=== PATIENT | male | born 1945 | race Caucasian/White ===

== ENCOUNTER → 2017-03-13 | Outpatient (CLI) | payer OTHER ==
[~2017-03-13] MED LIST: ASPCH81 PO; ATEN-173 PO; ATEN50TA8 PO; ATOR-26 PO; AUG0.05O4 TOP; BENZ100C84 PO; CHLO0.12 MT; CLOP1TAB15 PO; EZET10TA63 PO; GEMF600T3 PO; GLCSR500 PO; ISOS60TA25 PO; LANS30CA12 PO; NIAC1TAB59 PO; NTRGSL/4 UT
[2017-03-13 10:10] LABS: CHOLESTEROL/HDL RATIO 2.8
== END | disposition home or self-care (01) ==
LOC: C.LAB1850 08:20
PROVIDERS: ATTEND Internal Medicine Cardiovascular Disease
DX: E78.00 Pure hypercholesterolemia, unspecified (principal)

== ENCOUNTER 2024-02-07 18:43 | Inpatient (IN) ==
[2024-02-07 19:22] LABS: Hematocrit (blood only) 28.8 % (42.0-52.0); Hemoglobin 9.5 g/dl (14.0-18.0); Mean Corpuscular Hemoglobin 27.9 pg (25.0-34.0); Mean Corpuscular Volume 84.5 fL (80.0-100.0); Platelet Count 242 K/uL (130-400); Red Blood Count 3.41 M/uL (4.70-6.10); White Blood Count 9.85 K/ul (4.8-10.8)
[2024-02-07 19:41] LABS: Albumin Globulin Ratio 1.1 (0.9-2); Albumin Level 3.3 gm/dl (3.4-5.0); BUN Creatinine Ratio 28.2 (10-20); Bilirubin,Total 1.2 mg/dl (0.2-1.0); Creatinine Clr Calc Pharmacy 52.5 ml/min; Globulin 3.1 gm/dl (2.5-4.0); Magnesium 1.6 mg/dl (1.7-2.4); Potassium 4.8 mmol/L (3.5-5.1); Total Protein 6.4 gm/dl (6.0-8.3)
[2024-02-07 19:48] LABS: INR 1.3 (0.9-1.1); Partial Thromboplastin Ratio 1.2; Partial Thromboplastin Time 31 Seconds (21-31)
[2024-02-07 19:55] LABS: Basophils # (auto) 0.01 K/uL (0.00-0.20); Basophils % (auto) 0.1 %; Eosinophils # (auto) 0.08 K/uL (0.00-0.50); Eosinophils % (auto) 0.8 %; Immature Granulocytes # (auto) 0.05 K/uL (0.01-0.20); Immature Granulocytes % (auto) 0.5 %; Lymphocytes # (auto) 0.41 K/uL (1.20-3.40); Lymphocytes % (auto) 4.2 %; Monocytes # (auto) 0.19 K/uL (0.11-0.59); Monocytes % (auto) 1.9 %; Neutrophils # (auto) 9.11 K/uL (1.40-6.50); Neutrophils % (auto) 92.5 %
[2024-02-07 19:57] LABS: Appearance Urine Clear (Clear); Bacteria Urine Automated None Seen (None Seen); Bilirubin Urine 1+ (Negative); Blood Urine Negative (Negative); Cast Urine Automated 0-2 /lpf (0-2); Color Urine Dark Yellow; Epithelial Cell Urine Auto 0-2 /hpf (0-2); Glucose Urine UA Negative (Negative); Ketones Urine Trace (Negative); Leukocyte Esterase Urine 1+ (Negative); Nitrite Urine Negative (Negative); Protein Urine 1+ (Negative); Specific Gravity Urine 1.023 (1.000-1.030); Urobilinogen Urine Negative (Negative); WBC Urine Automated 0-5 /hpf (0-5); pH Urine 5.5 (4.5-7.5)
[2024-02-07 20:03] LABS: Troponin I High Sensitivity 771.2 pg/ml (0-20)
[2024-02-07] MEDS: SODIUM CHLORIDE 0.9% 1,000 ML IV ONE ×2 (20:22→22:08)
[2024-02-07] MEDS: methylPREDNISolone 125 MG/2 ML VIAL IV ONE (20:22)
[2024-02-07] MEDS: diphenhydrAMINE 50 MG/ML VIAL IV ONE (20:22)
[2024-02-07 20:26] LABS: Adenovirus PCR Not Detected (NotDetected); Bordetella parapertussis PCR Not Detected (NotDetected); Bordetella pertussis PCR Not Detected (NotDetected); Chlamydia pneumoniae PCR Not Detected (NotDetected); Coronavirus 229E PCR Not Detected (NotDetected); Coronavirus CoV-2 (COVID19)PCR Not Detected (NotDetected); Coronavirus HKU1 PCR Not Detected (NotDetected); Coronavirus NL63 PCR Not Detected (NotDetected); Coronavirus OC43PCR Not Detected (NotDetected); Human Metapneumovirus PCR Not Detected (NotDetected); Influenza A PCR Not Detected (NotDetected); Influenza B PCR Not Detected (NotDetected); Mycoplasma pneumoniae PCR Not Detected (NotDetected); Parainfluenza Virus 1 PCR Not Detected (NotDetected); Parainfluenza Virus 2 PCR Not Detected (NotDetected); Parainfluenza Virus 3 PCR Not Detected (NotDetected); Parainfluenza Virus 4 PCR Not Detected (NotDetected); Respiratory Syncytial VirusPCR Not Detected (NotDetected); Rhinovirus/Enterovirus PCR Not Detected (NotDetected)
[2024-02-07] MEDS: ONDANSETRON INJ 2 MG/ML 2 ML VIAL IV STA (20:36)
[2024-02-07] MEDS: ACETAMINOPHEN 1,000 MG/100 ML VIAL IV STA (20:38)
[2024-02-07] MEDS: OPTIRAY 320 100ml IV ONE (20:54)
[2024-02-07] MEDS: PIPERACILLIN/TAZOBACTAM 4.5 GM/100 ML BAG IV ONE (21:02)
--- NOTE | 2024-02-07 22:40 | CT Scan Report ---
Exam(s): CT ABDOMEN + PELVIS With Contrast IV Amt: optiray 320 94ml EXAM: CT Abdomen and Pelvis With Intravenous Contrast CLINICAL HISTORY: Reason for exam: septic, biliary stent, pancreatic CA. TECHNIQUE: Axial computed tomography images of the abdomen and pelvis with intravenous contrast. CTDI is 19 mGy and DLP is 931 mGy-cm. Automated exposure control was utilized for the study. A dose lowering technique was utilized adhering to the principles of ALARA. CONTRAST: Patient received optiray 320 94ml of IV contrast COMPARISON: CT abdomen pelvis 12/16/07. FINDINGS: Lung bases: Clear. No gross mass or pleural effusion. Liver: Innumerable hepatic hypodensities, largest 4.5 cm in the right lobe, nonspecific, probable metastatic disease. Pneumobilia, not unusual given that there is a biliary stent. No intrahepatic ductal dilatation. Gallbladder and bile ducts: Severe distended gallbladder, given biliary stent, cystic duct obstruction, acute cholecystitis or obstructed stent are not excluded. No ductal dilation. Pancreas: 3.2 cm mass of the pancreatic head, in keeping with history of pancreatic cancer. No ductal dilation, or acute pancreatitis. Spleen: Unremarkable. Adrenals: Unremarkable. Kidneys and ureters: No hydronephrosis. Stomach and bowel: Moderate, 6 cm focal wall thickening, cannot rule out obstructing mass at the hepatic flexure, axial series 3/139. Moderate fecal loaded right colon, could also be physiologic. There is also wall thickening in the distal colon, intermittent colitis is also in the differential considerations. No small bowel obstruction. Diverticulosis without diverticulitis. Appendix: Intraperitoneal space: No free air or fluid. Bones/joints: No acute fracture. Soft tissues: Fat-containing left inguinal hernia. Vasculature: No aortic aneurysm. Lymph nodes: Mildly prominent lymph nodes in the heber hepatis. Bladder: Mildly distended, wall thickening is nonspecific, may be artifact, cystitis not excluded. Reproductive: Moderate, nonspecific prostatomegaly. IMPRESSION: 1. Severe distended gallbladder, given biliary stent, cystic duct obstruction, acute cholecystitis or obstructed stent must be excluded. 2. Colonic obstruction at the hepatic flexure, concerning for an underlying mass. Cannot entirely rule out an intermittent colitis, as there is wall thickening in the distal colon. 3. Mass of the pancreatic head, hepatic metastasis, biliary stent, no CBD dilatation. Electronically signed by: Suyapa Jacobs M.D. 02/07/24 22:39 PM
--- NOTE | 2024-02-07 22:43 | XRay Report ---
Exam(s): XR CXR 1 VIEW EXAM: XR Chest, 1 View CLINICAL HISTORY: Reason for exam: Sepsis. TECHNIQUE: Frontal view of the chest. COMPARISON: Chest x-ray 02/03/24. FINDINGS: Lungs: Clear. No consolidation. Pleural space: No pneumothorax. Heart: No cardiomegaly. Mediastinum: Stable postsurgical change and atherosclerosis aortic arch. Bones/Soft Tissues: No acute abnormality. Tubes/Lines: Stable implanted catheter via the right chest, tip SVC. IMPRESSION: 1. No acute process, and no change. Electronically signed by: Suyapa Jacobs M.D. 02/07/24 22:42 PM
--- NOTE | 2024-02-08 00:24 | History & Physical Report ---
Date of Service February 08, 2024 Assessment & Plan (1) Severe sepsis: Plan: SIRS plus lactic acidosis Immunocompromised patient, history metastatic pancreatic cancer ongoing chemotherapy Possible sources: Biliary pathology, possible cholecystitis/cholangitis Aport Transient chest pain at the ER Possible ST elevation LA inferior leads on EKG ED provider in touch with securities attorney (Dr. Phillips). Presentation not true ACS as per discussion, recommend medical management for now. Feeder Operator recommends IV heparin if with further troponin elevation. hx CAD status post CABG moderate pulmonary hypertension hypertension, BP on the lower side hyperlipidemia, on statin Rx DM2 on oral medications, reasonable control as of recent hemoglobin A1c of 7.25 October 2023 Acute on chronic anemia, hemoglobin drop from baseline, no overt source of blee d, FOBT negative hx BPH past tobacco abuse PCU given borderline BP and abnormal EKG CS, Daptomycin, Zosyn Follow lactic acid response to careful IV hydration given history of valvular heart disease MRCP Re: Abnormal LFTs rule out choledocholithiasis GI consult re: abdominal pain, abnormal CT abdomen pelvis (ED provider already in touch with Dr. Montes who initially recommended transfer to tertiary center. [facility] GI specialist (Dr. Rivera) does not feel urgent transfer needed for ERCP as per communication with ED provider.) Follow troponin, TTE Anemia workup, transfuse PRBC if hemoglobin less than 8 and or for symptomatic anemia Basal bolus insulin adjusted for n.p.o. status, ISS BG goal 1 10-1 40 DVT prophylaxis. Lovenox subcu Full code Patient daughter requesting updates providers. Ms. Ebony Downing, contact #[phone]. Text document was generated using [employer] voice recognition software. It may contain grammatical or spelling errors. Kindly contact undersigned for clarification of any documentation item in question. History of Present Illness Chief Complaint: Fever, chills Primary Care Provider: Pedro Luis Bowens DO History obtained from patient, family, and records. Medical history significant for CAD status post CABG, moderate , pulmonary hypertension, hypertension, hyperlipidemia, DM2 on oral medications, chronic anemia (baseline hemoglobin 10-11), BPH, urolithiasis, past tobacco abuse. Patient has had epigastric discomfort somewhat worse with eating after outpatient EGD/EUS for pancreatic mass 3 weeks ago. 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 First dose of chemotherapy few days ago. This afternoon, patient had fever chills. Usual epigastric pain sometimes going to the chest. No cough or SOB. Denies black or bloody stools. Bilious emesis. No issues with Aport. Zosyn administered at the ER. Transient chest pain at the ER. 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 Allergies Allergy/AdvReac Type Severity Reaction Status Date / Time Iodinated Contrast Media Allergy Intermediate Rash Verified 02/03/24 12:55 levofloxacin Allergy Intermediate RASH Verified 02/03/24 12:55 lisinopril AdvReac Mild Cough Verified 02/03/24 12:56 Home Medications Medication Instructions Recorded Confirmed Type multivitamin (Multiple Vitamins 1 tab PO QPM 12/02/18 02/07/24 History tablet) atorvastatin 80 mg tablet 80 mg PO QPM 01/06/19 02/07/24 History cholecalciferol (vitamin D3) 50 2,000 units PO QAM 01/06/19 02/07/24 History mcg (2,000 unit) tablet clopidogrel 75 mg tablet 75 mg PO QAM 01/06/19 02/07/24 History ezetimibe 10 mg tablet 10 mg PO HS 01/06/19 02/07/24 History metformin 500 mg tablet 500 mg PO .COMPLEX 01/06/19 02/07/24 History nitroglycerin 0.4 mg sublingual 0.4 mg sublingual Q5M PRN Chest 01/06/19 02/07/24 History tablet Pain #1 tab ranolazine 1,000 mg 1,000 mg PO Q12H #180 tabs 01/06/19 02/07/24 History tablet,extended release,12 hr triamcinolone acetonide 0.1 % 1 appln topical BID PRN Rash 01/06/19 02/07/24 History topical cream tamsulosin 0.4 mg capsule 0.4 mg PO BID #180 caps 12/03/19 02/07/24 Rx fluticasone propionate 50 1 spray intranasal DAILY 03/16/20 02/07/24 History mcg/actuation nasal spray,suspension albuterol sulfate 90 mcg/actuation 2 inh inhalation Q6H PRN SOB 09/17/22 02/07/24 History breath activated powder inhaler atenolol 50 mg tablet 50 mg PO QAM 03/14/23 02/07/24 History pantoprazole 20 mg tablet,delayed 20 mg PO QAM 01/30/24 02/07/24 History release oxycodone-acetaminophen 5 mg-325 1 tab PO Q6H PRN pain #14 tabs 02/03/24 02/07/24 Rx mg tablet (Percocet) L.acidoph-L.rhamn-B.bifidum-B.long 1 tab PO DAILYBB 02/07/24 02/07/24 History 12.9 mg (2 billion cell) tablet, aspirin 81 mg tablet,delayed 81 mg PO QPM 02/07/24 02/07/24 History release cyanocobalamin (vitamin B-12) 1,000 mcg IM .EVERY 30 DAYS 02/07/24 02/07/24 History 1,000 mcg/mL injection solution docusate sodium 100 mg capsule 100 mg PO BID 02/07/24 02/07/24 History iron,carbonyl 65 mg-vitamin C 125 1 tab PO Q OTHER DAY 02/07/24 02/07/24 History mg tablet,delayed release (Vitron-C) isosorbide mononitrate 60 mg 120 mg PO QAM 02/07/24 02/07/24 History tablet,extended release 24 hr lidocaine-prilocaine 2.5 %-2.5 % 1 applic topical UD 02/07/24 02/07/24 History topical cream ondansetron HCl 8 mg tablet 8 mg PO Q8 PRN Nausea 02/07/24 02/07/24 History polyethylene glycol 3350 17 17 g PO DAILY 02/07/24 02/07/24 History gram/dose oral powder (Miralax) prochlorperazine maleate 10 mg 10 mg PO Q6 PRN Nausea 02/07/24 02/07/24 History tablet semaglutide 0.25 mg or 0.5 mg (2 0.5 mg subcut WK 02/07/24 02/07/24 History mg/3 mL) subcutaneous pen injector (Ozempic) Past Med/Surg History Problem List (Updated 02/08/24 @ 10:00 by Aries Montes Jr, MD) Abnormal LFTs Severe sepsis Encounter for pre-operative examination Hx of CABG 2000 > 4 vessels > [facility] > follows with Dr. Lunsford Angina pectoris chronic stable class I per cardio Aortic stenosis (Acute) CAD (coronary artery disease) (Acute) Dry skin (Acute) Enlarged prostate with lower urinary tract symptoms (LUTS) (Acute) Former smoker (Acute) GERD (gastroesophageal reflux disease) (Acute) Hypercholesterolemia (Acute) Hypertension (Acute) Nephrolithiasis (Acute) Non Q wave myocardial infarction (Acute) 2002 Shortness of breath (Acute) per pt, uses inhaler in AM and resolved Type 2 diabetes mellitus (Acute) Medical History Pancreatic cancer stage 4; now with mets Hx of renal calculi Dyspnea reason for inhaler, uses every morning Angina pectoris chronic stable class I per cardio; follows closely with [facility] Cardio Non Q wave myocardial infarction 2002; 'questionable per pt' CAD (coronary artery disease) CABG August 1999, LM and LAD stents August 2009, RCA and LAD stents September 2009 Aortic stenosis follows with Dr. Lunsford; mild-mod per 08/27/23 ECHO BPH (benign prostatic hyperplasia) GERD (gastroesophageal reflux disease) Hyperlipidemia Hypertension Type 2 diabetes mellitus Surgical History Hx of CABG 1999 > 4 vessels > [facility] > follows with Dr. Lunsford History of insertion of pancreatic stent (01/16/24) [facility] Hx of biopsy (12/2023) pancreas and liver History of left cataract surgery History of esophagogastroduodenoscopy (EGD) History of colonoscopy History of tooth extraction History of tonsillectomy H/O lithotripsy Hx of cardiac cath 2009 > 5 stents - [facility] (LM and LAD stents August 2009, RCA and LAD stents September 2009) Family History Father Myocardial infarction Other Diabetes Heart disease Social History Smoking Status: Former smoker Tobacco Type: Cigarettes Second Hand Exposure: No; Do You Dip or Chew Tobacco: No; Hx Alcohol Use: Yes Hx Substance Use: No Preferred Language: Albanian Communication Ability: Effective Sales Order Coordinator Required: No Beliefs That Will Affect Care: None marital status: Current Living Situation: Significant Other Feels Safe at Home: Yes Safety Concerns: Feels Safe At This Time Assistive Devices: Hearing Aid - Bilateral Review of Systems Review of Systems: As per HPI, all other systems reviewed and negative Physical Exam Physical Exam: GENERAL: Comfortable, pleasant, no respiratory distress SKIN: Pallor,, warm HEENT: Alopecia, pale palpebral conjunctivae, no ptosis, dry buccal mucosa NECK : Supple, no tenderness CHEST : Decreased breath sounds, no tenderness HEART : RRR, systolic murmur ABDOMEN: Some distention, epigastric tenderness RECTAL : Intact sphincter, payne stool (FOBT negative) EXTREMITIES : No LE swelling/tenderness, no other conspicuous deformities noted NEUROLOGIC : Coherent, no facial asymmetry, no other gross focality Results & Data Results & Data Vital Signs (Past 12 Hours) Vital Signs Temp Pulse Pulse Resp BP BP Pulse Ox 02/07/24 23:53 88 20 109/66 97 02/07/24 23:19 91 H 02/07/24 22:30 96 H 20 122/65 95 02/07/24 21:30 37.1 C 103 H 20 99/58 L 96 02/07/24 20:30 38.8 C H 105 H 20 108/82 98 02/07/24 19:26 02/07/24 19:26 02/07/24 19:26 106 H 22 139/70 97 02/07/24 19:25 106 H 02/07/24 18:53 37.9 C H 108 H 18 133/67 93 O2 Del Method 02/07/24 23:53 Room Air 02/07/24 23:19 02/07/24 22:30 Room Air 02/07/24 21:30 Room Air 02/07/24 20:30 Room Air 02/07/24 19:26 Room Air 02/07/24 19:26 Room Air 02/07/24 19:26 Room Air 02/07/24 19:25 02/07/24 18:53 Room Air Laboratory Results Laboratory Results WBC 9.85 K/ul (4.8-10.8) 02/07/24 19:06 RBC 3.41 M/uL (4.70-6.10) L 02/07/24 19:06 Hgb 9.5 g/dl (14.0-18.0) L 02/07/24 19:06 Hct 28.8 % (42.0-52.0) L 02/07/24 19:06 MCV 84.5 fL (80.0-100.0) 02/07/24 19: MCH 27.9 pg (25.0-34.0) 02/07/24 19:06 MCHC 33.0 g/dL (32.0-36.0) 02/07/24 19: RDW Std Deviation 43.0 fL (36.4-46.3) 02/07/24 19: RDW Coeff of Loli 14.0 % (11.5-14.5) 02/07/24 19: Plt Count 242 K/uL (130-400) 02/07/24 19:06 MPV 9.0 fL (9.4-12.4) L 02/07/24 19:06 Immature Gran % (Auto) 0.5 % 02/07/24 19:06 Neut % (Auto) 92.5 % 02/07/24 19: Lymph % (Auto) 4.2 % 02/07/24 19:06 [place] % (Auto) 1.9 % 02/07/24 19:06 Eos % (Auto) 0.8 % 02/07/24 19:06 Baso % (Auto) 0.1 % 02/07/24 19:06 Neut # (Auto) 9.11 K/uL (1.40-6.50) H 02/07/24 19:06 Lymph # (Auto) 0.41 K/uL (1.20-3.40) L 02/07/24 19:06 [place] # (Auto) 0.19 K/uL (0.11-0.59) 02/07/24 19:06 Eos # (Auto) 0.08 K/uL (0.00-0.50) 02/07/24 19:06 Baso # (Auto) 0.01 K/uL (0.00-0.20) 02/07/24 19:06 Immature Gran # (Auto) 0.05 K/uL (0.01-0.20) 02/07/24 19:06 PT 14.0 Seconds (9.0-12.0) H 02/07/24 19:06 INR 1.3 (0.9-1.1) H 02/07/24 19:06 APTT 31 Seconds (21-31) 02/07/24 19:06 PTT Ratio 1.2 02/07/24 19:06 Sodium 135 mmol/L (136-145) L 02/07/24 19:06 Potassium 4.8 mmol/L (3.5-5.1) 02/07/24 19:06 Chloride 99 mmol/L (98-107) 02/07/24 19:06 Carbon Dioxide 26 mmol/L (21-32) 02/07/24 19:06 Anion Gap 10 (3-11) 02/07/24 19:06 BUN 29 mg/dl (6-23) H 02/07/24 19:06 Creatinine 1.03 mg/dl (0.6-1.4) 02/07/24 19:06 Est Cr Clr Drug Dosing 52.5 ml/min 02/07/24 19:06 eGFR 73.89 02/07/24 19:06 BUN/Creatinine Ratio 28.2 (10-20) H 02/07/24 19:06 Glucose 155 mg/dl (70-99(Fasting)) H 02/07/24 19:06 Lactate 2.6 mmol/L (0.4-2.0) H* 02/07/24 21:35 Calcium 10.0 mg/dl (8.6-10.3) 02/07/24 19:06 Magnesium 1.6 mg/dl (1.7-2.4) L 02/07/24 19:06 Total Bilirubin 1.2 mg/dl (0.2-1.0) H 02/07/24 19:06 AST 65 U/L (13-39) H 02/07/24 19:06 ALT 43 U/L (7-52) 02/07/24 19:06 Alkaline Phosphatase 448 U/L (34-104) H 02/07/24 19:06 Troponin I High Sens 566.1 pg/ml (0-20) H* D 02/07/24 21:35 Total Protein 6.4 gm/dl (6.0-8.3) 02/07/24 19:06 Albumin 3.3 gm/dl (3.4-5.0) L 02/07/24 19:06 Globulin 3.1 gm/dl (2.5-4.0) 02/07/24 19:06 Albumin/Globulin Ratio 1.1 (0.9-2) 02/07/24 19:06 Procalcitonin 0.40 ng/ml (0-0.5) 02/07/24 19:06 Urine Color Dark Yellow 02/07/24 19:45 Urine Appearance Clear (Clear) 02/07/24 19:45 Urine pH 5.5 (4.5-7.5) 02/07/24 19:45 Ur Specific [place] 1.023 (1.000-1.030) 02/07/24 19:45 Urine Protein 1+ (Negative) H 02/07/24 19:45 Urine Glucose (UA) Negative (Negative) 02/07/24 19:45 Urine Ketones Trace (Negative) H 02/07/24 19:45 Urine Blood Negative (Negative) 02/07/24 19:45 Urine Nitrite Negative (Negative) 02/07/24 19:45 Urine Bilirubin 1+ (Negative) H 02/07/24 19:45 Urine Urobilinogen Negative (Negative) 02/07/24 19:45 Ur Leukocyte Esterase 1+ (Negative) H 02/07/24 19:45 Urine WBC (Auto) 0-5 /hpf (0-5) 02/07/24 19:45 Urine RBC (Auto) 3-5 /hpf (0-2) H 02/07/24 19:45 U Hyaline Cast (Auto) 0-2 /lpf (0-2) 02/07/24 19:45 U Epithel Cells (Auto) 0-2 /hpf (0-2) 02/07/24 19:45 Urine Bacteria (Auto) None Seen (None Seen) 02/07/24 19:45 Adenovirus (PCR) Not Detected (NotDetected) 02/07/24 19:00 B. pertussis DNA (PCR) Not Detected (NotDetected) 02/07/24 19:00 B.parapertussis DNA PCR Not Detected (NotDetected) 02/07/24 19:00 C. pneumoniae DNA (PCR) Not Detected (NotDetected) 02/07/24 19:00 Coronavirus OC43 (PCR) Not Detected (NotDetected) 02/07/24 19:00 Coronavirus HKU1 (PCR) Not Detected (NotDetected) 02/07/24 19:00 Coronavirus 229E (PCR) Not Detected (NotDetected) 02/07/24 19:00 SARS-CoV-2 (PCR) Not Detected (NotDetected) 02/07/24 19:00 Coronavirus NL63 (PCR) Not Detected (NotDetected) 02/07/24 19:00 Human Metapneumovir PCR Not Detected (NotDetected) 02/07/24 19:00 Influenza Type A (PCR) Not Detected (NotDetected) 02/07/24 19:00 Influenza Type B (PCR) Not Detected (NotDetected) 02/07/24 19:00 M. pneumoniae (PCR) Not Detected (NotDetected) 02/07/24 19:00 Parainfluenza 1 (PCR) Not Detected (NotDetected) 02/07/24 19:00 Parainfluenza 2 (PCR) Not Detected (NotDetected) 02/07/24 19:00 Parainfluenza 3 (PCR) Not Detected (NotDetected) 02/07/24 19:00 Parainfluenza 4 (PCR) Not Detected (NotDetected) 02/07/24 19:00 RSV (PCR) Not Detected (NotDetected) 02/07/24 19:00 Entero/Rhino (PCR) Not Detected (NotDetected) 02/07/24 19:00 Impressions Chest X-Ray 02/07/24 18:57 Exam(s): XR CXR 1 VIEW EXAM: XR Chest, 1 View CLINICAL HISTORY: Reason for exam: Sepsis. TECHNIQUE: Frontal view of the chest. COMPARISON: Chest x-ray 02/03/24. FINDINGS: Lungs: Clear. No consolidation. Pleural space: No pneumothorax. Heart: No cardiomegaly. Mediastinum: Stable postsurgical change and atherosclerosis aortic arch. Bones/Soft Tissues: No acute abnormality. Tubes/Lines: Stable implanted catheter via the right chest, tip SVC. IMPRESSION: 1. No acute process, and no change. Electronically signed by: Suyapa Jacobs M.D. 02/07/24 22:42 PM Abdomen/Pelvis CT 02/07/24 20:10 Exam(s): CT ABDOMEN + PELVIS With Contrast IV Amt: optiray 320 94ml EXAM: CT Abdomen and Pelvis With Intravenous Contrast CLINICAL HISTORY: Reason for exam: septic, biliary stent, pancreatic CA. TECHNIQUE: Axial computed tomography images of the abdomen and pelvis with intravenous contrast. CTDI is 19 mGy and DLP is 931 mGy-cm. Automated exposure control was utilized for the study. A dose lowering technique was utilized adhering to the principles of ALARA. CONTRAST: Patient received optiray 320 94ml of IV contrast COMPARISON: CT abdomen pelvis 12/16/07. FINDINGS: Lung bases: Clear. No gross mass or pleural effusion. Liver: Innumerable hepatic hypodensities, largest 4.5 cm in the right lobe, nonspecific, probable metastatic disease. Pneumobilia, not unusual given that there is a biliary stent. No intrahepatic ductal dilatation. Gallbladder and bile ducts: Severe distended gallbladder, given biliary stent, cystic duct obstruction, acute cholecystitis or obstructed stent are not excluded. No ductal dilation. Pancreas: 3.2 cm mass of the pancreatic head, in keeping with history of pancreatic cancer. No ductal dilation, or acute pancreatitis. Spleen: Unremarkable. Adrenals: Unremarkable. Kidneys and ureters: No hydronephrosis. Stomach and bowel: Moderate, 6 cm focal wall thickening, cannot rule out obstructing mass at the hepatic flexure, axial series 3/139. Moderate fecal loaded right colon, could also be physiologic. There is also wall thickening in the distal colon, intermittent colitis is also in the differential considerations. No small bowel obstruction. Diverticulosis without diverticulitis. Appendix: Intraperitoneal space: No free air or fluid. Bones/joints: No acute fracture. Soft tissues: Fat-containing left inguinal hernia. Vasculature: No aortic aneurysm. Lymph nodes: Mildly prominent lymph nodes in the heber hepatis. Bladder: Mildly distended, wall thickening is nonspecific, may be artifact, cystitis not excluded. Reproductive: Moderate, nonspecific prostatomegaly. IMPRESSION: 1. Severe distended gallbladder, given biliary stent, cystic duct obstruction, acute cholecystitis or obstructed stent must be excluded. 2. Colonic obstruction at the hepatic flexure, concerning for an underlying mass. Cannot entirely rule out an intermittent colitis, as there is wall thickening in the distal colon. 3. Mass of the pancreatic head, hepatic metastasis, biliary stent, no CBD dilatation. Electronically signed by: Suyapa Jacobs M.D. 02/07/24 22:39 PM Diagnostic Findings EKG as per my interpretation : Rate 110, sinus tachycardia, normal axis, incomplete RBBB, nonspecific T wave abnormalities
[2024-02-08] MEDS: DAPTOmycin 375 MG in SYRINGE 0 ML IV STA (00:39)
[2024-02-08] MEDS: LACTATED RINGER'S 500 ML IV STA (00:50)
[2024-02-08] MEDS: MAGNESIUM SULFATE / D5W 1 GM/100 ML BAG IV STA (00:53)
[2024-02-08] MEDS ORDERED: MoRPHine SULFATE 2 MG/ML CARP IV PRN (01:09)
[2024-02-08] MEDS ORDERED: PROMETHAZINE 6.25 MG/50.25 ML BAG IV PRN (01:09)
[2024-02-08] MEDS ORDERED: LORazepam 0.5 MG TAB PO PRN (01:09)
[2024-02-08] MEDS ORDERED: NON-FORMULARY MEDICATION (Iron,Carbonyl-Vitamin C [Vitron-C] 65 mg iron- 125 mg Tablet,Del PO SCH (01:15)
[2024-02-08] MEDS ORDERED: NITROGLYCERIN SL 0.4 MG/TAB TAB SL PRN (01:34)
[2024-02-08] MEDS ORDERED: CARBOHYDRATES FOR HYPOGLYCEMIA PO PRN (01:54)
[2024-02-08] MEDS ORDERED: GLUCOSE 10 TAB/TUBE PO PRN (01:54)
[2024-02-08] MEDS ORDERED: DEXTROSE 50% 50 ML SYRINGE IV PRN (01:54)
[2024-02-08] MEDS ORDERED: GLUCAGON FOR INJ 1 MG VIAL SQ PRN (01:54)
[2024-02-08] MEDS ORDERED: GLUCOSE 40% GEL 15 GM TUBE PO PRN (01:54)
[2024-02-08] MEDS ORDERED: Nursing to Pharmacy Communication SCH ×2 (02:00→20:00)
[2024-02-08] MEDS: INSULIN ASPART PER UNIT CHARGE SC SCH ×2 (02:07→20:25)
[2024-02-08] MEDS: PIPERACILLIN/TAZOBACTAM 4.5 GM/100 ML BAG IV SCH (02:19)
--- NOTE | 2024-02-08 02:53 | Emergency Department Note ---
Impression & Plan Acute non-ST elevation myocardial infarction (NSTEMI), Pancreatic cancer metastasized to liver, Fever ED Provider Note CHIEF COMPLAINT: Fever HISTORY OF PRESENT ILLNESS: This 78-year-old male patient past medical history of aortic stenosis, CAD status post CABG, coronary stents, hypertension, type 2 diabetes, recent diagnosis of metastatic pancreatic cancer status post biliary stent and 1 round of chemotherapy yesterday presents to the emergency department with complaints of a fever to 101.5 degrees. Patient complains of some epigastric abdominal pain, but he feels this is stable over the last several weeks. Patient denies any chest pain, coughing, sore throat or nasal congestion. He has not had any vomiting or diarrhea. His family states he has not been eating or drinking much recently. His procedure was performed at [facility] REVIEW OF SYSTEMS: A review of systems was performed with positives and pertinent negatives listed in the history of present illness. 10 systems were reviewed and are otherwise negative. ALLERGIES: see below MEDICATIONS: see below PMH: see below SOCIAL HISTORY: see below DDx: Obstructing biliary stent, cholangitis, pancreatitis, acute cholecystitis, bowel obstruction, peptic ulcer disease, among others. PHYSICAL EXAM: Vital signs reviewed. General: Chronically ill-appearing 78-year-old male, in no significant distress. HEENT: No scleral icterus, PERRLA, neck supple. moist mucous membranes Cardiovascular: Regular rate and rhythm, no extra sounds. systolic ejection murmur Pulmonary: Clear to auscultation bilaterally, normal work of breathing. Abdomen: Soft, tender to palpation in the epigastric region,nondistended, positive bowel sounds. Musculoskeletal: Atraumatic, minimal peripheral edema. Neurologic: Patient awake alert and oriented x 3, speech is clear Skin: Warm, dry, no rash EMERGENCY DEPARTMENT COURSE/MDM: this patient was evaluated and appeared to be in no significant distress. IV access was obtained and laboratory work was drawn. The patient was placed on the hall monitor noted to be in a sinus tachycardia. Patient's laboratory work reveals a normal WBC, elevated lactate and elevated high-sensitivity troponin at 770. Procalcitonin is normal. LFTs are fairly normal. EKG reveals some inferior ST changes. patient was hydrated with 1 L of normal saline solution, given IV Zosyn after blood cultures were obtained. Urinalysis is clear. I did speak with Dr. Phillips of cardiology as the patient had an episode of chest pain in the emergency department. His symptoms resolved fairly quickly without intervention. EKG does reveal some inferior ST changes. Dr. Phillips felt that in the setting of sepsis, the patient should be medically managed. CT imaging of the abdomen pelvis was performed and reveals a distended gallbladder, stating that it is impossible to exclude biliary obstruction. I did speak with [facility] gastroenterology Dr. Rivera who felt the patient did not require urgent ERCP. Case was discussed with Dr. Varela of the hospitalist service who requested consultation with Dr. Montes of our gastroenterology service. He is aware of the patient being admitted to the hospital. Patient was informed of the findings and plan and agreed. MONITORING: An order for cardiac monitoring was placed and the patient is noted to be in a sinus tachycardia at 104 beats per minute. RADIOLOGY: chest x-ray to my interpretation reveals no evidence of focal lung consolidation or failure, otherwise defer to radiology's over read. CT imaging of the abdomen and pelvis: IMPRESSION: 1. Severe distended gallbladder, given biliary stent, cystic duct obstruction, acute cholecystitis or obstructed stent must be excluded. 2. Colonic obstruction at the hepatic flexure, concerning for an underlying mass. Cannot entirely rule out an intermittent colitis, as there is wall thickening in the distal colon. 3. Mass of the pancreatic head, hepatic metastasis, biliary stent, no CBD dilatation. EKG: to my interpretation reveals a sinus tachycardia at 110 bpm, incomplete right bundle branch block, previous inferior infarct, QTc of 430. DISPOSITION:Admission Past Med/Surg History Problem List (Updated 02/09/24 @ 00:59 by Brittany Hamilton MD) Fever (Acute) Pancreatic cancer metastasized to liver (Acute) Acute non-ST elevation myocardial infarction (NSTEMI) (Acute) Abnormal LFTs Severe sepsis Encounter for pre-operative examination Hx of CABG 1999 > 4 vessels > [facility] > follows with Dr. Lunsford Angina pectoris chronic stable class I per cardio Aortic stenosis (Acute) CAD (coronary artery disease) (Acute) Dry skin (Acute) Enlarged prostate with lower urinary tract symptoms (LUTS) (Acute) Former smoker (Acute) GERD (gastroesophageal reflux disease) (Acute) Hypercholesterolemia (Acute) Hypertension (Acute) Nephrolithiasis (Acute) Non Q wave myocardial infarction (Acute) 2002 Shortness of breath (Acute) per pt, uses inhaler in AM and resolved Type 2 diabetes mellitus (Acute) Medical History Pancreatic cancer stage 4; now with mets Hx of renal calculi Dyspnea reason for inhaler, uses every morning Angina pectoris chronic stable class I per cardio; follows closely with [facility] Cardio Non Q wave myocardial infarction 2002; 'questionable per pt' CAD (coronary artery disease) CABG August 1999, LM and LAD stents August 2009, RCA and LAD stents September 2009 Aortic stenosis follows with Dr. Lunsford; mild-mod per 08/27/23 ECHO BPH (benign prostatic hyperplasia) GERD (gastroesophageal reflux disease) Hyperlipidemia Hypertension Type 2 diabetes mellitus Surgical History Hx of CABG 1999 > 4 vessels > [facility] > follows with Dr. Lunsford History of insertion of pancreatic stent (01/16/24) [facility] Hx of biopsy (12/2023) pancreas and liver History of left cataract surgery History of esophagogastroduodenoscopy (EGD) History of colonoscopy History of tooth extraction History of tonsillectomy H/O lithotripsy Hx of cardiac cath 2009 > 5 stents - [facility] (LM and LAD stents August 2009, RCA and LAD stents September 2009) Family History Father Myocardial infarction Other Diabetes Heart disease Social History Smoking Status: Former smoker Tobacco Type: Cigarettes Second Hand Exposure: No; Do You Dip or Chew Tobacco: No; Hx Alcohol Use: Yes Hx Substance Use: No Preferred Language: Yemeni Communication Ability: Effective Vice President Financial Required: No Beliefs That Will Affect Care: None marital status: Current Living Situation: Significant Other Feels Safe at Home: Yes Safety Concerns: Feels Safe At This Time Assistive Devices: Hearing Aid - Bilateral Allergies Allergies Allergy/AdvReac Type Severity Reaction Status Date / Time Iodinated Contrast Media Allergy Intermediate Rash Verified 02/03/24 12:55 levofloxacin Allergy Intermediate RASH Verified 02/03/24 12:55 lisinopril AdvReac Mild Cough Verified 02/03/24 12:56 Home Meds Home Medications Medication Instructions Recorded Confirmed multivitamin (Multiple Vitamins 1 tab PO QPM 12/02/18 02/07/24 tablet) atorvastatin 80 mg tablet 80 mg PO QPM 01/06/19 02/07/24 cholecalciferol (vitamin D3) 50 2,000 units PO QAM 01/06/19 02/07/24 mcg (2,000 unit) tablet clopidogrel 75 mg tablet 75 mg PO QAM 01/06/19 02/07/24 ezetimibe 10 mg tablet 10 mg PO HS 01/06/19 02/07/24 metformin 500 mg tablet 500 mg PO .COMPLEX 01/06/19 02/07/24 nitroglycerin 0.4 mg sublingual 0.4 mg sublingual Q5M PRN Chest 01/06/19 02/07/24 tablet Pain #1 tab ranolazine 1,000 mg 1,000 mg PO Q12H #180 tabs 01/06/19 02/07/24 tablet,extended release,12 hr triamcinolone acetonide 0.1 % 1 appln topical BID PRN Rash 01/06/19 02/07/24 topical cream fluticasone propionate 50 1 spray intranasal DAILY 03/16/20 02/07/24 mcg/actuation nasal spray,suspension albuterol sulfate 90 mcg/actuation 2 inh inhalation Q6H PRN SOB 09/17/22 02/07/24 breath activated powder inhaler atenolol 50 mg tablet 50 mg PO QAM 03/14/23 02/07/24 pantoprazole 20 mg tablet,delayed 20 mg PO QAM 01/30/24 02/07/24 release L.acidoph-L.rhamn-B.bifidum-B.long 1 tab PO DAILYBB 02/07/24 02/07/24 12.9 mg (2 billion cell) tabletDR aspirin 81 mg tablet,delayed 81 mg PO QPM 02/07/24 02/07/24 release cyanocobalamin (vitamin B-12) 1,000 mcg IM .EVERY 30 DAYS 02/07/24 02/07/24 1,000 mcg/mL injection solution docusate sodium 100 mg capsule 100 mg PO BID 02/07/24 02/07/24 iron,carbonyl 65 mg-vitamin C 125 1 tab PO Q OTHER DAY 02/07/24 02/07/24 mg tablet,delayed release (Vitron-C) isosorbide mononitrate 60 mg 120 mg PO QAM 02/07/24 02/07/24 tablet,extended release 24 hr lidocaine-prilocaine 2.5 %-2.5 % 1 applic topical UD 02/07/24 02/07/24 topical cream ondansetron HCl 8 mg tablet 8 mg PO Q8 PRN Nausea 02/07/24 02/07/24 polyethylene glycol 3350 17 17 g PO DAILY 02/07/24 02/07/24 gram/dose oral powder (Miralax) prochlorperazine maleate 10 mg 10 mg PO Q6 PRN Nausea 02/07/24 02/07/24 tablet semaglutide 0.25 mg or 0.5 mg (2 0.5 mg subcut WK 02/07/24 02/07/24 mg/3 mL) subcutaneous pen injector (Ozempic) Previous Rx's Medication Instructions Recorded tamsulosin 0.4 mg capsule 0.4 mg PO BID #180 caps 12/03/19 oxycodone-acetaminophen 5 mg-325 1 tab PO Q6H PRN pain #14 tabs 02/03/24 mg tablet (Percocet) Results & Data (ED) Vital Signs Vital Signs - 24 hr 02/07/24 18:53 02/07/24 19:25 02/07/24 19:26 Temperature 37.9 C H Temperature Source Oral Pulse Rate 108 H 106 H Pulse Rate [Apical] 106 H Pulse Rhythm [Apical] Regular Pulse Strength [Apical] Normal Respiratory Rate 18 22 Respiratory Effort / Characteristics Non-Labored Spontaneous Non-Labored Respiratory Depth Normal Normal Respiratory Pattern Regular Regular Blood Pressure 133/67 Blood Pressure [Left Arm] 139/70 Blood Pressure Mean 89 Blood Pressure Mean [Left Arm] 93 Blood Pressure Position [Left Arm] Pulse Oximetry 93 97 Oxygen Delivery Method Room Air Room Air Sepsis Recent Fever Within 48 Hours Yes Sepsis New/Unexplained Change in Mental Status No Sepsis Action Taken by Nursing No Action Required 02/07/24 19:26 02/07/24 19:26 02/07/24 20:30 Temperature 38.8 C H Temperature Source Oral Pulse Rate Pulse Rate [Apical] 105 H Pulse Rhythm [Apical] Regular Pulse Strength [Apical] Normal Respiratory Rate 20 Respiratory Effort / Characteristics Non-Labored Respiratory Depth Normal Respiratory Pattern Blood Pressure Blood Pressure [Left Arm] 108/82 Blood Pressure Mean Blood Pressure Mean [Left Arm] 90 Blood Pressure Position [Left Arm] Pulse Oximetry 98 Oxygen Delivery Method Room Air Room Air Room Air Sepsis Recent Fever Within 48 Hours Sepsis New/Unexplained Change in Mental Status Sepsis Action Taken by Nursing 02/07/24 21:30 02/07/24 22:30 02/07/24 23:19 Temperature 37.1 C Temperature Source Oral Pulse Rate 91 H Pulse Rate [Apical] 103 H 96 H Pulse Rhythm [Apical] Regular Regular Pulse Strength [Apical] Normal Respiratory Rate 20 20 Respiratory Effort / Characteristics Non-Labored Non-Labored Respiratory Depth Normal Normal Respiratory Pattern Regular Blood Pressure Blood Pressure [Left Arm] 99/58 L 122/65 Blood Pressure Mean Blood Pressure Mean [Left Arm] 71 84 Blood Pressure Position [Left Arm] Pulse Oximetry 96 95 Oxygen Delivery Method Room Air Room Air Sepsis Recent Fever Within 48 Hours Sepsis New/Unexplained Change in Mental Status Sepsis Action Taken by Nursing 02/07/24 23:53 Temperature Temperature Source Pulse Rate Pulse Rate [Apical] 88 Pulse Rhythm [Apical] Regular Pulse Strength [Apical] Normal Respiratory Rate 20 Respiratory Effort / Characteristics Non-Labored Spontaneous Respiratory Depth Normal Respiratory Pattern Regular Blood Pressure Blood Pressure [Left Arm] 109/66 Blood Pressure Mean Blood Pressure Mean [Left Arm] 80 Blood Pressure Position [Left Arm] Lying Pulse Oximetry 97 Oxygen Delivery Method Room Air Sepsis Recent Fever Within 48 Hours Sepsis New/Unexplained Change in Mental Status Sepsis Action Taken by Long Term Medications Current Medication List: was personally reviewed by me Laboratory Data Attestation: I reviewed the patient's lab results. 02/08/24 10:48 02/08/24 03:18 Lab Results 02/07/24 02/07/24 02/07/24 Range/Units 19:00 19:06 19:45 WBC 9.85 (4.8-10.8) K/ul RBC 3.41 L (4.70-6.10) M/uL Hgb 9.5 L (14.0-18.0) g/dl Hct 28.8 L (42.0-52.0) % MCV 84.5 (80.0-100.0) fL MCH 27.9 (25.0-34.0) pg MCHC 33.0 (32.0-36.0) g/dL RDW Std Deviation 43.0 (36.4-46.3) fL RDW Coeff of Loli 14.0 (11.5-14.5) % Plt Count 242 (130-400) K/uL MPV 9.0 L (9.4-12.4) fL Immature Gran % (Auto) 0.5 % Neut % (Auto) 92.5 % Lymph % (Auto) 4.2 % Liberty % (Auto) 1.9 % Eos % (Auto) 0.8 % Baso % (Auto) 0.1 % Neut # (Auto) 9.11 H (1.40-6.50) K/uL Lymph # (Auto) 0.41 L (1.20-3.40) K/uL Liberty # (Auto) 0.19 (0.11-0.59) K/uL Eos # (Auto) 0.08 (0.00-0.50) K/uL Baso # (Auto) 0.01 (0.00-0.20) K/uL Immature Gran # (Auto) 0.05 (0.01-0.20) K/uL Hyposegmented Neuts 2+ PT 14.0 H (9.0-12.0) Seconds INR 1.3 H (0.9-1.1) APTT 31 (21-31) Seconds PTT Ratio 1.2 Sodium 135 L (136-145) mmol/L Potassium 4.8 (3.5-5.1) mmol/L Chloride 99 (98-107) mmol/L Carbon Dioxide 26 (21-32) mmol/L Anion Gap 10 (3-11) BUN 29 H (6-23) mg/dl Creatinine 1.03 (0.6-1.4) mg/dl Est Cr Clr Drug Dosing 52.5 ml/min eGFR 73.89 BUN/Creatinine Ratio 28.2 H (10-20) Glucose 155 H (70-99(Fasting)) mg/dl Lactate 2.7 H* (0.4-2.0) mmol/L Calcium 10.0 (8.6-10.3) mg/dl Magnesium 1.6 L (1.7-2.4) mg/dl Total Bilirubin 1.2 H (0.2-1.0) mg/dl AST 65 H (13-39) U/L ALT 43 (7-52) U/L Alkaline Phosphatase 448 H (34-104) U/L Troponin I High Sens 771.2 H* (0-20) pg/ml Total Protein 6.4 (6.0-8.3) gm/dl Albumin 3.3 L (3.4-5.0) gm/dl Globulin 3.1 (2.5-4.0) gm/dl Albumin/Globulin Ratio 1.1 (0.9-2) Procalcitonin 0.40 (0-0.5) ng/ml Urine Color Dark Yellow Urine Appearance Clear (Clear) Urine pH 5.5 (4.5-7.5) Ur Specific [place] 1.023 (1.000-1.030) Urine Protein 1+ H (Negative) Urine Glucose (UA) Negative (Negative) Urine Ketones Trace H (Negative) Urine Blood Negative (Negative) Urine Nitrite Negative (Negative) Urine Bilirubin 1+ H (Negative) Urine Urobilinogen Negative (Negative) Ur Leukocyte Esterase 1+ H (Negative) Urine WBC (Auto) 0-5 (0-5) /hpf Urine RBC (Auto) 3-5 H (0-2) /hpf U Hyaline Cast (Auto) 0-2 (0-2) /lpf U Epithel Cells (Auto) 0-2 (0-2) /hpf Urine Bacteria (Auto) None Seen (None Seen) Adenovirus (PCR) Not Detected (NotDetected) B. pertussis DNA (PCR) Not Detected (NotDetected) B.parapertussis DNA PCR Not Detected (NotDetected) C. pneumoniae DNA (PCR) Not Detected (NotDetected) Coronavirus OC43 (PCR) Not Detected (NotDetected) Coronavirus HKU1 (PCR) Not Detected (NotDetected) Coronavirus 229E (PCR) Not Detected (NotDetected) SARS-CoV-2 (PCR) Not Detected (NotDetected) Coronavirus NL63 (PCR) Not Detected (NotDetected) Human Metapneumovir PCR Not Detected (NotDetected) Influenza Type A (PCR) Not Detected (NotDetected) Influenza Type B (PCR) Not Detected (NotDetected) M. pneumoniae (PCR) Not Detected (NotDetected) Parainfluenza 1 (PCR) Not Detected (NotDetected) Parainfluenza 2 (PCR) Not Detected (NotDetected) Parainfluenza 3 (PCR) Not Detected (NotDetected) Parainfluenza 4 (PCR) Not Detected (NotDetected) RSV (PCR) Not Detected (NotDetected) Entero/Rhino (PCR) Not Detected (NotDetected) 02/07/24 Range/Units 21:35 WBC (4.8-10.8) K/ul RBC (4.70-6.10) M/uL Hgb (14.0-18.0) g/dl Hct (42.0-52.0) % MCV (80.0-100.0) fL MCH (25.0-34.0) pg MCHC (32.0-36.0) g/dL RDW Std Deviation (36.4-46.3) fL RDW Coeff of Loli (11.5-14.5) % Plt Count (130-400) K/uL MPV (9.4-12.4) fL Immature Gran % (Auto) % Neut % (Auto) % Lymph % (Auto) % Liberty % (Auto) % Eos % (Auto) % Baso % (Auto) % Neut # (Auto) (1.40-6.50) K/uL Lymph # (Auto) (1.20-3.40) K/uL Liberty # (Auto) (0.11-0.59) K/uL Eos # (Auto) (0.00-0.50) K/uL Baso # (Auto) (0.00-0.20) K/uL Immature Gran # (Auto) (0.01-0.20) K/uL Hyposegmented Neuts PT (9.0-12.0) Seconds INR (0.9-1.1) APTT (21-31) Seconds PTT Ratio Sodium (136-145) mmol/L Potassium (3.5-5.1) mmol/L Chloride (98-107) mmol/L Carbon Dioxide (21-32) mmol/L Anion Gap (3-11) BUN (6-23) mg/dl Creatinine (0.6-1.4) mg/dl Est Cr Clr Drug Dosing ml/min eGFR BUN/Creatinine Ratio (10-20) Glucose (70-99(Fasting)) mg/dl Lactate 2.6 H* (0.4-2.0) mmol/L Calcium (8.6-10.3) mg/dl Magnesium (1.7-2.4) mg/dl Total Bilirubin (0.2-1.0) mg/dl AST (13-39) U/L ALT (7-52) U/L Alkaline Phosphatase (34-104) U/L Troponin I High Sens 566.1 H* D (0-20) pg/ml Total Protein (6.0-8.3) gm/dl Albumin (3.4-5.0) gm/dl Globulin (2.5-4.0) gm/dl Albumin/Globulin Ratio (0.9-2) Procalcitonin (0-0.5) ng/ml Urine Color Urine Appearance (Clear) Urine pH (4.5-7.5) Ur Specific [place] (1.000-1.030) Urine Protein (Negative) Urine Glucose (UA) (Negative) Urine Ketones (Negative) Urine Blood (Negative) Urine Nitrite (Negative) Urine Bilirubin (Negative) Urine Urobilinogen (Negative) Ur Leukocyte Esterase (Negative) Urine WBC (Auto) (0-5) /hpf Urine RBC (Auto) (0-2) /hpf U Hyaline Cast (Auto) (0-2) /lpf U Epithel Cells (Auto) (0-2) /hpf Urine Bacteria (Auto) (None Seen) Adenovirus (PCR) (NotDetected) B. pertussis DNA (PCR) (NotDetected) B.parapertussis DNA PCR (NotDetected) C. pneumoniae DNA (PCR) (NotDetected) Coronavirus OC43 (PCR) (NotDetected) Coronavirus HKU1 (PCR) (NotDetected) Coronavirus 229E (PCR) (NotDetected) SARS-CoV-2 (PCR) (NotDetected) Coronavirus NL63 (PCR) (NotDetected) Human Metapneumovir PCR (NotDetected) Influenza Type A (PCR) (NotDetected) Influenza Type B (PCR) (NotDetected) M. pneumoniae (PCR) (NotDetected) Parainfluenza 1 (PCR) (NotDetected) Parainfluenza 2 (PCR) (NotDetected) Parainfluenza 3 (PCR) (NotDetected) Parainfluenza 4 (PCR) (NotDetected) RSV (PCR) (NotDetected) Entero/Rhino (PCR) (NotDetected) Administered Medications Aspirin (Aspirin 81 Mg Ectab) 81 mg PO QPM ALESSANDRO Stop: 03/09/24 20:59 Last Admin: 02/08/24 20:23 Dose: 81 mg Documented By: YOLANDA Atenolol (Atenolol 25 Mg Tablet) 25 mg PO QAM ALESSANDRO Stop: 03/09/24 08:59 Last Admin: 02/08/24 09:29 Dose: 25 mg Documented By: JOE Benzocaine (Benzocaine 20% (Orajel) 11.9 Gm Tube) 1 appln MT QID PRN PRN Reason: oral cavity pain Stop: 03/09/24 02:42 Last Admin: 02/08/24 05:49 Dose: 1 appln Documented By: YOLANDA Docusate Sodium (Docusate Sodium 100 Mg Cap) 100 mg PO BID ALESSANDRO Stop: 03/09/24 08:59 Last Admin: 02/08/24 20:25 Dose: Not Given [place]ed By: [facility] [place]: 02/08/24 09:29 Dose: 100 mg Documented By: JOE Ezetimibe (Ezetimibe 10 Mg Tab) 10 mg PO HS [facility] Stop: 03/09/24 20:59 Last Admin: 02/08/24 20:23 Dose: 10 mg Documented By: YOLANDA Enoxaparin Sodium (Enoxaparin Inj 40 Mg/0.4 Ml Syr) 40 mg SQ QAM ALESSANDRO Stop: 03/09/24 08:59 Last Admin: 02/08/24 09:30 Dose: 40 mg Documented By: JOE Fluticasone Propionate (Fluticasone Propionate Na Spr 16 Gm Btl) 1 sprays NA DAILY ALESSANDRO Stop: 03/09/24 08:59 Last Admin: 02/08/24 09:31 Dose: 1 sprays Documented By: JOE Daptomycin 375 mg/ Syringe 7.5 mls @ 3.75 mls/min IV Q24H [facility]; Protocol Stop: 02/11/24 00:00 Last Admin: 02/08/24 23:43 Dose: 3.75 mls/min Documented By: YOLANDA Piperacillin Sod/Tazobactam Sod (Zosyn) 4.5 gm in 100 mls @ 25 mls/hr IV Q8H ALESSANDRO; Protocol Stop: 02/18/24 01:59 Last Infusion: 02/08/24 22:15 Dose: Infused Documented By: Admin: 02/08/24 18:09 Dose: 25 mls/hr Documented By: Infusion: 02/08/24 15:43 Dose: Infused Documented By: Admin: 02/08/24 10:17 Dose: 25 mls/hr Documented By: Infusion: 02/08/24 05:43 Dose: Infused Documented By: Admin: 02/08/24 02:19 Dose: 25 mls/hr Documented By: YOLANDA Insulin Aspart (Insulin Aspart Per Unit Charge) 0 units SC ACHS ALESSANDRO Stop: 03/09/24 20:59 Last Admin: 02/08/24 20:25 Dose: 6 units Documented By: YOLANDA Co-signed By: SG Insulin Glargine (Lantus Per Unit Charge) 5 units SQ DAILY ALESSANDRO Stop: 03/09/24 04:14 Last Admin: 02/08/24 04:32 Dose: 5 units Documented By: [facility] Co-signed By: ABEL Isosorbide Mononitrate (Isosorbide [place] Extended Rel 60 Mg Tabcr) 120 mg PO QAM ALESSANDRO Stop: 03/09/24 08:59 Last Admin: 02/08/24 09:29 Dose: 120 mg Documented By: JOE Multivitamins (Multivitamin Tab) 1 tab PO QPM ALESSANDRO Stop: 03/09/24 20:59 Last Admin: 02/08/24 20:23 Dose: 1 tab Documented By: YOLANDA Pantoprazole Sodium (Pantoprazole 40 Mg Tab) 40 mg PO QAM ALESSANDRO Stop: 03/09/24 08:59 Last Admin: 02/08/24 09:29 Dose: 40 mg Documented By: JOE Polyethylene Glycol (Polyethylene (Miralax) 17 Gm Pack) 17 gm PO DAILY ALESSANDRO Stop: 03/09/24 08:59 Last Admin: 02/08/24 09:29 Dose: Not Given Documented By: JOE Tamsulosin HCl (Tamsulosin Hcl 0.4 Mg Cap) 0.4 mg PO BID ALESSANDRO Stop: 03/09/24 08:59 Last Admin: 02/08/24 20:23 Dose: 0.4 mg Documented By: Admin: 02/08/24 09:29 Dose: 0.4 mg Documented By: MTN Discontinued Medications Diphenhydramine HCl (Diphenhydramine 50 Mg/Ml Vial) 50 mg IV ONE ONE Stop: 02/07/24 20:11 Last Admin: 02/07/24 20:22 Dose: 50 mg Documented By: HB Piperacillin Sod/Tazobactam Sod (Zosyn) 4.5 gm in 100 mls @ 200 mls/hr IV NOW ONE; Protocol Stop: 02/07/24 20:38 Last Infusion: 02/07/24 21:35 Dose: Infused Documented By: Admin: 02/07/24 21:02 Dose: 200 mls/hr Documented By: HB Sodium Chloride (Nss) 1,000 mls @ 999 mls/hr IV .Q1H1M ONE Stop: 02/07/24 21:10 Last Infusion: 02/07/24 21:35 Dose: Infused Documented By: Admin: 02/07/24 20:22 Dose: 999 mls/hr Documented By: HB Acetaminophen (Ofirmev) 1,000 mg in 100 mls @ 400 mls/hr IV NOW STA Stop: 02/07/24 20:47 Last Infusion: 02/07/24 20:55 Dose: Infused Documented By: Admin: 02/07/24 20:38 Dose: 400 mls/hr Documented By: HB Sodium Chloride (Nss) 1,000 mls @ 999 mls/hr IV .Q1H1M ONE Stop: 02/07/24 23:05 Last Infusion: 02/08/24 00:57 Dose: Infused Documented By: Admin: 02/07/24 22:08 Dose: 999 mls/hr Documented By: HB Lactated Ringer's (Lr) 500 mls @ 200 mls/hr IV .Q2H30M STA Stop: 02/08/24 02:49 Last Infusion: 02/08/24 03:06 Dose: Infused Documented By: [facility] Admin: 02/08/24 00:50 Dose: 200 mls/hr Documented By: NATE Magnesium Sulfate/Dextrose (Magnesium Sulfate / D5w) 1 gm in 100 mls @ 50 mls/hr IV ONE STA Stop: 02/08/24 02:19 Last Infusion: 02/08/24 03:06 Dose: Infused Documented By: [facility] Admin: 02/08/24 00:53 Dose: 50 mls/hr Documented By: NATE Daptomycin 375 mg/ Syringe 7.5 mls @ 3.75 mls/min IV ONE STA; Protocol Stop: 02/08/24 00:21 Last Admin: 02/08/24 00:39 Dose: 3.75 mls/min Documented By: NATE Lactated Ringer's (Lr) 1,000 mls @ 100 mls/hr IV .Q10H ONE Stop: 02/08/24 15:59 Last Infusion: 02/08/24 16:16 Dose: Infused Documented By: Admin: 02/08/24 06:08 Dose: 100 mls/hr Documented By: YOLANDA Insulin Aspart (Insulin Aspart Per Unit Charge) 0 units SC Q6 ALESSANDRO Stop: 03/09/24 01:53 Last Admin: 02/08/24 18:32 Dose: 6 units Documented By: JOE Co-signed By: NATHANAEL Admin: 02/08/24 14:20 Dose: Not Given Documented By: Admin: 02/08/24 06:05 Dose: 2 units Documented By: YOLANDA Co-signed By: PAH Admin: 02/08/24 02:07 Dose: 3 units Documented By: YOLANDA Co-signed By: SAÚL Ioversol (Optiray 320 100ml) 94 ml IV ONCE ONE Stop: 02/07/24 20:54 Last Admin: 02/07/24 20:54 Dose: 94 ml Documented By: NASRIN Ketorolac Tromethamine (Ketorolac Tromethamine 15 Mg/Ml Vial) 15 mg IV NOW ONE Stop: 02/08/24 02:46 Last Admin: 02/08/24 03:01 Dose: 15 mg Documented By: YOLANDA Methylprednisolone (Methylprednisolone 125 Mg/2 Ml Vial) 40 mg IV NOW ONE Stop: 02/07/24 20:11 Last Admin: 02/07/24 20:22 Dose: 40 mg Documented By: SEBASTIAN Ondansetron HCl (Ondansetron Inj 2 Mg/Ml 2 Ml Vial) 4 mg IV NOW STA Stop: 02/07/24 20:34 Last Admin: 02/07/24 20:36 Dose: 4 mg Documented By: SEBASTIAN Imaging Data Radiologist's Impression: Chest X-Ray 02/07/24 18:57 Exam(s): XR CXR 1 VIEW EXAM: XR Chest, 1 View CLINICAL HISTORY: Reason for exam: Sepsis. TECHNIQUE: Frontal view of the chest. COMPARISON: Chest x-ray 02/03/24. FINDINGS: Lungs: Clear. No consolidation. Pleural space: No pneumothorax. Heart: No cardiomegaly. Mediastinum: Stable postsurgical change and atherosclerosis aortic arch. Bones/Soft Tissues: No acute abnormality. Tubes/Lines: Stable implanted catheter via the right chest, tip SVC. IMPRESSION: 1. No acute process, and no change. Electronically signed by: Suyapa Jacobs M.D. 02/07/24 22:42 PM Abdomen/Pelvis CT 02/07/24 20:10 Exam(s): CT ABDOMEN + PELVIS With Contrast IV Amt: optiray 320 94ml EXAM: CT Abdomen and Pelvis With Intravenous Contrast CLINICAL HISTORY: Reason for exam: septic, biliary stent, pancreatic CA. TECHNIQUE: Axial computed tomography images of the abdomen and pelvis with intravenous contrast. CTDI is 19 mGy and DLP is 931 mGy-cm. Automated exposure control was utilized for the study. A dose lowering technique was utilized adhering to the principles of ALARA. CONTRAST: Patient received optiray 320 94ml of IV contrast COMPARISON: CT abdomen pelvis 12/16/07. FINDINGS: Lung bases: Clear. No gross mass or pleural effusion. Liver: Innumerable hepatic hypodensities, largest 4.5 cm in the right lobe, nonspecific, probable metastatic disease. Pneumobilia, not unusual given that there is a biliary stent. No intrahepatic ductal dilatation. Gallbladder and bile ducts: Severe distended gallbladder, given biliary stent, cystic duct obstruction, acute cholecystitis or obstructed stent are not excluded. No ductal dilation. Pancreas: 3.2 cm mass of the pancreatic head, in keeping with history of pancreatic cancer. No ductal dilation, or acute pancreatitis. Spleen: Unremarkable. Adrenals: Unremarkable. Kidneys and ureters: No hydronephrosis. Stomach and bowel: Moderate, 6 cm focal wall thickening, cannot rule out obstructing mass at the hepatic flexure, axial series 3/139. Moderate fecal loaded right colon, could also be physiologic. There is also wall thickening in the distal colon, intermittent colitis is also in the differential considerations. No small bowel obstruction. Diverticulosis without diverticulitis. Appendix: Intraperitoneal space: No free air or fluid. Bones/joints: No acute fracture. Soft tissues: Fat-containing left inguinal hernia. Vasculature: No aortic aneurysm. Lymph nodes: Mildly prominent lymph nodes in the heber hepatis. Bladder: Mildly distended, wall thickening is nonspecific, may be artifact, cystitis not excluded. Reproductive: Moderate, nonspecific prostatomegaly. IMPRESSION: 1. Severe distended gallbladder, given biliary stent, cystic duct obstruction, acute cholecystitis or obstructed stent must be excluded. 2. Colonic obstruction at the hepatic flexure, concerning for an underlying mass. Cannot entirely rule out an intermittent colitis, as there is wall thickening in the distal colon. 3. Mass of the pancreatic head, hepatic metastasis, biliary stent, no CBD dilatation. Electronically signed by: Suyapa Jacobs M.D. 02/07/24 22:39 PM Discharge Plan Visit Data Chief Complaint: Fever Stated Complaint: chills, fever, fatigued ED Provider: Brittany Hamilton Discharge Problem: Acute non-ST elevation myocardial infarction (NSTEMI), Pancreatic cancer metastasized to liver, Fever Patient Disposition: Admitted As Inpatient Discharge Instructions Interventions: ED Discharge Assessment Last Done: 02/08/24 01:21 Discharge Problem: Fever Qualifiers: Fever type: unspecified Qualified Code(s): R50.9 - Fever, unspecified
[2024-02-08] MEDS: KETOROLAC TROMETHAMINE 15 MG/ML VIAL IV ONE (03:01)
[2024-02-08 03:43] LABS: Hemoglobin 7.6 g/dl (14.0-18.0); Mean Corpuscular Hemoglobin 28.3 pg (25.0-34.0); Mean Corpuscular Volume 85.5 fL (80.0-100.0); Mean Platelet Volume 9.3 fL (9.4-12.4); Platelet Count 186 K/uL (130-400); RDW Coefficient of Variation 13.9 % (11.5-14.5); RDW Standard Deviation 43.4 fL (36.4-46.3); Red Blood Count 2.69 M/uL (4.70-6.10); Reticulocyte % 0.73 % (0.50-2.00); White Blood Count 7.41 K/ul (4.8-10.8)
[2024-02-08] MEDS ORDERED: SODIUM CHLORIDE 0.9% 100 ML IV PRN (03:43)
[2024-02-08] MEDS ORDERED: SODIUM CHLORIDE 0.9% 50 ML IV PRN (03:43)
[2024-02-08 03:58] LABS: Albumin Globulin Ratio 1.1 (0.9-2); Albumin Level 2.7 gm/dl (3.4-5.0); BUN Creatinine Ratio 28.6 (10-20); Bilirubin,Total 0.9 mg/dl (0.2-1.0); Calcium 8.7 mg/dl (8.6-10.3); Creatinine Clr Calc Pharmacy 55.2 ml/min; Globulin 2.4 gm/dl (2.5-4.0); Magnesium 1.9 mg/dl (1.7-2.4); Potassium 4.7 mmol/L (3.5-5.1); Total Protein 5.1 gm/dl (6.0-8.3)
[2024-02-08 04:24] LABS: Ferritin 1124.3 ng/ml (8-388)
[2024-02-08 04:31] LABS: Acanthocytes 2+; Immature Granulocytes # (auto) 0.07 K/uL (0.01-0.20); Immature Granulocytes % (auto) 0.9 %; Lymphocytes # (auto) 0.25 K/uL (1.20-3.40); Lymphocytes % (auto) 3.4 %; Monocytes # (auto) 0.04 K/uL (0.11-0.59); Monocytes % (auto) 0.5 %; Neutrophils # (auto) 7.05 K/uL (1.40-6.50); Neutrophils % (auto) 95.2 %; Ovalocytes 1+
[2024-02-08] MEDS: LANTUS PER UNIT CHARGE SQ SCH (04:32)
[2024-02-08 04:43] LABS: Folate (Folic Acid),Ser orPlas 15.75 ng/ml (>5.38)
[2024-02-08] MEDS: BENZOCAINE 20% (ORAJEL) 11.9 GM TUBE MT PRN (05:49)
[2024-02-08] MEDS: LACTATED RINGER'S 1,000 ML IV ONE (06:08)
[2024-02-08] MEDS: TAMSULOSIN HCL 0.4 MG CAP PO SCH (09:29)
[2024-02-08] MEDS: DOCUSATE SODIUM 100 MG CAP PO SCH (09:29)
[2024-02-08] MEDS: ISOSORBIDE MONO EXTENDED REL 60 MG TABCR PO SCH (09:29)
[2024-02-08] MEDS: PANTOprazole 40 MG TAB PO SCH (09:29)
[2024-02-08] MEDS: POLYETHYLENE (MIRALAX) 17 GM PACK PO SCH (09:29)
[2024-02-08] MEDS: ATENOLOL 25 MG TABLET PO SCH (09:29)
[2024-02-08] MEDS: ENOXAPARIN INJ 40 MG/0.4 ML SYR SQ SCH (09:30)
[2024-02-08] MEDS: FLUTICASONE PROPIONATE NA SPR 16 GM BTL SCH (09:31)
--- NOTE | 2024-02-08 10:00 | Gastrointestinal Consultation ---
Date of Consultation February 08, 2024 Assessment & Plan (1) Abnormal LFTs: He has abdominal pain that is likely due to his malignant process as it is similar to the pain that started all of this. His LFT's should be abnormal with metastatic burden in the liver. I don't think he has cholangitis as he has pneumobilia which suggests open stent and his LFT's do not support that. He does have evidence of cystic duct obstruction so I guess that could be causing his pain and possibly his fever. CT suggests hepatic flexure obstruction. He says his last colonoscopy was here and four years ago but I cannot find records of it. It would be unfortunate to give him two GI primaries at once so I would cover him for colitis for his fever as well. History of Present Illness Reason for Consultation: abdominal pain, elevated LFT's Attending Physician: Anca Ly MD History of Present Illness 78 year old man who was recently diagnosed with metastatic pancreatic cancer. This was found in evaluation of what he thought was a kidney stone as he was having right upper abdominal pain. CT at that time revealed his cancer. On 01/15 he underwent EUS with biopsy and then stent placement with ERCP. Since then he has had pain in his mid abdomen that "goes everywhere". It is very similar to the pain that was present when all of his troubles started. He spoke to the doctor who put the stent in who told him the pain was likely due to the biopsies. Yesterday he had a temp to 101.5 and he presented to ED. Guillermo was called with concernes that he had stent occlusion and resultant cholangitis but LFT's do not support that and CT shows pneumobilia which supports an open stent. Allergies Allergy/AdvReac Type Severity Reaction Status Date / Time Iodinated Contrast Media Allergy Intermediate Rash Verified 02/03/24 12:55 levofloxacin Allergy Intermediate RASH Verified 02/03/24 12:55 lisinopril AdvReac Mild Cough Verified 02/03/24 12:56 Home Medications Medication Instructions Recorded Confirmed Type multivitamin (Multiple Vitamins 1 tab PO QPM 12/02/18 02/07/24 History tablet) atorvastatin 80 mg tablet 80 mg PO QPM 01/06/19 02/07/24 History cholecalciferol (vitamin D3) 50 2,000 units PO QAM 01/06/19 02/07/24 History mcg (2,000 unit) tablet clopidogrel 75 mg tablet 75 mg PO QAM 01/06/19 02/07/24 History ezetimibe 10 mg tablet 10 mg PO HS 01/06/19 02/07/24 History metformin 500 mg tablet 500 mg PO .COMPLEX 01/06/19 02/07/24 History nitroglycerin 0.4 mg sublingual 0.4 mg sublingual Q5M PRN Chest 01/06/19 02/07/24 History tablet Pain #1 tab ranolazine 1,000 mg 1,000 mg PO Q12H #180 tabs 01/06/19 02/07/24 History tablet,extended release,12 hr triamcinolone acetonide 0.1 % 1 appln topical BID PRN Rash 01/06/19 02/07/24 History topical cream tamsulosin 0.4 mg capsule 0.4 mg PO BID #180 caps 12/03/19 02/07/24 Rx fluticasone propionate 50 1 spray intranasal DAILY 03/16/20 02/07/24 History mcg/actuation nasal spray,suspension albuterol sulfate 90 mcg/actuation 2 inh inhalation Q6H PRN SOB 09/17/22 02/07/24 History breath activated powder inhaler atenolol 50 mg tablet 50 mg PO QAM 03/14/23 02/07/24 History pantoprazole 20 mg tablet,delayed 20 mg PO QAM 01/30/24 02/07/24 History release oxycodone-acetaminophen 5 mg-325 1 tab PO Q6H PRN pain #14 tabs 02/03/24 02/07/24 Rx mg tablet (Percocet) L.acidoph-L.rhamn-B.bifidum-B.long 1 tab PO DAILYBB 02/07/24 02/07/24 History 12.9 mg (2 billion cell) tablet DR aspirin 81 mg tablet,delayed 81 mg PO QPM 02/07/24 02/07/24 History release cyanocobalamin (vitamin B-12) 1,000 mcg IM .EVERY 30 DAYS 02/07/24 02/07/24 History 1,000 mcg/mL injection solution docusate sodium 100 mg capsule 100 mg PO BID 02/07/24 02/07/24 History iron,carbonyl 65 mg-vitamin C 125 1 tab PO Q OTHER DAY 02/07/24 02/07/24 History mg tablet,delayed release (Vitron-C) isosorbide mononitrate 60 mg 120 mg PO QAM 02/07/24 02/07/24 History tablet,extended release 24 hr lidocaine-prilocaine 2.5 %-2.5 % 1 applic topical UD 02/07/24 02/07/24 History topical cream ondansetron HCl 8 mg tablet 8 mg PO Q8 PRN Nausea 02/07/24 02/07/24 History polyethylene glycol 3350 17 17 g PO DAILY 02/07/24 02/07/24 History gram/dose oral powder (Miralax) prochlorperazine maleate 10 mg 10 mg PO Q6 PRN Nausea 02/07/24 02/07/24 History tablet semaglutide 0.25 mg or 0.5 mg (2 0.5 mg subcut WK 02/07/24 02/07/24 History mg/3 mL) subcutaneous pen injector (Ozempic) Patient History Medical History Pancreatic cancer stage 4; now with mets Hx of renal calculi Dyspnea reason for inhaler, uses every morning Angina pectoris chronic stable class I per cardio; follows closely with [facility] Cardio Non Q wave myocardial infarction 2002; 'questionable per pt' CAD (coronary artery disease) CABG August 1999, LM and LAD stents August 2009, RCA and LAD stents September 2009 Aortic stenosis follows with Dr. Lunsford; mild-mod per 08/27/23 ECHO BPH (benign prostatic hyperplasia) GERD (gastroesophageal reflux disease) Hyperlipidemia Hypertension Type 2 diabetes mellitus Surgical History Hx of CABG 1999 > 4 vessels > [facility] > follows with Dr. Lunsford History of insertion of pancreatic stent (01/16/24) [facility] Hx of biopsy (12/2023) pancreas and liver History of left cataract surgery History of esophagogastroduodenoscopy (EGD) History of colonoscopy History of tooth extraction History of tonsillectomy H/O lithotripsy Hx of cardiac cath 2009 > 5 stents - [facility] (LM and LAD stents August 2009, RCA and LAD stents September 2009) Family History Father Myocardial infarction Other Diabetes Heart disease Social History Smoking Status: Former smoker Tobacco Type: Cigarettes Second Hand Exposure: No; Do You Dip or Chew Tobacco: No; Hx Alcohol Use: Yes Hx Substance Use: No Preferred Language: [place] Communication Ability: Effective Fleet Manager/Dispatch Required: No Beliefs That Will Affect Care: None marital status: Current Living Situation: Significant Other Feels Safe at Home: Yes Safety Concerns: Feels Safe At This Time Assistive Devices: Hearing Aid - Bilateral Review of Systems Review of Systems: All systems reviewed & are unremarkable except as noted in HPI & below Physical Exam Constitutional: + ill appearing and + thin Neck: trachea midline, no thyromegaly Respiratory: normal respiratory effort, lungs clear to auscultation Cardiovascular: RRR, no murmur, no edema Gastrointestinal (Abdomen): Inspection/Auscultation: abdomen normal to inspection Percussion/Palpation: + abdomen tender; no hepatosplenomegaly Results & Data Vital Signs (Past 12 Hours) Vital Signs Temp Pulse Pulse Resp BP BP Pulse Ox 02/08/24 08:57 36.4 C L 73 18 148/72 H 98 02/08/24 07:57 36.4 C L 70 18 120/69 97 02/08/24 07:27 36.4 C L 68 16 117/63 96 02/08/24 07:12 36.4 C L 71 18 110/58 L 98 02/08/24 06:55 36.3 C L 70 16 131/62 98 02/08/24 05:30 36.4 C L 02/08/24 04:36 36.4 C L 72 16 107/59 L 02/08/24 02:26 36.6 C 89 16 123/65 96 02/08/24 02:00 02/08/24 01:55 81 02/08/24 01:12 83 16 110/56 L 96 02/08/24 00:30 85 21 116/62 97 02/07/24 23:53 88 20 109/66 97 02/07/24 23:19 91 H 02/07/24 22:30 96 H 20 122/65 95 O2 Del Method 02/08/24 08:57 02/08/24 07:57 02/08/24 07:27 02/08/24 07:12 02/08/24 06:55 02/08/24 05:30 02/08/24 04:36 02/08/24 02:26 Room Air 02/08/24 02:00 Room Air 02/08/24 01:55 02/08/24 01:12 02/08/24 00:30 02/07/24 23:53 Room Air 02/07/24 23:19 02/07/24 22:30 Room Air Laboratory Results 02/08/24 02/08/24 02/08/24 Range/Units 06:02 05:58 03:18 WBC 7.41 (4.8-10.8) K/ul RBC 2.69 L (4.70-6.10) M/uL Hgb 7.6 L (14.0-18.0) g/dl Hct 23.0 L (42.0-52.0) % MCV 85.5 (80.0-100.0) fL MCH 28.3 (25.0-34.0) pg MCHC 33.0 (32.0-36.0) g/dL RDW Std Deviation 43.4 (36.4-46.3) fL RDW Coeff of Loli 13.9 (11.5-14.5) % Plt Count 186 (130-400) K/uL MPV 9.3 L (9.4-12.4) fL Immature Gran % (Auto) 0.9 % Neut % (Auto) 95.2 % Lymph % (Auto) 3.4 % Garfield % (Auto) 0.5 % Eos % (Auto) 0.0 % Baso % (Auto) 0.0 % Reticulocyte % (Auto) 0.73 (0.50-2.00) % Neut # (Auto) 7.05 H (1.40-6.50) K/uL Lymph # (Auto) 0.25 L (1.20-3.40) K/uL Garfield # (Auto) 0.04 L (0.11-0.59) K/uL Eos # (Auto) 0.00 (0.00-0.50) K/uL Baso # (Auto) 0.00 (0.00-0.20) K/uL Reticulocyte # 0.020 (0.020-0.100) 10^6/uL Immature Gran # (Auto) 0.07 (0.01-0.20) K/uL Hyposegmented Neuts 2+ Ovalocytes 1+ Acanthocytes (Spur) 2+ PT (9.0-12.0) Seconds INR (0.9-1.1) APTT (21-31) Seconds PTT Ratio Sodium 134 L (136-145) mmol/L Potassium 4.7 (3.5-5.1) mmol/L Chloride 103 (98-107) mmol/L Carbon Dioxide 23 (21-32) mmol/L Anion Gap 8 (3-11) BUN 28 H (6-23) mg/dl Creatinine 0.98 (0.6-1.4) mg/dl Est Cr Clr Drug Dosing 55.2 ml/min eGFR 78.44 BUN/Creatinine Ratio 28.6 H (10-20) Glucose 205 H (70-99(Fasting)) mg/dl POC Glucose 190 H (70-99) mg/dl Lactate 2.5 H* (0.4-2.0) mmol/L Calcium 8.7 (8.6-10.3) mg/dl Magnesium 1.9 (1.7-2.4) mg/dl Iron 58 (35-175) mcg/dl Transferrin 122 L (200-360) mg/dl Ferritin 1124.3 H (8-388) ng/ml Total Bilirubin 0.9 (0.2-1.0) mg/dl AST 58 H (13-39) U/L ALT 37 (7-52) U/L Alkaline Phosphatase 351 H (34-104) U/L Troponin I High Sens 675.0 H* (0-20) pg/ml Total Protein 5.1 L D (6.0-8.3) gm/dl Albumin 2.7 L (3.4-5.0) gm/dl Globulin 2.4 L (2.5-4.0) gm/dl Albumin/Globulin Ratio 1.1 (0.9-2) Lipase 54 (11-82) U/L Vitamin B12 1029 H (180-914) pg/ml Folate 15.75 (>5.38) ng/ml Procalcitonin (0-0.5) ng/ml Urine Color Urine Appearance (Clear) Urine pH (4.5-7.5) Ur Specific [place] (1.000-1.030) Urine Protein (Negative) Urine Glucose (UA) (Negative) Urine Ketones (Negative) Urine Blood (Negative) Urine Nitrite (Negative) Urine Bilirubin (Negative) Urine Urobilinogen (Negative) Ur Leukocyte Esterase (Negative) Urine WBC (Auto) (0-5) /hpf Urine RBC (Auto) (0-2) /hpf U Hyaline Cast (Auto) (0-2) /lpf U Epithel Cells (Auto) (0-2) /hpf Urine Bacteria (Auto) (None Seen) Adenovirus (PCR) (NotDetected) B. pertussis DNA (PCR) (NotDetected) B.parapertussis DNA PCR (NotDetected) C. pneumoniae DNA (PCR) (NotDetected) Coronavirus OC43 (PCR) (NotDetected) Coronavirus HKU1 (PCR) (NotDetected) Coronavirus 229E (PCR) (NotDetected) SARS-CoV-2 (PCR) (NotDetected) Coronavirus NL63 (PCR) (NotDetected) Hepatitis C Ab Screen Negative (Negative) Human Metapneumovir PCR (NotDetected) Influenza Type A (PCR) (NotDetected) Influenza Type B (PCR) (NotDetected) M. pneumoniae (PCR) (NotDetected) Parainfluenza 1 (PCR) (NotDetected) Parainfluenza 2 (PCR) (NotDetected) Parainfluenza 3 (PCR) (NotDetected) Parainfluenza 4 (PCR) (NotDetected) RSV (PCR) (NotDetected) Entero/Rhino (PCR) (NotDetected) Blood Type A Positive Blood Type Recheck A Positive Antibody Screen NEGATIVE Crossmatch See Detail 02/08/24 02/07/24 02/07/24 Range/Units 02:01 21:35 19:45 WBC (4.8-10.8) K/ul RBC (4.70-6.10) M/uL Hgb (14.0-18.0) g/dl Hct (42.0-52.0) % MCV (80.0-100.0) fL MCH (25.0-34.0) pg MCHC (32.0-36.0) g/dL RDW Std Deviation (36.4-46.3) fL RDW Coeff of Loli (11.5-14.5) % Plt Count (130-400) K/uL MPV (9.4-12.4) fL Immature Gran % (Auto) % Neut % (Auto) % Lymph % (Auto) % Garfield % (Auto) % Eos % (Auto) % Baso % (Auto) % Reticulocyte % (Auto) (0.50-2.00) % Neut # (Auto) (1.40-6.50) K/uL Lymph # (Auto) (1.20-3.40) K/uL Garfield # (Auto) (0.11-0.59) K/uL Eos # (Auto) (0.00-0.50) K/uL Baso # (Auto) (0.00-0.20) K/uL Reticulocyte # (0.020-0.100) 10^6/uL Immature Gran # (Auto) (0.01-0.20) K/uL Hyposegmented Neuts Ovalocytes Acanthocytes (Spur) PT (9.0-12.0) Seconds INR (0.9-1.1) APTT (21-31) Seconds PTT Ratio Sodium (136-145) mmol/L Potassium (3.5-5.1) mmol/L Chloride (98-107) mmol/L Carbon Dioxide (21-32) mmol/L Anion Gap (3-11) BUN (6-23) mg/dl Creatinine (0.6-1.4) mg/dl Est Cr Clr Drug Dosing ml/min eGFR BUN/Creatinine Ratio (10-20) Glucose (70-99(Fasting)) mg/dl POC Glucose 212 H (70-99) mg/dl Lactate 2.6 H* (0.4-2.0) mmol/L Calcium (8.6-10.3) mg/dl Magnesium (1.7-2.4) mg/dl Iron (35-175) mcg/dl Transferrin (200-360) mg/dl Ferritin (8-388) ng/ml Total Bilirubin (0.2-1.0) mg/dl AST (13-39) U/L ALT (7-52) U/L Alkaline Phosphatase (34-104) U/L Troponin I High Sens 566.1 H* D (0-20) pg/ml Total Protein (6.0-8.3) gm/dl Albumin (3.4-5.0) gm/dl Globulin (2.5-4.0) gm/dl Albumin/Globulin Ratio (0.9-2) Lipase (11-82) U/L Vitamin B12 (180-914) pg/ml Folate (>5.38) ng/ml Procalcitonin (0-0.5) ng/ml Urine Color Dark Yellow Urine Appearance Clear (Clear) Urine pH 5.5 (4.5-7.5) Ur Specific [place] 1.023 (1.000-1.030) Urine Protein 1+ H (Negative) Urine Glucose (UA) Negative (Negative) Urine Ketones Trace H (Negative) Urine Blood Negative (Negative) Urine Nitrite Negative (Negative) Urine Bilirubin 1+ H (Negative) Urine Urobilinogen Negative (Negative) Ur Leukocyte Esterase 1+ H (Negative) Urine WBC (Auto) 0-5 (0-5) /hpf Urine RBC (Auto) 3-5 H (0-2) /hpf U Hyaline Cast (Auto) 0-2 (0-2) /lpf U Epithel Cells (Auto) 0-2 (0-2) /hpf Urine Bacteria (Auto) None Seen (None Seen) Adenovirus (PCR) (NotDetected) B. pertussis DNA (PCR) (NotDetected) B.parapertussis DNA PCR (NotDetected) C. pneumoniae DNA (PCR) (NotDetected) Coronavirus OC43 (PCR) (NotDetected) Coronavirus HKU1 (PCR) (NotDetected) Coronavirus 229E (PCR) (NotDetected) SARS-CoV-2 (PCR) (NotDetected) Coronavirus NL63 (PCR) (NotDetected) Hepatitis C Ab Screen (Negative) Human Metapneumovir PCR (NotDetected) Influenza Type A (PCR) (NotDetected) Influenza Type B (PCR) (NotDetected) M. pneumoniae (PCR) (NotDetected) Parainfluenza 1 (PCR) (NotDetected) Parainfluenza 2 (PCR) (NotDetected) Parainfluenza 3 (PCR) (NotDetected) Parainfluenza 4 (PCR) (NotDetected) RSV (PCR) (NotDetected) Entero/Rhino (PCR) (NotDetected) Blood Type Blood Type Recheck Antibody Screen Crossmatch 02/07/24 02/07/24 Range/Units 19:06 19:00 WBC 9.85 (4.8-10.8) K/ul RBC 3.41 L (4.70-6.10) M/uL Hgb 9.5 L (14.0-18.0) g/dl Hct 28.8 L (42.0-52.0) % MCV 84.5 (80.0-100.0) fL MCH 27.9 (25.0-34.0) pg MCHC 33.0 (32.0-36.0) g/dL RDW Std Deviation 43.0 (36.4-46.3) fL RDW Coeff of Loli 14.0 (11.5-14.5) % Plt Count 242 (130-400) K/uL MPV 9.0 L (9.4-12.4) fL Immature Gran % (Auto) 0.5 % Neut % (Auto) 92.5 % Lymph % (Auto) 4.2 % Garfield % (Auto) 1.9 % Eos % (Auto) 0.8 % Baso % (Auto) 0.1 % Reticulocyte % (Auto) (0.50-2.00) % Neut # (Auto) 9.11 H (1.40-6.50) K/uL Lymph # (Auto) 0.41 L (1.20-3.40) K/uL Garfield # (Auto) 0.19 (0.11-0.59) K/uL Eos # (Auto) 0.08 (0.00-0.50) K/uL Baso # (Auto) 0.01 (0.00-0.20) K/uL Reticulocyte # (0.020-0.100) 10^6/uL Immature Gran # (Auto) 0.05 (0.01-0.20) K/uL Hyposegmented Neuts 2+ Ovalocytes Acanthocytes (Spur) PT 14.0 H (9.0-12.0) Seconds INR 1.3 H (0.9-1.1) APTT 31 (21-31) Seconds PTT Ratio 1.2 Sodium 135 L (136-145) mmol/L Potassium 4.8 (3.5-5.1) mmol/L Chloride 99 (98-107) mmol/L Carbon Dioxide 26 (21-32) mmol/L Anion Gap 10 (3-11) BUN 29 H (6-23) mg/dl Creatinine 1.03 (0.6-1.4) mg/dl Est Cr Clr Drug Dosing 52.5 ml/min eGFR 73.89 BUN/Creatinine Ratio 28.2 H (10-20) Glucose 155 H (70-99(Fasting)) mg/dl POC Glucose (70-99) mg/dl Lactate 2.7 H* (0.4-2.0) mmol/L Calcium 10.0 (8.6-10.3) mg/dl Magnesium 1.6 L (1.7-2.4) mg/dl Iron (35-175) mcg/dl Transferrin (200-360) mg/dl Ferritin (8-388) ng/ml Total Bilirubin 1.2 H (0.2-1.0) mg/dl AST 65 H (13-39) U/L ALT 43 (7-52) U/L Alkaline Phosphatase 448 H (34-104) U/L Troponin I High Sens 771.2 H* (0-20) pg/ml Total Protein 6.4 (6.0-8.3) gm/dl Albumin 3.3 L (3.4-5.0) gm/dl Globulin 3.1 (2.5-4.0) gm/dl Albumin/Globulin Ratio 1.1 (0.9-2) Lipase (11-82) U/L Vitamin B12 (180-914) pg/ml Folate (>5.38) ng/ml Procalcitonin 0.40 (0-0.5) ng/ml Urine Color Urine Appearance (Clear) Urine pH (4.5-7.5) Ur Specific [place] (1.000-1.030) Urine Protein (Negative) Urine Glucose (UA) (Negative) Urine Ketones (Negative) Urine Blood (Negative) Urine Nitrite (Negative) Urine Bilirubin (Negative) Urine Urobilinogen (Negative) Ur Leukocyte Esterase (Negative) Urine WBC (Auto) (0-5) /hpf Urine RBC (Auto) (0-2) /hpf U Hyaline Cast (Auto) (0-2) /lpf U Epithel Cells (Auto) (0-2) /hpf Urine Bacteria (Auto) (None Seen) Adenovirus (PCR) Not Detected (NotDetected) B. pertussis DNA (PCR) Not Detected (NotDetected) B.parapertussis DNA PCR Not Detected (NotDetected) C. pneumoniae DNA (PCR) Not Detected (NotDetected) Coronavirus OC43 (PCR) Not Detected (NotDetected) Coronavirus HKU1 (PCR) Not Detected (NotDetected) Coronavirus 229E (PCR) Not Detected (NotDetected) SARS-CoV-2 (PCR) Not Detected (NotDetected) Coronavirus NL63 (PCR) Not Detected (NotDetected) Hepatitis C Ab Screen (Negative) Human Metapneumovir PCR Not Detected (NotDetected) Influenza Type A (PCR) Not Detected (NotDetected) Influenza Type B (PCR) Not Detected (NotDetected) M. pneumoniae (PCR) Not Detected (NotDetected) Parainfluenza 1 (PCR) Not Detected (NotDetected) Parainfluenza 2 (PCR) Not Detected (NotDetected) Parainfluenza 3 (PCR) Not Detected (NotDetected) Parainfluenza 4 (PCR) Not Detected (NotDetected) RSV (PCR) Not Detected (NotDetected) Entero/Rhino (PCR) Not Detected (NotDetected) Blood Type Blood Type Recheck Antibody Screen Crossmatch Diagnostic Findings Chest X-Ray 02/07/24 18:57 Exam(s): XR CXR 1 VIEW EXAM: XR Chest, 1 View CLINICAL HISTORY: Reason for exam: Sepsis. TECHNIQUE: Frontal view of the chest. COMPARISON: Chest x-ray 02/03/24. FINDINGS: Lungs: Clear. No consolidation. Pleural space: No pneumothorax. Heart: No cardiomegaly. Mediastinum: Stable postsurgical change and atherosclerosis aortic arch. Bones/Soft Tissues: No acute abnormality. Tubes/Lines: Stable implanted catheter via the right chest, tip SVC. IMPRESSION: 1. No acute process, and no change. Electronically signed by: Suyapa Jacobs M.D. 02/07/24 22:42 PM Abdomen/Pelvis CT 02/07/24 20:10 Exam(s): CT ABDOMEN + PELVIS With Contrast IV Amt: optiray 320 94ml EXAM: CT Abdomen and Pelvis With Intravenous Contrast CLINICAL HISTORY: Reason for exam: septic, biliary stent, pancreatic CA. TECHNIQUE: Axial computed tomography images of the abdomen and pelvis with intravenous contrast. CTDI is 19 mGy and DLP is 931 mGy-cm. Automated exposure control was utilized for the study. A dose lowering technique was utilized adhering to the principles of ALARA. CONTRAST: Patient received optiray 320 94ml of IV contrast COMPARISON: CT abdomen pelvis 12/16/07. FINDINGS: Lung bases: Clear. No gross mass or pleural effusion. Liver: Innumerable hepatic hypodensities, largest 4.5 cm in the right lobe, nonspecific, probable metastatic disease. Pneumobilia, not unusual given that there is a biliary stent. No intrahepatic ductal dilatation. Gallbladder and bile ducts: Severe distended gallbladder, given biliary stent, cystic duct obstruction, acute cholecystitis or obstructed stent are not excluded. No ductal dilation. Pancreas: 3.2 cm mass of the pancreatic head, in keeping with history of pancreatic cancer. No ductal dilation, or acute pancreatitis. Spleen: Unremarkable. Adrenals: Unremarkable. Kidneys and ureters: No hydronephrosis. Stomach and bowel: Moderate, 6 cm focal wall thickening, cannot rule out obstructing mass at the hepatic flexure, axial series 3/139. Moderate fecal loaded right colon, could also be physiologic. There is also wall thickening in the distal colon, intermittent colitis is also in the differential considerations. No small bowel obstruction. Diverticulosis without diverticulitis. Appendix: Intraperitoneal space: No free air or fluid. Bones/joints: No acute fracture. Soft tissues: Fat-containing left inguinal hernia. Vasculature: No aortic aneurysm. Lymph nodes: Mildly prominent lymph nodes in the heber hepatis. Bladder: Mildly distended, wall thickening is nonspecific, may be artifact, cystitis not excluded. Reproductive: Moderate, nonspecific prostatomegaly. IMPRESSION: 1. Severe distended gallbladder, given biliary stent, cystic duct obstruction, acute cholecystitis or obstructed stent must be excluded. 2. Colonic obstruction at the hepatic flexure, concerning for an underlying mass. Cannot entirely rule out an intermittent colitis, as there is wall thickening in the distal colon. 3. Mass of the pancreatic head, hepatic metastasis, biliary stent, no CBD dilatation. Electronically signed by: Suyapa Jacobs M.D. 02/07/24 22:39 PM
--- OUTSIDE RECORDS SUMMARY | 2024-02-08 10:05 | External Medical Summary | Summary of Care ---
Author Name Unknown Organization [facility] Address [address] [place] [address] Phone [phone] Care Team Providers Care Math Tutor Name Role Phone Pedro Luis Bowens DO Primary Care Provider [phone] Reason for Visit * Reason Onset Date Comments Precert Future 02/06/2024 S/P C1,D1 Abraxa ne/Gemzar Encounter Details Date Type Department Care Team (Late st Contact Info) Description 02/06/2024 Telephone Hematology/Oncology [facility] Marycarmen [place] [address] [place] [address] Marimar Del Castillo MD [address] [place] [address] Precert Future (S/P C1,D1 Abraxane/Gemzar) Allergies Active Allergy Reactions Criticality Noted Date Comments Iodinated Contrast Media Rash 08/29/2009 Pt got a rash after his cath on 08/23/09 Levofloxacin 11/03/2009 Nausea jittery Lisinopril 10/01/2013 Cough Rash documented as of this encounter (statuses as of 02/06/2024) Medications ASPIRIN 81 MG PO CHEW Take 1 Tablet by mouth at bedtime. 100 Tab 3 08/25/19 10 Active triamcinolone acetonide (ARISTOCORT) 0.1 % creamIndication s:Benign skin lesion Apply topically to area two times a day. 60 g 5 06/23/19 20 Active Iron-Vitamin C 65-125 MG Tablet Take 1 Tablet by mouth every other day. Active Multiple Vitamin (MULTI-DAY) Tablet Take 1 Tablet by mouth every evening. Active Probiotic Product (PROBIOTIC ACIDOPHILUS BIOBEADS) Capsule Take 1 Cap by mouth daily before breakfast. 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 DX: E11.9 1 Kit 12/29/19 21 Active Vitamin D3 25 MCG (1000 UT) Oral Capsule Take 1 Capsule by mouth every evening. Active Atenolol 50 MG Oral Tablet (Tenormin)Indic ations:Old myocardial infarction Take 1 Tablet by mouth in the morning. 100 Tablet 3 4 1:57 PM EDT 11/30/19 23 Active Ezetimibe 10 MG Oral Tablet (Zetia)Indicati ons:Dyslipidemi a, goal LDL below 70 TAKE ONE TABLET BY MOUTH EVERY DAY 100 Tablet 3 4 7:50 AM EDT 01/15/20 23 Active Additional Information Patient taking differently: HS, Reported on 01/08/2024 Ranolazine ER 1000 MG Oral Tablet Extended Release 12 HourIndications :Coronary artery disease of [place] artery of [place] heart with stable angina pectoris (HCC) TAKE ONE TABLET BY MOUTH TWICE A DAY 200 Tablet 3 4 9:01 AM EDT 05/02/19 24 025 Active Ozempic (0.25 or 0.5 MG/DOSE) 2 MG/1.5ML Solution Pen-injector (Semaglutide(0. 25 or 0.5MG/DOS))Emily cations:Type 2 diabetes mellitus with hemoglobin A1c goal of less than 7.0% ([facility]) Inject 0.5 mg under the skin once a week. 4.5 mL 1 05/30/19 24 Active Additional Information Patient taking differently:0.5 mg Subcutaneous QWEEK,Weekly injection on Saturdays, Reported on 09/10/2023 Isosorbide Mononitrate ER 60 MG Oral Tablet Extended Release 24 Hour (Imdur)Indicati ons:Old myocardial infarction TAKE ONE TABLET BY MOUTH TWICE A DAY 200 Tablet 2 4 12:56 PM EDT 08/07/19 24 025 Active Additional Information Patient taking differently: Taking 2 tablets in the morning, Reported on 09/10/2023 Tamsulosin HCl 0.4 MG Oral Capsule (Flomax) TAKE ONE CAPSULE BY MOUTH TWICE A DAY 200 Capsule 2 4 12:56 PM EDT 08/07/19 24 025 Active metFORMIN HCl 500 MG Oral Tablet (Glucophage)Ind ications: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),Type 2 diabetes mellitus with hemoglobin A1c goal of less than 7.0% (HCC) TAKE ONE TABLET BY MOUTH EVERY DAY WITH BREAKFAST AND TAKE ONE TABLET BY MOUTH EVERY DAY WITH LUNCH AND TAKE TWO TABLETS BY MOUTH EVERY DAY WITH SUPPER 400 Tablet 3 4 12:29 PM EDT 08/26/19 24 025 Active Atorvastatin Calcium 80 MG Oral Tablet (Lipitor)Indica tions:Dyslipide hiram, goal LDL below 70 TAKE ONE TABLET BY MOUTH EVERY DAY 100 Tablet 1 4 9:56 AM EDT 09/20/19 24 025 Active Additional Information Patient taking differently: HS, Reported on 01/08/2024 Albuterol Sulfate HFA 108 (90 Base) MCG/ACT Inhalation Aerosol Solution Inhale 2 Puffs by mouth every 6 hours as needed for Shortness of Breath. 54 g 3 4 10:08 AM EDT 10/28/19 24 Active Pantoprazole Sodium 20 MG Oral Tablet Delayed Release (Protonix)Indic ations:Gastroes ophageal reflux disease without esophagitis Take 1 Tablet by mouth in the morning. 100 Tablet 3 4 3:58 PM EDT 11/08/19 24 Active Clopidogrel Bisulfate 75 MG Oral Tablet (pLAVix)Indicat ions:Old myocardial infarction TAKE ONE TABLET BY MOUTH EVERY DAY 100 Tablet 3 4 12:56 PM EDT 11/12/19 24 025 Active Cyanocobalamin 1000 MCG/ML Injection Solution (Cyanocobalamin )Indications:Vi tamin B12 deficiency INJECT 1ML INTRAMUSCULARLY EVERY 30 DAYS 3 mL 1 11/29/19 24 Active Additional Information Patient taking differently: INJECT 1ML INTRAMUSCULARLY EVERY other 30 DAYS, Reported on 01/01/2024 oxyCODONE-Aceta minophen 5-325 MG Oral Tablet (Percocet)Indic ations:Kidney stone on right side Take 1 Tablet by mouth every 8 hours as needed for Pain, Severe. 60 Tablet 01/03/20 24 Active Polyethylene Glycol 3350 17 GM/SCOOP Oral Powder (MiraLax) Take 17 g by mouth in the morning. Dissolve one heaping tablespoon in 8 ounces of water or juice.. 01/03/20 24 Active Docusate Sodium 100 MG Oral Capsule (Colace) Take by mouth 2 times a day. 01/03/20 24 Active Fluticasone Propionate 50 MCG/ACT Nasal Suspension (Flonase)Indica tions:Chronic maxillary sinusitis ADMINISTER ONE SPRAY INTO EACH NOSTRIL DAILY 48 g 3 4 2:12 PM EDT 01/20/20 24 Active Nitroglycerin 0.4 MG Sublingual Tablet Sublingual (Nitrostat) One tablet under tongue if needed for chest pain. May repeat 3 times. If chest pain continues, call 911 25 Tablet 3 01/27/20 24 Active Ondansetron HCl 8 MG Oral Tablet (Zofran)Indicat ions: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) Take 1 Tablet by mouth every 8 hours as needed for Nausea. 30 Tablet 3 02/04/20 24 Active Prochlorperazin e Maleate 10 MG Oral Tablet (Compazine)Emily cations:Metasta sis from pancreatic cancer (HCC) Take 1 Tablet by mouth every 6 hours as needed for Nausea. 30 Tablet 3 02/04/20 24 Active Lidocaine-Prilo chester 2.5-2.5 % External Cream (Emla)Indicatio ns: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) APPLY TO SKIN OVER MEDIPORT & COVER 1HR PRIOR TO ACCESSING. 30 g 1 02/04/20 24 Active documented as of this encounter (statuses as of 02/06/2024) Active Problems Problem Noted Date Diagnosed Date Metastasis from pancreatic cancer 01/28/2024 Encounter for antineoplastic chemotherapy 2023 Atherosclerosis of [place] ar teries of extremities with rest pain, bilateral legs 11/08/2023 Pulmonary hypertension, unspecified 07/17/2022 B12 deficiency 03/22/2022 Moderate aortic stenosis 11/28/2021 Occupational exposure to noise 09/27/2020 Coronary artery disease of [place] artery of [place] heart with stable angina pectoris 09/17/2019 Gastroesophageal reflux disease without esophagi tis 09/17/2019 HTN, goal below 140/90 05/30/2015 Overview: Per HTN Protocol #27. S/P primary angioplasty with coronary stent 04/2009 Type 2 diabetes mellitus wit h hemoglobin A1c goal of less than 7.0% 08/30/2009 Overview (07/19/2015): ICD-10 update of inactive term S/P angioplasty with stent 08/29/2009 Aortocoronary bypass status 08/23/2009 Overview (08/23/2009): CABG X 4-1999 DM type 2 causing vascular disease 08/23/2009 Old myocardial infarction 08/23/2009 Pure hypercholesterolemia Overview (07/25/2015): ICD-10 update of inactive term BPH (benign prostatic hyperplasia) documented as of this encounter (statuses as of 02/06/2024) Resolved Problems Problem Noted Date Diagnosed Date Resolved Date Current mild episode of sania r depressive disorder without prior episode 03/22/2022 2 Current mild episode of sania r depressive disorder without prior episode 09/27/2020 2 Dependent relative needing care at home 09/27/2020 11/28/2021 Diabetes mellitus due to und erlying condition with retinopathy and macular edema 09/17/201907/11 Inflamed seborrheic keratosis 07/28/2013 09/19/2018 HTN, GOAL BELOW 140/80 11/12/201106/29 Overview: Per HTN Protocol #27. [employer] Other*[id number] 09/23/2009 05/01/2016 Overview (09/23/2009): Study Titile: Genomic Markers for Patients with Cardiovascular Disease Project #[id number] PI: Estela Sandoval MD Please call [phone] with study related questions Dyslipidemia, goal LDL below 70 08/30/2009 02/26/2013 HTN, goal below 130/80 08/30/200911/14 Overview: Per HTN Protocol #27. History of drug allergy 08/29/200906/23 Dyslipidemia, goal LDL below 70 08/23/2009 02/26/2013 ACEI/ARB contraindicated 09/2013 documented as of this encounter (statuses as of 02/06/2024) Immunizations Name Administration Dates Next Due COVID-19 mRNA, LNP-s, No Pre serve, 2-Dose Series (Moderna) 05/27/2020,04/29/2020 COVID-19 mRNA, LNP-s, No Pre serve, 2-Dose Series (Pfizer) 07/17/2021,01/26/2021 Covid-19, Mrna, Lnp-s, Pf, B ivalent, 50 Mcg, IM, 12 yrs and above (Moderna) 03/01/2022 H1N1 2009 Influenza, IM 02/16/2009 Pneumococcal Conjugate Vacc, 13 Valent (Prevnar) 09/02/2015 Pneumococcal Polysaccharide PPV23 (Pneumovax) 09/16/2009 Seasonal Influenza Vac., MDV , IM, 0.5 mL (Fluzone) 11/25/2014,12/10/2013,12/18/2012,11/24,12/01/2010,12/28/2009 12/10/2014 Seasonal Influenza, High Dos e, Trivalent, PF, IM (Fluzone HD) 01/07/2019 Seasonal Influenza, PF, 6 M & above, IM , (FluLaval or Fluzone) 12/12/2017,11/27/2016 Seasonal Influenza, Quadriva lent Hd (Fluzone Hd) 11/29/2022,11/28/2021,12/07/2020 Seasonal Influenza, Quadriva lent Hd, 65+ Yrs 12/21/2019 Seasonal Influenza, Quadriva lent, No Preserve, IM 12/15/2015 TD - Tetanus/Diptheria (ADULT) 09/17/2008 TDAP (age 10 and older)(Boostrix) 10/01/2013 TDAP, Age 7 and older, IM (Adacel) 11/08/2023 Varicella Zoster Vaccine (Adult) 12/20/2011 Zoster Vaccine Recombinant (Shingrix) 09/17/2019 ,03/19/2019 documented as of this encounter Social History Tobacco Use Types Packs/Day Years Used Date Smoking Tobacco: Former Cigarettes 1 25 1 961 - 1985 Passive Smoke Exposure: Past Smokeless Tobacco: Former Comments:quit in 1984. Alcohol Use Standard Drinks/Week Comments Yes 0 (1 standard drink = 0.6 oz pur e alcohol) occasionally AUDIT-C Answer Date Recorded Q1: How often do you have a drink containing alc ohol? Monthly or less 12/15/2020 Q2: How many drinks containi ng alcohol do you have on a typical day when you are drinking? 1 or 2 12/15/2020 Q3: How often do you have si x or more drinks on one occasion? Not asked 12/15/2020 PHQ-2 Answer Date Recorded PHQ Adult Total Score 0 03/21/2023 Hunger Vital Sign Answer Date Recorded Within the past 12 months, y ou worried that your food would run out before you got the money to buy more. Never true 03/21/20 23 Within the past 12 months, t he food you bought just didn't last and you didn't have money to get more. Never true 03/21/2023 Childcare Answer Date Recorded Do you feel overwhelmed with taking care of a child, family member or friend? No 03/21/2023 Does your family need help f inding childcare? (Household - for ages 0-17 years) Not on file 03/21/2023 Clothing Answer Date Recorded Have you been unable to get clothing when it was really needed? No 03/21/2023 Is your family able to get c lothes or diapers when needed? (Household - for ages 0-17 years) Not on file 03/21/2023 Personal Safety Answer Date Recorded Do you feel unsafe or have concerns for your saf ety? No 03/21/2023 Do you have concerns for you r family's safety? (Household - for ages 0-17 years) Not on file 03/21/2023 Utilities Answer Date Recorded Do you have trouble paying y our heating, water, or electric bill? No 03/21/2023 Is your family able to pay t he heat, water, or electric bill? (Household - for ages 0-17 years) Not on file 03/21/2023 Does your family have access to good internet? (Household - for ages 0-17 years) Not on file 03/21/2023 Employment Status Answer Date Recorded Are you unemployed or without regular income? No 03/21/2023 Does the household have a re gular source of income? (Household - for ages 0-17 years) Not on file 03/21/2023 Social Connections Answer Date Recorded How often do you feel lonely or isolated from th ose around you? Never 03/21/2023 Financial Resource Strain Answer Date R ecorded Do you have any trouble payi ng for your medications, or do you think you might in the future? No 03/21/2023 Does your family have troubl e paying for medicine? (Household - for ages 0-17 years) Not on file 03/21/2023 Transportation Needs Answer Date Record ed READ ONLY Do you have troubl e getting a ride to medical visits or work? Never True 03/21/2023 Does your family have a hard time getting a ride to doctors visits? (Household - for ages 0-17 years) Not on file 03/21/2023 Has lack of transportation k ept you from medical appointments, meetings, work, or from getting things needed for daily living? Check all that apply. (Adult - for ages 18 years and over) Not on file 03/21/2023 Do you (or your family) have trouble finding or paying for a ride (transportation)? (Household - for ages 0-17 years) Not on file 03/21/2023 Housing Stability Answer Date Recorded Do you currently live in a s helter or have no steady place to sleep at night? No 03/21/2023 READ ONLY Do you think you a re at risk of becoming homeless? No 03/21/2023 Does your family worry about paying for your home or becoming homeless? (Household - for ages 0-17 years) Not on file 1 05/22/2022 Are you homeless or worried that you might be in the future? (Adult - for ages 18 years and over) Not on file 3 Are you (or your family) jazmine eless or worried that you might be in the future? (Household - for ages 0-17 years) Not on file Food Insecurity Answer Date Recorded Do you need food for this week? No 03/21/2023 Are you able to get enough f ood for your family? (Household - for ages 0-17 years) Not on file 03/21/2023 Does your family need food t his week? (Household - for ages 0-17 years) Not on file 03/21/2023 Do you always have enough fo od for your family? (Household - for ages 0-17 years) Not on file 03/21/2023 Sex and Gender Information Value Date Recorded Sex Assigned at Male 03/12/2019 9:54 AM EST Legal Sex Male 5:54 AM EST Gender Identity Male 03/12/2019 9:54 AM EST Sexual Orientation Straight 03/12/2019 9: 54 AM EST documented as of this encounter Miscellaneous Notes * Telephone Encounter - Marco Farrell RN - 02/06/2024 4:16 PM EST HEMATOLOGY/ONCOLOGY INITIAL CHEMO FOLLOW-UP Post chemo side effects: Mouth sore Understands post treatment medications: Yes Understands to call office prior to ER visit/or with issues: Yes Aware of next appointment: Yes Additional information: Pt states he has a mouth sore but other than that he is feeling well. I reviewed steps with him for making a baking soda/salt water mouth rinse that he can do 6-8x/day. Pt verbalized understanding and has our number he can call if these get worse or he has further issues. documented in this encounter Plan of Treatment Upcoming Encounters Date Type Department Care Team (Latest Contact Info) Description 02/11/2024 10:00 AM EST Laboratory Laboratory [place] [facility] Marti [address] [place] [phone] Manuela Massey [place] Marti [address] [place] [address] 02/12/2024 1:30 PM EST Hem/Onc Treatment Hematology/Oncol ogy Treatment, [place] [address] [facility] [place] [phone] Marycarmen, Chair 4 Hem Onc [address]en[address] [place], [place] [address] 02/19/2024 1:30 PM EST Office Visit Hematology/Oncol ogy [place] [address] [place] [phone] Gilda Banda, [facility] [address] [facility] [address] 02/19/2024 2:00 PM EST Hem/Onc Treatment Hematology/Oncol ogy Treatment, [place] [address] [facility], [place] [phone] Marycarmen, Chair 3 Hem Onc [address] [place] [address] 03/23/2024 8:40 AM EST Office Visit Family Practice [address] [place] [address] [address] [place] [address] Pedro Luis Bowens DO [address] [place] [address] 04/21/2024 8:00 AM EST Hospital Encounter ENDO OSSC, Endoscopy Room [facility] [address] [place] [phone] Jose E Bai MD [address] [place] [address] 04/21/2024 8:00 AM EST - 04/21/2024 8:45 AM EST Surgery ENDO OSSC, Endoscopy Room [facility] [address] [place] [phone] Jose E Bai MD [address] [place] [address] ENDOSCOPIC RETROGRADE CHOLANGIOPANCREATOGRAPHY (ERCP) DIAGNOSTIC Scheduled Procedures Name Priority Associated Diagnoses Date/Ti me ENDOSCOPIC RETROGRADE CHOLANGIOPANCREATOGRAPHY (ERCP) DIAGNOSTIC Pancreatic mass Liver mass 04/21/2024 8:00 AM EST ENDOSCOPIC RETROGRADE CHOLANGIOPANCREATOGRAPHY (ERCP) W/STENT REMOVAL AND EXCHANGE; INC DILATION, GUIDE WIRE AND SPHINCTEROTOMY Pancreatic mass Liver mass 04/21/2024 8:00 AM EST Health Maintenance Due Date Last Done Comments Adult Wellness Visit 12/15/2021 12/15/2020 Influenza Vaccine (FLU shot) (#1) 2023 11/29/2022, 11/28/2021, 12/07/2020, Additional history exists Depression Screening 03/21/2024 03/21/2023 HbA1c 05/10/2024 11/08/2023, 06/23, 03/21/2023, Additional history exists Albumin/Creatinine Ratio 07/11/2024 024, 07/17/2022, 07/05/2021, Additional history exists Diabetic Foot Exam 07/11/2024 07/12/2023, 0 07/17/2022, 07/11/2021, Additional history exists Diabetic Eye Exam 07/21/2024 07/22/2023, , 07/12/2022, Additional history exists GFR 02/03/2025 02/04/2024, 10/0 10/2023, 11/08/2023, Additional history exists DTap/Tdap Vaccines (3 - Td or Tdap) 11/07/2033 11/08/2023, 10/01/2013, 09/17/2008 Pneumococcal Vaccine: 65+ Years Completed 09/02/2015, 09/16/2009 Zoster Vaccines Completed 09/17/2019, 02/23, 12/20/2011 COVID-19 Vaccine Discontinued 03/01/2022, , 01/26/2021, Additional history exists HPV (Gardasil) Vaccine Aged Out No lo nger eligible based on patient's age to complete this topic Hepatitis B Vaccine Aged Out No longe r eligible based on patient's age to complete this topic MENINGOCOCCAL (MENACTRA/MENVEO) Aged Out No longer eligible based on patient's age to complete this topic documented as of this encounter Medical Devices Implanted Type Area Admission Liaison Device Identifier Shelf Expiration Date Model / Serial / Lot Stent Bili Duodenal [id number] - [id number] Implanted:Qty: 1 on 01/16/2024 by Jose E Bai MD at ENDOSCOPY [facility] N/A: Stomach [employer] 12/02/2025 [id number] / / [id number] documented as of this encounter Advance Directives * Full Code (Latest Code Status on File) Date Activated Date Inactivated Comments 09/23/2009 4:06 PM 09/24/2009 6:06 PM This order ref lects the patients wishes and were consensually agreed upon. Question Answer Comments Discussion of Advance Directives occurred with: Not Discussed Does the patient have a Living Will? No Does the patient have Health Care Power of Attor ila? No * Full Code Date Activated Date Inactivated Comments 08/29/2009 2:25 PM 08/30/2009 1:34 PM This order ref lects the patients wishes and were consensually agreed upon. Question Answer Comments Discussion of Advance Directives occurred with: Not Discussed Does the patient have a Living Will? No Does the patient have Health Care Power of Attor ila? No Care Teams Math Tutor Relationship Specialty Start Date End Date Pedro Luis Bowens DO [address] [place] [address] PCP - General Internal Medicine 09/09/23 documented as of this encounter
--- OUTSIDE RECORDS SUMMARY | 2024-02-08 10:06 | External Medical Summary ---
Author Name Unknown Address Unknown Organization [id number]:LABORATORY [facility] - [address] [place] [address] Laboratory Report Ordering Provider Test Date Status ROSARIO STRAUSS 02/04/2024 11:09:32 Final Observation Date Value Abnormality Reference (Units ) Status Hep B surface Ag 02/04/2024 11:09:32 Negative Neg ative Final Performing Location LABORATORY [facility] - [address] [place] [address]
--- OUTSIDE RECORDS SUMMARY | 2024-02-08 10:06 | External Medical Summary ---
Author Name Unknown Address Unknown Organization [id number]:LABORATORY [facility] - [facility] [place] [facility] [address] Laboratory Report Ordering Provider Test Date Status STRAUSS,ROSARIO 02/04/2024 11:09:32 Final Observation Date Value Abnormality Reference (Units ) Status Hepatitis B virus core Ab [Presence] in Serum 02/04/2024 11:09:32 Negative Negative Final Performing Location LABORATORY [facility] - [address] [place] [address]
--- OUTSIDE RECORDS SUMMARY | 2024-02-08 10:06 | External Medical Summary | Summary of Care ---
Author Name Unknown Organization [facility] Address [address] [place] [address] Phone [phone] Care Team Providers Care College Professor Name Role Phone Pedro Luis Bowens DO Primary Care Provider [phone] Encounter Details Date Type Department Care Team (Late st Contact Info) Description 01/30/2024 Population Health External Data Unspecified Department Allergies Active Allergy Reactions Criticality Noted Date [...] Cap by mouth daily before breakfast. 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 25 or 0.5MG/DOS))Emily cations:Type 2 diabetes mellitus with hemoglobin A1c goal of less than 7.0% ([facility]) Inject 0.5 mg under the skin once [...] 8 ounces of water or juice.. 01/03/20 Active Docusate Sodium 100 MG Oral Capsule (Colace) Take by mouth 2 times a day. 01/03/20 Active Fluticasone Propionate 50 MCG/ACT Nasal Suspension (Flonase)Indica tions:Chronic maxillary sinusitis ADMINISTER ONE SPRAY INTO EACH NOSTRIL DAILY 48 g 3 4 2:12 PM EDT 01/20/20 Active Nitroglycerin 0.4 MG Sublingual Tablet Sublingual (Nitrostat) One tablet under tongue if needed for chest pain. May repeat 3 times. If chest pain continues, call 911 25 Tablet 3 01/27/20 Active documented as of this encounter (statuses as of 02/06/2024) Active Problems Problem Noted Date Diagnosed Date Metastasis from pancreatic cancer 01/28/2024 Encounter for antineoplastic chemotherapy 2023 Atherosclerosis of [place] ar teries of extremities with rest pain, bilateral legs 11/08/2023 Pulmonary hypertension, unspecified 07/17/2022 B12 deficiency 03/22/2022 Moderate aortic stenosis 11/28/2021 Occupational exposure to noise 09/27/2020 Coronary artery disease of n ative artery of [place] heart with stable angina pectoris 09/17/2019 Gastroesophageal [...] Per HTN Protocol #27. [employer] Other*[id number] 09/23/2009 05/01/2016 Overview (09/23/2009): Study Titile: Genomic Markers for Patients with Cardiovascular Disease Project #[id number] PI: Estela Sandoval MD Please call [phone] with study related questions Dyslipidemia, goal LDL [...] Former Cigarettes 1 25 1 961 - 1986 Passive Smoke Exposure: Past Smokeless Tobacco: Former [...] 18 years and over) Not on file Are you (or your family) jazmine eless [...] AM EST documented as of this encounter Plan of Treatment Upcoming Encounters Date Type Department Care Team (Latest Contact Info) Description 02/11/2024 10:00 AM EST Laboratory Laboratory [address] [place] [address] [place] [address] 02/12/2024 1:30 PM EST Hem/Onc Treatment Hematology/Oncol ogy Treatment, [place] 200 [place] [phone] Marycarmen, Chair 4 Hem Onc Scenery [address] [place], [place] [address] 02/19/2024 1:30 PM EST Office Visit Hematology/Oncol ogy Scenery [facility] [address] [facility] [place], [place] [phone] Gilda Banda CRNP [address] [place], [place] [address] [address] 02/19/2024 2:00 PM EST Hem/Onc Treatment Hematology/Oncol ogy Treatment, [place] 200 [facility], [place] [phone] Marycarmen, Chair 3 Hem Onc Scenery 200 [facility] [place], [place] [address] 03/23/2024 8:40 AM EST Office Visit Family Practice [address] [place] [address] 293 [place] [address] Pedro Luis Bowens, 293 [facility] [place] [address] 04/21/2024 8:00 AM EST Hospital Encounter [facility]O [facility], Endoscopy Room [facility] [address] [facility] [place] [address] Jose E Bai MD [address] [place] [address] 04/21/2024 8:00 AM EST - 04/21/2024 8:45 AM EST Surgery ENDO [facility], Endoscopy Room [facility] [address] [place] [phone] Jose E Bai MD [address] [place] [address] ENDOSCOPIC RETROGRADE CHOLANGIOPANCREATOGRAPHY (ERCP) DIAGNOSTIC Scheduled Procedures [...] Completed 09/02/2015, 09/16/2009 Zoster Vaccines Completed 09/17/2019, /08/2018, 12/20/2011 COVID-19 Vaccine Discontinued 03/01/2022, , 01/26/2021, [...] this encounter Medical Devices Implanted Type Area Lead Technical Architect Device Identifier Shelf Expiration Date Model / Serial / Lot Stent Bili Duodenal [id number] - [id number] Implanted:Qty: 1 on 01/16/2024 by Jose E Bai MD at ENDOSCOPY [facility] N/A: [employer] 12/02/2025 PBD-1031-1 [id number] / / [id number] documented as of this encounter Advance Directives [...] Power of Attor ila? No Care Teams College Professor Relationship Specialty Start Date End Date Pedro Luis Bowens DO [address] [place] [address] PCP - General Internal Medicine 09/09/23 documented as of this encounter
--- OUTSIDE RECORDS SUMMARY | 2024-02-08 10:06 | External Medical Summary | Summary of Care ---
Author Name Unknown Organization [facility] Address [address] [place] [address] Phone [phone] Care Team Providers Care Bisque Tile Burner Name Role Phone Pedro Luis Bowens DO Primary Care Provider [phone] Reason for Visit * Reason Onset Date Comments Medication Refill 02/04/2024 Encounter Details Date Type Department Care Team (Late st Contact Info) Description 02/04/2024 Refill Hematology/Oncology Treatment, [place] [address] [facility] [place] [phone] Marimar Del Castillo MD [address] [place] [address] 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)* Allergies Active Allergy Reactions Criticality Noted Date Comments Iodinated Contrast Media Rash 08/29/2009 Pt got a rash after his cath on 08/23/09 Levofloxacin 11/03/2009 Nausea jittery Lisinopril 10/01/2013 Cough Rash documented as of this encounter (statuses as of 02/04/2024) Medications ASPIRIN 81 MG PO CHEW Take [...] hemoglobin A1c goal of less than 7.0% ([facility]),DM type 2 causing vascular disease ([facility]),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 25 or 0.5MG/DOS))Emily cations:Type 2 diabetes mellitus with hemoglobin A1c goal of less than 7.0% ([facility]) Inject 0.5 mg under the skin [...] needed for Pain, Severe. 60 Tablet 01/03/20 Active Polyethylene Glycol 3350 17 GM/SCOOP Oral [...] as of this encounter (statuses as of 02/04/2024) Active Problems Problem Noted Date Diagnosed Date Metastasis from pancreatic cancer 01/28/2024 Encounter for antineoplastic chemotherapy 2023 Atherosclerosis of [place] ar teries of extremities with rest pain, bilateral legs 11/08/2023 Pulmonary hypertension, unspecified 07/17/2022 B12 deficiency 03/22/2022 Moderate aortic stenosis 11/28/2021 Occupational exposure to noise 09/27/2020 Coronary artery disease of n ative artery of [place] heart with stable angina pectoris 09/17/2019 Gastroesophageal [...] bypass status 08/23/2009 Overview (08/23/2009): CABG X -1999 DM type 2 causing vascular disease 08/23/2009 Old myocardial infarction 08/23/2009 Pure hypercholesterolemia Overview (07/25/2015): ICD-10 update of inactive term BPH (benign prostatic hyperplasia) documented as of this encounter (statuses as of 02/04/2024) Resolved Problems Problem Noted Date Diagnosed Date [...] Per HTN Protocol #27. [employer] Other*[id number] 09/23/2009 05/01/2016 Overview (09/23/2009): Study Titile: Genomic Markers for Patients with Cardiovascular Disease Project #[id number] PI: Estela Sandoval MD Please call [phone] with study related questions Dyslipidemia, goal LDL below 70 08/30/2009 02/26/2013 HTN, goal below 130/80 08/30/200911/14 Overview: Per HTN Protocol #27. History of drug allergy 08/29/200906/23 Dyslipidemia, goal LDL below 70 08/23/2009 02/26/2013 ACEI/ARB contraindicated 09/2013 documented as of this encounter (statuses as of 02/04/2024) Immunizations Name Administration Dates Next Due COVID-19 [...] encounter Miscellaneous Notes * Telephone Encounter - Carrie Duran RN - 02/04/2024 10:18 AM EST Pended gavin, compazine, EMLA documented in this encounter Plan of Treatment Upcoming Encounters Date Type Department Care Team (Latest Contact Info) Description 02/05/2024 2:00 PM EST Hem/Onc Treatment Hematology/Oncol ogy Treatment, [place] [address] [place] [phone] Marcyarmen, Chair 11 Hem Onc Scenery [address] [place] [address] 03/23/2024 8:40 AM EST Office Visit Family Practice [address], [place] [address] [place] [address] Pedro Luis Bowens, [address] [facility] [address] 04/21/2024 8:00 AM EST Hospital Encounter ENDO [facility], Endoscopy Room [facility] [address] [place] [phone] Jose E Bai MD [address] [place] [address] 04/21/2024 8:00 AM EST - 04/21/2024 8:45 AM EST Surgery ENDO [facility], Endoscopy Room [facility] [address] [place] [phone] Jose E Bai MD [address] [place] [address] ENDOSCOPIC RETROGRADE CHOLANGIOPANCREATOGRAPHY (ERCP) DIAGNOSTIC Scheduled Procedures Name Priority Associated Diagnoses Date/Ti in ENDOSCOPIC RETROGRADE CHOLANGIOPANCREATOGRAPHY (ERCP) DIAGNOSTIC Pancreatic mass [...] 06/23, 03/21/2023, Additional history exists Albumin/Creatinine Ratio 07/11/202407/11/ 024, 07/17/2022, 07/05/2021, Additional history exists Diabetic Foot Exam 07/11/2024 07/12/2023, 0 07/17/2022, 07/11/2021, Additional history exists Diabetic Eye Exam 07/21/2024 07/22/2023, , 07/12/2022, Additional history exists GFR 12/30/2024 12/31/2023, 10/23, 11/29/2022, Additional history exists DTap/Tdap Vaccines (3 - [...] this encounter Medical Devices Implanted Type Area Stores Assistant Device Identifier Shelf Expiration Date Model / Serial / Lot Stent Bili Duodenal [id number] - [id number] Implanted:Qty: 1 on 01/16/2024 by Jose E Bai MD at ENDOSCOPY [facility] N/A: Stomach [employer] 12/02/2025 D-1031-1 [id number] / / [id number] documented as of this encounter Visit Diagnoses Diagnosis 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)- Primary Pancreatic mass Unspecified disease of pancreas Liver mass Unspecified disorder of liver documented in this encounter Advance Directives * Full Code [...] Power of Attor ila? No Care Teams Bisque Tile Burner Relationship Specialty Start Date End Date Pedro Luis Bowens DO [address] [place] [address] PCP - General Internal Medicine 09/09/23 documented as of this encounter
--- OUTSIDE RECORDS SUMMARY | 2024-02-08 10:06 | External Medical Summary | Summary of Care ---
Author Name Unknown Organization [facility] Address [address] [place] [address] Phone [phone] Care Team Providers Care Casting Wheel Operator Name Role Phone Pedro Luis Bowens DO Primary Care Provider [phone] Reason for Visit * Reason Comments Outpatient Testing Encounter Details Date Type Department Care Team (Late st Contact Info) Description 02/04/2024 11:30 AM EST Laboratory Laboratory Scenery [place] [address] [place] [phone] [place], Lab Scenery [address] [place] [address] 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) Allergies Active Allergy Reactions Criticality Noted Date [...] hemoglobin A1c goal of less than 7.0% ([facility]),DM type 2 causing vascular disease ([facility]),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 25 or 0.5MG/DOS))Emily cations:Type 2 diabetes mellitus with hemoglobin A1c goal of less than 7.0% ([facility]) Inject 0.5 mg under the skin once [...] Encounter for antineoplastic chemotherapy 2023 Atherosclerosis of [place] ar teries of extremities with rest pain, bilateral legs 11/08/2023 Pulmonary hypertension, unspecified 07/17/2022 B12 deficiency 03/22/2022 Moderate aortic stenosis 11/28/2021 Occupational exposure to noise 09/27/2020 Coronary artery disease of n ative artery of [place] heart with stable angina pectoris 09/17/2019 Gastroesophageal [...] Per HTN Protocol #27. [employer] Other*[id number] 09/23/2009 05/01/2016 Overview (09/23/2009): Study Titile: Genomic Markers for Patients with Cardiovascular Disease Project #[id number] PI: Estela Sandoval MD Please call [phone] with study related questions Dyslipidemia, goal LDL [...] mRNA, LNP-s, No Pre serve, 2-Dose Series (Exerscrip) 07/17/2021,01/26/2021 Covid-19, Mrna, Lnp-s, Pf, B ivalent, [...] PM EST Hem/Onc Treatment Hematology/Oncol ogy Treatment, [place] [address] [place] [address] Marycarmen, Chair 11 Hem Onc Scenery [address] [place] [address] 03/23/2024 8:40 AM EST Office Visit Family Practice [address], [place] [address] [place] [address] Pedro Luis Bowens, 293 [place] [address] 04/21/2024 8:00 AM EST Hospital Encounter ENDO [facility]SS, Endoscopy Room [facility] [address] [place] [phone] Jose E Bai MD [address] [facility] [place] [address] 04/21/2024 8:00 AM EST - 04/21/2024 8:45 AM EST Surgery ENDO [facility], Endoscopy Room [facility] [address] [place] [phone] Jose E Bai MD [address] [facility] [place] [address] ENDOSCOPIC RETROGRADE CHOLANGIOPANCREATOGRAPHY (ERCP) DIAGNOSTIC Pending Results Name Type Priority Associated Diagnoses Date /Time COMPREHENSIVE METABOLIC PANEL Lab STAT 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) 02/04/2024 11:09 AM EST HEPATITIS B SURFACE ANTIBODY Lab STAT 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) 02/04/2024 11:09 AM EST HEPATITIS B SURFACE ANTIGEN Lab STAT 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) 02/04/2024 11:09 AM EST HEPATITIS B CORE ANTIBODIES IGG AND IGM Lab STAT 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) 02/04/2024 11:09 AM EST CA 19-9 Lab STAT 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) 02/04/2024 11:09 AM EST Scheduled Procedures Name Priority Associated Diagnoses Date/Ti [...] this encounter Medical Devices Implanted Type Area Manager Meeting Device Identifier Shelf Expiration Date Model / Serial / Lot Stent Bili Duodenal [id number] - [id number] Implanted:Qty: 1 on 01/16/2024 by Jose E Bai MD at ENDOSCOPY [facility] N/A: [employer] 12/02/2025 PBD-1031-1 007 / / [id number] documented as of this encounter Procedures Procedure Name Priority Date/Time Associated Diagnosis Comments DIFFERENTIAL, AUTOMATED STAT 02/04/2024 11:09 AM EST 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) CBC STAT 02/04/2024 11:09 AM EST 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) CBC STAT 02/04/2024 11:09 AM EST 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) documented in this encounter Results * (ABNORMAL) DIFFERENTIAL, AUTOMATED (02/04/2024 11:09 AM EST) WBC 9.01 4.00 - 10.80 K/uL 02/04/2024 11:19 AM EST [facility] 56-02 Neutrophils % 79.3(H) 40.0 - 75.0 % 02/04/2024 11:19 AM EST [facility] 56-02 Lymphocytes % 9.3(L) 18.0 - 42.0 % 02/04/2024 11:19 AM EST [facility] 56-02 Monocytes % 9.3 1.0 - 11.0 % 02/04/2024 11:19 AM EST [facility] 56-02 Eosinophils % 1.9 0.0 - 6.0 % 02/04/2024 11:19 AM EST [facility] 56-02 Basophils % 0.2 0.0 - 2.0 % 02/04/2024 11:19 AM EST [facility] 56-02 Absolute Neutrophils 7.14 1.80 - 7.70 K/uL 02/04/2024 11:19 AM EST [facility] 56-02 Absolute Lymphocytes 0.84(L) 1.00 - 4.80 K/ul 02/04/2024 11:19 AM EST [facility] 56- Absolute Monocytes 0.84 0.00 - 1.10 K/uL 02/04/2024 11:19 AM [facility] 56- Absolute Eosinophils 0.17 0.00 - 0.70 K/uL 02/04/2024 11:19 AM [facility] 56- Absolute Basophils 0.02 0.00 - 0.20 K/uL 02/04/2024 11:19 AM [facility] 56- Blood Venous blood specimen / Unknown Venipuncture / Unknown 02/04/2024 11:09 AM EST 02/04/2024 11:09 AM EST Marimar Del Castillo MD LAB BLOOD ORDERABLES Fin al Result [facility] 56- [address] [place] [address] * (ABNORMAL) CBC (02/04/2024 11:09 AM EST) WBC 9.01 4.00 - 10.80 K/uL 02/04/2024 11:19 AM [facility] 56 RBC 3.53 4.50 - 5.25 M/uL 02/04/2024 11:19 AM [facility] 56- HGB 10.1(L) 14.0 - 16.8 g/dL 02/04/2024 11:19 AM [facility] 56 HCT 31.6(L) 40.0 - 48.4 % 02/04/2024 11:19 AM [facility] 56- MCV 89.5 82.0 - 99.5 fL 02/04/2024 11:19 AM [facility] 56- MCH 28.6 27.0 - 34.0 pg 02/04/2024 11:19 AM [facility] 56- MCHC 32.0 32.0 - 36.0 g/dL 02/04/2024 11:19 AM [facility] 56- RDW 14.1 11.5 - 15.5 % 02/04/2024 11:19 AM [facility] 56- PLT 313 140 - 400 K/uL 02/04/2024 11:19 AM EST [facility] 56-02 MPV 8.3 6.6 - 11.1 fL 02/04/2024 11:19 AM EST [facility] 56-02 Blood Venous blood specimen / Unknown Venipuncture / Unknown 02/04/2024 11:09 AM EST 02/04/2024 11:09 AM EST Marimar Del Castillo MD LAB BLOOD ORDERABLES Fin al Result [facility] 56- [address] [place] [address] documented in this encounter Visit Diagnoses Diagnosis 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) Pancreatic mass Unspecified disease of pancreas Liver [...] Power of Attor ila? No Care Teams Casting Wheel Operator Relationship Specialty Start Date End Date Pedro Luis Bowens DO [address] [place] [address] PCP - General Internal Medicine 09/09/23 documented as of this encounter
--- OUTSIDE RECORDS SUMMARY | 2024-02-08 10:06 | External Medical Summary ---
Author Name Unknown Address Unknown Organization K09:[facility] [address] [place] [address] Laboratory Report Ordering Provider Test Date Status ROSARIO STRAUSS 02/04/2024 11:09:32 Final Observation Date Value Abnormality Reference (Units ) Status SYNC LEUKOCYTES IN BLOOD BY AUTOMATED COUNT 02/04/2024 11:09:32 9.01 4.00-10.80 (K/uL) Final Segs 02/04/2024 11:09:32 79.3 Above high normal 40.0-75.0 (%) Final Lymphs % 02/04/2024 11:09:32 9.3 Below low normal 18.0-42.0 (%) Final Monos 02/04/2024 11:09:32 9.3 1.0-11.0 (%) Final Eosinophils 02/04/2024 11:09:32 1.9 0.0-6.0 (%) Final Basos 02/04/2024 11:09:32 0.2 0.0-2.0 (%) Final Absolute Segs 02/04/2024 11:09:32 7.14 1.80-7.70 (K/uL) Final Lymphs, absolute 02/04/2024 11:09:32 0.84 Below low normal 1.00-4.80 (K/ul) Final Monos, Abs 02/04/2024 11:09:32 0.84 0.00-1.10 (K/uL) Final Eos, Abs 02/04/2024 11:09:32 0.17 0.00-0.70 (K/uL) Final Basos, Abs 02/04/2024 11:09:32 0.02 0.00-0.20 (K/uL) Final Performing Location [facility]- 02 - [address] [place] [address]
--- OUTSIDE RECORDS SUMMARY | 2024-02-08 10:06 | External Medical Summary | Summary of Care ---
Author Name Unknown Organization [facility] Address [address] [place] [address] Phone [phone] Care Team Providers Care Orchestra Musician Name Role Phone Pedro Luis Bowens DO Primary Care Provider Reason for Visit * Reason Comments Chemotherapy Day 1, cycle 1 gemza r, abraxane * Episode Based Medications (Routine) - Authorized Specialty Diagnoses / Procedures Referred By Heather sood Referred To Contact Diagnoses 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) Encounter for antineoplastic chemotherapy Procedures DC IN GEMCITABINE HCL NOS 200MG DC PACLITAXEL PROTEIN BOUND Marimar Del Castillo MD [address] [place] [address] Phone: tel: fax: Hematology/Oncology Treatment, [address] [address] Phone: tel: fax: Referral ID Status Reason Start Date Expiration Date V isits Requested Visits Authorized [id number] Authorized 01/29/2024 07/28/[phone] Encounter Details Date Type Department Care Team (Latest Contact Info) Description 02/05/2024 2:00 PM EST Hem/Onc Treatment Hematology/Oncolog y Treatment, [address] [address] Marycarmen, Chair 11 Hem On[address] [place] [address] 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)*; Encounter for antineoplastic chemotherapy Allergies Active Allergy Reactions Criticality Noted Date Comments Iodinated Contrast Media Rash 08/29/2009 Pt got a rash after his cath on 08/23/09 Levofloxacin 11/03/2009 Nausea jittery Lisinopril 10/01/2013 Cough Rash documented as of this encounter (statuses as of 02/05/2024) Medications ASPIRIN 81 MG PO CHEW Take [...] Cap by mouth daily before breakfast. 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 09/17/2019 Gastroesophageal [...] as of this encounter (statuses as of 02/05/2024) Resolved Problems Problem Noted Date Diagnosed Date Resolved Date Current mild episode of sania 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 [employer] Other*[id number] 09/23/2009 05/01/2016 Overview (09/23/2009): Study Titile: Genomic Markers for Patients with Cardiovascular Disease Project #[id number] PI: Estela Sandvoal MD Please call [phone] with study related questions Dyslipidemia, goal LDL below 70 08/30/2009 02/26/2013 HTN, goal below 130/80 08/30/200911/14 Overview: Per HTN Protocol #27. History of drug allergy 08/29/200906/23 Dyslipidemia, goal LDL below 70 08/23/2009 02/26/2013 ACEI/ARB contraindicated 09/2013 documented as of this encounter (statuses as of 02/05/2024) Immunizations Name Administration Dates Next Due COVID-19 [...] 03/21/2023 Does the household have a re lar source of income? (Household - for ages [...] AM EST documented as of this encounter Last Filed Vital Signs Vital Sign Reading Time Taken Comments Blood Pressure 137/69 02/05/2024 2:09 PM EST Pulse 87 02/05/2024 2:09 PM EST Temperature 36.8 C (98.2 F) 02/05/2024 2:09 PM ES T Respiratory Rate 18 02/05/2024 2:09 PM EST Oxygen Saturation 97% 02/05/2024 2:09 PM EST Inhaled Oxygen Concentration - - Weight 68.7 kg (151 lb 6.4 oz) 02/05/2024 2:09 P M EST Height - - Body Mass Index 24.44 01/28/2024 9:55 AM EST documented in this encounter Nursing Notes * Alma Stark RN - 02/05/2024 4:12 PM EST Infusion complete. Patient tolerated well. No s/s reaction noted. VAD with + blood return, flushed with 10 ml NSS and Heparin 5 ml (100 units/ml). Celis needle removed intact. Dry dressing applied. Goals: Patient will remain free from injury. Possible barriers to meeting goals: ambulating with IV pole Stability of the patient: Moderately stable - low risk of patient condition declining or worsening Summary regarding today's goals: Met: Patient remained free from harm/injury during treatment. Patient left facility in stable condition. * Alma Stark RN - 02/05/2024 2:26 PM EST Chair 9, patient here for treatment. Oriented patient and to room and procedures. Patient had a port placed on 02/03/24. Site WNL. VAD accessed without difficulty, + blood return noted. flushed with 10 ml NSS and dressing applied. Chemotherapy/Immunotherapy agents: abraxane and GEMZAR Consent for chemotherapy drug treatment complete, dated, and signed? yes, date - 01/28/24 Treatment lab parameters met? Yes reviewed labs with Dr. Del Castillo, MOHIT phos 516 ok to treat Has treatment weight changed > than 10%? No Treatment preauthorized? Yes VITALS Filed Vitals: 02/05/24 1409 BP: 137/69 Pulse: 87 Resp: 18 Temp: 36.8 C (98.2 F) TempSrc: Tympanic SpO2: 97% Weight: 68.7 kg (151 lb 6.4 oz) Urine protein: N/A Patient education completed for treatment? Yes Blood transfusion consent signed and complete? NA Return appointment scheduled? Yes Patient had provider visit today? No - If no provider visit must complete Pretreatment Assessment Functional Status: Functional status at today's visit: Fully active, able to carry on all pre-disease performance without restriction The drug name, dose, infusion volume, rate and route of administration, expiration date and time, appearance and physical integrity of the drug and rate set on the pump and sequencing of drug administration (as applicable) were verified by me and second sign-in RN. Patient was assessed for symptoms or adverse side effects during treatment. Patient Education: Patient instructed on use of heat and massage functions where applicable. Patient shown how to operate the heat function of the chair and to alert nursing staff if the chair feels too warm. Patient instructed on the risk of potential carias while using the heat function. PRE-TREATMENT ASSESSMENT: NEURO: denies symptoms CV/RESP: denies symptoms GI/: denies symptoms OTHER: denies any additional symptoms PAIN: 0 Safety and Risk for Injury Patient will remain free from injury. Ensure appropriate safety devices are available. Provide and maintain safe environment. documented in this encounter Plan of Treatment Upcoming Encounters Date Type Department Care Team (Latest Contact Info) Description 02/11/2024 10:00 AM EST [facility] [address] [facility] [place] [phone] [facility] [address] [facility] [place] [address] 02/12/2024 1:30 PM EST Hem/Onc Treatment [facility]ematology[address] [address] Marycarmen, Chair [address] Hem On[address] [place] [address] 02/19/2024 1:30 PM EST Office Visit Hematology/Oncol [place]gy [address] [place] [address] Gilda Banda CRNP [address] [place] [address] [place] [id number] 02/19/2024 2:00 PM EST Hem/Onc Treatment Hematology/Oncol [address]gy [address] [address] Marycarmen, Chair 3 Hem Onc [address] [place] [address] 03/23/2024 8:40 AM EST Office Visit Family Practice [address], [place] [address] [facility] [place] [address] Pedro Luis Bowens, 293 [place] [address] 04/21/2024 8:00 AM EST Hospital Encounter ENDO [facility], Endoscopy Room [facility] [address] [facility] [place] [phone] Jose E Bai MD 132 [facility] [place] [address] 04/21/2024 8:00 AM EST - 04/21/2024 8:45 AM EST Surgery ENDO [facility], Endoscopy Room [facility] 132 [facility] [place] [phone] Jose E Bai MD 132 [facility] [place] [address] ENDOSCOPIC RETROGRADE CHOLANGIOPANCREATOGRAPHY (ERCP) DIAGNOSTIC Scheduled Procedures Name Priority Associated Diagnoses Date/Ti nh ENDOSCOPIC RETROGRADE CHOLANGIOPANCREATOGRAPHY (ERCP) DIAGNOSTIC Pancreatic mass [...] Depression Screening 03/21/2024 03/21/2023 HbA1c 05/10/2024 11/08/2023, 04/11/2023, 03/21/2023, Additional history exists Albumin/Creatinine Ratio 07/11/2024 024, 07/17/2022, 07/05/2021, Additional history exists Diabetic Foot Exam 07/11/2024 07/12/2023, 0 07/17/2022, 07/11/2021, Additional history exists Diabetic Eye Exam 07/21/2024 07/22/2023, , 07/12/2022, Additional history exists GFR 02/03/2025 02/04/2024, 10/2023, 11/08/2023, Additional history exists DTap/Tdap Vaccines [...] this encounter Medical Devices Implanted Type Area Medical Delivery Driver Device Identifier Shelf Expiration Date Model / Serial / Lot Stent Bili Duodenal [id number] - [id number] Implanted:Qty: 1 on 01/16/2024 by Jose E Bai MD at ENDOSCOPY [facility] N/A: Stomach [employer] 12/02/2025 [id number] / / [id number] documented as of this encounter Visit Diagnoses Diagnosis 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)- Primary Encounter for antineoplastic chemotherapy Pancreatic mass Unspecified disease of pancreas Liver mass Unspecified disorder of liver documented in this encounter Administered Medications Active Administered Medications - up to 3 most recent administrations Medication Order MAR Action Action Date Dose Rate Site diphenhydrAMINE (Benadryl) inj 50 mg 50 mg, IV Push, ONCE PRN Other, Hypersensitivity Reaction, Starting on Sat02/05/24 at 1408, Until Sat02/06/24 at 1407, For 24 hoursIndications: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),Encounter for antineoplastic chemotherapy EPINEPHrine 1 MG/ML inj 0.3 mg 0.3 mg, Intramuscular, ONCE PRN Other, Hypersensitivity Reaction or Anaphylaxis, Starting on Sat02/05/24 at 1408, Until Sat02/06/24 at 1407, For 24 hoursIndications: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),Encounter for antineoplastic chemotherapy hEParin 100 UNIT/ML Lock Flush inj 500 Units 500 Units (5 mL), IV Lock, PRN Other, IV Flush, Starting on Sat02/05/24 at 1408, Until Silvia 02/06/24 at 1407, For 24 hours, Do not flush if lock, PICC, or central line not in place; IV infusing or unable to flush.Indications: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),Encounter for antineoplastic chemotherapy Given 02/05/2024 3:58 PM EST 500 Units Hydrocortisone Sod Suc (PF) (Solu-Cortef) inj 100 mg 100 mg, IV Push, ONCE PRN Other, Hypersensitivity Reaction, Starting on Sat02/05/24 at 1408, Until Sat02/06/24 at 1407, For 24 hoursIndications: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),Encounter for antineoplastic chemotherapy LORAzepam (Ativan) tab 0.5 mg 0.5 mg, Oral, ONCE PRN Anxiety, Nausea, Starting on Sat02/05/24 at 1515, Until DiscontinuedIndications:Odanah stasis from pancreatic cancer (HCC),Encounter for antineoplastic chemotherapy NSS infusion Intravenous, at 50 mL/hr, PRN, Starting on Sat02/05/24 at 1515, Until Discontinued, Maintenance lineIndications: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),Encounter for antineoplastic chemotherapy Start Infusion 02/05/2024 2:22 PM EST 50 mL/hr oxygen GAS Inhalation, OXYGEN, First dose on Sat02/05/24 at 1600, Until Discontinued, Device/Managed by: Low Flow Device, Goal SPO2 (%): 91-95, Starting Device: Nasal Cannula, Initial Flow Rate (LPM): 2, Lowest Support: Nasal Cannula: Flow 0-6 LPM. Titrate up/down by 1 LPM., Higher Support: Non-Rebreather (NRB) Mask: Minimum of 10 LPM. Titrate to maintain bag inflation., Titration Interval: Q2 minutes and as needed., Notify Provider: For sudden DECREASE in resting SPO2 to less than 85% and when escalating delivery device., Wean patient off Oxygen when the oxygen saturation is greater than or equal to 93%Indications: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),Encounter for antineoplastic chemotherapy sodium chloride 0.9 % flush central line 10 mL 10 mL, IV Push, PRN Other, IV Flush, Starting on Sat02/05/24 at 1408, Until Silvia 02/06/24 at 1407, For 24 hours, Do not flush if lock, PICC, or central line not in place; IV infusing or unable to flush.Indications: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),Encounter for antineoplastic chemotherapy Given 02/05/2024 3:57 PM EST 10 mL Inactive Administered Medications - up to 3 most recent administrations Medication Order MAR Action Action Date Dose Rate Site gemcitabine (Gemzar) 1,600 mg in NSS 250 mL infusion 1,600 mg (rounded from 1,620 mg = 900 mg/m2 1.8 m2 Treatment Plan BSA from Recorded weight), IV Piggyback, ONCE, 1 dose, On Sat02/05/24 at 1615, Administer over 30 MinutesIndications:Metastas is from pancreatic cancer (HCC),Encounter for antineoplastic chemotherapy Start Infusion 02/05/2024 3:24 PM EST 1,600 mg 510 mL/hr ondansetron (Zofran) tab 8 mg 8 mg, Oral, ONCE, On Sat02/05/24 at 1430, For 1 dose, Give 30 minutes prior to chemotherapy.Indications:Me tastasis from pancreatic cancer (HCC),Encounter for antineoplastic chemotherapy Given 02/05/2024 2:19 PM EST 8 mg PACLitaxel protein-bound (Abraxane) inj 200 mg 200 mg (rounded from 202.5 mg = 112.5 mg/m2 1.8 m2 Treatment Plan BSA from Recorded weight), IV Piggyback, ONCE, 1 dose, On Sat02/05/24 at 1545, Administer over 30 Minutes, PROTECT FROM LIGHT Use Dedicated line Without FilterIndications:Metastasi s from pancreatic cancer (HCC),Encounter for antineoplastic chemotherapy Start Infusion 02/05/2024 2:39 PM EST 200 mg 80 mL/hr documented in this encounter Advance Directives * [...] patient have Health Care Power of Attor lia? No Care Teams Orchestra Musician Relationship Specialty Start Date End Date Pedro Luis Bowens DO [address] [place] [address] PCP - General Internal Medicine 09/09/23 documented as of this encounter
--- OUTSIDE RECORDS SUMMARY | 2024-02-08 10:06 | External Medical Summary ---
Author Name Unknown Address Unknown Organization [id number]:[facility] [place] [address] Laboratory Report Ordering Provider Test Date Status ROSARIO STRAUSS 02/04/2024 11:09:32 Final Observation Date Value Abnormality Reference (Units ) Status WBC, Total 02/04/2024 11:09:32 9.01 4.00-10.8 0 (K/uL) Final RBC 02/04/2024 11:09:32 3.53 4.50-5.25 (M/uL) Final Hemoglobin 02/04/2024 11:09:32 10.1 Below low normal 14 .0-16.8 (g/dL) Final HCT 02/04/2024 11:09:32 31.6 Below low normal 40. 0-48.4 (%) Final MCV 02/04/2024 11:09:32 89.5 82.0-99.5 (fL) Final MCH 02/04/2024 11:09:32 28.6 27.0-34.0 (pg) Final MCHC 02/04/2024 11:09:32 32.0 32.0-36.0 (g/dL) Final RDW 02/04/2024 11:09:32 14.1 11.5-15.5 (%) Final Platelets 02/04/2024 11:09:32 313 140-400 (K /uL) Final MPV 02/04/2024 11:09:32 8.3 6.6-11.1 ( fL) Final Performing Location [facility] [place] [address]
--- OUTSIDE RECORDS SUMMARY | 2024-02-08 10:06 | External Medical Summary ---
Author Name Unknown Address Unknown Organization K09:[facility] [address] [place] [address] Laboratory Report Ordering Provider Test Date Status ROSARIO STRAUSS 02/04/2024 11:09:32 Final Observation Date Value Abnormality Reference (Units ) Status BUN 02/04/2024 11:09:32 20 6-20 (mg/dL) Final Creatinine 02/04/2024 11:09:32 0.9 0.6-1.2 (mg/dL) Final Glomerular filtration rate/1.73 sq M.predicted [Volume Rate/Area] in Serum, Plasma or Blood by Creatinine-based formula (CKD-EPI) 02/04/2024 11:09:32 88 >=60 (mL/min) Final eGFR is calculated based on the CKD-EPI 2020 equation. Sodium 02/04/2024 11:09:32 134 Below low normal 135 -146 (mmol/L) Final Potassium 02/04/2024 11:09:32 4.8 3.5-5.1 (m mol/L) Final Cl 02/04/2024 11:09:32 98 98-107 (mm ol/L) Final CO2 02/04/2024 11:09:32 25 22-32 (mmo l/L) Final Anion gap 02/04/2024 11:09:32 11 7-15 (mmol /L) Final Glucose 02/04/2024 11:09:32 201 Above high normal 70 -120 (mg/dL) Final Albumin 02/04/2024 11:09:32 3.4 Below low normal 3.8 -5.0 (g/dL) Final AST (Aspartate aminotransferase) 02/04/2024 11:09:32 42 10-50 (U/L) Fin al Alk Phos 02/04/2024 11:09:32 516 Above high normal 35 -130 (U/L) Final Bilirubin, Total 02/04/2024 11:09:32 0.7 <=1 .2 (mg/dL) Final Calcium 02/04/2024 11:09:32 10.0 8.4-10.2 ( mg/dL) Final Protein 02/04/2024 11:09:32 6.4 6.0-8.3 (g /dL) Final ALT (Alanine aminotransferase) 02/04/2024 11:09:32 25 10-50 (U/L) Alexys amador Performing Location [facility] [address] [place] [address]
--- OUTSIDE RECORDS SUMMARY | 2024-02-08 10:06 | External Medical Summary | Summary of Care ---
Author Name Unknown Organization [facility] Address [address] [place] [address] Phone [phone] Care Team Providers Care Plate Washer Name Role Phone Pedro Luis Bowens DO Primary Care Provider [phone] Reason for Visit * Reason Comments Education Encounter Details Date Type Department Care Team (Late st Contact Info) Description 02/04/2024 10:30 AM EST Pt Ed by Nurse Hematology/Oncology [facility] [place] [address] [place] [phone] Marycarmen Nurse Hem Onc [facility] [address] [place] [address] Allergies Active Allergy Reactions Criticality Noted Date [...] goal of less than 7.0% ([facility]),DM type 2 causing vascular disease ([facility]),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 [employer] Other*[id number] 09/23/2009 05/01/2016 Overview (09/23/2009): Study Titile: Genomic Markers for Patients with Cardiovascular Disease Project #[id number] PI: Estela Sandoval MD Please call [phone] with study related questions Dyslipidemia, goal LDL [...] mRNA, LNP-s, No Pre serve, 2-Dose Series (FormaFina) 07/17/2021,01/26/2021 Covid-19, Mrna, Lnp-s, Pf, B ivalent, [...] PM EST Hem/Onc Treatment Hematology/Oncol ogy Treatment, [place] [address] [place] [address] Marycarmen, Chair 11 Hem Onc [address] [place] [address] 03/23/2024 8:40 AM EST Office Visit Family Practice [address], [place] [address] [place] [address] Pedro Luis Bowens, [address] [place] [address] 04/21/2024 8:00 AM EST Hospital Encounter ENDO OSS, Endoscopy Room OSS [address] [place] [address] Jose E Bai MD 132 [facility] [place] [address] 04/21/2024 8:00 AM EST - 04/21/2024 8:45 AM EST Surgery ENDO [facility], Endoscopy Room [facility] [address] [place] [phone] Jose E Bai MD 132 [facility] [place] [address] ENDOSCOPIC RETROGRADE CHOLANGIOPANCREATOGRAPHY (ERCP) DIAGNOSTIC Scheduled Procedures [...] this encounter Medical Devices Implanted Type Area Conference And Event Organiser Device Identifier Shelf Expiration Date Model / Serial / Lot Stent Bili Duodenal [id number] - [id number] Implanted:Qty: 1 on 01/16/2024 by Jose E Bai MD at ENDOSCOPY [facility] N/A: Stomach [employer] 12/02/2025 [id number] / / [id number] documented as of this encounter Advance Directives [...] Power of Attor ila? No Care Teams Plate Washer Relationship Specialty Start Date End Date Pedro Luis Bowens DO [address] [place] [address] PCP - General Internal Medicine 09/09/23 documented as of this encounter
--- OUTSIDE RECORDS SUMMARY | 2024-02-08 10:06 | External Medical Summary ---
Author Name Unknown Address Unknown Organization K01:[facility] - [address] [facility] [address] [place] [address] Laboratory Report Ordering Provider Test Date Status ROSARIO STRAUSS 02/04/2024 11:09:32 Final Observation Date Value Abnormality Reference (Units ) Status Cancer Ag 19-9 02/04/2024 11:09:32 >[id number] Above high normal <35.0 (U/mL) Final Performing Location [facility] - [address] [place] [address]
--- OUTSIDE RECORDS SUMMARY | 2024-02-08 10:06 | External Medical Summary ---
Author Name Unknown Address Unknown Organization K01:[facility] [place] [address] [facility] [address] [place] [address] Laboratory Report Ordering Provider Test Date Status DECLAN STRAUSSON 02/04/2024 11:09:32 Final Observation Date Value Abnormality Reference (Units) Status Hepatitis B virus surface Ab [Units/volume] in Serum or Plasma by Immunoassay 02/04/2024 11:09:32 <3.5 (mIU/mL) Final Hepatitis B virus surface Ab [Presence] in Serum by Immunoassay 02/04/2024 11:09:32 Negative Final HEPATITIS B SURFACE ANTIBODY, INTERPRETATION 02/04/2024 11:09:32 NOT immune to Hepatitis B Virus Final POSITIVE: >=11.5 mIU/mL
INDETERMINATE: 8.5-<11.5 mIU/mL
NEGATIVE: <8.5 mIU/mL Performing Location [facility] [place] - [facility] [place] [address]
--- NOTE | 2024-02-08 10:35 | XCELERA ---
[id number] \\[email or web address]\[id number]
--- NOTE | 2024-02-08 10:55 | Hospitalist Progress Note ---
Date of Service February 08, 2024 Assessment & Plan (1) Severe sepsis: Plan Pt is a 78yoM with PMhx significant for metastatic pancreatic cancer currently under going chemotherapy, CAD status post CABG, moderate , pulmonary hypertension, hypertension, hyperlipidemia, DM2 on oral medications, chronic anemia (baseline hemoglobin 10-11), BPH, urolithiasis, past tobacco abuse who presented with fevers and chills. Sepsis Acute Cholangitis Colitis Elevated liver Enzymes Metastatic Pancreatic cancer patient presenting with fevers and chills noted to be febrile History of metastatic pancreatic cancer currently undergoing chemotherapy with recent port placement with recent chemo, no leukocytosis noted Lactate elevated at 2.7 before downtrending to normal value Chest x-ray unremarkable BioFire negative UA unremarkable CT abdomen pelvis noting possible acute cholecystitis and obstructed stent, possible colitis, pancreatic head mass, hepatic metastasis MRCP noting pancreatic head mass with narrow common bile duct, stent in place, distended gallbladder, multifocal hepatic metastasis Possible sources of infection: Biliary pathology, possible cholecystitis/cholangitis, colitis blood cultures x 2 sets currently pending Continue with IV Zosyn and daptomycin patient also currently on LR GI consulted, appreciate recs. Per admitting provider: (ED provider already in touch with Dr. Montes who initially recommended transfer to tertiary center. [facility] [place] GI specialist (Dr. Rivera) does not feel urgent transfer needed for ERCP as per communication with ED provider.) General Surgery consulted appreciate recs -recommending HIDA scan, ordered Continue to monitor Chest Pain Elevated Trop Hx CAD status post CABG Transient chest pain at the ER Trops elevated at 77.2 to 566.1 to 675 to 1107.8, repeat pending Possible ST elevation OR inferior leads on initial EKG Echo from 02/08/24 noting EF of 55 to 60%, severe hypokinesis to akinesis of the basal, inferolateral and basal inferior wall segments, mild concentric left ventricular hypertrophy, mild left atrial dilation, mild to moderate aortic stenosis, mild mitral regurgitation, normal right ventricular systolic pressure. Noted that wall motion abnormalities are stable from previous comparison. ED provider reportedly was in touch with mash processing operator (Dr. Phillips). -reportedly advised that presentation not true ACS as per discussion, recommend medical management for now. -Corporate Planning Manager recommends IV heparin if with further troponin elevation. Patient follows with [facility] cardiology, cardiology consult placed for further evaluation. Appreciate recs Acute on Chronic Anemia patient with noted hemoglobin of 9.5 which down trended to 7.6 Iron panel noting iron within normal limits, B12 and folate appear supplemented or normal No overt source of bleed, FOBT negative Patient was transfused on admission for hemoglobin less than 8 Received 1 unit of packed RBCs on 02/08/2024 hemoglobin on repeat greater than 9 Continue to monitor and transfuse as needed Hypertension BP on the lower side on admission Improved with IV fluids, continue with home atenolol and Imdur at this time Continue to monitor Hyperlipidemia on statin Rx, continue DMII on oral medications reasonable control as of recent hemoglobin A1c of 7.25 October 2023, repeat pending basal bolus insulin per protocol hx BPH Continue home flomax Diet: clears DVT prophylaxis: Lovenox subcu Dispo: PT/OT ordered for further recs CODE STATUS: full code Admission and Anticipated Discharge Date Admission Date: February 08, 2024 Subjective patient was seen multiple times during the day Initially in the a.m. laying in bed Was receiving a blood transfusion in the morning Later called to bedside by nursing as patient's family including , 3 daughters, granddaughter who works in radiology here as well as son-in-law who are all present at bedside. discussion with family about results of MRCP. Also discussed recommendations from gastroenterology, general surgery and the need for cardiology to evaluate as well. Review of Systems Review of Systems: All systems reviewed & are unremarkable except as noted in Subjective Physical Exam Physical Exam: General: Alert, oriented. No acute distress Psych: Appropriate mood and affect Neuro: No gross deficits while sitting in bed HEENT: NC/AT CV: RRR Resp: Breath sounds clear bilaterally, no increased effort of breathing Abdomen:Soft, tender Results & Data Results & Data Vital Signs (Past 12 Hours) Vital Signs Temp Pulse Pulse Resp BP BP Pulse Ox 02/08/24 09:57 36.4 C L 71 18 142/78 H 97 02/08/24 08:57 36.4 C L 73 18 148/72 H 98 02/08/24 07:57 36.4 C L 70 18 120/69 97 02/08/24 07:27 36.4 C L 68 16 117/63 96 02/08/24 07:12 36.4 C L 71 18 110/58 L 98 02/08/24 06:55 36.3 C L 70 16 131/62 98 02/08/24 05:30 36.4 C L 02/08/24 04:36 36.4 C L 72 16 107/59 L 02/08/24 02:26 36.6 C 89 16 123/65 96 02/08/24 02:00 02/08/24 01:55 81 02/08/24 01:12 83 16 110/56 L 96 02/08/24 00:30 85 21 116/62 97 02/07/24 23:53 88 20 109/66 97 02/07/24 23:19 91 H O2 Del Method 02/08/24 09:57 02/08/24 08:57 02/08/24 07:57 02/08/24 07:27 02/08/24 07:12 02/08/24 06:55 02/08/24 05:30 02/08/24 04:36 02/08/24 02:26 Room Air 02/08/24 02:00 Room Air 02/08/24 01:55 02/08/24 01:12 02/08/24 00:30 02/07/24 23:53 Room Air 02/07/24 23:19 Diagnostic Findings Chest X-Ray 02/07/24 18:57 Exam(s): XR CXR 1 VIEW EXAM: XR Chest, 1 View CLINICAL HISTORY: Reason for exam: Sepsis. TECHNIQUE: Frontal view of the chest. COMPARISON: Chest x-ray 02/03/24. FINDINGS: Lungs: Clear. No consolidation. Pleural space: No pneumothorax. Heart: No cardiomegaly. Mediastinum: Stable postsurgical change and atherosclerosis aortic arch. Bones/Soft Tissues: No acute abnormality. Tubes/Lines: Stable implanted catheter via the right chest, tip SVC. IMPRESSION: 1. No acute process, and no change. Electronically signed by: Suyapa Jacobs M.D. 02/07/24 22:42 PM Abdomen/Pelvis CT 02/07/24 20:10 Exam(s): CT ABDOMEN + PELVIS With Contrast IV Amt: optiray 320 94ml EXAM: CT Abdomen and Pelvis With Intravenous Contrast CLINICAL HISTORY: Reason for exam: septic, biliary stent, pancreatic CA. TECHNIQUE: Axial computed tomography images of the abdomen and pelvis with intravenous contrast. CTDI is 19 mGy and DLP is 931 mGy-cm. Automated exposure control was utilized for the study. A dose lowering technique was utilized adhering to the principles of ALARA. CONTRAST: Patient received optiray 320 94ml of IV contrast COMPARISON: CT abdomen pelvis 12/16/07. FINDINGS: Lung bases: Clear. No gross mass or pleural effusion. Liver: Innumerable hepatic hypodensities, largest 4.5 cm in the right lobe, nonspecific, probable metastatic disease. Pneumobilia, not unusual given that there is a biliary stent. No intrahepatic ductal dilatation. Gallbladder and bile ducts: Severe distended gallbladder, given biliary stent, cystic duct obstruction, acute cholecystitis or obstructed stent are not excluded. No ductal dilation. Pancreas: 3.2 cm mass of the pancreatic head, in keeping with history of pancreatic cancer. No ductal dilation, or acute pancreatitis. Spleen: Unremarkable. Adrenals: Unremarkable. Kidneys and ureters: No hydronephrosis. Stomach and bowel: Moderate, 6 cm focal wall thickening, cannot rule out obstructing mass at the hepatic flexure, axial series 3/139. Moderate fecal loaded right colon, could also be physiologic. There is also wall thickening in the distal colon, intermittent colitis is also in the differential considerations. No small bowel obstruction. Diverticulosis without diverticulitis. Appendix: Intraperitoneal space: No free air or fluid. Bones/joints: No acute fracture. Soft tissues: Fat-containing left inguinal hernia. Vasculature: No aortic aneurysm. Lymph nodes: Mildly prominent lymph nodes in the heber hepatis. Bladder: Mildly distended, wall thickening is nonspecific, may be artifact, cystitis not excluded. Reproductive: Moderate, nonspecific prostatomegaly. IMPRESSION: 1. Severe distended gallbladder, given biliary stent, cystic duct obstruction, acute cholecystitis or obstructed stent must be excluded. 2. Colonic obstruction at the hepatic flexure, concerning for an underlying mass. Cannot entirely rule out an intermittent colitis, as there is wall thickening in the distal colon. 3. Mass of the pancreatic head, hepatic metastasis, biliary stent, no CBD dilatation. Electronically signed by: Suyapa Jacobs M.D. 02/07/24 22:39 PM Cholangiopancreatography MRI 02/08/24 01:04 MR MRCP HISTORY: 78 years-old Male abd pain acute generalized abdominal pain in a patient with history of metastatic pancreatic carcinoma. COMPARISON: CT 02/07/2024 TECHNIQUE: MRCP was obtained without IV contrast utilizing institutional protocol. FINDINGS: Motion degraded exam. Mild right hemidiaphragmatic elevation. Cardiomegaly. No acute process identified within the imaged lower chest. Median sternotomy. Numerous hepatic metastatic lesions are redemonstrated measuring up to approximately 4.3 cm. Trace perihepatic ascites. Pneumobilia with intrahepatic biliary ductal dilation redemonstrated. The degree of motion degradation and biliary stent however limits the study. Common bile duct measures up to 12 mm transversely. There is abrupt narrowing at the level of the mid common bile duct at the level of the pancreatic head mass on image 21 series 4. The gallbladder is distended with mild wall thickening and layering fluid fluid level suggestive of sludge versus vicarious excretion of iodinated contrast. Pneumobilia. Filling defects/stent within the common bile duct. No definitive choledocholithiasis identified considering the limitations as above. Borderline enlarged periportal lymph nodes redemonstrated. There is no hydronephrosis. Bilateral perinephric stranding. No bowel obstruction or bowel wall thickening. No acute fracture identified. IMPRESSION: 1. Limited exam as above, notably with respiratory motion artifact. 2. Pancreatic head mass is redemonstrated with resultant narrowing of the common bile duct. 3. Common bile duct stent in place with common bile duct dilation upstream to the pancreatic head mass. 4. Distended gallbladder with wall thickening redemonstrated. Correlate clinically to exclude acute cholecystitis. No definite cholelithiasis identified. 5. Multifocal hepatic metastasis with likely metastatic periportal lymph nodes. ACT 112: Negative or not required by law. The above report was generated using voice recognition software. It may contain grammatical, syntax or spelling errors. Electronically signed by: Manuel Calderon M.D. 02/08/2024 12:26 PM
[2024-02-08 11:01] LABS: Hemoglobin 9.3 g/dl (14.0-18.0)
--- NOTE | 2024-02-08 12:28 | Magnetic Resonance Report ---
MR MRCP HISTORY: 78 years-old Male abd pain acute generalized abdominal pain in a patient with history of me tastatic pancreatic carcinoma. COMPARISON: CT 02/07/2024 TECHNIQUE: MRCP was obtained without IV contrast utilizing institutional protocol. FINDINGS: Motion degraded exam. Mild right hemidiaphragmatic elevation. Cardiomegaly. No acute process identifi ed within the imaged lower chest. Median sternotomy. Numerous hepatic metastatic lesions are redemonstrated measuring up to approximately 4.3 cm. Trace pe rihepatic ascites. Pneumobilia with intrahepatic biliary ductal dilation redemonstrated. The degree o f motion degradation and biliary stent however limits the study. Common bile duct measures up to 12 m m transversely. There is abrupt narrowing at the level of the mid common bile duct at the level of th e pancreatic head mass on image 21 series 4. The gallbladder is distended with mild wall thickening a nd layering fluid fluid level suggestive of sludge versus vicarious excretion of iodinated contrast. Pneumobilia. Filling defects/stent within the common bile duct. No definitive choledocholithiasis elissa ntified considering the limitations as above. Borderline enlarged periportal lymph nodes redemonstrat ed. There is no hydronephrosis. Bilateral perinephric stranding. No bowel obstruction or bowel wall thick ening. No acute fracture identified. IMPRESSION: 1. Limited exam as above, notably with respiratory motion artifact. 2. Pancreatic head mass is redemonstrated with resultant narrowing of the common bile duct. 3. Common bile duct stent in place with common bile duct dilation upstream to the pancreatic head mas s. 4. Distended gallbladder with wall thickening redemonstrated. Correlate clinically to exclude acute c holecystitis. No definite cholelithiasis identified. 5. Multifocal hepatic metastasis with likely metastatic periportal lymph nodes. ACT 112: Negative or not required by law. The above report was generated using voice recognition software. It may contain grammatical, syntax o r spelling errors. Electronically signed by: Manuel Calderon M.D. 02/08/2024 12:26 PM
--- NOTE | 2024-02-08 20:03 | Surgery Consultation ---
Date of Consultation February 08, 2024 Assessment & Plan (1) Abnormal LFTs: Patient is a 78-year-old male who was recently diagnosed with metastatic pancreatic cancer within the last month and has had a stent placed within his CBD by [employer]. The day after his first chemotherapy treatment this week he developed a fever and chills and presented to the emergency department. Patient was also complaining of some epigastric pain but also intermittent abdominal pain that has been present for a few weeks now. Upon workup his lab work showed an elevated T. bili of 1.2 along with an elevated troponin level. CT imaging with results of severe distended gallbladder along with colonic obstruction of the hepatic flexure concerning for underlying mass and also cannot rule out intermittent colitis due to some wall thickening of the distal colon. MRCP performed today demonstrated again a distended gallbladder with wall thickening along with pancreatic head mass narrowing the common bile duct - common bile duct stent is in place. Surgery team was consulted for possible acute cholecystitis along with findings of colitis on imaging. Patient was seen and evaluated at bedside this evening, he is resting comfortably and stable vitals. Patient with no acute abdominal complaints at this time. Overall he does have intermittent abdominal pain but states it is diffusely throughout both his upper and lower abdomen. He has no clinical signs of acute cholecystitis. He has been able to eat, although recently his appetite has been poor. When he does eat he is able to tolerate food without any worsening pain, nausea or emesis. I discussed with the patient his imaging findings and that due to his metastatic cancer he is not a surgical candidate. I also discussed with the patient that if he would start with symptoms consistent with cholecystitis there is also a potential option for perc khai tube placement. However, patient states that he is not having any symptoms and would like to not have any procedures/surgeries if it is not absolutely necessary at this time. Supervising Physician Co-Signing Physician Notes I have seen the patient this am and after further discussion, his primary concern is not delaying his CTX as he would like to extend his life expectancy as long as he can. He states that after discussion with his medical oncologist, he is expecting 2-3 months. He is amenable then to have a HIDA scan to definitively determine whether or not there is obstruction of the GB susceptible to causing significant infection and if so, he is amenable to an IR inserted percutaneous cholecystostomy tube. Of note, the patient states his symptoms are resolved. He is able to elicit very minimal residual TTP at the RUQ and tolerates a diet. I have discussed my conversation with the patient with the medical doctor, Dr. Ly and she agrees with our overall plan. She will be discussing the case further with his medical oncologist, Dr. Del Castillo. History of Present Illness Reason for Consultation: r/o acute cholecystitis History of Present Illness Patient is a 78-year-old male with a past medical history significant for CAD status post CABG, AAS, pulmonary hypertension, HTN, HLD, DM2, BPH, and recent diagnosis of metastatic pancreatic cancer. Patient states that he was recently diagnosed within the last month and had a stent placed within his CBD by [employer]. Patient also had a port placed and had just started chemotherapy this week. Patient states that the day after chemotherapy he was eating dinner and felt feverish, when he checked it was found to be 101.5 , he had called the on- call provider who prompted him to come to the ED for further evaluation. Patient also had complaints of some mild epigastric discomfort at the time of his arrival to emergency department. Patient states that over the last few weeks he has had generalized abdominal pain in both upper and lower regions and he has also had decreased appetite. However he tells me when he does eat he has no issues of worsening abdominal pain, nausea or emesis. He states he simply just doesn't feel hungry. Upon workup lab work showed elevated troponin and Tbili of 1.2, his CT demonstrated a severely dilated gallbladder along with a colonic obstruction at the hepatic flexure concerning for underlying mass. He also underwent MRCP again demonstrating distended gallbladder with wall thickening which could not exclude acute cholecystitis along with pancreatic head mass narrowing the common bile duct. Patient was seen and evaluated this evening at bedside. He is resting comfortably in bed, stable vitals, and has no complaints at this time. Patient states he has had intermittent abdominal pain over the last few weeks however is not specific in nature. States at times the pain is in his upper abdominal/epigastric region but others it is in his lower abdomen. He denies any nausea or vomiting and is able to tolerate PO intake when he feels hungry. On exam is abdomen is soft and mildly distended and does have some discomfort in his lower mid-abdomen region with palpation. Allergies Allergy/AdvReac Type Severity Reaction Status Date / Time Iodinated Contrast Media Allergy Intermediate Rash Verified 02/03/24 12:55 levofloxacin Allergy Intermediate RASH Verified 02/03/24 12:55 lisinopril AdvReac Mild Cough Verified 02/03/24 12:56 Home Medications Medication Instructions Recorded Confirmed Type multivitamin (Multiple Vitamins 1 tab PO QPM 12/02/18 02/07/24 History tablet) atorvastatin 80 mg tablet 80 mg PO QPM 01/06/19 02/07/24 History cholecalciferol (vitamin D3) 50 2,000 units PO QAM 01/06/19 02/07/24 History mcg (2,000 unit) tablet clopidogrel 75 mg tablet 75 mg PO QAM 01/06/19 02/07/24 History ezetimibe 10 mg tablet 10 mg PO HS 01/06/19 02/07/24 History metformin 500 mg tablet 500 mg PO .COMPLEX 01/06/19 02/07/24 History nitroglycerin 0.4 mg sublingual 0.4 mg sublingual Q5M PRN Chest 01/06/19 02/07/24 History tablet Pain #1 tab ranolazine 1,000 mg 1,000 mg PO Q12H #180 tabs 01/06/19 02/07/24 History tablet,extended release,12 hr triamcinolone acetonide 0.1 % 1 appln topical BID PRN Rash 01/06/19 02/07/24 Hi story topical cream tamsulosin 0.4 mg capsule 0.4 mg PO BID #180 caps 12/03/19 02/07/24 Rx fluticasone propionate 50 1 spray intranasal DAILY 03/16/20 02/07/24 History mcg/actuation nasal spray,suspension albuterol sulfate 90 mcg/actuation 2 inh inhalation Q6H PRN SOB 09/17/22 02/07/24 History breath activated powder inhaler atenolol 50 mg tablet 50 mg PO QAM 03/14/23 02/07/24 History pantoprazole 20 mg tablet,delayed 20 mg PO QAM 01/30/24 02/07/24 History release oxycodone-acetaminophen 5 mg-325 1 tab PO Q6H PRN pain #14 tabs 02/03/24 02/07/24 Rx mg tablet (Percocet) L.acidoph-L.rhamn-B.bifidum-B.long 1 tab PO DAILYBB 02/07/24 02/07/24 History 12.9 mg (2 billion cell) tablet, DR aspirin 81 mg tablet,delayed 81 mg PO QPM 02/07/24 02/07/24 History release cyanocobalamin (vitamin B-12) 1,000 mcg IM .EVERY 30 DAYS 02/07/24 02/07/24 History 1,000 mcg/mL injection solution docusate sodium 100 mg capsule 100 mg PO BID 02/07/24 02/07/24 History iron,carbonyl 65 mg-vitamin C 125 1 tab PO Q OTHER DAY 02/07/24 02/07/24 History mg tablet,delayed release (Vitron-C) isosorbide mononitrate 60 mg 120 mg PO QAM 02/07/24 02/07/24 History tablet,extended release 24 hr lidocaine-prilocaine 2.5 %-2.5 % 1 applic topical UD 02/07/24 02/07/24 History topical cream ondansetron HCl 8 mg tablet 8 mg PO Q8 PRN Nausea 02/07/24 02/07/24 History polyethylene glycol 3350 17 17 g PO DAILY 02/07/24 02/07/24 History gram/dose oral powder (Miralax) prochlorperazine maleate 10 mg 10 mg PO Q6 PRN Nausea 02/07/24 02/07/24 History tablet semaglutide 0.25 mg or 0.5 mg (2 0.5 mg subcut WK 02/07/24 02/07/24 History mg/3 mL) subcutaneous pen injector (Ozempic) Patient History Medical History Pancreatic cancer stage 4; now with mets Hx of renal calculi Dyspnea reason for inhaler, uses every morning Angina pectoris chronic stable class I per cardio; follows closely with [facility] Cardio Non Q wave myocardial infarction 2002; 'questionable per pt' CAD (coronary artery disease) CABG August 1999, LM and LAD stents August 2009, RCA and LAD stents September 2009 Aortic stenosis follows with Dr. Lunsford; mild-mod per 08/27/23 ECHO BPH (benign prostatic hyperplasia) GERD (gastroesophageal reflux disease) Hyperlipidemia Hypertension Type 2 diabetes mellitus Surgical History Hx of CABG 1999 > 4 vessels > [facility] > follows with Dr. Lunsford History of insertion of pancreatic stent (01/16/24) [facility] Hx of biopsy (12/2023) pancreas and liver History of left cataract surgery History of esophagogastroduodenoscopy (EGD) History of colonoscopy History of tooth extraction History of tonsillectomy H/O lithotripsy Hx of cardiac cath 2009 > 5 stents - [facility] (LM and LAD stents August 2009, RCA and LAD stents September 2009) Family History Father Myocardial infarction Other Diabetes Heart disease Social History Smoking Status: Former smoker Tobacco Type: Cigarettes Second Hand Exposure: No; Do You Dip or Chew Tobacco: No; Hx Alcohol Use: Yes Hx Substance Use: No Preferred Language: Ukrainian Communication Ability: Effective Document Management Analyst Required: No Beliefs That Will Affect Care: None marital status: Current Living Situation: Significant Other Feels Safe at Home: Yes Safety Concerns: Feels Safe At This Time Assistive Devices: Hearing Aid - Bilateral Review of Systems Review of Systems: All systems reviewed & are unremarkable except as noted in HPI & below Physical Exam Constitutional: WD/WN, vitals as above Respiratory: normal respiratory effort, lungs clear to auscultation Cardiovascular: Rate/Rhythm: regular rate and regular rhythm Heart Sounds: + murmur Gastrointestinal (Abdomen): Abdomen is soft with some mild distention. +Minimally tender to palpation over the mid/lower region without rebound or guarding. Nontender in the RUQ and negative Rosado's sign. Skin: no rashes, warm and dry Results & Data Vital Signs (Past 12 Hours) Vital Signs Temp Pulse Pulse Resp BP BP Pulse Ox 02/08/24 19:06 36.5 C 80 18 137/69 99 02/08/24 16:07 36.3 C L 77 18 131/64 97 02/08/24 15:46 79 02/08/24 12:23 36.2 C L 73 18 129/65 98 02/08/24 09:57 36.4 C L 71 18 142/78 H 97 02/08/24 08:57 36.4 C L 73 18 148/72 H 98 O2 Del Method 02/08/24 19:06 Room Air 02/08/24 16:07 Room Air 02/08/24 15:46 02/08/24 12:23 Room Air 02/08/24 09:57 02/08/24 08:57 Diagnostic Findings EXAM: CT Abdomen and Pelvis With Intravenous Contrast CLINICAL HISTORY: Reason for exam: septic, biliary stent, pancreatic CA. TECHNIQUE: Axial computed tomography images of the abdomen and pelvis with intravenous contrast. CTDI is 19 mGy and DLP is 931 mGy-cm. Automated exposure control was utilized for the study. A dose lowering technique was utilized adhering to the principles of ALARA. CONTRAST: Patient received optiray 320 94ml of IV contrast COMPARISON: CT abdomen pelvis 12/16/07. FINDINGS: Lung bases: Clear. No gross mass or pleural effusion. Liver: Innumerable hepatic hypodensities, largest 4.5 cm in the right lobe, nonspecific, probable metastatic disease. Pneumobilia, not unusual given that there is a biliary stent. No intrahepatic ductal dilatation. Gallbladder and bile ducts: Severe distended gallbladder, given biliary stent, cystic duct obstruction, acute cholecystitis or obstructed stent are not excluded. No ductal dilation. Pancreas: 3.2 cm mass of the pancreatic head, in keeping with history of pancreatic cancer. No ductal dilation, or acute pancreatitis. Spleen: Unremarkable. Adrenals: Unremarkable. Kidneys and ureters: No hydronephrosis. Stomach and bowel: Moderate, 6 cm focal wall thickening, cannot rule out obstructing mass at the hepatic flexure, axial series 3/139. Moderate fecal loaded right colon, could also be physiologic. There is also wall thickening in the distal colon, intermittent colitis is also in the differential considerations. No small bowel obstruction. Diverticulosis without diverticulitis. Appendix: Intraperitoneal space: No free air or fluid. Bones/joints: No acute fracture. Soft tissues: Fat-containing left inguinal hernia. Vasculature: No aortic aneurysm. Lymph nodes: Mildly prominent lymph nodes in the heber hepatis. Bladder: Mildly distended, wall thickening is nonspecific, may be artifact, cystitis not excluded. Reproductive: Moderate, nonspecific prostatomegaly. IMPRESSION: 1. Severe distended gallbladder, given biliary stent, cystic duct obstruction, acute cholecystitis or obstructed stent must be excluded. 2. Colonic obstruction at the hepatic flexure, concerning for an underlying mass. Cannot entirely rule out an intermittent colitis, as there is wall thickening in the distal colon. 3. Mass of the pancreatic head, hepatic metastasis, biliary stent, no CBD dilatation. MR MRCP HISTORY: 78 years-old Male abd pain acute generalized abdominal pain in a patient with history of metastatic pancreatic carcinoma. COMPARISON: CT 02/07/2024 TECHNIQUE: MRCP was obtained without IV contrast utilizing institutional protocol. FINDINGS: Motion degraded exam. Mild right hemidiaphragmatic elevation. Cardiomegaly. No acute process identified within the imaged lower chest. Median sternotomy. Numerous hepatic metastatic lesions are redemonstrated measuring up to approximately 4.3 cm. Trace perihepatic ascites. Pneumobilia with intrahepatic biliary ductal dilation redemonstrated. The degree of motion degradation and biliary stent however limits the study. Common bile duct measures up to 12 mm transversely. There is abrupt narrowing at the level of the mid common bile duct at the level of the pancreatic head mass on image 21 series 4. The gallbladder is distended with mild wall thickening and layering fluid fluid level suggestive of sludge versus vicarious excretion of iodinated contrast. Pneumobilia. Filling defects/stent within the common bile duct. No definitive choledocholithiasis identified considering the limitations as above. Borderline enlarged periportal lymph nodes redemonstrated. There is no hydronephrosis. Bilateral perinephric stranding. No bowel obstruction or bowel wall thickening. No acute fracture identified. IMPRESSION: 1. Limited exam as above, notably with respiratory motion artifact. 2. Pancreatic head mass is redemonstrated with resultant narrowing of the common bile duct. 3. Common bile duct stent in place with common bile duct dilation upstream to the pancreatic head mass. 4. Distended gallbladder with wall thickening redemonstrated. Correlate clinically to exclude acute cholecystitis. No definite cholelithiasis identified. 5. Multifocal hepatic metastasis with likely metastatic periportal lymph nodes. PG Care Time/CCT Total # of Minutes Spent Total Time Spent with Patient: Total time spent is greater than 50% in coordination of care (as documented) at patient's floor/unit and/or counseling patient: Coding Level of Care Code 36176 INT INP/OBS CARE 1/40MIN Medical Decision Making Moderate Complexity Diagnoses Abnormal LFTs R79.89
[2024-02-08] MEDS: MULTIVITAMIN TAB PO SCH (20:23)
[2024-02-08] MEDS: EZETIMIBE 10 MG TAB PO SCH (20:23)
[2024-02-08] MEDS: ASPIRIN 81 MG ECTAB PO SCH (20:23)
[2024-02-08] MEDS: DAPTOmycin 375 MG in SYRINGE 0 ML IV SCH (23:43)
--- NOTE | 2024-02-09 00:47 | Communication Note ---
Date of Service: February 09, 2024 Patient requested to talk to croze machine operator to review options presented by Surgery service for possible cholecystitis in relation to cancer prognosis of at least 3 months as per outpatient discussion with his [facility] oncologist (Dr. Del Castillo). I told patient that he would be better off addressing question to Dr. Del Castillo. Will request a.m. provider to contact Dr. Del Castillo in AM to facilitate phone/video communication if possible.
[2024-02-09] MEDS: ACETAMINOPHEN 500 MG TAB PO PRN (02:48)
[2024-02-09 05:52] LABS: Eosinophils # (auto) 0.03 K/uL (0.00-0.50); Eosinophils % (auto) 0.6 %; Hematocrit (blood only) 27.2 % (42.0-52.0); Hemoglobin 9.1 g/dl (14.0-18.0); Immature Granulocytes # (auto) 0.05 K/uL (0.01-0.20); Lymphocytes # (auto) 0.42 K/uL (1.20-3.40); Lymphocytes % (auto) 8.1 %; Mean Corpuscular Hemoglobin 28.1 pg (25.0-34.0); Mean Corpuscular Hgb Conc 33.5 g/dL (32.0-36.0); Mean Platelet Volume 9.3 fL (9.4-12.4); Monocytes # (auto) 0.08 K/uL (0.11-0.59); Monocytes % (auto) 1.6 %; Neutrophils # (auto) 4.58 K/uL (1.40-6.50); Neutrophils % (auto) 88.7 %; Platelet Count 197 K/uL (130-400); RDW Coefficient of Variation 13.7 % (11.5-14.5); RDW Standard Deviation 42.4 fL (36.4-46.3); Red Blood Count 3.24 M/uL (4.70-6.10); White Blood Count 5.16 K/ul (4.8-10.8)
[2024-02-09 06:07] LABS: Albumin Level 2.6 gm/dl (3.4-5.0); BUN Creatinine Ratio 32.6 (10-20); Bilirubin,Total 1.1 mg/dl (0.2-1.0); Calcium 8.9 mg/dl (8.6-10.3); Creatinine Clr Calc Pharmacy 60.7 ml/min; Globulin 2.5 gm/dl (2.5-4.0); Magnesium 1.8 mg/dl (1.7-2.4); Phosphorus 2.8 mg/dl (2.5-4.9); Potassium 4.2 mmol/L (3.5-5.1); Total Protein 5.1 gm/dl (6.0-8.3)
[2024-02-09 07:19] LABS: Estimated Average Glucose 154 mg/dl
--- NOTE | 2024-02-09 09:08 | Gastroenterology Progress Note ---
Date of Service February 09, 2024 Assessment & Plan (1) Abnormal LFTs: Plan: Agree with surgical evaluation and HIDA scan. At some point we may either need to consider repeat CT to look at hepatic flexure or repeat colonoscopy. His next chemo round is scheduled for saturday and he would like to ge able to get that. Admission and Anticipated Discharge Date Admission Date: February 08, 2024 Subjective Feels better. Says fever is gone. Surgery is addressing his distended gallbladder. Physical Exam Physical Exam: He looks well Constitutional: WD/WN, vitals as above Results & Data Vital Signs (Past 12 Hours) Vital Signs Temp Pulse Pulse Resp BP BP Pulse Ox 02/09/24 08:41 78 02/09/24 07:36 36.4 C L 82 18 147/84 H 98 02/09/24 02:44 36.8 C 86 18 144/81 H 97 02/08/24 22:48 36.6 C 77 18 138/73 95 02/08/24 22:39 81 O2 Del Method 02/09/24 08:41 02/09/24 07:36 Room Air 02/09/24 02:44 Room Air 02/08/24 22:48 Room Air 02/08/24 22:39
--- NOTE | 2024-02-09 09:46 | Surgery Progress Note ---
Date of Service February 09, 2024 Assessment & Plan (1) Fever: (2) Abdominal pain: Plan: MRI evidence for GB wall thickening Recommend obtain HIDA IR consultation for percutaneous GB drainage if HIDA (+) Continue IV abx for now Admission and Anticipated Discharge Date Admission Date: February 08, 2024 Supervising Physician Co-Signing Physician Notes I have seen the patient this am and after further discussion, his primary concern is not delaying his CTX as he would like to extend his life expectancy as long as he can. He states that after discussion with his medical oncologist, he is expecting 2-3 months. He is amenable then to have a HIDA scan to definitively determine whether or not there is obstruction of the GB susceptible to causing significant infection and if so, he is amenable to an IR inserted percutaneous cholecystostomy tube. Of note, the patient states his symptoms are resolved. He is able to elicit very minimal residual TTP at the RUQ and tolerates a diet. I have discussed my conversation with the patient with the medical doctor, Dr. Ly and she agrees with our overall plan. She will be discussing the case further with his medical oncologist, Dr. Del Castillo. Physical Exam Constitutional: + thin; not in distress and not diaphore tic Gastrointestinal (Abdomen): minimal to no TTP RUQ Results & Data Vital Signs (Past 12 Hours) Vital Signs Temp Pulse Pulse Resp BP BP Pulse Ox 02/09/24 08:41 78 02/09/24 07:36 36.4 C L 82 18 147/84 H 98 02/09/24 02:44 36.8 C 86 18 144/81 H 97 02/08/24 22:48 36.6 C 77 18 138/73 95 02/08/24 22:39 81 O2 Del Method 02/09/24 08:41 02/09/24 07:36 Room Air 02/09/24 02:44 Room Air 02/08/24 22:48 Room Air 02/08/24 22:39 PG Care Time/CCT Total # of Minutes Spent Total Time Spent with Patient: Total time spent is greater than 50% in coordination of care (as documented) at patient's floor/unit and/or counseling patient: Coding Level of Care Code 27969 SUB INP/OBS CARE 1/25MIN Diagnoses Fever R50.9 Fever type: unspecified Abdominal pain R10.9 (1) Fever Fever type: unspecified Qualified Code(s): R50.9 - Fever, unspecified
--- NOTE | 2024-02-09 11:37 | Hospitalist Progress Note ---
Date of Service February 09, 2024 Assessment & Plan (1) Severe sepsis: Plan Pt is a 78yoM with PMhx significant for metastatic pancreatic cancer currently under going chemotherapy, CAD status post CABG, moderate , pulmonary hypertension, hypertension, hyperlipidemia, DM2 on oral medications, chronic anemia (baseline hemoglobin 10-11), BPH, urolithiasis, past tobacco abuse who presented with fevers and chills. Sepsis Acute Cholangitis Colitis Elevated liver Enzymes Metastatic Pancreatic cancer patient presenting with fevers and chills noted to be febrile History of metastatic pancreatic cancer currently undergoing chemotherapy with recent port placement with recent chemo, no leukocytosis noted Lactate elevated at 2.7 before downtrending to normal value Chest x-ray unremarkable BioFire negative UA unremarkable CT abdomen pelvis noting possible acute cholecystitis and obstructed stent, possible colitis, pancreatic head mass, hepatic metastasis MRCP noting pancreatic head mass with narrow common bile duct, stent in place, distended gallbladder, multifocal hepatic metastasis Possible sources of infection: Biliary pathology, possible cholecystitis/cholangitis, colitis blood cultures x 2 sets NGTD Continue with IV Zosyn and daptomycin patient also currently on LR GI consulted, appreciate recs. Per admitting provider: (ED provider already in touch with Dr. oMntes who initially recommended transfer to tertiary center. [facility] GI specialist (Dr. Rivera) does not feel urgent transfer needed for ERCP as per communication with ED provider.) General Surgery consulted, appreciate recs -recommending HIDA scan, ordered Heme/Onc (pt's oncologist Dr Del Castillo) also contacted on 02/09/24 per pt request- patient concerned about missing his next chemotherapy session. Dr. Del Castillo did speak with the patient on 02/09/2024 and recommended no chemotherapy until follow-up with him. Continue to monitor Chest Pain Elevated Trop Hx CAD status post CABG Transient chest pain at the ER Trops elevated at 77.2 to 566.1 to 675 to 1107.8, repeat pending Possible ST elevation IA inferior leads on initial EKG Echo from 02/08/24 noting EF of 55 to 60%, severe hypokinesis to akinesis of the basal, inferolateral and basal inferior wall segments, mild concentric left ventricular hypertrophy, mild left atrial dilation, mild to moderate aortic stenosis, mild mitral regurgitation, normal right ventricular systolic pressure. Noted that wall motion abnormalities are stable from previous comparison. ED provider reportedly was in touch with first front ventilator (Dr. Phillips). -reportedly advised that presentation not true ACS as per discussion, recommend medical management for now. Patient follows with [facility] cardiology, cardiology consult placed for further evaluation. Recommended/stated the following: - continue aspirin -Resume Plavix if no contraindication after procedures -Heparin not needed -No angina -Chest pain likely related to cancer/gallbladder -Follow-up with patient's primary vallez filter operator Dr. Lunsford on discharge Continue to monitor on telemetry Acute on Chronic Anemia patient with noted hemoglobin of 9.5 which down trended to 7.6 Iron panel noting iron within normal limits, B12 and folate appear supplemented or normal No overt source of bleed, FOBT negative Patient was transfused on admission for hemoglobin less than 8 Received 1 unit of packed RBCs on 02/08/2024 hemoglobin on repeat greater than 9 Continue to monitor and transfuse as needed Stable Hypertension BP on the lower side on admission Improved with IV fluids, continue with home atenolol and Imdur at this time Continue to monitor Hyperlipidemia on statin Rx, continue DMII on oral medications reasonable control as of recent hemoglobin A1c of 7.25 October 2023, repeat pending basal bolus insulin per protocol hx BPH Continue home flomax Diet: full liquids, advance as tolerated DVT prophylaxis: Lovenox subcu Dispo: PT/OT ordered for further recs CODE STATUS: full code Admission and Anticipated Discharge Date Admission Date: February 08, 2024 Subjective patient was seen in the a.m. sitting up in bed That he tolerated the clears, agreeable to advancing to full liquid diet today Reportedly overnight patient with questions about a possible surgery for possible acute cholecystitis versus having his chemo continued. Advised by no cturnist that patient would like his oncologist Dr. Del Castillo notified. Dr. Del Castillo was contacted and did speak with the patient. Currently advising no further chemo until follow-up with him Review of Systems Review of Systems: All systems reviewed & are unremarkable except as noted in Subjective Physical Exam Physical Exam: General: Alert, oriented. No acute distress Psych: Appropriate mood and affect Neuro: No gross deficits while sitting in bed HEENT: NC/AT CV: RRR Resp: Breath sounds clear bilaterally, no increased effort of breathing Abdomen:Soft, tender Results & Data Results & Data Vital Signs (Past 12 Hours) Vital Signs Temp Pulse Pulse Resp BP BP Pulse Ox 02/09/24 11:00 36.6 C 78 18 144/78 H 99 02/09/24 08:41 78 02/09/24 07:36 36.4 C L 82 18 147/84 H 98 02/09/24 02:44 36.8 C 86 18 144/81 H 97 O2 Del Method 02/09/24 11:00 Room Air 02/09/24 08:41 02/09/24 07:36 Room Air 02/09/24 02:44 Room Air Diagnostic Findings Chest X-Ray 02/07/24 18:57 Exam(s): XR CXR 1 VIEW EXAM: XR Chest, 1 View CLINICAL HISTORY: Reason for exam: Sepsis. TECHNIQUE: Frontal view of the chest. COMPARISON: Chest x-ray 02/03/24. FINDINGS: Lungs: Clear. No consolidation. Pleural space: No pneumothorax. Heart: No cardiomegaly. Mediastinum: Stable postsurgical change and atherosclerosis aortic arch. Bones/Soft Tissues: No acute abnormality. Tubes/Lines: Stable implanted catheter via the right chest, tip SVC. IMPRESSION: 1. No acute process, and no change. Electronically signed by: Suyapa Jacobs M.D. 02/07/24 22:42 PM Abdomen/Pelvis CT 02/07/24 20:10 Exam(s): CT ABDOMEN + PELVIS With Contrast IV Amt: optiray 320 94ml EXAM: CT Abdomen and Pelvis With Intravenous Contrast CLINICAL HISTORY: Reason for exam: septic, biliary stent, pancreatic CA. TECHNIQUE: Axial computed tomography images of the abdomen and pelvis with intravenous contrast. CTDI is 19 mGy and DLP is 931 mGy-cm. Automated exposure control was utilized for the study. A dose lowering technique was utilized adhering to the principles of ALARA. CONTRAST: Patient received optiray 320 94ml of IV contrast COMPARISON: CT abdomen pelvis 12/16/07. FINDINGS: Lung bases: Clear. No gross mass or pleural effusion. Liver: Innumerable hepatic hypodensities, largest 4.5 cm in the right lobe, nonspecific, probable metastatic disease. Pneumobilia, not unusual given that there is a biliary stent. No intrahepatic ductal dilatation. Gallbladder and bile ducts: Severe distended gallbladder, given biliary stent, cystic duct obstruction, acute cholecystitis or obstructed stent are not excluded. No ductal dilation. Pancreas: 3.2 cm mass of the pancreatic head, in keeping with history of pancreatic cancer. No ductal dilation, or acute pancreatitis. Spleen: Unremarkable. Adrenals: Unremarkable. Kidneys and ureters: No hydronephrosis. Stomach and bowel: Moderate, 6 cm focal wall thickening, cannot rule out obstructing mass at the hepatic flexure, axial series 3/139. Moderate fecal loaded right colon, could also be physiologic. There is also wall thickening in the distal colon, intermittent colitis is also in the differential considerations. No small bowel obstruction. Diverticulosis without diverticulitis. Appendix: Intraperitoneal space: No free air or fluid. Bones/joints: No acute fracture. Soft tissues: Fat-containing left inguinal hernia. Vasculature: No aortic aneurysm. Lymph nodes: Mildly prominent lymph nodes in the heber hepatis. Bladder: Mildly distended, wall thickening is nonspecific, may be artifact, cystitis not excluded. Reproductive: Moderate, nonspecific prostatomegaly. IMPRESSION: 1. Severe distended gallbladder, given biliary stent, cystic duct obstruction, acute cholecystitis or obstructed stent must be excluded. 2. Colonic obstruction at the hepatic flexure, concerning for an underlying mass. Cannot entirely rule out an intermittent colitis, as there is wall thickening in the distal colon. 3. Mass of the pancreatic head, hepatic metastasis, biliary stent, no CBD dilatation. Electronically signed by: Suyapa Jacobs M.D. 02/07/24 22:39 PM Cholangiopancreatography MRI 02/08/24 01:04 MR MRCP HISTORY: 78 years-old Male abd pain acute generalized abdominal pain in a patient with history of metastatic pancreatic carcinoma. COMPARISON: CT 02/07/2024 TECHNIQUE: MRCP was obtained without IV contrast utilizing institutional prot ocol. FINDINGS: Motion degraded exam. Mild right hemidiaphragmatic elevation. Cardiomegaly. No acute process identified within the imaged lower chest. Median sternotomy. Numerous hepatic metastatic lesions are redemonstrated measuring up to approximately 4.3 cm. Trace perihepatic ascites. Pneumobilia with intrahepatic biliary ductal dilation redemonstrated. The degree of motion degradation and biliary stent however limits the study. Common bile duct measures up to 12 mm transversely. There is abrupt narrowing at the level of the mid common bile duct at the level of the pancreatic head mass on image 21 series 4. The gallbladder is distended with mild wall thickening and layering fluid fluid level suggestive of sludge versus vicarious excretion of iodinated contrast. Pneumobilia. Filling defects/stent within the common bile duct. No definitive choledocholithiasis identified considering the limitations as above. Borderline enlarged periportal lymph nodes redemonstrated. There is no hydronephrosis. Bilateral perinephric stranding. No bowel obstruction or bowel wall thickening. No acute fracture identified. IMPRESSION: 1. Limited exam as above, notably with respiratory motion artifact. 2. Pancreatic head mass is redemonstrated with resultant narrowing of the common bile duct. 3. Common bile duct stent in place with common bile duct dilation upstream to the pancreatic head mass. 4. Distended gallbladder with wall thickening redemonstrated. Correlate clinically to exclude acute cholecystitis. No definite cholelithiasis identified. 5. Multifocal hepatic metastasis with likely metastatic periportal lymph nodes. ACT 112: Negative or not required by law. The above report was generated using voice recognition software. It may contain grammatical, syntax or spelling errors. Electronically signed by: Manuel Calderon M.D. 02/08/2024 12:26 PM
--- NOTE | 2024-02-09 14:08 | Cardiology Consultation ---
Date of Consultation February 09, 2024 Assessment & Plan (1) Non-ST elevation (NSTEMI) myocardial infarction: (2) CAD (coronary artery disease): (3) Aortic stenosis: (4) Hypertension: (5) Hx of CABG: (6) S/P coronary artery stent placement: Plan ASSESSMENT/PLAN: 1. NSTEMI: He did not present with acute coronary syndrome. Elevated troponin likely due to demand ischemia in the setting of multivessel CAD, metastatic pancreatic cancer and presenting with febrile process with possible cholecystitis. Heparin is not necessary from a cardiac perspective. Continue antiplatelet therapy. No angina. 2. Chest pain: His chest pain is completely different than prior angina. Chest discomfort is likely related to his other noncardiac processes as noted. 3. CAD s/p CABG x 4 and PCI x 5 (LM, LAD, RCA): No angina. Chronically on dual antiplatelet therapy. Continue antiplatelet therapy. If Plavix is being held for potential procedures, continue aspirin 81 mg daily. Continue beta-aleida. Continue nitrate therapy. If no contraindication, can continue Ranexa on d ischarge to improve quality of life with ambulation. Ranexa not necessary while hospitalized. Resume high intensity statin therapy when able. 4. Aortic stenosis: Nonsevere. Continue to monitor in the outpatient setting with his primary spray crew. 5. Hypertension: Blood pressure has been normotensive to mildly hypertensive. Continue home beta-aleida. If blood pressure becomes more elevated consistently, further adjustments can be made to his antihypertensive regimen as per primary hospitalist service. 6. Anemia: As per primary hospitalist service. 7. Disposition: Patient care communicated with primary hospitalist, Dr. Ly. Please call with any further questions or concerns. Cardiology will sign off at this time. Follow-up with his primary spray crew, Dr. Lunsford, upon discharge. Thank you for allowing me to participate in the care of your patient. Please call for any other questions or concerns. Sincerely, Km Bender M.D. History of Present Illness Reason for Consultation: elevated troponin Requesting Physician: Anca Ly MD Attending Physician: Anca Ly MD History of Present Illness Mr. Gutierrez is a very pleasant 78-year-old gentleman with a history significant for CAD s/p CABG x 4 ([facility] 1999), PCI x 5 (left main, LAD, RCA), myocardial infarction, aortic stenosis, hypertension, dyslipidemia type 2 diabetes, and metastatic pancreatic cancer. His primary spray crew is Dr. Lunsford. He describes chronic and stable dyspnea on exertion for which she sometimes takes nitroglycerin. He has been on antianginal therapy in the form of beta- aleida, nitrate therapy, and Ranexa. He has not had angina which he recalls as chest discomfort in the past, prompting revascularization. He has been on dual antiplatelet therapy chronically. He was hospitalized on 02/08/2024 after presenting with fever and shaking chills at home. He was recently diagnosed with metastatic pancreatic cancer and started chemotherapy on 02/05/2024. He continues to have dyspnea on exertion which is chronic and stable. He has been experiencing upper abdominal, epigastric, and lower chest pain across his chest. He describes the sensation as an indigestion. He takes Tums with some benefit. He states that this symptom is different than prior angina. He describes the sensation as a twinge that typically resolves less than 5 minutes. It has occurred while hospitalized, most recently overnight. It is not triggered by exertion. He denies melena, hematochezia, hematuria, or other bleeding. He has chronic left lower extremity swelling and has undergone SVG harvest of his left leg. He denies orthopnea, syncope, near syncope, palpitations. He vomited after presentation to the hospital and receiving Benadryl in the ER. Review of systems: As above. Family history: Noncontributory. Social history: He quit smoking at the age of 40. Occasional alcohol. No drugs. Lives at home with his . Has 2 daughters. Several members of his family were present at the bedside, including his , daughter, grandchildren. Allergies Allergy/AdvReac Type Severity Reaction Status Date / Time Iodinated Contrast Media Allergy Intermediate Rash Verified 02/03/24 12:55 levofloxacin Allergy Intermediate RASH Verified 02/03/24 12:55 lisinopril AdvReac Mild Cough Verified 02/03/24 12:56 Home Medications Medication Instructions Recorded Confirmed Type multivitamin (Multiple Vitamins 1 tab PO QPM 12/02/18 02/07/24 History tablet) atorvastatin 80 mg tablet 80 mg PO QPM 01/06/19 02/07/24 History cholecalciferol (vitamin D3) 50 2,000 units PO QAM 01/06/19 02/07/24 History mcg (2,000 unit) tablet clopidogrel 75 mg tablet 75 mg PO QAM 01/06/19 02/07/24 History ezetimibe 10 mg tablet 10 mg PO HS 01/06/19 02/07/24 History metformin 500 mg tablet 500 mg PO .COMPLEX 01/06/19 02/07/24 History nitroglycerin 0.4 mg sublingual 0.4 mg sublingual Q5M PRN Chest 01/06/19 02/07/24 History tablet Pain #1 tab ranolazine 1,000 mg 1,000 mg PO Q12H #180 tabs 01/06/19 02/07/24 History tablet,extended release,12 hr triamcinolone acetonide 0.1 % 1 appln topical BID PRN Rash 01/06/19 02/07/24 History topical cream tamsulosin 0.4 mg capsule 0.4 mg PO BID #180 caps 12/03/19 02/07/24 Rx fluticasone propionate 50 1 spray intranasal DAILY 03/16/20 02/07/24 History mcg/actuation nasal spray,suspension albuterol sulfate 90 mcg/actuation 2 inh inhalation Q6H PRN SOB 09/17/22 02/07/24 History breath activated powder inhaler atenolol 50 mg tablet 50 mg PO QAM 03/14/23 02/07/24 History pantoprazole 20 mg tablet,delayed 20 mg PO QAM 01/30/24 02/07/24 History release oxycodone-acetaminophen 5 mg-325 1 tab PO Q6H PRN pain #14 tabs 02/03/24 02/07/24 Rx mg tablet (Percocet) L.acidoph-L.rhamn-B.bifidum-B.long 1 tab PO DAILYBB 02/07/24 02/07/24 History 12.9 mg (2 billion cell) tabletDR aspirin 81 mg tablet,delayed 81 mg PO QPM 02/07/24 02/07/24 History release cyanocobalamin (vitamin B-12) 1,000 mcg IM .EVERY 30 DAYS 02/07/24 02/07/24 History 1,000 mcg/mL injection solution docusate sodium 100 mg capsule 100 mg PO BID 02/07/24 02/07/24 History iron,carbonyl 65 mg-vitamin C 125 1 tab PO Q OTHER DAY 02/07/24 02/07/24 History mg tablet,delayed release (Vitron-C) isosorbide mononitrate 60 mg 120 mg PO QAM 02/07/24 02/07/24 History tablet,extended release 24 hr lidocaine-prilocaine 2.5 %-2.5 % 1 applic topical UD 02/07/24 02/07/24 History topical cream ondansetron HCl 8 mg tablet 8 mg PO Q8 PRN Nausea 02/07/24 02/07/24 History polyethylene glycol 3350 17 17 g PO DAILY 02/07/24 02/07/24 History gram/dose oral powder (Miralax) prochlorperazine maleate 10 mg 10 mg PO Q6 PRN Nausea 02/07/24 02/07/24 History tablet semaglutide 0.25 mg or 0.5 mg (2 0.5 mg subcut WK 02/07/24 02/07/24 History mg/3 mL) subcutaneous pen injector (Ozempic) Problem List (Updated 02/09/24 @ 14:02 by Leonard Bender MD) S/P coronary artery stent placement Non-ST elevation (NSTEMI) myocardial infarction Abdominal pain Fever (Acute) Pancreatic cancer metastasized to liver (Acute) Acute non-ST elevation myocardial infarction (NSTEMI) (Acute) Abnormal LFTs Severe sepsis Encounter for pre-operative examination Hx of CABG 1999 > 4 vessels > [facility] > follows with Dr. Lunsford Angina pectoris chronic stable class I per cardio Aortic stenosis (Acute) CAD (coronary artery disease) (Acute) Dry skin (Acute) Enlarged prostate with lower urinary tract symptoms (LUTS) (Acute) Former smoker (Acute) GERD (gastroesophageal reflux disease) (Acute) Hypercholesterolemia (Acute) Hypertension (Acute) Nephrolithiasis (Acute) Non Q wave myocardial infarction (Acute) 2002 Shortness of breath (Acute) per pt, uses inhaler in AM and resolved Type 2 diabetes mellitus (Acute) Patient History Medical History Pancreatic cancer stage 4; now with mets Hx of renal calculi Dyspnea reason for inhaler, uses every morning Angina pectoris chronic stable class I per cardio; [place] [facility] [place] [facility] Non Q wave myocardial infarction 2002; 'questionable per pt' CAD (coronary artery disease) CABG August 1999, LM and LAD stents August 2009, RCA and LAD stents September 2009 Aortic stenosis follows with Dr. Lunsford; mild-mod per 08/27/23 ECHO BPH (benign prostatic hyperplasia) GERD (gastroesophageal reflux disease) Hyperlipidemia Hypertension Type 2 diabetes mellitus Surgical History Hx of CABG 1999 > 4 vessels > [facility] > follows with Dr. Lunsford History of insertion of pancreatic stent (01/16/24) [facility] Hx of biopsy (12/2023) pancreas and liver History of left cataract surgery History of esophagogastroduodenoscopy (EGD) History of colonoscopy History of tooth extraction History of tonsillectomy H/O lithotripsy Hx of cardiac cath 2009 > 5 stents - [facility] (LM and LAD stents August 2009, RCA and LAD stents September 2009) Family History Father Myocardial infarction Other Diabetes Heart disease Social History Smoking Status: Former smoker Tobacco Type: Cigarettes Second Hand Exposure: No; Do You Dip or Chew Tobacco: No; Hx Alcohol Use: Yes Hx Substance Use: No Preferred Language: Libyan Communication Ability: Effective 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 Alert and oriented. HEENT: Anicteric sclera. Neck: No JVD. No bruits. Normal carotid upstrokes bilaterally. Cardiac: Regular. Normal S1-S2. 2/6 early peaking systolic ejection murmur best heard at the right upper sternal border. Pulmonary: Clear to auscultation bilaterally without wheezes, rales, or rhonchi. Abdomen: Soft, nondistended, with normoactive bowel sounds. No bruits noted. Mild tenderness central abdomen, without rebound tenderness. Extremities: 2+ right radial pulse. s/p left radial artery harvest. 2+ posterior tibialis pulses bilaterally. Trace left lower extremity edema. No cyanosis. Psychiatric: Affect appears appropriate. Results & Data Vital Signs (Past 12 Hours) Vital Signs Temp Pulse Pulse Resp BP BP Pulse Ox 02/09/24 11:00 36.6 C 78 18 144/78 H 99 02/09/24 08:41 78 02/09/24 07:36 36.4 C L 82 18 147/84 H 98 02/09/24 02:44 36.8 C 86 18 144/81 H 97 O2 Del Method 02/09/24 11:00 Room Air 02/09/24 08:41 02/09/24 07:36 Room Air 02/09/24 02:44 Room Air Laboratory Results Laboratory Results - last 24 hr 02/08/24 02/08/24 02/08/24 15:39 18:24 19:45 WBC RBC Hgb Hct MCV MCH MCHC RDW Std Deviation RDW Coeff of Loli Plt Count MPV Immature Gran % (Auto) Neut % (Auto) Lymph % (Auto) [place] % (Auto) Eos % (Auto) Baso % (Auto) Neut # (Auto) Lymph # (Auto) [place] # (Auto) Eos # (Auto) Baso # (Auto) Immature Gran # (Auto) Sodium Potassium Chloride Carbon Dioxide Anion Gap BUN Creatinine Est Cr Clr Drug Dosing eGFR BUN/Creatinine Ratio Glucose POC Glucose 226 H 271 H Estimat Average Glucose Hemoglobin A1c Calcium Phosphorus Magnesium Total Bilirubin AST ALT Alkaline Phosphatase Troponin I High Sens 1050.7 H* Total Protein Albumin Globulin Albumin/Globulin Ratio 02/09/24 02/09/24 02/09/24 05:25 07:27 11:01 WBC 5.16 RBC 3.24 L Hgb 9.1 L Hct 27.2 L MCV 84.0 MCH 28.1 MCHC 33.5 RDW Std Deviation 42.4 RDW Coeff of Loli 13.7 Plt Count 197 MPV 9.3 L Immature Gran % (Auto) 1.0 Neut % (Auto) 88.7 Lymph % (Auto) 8.1 [place] % (Auto) 1.6 Eos % (Auto) 0.6 Baso % (Auto) 0.0 Neut # (Auto) 4.58 Lymph # (Auto) 0.42 L [place] # (Auto) 0.08 L Eos # (Auto) 0.03 Baso # (Auto) 0.00 Immature Gran # (Auto) 0.05 Sodium 134 L Potassium 4.2 Chloride 103 Carbon Dioxide 24 Anion Gap 7 BUN 29 H Creatinine 0.89 Est Cr Clr Drug Dosing 60.7 eGFR 87.17 BUN/Creatinine Ratio 32.6 H Glucose 114 H POC Glucose 108 H 164 H Estimat Average Glucose 154 Hemoglobin A1c 7.0 H Calcium 8.9 Phosphorus 2.8 Magnesium 1.8 Total Bilirubin 1.1 H AST 115 H ALT 69 H Alkaline Phosphatase 297 H Troponin I High Sens Total Protein 5.1 L Albumin 2.6 L Globulin 2.5 Albumin/Globulin Ratio 1.0 Diagnostic Findings Telemetry personally reviewed: Sinus rhythm. No arrhythmia. Chart reviewed. ECG personally reviewed: ECG 02/07/2024 1902: Sinus tachycardia 110 bpm. Incomplete RBBB. Possible inferior infarct. ECG 02/08/2024 to 5:16 AM: Sinus rhythm [address]/T wave abnormality. ECG 02/08/2024 at 1658: Sinus rhythm 85 bpm. Incomplete RBBB. Nonspecific ST/T wave abnormality. Echo 02/08/2024: Normal LV size. EF 55-60%. Severe hypokinesis to akinesis of the basal inferolateral and basal inferior segments. Mild LVH. Mild left atrial dilation. Mild to moderate . Mild MR. Normal RVSP. LV systolic function and wall motion stable compared to 08/27/2023 study. Labs reviewed and notable for anemia, stable renal function, elevated transaminase levels (trending upward), elevated high-sensitivity troponin (peak 1107), hypoalbuminemia. Chest x-ray 02/07/2024: No acute process per radiology. CT abdomen/pelvis 02/07/2024: Severe gallbladder distention. Colonic obstruction at the hepatic flexure concerning for underlying mass per radiology. Mass of the pancreatic head, hepatic metastases, biliary stent. Medications Administered Current Inpatient Medications Acetaminophen (Acetaminophen 500 Mg Tab) 500 mg PO Q6H PRN PRN Reason: fever/pain Stop: 03/09/24 01:08 Last Admin: 02/09/24 02:48 Dose: 500 mg Aspirin (Aspirin 81 Mg Ectab) 81 mg PO QPM [facility] Stop: 03/09/24 20:59 Last Admin: 02/08/24 20:23 Dose: 81 mg Atenolol (Atenolol 25 Mg Tablet) 25 mg PO QAM [facility] Stop: 03/09/24 08:59 Last Admin: 02/09/24 09:06 Dose: 25 mg Benzocaine (Benzocaine 20% (Orajel) 11.9 Gm Tube) 1 appln MT QID PRN PRN Reason: oral cavity pain Stop: 03/09/24 02:42 Last Admin: 02/08/24 05:49 Dose: 1 appln Dextrose (Dextrose 50% 50 Ml Syringe) 25 - 50 ml IV UD PRN; Protocol PRN Reason: Hypoglycemia Protocol Stop: 03/09/24 01:53 Docusate Sodium (Docusate Sodium 100 Mg Cap) 100 mg PO BID ALESSANDRO Stop: 03/09/24 08:59 Last Admin: 02/09/24 09:06 Dose: 100 mg Ezetimibe (Ezetimibe 10 Mg Tab) 10 mg PO HS ALESSANDRO Stop: 03/09/24 20:59 Last Admin: 02/08/24 20:23 Dose: 10 mg Enoxaparin Sodium (Enoxaparin Inj 40 Mg/0.4 Ml Syr) 40 mg SQ QAM ALESSANDRO Stop: 03/09/24 08:59 Last Admin: 02/09/24 09:06 Dose: 40 mg Fluticasone Propionate (Fluticasone Propionate Na Spr 16 Gm Btl) 1 sprays NA DAILY ALESSANDRO Stop: 03/09/24 08:59 Last Admin: 02/09/24 09:07 Dose: 1 sprays Glucagon (Glucagon For Inj 1 Mg Vial) 1 mg SQ UD PRN; Protocol PRN Reason: Hypoglycemia Protocol Stop: 03/09/24 01:53 Glucose (Glucose 40% Gel 15 Gm Tube) 15 - 30 gm PO UD PRN; Protocol PRN Reason: Hypoglycemia Protocol Stop: 03/09/24 01:53 Glucose (Glucose 10 Tab/Tube) 4 - 8 tab PO UD PRN; Protocol PRN Reason: Hypoglycemia Protocol Stop: 03/09/24 01:53 Daptomycin 375 mg/ Syringe 7.5 mls @ 3.75 mls/min IV Q24H ALESSANDRO; Protocol Stop: 02/11/24 00:00 Last Admin: 02/08/24 23:43 Dose: 3.75 mls/min Promethazine HCl (Phenergan) 6.25 mg in 50.25 mls @ 201 mls/hr IV Q6H PRN PRN Reason: Nausea And Vomiting Stop: 03/09/24 01:08 Piperacillin Sod/Tazobactam Sod (Zosyn) 4.5 gm in 100 mls @ 25 mls/hr IV Q8H [facility]; Protocol Stop: 02/18/24 01:59 Last Admin: 02/09/24 10:53 Dose: 25 mls/hr Insulin Aspart (Insulin Aspart Per Unit Charge) 0 units SC ACHS ALESSANDRO Stop: 03/09/24 20:59 Last Admin: 02/09/24 12:28 Dose: 5 units Insulin Glargine (Lantus Per Unit Charge) 5 units SQ DAILY ALESSANDRO Stop: 03/09/24 04:14 Last Admin: 02/09/24 09:07 Dose: 5 units Isosorbide Mononitrate (Isosorbide [place] Extended Rel 60 Mg Tabcr) 120 mg PO QAM [facility] Stop: 03/09/24 08:59 Last Admin: 02/09/24 09:07 Dose: 120 mg Lorazepam (Lorazepam 0.5 Mg Tab) 0.25 mg PO TID PRN PRN Reason: Anxiety Stop: 03/09/24 01:08 Miscellaneous (Carbohydrates For Hypoglycemia ) 15 - 30 gm PO UD PRN PRN Reason: Hypoglycemia Protocol Stop: 03/09/24 01:53 Morphine Sulfate (Morphine Sulfate 2 Mg/Ml Carp) 2 mg IV Q3H PRN PRN Reason: Pain Stop: 02/22/24 01:08 Multivitamins (Multivitamin Tab) 1 tab PO QPM [facility] Stop: 03/09/24 20:59 Last Admin: 02/08/24 20:23 Dose: 1 tab Nitroglycerin (Nitroglycerin Sl 0.4 Mg/Tab Tab) 0.4 mg SL Q5M PRN PRN Reason: Chest Pain Stop: 03/09/24 01:33 Oxycodone HCl (Oxycodone Hcl Ir 5 Mg Tab (Immediate Release)) 5 mg PO Q4H PRN PRN Reason: Pain Stop: 02/22/24 01:08 Pantoprazole Sodium (Pantoprazole 40 Mg Tab) 40 mg PO QAM [facility] Stop: 03/09/24 08:59 Last Admin: 02/09/24 09:07 Dose: 40 mg Polyethylene Glycol (Polyethylene (Miralax) 17 Gm Pack) 17 gm PO DAILY [facility] Stop: 03/09/24 08:59 Last Admin: 02/09/24 09:08 Dose: 17 gm Tamsulosin HCl (Tamsulosin Hcl 0.4 Mg Cap) 0.4 mg PO BID ALESSANDRO Stop: 03/09/24 08:59 Last Admin: 02/09/24 09:08 Dose: 0.4 mg PG Care Time/CCT Total # of Minutes Spent Total Time Spent with Patient: Total time spent is greater than 50% in coordination of care (as documented) at patient's floor/unit and/or counseling patient: Coding Level of Care Code 84390 INT INP/OBS CARE 3/75MIN Diagnoses Non-ST elevation (NSTEMI) myocardial infarction I21.4 CAD (coronary artery disease) I25.10 Aortic stenosis I35.0 Hypertension I10 Hx of CABG Z95.1 S/P coronary artery stent placement Z95.5
[2024-02-10] MEDS ORDERED: HEPARIN 100 UNIT/ML 5ML FLUSH FLUSH PRN (03:38)
[2024-02-10] MEDS ORDERED: Nursing to Pharmacy Communication SCH ×2 (06:30→16:00)
[2024-02-10] MEDS: INSULIN ASPART PER UNIT CHARGE SC SCH ×2 (06:35→17:13)
[2024-02-10 08:30] LABS: Albumin Globulin Ratio 0.9 (0.9-2); Albumin Level 2.6 gm/dl (3.4-5.0); BUN Creatinine Ratio 23.7 (10-20); Bilirubin,Total 1.2 mg/dl (0.2-1.0); Calcium 8.8 mg/dl (8.6-10.3); Creatinine Clr Calc Pharmacy 71.1 ml/min; Globulin 2.9 gm/dl (2.5-4.0); Magnesium 1.6 mg/dl (1.7-2.4); Phosphorus 2.4 mg/dl (2.5-4.9); Potassium 4.2 mmol/L (3.5-5.1); Total Protein 5.5 gm/dl (6.0-8.3)
[2024-02-10 08:42] LABS: Hematocrit (blood only) 29.2 % (42.0-52.0); Hemoglobin 9.7 g/dl (14.0-18.0); Mean Corpuscular Hemoglobin 28.2 pg (25.0-34.0); Mean Corpuscular Hgb Conc 33.2 g/dL (32.0-36.0); Mean Corpuscular Volume 84.9 fL (80.0-100.0); Mean Platelet Volume 9.1 fL (9.4-12.4); Platelet Count 154 K/uL (130-400); RDW Coefficient of Variation 13.8 % (11.5-14.5); RDW Standard Deviation 42.7 fL (36.4-46.3); Red Blood Count 3.44 M/uL (4.70-6.10)
[2024-02-10 08:43] LABS: Acanthocytes 1+; Basophils # (auto) 0.01 K/uL (0.00-0.20); Basophils % (auto) 0.3 %; Echinocytes 1+; Eosinophils # (auto) 0.12 K/uL (0.00-0.50); Eosinophils % (auto) 3.9 %; Immature Granulocytes # (auto) 0.01 K/uL (0.01-0.20); Immature Granulocytes % (auto) 0.3 %; Lymphocytes # (auto) 0.42 K/uL (1.20-3.40); Lymphocytes % (auto) 13.5 %; Monocytes # (auto) 0.06 K/uL (0.11-0.59); Monocytes % (auto) 1.9 %; Neutrophils # (auto) 2.48 K/uL (1.40-6.50); Neutrophils % (auto) 80.1 %
[2024-02-10] MEDS: POT PHOSPHATE MONOBASIC W/ SOD TAB PO SCH (09:42)
[2024-02-10] MEDS: MAGNESIUM OXIDE 400 MG TAB PO SCH (09:42)
--- NOTE | 2024-02-10 12:54 | Communication Note ---
<Statement entered by [place]es Land DO - 02/11/24 12:47> I agree with this plan. HIDA was (-), general surgery will sign off at this time. Date of Service: February 10, 2024 Pt here with metastatic pancreatic ca and abdominal pain. Imaging shows a distended gallbladder and cannot rule out acute cholecystitis. HIDA scan ordered for today to rule out acute cholecystitis as cause of patient's symptoms given his complicated picture of metastatic pancreatic ca with common bile duct stent in place. If HIDA + would recommend a perc khai tube with IR, if negative then we have no plans for surgical intervention. Please call with any questions/concerns.
--- NOTE | 2024-02-10 14:38 | Nuclear Medicine Report ---
NUCLEAR MEDICINE HEPATOBILIARY SCAN CLINICAL HISTORY: Evaluate for cholecystitis. COMPARISON: CT of the abdomen and pelvis February 07, 2024. MRCP February 08, 2024. TECHNIQUE: 5.1 mCi of technetium 99m Choletec IV was injected at 1:08 PM on February 10, 2024. Imme diately following injection, imaging of the abdomen was carried out for 60 minutes in the anterior pr ojection. FINDINGS: Multiple hepatic photopenic defects correspond to the liver lesions on CT of February 07, 2024. Uptake within the common bile duct and small bowel is noted at 25 minutes. There is suspected f aint gallbladder activity at 30 minutes. Radiotracer within the gallbladder was noted on the right la teral 60 minute image. IMPRESSION: 1. Probable visualization of radiotracer within the gallbladder. Therefore, no scintigraphic evidence for acute cholecystitis. 2. Photopenic hepatic defects which correspond to the liver metastases on CT. ACT 112: Negative or not required by law. Electronically signed by: Owen Valle M.D. 02/10/2024 2:37 PM
--- NOTE | 2024-02-10 16:26 | Hospitalist Progress Note ---
Date of Service February 10, 2024 Assessment & Plan (1) Severe sepsis: Plan Pt is a 78yoM with PMhx significant for metastatic pancreatic cancer currently under going chemotherapy, CAD status post CABG, moderate , pulmonary hypertension, hypertension, hyperlipidemia, DM2 on oral medications, chronic anemia (baseline hemoglobin 10-11), BPH, urolithiasis, past tobacco abuse who presented with fevers and chills. Sepsis Acute Cholangitis Colitis Elevated liver Enzymes Metastatic Pancreatic cancer patient presenting with fevers and chills noted to be febrile History of metastatic pancreatic cancer currently undergoing chemotherapy with recent port placement with recent chemo, no leukocytosis noted Lactate elevated at 2.7 before downtrending to normal value Chest x-ray unremarkable BioFire negative UA unremarkable CT abdomen pelvis noting possible acute cholecystitis and obstructed stent, possible colitis, pancreatic head mass, hepatic metastasis MRCP noting pancreatic head mass with narrow common bile duct, stent in place, distended gallbladder, multifocal hepatic metastasis Possible sources of infection: Biliary pathology, possible cholecystitis/cholangitis, colitis blood cultures x 2 sets NGTD Continue with IV Zosyn and daptomycin patient also currently on LR GI consulted, appreciate recs. Per admitting provider: (ED provider already in touch with Dr. Montes who initially recommended transfer to tertiary center. [facility] [place]. [place]) does not feel urgent transfer needed for ERCP as per communication with ED provider.) General Surgery consulted, appreciate recs -recommending HIDA scan, negative -no plans for surgical intervention Heme/Onc (pt's oncologist Dr Del Castillo) also contacted on 02/09/24 per pt request- patient concerned about missing his next chemotherapy session. Dr. Del Castillo did speak with the patient on 02/09/2024 and recommended no chemotherapy until follow-up with him. Infectious Disease consulted on 02/09 for duration of rx, given presentation and now negative HIDA, appreciate recs Continue to monitor Chest Pain Elevated Trop Hx CAD status post CABG Transient chest pain at the ER Trops elevated at 77.2 to 566.1 to 675 to 1107.8, repeat pending Possible ST elevation DC inferior leads on initial EKG Echo from 02/08/24 noting EF of 55 to 60%, severe hypokinesis to akinesis of the basal, inferolateral and basal inferior wall segments, mild concentric left ventricular hypertrophy, mild left atrial dilation, mild to moderate aortic stenosis, mild mitral regurgitation, normal right ventricular systolic pressure. Noted that wall motion abnormalities are stable from previous comparison. ED provider reportedly was in touch with electrical controls designer (Dr. Phillips). -reportedly advised that presentation not true ACS as per discussion, recommend medical management for now. Patient follows with [facility] cardiology, cardiology consult placed for further evaluation. Recommended/stated the following: - continue aspirin -Resume Plavix if no contraindication after procedures -Heparin not needed -No angina -Chest pain likely related to cancer/gallbladder -Follow-up with patient's primary assistant passenger locomotive engineer Dr. Lunsford on discharge Continue to monitor on telemetry Acute on Chronic Anemia patient with noted hemoglobin of 9.5 which down trended to 7.6 Iron panel noting iron within normal limits, B12 and folate appear supplemented or normal No overt source of bleed, FOBT negative Patient was transfused on admission for hemoglobin less than 8 Received 1 unit of packed RBCs on 02/08/2024 hemoglobin on repeat greater than 9 Continue to monitor and transfuse as needed Stable Hypertension BP on the lower side on admission Improved with IV fluids, continue with home atenolol and Imdur at this time Continue to monitor Hyperlipidemia on statin Rx, continue DMII on oral medications reasonable control as of recent hemoglobin A1c of 7.25 October 2023, repeat pending basal bolus insulin per protocol hx BPH Continue home flomax Diet: full liquids, advance as tolerated DVT prophylaxis: Lovenox subcu Dispo: PT/OT ordered for further recs CODE STATUS: full code Admission and Anticipated Discharge Date Admission Date: February 08, 2024 Subjective patient was seen in the a.m. before his HIDA scan Was n.p.o. Denied acute concerns at that time No further fevers Review of Systems Review of Systems: All systems reviewed & are unremarkable except as noted in Subjective Physical Exam Physical Exam: General: Alert, oriented. No acute distress Psych: Appropriate mood and affect Neuro: No gross deficits while sitting in bed HEENT: NC/AT CV: RRR Resp: Breath sounds clear bilaterally, no increased effort of breathing Abdomen:Soft, tender Results & Data Results & Data Vital Signs (Past 12 Hours) Vital Signs Temp Pulse Resp BP Pulse Ox O2 Del Method 02/10/24 15:24 36.4 C L 70 15 126/73 96 Room Air 02/10/24 11:06 36.7 C 80 17 118/71 98 Room Air 02/10/24 08:15 36.9 C 82 15 153/80 H 96 Room Air
--- NOTE | 2024-02-10 18:49 | Electrocardiogram Report ---
Test Reason : Blood Pressure : */* mmHG Vent. Rate : 110 BPM Atrial Rate : 110 BPM P-R Int : 154 ms QRS Dur : 96 ms QT Int : 318 ms P-R-T Axes : 43 24 68 degrees QTcB Int : 430 ms Sinus tachycardia Incomplete right bundle branch block Possible Inferior infarct , age undetermined Abnormal ECG When compared with ECG of 28-Oct-2009 14:54, T wave inversion no longer evident in Anterior leads Confirmed by Leonard Bender ([id number]) on 02/10/2024 6:48:50 PM Referred By: Confirmed By: Leonard Bender
--- NOTE | 2024-02-10 18:54 | Electrocardiogram Report ---
Test Reason : Blood Pressure : */* mmHG Vent. Rate : 75 BPM Atrial Rate : 75 BPM P-R Int : 190 ms QRS Dur : 108 ms QT Int : 430 ms P-R-T Axes : 59 29 78 degrees QTcB Int : 480 ms Sinus rhythm with Premature atrial complexes Nonspecific ST and T wave abnormality Possible Inferior infarct Prolonged QT Abnormal ECG When compared with ECG of 07-Feb-2024 21:43, Premature atrial complexes are now Present Incomplete right bundle branch block is no longer Present T wave inversion no longer evident in Anterior leads Confirmed by Leoanrd Bender ([id number]) on 02/10/2024 6:54:15 PM Referred By: REFERRED SELF Confirmed By: Leonard Bender
--- NOTE | 2024-02-10 18:54 | Electrocardiogram Report ---
Test Reason : Blood Pressure : */* mmHG Vent. Rate : 103 BPM Atrial Rate : 103 BPM P-R Int : 166 ms QRS Dur : 98 ms QT Int : 352 ms P-R-T Axes : 39 35 119 degrees QTcB Int : 461 ms Sinus tachycardia Incomplete right bundle branch block Possible Inferior infarct Abnormal ECG When compared with ECG of 07-Feb-2024 19:02, ST now depressed in Anterior leads T wave inversion now evident in Anterior leads Confirmed by Leonard Bender ([id number]) on 02/10/2024 6:53:36 PM Referred By: REFERRED SELF Confirmed By: Leonard Bender
--- NOTE | 2024-02-10 18:55 | Electrocardiogram Report ---
Test Reason : Blood Pressure : */* mmHG Vent. Rate : 85 BPM Atrial Rate : 85 BPM P-R Int : 168 ms QRS Dur : 100 ms QT Int : 384 ms P-R-T Axes : 40 -15 74 degrees QTcB Int : 457 ms Normal sinus rhythm Incomplete right bundle branch block Cannot rule out Anterior infarct , age undetermined Nonspecific ST and T wave abnormality Possible Inferior infarct Abnormal ECG When compared with ECG of 08-Feb-2024 05:16, Premature atrial complexes are no longer Present Incomplete right bundle branch block is now Present Minimal criteria for Anterior infarct are now Present Confirmed by Leonard Bender ([id number]) on 02/10/2024 6:55:32 PM Referred By: REFERRED SELF Confirmed By: Leonard Bender
[2024-02-10] MEDS: oxyCODONE HCL IR 5 MG TAB (IMMEDIATE RELEASE) PO PRN (23:16)
[2024-02-11 07:37] LABS: Basophils # (auto) 0.01 K/uL (0.00-0.20); Basophils % (auto) 0.3 %; Eosinophils # (auto) 0.15 K/uL (0.00-0.50); Eosinophils % (auto) 4.5 %; Hematocrit (blood only) 28.2 % (42.0-52.0); Hemoglobin 9.4 g/dl (14.0-18.0); Immature Granulocytes # (auto) 0.04 K/uL (0.01-0.20); Immature Granulocytes % (auto) 1.2 %; Lymphocytes # (auto) 0.57 K/uL (1.20-3.40); Mean Corpuscular Hemoglobin 28.6 pg (25.0-34.0); Mean Corpuscular Hgb Conc 33.3 g/dL (32.0-36.0); Mean Corpuscular Volume 85.7 fL (80.0-100.0); Mean Platelet Volume 9.3 fL (9.4-12.4); Monocytes # (auto) 0.07 K/uL (0.11-0.59); Monocytes % (auto) 2.1 %; Neutrophils # (auto) 2.51 K/uL (1.40-6.50); Neutrophils % (auto) 74.9 %; Platelet Count 127 K/uL (130-400); Red Blood Count 3.29 M/uL (4.70-6.10); White Blood Count 3.35 K/ul (4.8-10.8)
[2024-02-11 07:56] LABS: Albumin Globulin Ratio 0.9 (0.9-2); Albumin Level 2.6 gm/dl (3.4-5.0); BUN Creatinine Ratio 22.4 (10-20); Bilirubin,Total 1.1 mg/dl (0.2-1.0); Calcium 8.7 mg/dl (8.6-10.3); Creatinine Clr Calc Pharmacy 80.7 ml/min; Magnesium 1.5 mg/dl (1.7-2.4); Phosphorus 2.6 mg/dl (2.5-4.9); Potassium 3.9 mmol/L (3.5-5.1); Total Protein 5.6 gm/dl (6.0-8.3)
--- NOTE | 2024-02-11 10:49 | Infectious Disease Consult ---
Date of Service February 11, 2024 Telehealth Information I performed this visit using a real-time telehealth connection between my location and the patients location ([facility]). After connecting through interactive tele-video, patient was identified by name and date of and/or wristband check.Patient (or authorized healthcare sales training representative) was informed that this was a telemedicine visit and it was being conducted confidentially over secure lines. My office door was closed and no one else was present in the room with me.Patient (or authorized healthcare sales training representative) provided consent to proceed with the visit, expressed an understanding of privacy and security of the telemedicine visit, and gave permission to have a hospital sales training representative in the room in order to assist with the visit and to conduct portions of the visit, as needed. I informed the patient (or authorized healthcare sales training representative) that I reviewed their record and presented the opportunity for them to ask any questions regarding the visit today. The patient agreed to participate. Assessment & Plan (1) Pancreatic cancer metastasized to liver: Plan: Follow up with Oncology (2) Abnormal LFTs: Plan: Follow up with GI Plan Patient with metastatic pancreatic cancer who presented with abdominal pain and elevated LFTs .His HIDA scan is negative for cholecystitis and he is no longer on antibiotics .Recommend continuing to monitor off antibiotics. Thank you for allowing us to participate in the care of this patient ID will sign off History of Present Illness History of Present Illness 78 y/o M PMHx metastatic pancreatic cancer on chemotherapy,CAD s/p CABG, moderate , pulmonary hypertension, hypertension, hyperlipidemia, DM2 on oral medications, chronic anemia (baseline hemoglobin 10-11), BPH, urolithiasis, past tobacco abuse presented with abdominal pain and was found to have elevated liver enzymes raising concern for cholecystitis .MRI was also concerning for cholecytistis but this was ruled out by HIDA scan and patient is currently off antibiotics Allergies Allergy/AdvReac Type Severity Reaction Status Date / Time Iodinated Contrast Media Allergy Intermediate Rash Verified 02/03/24 12:55 levofloxacin Allergy Intermediate RASH Verified 02/03/24 12:55 lisinopril AdvReac Mild Cough Verified 02/03/24 12:56 Home Medications Medication Instructions Recorded Confirmed Type multivitamin (Multiple Vitamins 1 tab PO QPM 12/02/18 02/07/24 History tablet) atorvastatin 80 mg tablet 80 mg PO QPM 01/06/19 02/07/24 History cholecalciferol (vitamin D3) 50 2,000 units PO QAM 01/06/19 02/07/24 History mcg (2,000 unit) tablet clopidogrel 75 mg tablet 75 mg PO QAM 01/06/19 02/07/24 History ezetimibe 10 mg tablet 10 mg PO HS 01/06/19 02/07/24 History metformin 500 mg tablet 500 mg PO .COMPLEX 01/06/19 02/07/24 History nitroglycerin 0.4 mg sublingual 0.4 mg sublingual Q5M PRN Chest 01/06/19 02/07/24 History tablet Pain #1 tab ranolazine 1,000 mg 1,000 mg PO Q12H #180 tabs 01/06/19 02/07/24 History tablet,extended release,12 hr triamcinolone acetonide 0.1 % 1 appln topical BID PRN Rash 01/06/19 02/07/24 History topical cream tamsulosin 0.4 mg capsule 0.4 mg PO BID #180 caps 12/03/19 02/07/24 Rx fluticasone propionate 50 1 spray intranasal DAILY 03/16/20 02/07/24 History mcg/actuation nasal spray,suspension albuterol sulfate 90 mcg/actuation 2 inh inhalation Q6H PRN SOB 09/17/22 02/07/24 History breath activated powder inhaler atenolol 50 mg tablet 50 mg PO QAM 03/14/23 02/07/24 History pantoprazole 20 mg tablet,delayed 20 mg PO QAM 01/30/24 02/07/24 History release oxycodone-acetaminophen 5 mg-325 1 tab PO Q6H PRN pain #14 tabs 02/03/24 02/07/24 Rx mg tablet (Percocet) L.acidoph-L.rhamn-B.bifidum-B.long 1 tab PO DAILYBB 02/07/24 02/07/24 History 12.9 mg (2 billion cell) tablet DR aspirin 81 mg tablet,delayed 81 mg PO QPM 02/07/24 02/07/24 History release cyanocobalamin (vitamin B-12) 1,000 mcg IM .EVERY 30 DAYS 02/07/24 02/07/24 History 1,000 mcg/mL injection solution docusate sodium 100 mg capsule 100 mg PO BID 02/07/24 02/07/24 History iron,carbonyl 65 mg-vitamin C 125 1 tab PO Q OTHER DAY 02/07/24 02/07/24 History mg tablet,delayed release (Vitron-C) isosorbide mononitrate 60 mg 120 mg PO QAM 02/07/24 02/07/24 History tablet,extended release 24 hr lidocaine-prilocaine 2.5 %-2.5 % 1 applic topical UD 02/07/24 02/07/24 History topical cream ondansetron HCl 8 mg tablet 8 mg PO Q8 PRN Nausea 02/07/24 02/07/24 History polyethylene glycol 3350 17 17 g PO DAILY 02/07/24 02/07/24 History gram/dose oral powder (Miralax) prochlorperazine maleate 10 mg 10 mg PO Q6 PRN Nausea 02/07/24 02/07/24 History tablet semaglutide 0.25 mg or 0.5 mg (2 0.5 mg subcut WK 02/07/24 02/07/24 History mg/3 mL) subcutaneous pen injector (Ozempic) Patient History Medical History Pancreatic cancer stage 4; now with mets Hx of renal calculi Dyspnea reason for inhaler, uses every morning Angina pectoris chronic stable class I per cardio; follows closely with [facility] Cardio Non Q wave myocardial infarction 2002; 'questionable per pt' CAD (coronary artery disease) CABG August 1999, LM and LAD stents August 2009, RCA and LAD stents September 2009 Aortic stenosis follows with Dr. Lunsford; mild-mod per 08/27/23 ECHO BPH (benign prostatic hyperplasia) GERD (gastroesophageal reflux disease) Hyperlipidemia Hypertension Type 2 diabetes mellitus Surgical History Hx of CABG 1999 > 4 vessels > [facility] > follows with Dr. Lunsford History of insertion of pancreatic stent (01/16/24) [facility] Hx of biopsy (12/2023) pancreas and liver History of left cataract surgery History of esophagogastroduodenoscopy (EGD) History of colonoscopy History of tooth extraction History of tonsillectomy H/O lithotripsy Hx of cardiac cath 2009 > 5 stents - [facility] (LM and LAD stents August 2009, RCA and LAD stents September 2009) Family History Father Myocardial infarction Other Diabetes Heart disease Social History Smoking Status: Former smoker Tobacco Type: Cigarettes Second Hand Exposure: No; Do You Dip or Chew Tobacco: No; Hx Alcohol Use: Yes Hx Substance Use: No Preferred Language: Bots[place]an Communication Ability: Effective Outside Installer Apprentice Required: No Beliefs That Will Affect Care: None marital status: Current Living Situation: Significant Other Feels Safe at Home: Yes Safety Concerns: Feels Safe At This Time Assistive Devices: None Review of Systems no respiratory distress Physical Exam Patient awake alert oriented Results & Data Vital Signs (Past 12 Hours) Vital Signs Temp Pulse Pulse Resp BP BP Pulse Ox 02/11/24 10:35 36.8 C 80 17 119/62 97 02/11/24 07:11 36.9 C 82 16 154/75 H 97 02/11/24 02:23 36.9 C 88 18 126/70 95 02/10/24 23:00 85 O2 Del Method 02/11/24 10:35 Room Air 02/11/24 07:11 Room Air 02/11/24 02:23 Room Air 02/10/24 23:00 Laboratory Results Leukopenia 3350 Diagnostic Findings IMPRESSION: 1. Severe distended gallbladder, given biliary stent, cystic duct obstruction, acute cholecystitis or obstructed stent must be excluded. 2. Colonic obstruction at the hepatic flexure, concerning for an underlying mass. Cannot entirely rule out an intermittent colitis, as there is wall thickening in the distal colon. 3. Mass of the pancreatic head, hepatic metastasis, biliary stent, no CBD dilatation. IMPRESSION: 1. Limited exam as above, notably with respiratory motion artifact. 2. Pancreatic head mass is redemonstrated with resultant narrowing of the common bile duct. 3. Common bile duct stent in place with common bile duct dilation upstream to the pancreatic head mass. 4. Distended gallbladder with wall thickening redemonstrated. Correlate clinically to exclude acute cholecystitis. No definite cholelithiasis identified. 5. Multifocal hepatic metastasis with likely metastatic periportal lymph nodes. FINDINGS: Multiple hepatic photopenic defects correspond to the liver lesions on CT of February 07, 2024. Uptake within the common bile duct and small bowel is noted at 25 minutes. There is suspected faint gallbladder activity at 30 minutes. Radiotracer within the gallbladder was noted on the right lateral 60 minute image. IMPRESSION: 1. Probable visualization of radiotracer within the gallbladder. Therefore, no scintigraphic evidence for acute cholecystitis. 2. Photopenic hepatic defects which correspond to the liver metastases on CT.
[2024-02-11] MEDS: MAGNESIUM SULFATE / D5W 1 GM/100 ML BAG IV SCH (10:53)
--- NOTE | 2024-02-11 12:26 | Hospitalist Progress Note ---
Date of Service February 11, 2024 Assessment & Plan (1) Severe sepsis: Plan Pt is a 78yoM with PMhx significant for metastatic pancreatic cancer currently under going chemotherapy, CAD status post CABG, moderate , pulmonary hypertension, hypertension, hyperlipidemia, DM2 on oral medications, chronic anemia (baseline hemoglobin 10-11), BPH, urolithiasis, past tobacco abuse who presented with fevers and chills. Sepsis Acute Cholangitis Colitis Elevated liver Enzymes Metastatic Pancreatic cancer patient presenting with fevers and chills noted to be febrile History of metastatic pancreatic cancer currently undergoing chemotherapy with recent port placement with recent chemo, no leukocytosis noted Lactate elevated at 2.7 before downtrending to normal value Chest x-ray unremarkable BioFire negative UA unremarkable CT abdomen pelvis noting possible acute cholecystitis and obstructed stent, possible colitis, pancreatic head mass, hepatic metastasis MRCP noting pancreatic head mass with narrow common bile duct, stent in place, distended gallbladder, multifocal hepatic metastasis Possible sources of infection: Biliary pathology, possible cholecystitis/cholangitis, colitis blood cultures x 2 sets NGTD Continue with IV Zosyn and daptomycin patient also currently on LR GI consulted, appreciate recs. Per admitting provider: (ED provider already in touch with Dr. Montes who initially recommended transfer to tertiary center. [facility] GI specialist (Dr. Rivera) does not feel urgent transfer needed for ERCP as per communication with ED provider.) General Surgery consulted, appreciate recs -recommending HIDA scan, negative -no plans for surgical intervention Heme/Onc (pt's oncologist Dr Del Castillo) also contacted on 02/09/24 per pt request- patient concerned about missing his next chemotherapy session. Dr. Del Castillo did speak with the patient on 02/09/2024 and recommended no chemotherapy until follow-up with him. Infectious Disease consulted on 02/09 for duration of rx, given presentation and now negative HIDA, appreciate recs -seen on 02/10, recommending to discontinue abx and monitor off of abx for recurrence of fever Continue to monitor Chest Pain Elevated Trop Hx CAD status post CABG Transient chest pain at the ER Trops elevated at 77.2 to 566.1 to 675 to 1107.8, repeat pending Possible ST elevation IN inferior leads on initial EKG Echo from 02/08/24 noting EF of 55 to 60%, severe hypokinesis to akinesis of the basal, inferolateral and basal inferior wall segments, mild concentric left ventricular hypertrophy, mild left atrial dilation, mild to moderate aortic stenosis, mild mitral regurgitation, normal right ventricular systolic pressure. Noted that wall motion abnormalities are stable from previous comparison. ED provider reportedly was in touch with epic ambulatory analyst (Dr. Phillips). -reportedly advised that presentation not true ACS as per discussion, recommend medical management for now. Patient follows with [facility] cardiology, cardiology consult placed for further evaluation. Recommended/stated the following: - continue aspirin -Resume Plavix if no contraindication after procedures -Heparin not needed -No angina -Chest pain likely related to cancer/gallbladder -Follow-up with patient's primary funeral assistant Dr. Lunsford on discharge Continue to monitor on telemetry Acute on Chronic Anemia patient with noted hemoglobin of 9.5 which down trended to 7.6 Iron panel noting iron within normal limits, B12 and folate appear supplemented or normal No overt source of bleed, FOBT negative Patient was transfused on admission for hemoglobin less than 8 Received 1 unit of packed RBCs on 02/08/2024 hemoglobin on repeat greater than 9 Continue to monitor and transfuse as needed Stable Hypertension BP on the lower side on admission Improved with IV fluids, continue with home atenolol and Imdur at this time Continue to monitor Hyperlipidemia on statin Rx, continue DMII on oral medications reasonable control as of recent hemoglobin A1c of 7.25 October 2023, repeat pending basal bolus insulin per protocol hx BPH Continue home flomax Diet: full liquids, advance as tolerated DVT prophylaxis: Lovenox subcu Dispo: PT/OT ordered for further recs CODE STATUS: full code Admission and Anticipated Discharge Date Admission Date: February 08, 2024 Subjective patient was seen multiple times during the day Initially in the a.m. was seen sitting in chair at bedside more alert and oriented Asking about next steps Discussion of ID consult which was pending at the time Later family called and updated Seen at bedside as well Discussion of ID recs to discontinue antibiotics at this time and monitor for 48 hours off of antibiotics which was explained to patient Review of Systems Review of Systems: All systems reviewed & are unremarkable except as noted in Subjective Physical Exam Physical Exam: General: Alert, oriented. No acute distress Psych: Appropriate mood and affect Neuro: No gross deficits while sitting in bed HEENT: NC/AT CV: RRR Resp: Breath sounds clear bilaterally, no increased effort of breathing Abdomen:Soft, tender Results & Data Results & Data Vital Signs (Past 12 Hours) Vital Signs Temp Pulse Resp BP BP Pulse Ox O2 Del Method 02/11/24 10:35 36.8 C 80 17 119/62 97 Room Air 02/11/24 07:11 36.9 C 82 16 154/75 H 97 Room Air 02/11/24 02:23 36.9 C 88 18 126/70 95 Room Air
--- NOTE | 2024-02-11 18:13 | Electrocardiogram Report ---
Test Reason : Blood Pressure : */* mmHG Vent. Rate : 80 BPM Atrial Rate : 80 BPM P-R Int : 162 ms QRS Dur : 94 ms QT Int : 372 ms P-R-T Axes : 35 3 -6 degrees QTcB Int : 429 ms Normal sinus rhythm Inferior infarct , age undetermined Nonspecific T wave abnormality Incomplete right bundle branch block Abnormal ECG When compared with ECG of 08-Feb-2024 16:58, T wave inversion no longer evident in Anterior leads Confirmed by Leonard Bender ([id number]) on 02/11/2024 6:12:38 PM Referred By: REFERRED SELF Confirmed By: Leonard Bender
--- NOTE | 2024-02-11 19:42 | Communication Note ---
Date of Service: February 11, 2024 Patient complaining of oral sore not responsive to topical benzocaine and Magic mouthwash. Topical steroid trial
[2024-02-11] MEDS: FIRST - Mouthwash BLM 119 ML PO PRN (19:43)
[2024-02-11] MEDS: CLOBETASOL PROPIONATE 0.05% OINT 15 GM TUBE EXT SCH (20:58)
[2024-02-11] MEDS ORDERED: LOPERAMIDE HCL 2 MG CAP PO PRN (22:53)
[2024-02-11] MEDS: RANOLAZINE 500 MG ER TAB PO SCH (23:26)
[2024-02-11] MEDS: ATENOLOL 25 MG TABLET PO STA (23:27)
[2024-02-12] MEDS: ADVANCED PROBIOTIC 625 MG CAPSULE PO SCH (05:48)
[2024-02-12 07:56] LABS: Albumin Globulin Ratio 0.9 (0.9-2); Albumin Level 2.5 gm/dl (3.4-5.0); BUN Creatinine Ratio 19.7 (10-20); Calcium 8.3 mg/dl (8.6-10.3); Creatinine Clr Calc Pharmacy 81.9 ml/min; Globulin 2.8 gm/dl (2.5-4.0); Magnesium 1.6 mg/dl (1.7-2.4); Phosphorus 2.4 mg/dl (2.5-4.9); Potassium 4.1 mmol/L (3.5-5.1); Total Protein 5.3 gm/dl (6.0-8.3)
[2024-02-12 08:11] LABS: Basophils # (auto) 0.01 K/uL (0.00-0.20); Basophils % (auto) 0.3 %; Eosinophils # (auto) 0.13 K/uL (0.00-0.50); Eosinophils % (auto) 3.5 %; Hematocrit (blood only) 27.7 % (42.0-52.0); Immature Granulocytes # (auto) 0.04 K/uL (0.01-0.20); Immature Granulocytes % (auto) 1.1 %; Lymphocytes # (auto) 0.53 K/uL (1.20-3.40); Lymphocytes % (auto) 14.4 %; Mean Corpuscular Hemoglobin 27.9 pg (25.0-34.0); Mean Corpuscular Hgb Conc 32.5 g/dL (32.0-36.0); Mean Corpuscular Volume 85.8 fL (80.0-100.0); Mean Platelet Volume 9.6 fL (9.4-12.4); Monocytes # (auto) 0.23 K/uL (0.11-0.59); Monocytes % (auto) 6.3 %; Neutrophils # (auto) 2.73 K/uL (1.40-6.50); Neutrophils % (auto) 74.4 %; Platelet Count 95 K/uL (130-400); Platelet Estimate Decreased (Normal); RDW Coefficient of Variation 14.2 % (11.5-14.5); RDW Standard Deviation 44.7 fL (36.4-46.3); Red Blood Count 3.23 M/uL (4.70-6.10); White Blood Count 3.67 K/ul (4.8-10.8)
[2024-02-12] MEDS: ATENOLOL 50 MG TABLET PO SCH (08:25)
--- NOTE | 2024-02-13 04:37 | Hospitalist Progress Note ---
Date of Service February 12, 2024 Assessment & Plan (1) Severe sepsis: Plan Per previous hospitalist w/ addendum Pt is a 78yoM with PMhx significant for metastatic pancreatic cancer currently under going chemotherapy, CAD status post CABG, moderate , pulmonary h ypertension, hypertension, hyperlipidemia, DM2 on oral medications, chronic anemia (baseline hemoglobin 10-11), BPH, urolithiasis, past tobacco abuse who presented with fevers and chills. Sepsis Acute Cholangitis Colitis Elevated liver Enzymes Metastatic Pancreatic cancer patient presenting with fevers and chills noted to be febrile History of metastatic pancreatic cancer currently undergoing chemotherapy with recent port placement with recent chemo, no leukocytosis noted Lactate elevated at 2.7 before downtrending to normal value Chest x-ray unremarkable BioFire negative UA unremarkable CT abdomen pelvis noting possible acute cholecystitis and obstructed stent, possible colitis, pancreatic head mass, hepatic metastasis MRCP noting pancreatic head mass with narrow common bile duct, stent in place, distended gallbladder, multifocal hepatic metastasis Possible sources of infection: Biliary pathology, possible cholecystitis/cholangitis, colitis Blood cultures x 2 sets - Negative Continued with IV Zosyn and daptomycin patient also on LR GI consulted, appreciate recs. Per admitting provider: (ED provider already in touch with Dr. Montes who initially recommended transfer to tertiary center. [facility] specialist (Dr. Rivera) does not feel urgent transfer needed for ERCP as per communication with ED provider.) General Surgery consulted, appreciate recs -recommending HIDA scan, negative -no plans for surgical intervention Heme/Onc (pt's oncologist Dr Del Castillo) also contacted on 02/09/24 per pt request- patient concerned about missing his next chemotherapy session. Dr. Del Castillo did speak with the patient on 02/09/2024 and recommended no chemotherapy until follow-up with him. Infectious Disease consulted on 02/09 for duration of rx, given presentation and now negative HIDA, appreciate recs -seen on 02/10, recommending to discontinue abx and monitor off of abx for recurrence of fever Continue to monitor Chest Pain Elevated Trop Hx CAD status post CABG Transient chest pain at the ER Trops elevated at 77.2 to 566.1 to [address] elevation PA inferior leads on initial EKG Echo from 02/08/24 noting EF of 55 to 60%, severe hypokinesis to akinesis of the basal, inferolateral and basal inferior wall segments, mild concentric left ventricular hypertrophy, mild left atrial dilation, mild to moderate aortic stenosis, mild mitral regurgitation, normal right ventricular systolic pressure. Noted that wall motion abnormalities are stable from previous comparison. ED provider reportedly was in touch with drawer in stitch bonding machine (Dr. Phillips). -reportedly advised that presentation not true ACS as per discussion, recommend medical management for now. Patient follows with [facility] [place] cardiology, cardiology consult placed for further evaluation. Recommended/stated the following: - continue aspirin -Resume Plavix if no contraindication after procedures -Heparin not needed -No angina -Chest pain likely related to cancer/gallbladder -Follow-up with patient's primary bulb sorter Dr. Lunsford on discharge Continue to monitor on telemetry Acute on Chronic Anemia patient with noted hemoglobin of 9.5 which down trended to 7.6 Iron panel noting iron within normal limits, B12 and folate appear supplemented or normal No overt source of bleed, FOBT negative Patient was transfused on admission for hemoglobin less than 8 Received 1 unit of packed RBCs on 02/08/2024 hemoglobin on repeat greater than 9 Continue to monitor and transfuse as needed Stable Hypertension BP on the lower side on admission Improved with IV fluids, continue with home atenolol and Imdur at this time Continue to monitor Hyperlipidemia on statin Rx, continue DMII on oral medications reasonable control as of recent hemoglobin A1c of 7.25 October 2023, current 7.0% basal bolus insulin per protocol hx BPH Continue home flomax DVT prophylaxis: Lovenox subcu CODE STATUS: full code Admission and Anticipated Discharge Date Admission Date: February 08, 2024 Subjective Patient seen in follow up - he is sitting up in bed in NAD Patient's present at the bedside He reports feeling well, denies any abd. pain Also, no fever no chest pain, shortness of breath Discussed ID recs to monitor off abx Review of Systems Review of Systems: All systems reviewed & are unremarkable except as noted in Subjective Physical Exam Physical Exam: General: Alert, oriented. No acute distress Psych: Appropriate mood and affect Neuro: No gross deficits while sitting in bed HEENT: NC/AT CV: RRR Resp: Breath sounds clear bilaterally, no increased effort of breathing Abdomen:Soft, nontender to palp Results & Data Results & Data Vital Signs (Past 12 Hours) Vital Signs Temp Pulse Pulse Resp BP Pulse Ox O2 Del Method 02/12/24 22:47 78 02/12/24 22:37 Room Air 02/12/24 22:32 37.0 C 76 18 163/77 H 97 Room Air 02/12/24 19:26 36.5 C 72 18 149/60 H 97 Room Air Laboratory Results 02/12/24 02/12/24 02/12/24 Range/Units 20:13 17:01 11:30 WBC (4.8-10.8) K/ul RBC (4.70-6.10) M/uL Hgb (14.0-18.0) g/dl Hct (42.0-52.0) % MCV (80.0-100.0) fL MCH (25.0-34.0) pg MCHC (32.0-36.0) g/dL RDW Std Deviation (36.4-46.3) fL RDW Coeff of Loli (11.5-14.5) % Plt Count (130-400) K/uL MPV (9.4-12.4) fL Immature Gran % (Auto) % Neut % (Auto) % Lymph % (Auto) % [place] % (Auto) % Eos % (Auto) % Baso % (Auto) % Neut # (Auto) (1.40-6.50) K/uL Lymph # (Auto) (1.20-3.40) K/uL [place] # (Auto) (0.11-0.59) K/uL Eos # (Auto) (0.00-0.50) K/uL Baso # (Auto) (0.00-0.20) K/uL Immature Gran # (Auto) (0.01-0.20) K/uL Platelet Estimate (Normal) Sodium (136-145) mmol/L Potassium (3.5-5.1) mmol/L Chloride (98-107) mmol/L Carbon Dioxide (21-32) mmol/L Anion Gap (3-11) BUN (6-23) mg/dl Creatinine (0.6-1.4) mg/dl Est Cr Clr Drug Dosing ml/min eGFR BUN/Creatinine Ratio (10-20) Glucose (70-99(Fasting)) mg/dl POC Glucose 160 H 184 H 202 H (70-99) mg/dl Calcium (8.6-10.3) mg/dl Phosphorus (2.5-4.9) mg/dl Magnesium (1.7-2.4) mg/dl Total Bilirubin (0.2-1.0) mg/dl AST (13-39) U/L ALT (7-52) U/L Alkaline Phosphatase (34-104) U/L Total Protein (6.0-8.3) gm/dl Albumin (3.4-5.0) gm/dl Globulin (2.5-4.0) gm/dl Albumin/Globulin Ratio (0.9-2) 02/12/24 Range/Units 07:26 WBC 3.67 L (4.8-10.8) K/ul RBC 3.23 L (4.70-6.10) M/uL Hgb 9.0 L (14.0-18.0) g/dl Hct 27.7 L (42.0-52.0) % MCV 85.8 (80.0-100.0) fL MCH 27.9 (25.0-34.0) pg MCHC 32.5 (32.0-36.0) g/dL RDW Std Deviation 44.7 (36.4-46.3) fL RDW Coeff of Loli 14.2 (11.5-14.5) % Plt Count 95 L (130-400) K/uL MPV 9.6 (9.4-12.4) fL Immature Gran % (Auto) 1.1 % Neut % (Auto) 74.4 % Lymph % (Auto) 14.4 % [place] % (Auto) 6.3 % Eos % (Auto) 3.5 % Baso % (Auto) 0.3 % Neut # (Auto) 2.73 (1.40-6.50) K/uL Lymph # (Auto) 0.53 L (1.20-3.40) K/uL [place] # (Auto) 0.23 (0.11-0.59) K/uL Eos # (Auto) 0.13 (0.00-0.50) K/uL Baso # (Auto) 0.01 (0.00-0.20) K/uL Immature Gran # (Auto) 0.04 (0.01-0.20) K/uL Platelet Estimate Decreased L (Normal) Sodium 137 (136-145) mmol/L Potassium 4.1 (3.5-5.1) mmol/L Chloride 103 (98-107) mmol/L Carbon Dioxide 30 (21-32) mmol/L Anion Gap 4 (3-11) BUN 13 (6-23) mg/dl Creatinine 0.66 (0.6-1.4) mg/dl Est Cr Clr Drug Dosing 81.9 ml/min eGFR 95.41 BUN/Creatinine Ratio 19.7 (10-20) Glucose 152 H (70-99(Fasting)) mg/dl POC Glucose 159 H (70-99) mg/dl Calcium 8.3 L (8.6-10.3) mg/dl Phosphorus 2.4 L (2.5-4.9) mg/dl Magnesium 1.6 L (1.7-2.4) mg/dl Total Bilirubin 1.0 (0.2-1.0) mg/dl AST 52 H (13-39) U/L ALT 62 H (7-52) U/L Alkaline Phosphatase 401 H (34-104) U/L Total Protein 5.3 L (6.0-8.3) gm/dl Albumin 2.5 L (3.4-5.0) gm/dl Globulin 2.8 (2.5-4.0) gm/dl Albumin/Globulin Ratio 0.9 (0.9-2) Medications Administered Current Inpatient Medications Acetaminophen (Acetaminophen 500 Mg Tab) 500 mg PO Q6H PRN PRN Reason: fever/pain Stop: 03/09/24 01:08 Last Admin: 02/10/24 12:16 Dose: 500 mg Aspirin (Aspirin 81 Mg Ectab) 81 mg PO QPM ALESSANDRO Stop: 03/09/24 20:59 Last Admin: 02/12/24 20:21 Dose: 81 mg Atenolol (Atenolol 50 Mg Tablet) 50 mg PO QAM ALESSANDRO Stop: 03/13/24 08:59 Last Admin: 02/12/24 08:25 Dose: 50 mg Benzocaine (Benzocaine 20% (Orajel) 11.9 Gm Tube) 1 appln MT QID PRN PRN Reason: oral cavity pain Stop: 03/09/24 02:42 Last Admin: 02/11/24 16:07 Dose: 1 appln Clobetasol Propionate (Clobetasol Propionate 0.05% Oint 15 Gm Tube) 1 appln EXT TID ALESSANDRO Stop: 03/12/24 19:44 Last Admin: 02/12/24 20:22 Dose: 1 appln Dextrose (Dextrose 50% 50 Ml Syringe) 25 - 50 ml IV UD PRN; Protocol PRN Reason: Hypoglycemia Protocol Stop: 03/09/24 01:53 Docusate Sodium (Docusate Sodium 100 Mg Cap) 100 mg PO BID [facility] Stop: 03/09/24 08:59 Last Admin: 02/12/24 20:23 Dose: 100 mg Ezetimibe (Ezetimibe 10 Mg Tab) 10 mg PO HS ALESSANDRO Stop: 03/09/24 20:59 Last Admin: 02/12/24 20:22 Dose: 10 mg Enoxaparin Sodium (Enoxaparin Inj 40 Mg/0.4 Ml Syr) 40 mg SQ QAM ALESSANDRO Stop: 03/09/24 08:59 Last Admin: 02/12/24 08:26 Dose: 40 mg Fluticasone Propionate (Fluticasone Propionate Na Spr 16 Gm Btl) 1 sprays NA DAILY [facility] Stop: 03/09/24 08:59 Last Admin: 02/12/24 08:27 Dose: 1 sprays Glucagon (Glucagon For Inj 1 Mg Vial) 1 mg SQ UD PRN; Protocol PRN Reason: Hypoglycemia Protocol Stop: 03/09/24 01:53 Glucose (Glucose 40% Gel 15 Gm Tube) 15 - 30 gm PO UD PRN; Protocol PRN Reason: Hypoglycemia Protocol Stop: 03/09/24 01:53 Glucose (Glucose 10 Tab/Tube) 4 - 8 tab PO UD PRN; Protocol PRN Reason: Hypoglycemia Protocol Stop: 03/09/24 01:53 Heparin Sodium (Porcine) (Heparin 100 Unit/Ml 5ml Flush) 5 ml FLUSH PRN PRN PRN Reason: Flush Stop: 03/11/24 03:37 Promethazine HCl (Phenergan) 6.25 mg in 50.25 mls @ 201 mls/hr IV Q6H PRN PRN Reason: Nausea And Vomiting Stop: 03/09/24 01:08 Insulin Aspart (Insulin Aspart Per Unit Charge) 0 units SC ACHS ALESSANDRO Stop: 03/11/24 06:29 Last Admin: 02/12/24 21:55 Dose: 2 units Insulin Glargine (Lantus Per Unit Charge) 5 units SQ DAILY ALESSANDRO Stop: 03/09/24 04:14 Last Admin: 02/12/24 08:28 Dose: 5 units Isosorbide Mononitrate (Isosorbide [place] Extended Rel 60 Mg Tabcr) 120 mg PO QAM ALESSANDRO Stop: 03/09/24 08:59 Last Admin: 02/12/24 08:30 Dose: 120 mg Lactobacillus Acidophilus (Advanced Probiotic 625 Mg Capsule) 1,250 mg PO DAILYBB ALESSANDRO Stop: 03/13/24 06:29 Last Admin: 02/12/24 05:48 Dose: 1,250 mg Loperamide HCl (Loperamide Hcl 2 Mg Cap) 2 mg PO UD PRN PRN Reason: Diarrhea Stop: 03/12/24 22:52 Lorazepam (Lorazepam 0.5 Mg Tab) 0.25 mg PO TID PRN PRN Reason: Anxiety Stop: 03/09/24 01:08 Magnesium Oxide (Magnesium Oxide 400 Mg Tab) 400 mg PO BID ALESSANDRO Stop: 03/11/24 08:59 Last Admin: 02/12/24 20:23 Dose: 400 mg Miscellaneous (Carbohydrates For Hypoglycemia ) 15 - 30 gm PO UD PRN PRN Reason: Hypoglycemia Protocol Stop: 03/09/24 01:53 Morphine Sulfate (Morphine Sulfate 2 Mg/Ml Carp) 2 mg IV Q3H PRN PRN Reason: Pain Stop: 02/22/24 01:08 Multi-Ingredient Mouthwash/Gargle (First - Mouthwash Blm 119 Ml) 5 ml PO TID PRN PRN Reason: mouth pain Stop: 03/12/24 20:59 Last Admin: 02/12/24 13:45 Dose: 5 ml Multivitamins (Multivitamin Tab) 1 tab PO QPM ALESSANDRO Stop: 03/09/24 20:59 Last Admin: 02/12/24 20:26 Dose: 1 tab Nitroglycerin (Nitroglycerin Sl 0.4 Mg/Tab Tab) 0.4 mg SL Q5M PRN PRN Reason: Chest Pain Stop: 03/09/24 01:33 Oxycodone HCl (Oxycodone Hcl Ir 5 Mg Tab (Immediate Release)) 5 mg PO Q4H PRN PRN Reason: Pain Stop: 02/22/24 01:08 Last Admin: 02/13/24 03:16 Dose: 5 mg Pantoprazole Sodium (Pantoprazole 40 Mg Tab) 40 mg PO QAM ALESSANDRO Stop: 03/09/24 08:59 Last Admin: 02/12/24 08:31 Dose: 40 mg Polyethylene Glycol (Polyethylene (Miralax) 17 Gm Pack) 17 gm PO DAILY ALESSANDRO Stop: 03/09/24 08:59 Last Admin: 02/12/24 08:43 Dose: Not Given Potassium Phosphate (Pot Phosphate Monobasic W/ Sod Tab) 2 tab PO QID ALESSANDRO Stop: 03/11/24 08:59 Last Admin: 02/12/24 20:23 Dose: 2 tab Ranolazine (Ranolazine 500 Mg Er Tab) 1,000 mg PO Q12H ALESSANDRO Stop: 03/12/24 22:59 Last Admin: 02/12/24 20:24 Dose: 1,000 mg Tamsulosin HCl (Tamsulosin Hcl 0.4 Mg Cap) 0.4 mg PO BID ALESSANDRO Stop: 03/09/24 08:59 Last Admin: 02/12/24 20:23 Dose: 0.4 mg
[2024-02-13 07:39] VITALS: RESP 20
[2024-02-13 11:40] VITALS: PULSE 74; TEMP 97.5; O2SAT 97
--- NOTE | 2024-02-13 12:54 | Discharge Summary ---
Date of Service February 13, 2024 Admission HPI Per Admitting Provider History obtained from patient, family, and records. Medical history significant for CAD status post CABG, moderate , pulmonary hypertension, hypertension, hyperlipidemia, DM2 on oral medications, chronic anemia (baseline hemoglobin 10-11), BPH, urolithiasis, past tobacco abuse. Patient has had epigastric discomfort somewhat worse with eating after outpatient EGD/EUS for pancreatic mass 3 weeks ago. 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 First dose of chemotherapy few days ago. This afternoon, patient had fever chills. Usual epigastric pain sometimes going to the chest. No cough or SOB. Denies black or bloody stools. Bilious emesis. No issues with Aport. Zosyn administered at the ER. Transient chest pain at the ER. 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 Admission Exam Per Admitting Provider GENERAL: Comfortable, pleasant, no respiratory distress SKIN: Pallor,, warm HEENT: Alopecia, pale palpebral conjunctivae, no ptosis, dry buccal mucosa NECK : Supple, no tenderness CHEST : Decreased breath sounds, no tenderness HEART : RRR, systolic murmur ABDOMEN: Some distention, epigastric tenderness RECTAL : Intact sphincter, payne stool (FOBT negative) EXTREMITIES : No LE swelling/tenderness, no other conspicuous deformities noted NEUROLOGIC : Coherent, no facial asymmetry, no other gross focality Principal Diagnosis Pancreatic cancer metastasized to liver Abnormal LFTs Fever Concern for possible sepsis Discharge Exam General: Alert, oriented. No acute distress Psych: Appropriate mood and affect Neuro: No gross deficits while sitting in bed HEENT: NC/AT CV: RRR Resp: Breath sounds clear bilaterally, no increased effort of breathing Abdomen:Soft, nontender to palp Discharge Data Allergies Allergy/AdvReac Type Severity Reaction Status Date / Time Iodinated Contrast Media Allergy Intermediate Rash Verified 02/03/24 12:55 levofloxacin Allergy Intermediate RASH Verified 02/03/24 12:55 lisinopril AdvReac Mild Cough Verified 02/03/24 12:56 Consultations 02/08/24 01:31 Consult Gastroenterology Routine 02/08/24 15:22 Consult General Surgery Routine 02/08/24 15:52 Consult Cardiology Routine 02/10/24 19:04 Consult Infectious Diseases Routine Ordered Studies 02/07/24 20:10 CT Abd and Pelvis [CT abd pelvis IV con only] Stat FINDINGS: Lung bases: Clear. No gross mass or pleural effusion. Liver: Innumerable hepatic hypodensities, largest 4.5 cm in the right lobe, nonspecific, probable metastatic disease. Pneumobilia, not unusual given that there is a biliary stent. No intrahepatic ductal dilatation. Gallbladder and bile ducts: Severe distended gallbladder, given biliary stent, cystic duct obstruction, acute cholecystitis or obstructed stent are not excluded. No ductal dilation. Pancreas: 3.2 cm mass of the pancreatic head, in keeping with history of pancreatic cancer. No ductal dilation, or acute pancreatitis. Spleen: Unremarkable. Adrenals: Unremarkable. Kidneys and ureters: No hydronephrosis. Stomach and bowel: Moderate, 6 cm focal wall thickening, cannot rule out obstructing mass at the hepatic flexure, axial series 3/139. Moderate fecal loaded right colon, could also be physiologic. There is also wall thickening in the distal colon, intermittent colitis is also in the differential considerations. No small bowel obstruction. Diverticulosis without diverticulitis. Appendix: Intraperitoneal space: No free air or fluid. Bones/joints: No acute fracture. Soft tissues: Fat-containing left inguinal hernia. Vasculature: No aortic aneurysm. Lymph nodes: Mildly prominent lymph nodes in the heber hepatis. Bladder: Mildly distended, wall thickening is nonspecific, may be artifact, cystitis not excluded. Reproductive: Moderate, nonspecific prostatomegaly. IMPRESSION: 1. Severe distended gallbladder, given biliary stent, cystic duct obstruction, acute cholecystitis or obstructed stent must be excluded. 2. Colonic obstruction at the hepatic flexure, concerning for an underlying mass. Cannot entirely rule out an intermittent colitis, as there is wall thickening in the distal colon. 3. Mass of the pancreatic head, hepatic metastasis, biliary stent, no CBD dilatation. 02/08/24 01:04 MR MRCP Routine IMPRESSION: 1. Limited exam as above, notably with respiratory motion artifact. 2. Pancreatic head mass is redemonstrated with resultant narrowing of the common bile duct. 3. Common bile duct stent in place with common bile duct dilation upstream to the pancreatic head mass. 4. Distended gallbladder with wall thickening redemonstrated. Correlate clinically to exclude acute cholecystitis. No definite cholelithiasis identified. 5. Multifocal hepatic metastasis with likely metastatic periportal lymph nodes. HIDA scan IMPRESSION: 1. Probable visualization of radiotracer within the gallbladder. Therefore, no scintigraphic evidence for acute cholecystitis. 2. Photopenic hepatic defects which correspond to the liver metastases on CT. Hospital Course (1) Severe sepsis: Plan Pt is a 78yoM with PMhx significant for metastatic pancreatic cancer currently under going chemotherapy, CAD status post CABG, moderate , pulmonary hypertension, hypertension, hyperlipidemia, DM2 on oral medications, chronic anemia (baseline hemoglobin 10-11), BPH, urolithiasis, past tobacco abuse who presented with fevers and chills. Sepsis Acute Cholangitis Colitis Elevated liver Enzymes Metastatic Pancreatic cancer patient presenting with fevers and chills noted to be febrile History of metastatic pancreatic cancer currently undergoing chemotherapy with r ecent port placement with recent chemo, no leukocytosis noted Lactate elevated at 2.7 before downtrending to normal value Chest x-ray unremarkable BioFire negative UA unremarkable CT abdomen pelvis noting possible acute cholecystitis and obstructed stent, possible colitis, pancreatic head mass, hepatic metastasis MRCP noting pancreatic head mass with narrow common bile duct, stent in place, distended gallbladder, multifocal hepatic metastasis Possible sources of infection: Biliary pathology, possible cholecystitis/cholangitis, colitis Blood cultures x 2 sets - Negative Continued with IV Zosyn and daptomycin patient also on LR GI consulted, appreciate recs. Per admitting provider: (ED provider already in touch with Dr. Montes who initially recommended transfer to tertiary center. [facility] [place] specialist (Dr. Rivera) does not feel urgent transfer needed for ERCP as per communication with ED provider.) General Surgery consulted, appreciate recs -recommending HIDA scan, negative -no plans for surgical intervention Heme/Onc (pt's oncologist Dr Del Castillo) also contacted on 02/09/24 per pt request- patient concerned about missing his next chemotherapy session. Dr. Del Castillo did speak with the patient on 02/09/2024 and recommended no chemotherapy until follow-up with him. Infectious Disease consulted on 02/09 for duration of rx, given presentation and now negative HIDA, appreciate recs -seen on 02/10, recommending to discontinue abx and monitor off of abx for recurrence of fever Continue to monitor Chest Pain Elevated Trop Hx CAD status post CABG Transient chest pain at the ER Trops elevated at 77.2 to 566.1 to [address] elevation ME inferior leads on initial EKG Echo from 02/08/24 noting EF of 55 to 60%, severe hypokinesis to akinesis of the basal, inferolateral and basal inferior wall segments, mild concentric left ventricular hypertrophy, mild left atrial dilation, mild to moderate aortic stenosis, mild mitral regurgitation, normal right ventricular systolic pressure. Noted that wall motion abnormalities are stable from previous comparison. ED provider reportedly was in touch with lieutenant shift supervisor (Dr. Phillips). -reportedly advised that presentation not true ACS as per discussion, recommend medical management for now. Patient follows with [facility] cardiology, cardiology consult placed for further evaluation. Recommended/stated the following: - continue aspirin -Resume Plavix if no contraindication after procedures -Heparin not needed -No angina -Chest pain likely related to cancer/gallbladder -Follow-up with patient's primary hospice chaplain Dr. Lunsford on discharge Continue to monitor on telemetry Acute on Chronic Anemia patient with noted hemoglobin of 9.5 which down trended to 7.6 Iron panel noting iron within normal limits, B12 and folate appear supplemented or normal No overt source of bleed, FOBT negative Patient was transfused on admission for hemoglobin less than 8 Received 1 unit of packed RBCs on 02/08/2024 hemoglobin on repeat greater than 9 Continue to monitor and transfuse as needed Stable Hypertension BP on the lower side on admission Improved with IV fluids, continue with home atenolol and Imdur at this time Continue to monitor current BP 131/67 Hyperlipidemia on statin Rx, continue DMII on oral medications reasonable control as of recent hemoglobin A1c of 7.25 October 2023, current 7.0% basal bolus insulin per protocol hx BPH Continue home flomax Total Time Total Time Spent Total Time Spent (In Minutes): 40 Discharge Plan Discharge Items Patient Disposition: Home - Self-Care Reason For Visit: HYPOTENSION, SEPSIS Discharge Diagnosis: Pancreatic cancer metastasized to liver Abnormal LFTs Fever Concern for possible sepsis Activity: Per Instructions section Non-emergency contact: Primary Care Provider and Oncologist Call non-emergency contact if: you have any medication questions and your symptoms worsen Follow-up/Referrals: Pedro Luis Bowens DO [Primary Care Provider] - (Date & Time 02/17/2024 9:20 AM Provider [place], Pharmacist [facility] ) Diet: Carb Consistent or DM2 Addtl Attending Provider Instructions: Follow up closely with your primary care doctor and oncologist. You should be seen by your primary care doctor within 1 week. Discuss with your health care providers if you should continue using ozempic - a t this point I would recommend not to. Continue oral topical steroid for oral pain. Pending Studies at Discharge: No Stand-Alone Forms: My [facility], Smoking Cessation Medications and DC Order Prescriptions: New magnesium oxide 400 mg (241.3 mg magnesium) Tablet 400 mg PO BID Qty: 30 0RF Continued tamsulosin 0.4 mg capsule 0.4 mg PO BID Qty: 180 3RF fluticasone propionate 50 mcg/actuation spray,suspension 1 spray intranasal DAILY Rx Instructions: administer into each nostril albuterol sulfate 90 mcg/actuation aerosol powdr breath activated 2 inh inhalation Q6H PRN (Reason: SOB) multivitamin [Multiple Vitamins] tablet 1 tab PO QPM atorvastatin 80 mg tablet 80 mg PO QPM cholecalciferol (vitamin D3) 2,000 unit tablet 2,000 units PO QAM clopidogrel 75 mg tablet 75 mg PO QAM ezetimibe 10 mg tablet 10 mg PO HS metformin 500 mg tablet 500 mg PO .COMPLEX Patient Comments: 500 mg PO 1 tablet in the am, 1 tablet at lunch, and 2 tablets at dinner Rx Instructions: 500 mg PO 1 tablet in the am, 1 tablet at lunch, and 2 tablets at dinner nitroglycerin 0.4 mg tablet, sublingual 0.4 mg SL Q5M PRN (Reason: Chest Pain) Qty: 1 ranolazine 1,000 mg tablet extended release 12 hr 1,000 mg PO Q12H Qty: 180 triamcinolone acetonide 0.1 % cream 1 appln topical BID PRN (Reason: Rash) atenolol 50 mg tablet 50 mg PO QAM pantoprazole 20 mg Tablet,Delayed Release (Dr/Ec) 20 mg PO QAM oxycodone-acetaminophen [Percocet] 5-325 mg tablet 1 tab PO Q6H PRN (Reason: pain) Qty: 14 0RF ondansetron HCl 8 mg tablet 8 mg PO Q8 PRN (Reason: Nausea) aspirin [Aspirin Low-Strength] 81 mg Tablet,Delayed Release (Dr/Ec) 81 mg PO QPM prochlorperazine maleate 10 mg tablet 10 mg PO Q6 PRN (Reason: Nausea) lidocaine-prilocaine 2.5-2.5 % cream 1 applic topical UD Rx Instructions: APPLY TOPICALLY TO MEDIPORT AND COVER 1 HOUR PRIOR TO ACCESSING isosorbide mononitrate 60 mg tablet extended release 24 hr 120 mg PO QAM docusate sodium 100 mg Capsule 100 mg PO BID cyanocobalamin (vitamin B-12) [Cyanacobalamin] 1,000 mcg/mL Solution 1,000 mcg IM .EVERY 30 DAYS polyethylene glycol 3350 [Miralax] 17 gram/dose Powder 17 g PO DAILY Probiotic Acidophilus Biobeads 12.9 mg (2 billion cell) Tablet,Delayed Release (Dr/Ec) 1 tab PO DAILYBB Vitron-C 65 mg iron- 125 mg Tablet,Delayed Release (Dr/Ec) 1 tab PO Q OTHER DAY Discontinued Ozempic 0.25 mg or 0.5 mg (2 mg/3 mL) pen injector 0.5 mg SUBCUT WK Rx Instructions: SATURDAYS Discharge Orders: Discharge Order (Routine); Ordered 02/13/24 Ordered By: Johnny Park Admission Data Admit Date/Time: 02/08/24 00:26 Attending Provider: Johnny Park Admit Provider: Mohan Khan Primary Care Provider: Pedro Luis Bowens Other Providers: Aries Montes Jr; Cortes Land; Leonard Bender; Severiano Fraser; Erik Madrid; Gabe Noriega I.; Socrates Hughes II; Dilma Painter; Bob Chowdhury; Scott Street; Juan Shafer
[2024-02-13 13:29] VITALS: BP 101/60
[2024-02-13 13:39] LABS: Acanthocytes 2+
== END 2024-02-13 14:21 | disposition home health service (06) | DRG 872 ==
LOC: ED 18:43 → 2S 02-08 00:26 → SUATTDRO 02-08 00:26 → 2S 02-08 01:21

== ENCOUNTER 2024-02-25 13:27 | Inpatient (IN) ==
--- NOTE | 2024-02-25 15:00 | XRay Report ---
XR chest 1V portable HISTORY: 78 years-old Male weakness COMPARISON: 02/07/2024 TECHNIQUE: AP view of the chest FINDINGS: Cardiac silhouette is enlarged. Median sternotomy with mediastinal surgical clips. Right IJ Infuse-a- Port catheter redemonstrated. No pneumothorax or large pleural effusion. Chronic interstitial coarsen ing. Partially imaged right upper quadrant biliary stent. Degenerative changes of the shoulders and s pine. IMPRESSION: 1. Cardiomegaly without overt pulmonary edema. 2. Chronic interstitial coarsening. ACT 112: Negative or not required by law. The above report was generated using voice recognition software. It may contain grammatical, syntax o r spelling errors. Electronically signed by: Manuel Calderon M.D. 02/25/2024 2:59 PM
[2024-02-25] MEDS: SODIUM CHLORIDE 0.9% 500 ML IV ONE (15:13)
[2024-02-25 15:20] LABS: Albumin Globulin Ratio 0.9 (0.9-2); Albumin Level 2.4 gm/dl (3.4-5.0); BUN Creatinine Ratio 23.7 (10-20); Bilirubin,Total 1.2 mg/dl (0.2-1.0); Creatinine Clr Calc Pharmacy 55.7 ml/min; Globulin 2.7 gm/dl (2.5-4.0); Potassium 3.8 mmol/L (3.5-5.1); Total Protein 5.1 gm/dl (6.0-8.3)
--- NOTE | 2024-02-25 15:33 | Emergency Department Note ---
Impression & Plan Weakness, Non-ST elevation PA (NSTEMI), Anemia, Pancreatic cancer, Acute hyponatremia, Neutropenia, COVID-19 ED Provider Note Provider: Smith Lind MD CHIEF COMPLAINT: Weakness, fall HISTORY OF PRESENT ILLNESS: Patient is a 78-year-old gentleman past medical history significant for pancreatic cancer metastatic to the liver, CAD with stents, GERD, hypertension, diabetes, and history of recent admission for sepsis on chemotherapy brought from home due to weakness and a fall. Patient last several days been feeling more weak. Did get nystatin mouthwash several days ago for thrush and states that starting to help his mouth feel better. Not eating or drinking much. Had some nausea earlier and the last several days. Some temperatures around 99 Fahrenheit but no true fevers reported. Patient was going to get out of declined to get a Zofran tablet this morning when as the recliner was helping him stand up he lost his balance fell forward struck his head on the ground. Did not lose consciousness. Family helped him up and then he did have an episode of vomiting. Patient denies any pain at this time in particular head pain, chest pain, or abdominal pain. Has had some loose stools. Not urinating so much. Denies significant injury to the extremities. Denies dizziness just feels generally weak. No recent sick contacts reported. Has been receiving fluid infusion yesterday and scheduled for blood transfusion tomorrow by his report. Denies any bleeding issues. PAST MEDICAL HISTORY: As noted above MEDICATIONS: Reviewed home medication includes aspirin and Plavix by report SOCIAL HISTORY: Resides at home, former smoker PHYSICAL EXAM: GENERAL: alert and oriented in no acute distress on stretcher Head: normocephalic and atraumatic EYES: No injection, discharge or icterus. PERRL, EOMI. NECK: Trachea midline. Supple. ENT: Mucous membranes pink and moist with few small white plaques on the posterior bilateral pharynx. Tongue sparing. No bleeding noted. No uvular deviation. LUNGS: Airway patent. No retractions. Breath sounds slight expiratory wheeze HEART: Regular rate and rhythm. No chest wall tenderness ABDOMEN: Soft and non-tender, without guarding or rebound. SKIN: Acyanotic, warm, dry, without rashes EXTREMITIES: Without swelling, tenderness or deformity NEUROLOGICAL: No focal deficits. No aphasia. No facial droop or slurred speech. EK beats per minute. Normal sinus rhythm. No PVC or PAC. No acute ST segment elevation with anterior and inferior T wave inversions and slight ST depression. CONTINUOUS CARDIAC MONITORING: was ordered and showed a heart rate of 90s bpm in normal sinus rhythm GCS 15. Patient's laboratory studies and imaging reviewed. Differential includes Infection, dehydration, metabolic abnormality, hypo/hyperglycemia, electrolyte disturbance, anemia, hypoxia, cardiac sources, intracerebral event, toxicologic, neurologic, as well as other pathologies. IMPRESSION/MEDICAL DECISION MAKING: Patient pancreatic cancer history on chemotherapy with increasing weakness and suffered a fall. CT head be obtained but no evidence of other significant trauma the patient's person. Neurologically intact at this time just generalized weakness. EKG with some anterior and lateral T wave inversions slight ST depression. Troponin elevated almost to thousand today. Patient without active chest pain. History of anemia from blood work yesterday accessed in the [employer] system shows a hemoglobin yesterday of 7.1. Neutropenic at 0.84 yesterday. Chest x-ray here without significant abnormality or signs of significant fluid overload. Does not appear fluid overloaded on exam. Does have some very mild hyponatremia of 129 this does appear similar to yesterday but worse from just a week ago.. Normal renal function today. LFTs just slightly abnormal but similar to previous. Procalcitonin ordered. Will send a lactate and blood cultures given his immunocompromise status. Consented for blood and will order transfusion given his EKG changes, weakness, and significant anemia. Do question if Troponin elevation and heart issue is demand related to his anemia. Not having other symptoms of active bleeding. CT of the head reassuring without signs of bleeding per radiology. Blood counts here to confirm neutropenia as well as a hemoglobin 7.3. Again given the elevated troponin will transfuse. Procalcitonin elevated and again culture and lactates are being sent. Given 500 cc of IV fluid bolus. Will cover empirically with a dose of Zosyn. Blood pressure has been somewhat borderline. Discussed with [facility] oncology and 2 units of leukoreduced packed red blood cells ordered given the elevated troponin. Respiratory viral panel completed. Returns positive for COVID-19 likely contributing. Has had a slight cough and given a DuoNeb here. Will give a dose of steroids for anti-inflammatory effect although not requiring oxygen at this point. Family and patient updated. Does later have low-grade temperature 37.7C given some Tylenol. Do not believe this is transfusion reaction believe it is related to his underlying illness/COVID. DIAGNOSIS: Weakness, pancreatic cancer, NSTEMI, anemia, hyponatremia DISPOSITION: Hospitalist will evaluate Patient was agreeable with this plan. Critical Care I have personally spent 46 minutes of critical care time in the direct management of this patient. This includes bedside care, interpretation of diagnostic studies, and testing, discussion with consultants, patient, and family members, and other required patient management activities. These 46 minutes is in excess of all separately billable procedures. Past Med/Surg History Problem List (Updated 02/25/24 @ 17:45 by Kyle Rodriguez MD) Pancytopenia COVID-19 (Acute) Neutropenia (Acute) Acute hyponatremia (Acute) Pancreatic cancer (Acute) Anemia (Acute) Non-ST elevation PA (NSTEMI) (Acute) Weakness (Acute) Thrush (Acute) S/P coronary artery stent placement Non-ST elevation (NSTEMI) myocardial infarction Abdominal pain Fever (Acute) Pancreatic cancer metastasized to liver (Acute) Acute non-ST elevation myocardial infarction (NSTEMI) (Acute) Abnormal LFTs Severe sepsis Encounter for pre-operative examination Hx of CABG 1999 > 4 vessels > [facility] > follows with Dr. Lunsford Angina pectoris chronic stable class I per cardio Aortic stenosis (Acute) CAD (coronary artery disease) (Acute) Dry skin (Acute) Enlarged prostate with lower urinary tract symptoms (LUTS) (Acute) Former smoker (Acute) GERD (gastroesophageal reflux disease) (Acute) Hypercholesterolemia (Acute) Hypertension (Acute) Nephrolithiasis (Acute) Non Q wave myocardial infarction (Acute) 2002 Shortness of breath (Acute) per pt, uses inhaler in AM and resolved Type 2 diabetes mellitus (Acute) Medical History Pancreatic cancer stage 4; now with mets Hx of renal calculi Dyspnea reason for inhaler, uses every morning Angina pectoris chronic stable class I per cardio; follows closely with [facility] Cardio Non Q wave myocardial infarction 2002; 'questionable per pt' CAD (coronary artery disease) CABG August 1999, LM and LAD stents August 2009, RCA and LAD stents September 2009 Aortic stenosis follows with Dr. Lunsford; mild-mod per 08/27/23 ECHO BPH (benign prostatic hyperplasia) GERD (gastroesophageal reflux disease) Hyperlipidemia Hypertension Type 2 diabetes mellitus Surgical History Hx of CABG 1999 > 4 vessels > [facility] > follows with Dr. Lunsford History of insertion of pancreatic stent (01/16/24) [facility] Hx of biopsy (12/2023) pancreas and liver History of left cataract surgery History of esophagogastroduodenoscopy (EGD) History of colonoscopy History of tooth extraction History of tonsillectomy H/O lithotripsy Hx of cardiac cath 2009 > 5 stents - [facility] (LM and LAD stents August 2009, RCA and LAD stents September 2009) Family History Father Myocardial infarction Other Diabetes Heart disease Social History Smoking Status: Unknown if ever smoked Tobacco Type: Cigarettes Second Hand Exposure: No; Do You Dip or Chew Tobacco: No; Hx Alcohol Use: No Hx Substance Use: No Preferred Language: Pashto Communication Ability: Effective Optimization Specialist Required: No Beliefs That Will Affect Care: None marital status: Current Living Situation: Significant Other Feels Safe at Home: Yes Safety Concerns: Feels Safe At This Time Assistive Devices: Walker Allergies Allergies Allergy/AdvReac Type Severity Reaction Status Date / Time Iodinated Contrast Media Allergy Intermediate Rash Verified 02/03/24 12:55 levofloxacin Allergy Intermediate RASH Verified 02/03/24 12:55 lisinopril AdvReac Mild Cough Verified 02/03/24 12:56 Home Meds Home Medications Medication Instructions Recorded Confirmed multivitamin (Multiple Vitamins 1 tab PO QPM 12/02/18 02/25/24 tablet) atorvastatin 80 mg tablet 80 mg PO QPM 01/06/19 02/25/24 cholecalciferol (vitamin D3) 50 2,000 units PO QAM 01/06/19 02/25/24 mcg (2,000 unit) tablet clopidogrel 75 mg tablet 75 mg PO QAM 01/06/19 02/25/24 ezetimibe 10 mg tablet 10 mg PO HS 01/06/19 02/25/24 metformin 500 mg tablet 500 mg PO .COMPLEX 01/06/19 02/25/24 nitroglycerin 0.4 mg sublingual 0.4 mg sublingual Q5M PRN Chest 01/06/19 02/25/24 tablet Pain #1 tab ranolazine 1,000 mg 1,000 mg PO Q12H #180 tabs 01/06/19 02/25/24 tablet,extended release,12 hr triamcinolone acetonide 0.1 % 1 appln topical BID PRN Rash 01/06/19 02/25/24 topical cream fluticasone propionate 50 1 spray intranasal DAILY 03/16/20 02/25/24 mcg/actuation nasal spray,suspension albuterol sulfate 90 mcg/actuation 2 inh inhalation Q6H PRN SOB 09/17/22 02/25/24 breath activated powder inhaler atenolol 50 mg tablet 50 mg PO QAM 03/14/23 02/25/24 pantoprazole 20 mg tablet,delayed 20 mg PO QAM 01/30/24 02/25/24 release L.acidoph-L.rhamn-B.bifidum-B.long 1 tab PO DAILYBB 02/07/24 02/07/24 12.9 mg (2 billion cell) tablet, DR aspirin 81 mg tablet,delayed 81 mg PO QPM 02/07/24 02/25/24 release cyanocobalamin (vitamin B-12) 1,000 mcg IM .EVERY 30 DAYS 02/07/24 02/25/24 1,000 mcg/mL injection solution docusate sodium 100 mg capsule 100 mg PO BID 02/07/24 02/07/24 iron,carbonyl 65 mg-vitamin C 125 1 tab PO Q OTHER DAY 02/07/24 02/25/24 mg tablet,delayed release (Vitron-C) isosorbide mononitrate 60 mg 120 mg PO QAM 02/07/24 02/25/24 tablet,extended release 24 hr lidocaine-prilocaine 2.5 %-2.5 % 1 applic topical UD 02/07/24 02/25/24 topical cream ondansetron HCl 8 mg tablet 8 mg PO Q8 PRN Nausea 02/07/24 02/25/24 polyethylene glycol 3350 17 17 g PO DAILY 02/07/24 02/07/24 gram/dose oral powder (Miralax) prochlorperazine maleate 10 mg 10 mg PO Q6 PRN Nausea 02/07/24 02/25/24 tablet Previous Rx's Medication Instructions Recorded tamsulosin 0.4 mg capsule 0.4 mg PO BID #180 caps 12/03/19 oxycodone-acetaminophen 5 mg-325 1 tab PO Q6H PRN pain #14 tabs 02/03/24 mg tablet (Percocet) magnesium oxide 400 mg (241.3 mg 400 mg PO BID #30 tabs 02/13/24 magnesium) tablet nystatin 100,000 unit/mL oral 5 ml PO QID #473 mL 02/22/24 suspension nystatin 100,000 unit/mL oral 5 ml buccal QID #473 mL 02/22/24 suspension Results & Data (ED) Vital Signs Vital Signs - 24 hr 02/25/24 13:52 02/25/24 13:52 02/25/24 13:52 Temperature 36.9 C Temperature Source Oral Pulse Rate 91 H Pulse Rate [Apical] Pulse Rhythm Pulse Rhythm [Apical] Pulse Strength Pulse Strength [Apical] Respiratory Rate 22 Respiratory Effort / Characteristics Non-Labored Respiratory Depth Normal Normal Respiratory Pattern Blood Pressure 93/57 L Blood Pressure [Left Arm] Blood Pressure Mean 69 Blood Pressure Mean [Left Arm] Blood Pressure Position Lying Pulse Oximetry 96 Oxygen Delivery Method Room Air Room Air Sepsis Recent Fever Within 48 Hours No Sepsis New/Unexplained Change in Mental Status No Sepsis Action Taken by Nursing No Action Required 02/25/24 14:10 02/25/24 14:38 02/25/24 15:58 Temperature 37.1 C Temperature Source Oral Pulse Rate 87 Pulse Rate [Apical] 96 H Pulse Rhythm Pulse Rhythm [Apical] Pulse Strength Pulse Strength [Apical] Normal Respiratory Rate 18 Respiratory Effort / Characteristics Non-Labored Spontaneous Respiratory Depth Normal Respiratory Pattern Regular Blood Pressure Blood Pressure [Left Arm] 92/52 L Blood Pressure Mean Blood Pressure Mean [Left Arm] 65 Blood Pressure Position Pulse Oximetry 97 97 Oxygen Delivery Method Room Air Room Air Sepsis Recent Fever Within 48 Hours Sepsis New/Unexplained Change in Mental Status Sepsis Action Taken by Nursing 02/25/24 17:02 02/25/24 17:09 02/25/24 17:18 Temperature 37.1 C 37.2 C Temperature Source Oral Oral Pulse Rate 96 H 93 H Pulse Rate [Apical] 96 H Pulse Rhythm Regular Regular Pulse Rhythm [Apical] Regular Pulse Strength Normal Normal Pulse Strength [Apical] Normal Respiratory Rate 25 H 19 19 Respiratory Effort / Characteristics Non-Labored Spontaneous Respiratory Depth Normal Respiratory Pattern Regular Blood Pressure 91/69 L 100/51 L Blood Pressure [Left Arm] 99/53 L Blood Pressure Mean 76 67 Blood Pressure Mean [Left Arm] 68 Blood Pressure Position Lying Pulse Oximetry 98 98 100 Oxygen Delivery Method Room Air Sepsis Recent Fever Within 48 Hours Sepsis New/Unexplained Change in Mental Status Sepsis Action Taken by Nursing 02/25/24 17:30 Temperature 37.7 C H Temperature Source Oral Pulse Rate 92 H Pulse Rate [Apical] Pulse Rhythm Regular Pulse Rhythm [Apical] Pulse Strength Normal Pulse Strength [Apical] Respiratory Rate 17 Respiratory Effort / Characteristics Respiratory Depth Respiratory Pattern Blood Pressure 95/50 L Blood Pressure [Left Arm] Blood Pressure Mean 65 Blood Pressure Mean [Left Arm] Blood Pressure Position Pulse Oximetry Oxygen Delivery Method Sepsis Recent Fever Within 48 Hours Sepsis New/Unexplained Change in Mental Status Sepsis Action Taken by Nursing Laboratory Data 02/25/24 13:43 02/25/24 13:43 Lab Results 02/25/24 02/25/24 02/25/24 Range/Units 13:43 15:10 15:12 WBC 1.17 L (4.8-10.8) K/ul RBC 2.67 L (4.70-6.10) M/uL Hgb 7.3 L (14.0-18.0) g/dl Hct 22.1 L (42.0-52.0) % MCV 82.8 (80.0-100.0) fL MCH 27.3 (25.0-34.0) pg MCHC 33.0 (32.0-36.0) g/dL RDW Std Deviation 45.8 (36.4-46.3) fL RDW Coeff of Loli 15.2 H (11.5-14.5) % Plt Count 170 (130-400) K/uL MPV 10.1 (9.4-12.4) fL Absolute Nucleated RBC 0.04 (0.00-0.12) K/uL Nucleated RBC % (auto) 3.4 % Neutrophils % (Manual) 19 % Lymphocytes % (Manual) 16 % Monocytes % (Manual) 60 % Metamyelocytes % (Man) 4 % Blast Cells % (Manual) 1 % Neutrophils # (Manual) 0.22 L (1.40-6.50) K/uL Total Absolute Neuts 0.22 L* (1.4-6.5) K/uL Lymphocytes # (Manual) 0.19 L (1.2-3.4) K/uL Total Abs Lymphocytes 0.19 L (1.2-3.4) K/uL Monocytes # (Manual) 0.70 H (0.11-0.59) K/uL Metamyelocytes # (Man) 0.05 H (0-0) K/uL Blast Cells # (Man) 0.01 H (0-0) K/uL Schistocytes Occasional PT 14.7 H (9.0-12.0) Seconds INR 1.4 H (0.9-1.1) APTT 36 H (21-31) Seconds PTT Ratio 1.3 Sodium 129 L (136-145) mmol/L Potassium 3.8 (3.5-5.1) mmol/L Chloride 98 (98-107) mmol/L Carbon Dioxide 23 (21-32) mmol/L Anion Gap 8 (3-11) BUN 23 (6-23) mg/dl Creatinine 0.97 (0.6-1.4) mg/dl Est Cr Clr Drug Dosing 55.7 ml/min eGFR 79.41 BUN/Creatinine Ratio 23.7 H (10-20) Glucose 115 H (70-99(Fasting)) mg/dl Lactate (0.4-2.0) mmol/L Calcium 8.0 L (8.6-10.3) mg/dl Magnesium 1.7 (1.7-2.4) mg/dl Total Bilirubin 1.2 H (0.2-1.0) mg/dl AST 67 H (13-39) U/L ALT 95 H (7-52) U/L Alkaline Phosphatase 304 H (34-104) U/L Troponin I High Sens 998.0 H* (0-20) pg/ml Total Protein 5.1 L (6.0-8.3) gm/dl Albumin 2.4 L (3.4-5.0) gm/dl Globulin 2.7 (2.5-4.0) gm/dl Albumin/Globulin Ratio 0.9 (0.9-2) Lipase 3 L (11-82) U/L Procalcitonin 1.50 H (0-0.5) ng/ml Adenovirus (PCR) Not Detected (NotDetected) B. pertussis DNA (PCR) Not Detected (NotDetected) B.parapertussis DNA PCR Not Detected (NotDetected) C. pneumoniae DNA (PCR) Not Detected (NotDetected) Coronavirus OC43 (PCR) Not Detected (NotDetected) Coronavirus HKU1 (PCR) Not Detected (NotDetected) Coronavirus 229E (PCR) Not Detected (NotDetected) SARS-CoV-2 (PCR) DETECTED A (NotDetected) Coronavirus NL63 (PCR) Not Detected (NotDetected) Human Metapneumovir PCR Not Detected (NotDetected) Influenza Type A (PCR) Not Detected (NotDetected) Influenza Type B (PCR) Not Detected (NotDetected) M. pneumoniae (PCR) Not Detected (NotDetected) Parainfluenza 1 (PCR) Not Detected (NotDetected) Parainfluenza 2 (PCR) Not Detected (NotDetected) Parainfluenza 3 (PCR) Not Detected (NotDetected) Parainfluenza 4 (PCR) Not Detected (NotDetected) RSV (PCR) Not Detected (NotDetected) Entero/Rhino (PCR) Not Detected (NotDetected) Blood Type Cancelled Antibody Screen Cancelled Crossmatch 02/25/24 02/25/24 Range/Units 15:13 16:34 WBC (4.8-10.8) K/ul RBC (4.70-6.10) M/uL Hgb (14.0-18.0) g/dl Hct (42.0-52.0) % MCV (80.0-100.0) fL MCH (25.0-34.0) pg MCHC (32.0-36.0) g/dL RDW Std Deviation (36.4-46.3) fL RDW Coeff of Loli (11.5-14.5) % Plt Count (130-400) K/uL MPV (9.4-12.4) fL Absolute Nucleated RBC (0.00-0.12) K/uL Nucleated RBC % (auto) % Neutrophils % (Manual) % Lymphocytes % (Manual) % Monocytes % (Manual) % Metamyelocytes % (Man) % Blast Cells % (Manual) % Neutrophils # (Manual) (1.40-6.50) K/uL Total Absolute Neuts (1.4-6.5) K/uL Lymphocytes # (Manual) (1.2-3.4) K/uL Total Abs Lymphocytes (1.2-3.4) K/uL Monocytes # (Manual) (0.11-0.59) K/uL Metamyelocytes # (Man) (0-0) K/uL Blast Cells # (Man) (0-0) K/uL Schistocytes PT (9.0-12.0) Seconds INR (0.9-1.1) APTT (21-31) Seconds PTT Ratio Sodium (136-145) mmol/L Potassium (3.5-5.1) mmol/L Chloride (98-107) mmol/L Carbon Dioxide (21-32) mmol/L Anion Gap (3-11) BUN (6-23) mg/dl Creatinine (0.6-1.4) mg/dl Est Cr Clr Drug Dosing ml/min eGFR BUN/Creatinine Ratio (10-20) Glucose (70-99(Fasting)) mg/dl Lactate 2.2 H* (0.4-2.0) mmol/L Calcium (8.6-10.3) mg/dl Magnesium (1.7-2.4) mg/dl Total Bilirubin (0.2-1.0) mg/dl AST (13-39) U/L ALT (7-52) U/L Alkaline Phosphatase (34-104) U/L Troponin I High Sens (0-20) pg/ml Total Protein (6.0-8.3) gm/dl Albumin (3.4-5.0) gm/dl Globulin (2.5-4.0) gm/dl Albumin/Globulin Ratio (0.9-2) Lipase (11-82) U/L Procalcitonin (0-0.5) ng/ml Adenovirus (PCR) (NotDetected) B. pertussis DNA (PCR) (NotDetected) B.parapertussis DNA PCR (NotDetected) C. pneumoniae DNA (PCR) (NotDetected) Coronavirus OC43 (PCR) (NotDetected) Coronavirus HKU1 (PCR) (NotDetected) Coronavirus 229E (PCR) (NotDetected) SARS-CoV-2 (PCR) (NotDetected) Coronavirus NL63 (PCR) (NotDetected) Human Metapneumovir PCR (NotDetected) Influenza Type A (PCR) (NotDetected) Influenza Type B (PCR) (NotDetected) M. pneumoniae (PCR) (NotDetected) Parainfluenza 1 (PCR) (NotDetected) Parainfluenza 2 (PCR) (NotDetected) Parainfluenza 3 (PCR) (NotDetected) Parainfluenza 4 (PCR) (NotDetected) RSV (PCR) (NotDetected) Entero/Rhino (PCR) (NotDetected) Blood Type A Positive Antibody Screen NEGATIVE Crossmatch See Detail Administered Medications Enoxaparin Sodium (Enoxaparin Inj 40 Mg/0.4 Ml Syr) 40 mg SQ Q24H ALESSANDRO Stop: 03/26/24 19:29 Last Admin: 02/25/24 21:20 Dose: 40 mg Documented By: JACOBY Lactated Ringer's (Lr) 1,000 mls @ 125 mls/hr IV .Q8H ALESSANDRO Stop: 02/26/24 17:59 Last Admin: 02/25/24 20:04 Dose: 125 mls/hr Documented By: JACOBY Cefepime HCl (Maxipime 2000mg) 2,000 mg in 20 mls @ 5 mls/min IV Q12H ALESSANDRO; Protocol Stop: 02/27/24 19:59 Last Admin: 02/25/24 20:04 Dose: 5 mls/min Documented By: JACOBY Ondansetron HCl (Ondansetron Inj 2 Mg/Ml 2 Ml Vial) 4 mg IV Q6H PRN PRN Reason: Nausea Stop: 03/26/24 19:11 Last Admin: 02/25/24 20:04 Dose: 4 mg Documented By: JACOBY Discontinued Medications Albuterol (Albut/Ipratrop 3mg/0.5mg Neb 3 Ml Vial) 3 ml NEB NOW STA; Protocol Stop: 02/25/24 16:37 Last Admin: 02/25/24 16:57 Dose: 3 ml Documented By: [facility] Dexamethasone Sodium Phosphate (DexamethasonePf 10 Mg/Ml Vial) 6 mg IV NOW ONE Stop: 02/25/24 16:32 Last Admin: 02/25/24 16:57 Dose: 6 mg Documented By: [facility] Filgrastim (Filgrastim 480 Mcg/1.6 Ml Vial) 480 mcg SC ONE ONE Stop: 02/25/24 17:51 Last Admin: 02/25/24 18:36 Dose: 480 mcg Documented By: PERLITA Sodium Chloride (Nss) 500 mls @ 999 mls/hr IV .Q31M ONE Stop: 02/25/24 15:35 Last Infusion: 02/25/24 15:53 Dose: Infused Documented By: Admin: 02/25/24 15:13 Dose: 999 mls/hr Documented By: Piperacillin Sod/Tazobactam Sod (Zosyn) 4.5 gm in 100 mls @ 200 mls/hr IV NOW ONE; Protocol Stop: 02/25/24 16:16 Last Infusion: 02/25/24 18:33 Dose: Infused Documented By: Admin: 02/25/24 17:20 Dose: 200 mls/hr Documented By: PERLITA Remdesivir 200 mg/ Sodium (Chloride) 250 mls @ 125 mls/hr IV NOW STA; Protocol Stop: 02/25/24 19:49 Last Infusion: 02/25/24 22:35 Dose: Infused Documented By: [facility] Admin: 02/25/24 18:39 Dose: 125 mls/hr Documented By: PERLITA Acetaminophen (Ofirmev) 1,000 mg in 100 mls @ 400 mls/hr IV NOW STA Stop: 02/25/24 17:56 Last Infusion: 02/25/24 18:18 Dose: Infused Documented By: Admin: 02/25/24 17:51 Dose: 400 mls/hr Documented By: PERLITA Imaging Data Radiologist's Impression: Chest X-Ray 02/25/24 14:38 XR chest 1V portable HISTORY: 78 years-old Male weakness COMPARISON: 02/07/2024 TECHNIQUE: AP view of the chest FINDINGS: Cardiac silhouette is enlarged. Median sternotomy with mediastinal surgical clips. Right IJ [id number] catheter redemonstrated. No pneumothorax or large pleural effusion. Chronic interstitial coarsening. Partially imaged right upper quadrant biliary stent. Degenerative changes of the shoulders and spine. IMPRESSION: 1. Cardiomegaly without overt pulmonary edema. 2. Chronic interstitial coarsening. ACT 112: Negative or not required by law. The above report was generated using voice recognition software. It may contain grammatical, syntax or spelling errors. Electronically signed by: Manuel Calderon M.D. 02/25/2024 2:[address] 02/25/24 15:05 EXAMINATION: Head CT without CLINICAL HISTORY: Fall, hit head, on Plavix PRIORS: None TECHNIQUE: Contiguous axial images were obtained through the head without the use of intravenous contrast. Sagittal and coronal reformations are supplied. FINDINGS: Age appropriate parenchymal volume is noted. Scattered periventricular lucencies present in the deep white matter representing small vessel occlusive disease. Pretty-white differentiation is preserved. No edema or midline shift. No intra-axial or extra-axial hemorrhage. Ventricles are normal in size and configuration. Brainstem and cerebellum have a normal appearance. Calvarium unremarkable. Paranasal sinuses and mastoid air cells are well-pneumatized. Globes are intact. No retrobulbar abnormality. IMPRESSION: No CT evidence of an acute intracranial abnormality. Electronically signed by Yanci Hernández 02-25-2024 4:27 PM Discharge Plan Visit Data Chief Complaint: Weakness ED Provider: Smith Lind Discharge Problem: Weakness, Non-ST elevation PA (NSTEMI), Anemia, Pancreatic cancer, Acute hyponatremia, Neutropenia, COVID-19 Patient Disposition: Being Evaluated by Hospitalist Discharge Instructions Interventions: ED Discharge Assessment Last Done: 02/25/24 19:13
[2024-02-25 15:37] LABS: Magnesium 1.7 mg/dl (1.7-2.4)
[2024-02-25 15:42] LABS: Hematocrit (blood only) 22.1 % (42.0-52.0); Hemoglobin 7.3 g/dl (14.0-18.0); Mean Corpuscular Hemoglobin 27.3 pg (25.0-34.0); Mean Corpuscular Volume 82.8 fL (80.0-100.0); Mean Platelet Volume 10.1 fL (9.4-12.4); Nucleated RBC # (auto) 0.04 K/uL (0.00-0.12); Nucleated RBC % (auto) 3.4 %; Platelet Count 170 K/uL (130-400); RDW Coefficient of Variation 15.2 % (11.5-14.5); RDW Standard Deviation 45.8 fL (36.4-46.3); Red Blood Count 2.67 M/uL (4.70-6.10); White Blood Count 1.17 K/ul (4.8-10.8)
[2024-02-25 15:43] LABS: INR 1.4 (0.9-1.1); Partial Thromboplastin Ratio 1.3; Partial Thromboplastin Time 36 Seconds (21-31); Prothrombin Time 14.7 Seconds (9.0-12.0)
[2024-02-25] MEDS ORDERED: SODIUM CHLORIDE 0.9% 100 ML IV PRN (15:57)
[2024-02-25] MEDS ORDERED: SODIUM CHLORIDE 0.9% 50 ML IV PRN (15:57)
[2024-02-25 16:18] LABS: Adenovirus PCR Not Detected (NotDetected); Bordetella parapertussis PCR Not Detected (NotDetected); Bordetella pertussis PCR Not Detected (NotDetected); Chlamydia pneumoniae PCR Not Detected (NotDetected); Coronavirus 229E PCR Not Detected (NotDetected); Coronavirus CoV-2 (COVID19)PCR DETECTED (NotDetected); Coronavirus HKU1 PCR Not Detected (NotDetected); Coronavirus NL63 PCR Not Detected (NotDetected); Coronavirus OC43PCR Not Detected (NotDetected); Human Metapneumovirus PCR Not Detected (NotDetected); Influenza A PCR Not Detected (NotDetected); Influenza B PCR Not Detected (NotDetected); Mycoplasma pneumoniae PCR Not Detected (NotDetected); Parainfluenza Virus 1 PCR Not Detected (NotDetected); Parainfluenza Virus 2 PCR Not Detected (NotDetected); Parainfluenza Virus 3 PCR Not Detected (NotDetected); Parainfluenza Virus 4 PCR Not Detected (NotDetected); Respiratory Syncytial VirusPCR Not Detected (NotDetected); Rhinovirus/Enterovirus PCR Not Detected (NotDetected)
--- NOTE | 2024-02-25 16:28 | CT Scan Report ---
EXAMINATION: Head CT without CLINICAL HISTORY: Fall, hit head, on Plavix PRIORS: None TECHNIQUE: Contiguous axial images were obtained through the head without the use of intravenous contrast. Sagittal and coronal reformations are supplied. FINDINGS: Age appropriate parenchymal volume is noted. Scattered periventricular lucencies present in the deep white matter representing small vessel occlusive disease. Pretty-white differentiation is preserved. No edema or midline shift. No intra-axial or extra-axial hemorrhage. Ventricles are normal in size and configuration. Brainstem and cerebellum have a normal appearance. Calvarium unremarkable. Paranasal sinuses and mastoid air cells are well-pneumatized. Globes are intact. No retrobulbar abnormality. IMPRESSION: No CT evidence of an acute intracranial abnormality. Electronically signed by Yanci Hernández 02-25-2024 4:27 PM
[2024-02-25] MEDS: ALBUT/IPRATROP 3MG/0.5MG NEB 3 ML VIAL NEB STA (16:57)
[2024-02-25] MEDS: dexAMETHasone**PF** 10 MG/ML VIAL IV ONE (16:57)
[2024-02-25] MEDS: PIPERACILLIN/TAZOBACTAM 4.5 GM/100 ML BAG IV ONE (17:20)
[2024-02-25 17:38] LABS: ALC (manual) 0.19 K/uL (1.2-3.4); ANC (manual) 0.22 K/uL (1.4-6.5); Blast # (manual) 0.01 K/uL (0-0); Blast Cells % (manual) 1 %; Lymphocytes # (manual) 0.19 K/uL (1.2-3.4); Lymphocytes % (manual) 16 %; Metamyelocytes # (manual) 0.05 K/uL (0-0); Metamyelocytes % (manual) 4 %; Monocytes % (manual) 60 %; Neutrophils # (manual) 0.22 K/uL (1.40-6.50); Neutrophils % (manual) 19 %; Schistocytes Occasional
--- NOTE | 2024-02-25 17:50 | History & Physical Report ---
Date of Service February 25, 2024 Assessment & Plan (1) COVID-19: Plan: Patient does not have any finding on his chest x-ray, he does not have any hypoxemia however because of his immunodeficiency and being high risk, will consider treating with a course of remdesivir however does not require any steroid. Will monitor respiratory status closely, monitor vital signs and CBC indicis. (2) Pancytopenia: Plan: Patient is already getting 1 unit of PRBC, may consider giving a dose of G-CSF. Oncology was consulted however this appears to be chemotherapy induced. Monitor CBC daily. (3) Acute hyponatremia: Plan: At this point I think this is related to hypovolemia, however SIADH is also among differentials, will provide with IV fluid, monitor serum sodium, run workup for hyponatremia including serum sodium, urine sodium, serum and urine osmolality as well. (4) Pancreatic cancer: Plan: This appears end-stage, get oncology on board to clarify plan of care as patient does not seem to be getting quality life. CODE STATUS was discussed with family and patient will be DNR. (5) Non-ST elevation [place] (NSTEMI): Plan: Troponin will be followed up, EKG will be monitored, will transfuse and monitor troponin level, this appears to be secondary to demand ischemia, cardiology will be consulted and a will monitor clinical progress. Plan Patient will be admitted, will be transfused, monitor CBC and response to treatment, empirically treat with remdesivir, I am aware of his elevated procalcitonin however I think this is multifactorial secondary to underlying malignancy as well as COVID-19 disease. Await the result of urinalysis and cultures , may consider empirical antibiotic. History of Present Illness Chief Complaint: Generalized weakness/fall from chair Primary Care Provider: Pedro Luis Bowens DO Patient is a 78-year-old gentleman with history of metastatic pancreatic cancer with chronic pancytopenia, history of coronary artery disease status post CABG currently under chemotherapy for which he has not been able to complete because of recurrent illnesses. Family stated that patient developed generalized weakness since this morning and they decided to bring the patient to the hospital. Patient is obtunded but arousable, denies having any new symptom besides weakness. Workup revealed numerous abnormalities including him being positive for COVID 19 although chest x-ray was negative for any infiltrate and patient did not have any hypoxemic respiratory failure, hemoglobin was found to be 7.3, patient did have elevated troponin of up to 1000 with some new anterolateral T inversions of changes which is new. His procalcitonin was found to be 1.5 and his sodium was found to be found to be 129. I had a long conversation with multiple family members in the room, at this point were going to admit him for patient to be transfused, will monitor troponin levels, get cardiology, infectious disease and oncology consultation as per our discussion considering his CODE STATUS which was set as DNR, it is felt that patient does not get a quality life and we would like oncology to provide more information and assessment on further chemotherapy. Allergies Allergy/AdvReac Type Severity Reaction Status Date / Time Iodinated Contrast Media Allergy Intermediate Rash Verified 02/03/24 12:55 levofloxacin Allergy Intermediate RASH Verified 02/03/24 12:55 lisinopril AdvReac Mild Cough Verified 02/03/24 12:56 Home Medications Medication Instructions Recorded Confirmed Type multivitamin (Multiple Vitamins 1 tab PO QPM 12/02/18 02/07/24 History tablet) atorvastatin 80 mg tablet 80 mg PO QPM 01/06/19 02/07/24 History cholecalciferol (vitamin D3) 50 2,000 units PO QAM 01/06/19 02/07/24 History mcg (2,000 unit) tablet clopidogrel 75 mg tablet 75 mg PO QAM 01/06/19 02/07/24 History ezetimibe 10 mg tablet 10 mg PO HS 01/06/19 02/07/24 History metformin 500 mg tablet 500 mg PO .COMPLEX 01/06/19 02/07/24 History nitroglycerin 0.4 mg sublingual 0.4 mg sublingual Q5M PRN Chest 01/06/19 02/07/24 History tablet Pain #1 tab ranolazine 1,000 mg 1,000 mg PO Q12H #180 tabs 01/06/19 02/07/24 History tablet,extended release,12 hr triamcinolone acetonide 0.1 % 1 appln topical BID PRN Rash 01/06/19 02/07/24 History topical cream tamsulosin 0.4 mg capsule 0.4 mg PO BID #180 caps 12/03/19 02/07/24 Rx fluticasone propionate 50 1 spray intranasal DAILY 03/16/20 02/07/24 History mcg/actuation nasal spray,suspension albuterol sulfate 90 mcg/actuation 2 inh inhalation Q6H PRN SOB 09/17/22 02/07/24 History breath activated powder inhaler atenolol 50 mg tablet 50 mg PO QAM 03/14/23 02/07/24 History pantoprazole 20 mg tablet,delayed 20 mg PO QAM 01/30/24 02/07/24 History release oxycodone-acetaminophen 5 mg-325 1 tab PO Q6H PRN pain #14 tabs 02/03/2402/06 Rx mg tablet (Percocet) L.acidoph-L.rhamn-B.bifidum-B.long 1 tab PO DAILYBB 02/07/24 02/07/24 History 12.9 mg (2 billion cell) tablet, DR aspirin 81 mg tablet,delayed 81 mg PO QPM 02/07/24 02/07/24 History release cyanocobalamin (vitamin B-12) 1,000 mcg IM .EVERY 30 DAYS 02/07/24 02/07/24 History 1,000 mcg/mL injection solution docusate sodium 100 mg capsule 100 mg PO BID 02/07/24 02/07/24 History iron,carbonyl 65 mg-vitamin C 125 1 tab PO Q OTHER DAY 02/07/24 02/07/24 History mg tablet,delayed release (Vitron-C) isosorbide mononitrate 60 mg 120 mg PO QAM 02/07/24 02/07/24 History tablet,extended release 24 hr lidocaine-prilocaine 2.5 %-2.5 % 1 applic topical UD 02/07/24 02/07/24 History topical cream ondansetron HCl 8 mg tablet 8 mg PO Q8 PRN Nausea 02/07/24 02/07/24 History polyethylene glycol 3350 17 17 g PO DAILY 02/07/24 02/07/24 History gram/dose oral powder (Miralax) prochlorperazine maleate 10 mg 10 mg PO Q6 PRN Nausea 02/07/24 02/07/24 History tablet magnesium oxide 400 mg (241.3 mg 400 mg PO BID #30 tabs 02/13/24 Rx magnesium) tablet nystatin 100,000 unit/mL oral 5 ml PO QID #473 mL 02/22/24 Rx suspension nystatin 100,000 unit/mL oral 5 ml buccal QID #473 mL 02/22/24 Rx suspension Past Med/Surg History Problem List (Updated 02/25/24 @ 17:45 by Kyle Rodriguez MD) Pancytopenia COVID-19 (Acute) Neutropenia (Acute) Acute hyponatremia (Acute) Pancreatic cancer (Acute) Anemia (Acute) Non-ST elevation NJ (NSTEMI) (Acute) Weakness (Acute) Thrush (Acute) S/P coronary artery stent placement Non-ST elevation (NSTEMI) myocardial infarction Abdominal pain Fever (Acute) Pancreatic cancer metastasized to liver (Acute) Acute non-ST elevation myocardial infarction (NSTEMI) (Acute) Abnormal LFTs Severe sepsis Encounter for pre-operative examination Hx of CABG 1999 > 4 vessels > [facility] > follows with Dr. Lunsford Angina pectoris chronic stable class I per cardio Aortic stenosis (Acute) CAD (coronary artery disease) (Acute) Dry skin (Acute) Enlarged prostate with lower urinary tract symptoms (LUTS) (Acute) Former smoker (Acute) GERD (gastroesophageal reflux disease) (Acute) Hypercholesterolemia (Acute) Hypertension (Acute) Nephrolithiasis (Acute) Non Q wave myocardial infarction (Acute) 2002 Shortness of breath (Acute) per pt, uses inhaler in AM and resolved Type 2 diabetes mellitus (Acute) Medical History Pancreatic cancer stage 4; now with mets Hx of renal calculi Dyspnea reason for inhaler, uses every morning Angina pectoris chronic stable class I per cardio; follows closely with [facility] Cardio Non Q wave myocardial infarction 2002; 'questionable per pt' CAD (coronary artery disease) CABG August 1999, LM and LAD stents August 2009, RCA and LAD stents September 2009 Aortic stenosis follows with Dr. Lunsford; mild-mod per 08/27/23 ECHO BPH (benign prostatic hyperplasia) GERD (gastroesophageal reflux disease) Hyperlipidemia Hypertension Type 2 diabetes mellitus Surgical History Hx of CABG 1999 > 4 vessels > [facility] > follows with Dr. Lunsford History of insertion of pancreatic stent (01/16/24) [facility] Hx of biopsy (12/2023) pancreas and liver History of left cataract surgery History of esophagogastroduodenoscopy (EGD) History of colonoscopy History of tooth extraction History of tonsillectomy H/O lithotripsy Hx of cardiac cath 2010 > 5 stents - [facility] (LM and LAD stents August 2009, RCA and LAD stents September 2009) Family History Father Myocardial infarction Other Diabetes Heart disease Social History Smoking Status: Former smoker Tobacco Type: Cigarettes Second Hand Exposure: No; Do You Dip or Chew Tobacco: No; Hx Alcohol Use: Yes Hx Substance Use: No Preferred Language: Luxembourgish Communication Ability: Effective Vegetable Buncher Required: No Beliefs That Will Affect Care: None marital status: Current Living Situation: Significant Other Feels Safe at Home: Yes Assistive Devices: None Review of Systems Review of Systems: Constitutional: Reported fever yesterday, no chills, generalized weakness ENT/Mouth: No Hearing Changes, No Ear Pain, No Nasal Congestion, No Sinus Pain, No Hoarseness, No sore throat, No Rhinorrhea, No Swallowing Difficulty Eyes: No Cardiovascular: No Chest Pain, No SOB, No PND, No Dyspnea on Exertion, No Orthopnea, No Claudication, No Edema, No Palpitations Respiratory: No Cough, No Sputum, No Wheezing, No Smoke Exposure, No Dyspnea Gastrointestinal: No Nausea, No Vomiting, No Diarrhea, No Constipation, No Pain, No Heartburn, No Anorexia, No Dysphagia, No Hematochezia, No Melena, No Flatulence, No Jaundice Genitourinary: No Dysmenorrhea, No DUB, No Dyspareunia, No Dysuria, No Urinary Frequency, No Hematuria, No Urinary Incontinence, No Urgency, No Flank Pain, No Urinary Flow Changes, No Hesitancy Physical Exam Physical Exam: VITALS: Reviewed. WEIGHT/BMI reviewed, patient is underweight/mild malnutrition GEN: Healthy appearing, well-developed, NAD. PSYCH: Unable to evaluate HEENT -Head: NC/AT; appears slightly jaundiced -Eyes: PERRL, EOMI. No discharge or redn ess; -Ears: External ears are normal. Normal TMs. -Nose: Normal nares. -Mouth and throat: MMM. Normal gums, muc branden, palate,. Good dentition. NECK: Supple, with no masses. CV: RRR, patient has a aortic systolic murmur LUNGS: CTAB, no w/r/c. ABD: Soft, NT/ND, NBS, no masses or organomegaly. : N/A SKIN: Warm, well perfused. No skin rashes or abnormal lesions. MSK: No deformities, Normal gait. EXT: No clubbing, cyanosis, or edema. NEURO: Ambulating with no limitations. Normal muscle strength and tone. No focal deficits. Results & Data Results & Data Vital Signs (Past 12 Hours) Vital Signs Temp Pulse Pulse Resp BP BP Pulse Ox 02/25/24 17:18 37.2 C 93 H 19 100/51 L 100 02/25/24 17:09 96 H 19 99/53 L 98 02/25/24 17:02 37.1 C 96 H 25 H 91/69 L 98 02/25/24 15:58 37.1 C 96 H 18 92/52 L 97 02/25/24 14:38 97 02/25/24 14:10 87 02/25/24 13:52 02/25/24 13:52 36.9 C 91 H 22 93/57 L 96 O2 Del Method 02/25/24 17:18 02/25/24 17:09 Room Air 02/25/24 17:02 02/25/24 15:58 Room Air 02/25/24 14:38 Room Air 02/25/24 14:10 02/25/24 13:52 Room Air 02/25/24 13:52 Room Air Laboratory Results Laboratory Results - last 24 hr 02/25/24 02/25/24 02/25/24 13:43 15:10 15:12 WBC 1.17 L RBC 2.67 L Hgb 7.3 L Hct 22.1 L MCV 82.8 MCH 27.3 MCHC 33.0 RDW Std Deviation 45.8 RDW Coeff of Loli 15.2 H Plt Count 170 MPV 10.1 Absolute Nucleated RBC 0.04 Nucleated RBC % (auto) 3.4 Neutrophils % (Manual) 19 Lymphocytes % (Manual) 16 Monocytes % (Manual) 60 Metamyelocytes % (Man) 4 Blast Cells % (Manual) 1 Neutrophils # (Manual) 0.22 L Total Absolute Neuts 0.22 L* Lymphocytes # (Manual) 0.19 L Total Abs Lymphocytes 0.19 L Monocytes # (Manual) 0.70 H Metamyelocytes # (Man) 0.05 H Blast Cells # (Man) 0.01 H Blood Smear Review Pending Schistocytes Occasional PT 14.7 H INR 1.4 H APTT 36 H PTT Ratio 1.3 Sodium 129 L Potassium 3.8 Chloride 98 Carbon Dioxide 23 Anion Gap 8 BUN 23 Creatinine 0.97 Est Cr Clr Drug Dosing 55.7 eGFR 79.41 BUN/Creatinine Ratio 23.7 H Glucose 115 H Lactate Calcium 8.0 L Magnesium 1.7 Total Bilirubin 1.2 H AST 67 H ALT 95 H Alkaline Phosphatase 304 H Troponin I High Sens 998.0 H* Total Protein 5.1 L Albumin 2.4 L Globulin 2.7 Albumin/Globulin Ratio 0.9 Lipase 3 L Procalcitonin 1.50 H Adenovirus (PCR) Not Detected B. pertussis DNA (PCR) Not Detected B.parapertussis DNA PCR Not Detected C. pneumoniae DNA (PCR) Not Detected Coronavirus OC43 (PCR) Not Detected Coronavirus HKU1 (PCR) Not Detected Coronavirus 229E (PCR) Not Detected SARS-CoV-2 (PCR) DETECTED A Coronavirus NL63 (PCR) Not Detected Human Metapneumovir PCR Not Detected Influenza Type A (PCR) Not Detected Influenza Type B (PCR) Not Detected M. pneumoniae (PCR) Not Detected Parainfluenza 1 (PCR) Not Detected Parainfluenza 2 (PCR) Not Detected Parainfluenza 3 (PCR) Not Detected Parainfluenza 4 (PCR) Not Detected RSV (PCR) Not Detected Entero/Rhino (PCR) Not Detected Blood Type Cancelled Antibody Screen Cancelled Crossmatch 02/25/24 02/25/24 15:13 16:34 WBC RBC Hgb Hct MCV MCH MCHC RDW Std Deviation RDW Coeff of Loli Plt Count MPV Absolute Nucleated RBC Nucleated RBC % (auto) Neutrophils % (Manual) Lymphocytes % (Manual) Monocytes % (Manual) Metamyelocytes % (Man) Blast Cells % (Manual) Neutrophils # (Manual) Total Absolute Neuts Lymphocytes # (Manual) Total Abs Lymphocytes Monocytes # (Manual) Metamyelocytes # (Man) Blast Cells # (Man) Blood Smear Review Schistocytes PT INR APTT PTT Ratio Sodium Potassium Chloride Carbon Dioxide Anion Gap BUN Creatinine Est Cr Clr Drug Dosing eGFR BUN/Creatinine Ratio Glucose Lactate 2.2 H* Calcium Magnesium Total Bilirubin AST ALT Alkaline Phosphatase Troponin I High Sens Total Protein Albumin Globulin Albumin/Globulin Ratio Lipase Procalcitonin Adenovirus (PCR) B. pertussis DNA (PCR) B.parapertussis DNA PCR C. pneumoniae DNA (PCR) Coronavirus OC43 (PCR) Coronavirus HKU1 (PCR) Coronavirus 229E (PCR) SARS-CoV-2 (PCR) Coronavirus NL63 (PCR) Human Metapneumovir PCR Influenza Type A (PCR) Influenza Type B (PCR) M. pneumoniae (PCR) Parainfluenza 1 (PCR) Parainfluenza 2 (PCR) Parainfluenza 3 (PCR) Parainfluenza 4 (PCR) RSV (PCR) Entero/Rhino (PCR) Blood Type A Positive Antibody Screen NEGATIVE Crossmatch See Detail Diagnostic Findings Chest X-Ray 02/25/24 14:38 XR chest 1V portable HISTORY: 78 years-old Male weakness COMPARISON: 02/07/2024 TECHNIQUE: AP view of the chest FINDINGS: Cardiac silhouette is enlarged. Median sternotomy with mediastinal surgical clips. Right IJ [id number] catheter redemonstrated. No pneumothorax or large pleural effusion. Chronic interstitial coarsening. Partially imaged right upper quadrant biliary stent. Degenerative changes of the shoulders and spine. IMPRESSION: 1. Cardiomegaly without overt pulmonary edema. 2. Chronic interstitial coarsening. ACT 112: Negative or not required by law. The above report was generated using voice recognition software. It may contain grammatical, syntax or spelling errors. Electronically signed by: Manuel Calderon M.D. 02/25/2024 2:[address] 02/25/24 15:05 EXAMINATION: Head CT without CLINICAL HISTORY: Fall, hit head, on Plavix PRIORS: None TECHNIQUE: Contiguous axial images were obtained through the head without the use of intravenous contrast. Sagittal and coronal reformations are supplied. FINDINGS: Age appropriate parenchymal volume is noted. Scattered periventricular lucencies present in the deep white matter representing small vessel occlusive disease. Pretty-white differentiation is preserved. No edema or midline shift. No intra-axial or extra-axial hemorrhage. Ventricles are normal in size and configuration. Brainstem and cerebellum have a normal appearance. Calvarium unremarkable. Paranasal sinuses and mastoid air cells are well-pneumatized. Globes are intact. No retrobulbar abnormality. IMPRESSION: No CT evidence of an acute intracranial abnormality. Electronically signed by Yanci Hernández 02-25-2024 4:27 PM Code Status & VTE Plan Code Status DNR/DNI VTE Prophylaxis Plan VTE Prophylaxis will be ordered: Yes
[2024-02-25] MEDS: ACETAMINOPHEN 1,000 MG/100 ML VIAL IV STA (17:51)
[2024-02-25] MEDS: FILGRASTIM 480 MCG/1.6 ML VIAL SC ONE (18:36)
[2024-02-25] MEDS: REMDESIVIR 200 MG in SODIUM CHLORIDE 0.9% 210 ML IV STA (18:39)
[2024-02-25] MEDS ORDERED: ACETAMINOPHEN 325 MG TAB PO PRN (19:12)
[2024-02-25] MEDS: CEFEPIME 2000MG 2,000 MG/20 ML SYR IV SCH (20:04)
[2024-02-25] MEDS: LACTATED RINGER'S 1,000 ML IV SCH (20:04)
[2024-02-25] MEDS: ONDANSETRON INJ 2 MG/ML 2 ML VIAL IV PRN (20:04)
[2024-02-25] MEDS: ENOXAPARIN INJ 40 MG/0.4 ML SYR SQ SCH (21:20)
[2024-02-25 21:51] LABS: Appearance Urine Clear (Clear); Bacteria Urine Automated None Seen (None Seen); Bilirubin Urine 1+ (Negative); Blood Urine Negative (Negative); Color Urine Dark Yellow; Epithelial Cell Urine Auto 0-2 /hpf (0-2); Glucose Urine UA Negative (Negative); Ketones Urine Trace (Negative); Leukocyte Esterase Urine 1+ (Negative); Nitrite Urine Positive (Negative); Protein Urine 1+ (Negative); Urobilinogen Urine Negative (Negative); WBC Urine Automated 0-5 /hpf (0-5)
[2024-02-25 22:20] LABS: Sperm Urine Present (None Prsent)
[2024-02-25 22:21] LABS: RBC Urine Automated 0-2 /hpf (0-2)
[2024-02-26 00:50] LABS: Hemoglobin 9.3 g/dl (14.0-18.0)
[2024-02-26 06:18] LABS: Hematocrit (blood only) 27.5 % (42.0-52.0); Hemoglobin 9.4 g/dl (14.0-18.0); Mean Corpuscular Hemoglobin 28.2 pg (25.0-34.0); Mean Corpuscular Hgb Conc 34.2 g/dL (32.0-36.0); Mean Corpuscular Volume 82.6 fL (80.0-100.0); Mean Platelet Volume 9.6 fL (9.4-12.4); Nucleated RBC # (auto) 0.22 K/uL (0.00-0.12); Nucleated RBC % (auto) 6.5 %; Platelet Count 172 K/uL (130-400); RDW Coefficient of Variation 14.8 % (11.5-14.5); RDW Standard Deviation 44.3 fL (36.4-46.3); Red Blood Count 3.33 M/uL (4.70-6.10); White Blood Count 3.41 K/ul (4.8-10.8)
[2024-02-26 06:36] LABS: Albumin Globulin Ratio 0.9 (0.9-2); Albumin Level 2.3 gm/dl (3.4-5.0); BUN Creatinine Ratio 26.2 (10-20); Bilirubin,Total 1.5 mg/dl (0.2-1.0); Creatinine Clr Calc Pharmacy 50.5 ml/min; Globulin 2.6 gm/dl (2.5-4.0); Potassium 3.7 mmol/L (3.5-5.1); Total Protein 4.9 gm/dl (6.0-8.3)
--- NOTE | 2024-02-26 09:30 | Electrocardiogram Report ---
Test Reason : Blood Pressure : */* mmHG Vent. Rate : 91 BPM Atrial Rate : 91 BPM P-R Int : 164 ms QRS Dur : 96 ms QT Int : 384 ms P-R-T Axes : 58 22 25 degrees QTcB Int : 472 ms Normal sinus rhythm Possible Inferior infarct (cited on or before 10-Feb-2024) Abnormal ECG When compared with ECG of 10-Feb-2024 08:33, No significant change was found Confirmed by Matt Lunsford ([id number]) on 02/26/2024 9:29:43 AM Referred By: REFERRED SELF Confirmed By: Matt Lunsford
--- NOTE | 2024-02-26 11:45 | Hospitalist Progress Note ---
Date of Service February 26, 2024 Assessment & Plan (1) COVID-19: Plan: Patient overall seems to be stable, again checks x-ray was negative but patient met criteria because of his immunodeficiency and high risk of deterioration, will commit to a 5-day course of remdesivir. No need for steroid at this point. His oxygen requirement is 0 with no respiratory compromise. (2) Pancytopenia: Plan: Status post transfusion and dose of G-CSF, WBC count improved to 3.4, hemoglobin improved to 9.4 and otherwise patient is doing better, will reevaluate tomorrow and may consider giving another dose of G-CSF if needed. (3) Acute hyponatremia: Plan: At this point I think this is related to hypovolemia, with serum sodium of 130, urine sodium of less than 10, urine osmolality of 550 and serum osmolality of 274. SIADH is not likely. Continue with IV fluid, I feel that patient might benefit from albumin considering that he has some extremity puffiness with serum albumin of 2.3. This may help stabilizing his intravascular volume even better. (4) Pancreatic cancer: Plan: This appears end-stage, difficult to get his oncologist who practices at [facility] onboard here to clarify plan of care as patient does not seem to be getting quality life. CODE STATUS was discussed with family and patient will be DNR. (5) Non-ST elevation RI (NSTEMI): Plan: Troponin started trending down, this is most likely due to demand ischemia, cardiology consult was ordered but yet to be completed. Plan Continue with permitting 5 days of treatment with remdesivir for the COVID. Continue with empirical cefepime, awaiting nasal swab to come back to see if patient requires any additional MRSA coverage. Monitor CBC daily and determine if patient needs additional G-CSF. Provide IV albumin and monitor intravascular volume. Patient would need another 2 to 3 days of hospitalization at least Admission and Anticipated Discharge Date Admission Date: February 25, 2024 Subjective Patient was seen and examined and case was discussed with care provider at bedside, patient does look much better today than yesterday, he is more awake, he is more plethoric and less icteric appearing. He is more conversant as well. His blood work was reviewed which showed improvement in WBC count after transfusion and G-CSF. Physical Exam Physical Exam: VITALS: Reviewed. WEIGHT/BMI reviewed, patient is underweight/mild malnutrition GEN: Healthy appearing, well-developed, NAD. PSYCH: Unable to evaluate NECK: Supple, with no masses. CV: RRR, patient has a aortic systolic murmur LUNGS: CTAB, no w/r/c. ABD: Soft, NT/ND, NBS, no masses or organomegaly. : N/A SKIN: Warm, well perfused. No skin rashes or abnormal lesions. MSK: No deformities, Normal gait. EXT: No clubbing, cyanosis, or edema. NEURO: Ambulating with no limitations. Normal muscle strength and tone. No focal deficits. Results & Data Results & Data Vital Signs (Past 12 Hours) Vital Signs Temp Pulse Pulse Resp BP Pulse Ox O2 Del Method 02/26/24 10:38 94 H 19 117/68 97 Room Air 02/26/24 07:10 101 H 02/26/24 06:44 104 H 14 100/61 95 Room Air 02/26/24 02:46 110 H 16 116/62 94 Room Air 02/26/24 01:30 36.8 C Laboratory Results Laboratory Results - last 24 hr 02/25/24 02/25/24 02/25/24 13:43 15:10 15:12 WBC 1.17 L RBC 2.67 L Hgb 7.3 L Hct 22.1 L MCV 82.8 MCH 27.3 MCHC 33.0 RDW Std Deviation 45.8 RDW Coeff of Loli 15.2 H Plt Count 170 MPV 10.1 Absolute Nucleated RBC 0.04 Nucleated RBC % (auto) 3.4 Neutrophils % (Manual) 19 Lymphocytes % (Manual) 16 Monocytes % (Manual) 60 Metamyelocytes % (Man) 4 Blast Cells % (Manual) 1 Neutrophils # (Manual) 0.22 L Total Absolute Neuts 0.22 L* Lymphocytes # (Manual) 0.19 L Total Abs Lymphocytes 0.19 L Monocytes # (Manual) 0.70 H Metamyelocytes # (Man) 0.05 H Blast Cells # (Man) 0.01 H Blood Smear Review Pending Schistocytes Occasional PT 14.7 H INR 1.4 H APTT 36 H PTT Ratio 1.3 Sodium 129 L Potassium 3.8 Chloride 98 Carbon Dioxide 23 Anion Gap 8 BUN 23 Creatinine 0.97 Est Cr Clr Drug Dosing 55.7 eGFR 79.41 BUN/Creatinine Ratio 23.7 H Glucose 115 H Osmolality Lactate Calcium 8.0 L Magnesium 1.7 Total Bilirubin 1.2 H AST 67 H ALT 95 H Alkaline Phosphatase 304 H Troponin I High Sens 998.0 H* Total Protein 5.1 L Albumin 2.4 L Globulin 2.7 Albumin/Globulin Ratio 0.9 Lipase 3 L Procalcitonin 1.50 H Urine Color Urine Appearance Urine pH Ur Specific [place] Urine Protein Urine Glucose (UA) Urine Ketones Urine Blood Urine Nitrite Urine Bilirubin Urine Urobilinogen Ur Leukocyte Esterase Urine WBC (Auto) Urine RBC (Auto) U Hyaline Cast (Auto) U Epithel Cells (Auto) Urine Bacteria (Auto) Urine Sperm Urine Osmolality Ur Random Sodium Nasal Screen MRSA (PCR) Adenovirus (PCR) Not Detected B. pertussis DNA (PCR) Not Detected B.parapertussis DNA PCR Not Detected C. pneumoniae DNA (PCR) Not Detected Coronavirus OC43 (PCR) Not Detected Coronavirus HKU1 (PCR) Not Detected Coronavirus 229E (PCR) Not Detected SARS-CoV-2 (PCR) DETECTED A Coronavirus NL63 (PCR) Not Detected Human Metapneumovir PCR Not Detected Influenza Type A (PCR) Not Detected Influenza Type B (PCR) Not Detected M. pneumoniae (PCR) Not Detected Parainfluenza 1 (PCR) Not Detected Parainfluenza 2 (PCR) Not Detected Parainfluenza 3 (PCR) Not Detected Parainfluenza 4 (PCR) Not Detected RSV (PCR) Not Detected Entero/Rhino (PCR) Not Detected Blood Type Cancelled Antibody Screen Cancelled Crossmatch 02/25/24 02/25/24 02/25/24 15:13 16:34 19:02 WBC RBC Hgb Hct MCV MCH MCHC RDW Std Deviation RDW Coeff of Loli Plt Count MPV Absolute Nucleated RBC Nucleated RBC % (auto) Neutrophils % (Manual) Lymphocytes % (Manual) Monocytes % (Manual) Metamyelocytes % (Man) Blast Cells % (Manual) Neutrophils # (Manual) Total Absolute Neuts Lymphocytes # (Manual) Total Abs Lymphocytes Monocytes # (Manual) Metamyelocytes # (Man) Blast Cells # (Man) Blood Smear Review Schistocytes PT INR APTT PTT Ratio Sodium Potassium Chloride Carbon Dioxide Anion Gap BUN Creatinine Est Cr Clr Drug Dosing eGFR BUN/Creatinine Ratio Glucose Osmolality 274 L Lactate 2.2 H* 1.4 Calcium Magnesium Total Bilirubin AST ALT Alkaline Phosphatase Troponin I High Sens Total Protein Albumin Globulin Albumin/Globulin Ratio Lipase Procalcitonin Urine Color Urine Appearance Urine pH Ur Specific [place] Urine Protein Urine Glucose (UA) Urine Ketones Urine Blood Urine Nitrite Urine Bilirubin Urine Urobilinogen Ur Leukocyte Esterase Urine WBC (Auto) Urine RBC (Auto) U Hyaline Cast (Auto) U Epithel Cells (Auto) Urine Bacteria (Auto) Urine Sperm Urine Osmolality Ur Random Sodium Nasal Screen MRSA (PCR) Adenovirus (PCR) B. pertussis DNA (PCR) B.parapertussis DNA PCR C. pneumoniae DNA (PCR) Coronavirus OC43 (PCR) Coronavirus HKU1 (PCR) Coronavirus 229E (PCR) SARS-CoV-2 (PCR) Coronavirus NL63 (PCR) Human Metapneumovir PCR Influenza Type A (PCR) Influenza Type B (PCR) M. pneumoniae (PCR) Parainfluenza 1 (PCR) Parainfluenza 2 (PCR) Parainfluenza 3 (PCR) Parainfluenza 4 (PCR) RSV (PCR) Entero/Rhino (PCR) Blood Type A Positive Antibody Screen NEGATIVE Crossmatch See Detail 02/25/24 02/26/24 02/26/24 21:21 00:24 00:43 WBC RBC Hgb 9.3 L Hct 28.0 L MCV MCH MCHC RDW Std Deviation RDW Coeff of Loli Plt Count MPV Absolute Nucleated RBC Nucleated RBC % (auto) Neutrophils % (Manual) Lymphocytes % (Manual) Monocytes % (Manual) Metamyelocytes % (Man) Blast Cells % (Manual) Neutrophils # (Manual) Total Absolute Neuts Lymphocytes # (Manual) Total Abs Lymphocytes Monocytes # (Manual) Metamyelocytes # (Man) Blast Cells # (Man) Blood Smear Review Schistocytes PT INR APTT PTT Ratio Sodium Potassium Chloride Carbon Dioxide Anion Gap BUN Creatinine Est Cr Clr Drug Dosing eGFR BUN/Creatinine Ratio Glucose Osmolality Lactate Calcium Magnesium Total Bilirubin AST ALT Alkaline Phosphatase Troponin I High Sens Total Protein Albumin Globulin Albumin/Globulin Ratio Lipase Procalcitonin Urine Color Dark Yellow Urine Appearance Clear Urine pH 5.0 Ur Specific [place] 1.030 Urine Protein 1+ H Urine Glucose (UA) Negative Urine Ketones Trace H Urine Blood Negative Urine Nitrite Positive A Urine Bilirubin 1+ H Urine Urobilinogen Negative Ur Leukocyte Esterase 1+ H Urine WBC (Auto) 0-5 Urine RBC (Auto) 0-2 U Hyaline Cast (Auto) 6-10 H U Epithel Cells (Auto) 0-2 Urine Bacteria (Auto) None Seen Urine Sperm Present A Urine Osmolality Ur Random Sodium < 10 Nasal Screen MRSA (PCR) Negative Adenovirus (PCR) B. pertussis DNA (PCR) B.parapertussis DNA PCR C. pneumoniae DNA (PCR) Coronavirus OC43 (PCR) Coronavirus HKU1 (PCR) Coronavirus 229E (PCR) SARS-CoV-2 (PCR) Coronavirus NL63 (PCR) Human Metapneumovir PCR Influenza Type A (PCR) Influenza Type B (PCR) M. pneumoniae (PCR) Parainfluenza 1 (PCR) Parainfluenza 2 (PCR) Parainfluenza 3 (PCR) Parainfluenza 4 (PCR) RSV (PCR) Entero/Rhino (PCR) Blood Type Antibody Screen Crossmatch 02/26/24 02/26/24 02/26/24 05:35 08:32 Unknown WBC 3.41 L RBC 3.33 L Hgb 9.4 L Hct 27.5 L MCV 82.6 MCH 28.2 MCHC 34.2 RDW Std Deviation 44.3 RDW Coeff of Loli 14.8 H Plt Count 172 MPV 9.6 Absolute Nucleated RBC 0.22 H Nucleated RBC % (auto) 6.5 Neutrophils % (Manual) Lymphocytes % (Manual) Monocytes % (Manual) Metamyelocytes % (Man) Blast Cells % (Manual) Neutrophils # (Manual) Total Absolute Neuts Lymphocytes # (Manual) Total Abs Lymphocytes Monocytes # (Manual) Metamyelocytes # (Man) Blast Cells # (Man) Blood Smear Review Schistocytes PT INR APTT PTT Ratio Sodium 130 L Potassium 3.7 Chloride 100 Carbon Dioxide 21 Anion Gap 9 BUN 28 H Creatinine 1.07 Est Cr Clr Drug Dosing 50.5 eGFR 70.59 BUN/Creatinine Ratio 26.2 H Glucose 119 H Osmolality Lactate Calcium 8.0 L Magnesium Total Bilirubin 1.5 H AST 50 H ALT 75 H Alkaline Phosphatase 274 H Troponin I High Sens 714.2 H* D Total Protein 4.9 L Albumin 2.3 L Globulin 2.6 Albumin/Globulin Ratio 0.9 Lipase Procalcitonin Urine Color Urine Appearance Urine pH Ur Specific [place] Urine Protein Urine Glucose (UA) Urine Ketones Urine Blood Urine Nitrite Urine Bilirubin Urine Urobilinogen Ur Leukocyte Esterase Urine WBC (Auto) Urine RBC (Auto) U Hyaline Cast (Auto) U Epithel Cells (Auto) Urine Bacteria (Auto) Urine Sperm Urine Osmolality 550 Ur Random Sodium Nasal Screen MRSA (PCR) Adenovirus (PCR) B. pertussis DNA (PCR) B.parapertussis DNA PCR C. pneumoniae DNA (PCR) Coronavirus OC43 (PCR) Coronavirus HKU1 (PCR) Coronavirus 229E (PCR) SARS-CoV-2 (PCR) Coronavirus NL63 (PCR) Human Metapneumovir PCR Influenza Type A (PCR) Influenza Type B (PCR) M. pneumoniae (PCR) Parainfluenza 1 (PCR) Parainfluenza 2 (PCR) Parainfluenza 3 (PCR) Parainfluenza 4 (PCR) RSV (PCR) Entero/Rhino (PCR) Blood Type Antibody Screen Crossmatch Diagnostic Findings Chest X-Ray 02/25/24 14:38 XR chest 1V portable HISTORY: 78 years-old Male weakness COMPARISON: 02/07/2024 TECHNIQUE: AP view of the chest FINDINGS: Cardiac silhouette is enlarged. Median sternotomy with mediastinal surgical clips. Right IJ [id number] catheter redemonstrated. No pneumothorax or large pleural effusion. Chronic interstitial coarsening. Partially imaged right upper quadrant biliary stent. Degenerative changes of the shoulders and spine. IMPRESSION: 1. Cardiomegaly without overt pulmonary edema. 2. Chronic interstitial coarsening. ACT 112: Negative or not required by law. The above report was generated using voice recognition software. It may contain grammatical, syntax or spelling errors. Electronically signed by: Manuel Calderon M.D. 02/25/2024 2:[address] 02/25/24 15:05 EXAMINATION: Head CT without CLINICAL HISTORY: Fall, hit head, on Plavix PRIORS: None TECHNIQUE: Contiguous axial images were obtained through the head without the use of intravenous contrast. Sagittal and coronal reformations are supplied. FINDINGS: Age appropriate parenchymal volume is noted. Scattered periventricular lucencies present in the deep white matter representing small vessel occlusive disease. Pretty-white differentiation is preserved. No edema or midline shift. No intra-axial or extra-axial hemorrhage. Ventricles are normal in size and configuration. Brainstem and cerebellum have a normal appearance. Calvarium unremarkable. Paranasal sinuses and mastoid air cells are well-pneumatized. Globes are intact. No retrobulbar abnormality. IMPRESSION: No CT evidence of an acute intracranial abnormality. Electronically signed by Yanci Hernández 02-25-2024 4:27 PM
--- NOTE | 2024-02-26 13:09 | Cardiology Consultation ---
Date of Consultation February 26, 2024 Assessment & Plan (1) Elevated troponin: -No cardiac symptoms by history. -No acute EKG changes. -Suspect this is secondary to his COVID infection. (2) CAD (coronary artery disease): -s/p CABG x 4, August 1999. -s/p LM, LAD, and RCA stents, August and September 2009. -Has been quiescent on medical management. -Resume usual outpatient medications when able. (3) Aortic stenosis: -Mild to moderate in degree on echocardiogram last month. -Continue yearly surveillance echocardiograms. (4) Pancreatic cancer metastasized to liver: -Management per oncology and hospitalist team. History of Present Illness Attending Physician: Kyle Rodriguez MD History of Present Illness Mr. Gutierrez is a 78-year-old male admitted yesterday with numerous somatic complaints, a hemoglobin of 7.3, and an active COVID infection. This consultation was ordered to assist in his cardiac management as the high- sensitivity troponin was elevated. Of note, the patient is well-known to me from the outpatient setting. The patient was in his usual state of health until the morning of presentation. The patient was complaining of profound weakness and fell out of his chair. He has had poor oral intake of fleets. On presentation to the emergency room, the patient's was nearly obtunded and found to have a hemoglobin of 7.3. He was also COVID-positive. Hospitalization was recommended. The patient does carry history of coronary artery disease. He underwent a four- vessel bypass in August 1999. He also had stents placed in the left main and LAD in August 2009. A staged procedure resulted stents within the RCA and LAD the following month. The patient does have chronic stable angina pectoris. However, since starting ranolazine, the patient does not experience exertional chest discomfort nor limiting dyspnea. He was diagnosed with metastatic pancreatic carcinoma and is currently undergoing chemotherapy. He also carries a history of mild to moderate aortic stenosis and has been following yearly surveillance echocardiograms. Most recent study was performed last month which noted mild to moderate aortic stenosis. This was unchanged from study performed in August 2023. Currently, patient is resting comfortably in bed without complaints. Past medical and surgical history 1. Coronary artery disease 2. CABG x 4Jun1999 3. Left main DESJun2009 4. LAD ARCADIO x and September 2009 5. RCA DESJuly 2009 6. Chronic stable angina pectoralis 7. Mild to moderate aortic stenosis 8. Hypertension 9. Mild LVH 10. Hypercholesterolemia 11. Diabetes mellitus 12. GERD 13. Nephrolithiasis 14. BPH 15. Metastatic pancreatic carcinomaNov2023 16. Left intraocular lens implant 17. Tonsillectomy Social history , lives with his significant other Quit tobacco use at the age of 40 Occasional alcohol Family history Noncontributory Review of systems A 10 point review of system was undertaken and negative except for that described above. Allergies Allergy/AdvReac Type Severity Reaction Status Date / Time Iodinated Contrast Media Allergy Intermediate Rash Verified 02/03/24 12:55 levofloxacin Allergy Intermediate RASH Verified 02/03/24 12:55 lisinopril AdvReac Mild Cough Verified 02/03/24 12:56 Home Medications Medication Instructions Recorded Confirmed Type multivitamin (Multiple Vitamins 1 tab PO QPM 12/02/18 02/25/24 History tablet) atorvastatin 80 mg tablet 80 mg PO QPM 01/06/19 02/25/24 History cholecalciferol (vitamin D3) 50 2,000 units PO QAM 01/06/19 02/25/24 History mcg (2,000 unit) tablet clopidogrel 75 mg tablet 75 mg PO QAM 01/06/19 02/25/24 History ezetimibe 10 mg tablet 10 mg PO HS 01/06/19 02/25/24 History metformin 500 mg tablet 500 mg PO .COMPLEX 01/06/19 02/25/24 History nitroglycerin 0.4 mg sublingual 0.4 mg sublingual Q5M PRN Chest 01/06/19 02/25/24 History tablet Pain #1 tab ranolazine 1,000 mg 1,000 mg PO Q12H #180 tabs 01/06/19 02/25/24 History tablet,extended release,12 hr triamcinolone acetonide 0.1 % 1 appln topical BID PRN Rash 01/06/19 02/25/24 History topical cream tamsulosin 0.4 mg capsule 0.4 mg PO BID #180 caps 12/03/19 02/25/24 Rx fluticasone propionate 50 1 spray intranasal DAILY 03/16/20 02/25/24 History mcg/actuation nasal spray,suspension albuterol sulfate 90 mcg/actuation 2 inh inhalation Q6H PRN SOB 09/17/22 02/25/24 History breath activated powder inhaler atenolol 50 mg tablet 50 mg PO QAM 03/14/23 02/25/24 History pantoprazole 20 mg tablet,delayed 20 mg PO QAM 01/30/24 02/25/24 History release oxycodone-acetaminophen 5 mg-325 1 tab PO Q6H PRN pain #14 tabs 02/03/24 02/25/24 Rx mg tablet (Percocet) L.acidoph-L.rhamn-B.bifidum-B.long 1 tab PO DAILYBB 02/07/24 02/26/24 History 12.9 mg (2 billion cell) tablet, DR aspirin 81 mg tablet,delayed 81 mg PO QPM 02/07/24 02/25/24 History release cyanocobalamin (vitamin B-12) 1,000 mcg IM .EVERY 30 DAYS 02/07/24 02/25/24 History 1,000 mcg/mL injection solution docusate sodium 100 mg capsule 100 mg PO BID 02/07/24 02/26/24 History iron,carbonyl 65 mg-vitamin C 125 1 tab PO Q OTHER DAY 02/07/24 02/25/24 History mg tablet,delayed release (Vitron-C) isosorbide mononitrate 60 mg 120 mg PO QAM 02/07/24 02/25/24 History tablet,extended release 24 hr lidocaine-prilocaine 2.5 %-2.5 % 1 applic topical UD 02/07/24 02/25/24 History topical cream ondansetron HCl 8 mg tablet 8 mg PO Q8 PRN Nausea 02/07/24 02/25/24 History polyethylene glycol 3350 17 17 g PO DAILY 02/07/24 02/26/24 History gram/dose oral powder (Miralax) prochlorperazine maleate 10 mg 10 mg PO Q6 PRN Nausea 02/07/24 02/25/24 History tablet magnesium oxide 400 mg (241.3 mg 400 mg PO BID #30 tabs 02/13/24 02/25/24 Rx magnesium) tablet nystatin 100,000 unit/mL oral 5 ml PO QID #473 mL 02/22/24 02/25/24 Rx suspension nystatin 100,000 unit/mL oral 5 ml buccal QID #473 mL 02/22/24 02/25/24 Rx suspension Patient History Medical History Pancreatic cancer stage 4; now with mets Hx of renal calculi Dyspnea reason for inhaler, uses every morning Angina pectoris chronic stable class I per cardio; follows closely with [facility] Cardio Non Q wave myocardial infarction 2002; 'questionable per pt' CAD (coronary artery disease) CABG August 1999, LM and LAD stents August 2009, RCA and LAD stents September 2009 Aortic stenosis follows with Dr. Lunsford; mild-mod per 08/27/23 ECHO BPH (benign prostatic hyperplasia) GERD (gastroesophageal reflux disease) Hyperlipidemia Hypertension Type 2 diabetes mellitus Surgical History Hx of CABG 1999 > 4 vessels > [facility] > follows with Dr. Lunsford History of insertion of pancreatic stent (01/16/24) [facility] Hx of biopsy (12/2023) pancreas and liver History of left cataract surgery History of esophagogastroduodenoscopy (EGD) History of colonoscopy History of tooth extraction History of tonsillectomy H/O lithotripsy Hx of cardiac cath 2009 > 5 stents - [facility] (LM and LAD stents August 2009, RCA and LAD stents September 2009) Family History Father Myocardial infarction Other Diabetes Heart disease Social History Smoking Status: Unknown if ever smoked Tobacco Type: Cigarettes Second Hand Exposure: No; Do You Dip or Chew Tobacco: No; Hx Alcohol Use: No Hx Substance Use: No Preferred Language: Kyrgyz Communication Ability: Effective Directory Carrier Required: No Beliefs That Will Affect Care: None marital status: Current Living Situation: Significant Other Feels Safe at Home: Yes Safety Concerns: Feels Safe At This Time Assistive Devices: Walker Physical Exam Physical Exam: In general this is a well-developed well-nourished white male in no acute distress. HEENT exam is negative. Neck reveals mildly delayed carotid upstrokes with a transmitted murmur bilaterally. No JVD. There is no thyromegaly. Cardiovascular exam reveals a regular rhythm with a normal S1. A 2/6 crescendo decrescendo systolic murmur is heard loudest at the base. S2 is audible at the apex. Lungs are clear without rales, rhonchi, or wheezes. Abdomen is soft without bruits. Extremities reveal intact posterior tibial and right radial artery pulses. There is no peripheral edema. Results & Data Vital Signs (Past 12 Hours) Vital Signs Temp Pulse Pulse Resp BP Pulse Ox O2 Del Method 02/26/24 10:38 94 H 19 117/68 97 Room Air 02/26/24 07:10 101 H 02/26/24 06:44 104 H 14 100/61 95 Room Air 02/26/24 02:46 110 H 16 116/62 94 Room Air 02/26/24 01:30 36.8 C Laboratory Results CBC notes hemoglobin of 9.4, hematocrit 27.5, white count 3.4, and a platelet count of 1 72,000. Electrolytes noted sodium of 130, potassium 3.7, chloride 100, bicarb 21, BUN 20, creatinine 1.07, and a glucose of 119. High-sensitivity troponin initially 998, follow-up value was 714. Diagnostic Findings EKG notes sinus rhythm with an old inferior RI and a lateral ST and T wave abnormality. PG Care Time/CCT Total # of Minutes Spent Total Time Spent with Patient: Total time spent is greater than 50% in coordination of care (as documented) at patient's floor/unit and/or counseling patient: Coding Level of Care Code 53001 INT INP/OBS CARE 3/75MIN Diagnoses Elevated troponin R79.89 CAD (coronary artery disease) I25.10 Aortic stenosis I35.0 Pancreatic cancer metastasized to liver C25.9; C78.7
--- NOTE | 2024-02-26 13:22 | Infectious Disease Consult ---
Date of Service February 26, 2024 Telehealth Information I performed this visit using a real-time telehealth connection between my location and the patients location ([facility] [address]). After connecting through interactive tele-video, patient was identified by name and date of and/or wristband check.Patient (or authorized healthcare order entry representative) was informed that this was a telemedicine visit and it was being conducted confidentially over secure lines. My office door was closed and no one else was present in the room with me.Patient (or authorized healthcare order entry representative) provided consent to proceed with the visit, expressed an understanding of privacy and security of the telemedicine visit, and gave permission to have a hospital order entry representative in the room in order to assist with the visit and to conduct portions of the visit, as needed. I informed the patient (or authorized healthcare order entry representative) that I reviewed their record and presented the opportunity for them to ask any questions regarding the visit today. The patient agreed to participate. Assessment & Plan (1) Rapidly progressive weakness: (2) COVID-19 virus infection: (3) Oropharyngeal candidiasis: (4) Elevated troponin: (5) Pancreatic cancer metastasized to liver: Plan - Since the patient is not hypoxic, please continue Remdesivir for one more day and stop (total of 3 days). Can continue Dexamethasone for 10 days total. - Continue Cefepime for now. We wouldnt recommend treatment for more than 5 days as there is no evidence of bacterial pneumonia clinically or on CXR. On discharge, can step down to Augmentin 875/125 BID to complete the course of treatment. - Please start oral fluconazole 200 mg once daily for a total of 14 days to treat oropharyngeal candidiasis. - Please discuss the goals of care with the family as the quality of life is very poor despite aggressive measures. History of Present Illness History of Present Illness Mr. Gutierrez is a 78-year-old man with medical history of pancreatic cancer metastatic to the liver (and currently on chemo) who was admitted to [facility] on 02/24 because of progressive generalized weakness. He just got discharged from the hospital on 02/12 after 1 week hospital stay for elevated LFTs and abdominal pain, with one episode of fever in the hospital. He was treated briefly with antibiotics then while in the hospital and then stopped as per our recs as there was no infectious source identified. Now, he is brought to the hospital because of progressive weakness with vitals showing borderline low BP and tachycardia. Initial workup showed leukopenia/neutropenia and anemia, elevated lactic acid, elevated LFTs with cholestatic pattern and significantly elevated troponin. His RVP was pos for COVID. CXR was not impressive. ID team was consulted for further recommendations and to help guide management. Allergies Allergy/AdvReac Type Severity Reaction Status Date / Time Iodinated Contrast Media Allergy Intermediate Rash Verified 02/03/24 12:55 levofloxacin Allergy Intermediate RASH Verified 02/03/24 12:55 lisinopril AdvReac Mild Cough Verified 02/03/24 12:56 Home Medications Medication Instructions Recorded Confirmed Type multivitamin (Multiple Vitamins 1 tab PO QPM 12/02/18 02/25/24 History tablet) atorvastatin 80 mg tablet 80 mg PO QPM 01/06/19 02/25/24 History cholecalciferol (vitamin D3) 50 2,000 units PO QAM 01/06/19 02/25/24 History mcg (2,000 unit) tablet clopidogrel 75 mg tablet 75 mg PO QAM 01/06/19 02/25/24 History ezetimibe 10 mg tablet 10 mg PO HS 01/06/19 02/25/24 History metformin 500 mg tablet 500 mg PO .COMPLEX 01/06/19 02/25/24 History nitroglycerin 0.4 mg sublingual 0.4 mg sublingual Q5M PRN Chest 01/06/19 02/25/24 History tablet Pain #1 tab ranolazine 1,000 mg 1,000 mg PO Q12H #180 tabs 01/06/19 02/25/24 History tablet,extended release,12 hr triamcinolone acetonide 0.1 % 1 appln topical BID PRN Rash 01/06/19 02/25/24 History topical cream tamsulosin 0.4 mg capsule 0.4 mg PO BID #180 caps 12/03/19 02/25/24 Rx fluticasone propionate 50 1 spray intranasal DAILY 03/16/20 02/25/24 History mcg/actuation nasal spray,suspension albuterol sulfate 90 mcg/actuation 2 inh inhalation Q6H PRN SOB 09/17/22 02/25/24 History breath activated powder inhaler atenolol 50 mg tablet 50 mg PO QAM 03/14/23 02/25/24 History pantoprazole 20 mg tablet,delayed 20 mg PO QAM 01/30/24 02/25/24 History release oxycodone-acetaminophen 5 mg-325 1 tab PO Q6H PRN pain #14 tabs 02/03/24 02/25/24 Rx mg tablet (Percocet) L.acidoph-L.rhamn-B.bifidum-B.long 1 tab PO DAILYBB 02/07/24 02/26/24 History 12.9 mg (2 billion cell) tablet, DR aspirin 81 mg tablet,delayed 81 mg PO QPM 02/07/24 02/25/24 History release cyanocobalamin (vitamin B-12) 1,000 mcg IM .EVERY 30 DAYS 02/07/24 02/25/24 History 1,000 mcg/mL injection solution docusate sodium 100 mg capsule 100 mg PO BID 02/07/24 02/26/24 History iron,carbonyl 65 mg-vitamin C 125 1 tab PO Q OTHER DAY 02/07/24 02/25/24 History mg tablet,delayed release (Vitron-C) isosorbide mononitrate 60 mg 120 mg PO QAM 02/07/24 02/25/24 History tablet,extended release 24 hr lidocaine-prilocaine 2.5 %-2.5 % 1 applic topical UD 02/07/24 02/25/24 History topical cream ondansetron HCl 8 mg tablet 8 mg PO Q8 PRN Nausea 02/07/24 02/25/24 History polyethylene glycol 3350 17 17 g PO DAILY 02/07/24 02/26/24 History gram/dose oral powder (Miralax) prochlorperazine maleate 10 mg 10 mg PO Q6 PRN Nausea 02/07/24 02/25/24 History tablet magnesium oxide 400 mg (241.3 mg 400 mg PO BID #30 tabs 02/13/24 02/25/24 Rx magnesium) tablet nystatin 100,000 unit/mL oral 5 ml PO QID #473 mL 02/22/24 02/25/24 Rx suspension nystatin 100,000 unit/mL oral 5 ml buccal QID #473 mL 02/22/24 02/25/24 Rx suspension Patient History Medical History Pancreatic cancer stage 4; now with mets Hx of renal calculi Dyspnea reason for inhaler, uses every morning Angina pectoris chronic stable class I per cardio; follows closely with [facility] Cardio Non Q wave myocardial infarction 2002; 'questionable per pt' CAD (coronary artery disease) CABG August 1999, LM and LAD stents August 2009, RCA and LAD stents September 2009 Aortic stenosis follows with Dr. Lunsford; mild-mod per 08/27/23 ECHO BPH (benign prostatic hyperplasia) GERD (gastroesophageal reflux disease) Hyperlipidemia Hypertension Type 2 diabetes mellitus Surgical History Hx of CABG 1999 > 4 vessels > [facility] > follows with Dr. Lunsford History of insertion of pancreatic stent (01/16/24) [facility] Hx of biopsy (12/2023) pancreas and liver History of left cataract surgery History of esophagogastroduodenoscopy (EGD) History of colonoscopy History of tooth extraction History of tonsillectomy H/O lithotripsy Hx of cardiac cath 2009 > 5 stents - [facility] (LM and LAD stents August 2009, RCA and LAD stents September 2009) Family History Father Myocardial infarction Other Diabetes Heart disease Social History Smoking Status: Unknown if ever smoked Tobacco Type: Cigarettes Second Hand Exposure: No; Do You Dip or Chew Tobacco: No; Hx Alcohol Use: No Hx Substance Use: No Preferred Language: Wallisian Communication Ability: Effective Seismic Observer Required: No Beliefs That Will Affect Care: None marital status: Current Living Situation: Significant Other Feels Safe at Home: Yes Safety Concerns: Feels Safe At This Time Assistive Devices: Walker Review of Systems Neg except for what was mentioned in H&P. Physical Exam Couldnt be performed as the visit was conducted via telemed. Results & Data Vital Signs (Past 12 Hours) Vital Signs Temp Pulse Pulse Resp BP Pulse Ox O2 Del Method 02/26/24 10:38 94 H 19 117/68 97 Room Air 02/26/24 07:10 101 H 02/26/24 06:44 104 H 14 100/61 95 Room Air 02/26/24 02:46 110 H 16 116/62 94 Room Air 02/26/24 01:30 36.8 C Laboratory Results Microbiology: 02/24: 2 sets of blood Cx NTD Diagnostic Findings CXR on 02/24: 1. Cardiomegaly without overt pulmonary edema. 2. Chronic interstitial coarsening.
[2024-02-26] MEDS: NYSTATIN SUSP 500,000 U/5 ML UDC PO SCH (13:27)
[2024-02-26] MEDS: ALBUMIN 25% 25 GM/100 ML VIAL IV SCH ×2 (13:31→21:36)
[2024-02-26] MEDS: REMDESIVIR 100 MG in SODIUM CHLORIDE 0.9% 230 ML IV SCH (20:34)
[2024-02-27 08:39] LABS: Albumin Globulin Ratio 1.3 (0.9-2); Albumin Level 2.9 gm/dl (3.4-5.0); BUN Creatinine Ratio 31.7 (10-20); Bilirubin,Total 1.3 mg/dl (0.2-1.0); Calcium 8.1 mg/dl (8.6-10.3); Creatinine Clr Calc Pharmacy 65.9 ml/min; Globulin 2.3 gm/dl (2.5-4.0); Potassium 3.6 mmol/L (3.5-5.1); Total Protein 5.2 gm/dl (6.0-8.3)
[2024-02-27] MEDS: FLUCONAZOLE SUSP 200 MG/5 ML UDP PO SCH (08:51)
[2024-02-27 08:53] LABS: Hematocrit (blood only) 30.2 % (42.0-52.0); Hemoglobin 10.1 g/dl (14.0-18.0); Mean Corpuscular Hemoglobin 27.7 pg (25.0-34.0); Mean Corpuscular Hgb Conc 33.4 g/dL (32.0-36.0); Mean Corpuscular Volume 82.7 fL (80.0-100.0); Mean Platelet Volume 9.6 fL (9.4-12.4); Nucleated RBC # (auto) 0.13 K/uL (0.00-0.12); Nucleated RBC % (auto) 0.9 %; Platelet Count 222 K/uL (130-400); RDW Coefficient of Variation 14.9 % (11.5-14.5); RDW Standard Deviation 45.3 fL (36.4-46.3); Red Blood Count 3.65 M/uL (4.70-6.10); White Blood Count 15.28 K/ul (4.8-10.8)
[2024-02-27 08:56] LABS: Basophils # (auto) 0.12 K/uL (0.00-0.20); Basophils % (auto) 0.8 %; Echinocytes 3+; Eosinophils # (auto) 0.01 K/uL (0.00-0.50); Eosinophils % (auto) 0.1 %; Immature Granulocytes # (auto) 1.16 K/uL (0.01-0.20); Immature Granulocytes % (auto) 7.6 %; Lymphocytes # (auto) 0.75 K/uL (1.20-3.40); Lymphocytes % (auto) 4.9 %; Neutrophils # (auto) 10.64 K/uL (1.40-6.50); Neutrophils % (auto) 69.6 %; Polychromasia 1+; Toxic Granulation 1+
--- OUTSIDE RECORDS SUMMARY | 2024-02-27 09:28 | External Medical Summary | Summary of Care ---
Author Name Unknown Organization [facility] Address [address] [place] [address] Phone [phone] Care Team Providers Care Director Of Public Relations Name Role Phone Pedro Luis Bowens DO Primary Care Provider [phone] Reason for Visit * Reason Onset Date Comments Advice 02/25/2024 Follow up 2023 Encounter Details Date Type Department Care Team (Late st Contact Info) Description 02/25/2024 Telephone Hematology/Oncology [facility] [address] [place] [address] Marimar Del Castillo MD [address] [place] [address] Advice (Follow up 02/24/2024) Allergies Active Allergy Reactions Criticality Noted Date Comments Iodinated Contrast Media Rash 08/29/2009 Pt got a rash after his cath on 08/23/09 Levofloxacin 11/03/2009 Nausea jittery Lisinopril 10/01/2013 Cough Rash documented as of this encounter (statuses as of 02/25/2024) Medications ASPIRIN 81 MG PO CHEW Take 1 Tablet by mouth at bedtime. 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, without long-term current use of insulin, unspecified laterality, unspecified retinopathy severity ([facility]) Use to test blood glucose 4 [...] Information Patient taking differently: HS, Reported on 02/17/2024 Ranolazine ER 1000 MG Oral Tablet Extended Release 12 HourIndications :Coronary artery disease of port lions artery of port lions heart with stable angina pectoris (HCC) TAKE ONE TABLET BY MOUTH TWICE A DAY 200 Tablet 3 4 4:58 PM EST 05/02/19 24 025 Active Isosorbide Mononitrate ER 60 MG Oral Tablet Extended Release 24 Hour (Imdur)Indicati ons:Old myocardial infarction TAKE ONE TABLET BY MOUTH TWICE A DAY 200 Tablet 2 4 7:22 AM EST 08/07/19 24 025 Active Additional Information Patient taking differently: Taking 2 tablets in the morning, Reported on 02/17/2024 Tamsulosin HCl 0.4 MG Oral Capsule (Flomax) TAKE ONE CAPSULE BY MOUTH TWICE A DAY 200 Capsule 2 4 7:22 AM EST 08/07/19 24 025 Active metFORMIN HCl 500 [...] 9:56 AM EDT 09/20/19 24 025 Active Pantoprazole Sodium 20 MG Oral Tablet Delayed Release (Protonix)Indic ations:Gastroes ophageal reflux disease without esophagitis Take 1 Tablet by mouth in the morning. 100 Tablet 3 4 10:27 AM EST 11/08/19 24 Active Clopidogrel Bisulfate 75 MG Oral Tablet (pLAVix)Indicat ions:Old myocardial infarction TAKE ONE TABLET BY MOUTH EVERY DAY 100 Tablet 3 4 7:22 AM EST 11/12/19 24 025 Active Cyanocobalamin 1000 MCG/ML Injection Solution (Cyanocobalamin )Indications:Vi tamin B12 deficiency INJECT 1ML INTRAMUSCULARLY EVERY 30 DAYS 3 mL 1 11/29/19 24 Active Additional Information Patient taking differently: INJECT 1ML INTRAMUSCULARLY EVERY other 30 DAYS, Reported on 02/17/2024 oxyCODONE-Aceta minophen 5-325 MG Oral Tablet (Percocet)Indic ations:Kidney stone on right side Take 1 Tablet by mouth every 8 hours as needed for Pain, Severe. 60 Tablet 01/03/20 24 Active Fluticasone Propionate 50 MCG/ACT [...] ACCESSING. 30 g 1 02/04/20 24 Active OneTouch Ultra Test In Vitro Strip (Glucose Blood)Indicatio ns:Type 2 diabetes mellitus with hemoglobin A1c goal of less than 7.0% (HCC),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),Metastasi s from pancreatic cancer (HCC) Tests four times daily 400 Strip 3 02/07/20 24 Active Acetaminophen 500 MG Oral Tablet (Tylenol) Take 2 Tablets by mouth every 6 hours as needed for Pain, Breakthrough (up to 3000 mg daily (6 tablets)). Active Magnesium Oxide 400 MG Oral Tablet Take 1 Tablet by mouth in the morning and 1 Tablet before bedtime. 02/13/20 24 Active Albuterol Sulfate HFA 108 (90 Base) MCG/ACT Inhalation Aerosol Solution Inhale 2 puffs by mouth every 6 hours as needed for shortness of breath. 20.1 g 2 4 10:57 AM EST 10/28/19 24 Active Magic Swizzle (Lidocaine-Kimberlee dryl-Maalox) oral solutionIndicat ions:Oral pain Swish and spit 15 mL in the morning and 15 mL at noon and 15 mL before bedtime. 300 mL 02/18/20 24 Active glipiZIDE ER 2.5 MG Oral Tablet Extended Release 24 Hour (glipiZIDE XL)Indications: Type 2 diabetes mellitus with hemoglobin A1c goal of less than 7.0% ([facility]) Take 1 Tablet by mouth in the morning. Before breakfast. 90 Tablet 2 02/18/20 24 Active Lidocaine Viscous HCl 2 % Mouth/Throat Solution Swish and spit 15 mL as needed for Pain, Mild (mouth discomfort). 200 mL 3 02/19/20 24 Active documented as of this encounter (statuses as of 02/25/2024) Active Problems Problem Noted Date Diagnosed Date Dehydration 02/24/2024 Secondary malignant neoplasm of liver and intrahepatic bile duct 02/17/2024 Malignant neoplasm of head of pancreas Metastasis from pancreatic cancer 01/28/2024 Encounter for antineoplastic chemotherapy 2023 Atherosclerosis of port lions ar teries of extremities with rest pain, bilateral legs 11/08/2023 Pulmonary hypertension, unspecified 07/17/2022 B12 deficiency 03/22/2022 Moderate aortic stenosis 11/28/2021 Occupational exposure to noise 09/27/2020 Coronary artery disease of n ative artery of port lions heart with stable angina pectoris 09/17/2019 Gastroesophageal [...] as of this encounter (statuses as of 02/25/2024) Resolved Problems Problem Noted Date Diagnosed Date [...] Per HTN Protocol #27. [employer] Other*[id number] 09/23/2009 05/01/2016 Overview (09/23/2009): Study Titile: Genomic Markers for Patients with Cardiovascular Disease Project #[id number] PI: Estela Sandoval MD Please call [phone] with study related questions Dyslipidemia, goal LDL below 70 08/30/2009 02/26/2013 HTN, goal below 130/80 08/30/200911/14 Overview: Per HTN Protocol #27. History of drug allergy 08/29/200906/23 Dyslipidemia, goal LDL below 70 08/23/2009 02/26/2013 ACEI/ARB contraindicated 09/2013 documented as of this encounter (statuses as of 02/25/2024) Immunizations Name Administration Dates Next Due COVID-19 mRNA, LNP-s, No Pre serve, 2-Dose Series (Moderna) 05/27/2020,04/29/2020 COVID-19 mRNA, LNP-s, No Pre serve, 2-Dose Series (Pfizer) 07/17/2021,01/26/2021 COVID-19, MRNA-LNP, PF, 30 M CG/0.3 mL, 12 YRS AND ABOVE, IM (PFIZER-Comirnaty) 12/26/2023 COVID-19, MRNA-LNP, PF, 50 M CG/0.5 mL, 12 YRS AND ABOVE, IM (MODERNA-Spikevax) 01/23/2023 Covid-19, Mrna, Lnp-s, Pf, B ivalent, 50 Mcg, IM, 12 yrs and above (Moderna) 03/01/2022 H1N1 2009 Influenza, IM 02/16/2009 Pneumococcal Conjugate Vacc, 13 Valent (Prevnar) 09/02/2015 Pneumococcal Polysaccharide PPV23 (Pneumovax) 09/16/2009 RSV Vac., Recomb, Adjuvant, PF,0.5 Ml (Arexvy) 12/26/2023 Seasonal Influenza Vac., MDV , IM, 0.5 mL (Fluzone) 11/25/2014,12/10/2013,12/18/2012,11/24,12/01/2010,12/28/2009 12/10/2014 Seasonal Influenza, High Dos e, Trivalent, PF, IM (Fluzone HD) 12/26/2023,01/07/2019 Seasonal Influenza, PF, 6 M & above, [...] encounter Miscellaneous Notes * Telephone Encounter - Ora Greenwood LPN - 02/25/2024 8:43 AM EST Patient returned phone call, patient states he is "feeling a little better" this morning but still "shaky". He states he continues to have a "fluctuating temperatures", between 98.6 deg F to 99.6 degF. He states he still feeling tired and is agreeable to having the blood transfusion at [facility] tomorrow at 9:30 am. He states he ate dinner last night, [id number] and had a jello and a pudding cup later in the evening. He also reports he has increased his water intake. He states he is "still" experiencing diarrhea, but states he is "only using one imodium" with the first movement. Advised patient he can take another dose as directed. Patient verbalized understanding. Patient reports one loose stool "earlier this morning". Advised patient to contact our office with any worsening symptoms or if his temperature reaches 100.5 deg F or higher. Patient verbalized understanding. Provided patient with directions to the [facility] at [facility], he repeated directions back and verbalized understanding. Patient reports he will have his type and cross done this afternoon when he goes out duglas appointment. Patient verbalized understanding of appt time. Faxed order to [facility]/ blood bank/ and Central Scheduling. * Telephone Encounter - Ora Greenwood LPN - 02/25/2024 8:09 AM EST Attempted to contact patient's daughter, Ebony, no answer, unable to leave a voicemail due to "mail box full". My G sent * Telephone Encounter - Ora Greenwood LPN - 02/25/2024 7:58 AM EST Patient to receive 1 unit prbc. Called [facility] blood bank. Spoke with Jonathan. Spoke with Sabina in [facility]. Called [facility] central scheduling. Patient scheduled for 02/26/2024 at 09:30 am. Left message for patient. * Telephone Encounter - Ora Greenwood LPN - 02/25/2024 7:55 AM EST Left message for patient to return call; return phone number provided. documented in this encounter Plan of Treatment Upcoming Encounters Date Type Department Care Team (Latest Contact Info) Description 4 1:30 PM EST Telemedicine Family Practice 65 [facility] [address] [place] [phone] College, Pharmacist [address] [place] [address] Arrived 4 4:20 PM EST Office Visit Family Practice [address] [place] [phone] Pedro Luis Bowens DO [address] [place] [address] 4 11:00 AM EST Scheduled Telephone Family Practice [address] [place] [phone] Consuelo Howard RN [address] [place] [phone] 4 12:30 PM EST Laboratory Laboratory [facility] [address] [place] [phone] [place], [address] [facility] [place], [place] [address] 4 1:00 PM EST Office Visit Hematology/Onco logy [facility] [place] [address] [place] [phone] Marimar Del Csatillo MD [address] [place] [address] 4 1:30 PM EST Hem/Onc Treatment Hematology/Onco logy [facility] [address] [place], [place] [phone] Marycarmen, Chair 10 Hem Onc Scenery [address] [place] [address] 4 9:20 AM EST Office Visit Family Practice 65 [facility] [address] [place] [address] Pedro Luis Bowens, DO [address] [place] [address] 4 8:40 AM EST Office Visit Family Practice 65 [facility] [address] [place] [address] Pedro Luis Bowens, DO [address] [place] [address] 5 8:00 AM EST Hospital Encounter ENDO [facility], Endoscopy Room [facility] [address] [place] [address] Jose E Bai MD [address] [place] [address] 5 8:00 AM EST - 5 8:45 AM EST Surgery ENDO [facility], Endoscopy Room [facility] [address] [place] [address] Jose E Bai MD [address] [place] [address] ENDOSCOPIC RETROGRADE CHOLANGIOPANCREATOGRAPHY (ERCP) DIAGNOSTIC Scheduled Orders Name Type Priority Associated Diagnoses Orde r Schedule TYPE AND SCREEN Lab Routine Anemia Expected: 02/25/2024 (Approximate), Expires: 03/26/2025 Scheduled Procedures Name Priority Associated Diagnoses Date/Ti me ENDOSCOPIC RETROGRADE CHOLANGIOPANCREATOGRAPHY (ERCP) DIAGNOSTIC Pancreatic mass Liver mass 04/21/2024 8:00 AM EST ENDOSCOPIC RETROGRADE CHOLANGIOPANCREATOGRAPHY (ERCP) W/STENT REMOVAL AND EXCHANGE; INC DILATION, GUIDE WIRE AND SPHINCTEROTOMY Pancreatic mass Liver mass 04/21/2024 8:00 AM EST Health Maintenance Due Date Last Done Comments Adult Wellness Visit 12/15/2021 12/15/2020 Depression Screening 03/21/2024 03/21/2023 HbA1c 05/10/2024 11/08/2023, 06/23, 03/21/2023, Additional history exists Albumin/Creatinine Ratio 07/11/2024 024, 07/17/2022, 07/05/2021, Additional history exists Diabetic Foot Exam 07/11/2024 07/12/2023, 0 07/17/2022, 07/11/2021, Additional history exists Diabetic Eye Exam 07/21/2024 07/22/2023, , 07/12/2022, Additional history exists GFR 02/23/2025 02/24/2024, 01/24, 02/04/2024, Additional history exists DTap/Tdap Vaccines (3 - Td or Tdap) 11/07/2033 11/08/2023, 10/01/2013, 09/17/2008 Pneumococcal Vaccine: 65+ Years Completed 09/02/2015, 09/16/2009 Zoster Vaccines Completed 09/17/2019, 02/23, 12/20/2011 COVID-19 Vaccine Discontinued 12/26/2023, 03/2022, 03/01/2022, Additional history exists Influenza Vaccine (FLU shot) Completed 12/26/2023, 11/29/2022, 11/28/2021, Additional history exists HPV (Gardasil) Vaccine Aged Out No lo nger eligible based on patient's age to complete this topic Hepatitis B Vaccine Aged Out No longe r eligible based on patient's age to complete this topic MENINGOCOCCAL (MENACTRA/MENVEO) Aged Out No longer eligible based on patient's age to complete this topic documented as of this encounter Medical Devices Implanted Type Area Cloth Shrinking Tester Device Identifier Shelf Expiration Date Model / Serial / Lot Stent Bili Duodenal [id number] - [id number] Implanted:Qty: 1 on 01/16/2024 by Jos eE Bai MD at ENDOSCOPY [facility] N/A: [employer] 12/02/2025 [id number] / / [id number] documented as of this encounter Visit Diagnoses Diagnosis Anemia- Primary Anemia, unspecified 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) Malignant neoplasm of head of pancreas Pancreatic mass Unspecified disease of pancreas Liver [...] Power of Attor ila? No Care Teams Director Of Public Relations Relationship Specialty Start Date End Date Pedro Luis Bowens DO [address] [place] [address] PCP - General Internal Medicine 09/09/23 documented as of this encounter
--- OUTSIDE RECORDS SUMMARY | 2024-02-27 09:28 | External Medical Summary | Summary of Care ---
Author Name Unknown Organization [facility] Address [address] [place] [address] Phone [phone] Care Team Providers Care Food Service Clerk Name Role Phone Pedro Luis Bowens DO Primary Care Provider [phone] Reason for Visit * Reason Onset Date Comments Appointment 02/25/2024 Transfusion Encounter Details Date Type Department Care Team (Late st Contact Info) Description 02/25/2024 Telephone Hematology/Oncology [facility] 200 [facility] [place] [address] Marimar Del Castillo MD [address] [place] [address] Appointment (Transfusion) Allergies Active Allergy Reactions Criticality Noted Date [...] of insulin, unspecified laterality, unspecified retinopathy severity (HCC) Use to test blood glucose 4 times [...] Release 12 HourIndications :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) TAKE [...] A1c goal of less than 7.0% (HCC) Take 1 Tablet by mouth in the [...] 02/17/2024 Malignant neoplasm of head of pancreas 4 Metastasis from pancreatic cancer 01/28/2024 Encounter for antineoplastic chemotherapy 2023 Atherosclerosis of redding ar teries of extremities with rest pain, bilateral legs 11/08/2023 Pulmonary hypertension, unspecified 07/17/2022 B12 deficiency 03/22/2022 Moderate aortic stenosis 11/28/2021 Occupational exposure to noise 09/27/2020 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 [employer] Other*[id number] 09/23/2009 05/01/2016 Overview (09/23/2009): Study Titile: Genomic Markers for Patients with Cardiovascular Disease Project #[id number] PI: Estela Sandoval MD Please call [phone] with study related questions Dyslipidemia, goal LDL [...] Used Date Smoking Tobacco: Former Cigarettes 1 18 04 96 - 1985 Passive Smoke Exposure: Past Smokeless [...] No 03/21/2023 Does the household have a [facility] source of income? (Household - for ages [...] Telephone Encounter - Marco Farrell RN - 02/25/2024 8:00 AM EST Late Entry: Reviewed CBCD with Dr. Del Castillo. Pt Hgb 7.1, recently received chemotherapy and hasn't been feeling well with little energy, poor nutritional intake, and diarrhea x 2 days and low grade fever of 100. Pt aware that LFT's are now elevated and he should avoid Tylenol. Plt count is low so we should avoid NSAIDS as much as possible. Pt made aware that if his status declined over night and or he ran a fever of 100.4 or greater he was to be seen in the ER. Pt agreeable to blood transfusion. Consent signed with patient and provider and given to David Greenwood LPN. Orders placed for the transfusion. Reviewed symptoms again with patient and his significant other, both verbalized understanding of needing to go to ER if his symptoms get worse over night. Message sent to scheduling yesterday to schedule patient for follow up with Dr. Del Castillo on 03/02 @ 1PM. documented in this encounter Plan of Treatment Upcoming Encounters Date Type Department Care Team (Latest Contact Info) Description 4 1:30 PM EST Telemedicine Family Practice [address] [place] [phone] College, Pharmacist [address] [place] [address], [place] [address] Arrived 4 4:20 PM EST Office Visit Family Practice [address] [place] [address], [place] [address] Pedro Luis Bowens DO 293 [place] [address] 4 11:00 AM EST Scheduled Telephone Family Practice [address] [place] [address] 293 [place] [address] Consuelo Howard RN 293 [place] [address] 4 12:30 PM EST Laboratory Laboratory [facility] [place] [address] [place] [phone] [facility] [address] [facility] [place] [address] 4 1:00 PM EST Office Visit Hematology/Onco logy [facility] [place] [address] [place] [address] Marimar Del Castillo MD [address] [place] [address] 4 1:30 PM EST Hem/Onc Treatment Hematology/Onco logy Treatment, [place] [address] [place] [phone] Park, Chair 10 Hem Onc Scenery [address] [place] [address] 4 9:20 AM EST Office Visit Family Practice [address] [place] [address] 293 [place] [address] Pedro Luis Bowens, DO 293 [place] [address] 4 8:40 AM EST Office Visit Family Practice 65 [facility] 293 [place] [address] Pedro Luis Bowens, DO 293 [place] [address] 5 8:00 AM EST Hospital Encounter ENDO OSS, Endoscopy Room [facility] [address] [place] [phone] Jose E Bai MD [address] [place] [address] 5 8:00 AM EST - 5 8:45 AM EST Surgery ENDO OSS, Endoscopy Room [facility] [address] [place] [phone] Jose E Bai MD [address] [place] [address] ENDOSCOPIC RETROGRADE CHOLANGIOPANCREATOGRAPHY (ERCP) DIAGNOSTIC Scheduled Procedures Name Priority Associated Diagnoses Date/Ti de ENDOSCOPIC RETROGRADE CHOLANGIOPANCREATOGRAPHY (ERCP) DIAGNOSTIC Pancreatic mass [...] this encounter Medical Devices Implanted Type Area Machine Sprayer Device Identifier Shelf Expiration Date Model / Serial / Lot Stent Bili Duodenal [id number] - [id number] Implanted:Qty: 1 on 01/16/2024 by Jose E Bai MD at ENDOSCOPY [facility] N/A: Stomach [employer] 12/02/2025 D-1031-1 007 / / [id number] documented as of this encounter Advance Directives [...] Power of Attor ila? No Care Teams Food Service Clerk Relationship Specialty Start Date End Date Pedro Luis Bowens DO 293 [place] [address] PCP - General Internal Medicine 09/09/23 documented as of this encounter
--- OUTSIDE RECORDS SUMMARY | 2024-02-27 09:28 | External Medical Summary | Summary of Care ---
Author Name Unknown Organization [facility] Address [address] [place] [address] Phone [phone] Care Team Providers Care Cloth Cutter Name Role Phone Pedro Luis Bowens DO Primary Care Provider [phone] Reason for Visit * Reason Onset Date Comments Advice 02/25/2024 Follow up 2023 Encounter Details Date Type Department Care Team (Late st Contact Info) Description 02/25/2024 Telephone Hematology/Oncology [facility] [address] [place] [address] Marimar Del Castillo MD [address] [place] [address] Advice (Follow up 02/24/2024) Allergies Active Allergy [...] of insulin, unspecified laterality, unspecified retinopathy severity ([facility]) Use to test blood glucose 4 [...] Release 12 HourIndications :Coronary artery disease of [place] artery of [place] heart with stable angina pectoris (HCC) TAKE [...] hemoglobin A1c goal of less than 7.0% ([facility]) Take 1 Tablet by mouth in [...] Encounter for antineoplastic chemotherapy 2023 Atherosclerosis of [place] ar teries of extremities with rest pain, bilateral legs 11/08/2023 Pulmonary hypertension, unspecified 07/17/2022 B12 deficiency 03/22/2022 Moderate aortic stenosis 11/28/2021 Occupational exposure to noise 09/27/2020 Coronary artery disease of n ative artery of [place] heart with stable angina pectoris 09/17/2019 Gastroesophageal [...] Per HTN Protocol #27. [employer] Other*[id number] 09/23/2009 05/01/2016 Overview (09/23/2009): Study Titile: Genomic Markers for Patients with Cardiovascular Disease Project #[id number] PI: Estela Sandoval MD Please call [phone] with study related questions Dyslipidemia, goal LDL [...] Patient to receive 1 unit prbc. Called [facility] blood bank. Spoke with Jonathan. Spoke with Sabina in [place]. Called [facility] central scheduling. Patient scheduled for 02/26/2024 at 09:30 am. Left message for patient. * Telephone Encounter - Ora Greenwood LPN - 02/25/2024 7:55 AM EST Left message for patient to return call; return phone number provided. documented in this encounter Plan of Treatment Upcoming Encounters Date Type Department Care Team (Latest Contact Info) Description 4 1:30 PM EST Telemedicine Family Practice [address] [place] [address] College, Pharmacist [address] [place] [address] Arrived 4 4:20 PM EST Office Visit Family Practice [address] [place] [address] Pedro Luis Bowens DO 293 [place] [address] 4 11:00 AM EST Scheduled Telephone Family Practice [address] [place] [address] Consuelo Howard RN [address] [place] [address], [place] [address] 4 12:30 PM EST Laboratory Laboratory [facility] [place] [address] [place] [address] [facility] [address] [place] [address] 4 1:00 PM EST Office Visit Hematology/Onco logy [facility] [place] [address] [place] [address] Marimar Del Castillo MD [address] [place] [address] 4 1:30 PM EST [facility] [address] [place], [place] [phone] Marycarmen, Chair 10 Hem Onc [facility] 200 [facility] [place] [address] 4 9:20 AM EST Office Visit Family Practice [address] [place] [address] 293 [facility] [place] [address] Pedro Luis Bowens, DO 293 [place] [address] 4 8:40 AM EST Office Visit Family Practice [address] [place] [address] 293 [facility] [place] [phone] Pedro Luis Bowens, DO 293 [place] [address] 5 8:00 AM EST Hospital Encounter ENDO OSSC, Endoscopy Room [facility] [address] [place] [phone] Jose E Bai MD [address] [place] [address] 5 8:00 AM EST - 5 8:45 AM EST Surgery ENDO OSSC, Endoscopy Room [facility] [address] [place] [phone] Jose E Bai MD [address] [place] [address] ENDOSCOPIC RETROGRADE CHOLANGIOPANCREATOGRAPHY (ERCP) DIAGNOSTIC Scheduled Orders [...] this encounter Medical Devices Implanted Type Area Patch Press Operator Device Identifier Shelf Expiration Date Model / Serial / Lot Stent Bili Duodenal [id number] - [id number] Implanted:Qty: 1 on 01/16/2024 by Jose E Bai MD at ENDOSCOPY [facility] N/A: Stomach [employer] 12/02/2025 [id number]-1031-1 [id number] / / [id number] documented as of this encounter Visit Diagnoses [...] Power of Attor ila? No Care Teams Cloth Cutter Relationship Specialty Start Date End Date Pedro Luis Bowens DO 293 [place] [address] PCP - General Internal Medicine 09/09/23 documented as of this encounter
--- OUTSIDE RECORDS SUMMARY | 2024-02-27 09:29 | External Medical Summary | Summary of Care ---
Author Name Unknown Organization [facility] Address [address] [place] [address] Phone [phone] Care Team Providers Care Marketing [employer] Name Role Phone Pedro Luis Bowens DO Primary Care Provider [phone] Reason for Visit * Reason Onset Date Comments Emergency Department Follow-Up 02/24/2024 1 04/26 Encounter Details Date Type Department Care Team (Late st Contact Info) Description 02/24/2024 Telephone Family Practice 65 [facility] 293 [place] [address] Pedro Luis Bowens DO 293 [place], [place] [phone] Emergency Department Follow-Up (02/23) Allergies Active Allergy Reactions Criticality Noted Date Comments Iodinated Contrast Media Rash 08/29/2009 Pt got a rash after his cath on 08/23/09 Levofloxacin 11/03/2009 Nausea jittery Lisinopril 10/01/2013 Cough Rash documented as of this encounter (statuses as of 02/24/2024) Medications ASPIRIN 81 MG PO CHEW Take 1 Tablet by mouth at bedtime. 100 Tab 3 08/25/19 10 Active Iron-Vitamin C 65-125 MG Tablet Take 1 Tablet by mouth every other day. Active Multiple Vitamin (MULTI-DAY) Tablet Take 1 Tablet by mouth every evening. Active Probiotic Product (PROBIOTIC ACIDOPHILUS BIOBEADS) Capsule Take 1 Cap by mouth daily before breakfast. Active Amiatouch Ultra 2 w/Device KitIndications: Type 2 diabetes [...] Release 12 HourIndications :Coronary artery disease of [place] artery of [place] heart with stable angina pectoris (HCC) TAKE ONE TABLET BY MOUTH TWICE A DAY 200 Tablet 3 4 9:01 AM EDT 05/02/19 24 025 Active Isosorbide Mononitrate ER [...] than 7.0% ([facility]) Take 1 Tablet by mouth in the morning. Before breakfast. 90 Tablet 2 02/18/20 24 Active Lidocaine Viscous HCl 2 % Mouth/Throat Solution Swish and spit 15 mL as needed for Pain, Mild (mouth discomfort). 200 mL 3 02/19/20 24 Active documented as of this encounter (statuses as of 02/24/2024) Active Problems Problem Noted Date Diagnosed Date Secondary malignant neoplasm of liver and intrahepatic bile duct 02/17/2024 Malignant neoplasm of head of pancreas 4 Metastasis from pancreatic cancer 01/28/2024 Encounter for antineoplastic chemotherapy 2023 Atherosclerosis of [place] ar teries of extremities with rest pain, bilateral legs 11/08/2023 Pulmonary hypertension, unspecified 07/17/2022 B12 deficiency 03/22/2022 Moderate aortic stenosis 11/28/2021 Occupational exposure to noise 09/27/2020 Coronary artery disease of n ative artery of [place] heart with stable angina pectoris 09/17/2019 Gastroesophageal [...] as of this encounter (statuses as of 02/24/2024) Resolved Problems Problem Noted Date Diagnosed Date [...] Per HTN Protocol #27. [employer] Other*[id number] 09/23/2009 05/01/2016 Overview (09/23/2009): Study Titile: Genomic Markers for Patients with Cardiovascular Disease Project #[id number] PI: Estela Sandoval MD Please call [phone] with study related questions Dyslipidemia, goal LDL below 70 08/30/2009 02/26/2013 HTN, goal below 130/80 08/30/200911/14 Overview: Per HTN Protocol #27. History of drug allergy 08/29/200906/23 Dyslipidemia, goal LDL below 70 08/23/2009 02/26/2013 ACEI/ARB contraindicated 09/2013 documented as of this encounter (statuses as of 02/24/2024) Immunizations Name Administration Dates Next Due COVID-19 [...] Date Smoking Tobacco: Former Cigarettes 1 25 96 - 1985 Passive Smoke Exposure: Past [...] No 03/21/2023 Does the household have a [employer] source of income? (Household - for ages [...] encounter Miscellaneous Notes * Telephone Encounter - Leigh Ann Alejandra OSA - 02/24/2024 11:57 AM EST Appt added tomorrow per message. * Telephone Encounter - Linda Burkett LPN - 02/24/2024 11:32 AM EST The patient was contacted in regards to their recent: Emergency Department visit Did patient call the office before going to ER: No When was patient seen: 02/22/2024 Which ED: [facility] What were they seen for: Sore throat, mouth, and jaw What did ED think was wrong (dx): Thrush What testing did they have done: none Any new medications prescribed: Nystatin suspension When did the ED recommend they follow up: 1-7 days Is Ed record available: Yes How is patient feeling today: Reports throat, mouth feel a little better today. He is using Nystatin Suspension. Patient concerns today: Pt reports he "feels lousy". Has been having diarrhea for a couple of days;feels fatigued. Reports low grade fever of 99-100. Taking Tylenol 1000 mg. Cancelled his Hem/Onc appt today and states he is waiting for a call back from that office. He is concerned about low grade temp. Agreeable for ED f/u visit tomorrow, 02/24 at 4:20 in the afternoon. Please advise with any additional recommendations. desk monitor - please place on Dr. Bowens schedule tomorrow, 02/24 at 4:20. Thank you. documented in this encounter Plan of Treatment Upcoming Encounters Date Type Department Care Team (Latest Contact Info) Description 4 1:30 PM EST Telemedicine Family Practice [address] [place] [phone] College, Pharmacist [address] [place] [address] 4 4:20 PM EST Office Visit Family Practice [address] [place] [address] Pedro Luis Bowens, [address] [place] [address], [place] [address] 4 9:20 AM EST Office Visit Family Practice [address] [place] [address], [place] [address] Pedro Luis Bowens, [address] [place], [place] [address] [address] 4 8:40 AM EST Office Visit Family Practice 65 [facility], [place] 293 [place] [phone] Pedro Luis Bowens DO 293 [place] [address] 5 8:00 AM EST Hospital Encounter ENDO OSS[facility] [place] [address] Jose E Bai MD 132 [facility] [place] [address] 5 8:00 AM EST - 5 8:45 AM EST Surgery ENDO OSS, Endoscopy Room [facility] 132 [facility] [place] [phone] Jose E Bai MD 132 [facility] [place] [address] ENDOSCOPIC RETROGRADE CHOLANGIOPANCREATOGRAPHY (ERCP) DIAGNOSTIC Scheduled Procedures Name Priority Associated Diagnoses Date/Ti la ENDOSCOPIC RETROGRADE CHOLANGIOPANCREATOGRAPHY (ERCP) DIAGNOSTIC Pancreatic mass Liver mass 04/21/2024 8:00 AM EST ENDOSCOPIC RETROGRADE CHOLANGIOPANCREATOGRAPHY (ERCP) W/STENT REMOVAL AND EXCHANGE; INC DILATION, GUIDE WIRE AND SPHINCTEROTOMY Pancreatic mass Liver mass 04/21/2024 8:00 AM EST Health Maintenance Due Date Last Done Comments Adult Wellness Visit 12/15/2021 12/15/2020 Depression Screening 03/21/2024 03/21/2023 HbA1c 05/10/2024 11/08/2023, 06/23, 03/21/2023, Additional history exists Albumin/Creatinine Ratio 07/11/20242 024, 07/17/2022, 07/05/2021, Additional history exists Diabetic Foot Exam 07/11/2024 07/12/2023, 0 07/17/2022, 07/11/2021, Additional history exists Diabetic Eye Exam 07/21/2024 07/22/2023, , 07/12/2022, Additional history exists GFR 02/16/2025 02/17/2024, 01/23, 12/31/2023, Additional history exists DTap/Tdap Vaccines (3 - [...] this encounter Medical Devices Implanted Type Area Gridcap Machine Operator Device Identifier Shelf Expiration Date Model / Serial / Lot Stent Bili Duodenal [id number] - [id number] Implanted:Qty: 1 on 01/16/2024 by Jose E Bai MD at ENDOSCOPY [facility] N/A: Stomach [email or web address] 12/02/2025 D-1031-1 007 / / [id number] documented as of this encounter Advance Directives [...] Power of Attor ila? No Care Teams Marketing [employer] Relationship Specialty Start Date End Date Pedro Luis Bowens DO [address] [facility] [place] [address] PCP - General Internal Medicine 09/09/23 documented as of this encounter
--- OUTSIDE RECORDS SUMMARY | 2024-02-27 09:29 | External Medical Summary ---
Author Name Unknown Address Unknown Organization K09:[facility] [address] [place] [address] Laboratory Report Ordering Provider Test Date Status STRAUSS,ROSARIO 02/24/2024 14:33:23 Final Observation Date Value Abnormality Reference (Units ) Status SYNC LEUKOCYTES IN BLOOD BY AUTOMATED COUNT 02/24/2024 14:33:23 0.84 Below lower panic limits 4.00-10.80 (K/uL) Final Neutrophils/100 leukocytes in Blood by Manual count 02/24/2024 14:33:23 46.0 40.0-75.0 (%) Final Lymphocytes/100 leukocytes in Blood by Manual count 02/24/2024 14:33:23 30.0 18.0-42.0 (%) Final Monocytes/100 leukocytes in Blood by Manual count 02/24/2024 14:33:23 22.0 Above high normal 1.0-11.0 (%) Final Eosinophils/100 leukocytes in Blood by Manual count 02/24/2024 14:33:23 1.0 0.0-6.0 (%) Final Basophils/100 leukocytes in Blood by Manual count 02/24/2024 14:33:23 1.0 0.0-2.0 (%) Final Neutrophils [#/volume] in Blood by Manual count 02/24/2024 14:33:23 0.39 Below low normal 1.80-7.70 (K/uL) Final Lymphocytes [#/volume] in Blood by Manual count 02/24/2024 14:33:23 0.25 Below low normal 1.00-4.80 (K/uL) Final Monocytes [#/volume] in Blood by Manual count 02/24/2024 14:33:23 0.18 0.00-1.10 (K/uL) Final Eosinophils [#/volume] in Blood by Manual count 02/24/2024 14:33:23 0.01 0.00-0.70 (K/uL) Final Basophils [#/volume] in Blood by Manual count 02/24/2024 14:33:23 0.01 0.00-0.20 (K/uL) Final Nucleated erythrocytes/100 leukocytes [Ratio] in Blood by Automated count 02/24/2024 14:33:23 Final Performing Location [facility] [address] [place] [address]
--- OUTSIDE RECORDS SUMMARY | 2024-02-27 09:29 | External Medical Summary | Summary of Care ---
Author Name Unknown Organization [facility] Address [address] [place] [address] Phone [phone] Care Team Providers Care Mortgage Specialist Name Role Phone Pedro Luis Bowens DO Primary Care Provider [phone] Reason for Visit * Reason Onset Date Comments Appointment 02/24/2024 Dr. Del Castillo Encounter Details Date Type Department Care Team (Late st Contact Info) Description 02/24/2024 Telephone Hematology/Oncology [facility] 200 [facility] [place] [phone] Waqar Mckinley MD 200 [facility] [place] [address] Appointment (Dr. Del Castillo) Allergies Active Allergy Reactions Criticality Noted Date [...] Release 12 HourIndications :Coronary artery disease of [place] artery of [place] heart with stable angina pectoris (HCC) TAKE [...] hemoglobin A1c goal of less than 7.0% ([facility]) Take 1 Tablet by mouth in the [...] Encounter for antineoplastic chemotherapy 2023 Atherosclerosis of [place] ar teries of extremities with rest pain, bilateral legs 11/08/2023 Pulmonary hypertension, unspecified 07/17/2022 B12 deficiency 03/22/2022 Moderate aortic stenosis 11/28/2021 Occupational exposure to noise 09/27/2020 Coronary artery disease of n ative artery of [place] heart with stable angina pectoris 09/17/2019 Gastroesophageal [...] Per HTN Protocol #27. [employer] Other*[id number] 09/23/2009 05/01/2016 Overview (09/23/2009): Study Titile: Genomic Markers for Patients with Cardiovascular Disease Project #[id number] PI: Estela Sandoval MD Please call [phone] with study related questions Dyslipidemia, goal LDL [...] No 03/21/2023 Does the household have a [facility] source of income? (Household - for ages [...] Telephone Encounter - Marco Farrell RN - 02/24/2024 12:47 PM EST Called patient, states he just had a low grade temp this morning of 99.8. Took two 500mg Tylenol. He took his temp again just now and is 99.8. He has been having diarrhea, is trying to hydrate the best he can but hasn't been successful with this as he has lightheadedness/dizziness. Pt is agreeable to come today for labs and hydration. Dr. Del Castillo- please place order for "1L NSS over 2 hours today" Scheduling- Please do the following: - 2 hour treatment today "Hydration/Labs from port" - 03/02 lab apt at [facility] 1 hour prior to treatment "CBCD,CMP" - 03/02 2 hour treatment "Abraxane/Gemzar C1,D15" (Magdalene) * Telephone Encounter - Tamika Tamayo OSA - 02/24/2024 11:38 AM EST Pt cancelling his lab and treatment appt because he is feeling sick, including low grade fever of 99. Requesting callback to reschedule. Phone number is [phone]. documented in this encounter Plan of Treatment Upcoming Encounters Date Type Department Care Team (Latest Contact Info) Description 4 2:15 PM EST Hem/Onc Treatment Hematology/Onco logy Treatment, [place] [address] [place] [address] Park, Chair 8 Hem Onc Scenery 200 [facility] [place] [address] 4 1:30 PM EST Telemedicine Family Practice [address] [place] [address] [place] [phone] College, Pharmacist [address] [address] 4 4:20 PM EST Office Visit Family Practice [address] [place] [address] [place] [phone] Pedro Luis Bowens DO [address] [place] [address] 4 11:00 AM EST Scheduled Telephone Family Practice [address] [place] [address], [place] [phone] Consuelo Howard RN 293 [facility] [place] [phone] 4 12:00 PM EST Laboratory Laboratory Scenery [facility] [address] [place], [place] [address] Park, Lab Scenery [address] [place] [address] 4 1:00 PM EST Hem/On[facility] [address] [place] [address] aMrycarmen, Chair 10 Hem Onc Scenery [address] [place], [place] [address] 4 9:20 AM EST Office Visit Family Practice [address] [place] [address] [place] [address] Pedro Luis Bowens, DO 293 [facility] [place] [address] 4 8:40 AM EST Office Visit Family Practice [address] [place] [address], [place] [address] Pedro Luis Bowens, DO 293 [facility] [place] [address] 5 8:00 AM EST Hospital Encounter ENDO OSSC, Endoscopy Room [facility] [address] [place] [phone] Jose E Bai MD [address] [place] [address] 5 8:00 AM EST - 5 8:45 AM EST Surgery ENDO OSS[facility], Endoscopy Room [facility] [address] [place] [phone] Jose E Bai MD [address] [place] [address] ENDOSCOPIC RETROGRADE CHOLANGIOPANCREATOGRAPHY (ERCP) DIAGNOSTIC Scheduled Procedures [...] this encounter Medical Devices Implanted Type Area Shield Operator Device Identifier Shelf Expiration Date Model / Serial / Lot Stent Bili Duodenal [id number] - [id number] Implanted:Qty: 1 on 01/16/2024 by Jose E Bai MD at ENDOSCOPY [facility] N/A: Stomach [employer] 12/02/2025 D-1031-1 007 / / [id number] documented as of this encounter Visit Diagnoses [...] Power of Attor ila? No Care Teams Mortgage Specialist Relationship Specialty Start Date End Date Pedro Luis Bowens DO [address] [place] [address] PCP - General Internal Medicine 09/09/23 documented as of this encounter
--- OUTSIDE RECORDS SUMMARY | 2024-02-27 09:29 | External Medical Summary | Summary of Care ---
Author Name Unknown Organization [facility] Address [address] [place] [address] Phone [phone] Care Team Providers Care Steward/Stewardess Night Name Role Phone Pedro Luis Bowens DO Primary Care Provider [phone] Encounter Details Date Type Department Care Team (Late st Contact Info) Description 02/24/2024 Orders Only Hematology/Oncology [facility] [place] [address] [place] [phone] Marimar Del Castillo MD [address] [place] [address] Allergies Active Allergy Reactions Criticality Noted Date [...] Release 12 HourIndications :Coronary artery disease of [place] artery of [place] heart with stable angina pectoris (HCC) TAKE [...] PRIOR TO ACCESSING. 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 Active Magnesium Oxide 400 MG Oral Tablet Take 1 Tablet by mouth in the morning and 1 Tablet before bedtime. 02/13/20 Active Albuterol Sulfate HFA 108 (90 Base) [...] 15 mL before bedtime. 300 mL 02/18/20 Active glipiZIDE ER 2.5 MG Oral Tablet [...] Mild (mouth discomfort). 200 mL 3 02/19/20 Active documented as of this encounter (statuses as of 02/24/2024) Active Problems Problem Noted Date Diagnosed Date Dehydration 02/24/2024 Secondary malignant neoplasm of liver and intrahepatic bile duct 02/17/2024 Malignant neoplasm of head of pancreas 4 Metastasis from pancreatic cancer 01/28/2024 Encounter for antineoplastic chemotherapy 2023 Atherosclerosis of [place] ar teries of extremities with rest pain, bilateral legs 11/08/2023 Pulmonary hypertension, unspecified 07/17/2022 B12 deficiency 03/22/2022 Moderate aortic stenosis 11/28/2021 Occupational exposure to noise 09/27/2020 Coronary artery disease of n ative artery of [place] heart with stable angina pectoris 09/17/2019 Gastroesophageal [...] Per HTN Protocol #27. [employer] Other*[id number] 09/23/2009 05/01/2016 Overview (09/23/2009): Study Titile: Genomic Markers for Patients with Cardiovascular Disease Project #[id number] PI: Estela Sandoval MD Please call [phone] with study related questions Dyslipidemia, goal LDL [...] Years Used Date Smoking Tobacco: Former Cigarettes 96 - 1985 Passive Smoke Exposure: Past [...] No 03/21/2023 Does the household have a [facility] source of income? (Household - for [...] PM EST Hem/Onc Treatment Hematology/Onco logy Treatment, [place] [address] [place] [address] [place], Chair 8 Hem Onc Scenery [address] [place] [address] Arrived 4 1:30 PM EST Telemedicine Family Practice [address], [place] [address] [place] [address] College, Pharmacist 65 [address] [address] 4 4:20 PM EST Office Visit Family Practice 65 [facility] 293 [place] [phone] Pedro Luis Bowens, DO 293 [facility], [place] [address] 4 11:00 AM EST Scheduled Telephone Family Practice 65 [facility] 293 [facility], [place] [phone] Consuelo Howard RN 293 [place] [address] 4 12:00 PM EST Laboratory Laboratory [facility] 200 [facility] [place], [place] [phone] [place], Lab [facility] 200 [facility] [place], [place] [address] 4 1:00 PM EST Hem/Onc Treatment Hematology/Onco logy [facility] [address] [place], [place] [phone] Mary[place], Chair 10 Hem Onc [facility] 200 [facility] [place], [place] [address] 4 9:20 AM EST Office Visit Family Practice 65 [facility] 293 [facility], [place] [phone] Pedro Luis Bowens, DO [address] [place] [address], [place] [address] 4 8:40 AM EST Office Visit Family Practice [address], [place] [phone] Pedro Luis Bowens, [address] [place] [address], [place] [address] 5 8:00 AM EST Hospital Encounter ENDO OSSC, Endoscopy Room [facility] [address] [place] [address] Jose E Bai MD [address] [place] [address] 5 8:00 AM EST - 5 8:45 AM EST Surgery ENDO OSSC, Endoscopy Room [facility] [address] [place] [address] Jose E Bai MD [address] [place] [address] ENDOSCOPIC RETROGRADE CHOLANGIOPANCREATOGRAPHY (ERCP) DIAGNOSTIC Scheduled Procedures Name Priority Associated Diagnoses Date/Ti az ENDOSCOPIC RETROGRADE CHOLANGIOPANCREATOGRAPHY (ERCP) DIAGNOSTIC Pancreatic mass [...] this encounter Medical Devices Implanted Type Area Quality Systems Technician Device Identifier Shelf Expiration Date Model / Serial / Lot Stent Bili Duodenal [id number] - [id number] Implanted:Qty: 1 on 01/16/2024 by Jose E Bai MD at ENDOSCOPY [facility] N/A: Stomach [employer] 12/02/2025 PBD-1031-1 007 / / [id number] documented as of this encounter Advance Directives [...] Power of Attor ila? No Care Teams Steward/Stewardess Night Relationship Specialty Start Date End Date Pedro Luis Bowens DO [address] [place] [address] PCP - General Internal Medicine 09/09/23 documented as of this encounter
--- OUTSIDE RECORDS SUMMARY | 2024-02-27 09:29 | External Medical Summary | Summary of Care ---
Author Name Unknown Organization [facility] Address [address] [place] [address] Phone [phone] Care Team Providers Care Public Health Clinical Nurse Specialist Name Role Phone Pedro Luis Bowens DO Primary Care Provider [phone] Encounter Details Date Type Department Care Team (Late st Contact Info) Description 02/24/2024 Orders Only Hematology/Oncology [facility] [place] [address] [place] [address] Marimar Del Castillo MD [address] [place] [address] Allergies Active Allergy Reactions Criticality Noted Date [...] Release 12 HourIndications :Coronary artery disease of [place] artery of [place] heart with stable angina pectoris (HCC) TAKE [...] Encounter for antineoplastic chemotherapy 2023 Atherosclerosis of [place] ar teries of extremities with rest pain, bilateral legs 11/08/2023 Pulmonary hypertension, unspecified 07/17/2022 B12 deficiency 03/22/2022 Moderate aortic stenosis 11/28/2021 Occupational exposure to noise 09/27/2020 Coronary artery disease of n ative artery of [place] heart with stable angina pectoris 09/17/2019 Gastroesophageal [...] Per HTN Protocol #27. [employer] Other*[id number] 09/23/2009 05/01/2016 Overview (09/23/2009): Study Titile: Genomic Markers for Patients with Cardiovascular Disease Project #[id number] PI: Estela Sandoval MD Please call [phone] with study related questions Dyslipidemia, goal LDL [...] No 03/21/2023 Does the household have a [facility] source of income? (Household - for ages [...] PM EST Hem/Onc Treatment Hematology/Onco logy Treatment, [place] [address] [place] [address] Mary[place], Chair 8 Hem Onc Scenery [address] [place] [address] 4 1:30 PM EST Telemedicine Family Practice 65 [facility] 293 Luci [address] [place] [address] College, Pharmacist 65 [address] [address] 4 4:20 PM EST Office Visit Family Practice 65 [facility] [address] [place] [address] Pedro Luis Bowens, DO 293 [facility], [place] [address] 4 11:00 AM EST Scheduled Telephone Family Practice 65 [facility] [address] [place] [address] Consuelo Howard RN 293 [place] [address] 4 12:00 PM EST Laboratory Laboratory [facility] 200 [facility] [place], [place] [phone] Maryc[place], Lab [facility] 200 [facility] [place], [place] [address] 4 1:00 PM EST Hem/Onc Treatment Hematology/Onco logy [facility] [address] [facility] [address] [place], [place] [phone] Marycarmen, Chair 10 Hem Onc [facility] 200 [facility], [place] [address] 4 9:20 AM EST Office Visit Family Practice [address] [place] [address] Pedro Luis Bowens, DO [address] [place] [address], [place] [address] 4 8:40 AM EST Office Visit Family Practice [address] [place] [phone] Pedro Luis Bowens, [address] [place] [address], [place] [address] 5 8:00 AM EST Hospital Encounter ENDO OSSC, Endoscopy Room [facility] [address] [place], [place] [address] Jose E Bai MD [address] [place] [address] 5 8:00 AM EST - 5 8:45 AM EST Surgery ENDO OSSC, Endoscopy Room [facility] [address] [place] [address] Jose E Bai MD [address] [place] [address] ENDOSCOPIC RETROGRADE CHOLANGIOPANCREATOGRAPHY (ERCP) DIAGNOSTIC Scheduled Procedures Name Priority Associated Diagnoses Date/Ti ny ENDOSCOPIC RETROGRADE CHOLANGIOPANCREATOGRAPHY (ERCP) DIAGNOSTIC Pancreatic mass [...] this encounter Medical Devices Implanted Type Area Principal Mechanical Engineer Device Identifier Shelf Expiration Date Model / Serial / Lot Stent Bili Duodenal [id number] - [id number] Implanted:Qty: 1 on 01/16/2024 by Jose E Bai MD at ENDOSCOPY [facility] N/A: Stomach [employer] 12/02/2025 PBD-1031-1 007 / / [id number] documented as of this encounter Advance Directives [...] Power of Attor ila? No Care Teams Public Health Clinical Nurse Specialist Relationship Specialty Start Date End Date Pedro Luis Bowens DO [address] [place] [address] PCP - General Internal Medicine 09/09/23 documented as of this encounter
--- OUTSIDE RECORDS SUMMARY | 2024-02-27 09:29 | External Medical Summary ---
Author Name Unknown Address Unknown Organization K09:[facility] [place] [address] Laboratory Report Ordering Provider Test Date Status ROSARIO STRAUSS 02/24/2024 14:33:23 Final Observation Date Value Abnormality Reference (Units ) Status WBC, Total 02/24/2024 14:33:23 0.84 Below lower panic limits 4.00-10.80 (K/uL) Final RBC 02/24/2024 14:33:23 2.55 4.50-5.25 (M/uL) Final Hemoglobin 02/24/2024 14:33:23 7.1 Below low normal 14.0-16.8 (g/dL) Final HCT 02/24/2024 14:33:23 22.3 Below low normal 40.0-48.4 (%) Final MCV 02/24/2024 14:33:23 87.5 82.0-99.5 (fL) Final MCH 02/24/2024 14:33:23 27.8 27.0-34.0 (pg) Final MCHC 02/24/2024 14:33:23 31.8 32.0-36.0 (g/dL) Final RDW 02/24/2024 14:33:23 15.0 11.5-15.5 (%) Final Platelets 02/24/2024 14:33:23 182 140-400 (K/uL) Final MPV 02/24/2024 14:33:23 8.5 6.6-11.1 (fL) Final Performing Location [facility] [place] [address]
--- OUTSIDE RECORDS SUMMARY | 2024-02-27 09:29 | External Medical Summary | Summary of Care ---
Author Name Unknown Organization [facility] Address [address] [place] [address] Phone [phone] Care Team Providers Care Tsa Screener Name Role Phone Pedro Luis Bowens DO Primary Care Provider [phone] Reason for Visit * Reason Comments IV Therapy hydration Chemotherapy Hold chemo Encounter Details Date Type Department Care Team (Latest Contact Info) Description 02/24/2024 2:15 PM EST Hem/Onc Treatment Hematology/Oncology Treatment, [place] [address] [facility] [place] [phone] Marycarmen, Chair 8 Hem Onc [facility] [address] [place] [address] Dehydration*; 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); 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); 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) Allergies Active Allergy Reactions Criticality Noted [...] hemoglobin A1c goal of less than 7.0% ([facility]),DM type 2 causing vascular disease ([facility]),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, without long-term current use of insulin, unspecified laterality, unspecified retinopathy severity ([facility]) Use to test blood glucose [...] Release 12 HourIndications :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 [employer] Other*[id number] 09/23/2009 05/01/2016 Overview (09/23/2009): Study Titile: Genomic Markers for Patients with Cardiovascular Disease Project #[id number] PI: Estela Sandoval MD Please call [phone] with study related questions Dyslipidemia, goal LDL [...] money to buy more. Never true 03/21/20 Within the past 12 months, t he [...] Sign Reading Time Taken Comments Blood Pressure 104/49 02/24/2024 4:39 PM EST Pulse 78 02/24/2024 4:39 PM EST Temperature 36.7 C (98.1 F) 02/24/2024 2:19 PM ES T Respiratory Rate 16 02/24/2024 4:39 PM EST Oxygen Saturation 98% 02/24/2024 4:39 PM EST Inhaled Oxygen Concentration - - Weight 71.5 kg (157 lb 9.6 oz) 02/24/2024 2:19 P M EST Height - - Body Mass Index 25.44 02/17/2024 9:47 AM EST documented in this encounter Nursing Notes * Ann Mckeon RN - 02/24/2024 5:31 PM EST Goals: Patient will remain free from injury. Possible barriers to meeting goals: ambulating with IV pole, dizziness, age, low BP, fatigue Stability of the patient: Moderately stable - low risk of patient condition declining or worsening Summary regarding today's goals: Met: pt remained free of harm today Patient tolerated treatment well without any acute issues or problems. Patient left facility in stable condition and denied any further needs. Patient tolerated treatment well without any acute issues or problems. Port needle removed and CDI/WNL. Patient left facility in stable condition and denied any further needs. * Ann Mckeon RN - 02/24/2024 4:55 PM EST LAB RESULTS: Electrolytes: (no replacement needed) -Potassium 4.3 -Magnesium 1.7 -Calcium 8.6 -Sodium decreased and low at 129. Kidney function is overall WNL: Cr 0.9 BUN 23, slightly elevated. Patient is receiving 1L NSS. LFTs are elevated from last results: 02/16 AST: 34 ALT: 44 Alk Phos: 587 Today: AST: 129 ALT: 137 Alk Phos: 426 Patient was also educated to avoid using Tylenol at this time d/t increased LFTs. Pt and communicated understanding and educated WBCs are low, ANC is 0.39, and to have patient go to ER if temp increases to 100.4F or higher. communicated understanding. Patient was also educated on the use of taking Imodium since pt reports having about 10 episodes ofdiarrhea the past day or 2. Pt communicated understanding. He states he was constipated at first and then started taking stool softeners which have now caused diarrhea in combination with his chemotherapy. Patient's hgb is also decreased, no reports of bleeding per pt. Hgb is 7.1 today. Patient is slightly pale and c/o fatigue but denies any SOB. Hemoglobin Results: Lab Results Component Value Date/Time HGB 7.1 (L) 02/24/2024 02:33 PM HGB 9.5 (L) 02/17/2024 12:14 PM HGB 10.1 (L) 02/04/2024 11:09 AM HGB 12.5 (L) 03/11/2020 08:10 AM HGB 12.5 (L) 08/28/2019 07:52 AM HGB 11.1 (L) 2016 01:37 PM Nurse specialist will get patient scheduled for 1 unit RBCs tomorrow or following day depending on [facility] availability to get patient in for transfusion. Patient signed blood consent form today in tx room. Patient encouraged to go to ER if he feels it is needed, aside from the fever, if he develops any worsening dizziness, very SOB, bleeding, lethargy, etc. Patient also encouraged to call us tomorrow if anything changes overnight or if he or was unsure what to do or if they need any help/have any questions. Both communicated understanding. * Ann Mckeon RN - 02/24/2024 4:51 PM EST Chair 10. Port accessed without difficulty, labs drawn via port as well per Dr. Del Castillo. Patient cancelled chemo tx today d/t not feeling well. See TE in chart from Marco Fair RN regarding having patient come infor labs and hydration. Patient is dizzy and lightheaded. BP upon assessment is 88/48. Patient does take atenolol daily 50 mg in the morning,. He reports he took it this morning but he never checks his BP at home. He does have a BP machine to check BP at home. RN encouraged patient to check BP at home before taking the atenolol and to hold BP medicine if SBP is <100. Patient communicated understanding. Patient is ambulating well overall but does need some support with ambulating. Patient is accompanied by , who drove patient here today. Patient has not been eating and drinking well and also recently got out of the hospital this past weekend again. He went to ER because of his low grade fever again and sore throat. He was given Nystatin. Oral mucosa observed by RN. Overall pink and WNL - patient has some difficulty swallowing and feels throat is extremely dry. RN reviews trying to keep hydrated, trying a humidifier at home, keeping lips moisturized, and trying biotene is his mouth continues to be persistently dry. Patient communicated understanding. Labs drawn from port and taken to the lab, awaiting results. Patient instructed on use of heat and massage functions where applicable. Patient shown how to operate the heat function of the chair and to alert nursing staff if the chair feels too warm. Patient instructed on the risk of potential carias while using the heat function. Safety and Risk for Injury Patient will remain free from injury. Ensure appropriate safety devices are available. Provide and maintain safe environment. documented in this encounter Plan of Treatment Upcoming Encounters Date Type Department Care Team (Latest Contact Info) Description 4 1:30 PM EST Telemedicine Family Practice [address] [place] [address], [place] [phone] College, Pharmacist [address] [place] [address] 4 4:20 PM EST Office Visit Family Practice [address] [place] [address], [place] [phone] Pedro Luis Bowens DO [address] [facility] [place] [place] [address] 4 11:00 AM EST Scheduled Telephone Family Practice [address] [place] [address], [place] [phone] Consuelo Howard RN [address] [place] [address], [place] [address] 4 12:30 PM EST Laboratory Laboratory [facility] [place] [address] [place], [place] [phone] Marycarmen, Lab [address] [place] [address] 4 1:00 PM EST Office Visit Hematology/Onco logy [facility] [place] [address] [place] [phone] Marimar Del Castillo MD [address] [place] [address] 4 1:30 PM EST Hem/Onc Treatment Hematology/Onco logy [facility] [address] [place], [place] [phone] Marycarmen, Chair 10 Hem Onc [address] [place], [place] [address] 4 9:20 AM EST Office Visit Family Practice [address] [facility] 293 [place] [address] Pedro Luis Bowens, [address] [facility] [place] [place] [address] 4 8:40 AM EST Office Visit Family Practice [facility] 293 [place] [address] Pedro Luis Bowens, DO [address] [facility] [place] [place] [address] 5 8:00 AM EST Hospital Encounter ENDO [facility], Endoscopy Room [facility] [address] [place] [phone] Jose E Bai MD [address] [place] [address] 5 8:00 AM EST - 8:45 AM EST Surgery ENDO [facility], Endoscopy Room [facility] [address] [place] [address] Jose E Bai MD [address] [place] [address] ENDOSCOPIC RETROGRADE CHOLANGIOPANCREATOGRAPHY (ERCP) DIAGNOSTIC Scheduled Procedures [...] this encounter Medical Devices Implanted Type Area Battery Charger Conveyor Line Device Identifier Shelf Expiration Date Model / Serial / Lot Stent Bili Duodenal [id number] - [id number] Implanted:Qty: 1 on 01/16/2024 by Jose E Bai MD at ENDOSCOPY [facility] N/A: Stomach [email or web address] 12/02/2025 [id number] / / [id number] documented as of this encounter Procedures Procedure Name Priority Date/Time Associated Diagnosis Comments DIFFERENTIAL, AUTOMATED STAT 02/24/2024 2:33 PM EST 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) COMPREHENSIVE METABOLIC PANEL STAT 02/24/2024 2:33 PM EST 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) CBC STAT 02/24/2024 2:33 PM EST 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) CBC STAT 02/24/2024 2:33 PM EST 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) DIFFERENTIAL, TECHNOLOGIST REVIEW Routine 02/24/2024 2:33 PM EST 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) MAGNESIUM STAT 02/24/2024 2:33 PM EST Dehydration documented in this encounter Results * (ABNORMAL) DIFFERENTIAL, TECHNOLOGIST REVIEW (02/24/2024 2:33 PM EST) WBC 0.84(LL) 4.00 - 10.80 K/uL 02/24/2024 2:50 PM EST [facility] 56-02 Neutrophils % 46.0 40.0 - 75.0 % 02/24/2024 2:50 PM EST [facility] 56-02 Lymphocytes % 30.0 18.0 - 42.0 % 02/24/2024 2:50 PM EST [facility] 56-02 Monocytes % 22.0(H) 1.0 - 11.0 % 02/24/2024 2:50 PM [facility] 56-02 Eosinophils % 1.0 0.0 - 6.0 % 02/24/2024 2:50 PM EST [facility] 56-02 Basophils % 1.0 0.0 - 2.0 % 02/24/2024 2:50 PM EST [facility] 56-02 Absolute Neutrophils 0.39(L) 1.80 - 7.70 K/uL 02/24/2024 2:50 PM [facility] 56-02 Absolute Lymphocytes 0.25(L) 1.00 - 4.80 K/uL 02/24/2024 2:50 PM [facility] 56-02 Absolute Monocytes 0.18 0.00 - 1.10 K/uL 02/24/2024 2:50 PM [facility] 56-02 Absolute Eosinophils 0.01 0.00 - 0.70 K/uL 02/24/2024 2:50 PM [facility] 56-02 Absolute Basophils 0.01 0.00 - 0.20 K/uL 02/24/2024 2:50 PM [facility] 56-02 nRBCs 02/24/2024 2:50 PM [facility] 56-02 Blood Venous blood specimen / Unknown Central Line / Unknown 02/24/2024 2:33 PM EST 02/24/2024 2:36 PM EST Marimar Del Castillo MD LAB BLOOD ORDERABLES Fin al Result [facility] 56-02 [address] [place] [address] * DIFFERENTIAL, AUTOMATED (02/24/2024 2:33 PM EST) Blood Venous blood specimen / Unknown Central Line / Unknown 02/24/2024 2:33 PM EST 02/24/2024 2:36 PM EST Marimar Del Castillo MD LAB BLOOD ORDERABLES Fin al Result [facility] 56 [address] [place] [address] * (ABNORMAL) CBC (02/24/2024 2:33 PM EST) WBC 0.84(LL) 4.00 - 10.80 K/uL 02/24/2024 2:50 PM EST [facility] 56 RBC 2.55 4.50 - 5.25 M/uL 02/24/2024 2:50 PM EST [facility] 56 HGB 7.1(L) 14.0 - 16.8 g/dL 02/24/2024 2:50 PM EST [facility] 56 HCT 22.3(L) 40.0 - 48.4 % 02/24/2024 2:50 PM EST [facility] 56 MCV 87.5 82.0 - 99.5 fL 02/24/2024 2:50 PM EST [facility] 56 MCH 27.8 27.0 - 34.0 pg 02/24/2024 2:50 PM EST [facility] 56 MCHC 31.8 32.0 - 36.0 g/dL 02/24/2024 2:50 PM EST [facility] 56- RDW 15.0 11.5 - 15.5 % 02/24/2024 2:50 PM EST [facility] 56 PLT 182 140 - 400 K/uL 02/24/2024 2:50 PM EST [facility] 56 MPV 8.5 6.6 - 11.1 fL 02/24/2024 2:50 PM EST [facility] 56 Blood Venous blood specimen / Unknown Central Line / Unknown 02/24/2024 2:33 PM EST 02/24/2024 2:36 PM EST Marimar Del Castillo MD LAB BLOOD ORDERABLES Fin al Result [facility] [address] [place] [address] * (ABNORMAL) COMPREHENSIVE METABOLIC PANEL (02/24/2024 2:33 PM EST) Pathologist [facility] BUN 23(H) 6 - 20 mg/dL 02/24/2024 3:39 PM [facility] 56 CREATININE 0.9 0.6 - 1.2 mg/dL 02/24/2024 3:39 PM [facility] 56 EGFR 87 >=60 mL/min 02/24/2024 3:39 PM [facility] 56 Comment:eGFR is calculated b ased on the CKD-EPI 2020 equation. SODIUM 129(L) 135 - 146 mmol/L 02/24/2024 3:39 PM [facility] 56 POTASSIUM 4.3 3.5 - 5.1 mmol/L 02/24/2024 3:39 PM [facility] 56 CHLORIDE 95(L) 98 - 107 mmol/L 02/24/2024 3:39 PM [facility] 56 CO2 22 22 - 32 mmol/L 02/24/2024 3:39 PM [facility] 56 ANION GAP 12 7 - 15 mmol/L 02/24/2024 3:[address] GLUCOSE 133(H) 70 - 120 mg/dL 02/24/2024 3:39 PM [facility] 56 Albumin 2.5(L) 3.8 - 5.0 g/dL 02/24/2024 3:39 PM [facility] 56 AST 129(H) 10 - 50 U/L 02/24/2024 3:39 PM [facility] 56 Alkaline Phosphatase 426(H) 35 - 130 U/L 02/24/2024 3:39 PM [facility] 56 Bilirubin, Total 1.0 <=1.2 mg/dL 02/24/2024 3:39 PM [facility] 56 CALCIUM 8.6 8.4 - 10.2 mg/dL 02/24/2024 3:39 PM [facility] 56 Protein 5.3(L) 6.0 - 8.3 g/dL 02/24/2024 3:39 PM [facility] 56 ALT 137(H) 10 - 50 U/L 02/24/2024 3:39 PM [facility] 56 Blood Venous blood specimen / Unknown Central Line / Unknown 02/24/2024 2:33 PM EST 02/24/2024 2:36 PM EST Marimar Del Castillo MD LAB BLOOD ORDERABLES Fin al Result Performing Organization Address City/[facility]/ZIP Co de Phone Number [facility] [address] [place] [address] * MAGNESIUM (02/24/2024 2:33 PM EST) Magnesium 1.7 1.5 - 2.6 mg/dL 02/24/2024 3:39 PM EST [facility] 56- Blood Venous blood specimen / Unknown Central Line / Unknown 02/24/2024 2:33 PM EST 02/24/2024 2:36 PM EST Marimar Del Castillo MD LAB BLOOD ORDERABLES Fin al Result Performing Organization Address [facility] de Phone Number [facility] [address] [place] [address] documented in this encounter Visit Diagnoses Diagnosis Dehydration- Primary 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) Malignant neoplasm of 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) Pancreatic mass Unspecified disease of pancreas Liver mass Unspecified disorder of liver documented in this encounter Administered Medications Active Administered Medications - up to 3 most recent administrations Medication Order MAR Action Action Date Dose Rate Site hEParin 100 UNIT/ML Lock Flush inj 500 Units 500 Units (5 mL), IV Lock, PRN Other, IV Flush, Starting on 02/24/24 at 1432, Until Sat02/25/24 at 1431, For 24 hours, Do not flush if lock, PICC, or central line not in place; IV infusing or unable to flush.Indications:Dehydration,M alignant neoplasm of head of pancreas (HCC),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),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) Given 02/24/2024 4:44 PM EST 500 Units sodium chloride 0.9 % flush central line 10 mL 10 mL, IV Push, PRN Other, IV Flush, Starting on Sat02/24/24 at 1432, Until Tu02/25/24 at 1431, For 24 hours, Do not flush if lock, PICC, or central line not in place; IV infusing or unable to flush.Indications:Dehydration,M alignant neoplasm of head of pancreas (HCC),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),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 No Care Teams Tsa Screener Relationship Specialty Start Date End Date Pedro Luis Bowens DO [address] [facility] [place] [address] PCP - General Internal Medicine 09/09/23 documented as of this encounter
--- OUTSIDE RECORDS SUMMARY | 2024-02-27 09:29 | External Medical Summary | Summary of Care ---
Author Name Unknown Organization [facility] Address [address] [place] [address] Phone [phone] Care Team Providers Care Spar Machine Operator Name Role Phone Pedro Luis Bowens DO Primary Care Provider [phone] Reason for Visit * Reason Onset Date Comments Emergency Department Follow-Up 02/24/2024 1 04/26 Encounter Details Date Type Department Care Team (Late st Contact Info) Description 02/24/2024 Telephone Family Practice [facility] [address] [place] [address] Pedro Luis Bowens DO [address] [place], [place] [phone] Emergency Department Follow-Up (02/23) Allergies Active Allergy [...] Cap by mouth daily before breakfast. Active [employer] Labsuch Ultra 2 w/Device KitIndications: Type 2 diabetes [...] Release 12 HourIndications :Coronary artery disease of havasupai artery of havasupai heart with stable angina pectoris (HCC) TAKE [...] goal of less than 7.0% ([facility]) Take 1 Tablet by mouth [...] Encounter for antineoplastic chemotherapy 2023 Atherosclerosis of havasupai ar teries of extremities with rest pain, bilateral legs 11/08/2023 Pulmonary hypertension, unspecified 07/17/2022 B12 deficiency 03/22/2022 Moderate aortic stenosis 11/28/2021 Occupational exposure to noise 09/27/2020 Coronary artery disease of n ative artery of havasupai heart with stable angina pectoris 09/17/2019 Gastroesophageal [...] Per HTN Protocol #27. [employer] Other*[id number] 09/23/2009 05/01/2016 Overview (09/23/2009): Study Titile: Genomic Markers for Patients with Cardiovascular Disease Project #[id number] PI: Estela Sandoval MD Please call [phone] with study related questions Dyslipidemia, goal LDL [...] No 03/21/2023 Does the household have a caro centerr source of income? (Household - for [...] encounter Miscellaneous Notes * Telephone Encounter - Pedro Luis Bowens DO - 02/24/2024 12:18 PM EST Agree with office visit. * Telephone Encounter - Leigh Ann Alejandra OSA - 02/24/2024 11:57 AM EST Appt added tomorrow per message. * Telephone Encounter - Linda Burkett LPN - 02/24/2024 11:32 AM EST The patient was contacted in regards to their recent: Emergency Department visit Did patient call the office before going to ER: No When was patient seen: 02/22/2024 Which ED: [facility] What were they seen for: Sore [...] afternoon. Please advise with any additional recommendations. manager desktop - please place on Dr. Bowens schedule tomorrow, 02/24 at 4:20. Thank you. documented in this encounter Plan of Treatment Upcoming Encounters Date Type Department Care Team (Latest Contact Info) Description 4 1:30 PM EST Telemedicine Family Practice [facility] 293 [facility], [place] [phone] College, Pharmacist [address], [place] [address] 4 4:20 PM EST Office Visit Family Practice [facility] [phone] Pedro Luis Bowens, 293 [facility], [place] [address] 4 9:20 AM EST Office Visit Family [facility] [address] [facility] [place] [address] Pedro Luis Bowens, DO [address] [place] [address] 4 8:40 AM EST Office Visit Family Practice [facility] [address] [facility] [place] [address] Pedro Luis Bowens, DO [address] [place] [address] 5 8:00 AM EST Hospital Encounter ENDO [facility], Endoscopy Room [facility] [address] [place] [address] Jose E Bai MD [address] [facility] [place] [address] 5 8:00 AM EST - 5 8:45 AM EST Surgery ENDO [facility], Endoscopy Room [facility] [address] [place] [phone] Jose E Bai MD [address] [facility] [place] [address] ENDOSCOPIC RETROGRADE CHOLANGIOPANCREATOGRAPHY (ERCP) DIAGNOSTIC Scheduled Procedures Name Priority Associated Diagnoses Date/Ti oh ENDOSCOPIC RETROGRADE CHOLANGIOPANCREATOGRAPHY (ERCP) DIAGNOSTIC Pancreatic mass Liver mass 04/21/2024 8:00 AM EST ENDOSCOPIC RETROGRADE CHOLANGIOPANCREATOGRAPHY (ERCP) W/STENT REMOVAL AND EXCHANGE; INC DILATION, GUIDE WIRE AND SPHINCTEROTOMY Pancreatic mass Liver mass 04/21/2024 8:00 AM EST Health Maintenance Due Date Last Done Comments Adult Wellness Visit 12/15/2021 12/15/2020 Depression Screening 03/21/2024 03/21/2023 HbA1c 05/10/2024 11/08/2023, 0411/2023, 03/21/2023, Additional history exists Albumin/Creatinine Ratio 07/11/2024 [...] this encounter Medical Devices Implanted Type Area Solid Waste Collection Worker Device Identifier Shelf Expiration Date Model / Serial / Lot Stent Bili Duodenal [id number] - [id number] Implanted:Qty: 1 on 01/16/2024 by Jose E Bai MD at ENDOSCOPY [facility] N/A: Stomach [employer] 12/02/2025 [id number] / / [id number] documented as of this encounter Advance Directives [...] Power of Attor ila? No Care Teams Spar Machine Operator Relationship Specialty Start Date End Date Pedro Luis Bowens DO [address] [place] [address] PCP - General Internal Medicine 09/09/23 documented as of this encounter
--- OUTSIDE RECORDS SUMMARY | 2024-02-27 09:29 | External Medical Summary ---
Author Name Unknown Address Unknown Organization K09:[facility] [address] Laboratory Report Ordering Provider Test Date Status ROSARIO STRAUSS 02/24/2024 14:33:23 Final Observation Date Value Abnormality Reference (Units ) Status Magnesium 02/24/2024 14:33:23 1.7 1.5-2.6 (m g/dL) Final Performing Location [facility] [place] [address]
--- OUTSIDE RECORDS SUMMARY | 2024-02-27 09:30 | External Medical Summary ---
Author Name Unknown Address Unknown Organization K09:[facility] [address] [place] [address] Laboratory Report Ordering Provider Test Date Status ROSARIO STRAUSS 02/24/2024 14:33:23 Final Observation Date Value Abnormality Reference (Units ) Status BUN 02/24/2024 14:33:23 23 Above high normal 6-20 (mg/dL) Final Creatinine 02/24/2024 14:33:23 0.9 0.6-1.2 (mg/dL) Final Glomerular filtration rate/1.73 sq M.predicted [Volume Rate/Area] in Serum, Plasma or Blood by Creatinine-based formula (CKD-EPI) 02/24/2024 14:33:23 87 >=60 (mL/min) Final eGFR is calculated based on the CKD-EPI 2020 equation. Sodium 02/24/2024 14:33:23 129 Below low normal 135 -146 (mmol/L) Final Potassium 02/24/2024 14:33:23 4.3 3.5-5.1 (m mol/L) Final Cl 02/24/2024 14:33:23 95 Below low normal 98- 107 (mmol/L) Final CO2 02/24/2024 14:33:23 22 22-32 (mmo l/L) Final Anion gap 02/24/2024 14:33:23 12 7-15 (mmol /L) Final Glucose 02/24/2024 14:33:23 133 Above high normal 70 -120 (mg/dL) Final Albumin 02/24/2024 14:33:23 2.5 Below low normal 3.8 -5.0 (g/dL) Final AST (Aspartate aminotransferase) 02/24/2024 14:33:23 129 Above high normal 10-50 (U/L) Final Alk Phos 02/24/2024 14:33:23 426 Above high normal 35 -130 (U/L) Final Bilirubin, Total 02/24/2024 14:33:23 1.0 <=1 .2 (mg/dL) Final Calcium 02/24/2024 14:33:23 8.6 8.4-10.2 ( mg/dL) Final Protein 02/24/2024 14:33:23 5.3 Below low normal 6.0 -8.3 (g/dL) Final ALT (Alanine aminotransferase) 02/24/2024 14:33:23 137 Above high normal 10-50 (U/L) Final Performing Location [facility] [address]
--- NOTE | 2024-02-27 10:38 | Hospitalist Progress Note ---
Date of Service February 27, 2024 Assessment & Plan (1) COVID-19: Plan: Patient is clinically stable, has no respiratory issues, per recommendation by infectious disease, will complete the treatment with remdesivir after 3 days, today will be the third day and so we will from now on will only complete 10 more days of Decadron. (2) Pancytopenia: Plan: After transfusion and a dose of G-CSF , he has pancytopenia has improved, WBC count is 15.2 today, hemoglobin 10.1 with platelet count of 222. (3) Acute hyponatremia: Plan: At this point I think this is related to hypovolemia, this was considered to be secondary to hypovolemia, patient was managed with IV fluid and IV albumin, serum sodium is 132 today. Hemodynamically patient looks much better. Albumin level jesús to 2.9 from 2.3 yesterday. I would be in favor of continuing albumin for another day. (4) Pancreatic cancer: Plan: This appears end-stage, difficult to get his oncologist who practices at [facility] onboard here to clarify plan of care as patient does not seem to be getting quality life. CODE STATUS was discussed with family and patient will be DNR. (5) Non-ST elevation [place] (NSTEMI): Plan: Troponin started trending down, this is most likely due to demand ischemia, cardiology consult was reviewed. Plan Complete dose of remdesivir today Decadron will be continued for total of 10 days Infectious disease recommended Diflucan to be started for total of 2 weeks which was done and hence nystatin was discontinued. Will transition to Augmentin for total of 5 more days. Plan is for DC home tomorrow. Admission and Anticipated Discharge Date Admission Date: February 25, 2024 Subjective Patient was seen and examined, he looks much better today, more conversant, seems that having better appetite. He is fully awake and more energetic looking. Physical Exam Physical Exam: VITALS: Reviewed. WEIGHT/BMI reviewed, patient is underweight/mild malnutrition GEN: Healthy appearing, well-developed, NAD. PSYCH: Unable to evaluate NECK: Supple, with no masses. CV: RRR, patient has a aortic systolic murmur LUNGS: CTAB, no w/r/c. ABD: Soft, NT/ND, NBS, no masses or organomegaly. : N/A SKIN: Warm, well perfused. No skin rashes or abnormal lesions. Results & Data Results & Data Vital Signs (Past 12 Hours) Vital Signs Temp Pulse Resp BP Pulse Ox O2 Del Method 02/27/24 08:43 36.3 C L 82 17 145/69 H 97 Room Air Laboratory Results Laboratory Results WBC 15.28 K/ul (4.8-10.8) H 02/27/24 08:05 RBC 3.65 M/uL (4.70-6.10) L 02/27/24 08:05 Hgb 10.1 g/dl (14.0-18.0) L 02/27/24 08:05 Hct 30.2 % (42.0-52.0) L 02/27/24 08:05 MCV 82.7 fL (80.0-100.0) 02/27/24 08:05 MCH 27.7 pg (25.0-34.0) 02/27/24 08:05 MCHC 33.4 g/dL (32.0-36.0) 02/27/24 08:05 RDW Std Deviation 45.3 fL (36.4-46.3) 02/27/24 08:05 RDW Coeff of Loli 14.9 % (11.5-14.5) H 02/27/24 08:05 Plt Count 222 K/uL (130-400) 02/27/24 08:05 MPV 9.6 fL (9.4-12.4) 02/27/24 08:05 Immature Gran % (Auto) 7.6 % 02/27/24 08:05 Neut % (Auto) 69.6 % 02/27/24 08:05 Lymph % (Auto) 4.9 % 02/27/24 08:05 [place] % (Auto) 17.0 % 02/27/24 08:05 Eos % (Auto) 0.1 % 02/27/24 08:05 Baso % (Auto) 0.8 % 02/27/24 08:05 Neut # (Auto) 10.64 K/uL (1.40-6.50) H 02/27/24 08:05 Lymph # (Auto) 0.75 K/uL (1.20-3.40) L 02/27/24 08:05 [place] # (Auto) 2.60 K/uL (0.11-0.59) H 02/27/24 08:05 Eos # (Auto) 0.01 K/uL (0.00-0.50) 02/27/24 08:05 Baso # (Auto) 0.12 K/uL (0.00-0.20) 02/27/24 08:05 Immature Gran # (Auto) 1.16 K/uL (0.01-0.20) H 02/27/24 08:05 Absolute Nucleated RBC 0.13 K/uL (0.00-0.12) H 02/27/24 08:05 Nucleated RBC % (auto) 0.9 % 02/27/24 08:05 Neutrophils % (Manual) 19 % 02/25/24 13:43 Lymphocytes % (Manual) 16 % 02/25/24 13:43 Monocytes % (Manual) 60 % 02/25/24 13:43 Metamyelocytes % (Man) 4 % 02/25/24 13:43 Blast Cells % (Manual) 1 % 02/25/24 13:43 Neutrophils # (Manual) 0.22 K/uL (1.40-6.50) L 02/25/24 13:43 Total Absolute Neuts 0.22 K/uL (1.4-6.5) L* 02/25/24 13:43 Lymphocytes # (Manual) 0.19 K/uL (1.2-3.4) L 02/25/24 13:43 Total Abs Lymphocytes 0.19 K/uL (1.2-3.4) L 02/25/24 13:43 Monocytes # (Manual) 0.70 K/uL (0.11-0.59) H 02/25/24 13:43 Metamyelocytes # (Man) 0.05 K/uL (0-0) H 02/25/24 13:43 Blast Cells # (Man) 0.01 K/uL (0-0) H 02/25/24 13:43 Blood Smear Review 02/25/24 13:43 Toxic Granulation 1+ 02/27/24 08:05 Polychromasia 1+ 02/27/24 08:05 Echinocytes 3+ 02/27/24 08:05 Schistocytes Occasional 02/25/24 13:43 PT 14.7 Seconds (9.0-12.0) H 02/25/24 13:43 INR 1.4 (0.9-1.1) H 02/25/24 13:43 APTT 36 Seconds (21-31) H 02/25/24 13:43 PTT Ratio 1.3 02/25/24 13:43 Sodium 132 mmol/L (136-145) L 02/27/24 08:05 Potassium 3.6 mmol/L (3.5-5.1) 02/27/24 08:05 Chloride 103 mmol/L (98-107) 02/27/24 08:05 Carbon Dioxide 21 mmol/L (21-32) 02/27/24 08:05 Anion Gap 8 (3-11) 02/27/24 08:05 BUN 26 mg/dl (6-23) H 02/27/24 08:05 Creatinine 0.82 mg/dl (0.6-1.4) 02/27/24 08:05 Est Cr Clr Drug Dosing 65.9 ml/min 02/27/24 08:05 eGFR 89.36 02/27/24 08:05 BUN/Creatinine Ratio 31.7 (10-20) H 02/27/24 08:05 Glucose 157 mg/dl (70-99(Fasting)) H 02/27/24 08:05 Osmolality 274 mOsm/kg (280-300) L 02/25/24 19:02 Lactate 1.4 mmol/L (0.4-2.0) 02/25/24 19:02 Calcium 8.1 mg/dl (8.6-10.3) L 02/27/24 08:05 Magnesium 1.7 mg/dl (1.7-2.4) 02/25/24 13:43 Total Bilirubin 1.3 mg/dl (0.2-1.0) H 02/27/24 08:05 AST 36 U/L (13-39) 02/27/24 08:05 ALT 48 U/L (7-52) 02/27/24 08:05 Alkaline Phosphatase 240 U/L (34-104) H 02/27/24 08:05 Troponin I High Sens 714.2 pg/ml (0-20) H* D 02/26/24 08:32 Total Protein 5.2 gm/dl (6.0-8.3) L 02/27/24 08:05 Albumin 2.9 gm/dl (3.4-5.0) L 02/27/24 08:05 Globulin 2.3 gm/dl (2.5-4.0) L 02/27/24 08:05 Albumin/Globulin Ratio 1.3 (0.9-2) 02/27/24 08:05 Lipase 3 U/L (11-82) L 02/25/24 13:43 Procalcitonin 1.50 ng/ml (0-0.5) H 02/25/24 13:43 Urine Color Dark Yellow 02/25/24 21: Urine Appearance Clear (Clear) 02/25/24 21: Urine pH 5.0 (4.5-7.5) 02/25/24 21: Ur Specific [place] 1.030 (1.000-1.030) 02/25/24 21: Urine Protein 1+ (Negative) H 02/25/24 21: Urine Glucose (UA) Negative (Negative) 02/25/24 21: Urine Ketones Trace (Negative) H 02/25/24 21: Urine Blood Negative (Negative) 02/25/24 21: Urine Nitrite Positive (Negative) A 02/25/24 21: Urine Bilirubin 1+ (Negative) H 02/25/24 21: Urine Urobilinogen Negative (Negative) 02/25/24 21: Ur Leukocyte Esterase 1+ (Negative) H 02/25/24 21:21 Urine WBC (Auto) 0-5 /hpf (0-5) 02/25/24 21: Urine RBC (Auto) 0-2 /hpf (0-2) 02/25/24 21: U Hyaline Cast (Auto) 6-10 /lpf (0-2) H 02/25/24 21:21 U Epithel Cells (Auto) 0-2 /hpf (0-2) 02/25/24 21: Urine Bacteria (Auto) None Seen (None Seen) 02/25/24 21: Urine Sperm Present (None Prsent) A 02/25/24 21: Urine Osmolality 550 mOsm/kg (500-800) 02/26/24 Unknown Ur Random Sodium < 10 mmol/L 02/26/24 00:43 Nasal Screen MRSA (PCR) Negative (Negative) 02/25/24 21: Adenovirus (PCR) Not Detected (NotDetected) 02/25/24 15:12 B. pertussis DNA (PCR) Not Detected (NotDetected) 02/25/24 15:12 B.parapertussis DNA PCR Not Detected (NotDetected) 02/25/24 15:12 C. pneumoniae DNA (PCR) Not Detected (NotDetected) 02/25/24 15:12 Coronavirus OC43 (PCR) Not Detected (NotDetected) 02/25/24 15:12 Coronavirus HKU1 (PCR) Not Detected (NotDetected) 02/25/24 15:12 Coronavirus 229E (PCR) Not Detected (NotDetected) 02/25/24 15:12 SARS-CoV-2 (PCR) DETECTED (NotDetected) A 02/25/24 15:12 Coronavirus NL63 (PCR) Not Detected (NotDetected) 02/25/24 15:12 Human Metapneumovir PCR Not Detected (NotDetected) 02/25/24 15:12 Influenza Type A (PCR) Not Detected (NotDetected) 02/25/24 15:12 Influenza Type B (PCR) Not Detected (NotDetected) 02/25/24 15:12 M. pneumoniae (PCR) Not Detected (NotDetected) 02/25/24 15:12 Parainfluenza 1 (PCR) Not Detected (NotDetected) 02/25/24 15:12 Parainfluenza 2 (PCR) Not Detected (NotDetected) 02/25/24 15:12 Parainfluenza 3 (PCR) Not Detected (NotDetected) 02/25/24 15:12 Parainfluenza 4 (PCR) Not Detected (NotDetected) 02/25/24 15:12 RSV (PCR) Not Detected (NotDetected) 02/25/24 15:12 Entero/Rhino (PCR) Not Detected (NotDetected) 02/25/24 15:12 Blood Type A Positive 02/25/24 15:13 Antibody Screen NEGATIVE 02/25/24 15:13 Crossmatch See Detail 02/25/24 15:13 Impressions Chest X-Ray 02/25/24 14:38 XR chest 1V portable HISTORY: 78 years-old Male weakness COMPARISON: 02/07/2024 TECHNIQUE: AP view of the chest FINDINGS: Cardiac silhouette is enlarged. Median sternotomy with mediastinal surgical clips. Right IJ Meqmhx-x-Vvlt catheter redemonstrated. No pneumothorax or large pleural effusion. Chronic interstitial coarsening. Partially imaged right upper quadrant biliary stent. Degenerative changes of the shoulders and spine. IMPRESSION: 1. Cardiomegaly without overt pulmonary edema. 2. Chronic interstitial coarsening. ACT 112: Negative or not required by law. The above report was generated using voice recognition software. It may contain grammatical, syntax or spelling errors. Electronically signed by: Manuel Calderon M.D. 02/25/2024 2:[address] 02/25/24 15:05 EXAMINATION: Head CT without CLINICAL HISTORY: Fall, hit head, on Plavix PRIORS: None TECHNIQUE: Contiguous axial images were obtained through the head without the use of intravenous contrast. Sagittal and coronal reformations are supplied. FINDINGS: Age appropriate parenchymal volume is noted. Scattered periventricular lucencies present in the deep white matter representing small vessel occlusive disease. Pretty-white differentiation is preserved. No edema or midline shift. No intra-axial or extra-axial hemorrhage. Ventricles are normal in size and configuration. Brainstem and cerebellum have a normal appearance. Calvarium unremarkable. Paranasal sinuses and mastoid air cells are well-pneumatized. Globes are intact. No retrobulbar abnormality. IMPRESSION: No CT evidence of an acute intracranial abnormality. Electronically signed by Yanci Hernández 02-25-2024 4:27 PM Medications Administered Current Inpatient Medications Acetaminophen (Acetaminophen 325 Mg Tab) 650 mg PO Q4H PRN PRN Reason: pain/fever Stop: 03/26/24 19:11 Enoxaparin Sodium (Enoxaparin Inj 40 Mg/0.4 Ml Syr) 40 mg SQ Q24H ALESSANDRO Stop: 03/26/24 19:29 Last Admin: 02/26/24 20:40 Dose: 40 mg Fluconazole (Fluconazole Susp 200 Mg/5 Ml Udp) 200 mg PO QAM ALESSANDRO Stop: 03/08/24 08:59 Last Admin: 02/27/24 08:51 Dose: 200 mg Remdesivir 100 mg/ Sodium (Chloride) 250 mls @ 250 mls/hr IV Q24H ALESSANDRO Stop: 02/29/24 20:59 Last Infusion: 02/26/24 21:59 Dose: Infused Cefepime HCl (Maxipime 2000mg) 2,000 mg in 20 mls @ 5 mls/min IV Q12H ALESSANDRO; Protocol Stop: 02/27/24 19:59 Last Admin: 02/27/24 08:37 Dose: 5 mls/min Albumin Human (Albumin 25%) 25 gm in 100 mls @ 50 mls/hr IV Q8H ALESSANDRO Stop: 02/29/24 11:59 Last Infusion: 02/27/24 10:04 Dose: Infused Ondansetron HCl (Ondansetron Inj 2 Mg/Ml 2 Ml Vial) 4 mg IV Q6H PRN PRN Reason: Nausea Stop: 03/26/24 19:11 Last Admin: 02/26/24 13:28 Dose: 4 mg (4) Pancreatic cancer Pancreatic malignancy location: other parts of pancreas Qualified Code(s): C25.7 - Malignant neoplasm of other parts of pancreas
[2024-02-27] MEDS: dexAMETHasone 1 MG TAB PO SCH (11:40)
[2024-02-27] MEDS ORDERED: BENZOCAINE 20% SPRY 85 APPLN/85 GM CAN EXT PRN (17:23)
[2024-02-27] MEDS: AMOXICILLIN/CLAVULANATE 875 MG TAB PO SCH (18:32)
[2024-02-27] MEDS: BENZOCAINE 20% (ORAJEL) 11.9 GM TUBE MT PRN (19:44)
[2024-02-27 19:49] VITALS: RESP 18; O2SAT 98
[2024-02-28] MEDS: guaiFENesin/CODEINE 100MG/10MG 5ML UDC PO PRN (00:34)
--- OUTSIDE RECORDS SUMMARY | 2024-02-28 05:59 | External Medical Summary | Summary of Care ---
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 Name Role Phone Pedro Luis Bowens DO Primary Care Provider [phone] Reason for Visit * Reason Onset Date Comments Advice 02/25/2024 Encounter Details Date Type Department Care Team (Late st Contact Info) Description 02/25/2024 Telephone Family Practice [address] [facility] [address] [place] [phone] Pedro Luis Bowens, [address] [place] [address] Advice Allergies Active Allergy Reactions Criticality Noted Date [...] Release 12 HourIndications :Coronary artery disease of [place] artery of [place] heart with stable angina pectoris (HCC) TAKE [...] Encounter for antineoplastic chemotherapy 2023 Atherosclerosis of [place] ar teries of extremities with rest pain, bilateral legs 11/08/2023 Pulmonary hypertension, unspecified 07/17/2022 B12 deficiency 03/22/2022 Moderate aortic stenosis 11/28/2021 Occupational exposure to noise 09/27/2020 Coronary artery disease of [place] artery of [place] heart with stable angina pectoris 09/17/2019 Gastroesophageal [...] Per HTN Protocol #27. [employer] Other*[id number] 09/23/2009 05/01/2016 Overview (09/23/2009): Study Titile: Genomic Markers for Patients with Cardiovascular Disease Project #[id number] PI: Estela Sandoval MD Please call [phone] with study related questions Dyslipidemia, goal LDL [...] No 03/21/2023 Does the household have a [facility] source [facility] income? (Household - for [...] encounter Miscellaneous Notes * Telephone Encounter - Consuelo Howard RN - 02/25/2024 12:24 PM EST Pt calling in-states his BP was 88/39-he feels very weak and dizzy. Fell this AM-went to get up outof his recliner and fell forward-hitting his head on floor- no LOC. Had to call family to help him get up. He vomited x 1 today after drinking a Boost. He has had diarrhea on and off-using imodium. Was at oncology yesterday-unable to get his treatment-BP was 90/something-they gave him some saline fluids. Pt did not take his atenolol this AM. He was seen in ER 1130 for thrush. Pt states he is too weak to come to office Spoke with Dr Bowens-pt needs to go to the ER. Pt notified and agreeable. Denies need to call for ambulance-his family will. documented in this encounter Plan of Treatment Upcoming Encounters Date Type Department Care Team (Latest Contact Info) Description 4 1:30 PM EST Telemedicine Family Practice [address] [place] [address], [place] [phone] College, Pharmacist [address] [place] [address], [place] [address] Arrived 4 4:20 PM EST Office Visit Family Practice [address] [place] [address], [place] [phone] Pedro Luis Bowens, [address] [facility] [place] [address] 4 11:00 AM EST Scheduled Telephone Family Practice [address] [place] [address], [place] [phone] Consuelo Howard, SHILPA [address] [place] [address], [place] [address] 4 12:30 PM EST Laboratory Laboratory [facility] [address] [facility] [place] [phone] [facility] Lab [facility] [address] [facility] [place] [address] 4 1:00 PM EST Office Visit Hematology/Onco logy [facility] [place] [address] [place] [phone] Marimar Del Castillo MD [address] [facility] [place] [address] 4 1:30 PM EST Hem/Onc Treatment Hematology/Onco logy Treatment, [place] [address] [place] [phone] Marycarmen, Chair [address] [place] [address] 4 9:20 AM EST Office Visit [address] [place] [address] Pedro Luis Bowens, DO [address] [facility] [place] [address] 4 8:40 AM EST Office Visit [address] [place] [address] Pedro Luis Bowens, DO [address] [facility] [place] [address] 5 8:00 AM EST Hospital Encounter ENDO OSS, Endoscopy Room [facility] [address] [place] [phone] Jose E Bai MD [address] [place] [address] 5 8:00 AM EST - 5 8:45 AM EST Surgery ENDO OSS, Endoscopy Room [facility] [address] [place] [phone] Jose E Bai MD [address] [place] [address] ENDOSCOPIC RETROGRADE CHOLANGIOPANCREATOGRAPHY (ERCP) DIAGNOSTIC Scheduled Procedures Name Priority Associated Diagnoses Date/Ti ca ENDOSCOPIC RETROGRADE CHOLANGIOPANCREATOGRAPHY (ERCP) DIAGNOSTIC Pancreatic mass [...] this encounter Medical Devices Implanted Type Area Slitter And Rewinder Device Identifier Shelf Expiration Date Model / Serial / Lot Stent Bili Duodenal [id number] - [id number] Implanted:Qty: 1 on 01/16/2024 by Jose E Bai MD at ENDOSCOPY [facility] N/A: Stomach [employer] 12/02/2025 [id number] / / [id number] documented as of this encounter Advance Directives [...] Power of Attor ila? 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
[2024-02-28 08:12] VITALS: BP 147/69; TEMP 97.3
--- NOTE | 2024-02-28 09:14 | Discharge Summary ---
Discharge Summary Date of Service February 28, 2024 Principal Dx & Hospital Course #1 = Principal Diagnosis (1) COVID-19: (2) Pancytopenia: (3) Acute hyponatremia: (4) Pancreatic cancer: (5) Non-ST elevation [place] (NSTEMI): Notes For Next Care Provider Medication Changes From Visit Augmentin 1 g twice daily for 5 days Diflucan 200 mg daily for 14 days Decadron 6 mg daily for 6 days Admission HPI Per Admitting Provider Patient is a 78-year-old gentleman with history of metastatic pancreatic cancer with chronic pancytopenia, history of coronary artery disease status post CABG currently under chemotherapy for which he has not been able to complete because of recurrent illnesses. Family stated that patient developed generalized weakness since this morning and they decided to bring the patient to the hospital. Patient is obtunded but arousable, denies having any new symptom besides weakness.Workup revealed numerous abnormalities including him being positive for COVID 19 although chest x-ray was negative for any infiltrate and patient did not have any hypoxemic respiratory failure, hemoglobin was found to be 7.3, patient did have elevated troponin of up to 1000 with some new anterolateral T inversions of changes which is new. His procalcitonin was found to be 1.5 and his sodium was found to be found to be 129. Patient was transfused and received 1 dose of G-CSF with improvement in his WBC count and all other hematological indicis, patient was treated initially with cefepime transitioned to Augmentin later after 3 days, also placed on fluconazole 200 mg daily per infectious disease consult recommendation. Patient completed 3 days of remdesivir per ID consult recommendations well. Patient was seen and examined today, he continued to do well, he was actually thinking about going home yesterday however we decided to keep him another day just to watch him for 1 more day, he was seen and examined today, he is doing much better, he is ready to be discharged and he is in agreement with the plan. He will have 2 more weeks of fluconazole 200 mg daily, 5 more days of Augmentin 1 g twice daily and 6 days of Decadron 6 mg daily. All questions answered. Discharge Exam VITALS: Reviewed. WEIGHT/BMI reviewed, patient is underweight/mild malnutrition GEN: Healthy appearing, well-developed, NAD. CV: RRR, patient has a aortic systolic murmur LUNGS: CTAB, no w/r/c. ABD: Soft, NT/ND, NBS, no masses or organomegaly. : N/A SKIN: Warm, well perfused. No skin rashes or abnormal lesions. Updated Medication List Medication Instructions Recorded Confirmed Type multivitamin (Multiple Vitamins 1 tab PO QPM 12/02/18 02/25/24 History tablet) atorvastatin 80 mg tablet 80 mg PO QPM 01/06/19 02/25/24 History cholecalciferol (vitamin D3) 50 2,000 units PO QAM 01/06/19 02/25/24 History mcg (2,000 unit) tablet clopidogrel 75 mg tablet 75 mg PO QAM 01/06/19 02/25/24 History ezetimibe 10 mg tablet 10 mg PO HS 01/06/19 02/25/24 History metformin 500 mg tablet 500 mg PO .COMPLEX 01/06/19 02/25/24 History nitroglycerin 0.4 mg sublingual 0.4 mg sublingual Q5M PRN Chest 01/06/19 02/25/24 History tablet Pain #1 tab ranolazine 1,000 mg 1,000 mg PO Q12H #180 tabs 01/06/19 02/25/24 History tablet,extended release,12 hr triamcinolone acetonide 0.1 % 1 appln topical BID PRN Rash 01/06/19 02/25/24 History topical cream tamsulosin 0.4 mg capsule 0.4 mg PO BID #180 caps 12/03/19 02/25/24 Rx fluticasone propionate 50 1 spray intranasal DAILY 03/16/20 02/25/24 History mcg/actuation nasal spray,suspension albuterol sulfate 90 mcg/actuation 2 inh inhalation Q6H PRN SOB 09/17/22 02/25/24 History breath activated powder inhaler atenolol 50 mg tablet 50 mg PO QAM 03/14/23 02/25/24 History pantoprazole 20 mg tablet,delayed 20 mg PO QAM 01/30/24 02/25/24 History release oxycodone-acetaminophen 5 mg-325 1 tab PO Q6H PRN pain #14 tabs 02/03/24 02/25/24 Rx mg tablet (Percocet) L.acidoph-L.rhamn-B.bifidum-B.long 1 tab PO DAILYBB 02/07/24 02/26/24 History 12.9 mg (2 billion cell) tablet aspirin 81 mg tablet,delayed 81 mg PO QPM 02/07/24 02/25/24 History release cyanocobalamin (vitamin B-12) 1,000 mcg IM .EVERY 30 DAYS 02/07/24 02/25/24 History 1,000 mcg/mL injection solution docusate sodium 100 mg capsule 100 mg PO BID 02/07/24 02/26/24 History iron,carbonyl 65 mg-vitamin C 125 1 tab PO Q OTHER DAY 02/07/24 02/25/24 History mg tablet,delayed release (Vitron-C) isosorbide mononitrate 60 mg 120 mg PO QAM 02/07/24 02/25/24 History tablet,extended release 24 hr lidocaine-prilocaine 2.5 %-2.5 % 1 applic topical UD 02/07/24 02/25/24 History topical cream ondansetron HCl 8 mg tablet 8 mg PO Q8 PRN Nausea 02/07/24 02/25/24 History polyethylene glycol 3350 17 17 g PO DAILY 02/07/24 02/26/24 History gram/dose oral powder (Miralax) prochlorperazine maleate 10 mg 10 mg PO Q6 PRN Nausea 02/07/24 02/25/24 History tablet magnesium oxide 400 mg (241.3 mg 400 mg PO BID #30 tabs 02/13/24 02/25/24 Rx magnesium) tablet nystatin 100,000 unit/mL oral 5 ml PO QID #473 mL 02/22/24 02/25/24 Rx suspension nystatin 100,000 unit/mL oral 5 ml buccal QID #473 mL 02/22/24 02/25/24 Rx suspension amoxicillin 875 mg-potassium 1 tab PO BIDM #10 tabs 02/28/24 Rx clavulanate 125 mg tablet dexamethasone 1 mg tablet 6 mg (6 x 1 mg) PO DAILY 6 days 02/28/24 Rx #36 tabs fluconazole 40 mg/mL oral 200 mg (5 mL) PO QAM 14 days #70 mL 02/28/24 Rx suspension Hospital Stay Data Consultations 02/25/24 16:46 ED Decision to Admit Stat 02/25/24 17:56 Consult Infectious Diseases Stat 02/25/24 19:12 Consult Cardiology Routine Consult Hematology Routine Diagnostic Imagining Performed 02/25/24 15:05 CT head/brain wo con Stat Pending Results Patient Have Any Pending Studies at Discharge: No Discharge Instructions Given to Patient (Per Discharging Provider) Patient to resume activities prior to current admission Total Time Total Time Spent Total Time Spent (In Minutes): 45 minutes
[2024-02-28 10:52] VITALS: PULSE 91
== END 2024-02-28 13:13 | disposition home health service (06) | DRG 177 ==
LOC: ED 13:27 → EDINP 17:35 → 3W 02-26 19:11

== ENCOUNTER 2024-04-01 11:29 | Inpatient (IN) ==
--- NOTE | 2024-04-01 12:09 | Emergency Department Note ---
Impression & Plan Pneumonia, Anemia, Elevated troponin I level, Acute hyponatremia ED Provider Note NAME: MITCHEL HARMON AGE: 78 SEX: M : 1945 ARRIVES VIA: Walk-In INFORMANT: Patient, ED PROVIDER(S): Matt Lim DO CHIEF COMPLAINT: Weakness HPI: The patient is a 78-year-old male who has a history of pancreatic cancer who presented to the emergency department for an evaluation of generalized weakness. The patient has not been feeling well. He was recently admitted to our facility for an infection. He had COVID-19. The patient was at his family doctor's office today. He explained that he was having trouble breathing and weakness. He had a chest x-ray that did reveal signs of possible pneumonia. He was sent to the emergency department for further evaluation. ROS: See above HPI for pertinent positives & negatives. A total of 10 systems reviewed and were otherwise negative. PAST MEDICAL HISTORY: See Below PAST SURGICAL HISTORY: See Below FAMILY HISTORY: See Below SOCIAL HISTORY: See Below HOME MEDICATIONS: See Below ALLERGIES: See Below VITALS: See Below PHYSICAL EXAMINATION: GENERAL: The patient is awake and alert. The patient is somewhat frail appearing. EYES: The conjunctivae are clear. The pupils are round and reactive. EARS, NOSE, MOUTH AND THROAT: The nose is without any evidence of any deformity. NECK: The neck is nontender and supple. RESPIRATORY: Diminished breath sounds are noted in the left lung field. There is no tachypnea or conversational dyspnea. CARDIOVASCULAR: Regular rate and rhythm noted there no murmurs rubs or gallops normal S1 normal S2. GASTROINTESTINAL: The abdomen is distended. There is no specific guarding or rigidity noted. Rectal exam was light brown and heme-negative. MUSCULOSKELETAL/EXTREMITIES: There is no evidence of gross deformity full range of motion is noted in the hips and shoulders. SKIN: Pedal edema was noted bilaterally. NEUROLOGIC: Patient is awake alert and oriented x3 MEDICAL DECISION MAKING: The patient is a 78-year-old male who presented to the emergency department for an evaluation of difficulty breathing. The patient's been experiencing weakness difficulty breathing. He saw his family doctor and was felt to have a pneumonia. The patient initially was hypotensive. He was treated with IV fluids in the emergency department. He was also treated with IV antibiotics. He does have recent admission history. He has a history of cancer. I discussed the patient's laboratory and radiographic studies with him. I discussed his condition with the on-call [facility] hospitalist. They have agreed to evaluate the patient in the emergency department. The patient's blood pressure did improve after IV fluids. Triage Nursing notes reviewed. Prior medical records reviewed Vital Signs: reviewed and remarkable for no significant abnormalities Differential diagnosis: Reactive airway disease, pneumonia, pneumothorax, COPD, CHF, infections, cardiac ischemia, pulmonary embolism, musculoskeletal, gastrointestinal, as well as other pathologies. ER treatment provided: See below Diagnostics interpreted by me: ECG: EKG was obtained in the emergency department. My interpretation is normal sinus rhythm at [address] segment depressions were noted. There were no PVCs noted. This was compared to a tracing from February 25, 2024. No changes were noted. Cardiac Monitoring: An order was placed for continuous cardiac monitoring. The monitor shows a rate of 77 bpm with sinus rhythm. Laboratory studies: As stated above and show below. Imaging studies: See below. Radiographic imaging was reviewed by myself Consultation(s): I discussed this case with Dr. Whittington [facility] Past Med/Surg History Problem List (Updated 04/01/24 @ 14:08 by Matt Lim DO) Acute hyponatremia (Acute) Elevated troponin I level (Acute) Anemia (Acute) Pneumonia (Acute) Oropharyngeal candidiasis COVID-19 virus infection Rapidly progressive weakness Elevated troponin Pancytopenia COVID-19 (Acute) Neutropenia (Acute) Acute hyponatremia (Acute) Pancreatic cancer (Acute) Anemia (Acute) Non-ST elevation [place] (NSTEMI) (Acute) Weakness (Acute) S/P coronary artery stent placement Non-ST elevation (NSTEMI) myocardial infarction Abdominal pain Fever (Acute) Pancreatic cancer metastasized to liver (Acute) Acute non-ST elevation myocardial infarction (NSTEMI) (Acute) Abnormal LFTs Severe sepsis Encounter for pre-operative examination Hx of CABG 1999 > 4 vessels > [facility] > follows with Dr. Lunsford Angina pectoris chronic stable class I per cardio Aortic stenosis (Acute) CAD (coronary artery disease) (Acute) Dry skin (Acute) Enlarged prostate with lower urinary tract symptoms (LUTS) (Acute) Former smoker (Acute) GERD (gastroesophageal reflux disease) (Acute) Hypercholesterolemia (Acute) Hypertension (Acute) Nephrolithiasis (Acute) Non Q wave myocardial infarction (Acute) 2002 Shortness of breath (Acute) per pt, uses inhaler in AM and resolved Type 2 diabetes mellitus (Acute) Medical History Pancreatic cancer stage 4; now with mets Hx of renal calculi Dyspnea reason for inhaler, uses every morning Angina pectoris chronic stable class I per cardio; follows closely with [facility] Cardio Non Q wave myocardial infarction 2002; 'questionable per pt' CAD (coronary artery disease) CABG August 1999, LM and LAD stents August 2009, RCA and LAD stents September 2009 Aortic stenosis follows with Dr. Lunsford; mild-mod per 08/27/23 ECHO BPH (benign prostatic hyperplasia) GERD (gastroesophageal reflux disease) Hyperlipidemia Hypertension Type 2 diabetes mellitus Surgical History Hx of CABG 1999 > 4 vessels > [facility] > follows with Dr. Lunsford History of insertion of pancreatic stent (01/16/24) [facility] Hx of biopsy (12/2023) pancreas and liver History of left cataract surgery History of esophagogastroduodenoscopy (EGD) History of colonoscopy History of tooth extraction History of tonsillectomy H/O lithotripsy Hx of cardiac cath 2009 > 5 stents - [facility] (LM and LAD stents August 2009, RCA and LAD stents September 2009) Family History Father Myocardial infarction Other Diabetes Heart disease Social History Smoking Status: Never smoker Tobacco Type: Cigarettes Second Hand Exposure: No; Do You Dip or Chew Tobacco: No; Hx Alcohol Use: No Hx Substance Use: No Preferred Language: Bengali Communication Ability: Effective Shot Blaster Required: No Beliefs That Will Affect Care: None marital status: Current Living Situation: Significant Other Feels Safe at Home: Yes Assistive Devices: None Allergies Allergies Allergy/AdvReac Type Severity Reaction Status Date / Time Iodinated Contrast Media Allergy Intermediate Rash Verified 03/20/24 13:05 levofloxacin Allergy Intermediate RASH Verified 03/20/24 13:05 lisinopril AdvReac Mild Cough Verified 03/20/24 13:05 Home Meds Home Medications Medication Instructions Recorded Confirmed multivitamin (Multiple Vitamins 1 tab PO QPM 12/02/18 03/20/24 tablet) cholecalciferol (vitamin D3) 50 2,000 units PO QAM 01/06/19 03/20/24 mcg (2,000 unit) tablet clopidogrel 75 mg tablet 75 mg PO QAM 01/06/19 03/20/24 nitroglycerin 0.4 mg sublingual 0.4 mg sublingual Q5M PRN Chest 01/06/19 03/20/24 tablet Pain #1 tab ranolazine 1,000 mg 1,000 mg PO Q12H #180 tabs 01/06/19 03/20/24 tablet,extended release,12 hr triamcinolone acetonide 0.1 % 1 appln topical BID PRN Rash 01/06/19 03/20/24 topical cream fluticasone propionate 50 1 spray intranasal DAILY 03/16/20 03/20/24 mcg/actuation nasal spray,suspension albuterol sulfate 90 mcg/actuation 2 inh inhalation Q6H PRN SOB 09/17/22 03/20/24 breath activated powder inhaler atenolol 50 mg tablet 50 mg PO QAM 03/14/23 03/20/24 pantoprazole 20 mg tablet,delayed 20 mg PO QAM 01/30/24 03/20/24 release L.acidoph-L.rhamn-B.bifidum-B.long 1 tab PO DAILYBB 02/07/24 03/20/24 12.9 mg (2 billion cell) tablet, DR aspirin 81 mg tablet,delayed 81 mg PO QPM 02/07/24 03/20/24 release cyanocobalamin (vitamin B-12) 1,000 mcg IM .EVERY 30 DAYS 02/07/24 03/20/24 1,000 mcg/mL injection solution iron,carbonyl 65 mg-vitamin C 125 1 tab PO Q OTHER DAY 02/07/24 03/20/24 mg tablet,delayed release (Vitron-C) isosorbide mononitrate 60 mg 120 mg PO QAM 02/07/24 03/20/24 tablet,extended release 24 hr lidocaine-prilocaine 2.5 %-2.5 % 1 applic topical UD 02/07/24 03/20/24 topical cream ondansetron HCl 8 mg tablet 8 mg PO Q8 PRN Nausea 02/07/24 03/20/24 polyethylene glycol 3350 17 17 g PO DAILY 02/07/24 03/20/24 gram/dose oral powder (Miralax) prochlorperazine maleate 10 mg 10 mg PO Q6 PRN Nausea 02/07/24 03/20/24 tablet furosemide 20 mg tablet (Lasix) 20 mg PO DAILY 03/20/24 03/20/24 metformin 500 mg tablet,extended 1,000 mg PO BID 03/20/24 03/20/24 release 24 hr potassium chloride 50 meq PO DAILY 03/20/24 03/20/24 Previous Rx's Medication Instructions Recorded tamsulosin 0.4 mg capsule 0.4 mg PO BID #180 caps 12/03/19 oxycodone-acetaminophen 5 mg-325 1 tab PO Q6H PRN pain #14 tabs 02/03/24 mg tablet (Percocet) magnesium oxide 400 mg (241.3 mg 400 mg PO BID #30 tabs 02/13/24 magnesium) tablet Results & Data (ED) Vital Signs Vital Signs - 24 hr 04/01/24 11:31 04/01/24 11:57 04/01/24 11:58 Temperature 36.5 C Temperature Source Temporal Artery Scan Pulse Rate 76 Pulse Rate [Apical] Pulse Rate from SpO2 Sensor Respiratory Rate 20 Respiratory Effort / Characteristics Spontaneous Short of Breath Respiratory Depth Normal Blood Pressure 89/47 L 109/76 Blood Pressure [Right Arm] Blood Pressure Mean 61 86 Blood Pressure Mean [Right Arm] Pulse Oximetry 97 Oxygen Delivery Method Room Air Room Air Sepsis Recent Fever Within 48 Hours No Sepsis New/Unexplained Change in Mental Status N/A Sepsis Action Taken by Nursing No Action Required 04/01/24 12:07 04/01/24 12:09 04/01/24 12:09 Temperature Temperature Source Pulse Rate 78 Pulse Rate [Apical] 78 Pulse Rate from SpO2 Sensor Respiratory Rate 14 Respiratory Effort / Characteristics Respiratory Depth Blood Pressure Blood Pressure [Right Arm] 124/68 Blood Pressure Mean Blood Pressure Mean [Right Arm] 86 Pulse Oximetry 100 Oxygen Delivery Method Room Air Room Air Sepsis Recent Fever Within 48 Hours Sepsis New/Unexplained Change in Mental Status Sepsis Action Taken by Nursing 04/01/24 12:15 04/01/24 12:27 04/01/24 12:30 Temperature Temperature Source Pulse Rate 76 Pulse Rate [Apical] Pulse Rate from SpO2 Sensor 74 76 Respiratory Rate 14 Respiratory Effort / Characteristics Respiratory Depth Blood Pressure 124/66 Blood Pressure [Right Arm] Blood Pressure Mean 77 Blood Pressure Mean [Right Arm] Pulse Oximetry 100 99 Oxygen Delivery Method Sepsis Recent Fever Within 48 Hours Sepsis New/Unexplained Change in Mental Status Sepsis Action Taken by Nursing 04/01/24 12:42 04/01/24 12:51 04/01/24 13:00 Temperature Temperature Source Pulse Rate 75 75 77 Pulse Rate [Apical] Pulse Rate from SpO2 Sensor 77 Respiratory Rate 21 24 13 Respiratory Effort / Characteristics Respiratory Depth Blood Pressure Blood Pressure [Right Arm] Blood Pressure Mean Blood Pressure Mean [Right Arm] Pulse Oximetry 100 Oxygen Delivery Method Sepsis Recent Fever Within 48 Hours Sepsis New/Unexplained Change in Mental Status Sepsis Action Taken by Nursing 04/01/24 13:18 04/01/24 13:36 Temperature Temperature Source Pulse Rate Pulse Rate [Apical] Pulse Rate from SpO2 Sensor 74 74 Respiratory Rate Respiratory Effort / Characteristics Respiratory Depth Blood Pressure 134/70 Blood Pressure [Right Arm] Blood Pressure Mean 91 Blood Pressure Mean [Right Arm] Pulse Oximetry 98 99 Oxygen Delivery Method Sepsis Recent Fever Within 48 Hours Sepsis New/Unexplained Change in Mental Status Sepsis Action Taken by Group Home Medications Current Medication List: was personally reviewed by me Laboratory Data Attestation: I reviewed the patient's lab results. 04/01/24 12:22 04/01/24 12:22 Lab Results 04/01/24 04/01/24 04/01/24 Range/Units 12:22 12:25 12:40 WBC 14.18 H (4.8-10.8) K/ul RBC 2.74 L (4.70-6.10) M/uL Hgb 7.7 L (14.0-18.0) g/dl Hct 23.2 L (42.0-52.0) % MCV 84.7 (80.0-100.0) fL MCH 28.1 (25.0-34.0) pg MCHC 33.2 (32.0-36.0) g/dL RDW Std Deviation 54.0 H (36.4-46.3) fL RDW Coeff of Loli 17.5 H (11.5-14.5) % Plt Count 312 (130-400) K/uL MPV 8.6 L (9.4-12.4) fL Immature Gran % (Auto) 0.6 % Neut % (Auto) 84.5 % Lymph % (Auto) 7.1 % [place] % (Auto) 7.6 % Eos % (Auto) 0.1 % Baso % (Auto) 0.1 % Neut # (Auto) 11.96 H (1.40-6.50) K/uL Lymph # (Auto) 1.01 L (1.20-3.40) K/uL [place] # (Auto) 1.08 H (0.11-0.59) K/uL Eos # (Auto) 0.02 (0.00-0.50) K/uL Baso # (Auto) 0.02 (0.00-0.20) K/uL Immature Gran # (Auto) 0.09 (0.01-0.20) K/uL Polychromasia 1+ Poikilocytosis Present PT 12.7 H (9.0-12.0) Seconds INR 1.2 H (0.9-1.1) APTT 27 (21-31) Seconds PTT Ratio 1.0 VBG pH 7.41 (7.36-7.41) VBG pCO2 37 L (38-50) mmHg VBG pO2 36 mmHg VBG HCO3 24 mmol/L VBG O2 Saturation 61.5 % VBG Base Excess -0.8 mEq/L Sodium 127 L (136-145) mmol/L Potassium 4.1 (3.5-5.1) mmol/L Chloride 96 L (98-107) mmol/L Carbon Dioxide 24 (21-32) mmol/L Anion Gap 7 (3-11) BUN 17 (6-23) mg/dl Creatinine 0.74 (0.6-1.4) mg/dl Est Cr Clr Drug Dosing 73.0 ml/min eGFR 92.17 BUN/Creatinine Ratio 23.0 H (10-20) Glucose 97 (70-99(Fasting)) mg/dl Lactate 1.8 (0.4-2.0) mmol/L Calcium 8.6 (8.6-10.3) mg/dl Magnesium 2.0 (1.7-2.4) mg/dl Total Bilirubin 2.0 H (0.2-1.0) mg/dl Direct Bilirubin 1.3 H (0-0.2) mg/dl AST 47 H (13-39) U/L ALT 36 (7-52) U/L Alkaline Phosphatase 784 H (34-104) U/L Troponin I High Sens 53.0 H* (0-20) pg/ml Total Protein 5.8 L (6.0-8.3) gm/dl Albumin 2.4 L (3.4-5.0) gm/dl Urine Color Urine Appearance (Clear) Urine pH (4.5-7.5) Ur Specific [place] (1.000-1.030) Urine Protein (Negative) Urine Glucose (UA) (Negative) Urine Ketones (Negative) Urine Blood (Negative) Urine Nitrite (Negative) Urine Bilirubin (Negative) Urine Urobilinogen (Negative) Ur Leukocyte Esterase (Negative) Urine WBC (Auto) (0-5) /hpf Urine RBC (Auto) (0-2) /hpf U Hyaline Cast (Auto) (0-2) /lpf U Epithel Cells (Auto) (0-2) /hpf Urine Bacteria (Auto) (None Seen) Calcium Oxalate Crystal (None Prsent) Urine Mucus (None Prsent) SARS-CoV-2 (PCR) NEGATIVE (Negative) Influenza Type A (PCR) Negative (Neg) Influenza Type B (PCR) Negative (Neg) RSV (RT-PCR) Negative (Neg) Blood Type A Positive Antibody Screen NEGATIVE 04/01/24 Range/Units 12:55 WBC (4.8-10.8) K/ul RBC (4.70-6.10) M/uL Hgb (14.0-18.0) g/dl Hct (42.0-52.0) % MCV (80.0-100.0) fL MCH (25.0-34.0) pg MCHC (32.0-36.0) g/dL RDW Std Deviation (36.4-46.3) fL RDW Coeff of Loli (11.5-14.5) % Plt Count (130-400) K/uL MPV (9.4-12.4) fL Immature Gran % (Auto) % Neut % (Auto) % Lymph % (Auto) % [place] % (Auto) % Eos % (Auto) % Baso % (Auto) % Neut # (Auto) (1.40-6.50) K/uL Lymph # (Auto) (1.20-3.40) K/uL [place] # (Auto) (0.11-0.59) K/uL Eos # (Auto) (0.00-0.50) K/uL Baso # (Auto) (0.00-0.20) K/uL Immature Gran # (Auto) (0.01-0.20) K/uL Polychromasia Poikilocytosis PT (9.0-12.0) Seconds INR (0.9-1.1) APTT (21-31) Seconds PTT Ratio VBG pH (7.36-7.41) VBG pCO2 (38-50) mmHg VBG pO2 mmHg VBG HCO3 mmol/L VBG O2 Saturation % VBG Base Excess mEq/L Sodium (136-145) mmol/L Potassium (3.5-5.1) mmol/L Chloride (98-107) mmol/L Carbon Dioxide (21-32) mmol/L Anion Gap (3-11) BUN (6-23) mg/dl Creatinine (0.6-1.4) mg/dl Est Cr Clr Drug Dosing ml/min eGFR BUN/Creatinine Ratio (10-20) Glucose (70-99(Fasting)) mg/dl Lactate (0.4-2.0) mmol/L Calcium (8.6-10.3) mg/dl Magnesium (1.7-2.4) mg/dl Total Bilirubin (0.2-1.0) mg/dl Direct Bilirubin (0-0.2) mg/dl AST (13-39) U/L ALT (7-52) U/L Alkaline Phosphatase (34-104) U/L Troponin I High Sens (0-20) pg/ml Total Protein (6.0-8.3) gm/dl Albumin (3.4-5.0) gm/dl Urine Color Dark Yellow Urine Appearance Clear (Clear) Urine pH 7.0 (4.5-7.5) Ur Specific [place] 1.018 (1.000-1.030) Urine Protein 1+ H (Negative) Urine Glucose (UA) Negative (Negative) Urine Ketones Negative (Negative) Urine Blood Negative (Negative) Urine Nitrite Positive A (Negative) Urine Bilirubin 2+ H (Negative) Urine Urobilinogen Positive H (Negative) Ur Leukocyte Esterase 1+ H (Negative) Urine WBC (Auto) 0-5 (0-5) /hpf Urine RBC (Auto) >20 H (0-2) /hpf U Hyaline Cast (Auto) 3-5 H (0-2) /lpf U Epithel Cells (Auto) 0-2 (0-2) /hpf Urine Bacteria (Auto) None Seen (None Seen) Calcium Oxalate Crystal Present A (None Prsent) Urine Mucus Present A (None Prsent) SARS-CoV-2 (PCR) (Negative) Influenza Type A (PCR) (Neg) Influenza Type B (PCR) (Neg) RSV (RT-PCR) (Neg) Blood Type Antibody Screen Administered Medications Discontinued Medications Sodium Chloride (Nss) 500 mls @ 999 mls/hr IV .Q31M ONE Stop: 04/01/24 12:13 Last Infusion: 04/01/24 13:26 Dose: Infused Documented By: Admin: 04/01/24 12:55 Dose: 999 mls/hr Documented By: QGV Cefepime HCl (Maxipime 2000mg) 2,000 mg in 20 mls @ 5 mls/min IV NOW STA; Protocol Stop: 04/01/24 12:59 Last Admin: 04/01/24 13:37 Dose: 5 mls/min Documented By: LISS Sodium Chloride (Nss) 500 mls @ 999 mls/hr IV .Q31M ONE Stop: 04/01/24 13:26 Last Admin: 04/01/24 13:44 Dose: 999 mls/hr Documented By: LISS Imaging Data Attestation: I personally reviewed and interpreted this imaging study as follows: My Impression: 1 view chest x-ray was obtained in the emergency department. My interpretation is right upper lobe infiltrate, final report below. Radiologist's Impression: Chest X-Ray 04/01/24 11:43 XR chest 1V portable CLINICAL HISTORY: Sepsis COMPARISON STUDY: 02/25/2024 FINDINGS: Stable right chest port. Stable CABG. Stable mild cardiomegaly without pulmonary vascular congestion. There is increased patchy opacity at the right upper lung laterally. No pleural effusion or pneumothorax. IMPRESSION: Increased pneumonia on the right. ACT 112: Negative or not required by law. Electronically signed by: Elgin Adair M.D. 04/01/2024 12:16 PM Discharge Plan Visit Data Chief Complaint: Shortness of Breath/Dyspnea Stated Complaint: SOB, PNEUMNONIA ED Provider: Matt Lim Discharge Problem: Pneumonia, Anemia, Elevated troponin I level, Acute hyponatremia Patient Disposition: Being Evaluated by Hospitalist Forms Stand Alone Forms: My [facility] Prescriptions Prescriptions: No Action tamsulosin 0.4 mg capsule 0.4 mg PO BID Qty: 180 3RF fluticasone propionate 50 mcg/actuation spray,suspension 1 spray intranasal DAILY Rx Instructions: administer into each nostril albuterol sulfate 90 mcg/actuation aerosol powdr breath activated 2 inh inhalation Q6H PRN (Reason: SOB) multivitamin [Multiple Vitamins] tablet 1 tab PO QPM cholecalciferol (vitamin D3) 2,000 unit tablet 2,000 units PO QAM clopidogrel 75 mg tablet 75 mg PO QAM nitroglycerin 0.4 mg tablet, sublingual 0.4 mg SL Q5M PRN (Reason: Chest Pain) Qty: 1 ranolazine 1,000 mg tablet extended release 12 hr 1,000 mg PO Q12H Qty: 180 triamcinolone acetonide 0.1 % cream 1 appln topical BID PRN (Reason: Rash) atenolol 50 mg tablet 50 mg PO QAM metformin 500 mg tablet extended release 24 hr 1,000 mg PO BID furosemide [Lasix] 20 mg tablet 20 mg PO DAILY potassium chloride 50 meq PO DAILY pantoprazole 20 mg Tablet,Delayed Release (Dr/Ec) 20 mg PO QAM oxycodone-acetaminophen [Percocet] 5-325 mg tablet 1 tab PO Q6H PRN (Reason: pain) Qty: 14 0RF ondansetron HCl 8 mg tablet 8 mg PO Q8 PRN (Reason: Nausea) aspirin 81 mg Tablet,Delayed Release (Dr/Ec) 81 mg PO QPM prochlorperazine maleate 10 mg tablet 10 mg PO Q6 PRN (Reason: Nausea) lidocaine-prilocaine 2.5-2.5 % cream 1 applic topical UD Rx Instructions: APPLY TOPICALLY TO MEDIPORT AND COVER 1 HOUR PRIOR TO ACCESSING isosorbide mononitrate 60 mg tablet extended release 24 hr 120 mg PO QAM cyanocobalamin (vitamin B-12) 1,000 mcg/mL Solution 1,000 mcg IM .EVERY 30 DAYS polyethylene glycol 3350 [Miralax] 17 gram/dose Powder 17 g PO DAILY Rx Instructions: OTC L.acidoph-L.rhamn-B.bif-B.long 12.9 mg (2 billion cell) Tablet,Delayed Release (Dr/Ec) 1 tab PO DAILYBB Rx Instructions: OTC Vitron-C 65 mg iron- 125 mg Tablet,Delayed Release (Dr/Ec) 1 tab PO Q OTHER DAY magnesium oxide 400 mg (241.3 mg magnesium) Tablet 400 mg PO BID Qty: 30 0RF Referrals Referrals: Pedro Luis Bowens DO [Primary Care Provider] - Discharge Problem: Pneumonia Qualifiers: Pneumonia type: due to unspecified organism Laterality: right Lung location: u pper lobe of lung Qualified Code(s): J18.9 - Pneumonia, unspecified organism Anemia Qualifiers: Anemia type: unspecified type Qualified Code(s): D64.9 - Anemia, unspecified
--- NOTE | 2024-04-01 12:17 | XRay Report ---
XR chest 1V portable CLINICAL HISTORY: Sepsis COMPARISON STUDY: 02/25/2024 FINDINGS: Stable right chest port. Stable CABG. Stable mild cardiomegaly without pulmonary vascular c ongestion. There is increased patchy opacity at the right upper lung laterally. No pleural effusion o r pneumothorax. IMPRESSION: Increased pneumonia on the right. ACT 112: Negative or not required by law. Electronically signed by: Elgin Adair M.D. 04/01/2024 12:16 PM
[2024-04-01 12:38] LABS: Base Excess VBG -0.8 mEq/L; HCO3 VBG 24 mmol/L; Oxygen Saturation VBG 61.5 %; PCO2 VBG 37 mmHg (38-50); PO2 VBG 36 mmHg; pH VBG 7.41 (7.36-7.41)
[2024-04-01 12:50] LABS: Basophils # (auto) 0.02 K/uL (0.00-0.20); Basophils % (auto) 0.1 %; Eosinophils # (auto) 0.02 K/uL (0.00-0.50); Eosinophils % (auto) 0.1 %; Hematocrit (blood only) 23.2 % (42.0-52.0); Hemoglobin 7.7 g/dl (14.0-18.0); Immature Granulocytes # (auto) 0.09 K/uL (0.01-0.20); Immature Granulocytes % (auto) 0.6 %; Lymphocytes # (auto) 1.01 K/uL (1.20-3.40); Lymphocytes % (auto) 7.1 %; Mean Corpuscular Hemoglobin 28.1 pg (25.0-34.0); Mean Corpuscular Hgb Conc 33.2 g/dL (32.0-36.0); Mean Corpuscular Volume 84.7 fL (80.0-100.0); Mean Platelet Volume 8.6 fL (9.4-12.4); Monocytes # (auto) 1.08 K/uL (0.11-0.59); Monocytes % (auto) 7.6 %; Neutrophils # (auto) 11.96 K/uL (1.40-6.50); Neutrophils % (auto) 84.5 %; Platelet Count 312 K/uL (130-400); RDW Coefficient of Variation 17.5 % (11.5-14.5); Red Blood Count 2.74 M/uL (4.70-6.10); White Blood Count 14.18 K/ul (4.8-10.8)
[2024-04-01] MEDS: SODIUM CHLORIDE 0.9% 500 ML IV ONE ×2 (12:55→13:44)
[2024-04-01 13:01] LABS: Albumin Level 2.4 gm/dl (3.4-5.0); Bilirubin Direct 1.3 mg/dl (0-0.2); Calcium 8.6 mg/dl (8.6-10.3); Potassium 4.1 mmol/L (3.5-5.1); Total Protein 5.8 gm/dl (6.0-8.3)
[2024-04-01 13:07] LABS: Poikilocytosis Present; Polychromasia 1+
[2024-04-01 13:11] LABS: INR 1.2 (0.9-1.1); Partial Thromboplastin Time 27 Seconds (21-31); Prothrombin Time 12.7 Seconds (9.0-12.0)
[2024-04-01 13:22] LABS: Appearance Urine Clear (Clear); Bacteria Urine Automated None Seen (None Seen); Bilirubin Urine 2+ (Negative); Blood Urine Negative (Negative); Calcium Oxalate Crystals Urine Present (None Prsent); Color Urine Dark Yellow; Epithelial Cell Urine Auto 0-2 /hpf (0-2); Glucose Urine UA Negative (Negative); Ketones Urine Negative (Negative); Leukocyte Esterase Urine 1+ (Negative); Mucus Urine Present (None Prsent); Nitrite Urine Positive (Negative); Protein Urine 1+ (Negative); RBC Urine Automated >20 /hpf (0-2); Specific Gravity Urine 1.018 (1.000-1.030); Urobilinogen Urine Positive (Negative); WBC Urine Automated 0-5 /hpf (0-5)
[2024-04-01] MEDS: CEFEPIME 2000MG 2,000 MG/20 ML SYR IV STA (13:37)
[2024-04-01 13:42] LABS: Influenza A virus by PCR Negative (Neg); Influenza B virus by PCR Negative (Neg); RSV by PCR Negative (Neg); SARS CoV2 RNA(COVID-19) Ceph NEGATIVE (Negative)
[2024-04-01] MEDS: SODIUM CHLORIDE 0.9% 1,000 ML IV ONE (14:16)
--- NOTE | 2024-04-01 14:38 | Hospitalist Progress Note ---
Date of Service April 01, 2024 Assessment & Plan (1) Weakness: (2) Anemia: (3) Pneumonia: (4) Acute hyponatremia: (5) Pancreatic cancer: Plan: 78 year old male with history of Metastatic pancreatic cancer, CAD status post CABG, other problems below presenting with weakness x 3 days. Generalized weakness, likely multifactorial secondary to: Anemia, acute on chronic Melena, possible GI bleed History of GERD -- Hemoglobin 7.7, last hemoglobin 10.1, February 2024 -- Also received blood transfusions during last month admission -- 1 unit packed RBCs ordered to maintain hemoglobin more than 8 given CAD --Repeat H&H this evening --Protonix drip, n.p.o., GI consult Right upper lobe pneumonia Recent COVID-19 pneumonia, February 2020 -- Differential count pending to rule out neutropenia given history of pancytopenia --BioFire, sputum culture, MRSA swab, blood cultures pending --Start with cefepime 2 g IV every 8 hours, azithromycin p.o. --ID consulted Acute hyponatremia Likely secondary to hypovolemia, dehydration --Sodium 127 --Given IV NSS boluses at the ER, repeat sodium at 5 PM pending Hypotension --Likely secondary to above --Improving with IV fluids, hold BP meds Leg edema --Hold Lasix for now in light of hypotension --Has history of mild to moderate aortic stenosis per echo in January 2024 EF 55-60% Mild elevation of LFTs --CT abdomen pelvis ordered to rule out progression of mets, possible ascites Mild troponin elevation History of CAD, CABG --Troponin 53, during last admission 714 --Denies cardiac symptoms, EKG without signs of acute ischemia or infarct --Repeat troponin pending Pancreatic cancer with metastasis --Last chemo was in January 2024 Currently on hold due to recent illnesses Diabetes type 2 --Insulin sliding scale CODE STATUS DNR as per patient DVT prophylaxis Anticoagulation contraindicated in light of anemia, possible GI bleed SCDs contraindicated in light of bilateral lower leg edema Disposition Lives at home with Subjective 78 year old male with history of Metastatic pancreatic cancer, CAD status post CABG, other problems below presenting with weakness x 3 days. Patient was recently discharged from [facility] last February 28, 2024 after being treated with COVID pneumonia. He was treated with remdesivir, Decadron, cefepime, Augmentin and fluconazole. As per patient, since that time, he was started with Lasix 20 mg p.o. daily for leg edema which was recently increased to 40 mg daily. Last Saturday, patient started to have chills, dizziness, weakness. He also noticed having soft, black stools, with some generalized abdominal discomfort. Today, patient saw his PCP, chest x-ray was obtained showing pneumonia, hence he was directed to go to the ER. At the ER, patient's blood pressure was initially 89/47, which improved to 124/60 after a liter of normal saline. Chest x-ray showed right upper lobe pneumonia, cefepime was started. Hemoglobin 7.7. On exam, patient seen resting in bed, feels tired, weak, but no active shortness of breath, chest pain, nausea vomiting. No other new symptoms Review of Systems Review of Systems: all noted and negative except for above Physical Exam Physical Exam: General- oriented x 3, not in distress, speaks in sentences with no effort or accessory muscle use Head- atraumatic Eyes- PERRL, EOMI, anicteric ENT- oropharynx clear Neck- supple, no JVD, no adenopathy, no thyromegaly; carotids +2/2, no bruits appreciated Lungs- clear to auscultation bilaterally, no rales/wheezes Heart- normal rate, regular rhythm; (+) grade 2 holosytolic murmur, no gallop, n o rub appreciated Abdomen- normal bowel sounds,(+) mild distention, soft, (+) mild tenderness on all quadrants, no masses or hepatosplenomegaly Extremities- (+) grade 1 lower leg edema, no calf tenderness; peripheral pulses intact Neuro- alert, oriented x 3; CN 2-12 grossly intact; motor 5/5 bilaterally;sensation 100% on all extremities; no other gross focal neurologic deficits Skin- warm & dry Results & Data Results & Data Vital Signs (Past 12 Hours) Vital Signs Temp Pulse Pulse Resp BP BP Pulse Ox 04/01/24 14:21 36.5 C 04/01/24 14:00 96/73 L 04/01/24 14:00 83 23 98 04/01/24 13:36 134/70 99 04/01/24 13:18 98 04/01/24 13:00 77 13 04/01/24 12:51 75 24 100 04/01/24 12:42 75 21 04/01/24 12:30 124/66 04/01/24 12:27 76 14 99 04/01/24 12:15 100 04/01/24 12:09 78 14 124/68 100 04/01/24 12:09 04/01/24 12:07 78 04/01/24 11:58 04/01/24 11:57 109/76 04/01/24 11:31 36.5 C 76 20 89/47 L 97 O2 Del Method 04/01/24 14:21 04/01/24 14:00 04/01/24 14:00 04/01/24 13:36 04/01/24 13:18 04/01/24 13:00 04/01/24 12:51 04/01/24 12:42 04/01/24 12:30 04/01/24 12:27 04/01/24 12:15 04/01/24 12:09 Room Air 04/01/24 12:09 Room Air 04/01/24 12:07 04/01/24 11:58 Room Air 04/01/24 11:57 04/01/24 11:31 Room Air all noted and reviewed including below (3) Pneumonia Laterality: right Lung location: upper lobe of lung Pneumonia type: due to unspecified organism Qualified Code(s): J18.9 - Pneumonia, unspecified organism (5) Pancreatic cancer Pancreatic malignancy location: other parts of pancreas Qualified Code(s): C25.7 - Malignant neoplasm of other parts of pancreas
[2024-04-01] MEDS ORDERED: GLUCAGON FOR INJ 1 MG VIAL SQ PRN (14:41)
[2024-04-01] MEDS ORDERED: CARBOHYDRATES FOR HYPOGLYCEMIA PO PRN (14:41)
[2024-04-01] MEDS ORDERED: SODIUM CHLORIDE 0.9% 50 ML IV PRN (14:41)
[2024-04-01] MEDS ORDERED: GLUCOSE 10 TAB/TUBE PO PRN (14:41)
[2024-04-01] MEDS ORDERED: SODIUM CHLORIDE 0.9% 100 ML IV PRN (14:41)
[2024-04-01] MEDS ORDERED: GLUCOSE 40% GEL 15 GM TUBE PO PRN (14:41)
[2024-04-01] MEDS: PANTOPRAZOLE BOLUS/DRIP IV STA (14:49)
--- NOTE | 2024-04-01 15:17 | CT Scan Report ---
CT chest diagnostic wo con CT DOSE: 1422.63 mGy.cm CLINICAL HISTORY: 78 years-old Male with pneumonia, r/o effusion, abscess. Acute shortness of breath TECHNIQUE: Multiaxial CT images of the chest were performed without contrast. A dose lowering techni que was utilized adhering to the principles of ALARA. COMPARISON: CT abdomen and pelvis of same day and also 02/07/2024, chest radiograph 02/25/2024 FINDINGS: Unremarkable thyroid. Subcarinal lymph nodes measure up to 11 mm. No pathologically enlarge d hilar lymph nodes. Mild cardiomegaly. Median sternotomy and CABG. Extensive [place] coronary artery calcifications with coronary arterial stenting. Atherosclerosis of the aorta are without aneurysm. Ri ght IJ [id number] catheter distal tip terminates in the inferior SVC. Trace pleural effusions. Moderate pulmonary emphysema. Patchy bilateral groundglass opacities are mos t pronounced in the right upper lobe with air is also mild patchy consolidation. Numerous scattered b ilateral solid pulmonary nodules measure up to approximately 6 mm. Upper abdominal ascites with multifocal hepatic metastasis. CT abdomen and pelvis dictated separately . Partially imaged distended gallbladder with biliary ductal dilation and biliary stent in place. Unr emarkable soft tissues. No acute fracture. IMPRESSION: 1. Pulmonary emphysema with patchy bilateral groundglass opacities, most pronounced within the right upper lobe which are likely infectious or inflammatory. 2. Subcarinal lymphadenopathy. 3. Scattered subcentimeter solid pulmonary nodules measure up to 6 mm. Follow-up recommended. 4. Please refer to the same day CT abdomen and pelvis study for discussion of the abdominal findings. ACT 112: Negative or not required by law. Electronically signed by: Manuel Calderon M.D. 04/01/2024 3:15 PM
[2024-04-01] MEDS ORDERED: IPRATROPIUM BROMIDE NEB SOLN 0.02% 0.5MG/2.5ML VIAL NEB PRN (15:18)
[2024-04-01] MEDS ORDERED: LEVALBUTEROL 1.25 MG/3 ML NEB NEB PRN (15:18)
--- NOTE | 2024-04-01 15:19 | Gastrointestinal Consultation ---
Date of Consultation April 01, 2024 Assessment & Plan (1) Anemia: Hemoglobin 7.7 was 10.1 on discharge in February however initially presented with a hemoglobin of 7.3 back then and received blood transfusions. Suspect etiology of anemia is multifactorial related to his underlying metastatic pancreatic cancer, nutritional deficiencies due to lack of eating possibly bone marrow suppression due to recent chemotherapy. I bleeding is a consideration however stool is heme-negative at the present time. Will continue to monitor his hemoglobin and hematocrit transfuse as needed to maintain hemoglobin over 7. (2) Melena: Patient describes possible melena however and on admission has heme-negative stool. Await further evaluation of his other medical conditions prior to considering endoscopy. Continue to monitor stool output can start empiric PPI. Monitor hemoglobin and hematocrit. (3) Primary pancreatic cancer with metastasis to other site: Advanced pancreatic cancer is not a candidate for surgery and has received some chemotherapy. Of concern is his elevated alkaline phosphatase over the last month possibly suggestive of increased stool burden and progression of disease. Await further imaging. (4) Dyspnea: Major clinical concern is his shortness of breath associated with leukocytosis need to rule out fluid overload, pneumonia as well as pulmonary embolus in light of his underlying malignancy which increases his risk for thrombosis. Await further studies and management by primary team. History of Present Illness Reason for Consultation: Possible GI bleed possible melena Attending Physician: Jamey Whittington MD History of Present Illness Patient presents with progressive weakness shortness of breath has noted dark bowel movements over the last few days. He describes them as black and loose. He denies any abdominal pain nausea vomiting. No prior history of peptic ulcer disease or GI bleeding. He was diagnosed with metastatic pancreatic cancer in December received a few courses of chemotherapy which has been stopped due to pancytopenia. In February he was admitted with COVID treated with remdesivir. He has a past history of coronary artery disease status post bypass surgery type 2 diabetes. Rectal exam in the emergency room revealed heme-negative brown stool Allergies Allergy/AdvReac Type Severity Reaction Status Date / Time Iodinated Contrast Media Allergy Intermediate Rash Verified 03/20/24 13:05 levofloxacin Allergy Intermediate RASH Verified 03/20/24 13:05 lisinopril AdvReac Mild Cough Verified 03/20/24 13:05 Home Medications Medication Instructions Recorded Confirmed Type multivitamin (Multiple Vitamins 1 tab PO QPM 12/02/18 03/20/24 History tablet) cholecalciferol (vitamin D3) 50 2,000 units PO QAM 01/06/19 03/20/24 History mcg (2,000 unit) tablet clopidogrel 75 mg tablet 75 mg PO QAM 01/06/19 03/20/24 History nitroglycerin 0.4 mg sublingual 0.4 mg sublingual Q5M PRN Chest 01/06/19 03/20/24 History tablet Pain #1 tab ranolazine 1,000 mg 1,000 mg PO Q12H #180 tabs 01/06/19 03/20/24 History tablet,extended release,12 hr triamcinolone acetonide 0.1 % 1 appln topical BID PRN Rash 01/06/19 03/20/24 History topical cream tamsulosin 0.4 mg capsule 0.4 mg PO BID #180 caps 12/03/19 03/20/24 Rx fluticasone propionate 50 1 spray intranasal DAILY 03/16/20 03/20/24 History mcg/actuation nasal spray,suspension albuterol sulfate 90 mcg/actuation 2 inh inhalation Q6H PRN SOB 09/17/22 03/20/24 History breath activated powder inhaler atenolol 50 mg tablet 50 mg PO QAM 03/14/23 03/20/24 History pantoprazole 20 mg tablet,delayed 20 mg PO QAM 01/30/24 03/20/24 History release oxycodone-acetaminophen 5 mg-325 1 tab PO Q6H PRN pain #14 tabs 02/03/24 03/20/24 Rx mg tablet (Percocet) L.acidoph-L.rhamn-B.bifidum-B.long 1 tab PO DAILYBB 02/07/24 03/20/24 History 12.9 mg (2 billion cell) tablet, DR aspirin 81 mg tablet,delayed 81 mg PO QPM 02/07/24 03/20/24 History release cyanocobalamin (vitamin B-12) 1,000 mcg IM .EVERY 30 DAYS 02/07/24 03/20/24 History 1,000 mcg/mL injection solution iron,carbonyl 65 mg-vitamin C 125 1 tab PO Q OTHER DAY 02/07/24 03/20/24 History mg tablet,delayed release (Vitron-C) isosorbide mononitrate 60 mg 120 mg PO QAM 02/07/24 03/20/24 History tablet,extended release 24 hr lidocaine-prilocaine 2.5 %-2.5 % 1 applic topical UD 02/07/24 03/20/24 History topical cream ondansetron HCl 8 mg tablet 8 mg PO Q8 PRN Nausea 02/07/24 03/20/24 History polyethylene glycol 3350 17 17 g PO DAILY 02/07/24 03/20/24 History gram/dose oral powder (Miralax) prochlorperazine maleate 10 mg 10 mg PO Q6 PRN Nausea 02/07/24 03/20/24 History tablet magnesium oxide 400 mg (241.3 mg 400 mg PO BID #30 tabs 02/13/24 03/20/24 Rx magnesium) tablet furosemide 20 mg tablet (Lasix) 20 mg PO DAILY 03/20/24 03/20/24 History metformin 500 mg tablet,extended 1,000 mg PO BID 03/20/24 03/20/24 History release 24 hr potassium chloride 50 meq PO DAILY 03/20/24 03/20/24 History Patient History Medical History Pancreatic cancer stage 4; now with mets Hx of renal calculi Dyspnea reason for inhaler, uses every morning Angina pectoris chronic stable class I per cardio; follows closely with [facility] [place] Cardio Non Q wave myocardial infarction 2002; 'questionable per pt' CAD (coronary artery disease) CABG August 1999, LM and LAD stents August 2009, RCA and LAD stents September 2009 Aortic stenosis follows with Dr. Lunsford; mild-mod per 08/27/23 ECHO BPH (benign prostatic hyperplasia) GERD (gastroesophageal reflux disease) Hyperlipidemia Hypertension Type 2 diabetes mellitus Surgical History Hx of CABG 1999 > 4 vessels > [facility] > follows with Dr. Lunsford History of insertion of pancreatic stent (01/16/24) [facility] Hx of biopsy (12/2023) pancreas and liver History of left cataract surgery History of esophagogastroduodenoscopy (EGD) History of colonoscopy History of tooth extraction History of tonsillectomy H/O lithotripsy Hx of cardiac cath 2009 > 5 stents - [facility] (LM and LAD stents August 2009, RCA and LAD stents September 2009) Family History Father Myocardial infarction Other Diabetes Heart disease Social History Smoking Status: Never smoker Tobacco Type: Cigarettes Second Hand Exposure: No; Do You Dip or Chew Tobacco: No; Hx Alcohol Use: No Hx Substance Use: No Preferred Language: Swedish Communication Ability: Effective Sharepoint Developer Required: No Beliefs That Will Affect Care: None marital status: Current Living Situation: Significant Other Feels Safe at Home: Yes Assistive Devices: None Review of Systems Constitutional: + weakness and + anorexia Respiratory: + dyspnea Cardiovascular: Additional Comments: No chest pain Gastrointestinal: + melena Physical Exam Physical Exam: Eyes; anicteric HENT No masses Chest clear to A Cor S1, S2 physiologic Abd: softer nontender no masses Ext + edema Results & Data Vital Signs (Past 12 Hours) Vital Signs Temp Pulse Pulse Resp BP BP Pulse Ox 04/01/24 14:21 36.5 C 04/01/24 14:00 96/73 L 04/01/24 14:00 83 23 98 04/01/24 13:36 134/70 99 04/01/24 13:18 98 04/01/24 13:00 77 13 04/01/24 12:51 75 24 100 04/01/24 12:42 75 21 04/01/24 12:30 124/66 04/01/24 12:27 76 14 99 04/01/24 12:15 100 04/01/24 12:09 78 14 124/68 100 04/01/24 12:09 04/01/24 12:07 78 04/01/24 11:58 04/01/24 11:57 109/76 04/01/24 11:31 36.5 C 76 20 89/47 L 97 O2 Del Method 04/01/24 14:21 04/01/24 14:00 04/01/24 14:00 04/01/24 13:36 04/01/24 13:18 04/01/24 13:00 04/01/24 12:51 04/01/24 12:42 04/01/24 12:30 04/01/24 12:27 04/01/24 12:15 04/01/24 12:09 Room Air 04/01/24 12:09 Room Air 04/01/24 12:07 04/01/24 11:58 Room Air 04/01/24 11:57 04/01/24 11:31 Room Air Laboratory Results Lab Results 04/01/24 04/01/24 04/01/24 Range/Units 12:22 12:25 12:40 WBC 14.18 H (4.8-10.8) K/ul RBC 2.74 L (4.70-6.10) M/uL Hgb 7.7 L (14.0-18.0) g/dl Hct 23.2 L (42.0-52.0) % MCV 84.7 (80.0-100.0) fL MCH 28.1 (25.0-34.0) pg MCHC 33.2 (32.0-36.0) g/dL RDW Std Deviation 54.0 H (36.4-46.3) fL RDW Coeff of Loli 17.5 H (11.5-14.5) % Plt Count 312 (130-400) K/uL MPV 8.6 L (9.4-12.4) fL Immature Gran % (Auto) 0.6 % Neut % (Auto) 84.5 % Lymph % (Auto) 7.1 % Chambers % (Auto) 7.6 % Eos % (Auto) 0.1 % Baso % (Auto) 0.1 % Neut # (Auto) 11.96 H (1.40-6.50) K/uL Lymph # (Auto) 1.01 L (1.20-3.40) K/uL Chambers # (Auto) 1.08 H (0.11-0.59) K/uL Eos # (Auto) 0.02 (0.00-0.50) K/uL Baso # (Auto) 0.02 (0.00-0.20) K/uL Immature Gran # (Auto) 0.09 (0.01-0.20) K/uL Polychromasia 1+ Poikilocytosis Present PT 12.7 H (9.0-12.0) Seconds INR 1.2 H (0.9-1.1) APTT 27 (21-31) Seconds PTT Ratio 1.0 VBG pH 7.41 (7.36-7.41) VBG pCO2 37 L (38-50) mmHg VBG pO2 36 mmHg VBG HCO3 24 mmol/L VBG O2 Saturation 61.5 % VBG Base Excess -0.8 mEq/L Sodium 127 L (136-145) mmol/L Potassium 4.1 (3.5-5.1) mmol/L Chloride 96 L (98-107) mmol/L Carbon Dioxide 24 (21-32) mmol/L Anion Gap 7 (3-11) BUN 17 (6-23) mg/dl Creatinine 0.74 (0.6-1.4) mg/dl Est Cr Clr Drug Dosing 73.0 ml/min eGFR 92.17 BUN/Creatinine Ratio 23.0 H (10-20) Glucose 97 (70-99(Fasting)) mg/dl Lactate 1.8 (0.4-2.0) mmol/L Calcium 8.6 (8.6-10.3) mg/dl Magnesium 2.0 (1.7-2.4) mg/dl Transferrin 110 L (200-360) mg/dl Total Bilirubin 2.0 H (0.2-1.0) mg/dl Direct Bilirubin 1.3 H (0-0.2) mg/dl AST 47 H (13-39) U/L ALT 36 (7-52) U/L Alkaline Phosphatase 784 H (34-104) U/L Troponin I High Sens 53.0 H* (0-20) pg/ml Total Protein 5.8 L (6.0-8.3) gm/dl Albumin 2.4 L (3.4-5.0) gm/dl Procalcitonin 1.13 H (0-0.5) ng/ml Urine Color Urine Appearance (Clear) Urine pH (4.5-7.5) Ur Specific [place] (1.000-1.030) Urine Protein (Negative) Urine Glucose (UA) (Negative) Urine Ketones (Negative) Urine Blood (Negative) Urine Nitrite (Negative) Urine Bilirubin (Negative) Urine Urobilinogen (Negative) Ur Leukocyte Esterase (Negative) Urine WBC (Auto) (0-5) /hpf Urine RBC (Auto) (0-2) /hpf U Hyaline Cast (Auto) (0-2) /lpf U Epithel Cells (Auto) (0-2) /hpf Urine Bacteria (Auto) (None Seen) Calcium Oxalate Crystal (None Prsent) Urine Mucus (None Prsent) SARS-CoV-2 (PCR) NEGATIVE (Negative) Influenza Type A (PCR) Negative (Neg) Influenza Type B (PCR) Negative (Neg) RSV (RT-PCR) Negative (Neg) Blood Type A Positive Antibody Screen NEGATIVE Crossmatch See Detail 04/01/24 04/01/24 Range/Units 12:55 14:18 WBC (4.8-10.8) K/ul RBC (4.70-6.10) M/uL Hgb (14.0-18.0) g/dl Hct (42.0-52.0) % MCV (80.0-100.0) fL MCH (25.0-34.0) pg MCHC (32.0-36.0) g/dL RDW Std Deviation (36.4-46.3) fL RDW Coeff of Loli (11.5-14.5) % Plt Count (130-400) K/uL MPV (9.4-12.4) fL Immature Gran % (Auto) % Neut % (Auto) % Lymph % (Auto) % Chambers % (Auto) % Eos % (Auto) % Baso % (Auto) % Neut # (Auto) (1.40-6.50) K/uL Lymph # (Auto) (1.20-3.40) K/uL Chambers # (Auto) (0.11-0.59) K/uL Eos # (Auto) (0.00-0.50) K/uL Baso # (Auto) (0.00-0.20) K/uL Immature Gran # (Auto) (0.01-0.20) K/uL Polychromasia Poikilocytosis PT (9.0-12.0) Seconds INR (0.9-1.1) APTT (21-31) Seconds PTT Ratio VBG pH (7.36-7.41) VBG pCO2 (38-50) mmHg VBG pO2 mmHg VBG HCO3 mmol/L VBG O2 Saturation % VBG Base Excess mEq/L Sodium (136-145) mmol/L Potassium (3.5-5.1) mmol/L Chloride (98-107) mmol/L Carbon Dioxide (21-32) mmol/L Anion Gap (3-11) BUN (6-23) mg/dl Creatinine (0.6-1.4) mg/dl Est Cr Clr Drug Dosing ml/min eGFR BUN/Creatinine Ratio (10-20) Glucose (70-99(Fasting)) mg/dl Lactate (0.4-2.0) mmol/L Calcium (8.6-10.3) mg/dl Magnesium (1.7-2.4) mg/dl Transferrin (200-360) mg/dl Total Bilirubin (0.2-1.0) mg/dl Direct Bilirubin (0-0.2) mg/dl AST (13-39) U/L ALT (7-52) U/L Alkaline Phosphatase (34-104) U/L Troponin I High Sens 16.6 D (0-20) pg/ml Total Protein (6.0-8.3) gm/dl Albumin (3.4-5.0) gm/dl Procalcitonin (0-0.5) ng/ml Urine Color Dark Yellow Urine Appearance Clear (Clear) Urine pH 7.0 (4.5-7.5) Ur Specific [place] 1.018 (1.000-1.030) Urine Protein 1+ H (Negative) Urine Glucose (UA) Negative (Negative) Urine Ketones Negative (Negative) Urine Blood Negative (Negative) Urine Nitrite Positive A (Negative) Urine Bilirubin 2+ H (Negative) Urine Urobilinogen Positive H (Negative) Ur Leukocyte Esterase 1+ H (Negative) Urine WBC (Auto) 0-5 (0-5) /hpf Urine RBC (Auto) >20 H (0-2) /hpf U Hyaline Cast (Auto) 3-5 H (0-2) /lpf U Epithel Cells (Auto) 0-2 (0-2) /hpf Urine Bacteria (Auto) None Seen (None Seen) Calcium Oxalate Crystal Present A (None Prsent) Urine Mucus Present A (None Prsent) SARS-CoV-2 (PCR) (Negative) Influenza Type A (PCR) (Neg) Influenza Type B (PCR) (Neg) RSV (RT-PCR) (Neg) Blood Type Antibody Screen Crossmatch PG Care Time/CCT Total # of Minutes Spent Total Time Spent with Patient: Total time spent is greater than 50% in coordination of care (as documented) at patient's floor/unit and/or counseling patient: Coding Level of Care Code 43974 INT INP/OBS CARE MIN Diagnoses Anemia D64.9 Anemia type: unspecified type Melena K92.1 Primary pancreatic cancer with metastasis to other site C25.9 Dyspnea R06.00 (1) Anemia Anemia type: unspecified type Qualified Code(s): D64.9 - Anemia, unspecified
[2024-04-01] MEDS: FUROSEMIDE 40 MG/4 ML VIAL IV ONE (15:23)
--- NOTE | 2024-04-01 15:23 | History & Physical Report ---
Date of Service April 01, 2024 Assessment & Plan (1) Weakness: (2) Anemia: (3) Pneumonia: (4) Acute hyponatremia: (5) Pancreatic cancer: Plan: 78 year old male with history of Metastatic pancreatic cancer, CAD status post CABG, other problems below presenting with weakness x 3 days. Generalized weakness, likely multifactorial secondary to: Anemia, acute on chronic Melena, possible GI bleed History of GERD -- Hemoglobin 7.7, last hemoglobin 10.1, February 2024 -- Also received blood transfusions during last month admission -- 1 unit packed RBCs ordered to maintain hemoglobin more than 8 given CAD --Repeat H&H this evening --Protonix drip (changed to IV BID due to volume overload), n.p.o., GI consult -- Hold aspirin, Plavix Right upper lobe pneumonia Recent COVID-19 pneumonia, February 2020 -- Differential count pending to rule out neutropenia given history of pancytopenia --BioFire, sputum culture, MRSA swab, blood cultures pending --Start with Zosyn 2 g IV every 8 hours, azithromycin p.o. --ID consulted Acute hyponatremia Likely secondary to hypovolemia, dehydration --Sodium 127 --Given IV NSS boluses at the ER, repeat sodium at 5 PM pending Unfortunately, patient developed acute pulmonary edema after receiving 2 L of IV fluid bolus at the ER, IV fluids discontinued He required 4 L of O2 via nasal cannula Lasix 40 mg IV, nebs given, patient improved, and was weaned off to 2 L of O2 Hypotension --Likely secondary to above --Improving with IV fluids, hold BP meds --Hold atenolol, Imdur Leg edema --Hold Usual p.o. Lasix for now in light of hypotension_>Resume once blood pressure is improved --Has history of mild to moderate aortic stenosis per echo in January 2024 EF 55-60% Mild elevation of LFTs --CT abdomen pelvis ordered to rule out progression of mets, possible ascites Mild troponin elevation History of CAD, CABG --Troponin 53, during last admission 714 --Denies cardiac symptoms, EKG without signs of acute ischemia or infarct --Repeat troponin pending Pancreatic cancer with metastasis --Last chemo was in January 2024 Currently on hold due to recent illnesses Diabetes type 2 --Insulin sliding scale CODE STATUS DNR as per patient DVT prophylaxis Anticoagulation contraindicated in light of anemia, possible GI bleed SCDs contraindicated in light of bilateral lower leg edema Disposition Lives at home with Admission and Anticipated Discharge Date Admission Date: April 01, 2024 History of Present Illness Chief Complaint: 78 year old male with history of Metastatic pancreatic cancer, CAD status post CABG, other problems below presenting with weakness x 3 days. Primary Care Provider: Pedro Luis Bowens DO 78 year old male with history of Metastatic pancreatic cancer, CAD status post CABG, other problems below presenting with weakness x 3 days. Patient was recently discharged from [facility] last February 28, 2024 after being treated with COVID pneumonia. He was treated with remdesivir, Decadron, cefepime, Augmentin and fluconazole. As per patient, since that time, he was started with Lasix 20 mg p.o. daily for leg edema which was recently increased to 40 mg daily. Last Saturday, patient started to have chills, dizziness, weakness. He also noticed having soft, black stools, with some generalized abdominal discomfort. Today, patient saw his PCP, chest x-ray was obtained showing pneumonia, hence he was directed to go to the ER. At the ER, patient's blood pressure was initially 89/47, which improved to 124/60 after a liter of normal saline. Chest x-ray showed right upper lobe pneumonia, cefepime was started. Hemoglobin 7.7. On exam, patient seen resting in bed, feels tired, weak, but no active shortness of breath, chest pain, nausea vomiting. No other new symptoms Allergies Allergy/AdvReac Type Severity Reaction Status Date / Time Iodinated Contrast Media Allergy Intermediate Rash Verified 03/20/24 13:05 levofloxacin Allergy Intermediate RASH Verified 03/20/24 13:05 lisinopril AdvReac Mild Cough Verified 03/20/24 13:05 Home Medications Medication Instructions Recorded Confirmed Type multivitamin (Multiple Vitamins 1 tab PO QPM 12/02/18 04/01/24 History tablet) cholecalciferol (vitamin D3) 50 2,000 units PO QAM 01/06/19 04/01/24 History mcg (2,000 unit) tablet clopidogrel 75 mg tablet 75 mg PO QAM 01/06/19 04/01/24 History nitroglycerin 0.4 mg sublingual 0.4 mg sublingual Q5M PRN Chest 01/06/19 04/01/24 History tablet Pain #1 tab triamcinolone acetonide 0.1 % 1 appln topical BID PRN Rash 01/06/19 04/01/24 History topical cream tamsulosin 0.4 mg capsule 0.4 mg PO BID #180 caps 12/03/19 04/01/24 Rx fluticasone propionate 50 1 spray intranasal DAILY 03/16/20 04/01/24 History mcg/actuation nasal spray,suspension albuterol sulfate 90 mcg/actuation 2 inh inhalation Q6H PRN SOB 09/17/22 04/01/24 History breath activated powder inhaler atenolol 50 mg tablet 50 mg PO QAM 03/14/23 04/01/24 History pantoprazole 20 mg tablet,delayed 20 mg PO QAM 01/30/24 04/01/24 History release oxycodone-acetaminophen 5 mg-325 1 tab PO Q6H PRN pain #14 tabs 02/03/24 04/01/24 Rx mg tablet (Percocet) aspirin 81 mg tablet,delayed 81 mg PO QPM 02/07/24 04/01/24 History release cyanocobalamin (vitamin B-12) 1,000 mcg IM .EVERY 30 DAYS 02/07/24 04/01/24 History 1,000 mcg/mL injection solution iron,carbonyl 65 mg-vitamin C 125 1 tab PO Q OTHER DAY 02/07/24 04/01/24 History mg tablet,delayed release (Vitron-C) isosorbide mononitrate 60 mg 120 mg PO QAM 02/07/24 04/01/24 History tablet,extended release 24 hr lidocaine-prilocaine 2.5 %-2.5 % 1 applic topical UD 02/07/24 04/01/24 History topical cream ondansetron HCl 8 mg tablet 8 mg PO Q8 PRN Nausea 02/07/24 04/01/24 History polyethylene glycol 3350 17 17 g PO DAILY 02/07/24 04/01/24 History gram/dose oral powder (Miralax) prochlorperazine maleate 10 mg 10 mg PO Q6 PRN Nausea 02/07/24 04/01/24 History tablet magnesium oxide 400 mg (241.3 mg 400 mg PO BID #30 tabs 02/13/24 04/01/24 Rx magnesium) tablet furosemide 20 mg tablet (Lasix) 20 mg PO DAILY 03/20/24 04/01/24 History metformin 500 mg tablet,extended 1,000 mg PO BID 03/20/24 04/01/24 History release 24 hr L.acidophilus-L.plantarum-B.animalis-B.longum 1 cap PO DAILYBB 04/01/24 04/01/24 History 2 billion cell capsule (Probiotic Acidophilus Beads) potassium chloride 10 mEq 10 meq PO QAM 04/01/24 04/01/24 History capsule,extended release ranolazine 500 mg tablet,extended 500 mg PO [facility] 04/01/24 04/01/24 History release,12 hr Past Med/Surg History Problem List (Updated 04/01/24 @ 15:30 by Francisco Morgan MD) Dyspnea Primary pancreatic cancer with metastasis to other site Melena Acute hyponatremia (Acute) Elevated troponin I level (Acute) Anemia (Acute) Pneumonia (Acute) Oropharyngeal candidiasis COVID-19 virus infection Rapidly progressive weakness Elevated troponin Pancytopenia COVID-19 (Acute) Neutropenia (Acute) Acute hyponatremia (Acute) Pancreatic cancer (Acute) Anemia (Acute) Non-ST elevation NE (NSTEMI) (Acute) Weakness (Acute) S/P coronary artery stent placement Non-ST elevation (NSTEMI) myocardial infarction Abdominal pain Fever (Acute) Pancreatic cancer metastasized to liver (Acute) Acute non-ST elevation myocardial infarction (NSTEMI) (Acute) Abnormal LFTs Severe sepsis Encounter for pre-operative examination Hx of CABG 1999 > 4 vessels > [facility] > follows with Dr. Lunsford Angina pectoris chronic stable class I per cardio Aortic stenosis (Acute) CAD (coronary artery disease) (Acute) Dry skin (Acute) Enlarged prostate with lower urinary tract symptoms (LUTS) (Acute) Former smoker (Acute) GERD (gastroesophageal reflux disease) (Acute) Hypercholesterolemia (Acute) Hypertension (Acute) Nephrolithiasis (Acute) Non Q wave myocardial infarction (Acute) 2002 Shortness of breath (Acute) per pt, uses inhaler in AM and resolved Type 2 diabetes mellitus (Acute) Medical History Pancreatic cancer stage 4; now with mets Hx of renal calculi Dyspnea reason for inhaler, uses every morning Angina pectoris chronic stable class I per cardio; follows closely with [facility] Non Q wave myocardial infarction 2002; 'questionable per pt' CAD (coronary artery disease) CABG August 1999, LM and LAD stents August 2009, RCA and LAD stents September 2009 Aortic stenosis follows with Dr. Lunsford; mild-mod per 08/27/23 ECHO BPH (benign prostatic hyperplasia) GERD (gastroesophageal reflux disease) Hyperlipidemia Hypertension Type 2 diabetes mellitus Surgical History Hx of CABG 1999 > 4 vessels > [facility] > follows with Dr. Lunsford History of insertion of pancreatic stent (01/16/24) [facility] Hx of biopsy (12/2023) pancreas and liver History of left cataract surgery History of esophagogastroduodenoscopy (EGD) History of colonoscopy History of tooth extraction History of tonsillectomy H/O lithotripsy Hx of cardiac cath 2009 > 5 stents - [facility] (LM and LAD stents August 2009, RCA and LAD stents September 2009) Family History Father Myocardial infarction Other Diabetes Heart disease Social History Smoking Status: Former smoker Tobacco Type: Cigarettes Second Hand Exposure: No; Do You Dip or Chew Tobacco: No; Hx Alcohol Use: Yes Alcohol type: hard liquor Hx Substance Use: No Preferred Language: Citizen Of [place] Communication Ability: Effective Binder Operator Required: No Beliefs That Will Affect Care: None marital status: Current Living Situation: Significant Other Current Living Situation Comment: house- no stairs Feels Safe at Home: Yes Assistive Devices: Glasses, Hearing Aid - Bilateral and Walker Review of Systems Review of Systems: all noted and negative except for above Physical Exam Physical Exam: General- oriented x 3, not in distress, speaks in sentences with no effort or accessory muscle use Head- atraumatic Eyes- PERRL, EOMI, anicteric ENT- oropharynx clear Neck- supple, no JVD, no adenopathy, no thyromegaly; carotids +2/2, no bruits appreciated Lungs- clear to auscultation bilaterally, no rales/wheezes Heart- normal rate, regular rhythm; (+) grade 2 holosytolic murmur, no gallop, no rub appreciated Abdomen- normal bowel sounds,(+) mild distention, soft, (+) mild tenderness on all quadrants, no masses or hepatosplenomegaly Extremities- (+) grade 1 lower leg edema, no calf tenderness; peripheral pulses intact Neuro- alert, oriented x 3; CN 2-12 grossly intact; motor 5/5 bilaterally;sensation 100% on all extremities; no other gross focal neurologic deficits Skin- warm & dry Results & Data Results & Data Vital Signs (Past 12 Hours) Vital Signs Temp Pulse Pulse Resp BP BP Pulse Ox 04/01/24 14:21 36.5 C 04/01/24 14:00 96/73 L 04/01/24 14:00 83 23 98 04/01/24 13:36 134/70 99 04/01/24 13:18 98 04/01/24 13:00 77 13 04/01/24 12:51 75 24 100 04/01/24 12:42 75 21 04/01/24 12:30 124/66 04/01/24 12:27 76 14 99 04/01/24 12:15 100 04/01/24 12:09 78 14 124/68 100 04/01/24 12:09 04/01/24 12:07 78 04/01/24 11:58 04/01/24 11:57 109/76 04/01/24 11:31 36.5 C 76 20 89/47 L 97 O2 Del Method 04/01/24 14:21 04/01/24 14:00 04/01/24 14:00 04/01/24 13:36 04/01/24 13:18 04/01/24 13:00 04/01/24 12:51 04/01/24 12:42 04/01/24 12:30 04/01/24 12:27 04/01/24 12:15 04/01/24 12:09 Room Air 04/01/24 12:09 Room Air 04/01/24 12:07 04/01/24 11:58 Room Air 04/01/24 11:57 04/01/24 11:31 Room Air Code Status & VTE Plan VTE Prophylaxis Plan VTE Prophylaxis will be ordered: Yes (3) Pneumonia Laterality: right Lung location: upper lobe of lung Pneumonia type: due to unspecified organism Qualified Code(s): J18.9 - Pneumonia, unspecified organism (5) Pancreatic cancer Pancreatic malignancy location: other parts of pancreas Qualified Code(s): C25.7 - Malignant neoplasm of other parts of pancreas
[2024-04-01] MEDS: IPRATROPIUM BROMIDE NEB SOLN 0.02% 0.5MG/2.5ML VIAL NEB STA (15:31)
[2024-04-01] MEDS: LEVALBUTEROL 1.25 MG/3 ML NEB NEB STA (15:31)
--- NOTE | 2024-04-01 15:50 | CT Scan Report ---
CT OF THE ABDOMEN AND PELVIS WITHOUT CONTRAST CLINICAL HISTORY: Abdominal distention, r/o ascites, liver mets. Pancreatic cancer. COMPARISON STUDY: CT of the abdomen and pelvis February 07, 2024. MRCP February 08, 2024. TECHNIQUE: Axial images of the abdomen and pelvis were obtained without IV contrast. Images were revi ewed in the axial, sagittal, and coronal planes. Automated exposure control was utilized for the betito dy. A dose lowering technique was utilized adhering to the principles of ALARA. FINDINGS: Numerous small subpleural pulmonary nodules are noted. Please note that the chest CT will b e reported separately. There is a small amount of abdominal and pelvic ascites. No pneumatosis, free air or portal venous gas is present. A biliary stent remains in place. Moderate biliary ductal dilata tion is similar to CT of February 07, 2024. Numerous hepatic lesions are similar to prior CT. Index s egment 7 lesion on image 52 of 373 measures 3.8 cm. These are suboptimally assessed on unenhanced exa m. Gallbladder distention has increased. Note is also made of gallbladder wall thickening with perich olecystic fluid. Pancreatic head lesion is not well-visualized on this unenhanced exam. No pancreatic ductal dilatation. There is no hydronephrosis. There is no evidence for a bowel obstruction. A moder ate amount of stool within the colon and rectum is present. There is ascites within bilateral inguina l hernias. No suspicious lesions within the visualized skeletal structures are identified. There is c olonic diverticulosis without evidence for acute diverticulitis. IMPRESSION: 1. Increase in gallbladder distention with gallbladder wall thickening and pericholecystic fluid. Slu dge versus stones within the gallbladder. The findings are suspicious for acute cholecystitis. 2. Biliary stent in place. No change in moderate biliary ductal dilatation. 3. No significant change hepatic metastases. Primary pancreatic lesion not well-visualized on unenhan codi CT. 4. Small amount of abdominal and pelvic ascites. 5. No evidence for a bowel obstruction. Moderate amount of stool within the colon and rectum. ACT 112: Negative or not required by law. Electronically signed by: Owen Valle M.D. 04/01/2024 3:48 PM
--- NOTE | 2024-04-01 16:12 | XRay Report ---
EXAM: Chest x-ray 2 view CLINICAL HISTORY: Wheezing history of cancer PRIORS: 02/25/2024 TECHNIQUE: AP portable upright FINDINGS: The chest is well-expanded. A right sided Mediport catheter is present with distal tip at the atriocaval junction. Streaky opacity is present in the right upper lobe, appearing in the interval. Median sternotomy wires and postsurgical change of the mediastinum noted. Moderate to advanced atherosclerotic disease of the aortic knob noted. Heart size is normal. No pneumothorax. Trachea is patent. IMPRESSION: Streaky opacity in the right upper lobe, appearing in the interval, which may suggest pneumonia given the stated clinical history. Electronically signed by Yanci Hernández 04-01-2024 4:11 PM
[2024-04-01] MEDS: DEXTROSE 50% 50 ML SYRINGE IV PRN (17:09)
[2024-04-01 17:15] LABS: Adenovirus PCR Not Detected (NotDetected); Bordetella parapertussis PCR Not Detected (NotDetected); Bordetella pertussis PCR Not Detected (NotDetected); Chlamydia pneumoniae PCR Not Detected (NotDetected); Coronavirus 229E PCR Not Detected (NotDetected); Coronavirus CoV-2 (COVID19)PCR Not Detected (NotDetected); Coronavirus HKU1 PCR Not Detected (NotDetected); Coronavirus NL63 PCR Not Detected (NotDetected); Coronavirus OC43PCR Not Detected (NotDetected); Human Metapneumovirus PCR Not Detected (NotDetected); Influenza A PCR Not Detected (NotDetected); Influenza B PCR Not Detected (NotDetected); Mycoplasma pneumoniae PCR Not Detected (NotDetected); Parainfluenza Virus 1 PCR Not Detected (NotDetected); Parainfluenza Virus 2 PCR Not Detected (NotDetected); Parainfluenza Virus 3 PCR Not Detected (NotDetected); Parainfluenza Virus 4 PCR Not Detected (NotDetected); Respiratory Syncytial VirusPCR Not Detected (NotDetected); Rhinovirus/Enterovirus PCR Not Detected (NotDetected)
[2024-04-01] MEDS: ACETAMINOPHEN 325 MG TAB PO PRN (17:25)
[2024-04-01] MEDS: INSULIN ASPART PER UNIT CHARGE SC SCH (17:59)
[2024-04-01] MEDS: 4.5GM X1 IV ONE (18:12)
[2024-04-01] MEDS: SODIUM CHLORIDE 0.9% 1,000 ML IV SCH (18:13)
[2024-04-01 18:17] LABS: Hematocrit (blood only) 23.5 % (42.0-52.0); Hemoglobin 7.7 g/dl (14.0-18.0)
[2024-04-01 18:30] LABS: BUN Creatinine Ratio 23.3 (10-20); Calcium 7.8 mg/dl (8.6-10.3); Creatinine Clr Calc Pharmacy 62.9 ml/min; Potassium 4.2 mmol/L (3.5-5.1)
--- OUTSIDE RECORDS SUMMARY | 2024-04-01 18:53 | External Medical Summary | Summary of Care ---
Author Name Unknown Organization [facility] Address [address] [place] [address] Phone [phone] Care Team Providers Care Molecular Genetic Pathologist Name Role Phone Pedro Luis Bowens DO Primary Care Provider [phone] Reason for Visit * Reason Onset Date Comments [facility]: Screening 03/31/2024 Encounter Details Date Type Department Care Team (Late st Contact Info) Description 03/31/2024 Telephone [facility], [facility] [address] [place] [address] Shari Bravo, RUTH [address] [place] [address] [facility]: Screening Allergies Active Allergy Reactions Criticality Noted Date Comments Iodinated Contrast Media Rash 08/29/2009 Pt got a rash after his cath on 08/23/09 Levofloxacin 11/03/2009 Nausea jittery Lisinopril 10/01/2013 Cough Rash documented as of this encounter (statuses as of 03/31/2024) Medications ASPIRIN 81 MG PO CHEW Take [...] before breakfast. 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 DX: E11.9 1 Kit 12/29/19 21 Active Vitamin D3 25 MCG (1000 UT) Oral Capsule Take 1 Capsule by mouth every evening. 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 ([facility]) TAKE ONE TABLET BY MOUTH TWICE A DAY 200 Tablet 3 4 4:58 PM EST 05/02/19 24 025 Active Isosorbide Mononitrate ER 60 MG Oral Tablet Extended Release 24 Hour (Imdur)Indication s:Old myocardial infarction TAKE ONE TABLET BY MOUTH TWICE A DAY 200 Tablet 2 4 7:22 AM EST 08/07/19 24 025 Active Additional Information Patient taking differently: Taking 2 tablets in the morning, Reported on 03/23/2024 Tamsulosin HCl 0.4 MG Oral Capsule (Flomax) TAKE ONE CAPSULE BY MOUTH TWICE A DAY 200 Capsule 2 4 7:22 AM EST 08/07/19 24 025 Active Pantoprazole Sodium 20 MG Oral Tablet Delayed Release (Protonix)Indicat ions:Gastroesopha geal reflux disease without esophagitis Take 1 Tablet by mouth in the morning. 100 Tablet 3 4 10:27 AM EST 11/08/19 24 Active Clopidogrel Bisulfate 75 MG Oral Tablet (pLAVix)Indicatio ns:Old myocardial infarction TAKE ONE TABLET BY MOUTH EVERY DAY 100 Tablet 3 4 7:22 AM EST 11/12/19 24 025 Active Cyanocobalamin 1000 MCG/ML Injection Solution (Cyanocobalamin)I ndications:Vitami n B12 deficiency INJECT 1ML INTRAMUSCULARLY EVERY 30 DAYS 3 mL 1 11/29/19 24 Active Additional Information Patient taking differently: INJECT 1ML INTRAMUSCULARLY EVERY other 30 DAYS, Reported on 03/05/2024 Fluticasone Propionate 50 MCG/ACT Nasal Suspension (Flonase)Indicati ons:Chronic maxillary sinusitis ADMINISTER ONE SPRAY INTO EACH NOSTRIL DAILY 48 g 3 4 2:12 PM EDT 01/20/20 24 Active Nitroglycerin 0.4 MG Sublingual Tablet Sublingual (Nitrostat) One tablet under tongue if needed for chest pain. May repeat 3 times. If chest pain continues, call [phone] 25 Tablet 3 01/27/20 24 Active Ondansetron HCl 8 MG Oral Tablet (Zofran)Indicatio ns: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) Take 1 Tablet by mouth every 8 hours as needed for Nausea. 30 Tablet 3 02/04/20 24 Active Prochlorperazine Maleate 10 MG Oral Tablet (Compazine)Indica tions: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) Take 1 Tablet by mouth every 6 hours as needed for Nausea. 30 Tablet 3 02/04/20 24 Active Lidocaine-Priloca ine 2.5-2.5 % External Cream (Emla)Indications :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) APPLY TO SKIN OVER MEDIPORT & COVER 1HR PRIOR TO ACCESSING. 30 g 1 02/04/20 24 Active Acetaminophen 500 MG Oral Tablet (Tylenol) Take 2 Tablets by mouth every 6 hours as needed for Pain, Breakthrough (up to 3000 mg daily (6 tablets)). Active Magnesium Oxide 400 MG Oral Tablet Take 1 Tablet by mouth in the morning and 1 Tablet before bedtime. 02/13/20 24 Active Magic Swizzle (Lidocaine-Benadr yl-Maalox) oral solutionIndicatio ns:Oral pain Swish and spit 15 mL in the morning and 15 mL at noon and 15 mL before bedtime. 300 mL 02/18/20 24 Active glipiZIDE ER 2.5 MG Oral Tablet Extended Release 24 Hour (glipiZIDE XL)Indications:Ty pe 2 diabetes mellitus with hemoglobin A1c goal of less than 7.0% ([facility]) Take 1 Tablet by mouth in the morning. Before breakfast. 90 Tablet 2 02/18/20 24 Active Lidocaine Viscous HCl 2 % Mouth/Throat Solution Swish and spit 15 mL as needed for Pain, Mild (mouth discomfort). 200 mL 3 02/19/20 24 Active Additional Information Patient not taking.Reported on 03/23/2024 Atenolol 50 MG Oral Tablet (Tenormin)Indicat ions:Old myocardial infarction Take 1 Tablet by mouth in the morning. 100 Tablet 3 4 5:18 PM EST 02/28/20 24 Active Loperamide HCl 2 MG Oral Tablet (Imodium A-D) Take 1 Tablet by mouth 3 times a day as needed for Diarrhea. Then one tablet after each loose BM, no more than 3 tablets per day 03/06/20 24 Active metFORMIN HCl ER 500 MG Oral Tablet Extended Release 24 Hour (Glucophage XR) Take 2 Tablets by mouth 2 times a day with morning and evening meals. 360 Tablet 3 03/06/20 24 Active Ranolazine ER 500 MG Oral Tablet Extended Release 12 Hour Take 1 Tablet by mouth in the morning and 1 Tablet before bedtime. 14 Tablet 03/06/20 24 Active Fluconazole 40 MG/ML Oral Suspension Reconstituted (Diflucan) Take 5 mL by mouth in the morning. 02/28/20 24 Active predniSONE 50 MG Oral Tablet (Deltasone)Indica tions: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),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) Take 1 tablet 13 hours, 7 hours, and [address] appt 3 Tablet 03/10/20 24 Active diphenhydrAMINE HCl 50 MG Oral Capsule (Benadryl)Indicat ions: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),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) Take 1 capsule [address] appt 1 Capsule 03/10/20 24 Active Furosemide 40 MG Oral Tablet (Lasix)Indication s:Anasarca,Bilate ral leg edema One tablet daily 30 Tablet 6 03/11/20 24 Active Potassium Chloride ER 10 MEQ Oral Capsule Extended ReleaseIndication s:Bilateral leg edema Take 1 Capsule by mouth in the morning. 30 Capsule 5 03/11/20 24 Active Hospital, Clinic, or Other Facility Administered Medication Ordered Dose Route Frequency Start Date End Date Status Vitamin B-12 (Cyanocobalamin) inj 1,000 mcgIndications:Vitamin B 12 deficiency 1000 mcg IM [id number] 03/23/2024 12/26/2026 Active documented as of this encounter (statuses as of 03/31/2024) Active Problems Problem Noted Date Diagnosed Date Secondary malignant neoplasm of liver and intrahepatic bile duct 02/17/2024 Malignant neoplasm of head of pancreas 4 Metastasis from pancreatic cancer 01/28/2024 Encounter for antineoplastic chemotherapy 2023 Atherosclerosis of red devil ar teries of extremities with rest pain, bilateral legs 11/08/2023 Pulmonary hypertension, unspecified 07/17/2022 B12 deficiency 03/22/2022 Moderate aortic stenosis 11/28/2021 Occupational exposure to noise 09/27/2020 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 S/P primary angioplasty with coronary stent 04/2009 Type 2 diabetes mellitus wit h hemoglobin A1c goal of less than 8.0% 08/30/2009 Overview (07/19/2015): ICD-10 update of inactive term S/P angioplasty with stent 08/29/2009 Aortocoronary bypass status 08/23/2009 Overview (08/23/2009): CABG X 4-1999 DM type 2 causing vascular disease 08/23/2009 Old myocardial infarction 08/23/2009 Pure hypercholesterolemia Overview (07/25/2015): ICD-10 update of inactive term BPH (benign prostatic hyperplasia) documented as of this encounter (statuses as of 03/31/2024) Resolved Problems Problem Noted Date Diagnosed Date Resolved Date Dehydration 02/24/2024 03/23/2024 Current mild episode of sania r depressive [...] Per HTN Protocol #27. [employer] Other*[id number] 09/23/2009 05/01/2016 Overview (09/23/2009): Study Titile: Genomic Markers for Patients with Cardiovascular Disease Project #[id number] PI: Estela Sandoval MD Please call [phone] with study related questions Dyslipidemia, goal LDL below 70 08/30/2009 02/26/2013 HTN, goal below 130/80 08/30/200911/14 Overview: Per HTN Protocol #27. History of drug allergy 08/29/200906/23 Dyslipidemia, goal LDL below 70 08/23/2009 02/26/2013 ACEI/ARB contraindicated 09/2013 documented as of this encounter (statuses as of 03/31/2024) Immunizations Name Administration Dates Next Due COVID-19 [...] Date Recorded PHQ Adult Total Score 0 03/02/2024 Hunger Vital Sign Answer Date Recorded Within the past 12 months, y ou worried that your food would run out before you got the money to buy more. Never true 03/02/20 24 Within the past 12 months, t he food you bought just didn't last and you didn't have money to get more. Never true 03/02/2024 Childcare Answer Date Recorded Do you feel overwhelmed with taking care of a child, family member or friend? No 03/02/2024 Does your family need help f inding childcare? (Household - for ages 0-17 years) Not on file 03/02/2024 Clothing Answer Date Recorded Have you been unable to get clothing when it was really needed? No 03/02/2024 Is your family able to get c lothes or diapers when needed? (Household - for ages 0-17 years) Not on file 03/02/2024 Personal Safety Answer Date Recorded Do you feel unsafe or have concerns for your saf ety? No 03/02/2024 Do you have concerns for you r family's safety? (Household - for ages 0-17 years) Not on file 03/02/2024 Utilities Answer Date Recorded Do you have trouble paying y our heating, water, or electric bill? No 03/02/2024 Is your family able to pay t he heat, water, or electric bill? (Household - for ages 0-17 years) Not on file 03/02/2024 Does your family have access to good internet? (Household - for ages 0-17 years) Not on file 03/02/2024 Employment Status Answer Date Recorded Are you unemployed or without regular income? No 03/02/2024 Does the household have a re lar source of income? (Household - for ages 0-17 years) Not on file 03/02/2024 Social Connections Answer Date Recorded How often do you feel lonely or isolated from th ose around you? Never 03/02/2024 Financial Resource Strain Answer Date R ecorded Do you have any trouble payi ng for your medications, or do you think you might in the future? No 03/02/2024 Does your family have troubl e paying for medicine? (Household - for ages 0-17 years) Not on file 03/02/2024 Transportation Needs Answer Date Record ed Do you have trouble getting a ride to medical visits or work? (Adult - for ages 18 years and over) Not on file 03/02/2024 Does your family have a hard time getting a ride to doctors visits? (Household - for ages 0-17 years) Not on file 03/02/2024 Has lack of transportation k ept you from medical appointments, meetings, work, or from getting things needed for daily living? Check all that apply. No 03/02/2024 Do you (or your family) have trouble finding or paying for a ride (transportation)? (Household - for ages 0-17 years) Not on file 03/02/2024 Housing Stability Answer Date Recorded Do you currently live in a s helter or have no steady place to sleep at night? No 03/02/2024 Do you think you are at risk of becoming homeless? (Adult - for ages 18 years and over) Not on file 03/02/2024 Does your family worry about paying for your home or becoming homeless? (Household - for ages 0-17 years) Not on file 1 05/03/2023 Are you homeless or worried that you might be in the future? No 03/02/2024 Are you (or your family) jazmine eless or worried that you might be in the future? (Household - for ages 0-17 years) Not on file Food Insecurity Answer Date Recorded Do you need food for this week? No 03/02/2024 Are you able to get enough f ood for your family? (Household - for ages 0-17 years) Not on file 03/02/2024 Does your family need food t his week? (Household - for ages 0-17 years) Not on file 03/02/2024 Do you always have enough fo od for your family? (Household - for ages 0-17 years) Not on file 03/02/2024 Sex and Gender Information Value Date Recorded Sex Assigned at Male 03/12/2019 9:54 AM EST Legal Sex Male 5:54 AM EST Gender Identity Male 03/12/2019 9:54 AM EST Sexual Orientation Straight 03/12/2019 9: 54 AM EST documented as of this encounter Miscellaneous Notes * Telephone Encounter - Shari Bravo LPN - 03/31/2024 3:53 PM EST Michael Gutierrez was referred as a potential candidate for enrollment for [facility]. A review of this chart was completed and: Michael does not meet criteria for enrollment into [facility]. Referral Source: [facility] Criteria for Ineligibility: Not Located in Service Area Referring care team was notified via : Epic communication documented in this encounter Plan of Treatment Upcoming Encounters Date Type Department Care Team (Latest Contact Info) Description 04/06/2024 9:20 AM EST Office Visit Family Practice [address], [place] [address] [place] [address] Pedro Luis Bowens, [address] [place] [address] 04/17/2024 9:30 AM EST Laboratory Laboratory, [facility] [address] [facility] [place] [address] [facility] [address] [facility] [place] [address] 04/17/2024 10:00 AM EST Imaging Radiology [address] [facility] [place] [address] 04/21/2024 8:00 AM EST Hospital Encounter ENDO OSSC, Endoscopy Room [facility] [address] [facility] [place] [address] Jose E Bai MD [address] [place] [address] 04/21/2024 8:00 AM EST - 04/21/2024 8:45 AM EST Surgery ENDO O[facility]C, Endoscopy Room [facility] [address] [facility] [place] [address] Jose E Bai MD [address] [place] [address] ENDOSCOPIC RETROGRADE CHOLANGIOPANCREATOGRAPHY (ERCP) DIAGNOSTIC 04/28/2024 9:30 AM EST Office Visit Hematology/Oncol roman [place] [address] [place] [address] Marimar Del Castillo MD [address] [place] [address] Scheduled Procedures Name Priority Associated Diagnoses Date/Ti me ENDOSCOPIC RETROGRADE CHOLANGIOPANCREATOGRAPHY (ERCP) DIAGNOSTIC Pancreatic mass Liver mass 04/21/2024 8:00 AM EST ENDOSCOPIC RETROGRADE CHOLANGIOPANCREATOGRAPHY (ERCP) W/STENT REMOVAL AND EXCHANGE; INC DILATION, GUIDE WIRE AND SPHINCTEROTOMY Pancreatic mass Liver mass 04/21/2024 8:00 AM EST Health Maintenance Due Date Last Done Comments Adult Wellness Visit 12/15/2021 12/15/2020 Albumin/Creatinine Ratio 07/11/2024 024, 07/17/2022, 07/05/2021, Additional history exists Diabetic Foot Exam 07/11/2024 07/12/2023, 0 07/17/2022, 07/11/2021, Additional history exists Diabetic Eye Exam 07/21/2024 07/22/2023, , 07/12/2022, Additional history exists HbA1c 09/02/2024 03/04/2024, 10/23, 07/12/2023, Additional history exists Depression Screening 03/02/2025 03/02/2024 GFR 03/20/2025 03/20/2024, 02/22, 03/04/2024, Additional history exists DTap/Tdap Vaccines (3 - Td or Tdap) 11/07/2033 11/08/2023, 10/01/2013, 09/17/2008 Pneumococcal Vaccine: 50+ Years Completed 09/02/2015, 09/16/2009 Zoster Vaccines Completed [...] this encounter Medical Devices Implanted Type Area Linux Devops Engineer Device Identifier Shelf Expiration Date Model / Serial / Lot Stent Bili Duodenal [id number] - [id number] Implanted:Qty: 1 on 01/16/2024 by Jose E Bai MD at ENDOSCOPY [facility] N/A: [employer] 12/02/2025 [id number] / / [id number] documented as of this encounter Advance Directives [...] Power of Attor ila? No Care Teams Molecular Genetic Pathologist Relationship Specialty Start Date End Date Pedro Luis Bowens DO [address] [place] [address] PCP - General Internal Medicine 09/09/23 documented as of this encounter
--- OUTSIDE RECORDS SUMMARY | 2024-04-01 18:53 | External Medical Summary | Summary of Care ---
Author Name Unknown Organization [facility] Address [address] [place] [address] Phone [phone] Care Team Providers Care Rn Staff Name Role Phone Pedro Luis Bowens DO Primary Care Provider Reason for Visit * Reason Onset Date Comments Order Request 03/26/2024 Encounter Details Date Type Department Care Team (Late st Contact Info) Description 03/26/2024 Telephone Gastroenterology, [facility] [address] [place] [address] Jose E Bai MD [address] [place] [address] Order Request Allergies Active Allergy Reactions Criticality Noted Date Comments Iodinated Contrast Media Rash 08/29/2009 Pt got a rash after his cath on 08/23/09 Levofloxacin 11/03/2009 Nausea jittery Lisinopril 10/01/2013 Cough Rash documented as of this encounter (statuses as of 03/26/2024) Medications ASPIRIN 81 MG PO CHEW Take 1 Tablet by mouth at bedtime. 100 Tab 3 08/25/19 10 Active Iron-Vitamin C 65-125 MG Tablet Take 1 Tablet by mouth every other day. Active Multiple Vitamin (MULTI-DAY) Tablet Take 1 Tablet by mouth every evening. Active Probiotic Product (PROBIOTIC ACIDOPHILUS BIOBEADS) Capsule Take 1 Cap by mouth daily before breakfast. 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 DX: E11.9 1 Kit 12/29/19 21 Active Vitamin D3 25 MCG (1000 UT) Oral Capsule Take 1 Capsule by mouth every evening. Active Ranolazine ER 1000 MG Oral Tablet Extended Release 12 HourIndications:C oronary artery disease of wainwright artery of wainwright heart with stable angina pectoris ([facility]) TAKE ONE TABLET BY MOUTH TWICE A [...] hemoglobin A1c goal of less than 7.0% ([facility]) Take 1 Tablet by mouth in the [...] mcgIndications:Vitamin B 12 deficiency 1000 mcg IM [id number] 03/23/2024 12/26/2026 Active documented as of this encounter (statuses as of 03/26/2024) Active Problems Problem Noted Date Diagnosed Date Secondary malignant neoplasm of liver and intrahepatic bile duct 02/17/2024 Malignant neoplasm of head of pancreas 11/25/202 4 Metastasis from pancreatic cancer 01/28/2024 Encounter for antineoplastic chemotherapy 2023 Atherosclerosis of wainwright ar teries of extremities with rest pain, bilateral legs 11/08/2023 Pulmonary hypertension, unspecified 07/17/2022 B12 deficiency 03/22/2022 Moderate aortic stenosis 11/28/2021 Occupational exposure to noise 09/27/2020 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 [employer] Other*[id number] 09/23/2009 05/01/2016 Overview (09/23/2009): Study Titile: Genomic Markers for Patients with Cardiovascular Disease Project #[id number] PI: Estela Sandoval MD Please call [phone] with study related questions Dyslipidemia, goal LDL below 70 08/30/2009 02/26/2013 HTN, goal below 130/80 08/30/200911/14 Overview: Per HTN Protocol #27. History of drug allergy 08/29/200906/23 Dyslipidemia, goal LDL below 70 08/23/2009 02/26/2013 ACEI/ARB contraindicated 09/2013 documented as of this encounter (statuses as of 03/26/2024) Immunizations Name Administration Dates Next Due COVID-19 [...] encounter Miscellaneous Notes * Telephone Encounter - Maroin Pena OSA - 03/26/2024 3:13 PM EST Pt is scheduled for repeat EUS on 04/21/[address] orders for Pancreatic mass [K86.89] Liver mass [R16.0] Thank you DARIA Simms 03/26/2024 3:14 PM documented in this encounter Plan of Treatment Upcoming Encounters Date Type Department Care Team (Latest Contact Info) Description 04/06/2024 9:20 AM EST Office Visit Family Practice [address], [place] [address] [place] [address] Pedro Luis Bowens DO [address] [place] [address] 04/17/2024 9:30 AM EST Laboratory Laboratory, [facility] [address] [facility] [place] [address] [facility] [address] [facility] [place] [address] 04/17/2024 10:00 AM EST Imaging Radiology [address] [facility] [place] [address] 04/21/2024 8:00 AM EST Hospital Encounter ENDO OSSC, Endoscopy Room [facility] [address] [facility] [place] [address] Jose E Bai MD [address] [facility] [place] [address] 04/21/2024 8:00 AM EST - 04/21/2024 8:45 AM EST Surgery ENDO OSSC, Endoscopy Room [facility] [address] [facility] [place] [address] Jose E Bai MD [address] [facility] [place] [address] ENDOSCOPIC RETROGRADE CHOLANGIOPANCREATOGRAPHY (ERCP) DIAGNOSTIC 04/28/2024 9:30 AM EST Office Visit Hematology/Oncol roman [place] [address] [place] [phone] Marimar Del Castillo MD [address] [place] [address] Scheduled Procedures Name Priority Associated Diagnoses Date/Ti [...] this encounter Medical Devices Implanted Type Area Breakfast Server Device Identifier Shelf Expiration Date Model / Serial / Lot Stent Bili Duodenal [id number] - [id number] Implanted:Qty: 1 on 01/16/2024 by Jose E Bai MD at ENDOSCOPY [facility] N/A: [employer] 12/02/2025 [id number] / / [id number] documented as of this encounter Advance Directives [...] Power of Attor ila? No Care Teams Rn Staff Relationship Specialty Start Date End Date Pedro Luis Bowens DO [address] [place] [address] PCP - General Internal Medicine 09/09/23 documented as of this encounter
--- OUTSIDE RECORDS SUMMARY | 2024-04-01 18:53 | External Medical Summary | Summary of Care ---
Author Name Unknown Organization [facility] Address [address] [place] [address] Phone [phone] Care Team Providers Care Appeals Assistant Name Role Phone Pedro Luis Bowens DO Primary Care Provider [phone] Reason for Visit * Reason Onset Date Comments Information 03/31/2024 Encounter Details Date Type Department Care Team (Late st Contact Info) Description 03/31/2024 Telephone [facility] [place] [address] [place] [address] Angel Jeffries, DARIA [address], [place] [id number] Information (//) Allergies Active Allergy Reactions Criticality Noted Date [...] hemoglobin A1c goal of less than 7.0% ([facility]),DM type 2 causing vascular disease ([facility]),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 DX: E11.9 1 Kit 12/29/19 21 Active Vitamin D3 25 MCG (1000 UT) Oral Capsule Take 1 Capsule by mouth every evening. Active Ranolazine ER 1000 MG Oral Tablet Extended Release 12 HourIndications:C oronary artery disease of [place] artery of [place] heart with stable angina pectoris ([facility]) TAKE ONE TABLET BY MOUTH TWICE [...] hemoglobin A1c goal of less than 7.0% ([facility]) Take 1 Tablet by mouth in [...] mcgIndications:Vitamin B 12 deficiency 1000 mcg IM [id number] 03/23/2024 12/26/2026 Active documented as of this encounter (statuses as of 03/31/2024) Active Problems Problem Noted Date Diagnosed Date Secondary malignant neoplasm of liver and intrahepatic bile duct 02/17/2024 Malignant neoplasm of head of pancreas 11/25/202 4 Metastasis from pancreatic cancer 01/28/2024 Encounter for antineoplastic chemotherapy 2023 Atherosclerosis of [place] ar teries of extremities with rest pain, bilateral legs 11/08/2023 Pulmonary hypertension, unspecified 07/17/2022 B12 deficiency 03/22/2022 Moderate aortic stenosis 11/28/2021 Occupational exposure to noise 09/27/2020 Coronary artery disease of n ative artery of [place] heart with stable angina pectoris 09/17/2019 Gastroesophageal [...] Per HTN Protocol #27. [employer] Other*[id number] 09/23/2009 05/01/2016 Overview (09/23/2009): Study Titile: Genomic Markers for Patients with Cardiovascular Disease Project #[id number] PI: Estela Sandoval MD Please call [phone] with study related questions Dyslipidemia, goal LDL [...] No 03/02/2024 Does the household have a [facility]? (Household - for ages [...] encounter Miscellaneous Notes * Telephone Encounter - Angel Jeffries OSA - 03/31/2024 3:58 PM EST Not in service area documented in this encounter Plan of Treatment Upcoming Encounters Date Type Department Care Team (Latest Contact Info) Description 04/06/2024 9:20 AM EST Office Visit Family Practice [address], [place] [address] [place] [address] Pedro Lius Bowens, DO [address] [facility] [place] [address] 04/17/2024 9:30 AM EST Laboratory Laboratory, [facility] [address] [facility] [place] [address] [facility] [address] [place] [address] 04/17/2024 10:00 AM EST Imaging Radiology [address] [place] [address] 04/21/2024 8:00 AM EST Hospital Encounter ENDO OSSC, Endoscopy Room [facility] [address], [place] [address] Jose E Bai MD [address] [facility] [address] [place], [place] [address] 04/21/2024 8:00 AM EST - 04/21/2024 8:45 AM EST Surgery ENDO OSSC, Endoscopy Room [facility] [address] [facility] [place], [place] [phone] Jose E Bai MD 132 [facility] [place], [place] [address] ENDOSCOPIC RETROGRADE CHOLANGIOPANCREATOGRAPHY (ERCP) DIAGNOSTIC 04/28/2024 9:30 AM EST Office Visit Hematology/Oncol ogalexia Conroy [place] [address] [place], [place] [phone] Marimar Del Castillo MD [address] [place] [address] Scheduled Procedures Name Priority Associated Diagnoses Date/Ti de ENDOSCOPIC RETROGRADE CHOLANGIOPANCREATOGRAPHY (ERCP) DIAGNOSTIC Pancreatic mass Liver mass 04/21/2024 8:00 AM EST ENDOSCOPIC RETROGRADE CHOLANGIOPANCREATOGRAPHY (ERCP) W/STENT REMOVAL AND EXCHANGE; INC DILATION, GUIDE WIRE AND SPHINCTEROTOMY Pancreatic mass Liver mass 04/21/2024 8:00 AM EST Health Maintenance Due Date Last Done Comments Adult Wellness Visit 12/15/2021 12/15/2020 Albumin/Creatinine Ratio 07/11/20242 024, 07/17/2022, 07/05/2021, Additional [...] this encounter Medical Devices Implanted Type Area Fleet Driver Device Identifier Shelf Expiration Date Model / Serial / Lot Stent Bili Duodenal [id number] - [id number] Implanted:Qty: 1 on 01/16/2024 by Jose E Bai MD at ENDOSCOPY [facility] N/A: Stomach [employer] 12/02/2025 PBD-1031-1 007 / / [id number] documented as of this encounter Advance Directives [...] Power of Attor ila? No Care Teams Appeals Assistant Relationship Specialty Start Date End Date Pedro Luis Bowens DO [address] [place] [address] PCP - General Internal Medicine 09/09/23 documented as of this encounter
--- OUTSIDE RECORDS SUMMARY | 2024-04-01 18:53 | External Medical Summary | Summary of Care ---
Author Name Unknown Organization [facility] Address [address] [place] [address] Phone [phone] Care Team Providers Care Claims Adjuster Supervisor Name Role Phone Pedro Luis Bowens DO Primary Care Provider [phone] Reason for Visit * Reason Onset Date Comments Order Request 03/26/2024 Encounter Details Date Type Department Care Team (Late st Contact Info) Description 03/26/2024 Telephone Gastroenterology, [facility] [address] [place] [address] Jose E Bai MD [address] [place] [address] Order Request Allergies Active Allergy Reactions Criticality [...] Cap by mouth daily before breakfast. 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 DX: E11.9 1 Kit 12/29/19 21 Active Vitamin D3 25 MCG (1000 UT) Oral Capsule Take 1 Capsule by mouth every evening. 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 ([facility]) TAKE ONE TABLET BY MOUTH [...] hemoglobin A1c goal of less than 7.0% ([facility]) Take 1 Tablet by mouth [...] mcgIndications:Vitamin B 12 deficiency 1000 mcg IM [id number] 03/23/2024 12/26/2026 Active documented as of this encounter (statuses as of 03/26/2024) Active Problems Problem Noted Date Diagnosed Date Secondary malignant neoplasm of liver and intrahepatic bile duct 02/17/2024 Malignant neoplasm of head of pancreas 11/25/202 4 Metastasis from pancreatic cancer 01/28/2024 Encounter for antineoplastic chemotherapy 2023 Atherosclerosis of [place] ar teries of extremities with rest pain, bilateral legs 11/08/2023 Pulmonary hypertension, unspecified 07/17/2022 B12 deficiency 03/22/2022 Moderate aortic stenosis 11/28/2021 Occupational exposure to noise 09/27/2020 Coronary artery disease of n ative artery of [place] heart with stable angina pectoris 09/17/2019 Gastroesophageal [...] Per HTN Protocol #27. [employer] Other*[id number] 09/23/2009 05/01/2016 Overview (09/23/2009): Study Titile: Genomic Markers for Patients with Cardiovascular Disease Project #[id number] PI: Estela Sandoval MD Please call [phone] with study related questions Dyslipidemia, goal LDL [...] encounter Miscellaneous Notes * Telephone Encounter - Marion Pena OSA - 03/26/2024 3:13 PM EST Pt is scheduled for repeat EUS on 04/21/[address] orders for Pancreatic mass [K86.89] Liver mass [R16.0] Thank you DARIA Simms 03/26/2024 3:14 PM documented in this encounter Plan of Treatment Upcoming Encounters Date Type Department Care Team (Latest Contact Info) Description 04/06/2024 9:20 AM EST Office Visit Family Practice [address], [place] [address] [place] [address] Pedro Luis Bowens DO 293 [place] [address] 04/17/2024 9:30 AM EST Laboratory Laboratory, [facility] [address] [facility] [place] [address] [facility] [address] [facility] [place] [address] 04/17/2024 10:00 AM EST Imaging Radiology [address] [facility] [place] [address] 04/21/2024 8:00 AM EST Hospital Encounter ENDO OSSC, Endoscopy Room [facility] 132 [facility] [place] [address] Jose E Bai MD 132 [facility] [place] [address] 04/21/2024 8:00 AM EST - 04/21/2024 8:45 AM EST Surgery ENDO OSSC, Endoscopy Room [facility] [address] [facility] [place] [address] Jose E Bai MD 132 [facility] [place] [address] ENDOSCOPIC RETROGRADE CHOLANGIOPANCREATOGRAPHY (ERCP) DIAGNOSTIC 04/28/2024 9:30 AM EST Office Visit Hematology/Oncol roman [place] [address] [place] [phone] Marimar Del Castillo MD [address] [place] [address] Scheduled Procedures Name Priority Associated Diagnoses Date/Ti [...] this encounter Medical Devices Implanted Type Area State Attorney Device Identifier Shelf Expiration Date Model / Serial / Lot Stent Bili Duodenal [id number] - [id number] Implanted:Qty: 1 on 01/16/2024 by Jose E Bai MD at ENDOSCOPY [facility] N/A: Stomach [facility] [employer] 12/02/2025 D-1031-1 007 / / [id number] documented as of this encounter Advance Directives [...] Power of Attor ila? No Care Teams Claims Adjuster Supervisor Relationship Specialty Start Date End Date Pedro Luis Bowens DO [address] [place] [address] PCP - General Internal Medicine 09/09/23 documented as of this encounter
--- OUTSIDE RECORDS SUMMARY | 2024-04-01 18:54 | External Medical Summary | Summary of Care ---
Author Name Unknown Organization [facility] Address [address] [place] [address] Phone [phone] Care Team Providers Care Victim Advocate Name Role Phone Pedro Luis Bowens DO Primary Care Provider [phone] Encounter Details Date Type Department Care Team (Late st Contact Info) Description 03/23/2024 12:00 PM EST Scheduled Telephone Care Coordination and Integration [address] [place] [address] Malgorzata Kohli, Community Health Morale Officer [address] [place] [address] Allergies Active Allergy Reactions Criticality Noted Date Comments Iodinated Contrast Media Rash 08/29/2009 Pt got a rash after his cath on 08/23/09 Levofloxacin 11/03/2009 Nausea jittery Lisinopril 10/01/2013 Cough Rash documented as of this encounter (statuses as of 03/23/2024) Medications ASPIRIN 81 MG PO CHEW Take [...] goal of less than 7.0% ([facility]),DM type 2 causing vascular disease ([facility]),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 DX: E11.9 1 Kit 12/29/19 21 Active Vitamin D3 25 MCG (1000 UT) Oral Capsule Take 1 Capsule by mouth every evening. 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 ([facility]) TAKE ONE TABLET BY MOUTH TWICE [...] goal of less than 7.0% ([facility]) Take 1 Tablet by mouth in [...] mcgIndications:Vitamin B 12 deficiency 1000 mcg IM [id number] 03/23/2024 12/26/2026 Active documented as of this encounter (statuses as of 03/23/2024) Active Problems Problem Noted Date Diagnosed Date Secondary malignant neoplasm of liver and intrahepatic bile duct 02/17/2024 Malignant neoplasm of head of pancreas 4 Metastasis from pancreatic cancer 01/28/2024 Encounter for antineoplastic chemotherapy 2023 Atherosclerosis of [place] ar teries of extremities with rest pain, bilateral legs 11/08/2023 Pulmonary hypertension, unspecified 07/17/2022 B12 deficiency 03/22/2022 Moderate aortic stenosis 11/28/2021 Occupational exposure to noise 09/27/2020 Coronary artery disease of n ative artery of [place] heart with stable angina pectoris 09/17/2019 Gastroesophageal [...] as of this encounter (statuses as of 03/23/2024) Resolved Problems Problem Noted Date Diagnosed Date [...] Per HTN Protocol #27. [employer] Other*[id number] 09/23/2009 05/01/2016 Overview (09/23/2009): Study Titile: Genomic Markers for Patients with Cardiovascular Disease Project #[id number] PI: Estela Sandoval MD Please call [phone] with study related questions Dyslipidemia, goal LDL below 70 08/30/2009 02/26/2013 HTN, goal below 130/80 08/30/200911/14 Overview: Per HTN Protocol #27. History of drug allergy 08/29/200906/23 Dyslipidemia, goal LDL below 70 08/23/2009 02/26/2013 ACEI/ARB contraindicated 09/2013 documented as of this encounter (statuses as of 03/23/2024) Immunizations Name Administration Dates Next Due COVID-19 [...] No 03/02/2024 Does the household have a [facility] source of income? (Household - for ages [...] AM EST documented as of this encounter Progress Notes * Malgorzata Kohli, Community Health Morale Officer - 03/23/2024 1:44 PM EST Telemedicine visit: No Community Health Morale Officer (MIRZA) documentation: This CHW placed 3rd and final f/u PC to patient per CM's request Patient reported is getting a little better every day. He is still dealing with BLE swelling and isworking on getting this better. Its mainly his feet. No fever and no SOB and no falls. Patient did not have any concerns or questions at this time. This CHW encouraged patient to reach out to CM withany questions or concerns and confirmed CM's contact info. Malgorzata Kohli- Community Health Worker 1 Support Services/[facility] [email or web address] documented in this encounter Plan of Treatment Upcoming Encounters Date Type Department Care Team (Latest Contact Info) Description 04/06/2024 9:20 AM EST Office Visit Family Practice [address], [place] 293 [facility], [place] [address] Pedro Luis Bowens, 293 [place] [address] 04/17/2024 9:30 AM EST Laboratory Laboratory, [facility] [address] [facility] [place] [address] [facility] 132 [facility] [place] [address] 04/17/2024 10:00 AM EST Imaging Radiology [address] [place] [address] 04/21/2024 8:00 AM EST Hospital Encounter ENDO OSSC, Endoscopy Room [facility] [address] [place] [address] Jose E Bai MD [address] [place] [address] 04/21/2024 8:00 AM EST - 04/21/2024 8:45 AM EST Surgery ENDO OSSC, Endoscopy Room [facility] [address] [place] [address] Jose E Bai MD [address] [place] [address] ENDOSCOPIC RETROGRADE CHOLANGIOPANCREATOGRAPHY (ERCP) DIAGNOSTIC 04/28/2024 9:30 AM EST Office Visit Hematology/Oncol roman Conroy [place] [address] [place] [address] Marimar Del Castillo MD 200 [facility] [place] [address] Scheduled Procedures Name Priority Associated Diagnoses Date/Ti [...] this encounter Medical Devices Implanted Type Area Produce Department Manager Device Identifier Shelf Expiration Date Model / Serial / Lot Stent Bili Duodenal [id number] - [id number] Implanted:Qty: 1 on 01/16/2024 by Jose E Bai MD at ENDOSCOPY [facility] N/A: Stomach [employer] 12/02/2025 PBD-1031-1 007 / / [id number] documented as of this encounter Advance Directives [...] Power of Attor ila? No Care Teams Victim Advocate Relationship Specialty Start Date End Date Pedro Luis Bowens DO [address] [place] [address] PCP - General Internal Medicine 09/09/23 documented as of this encounter
--- OUTSIDE RECORDS SUMMARY | 2024-04-01 18:54 | External Medical Summary | Summary of Care ---
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); Pure hypercholesterolemia; Aortocoronary bypass status; Benign prostatic hyperplasia without lower urinary tract symptoms; HTN, goal below 140/90; Gastroesophageal reflux disease without esophagitis; Moderate aortic stenosis; Pulmonary hypertension, unspecified (HCC); Vitamin B 12 deficiency Allergies Active Allergy Reactions Criticality Noted Date Comments Iodinated Contrast Media Rash 08/29/2009 Pt got a rash after his cath on 08/23/09 Levofloxacin 11/03/2009 Nausea jittery Lisinopril 10/01/2013 Cough Rash documented as of this encounter (statuses as of 03/24/2024) Medications ASPIRIN 81 MG PO CHEW Take 1 Tablet by mouth at bedtime. 100 Tab 3 08/25/19 10 Active Iron-Vitamin C 65-125 MG Tablet Take 1 Tablet by mouth every other day. Active Multiple Vitamin (MULTI-DAY) Tablet Take 1 Tablet by mouth every evening. Active Probiotic Product (PROBIOTIC ACIDOPHILUS BIOBEADS) Capsule Take 1 Cap by mouth daily before breakfast. 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 DX: E11.9 1 Kit 12/29/19 21 Active Vitamin D3 25 MCG (1000 UT) Oral Capsule Take 1 Capsule by mouth every evening. 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 100 Tablet 3 4 10:27 AM EST 11/08/19 24 Active Clopidogrel Bisulfate 75 MG Oral Tablet (pLAVix)Indicati ons:Old myocardial infarction TAKE ONE TABLET BY MOUTH EVERY DAY 100 Tablet 3 4 7:22 AM EST 11/12/19 24 025 Active Cyanocobalamin 1000 MCG/ML Injection Solution (Cyanocobalamin) Indications:Buffy min B12 deficiency INJECT 1ML INTRAMUSCULARLY EVERY 30 DAYS 3 mL 1 11/29/19 24 Active Additional Information Patient taking differently: INJECT 1ML INTRAMUSCULARLY EVERY other 30 DAYS, Reported on 03/05/2024 Fluticasone Propionate 50 MCG/ACT Nasal Suspension (Flonase)Indicat ions:Chronic maxillary sinusitis ADMINISTER ONE SPRAY INTO EACH NOSTRIL DAILY 48 g 3 4 2:12 PM EDT 01/20/20 24 Active Nitroglycerin 0.4 MG Sublingual Tablet Sublingual (Nitrostat) One tablet under tongue if needed for chest pain. May repeat 3 times. If chest pain continues, call [phone] 25 Tablet 3 01/27/20 24 Active Ondansetron HCl 8 MG Oral Tablet (Zofran)Indicati ons: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) Take 1 Tablet by mouth every 8 hours as needed for Nausea. 30 Tablet 3 02/04/20 24 Active Prochlorperazine Maleate 10 MG Oral Tablet (Compazine)Indic ations:Metastasi s from pancreatic cancer (HCC) Take 1 Tablet by mouth every 6 hours as needed for Nausea. 30 Tablet 3 02/04/20 24 Active Lidocaine-Priloc fartun 2.5-2.5 % External Cream (Emla)Indication s: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) APPLY TO SKIN [...] before bedtime. 02/13/20 24 Active Magic Swizzle (Lidocaine-Benad ryl-Maalox) oral solutionIndicati ons:Oral pain Swish and spit 15 mL in the morning and 15 mL at noon and 15 mL before bedtime. 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 30 Capsule 5 03/11/20 24 Active OneTouch Ultra Test In Vitro Strip (Glucose Blood)Indication s:Type 2 diabetes mellitus with hemoglobin A1c goal of less than 7.0% (HCC),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),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) Tests four times daily 400 Strip 3 02/07/20 24 024 Disconti nued(Pat ient preferen ce/disco ntinuati on) Albuterol Sulfate HFA 108 (90 Base) MCG/ACT Inhalation Aerosol Solution Inhale 2 puffs by mouth every 6 hours as needed for shortness of breath. 20.1 g 2 4 10:57 AM EST 10/28/19 24 024 Disconti nued(Pat ient preferen ce/disco ntinuati on) Hospital, Clinic, or Other Facility Administered Medication Ordered Dose Route Frequency Start Date End Date Status Vitamin B-12 (Cyanocobalamin) inj 1,000 mcgIndications:Vitamin B 12 deficiency 1000 mcg IM [id number] 03/23/2024 12/26/2026 Active documented as of this encounter (statuses as of 03/24/2024) Active Problems Problem Noted Date Diagnosed Date Secondary malignant neoplasm of liver and intrahepatic bile duct 02/17/2024 Malignant neoplasm of head of pancreas Metastasis from pancreatic cancer 01/28/2024 Encounter for antineoplastic chemotherapy 2023 Atherosclerosis of lone pine ar teries of extremities with rest pain, bilateral legs 11/08/2023 Pulmonary hypertension, unspecified 07/17/2022 B12 deficiency 03/22/2022 Moderate aortic stenosis 11/28/2021 Occupational exposure to noise 09/27/2020 Coronary artery disease of n ative artery of lone pine heart with stable angina pectoris 09/17/2019 Gastroesophageal [...] as of this encounter (statuses as of 03/24/2024) Resolved Problems Problem Noted Date Diagnosed Date [...] Per HTN Protocol #27. [employer] Other*[id number] 09/23/2009 05/01/2016 Overview (09/23/2009): Study Titile: [employer] Mark[employer] for Patients with Cardiovascular Disease Project #[id number] PI: Yovani Marie MD Please call [phone] with study related questions Dyslipidemia, goal LDL below 70 08/30/2009 02/26/2013 HTN, goal below 130/80 08/30/200911/14 Overview: Per HTN Protocol #27. History of drug allergy 08/29/200906/23 Dyslipidemia, goal LDL below 70 08/23/2009 02/26/2013 ACEI/ARB contraindicated 09/2013 documented as of this encounter (statuses as of 03/24/2024) Immunizations Name Administration Dates Next Due COVID-19 [...] Passive Smoke Exposure: Past Smokeless Tobacco: Former Tobacco Cessation:Counseling Given: Yes Comments:quit in 1984. Alcohol Use Standard Drinks/Week [...] 03/02/2024 Does the household have a re gular [...] Sign Reading Time Taken Comments Blood Pressure 90/48 03/23/2024 8:43 AM EST Pulse 73 03/23/2024 8:43 AM EST Temperature 37 C (98.6 F) 03/23/2024 8:43 AM EST Respiratory Rate 12 03/23/2024 8:43 AM EST Oxygen Saturation 98% 03/23/2024 8:43 AM EST Inhaled Oxygen Concentration - - Weight 67.1 kg (148 lb) 03/23/2024 8:43 AM EST Height 167.6 cm (5' 6") 03/23/2024 8:43 AM EST Body Mass Index 23.89 03/23/2024 8:43 AM EST documented in this encounter Progress Notes * Saroj Bowens, - 03/23/2024 9:25 AM EST SUBJECTIVE: Michael Gutierrez is a 78 year old male. Chief Complaint Patient presents with Follow Up Pt here for 4 month check - Would like to discuss wearing compression socks, needs B12 shot today, would like both ears checked for wax today. HPI: Patient is a 78 year old of male with a history of Pancreatic Cancer, Liver Metastasis, CAD, CABG, multiple coronary artery stents, DM type II, HTN, BPH, Hyperlipidemia, B-12 Deficiency, and GERD that is seen for follow up. Leg swelling improved. Furosemide was increased at last visit. Appetite hasimproved. Weight is down. No chest pain or shortness of breath are present. Fatigue is still present. Chemotherapy is on hold for [address] chest / abdomen / pelvis is scheduled on 04/17/2024 to assess Pancreatic Cancer. Biliary duct stent change scheduled 04/21/2024. 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 100 Tab 3 Iron-Vitamin C 65-125 MG Tablet Take 1 Tablet by mouth every other day. Multiple Vitamin (MULTI-DAY) Tablet Take 1 Tablet by mouth every evening. Probiotic Product (PROBIOTIC ACIDOPHILUS BIOBEADS) Capsule Take 1 Cap by mouth daily before breakfast. [employer] Ultra 2 w/Device Kit Use to test blood glucose 4 times daily. DX: E11.9 1 Kit 0 Vitamin D3 25 MCG (1000 UT) Oral Capsule Take 1 Capsule by mouth every evening. Ranolazine ER 1000 MG Oral Tablet Extended Release 12 Hour TAKE ONE TABLET BY MOUTH TWICE A DAY 200Tablet 3 Isosorbide Mononitrate ER 60 MG Oral Tablet Extended Release 24 Hour (Imdur) TAKE ONE TABLET BY MOUTH TWICE A DAY (Patient taking differently: Taking 2 tablets in the morning) 200 Tablet 2 Tamsulosin HCl 0.4 MG Oral Capsule (Flomax) TAKE ONE CAPSULE BY MOUTH TWICE A DAY 200 Capsule 2 Pantoprazole Sodium 20 MG Oral Tablet Delayed Release (Protonix) Take 1 Tablet by mouth in the morning. 100 Tablet 3 Clopidogrel Bisulfate 75 MG Oral Tablet (pLAVix) TAKE ONE TABLET BY MOUTH EVERY DAY 100 Tablet 3 Fluticasone Propionate 50 MCG/ACT Nasal Suspension (Flonase) ADMINISTER ONE SPRAY INTO EACH NOSTRILDAILY 48 g 3 Nitroglycerin 0.4 MG Sublingual Tablet Sublingual (Nitrostat) One tablet under tongue if needed forchest pain. May repeat 3 times. If chest pain continues, call 911 25 Tablet 3 Ondansetron HCl 8 MG Oral Tablet (Zofran) Take 1 Tablet by mouth every 8 hours as needed for Nausea. 30 Tablet 3 Prochlorperazine Maleate 10 MG Oral Tablet (Compazine) Take 1 Tablet by mouth every 6 hours as needed for Nausea. 30 Tablet 3 Lidocaine-Prilocaine 2.5-2.5 % External Cream (Emla) APPLY TO SKIN OVER MEDIPORT & COVER 1HR PRIOR TO ACCESSING. 30 g 1 [employer] Ultra Test In Vitro Strip (Glucose Blood) Tests four times daily 400 Strip 3 Acetaminophen 500 MG Oral Tablet (Tylenol) Take 2 Tablets by mouth every 6 hours as needed for Pain, Breakthrough (up to 3000 mg daily (6 tablets)). Magnesium Oxide 400 MG Oral Tablet Take 1 Tablet by mouth in the morning and 1 Tablet before bedtime. Albuterol Sulfate HFA 108 (90 Base) MCG/ACT Inhalation Aerosol Solution Inhale 2 puffs by mouth every 6 hours as needed for shortness of breath. 20.1 g 2 Magic Swizzle (Xfoayibul-Oynjvpsv-Enootv) oral solution Swish and spit 15 mL in the morning and 15 mL at noon and 15 mL before bedtime. 300 mL 0 glipiZIDE ER 2.5 MG Oral Tablet Extended Release 24 Hour (glipiZIDE XL) Take 1 Tablet by mouth in the morning. Before breakfast. 90 Tablet 2 Atenolol 50 MG Oral Tablet (Tenormin) Take 1 Tablet by mouth in the morning. 100 Tablet 3 Loperamide HCl 2 MG Oral Tablet (Imodium A-D) Take 1 Tablet by mouth 3 times a day as needed for Diarrhea. Then one tablet after each loose BM, no more than 3 tablets per day metFORMIN HCl ER 500 MG Oral Tablet Extended Release 24 Hour (Glucophage XR) Take 2 Tablets by mouth 2 times a day with morning and evening meals. 360 Tablet 3 Ranolazine ER 500 MG Oral Tablet Extended Release 12 Hour Take 1 Tablet by mouth in the morning and1 Tablet before bedtime. 14 Tablet 0 Fluconazole 40 MG/ML Oral Suspension Reconstituted (Diflucan) Take 5 mL by mouth in the morning. predniSONE 50 MG Oral Tablet (Deltasone) Take 1 tablet 13 hours, 7 hours, and [address] appt 3 Tablet 0 diphenhydrAMINE HCl 50 MG Oral Capsule (Benadryl) Take 1 capsule [address] appt 1 Capsule 0 Furosemide 40 MG Oral Tablet (Lasix) One tablet daily 30 Tablet 6 Potassium Chloride ER 10 MEQ Oral Capsule Extended Release Take 1 Capsule by mouth in the morning. 30 Capsule 5 Cyanocobalamin 1000 MCG/ML Injection Solution (Cyanocobalamin) INJECT 1ML INTRAMUSCULARLY EVERY 30 DAYS (Patient taking differently: INJECT 1ML INTRAMUSCULARLY EVERY other 30 DAYS) 3 mL 1 Lidocaine Viscous HCl 2 % Mouth/Throat Solution Swish and spit 15 mL as needed for Pain, Mild (mouth discomfort). (Patient not taking: Reported on 03/23/2024) 200 mL 3 No current facility-administered medications for this visit. The patient's medication list was reviewed and updated as needed. 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) 02/17/2024 Moderate aortic stenosis 11/28/2021 Stable angina (HCC) 08/24/2009 Past Surgical History: Procedure Laterality Date CABG, ARTERIAL, TWO 03/25/1999 CATHETERIZE LEFT HEART THRU SKIN 09/23/2009 LEFT HEART CATH, PERCUTANEOUS performed by YOVANI MARIE at [facility] [place]OS[place], DIAGNOSTIC (RECTUM) 10/12/2019 normal / COLONOSCOPY FLEXIBLE PROXIMAL DIAGNOSTIC performed by Michael Armenta MD at [facility]COPY [facility] CORONARY ARTERY DILATION, BALLOON 08/29/2009 PTCA, SINGLE VESSEL performed by YOVANI MARIE at [facility] [place]GD, FLEXIBLE, DIAGNOSTIC 10/12/2019 normal / ESOPHAGOGASTRODUODENOSCOPY (EGD), FLEXIBLE, TRANSORAL, DIAGNOSTIC performed by Michael Armenta MD at [facility]COPY [facility] EGD, W/ENDOSCOPIC US N/A 01/16/2024 ESOPHAGOGASTRODUODENOSCOPY (EGD), FLEXIBLE, TRANSORAL, ENDOSCOPIC ULTRASOUND performed by Jose E Bai MD at ENDOSCOPY [facility] ERCP, DIAGNOSTIC, SPECIMEN COLLECTION N/A 01/16/2024 ENDOSCOPIC RETROGRADE CHOLANGIOPANCREATOGRAPHY (ERCP) DIAGNOSTIC performed by Jose E Bai MD at [facility]OSCOPY [facility] REMOVE CATARACT, INSERT LENS PROSTH Bilateral Review of patient's allergies indicates: Allergen Reactions Iodinated Contrast Media Rash Pt got a rash after his cath on 08/23/09 Levofloxacin Nausea jittery Lisinopril Cough Rash Review of Systems Constitutional: Positive for fatigue and unexpected weight change. Negative for appetite change. HENT: Negative for congestion, sore throat and trouble swallowing. Respiratory: Negative for cough, shortness of breath and wheezing. Cardiovascular: Positive for leg swelling. Negative for chest pain and palpitations. Gastrointestinal: Negative for abdominal pain, blood in stool, constipation, diarrhea, nausea and vomiting. Genitourinary: Negative for dysuria, frequency and hematuria. Musculoskeletal: Positive for gait problem (ambulates with a walker). Negative for back pain. Neurological: Positive for weakness. Negative for dizziness, syncope and headaches. Psychiatric/Behavioral: Negative for confusion, decreased concentration and sleep disturbance. OBJECTIVE: BP 90/48 (BP Site: Left Arm, BP Position: Sitting, BP Cuff Size: Regular) | Pulse 73 | Temp 98.6 F (37 C) | Resp 12 | Ht 5' 6" (1.676 m) | Wt 148 lb (67.1 kg) | SpO2 98% | BMI 23.89 kg/m | BSA 1.77 m Physical Exam Vitals and nursing note reviewed. Constitutional: Appearance: Normal appearance. HENT: Head: Normocephalic and atraumatic. Cardiovascular: Rate and Rhythm: Normal rate and regular rhythm. Heart sounds: Murmur heard. Systolic murmur is present with a grade of 3/6. No gallop. Pulmonary: Effort: Pulmonary effort is normal. Breath sounds: Normal breath sounds. No wheezing, rhonchi or rales. Abdominal: General: Bowel sounds are normal. There is no distension. Palpations: Abdomen is soft. Tenderness: There is no abdominal tenderness. Musculoskeletal: Right lower leg: Edema present. Left lower leg: Edema present. Neurological: Mental Status: He is alert and oriented to person, place, and time. Mental status is at baseline. Gait: Gait abnormal. Psychiatric: Mood and Affect: Mood normal. Behavior: Behavior normal. Thought Content: Thought content normal. Results for orders placed or performed in visit on 03/20/24 COMPREHENSIVE METABOLIC PANEL Result Value Ref Range BUN 13 6 - 20 mg/dL CREATININE 0.6 0.6 - 1.2 mg/dL EGFR >90 >=60 mL/min SODIUM 134 (L) 135 - 146 mmol/L POTASSIUM 4.4 3.5 - 5.1 mmol/L CHLORIDE 99 98 - 107 mmol/L CO2 25 22 - 32 mmol/L ANION GAP 10 7 - 15 mmol/L GLUCOSE 114 70 - 120 mg/dL Albumin 2.7 (L) 3.8 - 5.0 g/dL AST 108 (H) 10 - 50 U/L Alkaline Phosphatase 747 (H) 35 - 130 U/L Bilirubin, Total 0.9 <=1.2 mg/dL CALCIUM 8.4 8.4 - 10.2 mg/dL Protein 5.2 (L) 6.0 - 8.3 g/dL ALT 73 (H) 10 - 50 U/L CBC Result Value Ref Range WBC 3.74 (L) 4.00 - 10.80 K/uL RBC 3.11 4.50 - 5.25 M/uL HGB 8.8 (L) 14.0 - 16.8 g/dL HCT 27.3 (L) 40.0 - 48.4 % MCV 87.8 82.0 - 99.5 fL MCH 28.3 27.0 - 34.0 pg MCHC 32.2 32.0 - 36.0 g/dL RDW 17.9 11.5 - 15.5 % PLT 289 140 - 400 K/uL MPV 9.0 6.6 - 11.1 fL DIFFERENTIAL, AUTOMATED Result Value Ref Range WBC 3.74 (L) 4.00 - 10.80 K/uL Neutrophils % 42.6 40.0 - 75.0 % Lymphocytes % 25.1 18.0 - 42.0 % Monocytes % 18.7 (H) 1.0 - 11.0 % Eosinophils % 13.1 (H) 0.0 - 6.0 % Basophils % 0.5 0.0 - 2.0 % Absolute Neutrophils 1.59 (L) 1.80 - 7.70 K/uL Absolute Lymphocytes 0.94 (L) 1.00 - 4.80 K/ul Absolute Monocytes 0.70 0.00 - 1.10 K/uL Absolute Eosinophils 0.49 0.00 - 0.70 K/uL Absolute Basophils 0.02 0.00 - 0.20 K/uL *Note: Due to a large number of results and/or encounters for the requested time period, some results have not been displayed. A complete set of results can be found in Results Review. 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 Del Castillo Weight continues to decrease Weakness is unchanged. 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 Follow for symptoms Gastroesophageal reflux disease without esophagitis Continue Pantoprazole Moderate aortic stenosis Pulmonary hypertension, unspecified (HCC) Vitamin B 12 deficiency - Vitamin B-12 (Cyanocobalamin) inj 1,000 mcg Follow Up: Return in about 2 weeks (around 04/06/2024), or if symptoms worsen or fail to improve. Saroj Bowens DO 9:25 AM 03/23/2024 documented in this encounter Nursing Notes * Ora Adams CCMA - 03/23/2024 8:43 AM EST Chief Complaint Patient presents with Follow Up Pt here for 4 month check - Would like to discuss wearing compression socks, needs B12 shot today, would like both ears checked for wax today. documented in this encounter Miscellaneous Notes * Addendum Note - Saroj Bowens DO - 03/24/2024 10:36 AM ESTAddended by: SAROJ BOWENS on: 03/24/2024 10:36 AM Modules accepted: Orders * Addendum Note - Consuelo Ornelas LPN - 03/24/2024 10:34 AM ESTAddended by: CONSUELO ORNELAS on: 03/24/2024 10:34 AM Modules accepted: Orders documented in this encounter Plan of Treatment Upcoming Encounters Date Type Department Care Team (Latest Contact Info) Description 04/06/2024 9:20 AM EST Office Visit Family Practice [address] [place] [address] [place] [address] Saroj Bowens DO [address] [place] [address] 04/17/2024 9:30 AM EST Laboratory Laboratory, [facility] [address] [facility] [place] [id number] [facility] [address] [facility] [place] [address] 04/17/2024 10:00 AM EST Imaging Radiology [facility] [address] [facility] [address] [facility] [place] [address] 04/21/2024 8:00 AM EST Hospital Encounter END[facility], Endoscopy Room [facility] [address] [id number] Jose E Bai MD [address] [place] [address] 04/21/2024 8:00 AM EST - 04/21/2024 8:45 AM EST Surgery ENDO [facility], Endoscopy Room [facility] [address] [place] [phone] Jose E Bai MD [address] [place] [address] ENDOSCOPIC RETROGRADE CHOLANGIOPANCREATOGRAPHY (ERCP) DIAGNOSTIC 04/28/2024 9:30 AM EST Office Visit Hematology/Oncol [facility] [employer] [address] [place] [address] Marimar Del Castillo MD [address] [place] [address] Scheduled Procedures Name Priority Associated Diagnoses Date/Ti mi ENDOSCOPIC RETROGRADE CHOLANGIOPANCREATOGRAPHY (ERCP) DIAGNOSTIC Pancreatic mass [...] this encounter Medical Devices Implanted Type Area Diamond Driller Device Identifier Shelf Expiration Date Model / Serial / Lot Stent Bili Duodenal [id number] - [id number] Implanted:Qty: 1 on 01/16/2024 by Jose E Bai MD at ENDOSCOPY [facility] N/A: [employer] 12/02/2025 [id number] / [id number] documented as of this encounter Visit Diagnoses Diagnosis 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)- Primary Malignant neoplasm of head 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) Bilateral leg edema Edema Loss of weight Malaise and fatigue Other malaise and fatigue Type 2 diabetes mellitus with hemoglobin A1c goal of less than 8.0% (HCC) 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 No Care Teams New Car Salesperson Relationship Specialty Start Date End Date Saroj Bowens DO [address] [place] [address] PCP - General Internal Medicine 09/09/23 documented as of this encounter
--- OUTSIDE RECORDS SUMMARY | 2024-04-01 18:54 | External Medical Summary | Summary of Care ---
Author Name Unknown Organization [facility] Address [address] [place] [address] Phone [phone] Care Team Providers Care Finishing Machine Operator Name Role Phone Pedro Luis Bowens DO Primary Care Provider [phone] Reason for Visit * Reason Comments Follow Up Pt here for 4 month check - Would like to discuss wearing compression socks, needs B12 shot today, would like both ears checked for wax today. 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 DX: E11.9 1 Kit 12/29/19 21 Active Vitamin D3 25 MCG (1000 UT) Oral Capsule Take 1 Capsule by mouth every evening. Active Ranolazine ER 1000 MG Oral Tablet Extended Release 12 HourIndications: Coronary artery disease of orutsararmiut artery of orutsararmiut heart with stable angina pectoris ([facility]) TAKE ONE TABLET BY MOUTH TWICE [...] mcgIndications:Vitamin B 12 deficiency 1000 mcg IM [id number] 03/23/2024 12/26/2026 Active documented as of this encounter (statuses as of 03/24/2024) Active Problems Problem Noted Date Diagnosed Date Secondary malignant neoplasm of liver and intrahepatic bile duct 02/17/2024 Malignant neoplasm of head of pancreas Metastasis from pancreatic cancer 01/28/2024 Encounter for antineoplastic chemotherapy 2023 Atherosclerosis of orutsararmiut ar teries of extremities with rest pain, bilateral legs 11/08/2023 Pulmonary hypertension, unspecified 07/17/2022 B12 deficiency 03/22/2022 Moderate aortic stenosis 11/28/2021 Occupational exposure to noise 09/27/2020 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 Wable Systems Ultra 2 w/Device Kit Use to test [...] 1HR PRIOR TO ACCESSING. 30 g 1 XinrongToGraphene Frontiers Ultra Test In Vitro Strip (Glucose Blood) [...] of breath. 20.1 g 2 Magic Swizzle (Rcjrdthwa-Ugvqdvnv-Yhgmsq) oral solution Swish and spit 15 mL [...] performed by YOVANI MARIE at [facility] [place] COLONOSCOPY, DIAGNOSTIC (RECTUM) 10/12/2019 normal / COLONOSCOPY FLEXIBLE PROXIMAL DIAGNOSTIC performed by Michael Armenta MD at ENDOSCOPY [facility] CORONARY ARTERY DILATION, BALLOON 08/29/2009 PTCA, SINGLE VESSEL performed by YOVANI MARIE at [facility] [place] EGD, FLEXIBLE, DIAGNOSTIC 10/12/2019 normal / ESOPHAGOGASTRODUODENOSCOPY (EGD), FLEXIBLE, TRANSORAL, DIAGNOSTIC performed by Michael Armenta MD at ENDOSCOPY [facility] EGD, W/ENDOSCOPIC US N/A 01/16/2024 ESOPHAGOGASTRODUODENOSCOPY (EGD), FLEXIBLE, TRANSORAL, ENDOSCOPIC ULTRASOUND performed by Jose E Bai MD at ENDOSCOPY [facility] ERCP, DIAGNOSTIC, SPECIMEN COLLECTION N/A 01/16/2024 ENDOSCOPIC RETROGRADE CHOLANGIOPANCREATOGRAPHY (ERCP) DIAGNOSTIC performed by Jose E Bai MD at ENDOSCOPY [facility] REMOVE CATARACT, INSERT LENS PROSTH Bilateral Review [...] Metformin and Glipizide 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 Pedro Luis Bowens DO 9:25 AM 03/23/2024 documented in this encounter Nursing Notes * Ora Adams CCMA - 03/23/2024 8:43 AM EST Chief Complaint Patient presents with Follow Up Pt here for 4 month check - Would like to discuss wearing compression socks, needs B12 shot today, would like both ears checked for wax today. documented in this encounter Miscellaneous Notes * Addendum Note - Consuelo Ornelas LPN - 03/24/2024 10:34 AM ESTAddended by: CONSUELO ORNELAS on: 03/24/2024 10:34 AM Modules accepted: Orders documented in this encounter Plan of Treatment Upcoming Encounters Date Type Department Care Team (Latest Contact Info) Description 04/06/2024 9:20 AM EST Office Visit Family Practice [address], [place] [address] [place] [address] Pedro Luis Bowens, 293 [place] [address] 04/17/2024 9:30 AM EST Laboratory Laboratory, [facility] 132 [facility] [place] [phone] [facility] 132 [facility] [place] [address] 04/17/2024 10:00 AM EST Imaging Radiology [address] [place] [address] 04/21/2024 8:00 AM EST Hospital Encounter ENDO [facility], Endoscopy Room [facility] [address] [place] [address] Jose E Bai MD [address] [place] [address] 04/21/2024 8:00 AM EST - 04/21/2024 8:45 AM EST Surgery ENDO [facility], Endoscopy Room [facility] [address] [place] [address] Jose E Bai MD [address] [place] [address] ENDOSCOPIC RETROGRADE CHOLANGIOPANCREATOGRAPHY (ERCP) DIAGNOSTIC 04/28/2024 9:30 AM EST Office [facility] [employer] [facility] [address] [place] [address] Marimar Del Castillo MD 200 [facility] [place] [address] Scheduled Procedures Name Priority Associated Diagnoses Date/Ti [...] this encounter Medical Devices Implanted Type Area Pocket Operator Device Identifier Shelf Expiration Date Model / Serial / Lot Stent Bili Duodenal [id number] - [id number] Implanted:Qty: 1 on 01/16/2024 by Jose E Bai MD at ENDOSCOPY [facility] N/A: Stomach [employer] 12/02/2025 [id number]-[id number] [id number] / / [id number] documented as of this encounter Visit Diagnoses Diagnosis 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)- Primary Malignant neoplasm of head 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 No Care Teams Finishing Machine Operator Relationship Specialty Start Date End Date Pedro Luis Bowens DO [address] [place] [address] PCP - General Internal Medicine 09/09/23 documented as of this encounter
--- OUTSIDE RECORDS SUMMARY | 2024-04-01 18:54 | External Medical Summary | Summary of Care ---
Author Name Unknown Organization [facility] Address [address] [place] [address] Phone [phone] Care Team Providers Care Wireless Cellular Technician Name Role Phone Saroj Bowens DO Primary Care Provider [phone] Reason for Visit * Reason Comments Follow Up Pt here for 4 month check - Would like to discuss wearing compression socks, needs B12 shot today, would like both ears checked for wax today. 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 DX: E11.9 1 Kit 12/29/19 21 Active Vitamin D3 25 MCG (1000 UT) Oral Capsule Take 1 Capsule by mouth every evening. 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 ([facility]) TAKE ONE TABLET BY MOUTH [...] mcgIndications:Vitamin B 12 deficiency 1000 mcg IM [id number] 03/23/2024 12/26/2026 Active documented as of this encounter (statuses as of 03/24/2024) Active Problems Problem Noted Date Diagnosed Date Secondary malignant neoplasm of liver and intrahepatic bile duct 02/17/2024 Malignant neoplasm of head of pancreas Metastasis from pancreatic cancer 01/28/2024 Encounter for antineoplastic chemotherapy 2023 Atherosclerosis of huslia ar teries of extremities with rest pain, bilateral legs 11/08/2023 Pulmonary hypertension, unspecified 07/17/2022 B12 deficiency 03/22/2022 Moderate aortic stenosis 11/28/2021 Occupational exposure to noise 09/27/2020 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 SnoopWall Ultra 2 w/Device Kit Use to test [...] 1HR PRIOR TO ACCESSING. 30 g 1 Prolifiq SoftwareToOLSET Ultra Test In Vitro Strip (Glucose Blood) [...] of breath. 20.1 g 2 Magic Swizzle (Fmhlyejni-Twuaxjqh-Heafwf) oral solution Swish and spit 15 mL [...] performed by YOVANI MARIE [place] [facility] [place], DIAGNOSTIC (RECTUM) 10/12/2019 normal / COLONOSCOPY FLEXIBLE PROXIMAL DIAGNOSTIC performed by Michael Armenta MD at ENDOSCOPY [facility] CORONARY ARTERY DILATION, BALLOON 08/29/2009 PTCA, SINGLE VESSEL performed by YOVANI MARIE [place] [facility] [place]GD, FLEXIBLE, DIAGNOSTIC 10/12/2019 normal / ESOPHAGOGASTRODUODENOSCOPY (EGD), FLEXIBLE, TRANSORAL, DIAGNOSTIC performed by Michael Armenta MD at ENDOSCOPY [facility] EGD, W/ENDOSCOPIC US N/A 01/16/2024 ESOPHAGOGASTRODUODENOSCOPY (EGD), FLEXIBLE, TRANSORAL, ENDOSCOPIC ULTRASOUND performed by Jose E Bai MD at ENDOSCOPY [facility] ERCP, DIAGNOSTIC, SPECIMEN COLLECTION N/A 01/16/2024 ENDOSCOPIC RETROGRADE CHOLANGIOPANCREATOGRAPHY (ERCP) DIAGNOSTIC performed by Jose E Bai MD at ENDOSCOPY [facility] REMOVE CATARACT, INSERT LENS PROSTH Bilateral [...] Metformin and Glipizide 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 [place] [phone] [facility] 132 [facility] [place] [address] 04/17/2024 10:00 AM EST Imaging Radiology [facility]st [facility] 132 [facility] [place] [address] 04/21/2024 8:00 AM EST Hospital Encounter ENDO [facility], Endoscopy Room [facility] [address] [phone] Jose E Bai MD [address] [place] [address] 04/21/2024 8:00 AM EST - 04/21/2024 8:45 AM EST Surgery ENDO [facility], Endoscopy Room [facility] [address] [place] [address] Jose E Bai MD [address] [place] [address] ENDOSCOPIC RETROGRADE CHOLANGIOPANCREATOGRAPHY (ERCP) DIAGNOSTIC 04/28/2024 9:30 AM EST Office Visit Hematology/Oncol ogy [employer] [address] [place] [address] Marimar Del Castillo MD [address] [place] [address] Scheduled Procedures Name Priority Associated Diagnoses Date/Ti ar ENDOSCOPIC RETROGRADE CHOLANGIOPANCREATOGRAPHY (ERCP) DIAGNOSTIC Pancreatic mass [...] this encounter Medical Devices Implanted Type Area Oem Sales Manager Device Identifier Shelf Expiration Date Model / Serial / Lot Stent Bili Duodenal [id number] - [id number] Implanted:Qty: 1 on 01/16/2024 by Jose E Bai MD at ENDOSCOPY [facility] N/A: St[employer]ach [employer] 12/02/2025 D-1031-1 007 / / [id number] documented as of this encounter Visit Diagnoses Diagnosis 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)- Primary Malignant neoplasm of head 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 No Care Teams Wireless Cellular Technician Relationship Specialty Start Date End Date Saroj Bowens DO [address] [place] [address] PCP - General Internal Medicine 09/09/23 documented as of this encounter
--- OUTSIDE RECORDS SUMMARY | 2024-04-01 18:54 | External Medical Summary | Summary of Care ---
Author Name Unknown Organization [facility] Address [address] [place] [address] Phone [phone] Care Team Providers Care Poacher Wringer Operator Name Role Phone Saroj Bowens DO Primary Care Provider Reason for Visit * Reason Comments Follow Up Pt here for 4 month check - Would like to discuss wearing compression socks, needs B12 shot today, would like both ears checked for wax today. Encounter Details Date Type Department Care Team (Late st Contact Info) Description 03/23/2024 8:40 AM EST Office Visit Family Practice 65 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 DX: E11.9 1 Kit 12/29/19 21 Active Vitamin D3 25 MCG (1000 UT) Oral Capsule Take 1 Capsule by mouth every evening. Active Ranolazine ER 1000 MG Oral Tablet Extended Release 12 HourIndications: Coronary artery disease of mechoopda artery of mechoopda heart with stable angina pectoris ([facility]) TAKE ONE TABLET BY MOUTH [...] mcgIndications:Vitamin B 12 deficiency 1000 mcg IM [id number] 03/23/2024 12/26/2026 Active documented as of this encounter (statuses as of 03/24/2024) Active Problems Problem Noted Date Diagnosed Date Secondary malignant neoplasm of liver and intrahepatic bile duct 02/17/2024 Malignant neoplasm of head of pancreas Metastasis from pancreatic cancer 01/28/2024 Encounter for antineoplastic chemotherapy 2023 Atherosclerosis of mecho[place] ar teries of extremities with rest pain, bilateral legs 11/08/2023 Pulmonary hypertension, unspecified 07/17/2022 B12 deficiency 03/22/2022 Moderate aortic stenosis 11/28/2021 Occupational exposure to noise 09/27/2020 Coronary artery disease of n ative artery of mechoopda heart with stable angina pectoris 09/17/2019 Gastroesophageal [...] Per HTN Protocol #27. [employer] Card[employer] Other*[id number] 09/23/2009 05/01/2016 Overview (09/23/2009): Study Titile: Genomic Markers for Patients with Cardiovascular Disease Project #[id number] PI: Yovani Marie MD Please call [phone] with study related questions Dyslipidemia, goal LDL [...] goal below 140/90 Coronary artery disease of mechoopda artery of mechoopda heart with stable angina pectoris (HCC) Gastroesophageal reflux disease without esophagitis Occupational exposure to noise Moderate aortic stenosis B12 deficiency Pulmonary hypertension, unspecified (HCC) Atherosclerosis of mechoopda arteries of extremities with rest pain, bilateral [...] 1 Cap by mouth daily before breakfast. [employer] Ultra 2 w/Device Kit Use to test [...] 1HR PRIOR TO ACCESSING. 30 g 1 YesPlz!ToGrain Management Ultra Test In Vitro Strip (Glucose Blood) [...] of breath. 20.1 g 2 Magic Swizzle (Kebrzexbb-Tvpyybnu-Ixihjj) oral solution Swish and spit 15 mL [...] performed by YOVANI MARIE [place] [facility] [place]NOST[place] (RECTUM) 10/12/2019 normal / COLONOSCOPY FLEXIBLE PROXIMAL DIAGNOSTIC performed by Michael Armenta MD at ENDOSCOPY [facility] CORONARY ARTERY DILATION, BALLOON 08/29/2009 PTCA, SINGLE VESSEL performed by YOVANI MARIE [place] [facility], FLEXIBLE, DIAGNOSTIC 10/12/2019 normal / ESOPHAGOGASTRODUODENOSCOPY (EGD), FLEXIBLE, TRANSORAL, DIAGNOSTIC performed by Michael Armenta MD at ENDOSCOPY [facility] EGD, W/ENDOSCOPIC US N/A 01/16/2024 ESOPHAGOGASTRODUODENOSCOPY (EGD), FLEXIBLE, TRANSORAL, ENDOSCOPIC ULTRASOUND performed by Jose E Bai MD at ENDOSCOPY [facility] ERCP, DIAGNOSTIC, SPECIMEN COLLECTION N/A 01/16/2024 ENDOSCOPIC RETROGRADE CHOLANGIOPANCREATOGRAPHY (ERCP) DIAGNOSTIC performed by Jose E Bai MD at ENDOSCOPY [facility] REMOVE CATARACT, INSERT LENS PROSTH Bilateral Review [...] Metformin and Glipizide Coronary artery disease of mechoopda artery of mechoopda heart with stable angina pectoris (HCC) Continue [...] EST Office Visit Family Practice 65 [facility] 293 [place] [address] Saroj Bowens DO 293 [place] [address] 04/17/2024 9:30 AM EST Laboratory Laboratory, [facility] [address] [place] [address] [facility] 132 [facility] [place] [address] 04/17/2024 10:00 AM EST Imaging Radiology [facility]st [facility] [address] [place] [address] 04/21/2024 8:00 AM EST Hospital Encounter ENDO [facility], Endoscopy Room [facility] [address] [place] [address] Jose E Bai MD [address] [place] [address] 04/21/2024 8:00 AM EST - 04/21/2024 8:45 AM EST Surgery ENDO [facility], Endoscopy Room [facility] [address] [place] [address] Jose E Bai MD [address] [place] [address] ENDOSCOPIC RETROGRADE CHOLANGIOPANCREATOGRAPHY (ERCP) DIAGNOSTIC 04/28/2024 9:30 AM EST Office Visit [facility] [address] [place] [phone] Marimar Del Castillo MD [address] [place] [address] Scheduled Procedures Name Priority Associated Diagnoses Date/Ti [...] this encounter Medical Devices Implanted Type Area Sales Development Consultant Device Identifier Shelf Expiration Date Model / Serial / Lot Stent Bili Duodenal [id number] - [id number] Implanted:Qty: 1 on 01/16/2024 by Jose E Bai MD at ENDOSCOPY [facility] N/A: Stomach [employer] 12/02/2025 [id number]-1031-1 007 / / [id number] documented as of this encounter Visit Diagnoses Diagnosis 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)- Primary Malignant neoplasm of head 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 No Care Teams Poacher Wringer Operator Relationship Specialty Start Date End Date Saroj Bowens DO [address] [place] [address] PCP - General Internal Medicine 09/09/23 documented as of this encounter
--- OUTSIDE RECORDS SUMMARY | 2024-04-01 18:54 | External Medical Summary | Summary of Care ---
Author Name Unknown Organization [facility] Address [address] [place] [address] Phone [phone] Care Team Providers Care Concrete Batch Plant Operator Name Role Phone Saroj Bowens DO Primary Care Provider [phone] Reason for Visit * Reason Comments Follow Up Pt here for 4 month check - Would like to discuss wearing compression socks, needs B12 shot today, would like both ears checked for wax today. 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 DX: E11.9 1 Kit 12/29/19 21 Active Vitamin D3 25 MCG (1000 UT) Oral Capsule Take 1 Capsule by mouth every evening. 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 ([facility]) TAKE ONE TABLET BY MOUTH [...] mcgIndications:Vitamin B 12 deficiency 1000 mcg IM [id number] 03/23/2024 12/26/2026 Active documented as of this encounter (statuses as of 03/24/2024) Active Problems Problem Noted Date Diagnosed Date Secondary malignant neoplasm of liver and intrahepatic bile duct 02/17/2024 Malignant neoplasm of head of pancreas Metastasis from pancreatic cancer 01/28/2024 Encounter for antineoplastic chemotherapy 2023 Atherosclerosis of kiowa tribe ar teries of extremities with rest pain, bilateral legs 11/08/2023 Pulmonary hypertension, unspecified 07/17/2022 B12 deficiency 03/22/2022 Moderate aortic stenosis 11/28/2021 Occupational exposure to noise 09/27/2020 Coronary artery disease of n ative artery of kiowa tribe heart with stable angina pectoris 09/17/2019 Gastroesophageal [...] Per HTN Protocol #27. [employer] Other*[id number] 09/23/2009 05/01/2016 Overview (09/23/2009): Study Titile: Genomic Markers for Patients with Cardiovascular Disease Project #[id number] PI: Yovani Marie MD Please call [phone] with study related questions Dyslipidemia, goal LDL [...] documented in this encounter Progress Notes * Consuelo Ornelas LPN - 03/24/2024 1:36 PM EST DME ordered thru [facility]. 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 Vision Critical Ultra 2 w/Device Kit Use to test [...] 1HR PRIOR TO ACCESSING. 30 g 1 Vision Critical Ultra Test In Vitro Strip (Glucose Blood) [...] of breath. 20.1 g 2 Magic Swizzle (Zkaictmlf-Orjiwwnp-Xsyxbm) oral solution Swish and spit 15 mL [...] performed by YOVANI MARIE at [facility] COLONOSCOPY, DIAGNOSTIC (RECTUM) 10/12/2019 normal / COLONOSCOPY FLEXIBLE PROXIMAL DIAGNOSTIC performed by Michael Armenta MD at ENDOSCOPY [facility] CORONARY ARTERY DILATION, BALLOON 08/29/2009 PTCA, SINGLE VESSEL performed by YOVANI MARIE at [facility] EGD, FLEXIBLE, DIAGNOSTIC 10/12/2019 normal / ESOPHAGOGASTRODUODENOSCOPY (EGD), FLEXIBLE, TRANSORAL, DIAGNOSTIC performed by Michael Armenta MD at ENDOSCOPY [facility] EGD, W/ENDOSCOPIC US N/A 01/16/2024 ESOPHAGOGASTRODUODENOSCOPY (EGD), FLEXIBLE, TRANSORAL, ENDOSCOPIC ULTRASOUND performed by Jose E Bai MD at ENDOSCOPY [facility] ERCP, DIAGNOSTIC, SPECIMEN COLLECTION N/A 01/16/2024 ENDOSCOPIC RETROGRADE CHOLANGIOPANCREATOGRAPHY (ERCP) DIAGNOSTIC performed by Jose E Bai MD at ENDOSCOPY [facility] REMOVE CATARACT, INSERT LENS PROSTH Bilateral [...] Metformin and Glipizide 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) Continue [...] EST Office Visit Family Practice [address], [place] 293 [place] [address] Saroj Bowens DO 293 [place] [address] 04/17/2024 9:30 AM EST [facility] [phone] [facility] 132 [facility] [place] [address] 04/17/2024 10:00 AM EST Imaging Radiology [facility] 1st [facility] 132 [facility] [place] [address] 04/21/2024 8:00 AM EST Hospital Encounter ENDO [facility], Endoscopy Room [facility] [address] [place] [address] Jose E Bai MD [address] [place] [address] 04/21/2024 8:00 AM EST - 04/21/2024 8:45 AM EST Surgery ENDO [facility], Endoscopy Room [facility] [address] [place] [phone] Jose E Bai MD [address] [place] [address] ENDOSCOPIC RETROGRADE CHOLANGIOPANCREATOGRAPHY (ERCP) DIAGNOSTIC 04/28/2024 9:30 AM EST Office Visit Hematology/Oncol roman [place] [address] [place] [address] Marimar Del Castillo MD [address] [place] [address] Scheduled Procedures Name Priority Associated Diagnoses Date/Ti nd ENDOSCOPIC RETROGRADE CHOLANGIOPANCREATOGRAPHY (ERCP) DIAGNOSTIC Pancreatic mass Liver mass 04/21/2024 8:00 AM EST ENDOSCOPIC RETROGRADE CHOLANGIOPANCREATOGRAPHY (ERCP) W/STENT REMOVAL AND EXCHANGE; INC DILATION, GUIDE WIRE AND SPHINCTEROTOMY Pancreatic mass Liver mass 04/21/2024 8:00 AM EST Health Maintenance Due Date Last Done Comments Adult Wellness Visit 12/15/2021 12/15/2020 Albumin/Creatinine Ratio 07/11/202407/11/2 024, 07/17/2022, 07/05/2021, Additional history exists Diabetic [...] this encounter Medical Devices Implanted Type Area Shirt Ironer Device Identifier Shelf Expiration Date Model / Serial / Lot Stent Bili Duodenal [id number] - [id number] Implanted:Qty: 1 on 01/16/2024 by Jose E Bai MD at ENDOSCOPY [facility] N/A: Stomach [employer] 12/02/2025 D-1031-1 007 / / [id number] documented as of this encounter Visit Diagnoses Diagnosis 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)- Primary Malignant neoplasm of head 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) Bilateral leg edema Edema Loss of weight Malaise and fatigue Other malaise and fatigue Type 2 diabetes mellitus with hemoglobin A1c goal of less than 8.0% (HCC) 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 No Care Teams Concrete Batch Plant Operator Relationship Specialty Start Date End Date Saroj Bowens DO [address] [place] [address] PCP - General Internal Medicine 09/09/23 documented as of this encounter
--- OUTSIDE RECORDS SUMMARY | 2024-04-01 18:54 | External Medical Summary | Summary of Care ---
Author Name Unknown Organization [facility] Address [address] [place] [address] Phone [phone] Care Team Providers Care General Machine Operator Name Role Phone Saroj Bowens DO Primary Care Provider [phone] Reason for Visit * Reason Comments Follow Up Pt here for 4 month check - Would like to discuss wearing compression socks, needs B12 shot today, would like both ears checked for wax today. 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 DX: E11.9 1 Kit 12/29/19 21 Active Vitamin D3 25 MCG (1000 UT) Oral Capsule Take 1 Capsule by mouth every evening. Active Ranolazine ER 1000 MG Oral Tablet Extended Release 12 HourIndications: Coronary artery disease of absentee-shawnee artery of absentee-shawnee heart with stable angina pectoris ([facility]) TAKE ONE TABLET BY [...] mcgIndications:Vitamin B 12 deficiency 1000 mcg IM [id number] 03/23/2024 12/26/2026 Active documented as of this encounter (statuses as of 03/24/2024) Active Problems Problem Noted Date Diagnosed Date Secondary malignant neoplasm of liver and intrahepatic bile duct 02/17/2024 Malignant neoplasm of head of pancreas Metastasis from pancreatic cancer 01/28/2024 Encounter for antineoplastic chemotherapy 2023 Atherosclerosis of absentee-shawnee ar teries of extremities with rest pain, bilateral legs 11/08/2023 Pulmonary hypertension, unspecified 07/17/2022 B12 deficiency 03/22/2022 Moderate aortic stenosis 11/28/2021 Occupational exposure to noise 09/27/2020 Coronary artery disease of n ative artery of absentee-shawnee heart with stable angina pectoris 09/17/2019 Gastroesophageal [...] Per HTN Protocol #27. [employer] Other*[id number] 09/23/2009 05/01/2016 Overview (09/23/2009): Study Titile: Genomic Markers for Patients with Cardiovascular Disease Project #[id number] PI: Yovani Marie MD Please call [phone] with study related questions Dyslipidemia, goal LDL [...] goal below 140/90 Coronary artery disease of absentee-shawnee artery of absentee-shawnee heart with stable angina pectoris (HCC) Gastroesophageal reflux disease without esophagitis Occupational exposure to noise Moderate aortic stenosis B12 deficiency Pulmonary hypertension, unspecified (HCC) Atherosclerosis of absentee-shawnee arteries of extremities with rest pain, bilateral [...] 1 Cap by mouth daily before breakfast. Encore Alert Ultra 2 w/Device Kit Use to test [...] 1HR PRIOR TO ACCESSING. 30 g 1 U[employer] Oy Ultra Test In Vitro Strip (Glucose Blood) [...] of breath. 20.1 g 2 Magic Swizzle (Nvzwiaitn-Wcvdozqo-Uibgez) oral solution Swish and spit 15 mL [...] performed by YOVANI MARIE at [facility] COLONOSCOPY, DIAGNOSTIC (RECTUM) 10/12/2019 normal / COLONOSCOPY FLEXIBLE PROXIMAL DIAGNOSTIC performed by Michael Armenta MD at [facility] CORONARY ARTERY DILATION, BALLOON 08/29/2009 PTCA, SINGLE VESSEL performed by YOVANI MARIE at [facility] EGD, FLEXIBLE, DIAGNOSTIC 10/12/2019 normal / ESOPHAGOGASTRODUODENOSCOPY (EGD), FLEXIBLE, TRANSORAL, DIAGNOSTIC performed by Michael Armenta MD at [facility]OSCOPY [facility] EGD, W/ENDOSCOPIC US N/A 01/16/2024 ESOPHAGOGASTRODUODENOSCOPY (EGD), FLEXIBLE, TRANSORAL, ENDOSCOPIC ULTRASOUND performed by Jose E Bai MD at ENDOSCOPY [facility] ERCP, DIAGNOSTIC, SPECIMEN COLLECTION N/A 01/16/2024 ENDOSCOPIC RETROGRADE CHOLANGIOPANCREATOGRAPHY (ERCP) DIAGNOSTIC performed by Jose E Bai MD at ENDOSCOPY [facility] REMOVE CATARACT, INSERT LENS PROSTH Bilateral Review [...] Metformin and Glipizide Coronary artery disease of absentee-shawnee artery of absentee-shawnee heart with stable angina pectoris (HCC) Continue [...] EST Office Visit Family Practice [address], [place] 293 [place] [address] Saroj Bowens DO 293 [place] [address] 04/17/2024 9:30 AM EST Laboratory Laboratory, [facility] 132 [facility] [place] [phone] [facility] 132 [facility] [place] [address] 04/17/2024 10:00 AM EST Imaging Radiology [facility] 1st [facility] 132 [facility] [place] [address] 04/21/2024 8:00 AM EST Hospital Encounter ENDO [facility], Endoscopy Room [facility] [address] [phone] Jose E Bai MD [address] [place] [address] 04/21/2024 8:00 AM EST - 04/21/2024 8:45 AM EST Surgery ENDO [facility], Endoscopy Room [facility] [address] [place] [address] Jose E Bai MD [address] [place] [address] ENDOSCOPIC RETROGRADE CHOLANGIOPANCREATOGRAPHY (ERCP) DIAGNOSTIC 04/28/2024 9:30 AM EST Office Visit Hematology/Oncol ogy [employer] [address] [place] [address] Marimar Del Castillo MD [address] [place] [address] Scheduled Procedures Name Priority Associated Diagnoses Date/Ti ia ENDOSCOPIC RETROGRADE CHOLANGIOPANCREATOGRAPHY (ERCP) DIAGNOSTIC Pancreatic mass [...] this encounter Medical Devices Implanted Type Area Veterinary Milk Specialist Device Identifier Shelf Expiration Date Model / Serial / Lot Stent Bili Duodenal [id number] - [id number] Implanted:Qty: 1 on 01/16/2024 by Jose E Bai MD at [facility]OSCOPY [facility] N/A: Stomach [employer] 12/02/2025 D-1031-1 007 / / [id number] documented as of this encounter Visit Diagnoses Diagnosis 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)- Primary Malignant neoplasm 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 No Care Teams General Machine Operator Relationship Specialty Start Date End Date Saroj Bowens DO [address] [place] [address] PCP - General Internal Medicine 09/09/23 documented as of this encounter
--- OUTSIDE RECORDS SUMMARY | 2024-04-01 18:55 | External Medical Summary | Summary of Care ---
Author Name Unknown Organization [facility] Address [address] [place] [address] Phone [phone] Care Team Providers Care Size Changer Name Role Phone Pedro Luis Bowens DO Primary Care Provider [phone] Reason for Visit * Reason Comments Follow Up Pt here for 4 month check - Would like to discuss wearing compression socks, needs B12 shot today, would like both ears checked for wax today. 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 Active Deltasight Ultra 2 w/Device KitIndications:Ty pe 2 diabetes [...] Release 12 HourIndications:C oronary artery disease of inaja artery of inaja heart with stable angina pectoris ([facility] [...] OneTouch Ultra Test In Vitro Strip (Glucose Blood)Indications :Type 2 diabetes mellitus with hemoglobin A1c goal [...] AM EST 10/28/19 24 Active Magic Swizzle (Lidocaine-Benadr yl-Maalox) oral [...] mcgIndications:Vitamin B 12 deficiency 1000 mcg IM [id number] 03/23/2024 12/26/2026 Active documented as of this encounter (statuses as of 03/23/2024) Active Problems Problem Noted Date Diagnosed Date Secondary malignant neoplasm of liver and intrahepatic bile duct 02/17/2024 Malignant neoplasm of head of pancreas Metastasis from pancreatic cancer 01/28/2024 Encounter for antineoplastic chemotherapy 2023 Atherosclerosis of inaja ar teries of extremities with rest pain, bilateral legs 11/08/2023 Pulmonary hypertension, unspecified 07/17/2022 B12 deficiency 03/22/2022 Moderate aortic stenosis 11/28/2021 Occupational exposure to noise 09/27/2020 Coronary artery disease of n ative artery of inaja heart with stable angina pectoris 09/17/2019 Gastroesophageal [...] Per HTN Protocol #27. [employer] Other*[id number] 09/23/2009 05/01/2016 Overview (09/23/2009): Study Titile: Genomic Markers for Patients with Cardiovascular Disease Project #[id number] PI: Yovani Marie MD Please call [phone] with study related questions Dyslipidemia, goal LDL [...] encounter Progress Notes * Pedro Luis Bowens, DO - 03/23/2024 9:25 AM EST SUBJECTIVE: [...] goal below 140/90 Coronary artery disease of inaja artery of inaja heart with stable angina pectoris (HCC) Gastroesophageal reflux disease without esophagitis Occupational exposure to noise Moderate aortic stenosis B12 deficiency Pulmonary hypertension, unspecified (HCC) Atherosclerosis of inaja arteries of extremities with rest pain, bilateral [...] 1 Cap by mouth daily before breakfast. ENDOGENX 2 w/Device Kit Use to test blood [...] 1HR PRIOR TO ACCESSING. 30 g 1 Deltasight Ultra Test In Vitro Strip (Glucose Blood) [...] of breath. 20.1 g 2 Magic Swizzle (Dspjwqpqq-Wmpipuci-Fdsgto) oral solution Swish and spit 15 mL [...] performed by YOVANI MARIE at [facility] COLONOSCOPY, DIAGNOSTIC (RECTUM) 10/12/2019 normal / COLONOSCOPY FLEXIBLE PROXIMAL DIAGNOSTIC performed by Michael Armenta MD at ENDOSCOPY [facility] CORONARY ARTERY DILATION, BALLOON 08/29/2009 PTCA, SINGLE VESSEL performed by YOVANI MARIE at [facility] EGD, FLEXIBLE, DIAGNOSTIC 10/12/2019 normal / ESOPHAGOGASTRODUODENOSCOPY (EGD), FLEXIBLE, TRANSORAL, DIAGNOSTIC performed by Michael Armenta MD at ENDOSCOPY [facility] EGD, W/ENDOSCOPIC US N/A 01/16/2024 ESOPHAGOGASTRODUODENOSCOPY (EGD), FLEXIBLE, TRANSORAL, ENDOSCOPIC ULTRASOUND performed by Jose E Bai MD at ENDOSCOPY [facility] ERCP, DIAGNOSTIC, SPECIMEN COLLECTION N/A 01/16/2024 ENDOSCOPIC RETROGRADE CHOLANGIOPANCREATOGRAPHY (ERCP) DIAGNOSTIC performed by Jose E Bai MD at ENDOSCOPY [facility] REMOVE CATARACT, INSERT LENS PROSTH Bilateral Review [...] Metformin and Glipizide Coronary artery disease of inaja artery of inaja heart with stable angina pectoris (HCC) Continue [...] for wax today. documented in this encounter Plan of Treatment Upcoming Encounters Date Type Department Care Team (Latest Contact Info) Description 04/06/2024 9:20 AM EST Office Visit [facility] [address], [address] [place] [address] Pedro Luis Bowens DO [address] [place] [address] 04/17/2024 9:30 AM EST Laboratory Laboratory, [facility] [address] [place] [address] [facility] [address] [place] [address] 04/17/2024 10:00 AM EST Imaging Radiology [facility] 1st [facility] [address] [place] [address] 04/21/2024 8:00 AM EST Hospital Encounter ENDO [facility], Endoscopy Room [facility] [address] [place] [address] Jose E Bai MD [address] [place] [address] 04/21/2024 8:00 AM EST - 04/21/2024 8:45 AM EST Surgery ENDO [facility], Endoscopy Room [facility] [place] [place] [address] Jose E Bai MD [address] [place] [address] ENDOSCOPIC RETROGRADE CHOLANGIOPANCREATOGRAPHY (ERCP) DIAGNOSTIC 04/28/2024 9:30 AM EST [facility] [address] [place] [address] Marimar Del Castillo MD [address] [place] [address] Scheduled Procedures Name Priority Associated Diagnoses Date/Ti [...] this encounter Medical Devices Implanted Type Area Ultrasound Technologist Device Identifier Shelf Expiration Date Model / Serial / Lot Stent Bili Duodenal [id number] - [id number] Implanted:Qty: 1 on 01/16/2024 by Jose E Bai MD at ENDOSCOPY [facility] N/A: Stomach [employer] 12/02/2025 [id number]-1031-1 007 / / [id number] documented as of this encounter Visit Diagnoses Diagnosis 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)- Primary Malignant 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 No Care Teams Size Changer Relationship Specialty Start Date End Date Pedro Luis Bowens DO [address] [place] [address] PCP - General Internal Medicine 09/09/23 documented as of this encounter
--- OUTSIDE RECORDS SUMMARY | 2024-04-01 18:55 | External Medical Summary | Summary of Care ---
Author Name Unknown Organization [facility] Address [address] [place] [address] Phone [phone] Care Team Providers Care Check Writing Machine Operator Name Role Phone Pedro Luis Bowens DO Primary Care Provider [phone] Reason for Visit * Reason Onset Date Comments Encounter Created in Error 03/23/2024 Error . Encounter Details Date Type Department Care Team (Late st Contact Info) Description 03/23/2024 Telephone Hematology/Oncology Treatment, [place] [address] [place] [address] Marimar Del Castillo MD [address] [place] [address] Encounter Created in Error (Error. 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 DX: E11.9 1 Kit 12/29/19 21 Active Vitamin D3 25 MCG (1000 UT) Oral Capsule Take 1 Capsule by mouth every evening. Active Ranolazine ER 1000 MG Oral Tablet Extended Release 12 HourIndications:C oronary artery disease of [place] artery of [place] heart with stable angina pectoris ([facility]) TAKE ONE TABLET BY MOUTH TWICE A [...] mcgIndications:Vitamin B 12 deficiency 1000 mcg IM [id number] 03/23/2024 12/26/2026 Active documented as of this encounter (statuses as of 03/23/2024) Active Problems Problem Noted Date Diagnosed Date Secondary malignant neoplasm of liver and intrahepatic bile duct 02/17/2024 Malignant neoplasm of head of pancreas Metastasis from pancreatic cancer 01/28/2024 Encounter for antineoplastic chemotherapy 2023 Atherosclerosis of [place] ar teries of extremities with rest pain, bilateral legs 11/08/2023 Pulmonary hypertension, unspecified 07/17/2022 B12 deficiency 03/22/2022 Moderate aortic stenosis 11/28/2021 Occupational exposure to noise 09/27/2020 Coronary artery disease of n ative artery of [place] heart with stable angina pectoris 09/17/2019 Gastroesophageal [...] r depressive disorder without prior episode 03/22/2022 12/29/202 2 Current mild episode of sania r depressive disorder without prior episode 09/27/2020 2 Dependent relative needing care at home 09/27/2020 11/28/2021 Diabetes mellitus due to und erlying condition with retinopathy and macular edema 09/17/201907/11 Inflamed seborrheic keratosis 07/28/2013 09/19/2018 HTN, GOAL BELOW 140/80 11/12/201106/29 Overview: Per HTN Protocol #27. [employer] Other*[id number] 09/23/2009 05/01/2016 Overview (09/23/2009): Study Titile: Genomic Markers for Patients with Cardiovascular Disease Project #[id number] PI: Estela Sandoval MD Please call [phone] with study related questions Dyslipidemia, goal LDL [...] EST Office Visit Family Practice [address], [place] [address] [facility] [place] [address] Pedro Luis Bowens, [address] [facility] [place] [address] 04/17/2024 9:30 AM EST Laboratory Laboratory, [facility] [address] [facility] [place] [phone] [facility] [address] [facility] [place] [address] 04/17/2024 10:00 AM EST Imaging Radiology [address] [facility] [place] [address] 04/21/2024 8:00 AM EST Hospital Encounter ENDO OSSC, Endoscopy Room [facility] [address] [facility] [place] [address] Jose E Bai MD [address] [facility] [place] [address] 04/21/2024 8:00 AM EST - 04/21/2024 8:45 AM EST Surgery ENDO OSSC, Endoscopy Room [facility] [address] [facility] [place] [id number] Jose E Bai MD [address] [facility] [place] [address] ENDOSCOPIC RETROGRADE CHOLANGIOPANCREATOGRAPHY (ERCP) DIAGNOSTIC 04/28/2024 9:30 AM EST Office Visit Hematology/Oncol [place] [place] [address] [place] [phone] Marimar Del Castillo MD [address] [place] [address] Scheduled Procedures Name Priority Associated Diagnoses Date/Ti [...] this encounter Medical Devices Implanted Type Area Health Promotion Manager Device Identifier Shelf Expiration Date Model / Serial / Lot Stent Bili Duodenal [id number] - [id number] Implanted:Qty: 1 on 01/16/2024 by Jose E Bai MD at ENDOSCOPY [facility] N/A: [employer] 12/02/2025 [id number] / / [id number] documented as of this encounter Advance Directives [...] Power of Attor ila? No Care Teams Check Writing Machine Operator Relationship Specialty Start Date End Date Pedro Luis Bowens DO [address] [facility] [place] [address] PCP - General Internal Medicine 09/09/23 documented as of this encounter
[2024-04-01] MEDS ORDERED: oxyCODONE/ACETAMINOPHEN 5mg/325mg TAB PO PRN (19:46)
[2024-04-01] MEDS: ACETAMINOPHEN 325 MG TAB PO ONE (20:06)
[2024-04-01] MEDS: AZITHROMYCIN 250 MG TAB PO ONE (20:06)
[2024-04-01] MEDS: diphenhydrAMINE Capsule 25 MG CAP PO ONE (20:06)
[2024-04-01] MEDS: PANTOprazole 80 MG in DEXTROSE 5% 100 ML IV ONE (20:06)
[2024-04-01] MEDS: FUROSEMIDE INJ 20 MG/2 ML VIAL IV ONE ×2 (20:08→23:16)
[2024-04-01] MEDS: PANTOprazole 40 MG in DEXTROSE 5% MINI-B 100 ML IV SCH (20:08)
[2024-04-01] MEDS: PANTOprazole 40 MG/10 ML SYR IV SCH (20:42)
[2024-04-01] MEDS: RANOLAZINE 500 MG ER TAB PO SCH (20:43)
[2024-04-01] MEDS: MULTIVITAMIN TAB PO SCH (20:43)
[2024-04-01] MEDS: TAMSULOSIN HCL 0.4 MG CAP PO SCH (20:43)
[2024-04-01] MEDS: MAGNESIUM OXIDE 400 MG TAB PO SCH (20:43)
[2024-04-01] MEDS ORDERED: CEFEPIME 2000MG 2,000 MG/20 ML SYR IV SCH (21:00)
[2024-04-01] MEDS ORDERED: STAT IV Infusion **Titration per Protocol STA (21:43)
[2024-04-01] MEDS: NOREPINEPHRINE/D5W 4 MG/250 ML PLCT IV SCH (22:15)
--- NOTE | 2024-04-01 22:17 | Critical Care Consultation ---
Date of Consultation April 01, 2024 Assessment & Plan (1) Primary pancreatic cancer with metastasis to other site: (2) Acute cholecystitis: (3) History of biliary stent insertion: (4) Anemia: Plan Encephalopathy- Likely metabolic in setting of shock - improved following increasing MAPS- patient is now awake and conversant Shock- likely septic secondary to acute cholecystitis in setting of pancreatic cancer and with biliary stent in place - He is with elevated temperature at 38.1, leukocytosis, and elevated NLR, as well as elevated PCT - He was diuresed earlier for concerns of acute volume overload after receiving 2L of crystalloid - He has blood infusing currently and we will increase the rate on that for volume - Continue Zosyn - Lactate favorable at 2.2 - Levophed to maintain MAPS >65, will add on vasopressin if needed prior to transport - IF time permits consideration of arterial line placement but currently getting adequate NIBP measurements and without frequent titration - HGB level is stable following PRBC with no acute drop or evidence of acute hemorrhage - Place Hale for tracking of urine output - COAGS pending as well as fibrinogen in setting of anemia and liver metastasis - Random Cortisol 56.5- adequate in setting of septic shock Hyponatremia- improved and stable would not acutely treat Anemia- stable - received 1 unit PRBC - will provide 2GM calcium gluconate as well following blood in setting of hypocalcemia on BMP Daugther and son-in-law updated real time in regards to patient being accepted to [place] as well as transport time and route. Patient will be transferred to MICU room 538 [place], [facility] - secondary to air assets not being available. Expect within the hour. I have personally spent 40 minutes of critical care time in the direct management of this patient. This is a life/limb threatening event. This includes time spent evaluating patient, direct bedside care, chart review, placing orders, interpretation of diagnostic studies, discussion with consultants, patient, and family members, as well as other required patient management activities. This time is exclusive of all separately billable procedures, and teaching time and separate from and in addition to any other critical care service time. Thank you for allowing us to participate in the care of this patient. Please refer to my attending physician's documentation for any further recommendations. History of Present Illness Reason for Consultation: shock requiring vasopressors Requesting Physician: Jamey Whittington MD Attending Physician: Jamey Whittington MD History of Present Illness 78 YOM admitted today with concerns of weakness, possible pneumonia, and melena. He was initially admitted to the medical telemetry unit and I was notified by Dr. Whittington of hypotension, fever, and concern for septic shock secondary to possibly acute cholecystitis, noted on CT scan. Discussion was had with our surgeon reclamation furnace operator by Dr. Whittington and recommended transfer for possible IR draina ge vs. other. We did call and discuss these findings with the patien'ts daughter and her Johann who are listed as POAs. They would want continued support to include vasoactive medications as well as surgical evaluation and treatment if applicable. We did discuss that likelihood of developing multiorgan dysfunction is high as well as he remains with metastatic pancreatic cancer. Patient does have a biliary stent in place that was placed in January, and there may have been some concern as well that this may becoming obstructed. Patient has been accepted to [place] [id number]. We are awaiting transport modality and time. Patient was initiated on vasopressors prior to transfer to the ICU with some favorable response to his blood pressure. He remains lethargic and attempts to talk with us, however he is very weak. Patient may need arterial line if he continues to need escalating doses of vasopressors. I did discuss this with the daughter and son-in-law, with risks and benefits and verbal consent over the phone was given. He is DNR/DNI in event of cardiac and/or respiratory arrest. Allergies Allergy/AdvReac Type Severity Reaction Status Date / Time Iodinated Contrast Media Allergy Intermediate Rash Verified 03/20/24 13:05 levofloxacin Allergy Intermediate RASH Verified 03/20/24 13:05 lisinopril AdvReac Mild Cough Verified 03/20/24 13:05 Home Medications Medication Instructions Recorded Confirmed Type multivitamin (Multiple Vitamins 1 tab PO QPM 12/02/18 04/01/24 History tablet) cholecalciferol (vitamin D3) 50 2,000 units PO QAM 01/06/19 04/01/24 History mcg (2,000 unit) tablet clopidogrel 75 mg tablet 75 mg PO QAM 01/06/19 04/01/24 History nitroglycerin 0.4 mg sublingual 0.4 mg sublingual Q5M PRN Chest 01/06/19 04/01/24 History tablet Pain #1 tab triamcinolone acetonide 0.1 % 1 appln topical BID PRN Rash 01/06/19 04/01/24 History topical cream tamsulosin 0.4 mg capsule 0.4 mg PO BID #180 caps 12/03/19 04/01/24 Rx fluticasone propionate 50 1 spray intranasal DAILY 03/16/20 04/01/24 History mcg/actuation nasal spray,suspension albuterol sulfate 90 mcg/actuation 2 inh inhalation Q6H PRN SOB 09/17/22 04/01/24 History breath activated powder inhaler atenolol 50 mg tablet 50 mg PO QAM 03/14/23 04/01/24 History pantoprazole 20 mg tablet,delayed 20 mg PO QAM 01/30/24 04/01/24 History release oxycodone-acetaminophen 5 mg-325 1 tab PO Q6H PRN pain #14 tabs 02/03/24 04/01/24 Rx mg tablet (Percocet) aspirin 81 mg tablet,delayed 81 mg PO QPM 02/07/24 04/01/24 History release cyanocobalamin (vitamin B-12) 1,000 mcg IM .EVERY 30 DAYS 02/07/24 04/01/24 History 1,000 mcg/mL injection solution iron,carbonyl 65 mg-vitamin C 125 1 tab PO Q OTHER DAY 02/07/24 04/01/24 History mg tablet,delayed release (Vitron-C) isosorbide mononitrate 60 mg 120 mg PO QAM 02/07/24 04/01/24 History tablet,extended release 24 hr lidocaine-prilocaine 2.5 %-2.5 % 1 applic topical UD 02/07/24 04/01/24 History topical cream ondansetron HCl 8 mg tablet 8 mg PO Q8 PRN Nausea 02/07/24 04/01/24 History polyethylene glycol 3350 17 17 g PO DAILY 02/07/24 04/01/24 History gram/dose oral powder (Miralax) prochlorperazine maleate 10 mg 10 mg PO Q6 PRN Nausea 02/07/24 04/01/24 History tablet magnesium oxide 400 mg (241.3 mg 400 mg PO BID #30 tabs 02/13/24 04/01/24 Rx magnesium) tablet furosemide 20 mg tablet (Lasix) 20 mg PO DAILY 12/27/24 01/08/25 History metformin 500 mg tablet,extended 1,000 mg PO BID 03/20/24 04/01/24 History release 24 hr L.acidophilus-L.plantarum-B.animalis-B.longum 1 cap PO DAILYBB 04/01/24 04/01/24 History 2 billion cell capsule (Probiotic Acidophilus Beads) potassium chloride 10 mEq 10 meq PO QAM 04/01/24 04/01/24 History capsule,extended release ranolazine 500 mg tablet,extended 500 mg PO AMHS 04/01/24 04/01/24 History release,12 hr Patient History Medical History Pancreatic cancer stage 4; now with mets Hx of renal calculi Dyspnea reason for inhaler, uses every morning Angina pectoris chronic stable class I per cardio; follows closely with [facility] Cardio Non Q wave myocardial infarction 2002; 'questionable per pt' CAD (coronary artery disease) CABG August 1999, LM and LAD stents August 2009, RCA and LAD stents September 2009 Aortic stenosis follows with Dr. Lunsford; mild-mod per 08/27/23 ECHO BPH (benign prostatic hyperplasia) GERD (gastroesophageal reflux disease) Hyperlipidemia Hypertension Type 2 diabetes mellitus Surgical History Hx of CABG 1999 > 4 vessels > [facility] > follows with Dr. Lunsford History of insertion of pancreatic stent (01/16/24) [facility] Hx of biopsy (12/2023) pancreas and liver History of left cataract surgery History of esophagogastroduodenoscopy (EGD) History of colonoscopy History of tooth extraction History of tonsillectomy H/O lithotripsy Hx of cardiac cath 2009 > 5 stents - [facility] (LM and LAD stents August 2009, RCA and LAD stents September 2009) Family History Father Myocardial infarction Other Diabetes Heart disease Social History Smoking Status: Former smoker Tobacco Type: Cigarettes Second Hand Exposure: No; Do You Dip or Chew Tobacco: No; Hx Alcohol Use: Yes Alcohol type: hard liquor Hx Substance Use: No Preferred Language: Kinyarwanda Communication Ability: Effective Rail Engineer Required: No Beliefs That Will Affect Care: None marital status: Current Living Situation: Significant Other Current Living Situation Comment: house- no stairs Feels Safe at Home: Yes Assistive Devices: Glasses, Hearing Aid - Bilateral and Walker Review of Systems Review of Systems: unable to obtain secondary to lethargy Physical Exam Physical Exam: PHYSICAL EXAM: General: lethargic, ill appearing Head: Normocephalic, atraumatic Neuro: AAO x 2, speech weak, does follow simple commands and moves extremities weakly Chest: equal rise and fall of the chest, no accessory muscle use, decreased in the bases bilaterally, Cardiac: Regular rate and rhythm, telemetry reviewed- sinus tachycardia, skin warm dry, cap refill <3 seconds, peripheral pulses +2 no JVD, no murmur, GI: NABS x 4 quadrants, soft,tender to palpation, no rebound, guarding : Hale placed to gravity Psych: Normal mood and affect Skin: jaundiced appearing, Results & Data Results & Data Vital Signs (Past 12 Hours) Vital Signs Temp Pulse Pulse Pulse Pulse Resp BP 04/01/24 21:45 04/01/24 21:33 36.6 C 97 H 20 79/41 L 04/01/24 21:19 36.6 C 96 H 20 04/01/24 21:03 36.6 C 94 H 22 84/46 L 04/01/24 20:48 36.7 C 99 H 18 72/49 L 04/01/24 20:31 36.8 C 99 H 16 72/46 L 04/01/24 20:00 37.2 C 101 H 20 04/01/24 18:07 38.2 C H 109 H 24 04/01/24 16:56 39.5 C H 126 H 32 H 04/01/24 16:35 04/01/24 16:35 39.5 C H 126 H 30 H 04/01/24 16:24 17 L 04/01/24 15:32 36.6 C 109 H 33 H 04/01/24 14:21 36.5 C 04/01/24 14:00 96/73 L 04/01/24 14:00 83 23 04/01/24 13:36 134/70 04/01/24 13:18 04/01/24 13:00 77 13 04/01/24 12:51 75 24 04/01/24 12:42 75 21 04/01/24 12:30 124/66 04/01/24 12:27 76 14 04/01/24 12:15 04/01/24 12:09 78 14 04/01/24 12:09 04/01/24 12:07 78 04/01/24 11:58 04/01/24 11:57 109/76 04/01/24 11:31 36.5 C 76 20 89/47 L BP BP Pulse Ox O2 Del Method O2 Flow Rate 04/01/24 21:45 Nasal Cannula 2 04/01/24 21:33 98 2 04/01/24 21:19 95/55 L 98 Nasal Cannula 2 04/01/24 21:03 98 2 04/01/24 20:48 99 2 04/01/24 20:31 98 2 04/01/24 20:00 79/43 L 98 Nasal Cannula 2 04/01/24 18:07 96/57 L 100 Nasal Cannula 2 04/01/24 16:56 125/42 L 99 Nasal Cannula 3 04/01/24 16:35 Nasal Cannula 3 04/01/24 16:35 125/42 L 99 Nasal Cannula 3 04/01/24 16:24 04/01/24 15:32 108/64 100 Nasal Cannula 3 04/01/24 14:21 04/01/24 14:00 04/01/24 14:00 98 04/01/24 13:36 99 04/01/24 13:18 98 04/01/24 13:00 04/01/24 12:51 100 04/01/24 12:42 04/01/24 12:30 04/01/24 12:27 99 04/01/24 12:15 100 04/01/24 12:09 124/68 100 Room Air 04/01/24 12:09 Room Air 04/01/24 12:07 04/01/24 11:58 Room Air 04/01/24 11:57 04/01/24 11:31 97 Room Air Laboratory Results Abnormal lab results 04/01/24 04/01/24 04/01/24 Range/Units 12:22 12:40 12:55 WBC 14.18 H (4.8-10.8) K/ul RBC 2.74 L (4.70-6.10) M/uL Hgb 7.7 L (14.0-18.0) g/dl Hct 23.2 L (42.0-52.0) % RDW Std Deviation 54.0 H (36.4-46.3) fL RDW Coeff of Loli 17.5 H (11.5-14.5) % MPV 8.6 L (9.4-12.4) fL Neut # (Auto) 11.96 H (1.40-6.50) K/uL Lymph # (Auto) 1.01 L (1.20-3.40) K/uL Wharton # (Auto) 1.08 H (0.11-0.59) K/uL PT 12.7 H (9.0-12.0) Seconds INR 1.2 H (0.9-1.1) VBG pCO2 37 L (38-50) mmHg Sodium 127 L (136-145) mmol/L Chloride 96 L (98-107) mmol/L Carbon Dioxide (21-32) mmol/L BUN/Creatinine Ratio 23.0 H (10-20) POC Glucose (70-99) mg/dl Lactate (0.4-2.0) mmol/L Calcium (8.6-10.3) mg/dl Transferrin 110 L (200-360) mg/dl Total Bilirubin 2.0 H (0.2-1.0) mg/dl Direct Bilirubin 1.3 H (0-0.2) mg/dl AST 47 H (13-39) U/L Alkaline Phosphatase 784 H (34-104) U/L Troponin I High Sens 53.0 H* (0-20) pg/ml B-Natriuretic Peptide 672 H (0-100) pg/ml Total Protein 5.8 L (6.0-8.3) gm/dl Albumin 2.4 L (3.4-5.0) gm/dl Procalcitonin 1.13 H (0-0.5) ng/ml Urine Protein 1+ H (Negative) Urine Nitrite Positive A (Negative) Urine Bilirubin 2+ H (Negative) Urine Urobilinogen Positive H (Negative) Ur Leukocyte Esterase 1+ H (Negative) Urine RBC (Auto) >20 H (0-2) /hpf U Hyaline Cast (Auto) 3-5 H (0-2) /lpf Calcium Oxalate Crystal Present A (None Prsent) Urine Mucus Present A (None Prsent) Crossmatch See Detail 04/01/24 04/01/24 04/01/24 Range/Units 17:05 17:06 17:38 WBC (4.8-10.8) K/ul RBC (4.70-6.10) M/uL Hgb 7.7 L (14.0-18.0) g/dl Hct 23.5 L (42.0-52.0) % RDW Std Deviation (36.4-46.3) fL RDW Coeff of Loli (11.5-14.5) % MPV (9.4-12.4) fL Neut # (Auto) (1.40-6.50) K/uL Lymph # (Auto) (1.20-3.40) K/uL Wharton # (Auto) (0.11-0.59) K/uL PT (9.0-12.0) Seconds INR (0.9-1.1) VBG pCO2 (38-50) mmHg Sodium 129 L (136-145) mmol/L Chloride (98-107) mmol/L Carbon Dioxide 20 L (21-32) mmol/L BUN/Creatinine Ratio 23.3 H (10-20) POC Glucose 56 L* 54 L* (70-99) mg/dl Lactate (0.4-2.0) mmol/L Calcium 7.8 L (8.6-10.3) mg/dl Transferrin (200-360) mg/dl Total Bilirubin (0.2-1.0) mg/dl Direct Bilirubin (0-0.2) mg/dl AST (13-39) U/L Alkaline Phosphatase (34-104) U/L Troponin I High Sens (0-20) pg/ml B-Natriuretic Peptide (0-100) pg/ml Total Protein (6.0-8.3) gm/dl Albumin (3.4-5.0) gm/dl Procalcitonin (0-0.5) ng/ml Urine Protein (Negative) Urine Nitrite (Negative) Urine Bilirubin (Negative) Urine Urobilinogen (Negative) Ur Leukocyte Esterase (Negative) Urine RBC (Auto) (0-2) /hpf U Hyaline Cast (Auto) (0-2) /lpf Calcium Oxalate Crystal (None Prsent) Urine Mucus (None Prsent) Crossmatch 04/01/24 Range/Units 22:31 WBC (4.8-10.8) K/ul RBC (4.70-6.10) M/uL Hgb (14.0-18.0) g/dl Hct (42.0-52.0) % RDW Std Deviation (36.4-46.3) fL RDW Coeff of Loli (11.5-14.5) % MPV (9.4-12.4) fL Neut # (Auto) (1.40-6.50) K/uL Lymph # (Auto) (1.20-3.40) K/uL Wharton # (Auto) (0.11-0.59) K/uL PT (9.0-12.0) Seconds INR (0.9-1.1) VBG pCO2 (38-50) mmHg Sodium (136-145) mmol/L Chloride (98-107) mmol/L Carbon Dioxide (21-32) mmol/L BUN/Creatinine Ratio (10-20) POC Glucose (70-99) mg/dl Lactate 2.2 H* (0.4-2.0) mmol/L Calcium (8.6-10.3) mg/dl Transferrin (200-360) mg/dl Total Bilirubin (0.2-1.0) mg/dl Direct Bilirubin (0-0.2) mg/dl AST (13-39) U/L Alkaline Phosphatase (34-104) U/L Troponin I High Sens (0-20) pg/ml B-Natriuretic Peptide (0-100) pg/ml Total Protein (6.0-8.3) gm/dl Albumin (3.4-5.0) gm/dl Procalcitonin (0-0.5) ng/ml Urine Protein (Negative) Urine Nitrite (Negative) Urine Bilirubin (Negative) Urine Urobilinogen (Negative) Ur Leukocyte Esterase (Negative) Urine RBC (Auto) (0-2) /hpf U Hyaline Cast (Auto) (0-2) /lpf Calcium Oxalate Crystal (None Prsent) Urine Mucus (None Prsent) Crossmatch Diagnostic Findings Chest X-Ray 04/01/24 11:43 XR chest 1V portable CLINICAL HISTORY: Sepsis COMPARISON STUDY: 02/25/2024 FINDINGS: Stable right chest port. Stable CABG. Stable mild cardiomegaly without pulmonary vascular congestion. There is increased patchy opacity at the right upper lung laterally. No pleural effusion or pneumothorax. IMPRESSION: Increased pneumonia on the right. ACT 112: Negative or not required by law. Electronically signed by: Elgin Adair M.D. 04/01/2024 12:[address] 04/01/24 13:39 CT chest diagnostic wo con CT DOSE: 1422.63 mGy.cm CLINICAL HISTORY: 78 years-old Male with pneumonia, r/o effusion, abscess. Acute shortness of breath TECHNIQUE: Multiaxial CT images of the chest were performed without contrast. A dose lowering technique was utilized adhering to the principles of ALARA. COMPARISON: CT abdomen and pelvis of same day and also 02/07/2024, chest radiograph 02/25/2024 FINDINGS: Unremarkable thyroid. Subcarinal lymph nodes measure up to 11 mm. No pathologically enlarged hilar lymph nodes. Mild cardiomegaly. Median sternotomy and CABG. Extensive ak chin coronary artery calcifications with coronary arterial stenting. Atherosclerosis of the aorta are without aneurysm. Right IJ Vjamgm-m-Itdu catheter distal tip terminates in the inferior SVC. Trace pleural effusions. Moderate pulmonary emphysema. Patchy bilateral grou ndglass opacities are most pronounced in the right upper lobe with air is also mild patchy consolidation. Numerous scattered bilateral solid pulmonary nodules measure up to approximately 6 mm. Upper abdominal ascites with multifocal hepatic metastasis. CT abdomen and pelvis dictated separately. Partially imaged distended gallbladder with biliary ductal dilation and biliary stent in place. Unremarkable soft tissues. No acute fracture. IMPRESSION: 1. Pulmonary emphysema with patchy bilateral groundglass opacities, most pronounced within the right upper lobe which are likely infectious or inflammatory. 2. Subcarinal lymphadenopathy. 3. Scattered subcentimeter solid pulmonary nodules measure up to 6 mm. Follow-up recommended. 4. Please refer to the same day CT abdomen and pelvis study for discussion of the abdominal findings. ACT 112: Negative or not required by law. Electronically signed by: Manuel Calderon M.D. 04/01/2024 3:15 PM Abdomen/Pelvis CT 04/01/24 14:28 CT OF THE ABDOMEN AND PELVIS WITHOUT CONTRAST CLINICAL HISTORY: Abdominal distention, r/o ascites, liver mets. Pancreatic cancer. COMPARISON STUDY: CT of the abdomen and pelvis February 07, 2024. MRCP February 08, 2024. TECHNIQUE: Axial images of the abdomen and pelvis were obtained without IV contrast. Images were reviewed in the axial, sagittal, and coronal planes. Automated exposure control was utilized for the study. A dose lowering technique was utilized adhering to the principles of ALARA. FINDINGS: Numerous small subpleural pulmonary nodules are noted. Please note that the chest CT will be reported separately. There is a small amount of abdominal and pelvic ascites. No pneumatosis, free air or portal venous gas is present. A biliary stent remains in place. Moderate biliary ductal dilatation is similar to CT of February 07, 2024. Numerous hepatic lesions are similar to prior CT. Index segment 7 lesion on image 52 of 373 measures 3.8 cm. These are suboptimally assessed on unenhanced exam. Gallbladder distention has increased. Note is also made of gallbladder wall thickening with pericholecystic fluid. Pancreatic head lesion is not well-visualized on this unenhanced exam. No pancreatic ductal dilatation. There is no hydronephrosis. There is no evidence for a bowel obstruction. A moderate amount of stool within the colon and rectum is present. There is ascites within bilateral inguinal hernias. No suspicious lesions within the visualized skeletal structures are identified. There is colonic diverticulosis without evidence for acute diverticulitis. IMPRESSION: 1. Increase in gallbladder distention with gallbladder wall thickening and pericholecystic fluid. Sludge versus stones within the gallbladder. The findings are suspicious for acute cholecystitis. 2. Biliary stent in place. No change in moderate biliary ductal dilatation. 3. No significant change hepatic metastases. Primary pancreatic lesion not well-visualized on unenhanced CT. 4. Small amount of abdominal and pelvic ascites. 5. No evidence for a bowel obstruction. Moderate amount of stool within the colon and rectum. ACT 112: Negative or not required by law. Electronically signed by: Owen Valle M.D. 04/01/2024 3:48 PM Chest X-Ray 04/01/24 15:14 EXAM: Chest x-ray 2 view CLINICAL HISTORY: Wheezing history of cancer PRIORS: 02/25/2024 TECHNIQUE: AP portable upright FINDINGS: The chest is well-expanded. A right sided Mediport catheter is present with distal tip at the atriocaval junction. Streaky opacity is present in the right upper lobe, appearing in the interval. Median sternotomy wires and postsurgical change of the mediastinum noted. Moderate to advanced atherosclerotic disease of the aortic knob noted. Heart size is normal. No pneumothorax. Trachea is patent. IMPRESSION: Streaky opacity in the right upper lobe, appearing in the interval, which may suggest pneumonia given the stated clinical history. Electronically signed by Yanci Hernández 04-01-2024 4:11 PM Medications Administered Acetaminophen (Acetaminophen 325 Mg Tab) 650 mg PO Q4H PRN PRN Reason: Pain or Fever Stop: 05/01/24 14:40 Last Admin: 04/01/24 17:25 Dose: 650 mg Documented By: RRR Dextrose (Dextrose 50% 50 Ml Syringe) 25 - 50 ml IV UD PRN; Protocol PRN Reason: Hypoglycemia Protocol Stop: 05/01/24 14:40 Last Admin: 04/01/24 17:09 Dose: 25 ml Documented By: RRR Pantoprazole Sodium (Protonix) 40 mg in 10 mls @ 5 mls/min IV BID [facility] Stop: 05/01/24 19:29 Last Admin: 04/01/24 20:42 Dose: 5 mls/min Documented By: JUANCARLOS Norepinephrine Bitartrate (Levophed/D5w) 4 mg in 250 mls @ 18.218 mls/hr IV .[id number] ALESSANDRO; Protocol Stop: 05/01/24 21:44 Last Titration: 04/01/24 22:38 Dose: 0.07 mcg/kg/min, 18.2 mls/hr Documented By: TLBerna Co-signed By: NEYDA Admin: 04/01/24 22:15 Dose: 0.05 mcg/kg/min, 13 mls/hr Documented By: TLM Co-signed By: MNBerna Insulin Aspart (Insulin Aspart Per Unit Charge) 0 units SC ACHS ALESSANDRO Stop: 05/01/24 16:29 Last Admin: 04/01/24 21:41 Dose: Not Given Documented By: Admin: 04/01/24 17:59 Dose: Not Given Documented By: RRR Magnesium Oxide (Magnesium Oxide 400 Mg Tab) 400 mg PO BID [facility] Stop: 05/01/24 20:59 Last Admin: 04/01/24 20:43 Dose: 400 mg Documented By: TRM Multivitamins (Multivitamin Tab) 1 tab PO QPM [facility] Stop: 05/01/24 20:59 Last Admin: 04/01/24 20:43 Dose: 1 tab Documented By: JUANCARLOS Ranolazine (Ranolazine 500 Mg Er Tab) 500 mg PO AMHS ALESSANDRO Stop: 05/01/24 20:59 Last Admin: 04/01/24 20:43 Dose: 500 mg Documented By: TRM Tamsulosin HCl (Tamsulosin Hcl 0.4 Mg Cap) 0.4 mg PO BID ALESSANDRO Stop: 05/01/24 20:59 Last Admin: 04/01/24 20:43 Dose: 0.4 mg Documented By: TRM Discontinued Medications Acetaminophen (Acetaminophen 325 Mg Tab) 650 mg PO PRE-TREAT ONE Stop: 04/01/24 14:42 Last Admin: 04/01/24 20:06 Dose: Not Given Documented By: JUANCARLOS Azithromycin (Azithromycin 250 Mg Tab) 500 mg PO NOW ONE Stop: 04/01/24 14:42 Last Admin: 04/01/24 20:06 Dose: Not Given Documented By: JUANCARLOS Diphenhydramine HCl (Diphenhydramine Capsule 25 Mg Cap) 25 mg PO PRE-TREAT ONE Stop: 04/01/24 14:42 Last Admin: 04/01/24 20:06 Dose: Not Given Documented By: JUANCARLOS Furosemide (Furosemide Inj 20 Mg/2 Ml Vial) 20 mg IV ONE ONE Stop: 04/01/24 15:11 Last Admin: 04/01/24 20:08 Dose: Not Given Documented By: JUANCARLOS Furosemide (Furosemide 40 Mg/4 Ml Vial) 40 mg IV ONE ONE Stop: 04/01/24 15:17 Last Admin: 04/01/24 15:23 Dose: 40 mg Documented By: ISIDRO Sodium Chloride (Nss) 500 mls @ 999 mls/hr IV .Q31M ONE Stop: 04/01/24 12:13 Last Infusion: 04/01/24 13:26 Dose: Infused Documented By: Admin: 04/01/24 12:55 Dose: 999 mls/hr Documented By: QGV Cefepime HCl (Maxipime 2000mg) 2,000 mg in 20 mls @ 5 mls/min IV NOW STA; Protocol Stop: 04/01/24 12:59 Last Admin: 04/01/24 13:37 Dose: 5 mls/min Documented By: LISS Sodium Chloride (Nss) 1,000 mls @ 999 mls/hr IV .Q1H1M ONE Stop: 04/01/24 13:56 Last Infusion: 04/01/24 15:17 Dose: Infused Documented By: Admin: 04/01/24 14:16 Dose: 999 mls/hr Documented By: LISS Sodium Chloride (Nss) 500 mls @ 999 mls/hr IV .Q31M ONE Stop: 04/01/24 13:26 Last Infusion: 04/01/24 14:15 Dose: Infused Documented By: Admin: 04/01/24 13:44 Dose: 999 mls/hr Documented By: LISS Sodium Chloride (Nss) 1,000 mls @ 80 mls/hr IV .[id number] [facility] Stop: 04/02/24 14:40 Last Admin: 04/01/24 18:13 Dose: Not Given Documented By: LUCIO Pantoprazole Sodium 40 mg/ (Dextrose) 100 mls @ 20 mls/hr IV Q5H [facility] Stop: 05/01/24 14:59 Last Admin: 04/01/24 20:08 Dose: Not Given Documented By: JUANCARLOS Pantoprazole Sodium 80 mg/ (Dextrose) 120 mls @ 480 mls/hr IV NOW ONE Stop: 04/01/24 14:59 Last Admin: 04/01/24 20:06 Dose: Not Given Documented By: JUANCARLOS Piperacillin Sod/Tazobactam Sod (Zosyn) 4.5 gm in 100 mls @ 200 mls/hr IV 1900 ONE; Protocol Stop: 04/01/24 19:29 Last Infusion: 04/01/24 18:42 Dose: Infused Documented By: [facility] Admin: 04/01/24 18:12 Dose: 200 mls/hr Documented By: LUCIO Ipratropium [place] (Ipratropium [place] Neb Soln 0.02% 0.5mg/2.5ml Vial) 0.5 mg NEB NOW STA Stop: 04/01/24 15:11 Last Admin: 04/01/24 15:31 Dose: 0.5 mg Documented By: ISIDRO Levalbuterol HCl (Levalbuterol 1.25 Mg/3 Ml Neb) 1.25 mg NEB NOW STA Stop: 04/01/24 15:11 Last Admin: 04/01/24 15:31 Dose: 1.25 mg Documented By: ISIDRO Norepinephrine Bitartrate (Norepinephrine/D5w 4 Mg/250 Ml) Confirm Administered Dose 4 mg IV .STK-MED ONE Stop: 04/01/24 21:49 Last Admin: 04/01/24 22:37 Dose: Not Given Documented By: TLM Pantoprazole Sodium (Pantoprazole Bolus/Drip) 1 each IV NOW STA Stop: 04/01/24 14:42 Last Admin: 04/01/24 14:49 Dose: Not Given Documented By: LISS Coding Level of Care Code 11784 CRITICAL CARE 1ST 30-74M Diagnoses Primary pancreatic cancer with metastasis to other site C25.9 Acute cholecystitis K81.0 History of biliary stent insertion Z98.890 Anemia D64.9 Anemia type: unspecified type (4) Anemia Anemia type: unspecified type Qualified Code(s): D64.9 - Anemia, unspecified
[2024-04-01] MEDS: NOREPINEPHRINE/D5W 4 MG/250 ML IV ONE (22:37)
[2024-04-01] MEDS: ACETAMINOPHEN 1,000 MG/100 ML VIAL IV PRN (23:19)
[2024-04-01] MEDS: CALCIUM GLUCONATE 1,000 MG/60 ML BAG IV SCH (23:23)
[2024-04-01 23:46] LABS: Fibrinogen 341 mg/dl (184-400); INR 1.2 (0.9-1.1); Prothrombin Time 13.2 Seconds (9.0-12.0)
[2024-04-02 00:02] VITALS: BP 92/57; PULSE 97; RESP 24; TEMP 99.7; O2SAT 100
[2024-04-02] MEDS ORDERED: PIPERACILLIN/TAZOBACTAM 4.5 GM/100 ML BAG IV SCH (02:00)
[2024-04-02] MEDS ORDERED: ADVANCED PROBIOTIC 625 MG CAPSULE PO SCH (06:30)
--- NOTE | 2024-04-02 07:33 | Electrocardiogram Report ---
Test Reason : Blood Pressure : */* mmHG Vent. 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
[2024-04-02] MEDS ORDERED: ASCORBIC ACID 500 MG TAB PO SCH (09:00)
[2024-04-02] MEDS ORDERED: AZITHROMYCIN 250 MG TAB PO SCH (09:00)
[2024-04-02] MEDS ORDERED: FERROUS SULFATE 325 MG TAB PO SCH (09:00)
[2024-04-02] MEDS ORDERED: CHOLECALCIFEROL 25 MCG (1000 UNITS) TAB PO SCH (09:00)
--- NOTE | 2024-04-02 09:13 | Electrocardiogram Report ---
Test Reason : Blood Pressure : */* mmHG Vent. 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 rate has increased by [address] elevation in Inferior leads now present ST now depressed in Anterolateral leads Confirmed by Corwin Jasso ([id number]) on 04/02/2024 9:12:50 AM Referred By: Pedro Luis Bowens Confirmed By: Corwin Jasso
[2024-04-02 12:17] LABS: A calco-baum cmplx NotReported Not Detected (NotDetected); Bact fragilis Not Reported Not Detected (NotDetected); Blood Culture Id Panel See PCR Comment (NotDetected); C auris Not Reported Not Detected (NotDetected); Calbicans Not Reported Not Detected (NotDetected); Candida glabrata Not Reported Not Detected (NotDetected); Candida krusei Not Reported Not Detected (NotDetected); Cneoformans/gatti Not Reported Not Detected (NotDetected); Cparapsilosis Not Reported Not Detected (NotDetected); E cloacae compx Not Reported Not Detected (NotDetected); Efaecalis Not Reported Not Detected (NotDetected); Efaecium Not Reported Not Detected (NotDetected); Enterobacterales Not Reported Not Detected (NotDetected); Escherichia coli Not Reported Not Detected (NotDetected); H influenzae Not Reported Not Detected (NotDetected); K aerogenes Not Reported Not Detected (NotDetected); Koxytoca Not Reported Not Detected (NotDetected); Kpneumoniae grp Not Reported Not Detected (NotDetected); Lmonocyt Not Reported Not Detected (NotDetected); N meningitidis Not Reported Not Detected (NotDetected); P aeruginosa Not Reported Not Detected (NotDetected); Proteus spp Not Reported Not Detected (NotDetected); Salmonella spp Not Reported Not Detected (NotDetected); Staph lugdunensis Not Reported Not Detected (NotDetected); Staph spp. Not Reported Not Detected (NotDetected); Staphaureus Not Reported Not Detected (NotDetected); Staphepi Not Reported Not Detected (NotDetected); Stenmaltophilia Not Reported Not Detected (NotDetected); Strep agal(GrpB) Not Reported Not Detected (NotDetected); Strep pneum Not Reported Not Detected (NotDetected); Strep pyog (GrpA) Not Reported Not Detected (NotDetected); Strep spp Not Reported DETECTED (NotDetected)
[2024-04-02 13:11] LABS: Streptococcus spp DETECTED (NotDetected)
[2024-04-03 05:42] LABS: A calco-baum cmplx NotReported Not Detected (NotDetected); Bact fragilis Not Reported Not Detected (NotDetected); Blood Culture Id Panel PCR Panel Negative (NotDetected); C auris Not Reported Not Detected (NotDetected); Calbicans Not Reported Not Detected (NotDetected); Candida glabrata Not Reported Not Detected (NotDetected); Candida krusei Not Reported Not Detected (NotDetected); Cneoformans/gatti Not Reported Not Detected (NotDetected); Cparapsilosis Not Reported Not Detected (NotDetected); E cloacae compx Not Reported Not Detected (NotDetected); Efaecalis Not Reported Not Detected (NotDetected); Efaecium Not Reported Not Detected (NotDetected); Enterobacterales Not Reported Not Detected (NotDetected); Escherichia coli Not Reported Not Detected (NotDetected); H influenzae Not Reported Not Detected (NotDetected); K aerogenes Not Reported Not Detected (NotDetected); Koxytoca Not Reported Not Detected (NotDetected); Kpneumoniae grp Not Reported Not Detected (NotDetected); Lmonocyt Not Reported Not Detected (NotDetected); N meningitidis Not Reported Not Detected (NotDetected); P aeruginosa Not Reported Not Detected (NotDetected); Proteus spp Not Reported Not Detected (NotDetected); Salmonella spp Not Reported Not Detected (NotDetected); Staph lugdunensis Not Reported Not Detected (NotDetected); Staph spp. Not Reported Not Detected (NotDetected); Staphaureus Not Reported Not Detected (NotDetected); Staphepi Not Reported Not Detected (NotDetected); Stenmaltophilia Not Reported Not Detected (NotDetected); Strep agal(GrpB) Not Reported Not Detected (NotDetected); Strep pneum Not Reported Not Detected (NotDetected); Strep pyog (GrpA) Not Reported Not Detected (NotDetected); Strep spp Not Reported Not Detected (NotDetected)
--- NOTE | 2024-04-03 07:51 | Communication Note ---
Date of Service: April 03, 2024 Called and notified Guillermo doctor vocational rehabilitation administrator positive blood culture results, one bottle growing gm positive cocci in chains and other bottle growing gm negative bacilli, on Apr 03 2024.
== END 2024-04-02 00:16 | disposition short-term general hospital (02) | DRG 871 ==
LOC: ED 11:29 → EDINP 13:39 → 2N 14:42 → 1E 22:13

== ENCOUNTER 2024-04-25 17:42 | Inpatient (IN) ==
--- NOTE | 2024-04-25 17:50 | Emergency Department Note ---
Impression & Plan Hypoxia Admission ED Provider Note HPI: History obtained from patient. The patient is a 78-year-old gentleman with history of metastatic pancreatic cancer, he states he is no longer on any chemo or radiation therapy, presents the emergency department after an episode of syncope at home today. Patient arrives via ambulance, he states that he was feeling very nauseous today and he went to have a bowel movement, he states he got up off the toilet and started walking through his house and then "passed out". Per EMS the patient was hypoxic in the field in the 80s, he was placed on a nonrebreather mask with improvement in his saturations into the 90s. Patient was also noted to be hypotensive in the 90s prior to arrival. On arrival here to the ED the patient is mildly tachycardic in the 120s, blood pressures in the 80s systolic, patient is alert with notable increased work of breathing on arrival. ROS: - Per HPI Differential Diagnosis: Aspiration pneumonia, pulmonary embolism, small bowel obstruction secondary to metastatic disease, acute cholecystitis, ascending cholangitis, ACS, pulmonary edema, sepsis, amongst other potential pathologies. *Outpatient medications and allergy history reviewed. PE: General: Alert, frail-appearing HEENT: Normocephalic, trachea midline Eyes: Extraocular eye movement is intact, no scleral erythema Pulmonary: Diminished bilateral breath sounds with tachypnea noted Cardio: Tachycardic rate with regular rhythm GI: There is moderate abdominal distention, nontender to palpation : No suprapubic tenderness MSK: No evidence of trauma or malformation of the extremities, no edema Skin: No evidence of rash Neuro: Alert, no focal deficits Psychiatric: Cooperative INDEPENDENT INTERPRETATIONS: awake overnight monitor: (As interpreted by myself): - An order was placed for continuous cardiac monitoring - Patient was noted to be in atrial fibrillation with a rate of 121 EKG: (As interpreted by myself): Rate: 118 Rhythm: Atrial fibrillation with RVR Intervals: Within normal limits ST changes: No ST elevation Time: 1748 Chest x-ray: (As interpreted by myself): Left basilar opacity Interventions provided in ED: -IV fluid bolus, IV Unasyn Medical Decision Making: IV was established and lab work obtained, patient was placed on air sampling and monitoring. Lab work shows a leukopenia at 1.83, hemoglobin is 8.9 which appears to be the patient's baseline, platelet count is normal, CMP does not show any evidence of any critical findings, lactic acid was elevated at 4.3, patient was given greater than 30 cc/kg of IV fluid given presenting hypotension. Did have improvement in his blood pressure over time to 105/63. Patient remained stable on oxime mask, he was briefly trialed on BiPAP but became nauseous and had an episode of vomiting therefore continued with oxy mask. CT imaging of the head does not show any evidence of acute intracranial process, CT imaging of the abdomen pelvis does not show any evidence of bowel obstruction, otherwise no evidence of any acute surgical process is noted. Biliary stent appears in place. Overall the patient is very frail and cachectic appearing, I suspect that his respiratory status and hypoxia are secondary to aspiration pneumonia at this point. Unclear source for his vomiting. His viral panel testing is negative. Following discussion with the patient and his family, he would like to continue with DNR/DNI CODE STATUS. At this time he would like to continue medical therapy to that point. I discussed the patient's presentation with the on-call hospitalist, Dr. Mosley, and the patient was placed for admission in fair but guarded condition. Consultants/Discussions held with other healthcare providers: -Hospitalist, Dr. Mosley Disposition discussion held by myself with: -Patient and patient's brother at the bedside as well as multiple other family members * CRITICAL CARE TIME: ( 55 ) minutes -Hypoxia documented as low as 60% on room air requiring supplemental oxygen with oxy mask for correction, time spent at the bedside, interpretation of diagnostic studies, discussion with patient and family at bedside in regards to CODE STATUS and critical condition, discussion with other physicians and arrangement of admission. Diagnosis: 1. Hypoxia, acute 2. Aspiration pneumonia, acute 3. Metastatic pancreatic cancer 4. Lactic acidosis, acute 5. Elevated procalcitonin, acute Disposition: Admission Bob Green DO Emergency Medicine Past Med/Surg History Problem List (Updated 04/25/24 @ 22:19 by Bob Green DO) Hypoxia (Acute) History of biliary stent insertion Acute cholecystitis Dyspnea Primary pancreatic cancer with metastasis to other site Melena Acute hyponatremia (Acute) Elevated troponin I level (Acute) Anemia (Acute) Pneumonia (Acute) Oropharyngeal candidiasis COVID-19 virus infection Rapidly progressive weakness Elevated troponin Pancytopenia COVID-19 (Acute) Neutropenia (Acute) Acute hyponatremia (Acute) Pancreatic cancer (Acute) Anemia (Acute) Non-ST elevation [place] (NSTEMI) (Acute) Weakness (Acute) S/P coronary artery stent placement Non-ST elevation (NSTEMI) myocardial infarction Abdominal pain Fever (Acute) Pancreatic cancer metastasized to liver (Acute) Acute non-ST elevation myocardial infarction (NSTEMI) (Acute) Abnormal LFTs Severe sepsis Encounter for pre-operative examination Hx of CABG 1999 > 4 vessels > [facility] > follows with Dr. Lunsford Angina pectoris chronic stable class I per cardio Aortic stenosis (Acute) CAD (coronary artery disease) (Acute) Dry skin (Acute) Enlarged prostate with lower urinary tract symptoms (LUTS) (Acute) Former smoker (Acute) GERD (gastroesophageal reflux disease) (Acute) Hypercholesterolemia (Acute) Hypertension (Acute) Nephrolithiasis (Acute) Non Q wave myocardial infarction (Acute) 2002 Shortness of breath (Acute) per pt, uses inhaler in AM and resolved Type 2 diabetes mellitus (Acute) Medical History Pancreatic cancer stage 4; now with mets Hx of renal calculi Dyspnea reason for inhaler, uses every morning Angina pectoris chronic stable class I per cardio; follows closely with [facility] [place] Cardio Non Q wave myocardial infarction 2002; 'questionable per pt' CAD (coronary artery disease) CABG August 1999, LM and LAD stents August 2009, RCA and LAD stents September 2009 Aortic stenosis follows with Dr. Lunsford; mild-mod per 08/27/23 ECHO BPH (benign prostatic hyperplasia) GERD (gastroesophageal reflux disease) Hyperlipidemia Hypertension Type 2 diabetes mellitus Surgical History Hx of CABG 1999 > 4 vessels > [facility] > follows with Dr. Lunsford History of insertion of pancreatic stent (01/16/24) [facility] Hx of biopsy (12/2023) pancreas and liver History of left cataract surgery History of esophagogastroduodenoscopy (EGD) History of colonoscopy History of tooth extraction History of tonsillectomy H/O lithotripsy Hx of cardiac cath 2009 > 5 stents - [facility] (LM and LAD stents August 2009, RCA and LAD stents September 2009) Family History Father Myocardial infarction Other Diabetes Heart disease Social History Smoking Status: Unknown if ever smoked Tobacco Type: Cigarettes Second Hand Exposure: No; Do You Dip or Chew Tobacco: No; Hx Alcohol Use: Yes Alcohol type: hard liquor Hx Substance Use: No Preferred Language: Arabic Communication Ability: Effective Trading Assistant Required: No Beliefs That Will Affect Care: None marital status: Current Living Situation: Significant Other Current Living Situation Comment: house- no stairs Feels Safe at Home: Yes Assistive Devices: Glasses, Hearing Aid - Bilateral and Walker Allergies Allergies Allergy/AdvReac Type Severity Reaction Status Date / Time Iodinated Contrast Media Allergy Intermediate Rash Verified 03/20/24 13:05 levofloxacin Allergy Intermediate RASH Verified 03/20/24 13:05 lisinopril AdvReac Mild Cough Verified 03/20/24 13:05 Home Meds Home Medications Medication Instructions Recorded Confirmed multivitamin (Multiple Vitamins 1 tab PO QPM 12/02/18 04/25/24 tablet) nitroglycerin 0.4 mg sublingual 0.4 mg sublingual Q5M PRN Chest 01/06/19 04/25/24 tablet Pain #1 tab fluticasone propionate 50 1 spray intranasal QAM 03/16/20 04/25/24 mcg/actuation nasal spray,suspension pantoprazole 20 mg tablet,delayed 20 mg PO QAM 01/30/24 04/25/24 release iron,carbonyl 65 mg-vitamin C 125 1 tab PO Q OTHER DAY 02/07/24 04/25/24 mg tablet,delayed release (Vitron-C) isosorbide mononitrate 60 mg 120 mg PO QAM 02/07/24 04/25/24 tablet,extended release 24 hr lidocaine-prilocaine 2.5 %-2.5 % 1 applic topical UD 02/07/24 04/25/24 topical cream ondansetron HCl 8 mg tablet 8 mg PO Q8 PRN Nausea 02/07/24 04/25/24 prochlorperazine maleate 10 mg 10 mg PO Q6 PRN Nausea 02/07/24 04/25/24 tablet metformin 500 mg tablet,extended 1,000 mg PO AMPM 03/20/24 04/25/24 release 24 hr L.acidophilus-L.plantarum-B.animalis-B.longum 1 cap PO DAILYBB 04/01/24 04/25/24 2 billion cell capsule (Probiotic Acidophilus Beads) potassium chloride 10 mEq 10 meq PO QAM 04/01/24 04/25/24 capsule,extended release ranolazine 500 mg tablet,extended 500 mg PO AMHS 04/01/24 04/25/24 release,12 hr acetaminophen 500 mg tablet 1,000 mg PO Q6H PRN Pain 04/25/24 04/25/24 apixaban 5 mg tablet 5 mg PO AMHS 04/25/24 04/25/24 aspirin 81 mg chewable tablet 81 mg PO HS 04/25/24 04/25/24 (Children's Aspirin) bumetanide 0.5 mg tablet 0.5 mg PO QAM 04/25/24 04/25/24 cholecalciferol (vitamin D3) 25 25 mcg PO QPM 04/25/24 04/25/24 mcg (1,000 unit) capsule (Vitamin D3) diphenhydramine HCl 50 mg capsule 50 mg PO UD 04/25/24 04/25/24 (Banophen) magnesium oxide 400 mg (241.3 mg 400 mg PO AMHS 04/25/24 04/25/24 magnesium) tablet metoprolol tartrate 25 mg tablet 12.5 mg PO AMHS 04/25/24 04/25/24 nystatin 100,000 unit/gram topical 1 applic topical BID PRN FUNGAL 04/25/24 04/25/24 powder (Nystop) RASH prednisone 50 mg tablet 50 mg PO UD 04/25/24 04/25/24 tamsulosin 0.4 mg capsule 0.4 mg PO AMHS 04/25/24 04/25/24 Results & Data (ED) Vital Signs Vital Signs - 24 hr 04/25/24 18:00 04/25/24 18:13 04/25/24 18:28 Temperature 36.0 C L Temperature Source Oral Pulse Rate 117 H 114 H Pulse Rate [Left Forehead] Pulse Rate from SpO2 Sensor Pulse Rhythm Regular Pulse Strength Normal Respiratory Rate 28 H Respiratory Effort / Characteristics Labored Respiratory Depth Blood Pressure 92/56 L Blood Pressure [Right Arm] Blood Pressure Mean 68 Blood Pressure Mean [Right Arm] Blood Pressure Position Sitting Blood Pressure Position [Right Arm] Pulse Oximetry 60 L 85 L Oxygen Delivery Method Room Air Non-rebreather Oxygen Flow Rate 15 Sepsis Recent Fever Within 48 Hours No Sepsis New/Unexplained Change in Mental Status No Sepsis Action Taken by Nursing No Action Required 04/25/24 18:30 04/25/24 19:00 04/25/24 19:39 Temperature Temperature Source Pulse Rate 119 H 127 H Pulse Rate [Left Forehead] 118 H Pulse Rate from SpO2 Sensor 121 H Pulse Rhythm Pulse Strength Respiratory Rate 34 H 35 H 35 H Respiratory Effort / Characteristics Respiratory Depth Blood Pressure 90/61 L 91/60 L Blood Pressure [Right Arm] 87/54 L Blood Pressure Mean 70 70 Blood Pressure Mean [Right Arm] 65 Blood Pressure Position Blood Pressure Position [Right Arm] Sitting Pulse Oximetry 96 100 100 Oxygen Delivery Method BiPAP Oxymask Oxymask Oxygen Flow Rate 10 Sepsis Recent Fever Within 48 Hours Sepsis New/Unexplained Change in Mental Status Sepsis Action Taken by Nursing 04/25/24 19:53 04/25/24 19:54 04/25/24 20:30 Temperature Temperature Source Pulse Rate 123 H 125 H 125 H Pulse Rate [Left Forehead] Pulse Rate from SpO2 Sensor 124 H 129 H Pulse Rhythm Pulse Strength Respiratory Rate 35 H 31 H Respiratory Effort / Characteristics Respiratory Depth Blood Pressure 89/54 L 92/62 L Blood Pressure [Right Arm] Blood Pressure Mean 65 72 Blood Pressure Mean [Right Arm] Blood Pressure Position Blood Pressure Position [Right Arm] Pulse Oximetry 100 100 100 Oxygen Delivery Method Oxymask Oxymask Oxymask Oxygen Flow Rate 5 5 3 Sepsis Recent Fever Within 48 Hours Sepsis New/Unexplained Change in Mental Status Sepsis Action Taken by Nursing 04/25/24 20:51 04/25/24 21:00 04/25/24 21:25 Temperature Temperature Source Pulse Rate 124 H 124 H Pulse Rate [Left Forehead] Pulse Rate from SpO2 Sensor 125 H Pulse Rhythm Pulse Strength Respiratory Rate 33 H Respiratory Effort / Characteristics Respiratory Depth Normal Blood Pressure 84/66 L 107/70 Blood Pressure [Right Arm] Blood Pressure Mean 72 83 Blood Pressure Mean [Right Arm] Blood Pressure Position Blood Pressure Position [Right Arm] Pulse Oximetry 100 100 Oxygen Delivery Method Oxymask Oxymask Oxymask Oxygen Flow Rate 3 3 Sepsis Recent Fever Within 48 Hours Sepsis New/Unexplained Change in Mental Status Sepsis Action Taken by Nursing 04/25/24 21:30 04/25/24 21:45 Temperature Temperature Source Pulse Rate 126 H Pulse Rate [Left Forehead] 124 H Pulse Rate from SpO2 Sensor Pulse Rhythm Pulse Strength Respiratory Rate 39 H 32 H Respiratory Effort / Characteristics Respiratory Depth Blood Pressure 105/63 Blood Pressure [Right Arm] 86/69 L Blood Pressure Mean 69 Blood Pressure Mean [Right Arm] 74 Blood Pressure Position Blood Pressure Position [Right Arm] Pulse Oximetry 100 100 Oxygen Delivery Method Oxymask Oxymask Oxygen Flow Rate 3 3 Sepsis Recent Fever Within 48 Hours Sepsis New/Unexplained Change in Mental Status Sepsis Action Taken by Nursing Laboratory Data 04/25/24 18:06 04/25/24 18:06 Lab Results 04/25/24 04/25/24 04/25/24 Range/Units 18:06 18:09 18:11 WBC 1.83 L (4.8-10.8) K/ul RBC 3.03 L (4.70-6.10) M/uL Hgb 8.9 L (14.0-18.0) g/dl POC Hgb 9.2 L (14.0-18.0) g/dl Hct 27.1 L (42.0-52.0) % POC Hct 27 L (42-52) % MCV 89.4 (80.0-100.0) fL MCH 29.4 (25.0-34.0) pg MCHC 32.8 (32.0-36.0) g/dL RDW Std Deviation 57.6 H (36.4-46.3) fL RDW Coeff of Loli 17.6 H (11.5-14.5) % Plt Count 256 (130-400) K/uL MPV 9.5 (9.4-12.4) fL Immature Gran % (Auto) 0.0 % Neut % (Auto) 61.7 % Lymph % (Auto) 30.1 % Salem % (Auto) 4.4 % Eos % (Auto) 3.3 % Baso % (Auto) 0.5 % Neut # (Auto) 1.13 L (1.40-6.50) K/uL Lymph # (Auto) 0.55 L (1.20-3.40) K/uL [place] # (Auto) 0.08 L (0.11-0.59) K/uL Eos # (Auto) 0.06 (0.00-0.50) K/uL Baso # (Auto) 0.01 (0.00-0.20) K/uL Immature Gran # (Auto) 0.00 L (0.01-0.20) K/uL Toxic Vacuolation 2+ PT (9.0-12.0) Seconds INR (0.9-1.1) VBG pH 7.37 (7.36-7.41) VBG pCO2 38 (38-50) mmHg VBG pO2 36 mmHg VBG HCO3 22 mmol/L VBG O2 Saturation < 60.0 % VBG Base Excess -2.9 mEq/L POC Sodium 131 L (135-144) mmol/L Sodium 130 L (136-145) mmol/L POC Potassium 4.3 (3.3-5.0) mmol/L Potassium 4.3 (3.5-5.1) mmol/L POC Chloride 101 (101-112) mmol/L Chloride 100 (98-107) mmol/L Carbon Dioxide 21 (21-32) mmol/L POC Total CO2 19 L (24-31) mmol/L Anion Gap 9 (3-11) POC Anion Gap 16.0 (16-25) mmol/L POC BUN 21 H (7-18) mg/dl BUN 23 (6-23) mg/dl Creatinine 0.91 (0.6-1.4) mg/dl POC Creatinine 0.9 (0.6-1.3) mg/dl Est Cr Clr Drug Dosing 62.1 ml/min eGFR 85.73 BUN/Creatinine Ratio 25.3 H (10-20) Glucose 118 H (70-99(Fasting)) mg/dl POC Glucose (other) 117 H (70-99) mg/dl Lactate 4.3 H* (0.4-2.0) mmol/L Calcium 8.3 L (8.6-10.3) mg/dl POC Ioniz Calcium Christie 1.19 (1.12-1.32) mmol/l Magnesium 1.6 L (1.7-2.4) mg/dl Total Bilirubin 1.4 H (0.2-1.0) mg/dl Direct Bilirubin 0.6 H (0-0.2) mg/dl AST 48 H (13-39) U/L ALT 36 (7-52) U/L Alkaline Phosphatase 345 H (34-104) U/L Troponin I High Sens 20.7 H (0-20) pg/ml Total Protein 5.7 L (6.0-8.3) gm/dl Albumin 2.3 L (3.4-5.0) gm/dl Procalcitonin 0.66 H (0-0.5) ng/ml Adenovirus (PCR) Not Detected (NotDetected) B. pertussis DNA (PCR) Not Detected (NotDetected) B.parapertussis DNA PCR Not Detected (NotDetected) C. pneumoniae DNA (PCR) Not Detected (NotDetected) Coronavirus OC43 (PCR) Not Detected (NotDetected) Coronavirus HKU1 (PCR) Not Detected (NotDetected) Coronavirus 229E (PCR) Not Detected (NotDetected) SARS-CoV-2 (PCR) Not Detected (NotDetected) Coronavirus NL63 (PCR) Not Detected (NotDetected) Human Metapneumovir PCR Not Detected (NotDetected) Influenza Type A (PCR) Not Detected (NotDetected) Influenza Type B (PCR) Not Detected (NotDetected) M. pneumoniae (PCR) Not Detected (NotDetected) Parainfluenza 1 (PCR) Not Detected (NotDetected) Parainfluenza 2 (PCR) Not Detected (NotDetected) Parainfluenza 3 (PCR) Not Detected (NotDetected) Parainfluenza 4 (PCR) Not Detected (NotDetected) RSV (PCR) Not Detected (NotDetected) Entero/Rhino (PCR) Not Detected (NotDetected) 04/25/24 04/25/24 Range/Units 18:16 20:38 WBC (4.8-10.8) K/ul RBC (4.70-6.10) M/uL Hgb (14.0-18.0) g/dl POC Hgb (14.0-18.0) g/dl Hct (42.0-52.0) % POC Hct (42-52) % MCV (80.0-100.0) fL MCH (25.0-34.0) pg MCHC (32.0-36.0) g/dL RDW Std Deviation (36.4-46.3) fL RDW Coeff of Loli (11.5-14.5) % Plt Count (130-400) K/uL MPV (9.4-12.4) fL Immature Gran % (Auto) % Neut % (Auto) % Lymph % (Auto) % Salem % (Auto) % Eos % (Auto) % Baso % (Auto) % Neut # (Auto) (1.40-6.50) K/uL Lymph # (Auto) (1.20-3.40) K/uL Salem # (Auto) (0.11-0.59) K/uL Eos # (Auto) (0.00-0.50) K/uL Baso # (Auto) (0.00-0.20) K/uL Immature Gran # (Auto) (0.01-0.20) K/uL Toxic Vacuolation PT 16.6 H (9.0-12.0) Seconds INR 1.6 H (0.9-1.1) VBG pH (7.36-7.41) VBG pCO2 (38-50) mmHg VBG pO2 mmHg VBG HCO3 mmol/L VBG O2 Saturation % VBG Base Excess mEq/L POC Sodium (135-144) mmol/L Sodium (136-145) mmol/L POC Potassium (3.3-5.0) mmol/L Potassium (3.5-5.1) mmol/L POC Chloride (101-112) mmol/L Chloride (98-107) mmol/L Carbon Dioxide (21-32) mmol/L POC Total CO2 (24-31) mmol/L Anion Gap (3-11) POC Anion Gap (16-25) mmol/L POC BUN (7-18) mg/dl BUN (6-23) mg/dl Creatinine (0.6-1.4) mg/dl POC Creatinine (0.6-1.3) mg/dl Est Cr Clr Drug Dosing ml/min eGFR BUN/Creatinine Ratio (10-20) Glucose (70-99(Fasting)) mg/dl POC Glucose (other) (70-99) mg/dl Lactate 2.9 H* (0.4-2.0) mmol/L Calcium (8.6-10.3) mg/dl POC Ioniz Calcium Christie (1.12-1.32) mmol/l Magnesium (1.7-2.4) mg/dl Total Bilirubin (0.2-1.0) mg/dl Direct Bilirubin (0-0.2) mg/dl AST (13-39) U/L ALT (7-52) U/L Alkaline Phosphatase (34-104) U/L Troponin I High Sens 20.0 (0-20) pg/ml Total Protein (6.0-8.3) gm/dl Albumin (3.4-5.0) gm/dl Procalcitonin (0-0.5) ng/ml Adenovirus (PCR) (NotDetected) B. pertussis DNA (PCR) (NotDetected) B.parapertussis DNA PCR (NotDetected) C. pneumoniae DNA (PCR) (NotDetected) Coronavirus OC43 (PCR) (NotDetected) Coronavirus HKU1 (PCR) (NotDetected) Coronavirus 229E (PCR) (NotDetected) SARS-CoV-2 (PCR) (NotDetected) Coronavirus NL63 (PCR) (NotDetected) Human Metapneumovir PCR (NotDetected) Influenza Type A (PCR) (NotDetected) Influenza Type B (PCR) (NotDetected) M. pneumoniae (PCR) (NotDetected) Parainfluenza 1 (PCR) (NotDetected) Parainfluenza 2 (PCR) (NotDetected) Parainfluenza 3 (PCR) (NotDetected) Parainfluenza 4 (PCR) (NotDetected) RSV (PCR) (NotDetected) Entero/Rhino (PCR) (NotDetected) Administered Medications Discontinued Medications Diphenhydramine HCl (Diphenhydramine 50 Mg/Ml Vial) 25 mg IV NOW STA Stop: 04/25/24 19:01 Last Admin: 04/25/24 19:04 Dose: 25 mg Documented By: NIRAJ Sodium Chloride (Nss) 1,000 mls @ 999 mls/hr IV .Q1H1M ALESSANDRO Stop: 04/25/24 20:00 Last Infusion: 04/25/24 20:43 Dose: Infused Documented By: Admin: 04/25/24 18:33 Dose: 999 mls/hr Documented By: Infusion: 04/25/24 18:33 Dose: Infused Documented By: Admin: 04/25/24 18:10 Dose: 999 mls/hr Documented By: ETHEL Ampicillin Sodium/Sulbactam Sodium (Unasyn) 3,000 mg in 100 mls @ 200 mls/hr IV NOW STA Stop: 04/25/24 21:19 Last Infusion: 04/25/24 21:57 Dose: Infused Documented By: Admin: 04/25/24 21:28 Dose: 200 mls/hr Documented By: NIRAJ Sodium Chloride (Nss) 1,000 mls @ 999 mls/hr IV .Q1H1M ONE Stop: 04/25/24 22:03 Last Admin: 04/25/24 21:15 Dose: 999 mls/hr Documented By: NIRAJ Ioversol (Optiray 320 100ml) 90 ml IV ONCE ONE Stop: 04/25/24 19:34 Last Admin: 04/25/24 19:33 Dose: 90 ml Documented By: NASRIN Methylprednisolone (Methylprednisolone 125 Mg/2 Ml Vial) 80 mg IV NOW STA Stop: 04/25/24 19:02 Last Admin: 04/25/24 19:06 Dose: 80 mg Documented By: NIRAJ Metoclopramide HCl (Metoclopramide Hcl Inj 5 Mg/Ml 2 Ml Vial) Confirm Administered Dose 10 mg .ROUTE .STK-MED ONE Stop: 04/25/24 21:19 Last Admin: 04/25/24 21:23 Dose: Not Given Documented By: NIRAJ Metoclopramide HCl (Metoclopramide Hcl Inj 5 Mg/Ml 2 Ml Vial) 10 mg IV NOW STA Stop: 04/25/24 21:20 Last Admin: 04/25/24 21:23 Dose: 10 mg Documented By: NIRAJ Ondansetron HCl (Ondansetron Inj 2 Mg/Ml 2 Ml Vial) 4 mg IV NOW STA Stop: 04/25/24 17:57 Last Admin: 04/25/24 18:10 Dose: 4 mg Documented By: ETHEL Imaging Data Radiologist's Impression: Chest X-Ray 04/25/24 17:48 EXAM: Portable AP chest radiograph TECHNIQUE: AP portable radiograph of the chest was obtained. INDICATION: Shortness of breath. Sepsis Comparison: Chest radiograph April 01, 2024. FINDINGS: LINES and TUBES: Right-sided Port-A-Cath with tip again projecting over the superior cavoatrial junction. CARDIOVASCULAR: Cardiac silhouette is stably enlarged in size. Mediastinal clips. LUNGS/PLEURA: Partial interval improvement of the streaky right upper lobe airspace densities. Slight interval increase in the left greater than right bibasilar densities. No significant pleural fluid. No discernible pneumothorax. OSSEOUS/OTHER: No displaced acute osseous process identified. Median sternotomy wires, several which are fractured. IMPRESSION: Compared to previous radiograph from April 01, 2024, there has been a mild interval improvement in the right upper lobe streaky opacities. Residual airspace disease suggested in this area. Slight interval increase in the left greater than right bibasilar densities could represent atelectasis or mild airspace disease. Electronically signed by Art Daniels 04-25-2024 7:[address] 04/25/24 17:50 Exam(s): CT HEAD Without Contrast EXAM: CT Head Without Intravenous Contrast CLINICAL HISTORY: Reason for exam: fall. TECHNIQUE: Axial computed tomography images of the head/brain without intravenous contrast. CTDI is 37.69 mGy and DLP is 624.41 mGy-cm. Automated exposure control was utilized for the study. A dose lowering technique was utilized adhering to the principles of ALARA. COMPARISON: 02/25/24 FINDINGS: Brain: Age-related parenchymal volume loss. Mild chronic small vessel ischemic change. Pretty-white matter differentiation maintained. No hemorrhage, mass effect, parenchymal edema, or midline shift. Ventricles: Unremarkable. No hydrocephalus. Bones/joints: Unremarkable. No acute fracture. Soft tissues: Unremarkable. Vasculature: Intracranial atherosclerosis. Sinuses: Unremarkable as visualized. Mastoid air cells: Unremarkable as visualized. No mastoid effusion. Orbits: Lens replacement. IMPRESSION: No acute intracranial process. Electronically signed by: Mk Phillip M.D. 04/25/24 20:42 PM Abdomen/Pelvis CT 04/25/24 19:00 Exam(s): CT ABDOMEN + PELVIS With Contrast IV Amt: 90ml optiray 320 EXAM: CT Abdomen and Pelvis With Intravenous Contrast CLINICAL HISTORY: Reason for exam: N/V. TECHNIQUE: Axial computed tomography images of the abdomen and pelvis with intravenous contrast. CTDI is 23.96 mGy and DLP is 1324.7 mGy-cm. Automated exposure control was utilized for the study. A dose lowering technique was utilized adhering to the principles of ALARA. CONTRAST: Patient received 90ml optiray 320 of IV contrast COMPARISON: 04/01/24 FINDINGS: Lung bases: Numerous subpleural pulmonary micronodules at the lung bases. Some increased airspace opacity at the right lung base. Pleural space: Trace bilateral pleural effusions. Heart: Previous sternotomy and likely CABG. Coronary artery atherosclerosis. No cardiomegaly. Partially imaged central venous catheter extending to the cavoatrial junction. Mediastinum: Fluid-filled distal esophagus, new from prior. ABDOMEN: Liver: Extensive hepatic metastatic disease, similar to prior. Gallbladder and bile ducts: Metallic common bile duct stent in place. Associated pneumobilia. Similar gallbladder distention with layering sludge. No calcified stones. Pancreas: Suggestion of ill-defined pancreatic head mass measuring 2.7 cm. No ductal dilation. Spleen: Unremarkable. No splenomegaly. Adrenals: Unremarkable. No mass. Kidneys and ureters: Unremarkable. No solid mass. No hydronephrosis. Stomach and bowel: No mechanical bowel obstruction. Diverticulosis without diverticulitis. Wall thickening involving the duodenum and multiple segments of small bowel appears increased from prior. PELVIS: Appendix: Normal appendix. Bladder: Unremarkable. No mass. Reproductive: Unremarkable as visualized. ABDOMEN and PELVIS: Intraperitoneal space: Mild-moderate ascites, increased from prior. No free air. Bones/joints: Mild spinal megaly. No acute fracture or dislocation. Soft tissues: Bilateral inguinal hernias containing fat and ascites, similar to prior. Mesenteric edema. Vasculature: Atherosclerosis. 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 Lymph nodes: Unremarkable. No enlarged lymph nodes. IMPRESSION: 1. Fluid-filled esophagus related to vomiting. Some increased airspace opacity at the right lung base. A small amount of aspiration is not excluded. 2. Wall thickening involving the duodenum and multiple segments of small bowel appears increased from prior. Correlate for enteritis. 3. Extensive hepatic metastatic disease, similar to prior. Suggestion of ill-defined pancreatic head mass measuring 2.7 cm. 4. Mild-moderate ascites, increased from prior. 5. 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 Electronically signed by: Mk Phillip M.D. 04/25/24 20:48 PM Discharge Plan Visit Data Chief Complaint: Fall Stated Complaint: SYNCOPE, TACHYCARDIA, HYPOTENSION ED Provider: Bob Green Discharge Problem: Hypoxia Forms Stand Alone Forms: My [facility] Prescriptions Prescriptions: No Action fluticasone propionate 50 mcg/actuation spray,suspension 1 spray intranasal QAM multivitamin [Multiple Vitamins] tablet 1 tab PO QPM nitroglycerin 0.4 mg tablet, sublingual 0.4 mg SL Q5M PRN (Reason: Chest Pain) Qty: 1 Rx Instructions: 1 TABLET UNDER TONGUE IF NEEDED FOR CHEST PAIN. MAY REPEAT 3 TIMES. IF CHEST PAIN CONTINUES CALL 911 metformin 500 mg tablet extended release 24 hr 1,000 mg PO AMPM Rx Instructions: TAKE WITH MEALS aspirin [Children's Aspirin] 81 mg Tablet,Chewable 81 mg PO HS acetaminophen 500 mg Tablet 1,000 mg PO Q6H MDD 3G PRN (Reason: Pain) bumetanide 0.5 mg tablet 0.5 mg PO QAM apixaban 5 mg Tablet 5 mg PO AMHS magnesium oxide 400 mg (241.3 mg magnesium) tablet 400 mg PO AMHS tamsulosin 0.4 mg capsule 0.4 mg PO AMHS cholecalciferol (vitamin D3) [Vitamin D3] 25 mcg (1,000 unit) Capsule 25 mcg PO QPM metoprolol tartrate 25 mg tablet 12.5 mg PO AMHS diphenhydramine HCl [Banophen] 50 mg capsule 50 mg PO UD Rx Instructions: TAKE 1 [address]SULE [address] APPOINTMENT prednisone 50 mg tablet 50 mg PO UD Rx Instructions: TAKE 1 TABLET 13 HOURS,7 HOURS,AND [address] APPOINTMENT nystatin [Nystop] 100,000 unit/gram powder 1 applic TOPICAL BID PRN (Reason: FUNGAL RASH) pantoprazole 20 mg Tablet,Delayed Release (Dr/Ec) 20 mg PO QAM ondansetron HCl 8 mg tablet 8 mg PO Q8 PRN (Reason: Nausea) prochlorperazine maleate 10 mg tablet 10 mg PO Q6 PRN (Reason: Nausea) lidocaine-prilocaine 2.5-2.5 % cream 1 applic topical UD Rx Instructions: APPLY TOPICALLY TO MEDIPORT AND COVER 1 HOUR PRIOR TO ACCESSING isosorbide mononitrate 60 mg tablet extended release 24 hr 120 mg PO QAM Vitron-C 65 mg iron- 125 mg Tablet,Delayed Release (Dr/Ec) 1 tab PO Q OTHER DAY potassium chloride 10 mEq capsule, extended release 10 meq PO QAM ranolazine 500 mg tablet extended release 12 hr 500 mg PO AMHS Probiotic Acidophilus Beads 2 billion cell Capsule 1 cap PO DAILYBB Referrals Referrals: Pedro Luis Bowens, [Primary Care Provider] -
--- OUTSIDE RECORDS SUMMARY | 2024-04-25 17:54 | External Medical Summary ---
Author Name Unknown Address Unknown Organization K01:LABORATORY [facility] – [place] - [address] [place] [address] [place] [address] Laboratory Report Ordering Provider Test Date Status JUJU KYLE 04/21/2024 11:56:12 Final Observation Date Value Abnormality Reference (Units ) Status WBC, Total 04/21/2024 11:56:12 6.95 4.00-10.80 (K/uL) Final RBC 04/21/2024 11:56:12 2.96 4.50-5.25 (M/uL) Final Hemoglobin 04/21/2024 11:56:12 9.0 Below low normal 14.0-16.8 (g/dL) Final HCT 04/21/2024 11:56:12 28.1 Below low normal 40.0-48.4 (%) Final MCV 04/21/2024 11:56:12 94.9 82.0-99.5 (fL) Final MCH 04/21/2024 11:56:12 30.4 27.0-34.0 (pg) Final MCHC 04/21/2024 11:56:12 32.0 32.0-36.0 (g/dL) Final RDW 04/21/2024 11:56:12 19.5 11.5-15.5 (%) Final Platelets 04/21/2024 11:56:12 252 140-400 (K/uL) Final MPV 04/21/2024 11:56:12 10.7 6.6-11.1 (fL) Final Nucleated erythrocytes/100 leukocytes [Ratio] in Blood by Automated count 04/21/2024 11:56:12 0 <=0 (/100 WBCs) Final Performing Location LAB[facility]ORY [facility] – [place], [place] - [address] [place] [address]
--- OUTSIDE RECORDS SUMMARY | 2024-04-25 17:54 | External Medical Summary | Summary of Care ---
Author Name Unknown Organization [facility] Address [address] [place] [address] Phone [phone] Care Team Providers Care Poultry Scalder Name Role Phone Pedro Luis Bowens DO Primary Care Provider [phone] Encounter Details Date Type Department Care Team (Late st Contact Info) Description 04/20/2024 Population Health External Data Unspecified Department Allergies Active Allergy Reactions Criticality Noted Date Comments Iodinated Contrast Media Rash 08/29/2009 Pt got a rash after his cath on 08/23/09 Levofloxacin 11/03/2009 Nausea jittery Lisinopril 10/01/2013 Cough Rash documented as of this encounter (statuses as of 04/20/2024) Medications oxygen IN GASIndications: SOB (shortness of breath) Administer 2 L/min(Oxygen) into nostril at bedtime. And with naps or if needed for shortness of breath 1 Each 5 Active Acetaminophen 500 MG Oral Tablet (Tylenol) Take 2 Tablets by mouth every 6 hours as needed for breakthrough pain (up to 3000 mg daily (6 tablets)). 30 Tablet 04/17/2024 12:21 PM EST 5 Active Aspirin 81 MG Oral Tablet Chewable Chew & swallow 1 tablet by mouth every night at bedtime. 100 Tablet 3 04/17/2024 12:21 PM EST 5 Active Magnesium Oxide 400 MG Oral Tablet Take 1 Tablet by mouth two times per day (morning & before bedtime). 30 Tablet 04/17/2024 12:21 PM EST 5 Active Isosorbide Mononitrate ER 60 MG Oral Tablet Extended Release 24 Hour (Imdur)Indicati ons:Old myocardial infarction Taking 2 tablets by mouth every morning 60 Tablet 04/17/2024 12:21 PM EST 5 Active Nitroglycerin 0.4 MG Sublingual Tablet Sublingual (Nitrostat) Place 1 tablet under tongue as needed for chest pain. May repeat for 3 total tablets within 15 minutes. 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 200 Tablet 3 04/17/2024 12:21 PM EST 5 Active Apixaban 5 MG Oral Tablet (Eliquis) Take 1 Tablet by mouth in the morning and 1 Tablet before bedtime. 60 Tablet 04/17/2024 12:21 PM EST 5 Active metFORMIN HCl ER 500 MG Oral Tablet Extended Release 24 Hour (Glucophage XR) Take 2 Tablets by mouth 2 times a day (with morning and evening meals). 360 Tablet 3 04/17/2024 12:21 PM EST 5 Active Bacid Oral Capsule Take 1 Capsule by mouth daily before breakfast. 30 Capsule 04/17/2024 12:21 PM EST 5 Active Ondansetron HCl 8 MG Oral Tablet (Zofran)Indicat ions: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) Take 1 Tablet by mouth every 8 hours as needed for Nausea. 30 Tablet 3 04/17/2024 12:21 PM EST 5 Active diphenhydrAMINE HCl 25 MG Oral Capsule (Benadryl)Indic ations:Metastas is from pancreatic cancer (HCC),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) Take 2 capsules by mouth [address] appt 2 Capsule 04/17/2024 12:21 PM EST 5 Active Prochlorperazin e Maleate 10 MG Oral Tablet (Compazine)Emily cations:Metasta sis from pancreatic cancer (HCC) Take 1 Tablet by mouth every 6 hours as needed for Nausea. 30 Tablet 3 04/17/2024 12:21 PM EST 5 Active Metoprolol Tartrate 25 MG Oral Tablet (Lopressor) Take one-half tablet by mouth two times per day (morning & before bedtime). 30 Tablet 04/17/2024 12:21 PM EST 5 Active predniSONE 50 MG Oral Tablet (Deltasone)Emily cations:Metasta sis from pancreatic cancer (HCC),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) Take 1 tablet by mouth at 13 hours, 7 hours, and [address] appt 3 Tablet 04/17/2024 12:21 PM EST 5 Active Lidocaine-Prilo chester 2.5-2.5 % External Cream (Emla)Indicatio ns: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) APPLY TO SKIN OVER MEDIPORT & COVER 1HR PRIOR TO ACCESSING. 30 g 1 04/17/2024 12:21 PM EST 5 Active Nystatin 120151 UNIT/GM External Powder (Nystop) Apply topically to affected area 2 times a day as needed (fungal rash). Apply to groin area 15 g 04/17/2024 12:21 PM EST 5 Active Bumetanide 0.5 MG Oral Tablet (Bumex) Take 1 Tablet by mouth every morning. 30 Tablet 04/17/2024 12:21 PM EST 5 Active Magic Swizzle (Lidocaine-Kimberlee dryl-Maalox) oral solutionIndicat ions:Oral pain Swish and spit 15 mL by mouth three times per day (morning, noon, & before bedtime). 300 mL 04/17/2024 12:21 PM EST 5 Active Tamsulosin HCl 0.4 MG Oral Capsule (Flomax) Take 1 Capsule by mouth two times per day (morning & before bedtime). 200 Capsule 2 04/17/2024 12:21 PM EST 5 Active Iron-Vitamin C 65-125 MG Oral Tablet (Vitron C) Take 1 Tablet by mouth every other day. 15 Tablet 04/17/2024 12:21 PM EST Active OneTouch Ultra 2 w/Device KitIndications: Type [...] 4 times daily. DX: E11.9 1 Kit 04/17/2024 12:21 PM EST Active Potassium Chloride ER 10 MEQ Oral Tablet Extended ReleaseIndicati ons:Bilateral leg edema Take 1 Tablet by mouth every morning. 30 Tablet 5 04/17/2024 12:21 PM EST Active Tab-A-Lilo Oral Tablet Take 1 Tablet by mouth every evening. 30 Tablet 04/17/2024 12:21 PM EST Active Fluticasone Propionate 50 MCG/ACT Nasal Suspension (Flonase)Indica tions:Chronic maxillary sinusitis Administer 1 [employer] into nostril in the morning. 48 g 3 04/17/2024 12:21 PM EST Active Pantoprazole Sodium 20 MG Oral Tablet Delayed Release (Protonix)Indic ations:Gastroes ophageal reflux disease without esophagitis Take 1 Tablet by mouth every morning. 100 Tablet 3 04/17/2024 12:21 PM EST Active Vitamin D3 25 MCG (1000 UT) Oral Tablet (Vitamin D3) Take 1 tablet by mouth every evening. 30 Tablet 04/17/2024 12:21 PM EST Active Hospital, Clinic, or Other Facility Administered Medication Ordered Dose Route Frequency Start Date End Date Status Vitamin B-12 (Cyanocobalamin) inj 1,000 mcgIndications:Vitamin B 12 deficiency 1000 mcg IM [id number] 06/15/2024 12/26/2026 Active documented as of this encounter (statuses as of 04/20/2024) Active Problems Problem Noted Date Diagnosed Date Hyponatremia 04/04/2024 Goals of care, counseling/discussion 04/02/2024 Palliative care encounter 04/02/2024 Pancytopenia 04/01/2024 Secondary malignant neoplasm of liver and intrahepatic bile duct 02/17/2024 Malignant neoplasm of head of pancreas Metastasis from pancreatic cancer 01/28/2024 Encounter for antineoplastic chemotherapy 2023 Atherosclerosis of craig ar teries of extremities with rest pain, bilateral legs 11/08/2023 Pulmonary hypertension, unspecified 07/17/2022 B12 deficiency 03/22/2022 Moderate aortic stenosis 11/28/2021 Occupational exposure to noise 09/27/2020 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 [employer] Other*[id number] 09/23/2009 05/01/2016 Overview (09/23/2009): Study Titile: Gen[employer] Markers for Patients with Cardiovascular Disease Project #[id number] PI: Estela Sandoval MD Please call [phone] with study related questions Dyslipidemia, goal LDL below 70 08/30/2009 02/26/2013 HTN, goal below 130/80 08/30/200911/14 Overview: Per HTN Protocol #27. History of drug allergy 08/29/200906/23 Dyslipidemia, goal LDL below 70 08/23/2009 02/26/2013 ACEI/ARB contraindicated 09/2013 documented as of this encounter (statuses as of 04/20/2024) Immunizations Name Administration Dates Next Due COVID-19 [...] in 1984. Alcohol Use Standard Drinks/Week Comments Not Currently 0 (1 standard drink = 0.6 oz [...] have concerns for your saf ety? No 04/02/2024 Do you have concerns for you r family's safety? (Household - for ages 0-17 years) Not on file 04/02/2024 Utilities Answer Date Recorded Do you have trouble paying y our heating, water, or electric bill? No 04/02/2024 Is your family able to pay t he heat, water, or electric bill? (Household - for ages 0-17 years) Not on file 04/02/2024 Does your family have access to good internet? (Household - for ages 0-17 years) Not on file 04/02/2024 Employment Status Answer Date Recorded Are you [...] 18 years and over) Not on file 04/02/2024 Does your family have a hard time getting a ride to doctors visits? (Household - for ages 0-17 years) Not on file 04/02/2024 Has lack of transportation k ept you from medical appointments, meetings, work, or from getting things needed for daily living? Check all that apply. No 04/02/2024 Do you (or your family) have trouble finding or paying for a ride (transportation)? (Household - for ages 0-17 years) Not on file 04/02/2024 Housing Stability Answer Date Recorded Do you currently live in a s helter or have no steady place to sleep at night? No 04/02/2024 Do you think you are at risk of becoming homeless? (Adult - for ages 18 years and over) Not on file 04/02/2024 Does your family worry about paying for your home or becoming homeless? (Household - for ages 0-17 years) Not on file 0 04/02/2024 Are you homeless or worried that you might be in the future? No 04/02/2024 Are you (or your family) jazmine eless or worried that you might be in the future? (Household - for ages 0-17 years) Not on file Food Insecurity Answer Date Recorded Do you need food for this week? No 04/02/2024 Are you able to get enough f ood for your family? (Household - for ages 0-17 years) Not on file 04/02/2024 Does your family need food t his week? (Household - for ages 0-17 years) Not on file 04/02/2024 Do you always have enough fo od for your family? (Household - for ages 0-17 years) Not on file 04/02/2024 Sex and Gender Information Value Date Recorded Sex Assigned at Male 03/12/2019 9:54 AM EST Legal Sex Male 5:54 AM EST Gender Identity Male 03/12/2019 9:54 AM EST Sexual Orientation Straight 03/12/2019 9: 54 AM EST documented as of this encounter Functional Status * Are you deaf or do you have serious difficulty hearing? Answer Date of Assessment Author Yes 04/02/2024 1:30 AM Zuri Walters RN * Are you blind or do you have serious difficulty seeing, even when wearing glasses? Answer Date of Assessment Author No 04/02/2024 1:30 AM Zuri Walters RN * Do you have serious difficulty walking or climbing stairs? (5 years old or older) Answer Date of Assessment Author No 04/02/2024 1:30 AM Zuri Walters RN * Do you have difficulty dressing or bathing? (5 years old or older) Answer Date of Assessment Author No 04/02/2024 1:30 AM Zuri Walters RN * Because of a physical, mental, or emotional condition, do you have difficulty doing errands alone such as visiting a doctors office or shopping? (15 years old or older) Answer Date of Assessment Author No 04/02/2024 1:30 AM Zuri Walters RN documented as of this encounter Mental Status * Because of a physical, mental, or emotional condition, do you have serious difficulty concentrating, remembering, or making decisions? (5 years old or older) Answer Entry Date Author No 04/02/2024 1:30 AM Zuri Walters RN documented in this encounter Plan of Treatment Upcoming Encounters Date Type Department Care Team (Late st Contact Info) Description 04/21/2024 10:40 AM EST Office Visit Family Practice [address] [place] [phone] Pedro Luis Bowens, [address] [facility] [place] [address] 04/28/2024 9:30 AM EST Office Visit Hematology/Oncology [facility] [address] [place] [phone] Marimar Del Castillo MD [address] [place] [address] 07/08/2024 2:00 PM EDT Office Visit Infectious Disease [facility] [address] [place] [address] DO [address], [place] [id number] Scheduled Procedures Name Priority Associated Diagnoses Date/Ti me ENDOSCOPIC RETROGRADE CHOLANGIOPANCREATOGRAPHY (ERCP) DIAGNOSTIC Recall Cholangitis Health Maintenance Due Date Last Done Comments Adult Wellness Visit 12/15/2021 12/15/2020 Depression Screening 03/02/2025 03/02/2024 Zoster Vaccines Completed 09/17/2019, 03/19/2019, 0 12/20/2011 Albumin/Creatinine Ratio Discontinued 024, 07/17/2022, 07/05/2021, Additional history exists Diabetic Foot Exam Discontinued 07/12/2023, 0 07/17/2022, 07/11/2021, Additional history exists Diabetic Eye Exam Discontinued 07/22/2023, , 07/12/2022, Additional history exists COVID-19 Vaccine Discontinued 12/26/2023, 03/2022, 03/01/2022, Additional history exists Influenza Vaccine (FLU shot) Completed 05/2023, 11/29/2022, 11/28/2021, Additional history exists documented as of this encounter Medical Devices Implanted Type Area Line Service Person Device Identifier Shelf Expiration Date Model / Serial / Lot Stent Bili Duodenal [id number] - [id number] Implanted:Qty : 1 on 01/16/2024 by Jose E Bai MD at ENDOSCOPY [facility] N/A: Stomach [employer] 12/02/2025 [id number] / / [id number] Stent Viabil Biliary [id number] - [id number] Implanted:Qty : 1 on 04/02/2024 by Mars Anna DO [place] [facility] [place] [id number] 01/15/2027 [id number] / [id number] / [id number] documented as of this encounter Advance Directives * No Code (Latest Code Status on File) Date Activated Date Inactivated Comments 04/02/2024 1:48 AM 04/17/2024 4:48 PM This order re flects the patients wishes and were consensually agreed upon. Question Answer Comments Discussion of Advance Directives occurred with: Patient * Full Code Date Activated Date Inactivated Comments 04/02/2024 1:29 AM 04/02/2024 1:48 AM This order ref lects the patients wishes and were consensually agreed upon. Question Answer Comments Discussion of Advance Direct mia occurred with: Not Discussed due to patient's condition * Full Code Date Activated Date Inactivated Comments 09/23/2009 4:06 [...] Power of Attor ila? No Care Teams Poultry Scalder Relationship Specialty Start Date End Date Pedro Luis Bowens DO [address] [place] [address] PCP - General Internal Medicine 09/09/23 documented as of this encounter
--- OUTSIDE RECORDS SUMMARY | 2024-04-25 17:54 | External Medical Summary ---
Author Name Unknown Address Unknown Organization K01:[facility] – [place] [address] [facility] [address] Laboratory Report Ordering Provider Test Date Status JUJU KYLE 04/21/2024 11:56:12 Final Observation Date Value Abnormality Reference (Units ) Status SYNC LEUKOCYTES IN BLOOD BY AUTOMATED COUNT 04/21/2024 11:56:12 6.95 4.00-10.80 (K/uL) Final Segs 04/21/2024 11:56:12 72.8 40.0-75.0 (%) Final Lymphs % 04/21/2024 11:56:12 15.0 Below low normal 18.0-42.0 (%) Final Monos 04/21/2024 11:56:12 9.6 1.0-11.0 (%) Final Eosinophils 04/21/2024 11:56:12 1.7 0.0-6.0 (%) Final Basos 04/21/2024 11:56:12 0.6 0.0-2.0 (%) Final Immature Granulocyte, Percent 04/21/2024 11:56:12 0.3 0.0-2.0 (%) Final Absolute Segs 04/21/2024 11:56:12 5.06 1.80-7.70 (K/uL) Final Lymphs, absolute 04/21/2024 11:56:12 1.04 1.00-4.80 (K/ul) Final Monos, Abs 04/21/2024 11:56:12 0.67 0.00-1.10 (K/uL) Final Eos, Abs 04/21/2024 11:56:12 0.12 0.00-0.70 (K/uL) Final Basos, Abs 04/21/2024 11:56:12 0.04 0.00-0.20 (K/uL) Final Immature Granulocytes, Number 04/21/2024 11:56:12 0.02 0.00-0.20 (K/uL) Final Performing Location [facility]ORY [facility] – [place] - [address] [facility] [address]
--- OUTSIDE RECORDS SUMMARY | 2024-04-25 17:54 | External Medical Summary | Summary of Care ---
Author Name Unknown Organization [facility] Address [address] [place] [address] Phone [phone] Care Team Providers Care Correspondence Coordinator Name Role Phone Pedro Luis Bowens DO Primary Care Provider [phone] Reason for Visit * Reason Comments Dosage Adjustment In Person (Anticoag Cl inic) Follow Up Encounter Details Date Type Department Care Team (Late st Contact Info) Description 04/21/2024 11:[address] [facility] Pharmacy Family Practice [address] [facility] [address] [place] [phone] College, Pharmacist [address] [address] Medication management* Allergies Active Allergy Reactions Criticality Noted Date Comments Iodinated Contrast Media Rash 08/29/2009 Pt got a rash after his cath on 08/23/09 Levofloxacin 11/03/2009 Nausea jittery Lisinopril 10/01/2013 Cough Rash documented as of this encounter (statuses as of 04/24/2024) Medications oxygen IN GASIndications: SOB (shortness of breath) Administer 2 L/min(Oxygen) into nostril at bedtime. And with naps or if needed for shortness of breath 1 Each 04/14/19 25 Active Acetaminophen 500 MG Oral Tablet (Tylenol) Take 2 Tablets by mouth every 6 hours as needed for breakthrough pain (up to 3000 mg daily (6 tablets)). 30 Tablet 04/17/2024 12:21 PM EST 04/17/19 25 Active Additional Information Patient not taking.Reported on 04/21/2024 Aspirin 81 MG Oral Tablet Chewable Chew & swallow 1 tablet by mouth every night at bedtime. 100 Tablet 3 04/17/2024 12:21 PM EST 04/17/19 25 Active Magnesium Oxide 400 MG Oral Tablet Take 1 Tablet by mouth two times per day (morning & before bedtime). 30 Tablet 04/17/2024 12:21 PM EST 04/17/19 25 Active Isosorbide Mononitrate ER 60 MG Oral Tablet Extended Release 24 Hour (Imdur)Indicati ons:Old myocardial infarction Taking 2 tablets by mouth every morning 60 Tablet 04/17/2024 12:21 PM EST 04/17/19 25 Active Nitroglycerin 0.4 MG Sublingual Tablet Sublingual (Nitrostat) Place 1 tablet under tongue as needed for chest pain. May repeat for 3 total tablets within 15 minutes. If chest pain continues, call 911 25 Tablet 3 04/17/2024 12:21 PM EST 04/17/19 25 Active Ranolazine ER 1000 MG Oral Tablet Extended Release 12 HourIndications :Coronary artery disease of [place] artery of [place] heart with stable angina pectoris (HCC) Take 1 Tablet by mouth two times per day (morning & before bedtime). 200 Tablet 3 04/17/2024 12:21 PM EST 04/17/19 25 Active Apixaban 5 MG Oral Tablet (Eliquis) Take 1 Tablet by mouth in the morning and 1 Tablet before bedtime. 60 Tablet 04/17/2024 12:21 PM EST 04/17/19 25 Active metFORMIN HCl ER 500 MG Oral Tablet Extended Release 24 Hour (Glucophage XR) Take 2 Tablets by mouth 2 times a day (with morning and evening meals). 360 Tablet 3 04/17/2024 12:21 PM EST 04/17/19 25 Active Ondansetron HCl 8 MG Oral Tablet (Zofran)Indicat ions: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) Take 1 Tablet by mouth every 8 hours as needed for Nausea. 30 Tablet 3 04/17/2024 12:21 PM EST 04/17/19 25 Active Prochlorperazin e Maleate 10 MG Oral Tablet (Compazine)Emily cations:Metasta sis from pancreatic cancer (HCC) Take 1 Tablet by mouth every 6 hours as needed for Nausea. 30 Tablet 3 04/17/2024 12:21 PM EST 04/17/19 25 Active Metoprolol Tartrate 25 MG Oral Tablet (Lopressor) Take one-half tablet by mouth two times per day (morning & before bedtime). 30 Tablet 04/17/2024 12:21 PM EST 04/17/19 25 Active Lidocaine-Prilo chester 2.5-2.5 % External Cream (Emla)Indicatio ns: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) APPLY TO SKIN OVER MEDIPORT & COVER 1HR PRIOR TO ACCESSING. 30 g 1 04/17/2024 12:21 PM EST 04/17/19 25 Active Nystatin 713070 UNIT/GM External Powder (Nystop) Apply topically to affected area 2 times a day as needed (fungal rash). Apply to groin area 15 g 04/17/2024 12:21 PM EST 04/17/19 25 Active Bumetanide 0.5 MG Oral Tablet (Bumex) Take 1 Tablet by mouth every morning. 30 Tablet 04/17/2024 12:21 PM EST 04/18/19 25 Active Tamsulosin HCl 0.4 MG Oral Capsule (Flomax) Take 1 Capsule by mouth two times per day (morning & before bedtime). 200 Capsule 2 04/17/2024 12:21 PM EST 04/17/19 25 Active Iron-Vitamin C 65-125 MG Oral Tablet (Vitron C) Take 1 Tablet by mouth every other day. 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 DX: E11.9 1 Kit 04/17/2024 12:21 PM EST 04/17/19 25 Active Potassium Chloride ER 10 MEQ Oral Tablet Extended ReleaseIndicati ons:Bilateral leg edema Take 1 Tablet by mouth every morning. 30 Tablet 5 04/17/2024 12:21 PM EST 04/17/19 25 Active Fluticasone Propionate 50 MCG/ACT Nasal Suspension (Flonase)Indica tions:Chronic maxillary sinusitis Administer 1 [place] into nostril in the morning. 48 g 3 04/17/2024 12:21 PM EST 04/17/19 25 Active Pantoprazole Sodium 20 MG Oral Tablet Delayed Release (Protonix)Indic ations:Gastroes ophageal reflux disease without esophagitis Take 1 Tablet by mouth every morning. 100 Tablet 3 04/17/2024 12:21 PM EST 04/17/19 25 Active Vitamin D3 25 MCG (1000 UT) Oral Tablet (Vitamin D3) Take 1 tablet by mouth every evening. 30 Tablet 04/17/2024 12:21 PM EST 04/17/19 25 Active Probiotic Blend Oral Capsule Take 1 Capsule by mouth in the morning. 04/01/19 25 Active Multivitamin Men Oral Tablet Take 1 Tablet by mouth daily with dinner. Active Bacid Oral Capsule Take 1 Capsule by mouth daily before breakfast. 30 Capsule 04/17/2024 12:21 PM EST 04/17/19 25 025 Discontin ued(Medic ation List Clean Up) diphenhydrAMINE HCl 25 MG Oral Capsule (Benadryl)Indic ations:Metastas is from pancreatic cancer (HCC),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) Take 2 capsules by mouth [address] appt 2 Capsule 04/17/2024 12:21 PM EST 04/17/19 25 025 Discontin ued(Medic ation List Clean Up) predniSONE 50 MG Oral Tablet (Deltasone)Emily cations:Metasta sis from pancreatic cancer (HCC),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) Take 1 tablet by mouth at 13 hours, 7 hours, and [address] appt 3 Tablet 04/17/2024 12:21 PM EST 04/17/19 25 025 Discontin ued(Medic ation List Clean Up) Magic Swizzle (Lidocaine-Kimberlee dryl-Maalox) oral solutionIndicat ions:Oral pain Swish and spit 15 mL by mouth three times per day (morning, noon, & before bedtime). 300 mL 04/17/2024 12:21 PM EST 04/17/19 25 025 Discontin ued(Medic ation List Clean Up) Tab-A-Lilo Oral Tablet Take 1 Tablet by mouth every evening. 30 Tablet 04/17/2024 12:21 PM EST 04/17/19 025 Discontin ued(Medic ation List Clean Up) Hospital, Clinic, or Other Facility Administered Medication Ordered Dose Route Frequency Start Date End Date Status Vitamin B-12 (Cyanocobalamin) inj 1,000 mcgIndications:Vitamin B 12 deficiency 1000 mcg IM [id number] 06/15/2024 12/26/2026 Active documented as of this encounter (statuses as of 04/24/2024) Active Problems Problem Noted Date Diagnosed Date Physician orders for life-cruz staining treatment (POLST) form indicates patient wish for ih-fwe-oylmbpyveyh status 04/21/2024 Hyponatremia 04/04/2024 Goals of care, counseling/discussion 04/02/2024 Palliative care encounter 04/02/2024 Secondary malignant neoplasm of liver and intrahepatic bile duct 02/17/2024 Malignant neoplasm of head of pancreas Metastasis from pancreatic cancer 01/28/2024 Encounter for antineoplastic chemotherapy 2023 Atherosclerosis of [place] ar teries of extremities with rest pain, bilateral legs 11/08/2023 Pulmonary hypertension, unspecified 07/17/2022 B12 deficiency 03/22/2022 Moderate aortic stenosis 11/28/2021 Coronary artery disease of n ative artery of [place] heart with stable angina pectoris 09/17/2019 Gastroesophageal [...] as of this encounter (statuses as of 04/24/2024) Resolved Problems Problem Noted Date Diagnosed Date Resolved Date Sepsis due to Streptococcus species without acute organ dysfunction 04/15/2024 04/17/2024 Acute hypoxic respiratory failure 04/07/2024 04/15/2024 Pneumonia of right upper lob e due to infectious organism 04/04/2024 04/15/2024 Acute cholecystitis 04/02/2024 04/15/19 Sepsis without acute organ dysfunction 04/02/2024 04/15/2024 Pancytopenia 04/01/2024 04/21/2024 Dehydration 02/24/2024 03/23/2024 Current mild episode of sania r depressive disorder without prior episode 03/22/2022 2 Current 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 [employer] Other*[id number] 09/23/2009 05/01/2016 Overview (09/23/2009): Study Titile: Genomic Markers for Patients with Cardiovascular Disease Project #[id number] PI: Estela Sandoval MD Please call [phone] with study related questions Dyslipidemia, goal LDL below 70 08/30/2009 02/26/2013 HTN, goal below 130/80 08/30/200911/14 Overview: Per HTN Protocol #27. History of drug allergy 08/29/200906/23 Dyslipidemia, goal LDL below 70 08/23/2009 02/26/2013 ACEI/ARB contraindicated 09/2013 documented as of this encounter (statuses as of 04/24/2024) Immunizations Name Administration Dates Next Due COVID-19 [...] Answer Date Recorded PHQ Adult Total Score 7 04/20/2024 Hunger Vital Sign Answer Date Recorded Within the past 12 months, y ou worried that your food would run out before you got the money to buy more. Never true 04/20/19 25 Within the past 12 months, t he food you bought just didn't last and you didn't have money to get more. Never true 04/20/2024 Childcare Answer Date Recorded Do you feel overwhelmed with taking care of a child, family member or friend? No 04/20/2024 Does your family need help f inding childcare? (Household - for ages 0-17 years) Not on file 04/20/2024 Clothing Answer Date Recorded Have you been unable to get clothing when it was really needed? No 04/20/2024 Is your family able to get c lothes or diapers when needed? (Household - for ages 0-17 years) Not on file 04/20/2024 Personal Safety Answer Date Recorded Do you feel unsafe or have concerns for your saf ety? No 04/20/2024 Do you have concerns for you r family's safety? (Household - for ages 0-17 years) Not on file 04/20/2024 Utilities Answer Date Recorded Do you have trouble paying y our heating, water, or electric bill? No 04/20/2024 Is your family able to pay t he heat, water, or electric bill? (Household - for ages 0-17 years) Not on file 04/20/2024 Does your family have access to good internet? (Household - for ages 0-17 years) Not on file 04/20/2024 Employment Status Answer Date Recorded Are you unemployed or without regular income? No 04/20/2024 Does the household have a re gular source of income? (Household - for ages 0-17 years) Not on file 04/20/2024 Social Connections Answer Date Recorded How often do you feel lonely or isolated from th ose around you? Rarely 04/20/2024 Financial Resource Strain Answer Date R ecorded Do you have any trouble payi ng for your medications, or do you think you might in the future? No 04/20/2024 Does your family have troubl e paying for medicine? (Household - for ages 0-17 years) Not on file 04/20/2024 Transportation Needs Answer Date Record ed Do you have trouble getting a ride to medical visits or work? (Adult - for ages 18 years and over) Not on file 04/20/2024 Does your family have a hard time getting a ride to doctors visits? (Household - for ages 0-17 years) Not on file 04/20/2024 Has lack of transportation k ept you from medical appointments, meetings, work, or from getting things needed for daily living? Check all that apply. No 04/20/2024 Do you (or your family) have trouble finding or paying for a ride (transportation)? (Household - for ages 0-17 years) Not on file 04/20/2024 Housing Stability Answer Date Recorded Do you currently live in a s helter or have no steady place to sleep at night? No 04/20/2024 Do you think you are at risk of becoming homeless? (Adult - for ages 18 years and over) Not on file 04/20/2024 Does your family worry about paying for your home or becoming homeless? (Household - for ages 0-17 years) Not on file 0 04/20/2024 Are you homeless or worried that you might be in the future? No 04/20/2024 Are you (or your family) jazmine eless or worried that you might be in the future? (Household - for ages 0-17 years) Not on file Food Insecurity Answer Date Recorded Do you need food for this week? No 04/20/2024 Are you able to get enough f ood for your family? (Household - for ages 0-17 years) Not on file 04/20/2024 Does your family need food t his week? (Household - for ages 0-17 years) Not on file 04/20/2024 Do you always have enough fo od for your family? (Household - for ages 0-17 years) Not on file 04/20/2024 Sex and Gender Information Value Date Recorded [...] Zuri Walters RN documented in this encounter Progress Notes * Yaquelin Turner, Fabby Pena, [facility] - 04/21/2024 10:49 AM EST Medication Therapy Disease Management Clinic - Medication Reconciliation Encounter Type: discussed with patient Med Bottles Available for Review: yes Med Rec Reason: Transition of Care Date of Admission: 04/02/24 to [facility] Date of Discharge: 04/17/24 Reason for Admission: VIN/possible bleed - received 1u PRBC Medication changes during admission/on discharge: Added: bumetanide 0.5 mg daily, eliquis 5mg BID, metoprolol 12.5mg daily Modified: none Discontinued: glipizide, furosemide, atenolol, clopidogrel Does the patient currently have all of their medications in their home? Yes [x] Preferred pharmacy reviewed/updated [x] Problem list reviewed [x] Allergies reviewed and updated if needed [x] Drug interaction check completed [x] HEDIS list addressed Immunizations indicated: Pneumococcal Labs/Vitals/Risk Scores: The ASCVD Risk score (Christian DK, et al., 2019) failed to calculate for the following reasons: Risk score cannot be calculated because patient has a medical history suggesting prior/existing ASCVD BP Readings from Last 3 Encounters: 04/21/24 110/64 04/17/24 148/75 04/01/24 107/64 Recent Labs Units 03/04/24 1111 11/08/23 1005 07/12/23 1004 HEMOGLOBIN A1C - [facility] % 6.5* 6.6* 6.2* Recent Labs Units 04/17/24 0830 04/16/24 0655 04/14/24 0550 ESTIMATED GLOMERULAR FILTRATION RATE - [facility] mL/min >90 >90 >90 Serum creatinine: 0.7 mg/dL 04/17/24 0830 Estimated creatinine clearance: 67.6 mL/min Assessment: Medication discrepancies identified: all meds had been updated by home health nurse and patients daughter per discharge Dose/frequency of medications appropriate for current renal function? yes Other medication problems identified: patient concerned about sugars going high in evening without glipizide. Plan: Immunizations facilitated: None Patient education provided: regarding indications for medications as well as our priority that he does not have hypoglycemia. Advised patient to only check sugars in the evening > 2 hours after he's eaten a meal/snack. Patient to call if sugars exceed 300 or if consistently > 200. Referral pended for follow up management of: N/A Medication recommendations: maintain current regimen - do not take glipizide. I spent a total of 10-19 minutes (exact time 18 mins) on the date of service in preparation, delivery, and documentation of the care provided to Michael Gutierrez excluding any time spent in the performance of separately billed services or time spent by another provider/QHP. Fabby Serna [facility] Clinical Pharmacist - Assessment Clinician Medication Therapy Management Clinic 04/21/2024, 3:24 PM documented in this encounter Plan of Treatment Upcoming Encounters Date Type Department Care Team (Late st Contact Info) Description 04/28/2024 9:30 AM EST Office Visit Hematology/Oncology [address] [place] [phone] Marimar Del Castillo MD [address] [place] [address] 05/06/2024 2:20 PM EST Office Visit Family Practice [address] [place] [address] [address] [place] [address] Pedro Luis Bowens DO [address] [place] [address] 05/13/2024 2:30 PM EST Office Visit Palliative Medicine [facility] [address] [place] [phone] Merari Martinez MD [address] [place] [address] [place] [address] 07/08/2024 2:00 PM EDT Office Visit Infectious Disease [facility] Marycarmen Maxwell [address] [place] [address] DO [address] [facility] [address] Scheduled Procedures Name Priority Associated Diagnoses Date/Ti me ENDOSCOPIC RETROGRADE CHOLANGIOPANCREATOGRAPHY (ERCP) DIAGNOSTIC Recall Cholangitis Health Maintenance Due Date Last Done Comments Adult Wellness Visit 12/15/2021 12/15/2020 Depression Screening 04/20/2025 04/20/2024 Zoster Vaccines Completed 09/17/2019, 03/19/2019, 0 12/20/2011 [...] this encounter Medical Devices Implanted Type Area Packing Room Supervisor Device Identifier Shelf Expiration Date Model / Serial / Lot Stent Bili Duodenal [id number] - [id number] Implanted:Qty : 1 on 01/16/2024 by Jose E Bai MD at [facility] N/A: Stomach [employer] 12/02/2025 [id number] / / [id number] Stent Viabil Biliary [id number] - [id number] Implanted:Qty : 1 on 04/02/2024 by Mars Anna DO at ENDOSCOPY [facility] [employer] [id number] 01/15/2027 [id number] / [id number] / [id number] documented as of this encounter Visit Diagnoses Diagnosis Medication management- Primary Encounter for long-term (current) use of other medications documented in this encounter Advance Directives Documents on File Type Date Recorded Patient Knuckle Bender Expl anation POLST 04/22/2024 signed on 04/21 - POLST - DNR / Limited Interventions * No Code (Latest Code Status on [...] Power of Attor ila? No Care Teams Correspondence Coordinator Relationship Specialty Start Date End Date Pedro Luis Bowens DO [address] [place] [address] PCP - General Internal Medicine 09/09/23 documented as of this encounter
--- OUTSIDE RECORDS SUMMARY | 2024-04-25 17:56 | External Medical Summary | Summary of Care ---
Author Name Unknown Organization [facility] Address [address] [place] [address] Phone [phone] Care Team Providers Care Associate Professor Of Communication Name Role Phone Pedro Luis Bowens DO Primary Care Provider Reason for Visit * Reason Onset Date Comments Appointment 04/17/2024 Encounter Details Date Type Department Care Team (Late st Contact Info) Description 04/17/2024 Telephone [facility] [place] [address] Angel Jeffries, DARIA [address] [place], [place] [id number] Appointment Allergies Active Allergy Reactions Criticality Noted Date Comments Iodinated Contrast Media Rash 08/29/2009 Pt got a rash after his cath on 08/23/09 Levofloxacin 11/03/2009 Nausea jittery Lisinopril 10/01/2013 Cough Rash documented as of this encounter (statuses as of 04/17/2024) Medications oxygen IN GASIndications: SOB (shortness of [...] Release 12 HourIndications :Coronary artery disease of [place] artery of [place] heart with stable angina pectoris (HCC) Take [...] 04/17/2024 12:21 PM EST 5 Active Nystatin 352713 UNIT/GM External Powder (Nystop) Apply topically to affected area 2 times a day as needed (fungal rash). Apply to groin area 15 g 04/17/2024 12:21 PM EST 5 Active Bumetanide 0.5 MG Oral Tablet (Bumex) Take 1 Tablet by mouth every morning. 30 Tablet 04/17/2024 12:21 PM EST 5 Active Magic Swizzle (Lidocaine-[place] dryl-Maalox) oral solutionIndicat ions:Oral pain Swish and spit 15 mL by mouth three times per day (morning, noon, & before bedtime). 300 mL 04/17/2024 12:21 PM EST Active Tamsulosin HCl 0.4 MG Oral Capsule (Flomax) Take 1 Capsule by mouth two times per day (morning & before bedtime). 200 Capsule 2 04/17/2024 12:21 PM EST Active Iron-Vitamin C 65-125 MG Oral Tablet (Vitron C) Take 1 Tablet by mouth every other day. 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 48 g 3 04/17/2024 12:21 PM EST 5 Active Pantoprazole Sodium 20 MG Oral Tablet [...] mcgIndications:Vitamin B 12 deficiency 1000 mcg IM [id number] 06/15/2024 12/26/2026 Active documented as of this encounter (statuses as of 04/17/2024) Active Problems Problem Noted Date Diagnosed Date Hyponatremia 04/04/2024 Goals of care, counseling/discussion 04/02/2024 Palliative care encounter 04/02/2024 Pancytopenia 04/01/2024 Secondary malignant neoplasm of liver and intrahepatic bile duct 02/17/2024 Malignant neoplasm of head of pancreas Metastasis from pancreatic cancer 01/28/2024 Encounter for antineoplastic chemotherapy [address] 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 [employer] Other*[id number] 09/23/2009 05/01/2016 Overview (09/23/2009): Study Titile: Genomic Markers for Patients with Cardiovascular Disease Project #[id number] PI: Estela Sandoval MD Please call [phone] with study related questions Dyslipidemia, goal LDL below 70 08/30/2009 02/26/2013 HTN, goal below 130/80 08/30/200911/14 Overview: Per HTN Protocol #27. History of drug allergy 08/29/200906/23 Dyslipidemia, goal LDL below 70 08/23/2009 02/26/2013 ACEI/ARB contraindicated 09/2013 documented as of this encounter (statuses as of 04/17/2024) Immunizations Name Administration Dates Next Due COVID-19 [...] Zuri Walters RN documented in this encounter Miscellaneous Notes * Telephone Encounter - Angel Jeffries OSA - 04/17/2024 2:21 PM EST Pt stated he currently lives in [place], out of [facility] service area, episode closed documented in this encounter Plan of Treatment Upcoming Encounters Date Type Department Care Team (Late st Contact Info) Description 04/21/2024 10:40 AM EST Office Visit Family Practice [address] [facility] [place] [address] [place] [address] Pedro Luis Bowens, [address] [place] [address] 04/28/2024 9:30 AM EST Office Visit Hematology/Oncology [facility] [address] [place] [address] Marimar Del Castillo MD [address] [place] [address] 07/08/2024 2:00 PM EDT Office Visit Infectious Disease [facility] [address] [place] [address], DO [address] [place] [address] Scheduled Procedures Name Priority Associated Diagnoses Date/Ti [...] this encounter Medical Devices Implanted Type Area Pickling Operator Device Identifier Shelf Expiration Date Model / Serial / Lot Stent Bili Duodenal [id number] - [id number] Implanted:Qty : 1 on 01/16/2024 by Jose E Bai MD at [facility]COPY [facility] N/A: Stomach [employer] 12/02/2025 PBD-1031- 1007 / / [id number] Stent Viabil Biliary [id number] - [id number] Implanted:Qty : 1 on 04/02/2024 by Mars Anna DO at [facility] [employer] [id number] 01/15/2027 [id number] / [id number] / [id number] documented as of this encounter Advance Directives * No Code (Latest Code Status on File) Date Activated Date Inactivated Comments 04/02/2024 1:48 AM This order refl ects the patients wishes and were consensually agreed [...] Health Care Power of Attor ila? No Healthcare Agents on File Name Relationship Healthcare Agent Relationship Communication Johann (ABHINAV) Beiswenger Other - (no specific identity) First Alternate Health Care Agent (per Health Care Power of Rental Manager document) Care Teams Associate Professor Of Communication Relationship Specialty Start Date End Date Pedro Luis Bowens DO [address] [place] [address] PCP - General Internal Medicine 09/09/23 documented as of this encounter
--- OUTSIDE RECORDS SUMMARY | 2024-04-25 17:56 | External Medical Summary | Summary of Care ---
Author Name Unknown Organization [facility] Address [address] [place] [address] Phone [phone] Care Team Providers Care Automatic Beading Lathe Operator Name Role Phone Pedro Luis Bowens DO Primary Care Provider Reason for Visit * Reason Onset Date Comments Cementer Machine Documentation 04/17/2024 My CareChoices/Advance Care Planning Encounter Details Date Type Department Care Team (Late st Contact Info) Description 04/17/2024 Telephone Care Coordination [address] [place] [address] Anca Milligan, POLYMERIZATION SUPERVISOR Cementer Machine Documentation ([employer]... Allergies Active Allergy Reactions Criticality Noted Date [...] Release 12 HourIndications :Coronary artery disease of [place] artery of [place] heart with stable angina pectoris (HCC) Take [...] 04/17/2024 12:21 PM EST 5 Active Nystatin 016311 UNIT/GM External Powder (Nystop) Apply topically to affected area 2 times a day as needed (fungal rash). Apply to groin area 15 g 04/17/2024 12:21 PM EST 5 Active Bumetanide 0.5 MG Oral Tablet (Bumex) Take 1 Tablet by mouth every morning. 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 DX: E11.9 1 Kit 04/17/2024 12:21 PM EST Active Potassium Chloride ER 10 MEQ Oral Tablet Extended ReleaseIndicati ons:Bilateral leg edema Take 1 Tablet by mouth every morning. 30 Tablet 5 04/17/2024 12:21 PM EST 5 Active Tab-A-Lilo Oral Tablet Take 1 Tablet by mouth every evening. 30 Tablet 04/17/2024 12:21 PM EST Active Fluticasone Propionate 50 MCG/ACT Nasal Suspension (Flonase)Indica tions:Chronic maxillary sinusitis Administer 1 [place] into nostril in the morning. 48 g [...] mcgIndications:Vitamin B 12 deficiency 1000 mcg IM [id number] 06/15/2024 12/26/2026 Active documented as of this encounter (statuses as of 04/17/2024) Active Problems Problem Noted Date Diagnosed Date Hyponatremia 04/04/2024 Goals of care, counseling/discussion 04/02/2024 Palliative care encounter 04/02/2024 Pancytopenia 04/01/2024 Secondary malignant neoplasm of liver and intrahepatic bile duct 02/17/2024 Malignant neoplasm of head of pancreas Metastasis from pancreatic cancer 01/28/2024 Encounter for antineoplastic chemotherapy 2023 Atherosclerosis of [place] ar teries of extremities with rest pain, bilateral legs 11/08/2023 Pulmonary hypertension, unspecified 07/17/2022 B12 deficiency 03/22/2022 Moderate aortic stenosis 11/28/2021 Occupational exposure to noise 09/27/2020 Coronary artery disease of n ative artery of [place] heart with stable angina pectoris 09/17/2019 Gastroesophageal [...] Per HTN Protocol #27. [employer] Other*[id number] 09/23/2009 05/01/2016 Overview (09/23/2009): Study Titile: Genomic Markers for Patients with Cardiovascular Disease Project #[id number] PI: Estela Sandoval MD Please call [phone] with study related questions Dyslipidemia, goal LDL [...] CG/0.3 mL, 12 YRS AND ABOVE, IM (PFIZER-Comirnat) 12/26/2023 COVID-19, MRNA-LNP, PF, 49 M CG/0.5 [...] encounter Miscellaneous Notes * Telephone Encounter - Anca Milligan LCSW - 04/17/2024 4:13 PM EST Reminder: A serious illness conversation alert will fire at the upcoming provider scheduled visit on 04/21/24. Conversation metrics needed in ACP note: Understanding of Illness Understanding of Prognosis Hopes Fears Surrogate Decision Maker POLST Reminder serious illness conversation needs to be entered in the new ACP activity flowsheet rows 04/07/2024. Thank you, [employer] [phone] documented in this encounter Plan of Treatment Upcoming Encounters Date Type Department Care Team (Late st Contact Info) Description 04/21/2024 10:40 AM EST Office Visit Family Practice [address] [place] [address] [facility] [address] Pedro Luis Bowens, [address] [place] [address] 04/28/2024 9:30 AM EST Office Visit Hematology/Oncology [facility] [address] [place] [address] Marimar Del Castillo MD [address] [place] [address] 07/08/2024 2:00 PM EDT Office Visit Infectious Disease [facility] [address] [place] [address], DO [address] [place] [address] Scheduled Procedures Name Priority Associated Diagnoses Date/Ti [...] this encounter Medical Devices Implanted Type Area Slubber Runner Device Identifier Shelf Expiration Date Model / Serial / Lot Stent Bili Duodenal [id number] - [id number] Implanted:Qty : 1 on 01/16/2024 by Jose E Bai MD at ENDOSCOPY [facility] N/A: Stomach [employer] 12/02/2025 PBD-1031- 1007 / / [id number] Stent Viabil Biliary [id number] - [id number] Implanted:Qty : 1 on 04/02/2024 by Mars Anna DO [place] [facility] [employer] [id number] 01/15/2027 [id number] / [id number] / [id number] documented as of this encounter Advance Directives [...] Power of Attor ila? No Care Teams Automatic Beading Lathe Operator Relationship Specialty Start Date End Date Pedro Luis Bowens DO [address] [place] [address] PCP - General Internal Medicine 09/09/23 documented as of this encounter
--- OUTSIDE RECORDS SUMMARY | 2024-04-25 17:56 | External Medical Summary | Summary of Care ---
Author Name Unknown Organization [facility] Address [address] [place] [address] Phone [phone] Care Team Providers Care Mortgage Loan Reviewer Name Role Phone Pedro Luis Matute DO Primary Care Provider Reason for Referral * Evaluate & Treat - Unlimited Visits (Within 10 days (routine)) - Authorized Specialty Diagnoses / Procedures Referred By Heather t Referred To Contact Cardiovascular Medicine / Cardiology Diagnoses Edema, unspecified Acute on chronic congestive heart failure, unspecified heart failure type (HCC) John Villarreal MD [address] [facility] [place] [address] Phone: tel: fax: Referral ID Status Reason Start Date Expiration Date Visits Requested Visits Authorized [id number] Authorized Specialty Services Required 04/14/2024 [id number] Question Answer Referral Priority Within 10 days (routine) Where should this appointment be scheduled? [facility] To which of the following clinics are you referring your patient? Heart Failure Clinic Comments Discharge Order Reason for Visit * Auth/Cert Specialty Diagnoses / Procedures Referred By Contjunior t Referred To Contact Diagnoses Acute Cholecystitis Valdez Starr DO [address] [place] [address] Phone: tel: fax: Admissions, [facility] [address] [place] [address] Referral ID Status Reason Start Date Expiration Date Visits Re quested Visits Authorized [id number] Encounter Details Date Type Department Care Team (Latest Contact Info) Description 04/02/2024 1:26 AM EST - 04/17/2024 12:43 PM EST Hospital [id number] [address] [place], [place] [id number] Valdez Starr, [facility] [place] [address] Uriel Mosqueda, [address] [address] Mansi Chadwick MD [address] [place] [phone] Jesse Stinson MD [facility] [place] [phone] John Villarreal MD [facility] [place] [phone] Ritu Gongora, [address] [phone] Various: EKG,ERCP,CDIQDC,NOX IMG Discharge Disposition: Home with Services Allergies Active Allergy Reactions Criticality Noted Date Comments Iodinated Contrast Media Rash 08/29/2009 Pt got a rash after his cath on 08/23/09 Levofloxacin 11/03/2009 Nausea jittery Lisinopril 10/01/2013 Cough Rash documented as of this encounter (statuses as of 04/18/2024) Medications oxygen IN GASIndications: SOB (shortness of breath) Administer 2 L/min(Oxygen) into nostril at bedtime. And with naps or if needed for shortness of breath 1 Each Active Acetaminophen 500 MG Oral Tablet (Tylenol) Take 2 Tablets by mouth every 6 hours as needed for breakthrough pain (up to 3000 mg daily (6 tablets)). 30 Tablet 04/17/19 12:21 PM EST 025 Active Aspirin 81 MG Oral Tablet Chewable Chew & swallow 1 tablet by mouth every night at bedtime. 100 Tablet 3 04/17/19 12:21 PM EST 025 Active Magnesium Oxide 400 MG Oral Tablet Take 1 Tablet by mouth two times per day (morning & before bedtime). 30 Tablet 04/17/19 12:21 PM EST 025 Active Isosorbide Mononitrate ER 60 MG Oral Tablet Extended Release 24 Hour (Imdur)Indicati ons:Old myocardial infarction Taking 2 tablets by mouth every morning 60 Tablet 04/17/19 12:21 PM EST 025 Active Nitroglycerin 0.4 MG Sublingual Tablet Sublingual (Nitrostat) Place 1 tablet under tongue as needed for chest pain. May repeat for 3 total tablets within 15 minutes. If chest pain continues, call 911 25 Tablet 3 04/17/19 12:21 PM EST 025 Active Ranolazine ER 1000 MG Oral Tablet Extended Release 12 HourIndications :Coronary artery disease of [place] artery of [place] heart with stable angina pectoris (HCC) Take 1 Tablet by mouth two times per day (morning & before bedtime). 200 Tablet 3 04/17/19 12:21 PM EST 025 Active Apixaban 5 MG Oral Tablet (Eliquis) Take 1 Tablet by mouth in the morning and 1 Tablet before bedtime. 60 Tablet 04/17/19 12:21 PM EST 025 Active metFORMIN HCl ER 500 MG Oral Tablet Extended Release 24 Hour (Glucophage XR) Take 2 Tablets by mouth 2 times a day (with morning and evening meals). 360 Tablet 3 04/17/19 12:21 PM EST 025 Active Bacid Oral Capsule Take 1 Capsule by mouth daily before breakfast. 30 Capsule 04/17/19 25 12:21 PM EST 025 Active Ondansetron HCl 8 MG Oral Tablet (Zofran)Indicat ions: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) Take 1 Tablet by mouth every 8 hours as needed for Nausea. 30 Tablet 3 04/17/19 25 12:21 PM EST 025 Active diphenhydrAMINE HCl 25 MG Oral Capsule (Benadryl)Indic ations:Metastas is from pancreatic cancer (HCC),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) Take 2 capsules by mouth [address] appt 2 Capsule 04/17/19 25 12:21 PM EST 025 Active Prochlorperazin e Maleate 10 MG Oral Tablet (Compazine)Emily cations:Metasta sis from pancreatic cancer (HCC) Take 1 Tablet by mouth every 6 hours as needed for Nausea. 30 Tablet 3 04/17/19 25 12:21 PM EST 025 Active Metoprolol Tartrate 25 MG Oral Tablet (Lopressor) Take one-half tablet by mouth two times per day (morning & before bedtime). 30 Tablet 04/17/19 12:21 PM EST 025 Active predniSONE 50 MG Oral Tablet (Deltasone)Emily cations:Metasta sis from pancreatic cancer (HCC),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) Take 1 tablet by mouth at 13 hours, 7 hours, and [address] appt 3 Tablet 04/17/19 25 12:21 PM EST 025 Active Lidocaine-Prilo chester 2.5-2.5 % External Cream (Emla)Indicatio ns: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) APPLY TO SKIN OVER MEDIPORT & COVER 1HR PRIOR TO ACCESSING. 30 g 1 04/17/19 25 12:21 PM EST 025 Active Nystatin 097443 UNIT/GM External Powder (Nystop) Apply topically to affected area 2 times a day as needed (fungal rash). Apply to groin area 15 g 04/17/19 25 12:21 PM EST 025 Active Bumetanide 0.5 MG Oral Tablet (Bumex) Take 1 Tablet by mouth every morning. 30 Tablet 04/17/19 25 12:21 PM EST Active Magic Swizzle (Lidocaine-Kimberlee dryl-Maalox) oral solutionIndicat ions:Oral pain Swish and spit 15 mL by mouth three times per day (morning, noon, & before bedtime). 300 mL 04/17/19 12:21 PM EST Active Tamsulosin HCl 0.4 MG Oral Capsule (Flomax) Take 1 Capsule by mouth two times per day (morning & before bedtime). 200 Capsule 2 04/17/19 12:21 PM EST Active Iron-Vitamin C 65-125 MG Oral Tablet (Vitron C) Take 1 Tablet by mouth every other day. 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 DX: E11.9 1 Kit 04/17/19 12:21 PM EST Active Potassium Chloride ER 10 MEQ Oral Tablet Extended ReleaseIndicati ons:Bilateral leg edema Take 1 Tablet by mouth every morning. 30 Tablet 5 04/17/19 12:21 PM EST 025 Active Tab-A-Lilo Oral Tablet Take 1 Tablet by mouth every evening. 30 Tablet 04/17/19 12:21 PM EST 025 Active Fluticasone Propionate 50 MCG/ACT Nasal Suspension (Flonase)Indica tions:Chronic maxillary sinusitis Administer 1 [place] into nostril in the morning. 48 g 3 04/17/19 12:21 PM EST 025 Active Pantoprazole Sodium 20 MG Oral Tablet Delayed Release (Protonix)Indic ations:Gastroes ophageal reflux disease without esophagitis Take 1 Tablet by mouth every morning. 100 Tablet 3 04/17/19 12:21 PM EST Active Vitamin D3 25 MCG (1000 UT) Oral Tablet (Vitamin D3) Take 1 tablet by mouth every evening. 30 Tablet 04/17/19 25 12:21 PM EST 025 Active ASPIRIN 81 MG PO CHEW Take 1 Tablet by mouth at bedtime. 100 Tab 3 010 2024 Discontinued Iron-Vitamin C 65-125 MG Tablet Take 1 Tablet by mouth every other day. 2024 Discontinued Multiple Vitamin (MULTI-DAY) Tablet Take 1 Tablet by mouth every evening. 2024 Discontinued Probiotic Product (PROBIOTIC ACIDOPHILUS BIOBEADS) Capsule Take 1 Cap by mouth daily before breakfast. 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 DX: E11.9 1 Kit 021 2024 Discontinued Vitamin D3 25 MCG (1000 UT) Oral Capsule Take 1 Capsule by mouth every evening. 2024 Discontinued Ranolazine ER 1000 MG Oral Tablet Extended Release 12 HourIndications :Coronary artery disease of [place] artery of [place] heart with stable angina pectoris (HCC) TAKE ONE TABLET BY MOUTH TWICE A DAY 200 Tablet 3 02/24/20 24 4:58 PM EST 024 2024 Discontinued Isosorbide Mononitrate ER 60 MG Oral Tablet Extended Release 24 Hour (Imdur)Indicati ons:Old myocardial infarction TAKE ONE TABLET BY MOUTH TWICE A DAY 200 Tablet 2 02/21/20 24 7:22 AM EST 024 2024 Discontinued Tamsulosin HCl 0.4 MG Oral Capsule (Flomax) TAKE ONE CAPSULE BY MOUTH TWICE A DAY 200 Capsule 2 02/21/20 24 7:22 AM EST 024 2024 Discontinued Pantoprazole Sodium 20 MG Oral Tablet Delayed Release (Protonix)Indic ations:Gastroes ophageal reflux disease without esophagitis Take 1 Tablet by mouth in the morning. 100 Tablet 3 02/10/20 24 10:27 AM EST 024 2024 Discontinued Clopidogrel Bisulfate 75 MG Oral Tablet (pLAVix)Indicat ions:Old myocardial infarction TAKE ONE TABLET BY MOUTH EVERY DAY 100 Tablet 3 02/21/20 7:22 AM EST 2024 Discontinued Cyanocobalamin 1000 MCG/ML Injection Solution (Cyanocobalamin )Indications:Vi tamin B12 deficiency INJECT 1ML INTRAMUSCULARLY EVERY 30 DAYS 3 mL 1 024 2024 Discontinued Fluticasone Propionate 50 MCG/ACT Nasal Suspension (Flonase)Indica tions:Chronic maxillary sinusitis ADMINISTER ONE SPRAY INTO EACH NOSTRIL DAILY 48 g 3 01/21/20 24 2:12 PM EDT 024 2024 Discontinued Nitroglycerin 0.4 MG Sublingual Tablet Sublingual (Nitrostat) One tablet under tongue if needed for chest pain. May repeat 3 times. If chest pain continues, call 911 25 Tablet 3 024 2024 Discontinued Ondansetron HCl 8 MG Oral Tablet (Zofran)Indicat ions: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) Take 1 Tablet by mouth every 8 hours as needed for Nausea. 30 Tablet 3 024 2024 Discontinued Prochlorperazin e Maleate 10 MG Oral Tablet (Compazine)Emily cations:Metasta sis from pancreatic cancer (HCC) Take 1 Tablet by mouth every 6 hours as needed for Nausea. 30 Tablet 3 024 2024 Discontinued Lidocaine-Prilo chester 2.5-2.5 % External Cream (Emla)Indicatio ns: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) APPLY TO SKIN OVER MEDIPORT & COVER 1HR PRIOR TO ACCESSING. 30 g 1 024 2024 Discontinued Acetaminophen 500 MG Oral Tablet (Tylenol) Take 2 Tablets by mouth every 6 hours as needed for Pain, Breakthrough (up to 3000 mg daily (6 tablets)). 2024 Discontinued Magnesium Oxide 400 MG Oral Tablet Take 1 Tablet by mouth in the morning and 1 Tablet before bedtime. 024 2024 Discontinued Magic Swizzle (Lidocaine-Kimberlee dryl-Maalox) oral solutionIndicat ions:Oral pain Swish and spit 15 mL in the morning and 15 mL at noon and 15 mL before bedtime. 300 mL 2024 Discontinued glipiZIDE ER 2.5 MG Oral Tablet Extended Release 24 Hour (glipiZIDE XL)Indications: Type 2 diabetes mellitus with hemoglobin A1c goal of less than 7.0% ([facility]) Take 1 Tablet by mouth in the morning. Before breakfast. 90 Tablet 2 2024 Discontinued Lidocaine Viscous HCl 2 % Mouth/Throat Solution Swish and spit 15 mL as needed for Pain, Mild (mouth discomfort). 200 mL 3 2024 Discontinued(M edication List Clean Up) Atenolol 50 MG Oral Tablet (Tenormin)Indic ations:Old myocardial infarction Take 1 Tablet by mouth in the morning. 100 Tablet 3 03/02/20 24 5:18 PM EST 2024 Discontinued Loperamide HCl 2 MG Oral Tablet (Imodium A-D) Take 1 Tablet by mouth 3 times a day as needed for Diarrhea. Then one tablet after each loose BM, no more than 3 tablets per day 2024 Discontinued metFORMIN HCl ER 500 MG Oral Tablet Extended Release 24 Hour (Glucophage XR) Take 2 Tablets by mouth 2 times a day with morning and evening meals. 360 Tablet 3 2024 Discontinued Ranolazine ER 500 MG Oral Tablet Extended Release 12 Hour Take 1 Tablet by mouth in the morning and 1 Tablet before bedtime. 14 Tablet 2024 Discontinued Fluconazole 40 MG/ML Oral Suspension Reconstituted (Diflucan) Take 5 mL by mouth in the morning. 2024 Discontinued predniSONE 50 MG Oral Tablet (Deltasone)Emily cations:Metasta sis from pancreatic cancer (HCC),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) Take 1 tablet 13 hours, 7 hours, and [address] appt 3 Tablet 2024 Discontinued diphenhydrAMINE HCl 50 MG Oral Capsule (Benadryl)Indic ations:Metastas is from pancreatic cancer (HCC),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) Take 1 capsule [address] appt 1 Capsule /24/ 2025 Discontinued Furosemide 40 MG Oral Tablet (Lasix)Indicati ons:Anasarca,Bi lateral leg edema One tablet daily 30 Tablet 6 024 2024 Discontinued Potassium Chloride ER 10 MEQ Oral Capsule Extended ReleaseIndicati ons:Bilateral leg edema Take 1 Capsule by mouth in the morning. 30 Capsule 5 024 2024 Discontinued oxygen IN GASIndications: SOB (shortness of breath) Administer 2 L/min(Oxygen) into nostril continuous. 1 Each 025 2024 Discontinued Apixaban Starter Pack 5 MG Oral Tablet Therapy Pack (Eliquis DVT/PE Starter Pack) Start taking 2tablets(total 10mg) twice a day for 7 days followed by 1 tablet (total 5mg) twice a day indefinitely 74 Tablet 2 025 2024 Discontinued Isosorbide Mononitrate ER 60 MG Oral Tablet Extended Release 24 Hour (Imdur)Indicati ons:Old myocardial infarction Taking 2 tablets in the morning 025 2024 Discontinued Metoprolol Tartrate 25 MG Oral Tablet (Lopressor) Take 0.5 Tablets by mouth in the morning and 0.5 Tablets before bedtime. 30 Tablet 025 2024 Discontinued Bumetanide 1 MG Oral Tablet (Bumex) Take 1 Tablet by mouth in the morning. 30 Tablet 025 2024 Discontinued ampicillin-sulb actam IV IJ (AMBULATORY) Administer 3 g intravenously every 6 hours for 2 days. 24 g 025 2024 Nystatin 381982 UNIT/GM External Powder (Nystop) Apply topically to affected area 2 times a day as needed for Other (fungal rash) for up to 7 days. Apply to groin area 15 g 025 2024 Discontinued Apixaban 5 MG Oral Tablet (Eliquis) Take 1 Tablet by mouth in the morning and 1 Tablet before bedtime. 60 Tablet 025 2024 Discontinued documented as of this encounter (statuses as of 04/18/2024) Active Problems Problem Noted Date Diagnosed Date Hyponatremia 04/04/2024 Goals of care, counseling/discussion 04/02/2024 Palliative care encounter 04/02/2024 Pancytopenia 04/01/2024 Secondary malignant neoplasm of liver and intrahepatic bile duct 02/17/2024 Malignant neoplasm of head of pancreas Metastasis from pancreatic cancer 01/28/2024 Encounter for antineoplastic chemotherapy 2023 Atherosclerosis of [place] ar teries of extremities with rest pain, bilateral legs 11/08/2023 Pulmonary hypertension, unspecified 07/17/2022 B12 deficiency 03/22/2022 Moderate aortic stenosis 11/28/2021 Occupational exposure to noise 09/27/2020 Coronary artery disease of [place] artery of [place] heart with stable angina pectoris 09/17/2019 Gastroesophageal [...] as of this encounter (statuses as of 04/18/2024) Resolved Problems Problem Noted Date Diagnosed Date [...] Per HTN Protocol #27. [employer] Other*[id number] 09/23/2009 05/01/2016 Overview (09/23/2009): Study Titile: [employer] for Patients with Cardiovascular Disease Project #[id number] PI: Estela Sandoval MD Please call [phone] with study related questions Dyslipidemia, goal LDL below 70 08/30/2009 02/26/2013 HTN, goal below 130/80 08/30/200911/14 Overview: Per HTN Protocol #27. History of drug allergy 08/29/200906/23 Dyslipidemia, goal LDL below 70 08/23/2009 02/26/2013 ACEI/ARB contraindicated 09/2013 documented as of this encounter (statuses as of 04/18/2024) Immunizations Name Administration Dates Next Due COVID-19 [...] Sign Reading Time Taken Comments Blood Pressure 148/75 04/17/2024 6:15 AM EST Pulse 81 04/17/2024 6:15 AM EST Temperature 36.6 C (97.9 F) 04/17/2024 6:15 AM ES T Respiratory Rate 20 04/17/2024 6:15 AM EST Oxygen Saturation 99% 04/17/2024 6:15 AM EST Inhaled Oxygen Concentration - - Weight 75.1 kg (165 lb 8 oz) 04/17/2024 2:36 AM EST Height 167.6 cm (5' 5.98") 04/02/2024 1:30 AM ES T Body Mass Index 26.73 04/02/2024 1:30 AM EST documented in this encounter Functional Status * Are you [...] Zuri Walters RN documented in this encounter Discharge Summaries * Ritu Gongora DO - 04/17/2024 9:08 AM EST [facility] [phone] Admission Date: 04/02/2024 Discharge Date: 04/17/2024 RECOMMENDED TO DO FOR NEXT PROVIDER(S): Follow up Mag RANDY in 3 days Follow up with cardiology, Oncology, Palliative medicine and Infectious disease REASON(S) FOR MEDICATION CHANGE(S): - 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 Patient had hypoglycemia with insulin. Stopping insulin on discharge. Consider sliding scale 2:50>150 if needed. Monitor blood glucose closely and adjust diabetes regimen as needed. Stop glipizide to prevent hypoglycemia - Monitor volume status and adjust diuretics PRN - Start Bumex 0.5mg daily, stop furosemide - Start Lopressor 12.5mg BID, stop Atenolol (titrate BB PRN, cautious with orthostatic hypotension) - Start eliquis 5 mg BID indefinitely for pulmonary embolism - Continue aspirin - Stop plavix per cardiology Respiratory Support at Discharge: None DISPOSITION ON DISCHARGE: Home with Home health Active Hospital Problems Diagnosis Acute hypoxic respiratory failure (HCC) Pneumonia of right upper lobe due to infectious organism Hyponatremia Acute cholecystitis Sepsis without acute organ dysfunction (HCC) Goals of care, counseling/discussion Palliative care encounter 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) Coronary artery disease of [place] artery of [place] heart with stable angina pectoris (HCC) Gastroesophageal reflux disease without esophagitis HTN, goal below 140/90 BPH (benign prostatic hyperplasia) 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 ADMISSION HISTORY & PHYSICAL EXAM (focused): Date of admission: (Not on file) PRESENTING PROBLEM/CHIEF COMPLAINT: Weakness HISTORY OF PRESENT ILLNESS: Patient is a 78 year old male with a medical history of metastatic pancreatic cancer to the liver diagnosed in December s/p EGD & ERCP on 01/16/2024 with stent placement. Other medical history includes CAD s/p multiple stents (2009) and CABG (1999), noninsulin dependent T2DM, HTN and HLD. Initially he presented to his outpatient PCP early in day on 04/01 for progressive weakness and fatigue. His PCP said he had pneumonia and recommended he go to the ER. We was admitted to [facility] and wasgiven 1.5L fluids before starting levophed and cefepime. CT scan chest, abdomen, pelvis without contrast notable for increase in gallbladder wall thickening with distension and pericholecystic fluid.Biliary stent was in place with no change in biliary duct dilation. There was concern his septic cristi ck was attributable to cholecystitis and may need IR for intervention. Of note, patient did receive 1U PRBC's at outside hospital for hgb 7.7 which then responded appropriately to 8.7. There was concern for possible GI bleed but patient denied any blood in the stool or dark/tarry stool and patient did have bowel movement here that was described as brown in color. Aside from low blood pressure, his hemodynamics have remained appropriate. Per chart review, patient wasto undergo CT C/A/P scheduled for 04/17 to assess for further mets. His chemo is on hold for 6 weeks, he only received 2 rounds of chemo and is due for biliary duct stent exchange scheduled for 04/21/2024. Vital Signs (Most Recent): Pulse: 90 (04/02/24199) BP: 114/70 (04/02/24199) Resp: 23 (04/02/24199) Temp: 36.6 C (97.9 F) (04/02/24129) SpO2: 99 % (04/02/24199) Vital Signs (Last 24 Hours): Pulse Av Min: 90 Max: 92 Most Recent Systolic BP Av.7 mmHg Min: 93 mmHg Max: 114 mmHg Resp Av.7 Min: 20 Max: 25 Most Recent Temperature Av.61 C Min: 36.61 C Max: 36.61 C SpO2 Av.7 % Min: 97 % Max: 100 % Ventilatory Support: O2 flow rate: 2 L/MIN (04/02/24199) IPAP: CPAP/EPAP: Intake & Output Summary (Last 24 hours): No intake or output data in the 24 hours ending 04/01/242222 Net IO: No IO data has been entered for this period [04/01/242222] Height & Weight: Weight: 70.3 kg (154 lb 15.7 oz) (04/02/24129) Wt Readings from Last 3 Encounters: 04/02/24 70.3 kg (154 lb 15.7 oz) 04/01/24 67.4 kg (148 lb 8 oz) 03/23/24 67.1 kg (148 lb) Weight change: Body mass index is 25.01 kg/m. Physical Examination: Physical Exam Constitutional: General: He is awake. He is not in acute distress. Appearance: He is underweight. He is ill-appearing. He is not toxic-appearing. HENT: Head: Normocephalic and atraumatic. Eyes: Extraocular Movements: Extraocular movements intact. Conjunctiva/sclera: Conjunctivae normal. Pupils: Pupils are equal, round, and reactive to light. Cardiovascular: Rate and Rhythm: Normal rate and regular rhythm. No extrasystoles are present. Pulses: Normal pulses and intact distal pulses. Femoral pulses are 2+ on the right side and 2+ on the left side. Dorsalis pedis pulses are 2+ on the right side and 2+ on the left side. Heart sounds: S1 normal and S2 normal. Murmur heard. Harsh midsystolic murmur is present at the upper right sternal border radiating to the neck. Pulmonary: Effort: No tachypnea. Breath sounds: Examination of the left-lower field reveals rhonchi. Rhonchi present. No wheezing orrales. Abdominal: General: Abdomen is protuberant. Bowel sounds are normal. Palpations: Abdomen is soft. Tenderness: There is abdominal tenderness in the right lower quadrant. Negative signs include Rosado's sign. Hernia: No hernia is present. Musculoskeletal: Comments: +2 bilateral lower extremity pitting edema Skin: General: Skin is warm and dry. Capillary Refill: Capillary refill takes 2 to 3 seconds. Coloration: Skin is jaundiced. Neurological: Mental Status: He is alert and oriented to person, place, and time. Mental status is at baseline. GCS: GCS eye subscore is 4. GCS verbal subscore is 5. GCS motor subscore is 6. Sensory: Sensation is intact. Psychiatric: Behavior: Behavior is cooperative. HOSPITAL COURSE (focused): Patient with Hx of metastatic pancreatic CA s/p ERCP with stent placement 12/2023 admitted with septic shock due to Ascending cholangitis in the setting of plastic stent occlusion. [facility] and downgraded on same day. GI was consulted and he underwent ERCP with metal stent placement on 04/02/24. LFTs started improving and had remained stable. Plan to repeat ERCP for stent exchange in approx 6 months by GI. Blood cultures drawn at [facility] grew Streptococcus constellatus and Gram-negative bacilli. Blood cultures drawn at [facility] is negative. ID consulted and recommendations appreciated. Patient completed IV unasyn with end date 04/16/24. PICC line placed on 04/07/24 and removed prior to discharge. Palliative medicine was consulted. GOC discussion held patient wants to continue all medical intervention necessary for recovery. Oncology consulted for metastatic pancreatic cancer, recommended that they will not be offering him chemotherapy while in hospital due to current infection as well as poor performance status, to follow up as outpatient for treatment discussion. GI and General Surgery consulted for imaging findingwith cholecystitis, no active intervention, poor surgical candidate. CT PE obtained on 04/05/2024 inview of increased work of breathing, sinus tachycardia and patient hypercoagulability status- revealed acute pulmonary emboli involving the left posterior segmental and right posterior subsegmental pulmonary arteries, no evidence of right heart strain. Was started on lovenox and transitioned to eliquis. Will need lifelong AC given cancer. Venous Doppler of bilateral lower extremity neg for DVT. Ho spital course complicated with acute hypoxic respiratory failure and respiratory distress requiringHFNC. Likely in setting of PE, CHF exacerbation and deconditioning. Discussed with thoracic medicine who agreed with ongoing management and recommended diuresis. Echo: EF 40%, grade 1 diastolic dysfunction reduced than before. Discussed with cardiology who do not recommend any ischemic evaluation inpatient, recommended aggressive diuresis and followup outpatient in 1 month. Troponin elevation likely type II NSTEMI with infection. No chest pain. After aggressive diuresis able to wean to RA during day and did not qualify for oxygen at nighttime on nocturnal oximetry completed on 04/16-04/17/2024.Diuretic holiday was given due to orthostatic hypotension. Started PO bumex at day of discharge. Patient was hypoglycemic lantus and carbohydrate coverage was discontinued. Glucose improved. Not symptomatic. Patient is to discharge to home with home health on 04/17/2024 in stable condition with Cardiology, Oncology, Palliative medicine, and Infectious disease follow-up as above. Operations & Procedures: s/p ERCP with metal stent placement 04/02/24 Complications: none applicable Significant Lab and Imaging Results: As mentioned above Results Pending at Discharge: Lab Results Pending at Discharge: CULTURE, RESPIRATORY, LOWER, AEROBIC Routine CULTURE, RESPIRATORY, LOWER, AEROBIC Routine DISCHARGE PHYSICAL EXAM: BP 148/75 | Pulse 81 | Temp 36.6 C (97.9 F) (Tympanic) | Resp 20 | Ht 1.676 m (5' 5.98") | Wt 75.1 kg (165 lb 8 oz) | SpO2 99% | BMI 26.73 kg/m | BSA 1.87 m Constitutional: Patient resting comfortably, chronically ill looking, cachectic, in no acute distress HEENT: NC/AT CV: RRR, no murmurs appreciated Chest: diminished bibasilar breath sounds Abdomen: soft, non tender, mild distention Extremities: 1+ pitting edema in B/L LE; stable from prior Skin: warm, dry, intact Neuro: alert, answering questions Psych: normal mood and affect MEDICATION UPDATES AT DISCHARGE START taking these medications INSTRUCTIONS ampicillin-sulbactam IV (AMBULATORY) Commonly known as: Unasyn Administer 3 g intravenously every 6 hours for 2 days. Apixaban 5 MG Tablet Commonly known as: Eliquis Take 1 Tablet by mouth in the morning and 1 Tablet before bedtime. Bumetanide 1 MG Tablet Commonly known as: Bumex Start taking on: April 15, 2024 Take 1 Tablet by mouth in the morning. Metoprolol Tartrate 25 MG Tablet Commonly known as: Lopressor Take 0.5 Tablets by mouth in the morning and 0.5 Tablets before bedtime. Nystatin [id number] UNIT/GM powder Commonly known as: Nystop Apply topically to affected area 2 times a day as needed for Other (fungal rash) for up to 7 days. Apply to groin area CHANGE how you take these medications INSTRUCTIONS oxygen Gas What changed: when to take this additional instructions Administer 2 L/min(Oxygen) into nostril at bedtime. And with naps or if needed for shortness of breath Ranolazine ER 1000 MG Tb12 What changed: Another medication with the same name was removed. Continue taking this medication, and follow the directions you see here. TAKE ONE TABLET BY MOUTH TWICE A DAY CONTINUE taking these medications INSTRUCTIONS Acetaminophen 500 MG Tablet Commonly known as: Tylenol Take 2 Tablets by mouth every 6 hours as needed for Pain, Breakthrough (up to 3000 mg daily (6 tablets)). aspirin 81 MG chewable tablet Take 1 Tablet by mouth at bedtime. diphenhydrAMINE 50 MG Caps Commonly known as: Benadryl Take 1 capsule [address] appt fluticasone 50 MCG/ACT nasal spray Commonly known as: Flonase ADMINISTER ONE SPRAY INTO EACH NOSTRIL DAILY Iron-Vitamin C 65-125 mg per tab 65-125 MG Tablet Commonly known as: Vitron C Take 1 Tablet by mouth every other day. isosorbide mononitrate SA 60 MG Tb24 Commonly known as: Imdur Taking 2 tablets in the morning Lidocaine-Prilocaine 2.5-2.5 % cream Commonly known as: Emla APPLY TO SKIN OVER MEDIPORT & COVER 1HR PRIOR TO ACCESSING. Magic Swizzle (Icvtxyrtd-Ajnhsynd-Qfthsb) oral solution Swish and spit 15 mL in the morning and 15 mL at noon and 15 mL before bedtime. Magnesium Oxide 400 MG Tablet Take 1 Tablet by mouth in the morning and 1 Tablet before bedtime. metFORMIN ER 500 MG Tb24 Commonly known as: Glucophage XR Take 2 Tablets by mouth 2 times a day with morning and evening meals. Multi-Day Tablet Take 1 Tablet by mouth every evening. Nitroglycerin 0.4 MG Subl Commonly known as: Nitrostat One tablet under tongue if needed for chest pain. May repeat 3 times. If chest pain continues, [id number] ondansetron 8 MG Tablet Commonly known as: Zofran Take 1 Tablet by mouth every 8 hours as needed for Nausea. Kanshu Ultra 2 w/Device Kit Use to test blood glucose 4 times daily. DX: E11.9 pantoprazole 20 MG Tbec Commonly known as: Protonix Take 1 Tablet by mouth in the morning. Potassium Chloride ER 10 MEQ Cpcr Take 1 Capsule by mouth in the morning. predniSONE 50 MG Tabs Tablet Commonly known as: Deltasone Take 1 tablet 13 hours, 7 hours, and [address] appt Probiotic Acidophilus BioBeads Capsule Take 1 Cap by mouth daily before breakfast. prochlorperazine 10 MG Tablet Commonly known as: Compazine Take 1 Tablet by mouth every 6 hours as needed for Nausea. tamsulosin 0.4 MG Capsule Commonly known as: Flomax TAKE ONE CAPSULE BY MOUTH TWICE A DAY Vitamin D3 25 MCG (1000 UT) Caps Take 1 Capsule by mouth every evening. STOP taking these medications Atenolol 50 MG Tablet Commonly known as: Tenormin clopidogrel 75 MG Tablet Commonly known as: pLAVix Fluconazole 40 MG/ML suspension Commonly known as: Diflucan Furosemide 40 MG Tablet Commonly known as: Lasix glipiZIDE XL 2.5 MG Tb24 Commonly known as: glipiZIDE XL Imodium A-D 2 MG Tablet Generic drug: Loperamide Vitamin B-12 1000 MCG/ML injection Commonly known as: Cyanocobalamin SCHEDULED FOLLOW-UP: Future Appointments Appt Date/Time Provider Department 04/28/2024 9:30 AM Marimar Del Castillo MD Hematology/Oncology [facility] Outpatient Follow Up CARDIOLOGY REFERRAL OP Other Information Indwelling Devices: LINES ALL Duration Implanted IV Device Right Chest 70 days Power PICC Single Lumen Left;Upper Arm 7 days Vital Signs (last recorded): Most Recent Systolic BP: 123 mmHg (04/14/24 1447) Most Recent Diastolic BP: 62 mmHg (04/14/24 1447) Pulse: 80 (04/14/24 1447) Resp: 17 (04/14/24 1447) Most Recent Temperature: 36.11 C (04/14/24 1447) Weight: 74.3 kg (163 lb 11.2 oz) (04/14/24 0600) SpO2: 100 % (04/14/24 1447) O2 flow rate: 1 L/MIN (04/11/24 2315) Allergies: Iodinated contrast media, Levofloxacin, and Lisinopril Activity: as tolerated Diet: cardiac diet, 1.8L fluid restriction Code Status: No Code Condition on Discharge: stable Isolation status: None Cognition: normal HOSPITAL CONSULTS ORDERED: ADULT PHYSICAL THERAPY CONSULT IP ADULT OCCUPATIONAL THERAPY CONSULT IP CARE MANAGEMENT CONSULT IP GASTROENTEROLOGY CONSULT IP GENERAL SURGERY CONSULT IP PALLIATIVE MEDICINE CONSULT IP INFECTIOUS DISEASE CONSULT IP ONCOLOGY CONSULT IP WOUND/OSTOMY CONSULT IP IV THERAPY CONSULT IP REFERRING PHYSICIAN: REF: SELF [address] ADDRESS AVAILABLE PRIMARY CARE PROVIDER: PCP: DO Dereck Moncada [facility] / [place] [address] (office) [phone] (fax) Note: To contact a physician responsible for this patients hospital care, please call [facility] [phone]. I certify this patient is confined to the home and needs intermittent retirement care, physical therapy and/or speech therapy, or continues to need occupational therapy. The patient is under my care and I have authorized services on this plan of care. The clinical findings of decrease in functional mobility secondary to decreased strength, decreased balance, and decreased endurance due to recent hospitalization and overall medical condition support the need for home health, and the patientdemonstrates a considerable and taxing effort when attempting to leave the home. The patient had a [id number] encounter with an allowed provider type on 04/17/2024 and the encounter was related to the primary reason for home health care. Under situations in which I am an acute/post acute facility physician who will not be following the patient's plan of care, I authorized services on this plan of care and I transfer the patient for plan of care certification to the primary care physician diane who will follow the patient and update the plan of care. Primary care physician Pedro Luis Matute DO I spent a total of 55 minutes coordinating, documenting, and providing care for this patient excluding time spent in the performance of separately billed services. documented in this encounter Discharge Instructions * Discharge Instr - AVS* Ritu Gongora DO - 04/14/2024 10:08 AM EST Discharge Date: 04/17/2024 The information below provides you with the instructions and the list of medications you need to betaking following discharge from the hospital. If you have any questions, please ask before leaving. If you have questions after leaving, you can reach us at the numbers below. YOUR HOSPITAL PROVIDERS: Discharging Provider: Ritu Gongora DO Provider Department: Hospital Medicine To reach this Provider Saturday through Saturday (8:00 AM to 4:30 PM) for any questions or test results: Call [phone] For after-hours concerns: Call [phone] and have your provider paged, or the provider finance consultant for the Department of Hospital Medicine paged. Please note, the discharging provider will not be able to provide you with any medications refills.Please discuss these with your primary care provider. Worsening Symptoms: If you have new symptoms, or your symptoms get worse, please contact your Discharge Provider or Primary Care Provider (PCP). If these providers are not available, you can go to your local [facility] or [facility]gent Care Clinic during their business hours. In an EMERGENCY situation: Call 911 or go to the nearest emergency room. A BRIEF SUMMARY OF YOUR HOSPITAL STAY: You came to the hospital with: septic shock due to ascending cholangitis with plastic stent occlusion. You underwent ERCP and had a stent placed. You were also found to have bacteria in your blood. You completed IV antibiotics with improvement in symptoms. You were also found to have pulmonary emboli for which you should continue systemic anticoagulation indefinitely. Your hospital course was complicated by respiratory failure for which you transiently required oxygen supplementation. Your water pill dose was adjusted with improvement in your symptoms. This can continue to be titrated [facility] as your blood pressure can tolerate. You are to discharge to home with Home health on 04/17/2024. Your main diagnosis at discharge was: septic shock, ascending cholangitis, bacteremia, respiratory failure, heart failure exacerbation Operations & Procedures performed: ERCP with metal stent placement (04/02/2024) Complications: none significant Inpatient test results that are pending at discharge: none Advance Directive Documented: Advance Directive Does the Patient have an Advance Directive? Yes YOUR FOLLOW UP APPOINTMENTS: Primary Care Provider Information: PCP: Pedro Luis Matute DO [id number] [facility] [address] (office) [phone] (fax) An appointment was requested with your PCP (Pedro Luis Matute DO) within 3 days. (Please take this form to this visit with your primary care physician.) Follow up appointment requested with Oncology in 2 weeks Follow up appointment requested with Palliative medicine in 1 week Follow up appointment requested with Infectious disease in 1 month Referral provided for follow up with Cardiology in 1 month You should be contacted to schedule these appointments. You need the following studies in the future: BMP, Mag within 3 days of discharge, prior to PCP appointment INSTRUCTIONS: Diet: Heart healthy diet, 1.8L fluid restriction per day Activity: As tolerated Additional Instructions: - Call your primary care physician or seek medical attention if you develop shortness of breath, chest pain, worsening swelling in your legs, fevers or chills, or any other concerning symptoms. Please START taking the following medications -Eliquis: this is a blood thinner Take 5 mg (1 tablet) twice daily (in the morning and before bedtime). -Bumex: this is a water pill Take 0.5 mg (one tablet) once daily in the morning. This dose can be up-titrated by your Primary care doctor as your blood pressure can tolerate. -Lopressor: this is a heart medication Take 12.5 mg (1/2 tablet) twice daily (in the morning and before bedtime). -Nystatin: this is an antifungal powder Apply topically to affected area twice daily as needed for rash. Please STOP taking the following medications -Atenolol: stopped as Metoprolol was started in its place -Plavix: stopped per Cardiology recommendations -Lasix: stopped as Bumex was started in its place -Glipizide: stopped due to low blood sugars while inpatient Please continue taking all other medications as previously prescribed. documented in this encounter Progress Notes * Ritu Gongora DO - 04/16/2024 7:31 AM EST Images from the original note were not included. [facility] B843/A INTERVAL HISTORY: OVERNIGHT: No acute events overnight. SUBJECTIVE: Patient seen and examined at bedside this morning. Denies any complaints at this time and states that he is feeling well. He denies any chest pain, shortness of breath, palpitations, fevers or chills, or any other concerns. Last day of IV antibiotics today; plan for discharge likely tomorrow to home. Objective Physical Exam Most Recent Vital Signs: BP: 125 mmHg/63 mmHg (04/16/24615) Pulse: 81 (04/16/24615) Resp: 18 (04/16/24615) Temp: 36 C (04/16/24615) Temp Summary: Temp Min: 36 C (96.8 F) Max: 36.8 C (98.3 F) SpO2: 98 % (04/16/24615) O2 flow rate: 1 L/MIN (04/11/24 2315) Supplemental O2 Delivery: Room Air, None (04/16/24615) BP 125/63 | Pulse 81 | Temp 36 C (96.8 F) (Tympanic) | Resp 18 | Ht 1.676 m (5' 5.98") | Wt 73.3 kg (161 lb 8 oz) | SpO2 98% | BMI 26.08 kg/m | BSA 1.85 m Constitutional: Chronically ill-appearing male, resting comfortably in bed, cachectic, in no acute distress HEENT: NC/AT CV: RRR, no murmurs appreciated Chest: diminished bibasilar breath sounds Abdomen: soft, non tender, non distended, +BS Extremities: 1+ pitting edema in B/L LE; trace upper extremity B/L Skin: warm, dry, intact Neuro: alert, answering questions Psych: normal mood and affect Implanted IV Device Right Chest (Active) Number of days: 73 Power PICC Single Lumen Left;Upper Arm (Active) Number of days: 9 STUDIES: Encounter Orders Labs and other studies reviewed with pertinent findings noted below: Lab results within last 7 days (see chart for full results) Units 04/16/24 0655 04/14/24 0550 04/13/24 0345 SODIUM mmol/L 130* 133* 135 POTASSIUM mmol/L 4.3 4.0 4.0 CHLORIDE mmol/L 99 99 101 CO2 mmol/L 25 BUN mg/dL 15 15 16 CREATININE mg/dL 0.7 0.6 0.7 Lab results within last 7 days (see chart for full results) Units 04/16/24 0655 04/13/24 0345 04/12/24 0524 HGB g/dL 9.3* 8.0* 8.2* HCT % 28.8* 25.0* 26.1* WBC K/uL 8.66 8.36 8.93 PLT K/uL 197 168 151 Assessment and Plan IMPRESSION : Active Problems: 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) BPH (benign prostatic hyperplasia) HTN, goal below 140/90 Coronary artery disease of [place] artery of [place] heart with stable angina pectoris (HCC) Gastroesophageal reflux disease without esophagitis 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) Goals of care, counseling/discussion Palliative care encounter Hyponatremia Sepsis due to Streptococcus species without acute organ dysfunction (HCC) Resolved Problems: Acute cholecystitis Sepsis without acute organ dysfunction (HCC) Pneumonia of right upper lobe due to infectious organism Acute hypoxic respiratory failure (HCC) DIFFERENTIAL AND PLAN: Septic shock, shock resolved Ascending cholangitis 2/2 plastic stent occlusion Deranged LFTs Hx met pancreatic CA s/p ERCP with stent placement 12/2023 Acute hypoxic Respiratory Failure likely in setting of PNA, CHF exacerbation, PE RUL PNA (on CXR), deconditioning Acute pulmonary embolism Fever resolved - transfer from [facility] on 04/02/24 - to ICU and downgraded on same day - GI consulted s/p ERCP with metal stent placement 04/02/24 - LFTs improving stable - plan to repeat ERCP for stent exchange in approx 6 months by GI - blood cultures drawn at [facility] grew Streptococcus constellatus and Gram-negative bacilli. Blood cultures drawn at [facility] is negative so far -ID consulted and recommendations appreciated - continue iv unasyn with end date 04/16/24. PICC line placed on 04/07/24 - palliative following -GOC discussion-patient wants to continue all medical intervention necessary for recovery -Oncology consulted for metastatic pancreatic cancer,recommended that they will not be offering himchemotherapy while in hospital due to current infection as well as poor performance status, to follow up as outpatient for treatment discussion. - GI and General Surgery consulted for imaging binding with cholecystitis, no active intervention, poor surgical candidate - CTPE obtained on 04/05/2024 in view of increased work of breathing, sinus tachycardia and patienthypercoagulability status- revealed acute pulmonary emboli involving the left posterior segmental and right posterior subsegmental pulmonary arteries, no evidence of right heart strain. Was started on lovenox and transitioned to eliquis. Had discussion about choice of PO AC patient prefers eliquis over coumadin(eliquis cost 144$ per month but he is willing to pay). Will need lifelong AC given cancer (pharmacy recommend eliquis 5mg BID only not loading dose of eliquis as he has completed therapeutic dose with lovenox) - Venous Doppler of bilateral lower extremity neg for DVT - Discussed with thoracic medicine who agree with ongoing management and recommended diuresis. Discussed with cardiology who do not recommend any ischemic evaluation inpatient, recommended aggressivediuresis and followup outpatient in 1 month -Improved orthostatic hypotension -start PO bumex t1mg daily, titrate based on volume status, cautious with risk of orthostatic hypotension - PT/OT - respiratory patient driven protocol, IS and flutter -leukocytosis resolved Elevated Troponin, likely demand ischemia Combined systolic and diastolic CHF Troponin 580>>533 EKG showing no new ischemic changes Echo: EF 40%, grade 1 diastolic dysfunction Primary team previously Discussed with Cardiology team via TT, suggested no further trending of troponin needed and no active intervention at this point Patient on DAPT previously, he was told by primary oil gas and pipe tester potenitally plavix can be stopped and aspirin should be continued, discussed with inpatient cardiology who recommended same, last cardiac stent 2009 NURSING PROGRAM MANAGER imdur held today due to orthostatic hypotension, resume tomorrow as able NURSING PROGRAM MANAGER ranolazine Patient at increased risk of myopathy with lipitor, lipitor was discontinued outpatient Noc ox positive need nocturnal 2L oxygen --> will repeat tonight prior to probable discharge tomorrow 04/17 Hyponatremia Likely multifactorial, hypervolemic /siadh with malignancy, poor solute intake Hypokalemia-resolved Sodium stable Urine sodium <20 Monitor BMP Hypoglycemia T2DM Hypoglycemia precautions Stop lanus and CHO Continue [employer] NURSING PROGRAM MANAGER metformin and glipizide Chronic medical conditions BPH - continue flomax CAD - continue asa GERD - continue protonix Remains medically ready for discharge -- plan to stay inpatient pending completion of IV antibiotics with subsequent PICC removal. Probable discharge to home tomorrow 04/17/2024. Patient is home boundand would benefit from Home health services. PHARMACOLOGIC VTE PROPHYLAXIS: eliquis CODE STATUS: No Code EXPECTED DISCHARGE DATE: 04/17/2024 I spent a total of 40 minutes coordinating, documenting, and providing care for this patient excluding time spent in the performance of separately billed services or time spent by another provider/QHP. * Ritu Gongora DO - 04/15/2024 4:39 PM EST Images from the original note were not included. [facility] B843/A INTERVAL HISTORY: OVERNIGHT: No acute events overnight. SUBJECTIVE: Patient seen and examined at bedside this morning. Denies any complaints at this time and states that he is feeling well. He denies any chest pain, shortness of breath, palpitations, fevers or chills, or any other concerns. Is accompanied by his son who was updated on plan of care. Objective Physical Exam Most Recent Vital Signs: BP: 119 mmHg/86 mmHg (04/15/24 1535) Pulse: 72 (04/15/24 1535) Resp: 20 (04/15/24 153) Temp: 36.83 C (04/15/241534) Temp Summary: Temp Min: 36 C (96.8 F) Max: 36.8 C (98.3 F) SpO2: 100 % (04/15/24 153) O2 flow rate: 1 L/MIN (04/11/24 2315) Supplemental O2 Delivery: Room Air, None (04/15/24 1535) BP 119/86 | Pulse 72 | Temp 36.8 C (98.3 F) (Tympanic) | Resp 20 | Ht 1.676 m (5' 5.98") | Wt 76 kg (167 lb 8.8 oz) | SpO2 100% | BMI 27.06 kg/m | BSA 1.88 m Constitutional: Patient resting comfortably, chronically ill looking, cachectic, in no acute distress HEENT: NC/AT CV: RRR, no murmurs appreciated Chest: diminished bibasilar breath sounds Abdomen: soft, non tender, non distended, +BS Extremities: 1+ pitting edema in B/L LE; trace upper extremity B/L Skin: warm, dry, intact Neuro: alert, answering questions Psych: normal mood and affect Implanted IV Device Right Chest (Active) Number of days: 72 Power PICC Single Lumen Left;Upper Arm (Active) Number of days: 8 STUDIES: Encounter Orders Labs and other studies reviewed with pertinent findings noted below: Lab results within last 7 days (see chart for full results) Units 04/14/24 0550 04/13/24 0345 04/12/24 1943 SODIUM mmol/L 133* 135 135 POTASSIUM mmol/L 4.0 4.0 4.8 CHLORIDE mmol/L 99 101 100 CO2 mmol/L 23 25 25 BUN mg/dL 15 16 16 CREATININE mg/dL 0.6 0.7 0.7 Lab results within last 7 days (see chart for full results) Units 04/13/24 0345 04/12/24 0524 04/11/24 0335 HGB g/dL 8.0* 8.2* 8.7* HCT % 25.0* 26.1* 27.6* WBC K/uL 8.36 8.93 12.83* PLT K/uL 168 151 151 Assessment and Plan IMPRESSION : Active Problems: 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) BPH (benign prostatic hyperplasia) HTN, goal below 140/90 Coronary artery disease of [place] artery of [place] heart with stable angina pectoris (HCC) Gastroesophageal reflux disease without esophagitis 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) Goals of care, counseling/discussion Palliative care encounter Hyponatremia Resolved Problems: Acute cholecystitis Sepsis without acute organ dysfunction (HCC) Pneumonia of right upper lobe due to infectious organism Acute hypoxic respiratory failure (HCC) DIFFERENTIAL AND PLAN: Septic shock, shock resolved Ascending cholangitis 2/2 plastic stent occlusion Deranged LFTs Hx met pancreatic CA s/p ERCP with stent placement 12/2023 Acute hypoxic Respiratory Failure likely in setting of PNA, CHF exacerbation, PE RUL PNA (on CXR), deconditioning Acute pulmonary embolism Fever resolved - transfer from [facility] on 04/02/24 - to ICU and downgraded on same day - GI consulted s/p ERCP with metal stent placement 04/02/24 - LFTs improving stable - plan to repeat ERCP for stent exchange in approx 6 months by GI - blood cultures drawn at [facility] grew Streptococcus constellatus and Gram-negative bacilli. Blood cultures drawn at [facility] is negative so far -ID consulted and recommendations appreciated - continue iv unasyn with end date 04/16/24. PICC line placed on 04/07/24 - palliative following -GOC discussion-patient wants to continue all medical intervention necessary for recovery -Oncology consulted for metastatic pancreatic cancer,recommended that they will not be offering himchemotherapy while in hospital due to current infection as well as poor performance status, to follow up as outpatient for treatment discussion. - GI and General Surgery consulted for imaging binding with cholecystitis, no active intervention, poor surgical candidate - CTPE obtained on 04/05/2024 in view of increased work of breathing, sinus tachycardia and patienthypercoagulability status- revealed acute pulmonary emboli involving the left posterior segmental and right posterior subsegmental pulmonary arteries, no evidence of right heart strain. Was started on lovenox and transitioned to eliquis. Had discussion about choice of PO AC patient prefers eliquis over coumadin(eliquis cost 144$ per month but he is willing to pay). Will need lifelong AC given cancer (pharmacy recommend eliquis 5mg BID only not loading dose of eliquis as he has completed therapeutic dose with lovenox) - Venous Doppler of bilateral lower extremity neg for DVT - Discussed with thoracic medicine who agree with ongoing management and recommended diuresis. Discussed with cardiology who do not recommend any ischemic evaluation inpatient, recommended aggressivediuresis and followup outpatient in 1 month -Improved orthostatic hypotension -start PO bumex t1mg daily, titrate based on volume status, cautious with risk of orthostatic hypotension - PT/OT - respiratory patient driven protocol, IS and flutter -leukocytosis resolved Elevated Troponin, likely demand ischemia Combined systolic and diastolic CHF Troponin 580>>533 EKG showing no new ischemic changes Echo: EF 40%, grade 1 diastolic dysfunction Primary team previously Discussed with Cardiology team via TT, suggested no further trending of troponin needed and no active intervention at this point Patient on DAPT previously, he was told by primary oil gas and pipe tester potenitally plavix can be stopped and aspirin should be continued, discussed with inpatient cardiology who recommended same, last cardiac stent 2009 NURSING PROGRAM MANAGER imdur held today due to orthostatic hypotension, resume tomorrow as able NURSING PROGRAM MANAGER ranolazine Patient at increased risk of myopathy with lipitor, lipitor was discontinued outpatient Noc ox positive need nocturnal 2L oxygen Hyponatremia Likely multifactorial, hypervolemic /siadh with malignancy, poor solute intake Hypokalemia-resolved Sodium stable Urine sodium <20 Monitor BMP Hypoglycemia T2DM Hypoglycemia precautions Stop lanus and CHO Continue [employer] NURSING PROGRAM MANAGER metformin and glipizide Chronic medical conditions BPH - continue flomax CAD - continue asa GERD - continue protonix Remains medically ready for discharge -- likely to stay inpatient pending completion of IV antibiotics due to authorization timeline for SNF/rehab stay. PHARMACOLOGIC VTE PROPHYLAXIS: eliquis CODE STATUS: No Code EXPECTED DISCHARGE DATE: 04/17/2024 I spent a total of 45 minutes coordinating, documenting, and providing care for this patient excluding time spent in the performance of separately billed services or time spent by another provider/QHP. * John Villarreal MD - 04/14/2024 4:24 PM EST Images from the original note were not included. [facility] B843/A INTERVAL HISTORY: OVERNIGHT: No acute events overnight SUBJECTIVE: Patient seen and examined at bedside Asymptomatic hypoglycemia this am likely related to insulin use. Stopped lantus and carbohydrate coverage Glucose improved to 134 No complains On RA No new symptoms SNF only able to take him tomorrow so discharge postponed for tomorrow Objective Physical Exam Most Recent Vital Signs: BP: 123 mmHg/62 mmHg (04/14/24 1447) Pulse: 80 (04/14/24 1447) Resp: 17 (04/14/24 1447) Temp: 36.11 C (04/14/24 1447) Temp Summary: Temp Min: 36.1 C (97 F) Max: 36.8 C (98.3 F) SpO2: 100 % (04/14/24 1447) O2 flow rate: 1 L/MIN (04/11/24 2075) Supplemental O2 Delivery: Room Air, None (04/14/24 144) BP 123/62 | Pulse 80 | Temp 36.1 C (97 F) (Tympanic) | Resp 17 | Ht 1.676 m (5' 5.98") | Wt 74.3 kg (163 lb 11.2 oz) | SpO2 100% | BMI 26.43 kg/m | BSA 1.86 m Constitutional: Patient sitting in bed , chronically ill looking, cachectic HEENT: atraumatic, moist mucous membrane, mediport site clean CV: normal heart sounds, normal rate and rhythm, no murmurs Chest: minimal crackles at left lung bases Abdomen: soft, non tender, non distended, +BS Extremities: pitting edema trace upper extremity b/l and 1+ in LE b/l, no cyanosis, picc site, clean, no erythema or discharge Skin: warm, dry, intact Neuro: alert, answering questions Psych: normal mood and affect Implanted IV Device Right Chest (Active) Number of days: 71 Power PICC Single Lumen Left;Upper Arm (Active) Number of days: 7 STUDIES: Encounter Orders Labs and other studies reviewed with pertinent findings noted below: Latest Reference Range & Units 04/14/24 05:50 04/14/24 07:32 04/14/24 08:39 04/14/24 11:37 SODIUM 135 - 146 mmol/L 133 (L) POTASSIUM 3.5 - 5.1 mmol/L 4.0 CHLORIDE 98 - 107 mmol/L 99 CO2 22 - 32 mmol/L 23 BUN 6 - 20 mg/dL 15 CREATININE 0.6 - 1.2 mg/dL 0.6 EGFR >=60 mL/min >90 ANION GAP 7 - 15 mmol/L 11 GLUCOSE 70 - 120 mg/dL 61 (L) CALCIUM 8.4 - 10.2 mg/dL 8.7 GLUCOSE - POCT 70 - 120 mg/dL 58 (L) 107 134 (H) (L): Data is abnormally low (H): Data is abnormally high Assessment and Plan IMPRESSION : Active Problems: 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 * DIFFERENTIAL AND PLAN: Septic shock, shock resolved Ascending cholangitis 2/2 plastic stent occlusion Deranged LFTs Hx met pancreatic CA s/p ERCP with stent placement 12/2023 Acute hypoxic Respiratory Failure likely in setting of PNA, CHF exacerbation, PE RUL PNA (on CXR), deconditioning Acute pulmonary embolism Fever resolved - transfer from [facility] on 04/02/24 - to ICU and downgraded on same day - GI consulted s/p ERCP with metal stent placement 04/02/24 - LFTs improving stable - plan to repeat ERCP for stent exchange in approx 6 months by GI - blood cultures drawn at [facility] grew Streptococcus constellatus and Gram-negative bacilli. Blood cultures drawn at [facility] is negative so far -ID consulted and recommendations appreciated - continue iv unasyn with end date 04/16/24. PICC line placed on 04/07/24 - palliative following -GOC discussion-patient wants to continue all medical intervention necessary for recovery -Oncology consulted for metastatic pancreatic cancer,recommended that they will not be offering himchemotherapy while in hospital due to current infection as well as poor performance status, to follow up as outpatient for treatment discussion. - GI and General Surgery consulted for imaging binding with cholecystitis, no active intervention, poor surgical candidate - CTPE obtained on 04/05/2024 in view of increased work of breathing, sinus tachycardia and patienthypercoagulability status- revealed acute pulmonary emboli involving the left posterior segmental and right posterior subsegmental pulmonary arteries, no evidence of right heart strain. Was started on lovenox and transitioned to eliquis. Had discussion about choice of PO AC patient prefers eliquis over coumadin(eliquis cost 144$ per month but he is willing to pay). Will need lifelong AC given cancer (pharmacy recommend eliquis 5mg BID only not loading dose of eliquis as he has completed therapeutic dose with lovenox) - Venous Doppler of bilateral lower extremity neg for DVT - Discussed with thoracic medicine who agree with ongoing management and recommended diuresis. Discussed with cardiology who do not recommend any ischemic evaluation inpatient, recommended aggressivediuresis and followup outpatient in 1 month -Improved orthostatic hypotension -start PO bumex t1mg daily, titrate based on volume status, cautious with risk of orthostatic hypotension - PT/OT - respiratory patient driven protocol, IS and flutter -leukocytosis resolved Elevated Troponin, likely demand ischemia Combined systolic and diastolic CHF Troponin 580>>533 EKG showing no new ischemic changes Echo: EF 40%, grade 1 diastolic dysfunction Primary team previously Discussed with Cardiology team via TT, suggested no further trending of troponin needed and no active intervention at this point Patient on DAPT previously, he was told by primary oil gas and pipe tester potenitally plavix can be stopped and aspirin should be continued, discussed with inpatient cardiology who recommended same, last cardiac stent 2009 NURSING PROGRAM MANAGER imdur held today due to orthostatic hypotension, resume tomorrow as able NURSING PROGRAM MANAGER ranolazine Patient at increased risk of myopathy with lipitor, lipitor was discontinued outpatient Noc ox positive need nocturnal 2L oxygen Hyponatremia Likely multifactorial, hypervolemic /siadh with malignancy, poor solute intake Hypokalemia-resolved Sodium stable Urine sodium <20 Monitor BMP Hypoglycemia T2DM Hypoglycemia precautions Stop lanus and CHO Continue [employer] NURSING PROGRAM MANAGER metformin and glipizide Chronic medical conditions BPH - continue flomax CAD - continue asa GERD - continue protonix Medically ready for discharge PHARMACOLOGIC VTE PROPHYLAXIS: eliquis CODE STATUS: No Code EXPECTED DISCHARGE DATE: 04/15/2024 I spent a total of 45 minutes coordinating, documenting, and providing care for this patient excluding time spent in the performance of separately billed services or time spent by another provider/QHP. * John Villarreal MD - 04/13/2024 2:22 PM EST Images from the original note were not included. [facility] B843/A INTERVAL HISTORY: OVERNIGHT: No acute events overnight SUBJECTIVE: Patient seen and examined at bedside Feeling well, eager to get discharged to SNF Orthostatic vitals still positive but improving Supine 149/72, Sitting 122/67 sitting and standing 91/51 Denies dyspnea, chest pain On RA No complains Objective Physical Exam Most Recent Vital Signs: BP: 91 mmHg/51 mmHg (04/13/24 1101) Pulse: 85 (04/13/24 1116) Resp: 18 (04/13/24 0601) Temp: 36.22 C (04/13/24 1116) Temp Summary: Temp Min: 36.2 C (97.2 F) Max: 36.7 C (98.1 F) SpO2: 99 % (04/13/24 1116) O2 flow rate: 1 L/MIN (04/11/24 2315) Supplemental O2 Delivery: Room Air, None (04/13/24 06) BP 91/51 | Pulse 85 | Temp 36.2 C (97.2 F) (Tympanic) | Resp 18 | Ht 1.676 m (5' 5.98") | Wt 73.2 kg (161 lb 6.4 oz) | SpO2 99% | BMI 26.06 kg/m | BSA 1.85 m Constitutional: Patient sitting in bed , chronically ill looking, cachectic HEENT: atraumatic, moist mucous membrane, mediport site clean CV: normal heart sounds, normal rate and rhythm, no murmurs Chest: minimal crackles at left lung bases Abdomen: soft, non tender, non distended, +BS Extremities: pitting edema trace upper extremity b/l and 1+ in LE b/l, no cyanosis, picc site, clean, no erythema or discharge Skin: warm, dry, intact Neuro: alert, answering questions Psych: normal mood and affect Implanted IV Device Right Chest (Active) Number of days: 70 Power PICC Single Lumen Left;Upper Arm (Active) Number of days: 6 STUDIES: Encounter Orders Labs and other studies reviewed with pertinent findings noted below: Latest Reference Range & Units 04/13/24 03:45 SODIUM 135 - 146 mmol/L 135 POTASSIUM 3.5 - 5.1 mmol/L 4.0 CHLORIDE 98 - 107 mmol/L 101 CO2 22 - 32 mmol/L 25 BUN 6 - 20 mg/dL 16 CREATININE 0.6 - 1.2 mg/dL 0.7 EGFR >=60 mL/min >90 ANION GAP 7 - 15 mmol/L 9 GLUCOSE 70 - 120 mg/dL 75 CALCIUM 8.4 - 10.2 mg/dL 8.3 (L) Magnesium 1.5 - 2.6 mg/dL 1.9 Protein 6.0 - 8.3 g/dL 5.5 (L) CBC Rpt ! 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 * DIFFERENTIAL AND PLAN: Septic shock, shock resolved Ascending cholangitis 2/2 plastic stent occlusion Deranged LFTs Hx met pancreatic CA s/p ERCP with stent placement 12/2023 Acute hypoxic Respiratory Failure likely in setting of PNA, CHF exacerbation, PE RUL PNA (on CXR), deconditioning Acute pulmonary embolism Fever resolved - transfer from [facility] on 04/02/24 - to ICU and downgraded on same day - GI consulted s/p ERCP with metal stent placement 04/02/24 - LFTs improving stable - plan to repeat ERCP for stent exchange in approx 6 months by GI - blood cultures drawn at [facility] grew Streptococcus constellatus and Gram-negative bacilli. Blood cultures drawn at [facility] is negative so far -ID consulted and recommendations appreciated - continue iv unasyn with end date 04/16/24. PICC line placed on 04/07/24 - palliative following -GOC discussion-patient wants to continue all medical intervention necessary for recovery -Oncology consulted for metastatic pancreatic cancer,recommended that they will not be offering himchemotherapy while in hospital due to current infection as well as poor performance status, to follow up as outpatient for treatment discussion. - GI and General Surgery consulted for imaging binding with cholecystitis, no active intervention, poor surgical candidate - CTPE obtained on 04/05/2024 in view of increased work of breathing, sinus tachycardia and patienthypercoagulability status- revealed acute pulmonary emboli involving the left posterior segmental and right posterior subsegmental pulmonary arteries, no evidence of right heart strain. Was started on lovenox and transitioned to eliquis. Had discussion about choice of PO AC patient prefers eliquis over coumadin(eliquis cost 144$ per month but he is willing to pay). Will need lifelong AC given cancer (pharmacy recommend eliquis 5mg BID only not loading dose of eliquis as he has completed therapeutic dose with lovenox) - Venous Doppler of bilateral lower extremity neg for DVT - Discussed with thoracic medicine who agree with ongoing management and recommended diuresis. Discussed with cardiology who do not recommend any ischemic evaluation inpatient, recommended aggressivediuresis and followup outpatient in 1 month -Diuretic holiday today given orthostatic hypotension -start PO bumex tomorrow as tolerated - PT/OT - respiratory patient driven protocol, IS and flutter -leukocytosis resolved Elevated Troponin, likely demand ischemia Combined systolic and diastolic CHF Troponin 580>>533 EKG showing no new ischemic changes Echo: EF 40%, grade 1 diastolic dysfunction Primary team previously Discussed with Cardiology team via TT, suggested no further trending of troponin needed and no active intervention at this point Patient on DAPT previously, he was told by primary oil gas and pipe tester potenitally plavix can be stopped and aspirin should be continued, discussed with inpatient cardiology who recommended same, last cardiac stent 2009 NURSING PROGRAM MANAGER imdur held today due to orthostatic hypotension, resume tomorrow as able NURSING PROGRAM MANAGER ranolazine Patient at increased risk of myopathy with lipitor, lipitor was discontinued outpatient Noc ox positive need nocturnal 2L oxygen Hyponatremia resolved Likely multifactorial, hypervolemic /siadh with malignancy, poor solute intake Hypokalemia-resolved Sodium stable Urine sodium <20 Monitor BMP Chronic medical conditions T2DM - hold NURSING PROGRAM MANAGER medications, MDSSI, Lantus 10 units hs and carb coverage 1:15 BPH - continue flomax CAD - continue asa GERD - continue protonix CM assisting with SNF/rehab placement, anticipate medically ready tomorrow for discharge PHARMACOLOGIC VTE PROPHYLAXIS: eliquis CODE STATUS: No Code EXPECTED DISCHARGE DATE: No information available I spent a total of 45 minutes coordinating, documenting, and providing care for this patient excluding time spent in the performance of separately billed services or time spent by another provider/QHP. * John Villarreal MD - 04/12/2024 10:36 AM EST Images from the original note were not included. [facility] B843/A INTERVAL HISTORY: OVERNIGHT: No acute events overnight SUBJECTIVE: Patient seen and examined at bedside No dyspnea, chest pain On RA saturating 100% Net neg 2L yesterday, good response with bumex No fever Objective Physical Exam Most Recent Vital Signs: BP: 121 mmHg/73 mmHg (04/12/24614) Pulse: 70 (04/12/24614) Resp: 18 (04/12/24614) Temp: 37 C (04/12/24614) Temp Summary: Temp Min: 36.4 C (97.6 F) Max: 37 C (98.6 F) SpO2: 100 % (04/12/24614) O2 flow rate: 1 L/MIN (04/11/24 4293) Supplemental O2 Delivery: Room Air, None (04/12/24 0826) BP 121/73 | Pulse 70 | Temp 37 C (98.6 F) (Tympanic) | Resp 18 | Ht 1.676 m (5' 5.98") | Wt 72.4 kg (159 lb 9.6 oz) | SpO2 100% | BMI 25.77 kg/m | BSA 1.84 m Constitutional: Patient sitting in chair , chronically ill looking, cachectic HEENT: atraumatic, moist mucous membrane, mediport site clean CV: normal heart sounds, normal rate and rhythm, no murmurs Chest: lung clear to ausculatation, no wheezes Abdomen: soft, non tender, non distended, +BS Extremities: pitting edema trace upper extremity b/l and 1+ in LE b/l, no cyanosis, picc site, clean, no erythema or discharge Skin: warm, dry, intact Neuro: alert, answering questions Psych: normal mood and affect Implanted IV Device Right Chest (Active) Number of days: 69 Power PICC Single Lumen Left;Upper Arm (Active) Number of days: 5 STUDIES: Encounter Orders Labs and other studies reviewed with pertinent findings noted below: Latest Reference Range & Units 04/12/24 05:24 SODIUM 135 - 146 mmol/L 136 POTASSIUM 3.5 - 5.1 mmol/L 3.8 CHLORIDE 98 - 107 mmol/L 101 CO2 22 - 32 mmol/L 26 BUN 6 - 20 mg/dL 16 CREATININE 0.6 - 1.2 mg/dL 0.7 EGFR >=60 mL/min >90 ANION GAP 7 - 15 mmol/L 9 GLUCOSE 70 - 120 mg/dL 124 (H) CALCIUM 8.4 - 10.2 mg/dL 8.1 (L) Magnesium 1.5 - 2.6 mg/dL 2.1 Protein 6.0 - 8.3 g/dL 5.3 (L) CBC Rpt ! WBC 4.00 - 10.80 K/uL 8.93 RBC 4.50 - 5.25 M/uL 2.92 HGB 14.0 - 16.8 g/dL 8.2 (L) HCT 40.0 - 48.4 % 26.1 (L) MCV 82.0 - 99.5 fL 89.4 MCH 27.0 - 34.0 pg 28.1 MCHC 32.0 - 36.0 g/dL 31.4 RDW 11.5 - 15.5 % 19.6 PLT 140 - 400 K/uL 151 MPV 6.6 - 11.1 fL 10.4 Albumin 3.8 - 5.0 g/dL 2.3 (L) AST 10 - 50 U/L 38 ALT 10 - 50 U/L 31 Alkaline Phosphatase 35 - 130 U/L 522 (H) Bilirubin, Total <=1.2 mg/dL 0.9 Bilirubin, Direct 0.0 - 0.3 mg/dL 0.6 (H) (H): Data is abnormally high (L): Data is abnormally low !: Data is abnormal Rpt: View report in Results Review for more information Assessment and Plan IMPRESSION : Active Problems: 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 * DIFFERENTIAL AND PLAN: Septic shock, shock resolved Ascending cholangitis 2/2 plastic stent occlusion Deranged LFTs Hx met pancreatic CA s/p ERCP with stent placement 12/2023 Acute hypoxic Respiratory Failure likely in setting of PNA, CHF exacerbation, PE RUL PNA (on CXR), deconditioning Acute pulmonary embolism Fever resolved - transfer from [facility] on 04/02/24 - to ICU and downgraded on same day - GI consulted s/p ERCP with metal stent placement 04/02/24 - LFTs improving stable - plan to repeat ERCP for stent exchange in approx 6 months by GI - blood cultures drawn at [facility] grew Streptococcus constellatus and Gram-negative bacilli. Blood cultures drawn at [facility] is negative so far -ID consulted and recommendations appreciated - continue iv unasyn with end date 04/16/24. PICC line placed on 04/07/24 - palliative following -GOC discussion-patient wants to continue all medical intervention necessary for recovery -Oncology consulted for metastatic pancreatic cancer,recommended that they will not be offering himchemotherapy while in hospital due to current infection as well as poor performance status, to follow up as outpatient for treatment discussion. - GI and General Surgery consulted for imaging binding with cholecystitis, no active intervention, poor surgical candidate - CTPE obtained on 04/05/2024 in view of increased work of breathing, sinus tachycardia and patienthypercoagulability status- revealed acute pulmonary emboli involving the left posterior segmental and right posterior subsegmental pulmonary arteries, no evidence of right heart strain. Continue therapeutic lovenox, transition to DOAC tomorrow if insurance covers. Had discussion about choice of PO AC patient prefers eliquis over coumadin. Will need lifelong AC given cancer - Venous Doppler of bilateral lower extremity neg for DVT - Discussed with thoracic medicine who agree with ongoing management and recommended diuresis. Discussed with cardiology who do not recommend any ischemic evaluation inpatient, recommended aggressivediuresis and followup outpatient in 1 month -continue bumex 2mg IV BID, goal net neg 2-3L/day, monitor urine output closely, transition to PO bumex tomorrow - PT/OT - respiratory patient driven protocol, IS and flutter -leukocytosis resolved Elevated Troponin, likely demand ischemia Combined systolic and diastolic CHF Troponin 580>>533 EKG showing no new ischemic changes Echo: EF 40%, grade 1 diastolic dysfunction Primary team previously Discussed with Cardiology team via TT, suggested no further trending of troponin needed and no active intervention at this point Patient on DAPT previously, he was told by primary oil gas and pipe tester potenitally plavix can be stopped and aspirin should be continued, discussed with inpatient cardiology who recommended same, last cardiac stent 2009 NURSING PROGRAM MANAGER imdur NURSING PROGRAM MANAGER ranolazine Patient at increased risk of myopathy with lipitor, lipitor was discontinued outpatient Hyponatremia resolved Likely multifactorial, hypervolemic /siadh with malignancy, poor solute intake Hypokalemia-resolved Sodium stable Urine sodium <20 Monitor BMP Chronic medical conditions T2DM - hold NURSING PROGRAM MANAGER medications, MDSSI, Lantus 10 units hs and carb coverage 1:15 BPH - continue flomax CAD - continue asa GERD - continue protonix CM assisting with SNF/rehab placement, anticipate medically ready tomorrow for discharge PHARMACOLOGIC VTE PROPHYLAXIS: lovenox CODE STATUS: No Code EXPECTED DISCHARGE DATE: No information available I spent a total of 45 minutes coordinating, documenting, and providing care for this patient excluding time spent in the performance of separately billed services or time spent by another provider/QHP. * John Villarreal MD - 04/11/2024 12:31 PM EST Images from the original note were not included. [facility] B843/A INTERVAL HISTORY: OVERNIGHT: No acute events overnight SUBJECTIVE: Patient seen and examined at bedside Symptoms have improved Denies dyspnea, chest pain today On 2L oxygen and saturating 100% Having good urine output with bumex 2.9L urine output yesterday and 1500ml since midnight He had one episode overnight one time where he had dyspnea but he says he stayed calm and that passed. He thinks it could be panic attack. Advised to tell nurse and take deep full breaths if that happens again Objective Physical Exam Most Recent Vital Signs: BP: 122 mmHg/59 mmHg (04/11/241127) Pulse: 61 (04/11/241127) Resp: 18 (04/11/241127) Temp: 36.5 C (04/11/241127) Temp Summary: Temp Min: 36.5 C (97.7 F) Max: 37.5 C (99.5 F) SpO2: 100 % (04/11/241127) O2 flow rate: 2 L/MIN (04/11/241127) Supplemental O2 Delivery: Nasal Cannula (04/11/241127) BP 122/59 | Pulse 61 | Temp 36.5 C (97.7 F) (Tympanic) | Resp 18 | Ht 1.676 m (5' 5.98") | Wt 73.9 kg (163 lb) | SpO2 100% | BMI 26.32 kg/m | BSA 1.85 m Constitutional: Patient sitting in chair , chronically ill looking, cachectic HEENT: atraumatic, moist mucous membrane, NC in place, mediport site clean, non tender CV: normal heart sounds, normal rate and rhythm, no murmurs Chest: lung clear to ausculatation, no wheezes Abdomen: soft, non tender, non distended, +BS Extremities: pitting edema 1+ in upper extremity b/l and 1+ in LE b/l, no cyanosis, picc site, clean, no erythema or discharge Skin: warm, dry, intact Neuro: alert, answering questions Psych: normal mood and affect Implanted IV Device Right Chest (Active) Number of days: 68 Power PICC Single Lumen Left;Upper Arm (Active) Number of days: 4 STUDIES: Encounter Orders Labs and other studies reviewed with pertinent findings noted below: Latest Reference Range & Units 04/11/24 03:35 SODIUM 135 - 146 mmol/L 133 (L) POTASSIUM 3.5 - 5.1 mmol/L 3.8 CHLORIDE 98 - 107 mmol/L 99 CO2 22 - 32 mmol/L 23 BUN 6 - 20 mg/dL 15 CREATININE 0.6 - 1.2 mg/dL 0.6 EGFR >=60 mL/min >90 ANION GAP 7 - 15 mmol/L 11 GLUCOSE 70 - 120 mg/dL 139 (H) CALCIUM 8.4 - 10.2 mg/dL 8.3 (L) Magnesium 1.5 - 2.6 mg/dL 2.0 Protein 6.0 - 8.3 g/dL 5.3 (L) CBC Rpt ! 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 * DIFFERENTIAL AND PLAN: Septic shock, shock resolved Ascending cholangitis 2/2 plastic stent occlusion Deranged LFTs Hx met pancreatic CA s/p ERCP with stent placement 12/2023 Acute hypoxic Respiratory Failure likely in setting of PNA, CHF exacerbation, PE RUL PNA (on CXR), deconditioning Acute pulmonary embolism Fever resolved - transfer from [facility] on 04/02/24 - to ICU and downgraded on same day - GI consulted s/p ERCP with metal stent placement 04/02/24 - LFTs improving - plan to repeat ERCP for stent exchange in approx 6 months by GI - blood cultures drawn at [facility] grew Streptococcus constellatus and Gram-negative bacilli. Blood cultures drawn at [facility] is negative so far -ID consulted and recommendations appreciated - continue iv unasyn with end date 04/16/24. PICC line placed on 04/07/24 - palliative following -GOC discussion-patient wants to continue all medical intervention necessary for recovery -Oncology consulted for metastatic pancreatic cancer,recommended that they will not be offering himchemotherapy while in hospital due to current infection as well as poor performance status, to follow up as outpatient for treatment discussion. - GI and General Surgery consulted for imaging binding with cholecystitis, no active intervention, poor surgical candidate - CTPE obtained on 04/05/2024 in view of increased work of breathing, sinus tachycardia and patienthypercoagulability status- revealed acute pulmonary emboli involving the left posterior segmental and right posterior subsegmental pulmonary arteries, no evidence of right heart strain. Continue therapeutic lovenox - Venous Doppler of bilateral lower extremity neg for DVT - Intermittently requiring HFNC for work of breathing possible multifactorial etiology, PE, CHF exacerbation, deconditioning. Less likely ACS, no chest pain. Discussed with thoracic medicine who agree with ongoing management and recommended diuresis. Discussed with cardiology who do not recommend any ischemic evaluation inpatient, recommended aggressive diuresis and followup outpatient in 1 month -continue bumex 2mg IV BID, goal net neg 2-3L/day, monitor urine output closely - PT/OT - respiratory patient driven protocol, IS and flutter -leukocytosis improving possible reactive vs in setting of cancer, PE, trend daily, if worsening consider infectious workup and consult ID again Elevated Troponin, likely demand ischemia Combined systolic and diastolic CHF Troponin [id number] EKG showing no new ischemic changes Echo: EF 40%, grade 1 diastolic dysfunction Primary team previously Discussed with Cardiology team via TT, suggested no further trending of troponin needed and no active intervention at this point Patient on DAPT previously, he was told by primary oil gas and pipe tester potenitally plavix can be stopped and aspirin should be continued, discussed with inpatient cardiology who recommended same, last cardiac stent 2009 NURSING PROGRAM MANAGER imdur NURSING PROGRAM MANAGER ranolazine Patient at increased risk of myopathy with lipitor, lipitor was discontinued outpatient Hyponatremia improving Likely multifactorial, hypervolemic /siadh with malignancy, poor solute intake Hypokalemia-resolved Sodium stable Urine sodium <20 Monitor BMP Chronic medical conditions T2DM - hold NURSING PROGRAM MANAGER medications, MDSSI, Lantus 10 units hs and carb coverage 1:15 BPH - continue flomax CAD - continue asa GERD - continue protonix PHARMACOLOGIC VTE PROPHYLAXIS: lovenox CODE STATUS: No Code EXPECTED DISCHARGE DATE: No information available I spent a total of 45 minutes coordinating, documenting, and providing care for this patient excluding time spent in the performance of separately billed services or time spent by another provider/QHP. * John Villarreal MD - 04/10/2024 6:18 PM EST Images from the original note were not included. [facility] B843/A INTERVAL HISTORY: OVERNIGHT: No acute events overnight SUBJECTIVE: Patient seen and examined at bedside Patient comfortable today Dyspnea improving, no cough or chest pain, abdominal pain Had multiple BM yesterday all mushy not foul smelling, RN not concerned for c.diff One BM today Updates given to daughter at bedside On 3L oxygen saturating 100% Objective Physical Exam Most Recent Vital Signs: BP: 122 mmHg/60 mmHg (04/10/241514) Pulse: 63 (04/10/241514) Resp: 20 (04/10/241514) Temp: 36.61 C (04/10/241514) Temp Summary: Temp Min: 36.1 C (96.9 F) Max: 37.1 C (98.7 F) SpO2: 100 % (04/10/241514) O2 flow rate: 2 L/MIN (04/10/241514) Supplemental O2 Delivery: Nasal Cannula (01/17/25 1515) BP 122/60 | Pulse 63 | Temp 36.6 C (97.9 F) (Tympanic) | Resp 20 | Ht 1.676 m (5' 5.98") | Wt 74.4 kg (164 lb) Comment: bed zeroed | SpO2 100% | BMI 26.48 kg/m | BSA 1.86 m Constitutional: Patient sitting in chair , chronically ill looking, cachectic HEENT: atraumatic, moist mucous membrane, NC in place, mediport site clean, non tender CV: normal heart sounds, normal rate and rhythm, no murmurs Chest: lung clear to ausculatation, no wheezes Abdomen: soft, non tender, non distended, +BS Extremities: pitting edema 1+ in upper extremity b/l and 1+ in LE b/l, no cyanosis, picc site, clean, no erythema or discharge Skin: warm, dry, intact Neuro: alert, answering questions Psych: normal mood and affect Implanted IV Device Right Chest (Active) Number of days: 67 Power PICC Single Lumen Left;Upper Arm (Active) Number of days: 3 STUDIES: Encounter Orders Labs and other studies reviewed with pertinent findings noted below: Latest Reference Range & Units 04/10/24 05:20 SODIUM 135 - 146 mmol/L 135 POTASSIUM 3.5 - 5.1 mmol/L 3.7 CHLORIDE 98 - 107 mmol/L 103 CO2 22 - 32 mmol/L 24 BUN 6 - 20 mg/dL 13 CREATININE 0.6 - 1.2 mg/dL 0.6 EGFR >=60 mL/min >90 ANION GAP 7 - 15 mmol/L 8 GLUCOSE 70 - 120 mg/dL 127 (H) CALCIUM 8.4 - 10.2 mg/dL 8.3 (L) Protein 6.0 - 8.3 g/dL 5.1 (L) CBC Rpt ! WBC 4.00 - 10.80 K/uL 15.83 (H) RBC 4.50 - 5.25 M/uL 3.04 HGB 14.0 - 16.8 g/dL 8.6 (L) HCT 40.0 - 48.4 % 27.2 (L) MCV 82.0 - 99.5 fL 89.5 MCH 27.0 - 34.0 pg 28.3 MCHC 32.0 - 36.0 g/dL 31.6 RDW 11.5 - 15.5 % 19.0 PLT 140 - 400 K/uL 124 (L) MPV 6.6 - 11.1 fL 10.3 (H): Data is abnormally high (L): Data is abnormally low !: Data is abnormal Rpt: View report in Results Review for more information Latest Reference Range & Units 04/10/24 05:20 Albumin 3.8 - 5.0 g/dL 2.3 (L) AST 10 - 50 U/L 43 ALT 10 - 50 U/L 36 Alkaline Phosphatase 35 - 130 U/L 483 (H) Bilirubin, Total <=1.2 mg/dL 1.1 Bilirubin, Direct 0.0 - 0.3 mg/dL 0.8 (H) (L): Data is abnormally low (H): Data is abnormally high CXR IMPRESSION IMPRESSION Similar lateral right upper lobe opacity, which may reflect pneumonia superimposed on emphysema. Nonew opacity. 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 * DIFFERENTIAL AND PLAN: Septic shock, shock resolved Ascending cholangitis 2/2 plastic stent occlusion Deranged LFTs Hx met pancreatic CA s/p ERCP with stent placement 12/2023 Acute hypoxic Respiratory Failure likely in setting of PNA, CHF exacerbation, PE RUL PNA (on CXR), deconditioning Acute pulmonary embolism Fever resolved - transfer from [facility] on 04/02/24 - to ICU and downgraded on same day - GI consulted s/p ERCP with metal stent placement 04/02/24 - LFTs improving - plan to repeat ERCP for stent exchange in approx 6 months by GI - blood cultures drawn at [facility] grew Streptococcus constellatus and Gram-negative bacilli. Blood cultures drawn at [facility] is negative so far -ID consulted and recommendations appreciated - continue iv unasyn with end date 04/16/24. PICC line placed on 04/07/24 - palliative following -GOC discussion-patient wants to continue all medical intervention necessary for recovery -Oncology consulted for metastatic pancreatic cancer,recommended that they will not be offering himchemotherapy while in hospital due to current infection as well as poor performance status, to follow up as outpatient for treatment discussion. - GI and General Surgery consulted for imaging binding with cholecystitis, no active intervention, poor surgical candidate - CTPE obtained on 04/05/2024 in view of increased work of breathing, sinus tachycardia and patienthypercoagulability status- revealed acute pulmonary emboli involving the left posterior segmental and right posterior subsegmental pulmonary arteries, no evidence of right heart strain. Continue therapeutic lovenox - Venous Doppler of bilateral lower extremity neg for DVT - Intermittently requiring HFNC for work of breathing possible multifactorial etiology, PE, CHF exacerbation, deconditioning. Less likely ACS, no chest pain. Discussed with thoracic medicine today who agree with ongoing management and recommended diuresis. Discussed with cardiology today who do notrecommend any ischemic evaluation inpatient, recommended aggressive diuresis and followup outpatient in 1 month -Transition to bumex 2mg IV BID, goal net neg 2-3L/day, monitor urine output closely - PT/OT - respiratory patient driven protocol, IS and flutter -leukocytosis possible reactive vs in setting of cancer, PE, trend daily, if worsening consider infectious workup and consult ID again Elevated Troponin, likely demand ischemia Combined systolic and diastolic CHF Troponin [id number] EKG showing no new ischemic changes Echo: EF 40%, grade 1 diastolic dysfunction Primary team previously Discussed with Cardiology team via TT, suggested no further trending of troponin needed and no active intervention at this point Patient on DAPT previously, he was told by primary oil gas and pipe tester potenitally plavix can be stopped and aspirin should be continued, discussed with inpatient cardiology who recommended same, last cardiac stent 2009 Hold NURSING PROGRAM MANAGER imdur with hypotension NURSING PROGRAM MANAGER ranolazine Hyponatremia improving Likely multifactorial, hypervolemic /siadh with malignancy, poor solute intake Hypokalemia-resolved Sodium stable Urine sodium <20 Monitor BMP Chronic medical conditions T2DM - hold NURSING PROGRAM MANAGER medications, MDSSI,started on Lantus 10 units hs and carb coverage 1:15 BPH - continue flomax CAD - continue asa GERD - continue protonix PHARMACOLOGIC VTE PROPHYLAXIS: lovenox CODE STATUS: No Code EXPECTED DISCHARGE DATE: No information available I spent a total of 55 minutes coordinating, documenting, and providing care for this patient excluding time spent in the performance of separately billed services or time spent by another provider/QHP. * John Villarreal MD - 04/09/2024 7:23 PM EST Images from the original note were not included. [facility] B843/A INTERVAL HISTORY: OVERNIGHT: No acute events overnight SUBJECTIVE: Patient seen and examined at bedside Patient with increased work of breathing later in afternoon. C/o dyspnea, no other new symptoms Denies chest pain. He had rigors, no fever, CXR no acute changes. EKG no acute ischemic changes. Placed on HFNC for work of breathing and he appears much comfortable. IV lasix 80mg given today, continue pulmonary hygiene, antibiotics, anticoagulation fo PE. Objective Physical Exam Most Recent Vital Signs: BP: 90 mmHg/48 mmHg (04/09/241833) Pulse: 80 (04/09/241833) Resp: 20 (04/09/241833) Temp: 37.06 C (04/09/241833) Temp Summary: Temp Min: 36.3 C (97.3 F) Max: 37.9 C (100.2 F) SpO2: 100 % (04/09/241833) O2 flow rate: 50 L/MIN (04/09/241833) Supplemental O2 Delivery: HFNC (04/09/241833) BP 90/48 Comment: manual | Pulse 80 | Temp 37.1 C (98.7 F) (Tympanic) | Resp 20 | Ht 1.676 m (5' 5.98") | Wt 73 kg (161 lb) Comment: nurse aware; bed needs to be zeroed | SpO2 100% | BMI 26.00 kg/m | BSA 1.84 m Constitutional: Patient sitting in bed , chronically ill looking, cachectic HEENT: atraumatic, moist mucous membrane, HFNC in place, mediport site clean, non tender CV: normal heart sounds, normal rate and rhythm, no murmurs Chest: crackles at lung bases, no wheezes Abdomen: soft, non tender, non distended, +BS Extremities: pitting edema 1+ in upper extremity b/l and 2+ in LE b/l, no cyanosis, picc site, clean, no erythema or discharge Skin: warm, dry, intact Neuro: alert, answering questions Psych: normal mood and affect Implanted IV Device Right Chest (Active) Number of days: 66 Power PICC Single Lumen Left;Upper Arm (Active) Number of days: 2 STUDIES: Encounter Orders Labs and other studies reviewed with pertinent findings noted below: Latest Reference Range & Units 04/09/24 04:29 04/09/24 06:41 04/09/24 10:56 04/09/24 12:55 Temperature C 37.0 pH, Venous 7.320 - 7.430 units 7.319 (L) pCO2, Venous 40.0 - 60.0 mmHg 47.5 pO2, Venous 25.0 - 50.0 mmHg 23.1 (L) O2 Content, Venous 7.0 - 18.0 %vol 4.2 (L) Oxyhemoglobin, Venous 40.0 - 85.0 % total Hgb 28.9 (L) Base Excess, Venous -2.0 - 2.0 mmol/L -1.9 Carboxyhemoglobin, Whole Blood <=1.5 % total Hgb 0.7 Methemoglobin, Whole Blood <=1.5 % total Hgb 0.9 Reduced Hemoglobin, Venous % total Hgb 69.5 SODIUM 135 - 146 mmol/L 133 (L) POTASSIUM 3.5 - 5.1 mmol/L 3.7 CHLORIDE 98 - 107 mmol/L 102 CO2 22 - 32 mmol/L 22 BUN 6 - 20 mg/dL 13 CREATININE 0.6 - 1.2 mg/dL 0.6 EGFR >=60 mL/min >90 ANION GAP 7 - 15 mmol/L 9 GLUCOSE 70 - 120 mg/dL 150 (H) CALCIUM 8.4 - 10.2 mg/dL 8.6 GLUCOSE - POCT 70 - 120 mg/dL 119 155 (H) Bicarbonate, Whole Blood 23.0 - 31.0 mmol/L 23.7 Protein 6.0 - 8.3 g/dL 4.9 (L) CBC Rpt ! WBC 4.00 - 10.80 K/uL 13.11 (H) RBC 4.50 - 5.25 M/uL 3.18 HGB 14.0 - 16.8 g/dL 8.9 (L) 10.2 (L) HCT 40.0 - 48.4 % 28.2 (L) MCV 82.0 - 99.5 fL 88.7 MCH 27.0 - 34.0 pg 28.0 MCHC 32.0 - 36.0 g/dL 31.6 RDW 11.5 - 15.5 % 18.8 PLT 140 - 400 K/uL 126 (L) MPV 6.6 - 11.1 fL 9.9 Albumin 3.8 - 5.0 g/dL 2.3 (L) AST 10 - 50 U/L 36 ALT 10 - 50 U/L 32 Alkaline Phosphatase 35 - 130 U/L 479 (H) Bilirubin, Total <=1.2 mg/dL 1.0 Bilirubin, Direct 0.0 - 0.3 mg/dL 0.7 (H) (L): Data is abnormally low (H): Data is abnormally high !: Data is abnormal Rpt: View report in Results Review for more information CXR IMPRESSION IMPRESSION Similar lateral right upper lobe opacity, which may reflect pneumonia superimposed on emphysema. Nonew opacity. 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 * DIFFERENTIAL AND PLAN: Septic shock, shock resolved Ascending cholangitis 2/2 plastic stent occlusion Deranged LFTs Hx met pancreatic CA s/p ERCP with stent placement 12/2023 Acute hypoxic Respiratory Failure likely in setting of PNA, CHF exacerbation, PE RUL PNA (on CXR), deconditioning Acute pulmonary embolism Fever resolved, had rigors once today - transfer from [facility] on 04/02/24 - to ICU and downgraded on same day - GI consulted s/p ERCP with metal stent placement 04/02/24 - LFTs improving - plan to repeat ERCP for stent exchange in approx 6 months by GI - blood cultures drawn at [facility] grew Streptococcus constellatus and Gram-negative bacilli. Blood cultures drawn at [facility] is negative so far -ID consulted and recommendations appreciated - continue iv unasyn with end date 04/16/24. PICC line placed on 04/07/24 - palliative following -GOC discussion-patient wants to continue all medical intervention necessary for recovery -Oncology consulted for metastatic pancreatic cancer,recommended that they will not be offering himchemotherapy while in hospital due to current infection as well as poor performance status, to follow up as outpatient for treatment discussion. - GI and General Surgery consulted for imaging binding with cholecystitis, no active intervention, poor surgical candidate - CTPE obtained on 04/05/2024 in view of increased work of breathing, sinus tachycardia and patienthypercoagulability status- revealed acute pulmonary emboli involving the left posterior segmental and right posterior subsegmental pulmonary arteries, no evidence of right heart strain. Continue therapeutic lovenox - Venous Doppler of bilateral lower extremity neg for DVT - IV lasix 80mg, today, IV albumin today, If hypotensive consider IV albumin infusion -Wean from HFNC as tolerated - continue PT/OT - respiratory patient driven protocol, IS and flutter -leukocytosis possible reactive trend daily improving Elevated Troponin, likely demand ischemia Combined systolic and diastolic CHF Troponin [id number] EKG showing no new ischemic changes Echo: EF 40%, grade 1 diastolic dysfunction Primary team previously Discussed with Cardiology team via TT, suggested no further trending of troponin needed and no active intervention at this point Patient on DAPT previously, he was told by primary oil gas and pipe tester potenitally plavix can be stopped and aspirin should be continued, discussed with inpatient cardiology who recommended same, last cardiac stent 2010 Hold NURSING PROGRAM MANAGER imdur with hypotension Hyponatremia improving Likely multifactorial, hypervolemic /siadh with malignancy, poor solute intake Hypokalemia-resolved Sodium stable Urine sodium <20 Monitor BMP Chronic medical conditions T2DM - hold NURSING PROGRAM MANAGER medications, MDSSI,started on Lantus 10 units hs and carb coverage 1:15 BPH - continue flomax CAD - continue asa GERD - continue protonix PHARMACOLOGIC VTE PROPHYLAXIS: lovenox CODE STATUS: No Code EXPECTED DISCHARGE DATE: No information available I spent a total of 55 minutes coordinating, documenting, and providing care for this patient excluding time spent in the performance of separately billed services or time spent by another provider/QHP. * Onofre Johnson MD - 04/09/2024 4:39 PM EST Images from the original note were not included. Progress Note - Palliative Medicine [address] [address] Name: Mitchel Harmon Location: [facility] [place] B843/A Date: 04/09/2024 Time: 4:39 PM Subjective: Patient seen and chart reviewed. Family present: yes The patient stated that he is doing well despite being on high-flow nasal cannula. He denied any pain. No acute events overnight. Denied any fever, nausea, vomiting, chest pain. OBJECTIVE: Most Recent Vital Signs: BP: 100 mmHg/56 mmHg (04/09/24 1523) Pulse: 60 (04/09/24 1523) Resp: 20 (04/09/24 1523) Temp: 37.89 C (04/09/24 1523) Temp Summary: Temp Min: 36.3 C (97.3 F) Max: 37.9 C (100.2 F) SpO2: 99 % (04/09/24 162) O2 flow rate: 50 L/MIN (04/09/241625) Supplemental O2 Delivery: HFNC (04/09/241625) Vital Signs Last 24 Hours: Systolic BP: Most Recent Systolic BP Av.7 mmHg Min: 100 mmHg Max: 148 mmHg Temperature: Most Recent Temperature Av.9 C Min: 36.28 C Max: 37.89 C Pulse: Pulse Av.9 Min: 60 Max: 108 Respirations: Resp Av.6 Min: 20 Max: 24 SpO2: SpO2 Av.5 % Min: 96 % Max: 100 % Physical Exam: General: Awake, alert, and oriented. No acute distress. Eyes: PERRLA, EOMI, normal conjunctivae, non-icteric sclera, normal eyelids. Ears, Nose, Mouth, and Throat: Atraumatic, normocephalic. Normal external ears, normal external nose. Respiratory: No signs of respiratory distress. No accessory muscles of respiration being used. On high-flow nasal cannula Neurological: Awake, alert, and oriented. Normal speech. Cranial nerves grossly intact. Psychiatric: Appropriate mood and affect. Good judgement and insight. No hallucinations. No suicidal and homicidal ideation. Current Facility-Administered Medications Medication Dose Route Frequency Provider Albuterol Sulfate (Proventil) (2.5 MG/3ML) 0.083% inhalation solution 2.5 mg 2.5 mg Nebulizer Q4H PRN John Villarreal MD Atenolol (Tenormin) tab 50 mg 50 mg Oral Daily(AM) John Villarreal MD isosorbide mononitrate SA (Imdur) tab 120 mg 120 mg Oral Daily(AM) John Villarreal MD sodium chloride 0.9 % flush central line 10 mL 10 mL IV Push Q8H Jesse Stinson MD ampicillin-sulbactam in NSS (Unasyn) ivpb 3 g 3 g IV Piggyback Q6H Jesse Stinson MD insulin aspart (NovoLOG) inj Subcutaneous With meals Jesse Stinson MD Insulin Glargine (Lantus) inj 10 Units 10 Units Subcutaneous HS insulin Jesse Stinson MD Enoxaparin (Lovenox) inj 70 mg 1 mg/kg Subcutaneous Q12H Jesse Stinson MD Ibuprofen (Motrin) tab 400 mg 400 mg Oral Q4H PRN Jesse Stinson MD polyvinyl alcohol-povidone PF (Refresh) ophthalmic solution 1 Drop 1 Drop Both eyes BID PRN Jesse Stinson MD aspirin chew tab 81 mg 81 mg Oral HS Ann Jay PA-C dextrose 50% inj 25 mL 25 mL IV Push PRN Ann Jay PA-C dextrose 50% inj 50 mL 50 mL IV Push PRN Ann Jay PA-C glucagon (Glucagen) inj 1 mg 1 mg Intramuscular PRN Ann Jay PA-C Glucose (Glutose 15) 40 % gel 15 g of glucose 15 g of glucose Oral PRN Ann Jay PA-C Glucose (Glutose 15) 40 % gel 30 g of glucose 30 g of glucose Oral PRN Ann Jay PA-C glucose chew tab 16 g 16 g Oral PRN Filozof, Ann, PA-C insulin aspart (NovoLOG) inj Subcutaneous With Meals and HS Ann Jay PA-C omeprazole (PriLOSEC) cap 20 mg 20 mg Oral Daily(AM) Ann Jay PA-C oxygen GAS Inhalation Oxygen Ann Jay PA-C sodium chloride 0.9 % flush peripheral radha 3 mL 3 mL IV Push Q8H Ann Jay PA-C tamsulosin (Flomax) cap 0.4 mg 0.4 mg Oral BID(AM/PM) Ann Jay PA-C LABS REVIEWED: yes, reviewed 04/09/24 1634 GLUCOSE METER, POINT OF CARE Collected: 04/09/24 1621 | Final result | Specimen: Blood from WHOLE BLOOD GLUCOSE - POCT 128 High mg/dL 04/09/24 1305 BLOOD GAS, VENOUS Collected: 04/09/24 1255 | Final result | Specimen: Blood, Venous Temperature 37.0 C Oxyhemoglobin, Venous 28.9 Low % total Hgb pH, Venous 7.319 Low units Carboxyhemoglobin, Whole Blood 0.7 % total Hgb pCO2, Venous 47.5 mmHg Methemoglobin, Whole Blood 0.9 % total Hgb pO2, Venous 23.1 Low mmHg Reduced Hemoglobin, Venous 69.5 % total Hgb Base Excess, Venous -1.9 mmol/L O2 Content, Venous 4.2 Low %vol HGB 10.2 Low g/dL Bicarbonate, Whole Blood 23.7 mmol/L 04/09/24 1138 GLUCOSE METER, POINT OF CARE Collected: 04/09/24 1056 | Final result | Specimen: Blood from WHOLE BLOOD GLUCOSE - POCT 155 High mg/dL 04/09/24 0649 GLUCOSE METER, POINT OF CARE Collected: 04/09/24 0641 | Final result | Specimen: Blood from WHOLE BLOOD GLUCOSE - POCT 119 mg/dL 04/09/24 0503 HEPATIC FUNCTION PANEL Collected: 04/09/24 0429 | Final result | Specimen: Blood, Venous Albumin 2.3 Low g/dL Bilirubin, Total 1.0 mg/dL AST 36 U/L Bilirubin, Direct 0.7 High mg/dL Alkaline Phosphatase 479 High U/L Protein 4.9 Low g/dL ALT 32 U/L 04/09/24 0503 BASIC METABOLIC PANEL Collected: 04/09/24 0429 | Final result | Specimen: Blood, Venous BUN 13 mg/dL CHLORIDE 102 mmol/L CREATININE 0.6 mg/dL CO2 22 mmol/L EGFR >90 mL/min ANION GAP 9 mmol/L SODIUM 133 Low mmol/L GLUCOSE 150 High mg/dL POTASSIUM 3.7 mmol/L CALCIUM 8.6 mg/dL 04/09/24 0445 CBC Collected: 04/09/24 042 | Final result | Specimen: Blood, Venous WBC 13.11 High K/uL MCHC 31.6 g/dL RBC 3.18 M/uL RDW 18.8 % HGB 8.9 Low g/dL PLT 126 Low K/uL HCT 28.2 Low % MPV 9.9 fL MCV 88.7 fL nRBCs 0 /100 WBCs MCH 28.0 pg IMAGING REVIEWED: yes, reviewed EXAM XR CHEST 1 VIEW-04/09/2024 1:57 pm HISTORY dyspnea COMPARISON XR CHEST 1 VIEW, ACC: [id number], dated 2024-04-08 13:53:43 TECHNIQUE Single portable frontal view of the chest. FINDINGS Lines/Tubes: Similar right port catheter. Lungs/Pleura: Similar lateral right upper lobe opacity. No new opacity. No sizable pleural effusionor pneumothorax. Heart/Mediastinum: Unchanged contours. CABG. Bones/Soft Tissues: Median sternotomy. Upper Abdomen: Visualized portions are unremarkable. IMPRESSION IMPRESSION Similar lateral right upper lobe opacity, which may reflect pneumonia superimposed on emphysema. Nonew opacity. 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 Mitchel, referred for consultation to Palliative Medicine with a primary diagnosis of: Metastatic pancreatic adenocarcinoma Acute hypoxic respiratory failure on high-flow nasal cannula Metastatic pancreatic adenocarcinoma Ascending cholangitis secondary to plastic stent occlusion Acute pulmonary embolism Combined systolic/diastolic heart failure Palliative Care Z51.5 Recommendations: Provided psychosocial support and empathetic listening The patient continues to want to pursue disease directed treatment. The patient is a no code. His daughter had questions about what services would be available outpatient. We discussed that he could follow up with Palliative Care outpatient in [place]. Per the patient he does not feel like his lady friend can take care of him at home by herself and they would need more resources. We discussed going home with home health versus being discharged to a retirement facility and family would like to discuss this with Care Management. SIGNOFF IMPRESSION AND RECOMMENDATIONS: Specialty Impression Acute hypoxic respiratory failure on high-flow nasal cannula Metastatic pancreatic adenocarcinoma Ascending cholangitis secondary to plastic stent occlusion Acute pulmonary embolism Combined systolic/diastolic heart failure Palliative Care Z51.5 Recommended medication(s) at discharge N/A Recommended discharge testing (lab, imaging, etc.) N/A Other recommended care at discharge N/A Follow-up in [facility] Follow up with Dr. Azalia Martinez, palliative care, in [place] one week after discharge We will sign off at this time. Please call with any questions or should the patient's clinical course change. The [employer] sales consultant has placed the following orders for their recommendations: Recommended Follow-up Thank you for allowing us to participate in the ongoing care of this patient. Please don't hesitate to call or page with any additional concerns. This chart was completed in part utilizing [employer] Speech Voice Recognition Software. Grammatical errors, random word insertions, pronoun errors, and incomplete sentences are an occasional consequence of this system due to software limitations, ambient noise, and hardware issues. Any formal questions or concerns about the content, text, or information contained within the body of this dictation should be directly addressed to the physician for clarification. * John Villarreal MD - 04/08/2024 7:40 PM EST Images from the original note were not included. [facility] B843/A INTERVAL HISTORY: OVERNIGHT: Patient had chills, PRACTICAL NURSING TEACHER was called for increased work of breathing, He was placed on HFNC SUBJECTIVE: Patient seen and examined at bedside Respiratory status much improved today. He seemed comfortable. Saturating 100% on 3L oxygen via NC He reports some dyspnea, later in the afternoon sitting comfortably in chair, speaking full sentences Not in distress No chest pain Having hematuria, hale's catheter to remove today could be traumatic with AC use Having cough Patient was febrile yesterday but no fevers today No other complains Updates given to daughter at bedside Objective Physical Exam Most Recent Vital Signs: BP: 122 mmHg/74 mmHg (04/08/241753) Pulse: 103 (04/08/241753) Resp: 20 (04/08/241753) Temp: 36.78 C (04/08/241753) Temp Summary: Temp Min: 36.3 C (97.3 F) Max: 38.3 C (101 F) SpO2: 100 % (04/08/241753) O2 flow rate: 3 L/MIN (04/08/241753) Supplemental O2 Delivery: Nasal Cannula (04/08/241753) BP 122/74 | Pulse 103 | Temp 36.8 C (98.2 F) (Tympanic) | Resp 20 | Ht 1.676 m (5' 5.98") | Wt 71 kg (156 lb 8 oz) | SpO2 100% | BMI 25.27 kg/m | BSA 1.82 m Constitutional: Patient sitting in bed comfortably, not in acute distress, chronically ill looking,cachectic HEENT: atraumatic, moist mucous membrane, NC in place, mediport site clean, non tender CV: normal heart sounds, normal rate and rhythm, no murmurs Chest: crackles b/l, no wheezes Abdomen: soft, non tender, non distended, +BS Extremities: pitting edema 1+ in upper extremity b/l and 2+ in LE b/l, no cyanosis, picc site, clean, no erythema or discharge Skin: warm, dry, intact Neuro: alert, answering questions Psych: normal mood and affect Implanted IV Device Right Chest (Active) Number of days: 65 Power PICC Single Lumen Left;Upper Arm (Active) Number of days: 1 STUDIES: Encounter Orders Labs and other studies reviewed with pertinent findings noted below: Latest Reference Range & Units 04/08/24 03:17 04/08/24 06:22 04/08/24 10:34 04/08/24 15:34 SODIUM 135 - 146 mmol/L 131 (L) POTASSIUM 3.5 - 5.1 mmol/L 3.6 CHLORIDE 98 - 107 mmol/L 100 CO2 22 - 32 mmol/L 23 BUN 6 - 20 mg/dL 15 CREATININE 0.6 - 1.2 mg/dL 0.7 EGFR >=60 mL/min >90 ANION GAP 7 - 15 mmol/L 8 GLUCOSE 70 - 120 mg/dL 131 (H) CALCIUM 8.4 - 10.2 mg/dL 8.9 GLUCOSE - POCT 70 - 120 mg/dL 125 (H) 156 (H) 187 (H) Protein 6.0 - 8.3 g/dL 5.0 (L) CBC Rpt ! 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 * DIFFERENTIAL AND PLAN: Septic shock, shock resolved Ascending cholangitis 2/2 plastic stent occlusion Deranged LFTs Hx met pancreatic CA s/p ERCP with stent placement 12/2023 Acute hypoxic Respiratory Failure likely in setting of PNA, CHF exacerbation, PE RUL PNA (on CXR) Acute pulmonary embolism Febrile until yesterday monitor fever curve closely, low threshold to broaden antibiotic and discuss with ID, check sputum cx, - transfer from [facility] on 04/02/24 - to ICU and downgraded on same day - GI following s/p ERCP with metal stent placement 04/02/24 - monitor LFTs - plan to repeat ERCP for stent exchange in approx 6 months by GI - IV lasix 40mg today, monitor urine output, PRN lasix as tolerated by BP - blood cultures drawn at [facility] grew Streptococcus constellatus and Gram-negative bacilli. Blood cultures drawn at [facility] is negative so far -ID consulted and recommendations appreciated - continue iv unasyn with end date 04/16/24. PICC line placed on 04/07/24 - palliative following -GOC discussion-patient wants to continue all medical intervention necessary for recovery -Oncology consulted for metastatic pancreatic cancer,recommended that they will not be offering himchemotherapy while in hospital due to current infection as well as poor performance status, to follow up as outpatient for treatment discussion. - GI and General Surgery consulted for imaging binding with cholecystitis, no active intervention, poor surgical candidate - CTPE obtained on 04/05/2024 in view of increased work of breathing, sinus tachycardia and patienthypercoagulability status- revealed acute pulmonary emboli involving the left posterior segmental and right posterior subsegmental pulmonary arteries, no evidence of right heart strain. - Venous Doppler of bilateral lower extremity neg for DVT - monitor daily CMP CBC - continue PT/OT - respiratory patient driven protocol, IS and flutter -leukocytosis possible reactive trend daily if not improving discuss with ID tomorrow Elevated Troponin, likely demand ischemia Combined systolic and diastolic CHF Troponin 580>>533 EKG showing VR 83 Qtc 493, NSR with no new changes Echo: EF 40%, grade 1 diastolic dysfunction Discussed with Cardiology team via TT, suggested no further trending of troponin needed and no active intervention at this point Patient on DAPT previously, he was told by primary oil gas and pipe tester potenitally plavix can be stopped and aspirin should be continued, discussed with inpatient cardiology who recommended same, last cardiac stent 2009 Resume NURSING PROGRAM MANAGER imdur as tolerated by BP tomorrow Hyponatremia Likely multifactorial, hypervolemic /siadh with malignancy, poor solute intake Hypokalemia-resolved Sodium stable Urine sodium <20 Monitor BMP Chronic medical conditions T2DM - hold NURSING PROGRAM MANAGER medications, MDSSI,started on Lantus 10 units hs and carb coverage 1:15 BPH - continue flomax CAD - continue asa GERD - continue protonix PHARMACOLOGIC VTE PROPHYLAXIS: lovenox CODE STATUS: No Code EXPECTED DISCHARGE DATE: No information available I spent a total of 45 minutes coordinating, documenting, and providing care for this patient excluding time spent in the performance of separately billed services or time spent by another provider/QHP. * Jesse Stinson MD - 04/07/2024 9:57 AM EST Images from the original note were not included. [facility] B843/A INTERVAL HISTORY: Overnight, PRACTICAL NURSING TEACHER was called for increased work of breathing, placed on HFNC. This morning, patient was seen and examined at bedside. Patient complained of fever and chills. Denied dizziness, nausea, vomiting, cough, chest pain, palpitations, abdominal pain, any urinary or bowel changes. He is on High-flow nasal cannula 30L/min. CTPE showing acute pulmonary emboli involving the left posterior segmental and right posterior subsegmental pulmonary arteries, no evidence of right heart strain. Patchy right upper lobe ground-glassopacities likely pneumonia, unchanged. Pancreatic head mass or numerous hepatic metastasis, unchanged. Reviewed demonstrated dilated gallbladder with pericholecystic fluid wall thickening. Patient isstarted on therapeutic Lovenox for PE. Blood cultures drawn it [facility], grew Streptococcus constellatus and Eikenella corrodens. Blood cultures drawn at [facility] is negative so far, to follow up final blood culture. ID consulted and recommendations appreciated. To continue IV Unasyn with end date: 04/16/24. PICC line placed on 04/07/24. GI on board. S/p ERCP with occluded previous stent on 04/02/2024. Patient is tolerating regular diet. GI recommended stent exchange in 6 months. Palliative team on board for goals of care discussion, patient would like to pursue disease directed therapy at this time. Oncology consulted for metastatic pancreatic cancer, recommended that they will not be offering himchemotherapy while in hospital due to current infection as well as poor performance status, to follow up as outpatient for treatment discussion. CT abdomen/pelvis showed: IMPRESSION 1. Findings concerning for cholecystitis. 2. 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 3. Right upper lobe airspace opacity favoring pneumonia. Multiple small pulmonary nodules in both lungs are nonspecific and may be related to infection/inflammation or metastatic disease. Attention on follow-up imaging. 4. Small bilateral pleural effusions with ascites and anasarca. 5. Chronic findings, as above. GI and General Surgery consulted for imaging finding with cholecystitis, no active intervention, poor surgical candidate. Objective Physical Exam Most Recent Vital Signs: BP: 130 mmHg/78 mmHg (04/07/24 0558) Pulse: 140 (04/07/24 0718) Resp: 32 (04/07/24 05) Temp: 38.89 C (04/07/24 0900) Temp Summary: Temp Min: 36.2 C (97.1 F) Max: 39.2 C (102.5 F) SpO2: 100 % (04/07/24913) O2 flow rate: 30 L/MIN (04/07/24913) Supplemental O2 Delivery: HFNC (04/07/24913) Constitutional: Elderly male, On HFNC HEENT: normal: normocephalic, atraumatic Eyes: sclera and conjunctiva normal Neck: supple, normal range of motion CV: normal rate and rhythm, no murmur, gallops or rub Chest: normal respiratory effort, lungs clear to auscultation Abdomen: soft, (+) distended, no tenderness to palpation Extremities: (+) BLE 3+ pitting edema Neuro: alert, oriented to person, place, and time Psych: normal mood and affect Urethral Catheter (Active) Number of days: 5 Implanted IV Device Right Chest (Active) Number of days: 64 STUDIES: Encounter Orders Labs and other studies reviewed with pertinent findings noted below: Labs: Recent Results (from the past 6 hours) CBC Collection Time: 04/07/24 5:10 AM Result Value Ref Range WBC 4.87 4.00 - 10.80 K/uL RBC 3.63 4.50 - 5.25 M/uL HGB 10.4 (L) 14.0 - 16.8 g/dL HCT 31.9 (L) 40.0 - 48.4 % MCV 87.9 82.0 - 99.5 fL MCH 28.7 27.0 - 34.0 pg MCHC 32.6 32.0 - 36.0 g/dL RDW 18.0 11.5 - 15.5 % PLT 148 140 - 400 K/uL MPV 9.9 6.6 - 11.1 fL nRBCs 0 <=0 /100 WBCs BASIC METABOLIC PANEL Collection Time: 04/07/24 5:10 AM Result Value Ref Range BUN 17 6 - 20 mg/dL CREATININE 0.7 0.6 - 1.2 mg/dL EGFR >90 >=60 mL/min SODIUM 134 (L) 135 - 146 mmol/L POTASSIUM 3.6 3.5 - 5.1 mmol/L CHLORIDE 103 98 - 107 mmol/L CO2 22 22 - 32 mmol/L ANION GAP 9 7 - 15 mmol/L GLUCOSE 150 (H) 70 - 120 mg/dL CALCIUM 9.1 8.4 - 10.2 mg/dL HEPATIC FUNCTION PANEL Collection Time: 04/07/24 5:10 AM Result Value Ref Range Albumin 2.4 (L) 3.8 - 5.0 g/dL AST 53 (H) 10 - 50 U/L Alkaline Phosphatase 555 (H) 35 - 130 U/L ALT 46 10 - 50 U/L Bilirubin, Total 1.0 <=1.2 mg/dL Bilirubin, Direct 0.8 (H) 0.0 - 0.3 mg/dL Protein 5.1 (L) 6.0 - 8.3 g/dL GLUCOSE METER, POINT OF CARE Collection Time: 04/07/24 6:01 AM Result Value Ref Range GLUCOSE - POCT 141 (H) 70 - 120 mg/dL GLUCOSE METER, POINT OF CARE Collection Time: 04/07/24 6:54 AM Result Value Ref Range GLUCOSE - POCT 163 (H) 70 - 120 mg/dL Imaging: VASC DUPLEX VENOUS LE BILAT Final Result VASCULAR LAB RESULTS DATE OF EXAM: 04/06/24 PRESENTING CONDITIONS: Edema, Unspecified Immediately before proceeding with the vascular lab procedure reported below, the identity of the patient, the correct exam and the correct procedural site were verified. PHYSICIAN REPORT: Lower Extremity Venous Duplex Examination Color flow Doppler, spectral analysis, and transducer compression techniques were applied during this ultrasound image examination. RIGHT LOWER EXTREMITY On duplex examination, the right common femoral vein, the sapheno-femoral junction, the femoral vein in the thigh and popliteal vein are all free of internal echoes and demonstrate normal transducer compressibility during payton scale imaging and normal respiratory and augmentation response during Doppler interrogation. The posterior tibial veins and peroneal veins demonstrate no evidence of thrombosis. LEFT LOWER EXTREMITY On duplex examination, the left common femoral vein, the sapheno-femoral junction, the femoral vein in the thigh, and popliteal vein are all free of internal echoes and demonstrate normal transducer compressibility during payton scale imaging and normal respiratory and augmentation response during Doppler interrogation. The posterior tibial veins and peroneal veins demonstrate no evidence of thrombosis. IMPRESSION: Right lower extremity with no evidence of acute deep venous thrombosis. Left lower extremity with no evidence of acute deep venous thrombosis. CT PULMONARY EMBOLUS W CONTRAST Final Result EXAM EXAM: CT PULMONARY EMBOLUS W CONTRAST DATE and TIME: 04/05/2024 8:23 am HISTORY CLINICAL INFORMATION: dyspnea, hypercoaguable, tachycardic TECHNIQUE Axial images of the chest were obtained per CT PE protocol. There is satisfactory opacification of pulmonary arteries. Sagittal and coronal multiplanar in addition to MIP reconstructions are provided. COMPARISON None FINDINGS Pulmonary arteries: Filling defects in the left posterior segmental (image 141 series 4) and right posterior subsegmental (image 148 series 4) pulmonary arteries. Lines and devices: Right chest wall left MediPort terminating at the cavoatrial junction. Lungs and pleura: Moderate emphysema. Patchy peripheral predominant ground-glass consolidations in the right upper lobe, unchanged compared prior exam 04/03/2024. Similar small bilateral pleural effusions. Numerous tiny pulmonary nodules. Trachea and bronchi: Thickening of the bronchi wall suggestive of chronic bronchitis. Distal small airway mucous plugging. Mediastinum, kul[place] and lymph nodes: No lymphadenopathy. Heart and pericardium: Normal in size. No pericardial effusion. No evidence of right heart strain. Vessels: Severe atherosclerosis status post CABG. Soft tissues: Unremarkable. Upper abdomen: Numerous hepatic metastases. Similar appearance of pancreatic head mass. Distended gallbladder with pericholecystic fluid and thickened wall. Biliary stent, stable in position. Pneumobilia, unchanged. Bones: Sternotomy wires. Degenerative changes. IMPRESSION IMPRESSION 1. Acute pulmonary emboli involving the left posterior segmental and right posterior subsegmental pulmonary arteries. No evidence of right heart strain. 2. Patchy right upper lobe ground glass opacities likely pneumonia, unchanged. 3. 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 4. Redemonstrated dilated gallbladder with pericholecystic fluid wall thickening which could be reactive, however cannot exclude acute cholecystitis. If there is clinical concern, consider a HIDA scan. #1 findings were communicated via secure HIPAA compliant text by Dr. Lonny Petty at 9:08 am on 04/05/2024 [address] DrJesse Wells , who expressed understanding. I have personally reviewed this examination and agree with the resident/fellow physician's interpretation. XR CHEST 1 VIEW Final Result EXAM XR CHEST 1 VIEW-04/05/2024 12:38 am HISTORY dyspnea COMPARISON CT CHEST_ABDOMEN_PELVIS WITH IV CONTRAST WITHOUT ORAL CONTRAST, ACC: [id number], dated 2024-04-03 17:16:05; XR CHEST 2 VIEWS, ACC: [id number], dated 2024-04-01 10:20:39; XR CHEST 2 VIEWS, ACC: [id number], dated 2019-03-03 11:15:04 TECHNIQUE Chest, AP view. 1 image(s). FINDINGS Support Devices: Right IJ infusion port catheter in stable position. Lungs/pleura: There is redemonstration of interstitial and possible nodular scarring in the right upper lobe with superimposed pneumonia difficult to entirely exclude. However, aeration in this region appears slightly improved compared to prior. Background COPD changes are present, better appreciated on the previous CT. No new confluent infiltrate/consolidation. No sizable pleural effusion or pneumothorax. Cardiomediastinal: Median sternotomy changes and post-surgical changes of/about the heart, suggesting previous CABG. Otherwise, stable cardiac and mediastinal contours. Bones/soft tissues: No acute abnormality. Other findings: None. IMPRESSION IMPRESSION Redemonstration of interstitial and possible nodular scarring in the right upper lobe with superimposed pneumonia difficult to entirely exclude. However, aeration in this region appears slightly improved compared to prior. CT CHEST/ABDOMEN/PELVIS WITH IV CONTRAST WITHOUT ORAL CONTRAST Final Result EXAM EXAM: CT CHEST/ABDOMEN/PELVIS WITH IV CONTRAST WITHOUT ORAL CONTRAST DATE and TIME: 04/03/2024 5:52 pm HISTORY CLINICAL INFORMATION: Pancreatic cancer, to evaluate for mets TECHNIQUE CT chest, abdomen and pelvis was obtained with intravenous and without oral contrast. COMPARISON CT ABD_PELVIS WO IV_ORAL CONTRAST, ACC: [id number], dated 2023-12-31 11:04:40; CT THORAX WITH CONTRAST, ACC: [id number], dated 2014-08-06 08:42:02; XR CHEST 2 VIEWS, ACC: [id number], dated 2024-04-01 10:20:39 FINDINGS LINES AND DEVICES: Right chest wall MediPort terminating near the cavoatrial junction. LUNGS: Centrilobular and paraseptal emphysema. There are mild bilateral atelectatic changes. Nonspecific ground-glass opacity in the right upper lobe. Numerous small sub 7 millimeter pulmonary nodules are noted in both lungs, some of which appear slightly subsolid. Several juxtapleural/juxta fissural subcentimeter lymph nodes are also seen. LARGE AIRWAYS: Unremarkable PLEURA: Small bilateral pleural effusions. VESSELS: Pulmonary trunk is dilated indicative of the sequela of pulmonary arterial hypertension. Prior CABG. Atherosclerotic changes in the aorta and coronary arteries. HEART: Left atrial enlargement. MEDIASTINUM AND KULWANT: No enlarged lymph node. CHEST WALL/SOFT TISSUES: Unremarkable ABDOMEN/PELVIS: LIVER: Numerous hypodense lesions are seen in the liver, grossly similar to the prior examination given absence of IV contrast. BILE DUCTS: Common bile duct stent in place with pneumobilia. GALLBLADDER: Markedly distended gallbladder with gallbladder wall thickening and pericholecystic fluid. PANCREAS: Grossly stable appearance of pancreatic head mass measuring approximally 2.6 x 2.2 cm. There is upstream pancreatic atrophy, similar to prior examination. SPLEEN: Unremarkable ADRENALS: Stable thickening of both adrenal glands. KIDNEYS/URETERS: Punctate nonobstructive left renal calculus. No ureteral calculi or hydronephrosis. BLADDER: Decompressed with Hale catheter in place. BOWEL: Colonic diverticulosis. The presence of ascites limits evaluation for subtle inflammatory changes of the bowel. No obstruction. LYMPH NODES: Small periportal lymph nodes appear unchanged. VESSELS: Prominent atherosclerosis. Patent portal venous system. REPRODUCTIVE ORGANS: Unremarkable PERITONEUM/RETROPERITONEUM: Mild ascites. ABDOMINAL WALL/SOFT TISSUES: Fat and ascites containing bilateral inguinal hernias. Anasarca. Presumed injection sites in the bilateral anterior abdominal wall. BONES: Degenerative changes of the spine and hips. Median sternotomy. No suspicious osseous lesion. IMPRESSION IMPRESSION 1. Findings concerning for cholecystitis. 2. 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 3. Right upper lobe airspace opacity favoring pneumonia. Multiple small pulmonary nodules in both lungs are nonspecific and may be related to infection/inflammation or metastatic disease. Attention on follow-up imaging. 4. Small bilateral pleural effusions with ascites and anasarca. 5. Chronic findings, as above. Added to [facility] result communication system on 04/04/2024 at 3:26 am. XR BILIARY DUCT CATH, ENDOSCOPIC Final Result This is an imaging study not interpreted or resulted by a [facility] or [facility] contracted radiologist. 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 * DIFFERENTIAL AND PLAN: Septic shock, shock resolved Ascending cholangitis 2/2 plastic stent occlusion Deranged LFTs Hx met pancreatic CA s/p ERCP with stent placement 12/2023 Acute hypoxic Respiratory Failure RUL PNA (on CXR) Acute pulmonary embolism - transfer from [facility] on 04/02/24 - to ICU and downgraded on same day - GI following - s/p ERCP with metal stent placement 04/02/24 -tolerating regular diet - monitor LFTs - plan to repeat ERCP for stent exchange in approx 6 months by GI - NURSING PROGRAM MANAGER Lasix held in view of low BP, will try to restart NURSING PROGRAM MANAGER lasix given BLE pitting edema if BP allows - blood cultures drawn at [facility] grew Streptococcus constellatus and Gram-negative bacilli. Blood cultures drawn at [facility] is negative so far -ID consulted and recommendations appreciated - continue iv unasyn with end date 04/16/24. PICC line placed on 04/07/24 - palliative following -GOC discussion-patient wants to continue all medical intervention necessary for recovery -CT abdomen/pelvis result as above -Oncology consulted for metastatic pancreatic cancer,recommended that they will not be offering himchemotherapy while in hospital due to current infection as well as poor performance status, to follow up as outpatient for treatment discussion. - GI and General Surgery consulted for imaging binding with cholecystitis, no active intervention, poor surgical candidate - CTPE obtained on 04/05/2024 in view of increased work of breathing, sinus tachycardia and patienthypercoagulability status- revealed acute pulmonary emboli involving the left posterior segmental and right posterior subsegmental pulmonary arteries, no evidence of right heart strain. - Venous Doppler of bilateral lower extremity to rule out DVT - monitor daily CMP CBC - continue PT/OT - respiratory patient driven protocol, IS and flutter Elevated Troponin, likely demand ischemia Combined systolic and diastolic CHF Troponin 580>>533 EKG showing VR 83 Qtc 493, NSR with no new changes Echo: EF 40%, grade 1 diastolic dysfunction Discussed with Cardiology team via TT, suggested no further trending of troponin needed and no active intervention at this point Hyponatremia Hypokalemia-resolved Na 130, K 3.5 Urine sodium <20 Monitor BMP Chronic medical conditions T2DM - hold NURSING PROGRAM MANAGER medications, MDSSI,started on Lantus 10 units hs and carb coverage 1:15 BPH - continue flomax CAD - continue asa and plavix GERD - continue protonix PHARMACOLOGIC VTE PROPHYLAXIS: Enoxaparin CODE STATUS: No Code EXPECTED DISCHARGE DATE: No information available I spent a total of 60 minutes coordinating, documenting, and providing care for this patient excluding time spent in the performance of separately billed services or time spent by another provider/QHP. * Batool Alejandra RN - 04/07/2024 7:35 AM EST Nursing Critical Care Response Note [facility] [address] Name: Mitchel Harmon Date: 04/07/2024 Time: 7:40 AM Event Location: [facility], Unit Area: BP8 In the role of the Critical Response Nurse I was involved in the care of this patient. Method of notification to the critical care response nurse: Rapid response team notification Reason for notification or follow up: Dysrhythmia Respiratory distress Observations/Interventions/Assessment: Lab work was done, patient experiencing "chills" with a temperature 97.2F, 100% on RA,BP 127/104, HR 150s with increasing work of breathing and resp 32, PA was paged and an EKG was performed. Then patient was put on nasal cannula 2L maintaining saturation of 100%, rapid response team was called at [phone] Outcome/Plan HFNC ordered * Ann Jay PA-C - 04/07/2024 6:29 AM EST Critical Response Note: Page by RN earlier in the evening that patient having "chills" at this time temp 97.2F, 100% on RA,BP 127/104 HR 135. EKG obtained showing sinus tach with premature beats. PRACTICAL NURSING TEACHER called at [phone] for increased work of breathing and rigors. AM labs collected with no acute findings. As this has happened on multiple occasions in the past decision was made to place patient on HFNC as this has helped him.Patient agreeable. Tachycardic and tachypneic on exam. Vital Signs: BP 130/78 | Pulse 152 | Temp 36.7 C (98.1 F) | Resp 32 | Ht 1.676 m (5' 5.98") | Wt 69.4 kg (153 lb) | SpO2 100% | BMI 24.71 kg/m | BSA 1.8 m Assessment and Plan: - am labs with no acute findings - HFNC ordered Ann Jay PA-C Department of Hospital Medicine [facility] * Naveed Pablo RN - 04/07/2024 6:05 AM EST Nursing Critical Care Response Note [address] [address] Name: Mitchel Harmon Date: 04/07/2024 Time: 6:22 AM Event Location: [facility], Unit Area: [facility] In the role of the Critical Response Nurse I was involved in the care of this patient. Method of notification to the critical care response nurse: Rapid response team notification Reason for notification or follow up: Dysrhythmia Respiratory distress Observations/Interventions/Assessment: PRACTICAL NURSING TEACHER called for tachycardia and resp distress. When arriving to room primary RN at bedside. Pt was in chair with a non rebreather on at 15L pt was slightly rigoring VS 99.2 HR 153 RR 34 BP 136/90 [id number] % on the non rebreather BG was 118. Service and resp therapy at bedisde. PT was known doing this a previous night no service ordered pt to be placed back on HFNC. Pt was returned to bed and resp therapy placed HFNC on pt 40%/40L. Will continue to monitor pt. Outcome/Plan CRN can be contacted via Boaz Text: [facility] Critical Response Nurse. * Alex Crooks DO - 04/06/2024 2:12 PM EST PROGRESS NOTE - Palliative Medicine [address] [address] Name: Mitchel Harmon Location: [facility] B843/A Date: 04/06/2024 Time: 2:12 PM SUBJECTIVE: Patient seen and chart reviewed. Pt seen at bedside with no acute overnight events.He reports no pain or other symptoms. Per chart review, patient diagnosed with PE and undergoing disease- directed therapy. Counseled on following-up with [facility] outpatient upon discharge. SIGNOFF IMPRESSION AND RECOMMENDATIONS: Specialty Impression Palliative Encounter for Goals of care in the setting of pancreatic adenocarcinoma Recommended medication(s) at discharge N/A Recommended discharge testing (lab, imaging, etc.) N/A Other recommended care at discharge N/A Follow-up in Specialty Clinic [facility] Palliative Medicine Hana with Dr. Infante We will sign off at this time. Please call with any questions or should the patient's clinical course change. The [employer]iss[employer] sales consultant has placed the following orders for their recommendations: Recommended Follow-up Cosigned by Onofre Johnson MD at 04/06/2024 9:00 PM EST * Esperanza Lim, Medical Student - 04/06/2024 1:18 PM EST Unless the attending has added an attestation supporting use of this note to document a billable service, the signature of the Licensed Professional on this note only acknowledges the presence of thestudent's note within the patient record and the Licensed Professional's note should be referred tofor clinical information and recommendations. DISCHARGE PROGRESS NOTE - Infectious Disease [address] [address] Name: Mitchel Harmon Location: [facility] B843/A Date: 04/06/2024 Time: 1:19 PM Patient Summary: Patient is a 78 year old male with PMHx of metastatic pancreatic cancer (to the liver), CAD s/p CABG and multiple stents, T2DM (non- insulin dependent), HTN, and HLD, who was admittedto the hospital on 04/02/2024 with septic shock, found to have cholangitis and polymicrobial bacteremia, and is now s/p biliary stent replacement via ERCP on 04/02/24. He is currently being treated for acute pulmonary embolism, acute hypoxic respiratory failure, and acute on chronic systolic CHF. SUBJECTIVE: Pt doing well. He states he is feeling about the same as yesterday. He denies fevers, chills, chest pain, SOB, abdominal pain, dysuria, hematuria, hematochezia, rashes, LE edema, or leg pain. OBJECTIVE: Most Recent Vital Signs: BP: 115 mmHg/68 mmHg (04/06/241009) Pulse: 82 (04/06/241009) Resp: 16 (04/06/241009) Temp: 36.22 C (04/06/241009) Temp Summary: Temp Min: 35.7 C (96.2 F) Max: 36.5 C (97.7 F) SpO2: 99 % (04/06/241009) O2 flow rate: 4 L/MIN (04/06/241009) Supplemental O2 Delivery: Nasal Cannula (04/06/241009) Vital Signs Last 24 Hours: Systolic BP: Most Recent Systolic BP Av.7 mmHg Min: 115 mmHg Max: 129 mmHg Temperature: Most Recent Temperature Av.2 C Min: 35.67 C Max: 36.5 C Pulse: Pulse Av.4 Min: 82 Max: 96 Respirations: Resp Av.7 Min: 16 Max: 18 SpO2: SpO2 Av.8 % Min: 95 % Max: 100 % Constitutional: (+) ill appearing, (+) cachectic, jaundice HEENT: normal: normocephalic, atraumatic; no masses, tenderness, or adenopathy Eyes: sclera and conjunctiva normal Neck: supple, normal range of motion CV: regular rate and rhythm. Systolic murmur heard at the upper right sternal border Chest: normal respiratory effort, lungs clear to auscultation and percussion Abdomen: soft, normal bowel sounds, non-tender to palpation Extremities: no clubbing, cyanosis, or edema, otherwise grossly normal, warm, and dry Skin: jaundiced, warm, dry, intact, age spots on upper and lower extremities : Neuro: alert, oriented to person, place, and time, normal mental status exam, sensory normal Psych: normal mood and affect FINAL IMPRESSION AND RECOMMENDATIONS: Syndrome Other: Polymicrobial Bacteremia ; Cholangitis s/p biliary stent Microbiology Streptococcus constellatus and Eikenella Corrodens Antibiotic Ampicillin-sulbactam 12g IV continuous daily (adjust for renal function) End Date 2 weeks from 04/02/2024 to 04/16/2024 Vascular access: Remove intravascular access after completion of antibiotics Recommended followup imaging studies: Not applicable LABORATORY MONITORING: Lab Test Frequency End Date CBC with diff CMP Q 2 weeks 04/16/2024 PROVIDERS: Following ID Physician ID clinic follow-up date [address] and Omar Huffman Martin, [place] 5-6 weeks Esperanza Lim Fourth-Year Medical Student [employer] [facility] Cosigned by Gabe Noriega MD at 04/06/2024 5:23 PM EST * Jesse Stinson MD - 04/06/2024 12:04 PM EST Images from the original note were not included. [facility] B843/A INTERVAL HISTORY: Overnight, no acute events. This morning, patient was seen and examined at bedside. No active medical complaints. Denied fever,dizziness, nausea, vomiting, cough, chest pain, palpitations, abdominal pain, any urinary or bowel changes. He is on 3L O2 through low-flow nasal cannula. CTPE showing acute pulmonary emboli involving the left posterior segmental and right posterior subsegmental pulmonary arteries, no evidence of right heart strain. Patchy right upper lobe ground-glassopacities likely pneumonia, unchanged. Pancreatic head mass or numerous hepatic metastasis, unchanged. Reviewed demonstrated dilated gallbladder with pericholecystic fluid wall thickening. Patient isstarted on therapeutic Lovenox for PE. Blood cultures drawn it [facility], grew Streptococcus constellatus and Eikenella corrodens. Blood cultures drawn at [facility] is negative so far, to follow up final blood culture. Patient on IV Zosyn. ID consulted and recommendations appreciated. GI on board for concern of acute cholangitis. S/p ERCP with occluded previous stent on 04/02/2024. Patient is tolerating regular diet. GI recommended stent exchange in 6 months. Palliative team on board for goals of care discussion, patient would like to pursue disease directed therapy at this time. Oncology consulted for metastatic pancreatic cancer, recommended that they will not be offering himchemotherapy while in hospital due to current infection as well as poor performance status, to follow up as outpatient for treatment discussion. CT abdomen/pelvis showed: IMPRESSION 1. Findings concerning for cholecystitis. 2. 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 3. Right upper lobe airspace opacity favoring pneumonia. Multiple small pulmonary nodules in both lungs are nonspecific and may be related to infection/inflammation or metastatic disease. Attention on follow-up imaging. 4. Small bilateral pleural effusions with ascites and anasarca. 5. Chronic findings, as above. GI and General Surgery consulted for imaging finding with cholecystitis, no active intervention, poor surgical candidate. PT/OT eval. Objective Physical Exam Most Recent Vital Signs: BP: 115 mmHg/68 mmHg (04/06/24 1010) Pulse: 82 (04/06/24 1010) Resp: 16 (04/06/24 1010) Temp: 36.22 C (04/06/24 101) Temp Summary: Temp Min: 35.7 C (96.2 F) Max: 36.5 C (97.7 F) SpO2: 99 % (04/06/24 1010) O2 flow rate: 4 L/MIN (04/06/24 1010) Supplemental O2 Delivery: Nasal Cannula (04/06/24 1010) Constitutional: no acute distress HEENT: normal: normocephalic, atraumatic Eyes: sclera and conjunctiva normal Neck: supple, normal range of motion CV: normal rate and rhythm, no murmur, gallops or rub Chest: normal respiratory effort, lungs clear to auscultation Abdomen: soft, (+) distended, no tenderness to palpation Extremities: (+) BLE 3+ pitting edema Neuro: alert, oriented to person, place, and time Psych: normal mood and affect Urethral Catheter (Active) Number of days: 4 Implanted IV Device Right Chest (Active) Number of days: 63 STUDIES: Encounter Orders Labs and other studies reviewed with pertinent findings noted below: Labs: Recent Results (from the past 6 hours) GLUCOSE METER, POINT OF CARE Collection Time: 04/06/24 6:55 AM Result Value Ref Range GLUCOSE - POCT 209 (H) 70 - 120 mg/dL CBC Collection Time: 04/06/24 7:00 AM Result Value Ref Range WBC 19.52 (H) 4.00 - 10.80 K/uL RBC 3.44 4.50 - 5.25 M/uL HGB 9.7 (L) 14.0 - 16.8 g/dL HCT 30.1 (L) 40.0 - 48.4 % MCV 87.5 82.0 - 99.5 fL MCH 28.2 27.0 - 34.0 pg MCHC 32.2 32.0 - 36.0 g/dL RDW 18.1 11.5 - 15.5 % PLT 184 140 - 400 K/uL MPV 10.1 6.6 - 11.1 fL nRBCs 0 <=0 /100 WBCs BASIC METABOLIC PANEL Collection Time: 04/06/24 7:00 AM Result Value Ref Range BUN 27 (H) 6 - 20 mg/dL CREATININE 1.0 0.6 - 1.2 mg/dL EGFR 76 >=60 mL/min SODIUM 130 (L) 135 - 146 mmol/L POTASSIUM 3.5 3.5 - 5.1 mmol/L CHLORIDE 99 98 - 107 mmol/L CO2 22 22 - 32 mmol/L ANION GAP 9 7 - 15 mmol/L GLUCOSE 247 (H) 70 - 120 mg/dL CALCIUM 9.0 8.4 - 10.2 mg/dL HEPATIC FUNCTION PANEL Collection Time: 04/06/24 7:00 AM Result Value Ref Range Albumin 2.4 (L) 3.8 - 5.0 g/dL AST 45 10 - 50 U/L Alkaline Phosphatase 499 (H) 35 - 130 U/L ALT 43 10 - 50 U/L Bilirubin, Total 0.9 <=1.2 mg/dL Bilirubin, Direct 0.7 (H) 0.0 - 0.3 mg/dL Protein 5.1 (L) 6.0 - 8.3 g/dL GLUCOSE METER, POINT OF CARE Collection Time: 04/06/24 10:56 AM Result Value Ref Range GLUCOSE - POCT 237 (H) 70 - 120 mg/dL Imaging: CT PULMONARY EMBOLUS W CONTRAST Final Result EXAM EXAM: CT PULMONARY EMBOLUS W CONTRAST DATE and TIME: 04/05/2024 8:23 am HISTORY CLINICAL INFORMATION: dyspnea, hypercoaguable, tachycardic TECHNIQUE Axial images of the chest were obtained per CT PE protocol. There is satisfactory opacification of pulmonary arteries. Sagittal and coronal multiplanar in addition to MIP reconstructions are provided. COMPARISON None FINDINGS Pulmonary arteries: Filling defects in the left posterior segmental (image 141 series 4) and right posterior subsegmental (image 148 series 4) pulmonary arteries. Lines and devices: Right chest wall left MediPort terminating at the cavoatrial junction. Lungs and pleura: Moderate emphysema. Patchy peripheral predominant ground-glass consolidations in the right upper lobe, unchanged compared prior exam 04/03/2024. Similar small bilateral pleural effusions. Numerous tiny pulmonary nodules. Trachea and bronchi: Thickening of the bronchi wall suggestive of chronic bronchitis. Distal small airway mucous plugging. Mediastinum, kul[place] and lymph nodes: No lymphadenopathy. Heart and pericardium: Normal in size. No pericardial effusion. No evidence of right heart strain. Vessels: Severe atherosclerosis status post CABG. Soft tissues: Unremarkable. Upper abdomen: Numerous hepatic metastases. Similar appearance of pancreatic head mass. Distended gallbladder with pericholecystic fluid and thickened wall. Biliary stent, stable in position. Pneumobilia, unchanged. Bones: Sternotomy wires. Degenerative changes. IMPRESSION IMPRESSION 1. Acute pulmonary emboli involving the left posterior segmental and right posterior subsegmental pulmonary arteries. No evidence of right heart strain. 2. Patchy right upper lobe ground glass opacities likely pneumonia, unchanged. 3. 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 4. Redemonstrated dilated gallbladder with pericholecystic fluid wall thickening which could be reactive, however cannot exclude acute cholecystitis. If there is clinical concern, consider a HIDA scan. #1 findings were communicated via secure HIPAA compliant text by Dr. Lonny Petty at 9:08 am on 04/05/2024 to Jesse Ballesteros , who expressed understanding. I have personally reviewed this examination and agree with the resident/fellow physician's interpretation. XR CHEST 1 VIEW Final Result EXAM XR CHEST 1 VIEW-04/05/2024 12:38 am HISTORY dyspnea COMPARISON CT CHEST_ABDOMEN_PELVIS WITH IV CONTRAST WITHOUT ORAL CONTRAST, ACC: [id number], dated 2024-04-03 17:16:05; XR CHEST 2 VIEWS, ACC: [id number], dated 2024-04-01 10:20:39; XR CHEST 2 VIEWS, ACC: [id number], dated 2019-03-03 11:15:04 TECHNIQUE Chest, AP view. 1 image(s). FINDINGS Support Devices: Right IJ infusion port catheter in stable position. Lungs/pleura: There is redemonstration of interstitial and possible nodular scarring in the right upper lobe with superimposed pneumonia difficult to entirely exclude. However, aeration in this region appears slightly improved compared to prior. Background COPD changes are present, better appreciated on the previous CT. No new confluent infiltrate/consolidation. No sizable pleural effusion or pneumothorax. Cardiomediastinal: Median sternotomy changes and post-surgical changes of/about the heart, suggesting previous CABG. Otherwise, stable cardiac and mediastinal contours. Bones/soft tissues: No acute abnormality. Other findings: None. IMPRESSION IMPRESSION Redemonstration of interstitial and possible nodular scarring in the right upper lobe with superimposed pneumonia difficult to entirely exclude. However, aeration in this region appears slightly improved compared to prior. CT CHEST/ABDOMEN/PELVIS WITH IV CONTRAST WITHOUT ORAL CONTRAST Final Result EXAM EXAM: CT CHEST/ABDOMEN/PELVIS WITH IV CONTRAST WITHOUT ORAL CONTRAST DATE and TIME: 04/03/2024 5:52 pm HISTORY CLINICAL INFORMATION: Pancreatic cancer, to evaluate for mets TECHNIQUE CT chest, abdomen and pelvis was obtained with intravenous and without oral contrast. COMPARISON CT ABD_PELVIS WO IV_ORAL CONTRAST, ACC: [id number], dated 2023-12-31 11:04:40; CT THORAX WITH CONTRAST, ACC: [id number], dated 2014-08-06 08:42:02; XR CHEST 2 VIEWS, ACC: [id number], dated 2024-04-01 10:20:39 FINDINGS LINES AND DEVICES: Right chest wall MediPort terminating near the cavoatrial junction. LUNGS: Centrilobular and paraseptal emphysema. There are mild bilateral atelectatic changes. Nonspecific ground-glass opacity in the right upper lobe. Numerous small sub 7 millimeter pulmonary nodules are noted in both lungs, some of which appear slightly subsolid. Several juxtapleural/juxta fissural subcentimeter lymph nodes are also seen. LARGE AIRWAYS: Unremarkable PLEURA: Small bilateral pleural effusions. VESSELS: Pulmonary trunk is dilated indicative of the sequela of pulmonary arterial hypertension. Prior CABG. Atherosclerotic changes in the aorta and coronary arteries. HEART: Left atrial enlargement. MEDIASTINUM AND KULWANT: No enlarged lymph node. CHEST WALL/SOFT TISSUES: Unremarkable ABDOMEN/PELVIS: LIVER: Numerous hypodense lesions are seen in the liver, grossly similar to the prior examination given absence of IV contrast. BILE DUCTS: Common bile duct stent in place with pneumobilia. GALLBLADDER: Markedly distended gallbladder with gallbladder wall thickening and pericholecystic fluid. PANCREAS: Grossly stable appearance of pancreatic head mass measuring approximally 2.6 x 2.2 cm. There is upstream pancreatic atrophy, similar to prior examination. SPLEEN: Unremarkable ADRENALS: Stable thickening of both adrenal glands. KIDNEYS/URETERS: Punctate nonobstructive left renal calculus. No ureteral calculi or hydronephrosis. BLADDER: Decompressed with Hale catheter in place. BOWEL: Colonic diverticulosis. The presence of ascites limits evaluation for subtle inflammatory changes of the bowel. No obstruction. LYMPH NODES: Small periportal lymph nodes appear unchanged. VESSELS: Prominent atherosclerosis. Patent portal venous system. REPRODUCTIVE ORGANS: Unremarkable PERITONEUM/RETROPERITONEUM: Mild ascites. ABDOMINAL WALL/SOFT TISSUES: Fat and ascites containing bilateral inguinal hernias. Anasarca. Presumed injection sites in the bilateral anterior abdominal wall. BONES: Degenerative changes of the spine and hips. Median sternotomy. No suspicious osseous lesion. IMPRESSION IMPRESSION 1. Findings concerning for cholecystitis. 2. 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 3. Right upper lobe airspace opacity favoring pneumonia. Multiple small pulmonary nodules in both lungs are nonspecific and may be related to infection/inflammation or metastatic disease. Attention on follow-up imaging. 4. Small bilateral pleural effusions with ascites and anasarca. 5. Chronic findings, as above. Added to [facility] result communication system on 04/04/2024 at 3:26 am. XR BILIARY DUCT CATH, ENDOSCOPIC Final Result This is an imaging study not interpreted or resulted by a [facility] or [facility] contracted radiologist. 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 * DIFFERENTIAL AND PLAN: Septic shock - resolved Ascending cholangitis 2/2 plastic stent occlusion Deranged LFTs Hx met pancreatic CA s/p ERCP with stent placement 12/2023 Acute hypoxic Respiratory Failure RUL PNA (on CXR) Acute pulmonary embolism - transfer from [facility] on 04/02/24 - to ICU and downgraded on same day - GI following - s/p ERCP with metal stent placement 04/02/24 -tolerating regular diet - monitor LFTs - plan to repeat ERCP for stent exchange in approx 6 months aspirin GI - continue to hold NURSING PROGRAM MANAGER antihypertensives: imdur, atenolol, ranolazine - NURSING PROGRAM MANAGER Lasix held in view of low BP, will try to restart NURSING PROGRAM MANAGER lasix given BLE pitting edema if BP allows - blood cultures drawn at [facility] grew Streptococcus constellatus and Gram-negative bacilli. Blood cultures drawn at [facility] is negative so far - to follow up final blood culture - continue iv zosyn -ID consulted and recommendations appreciated - palliative following -GOC discussion-patient wants to continue all medical intervention necessary for recovery -CT abdomen/pelvis result as above -Oncology consulted for metastatic pancreatic cancer,recommended that they will not be offering himchemotherapy while in hospital due to current infection as well as poor performance status, to follow up as outpatient for treatment discussion. - GI and General Surgery consulted for imaging binding with cholecystitis, no active intervention, poor surgical candidate - CTPE obtained on 04/05/2024 in view of increased work of breathing, sinus tachycardia and patienthypercoagulability status- revealed acute pulmonary emboli involving the left posterior segmental and right posterior subsegmental pulmonary arteries, no evidence of right heart strain. -Venous Doppler of bilateral lower extremity to rule out DVT - monitor daily CMP CBC - continue PT/OT - respiratory patient driven protocol, IS and flutter Elevated Troponin, likely demand ischemia Combined systolic and diastolic CHF Troponin 580>>533 EKG showing VR 83 Qtc 493, NSR with no new changes Echo: EF 40%, grade 1 diastolic dysfunction Discussed with Cardiology team via TT, suggested no further trending of troponin needed and no active intervention at this point Hyponatremia Hypokalemia-resolved Na 130, K 3.5 Urine sodium <20 KCL 40 meq once Monitor BMP Chronic medical conditions T2DM - hold NURSING PROGRAM MANAGER medications, MDSSI,started on Lantus 10 units hs and carb coverage 1:15 BPH - continue flomax CAD - continue asa and plavix GERD - continue protonix PHARMACOLOGIC VTE PROPHYLAXIS: Enoxaparin CODE STATUS: No Code EXPECTED DISCHARGE DATE: No information available I spent a total of 65 minutes coordinating, documenting, and providing care for this patient excluding time spent in the performance of separately billed services or time spent by another provider/QHP. * Jesse Stinson MD - 04/05/2024 9:14 AM EST Images from the original note were not included. [facility] B843/A INTERVAL HISTORY: Overnight, patient was having chills and shortness of breaths. Patient placed on high-flow nasal cannula in view of increased work of breathing. This morning, patient was seen and examined at bedside. Complained of chills. Denied fever, dizziness, nausea, vomiting, cough, chest pain, palpitations, abdominal pain, any urinary or bowel changes.He is on 4L O2 through low-flow nasal cannula. CTPE showing acute pulmonary emboli involving the left posterior segmental and right posterior subsegmental pulmonary arteries, no evidence of right heart strain. Patchy right upper lobe ground-glassopacities likely pneumonia, unchanged. Pancreatic head mass or numerous hepatic metastasis, unchanged. Reviewed demonstrated dilated gallbladder with pericholecystic fluid wall thickening. Patient isstarted on therapeutic Lovenox for PE. Blood cultures drawn it [facility], grew Streptococcus constellatus and Eikenella corrodens. Blood cultures drawn at [facility] is negative so far, to follow up final blood culture. Patient on IV Zosyn. ID consulted and recommendations appreciated. GI on board for concern of acute cholangitis. S/p ERCP with occluded previous stent on 04/02/2024. Patient is tolerating regular diet. GI recommended stent exchange in 6 months. Palliative team on board for goals of care discussion, patient would like to pursue disease directed therapy at this time. Oncology consulted for metastatic pancreatic cancer, recommended that they will not be offering himchemotherapy while in hospital due to current infection as well as poor performance status, to follow up as outpatient for treatment discussion. CT abdomen/pelvis showed: IMPRESSION 1. Findings concerning for cholecystitis. 2. 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 3. Right upper lobe airspace opacity favoring pneumonia. Multiple small pulmonary nodules in both lungs are nonspecific and may be related to infection/inflammation or metastatic disease. Attention on follow-up imaging. 4. Small bilateral pleural effusions with ascites and anasarca. 5. Chronic findings, as above. GI and General Surgery consulted for imaging finding with cholecystitis, no active intervention, poor surgical candidate. PT/OT eval. Objective Physical Exam Most Recent Vital Signs: BP: 111 mmHg/64 mmHg (04/05/24543) Pulse: 98 (04/05/24543) Resp: 18 (04/05/24543) Temp: 36.72 C (04/05/24543) Temp Summary: Temp Min: 35.8 C (96.4 F) Max: 37.3 C (99.1 F) SpO2: 100 % (04/05/24543) O2 flow rate: 40 L/MIN (04/05/24 0350) Supplemental O2 Delivery: HFNC (04/05/24543) Constitutional: no acute distress HEENT: normal: normocephalic, atraumatic Eyes: sclera and conjunctiva normal Neck: supple, normal range of motion CV: normal rate and rhythm, no murmur, gallops or rub Chest: normal respiratory effort, lungs clear to auscultation Abdomen: soft, (+) distended, no tenderness to palpatino Extremities: (+) BLE 3+ pitting edema Neuro: alert, oriented to person, place, and time Psych: normal mood and affect Urethral Catheter (Active) Number of days: 3 Implanted IV Device Right Chest (Active) Number of days: 62 STUDIES: Encounter Orders Labs and other studies reviewed with pertinent findings noted below: Labs: Recent Results (from the past 6 hours) GLUCOSE METER, POINT OF CARE Collection Time: 04/05/24 6:06 AM Result Value Ref Range GLUCOSE - POCT 147 (H) 70 - 120 mg/dL Imaging: CT PULMONARY EMBOLUS W CONTRAST Final Result EXAM EXAM: CT PULMONARY EMBOLUS W CONTRAST DATE and TIME: 04/05/2024 8:23 am HISTORY CLINICAL INFORMATION: dyspnea, hypercoaguable, tachycardic TECHNIQUE Axial images of the chest were obtained per CT PE protocol. There is satisfactory opacification of pulmonary arteries. Sagittal and coronal multiplanar in addition to MIP reconstructions are provided. COMPARISON None FINDINGS Pulmonary arteries: Filling defects in the left posterior segmental (image 141 series 4) and right posterior subsegmental (image 148 series 4) pulmonary arteries. Lines and devices: Right chest wall left MediPort terminating at the cavoatrial junction. Lungs and pleura: Moderate emphysema. Patchy peripheral predominant ground-glass consolidations in the right upper lobe, unchanged compared prior exam 04/03/2024. Similar small bilateral pleural effusions. Numerous tiny pulmonary nodules. Trachea and bronchi: Thickening of the bronchi wall suggestive of chronic bronchitis. Distal small airway mucous plugging. Mediastinum, kulwant and lymph nodes: No lymphadenopathy. Heart and pericardium: Normal in size. No pericardial effusion. No evidence of right heart strain. Vessels: Severe atherosclerosis status post CABG. Soft tissues: Unremarkable. Upper abdomen: Numerous hepatic metastases. Similar appearance of pancreatic head mass. Distended gallbladder with pericholecystic fluid and thickened wall. Biliary stent, stable in position. Pneumobilia, unchanged. Bones: Sternotomy wires. Degenerative changes. IMPRESSION IMPRESSION 1. Acute pulmonary emboli involving the left posterior segmental and right posterior subsegmental pulmonary arteries. No evidence of right heart strain. 2. Patchy right upper lobe ground glass opacities likely pneumonia, unchanged. 3. 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 4. Redemonstrated dilated gallbladder with pericholecystic fluid wall thickening which could be reactive, however cannot exclude acute cholecystitis. If there is clinical concern, consider a HIDA scan. #1 findings were communicated via secure HIPAA compliant text by Dr. Lonny Petty at 9:08 am on 04/05/2024 to Jesse Ballesteros , who expressed understanding. I have personally reviewed this examination and agree with the resident/fellow physician's interpretation. XR CHEST 1 VIEW Final Result EXAM XR CHEST 1 VIEW-04/05/2024 12:38 am HISTORY dyspnea COMPARISON CT CHEST_ABDOMEN_PELVIS WITH IV CONTRAST WITHOUT ORAL CONTRAST, ACC: [id number], dated 2024-04-03 17:16:05; XR CHEST 2 VIEWS, ACC: [id number], dated 2024-04-01 10:20:39; XR CHEST 2 VIEWS, ACC: [id number], dated 2019-03-03 11:15:04 TECHNIQUE Chest, AP view. 1 image(s). FINDINGS Support Devices: Right IJ infusion port catheter in stable position. Lungs/pleura: There is redemonstration of interstitial and possible nodular scarring in the right upper lobe with superimposed pneumonia difficult to entirely exclude. However, aeration in this region appears slightly improved compared to prior. Background COPD changes are present, better appreciated on the previous CT. No new confluent infiltrate/consolidation. No sizable pleural effusion or pneumothorax. Cardiomediastinal: Median sternotomy changes and post-surgical changes of/about the heart, suggesting previous CABG. Otherwise, stable cardiac and mediastinal contours. Bones/soft tissues: No acute abnormality. Other findings: None. IMPRESSION IMPRESSION Redemonstration of interstitial and possible nodular scarring in the right upper lobe with superimposed pneumonia difficult to entirely exclude. However, aeration in this region appears slightly improved compared to prior. CT CHEST/ABDOMEN/PELVIS WITH IV CONTRAST WITHOUT ORAL CONTRAST Final Result EXAM EXAM: CT CHEST/ABDOMEN/PELVIS WITH IV CONTRAST WITHOUT ORAL CONTRAST DATE and TIME: 04/03/2024 5:52 pm HISTORY CLINICAL INFORMATION: Pancreatic cancer, to evaluate for mets TECHNIQUE CT chest, abdomen and pelvis was obtained with intravenous and without oral contrast. COMPARISON CT ABD_PELVIS WO IV_ORAL CONTRAST, ACC: [id number], dated 2023-12-31 11:04:40; CT THORAX WITH CONTRAST, ACC: [id number], dated 2014-08-06 08:42:02; XR CHEST 2 VIEWS, ACC: [id number], dated 2024-04-01 10:20:39 FINDINGS LINES AND DEVICES: Right chest wall MediPort terminating near the cavoatrial junction. LUNGS: Centrilobular and paraseptal emphysema. There are mild bilateral atelectatic changes. Nonspecific ground-glass opacity in the right upper lobe. Numerous small sub 7 millimeter pulmonary nodules are noted in both lungs, some of which appear slightly subsolid. Several juxtapleural/juxta fissural subcentimeter lymph nodes are also seen. LARGE AIRWAYS: Unremarkable PLEURA: Small bilateral pleural effusions. VESSELS: Pulmonary trunk is dilated indicative of the sequela of pulmonary arterial hypertension. Prior CABG. Atherosclerotic changes in the aorta and coronary arteries. HEART: Left atrial enlargement. MEDIASTINUM AND KULWANT: No enlarged lymph node. CHEST WALL/SOFT TISSUES: Unremarkable ABDOMEN/PELVIS: LIVER: Numerous hypodense lesions are seen in the liver, grossly similar to the prior examination given absence of IV contrast. BILE DUCTS: Common bile duct stent in place with pneumobilia. GALLBLADDER: Markedly distended gallbladder with gallbladder wall thickening and pericholecystic fluid. PANCREAS: Grossly stable appearance of pancreatic head mass measuring approximally 2.6 x 2.2 cm. There is upstream pancreatic atrophy, similar to prior examination. SPLEEN: Unremarkable ADRENALS: Stable thickening of both adrenal glands. KIDNEYS/URETERS: Punctate nonobstructive left renal calculus. No ureteral calculi or hydronephrosis. BLADDER: Decompressed with Hale catheter in place. BOWEL: Colonic diverticulosis. The presence of ascites limits evaluation for subtle inflammatory changes of the bowel. No obstruction. LYMPH NODES: Small periportal lymph nodes appear unchanged. VESSELS: Prominent atherosclerosis. Patent portal venous system. REPRODUCTIVE ORGANS: Unremarkable PERITONEUM/RETROPERITONEUM: Mild ascites. ABDOMINAL WALL/SOFT TISSUES: Fat and ascites containing bilateral inguinal hernias. Anasarca. Presumed injection sites in the bilateral anterior abdominal wall. BONES: Degenerative changes of the spine and hips. Median sternotomy. No suspicious osseous lesion. IMPRESSION IMPRESSION 1. Findings concerning for cholecystitis. 2. 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 3. Right upper lobe airspace opacity favoring pneumonia. Multiple small pulmonary nodules in both lungs are nonspecific and may be related to infection/inflammation or metastatic disease. Attention on follow-up imaging. 4. Small bilateral pleural effusions with ascites and anasarca. 5. Chronic findings, as above. Added to [facility] result communication system on 04/04/2024 at 3:26 am. XR BILIARY DUCT CATH, ENDOSCOPIC Final Result This is an imaging study not interpreted or resulted by a [facility] or [facility] contracted radiologist. 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 * DIFFERENTIAL AND PLAN: Septic shock - resolved Ascending cholangitis 2/2 plastic stent occlusion Deranged LFTs Hx met pancreatic CA s/p ERCP with stent placement 12/2023 Acute hypoxic Respiratory Failure RUL PNA (on CXR) Acute pulmonary embolism - transfer from [facility] on 04/02/24 - to ICU and downgraded on same day - GI following - s/p ERCP with metal stent placement 04/02/24 -tolerating regular diet - monitor LFTs - plan to repeat ERCP for stent exchange in approx 6 months aspirin GI - continue to hold NURSING PROGRAM MANAGER antihypertensives: imdur, atenolol, ranolazine - NURSING PROGRAM MANAGER Lasix held in view of low BP, will try to restart NURSING PROGRAM MANAGER lasix given BLE pitting edema if BP allows - blood cultures drawn at [facility] grew Streptococcus constellatus and Gram-negative bacilli. Blood cultures drawn at [facility] is negative so far - to follow up final blood culture - continue iv zosyn -ID consulted and recommendations appreciated - palliative following -GOC discussion-patient wants to continue all medical intervention necessary for recovery -CT abdomen/pelvis result as above -Oncology consulted for metastatic pancreatic cancer,recommended that they will not be offering himchemotherapy while in hospital due to current infection as well as poor performance status, to follow up as outpatient for treatment discussion. - GI and General Surgery consulted for imaging binding with cholecystitis, no active intervention, poor surgical candidate - CTPE obtained on 04/05/2024 in view of increased work of breathing, sinus tachycardia and patienthypercoagulability status- revealed acute pulmonary emboli involving the left posterior segmental and right posterior subsegmental pulmonary arteries, no evidence of right heart strain. -Venous Doppler of bilateral lower extremity to rule out DVT - monitor daily CMP CBC - continue PT/OT - respiratory patient driven protocol, IS and flutter Elevated Troponin, likely demand ischemia Combined systolic and diastolic CHF Troponin 580>>533 EKG showing VR 83 Qtc 493, NSR with no new changes Echo: EF 40%, grade 1 diastolic dysfunction Discussed with Cardiology team via TT, suggested no further trending of troponin needed and no active intervention at this point Hyponatremia Hypokalemia Na 129, K 3.1 Urine sodium <20 KCL 40 meq once Monitor BMP Chronic medical conditions T2DM - hold NURSING PROGRAM MANAGER medications, MDSSI BPH - continue flomax CAD - continue asa and plavix GERD - continue protonix PHARMACOLOGIC VTE PROPHYLAXIS: Enoxaparin CODE STATUS: No Code EXPECTED DISCHARGE DATE: No information available I spent a total of 60 minutes coordinating, documenting, and providing care for this patient excluding time spent in the performance of separately billed services or time spent by another provider/QHP. * Naveed Peace MD - 04/04/2024 2:40 PM EST Oncology Progress Note PATIENT NAME: Mitchel Harmon DATE OF SERVICE: 04/04/2024 Room/Bed: [facility] B3/A Primary Care Physician: Pedro Luis Matute DO Interval History: Overall feels well with no complaints. Disappointed that he had gone back to needing a walker but glad to hear that his cancer is stable Visit Diagnoses: ICD-10-CM 1. Encounter for fitting and adjustment of other gastrointestinal appliance and device [Z46.59] Z46.59 2. Septic shock (HCC) A41.9 R65.21 3. Chest pain R07.9 4. SOB (shortness of breath) R06.02 5. Bacteremia R78.81 6. Other specified diseases of biliary tract [K83.8] K83.8 7. Other specified postprocedural states [Z98.890] Z98.890 8. Tachycardia R00.0 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) 02/17/2024 Moderate aortic stenosis 11/28/2021 Stable angina (HCC) 08/24/2009 Surgical History: Past Surgical History: Procedure Laterality Date CABG, ARTERIAL, TWO 03/25/1999 CATHETERIZE LEFT HEART THRU SKIN 09/23/2009 LEFT HEART CATH, PERCUTANEOUS performed by ESTELA SANDOVAL at [facility] COLONOSCOPY, DIAGNOSTIC (RECTUM) 10/12/2019 normal / COLONOSCOPY FLEXIBLE PROXIMAL DIAGNOSTIC performed by Mitchel Armenta MD at ENDOSCOPY [facility] CORONARY ARTERY DILATION, BALLOON 08/29/2009 PTCA, SINGLE VESSEL performed by ESTELA SANDOVAL at [facility] EGD, FLEXIBLE, DIAGNOSTIC 10/12/2019 normal / ESOPHAGOGASTRODUODENOSCOPY (EGD), FLEXIBLE, TRANSORAL, DIAGNOSTIC performed by Mitchel Armenta MD at ENDOSCOPY [facility] EGD, W/ENDOSCOPIC US N/A 01/16/2024 mass pancreatic head/multiple metastatic lesion liver/biopsies show adenocarcinoma pancreas mets marco/ESOPHAGOGASTRODUODENOSCOPY (EGD), FLEXIBLE, TRANSORAL, ENDOSCOPIC ULTRASOUND performed by Jose E Bai MD at ENDOSCOPY [facility] ERCP, DIAGNOSTIC, SPECIMEN COLLECTION N/A 01/16/2024 single severe malignant appearing biliary stricture/one plastic biliary stent placed CBD/repeat 3 months/ENDOSCOPIC RETROGRADE CHOLANGIOPANCREATOGRAPHY (ERCP) DIAGNOSTIC performed by Jose E Bai MD at ENDOSCOPY [facility] REMOVE CATARACT, INSERT LENS PROSTH Bilateral Medications: Ibuprofen (Motrin) tab 400 mg polyvinyl alcohol-povidone PF (Refresh) ophthalmic solution 1 Drop aspirin chew tab 81 mg dextrose 50% inj 25 mL dextrose 50% inj 50 mL glucagon (Glucagen) inj 1 mg Glucose (Glutose 15) 40 % gel 15 g of glucose Glucose (Glutose 15) 40 % gel 30 g of glucose glucose chew tab 16 g hEParin inj 5,000 Units insulin aspart (NovoLOG) inj omeprazole (PriLOSEC) cap 20 mg oxygen GAS Piperacillin-Tazobactam (Zosyn) 4.5 g in 100 mL NSS ivpb (FOUR hour infusion) sodium chloride 0.9 % flush peripheral radha 3 mL tamsulosin (Flomax) cap 0.4 mg Allergies: Iodinated contrast media, Levofloxacin, and Lisinopril Social History: Social History Socioeconomic History Marital status: Tobacco Use Smoking status: Former Current packs/day: 0.00 Average packs/day: 1 pack/day for 25.0 years (25.0 ttl pk-yrs) Types: Cigarettes Start date: 1960 Quit date: 1985 Years since quittin.0 Passive exposure: Past Smokeless tobacco: Former Tobacco comments: quit in 1984. Vaping Use Vaping status: Never Used Substance and Sexual Activity Alcohol use: Not Currently Comment: occasionally Drug use: No Social Needs Financial Resource Strain: Low Risk (03/02/2024) Financial Resource Strain Do you have any trouble paying for your medications, or do you think you might in the future? (Adult - for ages 18 years and over): No Food Insecurity: No Food Insecurity (04/02/2024) Food Insecurity Do you need food for this week? (Adult - for ages 18 years and over): No Transportation Needs: No Transportation Needs (04/02/2024) Transportation Needs Has lack of transportation kept you from medical appointments, meetings, work, or from getting things needed for daily living? Check all that apply. (Adult - for ages 18 years and over): No Social Connections: Socially Integrated (03/02/2024) Social Connections How often do you feel lonely or isolated from those around you? (Adult - for ages 18 years and over): Never Housing Stability: Low Risk (04/02/2024) Housing Stability Do you currently live in a intermediate or have no steady place to sleep at night? (Adult - for ages 18 years and over): No Are you homeless or worried that you might be in the future? (Adult - for ages 18 years and over): No Family History: family history includes Asthma in his daughter; Diabetes in his brother and daughter; Heart Disorder in his brother, father, and mother; Hyperlipidemia in his sister; Hypertension in his mother. PMH, PSH, Allergies, Social history, Family history reviewed. Review of Systems - Oncology As noted above Objective : Blood pressure 92/74, pulse 104, temperature 37.3 C (99.1 F), temperature source Tympanic, resp. rate 18, height 1.676 m (5' 5.98"), weight 69.5 kg (153 lb 4.8 oz), SpO2 100%. Intake/Output Summary (Last 24 hours) at 04/04/2024 1440 Last data filed at 04/04/2024 1228 Gross per 24 hour Intake 821.89 ml Output 1800 ml Net -978.11 ml Constitutional: NAD chronically ill, thinned, jaundice Head: NC/AT, no masses Ears/Nose/Eyes: No nasal drainage, EOMI, Pupils equal and round Mouth/Throat: No lip/oral lesions, dentition good, MMM Neck: supple, trachea midline, no lymphadenopathy CV: Regular rhythm and rate, no murmur appreciated, +2 radial and posterior tib pulses, no peripheral pitting edema Respiratory: Normal resp rate and effort on RA, no accessory muscle use, no crackles, wheezing, rhonchi heard Abdomen: Soft, nontender, nondistended, normoactive bowel sounds Musculoskeletal: Normal ROM in extremities, normal strength, No joint pain, no signs of trauma Skin: Dry, warm, intact, no rashes or masses noticed Neuro: AAOx3, no focal neurological deficits, follow commands Psych: Appropriate mood/affect, answers question appropriately Test Results: reviewed. Lab Results Component Value Date/Time WBC 16.84 (H) 04/04/2024 07:30 AM WBC 23.71 (H) 04/03/2024 07:34 AM WBC 6.13 03/11/2020 08:10 AM WBC 5.40 08/28/2019 07:52 AM WBC, URINE - [facility] 0-2 04/02/2024 02:51 AM Lab Results Component Value Date/Time HGB 10.4 (L) 04/04/2024 07:30 AM HGB 10.1 (L) 04/03/2024 07:34 AM HGB 12.5 (L) 03/11/2020 08:10 AM HGB 12.5 (L) 08/28/2019 07:52 AM Lab Results Component Value Date/Time PLT 289 04/04/2024 07:30 AM PLT 357 04/03/2024 07:34 AM PLT 248 03/11/2020 08:10 AM PLT 276 08/28/2019 07:52 AM No components found for: "ABS. NEUTS" Lab Results Component Value Date/Time CREATININE - [facility] 0.9 04/04/2024 07:30 AM CREATININE - [facility] 0.9 04/03/2024 07:34 AM CREATININE - [facility] 1.2 03/11/2020 08:10 AM CREATININE - [facility] 1.1 08/28/2019 07:52 AM CREATININE, RANDOM URINE - [facility] 71 07/12/2023 09:52 AM CREATININE, RANDOM URINE - [facility] 108 07/17/2022 12:35 PM CREATININE, RANDOM URINE - [facility] 89 03/12/2019 09:34 AM CREATININE, RANDOM URINE - [facility] 60 03/12/2018 07:40 AM RADIOLOGY: CT A/P w/o 12/30 IMPRESSION: 1. Multiple hypodense hepatic lesions, suspicious for metastatic disease. 2. Fullness of the pancreatic head, which given the hepatic findings described above is indeterminate for normal lobulated pancreatic parenchyma versus a pancreatic head mass. MRI abdomen with and without contrast is recommended for further evaluation. 3. A couple of nonobstructing left renal calculi measure up to 3 mm. No hydronephrosis. 4. A few small hyperdense foci within the urinary bladder may reflect urinary bladder calculi or wall calcifications. 5. A few sub 6 mm pulmonary nodules, new compared to chest CT dated 08/06/2014, indeterminate. PATHOLOGY: A. Pancreas, Head, EUS guided fine needle aspiration: Adequacy: Satisfactory for evaluation. Category: Malignant (WHO International System). Interpretation: Adenocarcinoma. Comment: The histological sections of the cellblock preparation show similar findings with desmoplastic stromal tissue fragments showing an infiltrate of highly atypical cells with hyperchromatic nuclei with irregular nuclear contours, nucleoli, and vacuolated cytoplasm. Immunohistochemical stains were performed with adequate controls on block A1 and show that the highly atypical epithelial cellsshow a partial loss of SMAD4. The morphologic and immunohistochemical assays are compatible with a [id number] differentiated adenocarcinoma, and compatible with a pancreatic origin Recommend clinical and endoscopic correlation. ASSESSMENT: Mr Harmon is a 78 yo male with: CAD s/p CABG DM Stage IV pancreatic cancer with liver mets Septic shock from cholangitis with obstructive plastic biliary stent, s/p covered metal stent 04/02 Bacteriemia He has tolerated C1 of chemotherapy ([place]/Abraxane) poorly with hospitalizations after D1 and D8 treatment. Chemotherapy has on hold due to performance status, last given 02/16 Reviewed scans with the patient and family. Overall stable disease. He would like to continue cancer directed therapy. We discussed that this would depend on his performance status when he is seen in the oncology clinic. Presently not a candidate for chemotherapy with active infection. Patient and family expressed understanding. Cosigned by Daya Morales DO at 04/04/2024 5:42 PM EST Associated attestation - Daya Morales DO - 04/04/2024 5:42 PM EST I saw and evaluated the patient today. I have reviewed the resident/fellow physician note and agree. I spent a total of 40 minutes coordinating, documenting, and providing care for this patient excluding time spent in the performance of separately billed services or time spent by another provider/QHP. - 78 y/o man with pancreatic cancer metastatic to liver, s/p 2 treatments of gemcitabine/nab-paclitaxel, last received 02/16. We saw him today as family wished to discuss CT scan results once available. He was worried about progression as he has remained off Tx due to recurrent illness requiring hospi talization. - Reviewed CT today - stable disease in pancreas and liver. - He is still interested in additional treatment but understands he may need alterations (e.g. dosereductions, gemcitabine monotherapy) - Extensive discussion with family and patient. All questions answered. - I messaged Dr. Del Castillo to keep him apprised * Jesse Stinson MD - 04/04/2024 8:44 AM EST Images from the original note were not included. [facility] B843/A INTERVAL HISTORY: Overnight, no acute events. This morning, patient was seen and examined at bedside. Complained of chills. Denied fever, dizziness, nausea, vomiting, cough, chest pain, palpitations, abdominal pain, any urinary or bowel changes.He is on 2 liters/minute oxygen through nasal cannula. Blood cultures drawn it [facility], grew Streptococcus constellatus and Gram-negative bacilli. Blood cultures drawn at [facility] is negative so far, to follow up final blood culture. Patient on IV Zosyn. ID consulted and recommendations appreciated. GI on board for concern of acute cholangitis. S/p ERCP with occluded previous stent on 04/02/2024. Patient is tolerating regular diet. GI recommended stent exchange in 6 months. Palliative team on board for goals of care discussion, patient would like to pursue disease directed therapy at this time. Oncology consulted for metastatic pancreatic cancer, recommended that they will not be offering himchemotherapy while in hospital due to current infection as well as poor performance status, to follow up as outpatient for treatment discussion. CT abdomen/pelvis showed: IMPRESSION 1. Findings concerning for cholecystitis. 2. 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 3. Right upper lobe airspace opacity favoring pneumonia. Multiple small pulmonary nodules in both lungs are nonspecific and may be related to infection/inflammation or metastatic disease. Attention on follow-up imaging. 4. Small bilateral pleural effusions with ascites and anasarca. 5. Chronic findings, as above. GI and General Surgery consulted for imaging finding with cholecystitis, no active intervention, poor surgical candidate. PT/OT eval. Objective Physical Exam Most Recent Vital Signs: BP: 94 mmHg/56 mmHg (04/04/24799) Pulse: 87 (04/04/24799) Resp: 18 (04/04/24799) Temp: 35.72 C (04/04/24799) Temp Summary: Temp Min: 35.3 C (95.6 F) Max: 38.2 C (100.7 F) SpO2: 100 % (04/04/24799) O2 flow rate: 2 L/MIN (04/03/24 1523) Supplemental O2 Delivery: Room Air, None (04/04/24799) Constitutional: no acute distress HEENT: normal: normocephalic, atraumatic Eyes: sclera and conjunctiva normal Neck: supple, normal range of motion CV: normal rate and rhythm, no murmur, gallops or rub Chest: normal respiratory effort, lungs clear to auscultation Abdomen: soft, (+) distended, no tenderness to palpatino Extremities: (+) BLE 3+ pitting edema Neuro: alert, oriented to person, place, and time Psych: normal mood and affect Urethral Catheter (Active) Number of days: 2 Implanted IV Device Right Chest (Active) Number of days: 61 STUDIES: Encounter Orders Labs and other studies reviewed with pertinent findings noted below: Labs: Recent Results (from the past 6 hours) GLUCOSE METER, POINT OF CARE Collection Time: 04/04/24 7:23 AM Result Value Ref Range GLUCOSE - POCT 228 (H) 70 - 120 mg/dL CBC Collection Time: 04/04/24 7:30 AM Result Value Ref Range WBC 16.84 (H) 4.00 - 10.80 K/uL RBC 3.64 4.50 - 5.25 M/uL HGB 10.4 (L) 14.0 - 16.8 g/dL HCT 31.9 (L) 40.0 - 48.4 % MCV 87.6 82.0 - 99.5 fL MCH 28.6 27.0 - 34.0 pg MCHC 32.6 32.0 - 36.0 g/dL RDW 17.8 11.5 - 15.5 % PLT 289 140 - 400 K/uL MPV 9.6 6.6 - 11.1 fL nRBCs 0 <=0 /100 WBCs BASIC METABOLIC PANEL Collection Time: 04/04/24 7:30 AM Result Value Ref Range BUN 25 (H) 6 - 20 mg/dL CREATININE 0.9 0.6 - 1.2 mg/dL EGFR 82 >=60 mL/min SODIUM 129 (L) 135 - 146 mmol/L POTASSIUM 3.8 3.5 - 5.1 mmol/L CHLORIDE 99 98 - 107 mmol/L CO2 22 22 - 32 mmol/L ANION GAP 8 7 - 15 mmol/L GLUCOSE 225 (H) 70 - 120 mg/dL CALCIUM 8.8 8.4 - 10.2 mg/dL HEPATIC FUNCTION PANEL Collection Time: 04/04/24 7:30 AM Result Value Ref Range Albumin 2.3 (L) 3.8 - 5.0 g/dL AST 60 (H) 10 - 50 U/L Alkaline Phosphatase 577 (H) 35 - 130 U/L ALT 53 (H) 10 - 50 U/L Bilirubin, Total 1.1 <=1.2 mg/dL Bilirubin, Direct 0.9 (H) 0.0 - 0.3 mg/dL Protein 5.3 (L) 6.0 - 8.3 g/dL Imaging: CT CHEST/ABDOMEN/PELVIS WITH IV CONTRAST WITHOUT ORAL CONTRAST Final Result EXAM EXAM: CT CHEST/ABDOMEN/PELVIS WITH IV CONTRAST WITHOUT ORAL CONTRAST DATE and TIME: 04/03/2024 5:52 pm HISTORY CLINICAL INFORMATION: Pancreatic cancer, to evaluate for mets TECHNIQUE CT chest, abdomen and pelvis was obtained with intravenous and without oral contrast. COMPARISON CT ABD_PELVIS WO IV_ORAL CONTRAST, ACC: [id number], dated 2023-12-31 11:04:40; CT THORAX WITH CONTRAST, ACC: [id number], dated 2014-08-06 08:42:02; XR CHEST 2 VIEWS, ACC: [id number], dated 2024-04-01 10:20:39 FINDINGS LINES AND DEVICES: Right chest wall MediPort terminating near the cavoatrial junction. LUNGS: Centrilobular and paraseptal emphysema. There are mild bilateral atelectatic changes. Nonspecific ground-glass opacity in the right upper lobe. Numerous small sub 7 millimeter pulmonary nodules are noted in both lungs, some of which appear slightly subsolid. Several juxtapleural/juxta fissural subcentimeter lymph nodes are also seen. LARGE AIRWAYS: Unremarkable PLEURA: Small bilateral pleural effusions. VESSELS: Pulmonary trunk is dilated indicative of the sequela of pulmonary arterial hypertension. Prior CABG. Atherosclerotic changes in the aorta and coronary arteries. HEART: Left atrial enlargement. MEDIASTINUM AND KULWANT: No enlarged lymph node. CHEST WALL/SOFT TISSUES: Unremarkable ABDOMEN/PELVIS: LIVER: Numerous hypodense lesions are seen in the liver, grossly similar to the prior examination given absence of IV contrast. BILE DUCTS: Common bile duct stent in place with pneumobilia. GALLBLADDER: Markedly distended gallbladder with gallbladder wall thickening and pericholecystic fluid. PANCREAS: Grossly stable appearance of pancreatic head mass measuring approximally 2.6 x 2.2 cm. There is upstream pancreatic atrophy, similar to prior examination. SPLEEN: Unremarkable ADRENALS: Stable thickening of both adrenal glands. KIDNEYS/URETERS: Punctate nonobstructive left renal calculus. No ureteral calculi or hydronephrosis. BLADDER: Decompressed with Hale catheter in place. BOWEL: Colonic diverticulosis. The presence of ascites limits evaluation for subtle inflammatory changes of the bowel. No obstruction. LYMPH NODES: Small periportal lymph nodes appear unchanged. VESSELS: Prominent atherosclerosis. Patent portal venous system. REPRODUCTIVE ORGANS: Unremarkable PERITONEUM/RETROPERITONEUM: Mild ascites. ABDOMINAL WALL/SOFT TISSUES: Fat and ascites containing bilateral inguinal hernias. Anasarca. Presumed injection sites in the bilateral anterior abdominal wall. BONES: Degenerative changes of the spine and hips. Median sternotomy. No suspicious osseous lesion. IMPRESSION IMPRESSION 1. Findings concerning for cholecystitis. 2. 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 3. Right upper lobe airspace opacity favoring pneumonia. Multiple small pulmonary nodules in both lungs are nonspecific and may be related to infection/inflammation or metastatic disease. Attention on follow-up imaging. 4. Small bilateral pleural effusions with ascites and anasarca. 5. Chronic findings, as above. Added to [facility] result communication system on 04/04/2024 at 3:26 am. XR BILIARY DUCT CATH, ENDOSCOPIC Final Result This is an imaging study not interpreted or resulted by a [facility] or [facility] contracted radiologist. 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 * DIFFERENTIAL AND PLAN: Septic shock - resolved Ascending cholangitis 2/2 plastic stent occlusion Deranged LFTs Hx met pancreatic CA s/p ERCP with stent placement 12/2023 Acute hypoxic Respiratory Failure RUL PNA (on CXR) - transfer from [facility] on 04/02/24 - to ICU and downgraded on same day - GI following - s/p ERCP with metal stent placement 04/02/24 -tolerating regular diet - monitor LFTs - plan to repeat ERCP for stent exchange in approx 6 months aspirin GI - continue to hold NURSING PROGRAM MANAGER antihypertensives: imdur, atenolol, ranolazine - NURSING PROGRAM MANAGER Lasix held in view of low BP, will try to restart NURSING PROGRAM MANAGER lasix given BLE pitting edema if BP allows - blood cultures drawn at [facility] grew Streptococcus constellatus and Gram-negative bacilli. Blood cultures drawn at [facility] is negative so far - to follow up final blood culture - continue iv zosyn -ID consulted and recommendations appreciated - monitor daily CMP CBC - lactate cleared - continue PT/OT - respiratory patient driven protocol, IS and flutter - currently 99% on RA - palliative following -GOC discussion-patient wants to continue all medical intervention necessary for recovery -CT abdomen/pelvis result as above -Oncology consulted for metastatic pancreatic cancer,recommended that they will not be offering himchemotherapy while in hospital due to current infection as well as poor performance status, to follow up as outpatient for treatment discussion. - GI and General Surgery consulted for imaging binding with cholecystitis, no active intervention, poor surgical candidate Elevated Troponin, likely demand ischemia Combined systolic and diastolic CHF Troponin 580>>533 EKG showing VR 83 Qtc 493, NSR with no new changes Echo: EF 40%, grade 1 diastolic dysfunction Discussed with Cardiology team via TT, suggested no further trending of troponin needed and no active intervention at this point Hyponatremia Na 129 Obtain urine electrolytes Monitor BMP Chronic medical conditions T2DM - hold NURSING PROGRAM MANAGER medications, MDSSI BPH - continue flomax CAD - continue asa and plavix GERD - continue protonix PHARMACOLOGIC VTE PROPHYLAXIS: hEParin CODE STATUS: No Code EXPECTED DISCHARGE DATE: No information available I spent a total of 60 minutes coordinating, documenting, and providing care for this patient excluding time spent in the performance of separately billed services or time spent by another provider/QHP. * Vijay Mckinley MD - 04/03/2024 9:20 AM EST PROGRESS NOTE - Gastroenterology Service [place] [address] Name: Mitchel Harmon Date: 04/03/2024 Time: 929 SUBJECTIVE: Patient seen and examined. Chart reviewed. Patient denies any new abdominal pain. Denies any nausea, vomiting overnight. Able to tolerate diet. Remains afebrile. Overall signs of sepsis or improving. ROS: Negative unless otherwise stated above. OBJECTIVE: Vital Signs Last 24 Hours: Systolic BP: Most Recent Systolic BP Av.4 mmHg Min: 92 mmHg Max: 117 mmHg Temperature: Most Recent Temperature Av.7 C Min: 35.78 C Max: 38.17 C Pulse: Pulse Av.2 Min: 70 Max: 110 Respirations: Resp Av.9 Min: 11 Max: 26 SpO2: SpO2 Av.1 % Min: 93 % Max: 100 % Constitutional: Elderly, chronically ill-appearing. No acute distress. CV: Radial pulse palpable, S1/S2. Chest: normal respiratory effort. No audible wheezing. GI: Soft, nontender, nondistended. BSx4. Extremities: No edema. Neurology: Alert and oriented to person, place and time. LABS: Reviewed in [facility]. IMAGING: Reviewed in [facility]. S/p ERCP: Prior biliary sphincterotomy appeared open. -One visible Jannie octreotide stent from biliary tree was seen in the major papilla. -a single localized biliary stricture was found in the lower 3rd of the main bile duct. -One stent was removed from the biliary tree. -the biliary tree was swept and pus and sludge were found. -One covered metal stent was placed into the common bile duct. ASSESSMENT: Mitchel Harmon is a 78 year old male with a PMH including of metastatic pancreatic cancer, s/p ERCP with biliary plastic stent on 01/16/2024, CAD status post multiple stents, CABG (1999), and IDDM, HTN, dyslipidemia presented to [facility] for generalized weakness and fatigue, chills, where he is found tohave hypotensive with concern of septic shock transferred to [facility] for further management treated with pressor support overnight and antibiotics now stable blood pressure, having abnormal LFTs with alkphos 821, bilirubin 2.3 with direct bilirubin 1.9, CT imaging concerning of gallbladder wall thickening, distended gallbladder with pericholecystic fluid, biliary stent in place and having concern ofcholangitis. S/p ERCP with occluded previous stent, biliary tree was swept noticed to have pus and sludge, s/p covered metal stent placement into CBD. Postprocedure patient is stable and able to tolerate diet. RECOMMENDATIONS: - Advance diet as tolerated. - Repeat ERCP for stent exchange Stent can remain for 6 months before exchanges needed. - monitor LFTs. - Antibiotics per primary for 5-7 days. Thank you for the consult. GI will remain available. Please call back with any questions. I have discussed the case with my attending, Dr. Parra. Vijay Mckinley MD, PGY-5 Gastroenterology and Hepatology Cosigned by Renetta Parra DO at 04/03/2024 1:30 PM EST Associated attestation - Renetta Parra DO - 04/03/2024 1:30 PM EST I saw and evaluated the patient today. I have reviewed the resident/fellow physician note and agree. * Alex Crooks DO - 04/03/2024 8:30 AM EST PROGRESS NOTE - Palliative Medicine [facility] [address] Name: Mitchel Harmon Location: [facility] B843/A Date: 04/03/2024 Time: 8:31 AM SUBJECTIVE: Patient seen and chart reviewed. Underwent EGD; however had a dizzy spell this morning when transferring from chair to bed. Met withseveral members with the family. He reports no symptoms at this time. Denies nausea, vomiting, pain, diarrhea or constipation. Patient and family are concerned about plan from Oncology regarding pursuing treatments. Per chart review pt underwent ERCP with removal of one stent. He requires repeat ERCP for stent exchange with follow-up every 6 months for exchange. At this time, patient will continue to follow through with disease directed therapy. OBJECTIVE: Most Recent Vital Signs: BP: 107 mmHg/63 mmHg (04/03/24633) Pulse: 84 (04/03/24633) Resp: 18 (04/03/24633) Temp: 36.94 C (04/03/24633) Temp Summary: Temp Min: 35.8 C (96.4 F) Max: 36.9 C (98.5 F) SpO2: 94 % (04/03/24633) O2 flow rate: 2 L/MIN (04/02/24 1620) Supplemental O2 Delivery: Room Air, None (04/03/24 0800) Vital Signs Last 24 Hours: Systolic BP: Most Recent Systolic BP Av.5 mmHg Min: 92 mmHg Max: 116 mmHg Temperature: Most Recent Temperature Av.1 C Min: 35.78 C Max: 36.94 C Pulse: Pulse Av.3 Min: 69 Max: 84 Respirations: Resp Av.5 Min: 11 Max: 26 SpO2: SpO2 Av.2 % Min: 93 % Max: 100 % Constitutional: no acute distress Chest: normal respiratory effort Extremities: no edema Skin: warm, dry, intact: Neuro: alert, oriented to person, place, and time LABS REVIEWED: yes, reviewed Latest Reference Range & Units 04/03/24 07:34 SODIUM 135 - 146 mmol/L 131 (L) POTASSIUM 3.5 - 5.1 mmol/L 3.6 CHLORIDE 98 - 107 mmol/L 98 CO2 22 - 32 mmol/L 21 (L) BUN 6 - 20 mg/dL 25 (H) CREATININE 0.6 - 1.2 mg/dL 0.9 EGFR >=60 mL/min 84 ANION GAP 7 - 15 mmol/L 12 GLUCOSE 70 - 120 mg/dL 157 (H) CALCIUM 8.4 - 10.2 mg/dL 8.6 Protein 6.0 - 8.3 g/dL 5.5 (L) CBC Rpt ! WBC 4.00 - 10.80 K/uL 23.71 (H) RBC 4.50 - 5.25 M/uL 3.53 HGB 14.0 - 16.8 g/dL 10.1 (L) HCT 40.0 - 48.4 % 31.5 (L) MCV 82.0 - 99.5 fL 89.2 MCH 27.0 - 34.0 pg 28.6 MCHC 32.0 - 36.0 g/dL 32.1 RDW 11.5 - 15.5 % 17.6 PLT 140 - 400 K/uL 357 MPV 6.6 - 11.1 fL 9.2 (L): Data is abnormally low (H): Data is abnormally high !: Data is abnormal Rpt: View report in Results Review for more information IMAGING REVIEWED: yes, reviewed ASSESSMENT/PLAN: Mitchel Harmon is a/an 78 year old male referred for consultation to Palliative Medicine with the primary diagnosis of: Cancer: Metastatic Pancreatic Adenocarcinoma Secondary Diagnoses are hypertension, heart disease, hyperlipidemia, diabetes GOC Discussion - re-engage goals of care conversation this morning with family members at bedside. We expressed our role as Palliative Care to continue to support patient and patient's preferences. At this time, patient would like to pursue disease directed therapy and awaiting a plan for Oncology. At this time, patient reporting any active symptoms. We discussed our involvement and will continue to support as needed. - Will continue to support pt and family with goals as clinical course evolve. - Can follow up with Palliative Care team at [place] upon discharge. Palliative Encounter Reviewed palliative care involvement for symptom assessment and management related to serious illness or related to disease-directed treatment. We discussed our involvement as support, coordination, advanced care planning discussion, and advance directives discussion. Thank you for allowing us to participate in the ongoing care of this patient. Please don't hesitate to call or page with any additional concerns. Cosigned by Sachi Carter MD at 04/03/2024 4:41 PM EST Associated attestation - Sachi Carter MD - 04/03/2024 4:41 PM EST I saw and evaluated the patient today. I have reviewed the resident/fellow physician note and agree. Met with patient's children at the bedside. Introduced Palliative Medicine. Awaiting for Oncology consult today. Patient prefers to see Palliative Medicine at [facility] after hospital discharge * Jesse Stinson MD - 04/03/2024 7:54 AM EST Images from the original note were not included. [facility] B843/A INTERVAL HISTORY: Overnight, no acute events. This morning, patient was seen and examined at bedside. I received a call from physician who took care of the patient at [facility], he inform the blood culture drawn there grew Gram-positive cocci in chains and Gram-negative bacilli. Blood cultures drawn at [facility] is negative so far, to follow up final blood culture. Patient on IV Zosyn. ID consulted and awaiting recommendations. GI on board for concern of acute cholangitis. S/p ERCP with occluded previous stent on 04/02/2024. Patient is on liquid diet and to advance diet as tolerated. GI recommended stent exchange in 6 months. Palliative team on board for goals of care discussion, patient would like to pursue disease directed therapy at this time. Oncology consulted for metastatic pancreatic cancer, awaiting recommendations. PT/OT eval. Objective Physical Exam Most Recent Vital Signs: BP: 107 mmHg/63 mmHg (04/03/24633) Pulse: 84 (04/03/24633) Resp: 18 (04/03/24633) Temp: 36.94 C (01/10/25 0634) Temp Summary: Temp Min: 35.8 C (96.4 F) Max: 36.9 C (98.5 F) SpO2: 94 % (04/03/24 0634) O2 flow rate: 2 L/MIN (04/02/24 1620) Supplemental O2 Delivery: Room Air, None (04/03/24 0800) Constitutional: no acute distress HEENT: normal: normocephalic, atraumatic Eyes: sclera and conjunctiva normal Neck: supple, normal range of motion CV: normal rate and rhythm, no murmur, gallops or rub Chest: normal respiratory effort, lungs clear to auscultation Abdomen: soft, (+) distended, no tenderness to palpatino Extremities: (+) BLE 3+ pitting edema Neuro: alert, oriented to person, place, and time Psych: normal mood and affect Urethral Catheter (Active) Number of days: 1 Peripheral Line Right Hand 20 Gauge (Active) Number of days: Implanted IV Device Right Chest (Active) Number of days: 60 STUDIES: Encounter Orders Labs and other studies reviewed with pertinent findings noted below: Labs: Recent Results (from the past 6 hours) GLUCOSE METER, POINT OF CARE Collection Time: 04/03/24 6:38 AM Result Value Ref Range GLUCOSE - POCT 164 (H) 70 - 120 mg/dL Imaging: XR BILIARY DUCT CATH, ENDOSCOPIC Final Result This is an imaging study not interpreted or resulted by a [facility] or [facility] contracted radiologist. 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 * DIFFERENTIAL AND PLAN: Septic shock - resolved Ascending cholangitis 2/2 plastic stent occlusion Hx met pancreatic CA s/p ERCP with stent placement 12/2023 RUL PNA (on CXR) - transfer from [facility] on 04/02/24 - to ICU and downgraded on same day - GI following - s/p ERCP with metal stent placement 04/02/24 - CLD, advance as tolerated - monitor LFTs - plan to repeat ERCP for stent exchange in approx 6 months - continue to hold NURSING PROGRAM MANAGER antihypertensives: imdur, atenolol, ranolazine - will try to restart NURSING PROGRAM MANAGER lasix tomorrow given BLE pitting edema if BP allows - I received a call from physician who took care of the patient at [facility], he inform the blood culture drawn there grew Gram-positive cocci in chains and Gram-negative bacilli. Blood cultures drawn at [facility] is negative so far - to follow up final blood culture - continue iv zosyn -ID consulted and awaiting recommendations - monitor daily CMP CBC - lactate cleared - continue PT/OT - hale catheter remains in place - respiratory patient driven protocol, IS and flutter - currently 99% on RA - palliative following -GOC discussion-patient wants to continue all medical intervention necessary for recovery -CT abdomen/pelvis with IV contrast ordered with allergy prep-pending -Oncology consulted for metastatic pancreatic cancer, awaiting recommendations Elevated Troponin, likely demand ischemia Troponin 580>>533 EKG showing VR 83 Qtc 493, NSR with no new changes Discussed with Cardiology team via TT, suggested no further trending of troponin needed and no active intervention at this point, to follow up echo Chronic medical conditions T2DM - hold NURSING PROGRAM MANAGER medications, MDSSI BPH - continue flomax CAD - continue asa and plavix GERD - continue protonix PHARMACOLOGIC VTE PROPHYLAXIS: hEParin CODE STATUS: No Code EXPECTED DISCHARGE DATE: No information available I spent a total of 60 minutes coordinating, documenting, and providing care for this patient excluding time spent in the performance of separately billed services or time spent by another provider/QHP. * Ann Jay PA-C - 04/02/2024 10:27 PM EST TRANSFER RECEIVING NOTE - IM [facility] [place] [id number] Name: Mitchel Harmon [facility] COMMUNICATION: Sending patient service: [facility] Accepting service: Hospital medicine Sending attending aware of patient and transfer: yes Receiving attending aware of patient and transfer: yes Name of receiving attending provider: Dr. Chadwick Patient care is being assumed by receiving service: 10:28 PM in current location Reason for transfer: continuation of care outside of ICU SUBJECTIVE: Per ICU transfer note, "Patient arrived to [facility] on 04/02 from [facility] for septic shock 2/2 to likely ascending cholangitis from stent occlusion. Patient has a history of metastatic pancreatic cancerto liver s/p EGD & ERCP in 12/2023 with stent placement. He underwent ERCP on 04/02 with metal stent replacement and was successfully weaned off levophed. At this time, patient is medically stable for the floors. " Patient resting comfortably during exam. States he is currently not in pain although only tried drinking water and hot tea and said that he did ok with tea but not great. Denies dyspnea and cough. Denies using oxygen at home and currently on RA. Hale catheter in place, will do voiding trial tomorrow. No further complaints at this time. Denies chest pain, n/v, headaches and lightheadedness CURRENT HOSPITAL MEDICATIONS: Note that completed medications (per the MAR) continue to display for 24 hours. Ordered medicationsto be given in the future also display. Current Facility-Administered Medications Medication Dose Route Frequency Provider chlorHEXIDINE (Periogard) 0.12 % oral rinse 15 mL 15 mL Oral mucosal membrane BID (799,1999) Marixa Clarke, DO dextrose 50% inj 25 mL 25 mL IV Push PRN Tricia, Marixa, DO dextrose 50% inj 50 mL 50 mL IV Push PRN Tricia, Marixa, DO glucagon (Glucagen) inj 1 mg 1 mg Intramuscular PRN Tricia, Marixa, DO Glucose (Glutose 15) 40 % gel 15 g of glucose 15 g of glucose Oral PRN Tricia, Marixa, DO Glucose (Glutose 15) 40 % gel 30 g of glucose 30 g of glucose Oral PRN Tricia, Marixa, DO glucose chew tab 16 g 16 g Oral PRN Tricia, Marixa, DO hEParin inj 5,000 Units 5,000 Units Subcutaneous Q8H Tricia, Marixa, DO insulin aspart (NovoLOG) inj Subcutaneous Q6H Tricia, Marixa, DO Oral Hygiene: Mouth Swab with dentifrice Oral Q4H Limited (00;04;12;16) Marixa Clarke, DO oxygen GAS Inhalation Mars Ricardo DO Piperacillin-Tazobactam (Zosyn) 4.5 g in 100 mL NSS ivpb (FOUR hour infusion) 4.5 g IV Piggyback Q8H Tricia, Marixa, DO sodium chloride 0.9 % flush peripheral radha 3 mL 3 mL IV Push Q8H Tricia, Marixa, DO TRANSFER MEDICATION RECONCILIATION COMPLETED? yes OBJECTIVE: Most Recent Vital Signs: BP: 92 mmHg/55 mmHg (04/02/242099) Pulse: 72 (04/02/242099) Resp: 11 (04/02/242099) Temp: 35.89 C (04/02/241999) Temp Summary: Temp Min: 35.8 C (96.4 F) Max: 36.6 C (97.9 F) SpO2: 99 % (04/02/242099) O2 flow rate: 2 L/MIN (04/02/241619) Supplemental O2 Delivery: Room Air, None (04/02/242099) Vital Signs Last 24 Hours: Systolic BP: Most Recent Systolic BP Av mmHg Min: 92 mmHg Max: 143 mmHg Temperature: Most Recent Temperature Av.1 C Min: 35.78 C Max: 36.61 C Pulse: Pulse Av.8 Min: 69 Max: 94 Respirations: Resp Av.2 Min: 10 Max: 26 SpO2: SpO2 Av.3 % Min: 95 % Max: 100 % Intake/Output Summary (Last 24 hours) at 04/02/20242226 Last data filed at 04/02/20241999 Gross per 24 hour Intake 1241.14 ml Output 1440 ml Net -198.86 ml Constitutional: no acute distress HEENT: normal: normocephalic, atraumatic Eyes: sclera and conjunctiva normal Neck: supple, normal range of motion CV: normal rate and rhythm, no murmur, gallops or rub Chest: normal respiratory effort, lungs clear to auscultation Abdomen: soft, (+) distended, no tenderness to palpatino Extremities: (+) BLE 3+ pitting edema Neuro: alert, oriented to person, place, and time Psych: normal mood and affect LABS: Labs reviewed as indicated below: Lab results within last 7 days (see chart for full results) Units 04/02/24 0458 04/02/24 0158 04/01/24 0950 HGB g/dL 7.8* 8.8* 8.7* HCT % 24.5* 27.5* 27.4* WBC K/uL 29.75* 38.04* 15.04* PLT K/uL 274 354 382 Lab results within last 7 days (see chart for full results) Units 04/02/24 0458 04/02/24 0158 04/01/24 0950 SODIUM mmol/L 131* 130* 127* POTASSIUM mmol/L 4.3 4.5 4.6 CHLORIDE mmol/L 99 98 94* CO2 mmol/L 20* 19* 22 BUN mg/dL 21* 20 16 CREATININE mg/dL 1.2 1.2 0.8 IMPRESSION and PLAN: Septic shock - resolved Ascending cholangitis 2/2 plastic stent occlusion Hx met pancreatic CA s/p ERCP with stent placement 12/2023 RUL PNA (on CXR) - transfer from [facility] on 04/02/24 - to ICU and downgraded on same day - GI following - s/p ERCP with metal stent placement 04/02/24 - CLD today, advance as tolerated - monitro LFTs - repeat ERCP for stent exchange in approx 6 months - continue to hold NURSING PROGRAM MANAGER antihypertensives: imdur, atenolol, ranolazine - will try to restart NURSING PROGRAM MANAGER lasix tomorrow given BLE pitting edema if BP allows - continue zosyn - monitor daily CMP CBC - lactate cleared - continue PT/OT - hale catheter remains in place, consider voiding trial tomorrow - respiratory patient driven protocol, IS and flutter - currently 99% on RA - palliative following Chronic medical conditions T2DM - hold NURSING PROGRAM MANAGER medications, MDSSI BPH - continue flomax CAD - continue asa and plavix GERD - continue protonix Cosigned by Mansi Chadwick MD at 04/03/2024 12:50 AM EST Associated attestation - Mansi Chadwick MD - 04/03/2024 12:50 AM EST I saw and evaluated the patient on 04/03/23. The patient is a 78 year old male with past medical history significant for metastatic pancreatic cancer to the liver diagnosed s/p EGD/ERCP on 01/16/24 with stent placement, CAD status post multiplestents, CABG, T2DM, hypertension dyslipidemia who was admitted to Critical Care Medicine as a transfer from [facility] for septic shock. The patient initially presented to outside hospital with complaints of generalized weakness, fatigue and chills. He was found to be hypotensive with concern of septic shock, abnormal liver function enzymes with elevated alk-phos and bilirubin as well as CT imaging concerning for gallbladder wall thickening, distended gallbladder with perichole cystic fluid and biliary stent in place with no change in biliary ductal dilation. He received 1 unit of packed red blood cells at outside hospital for hemoglobin of 7.7. The patient was transferred to [facility] for further management. Source of sepsis was suspected to be acute cholecystitis versus ascending cholangitis. Patient initially required vasopressor support, received additional fluids and was started on Zosyn. General Surgery was consulted who deemed no acute surgical intervention was warranted and recommended Gastroenterology consult for ERCP to evaluate biliary stent. Palliative Medicine consult was also recommended as patient was deemed not to be a good surgical candidate given disease progression. Gastroenterology was consulted the patient underwent ERCP to assess for suspected ascending cholangitis with plan for stent exchange. The patient underwent ERCP on04/02/23 , prior biliary sphincterotomy appeared to be open, 1 stent was removed from the biliary tree and 1 covered metal stent was placed in the common bile duct. Patient was suspected to have cholangitis with obstructive plastic biliary stent. Clear liquid diet was recommended with advancement tomorrow as tolerated. Patient will require repeat ERCP for stent exchange pending goals of care discussion with Palliative Medicine. * Marixa Clarke DO - 04/02/2024 8:52 PM EST BRIEF TRANSFER OUT OF INTENSIVE CARE NOTE - CRITICAL CARE MEDICINE [facility] [id number] Name: Mitchel Harmon Current Location: [address] Primary ICU Problem: Septic shock ICU Course/Complications: Patient arrived to [facility] on 04/02 from [facility] for septic shock 2/2 to likely ascending cholangitis from stent occlusion. Patient has a history of metastatic pancreatic cancer to liver s/p EGD & ERCP in 12/2023 with stent placement. He underwent ERCP on 04/02 with metal stent replacement and was successfully weaned off levophed. At this time, patient is medically stable for the floors. Delirium: No Mechanical Ventilation: Intubated: No Difficult airway: N/A Major Procedures: ERCP 04/02 with stent replacement Medications: Medication changes: None Antibiotics: No Pending ICU Issues: Active issues currently being followed or monitored at time of transfer out of ICU: Cholangitis Consults following or that need to be accomplished: GI & Palliative care medicine Central Lines/Chest Tubes/PICC/IUBC: Remaining in place: No (previous mediport) Family Meeting/Goals of Care: No Code Family meeting summary/decision makers: Brother, Jaden Follow Up: Outpatient follow up clinics/labs/studies: CTA chest, abdomen, pelvis to assess for mets ALLERGICTO CONTRAST DYE AND WILL NEED TO BE PREMEDICATED PRIOR IF DONE HERE Incidental findings that need to be addressed: N/A Marixa Clarke DO Critical Care Medicine Fellow Cosigned by Valdez Starr DO at 04/02/2024 9:00 PM EST * Uriel Mosqueda DO - 04/02/2024 8:40 AM EST CCM - PROGRESS NOTE [facility] [phone] Name: Mitchel Harmon Location: [facility] HFAM/Endo Date: 04/02/2024 Time: 1:41 PM Date of admission: 04/02/2024 Hospital length of stay: 0 days Subjective PATIENT DESCRIPTION: Patient is a 78 year old male with a medical history of metastatic pancreatic cancer to the liver diagnosed in December s/p EGD & ERCP on 01/16/2024 with stent placement. Other medical history includes CAD s/p multiple stents (2009) and CABG (1999), noninsulin dependent T2DM, HTN and HLD. Initially he presented to his outpatient PCP early in day on 04/01 for progressive weakness and fatigue. His PCP said he had pneumonia and recommended he go to the ER. We was admitted to [facility] and wasgiven 1.5L fluids before starting levophed and cefepime. CT scan chest, abdomen, pelvis without contrast notable for increase in gallbladder wall thickening with distension and pericholecystic fluid.Biliary stent was in place with no change in biliary duct dilation. There was concern his septic shock was attributable to cholecystitis and may need IR for intervention. EVENTS OF NOTE: 04/02: Transferred from [facility]. General surgery, GI, palliative care team were consulted. Weaned off vasopressors INTERIM HISTORY / SUBJECTIVE: Patient seen at the bedside and largely had a negative review of system. Denies any issues at this time Objective CONSTITUTIONAL DATA / OBJECTIVE: Vital Signs (Most Recent): Pulse: 69 (04/02/24 1300) BP: 112/56 (04/02/24 1300) Resp: 20 (04/02/24 1300) Temp: 36.5 C (97.7 F) (04/02/24 1200) SpO2: 100 % (04/02/24 1300) Vital Signs (Last 24 Hours): Pulse Av.4 Min: 69 Max: 94 No data recorded Most Recent Systolic BP Av.1 mmHg Min: 93 mmHg Max: 143 mmHg Most Recent Diastolic BP Av.4 mmHg Min: 43 mmHg Max: 81 mmHg Resp Av.3 Min: 10 Max: 26 Most Recent Temperature Av.3 C Min: 36 C Max: 36.61 C SpO2 Av % Min: 95 % Max: 100 % Ventilatory Support: HFNC: O2 flow rate: 1 L/MIN (04/02/24 0800) CPAP/EPAP: IPAP: Ventilator Settings: Intake & Output Summary (Last 24 hours): Intake/Output Summary (Last 24 hours) at 04/02/2024 1341 Last data filed at 04/02/2024 1100 Gross per 24 hour Intake 636.34 ml Output 1050 ml Net -413.66 ml Net IO Since Admission: 61.34 mL [04/02/24 0840] Height & Weight: Height: 167.6 cm (5' 5.98") (04/02/24 0130) Weight: 70.3 kg (154 lb 15.7 oz) (04/02/24 0600) Weight change: Body mass index is 25.03 kg/m. Physical Examination: General: NAD, pleasant, elderly, HEENT: NCAT, EOMI b/l Neck: soft, supple Chest: no deformities Heart: RRR, systolic murmurs Lungs: crackles b/l in the lower lobes, on 1L NC Abdomen: Soft, nontender, nondistended, no rosado's signs Extremities: no lower extremity edema Neuro: Alert, awake and following commands Laboratory Values: -- Brief labs below include the 7 most recent results over the past week. Blood Gas: No results in the last 7 days - inpatent use only Chemistry Panel: Lab results within last 7 days (see chart for full results) Units 04/02/24 0458 04/02/24 0158 04/01/24 0950 SODIUM mmol/L 131* 130* 127* POTASSIUM mmol/L 4.3 4.5 4.6 CHLORIDE mmol/L 99 98 94* CO2 mmol/L 20* 19* 22 EGFR mL/min 62 65 89 BUN mg/dL 21* 20 16 CREATININE mg/dL 1.2 1.2 0.8 GLUCOSE mg/dL 105 78 156* CALCIUM mg/dL 8.5 9.0 8.6 Magnesium mg/dL -- 1.9 -- Phosphorus mg/dL -- 3.6 -- ANION GAP mmol/L 12 13 11 Complete Blood Count: Lab results within last 7 days (see chart for full results) Units 04/02/24 0458 04/02/24 0158 04/01/24 0950 WBC K/uL 29.75* 38.04* 15.04* HGB g/dL 7.8* 8.8* 8.7* HCT % 24.5* 27.5* 27.4* PLT K/uL 274 354 382 MCV fL 89.7 88.7 91.0 Cardiac Studies: Lab results within last 7 days (see chart for full results) Units 04/02/24 0458 04/02/24 0158 Troponin T, High Sensitivity ng/L 533* 580* Coagulation Studies: Lab results within last 7 days (see chart for full results) Units 04/02/24 0158 Prothrombin Time seconds 16.8* INR 1.3* Liver Function Panel: Lab results within last 7 days (see chart for full results) Units 04/02/24 0458 04/02/24 0158 04/01/24 0950 Albumin g/dL 2.6* 2.4* 2.6* Protein g/dL 5.3* 5.5* 5.2* Bilirubin, Total mg/dL 2.0* 2.3* 1.9* Bilirubin, Direct mg/dL 1.6* 1.9* -- AST U/L 138* 142* 63* ALT U/L 50 60* 44 Alkaline Phosphatase U/L 685* 821* 969* Infectious Studies: Lab results within last 7 days (see chart for full results) Units 04/02/24 1115 04/02/24 0458 04/02/24 0158 Lactate mmol/L 1.8 2.1* 2.4* Radiographic Studies: XR CHEST 2 VIEWS Result Date: 04/01/2024 IMPRESSION Right upper lobe pneumonia. Cultures: Recent Cultures (2 Weeks) 04/02/2024 1:58 AM BLOOD CULTURE GROWTH No growth to date No growth to date Assessment & Plan Active Problems: 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) (POA: Yes) BPH (benign prostatic hyperplasia) (POA: Yes) HTN, goal below 140/90 (POA: Yes) Overview: Per HTN Protocol #27. Coronary artery disease of [place] artery of [place] heart with stable angina pectoris (HCC) (POA: Yes) Gastroesophageal reflux disease without esophagitis (POA: Yes) 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) (POA: Yes) Acute cholecystitis (POA: Unknown) Sepsis without acute organ dysfunction (HCC) (POA: Unknown) POA = Present On Admission NEUROLOGIC: No active issues RASS Assessment: 0 Alert and Calm (04/02/24 1200) Current Pain Score: 0 (no pain) (04/02/24 1200) Delirium/Confusion Assessment: CAM-ICU Positive?: No (04/02/24 0800) Palliative care consulted. Appreciate recs PULMONARY / RESPIRATORY: # Acute hypoxic respiratory failure # RUL Pneumonia # Emphysema Requiring 1L nasal cannula Maintain sats >92% Incentive spirometer and flutter valve Respiratory driven protocol Wean O2 as tolerated CARDIOVASCULAR: # Septic shock 2/2 PNA vs gallbladder etiology, improving # History of CAD s/p multiple stents and CABG # History of hypertension # Hyperlipidemia Bedside POCUS with collapsible IVC suggesting volume responsive state. Currently off vasopressors Monitor off vasopressors NORepinephrine Dose (mcg/min): 0 mcg/min (04/02/24 0520) Hold NURSING PROGRAM MANAGER antihypertensives of imdur, atenolol & furosemide MAP > 65 mmHg GASTROINTESTINAL / HEPATOBILIARY: # Metastatic pancreatic cancer to the liver s/p ERCP & stent placement 12/2023 # GERD GI consulted Plan for ERCP stent exchange today General surgery consult No acute interventions If no ERCP, can obtain a HIDA scan Bowel Regimen: not indicated Stress Ulcer Prophylaxis: not indicated at this time.. Diet / Nutrition: NPO Last Bowel Movement: 04/02/24 (04/02/24 0800) Stool Description: Large;Brown;Mushy (04/02/24 0800) RENAL / METABOLIC / FLUIDS: # Hyponatremia # Lactic acidosis # BPH Lactate elevated to 2.4, Hale catheter placed at [facility], exchanged on arrival. Trend q6 hours to resolution Holding NURSING PROGRAM MANAGER meds while NPO Monitor electrolytes Replete electrolytes as indicated Strict monitoring of fluid intake and output Renal dosing and medication considerations adjusted for glomerular filtration rate Daily weights INFECTIOUS DISEASES: # RUL PNA # Possible cholecystitis vs ascending cholangitis # Recent C.diff infection MRSA nares negative Antibiotic Regimen: Zosyn Obtain RVP and C.diff 04/02/24 Blood cultures Trend temp curve & WBC ENDOCRINE: # Type II diabetes mellitus Blood Glucose Monitoring (BGM) Goal: 140-180. MDSSI, Accuhecks q6 hours hypoglycemia protocol Holding NURSING PROGRAM MANAGER oral antihyperglycemic agents Most recent: Glucose (Bedside): 101 (04/02/24 1200) Last 24 hours: Glucose (Bedside) Av.7 Min: 82 Max: 113 Last 36 hours: Glucose (Bedside) Av.7 Min: 82 Max: 113 Last 48 hours: Glucose (Bedside) Av.7 Min: 82 Max: 113 HEMATOLOGIC: B12 deficiency VTE/DVT Prophylaxis: chemoprophylaxis with pneumatic compression devices MUSCULOSKELETAL / DERMATOLOGIC / P.T / O.T. / MOBILITY: Debilitation Physical Decondition PT/OT LINES / DRAINS / TUBES: LINES ALL Duration Peripheral Line Right Hand 20 Gauge -- days Peripheral Line Right Wrist 20 Gauge -- days Implanted IV Device Right Chest 59 days Urethral Catheter <1 day GLOBAL ISSUES: Code Status: No Code Analgesia: no pain Sedation: N/A Delirium/Confusion Assessment Method for ICU (CAM-ICU): CAM-ICU negative HOB Elevation: greater than 30 degrees Nutrition: NPO DVT Prophylaxis: chemoprophylaxis with pneumatic compression devices Stress Ulcer Prophylaxis: not indicated Glycemic Control: controlled - protocol Central Line Necessity Reviewed: N/A Hale: reviewed and needed Disposition: keep in ICU Patient's decisional capacity: has capacity to make decisions Communication with Patient/Family: updated family during rounds on 04/02/24 Goals of Care: stabilize hemodynamic status and decrease pain and discomfort Patient was seen and discussed on rounds with DO Corwin Henriquez DO Please contact via TigerText with any questions or concerns I saw and evaluated the patient today. I have reviewed the resident/fellow physician note and agree. Mr. Harmon is a 78-year-old male with metastatic pancreatic cancer admitted on 04/02/[address] [facility] with septic shock due to cholecystitis vs ascending cholangitis, secondary toconcern for biliary stent occlusion. Since admission, he has been afebrile and norepinephrine has been weaned off. Last documented bowelmovement 04/02/2024. Chest x-ray completed yesterday showed a right upper lobe infiltrate. Labs reviewed. GI evaluated him and will plan for ERCP today. Continue current antibiotic regimen. Obtain RVP, respiratory culture, C diff. He is agreeable to Palliative Care consultation. documented in this encounter H&P Notes * Magdiel Mendoza MD - 04/02/2024 3:13 PM EST Endoscopy Pre-Procedure Assessment Name: Mitchel Harmon Date: 04/02/2024 Time: 3:13 PM Procedure(s): ERCP; with Indication(s) of stent removal or exchange Endoscopy Pre-Procedure Assessment: Prior to the procedure, the patient is identified. The patient's history, medications and allergieshave been reviewed. The patient is competent. The risks and benefits of the proposed procedure and the planned sedation have been discussed with the patient. All questions have been answered and informed consent for the procedure has been obtained. Prior to Admission medications Medication Sig Last Dose Discont. oxygen IN GAS Administer 2 L/min(Oxygen) into nostril continuous. Furosemide 40 MG Oral Tablet (Lasix) One tablet daily Potassium Chloride ER 10 MEQ Oral Capsule Extended Release Take 1 Capsule by mouth in the morning. diphenhydrAMINE HCl 50 MG Oral Capsule (Benadryl) Take 1 capsule [address] appt predniSONE 50 MG Oral Tablet (Deltasone) Take 1 tablet 13 hours, 7 hours, and [address] appt Fluconazole 40 MG/ML Oral Suspension Reconstituted (Diflucan) Take 5 mL by mouth in the morning. Loperamide HCl 2 MG Oral Tablet (Imodium A-D) Take 1 Tablet by mouth 3 times a day as needed for Diarrhea. Then one tablet after each loose BM, no more than 3 tablets per day metFORMIN HCl ER 500 MG Oral Tablet Extended Release 24 Hour (Glucophage XR) Take 2 Tablets by mouth 2 times a day with morning and evening meals. Ranolazine ER 500 MG Oral Tablet Extended Release 12 Hour Take 1 Tablet by mouth in the morning and1 Tablet before bedtime. Atenolol 50 MG Oral Tablet (Tenormin) Take 1 Tablet by mouth in the morning. glipiZIDE ER 2.5 MG Oral Tablet Extended Release 24 Hour (glipiZIDE XL) Take 1 Tablet by mouth in the morning. Before breakfast. Magic Swizzle (Inwzwtxki-Qqjcsfzi-Qnacdh) oral solution Swish and spit 15 mL in the morning and 15 mL at noon and 15 mL before bedtime. Acetaminophen 500 MG Oral Tablet (Tylenol) Take 2 Tablets by mouth every 6 hours as needed for Pain, Breakthrough (up to 3000 mg daily (6 tablets)). Magnesium Oxide 400 MG Oral Tablet Take 1 Tablet by mouth in the morning and 1 Tablet before bedtime. Lidocaine-Prilocaine 2.5-2.5 % External Cream (Emla) APPLY TO SKIN OVER MEDIPORT & COVER 1HR PRIOR TO ACCESSING. Ondansetron HCl 8 MG Oral Tablet (Zofran) Take 1 Tablet by mouth every 8 hours as needed for Nausea. Prochlorperazine Maleate 10 MG Oral Tablet (Compazine) Take 1 Tablet by mouth every 6 hours as needed for Nausea. Nitroglycerin 0.4 MG Sublingual Tablet Sublingual (Nitrostat) One tablet under tongue if needed forchest pain. May repeat 3 times. If chest pain continues, call 911 Fluticasone Propionate 50 MCG/ACT Nasal Suspension (Flonase) ADMINISTER ONE SPRAY INTO EACH NOSTRILDAILY Cyanocobalamin 1000 MCG/ML Injection Solution (Cyanocobalamin) INJECT 1ML INTRAMUSCULARLY EVERY 30 DAYS Patient taking differently: INJECT 1ML INTRAMUSCULARLY EVERY other 30 DAYS Clopidogrel Bisulfate 75 MG Oral Tablet (pLAVix) TAKE ONE TABLET BY MOUTH EVERY DAY Pantoprazole Sodium 20 MG Oral Tablet Delayed Release (Protonix) Take 1 Tablet by mouth in the morning. Isosorbide Mononitrate ER 60 MG Oral Tablet Extended Release 24 Hour (Imdur) TAKE ONE TABLET BY MOUTH TWICE A DAY Patient taking differently: Taking 2 tablets in the morning Tamsulosin HCl 0.4 MG Oral Capsule (Flomax) TAKE ONE CAPSULE BY MOUTH TWICE A DAY Ranolazine ER 1000 MG Oral Tablet Extended Release 12 Hour TAKE ONE TABLET BY MOUTH TWICE A DAY Vitamin D3 25 MCG (1000 UT) Oral Capsule Take 1 Capsule by mouth every evening. Kanshu Ultra 2 w/Device Kit Use to test blood glucose 4 times daily. DX: E11.9 Probiotic Product (PROBIOTIC ACIDOPHILUS BIOBEADS) Capsule Take 1 Cap by mouth daily before breakfast. Iron-Vitamin C 65-125 MG Tablet Take 1 Tablet by mouth every other day. Multiple Vitamin (MULTI-DAY) Tablet Take 1 Tablet by mouth every evening. ASPIRIN 81 MG PO CHEW Take 1 Tablet by mouth at bedtime. Review of patient's allergies indicates: Allergen Reactions Iodinated Contrast Media Rash Pt got a rash after his cath on 08/23/09 Levofloxacin Nausea jittery Lisinopril Cough Rash BP 113/57 | Pulse 72 | Temp 35.8 C (96.4 F) (Tympanic) | Resp 20 | Ht 1.676 m (5' 5.98") | Wt 70.3 kg (154 lb 15.7 oz) | SpO2 100% | BMI 25.03 kg/m | BSA 1.81 m Physical Exam: Mental Status Examination: alert and oriented. Airway Examination: normal oropharyngeal airway and neck mobility. Respiratory Examination: clear to auscultation. CV Examination: normal. ASA Grade: III - A patient with severe systemic disease. Abdomen: negative This patient has undergone a preprocedural evaluation. A determination has been made to proceed with the planned procedure under [facility] procedural guidelines and the [facility] Non-Emergent, Elective Medical Services and Treatment Recommendations (published on 06-30-19). The community and hospital prevalence of COVID-19 has been discussed as well as this patient's specific risks associated with SARS-CoV-19 infection. Based upon the clinical acuity and patient-specific care considerations, this procedure is deemed a Tier II - Intermediate acuity treatment or service with either progression or the threat of progressive disease related to the delay in treatment. Not providing the service has the potential for increasing morbidity or mortality. After reviewing the risks and benefits, the patient is deemed in satisfactory condition to undergo the procedure. The anesthesia plan is to use general anesthesia. Magdiel Mendoza MD 04/02/2024 * Marixa Clarke DO - 04/02/2024 1:30 AM EST HISTORY & PHYSICAL EXAMINATION - Critical Care Medicine [address] [address] Name: Mitchel Harmon [place] [facility] [place] A538/A Date: 04/02/2024 Date of admission: (Not on file) PRESENTING PROBLEM/CHIEF COMPLAINT: Weakness HISTORY OF PRESENT ILLNESS: Patient is a 78 year old male with a medical history of metastatic pancreatic cancer to the liver diagnosed in December s/p EGD & ERCP on 01/16/2024 with stent placement. Other medical history includes CAD s/p multiple stents (2009) and CABG (1999), noninsulin dependent T2DM, HTN and HLD. Initially he presented to his outpatient PCP early in day on 04/01 for progressive weakness and fatigue. His PCP said he had pneumonia and recommended he go to the ER. We was admitted to [facility] and wasgiven 1.5L fluids before starting levophed and cefepime. CT scan chest, abdomen, pelvis without contrast notable for increase in gallbladder wall thickening with distension and pericholecystic fluid.Biliary stent was in place with no change in biliary duct dilation. There was concern his septic cristi ck was attributable to cholecystitis and may need IR for intervention. Of note, patient did receive 1U PRBC's at outside hospital for hgb 7.7 which then responded appropriately to 8.7. There was concern for possible GI bleed but patient denied any blood in the stool or dark/tarry stool and patient did have bowel movement here that was described as brown in color. Aside from low blood pressure, his hemodynamics have remained appropriate. Per chart review, patient wasto undergo CT C/A/P scheduled for 04/17 to assess for further mets. His chemo is on hold for 6 weeks, he only received 2 rounds of chemo and is due for biliary duct stent exchange scheduled for 04/21/2024. Subjective PAST MEDICAL HISTORY: 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) 02/17/2024 Moderate aortic stenosis 11/28/2021 Stable angina (HCC) 08/24/2009 PAST SURGICAL HISTORY: Past Surgical History: Procedure Laterality Date CABG, ARTERIAL, TWO 03/25/1999 CATHETERIZE LEFT HEART THRU SKIN 09/23/2009 LEFT HEART CATH, PERCUTANEOUS performed by ESTLEA SANDOVAL at [facility] [place] COLONOSCOPY, DIAGNOSTIC (RECTUM) 10/12/2019 normal / COLONOSCOPY FLEXIBLE PROXIMAL DIAGNOSTIC performed by Mitchel Armenta MD at ENDOSCOPY [facility] CORONARY ARTERY DILATION, BALLOON 08/29/2009 PTCA, SINGLE VESSEL performed by ESTELA SANDOVAL at [facility] [place] EGD, FLEXIBLE, DIAGNOSTIC 10/12/2019 normal / ESOPHAGOGASTRODUODENOSCOPY (EGD), FLEXIBLE, TRANSORAL, DIAGNOSTIC performed by Mitchel Armenta MD at ENDOSCOPY [facility] EGD, W/ENDOSCOPIC US N/A 01/16/2024 mass pancreatic head/multiple metastatic lesion liver/biopsies show adenocarcinoma pancreas mets marco/ESOPHAGOGASTRODUODENOSCOPY (EGD), FLEXIBLE, TRANSORAL, ENDOSCOPIC ULTRASOUND performed by Jose E Bai MD at ENDOSCOPY [facility] ERCP, DIAGNOSTIC, SPECIMEN COLLECTION N/A 01/16/2024 single severe malignant appearing biliary stricture/one plastic biliary stent placed CBD/repeat 3 months/ENDOSCOPIC RETROGRADE CHOLANGIOPANCREATOGRAPHY (ERCP) DIAGNOSTIC performed by Jose E Bai MD at ENDOSCOPY [facility] REMOVE CATARACT, INSERT LENS PROSTH Bilateral FAMILY HISTORY: Family History Problem Relation Name Age of Onset Heart Disorder Mother Francisco Harmon Hypertension Mother Francisco Harmon Heart Disorder Father Jaden Harmon Hyperlipidemia Sister Lilian Friend [place] Heart Disorder Brother Jaden Harmon Diabetes Brother Jaden Harmon Asthma Daughter Iker Yeager Diabetes Daughter Iker Yeager SOCIAL HISTORY: Social History Tobacco Use Smoking status: Former Current packs/day: 0.00 Average packs/day: 1 pack/day for 25.0 years (25.0 ttl pk-yrs) Types: Cigarettes Start date: 1960 Quit date: 1985 Years since quittin.0 Passive exposure: Past Smokeless tobacco: Former Tobacco comments: quit in 1984. Vaping Use Vaping status: Never Used Substance Use Topics Alcohol use: Yes Comment: occasionally Drug use: No PRIOR TO ADMISSION MEDS: Current Outpatient Medications Medication Instructions Acetaminophen (TYLENOL) 1,000 mg, Q6H PRN aspirin 81 mg, HS Atenolol (TENORMIN) 50 mg, Oral, Daily(AM) Clopidogrel Bisulfate 75 MG Oral Tablet (pLAVix) TAKE ONE TABLET BY MOUTH EVERY DAY Cyanocobalamin 1000 MCG/ML Injection Solution (Cyanocobalamin) INJECT 1ML INTRAMUSCULARLY EVERY 30 DAYS diphenhydrAMINE HCl 50 MG Oral Capsule (Benadryl) Take 1 capsule [address] appt Fluconazole (DIFLUCAN) 200 mg, Daily(AM) Fluticasone Propionate 50 MCG/ACT Nasal Suspension (Flonase) ADMINISTER ONE SPRAY INTO EACH NOSTRILDAILY Furosemide 40 MG Oral Tablet (Lasix) One tablet daily glipiZIDE XL (GLIPIZIDE XL) 2.5 mg, Oral, Daily(AM), Before breakfast Iron-Vitamin C 65-125 MG Tablet 1 Tablet, EVERY OTHER DAY Isosorbide Mononitrate ER 60 MG Oral Tablet Extended Release 24 Hour (Imdur) TAKE ONE TABLET BY MOUTH TWICE A DAY Lidocaine Viscous HCl 2 % Mouth/Throat Solution 15 mL, Swish & Spit, PRN Lidocaine-Prilocaine 2.5-2.5 % External Cream (Emla) APPLY TO SKIN OVER MEDIPORT & COVER 1HR PRIOR TO ACCESSING. Loperamide (IMODIUM A-D) 2 mg, TID PRN Magic Swizzle (Quehigwcf-Doieqqwd-Hzaksl) oral solution 15 mL, Swish & Spit, TID(AM/NOON/HS) Magnesium Oxide 400 mg, BID (.AM/PM) metFORMIN ER (GLUCOPHAGE XR) 1,000 mg, Oral, BID (AM/PM MEALS) Multiple Vitamin (MULTI-DAY) Tablet 1 Tablet, DAILY(1899) Nitroglycerin 0.4 MG Sublingual Tablet Sublingual (Nitrostat) One tablet under tongue if needed forchest pain. May repeat 3 times. If chest pain continues, call 911 ondansetron (ZOFRAN) 8 mg, Oral, Q8H PRN Kanshu Ultra 2 w/Device Kit Use to test blood glucose 4 times daily. DX: E11.9 oxygen IN GAS 2 L/min(Oxygen), Nasal, CONTINUOUS pantoprazole (PROTONIX) 20 mg, Oral, Daily(AM) Potassium Chloride ER 10 MEQ Oral Capsule Extended Release 10 mEq, Oral, Daily(AM) predniSONE 50 MG Oral Tablet (Deltasone) Take 1 tablet 13 hours, 7 hours, and [address] appt Probiotic Product (PROBIOTIC ACIDOPHILUS LUCERODS) Capsule 1 Capsule, BEFORE BREAKFAST prochlorperazine (COMPAZINE) 10 mg, Oral, Q6H PRN ranolazine ER (RANEXA) 500 mg, Oral, BID (.AM/PM) Ranolazine ER 1000 MG Oral Tablet Extended Release 12 Hour TAKE ONE TABLET BY MOUTH TWICE A DAY Tamsulosin HCl 0.4 MG Oral Capsule (Flomax) TAKE ONE CAPSULE BY MOUTH TWICE A DAY Vitamin D3 25 MCG (1000 UT) Oral Capsule 1 Capsule, DAILY(1899) ALLERGIES: Iodinated contrast media, Levofloxacin, and Lisinopril ROS: Review of Systems Constitutional: Positive for chills. Cardiovascular: Negative for chest pain and syncope. Respiratory: Positive for shortness of breath and wheezing. Negative for cough. Gastrointestinal: Negative for constipation, hematemesis, melena, nausea and vomiting. +abdominal discomfort and incontinence Neurological: Positive for loss of balance and weakness. Negative for dizziness and light-headedness. Objective CONSTITUTIONAL DATA / OBJECTIVE: Vital Signs (Most Recent): Pulse: 90 (04/02/24199) BP: 114/70 (04/02/24199) Resp: 23 (04/02/24199) Temp: 36.6 C (97.9 F) (04/02/24129) SpO2: 99 % (04/02/24199) Vital Signs (Last 24 Hours): Pulse Av Min: 90 Max: 92 Most Recent Systolic BP Av.7 mmHg Min: 93 mmHg Max: 114 mmHg Resp Av.7 Min: 20 Max: 25 Most Recent Temperature Av.61 C Min: 36.61 C Max: 36.61 C SpO2 Av.7 % Min: 97 % Max: 100 % Ventilatory Support: O2 flow rate: 2 L/MIN (04/02/24199) IPAP: CPAP/EPAP: Intake & Output Summary (Last 24 hours): No intake or output data in the 24 hours ending 04/01/242222 Net IO: No IO data has been entered for this period [04/01/242222] Height & Weight: Weight: 70.3 kg (154 lb 15.7 oz) (04/02/24129) Wt Readings from Last 3 Encounters: 04/02/24 70.3 kg (154 lb 15.7 oz) 04/01/24 67.4 kg (148 lb 8 oz) 03/23/24 67.1 kg (148 lb) Weight change: Body mass index is 25.01 kg/m. Physical Examination: Physical Exam Constitutional: General: He is awake. He is not in acute distress. Appearance: He is underweight. He is ill-appearing. He is not toxic-appearing. HENT: Head: Normocephalic and atraumatic. Eyes: Extraocular Movements: Extraocular movements intact. Conjunctiva/sclera: Conjunctivae normal. Pupils: Pupils are equal, round, and reactive to light. Cardiovascular: Rate and Rhythm: Normal rate and regular rhythm. No extrasystoles are present. Pulses: Normal pulses and intact distal pulses. Femoral pulses are 2+ on the right side and 2+ on the left side. Dorsalis pedis pulses are 2+ on the right side and 2+ on the left side. Heart sounds: S1 normal and S2 normal. Murmur heard. Harsh midsystolic murmur is present at the upper right sternal border radiating to the neck. Pulmonary: Effort: No tachypnea. Breath sounds: Examination of the left-lower field reveals rhonchi. Rhonchi present. No wheezing orrales. Abdominal: General: Abdomen is protuberant. Bowel sounds are normal. Palpations: Abdomen is soft. Tenderness: There is abdominal tenderness in the right lower quadrant. Negative signs include Rosado's sign. Hernia: No hernia is present. Musculoskeletal: Comments: +2 bilateral lower extremity pitting edema Skin: General: Skin is warm and dry. Capillary Refill: Capillary refill takes 2 to 3 seconds. Coloration: Skin is jaundiced. Neurological: Mental Status: He is alert and oriented to person, place, and time. Mental status is at baseline. GCS: GCS eye subscore is 4. GCS verbal subscore is 5. GCS motor subscore is 6. Sensory: Sensation is intact. Psychiatric: Behavior: Behavior is cooperative. Laboratory Values: reviewed. Cultures: reviewed. Radiographic Studies: reviewed. XR CHEST 2 VIEWS Result Date: 04/01/2024 IMPRESSION Right upper lobe pneumonia. Assessment & Plan CRITICAL CARE SYSTEM REVIEW & ASSESSMENT/PLAN: Active Problems: 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) (POA: Yes) BPH (benign prostatic hyperplasia) (POA: Yes) HTN, goal below 140/90 (POA: Yes) Overview: Per HTN Protocol #27. Coronary artery disease of [place] artery of [place] heart with stable angina pectoris (HCC) (POA: Yes) Gastroesophageal reflux disease without esophagitis (POA: Yes) 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) (POA: Yes) Acute cholecystitis (POA: Unknown) POA = Present On Admission NEUROLOGICAL: No active concerns PULMONARY / RESPIRATORY: Acute hypoxic respiratory failure Requiring 2L nasal cannula Maintain sats >92% Incentive spirometer and flutter valve Respiratory driven protocol CARDIOVASCULAR: Septic shock 2/2 acute cholecystitis vs ascending cholangitis and possible component of hypovolemiafrom recent increase in dosage of diuretic outpatient History of CAD s/p multiple stents and CABG History of hypertension Hyperlipidemia Bedside POCUS with collapsible IVC suggesting volume responsive state Will dose albumin PRN Hold NURSING PROGRAM MANAGER antihypertensives of imdur, atenolol & furosemide GASTROINTESTINAL / HEPATOBILIARY: Metastatic pancreatic cancer to the liver s/p ERCP & stent placement 12/2023 GERD GI & general surgery consult, ?patency of stent Bowel Regimen: Reassess in the next 24-48 hours Stress Ulcer Prophylaxis: not indicated at this time.. Diet / Nutrition: NPO RENAL / METABOLIC / FLUIDS: Hyponatremia Lactic acidosis BPH Lactate elevated to 2.4, trend q6 hours to resolution Hale catheter placed at [facility], exchanged on arrival Holding NURSING PROGRAM MANAGER meds while NPO INFECTIOUS DISEASES: Possible cholecystitis vs ascending cholangitis Antibiotic Regimen: Zosyn Follow up MRSA nares & blood cultures Trend temp curve & WBC ENDOCRINE: Type II diabetes mellitus Blood Glucose Monitoring (BGM) Goal: 140-180. MDSSI, accuhecks q6 hours and hypoglycemia protocol Holding NURSING PROGRAM MANAGER oral antihyperglycemic agents HEMATOLOGIC/ONCOLOGIC: B12 deficiency VTE/DVT Prophylaxis: chemoprophylaxis with pneumatic compression devices MUSCULOSKELETAL/ P.T / O.T. / MOBILITY: PT/OT LINES / DRAINS / TUBES: LINES ALL Duration Peripheral Line Right Hand 20 Gauge -- days Peripheral Line Right Wrist 20 Gauge -- days Implanted IV Device Right Chest 59 days List of services consulted/following: ADULT PHYSICAL THERAPY CONSULT IP ADULT OCCUPATIONAL THERAPY CONSULT IP CARE MANAGEMENT CONSULT IP GLOBAL ISSUES: Code Status: No Code Central Line Necessity Reviewed: Had right subclavian mediport Arterial Line Necessity Reviewed: N/A Hale: reviewed and needed Disposition: keep in ICU Patient's decisional capacity: has capacity to make decisions Communication with Patient/Family: To be discussed when they arrive at bedside. Patient confirmed DNR/DNI status. Stated he would like his brother Jaden to be POA and they are in the process of solidifying that. Patient was discussed with attending physician, DO Marixa Ferguson DO Critical Care Fellow Cosigned by Valdez Starr DO at 04/02/2024 3:17 AM EST Associated attestation - Valdez Starr DO - 04/02/2024 3:17 AM EST I saw and evaluated the patient today. I have reviewed the resident/fellow physician note and agree. I have provided critical care diagnostic services for circulatory failure, overwhelming infection and therapeutic services with volume resuscitation, frequent vasoactive agent adjustments for this patient on the date referenced above. Time devoted to patient care services described in this note equal: 36 minutes total critical care time exclusive of time spent performing procedures or time spent by another provider or resident. 78 yo M with metastatic pancreatic cancer now admitted with septic shock. Source of his sepsis is likely cholecystitis vs ascending cholangitis (bilary stent occlusion?). On exam his abdominal exam is benign, denies RUQ to palpation. He will receive additional resuscitation with albumin. Currently on low dose pressors and try to wean after additional fluids. Zosyn for abx. Consult general surgery, he is unlikely to be a surgical candidate but get their opinion if cholecystotomy drain is needed.GI consult due to concern for obstructed CBD stent and if he needs ERCP to place a new stent given increasing bilirubin. documented in this encounter Procedure Notes * Jose L Ortega MD - 04/12/2024 12:39 AM ESTAssociated Order(s): EKG REASON FOR STUDY: First degree atrioventricular block CONCLUSIONS: Normal sinus rhythm Nonspecific ST abnormality When compared with ECG of 12-Apr-2024 00:38, No significant change was found Ventricular Rate: 70 Atrial Rate: 70 IA Interval: 184 QRS Duration: 94 QT/QTc: 472/509 ms P-R-T [place]: 52 : 12 : 19 degrees * Rafael Leung MD - 04/09/2024 5:19 PM ESTAssociated Order(s): EKG REASON FOR STUDY: SOB CONCLUSIONS: Sinus rhythm with Premature atrial complexes Inferior infarct , age undetermined or old When compared with ECG of 07-Apr-2024 05:45, Vent. 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 Other: Abx Patient identity confirmed: Verbally with patient and arm band Verbal confirmation: MRN, name and date of Verbal consent obtained: Yes Written consent obtained: Yes Consent given by: Patient Understanding of procedure being performed: Yes Understanding of procedure matches verbalized consent: Yes Procedure consent matches procedure scheduled: Yes Allergies reviewed: Yes Site marked: yes Verify correct position: Yes Radiology Studies available/reviewed: yes Relevant Lab Results available/reviewed: yes Required items available: yes Other healthcare professional(s) verbalize(s) agreement with time out: Yes Name(s): Juliano Samano RN Time out: Immediately prior to the procedure a time out was completed Anticoagulation/Anti-platelet therapy: No Procedure Detail: Sterility Preparation: mask worn, sterile gloves worn, cap worn, sterile sheet used, sterile gown worn and full body drape Provider Hand Hygiene: alcohol-based hand rub Medical Reason for Not Performing Maximal Sterile Barrier Technique: No Placement conditions: Elective Patient Position: Supine Prep: Chlorhexidine Local Anesthetic Used: Yes Catheter Type: Power PICC PICC Laterality: Left and Upper PICC Site: Arm PICC Vessel: Basilic Catheter size: 3fr Catheter Total Length (cm): 48 Catheter Internal Length (cm): 48 Catheter External Length (cm): 0 Lot Number: [id number] Number of Lumens: Single lumen Oximetric Catheter?: No Number of Needle Passes: 1 Placement: target vein identified, needle advanced into vein and blood aspirated and guidewire advanced into vein Radiologic Support with Sterile Technique: ultrasound guidance used Sterile gel and probe cover used for ultrasound?: Yes Intravenous Verification: verified by ultrasound and venous blood return Outcomes/Complications: patient tolerated procedure well with no complications PA Catheter Placed?: No Post Insertion: Post Insertion Details: all ports aspirated, all ports flushed easily, guidewire was removed, examined and appears intact and dressing was applied Site cleansed: Chlorhexidine Line secured with: Adhesive Securement Device and Tissue Adhesive Dressing applied: Gel Chlorhexidine Gluconate and Occlusive Tip Confirmation: Tip Confirmation System Tip Location: SVC and Line Ok to use Attestation: Attestation: I personally performed the procedure myself Additional Comments: Prior to insertion both guide wire and PICC Line wire inspected and found to be intact. Upon completion of procedure again both wires inspected and found to be intact (Guide wiremeasuring 50.25cm in total and completely intact). All witnessed by myself and my PICC Assist. Spencer Stewart DO - 04/07/2024 5:45 AM ESTAssociated Order(s): EKG REASON FOR STUDY: CONCLUSIONS: Warning: interpretation of this ECG, although attempted, may be adversely affected by data quality Sinus tachycardia with Premature supraventricular complexes ST & T wave abnormality, consider anterolateral ischemia When compared with ECG of 05-Apr-2024 00:09, Premature supraventricular complexes are now Present T wave inversion less evident in Lateral leads Ventricular Rate: 146 Atrial Rate: 146 IA Interval: 144 QRS Duration: 86 QT/QTc: 362/564 ms P-R-T [place]: 90 : 61 : 17 degrees Juliano Remy MD - 04/05/2024 12:09 AM ESTAssociated Order(s): EKG REASON FOR STUDY: Tachycardia CONCLUSIONS: Sinus tachycardia Cannot rule out Inferior infarct (cited on or before 17-Jul-2022) Marked ST abnormality, possible anterolateral subendocardial injury Abnormal ECG When compared with ECG of 03-Apr-2024 11:08, Vent. rate has increased by 62 bpm Questionable change in The axis ST now depressed in Anterior-lateral leads Ventricular Rate: 151 Atrial Rate: 151 IA Interval: 146 QRS Duration: 88 QT/QTc: 336/532 ms P-R-T [place]: 58 : 67 : 76 degrees * Uriel Mosqueda DO - 04/02/2024 3:18 PM ESTAssociated Order(s): ERCP [facility] Patient Name: Mitchel Harmon Procedure Date: 04/02/2024 3:18 PM Date of : 1945 Admit Type: Inpatient Note Status: Finalized Date of : 1945 Admit Type: Inpatient Age: 78 Room: Endo - Room 8 Gender: Male Note Status: Finalized Procedure: ERCP Indications: Stent change Providers: Mars Anna DO (Doctor), Magdiel Mendoza MD (Fellow), Nella Zurita, Equine Manager Referring MD: Uriel Mosqueda MD, Renetta Oh DO Medicines: Monitored Anesthesia Care Complications: No immediate complications. Procedure: Pre-Anesthesia Assessment: - Prior to the procedure, a History and Physical was performed, and patient medications and allergies were reviewed. The patient's tolerance of previous anesthesia was also reviewed. The risks and benefits of the procedure and the sedation options and risks were discussed with the patient. All questions were answered, and informed consent was obtained. Prior Anticoagulants: The patient has taken no anticoagulant or antiplatelet agents. ASA Grade Assessment: III - A patient with severe systemic disease. After reviewing the risks and benefits, the patient was deemed in satisfactory condition to undergo the procedure. After obtaining informed consent, the scope was passed under direct vision. All instruments were visually inspected immediately before and after removal from the patient to ensure they are fully intact. Throughout the procedure, the patient's blood pressure, pulse, and oxygen saturations were monitored continuously. The [id number] Endoscope ([id number]) was introduced through the mouth, and advanced to the duodenum and used to inject contrast into the bile duct. Findings & Specimens: A biliary stent was visible on the milieu manager film. The esophagus was successfully intubated under direct vision. The scope was advanced from the mouth to the duodenum. The pharynx, larynx and associated structures, as well as the upper GI tract, were normal. A biliary sphincterotomy had been performed. The sphincterotomy appeared open. One plastic stent originating in the biliary tree was emerging from the major papilla. The stent was visibly occluded. One stent was removed from the biliary tree using a snare. A 0.025 inch x 270 cm angled Visiglide wire was passed into the biliary tree. The 12 mm balloon was passed over the guidewire and the bile duct was then deeply cannulated. Contrast was injected. I personally interpreted the bile duct images. There was brisk flow of contrast through the ducts. Image quality was excellent. Contrast extended to the entire biliary tree. Opacification of the entire biliary tree except for the gallbladder was successful. The lower third of the main bile duct contained a single localized stenosis 10 mm in length. The biliary tree was swept with a 9 mm balloon starting at the bifurcation. Pus was swept from the duct. Sludge was swept from the duct. One 10 mm by 6 cm covered metal stent with a single external flap and a single internal flap was placed 5 cm into the common bile duct. Bile and pus flowed through the stent. The stent was in good position. Impression: - Prior biliary sphincterotomy appeared open. - One visibly occluded stent from the biliary tree was seen in the major papilla. - A single localized biliary stricture was found in the lower third of the main bile duct. - One stent was removed from the biliary tree. - The biliary tree was swept and pus and sludge were found. - One covered metal stent was placed into the common bile duct. Recommendation: - Return patient to [facility] for ongoing care. - Repeat ERCP for stent exchange is based on goals of care discussion. The stent can remain for 6 months before exchange is needed - Rest of recommendations per inpatient consult team Mars Anna DO 04/02/2024 4:17:07 PM This report has been signed electronically. Magdiel Mendoza MD 04/02/2024 3:59:22 PM * Elgin Mcclain DO - 04/02/2024 4:41 AM ESTAssociated Order(s): EKG REASON FOR STUDY: Shortness of breath;Shortness of breath;SOB CONCLUSIONS: Normal sinus rhythm Possible Inferior infarct (cited on or before 17-Jul-2022) Nonspecific ST abnormality When compared with ECG of 30-Jan-2024 12:11, QT has lengthened Ventricular Rate: 82 Atrial Rate: 82 IA Interval: 190 QRS Duration: 102 QT/QTc: 422/493 ms P-R-T [place]: 66 : 45 : -20 degrees documented in this encounter Consult Notes * Kenia Fischer LSW - 04/06/2024 3:20 PM ESTAssociated Order(s): CARE MANAGEMENT CONSULT IP Please refer to ancillary tab per CM involvement. Thank you for the consult request. * Klever Schroeder RN - 04/06/2024 10:57 AM ESTAssociated Order(s): WOUND/OSTOMY CONSULT IP Wound ostomy consulted to assess suspected pressure injury to buttocks Seen on BP8 awake, alert, on [facility]adel low air loss bed. Rolls on side with minimal assistance. Skin across bilateral buttocks, pink, intact, blanchable, denies pain. Foam dressing reapplied. Complained of discomfort behind R ear related to O2 tubing. Skin intact w/o erythema Recommend Continue with allevyn foam dressing to buttocks change every 2-3 days and prn Turn and reposition Q2hrs Waffle cushion on chair when OOB Limit sitting to 2hrs at a time Keep heels elevated off the bed Pad O2 tubing with small allevyn foam dressings to protect ears * Naveed Peace MD - 04/03/2024 4:20 PM ESTAssociated Order(s): ONCOLOGY CONSULT IP CONSULT - Oncology [facility] [address] Name: Mitchel Harmon Location: [facility] B843/A Date: 04/03/2024 Time: 2:47 PM REQUESTING SERVICE: medicine REASON FOR CONSULT: met pancreatic cancer, pt on chemo REFERRING PHYSICIAN: Milad DIAGNOSIS: met pancreatic ca HISTORY OF PRESENT ILLNESS: Mr. Harmon is a 78 y/o w a pmhx CAD status post multiple stents, CABG, T2DM, hypertension dyslipidemia, and metastatic pancreatic cancer to the liver diagnosed s/p EGD/ERCP on 01/16/24 with stent placement followed by [facility]. He was placed on gem/abraxane and had D#1&8 was last dose on 02/16 with complications after each chemo treatment requiring hospitalization. Currently on chemotherapy break He initially presented to outside hospital with complaints of generalized weakness, fatigue and chills and found to have septic shock with concerns for cholangitis vs cholecystitis prompting [facility]erto [facility] for further management. GI was consulted and the patient underwent ERCPon 04/02/23, prior biliary sphincterotomy appeared to be open, 1 stent was removed from the biliary tree and 1 covered metal stent was placed in the common bile duct. Patient was suspected to have cholangitis with obstructive plastic biliary stent. We are consulted as the patient desires to discuss his cancer. He is seen w his family and asks about the status of his cancer. He reports that he feels much better and denies any nausea, vomiting or abdominal pain.He is eating well. No diarrhea. He reports thathe feels well and is hoping to go home soon although he knows he has to stay because of his fever. He denies any shortness of breath and is not on oxygen at home. He reports that he would like to continue with his cancer directed therapy. PAST MEDICAL HISTORY: 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) 02/17/2024 Moderate aortic stenosis 11/28/2021 Stable angina (HCC) 08/24/2009 PAST SURGICAL HISTORY: Past Surgical History: Procedure Laterality Date CABG, ARTERIAL, TWO 03/25/1999 CATHETERIZE LEFT HEART THRU SKIN 09/23/2009 LEFT HEART CATH, PERCUTANEOUS performed by ESTELA SANDOVAL at [facility] [place] COLONOSCOPY, DIAGNOSTIC (RECTUM) 10/12/2019 normal / COLONOSCOPY FLEXIBLE PROXIMAL DIAGNOSTIC performed by Mitchel Armenta MD at ENDOSCOPY [facility] CORONARY ARTERY DILATION, BALLOON 08/29/2009 PTCA, SINGLE VESSEL performed by ESTELA SANDOVAL at [facility] EGD, FLEXIBLE, DIAGNOSTIC 10/12/2019 normal / ESOPHAGOGASTRODUODENOSCOPY (EGD), FLEXIBLE, TRANSORAL, DIAGNOSTIC performed by Mitchel Armenta MD at ENDOSCOPY [facility] EGD, W/ENDOSCOPIC US N/A 01/16/2024 mass pancreatic head/multiple metastatic lesion liver/biopsies show adenocarcinoma pancreas mets marco/ESOPHAGOGASTRODUODENOSCOPY (EGD), FLEXIBLE, TRANSORAL, ENDOSCOPIC ULTRASOUND performed by Jose E Bai MD at ENDOSCOPY [facility] ERCP, DIAGNOSTIC, SPECIMEN COLLECTION N/A 01/16/2024 single severe malignant appearing biliary stricture/one plastic biliary stent placed CBD/repeat 3 months/ENDOSCOPIC RETROGRADE CHOLANGIOPANCREATOGRAPHY (ERCP) DIAGNOSTIC performed by Jose E Bai MD at ENDOSCOPY [facility] REMOVE CATARACT, INSERT LENS PROSTH Bilateral FAMILY HISTORY: Family History Problem Relation Name Age of Onset Heart Disorder Mother Francisco Coronel Peno Hypertension Mother Idedanicaa M Peno Heart Disorder Father Jaden E Peno Hyperlipidemia Sister Lilian Friend Anachino Heart Disorder Brother Jaden A Peno Diabetes Brother Jaden A Peno Asthma Daughter Raziamargo Shirin Yeager Diabetes Daughter Raziamargo Glenis Yeager SOCIAL HISTORY: Social History Tobacco Use Smoking status: Former Current packs/day: 0.00 Average packs/day: 1 pack/day for 25.0 years (25.0 ttl pk-yrs) Types: Cigarettes Start date: 1960 Quit date: 1985 Years since quittin.0 Passive exposure: Past Smokeless tobacco: Former Tobacco comments: quit in 1984. Vaping Use Vaping status: Never Used Substance Use Topics Alcohol use: Not Currently Comment: occasionally Drug use: No ALLERGIES: Iodinated contrast media, Levofloxacin, and Lisinopril ROS: see hpi. all others negative PHYSICAL EXAM: Most Recent Vital Signs: BP: 117 mmHg/70 mmHg (04/03/24954) Pulse: 110 (04/03/24954) Resp: 24 (04/03/24954) Temp: 37.72 C (04/03/24 1147) Temp Summary: Temp Min: 35.9 C (96.6 F) Max: 38.2 C (100.7 F) SpO2: 100 % (04/03/24954) O2 flow rate: 2 L/MIN (04/03/24954) Supplemental O2 Delivery: Nasal Cannula (04/03/24954) Constitutional: NAD chronically ill, thinned, jaundice Head: NC/AT, no masses Ears/Nose/Eyes: No nasal drainage, EOMI, Pupils equal and round Mouth/Throat: No lip/oral lesions, dentition good, MMM Neck: supple, trachea midline, no lymphadenopathy CV: Regular rhythm and rate, no murmur appreciated, +2 radial and posterior tib pulses, no peripheral pitting edema Respiratory: Normal resp rate and effort on RA, no accessory muscle use, no crackles, wheezing, rhonchi heard Abdomen: Soft, nontender, nondistended, normoactive bowel sounds Musculoskeletal: Normal ROM in extremities, normal strength, No joint pain, no signs of trauma Skin: Dry, warm, intact, no rashes or masses noticed Neuro: AAOx3, no focal neurological deficits, follow commands Psych: Appropriate mood/affect, answers question appropriately PE: ECOG PS 3 LABS: CHEMISTRY: BUN, Creatinine, GFR Estimated, Sodium, Potassium, Chloride, Carbon Dioxide, Glucose, Calcium (see below for most recent value): Lab Results Component Value Date/Time BUN 25 (H) 04/03/2024 07:34 AM BUN 27 (H) 03/11/2020 08:10 AM CREAT 0.9 04/03/2024 07:34 AM CREAT 1.2 03/11/2020 08:10 AM GFRESTIMATED >60.0 03/11/2020 08:10 AM NA 131 (L) 04/03/2024 07:34 AM NA 140 03/11/2020 08:10 AM POTASSIUM 3.6 04/03/2024 07:34 AM POTASSIUM 4.6 03/11/2020 08:10 AM CL 98 04/03/2024 07:34 AM CL 101 03/11/2020 08:10 AM CO2 21 (L) 04/03/2024 07:34 AM CO2 29 03/11/2020 08:10 AM CA 8.6 04/03/2024 07:34 AM CA 9.4 03/11/2020 08:10 AM BLOOD COUNT: WBC, Hgb, Platelets (see below for most recent value): Lab Results Component Value Date/Time WBC 23.71 (H) 04/03/2024 07:34 AM WBC 6.13 03/11/2020 08:10 AM HGB 10.1 (L) 04/03/2024 07:34 AM HGB 12.5 (L) 03/11/2020 08:10 AM PLT 357 04/03/2024 07:34 AM PLT 248 03/11/2020 08:10 AM RADIOLOGY: CT A/P w/o 12/30 IMPRESSION: 1. Multiple hypodense hepatic lesions, suspicious for metastatic disease. 2. Fullness of the pancreatic head, which given the hepatic findings described above is indeterminate for normal lobulated pancreatic parenchyma versus a pancreatic head mass. MRI abdomen with and without contrast is recommended for further evaluation. 3. A couple of nonobstructing left renal calculi measure up to 3 mm. No hydronephrosis. 4. A few small hyperdense foci within the urinary bladder may reflect urinary bladder calculi or wall calcifications. 5. A few sub 6 mm pulmonary nodules, new compared to chest CT dated 08/06/2014, indeterminate. PATHOLOGY: A. Pancreas, Head, EUS guided fine needle aspiration: Adequacy: Satisfactory for evaluation. Category: Malignant (WHO International System). Interpretation: Adenocarcinoma. Comment: The histological sections of the cellblock preparation show similar findings with desmoplastic stromal tissue fragments showing an infiltrate of highly atypical cells with hyperchromatic nuclei with irregular nuclear contours, nucleoli, and vacuolated cytoplasm. Immunohistochemical stains were performed with adequate controls on block A1 and show that the highly atypical epithelial cellsshow a partial loss of SMAD4. The morphologic and immunohistochemical assays are compatible with a [id number] differentiated adenocarcinoma, and compatible with a pancreatic origin Recommend clinical and endoscopic correlation. ASSESSMENT: Mr Harmon is a 78 yo male with: CAD s/p CABG DM Stage IV pancreatic cancer with liver mets Septic shock from cholangitis with obstructive plastic biliary stent, s/p covered metal stent 04/02 Bacteriemia He has tolerated C1 of chemotherapy ([place]/Abraxane) poorly with hospitalizations after D1 and D8 treatment. Chemotherapy has on hold due to performance status, last given 02/16 We shared our concerns that his cancer has likely progressed while off of chemotherapy. We also reviewed that we would not be offering him chemotherapy while in the hospital due to current infection as well as performance status. The risks of chemotherapy likely outweighs the benefit. Patient and family expressed understanding. Patient would like to review the results of restaging imaging but would likely want to continue cancer directed therapy if offered outpatient RECOMMENDATIONS: Follow up restaging CT CAP Infection management per ID, GI and Medicine teams Cosigned by Naveed Wright MD at 04/04/2024 8:33 AM EST Associated attestation - Naveed Wright MD - 04/04/2024 8:33 AM EST I saw and evaluated the patient 04/03/24. I have reviewed the resident/fellow physician note and agree. 78yM with metastatic pancreatic cancer on gem/abraxane, with multiple infectious complications after part of 1 cycle of therapy (last given 02/16). Last MRI abdomen personally reviewed. Oncology history and hospital course reviewed in detail with the family. He has had multiple complications to treatment - I share the patient's concerns that he may not continue to tolerate dual-agent chemotherapy, but this determination must be made on an outpatient basis after he has recovered from his infection and hospitalization. He has not yet had sufficient treatment to determine whether this last line of therapy was effective. No inpatient chemotherapy indicated at this time. Will follow-up with outpatient oncology to continue treatment discussions. Naveed Wright M.D. * Esperanza Lim, Medical Student - 04/03/2024 10:16 AM ESTAssociated Order(s): INFECTIOUS DISEASE CONSULT IP Unless the attending has added an attestation supporting use of this note to document a billable service, the signature of the Licensed Professional on this note only acknowledges the presence of thestudent's note within the patient record and the Licensed Professional's note should be referred tofor clinical information and recommendations. CONSULT - Infectious Disease [address] [address] Name: Mitchel Harmon Location: [facility] B843/A Date: 04/03/2024 Time: 10:17 AM REQUESTING SERVICE: Med Q REASON FOR CONSULT: For antibiotics for pt admitted with septic shock due to ascending Cholangitis.Blood cx in [facility] grew gram positive cocci in chains and gram negative bacilli, blood cx done here negative so far. HPI: Patient is a 78 year old male with PMHx of metastatic pancreatic cancer (to the liver), CAD s/p CABG and multiple stents, T2DM (non-insulin dependent), HTN, and HLD, who was admitted to the hospital on 04/02/2024 with septic shock. He was having sick symptoms (fevers, chills, weakness) for a fewdays, so he presented to [facility] ER after his PCP diagnosed him with pneumonia. At [facility], he was in shock and required 1.5L fluids and was started on Levophed and cefepime. Preliminary blood cultures there revealed gram positive cocci in chains and gram negative bacilli. CT chest/a/p at that time showed findings suspicious for cholecystitis vs. Cholangitis (increased gallbladder wall thickening with distension and pericholecystic fluid; biliary stent in place w/ no change in biliary duct dilation). He was transferred to [facility] due to requiring pressors and possible IR intervention and then was downgraded from ICU the same day. Levophed stopped 04/02/24 at 5AM. His chemo has been on hold for 6 weeks (last dose 02/17/24); he only received 2 rounds of chemo andwas planning for a biliary duct stent exchange (04/21/24). After GI evaluated him yesterday, they recommended ERCP, during which they replaced his stent. ERCP findings noted below. He is currently on IV Zosyn 4.5g Q8H. Today, he is febrile (100.8) but is feeling "about the same". The pt and his family would like a care team discussion to go over management, including regarding usp prophylactic antibiotics. Hedenies chills, CP, SOB, abdominal pain, dysuria, hematuria, hematochezia, rashes. ALLERGIES: Iodinated contrast media, Levofloxacin, and Lisinopril PAST MEDICAL HISTORY: 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) 02/17/2024 Moderate aortic stenosis 11/28/2021 Stable angina (HCC) 08/24/2009 PAST SURGICAL HISTORY: Past Surgical History: Procedure Laterality Date CABG, ARTERIAL, TWO 03/25/1999 CATHETERIZE LEFT HEART THRU SKIN 09/23/2009 LEFT HEART CATH, PERCUTANEOUS performed by ESTELA SANDOVAL at [facility] [place] COLONOSCOPY, DIAGNOSTIC (RECTUM) 10/12/2019 normal / COLONOSCOPY FLEXIBLE PROXIMAL DIAGNOSTIC performed by Mitchel Armenta MD at ENDOSCOPY [facility] CORONARY ARTERY DILATION, BALLOON 08/29/2009 PTCA, SINGLE VESSEL performed by ESTELA SANDOVAL at [facility] [place] EGD, FLEXIBLE, DIAGNOSTIC 10/12/2019 normal / ESOPHAGOGASTRODUODENOSCOPY (EGD), FLEXIBLE, TRANSORAL, DIAGNOSTIC performed by Mitchel Armenta MD at ENDOSCOPY [facility] EGD, W/ENDOSCOPIC US N/A 01/16/2024 mass pancreatic head/multiple metastatic lesion liver/biopsies show adenocarcinoma pancreas mets marco/ESOPHAGOGASTRODUODENOSCOPY (EGD), FLEXIBLE, TRANSORAL, ENDOSCOPIC ULTRASOUND performed by Jose E Bai MD at ENDOSCOPY [facility] ERCP, DIAGNOSTIC, SPECIMEN COLLECTION N/A 01/16/2024 single severe malignant appearing biliary stricture/one plastic biliary stent placed CBD/repeat 3 months/ENDOSCOPIC RETROGRADE CHOLANGIOPANCREATOGRAPHY (ERCP) DIAGNOSTIC performed by Jose E Bai MD at ENDOSCOPY [facility] REMOVE CATARACT, INSERT LENS PROSTH Bilateral SOCIAL HISTORY: Social History Tobacco Use Smoking status: Former Current packs/day: 0.00 Average packs/day: 1 pack/day for 25.0 years (25.0 ttl pk-yrs) Types: Cigarettes Start date: 1960 Quit date: 1985 Years since quittin.0 Passive exposure: Past Smokeless tobacco: Former Tobacco comments: quit in 1984. Vaping Use Vaping status: Never Used Substance Use Topics Alcohol use: Not Currently Comment: occasionally Drug use: No FAMILY HISTORY and FAMILY STATUS: Family History Problem Relation Name Age of Onset Heart Disorder Mother Francisco Harmon Hypertension Mother Francisco Harmon Heart Disorder Father Jaden Harmon Hyperlipidemia Sister Lilian Friend [place] Heart Disorder Brother Jaden Harmon Diabetes Brother Jaden Harmon Asthma Daughter Iker Yeager Diabetes Daughter Iker Yeager Family Status Relation Status Mo Fa Sis Alive Bro Alive Shara (Not Specified) Shara (Not Specified) ROS: as above PHYSICAL EXAMINATION: Most Recent Vital Signs: BP: 117 mmHg/70 mmHg (04/03/24954) Pulse: 110 (04/03/24954) Resp: 24 (04/03/24954) Temp: 38.17 C (04/03/24954) Temp Summary: Temp Min: 35.8 C (96.4 F) Max: 38.2 C (100.7 F) SpO2: 100 % (04/03/24954) O2 flow rate: 2 L/MIN (04/03/24954) Supplemental O2 Delivery: Nasal Cannula (04/03/24954) Vital Signs Last 24 Hours: Systolic BP: Most Recent Systolic BP Av mmHg Min: 92 mmHg Max: 117 mmHg Temperature: Most Recent Temperature Av.5 C Min: 35.78 C Max: 38.17 C Pulse: Pulse Av.7 Min: 69 Max: 110 Respirations: Resp Av.7 Min: 11 Max: 26 SpO2: SpO2 Av.1 % Min: 93 % Max: 100 % Constitutional: (+) ill appearing, (+) cachectic, jaundice HEENT: normal: normocephalic, atraumatic; no masses, tenderness, or adenopathy Eyes: sclera and conjunctiva normal Neck: supple, normal range of motion CV: regular rate and rhythm. Systolic murmur heard at the upper right sternal border Chest: normal respiratory effort, lungs clear to auscultation and percussion Abdomen: soft, normal bowel sounds, RLQ tenderness to palpation Extremities: no clubbing, cyanosis, or edema, otherwise grossly normal, warm, and dry Skin: jaundiced, warm, dry, intact, age spots on upper and lower extremities : Neuro: alert, oriented to person, place, and time, normal mental status exam, sensory normal Psych: normal mood and affect LABS: Laboratory Values: reviewed. -- Brief labs below include the 7 most recent results over the past week. Blood Gas: No results in the last 7 days - inpatent use only Chemistry Panel: Lab results within last 7 days (see chart for full results) Units 04/03/24 0734 04/02/248 04/02/2415704/01/24 0950 SODIUM mmol/L 131* 131* 130* 127* POTASSIUM mmol/L 3.6 4.3 4.5 4.6 CHLORIDE mmol/L 98 99 98 94* CO2 mmol/L 21* 20* 19* 22 EGFR mL/min 84 62 65 89 BUN mg/dL 25* 21* 20 16 CREATININE mg/dL 0.9 1.2 1.2 0.8 GLUCOSE mg/dL 157* 105 78 156* CALCIUM mg/dL 8.6 8.5 9.0 8.6 Magnesium mg/dL -- -- 1.9 -- Phosphorus mg/dL -- -- 3.6 -- ANION GAP mmol/L 12 12 13 11 Complete Blood Count: -Leukocytosis is now downtrending Lab results within last 7 days (see chart for full results) Units 04/03/24 0734 04/02/248 04/02/248 04/01/24 0950 WBC K/uL 23.71* 29.75* 38.04* 15.04* HGB g/dL 10.1* 7.8* 8.8* 8.7* HCT % 31.5* 24.5* 27.5* 27.4* PLT K/uL 357 274 354 382 MCV fL 89.2 89.7 88.7 91.0 Liver Function Panel: Lab results within last 7 days (see chart for full results) Units 04/03/24 0734 04/02/248 04/02/248 04/01/24 0950 Albumin g/dL 2.4* 2.6* 2.4* 2.6* Protein g/dL 5.5* 5.3* 5.5* 5.2* Bilirubin, Total mg/dL 1.3* 2.0* 2.3* 1.9* Bilirubin, Direct mg/dL 1.0* 1.6* 1.9* -- AST U/L 109* 138* 142* 63* ALT U/L 62* 50 60* 44 Alkaline Phosphatase U/L 641* 685* 821* 969* Infectious Studies: Lactate normalized Lab results within last 7 days (see chart for full results) Units 04/02/24 1824 04/02/24 1115 04/02/24 0458 04/02/24 0158 Lactate mmol/L 1.6 1.8 2.1* 2.4* Cultures: reviewed. Lab results within last 7 days (see chart for full results) Units 04/02/24 1059 Coronavirus SARS-CoV-2 by PCR Negative Recent Cultures (2 Weeks) 04/02/2024 1:58 AM BLOOD CULTURE GROWTH No growth to date No growth to date *[facility] blood cultures: GP cocci in chains (Streptococcus constellatus), GN bacilli (no speciation yet). *MRSA negative Radiographic Studies: reviewed. XR CHEST 2 VIEWS Result Date: 04/01/2024 IMPRESSION Right upper lobe pneumonia. IMAGING: CT chest/abdomen/pelvis without contrast 04/01/24 (done at [facility]-report in media): -1. increased gallbladder wall thickening with distension and pericholecystic fluid. Sludge versus stones within the gallbladder. Findings are suspicious for acute cholecystitis 2. biliary stent in place w/ no change in moderate biliary duct dilation 3. No significant change in hepatic mets. Primary pancreatic lesion not well- visualized on unenhanced CT 4. Small amount of abdominal and pelvic ascites 5. No evidence of bowel obstruction. Moderate amount of stool within the colon and rectum. ERCP 04/02/24: -One visible Jannie octreotide stent from biliary tree was seen in the major papilla. -a single localized biliary stricture was found in the lower 3rd of the main bile duct. -One stent was removed from the biliary tree. -the biliary tree was swept and pus and sludge were found. -One covered metal stent was placed into the common bile duct. IMPRESSION: Streptococcus Constellatus and Gram Negative (no speciation yet) Bacteremia- culture results from [facility] Cholangitis Septic Shock -resolved History of pancreatic cancer with metastasis to the liver (holding chemo, last dose 02/17/24) RECOMMENDATIONS: Continue Zosyn 4.5g Q8H, pending final culture results from [place] [facility] blood cultures. Bacteremia source was likely 2/2 cholangitis caused by the biliary stent stricture/biliary duct obstruction. The affected stent was replaced by GI on 04/02/24 Follow [place] [facility] blood cultures and blood cultures here. [facility] cultures are NGTD Rest of management per primary team Recommend continued GOC discussion Esperanza Lim Fourth-Year Medical Student [employer] Cosigned by Scott Street DO at 04/03/2024 7:26 PM EST Associated attestation - Scott Street DO - 04/03/2024 7:26 PM EST ATTESTATION: I attest that I have reviewed the student note and that the components of the history, the physicalexam, and the assessment and plan documented were performed in my presence with the student where Iverified the documentation and performed (or re-performed) the exam and medical decision making. Myadditional thoughts/findings or any changes to the plan are listed below. CLINICAL TEAM: Infectious Diseases Team 2 HISTORY OF PRESENT ILLNESS: The patient was admitted 04/01/2024 to [facility] for dyspnea (in the context of metastatic pancreatic CA).Workup revealed elevated LFTs. The patient was felt to have acute cholecystitis. His condition worsened and he was transferred to [facility]. The patient was seen by GI and underwent ERCP ("...occluded previous stent, biliary tree was swept noticed to have pus and sludge, s/p covered metal stent placementinto CBD..."). Blood cultures from [facility] are positive. CURRENT ABX DOSING INFO: Body mass index is 24.61 kg/m. Serum creatinine: 0.9 mg/dL 04/03/24 0734 Estimated creatinine clearance: 60.1 mL/min IMPRESSION: Cholangitis Polymicrobial bacteremia RECOMMENDATIONS: Continue IV Zosyn 4.5g Q8h (adjust for CrCl PRN) Follow up OSH cultures & adjust ABX PRN COMMENT(S): All orders per primary team unless specifically noted otherwise. I will be off service until 04/06. Contact the on-call ID provider(s) with any acute issues. REVENUE MANAGEMENT: I spent a total of 90 minutes coordinating, documenting, and providing care for this patient excluding time spent in the performance of separately billed services. This patient's service included complex antimicrobial therapy counseling and/or treatment. * Noemí Shah, PT - 04/02/2024 11:57 AM ESTAssociated Order(s): ADULT PHYSICAL THERAPY CONSULT IP GENERAL EVALUATION - Physical Therapy [facility]-[address] [address] Name: Mitchel Harmon Location: [facility] HFAM/Endo Date: 04/02/2024 Time: 3:20 PM Mitchel Harmon is a/an 78 year old male. Patient Status: Inpatient Insurance: Payor: [facility] [employer] Plan: [facility] [employer] PREFERRED ADVANTAGE RX DC-ID Product Type: *No Product type* Patient Seen: at bedside, nursing cleared patient for therapy Patient Identified By: Name, ID Band and Date Diagnosis: sepsis (04/02/241126) Status of treatment: Evaluation completed (04/02/241126) Orders: PT evaluation and treatment (04/02/241126) Weight Bearing Status: Weight bearing as tolerated (04/02/241126) Precautions: Alarms;Safety (04/02/241126) Total Treatment Time--free text: 20 (04/02/24 112) Past Medical History: 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) 02/17/2024 Moderate aortic stenosis 11/28/2021 Stable angina (HCC) 08/24/2009 Past Surgical History: Past Surgical History: Procedure Laterality Date CABG, ARTERIAL, TWO 03/25/1999 CATHETERIZE LEFT HEART THRU SKIN 09/23/2009 LEFT HEART CATH, PERCUTANEOUS performed by ESTELA SANDOVAL at [facility] COLONOSCOPY, DIAGNOSTIC (RECTUM) 10/12/2019 normal / COLONOSCOPY FLEXIBLE PROXIMAL DIAGNOSTIC performed by Mitchel Armenta MD at ENDOSCOPY [facility] CORONARY ARTERY DILATION, BALLOON 08/29/2009 PTCA, SINGLE VESSEL performed by ESTELA SANDOVAL at [facility] EGD, FLEXIBLE, DIAGNOSTIC 10/12/2019 normal / ESOPHAGOGASTRODUODENOSCOPY (EGD), FLEXIBLE, TRANSORAL, DIAGNOSTIC performed by Mitchel Armenta MD at ENDOSCOPY [facility] EGD, W/ENDOSCOPIC US N/A 01/16/2024 mass pancreatic head/multiple metastatic lesion liver/biopsies show adenocarcinoma pancreas mets marco/ESOPHAGOGASTRODUODENOSCOPY (EGD), FLEXIBLE, TRANSORAL, ENDOSCOPIC ULTRASOUND performed by Jose E Bai MD at ENDOSCOPY [facility] ERCP, DIAGNOSTIC, SPECIMEN COLLECTION N/A 01/16/2024 single severe malignant appearing biliary stricture/one plastic biliary stent placed CBD/repeat 3 months/ENDOSCOPIC RETROGRADE CHOLANGIOPANCREATOGRAPHY (ERCP) DIAGNOSTIC performed by Jose E Bai MD at ENDOSCOPY [facility] REMOVE CATARACT, INSERT LENS PROSTH Bilateral Subjective: Pt in bed and willing to get up to the chair. Social History/Disposition Lives with: (significant other) (04/02/241126) Assistance available: Yes (04/02/241126) Dwelling type: Single story home (04/02/241126) Entry steps: 1 (or 2) (04/02/241126) Inside steps: None (04/02/241126) Bedroom location: 1st floor (04/02/241126) Bath location: 1st floor full bath (04/02/241126) Prior Level of Function Reported by: Patient (04/02/241126) Ambulation: Ambulatory with device (04/02/241126) Ambulatory Device: Rolling walker (04/02/241126) Devices at home: Rolling walker (04/02/241126) Observations Consciousness: Alert (04/02/241126) Orientation: Oriented times 4 (04/02/241126) Psychosocial: Patient can communicate basic needs (04/02/241126) Pain: No complaints of pain Range of Motion Range of Motion: WFL (04/02/241126) Strength Assessment Strength Assessment: Deficits noted (04/02/241126) WNL, except: LLE;RLE (04/02/241126) LLE: 4/5 (04/02/241126) RLE: 4/5 (04/02/241126) P.T. Bed Mobility Supine-Sit: Contact Guard (04/02/241126) Transfers Sit-Stand: Supervision (04/02/241126) Stand-Sit: Supervision (04/02/241126) Ambulation: Distance ambulated (feet): 5 ft Assistive Device: Rolling walker Assist: Supervision Balance Sit (Static): Good (04/02/241126) Sit (Dynamic): Good (04/02/241126) Stand (Static): Fair (F+) (04/02/241126) Stand (Dynamic): Fair (F+) (04/02/241126) Patient and or Family Goal(s): to return home Patient Education Review of Precautions: Safety (04/02/241126) Safety Awareness: Patient verbalizes insight of current deficits (04/02/241126) Preferred learning method: Combination (04/02/241126) Barriers to learning: Medical Status (04/02/241126) Method of Education: Verbalized to patient (04/02/241126) Topic of Education: Safety with mobility, Goals/plan of care, and Use of assistive device Method of Education: Verbal discussion and explanation provided to patient: verbalized understanding and or agreement of this information Treatment Provided: Evaluation Moderate Complexity 20 minutes - 68219: Patient was cooperative and pleasant during treatment session. Moderate complexity evaluation performed and 1-2 personal factorsor comorbidities were identified that will impact plan of care, including cardiac history and pancreatic cancer. Patient presents with limitations in strength, bed mobility, transfers, gait, elevations, and balance, which will impact plan of care. These limitations will be addressed by the goals set for this patient. Alarm Status Patient positioned in: Chair (04/02/241126) With: Pressure pad alarm intact and functioning and call elise in reach (04/02/241126) Following session patient seated OOB in chair with chair alarm activated. Chair alarm (did not havecord to plug into call elise system and/or room did not have port to plug cord into call elise system). Patient's nurse Tricia was made aware. Treatment Status: Treatment at bedside (04/02/241126) Goals: Demonstrate Bed Mobility with: Supine to Sit: independent (pt does 100%) Sit to supine: independent (pt does 100%) Demonstrate Transfers with: Sit to stand: independent (pt does 100%) Stand to sit: independent (pt does 100%) Bed to chair: independent (pt does 100%) Demonstrate Ambulation: assistive device: rolling walker distance in feet: 250 ft level of assistance on level surface: modified independent (with device or slow) Demonstrate Stairclimbing: Number of steps: 1 and Level of Assistance: modified independent (with device or slow) Increase Strength of: BLE's to 5/5 Increase Balance: G dynamic standing Time Frame: 10 visits Assessment: Pt lives with his significant other in a 1 story home with 1 step to enter and was using a wheeled walker for all ambulation. He presented to the hospital on 04/02 with weakness and sepsis.Pt with know diagnosis of pancreatic cancer. Pt able to complete supine to sit with contact guard. He was then able to stand and ambulate with wheeled walker 5 ft bed to chair with supervision. Pt declined further distance. Feel pt would benefit from PT services in order to increase overall functional mobility as well as activity tolerance. Please consider home with post-acute care services whichmay include home health or outpatient therapy. The level of care will be determined in collaboration with the patient, family/caregiver and care team members. Deficits requiring P.T. treatment needs: Safety;Mobility;Balance;Weakness;Lower extremity strength (04/02/241126) Equipment Needs: Treatment Plan: Bed mobility training, Transfer training, Gait training, Elevation training, Strengthening exercises: BLE's, and Balance activities Anticipated Frequency (on eval): (1-5 times a week) (04/02/241126) AM PAC Score with Stairs: 19 A portion of this AM-PAC assessment not scored based on functional assessment due to no assessment of elevations; rather clinical decision making utilized based on current findings and/or prior levelof function. Please refer to future AM-PAC calculations of functional ability as they become available. * Suni Méndez OTR/Ronna - 04/02/2024 11:27 AM ESTAssociated Order(s): ADULT OCCUPATIONAL THERAPY CONSULT IP GENERAL EVALUATION - Occupational Therapy [address] [address] Name: Mitchel Harmon Location: ENDO [facility] HFAM/Endo Date: 04/02/2024 Time: 1126 Mitchel Harmon is a 78 year old male. Patient Status: Inpatient Insurance: Payor: [facility] [employer] Plan: [facility] [employer] PREFERRED ADVANTAGE RX DC-ID Product Type: *No Product type* Patient Seen: at bedside, nursing cleared patient for therapy Patient Identified By: Name, ID Band and Date Diagnosis: septic shock (04/02/241126) Status of treatment: Evaluation completed (04/02/241126) Orders: OT evaluation and treatment (04/02/241126) Weight Bearing Status: Weight bearing as tolerated (04/02/241126) Precautions: Alarms;Falls;Safety;Hale (04/02/241126) Total Treatment Time: 16 (04/02/241126) Past Medical History: 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) 02/17/2024 Moderate aortic stenosis 11/28/2021 Stable angina (HCC) 08/24/2009 Past Surgical History: Past Surgical History: Procedure Laterality Date CABG, ARTERIAL, TWO 03/25/1999 CATHETERIZE LEFT HEART THRU SKIN 09/23/2009 LEFT HEART CATH, PERCUTANEOUS performed by ESTELA SANDOVAL at [facility] COLONOSCOPY, DIAGNOSTIC (RECTUM) 10/12/2019 normal / COLONOSCOPY FLEXIBLE PROXIMAL DIAGNOSTIC performed by Mitchel Armenta MD at ENDOSCOPY [facility] CORONARY ARTERY DILATION, BALLOON 08/29/2009 PTCA, SINGLE VESSEL performed by ESTELA SANDOVAL at [facility] EGD, FLEXIBLE, DIAGNOSTIC 10/12/2019 normal / ESOPHAGOGASTRODUODENOSCOPY (EGD), FLEXIBLE, TRANSORAL, DIAGNOSTIC performed by Mitchel Armenta MD at ENDOSCOPY [facility] EGD, W/ENDOSCOPIC US N/A 01/16/2024 mass pancreatic head/multiple metastatic lesion liver/biopsies show adenocarcinoma pancreas mets marco/ESOPHAGOGASTRODUODENOSCOPY (EGD), FLEXIBLE, TRANSORAL, ENDOSCOPIC ULTRASOUND performed by Jose E Bai MD at ENDOSCOPY [facility] ERCP, DIAGNOSTIC, SPECIMEN COLLECTION N/A 01/16/2024 single severe malignant appearing biliary stricture/one plastic biliary stent placed CBD/repeat 3 months/ENDOSCOPIC RETROGRADE CHOLANGIOPANCREATOGRAPHY (ERCP) DIAGNOSTIC performed by Jose E Bai MD at ENDOSCOPY [facility] REMOVE CATARACT, INSERT LENS PROSTH Bilateral Social History/Disposition Lives with: (significant other) (04/02/241126) Assistance available: Yes (04/02/241126) Dwelling type: Single story home (04/02/241126) Entry steps: 1 (or 2) (04/02/241126) Inside steps: None (04/02/241126) Bedroom location: 1st floor (04/02/241126) Bath location: 1st floor full bath (04/02/241126) Prior Level of Function Reported by: Patient (04/02/241126) Ambulation: Ambulatory with device (04/02/241126) Ambulatory Device: Rolling walker (04/02/241126) Grooming: Independent (04/02/241126) Bathing: Independent (04/02/241126) Dressing: Assistance (04/02/241126) Feeding: Independent (04/02/241126) Toileting: Independent (04/02/241126) Meal Prep: Assistance (04/02/241126) Homemaking: Assistance (04/02/241126) Shopping: Assistance (04/02/241126) Medication Management: Independent (04/02/241126) Money Management: Independent (04/02/241126) Driving: Yes (04/02/241126) Durable Medical Equipment at home: Rolling walker (04/02/241126) Pain: No complaints of pain Observations Consciousness: Alert (04/02/241126) Orientation: Oriented times 4 (04/02/241126) Psychosocial: Patient can communicate basic needs;Patient can converse in a social setting (04/02/241126) Sitting posture: Rounded shoulders;Forward head (04/02/241126) Standing posture: Forward head;Rounded shoulders (04/02/241126) Safety awareness: The Patient verbalizes insight of current deficits.;The Patient demonstrates carryover of insight during functional tasks.;The Patient can communicate basic needs. (04/02/241126) Other Findings Endurance: Fair (04/02/241126) Light touch sensation: Intact (04/02/241126) Proprioception: Intact (04/02/241126) Coordination: Intact (04/02/241126) Tone: Normal tone (04/02/241126) Edema: No edema noted (04/02/241126) Current Functional Status: Bilateral Upper Extremity Range of Motion: WFL (04/02/241126) Strength Assessment: (4/5 throughout) (04/02/241126) Self Care Able to provide self care: No (04/02/241126) Feeding: Supervision (Please comment) (04/02/241126) Grooming: Supervision (Please comment) (04/02/241126) Dressing Upper Body: Supervision (Please comment) (simulated reaching for jacket) (04/02/241126) Lower Body: Dependent (socks) (04/02/241126) Functional Ambulation Assistive Device: Rolling walker (04/02/241126) Distance in feet:: 5 (04/02/241126) Level of Assistance: Supervision (Please Comment) (04/02/241126) Bed Mobility Supine-Sit: Contact Guard (04/02/241126) OT Transfers Sit-Stand: Supervision (Please comment) (04/02/241126) Stand-Sit: Supervision (Please comment) (04/02/241126) Bed-Chair: Supervision (Please comment) (04/02/241126) Balance Sit (Static): Fair (04/02/241126) Sit (Dynamic): Fair (04/02/241126) Stand (Static): Fair (04/02/241126) Stand (Dynamic): Fair (04/02/241126) Alarm Status Patient positioned in: Chair (04/02/241126) With: Pressure pad alarm intact and functioning and call elise in reach (04/02/241126) Following session patient seated OOB in chair with chair alarm activated. Chair alarm (did not havecord to plug into call elise system and/or room did not have port to plug cord into call elise system). Patient's nurse was made aware. Patient and Family Goals: to get well Patient Education Education Topic: Role of OT;Plan of care goals (04/02/241126) Review of Precautions: Fall;Safety (04/02/241126) Education Provided to: Patient (04/02/241126) Response to Education: Receptive and agreeable to education (04/02/241126) Barriers to learning: Medical status (04/02/241126) Preferred learning method: Combination (04/02/241126) Treatment Provided: Evaluation Moderate Complexity 16 minutes - 14582: Patient was cooperative, pleasant, and alert during treatment session. Moderate complexity evaluation performed and 3-5 activitylimitations were identified, including ADL deficit, functional mobility deficit, bed mobility deficit, decreased strength, decreased endurance, and impaired balance. Minimal or moderate modification of the functional task was necessary to complete the evaluation. Deficits Requiring O.T. Treatment: Deficits requiring O.T. treatment needs: ADL/self-care;Balance;Endurance;Functional mobility;Safety;Upper extremity strength (04/02/241126) Goals: Increase Strength of: increase 1/2 grade, Demonstrates sitting Balance at: modified independent, Demonstrates standing Balance at: modified independent, Demonstrates self care at: Grooming at Modified Independent , Bathing upper body at Modified Independent , Bathing lower body at Modified In dependent , Upper body dressing at Modified Independent , Lower body dressing at Modified Independent and Toileting at Modified Independent , Demonstrates Activity Tolerance at 40/45 minutes, Demonstrates Bed Mobility with: Supine to Sit: Modified Independent and Sit to Supine: Modified Independent, Demonstrates Transfers with: Sit to Stand: Modified Independent (100% with device/additional time) Stand to Sit: Modified Independent (100% with device/additional time) Bed to Chair/Wheelchair: Modified Independent (100% with device/additional time) Toilet: Modified Independent (100% with device/additional time) , Demonstrates Functional Ambulation: Assistive Device: least restrictive device and Level of Assistance: Modified Independent and Increase safety with transfers, ambulation and self care Goal Time Frame: 10 visits Assessment: patient is a 78 year old male admitted with septic shock and presents with minor deficits in all areas of care and mobility due to decreased strength, balance, activity tolerance, safety,and overall medical condition. Supervision to sit up at the edge of the bed and complete UE care. Required total assist for LE dressing task of donning socks due to limited functional reach, reachingto right above the ankles. Patient states his significant other helps him with all tasks below the knee at home. Stood with supervision and ambulated with use of rolling walker and no significant episodes of loss of balance. Declining further ambulation at this time. Would benefit from continued OTtreatment to maximize level of functional independence. Please consider home with post-acute care services which may include home health or outpatient therapy. The level of care will be determined incollaboration with the patient, family/caregiver and care team members. Treatment Plan: Energy Conservation, Safety, Bed mobility training, Functional Ambulation, Transfertraining, Upper extremity strengthening, Balance activities: , ADL training , and Endurance Anticipated Frequency (on eval): (1-5 x week) (04/02/241126) AM-PAC Help From Another Person Eating Meals: A little (04/02/241126) Help From Another Person Taking Care of Personal Grooming: A little (04/02/241126) Help From Another Person To Put On/Take Off Upper Body Clothing: A little (04/02/241126) Help From Another Person To Put On/Take Off Lower Body Clothing: Total (04/02/241126) Help From Another Person Toileting: A little (04/02/241126) Help From Another Person Bathing: A little (04/02/241126) OT AM-PAC Score: 16 (04/02/241126) OT AM-PAC t-Scale Score: 35.96 (04/02/241126) HLM (Highest Level of Mobility) Goal: Level 4 move to chair/commode (04/02/24 0800) A portion of this AM-PAC assessment not scored based on functional assessment ; rather clinical decision making utilized based on current findings and/or prior level of function. Please refer to future AM-PAC calculations of functional ability as they become available. Suni Méndez MS OTR/L Occupational Therapy [facility] 04/02/2024 2:23 PM * Alex Crooks DO - 04/02/2024 8:53 AM ESTAssociated Order(s): PALLIATIVE MEDICINE CONSULT IP CONSULT NOTE - Palliative Medicine [facility]-[address] [address] Name: Mitchel Harmon Location: [facility] A538/[id number] Date: 04/02/2024 Time: 8:53 AM REQUESTING SERVICE: Critical Care REASON FOR CONSULT: We have been asked to see this patient for family discussions. HPI: Patient is a 78 year old male with a medical history of metastatic pancreatic cancer to the liver diagnosed in December s/p EGD & ERCP on 01/16/2024 with stent placement. Other medical history includes CAD s/p multiple stents (2009) and CABG (1999), noninsulin dependent T2DM, HTN and HLD. Initially he presented to his outpatient PCP early in day on 04/01 for progressive weakness and fatigue. His PCP said he had pneumonia and recommended he go to the ER. He was admitted to [facility] and wasgiven 1.5L fluids before starting levophed and cefepime. CT scan chest, abdomen, pelvis without contrast notable for increase in gallbladder wall thickening with distension and pericholecystic fluid.Biliary stent was in place with no change in biliary duct dilation. There was concern his septic cristi ck was attributable to cholecystitis and may need IR for intervention. Of note, patient did receive 1U PRBC's at outside hospital for hgb 7.7 which then responded appropriately to 8.7. There was concern for possible GI bleed but patient denied any blood in the stool or dark/tarry stool and patient did have bowel movement here that was described as brown in color. Aside from low blood pressure, his hemodynamics have remained appropriate. Per chart review, patient wasto undergo CT C/A/P scheduled for 04/17 to assess for further mets. His chemo is on hold for 6 weeks, he only received 2 rounds of chemo and is due for biliary duct stent exchange scheduled for 04/21/2024. This note was copy/pasted from Tricia, dated on 04/02/24. Per chart review, pt transferred to [facility] for higher level of care for concern for obstructed biliarystent. At this time no acute surgical intervention, awaiting ERCP to evaluate biliary stent. Currently on Levophed to maintain MAP >65. At this time, patient's code status is DNR/DNI Brother Jaden : KIMBERLEY PALLIATIVE ENCOUNTER FROM TODAY'S VISIT: 04/02/2024 Patient seen at bedside and had a good conversation with Mitchel. He was resting in bed alert, oriented and stated he was aware of the seriousness of his disease. He is aware he has pancreatic cancer and shared he currently lives with a "lady friend" who also shares the same diagnosis. He states he has had experience with palliative medicine in the past when taking care of his at [facility] and shared his experience with hospice. 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 During this conversation he stated when the time comes he would prefer to at home but stated he was not sure what that would look like. At this time, he states he would like to continue disease-directed therapy and see how far things can get and whether things can get better. He shared he follows with oncology at [place] and that it would be better to get their input while he is here in the hospital. He has one daughter and son who live close to him.Prior to admission, pt has been fully independent with his ADLs with some assistance needed at times. REVIEW OF SYMPTOMS: [Severity scale of each symptom should be based on how the patient feels now.] 1. Pain Assessment: None Current Analgesic Regimen: None 2. Shortness of Breath Assessment: None Current Regimen: None 3. Nausea Assessment: None Current Regimen: None 4. Tiredness/Fatigue Assessment: None Current Regimen: None 5. Drowsiness Assessment: None 6. Depression Assessment: 1. During the past month, has patient been bothered by feeling down, depressed, or hopeless? No 2. During the past month, has patient been bothered by having little interest or pleasure in doing things? No Current Regimen: none 7. Anxiety Assessment: None Current Regimen: None 8. Anorexia/Lack of Appetite: None Current Regimen: None 9. Delirium/Agitation: No Current Regimen: none 10. Well-being Assessment: None 11. Constipation Assessment: None Current Regimen: None 12. Insomnia Assessment: None Current Regimen: None 13. Oropharyngeal Secretions or Cough: No Current Regimen: none 14. Constitutional: (-) fever chills sweats or weight loss Cardiovascular: (-) negative: no chest pain, dyspnea, syncope, or palpitations Pulmonary: (-) negative: no cough, wheezing, or shortness of breath Skin: (-) negative: no rash or new or changing moles Neurology: (-) negative: no focal neurologic defect Rest of the review of systems negative. FUNCTIONALITY: 90% - Ambulation: Full, Normal activity and work / Some evidence of disease. Self-care: Full. Intake: Normal. Conscious level: Full. 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) 02/17/2024 Moderate aortic stenosis 11/28/2021 Stable angina (HCC) 08/24/2009 PAST SURGICAL HISTORY: Past Surgical History: Procedure Laterality Date CABG, ARTERIAL, TWO 03/25/1999 CATHETERIZE LEFT HEART THRU SKIN 09/23/2009 LEFT HEART CATH, PERCUTANEOUS performed by ESTELA SANDOVAL at [facility] COLONOSCOPY, DIAGNOSTIC (RECTUM) 10/12/2019 normal / COLONOSCOPY FLEXIBLE PROXIMAL DIAGNOSTIC performed by Mitchel Armenta MD at ENDOSCOPY [facility] CORONARY ARTERY DILATION, BALLOON 08/29/2009 PTCA, SINGLE VESSEL performed by ESTELA SANDOVAL at [facility] EGD, FLEXIBLE, DIAGNOSTIC 10/12/2019 normal / ESOPHAGOGASTRODUODENOSCOPY (EGD), FLEXIBLE, TRANSORAL, DIAGNOSTIC performed by Mitchel Armenta MD at ENDOSCOPY [facility] EGD, W/ENDOSCOPIC US N/A 01/16/2024 mass pancreatic head/multiple metastatic lesion liver/biopsies show adenocarcinoma pancreas mets marco/ESOPHAGOGASTRODUODENOSCOPY (EGD), FLEXIBLE, TRANSORAL, ENDOSCOPIC ULTRASOUND performed by Jose E Bai MD at ENDOSCOPY [facility] ERCP, DIAGNOSTIC, SPECIMEN COLLECTION N/A 01/16/2024 single severe malignant appearing biliary stricture/one plastic biliary stent placed CBD/repeat 3 months/ENDOSCOPIC RETROGRADE CHOLANGIOPANCREATOGRAPHY (ERCP) DIAGNOSTIC performed by Jose E Bai MD at ENDOSCOPY [facility] REMOVE CATARACT, INSERT LENS PROSTH Bilateral FAMILY HISTORY: Family History Problem Relation Name Age of Onset Heart Disorder Mother Francisco Coronel Peno Hypertension Mother Francisco Coronel Peno Heart Disorder Father Jaden Torres Peno Hyperlipidemia Sister Lilian Friend Anachino Heart Disorder Brother Jaden Boucher Brenda Diabetes Brother Jaden Citlaly Peno Asthma Daughter Iker Yeager Diabetes Daughter Iker Yeager Family History: noncontributory SOCIAL HISTORY: Social History Tobacco Use Smoking status: Former Current packs/day: 0.00 Average packs/day: 1 pack/day for 25.0 years (25.0 ttl pk-yrs) Types: Cigarettes Start date: 1960 Quit date: 1985 Years since quittin.0 Passive exposure: Past Smokeless tobacco: Former Tobacco comments: quit in 1984. Vaping Use Vaping status: Never Used Substance Use Topics Alcohol use: Not Currently Comment: occasionally Drug use: No Family Support: Child: Primary PSYCHOSOCIAL ASSESSMENT: At times, I worry I will be a burden to my family: A little bit Pertinent Social Factors: living with friend ALLERGIES: Iodinated contrast media, Levofloxacin, and Lisinopril PHYSICAL EXAMINATION: Most Recent Vital Signs: BP: 103 mmHg/61 mmHg (04/02/24699) Pulse: 79 (04/02/24799) Resp: 19 (04/02/24799) Temp: 36.22 C (04/02/24799) Temp Summary: Temp Min: 36 C (96.8 F) Max: 36.6 C (97.9 F) SpO2: 100 % (04/02/24799) O2 flow rate: 1 L/MIN (04/02/24799) Supplemental O2 Delivery: Nasal Cannula (04/02/24799) Vital Signs Last 24 Hours: Systolic BP: Most Recent Systolic BP Av.1 mmHg Min: 93 mmHg Max: 143 mmHg Temperature: Most Recent Temperature Av.3 C Min: 36 C Max: 36.61 C Pulse: Pulse Av.5 Min: 77 Max: 94 Respirations: Resp Av.9 Min: 10 Max: 26 SpO2: SpO2 Av.8 % Min: 95 % Max: 100 % Constitutional: no acute distress CV: normal rate and rhythm, no murmur, gallops or rub Chest: normal respiratory effort Abdominal: soft Skin: warm, dry, intact: Neuro: alert LABS REVIEWED: yes, reviewed Latest Reference Range & Units 04/02/24 04:58 Troponin T, High Sensitivity <=22 ng/L 533 (HH) SODIUM 135 - 146 mmol/L 131 (L) POTASSIUM 3.5 - 5.1 mmol/L 4.3 CHLORIDE 98 - 107 mmol/L 99 CO2 22 - 32 mmol/L 20 (L) BUN 6 - 20 mg/dL 21 (H) CREATININE 0.6 - 1.2 mg/dL 1.2 EGFR >=60 mL/min 62 ANION GAP 7 - 15 mmol/L 12 GLUCOSE 70 - 120 mg/dL 105 CALCIUM 8.4 - 10.2 mg/dL 8.5 Lactate 0.4 - 2.0 mmol/L 2.1 (H) Protein 6.0 - 8.3 g/dL 5.3 (L) CBC Rpt ! WBC 4.00 - 10.80 K/uL 29.75 (H) RBC 4.50 - 5.25 M/uL 2.73 HGB 14.0 - 16.8 g/dL 7.8 (L) HCT 40.0 - 48.4 % 24.5 (L) MCV 82.0 - 99.5 fL 89.7 MCH 27.0 - 34.0 pg 28.6 MCHC 32.0 - 36.0 g/dL 31.8 RDW 11.5 - 15.5 % 17.2 PLT 140 - 400 K/uL 274 MPV 6.6 - 11.1 fL 8.8 (HH): Data is critically high (L): Data is abnormally low (H): Data is abnormally high !: Data is abnormal Rpt: View report in Results Review for more information IMAGING REVIEWED: no ASSESSMENT/PLAN: Mitchel Harmon is a/an 78 year old male referred for consultation to Palliative Medicine with the primary diagnosis of: Cancer: Metastatic Pancreatic Adenocarcinoma Secondary Diagnoses are hypertension, heart disease, hyperlipidemia, diabetes [facility] Discussion - At this time, patient was introduced to palliative medicine team - Pt's expectations were elicited in that he would like to continue medical intervention necessary for recovery - Will continue to support pt and family with goals as clinical course evolve. Palliative Encounter Introduced our Palliative Medicine team. Reviewed palliative care involvement for symptom assessment and management related to serious illness or related to disease-directed treatment. We discussed our involvement as support, coordination, advanced care planning discussion, and advance directives di scussion. We appreciate your consult request and the opportunity to assist in the care of your patient. Please do not hesitate to call or page with additional questions or concerns. We will always try to remain available. This patient was seen, examined, discussed, and reviewed with Dr. Carter at the time of consult. Cosigned by Sachi Carter MD at 04/02/2024 4:15 PM EST Associated attestation - Sachi Carter MD - 04/02/2024 4:15 PM EST I saw and evaluated the patient today. I have reviewed the resident/fellow physician note and agree. Introduced Palliative Medicine to the patient. Patient's current goal is to fix the reversible condition. He is scheduled for GI procedure today. He understands his diagnosis of metastatic pancreatic cancer. He is hoping to get Medical Oncology involved during this hospitalization mL unsure if he has remains candidate for disease directed therapy. He took care of his at home with hospice care. After his 's , he lives with a friend who is also seeking medical treatment and patient shares that he is not sure if he is able to returnhome. There was no family present during our visit. We will continue to follow along with primary team and patient's hospital course and remain available to participate our facility goals of care conversation as needed. * Vijay Mckinley MD - 04/02/2024 7:33 AM ESTAssociated Order(s): GASTROENTEROLOGY CONSULT IP Images from the original note were not included. CONSULT - Gastroenterology [facility]-[address] [address] Name: Mitchel Harmon Date: 04/02/2024 Time: 7:33 AM REQUESTING SERVICE: Critical Care Red REASON FOR CONSULT: 'Acute khai vs ascending cholangitis has biliary stent, ?stent occlusion ' HPI: Mitchel Harmon is a 78 year old male with a PMH including of metastatic pancreatic cancer, s/p ERCP with biliary plastic stent on 01/16/2024, CAD status post multiple stents, CABG (1999), and IDDM, HTN, dyslipidemia presented to [facility] for generalized weakness and fatigue, chills, where he is found to have hypotensive with concern of septic shock transferred to [facility] for further management treated with pressor support overnight and antibiotics now stable blood pressure, having abnormal LFTs with alk phos 821, bilirubin 2.3 with direct bilirubin 1.9, CT imaging concerning of gallbladder wall thickening, distended gallbladder with pericholecystic fluid, having biliary stent in place. GI is consulted for concern of ascending cholangitis and assess for consideration of ERCP. Patient was awaiting outpatient ERCP in 2 weeks for stent exchange which was scheduled on 04/21/2024. Patient reported minimal discomfort in right upper quadrant area. Denies any right upper quadrant abdominal pain at rest currently. Having little bit of discomfort. Denies any nausea, vomiting. Having decreased appetite. Last chemo was in January 2024. Had elevated troponin but denies any chest pain or shortness of breath at rest. Endoscopic history: EGD 01/16/2024: - Normal esophagus. - Normal stomach. - Normal duodenal bulb and second portion of the duodenum. EUS 01/16/2024: - A 3.5 cm mass was identified in the pancreatic head. This was staged T3 N0 M1 (based on metastasis to liver and pending cytologic confirmation) by endosonographic criteria. The staging applies if malignancy is confirmed. Fine needle biopsy performed. - Multiple metastatic lesions were found in the left lobe of the liver and in the right lobe of the liver. Fine needle biopsy performed. 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) 02/17/2024 Moderate aortic stenosis 11/28/2021 Stable angina (HCC) 08/24/2009 Past Surgical History: Past Surgical History: Procedure Laterality Date CABG, ARTERIAL, TWO 03/25/1999 CATHETERIZE LEFT HEART THRU SKIN 09/23/2009 LEFT HEART CATH, PERCUTANEOUS performed by ESTELA SANDOVAL at [facility] COLONOSCOPY, DIAGNOSTIC (RECTUM) 10/12/2019 normal / COLONOSCOPY FLEXIBLE PROXIMAL DIAGNOSTIC performed by Mitchel Armenta MD at ENDOSCOPY [facility] CORONARY ARTERY DILATION, BALLOON 08/29/2009 PTCA, SINGLE VESSEL performed by ESTELA SANDOVAL at [facility] EGD, FLEXIBLE, DIAGNOSTIC 10/12/2019 normal / ESOPHAGOGASTRODUODENOSCOPY (EGD), FLEXIBLE, TRANSORAL, DIAGNOSTIC performed by Mitchel Armenta MD at ENDOSCOPY [facility] EGD, W/ENDOSCOPIC US N/A 01/16/2024 mass pancreatic head/multiple metastatic lesion liver/biopsies show adenocarcinoma pancreas mets marco/ESOPHAGOGASTRODUODENOSCOPY (EGD), FLEXIBLE, TRANSORAL, ENDOSCOPIC ULTRASOUND performed by Jose E Bai MD at ENDOSCOPY [facility] ERCP, DIAGNOSTIC, SPECIMEN COLLECTION N/A 01/16/2024 single severe malignant appearing biliary stricture/one plastic biliary stent placed CBD/repeat 3 months/ENDOSCOPIC RETROGRADE CHOLANGIOPANCREATOGRAPHY (ERCP) DIAGNOSTIC performed by Jose E Bai MD at ENDOSCOPY [facility] REMOVE CATARACT, INSERT LENS PROSTH Bilateral Social History: Social History Tobacco Use Smoking status: Former Current packs/day: 0.00 Average packs/day: 1 pack/day for 25.0 years (25.0 ttl pk-yrs) Types: Cigarettes Start date: 1960 Quit date: 1985 Years since quittin.0 Passive exposure: Past Smokeless tobacco: Former Tobacco comments: quit in 1984. Vaping Use Vaping status: Never Used Substance Use Topics Alcohol use: Not Currently Comment: occasionally Drug use: No Family History: Family History Problem Relation Name Age of Onset Heart Disorder Mother Francisco Harmon Hypertension Mother Francisco Harmon Heart Disorder Father Jaden Harmon Hyperlipidemia Sister Lilian Guillory Heart Disorder Brother Jaden Harmon Diabetes Brother Jaden Harmon Asthma Daughter Iker Yeager Diabetes Daughter Iker Yeager Allergies: Iodinated contrast media, Levofloxacin, and Lisinopril ROS: As noted in HPI. Rest negative. PHYSICAL EXAMINATION: Most Recent Vital Signs: BP: 103 mmHg/61 mmHg (04/02/24699) Pulse: 77 (04/02/24699) Resp: 11 (04/02/24699) Temp: 36 C (04/02/24599) Temp Summary: Temp Min: 36 C (96.8 F) Max: 36.6 C (97.9 F) SpO2: 99 % (04/02/24699) O2 flow rate: 1 L/MIN (04/02/24699) Supplemental O2 Delivery: Nasal Cannula (04/02/24699) Vital Signs Last 24 Hours: Systolic BP: Most Recent Systolic BP Av.1 mmHg Min: 93 mmHg Max: 143 mmHg Temperature: Most Recent Temperature Av.3 C Min: 36 C Max: 36.61 C Pulse: Pulse Av.8 Min: 77 Max: 94 Respirations: Resp Av.8 Min: 10 Max: 26 SpO2: SpO2 Av.7 % Min: 95 % Max: 100 % Constitutional: Chronically ill-appearing, thin, NAD. A&Ox3. HEENT: NC/AT. No oral lesions. Eyes:Reactive pupil Neck: Supple, normal range of motion. CV: S1, S2 , radial pulse palpable. Chest: CTA bilat. No audible wheezing Abdomen: Soft, no RUQ tenderness, nondistended, BSx4. No appreciable ascites. Extremities: No edema. Skin: Warm and dry, no rashes. Neuro: Moves all extremities. LABS: Reviewed 04/02/24 04:58 SODIUM 131 (L) POTASSIUM 4.3 CHLORIDE 99 CO2 20 (L) BUN 21 (H) CREATININE 1.2 EGFR 62 ANION GAP 12 GLUCOSE 105 CALCIUM 8.5 Lactate 2.1 (H) Protein 5.3 (L) CBC Rpt ! WBC 29.75 (H) RBC 2.73 HGB 7.8 (L) HCT 24.5 (L) MCV 89.7 MCH 28.6 MCHC 31.8 RDW 17.2 PLT 274 MPV 8.8 04/02/24 01:58 04/02/24 04:58 Albumin 2.4 (L) 2.6 (L) AST 142 (H) 138 (H) ALT 60 (H) 50 Alkaline Phosphatase 821 (H) 685 (H) Bilirubin, Total 2.3 (H) 2.0 (H) Bilirubin, Direct 1.9 (H) 1.6 (H) Rpt: View report in Results Review for more information IMAGING: Reviewed ASSESSMENT: Mitchel Harmon is a 78 year old male with a PMH including of metastatic pancreatic cancer, s/p ERCP with biliary plastic stent on 01/16/2024, CAD status post multiple stents, CABG (1999), and IDDM, HTN, dyslipidemia presented to [facility] for generalized weakness and fatigue, chills, where he is found tohave hypotensive with concern of septic shock transferred to [facility] for further management treated with pressor support overnight and antibiotics now stable blood pressure, having abnormal LFTs with alkphos 821, bilirubin 2.3 with direct bilirubin 1.9, CT imaging concerning of gallbladder wall thickening, distended gallbladder with pericholecystic fluid, having biliary stent in place and having concern of cholangitis with signs of sepsis and signs of cholestasis. We will plan for ERCP to assess for suspected cholangitis and plan stent exchange. RECOMMENDATIONS: - Plan for ERCP today - keep pt NPO for procedure. - antibiotics per primary team. - discussed with surgical team for gallbladder distention, and GB wall thickening. - Please ensure Hgb > 7.0, INR<2, K>3.5, Platelets >50K, sodium is within 5 points of reference range prior to the procedure - continue to discuss goals of care in case of advanced metastatic pancreatic cancer and significant cardiac comorbidity. I have discussed the case with my attending, Dr. Parra. Vijay Mckinley MD Fellow, Gastroenterology and Hepatology Cosigned by Renetta Parra DO at 04/02/2024 12:16 PM EST Associated attestation - Renteta ParraDO jamie - 04/02/2024 12:16 PM EST I saw and evaluated the patient today. I have reviewed the resident/fellow physician note and agree. * Bryan Hampton MD - 04/02/2024 3:42 AM ESTAssociated Order(s): GENERAL SURGERY CONSULT IP CONSULT - Trauma/Emergency Surgery [facility]-[address] [id number] Name: Mitchel Harmon Location: [id number] Date: 04/02/2024 Time: 3:42 AM REQUESTING SERVICE: GREA Manzano REASON FOR CONSULT: Mitchel Harmon [facility] is seen at the request of GERA Manzano in consultation for "acute khai vs ascending cholangitis vs stent occlusion". HISTORY OF PRESENT ILLNESS: Mitchel Harmon is a 78M with metastatic pancreatic cancer s/p 2 rounds of chemo who presents with sxs of septic shock. He went to see his PCP for weakness and was diagnosed with PNA. He was referred to [facility] ED, where w/u was remarkable for GB wall thickening, distension, pericholecystic fluid.He had a biliary stent placed in Dec, which was seen in place on recent CT scan. Hb was noted to be7.7, and he received 1u pRBC and appropriately responded. He was hypotensive and started on levophed as well as cefepime and transferred to [facility] for higher level of care. On arrival he was requiring levo @ 4 and was aaox4. Labs remarkable for leukocytosis to 38, elevated LFTs, and elevated T and d bili. He endorses RUQ pain. He denies melena or hematochezia or coffee ground emesis. 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) (POA: Yes) BPH (benign prostatic hyperplasia) (POA: Yes) HTN, goal below 140/90 (POA: Yes) Coronary artery disease of [place] artery of [place] heart with stable angina pectoris (HCC) (POA: Yes) Gastroesophageal reflux disease without esophagitis (POA: Yes) 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) (POA: Yes) Acute cholecystitis (POA: Unknown) Sepsis without acute organ dysfunction (HCC) (POA: Unknown) POA = Present On Admission PAST MEDICAL HISTORY: 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) 02/17/2024 Moderate aortic stenosis 11/28/2021 Stable angina (HCC) 08/24/2009 PAST SURGICAL HISTORY: Past Surgical History: Procedure Laterality Date CABG, ARTERIAL, TWO 03/25/1999 CATHETERIZE LEFT HEART THRU SKIN 09/23/2009 LEFT HEART CATH, PERCUTANEOUS performed by ESTELA SANDOVAL at [facility] COLONOSCOPY, DIAGNOSTIC (RECTUM) 10/12/2019 normal / COLONOSCOPY FLEXIBLE PROXIMAL DIAGNOSTIC performed by Mitchel Armenta MD at ENDOSCOPY [facility] CORONARY ARTERY DILATION, BALLOON 08/29/2009 PTCA, SINGLE VESSEL performed by ESTELA SANDOVAL at [facility] EGD, FLEXIBLE, DIAGNOSTIC 10/12/2019 normal / ESOPHAGOGASTRODUODENOSCOPY (EGD), FLEXIBLE, TRANSORAL, DIAGNOSTIC performed by Mitchel Armenta MD at ENDOSCOPY [facility] EGD, W/ENDOSCOPIC US N/A 01/16/2024 mass pancreatic head/multiple metastatic lesion liver/biopsies show adenocarcinoma pancreas mets marco/ESOPHAGOGASTRODUODENOSCOPY (EGD), FLEXIBLE, TRANSORAL, ENDOSCOPIC ULTRASOUND performed by Jose E Bai MD at ENDOSCOPY [facility] ERCP, DIAGNOSTIC, SPECIMEN COLLECTION N/A 01/16/2024 single severe malignant appearing biliary stricture/one plastic biliary stent placed CBD/repeat 3 months/ENDOSCOPIC RETROGRADE CHOLANGIOPANCREATOGRAPHY (ERCP) DIAGNOSTIC performed by Jose E Bai MD at ENDOSCOPY [facility] REMOVE CATARACT, INSERT LENS PROSTH Bilateral FAMILY HISTORY: Family History Problem Relation Name Age of Onset Heart Disorder Mother Francisco Coronel Peno Hypertension Mother Francisco M Peno Heart Disorder Father Jaden E Peno Hyperlipidemia Sister Lilian Friend Anach[place] Heart Disorder Brother Jaden A Peno Diabetes Brother Jaden A Pendesiree Asthma Daughter Iker Yeager Diabetes Daughter Iker Yeager SOCIAL HISTORY: Social History Tobacco Use Smoking status: Former Current packs/day: 0.00 Average packs/day: 1 pack/day for 25.0 years (25.0 ttl pk-yrs) Types: Cigarettes Start date: 1960 Quit date: 1985 Years since quittin.0 Passive exposure: Past Smokeless tobacco: Former Tobacco comments: quit in 1984. Vaping Use Vaping status: Never Used Substance Use Topics Alcohol use: Not Currently Comment: occasionally Drug use: No ALLERGIES: Iodinated contrast media, Levofloxacin, and Lisinopril ROS: Otherwise negative PHYSICAL EXAMINATION: Most Recent Vital Signs: BP: 115 mmHg/72 mmHg (04/02/24299) Pulse: 88 (04/02/24299) Resp: 17 (04/02/24299) Temp: 36.61 C (04/02/24129) Temp Summary: Temp Min: 36.6 C (97.9 F) Max: 36.6 C (97.9 F) SpO2: 100 % (04/02/24299) O2 flow rate: 1 L/MIN (04/02/24299) Supplemental O2 Delivery: Nasal Cannula (04/02/24299) Vital Signs Over Last 24 Hours: Systolic BP: Most Recent Systolic BP Av.4 mmHg Min: 93 mmHg Max: 143 mmHg Temperature: Most Recent Temperature Av.61 C Min: 36.61 C Max: 36.61 C Pulse: Pulse Av.9 Min: 88 Max: 94 Respirations: Resp Av.4 Min: 17 Max: 26 SpO2: SpO2 Av % Min: 97 % Max: 100 % Constitutional: (+) ill appearing, (+) chronically ill HEENT: normal: normocephalic, atraumatic; no masses, tenderness, or adenopathy Chest: normal respiratory effort, lungs clear to auscultation and percussion Abdomen: soft, ND, mildly TTP in mid abdomen and RUQ Musculoskeletal: (-) negative Skin: warm, dry, intact, jaundiced : Neuro: alert, Glascow Coma Score 15 LABS: Labs reviewed as indicated below: CBC Lab Results Component Value Date/Time WBC 38.04 (H) 04/02/2024 01:58 AM WBC 6.13 03/11/2020 08:10 AM HGB 8.8 (L) 04/02/2024 01:58 AM HGB 12.5 (L) 03/11/2020 08:10 AM HCT 27.5 (L) 04/02/2024 01:58 AM HCT 38.3 (L) 03/11/2020 08:10 AM PLT 354 04/02/2024 01:58 AM PLT 248 03/11/2020 08:10 AM BMP Lab Results Component Value Date/Time NA 130 (L) 04/02/2024 01:58 AM NA 140 03/11/2020 08:10 AM POTASSIUM 4.5 04/02/2024 01:58 AM POTASSIUM 4.6 03/11/2020 08:10 AM CL 98 04/02/2024 01:58 AM CL 101 03/11/2020 08:10 AM CO2 19 (L) 04/02/2024 01:58 AM CO2 29 03/11/2020 08:10 AM BUN 20 04/02/2024 01:58 AM BUN 27 (H) 03/11/2020 08:10 AM CREAT 1.2 04/02/2024 01:58 AM CREAT 1.2 03/11/2020 08:10 AM Ca, Mg, Phos Lab Results Component Value Date/Time CA 9.0 04/02/2024 01:58 AM CA 9.4 03/11/2020 08:10 AM MG 1.9 04/02/2024 01:58 AM MG 1.9 03/11/2020 08:10 AM PHOSPHORUS 3.6 04/02/2024 01:58 AM PHOSPHORUS 3.4 08/29/2009 08:20 AM IMAGING: CT at OSH showing GB wall thickening, distension, pericholecystic fluid c/f possible cholecystitis versus ascending cholangitis IMPRESSION and PLAN: 78M with metastatic pancreatic cancer presents with sepsis and possible acute cholecystitis versus obstructed biliary stent. -No acute surgical intervention. -Recommend GI consult. Needs ERCP to evaluate biliary stent -Trend hepatic fx panel -Wean pressors as able, titrate for MAP >65 -Recommend palliative consult. Patient is not a good surgical candidate and with progression of disease, he should be evaluated by palliative medicine -If no ERCP, recommend HIDA to evaluate for cholecystitis -IV abx Seen, discussed with Dr. Memo Solis MD PGY-3, General Surgery Dante Watters MD, PGY-4 General Surgery [facility] I saw and evaluated the patient today. I have reviewed the resident/fellow physician note and agree. 78 year old male with PMHx of metastatic pancreatic cancer s/p stent and chemo transferred from [facility] with distended intra and extra hepatic ducts and gallbladder. Feeling better on arrival. Labs and imaging reviewed. Chronically ill, thin; Neuro: alert, oriented; Lungs: normal respiratory effort; CV: tachy; Abdomen: soft, upper abdominal tenderness. No acute surgical intervention NPO IVF Needs stent interrogation/ replacement with GI Recommend palliative consult documented in this encounter Nursing Notes * Ash Gomez RN - 04/17/2024 9:20 AM EST Order to remove PICC line verified in chart. 48cm PICC removed without complication. 2x2, antibiotic ointment and tegaderm placed over site. Instructed pt to allow dressing to remain intact for atleast 48 hours post removal. * Lupe Guadalupe RN - 04/13/2024 5:52 PM EST I have reviewed and agree with the charting done by Margaret Nieto RN. * Margaret Nieto RN - 04/13/2024 11:34 AM EST NURSING AMBULATION OXYGEN TEST [address] [address] Name: Mitchel Harmon Location: [facility] B843/A Date: 04/13/2024 Time: 11:34 AM Date of test: 04/13/2024 (needs to be completed within 48 hours of discharge) O2 saturation on room air at rest: 100 % O2 saturation at rest is less than or equal to 88 %: no O2 saturation on room air during ambulation: 100 % O2 saturation during ambulation is less than or equal to 88 %: no * Jacinta Greenberg RN - 04/12/2024 3:56 PM EST Patient wanted to ambulate before afternoon dose of Bumex. Stated he felt dizzy upon standing. BP check - sitting was 99/55 and standing was 55/36. Dr Villarreal made aware. * Jj Felix LPN - 04/07/2024 5:48 AM EST Ann andrade made aware via TT that EKG was completed. * Calderon Perez RN - 04/05/2024 4:45 AM EST 2345H- patient is having chills and complaining of SOB. VS taken HR is in 150's, Spo2 of 100 on 2LPM, increased in work of breathing, Manual BP 124/76 mmHg, Temp 97.2F. EKG was done, placed on telemetry. Requested Provider Ann Jay to come at bedside and evaluate patient. Lasix given as ordered, Xray, labs was done. RT was paged and placed patient to [facility]. 0055H-after lasix, BP went down to 82/56mmHg, provider notified. Albumin given as ordered. BP afterwas 95/55mmHg Provider ordered patient for CT-PE. Patient has an allergy to contrast, IV contrast prep was ordered. CT called and agreed to do it at 8AM, 1st dose of Solu-medrol given at 3am. * Maynor Bird RN - 04/02/2024 11:13 PM EST ..Dual Licensed Skin Assessment completed by Theodore. The patient is/has a N/A Skin Breakdown (includes non blanchable erythema): No * Betty Holder RN - 04/02/2024 4:54 PM EST Per verbal order, the physician has examined the patient, prescribed and verified the charted medication, and certified that he is recovered and may return to the nursing sauceda. DISCHARGE PROGRESS NOTE - ENDOSCOPY [facility] [address] Name: Mitchel Harmon Location: [facility] HFAM/Endo Date: 04/02/2024 Time: 4:54 PM Patient is discharged under the care of : PUNEET Clarke RN Report called to N/A bedside report given Means of transportation: bed Bronchoscopy: N/A Oxygen support: N/A * Phuong Sainz RN - 04/02/2024 3:20 PM EST Procedure being completed under general anesthesia. Please see anesthesia record for medications and vital signs. * Logan Mckinley RN - 04/02/2024 2:19 AM EST Dual Licensed Skin Assessment completed by Logan MASSEY and Ynes MASSEY . The patient is/has a N/A Skin Breakdown (includes non blanchable erythema): No documented in this encounter Miscellaneous Notes * Ancillary Progress Note - Carolina Barragan, DARIA - 04/17/2024 9:21 AM EST At request of CM, HEAVY EQUIPMENT FIELD MECHANIC made referral for patient to [facility] upon discharge ([phone]). * Ancillary Progress Note - Cem Lopes RN - 04/17/2024 9:20 AM EST CARE MANAGEMENT - ADULT TRANSITION NOTE [facility] [address] Name: Mitchel Harmon Location[facility] Date: 04/17/2024 Time: 9:21 AM Risk Stratification Risk Stratification Psycho Social / Medical Concerns Identified: None Identified (04/03/24 1143) Readmission Risk Score: 22.23 (04/17/24 0800) AM-PAC Score With Stairs : 19 (04/17/24 0806) Caregiver Information Emergency Contacts Name Relation Home Work Mobile PrincefortinothienJohann (ABHINAV) Other - (no specific identity) [phone] Ebony Downing Adult Child [phone] Iraida Myrick Significant Other [phone] Other Contacts Name Relation Home Work Mobile Iker Yeager Adult Child [phone] Transition of Care Checklist Narrative: CM made referral to [facility] and [facility] when pt is discharged. Anticipated Transportation at Discharge: son Patient/Family Expectations: Pt to be discharged when medically stable. Transition Planning Transition Planning Transition Plan/Considerations: Needs identified - Discharge planning services explained to patientfamily / caregiver - Choices offered (04/03/24 1144) Transition services explained and patient/family/caregiver agreeable: Home with Home Care () Additional Considerations: Care Management will continue to monitor and assist with discharge planning needs * Care Plan - Jacinta Greenberg RN - 04/17/2024 9:13 AM EST Clinical Goal(s): patient will discharge to home (04/17/24 0837) Possible barriers to meeting goal(s)/advancing plan of care: none Stability of the patient: Moderately stable - low risk of patient condition declining or worsening Summary regarding today's goal(s): Met: will discharge Recommendations: follow up as ordered * Care Plan - Maggie Frausto RN - 04/16/2024 7:57 PM EST Clinical Goal(s): Pt will be free from falls (04/16/24 0700) Possible barriers to meeting goal(s)/advancing plan of care: fall risk Stability of the patient: Moderately stable - low risk of patient condition declining or worsening Summary regarding today's goal(s): Met: Patient remained free from falls Recommendations: call elise within reach, hourly rounding * Communication - Ritu Gongora DO - 04/16/2024 3:55 PM EST Spoke to patient's son in law Johann regarding patient update. All questions were answered. * Ancillary Progress Note - Caroline Rosario Chaplain - 04/16/2024 3:51 PM EST PROGRESS NOTE - Spiritual Care Contact Information [facility] [address] Name: Mitchel Harmon Location: [facility] B843/A Date: 04/16/2024 Time: 3:52 PM Evangelical: Presbyterian [48] Orthodoxy Affiliations: REASON FOR VISIT: rounding REQUEST RECEIVED FROM: rounding VISIT LENGTH: 20 REQUEST FACTORS (Nature of Situation): concerns over discharge FOCUS OF CARE: Patient SPIRITUAL ASSESSMENT: Raquel or Belief System: Did not identify Most Important Need(s) / Concern(s): concerns over discharge Sense of Community and/or Orthodoxy Affiliation: Did not identify Addresses need(s)/concerns(s) and/or jomar through: Debriefing, Family SPIRITUAL CARE PROVIDED: Licensed Nuclear Operator addressed needs/concerns and/or coping through: Listening presence and Supportive dialogue REFERRAL TO: N/A OUTCOMES: Comfort/Healing Presence ANNOTATION: Patient told me that he is being discharged tomorrow. He said that he has concerns about this because his significant other is sick and will need treatment. He is afraid of not having thehelp he needs if he is alone and/or if both he and his s.o. are not doing well. He stated that he wanted to go into a rehab, but that the insurance company won't pay for it. He has family support, rosina discussed his organizing the family to get as much support as possible. He declined prayer. * Ancillary Progress Note - Carolina Barragan OSA - 04/16/2024 2:24 PM EST At request of CM, HEAVY EQUIPMENT FIELD MECHANIC contacted [facility] , spoke with Laurita and informed of discharge date/time of 04/17/2023 called at 2:25 PM. * Ancillary Progress Note - Alejandra Hernández RDN - 04/16/2024 9:40 AM EST CLINICAL NUTRITION ADULT RISK ASSESSMENT [address] [address] Name: Mitchel Harmon Location: [facility] B843/A Date: 04/16/2024 Time: 11:03 AM How patient was identified (select 2): date and Name Mitchel Harmon is a 78 year old male being assessed for clinical nutrition risk related to follow-up Primary diagnosis: 78 year old male, with metastatic pancreatic cancer, was admitted on 04/02/2024 and presents with weakness. Other pertinent information: The patient reports that his appetite has been good over the last seven days. He is consuming greater than 75% of his meals. He is also drinking the boost supplements TID. The patient denies having any issues related to nausea, vomiting, constipation, or diarrhea. The patient reported his food preferences to this machine sign writer, which will be sent to the food counter attendant team. Will continue to monitor the patient's weight status, laboratory values, and oral intakes. Anthropometrics Measurements Admission weight (for dietitians): 70 kg Height: 167.6 cm (5' 5.98") (04/02/24 0130) Weight: 73.3 kg (161 lb 8 oz) (04/16/24 0230) BMI: 25.03 (04/02/24 0130) Usual Body Weight or EDW for Dialysis Patients: 69-74 kg Diet: 4 Choices (60 gm) Consistent Carbohydrate Heart Healthy, 2 gm Sodium Previously followed diet: Regular Food Allergies/Intolerances: None. Oral Nutrition Supplement (ONS): Boost (1 cup provides 240 calories, 10 grams protein, 37 grams carbohydrate) TID Pertinent medications/vitamins/minerals/supplements: Bumex, Novolog, Magnesium L-Lactate, Nutrisource, Prilosec, RISK FACTORS: Adult Energy Intake: No significant decrease Interpretation of Weight Change: No recent/significant weight change Skin: Intact NUTRITION RISK CATEGORY: Nutrition Risk Category: Low/Moderate (0-1 factors) Clinical Nutrition Recommendations: Diet: Continue current nutrition plan NUTRITION INTERVENTION/PLAN: Continue current care plan Will follow and adjust nutritional plan as medical condition requires. Please contact for change(s)in patient condition requiring earlier intervention. Alejandra Hernández RDN, LDN Registered Dietitian [phone] Available via [employer] * Care Plan - Lele Baeza RN - 04/15/2024 10:16 PM EST Clinical Goal(s): Patient will remain free from falls. (04/15/24 0800) Possible barriers to meeting goal(s)/advancing plan of care: none Stability of the patient: Moderately stable - low risk of patient condition declining or worsening Summary regarding today's goal(s): Met: patient had no falls Recommendations: keep call elise within reach, use walker when ambulating and keep nonskid socks on patient * Ancillary Progress Note - Sabina Landry MSW - 04/15/2024 2:09 PM EST CARE MANAGEMENT - ADULT TRANSITION NOTE [facility] [address] Name: Mitchel Harmon Location: [facility] Date: 04/15/2024 Time: 2:10 PM Risk Stratification Risk Stratification Psycho Social / Medical Concerns Identified: None Identified (04/03/24 1143) Readmission Risk Score: 21.68 (04/15/24 1201) AM-PAC Score With Stairs : 21 (04/15/24 1310) Caregiver Information Emergency Contacts Name Relation Home Work Mobile Johann Downing (ABHINAV) Other - (no specific identity) [phone] Ebony Downing Adult Child [phone] Iraida Myrick Significant Other [phone] Other Contacts Name Relation Home Work Mobile Iker Yeager Adult Child [phone] Transition of Care Checklist Narrative: Plan was for pt to d/c today to SNF for IV abx. However, pt only needing 1 more day of IV abx with no other skilled need (AMPAC of 21 and cleared for home). After multiple discussions with pt, pt's son in law, GHP and service, pt/fam decided to finish abx at [facility] and then go home with [facility]. Per pt, [facility] was [facility]- CM to call and update them on DC plan. SW updated [facility] admissions of plan as well. Anticipated Transportation at Discharge: family Patient/Family Expectations: home with HH Transition Planning Transition Planning Transition Plan/Considerations: Needs identified - Discharge planning services explained to patientfamily / caregiver - Choices offered (04/03/24 1144) Transition services explained and patient/family/caregiver agreeable: Home with Home Care () Additional Considerations: NA Care Management will continue to monitor and assist with discharge planning needs * Ancillary Progress Note - Liv Schroeder PTA - 04/15/2024 1:10 PM EST PROGRESS NOTE - Physical Therapy [facility] [address] Name: Mitchel Harmon Location: [facility] Date: 04/15/2024 Time: 1:10 PM Mitchel Harmon is a/an 78 year old male. Patient Status: Inpatient Insurance: Payor: [employer] Plan: [employer] PREFERRED ADVANTAGE RX DC-ID Product Type: *No Product type* Patient Seen: at bedside, nursing cleared patient for therapy Patient Identified By: Name, ID Band and Date Diagnosis: sepsis (04/15/241309) Status of treatment: Treatment completed (04/15/241309) Orders: PT evaluation and treatment (04/15/241309) Weight Bearing Status: Weight bearing as tolerated (04/15/241309) Precautions: Alarms;Safety;Falls;High flow oxygen (04/15/241309) Total Treatment Time--free text: 38 (04/15/241309) Subjective: pt reports feeling better overall Pain: No complaints of pain Transfers Sit-Stand: Modified Independent (04/15/241309) Stand-Sit: Modified Independent (04/15/241309) Ambulation: Distance ambulated (feet): 100 Assistive Device: Rolling walker Assist: Supervision Stair Training: Number of stairs: 2 Number of handrails: RW and single stair Level of Assistance: Contact Guard Balance Sit (Static): Good (04/15/241309) Sit (Dynamic): Good (04/15/241309) Stand (Static): Fair (04/15/241309) Stand (Dynamic): Fair (04/15/241309) Patient and or Family Goal(s): to get well and to return home Topic of Education: Safety with mobility and Goals/plan of care Extremity Exercise Sitting: Hip;Knee;Ankle (AROM; isometrics in long sit) (04/15/241309) Hip : Bilateral LE;Flexion;Adduction;Abduction;3 sets of 10 (04/15/241309) Knee : Bilateral LE;Flexion;Extension;3 sets of 10 (04/15/241309) Ankle: Bilateral LE;Plantar flexion;Dorsiflexion;3 sets of 10 (04/15/241309) Supine: Isometrics (long sit in recliner) (04/15/241309) Isometrics: Bilateral LE;Quad sets;3 sets of 10 (04/15/241309) Method of Education: Verbal discussion and explanation provided to pt: verbalized understanding andor agreement of this information and demonstrated the exercise and or task Treatment Provided: Therapeutic Activities 10 minutes: transfer training Pt education on safety at home Gait Training 13 minutes: gait training with rolling walker stair training Therapeutic Exercises: 15 minutes Alarm Status Patient positioned in: Chair (04/15/241309) With: Call elise in reach (alarm not set upon arrival) (04/15/241309) Patient Education Review of Precautions: Safety (04/15/241309) Safety Awareness: Patient verbalizes insight of current deficits;Patient demonstrates carryover of insight during functional tasks;Patient can communicate basic needs (04/15/241309) Preferred learning method: Combination (04/15/241309) Barriers to learning: None (04/15/241309) Method of Education: Verbalized to patient;Patient demonstrated task (04/15/241309) Assessment: pt alert and agreeable to treatment. Pt seated in recliner upon arrival. Pt seen for transfers, ambulation, stair negotiation, therapeutic exercises, and education on safety at home. Pt has improved activity tolerance and strength, although remains a deficit. Discussed with pt the importance of paying attention to his body as it is not good to sit all day, but also not to overdo it when too tired. Pt in agreement and follows cues and education well. Pt may need BSC if fatigued. Pt was concerned about the amount of times he has to use the urinal. Please consider post-acute care services which may include home health, retirement, outpatient therapy or inpatient rehabilitation. The level of care will be determined in collaboration with patient, family/caregiver and care teammembers. Deficits requiring P.T. treatment needs: Safety;Mobility;Balance;Weakness;Endurance;Lower extremitystrength (04/15/241309) Plan: Continue with current treatment plan established on evaluation. AM PAC Score with Stairs: 21 * Ancillary Progress Note - Kian Ellis COTA - 04/15/2024 9:17 AM EST PROGRESS NOTE - Occupational Therapy [facility] [address] Name: Mitchel Harmon Location: [facility] B843/A Date: 04/15/2024 Time: 9:17 AM Mitchel Harmon is a 78 year old male. Patient Status: Inpatient Insurance: Payor: [employer] [place] Plan: [facility] [employer]AL[employer] PREFERRED ADVANTAGE RX DC-ID Product Type: *No Product type* Patient Seen: at bedside, nursing cleared patient for therapy Patient Identified By: Name, ID Band and Date Diagnosis: septic shock (04/15/24916) Status of treatment: Treatment completed (04/15/24916) Orders: OT evaluation and treatment (04/15/24916) Weight Bearing Status: Weight bearing as tolerated (04/15/24916) Precautions: Falls;Safety (No alarms on bed upon entering the room) (04/15/24916) Total Treatment Time: 28 (04/15/24916) Subjective: agreeable Pain: No complaints of pain Observations Consciousness: Alert (04/15/24916) Orientation: Oriented times 4 (04/15/24916) Psychosocial: Patient can communicate basic needs;Patient can converse in a social setting (04/15/24916) Sitting posture: Forward head;Rounded shoulders (04/15/24916) Standing posture: Forward head;Rounded shoulders (04/15/24916) Safety awareness: The Patient verbalizes insight of current deficits.;The Patient demonstrates carryover of insight during functional tasks. (04/15/24916) Other Findings Endurance: Fair (04/15/24916) Light touch sensation: Intact (04/02/241126) Proprioception: Intact (04/02/24 112) Coordination: Intact (04/02/24 112) Tone: Normal tone (04/02/24 112) Edema: No edema noted (04/02/241126) Current Functional Status: Activities of Daily Living: Self Care Able to provide self care: No (04/02/241126) Feeding: Not Tested (04/10/24916) Grooming: Moderate Assistance (standing at sink to wash face and hands, complete oral care) (04/15/24916) Toileting: Modified Independent (seatd for bladder) (04/15/24916) Dressing Upper Body: Modified Independent (gown) (04/15/24916) Lower Body: Modified Independent (doff and don socks seated) (04/15/24916) Functional Ambulation Assistive Device: Rolling walker (04/15/24916) Distance in feet:: 20 (x2) (04/15/24916) Level of Assistance: Modified Independent (04/15/24916) Bed Mobility Supine-Sit: Modified Independent (04/15/24916) Sit-Supine: Modified Independent (04/15/24916) OT Transfers Sit-Stand: Modified Independent (bed, recliner) (04/15/24916) Stand-Sit: Modified Independent (bed and recliner) (04/15/24916) Bed-Chair: Modified Independent (with right side support to simulate home set up) (04/15/24916) Balance Sit (Static): Good (04/15/24916) Sit (Dynamic): Fair (+) (04/15/24916) Stand (Static): Fair (+) (04/15/24916) Stand (Dynamic): Fair (+) (04/15/24916) Patient Education Education Topic: Role of OT;Plan of care goals;Energy conservation;Other - describe (shower chair) (04/15/24916) Review of Precautions: Safety;Fall (04/15/24916) Review of Exercises: Verbal Exercises Provided (04/15/24916) Review of Home Program: Yes (04/15/24916) Teachback Test Complete: Yes (04/15/24916) Method of Education: Verbalized to patient;Demonstrated to patient (04/15/24916) Education Provided to: Patient (04/15/24916) Response to Education: Receptive and agreeable to education (04/15/24916) Barriers to learning: None (04/15/24916) Preferred learning method: Combination (04/15/24916) Alarm Status Patient positioned in: Chair (04/15/24916) With: Call elise in reach (04/15/24916) Treatment Provided: Self Fpc Management Trainin minutes Upper Extremity exercise Demonstrate Exercises: (NT) (04/15/24916) Peformed in: (N/A) (04/15/24916) Deficits requiring O.T. treatment needs: ADL/self- care;Balance;Endurance;Functional mobility;Safety;Upper extremity strength (04/15/24916) Assessment: Pt seated edge of the bed upon entering the room. Pt demonstrated upper and lower body dressing with gown to simulate shirt and doffing/donning socks, Mod I level. Pt trialed bed mobilitywith head of bed flat to simulate bed at home. Pt improve to Mod I level sit <> supine positions. Functional transfer from the bed, ambulation to the bathroom 20' with rolling walker, and transfer <> the toilet 2 times completed Mod I level. Toileting performed in sitting position, and grooming at the sink in standing improved to Mod I level for both activities. Pt ambulated with the rolling walker 20' to there recliner, transferred to it, and was left with all needs met. verbal education with examples provided on Energy Conservation with reverberation from the Pt. Pt expressed already having and exercise program at home that he completes during the week. Encouraged him to continue exercises of BUE's. Lastly, Pt educated on purchasing a shower chair for home to which he agreedas a safety and energy conservation tactic. Pt has improved in all aspects of functional transfers, short distance mobility and self care. Please consider home with post-acute care services which may include home health or outpatient therapy. The level of care will be determined in collaboration with the patient, family/caregiver and care team members. Plan: Anticipated Frequency (on eval): (1-5 x week) (04/02/24 1127) Equipment Equipment used in Therapy: Rolling walker;Grab bars (04/15/24916) Equipment Needs Equipment needs: Shower chair (04/15/24916) AM-PAC Help From Another Person Eating Meals: None (04/15/24916) Help From Another Person Taking Care of Personal Grooming: None (04/15/24916) Help From Another Person To Put On/Take Off Upper Body Clothing: None (04/15/24916) Help From Another Person To Put On/Take Off Lower Body Clothing: None (04/15/24916) Help From Another Person Toileting: None (04/15/24916) Help From Another Person Bathing: A little (04/15/24916) OT AM-PAC Score: 23 (04/15/24916) OT AM-PAC t-Scale Score: 51.12 (04/15/24916) HLM (Highest Level of Mobility) Goal: Level 6 walk 10 steps or more (04/15/24 08) A portion of this AM-PAC assessment not scored based on functional assessmen; rather clinical decision making utilized based on current findings and/or prior level of function. Please refer to futureAM-PAC calculations of functional ability as they become available. * Care Plan - Lele Baeza RN - 04/14/2024 11:15 PM EST Clinical Goal(s): pt will remain free from falls (04/14/24 1629) Possible barriers to meeting goal(s)/advancing plan of care: Pt has had some episodes of orthostatic hypotension Stability of the patient: Moderately stable - low risk of patient condition declining or worsening Summary regarding today's goal(s): Met: patient remained free from falls Recommendations: continue plan of care * Ancillary Progress Note - Ynes Kevin MSW - 04/14/2024 2:23 PM EST CARE MANAGEMENT - ADULT TRANSITION NOTE [facility] [address] Name: Mitchel Harmon Location: [place] [address]/ Date: 04/14/2024 Time: 2:23 PM Risk Stratification Risk Stratification Psycho Social / Medical Concerns Identified: None Identified (04/03/24 1143) Readmission Risk Score: 21.59 (04/14/24 1201) AM-PAC Score With Stairs : 18 (04/13/24 0822) Caregiver Information Emergency Contacts Name Relation Home Work Mobile Johann Downing (ABHINAV) Other - (no specific identity) [phone] Ebony Downing Adult Child [phone] Iraida Myrick Significant Other [phone] Other Contacts Name Relation Home Work Mobile Iker Yeager Adult Child [phone] Transition of Care Checklist Narrative: Case discussed during IDT rounds. Per service, pt is medically stable for d/c - pending placement. Of note, [facility] is accepted at [facility] - however pt requesting for SW to follow up with [facility] SNF due to proximity from pt's home. ALBERTO spoke with Boris at [facility], who requested referralinfo be faxed ([phone]). ALBERTO requested [facility] to fax referral info. Update 1400: ALBERTO spoke with [facility], who reported they received referral information and that dept was reviewing. Update 1450: ALBERTO spoke with [facility] FROYLAN Gruber, to follow up on referral. Allyn reported she was reviewing and inquired about pt's dispo plan once able to d/c from SNF. ALBERTO provided information and explained that pt is requested SNF for STR and to complete IVABX. Allyn appreciated information andreported SW would need to follow up with [facility] in admissions to confirm if they have an available bed. ALBERTO provided update of above to pt's family. Pt and pt's family requested SW continue to follow up with [facility] SNF. ALBERTO made [facility] aware that SW still awaiting response from [facility]. Update 1520: ALBERTO received call from Boris at [facility], who reported they're expected d/c is no longer happening so there is no bed availability. ALBERTO made pt and pt's daughter Iker, aware of above. Pt and pt's daughter agreeable to [facility]. [facility] able to accept pt tomorrow 04/15. ALBERTO requested insurance auth via [employer]. Anticipated Transportation at Discharge: Patient/Family Expectations: SNF for ivabx and STR Transition Planning Transition Planning Transition Plan/Considerations: Needs identified - Discharge planning services explained to patientfamily / caregiver - Choices offered (04/03/24 1145) Transition services explained and patient/family/caregiver agreeable: Home with Home Care (144) Additional Considerations: - Care Management will continue to monitor and assist with discharge planning needs * Care Plan - Malgorzata Skinner RN - 04/14/2024 11:37 AM EST Clinical Goal(s): Pt will remain free from falls this shift (04/14/24 0700) Possible barriers to meeting goal(s)/advancing plan of care: impaired mobility and hospital environment Stability of the patient: Moderately stable - low risk of patient condition declining or worsening Summary regarding today's goal(s): Met: Pt did not fall Recommendations: Continue use of fall precautions and purposeful hourly rounding * Care Plan - Mandie Silverio RN - 04/14/2024 12:38 AM EST Clinical Goal(s): Pt will maintain adequate nutritional intake (04/13/24 0700) Possible barriers to meeting goal(s)/advancing plan of care: none Stability of the patient: Moderately stable - low risk of patient condition declining or worsening Summary regarding today's goal(s): Met: pt has adequate nutritional intake Recommendations: continue plan of care * Ancillary Progress Note - Kenia Huynh BSW - 04/13/2024 4:41 PM EST CARE MANAGEMENT - ADULT TRANSITION NOTE [facility] [place] [address] Name: Mitchel Harmon Location: [facility] B843/A Date: 04/13/2024 Time: 4:41 PM Risk Stratification Risk Stratification Psycho Social / Medical Concerns Identified: None Identified (04/03/24 1143) Readmission Risk Score: 22.84 (04/13/24 1600) AM-PAC Score With Stairs : 18 (04/13/24 0822) Caregiver Information Emergency Contacts Name Relation Home Work Mobile SalinaJohann (ABHINAV) Other - (no specific identity) [phone] PrincexochiltEbony gibbs Adult Child [phone] Iraida Myrick Significant Other [phone] Other Contacts Name Relation Home Work Mobile Iker Yeager Adult Child [phone] Transition of Care Checklist Narrative: left for all preferred SNF choices [place], [facility], [facility]. [facility] accepted in [facility](x2) left for admission to [facility]. SW met with patient and family to discuss discharge plan. Patient would like confirmation from [facility] if they are able to accept prior to agreeingto go to [facility] (because of distance). Patient is agreeable to discharge to [facility] if other preferred SNF's do not have bed availability. UPDATE: received call from Yanet with [facility] they are reviewing and will update care management tomorrow if they are able to accept patient. Anticipated Transportation at Discharge: Family Patient/Family Expectations: SNF Transition Planning Transition Planning Transition Plan/Considerations: Needs identified - Discharge planning services explained to patientfamily / caregiver - Choices offered (04/03/24 1144) Transition services explained and patient/family/caregiver agreeable: Home with Home Care (144) Additional Considerations: - Care Management will continue to monitor and assist with discharge planning needs * Care Plan - Lele Baeza RN - 04/12/2024 10:50 PM EST Clinical Goal(s): patient will ambulate in [place] (04/12/24 0835) Possible barriers to meeting goal(s)/advancing plan of care: none Stability of the patient: Moderately stable - low risk of patient condition declining or worsening Summary regarding today's goal(s): Not Met: patient was unable to ambulate in puente due to onset of hypotension when standing and orders from provider for bedrest Recommendations: treat hypotension and maintain bedrest as ordered by provider * Communication - John Villarreal MD - 04/12/2024 7:23 PM EST Paged by RN patient's blood pressure is 99/55 sitting and 56/33 with standing and patient was dizzy. Evaluated patient at bedside. Patient sitting comfortably. No symptoms. Saturating well on RA. Denies dizziness, chest pain or any other symptoms. IVF 250ml bolus ordered and IV albumin ordered. After 250ml bolus patient's blood pressure same 99/55 sitting and 70/44 with standing. I told RN not tomake patient stand up and bed rest. She said patient stood for bowel movement. To give IV albumin bolus. Likely hypotension 2/2 overdiuresis. Bumex held. NURSING PROGRAM MANAGER imdur and metoprolol held. Continue tele monitoring, additional 250 IVF bolus ordered, night team to follow up closely Reevaluated patient at bedside. He has no complains. No dizziness, chest pain. On RA BP 97/55 | Pulse 77 | Temp 36.7 C (98.1 F) (Tympanic) | Resp 18 | Ht 1.676 m (5' 5.98") | Wt 72.4 kg (159 lb 9.6 oz) | SpO2 100% | BMI 25.77 kg/m | BSA 1.84 m Constitutional: Patient sitting in bed comfortably, not in acute distress HEENT: atraumatic, moist mucous membrane. ,mediport site clean bandage CV: normal heart sounds, normal rate and rhythm, no murmurs Chest: lungs clear to auscultation b/l, no wheezes and crackles Abdomen: soft, non tender, non distended, +BS Extremities: 1+ LE edema, no cyanosis Skin: warm, dry, intact Neuro: alert, answering questions Psych: normal mood and affect Continue IVF as mentioned above, he hasn't received second bolus 250ml and currently getting IV albumin infusion. Having orthostatic hypotension. Again asked RN to not take orthostatic vitals, bed rest only night team to follow up * Ancillary Progress Note - Kenia Huynh BSW - 04/12/2024 3:01 PM EST CARE MANAGEMENT - ADULT TRANSITION NOTE [facility] [address] Name: Mitchel Harmon Location: [facility] B843/A Date: 04/12/2024 Time: 3:01 PM Risk Stratification Risk Stratification Psycho Social / Medical Concerns Identified: None Identified (04/03/24 1143) Readmission Risk Score: 22.92 (04/12/24 1200) AM-PAC Score With Stairs : 20 (04/11/24 0902) Caregiver Information Emergency Contacts Name Relation Home Work Mobile Jhoann Downing ([facility]) Other - (no specific identity) [phone] SalinaEbony Adult Child [phone] RamezIraida Significant Other [phone] Other Contacts Name Relation Home Work Mobile Iker Yeager Adult Child [phone] Transition of Care Checklist Narrative: CM paged by service: patient requesting to to go to SNF when medically stable. SW met with patient patient agreeable to additional SNF choices: [facility], [facility] -referrals made, left for admissions. UPDATE 1400: SW met with patient and family, they prefer not to have patient go to [facility] (because of location). SW requested HEAVY EQUIPMENT FIELD MECHANIC to follow up with preferred SNF choices. Anticipated Transportation at Discharge: family? Patient/Family Expectations: SNF Transition Planning Transition Planning Transition Plan/Considerations: Needs identified - Discharge planning services explained to patientfamily / caregiver - Choices offered (04/03/24 1144) Transition services explained and patient/family/caregiver agreeable: Home with Home Care (144) Additional Considerations: - Care Management will continue to monitor and assist with discharge planning needs * Care Plan - Lele Baeza RN - 04/11/2024 10:36 PM EST Clinical Goal(s): Pt will report any shortness of breath to staff (04/11/24 1918) Possible barriers to meeting goal(s)/advancing plan of care: patient requiring supplemental oxygen via nasal cannula Stability of the patient: Moderately stable - low risk of patient condition declining or worsening Summary regarding today's goal(s): Met: patient reported any occurrences of shortness of breath to staff Recommendations: titrate oxygen as needed to maintain oxygen saturation greater than 93% * Care Plan - Lele Baeza RN - 04/10/2024 11:29 PM EST Clinical Goal(s): Patient will maintain O2 saturation > 90%. (04/10/24 0800) Possible barriers to meeting goal(s)/advancing plan of care: none Stability of the patient: Moderately stable - low risk of patient condition declining or worsening Summary regarding today's goal(s): Met: patient maintained an oxygen saturation above 90% at 2L nasal cannula Recommendations: titrate oxygen as needed to maintain oxygen saturation greater then 90% and encourage patient to use flutter and incentive spirometer * Ancillary Progress Note - Liv Schroeder PTA - 04/10/2024 1:17 PM EST PROGRESS NOTE - Physical Therapy [facility] [address] Name: Mitchel Harmon Location: [facility] B843/A Date: 04/10/2024 Time: 1:17 PM Mitchel Harmon is a/an 78 year old male. Patient Status: Inpatient Insurance: Payor: MERY LANCE Plan: Whitney LANCE PREFERRED ADVANTAGE RX DC-ID Product Type: *No Product type* Patient Seen: at bedside, nursing cleared patient for therapy Patient Identified By: Name, ID Band and Date Diagnosis: sepsis (04/10/241316) Status of treatment: Treatment completed (04/10/241316) Orders: PT evaluation and treatment (04/10/241316) Weight Bearing Status: Weight bearing as tolerated (04/10/241316) Precautions: Alarms;Safety;Falls;High flow oxygen (04/10/241316) Total Treatment Time--free text: (04/10/241316) Subjective: pt reports feeling better today than yesterday Pain: No complaints of pain P.T. Bed Mobility Supine-Sit: Supervision (04/10/241316) Sit-Supine: Minimal Assistance (for BLE) (04/10/241316) Transfers Sit-Stand: Supervision (04/10/241316) Stand-Sit: Supervision (04/10/241316) Ambulation: Distance ambulated (feet): 24, 16, 8 Assistive Device: Rolling walker Assist: Supervision Stair Training: Number of stairs: 2 Number of handrails: RW and single stair Level of Assistance: Contact Guard due to mild unsteadiness Balance Sit (Static): Fair (04/10/241316) Sit (Dynamic): Fair (04/10/241316) Stand (Static): Fair (04/10/241316) Stand (Dynamic): Fair (04/10/241316) Patient and or Family Goal(s): to get well and to return home Topic of Education: Safety with mobility and Goals/plan of care Method of Education: Verbal discussion and explanation provided to pt: verbalized understanding andor agreement of this information and demonstrated the exercise and or task Treatment Provided: Gait Training 25 minutes: gait training with rolling walker stair training Alarm Status Patient positioned in: Bed (04/10/241316) With: Bed alarm intact and functioning and call elise in reach (04/10/241316) Patient Education Review of Precautions: Safety (04/10/241316) Safety Awareness: Patient verbalizes insight of current deficits;Patient demonstrates carryover of insight during functional tasks;Patient can communicate basic needs (04/10/241316) Preferred learning method: Combination (04/10/241316) Barriers to learning: None (04/10/241316) Method of Education: Verbalized to patient;Patient demonstrated task (04/10/241316) Assessment: pt alert and agreeable to treatment. Pt supine in bed upon arrival. Pt seen for bed mobility, transfers, ambulation, and stair negotiation. Pt requires supervision for all mobility exceptCG for stairs. Pt requires increased rest breaks due to fatigue, weakness, and decreased activity tolerance. SpO2 at 100%. Please consider home with post-acute care services which may include home health or outpatient therapy. The level of care will be determined in collaboration with the patient, family/caregiver and care team members. Deficits requiring P.T. treatment needs: Safety;Mobility;Balance;Weakness;Endurance;Lower extremitystrength (04/10/241316) Plan: Continue with current treatment plan established on evaluation. AM PAC Score with Stairs: 18 * Ancillary Progress Note - Kian Ellis COTA - 04/10/2024 9:17 AM EST PROGRESS NOTE - Occupational Therapy [facility] [address] Name: Mitchel Harmon Location: [facility] B843/A Date: 04/10/2024 Time: 9:17 AM Mitchel Harmon is a 78 year old male. Patient Status: Inpatient Insurance: Payor: Whitney LANCE Plan: Whitney LANCE PREFERRED ADVANTAGE RX DC-ID Product Type: *No Product type* Patient Seen: at bedside, nursing cleared patient for therapy Patient Identified By: Name, ID Band and Date Diagnosis: septic shock (04/10/24916) Status of treatment: Treatment completed (04/10/24916) Orders: OT evaluation and treatment (04/10/24916) Weight Bearing Status: Weight bearing as tolerated (04/10/24916) Precautions: Alarms;Hale;High flow oxygen;Falls (04/10/24916) Total Treatment Time: 40 (04/10/24916) Subjective: agreeable Pain: No complaints of pain Observations Consciousness: Alert (04/10/24916) Orientation: Oriented times 4 (04/10/24916) Psychosocial: Patient can communicate basic needs;Patient can converse in a social setting (04/10/24916) Sitting posture: Forward head;Rounded shoulders (04/10/24916) Standing posture: Forward head;Rounded shoulders (04/10/24916) Safety awareness: The Patient verbalizes insight of current deficits.;The Patient demonstrates carryover of insight during functional tasks. (04/10/24916) Other Findings Endurance: Fair (04/10/24916) Light touch sensation: Intact (04/02/241126) Proprioception: Intact (04/02/241126) Coordination: Intact (04/02/241126) Tone: Normal tone (04/02/241126) Edema: No edema noted (04/02/241126) Current Functional Status: Activities of Daily Living: Self Care Able to provide self care: No (04/02/241126) Feeding: Not Tested (04/10/24916) Grooming: Supervision (Please comment) (wash face and hands) (04/10/24916) Dressing Upper Body: Supervision (Please comment) (gown) (04/10/24916) Lower Body: Dependent (adjust and pull up socks) (04/10/24916) Functional Ambulation Assistive Device: No device (04/10/24916) Distance in feet:: 3 (04/10/24916) Level of Assistance: Contact Guard (04/10/24916) Bed Mobility Supine-Sit: Supervision (Please comment) (04/10/24916) OT Transfers Sit-Stand: Supervision (Please comment) (04/10/24916) Stand-Sit: Supervision (Please comment) (04/10/24916) Bed-Chair: Supervision (Please comment) (04/10/24916) Balance Sit (Static): Fair (04/10/24916) Sit (Dynamic): Fair (04/10/24916) Stand (Static): Fair (04/10/24916) Stand (Dynamic): Fair (-) (04/10/24916) Patient Education Education Topic: Role of OT;Plan of care goals (04/10/24916) Review of Precautions: Safety;Fall (04/10/24916) Review of Exercises: Verbal Exercises Provided;Pt Demonstrated Exercise (04/10/24916) Teachback Test Complete: Yes (04/10/24916) Method of Education: Verbalized to patient;Demonstrated to patient (04/10/24916) Education Provided to: Patient (04/10/24916) Response to Education: Receptive and agreeable to education (04/10/24916) Barriers to learning: Medical status (04/10/24916) Preferred learning method: Combination (04/10/24916) Alarm Status Patient positioned in: Chair (04/10/24916) With: Pressure pad alarm intact and functioning and call elise in reach (04/10/24916) Treatment Provided: Self Fpc Management Trainin minutes Therapeutic Procedure: 17 minutes Upper Extremity exercise Demonstrate Exercises: LUE;RUE;Shoulder;Elbow;Wrist;Grasp;Flexion;Extension;Abduction;Adduction (2 set of 8 x3 exercises) (04/10/24916) Peformed in: Supine (04/10/24916) Deficits requiring O.T. treatment needs: ADL/self- care;Balance;Endurance;Functional mobility;Safety;Upper extremity strength (04/10/24916) Assessment: Pt supine in bed and alert. Pt on high flow O2 at time of visit. SpO2 maintained >90% throughout session. In supine, Patient performed BUE exercise per flow chart to promote strength and endurance needed for functional activities and ADLs. Rest periods provided as needed. Pt completed grooming by washing his face post set up. Bed mobility completed with head of bed elevated improving to SPV level. Pt sat edge of bed ~8 minutes unsupported sit to promote sitting balance needed forADLs. Lower body dressing assistance provided due to limited reach at this time. Pt transferred from the bed, ambulated 3' to the recliner no device, and transferred to the recliner at Contact Guard level for safety. Pt made comfortable in the recliner. Patient's daughter entered the room towards the end of the session to observe session. Please consider home with post-acute care services which may include home health or outpatient therapy. The level of care will be determined in collaboration with the patient, family/caregiver and care team members. Plan: Anticipated Frequency (on eval): (1-5 x week) (04/02/241126) Equipment Equipment used in Therapy: No Device (04/10/24916) AM-PAC Help From Another Person Eating Meals: A little (04/10/24916) Help From Another Person Taking Care of Personal Grooming: A little (04/10/24916) Help From Another Person To Put On/Take Off Upper Body Clothing: A little (04/10/24916) Help From Another Person To Put On/Take Off Lower Body Clothing: Total (04/10/24916) Help From Another Person Toileting: A little (04/10/24916) Help From Another Person Bathing: A little (04/10/24916) OT AM-PAC Score: 16 (04/10/24916) OT AM-PAC t-Scale Score: 35.96 (04/10/24916) JH HLM (Highest Level of Mobility) Goal: Level 5 standing (1 or more minutes) (04/10/24 0800) A portion of this AM-PAC assessment not scored based on functional assessment; rather clinical decision making utilized based on current findings and/or prior level of function. Please refer to future AM-PAC calculations of functional ability as they become available. * Care Plan - Phoebe Sanchez RN - 04/10/2024 4:10 AM EST Clinical Goal(s): Pt will maintain O2 sat above 90% (04/09/242036) Possible barriers to meeting goal(s)/advancing plan of care: patient's condition Stability of the patient: Moderately unstable - medium risk of patient condition declining or worsening Summary regarding today's goal(s): Met: O2 sat above 90% through the night, Recommendations: hourly rounding, ADL assisting * Ancillary Progress Note - Kenia Fischer LSW - 04/09/2024 12:22 PM EST CARE MANAGEMENT - ADULT TRANSITION NOTE [facility] [place] [address] Name: Mitchel Harmon Location: [facility] B843/A Date: 04/09/2024 Time: 12:23 PM Risk Stratification Risk Stratification Psycho Social / Medical Concerns Identified: None Identified (04/03/24 1143) Readmission Risk Score: 13.76 (04/09/24 1200) AM-PAC Score With Stairs : 18 (04/08/24 1400) Caregiver Information Emergency Contacts Name Relation Home Work Mobile Johann Downing (ABHINAV) Other - (no specific identity) [phone] Ebony Downing Adult Child [phone] Iraida Myrick Significant Other [phone] Other Contacts Name Relation Home Work Mobile Iker Yeager Adult Child [phone] Transition of Care Checklist Narrative: Per service, possible weekend DC with home IVABX. ALBERTO requested referral to [facility] for coverage. [facility] made aware of need. ALBERTO called [facility] [phone] and spoke Consuelo. Consuelo did provide they could support Saturday vs Saturday. CM to keep them updated. ALBERTO met with Pt and daughter Maryse at bedside. DC plan confirmed for home with services and family support. Daughter is asking for additional support in the home for caregivers and list provided. Pt and family confirmed if they receive education on IVABX they can support in the home. CM to keep family updated on plan. If O2 is required no preference for agency. Anticipated Transportation at Discharge: family Patient/Family Expectations: home with services Transition Planning Transition Planning Transition Plan/Considerations: Needs identified - Discharge planning services explained to patientfamily / caregiver - Choices offered (04/03/24 0498) Transition services explained and patient/family/caregiver agreeable: Home with Home Care (144) Additional Considerations: NA Care Management will continue to monitor and assist with discharge planning needs * Ancillary Progress Note - Alejandra Hernández RDN - 04/09/2024 10:30 AM EST CLINICAL NUTRITION ADULT RISK ASSESSMENT [address] [address] Name: Mitchel Harmon Location: [facility] B843/A Date: 04/09/2024 Time: 12:10 PM How patient was identified (select 2): date and Name Mitchel Harmon is a 78 year old male being assessed for clinical nutrition risk related to extended LOS Primary diagnosis: 78 year old male, with metastatic pancreatic cancer, was admitted on 04/02/2024 and presents with weakness. Other pertinent information: The patient and his daughter were present during the visit today. The patient reports having a reduced appetite prior to coming into the hospital. Since he has been admitted, he has been consuming between 10- 75% of his meals. The patient would like to receive boost supplements with each of his meals as well. Anthropometrics Measurements Admission weight (for dietitians): 70 kg Height: 167.6 cm (5' 5.98") (04/02/24 013) Weight: (bed zeroed) (04/09/24 0634) BMI: 25.03 (04/02/24 013) Usual Body Weight or EDW for Dialysis Patients: 69-74 kg Diet: Regular Previously followed diet: Regular Food Allergies/Intolerances: None. Oral Nutrition Supplement (ONS): Supplement Shake (1/2 cup provides 200 calories, 6 grams protein, 34 grams carbohydrate) TID Pertinent medications/vitamins/minerals/supplements: Novolog, Lantus, Prilosec, RISK FACTORS: Adult Energy Intake: Less than 75% of estimated energy requirement for greater than 7 days (moderate, acute illness). Interpretation of Weight Change: No recent/significant weight change Skin: Intact NUTRITION RISK CATEGORY: Nutrition Risk Category: Low/Moderate (0-1 factors) Clinical Nutrition Recommendations: Diet: Continue current nutrition plan NUTRITION INTERVENTION/PLAN: Orders: Oral nutrition supplement adjusted Boost (1 cup provides 240 calories, 10 grams protein, 37 grams carbohydrate)- added TID Supplement Shake (1/2 cup provides 200 calories, 6 grams protein, 34 grams carbohydrate) -discontinued TID Will follow and adjust nutritional plan as medical condition requires. Please contact for change(s)in patient condition requiring earlier intervention. Alejandra Hernández RDN, LDN Registered Dietitian [phone] Available via [employer] * Care Plan - Batool Alejandra RN - 04/09/2024 12:19 AM EST Clinical Goal(s): patient will sit OOB x 1 hour (04/08/24 0840) Possible barriers to meeting goal(s)/advancing plan of care: limited mobility Stability of the patient: Moderately stable - low risk of patient condition declining or worsening Summary regarding today's goal(s): Met: pt sat on his chair and ambulated in the room today Recommendations: continue with care plan and monitor patient on hourly rounding * Respiratory Progress Note - Khalida Cabral CRT - 04/08/2024 2:42 PM EST PATIENT DRIVEN PROTOCOL - Respiratory Care Services [address] [address] Name: Mitchel Harmon Location: [facility] [place] A538/A Date: 04/02/2024 Time: 2:46 AM Patient Driven Protocol Summary: Re evaluation performed. This Treatment Plan and medications will be reviewed by the Primary Care Team for any contraindications. Respiratory Care Treatment Plan Aerosol Therapy Treatment:: Hand Held Nebulizer Tx PRN with Albuterol Sulfate: Unit dose 0.083%. to reduce work of breathing and improve pulmonary gas exchange. . Secretion Management Treatment: Flutter TherapyPRN to prevent or treat alveolar consolidation and atelectasis. Deep breath Cough - PRN PRN Incentive Spirometry . The patient will be re-evaluated: No re-evaluation needed. Indications for treatment met. The Triage Level is: (Assessment Score = 0 - 5) Level 5. Triage Level Definitions: Level 1 Severe Respiratory/Airway Compromise Level 2 Moderate Respiratory/Airway Compromise or high risk for pulmonary complications Level 3 Mild Respiratory/Airway Compromise or moderate risk for pulmonary complications Level 4 Episodic Respiratory/Airway Compromise or low risk for pulmonary complications Level 5 No Respiratory/Airway Compromise Triage 1 Triage 2 Triage 3 Triage 4 Triage 5 greater than 20 16 - 20 11 - 15 6 - 10 0 - 5 Medical Record Assessment Clinical Findings Pulmonary Status: 0 - No Smoking or quit greater than 10 years ago Surgical Status: 0 - No Surgical History Chest X-Ray: 2 - Infiltrates and/or Atelectasis Assessment Score: 2 Patient Assessment Clinical Findings Respiratory Pattern: 0 - RR 12 - 20; Patient only gets breathless with strenuous exercise. Breath Sounds: 0 - Clear to auscultation Cough Effectiveness: 0 - Strong non-productive Sputum Production: 0 - No sputum production Level of Activity: 1 - Ambulatory with assist O2 needed to keep SpO2 greater than or equal to 92%: 1 - Oxygen 1-3 LPM or FiO2 less than 35% Assessment Score: 2 Total Assessment Score: 4 Breath Sounds: Inspiratory and expiratory clear and diminished bilaterally.. Cough and Sputum: No cough was present.. CXR: .pending Vital Signs: Resp: 20 (04/08/24 1032) Pulse: 95 (04/08/24 1032) Temp: 36.3 C (97.3 F) (04/08/24 1032) BP: 133/76 (04/08/24 1032) SpO2: 100 % (04/08/24 1032) Primary Service: Critical Care Red. Admitting Diagnosis: Acute cholecystitis [K81.0] Septic shock (HCC) [A41.9, R65.21] Pulmonary Diagnosis: former smoker. Prescriptions/Home Medications/Durable Medical Equipment: albuterol PRN per pt. * Ancillary Progress Note - Liv Schroeder PTA - 04/08/2024 2:00 PM EST PROGRESS NOTE - Physical Therapy [address] [address] Name: Mitchel Harmon Location: [facility] [place] B843/A Date: 04/08/2024 Time: 2:00 PM Mitchel Harmon is a/an 78 year old male. Patient Status: Inpatient Insurance: Payor: [facility] NATAL[facility] Plan: [facility] NATALIO PREFERRED ADVANTAGE RX DC-ID Product Type: *No Product type* Patient Seen: at bedside, nursing cleared patient for therapy Patient Identified By: Name, ID Band and Date Diagnosis: sepsis (04/08/241399) Status of treatment: Treatment completed (04/08/241399) Orders: PT evaluation and treatment (04/08/241399) Weight Bearing Status: Weight bearing as tolerated (04/08/241399) Precautions: Alarms;Safety;Falls;Oxygen;Hale (04/08/241399) Total Treatment Time--free text: 38 (04/08/241399) Subjective: pt reports feeling okay, but tired Pain: No complaints of pain Transfers Sit-Stand: (Supervision from recliner; Minimal Assistance from very low toilet) (04/08/241399) Stand-Sit: (Supervision from recliner; Minimal Assistance from very low toilet) (04/08/241399) Ambulation: Distance ambulated (feet): 90 and 20 x2 Assistive Device: Rolling walker Assist: Supervision Balance Sit (Static): Fair (04/08/241399) Sit (Dynamic): Fair (04/08/241399) Stand (Static): Fair (04/08/241399) Stand (Dynamic): Fair (04/08/241399) Patient and or Family Goal(s): to get well and to return home Topic of Education: Safety with mobility and Goals/plan of care Extremity Exercise Sitting: Hip;Knee;Ankle (as tolerated; mostly 3 sets of 10, however pt fatigues quickly/ easily) (04/08/241399) Hip : Bilateral LE;Flexion;Adduction;Abduction (04/08/241399) Knee : Bilateral LE;Flexion;Extension (04/08/241399) Ankle: Bilateral LE;Plantar flexion;Dorsiflexion (04/08/241399) Method of Education: Verbal discussion and explanation provided to pt: verbalized understanding andor agreement of this information and demonstrated the exercise and or task Treatment Provided: Gait Training 22 minutes: gait training with rolling walker Therapeutic Exercises: 16 minutes Alarm Status Patient positioned in: Chair (04/08/24 1400) With: Call elise in reach (alarm not set upon arrival) (04/08/241399) Patient Education Review of Precautions: Safety (04/08/241399) Safety Awareness: Patient verbalizes insight of current deficits;Patient demonstrates carryover of insight during functional tasks;Patient can communicate basic needs (04/08/241399) Preferred learning method: Combination (04/08/241399) Barriers to learning: Medical Status (04/08/241399) Method of Education: Verbalized to patient;Patient demonstrated task (04/08/241399) Assessment: pt alert and agreeable to treatment. Pt seated in recliner upon arrival. Pt seen for transfers, ambulation, and therapeutic exercises. Pt fatigue quickly/ easily, requiring increased restbreaks. Pt's activity tolerance progressively declined. Pt able to complete exercises with AROM with increased time and rest breaks. Please consider home with post-acute care services which may include home health or outpatient therapy. The level of care will be determined in collaboration with thepatient, family/caregiver and care team members. Deficits requiring P.T. treatment needs: Safety;Mobility;Balance;Weakness;Endurance;Lower extremitystrength (04/08/24 1400) Equipment needs: Rolling walker (04/06/24 0517) Plan: Continue with current treatment plan established on evaluation. AM PAC Score with Stairs: 18 A portion of this AM-PAC assessment not scored based on functional assessment; rather clinical decision making utilized based on current findings and/or prior level of function. Please refer to future AM-PAC calculations of functional ability as they become available. * Care Plan - Lele Baeza RN - 04/07/2024 10:47 PM EST Clinical Goal(s): Patient will report s/s of a fever to nursing staff (04/07/24 0700) Possible barriers to meeting goal(s)/advancing plan of care: none Stability of the patient: Moderately stable - low risk of patient condition declining or worsening Summary regarding today's goal(s): Met: patient reported any signs of fever he had to staff Recommendations: continue plan of care * Ancillary Progress Note - Kenia Fischer LSW - 04/07/2024 8:53 AM EST CARE MANAGEMENT - ADULT TRANSITION NOTE [facility] [place] [address] Name: Mitchel Harmon Location: [facility] [place] B843/A Date: 04/07/2024 Time: 8:54 AM Risk Stratification Risk Stratification Psycho Social / Medical Concerns Identified: None Identified (04/03/24 1143) Readmission Risk Score: 12.34 (04/07/24 0801) AM-PAC Score With Stairs : 17 (04/06/24 1437) Caregiver Information Emergency Contacts Name Relation Home Work Mobile Johann Downing (ABHINAV) Other - (no specific identity) [phone] Ebony Downing Adult Child [phone] Iraida Myrick Significant Other [phone] Other Contacts Name Relation Home Work Mobile Iker Yeager Adult Child [phone] Transition of Care Checklist Narrative: Per service, Pt will need IVABX until 04/16 once medically ready for DC. 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 CM will follow up with [facility] to see if they can support home IVABX. CM will also follow up with Infusion agency for cost once orders placed. 1111- SW called [facility] [phone] and spoke with Dyana. Dyana confirmed they can support home IVABX when ready. Dyana requested for referral to be faxed to [phone]. ALBERTO requested for [employer] tofax documents. CM to keep [facility] updated on DC. Anticipated Transportation at Discharge: family Patient/Family Expectations: home with services Transition Planning Transition Planning Transition Plan/Considerations: Needs identified - Discharge planning services explained to patientfamily / caregiver - Choices offered (04/03/24 1144) Transition services explained and patient/family/caregiver agreeable: Home with Home Care (144) Additional Considerations: NA Care Management will continue to monitor and assist with discharge planning needs * Care Plan - Batool Alejandra RN - 04/07/2024 1:05 AM EST Clinical Goal(s): Pt will report worsening symptoms to the nurse (04/06/24 0700) Possible barriers to meeting goal(s)/advancing plan of care: disease process Stability of the patient: Moderately stable - low risk of patient condition declining or worsening Summary regarding today's goal(s): Met: pt did not report worsening symptoms to the nurse Recommendations: continue with care plan and monitor patient on hourly rounding * Communication - Jesse Stinson MD - 04/06/2024 4:12 PM EST Zosyn discontinued and started patient on Unasyn 3 g q.6 for hourly as per ID recommendation. Date for IV antibiotics 04/16/2024. IV therapy team consulted for PICC line placement. * Communication - Naveed Peace MD - 04/06/2024 2:58 PM EST SIGNOFF IMPRESSION AND RECOMMENDATIONS: Specialty Impression Stage IV pancreatic cancer Bacteremia, ascending cholangitis PE on lovenox Recommended medication(s) at discharge Per primary team Recommended discharge testing (lab, imaging, etc.) N/A Other recommended care at discharge N/A Follow-up in Specialty Clinic Scheduled for 04/28/2024 We will sign off at this time. Please call with any questions or should the patient's clinical course change. * Ancillary Progress Note - Liv Bob PTA - 04/06/2024 2:37 PM EST PROGRESS NOTE - Physical Therapy [facility] [place] [place] [place] [address] Name: Mitchel Harmon Location: [facility] [place] B843/A Date: 04/06/2024 Time: 2:37 PM Mitchel Harmon is a/an 78 year old male. Patient Status: Inpatient Insurance: Payor: [employer] Plan: [employer] PREFERRED ADVANTAGE RX DC-ID Product Type: *No Product type* Patient Seen: at bedside, nursing cleared patient for therapy Patient Identified By: Name, ID Band and Date Diagnosis: sepsis (04/06/241436) Status of treatment: Treatment completed (04/06/241436) Orders: PT evaluation and treatment (04/06/241436) Weight Bearing Status: Weight bearing as tolerated (04/06/241436) Precautions: Alarms;Safety;Falls;Oxygen;Hale (04/06/241436) Total Treatment Time--free text: 36 (04/06/241436) Subjective: patient was agreeable Pain: No complaints of pain P.T. Bed Mobility Sit-Supine: Minimal Assistance (assistance for legs) (04/06/241436) Transfers Sit-Stand: Supervision (from chair, minimal assistance from toilet) (04/06/241436) Stand-Sit: Supervision (from chair, minimal assistance from toilet) (04/06/241436) Ambulation: Distance ambulated (feet): 30 + 15 + 120 Assistive Device: Rolling walker Assist: Supervision Balance Sit (Static): Fair (04/06/241436) Sit (Dynamic): Fair (04/06/241436) Stand (Static): Fair (04/06/241436) Stand (Dynamic): Fair (04/06/241436) Patient and or Family Goal(s): to get well Topic of Education: Safety with mobility Method of Education: Verbal discussion and explanation provided to patient: verbalized understanding and or agreement of this information and demonstrated the exercise and or task Treatment Provided: Therapeutic Activities 21 minutes: bed mobility training transfer training toilet transfer training Gait Training 15 minutes: gait training with rolling walker Alarm Status Patient positioned in: Bed (04/06/241436) With: Bed alarm intact and functioning and call elise in reach (04/06/241436) Patient Education Review of Precautions: Safety (04/06/241436) Safety Awareness: Patient verbalizes insight of current deficits;Patient demonstrates carryover of insight during functional tasks;Patient can communicate basic needs (04/06/241436) Preferred learning method: Combination (04/06/241436) Barriers to learning: Medical Status (04/06/241436) Method of Education: Verbalized to patient;Patient demonstrated task (04/06/241436) Assessment: Patient was found reclined in chair upon arrival and agreeable to work with physical therapy services. Patient completed sit to stand transfers from the bed with supervision and rolling walker and from the toilet with a rolling walker and minimal assistance due to low seat height. Patient ambulated 30, 15, and 120 feet with a rolling walker and supervision. Patient completed bed mobility with minimal assistance to get lower extremities into the bed. Noted patient to have double vision while ambulating however patient and family reported that this has happened previously and with abrief standing rest break symptoms resolved. Ended session with patient supine in bed with pillows for comfort, bed alarm activated, and call elise within reach. Please consider post- acute care services which may include home health, retirement, outpatient therapy or inpatient rehabilitation. The level of care will be determined in collaboration with patient, family/caregiver and care team members. Deficits requiring P.T. treatment needs: Safety;Mobility;Balance;Weakness;Endurance;Lower extremitystrength (04/06/241436) Equipment needs: Rolling walker (04/06/241436) Plan: Continue with current treatment plan established on evaluation. AM PAC Score with Stairs: 17 A portion of this AM-PAC assessment not scored based on functional assessment; rather clinical decision making utilized based on current findings and/or prior level of function. Please refer to future AM-PAC calculations of functional ability as they become available. * Ancillary Progress Note - Ash Alex RVT - 04/06/2024 2:16 PM EST PROCEDURE - Vascular Lab [address] [address] Name: Mitchel Harmon Location: [address] Date: 04/06/2024 Time: 2:17 PM FINAL PHYSICIAN REPORT TO FOLLOW. PROCEDURE: Right side: Lower extremity venous duplex negative: no evidence of deep vein thrombosis Left side: Lower extremity venous duplex negative: no evidence of deep vein thrombosis TECH NAME: Ash Alex RVT * Diagnostic Clarification - Jesse Stinson MD - 04/06/2024 9:06 AM EST The patient has been diagnosed with acute combined systolic diastolic CHF. * Care Plan - Carrie Guzman RN - 04/05/2024 10:46 AM EST Clinical Goal(s): Patient will remain afebrile (04/04/24 2300) Possible barriers to meeting goal(s)/advancing plan of care: pt condition Stability of the patient: Moderately stable - low risk of patient condition declining or worsening Summary regarding today's goal(s): Met: remained afebrile Recommendations: continue to monitor * Care Plan - Calderon Perez RN - 04/05/2024 4:42 AM EST Clinical Goal(s): Patient will remain afebrile (04/04/24 2300) Possible barriers to meeting goal(s)/advancing plan of care: Patient condition Stability of the patient: Moderately stable - low risk of patient condition declining or worsening Summary regarding today's goal(s): Met: No fever Had an episode of chills but temp was within normal range. Recommendations: Continue plan of care * Communication - Ann Jay PA-C - 04/05/2024 12:54 AM EST Paged by RN that patient having chills and short of breath. Apical pulse 150 T 97.2F RR 24 SpO2 100% on 2L NC manual BP. Upon evaluation patient with abdominal breathing. States he is having a hard time breathing. Denies chest pain. EKG with sinus tach and new ST depressions. STAT labs and CXR ordered. Patient has 2-3+ BLE pitting edema. Ordered 20 mg IV lasix for concern of pulmonary edema. Placed on telemetry. RT paged and patient placed on HFNC for increased work of breathing. Patient with mild epigastric pain to deep palpation. After administration of lasix patient manual bp 82/56. Patient evaluated for a second time and is much more comfortably on HFNC and states he feels better. Denies lightheadedness/dizziness. A&O x4. Albumin ivp x 1 given. CXR with known RUL opacity, no majorchanges. Due to increased work of breathing, sinus tachycardia, and patient hypercoagulability, high concern for PE. Has contrast allergy therefore IV contrast prep ordered and will trial NRB to go down to CT. Will continue to monitor Lab results within last 7 days (see chart for full results) Units 04/05/24 0024 04/04/24 0730 04/03/24 0734 HGB g/dL 11.0* 10.4* 10.1* HCT % 34.2* 31.9* 31.5* WBC K/uL 12.01* 16.84* 23.71* PLT K/uL 218 289 357 Lab results within last 7 days (see chart for full results) Units 04/05/24 0024 04/04/24 0730 04/03/24 0734 SODIUM mmol/L 129* 129* 131* POTASSIUM mmol/L 3.5 3.8 3.6 CHLORIDE mmol/L 97* 99 98 CO2 mmol/L 18* 22 21* BUN mg/dL 28* 25* 25* CREATININE mg/dL 1.2 0.9 0.9 Lab results within last 7 days (see chart for full results) Units 04/05/24 0024 04/04/24 0730 04/03/24 0734 Protein g/dL 5.8* 5.3* 5.5* Bilirubin, Total mg/dL 1.3* 1.1 1.3* Alkaline Phosphatase U/L 854* 577* 641* AST U/L 79* 60* 109* ALT U/L 66* 53* 62* Latest Reference Range & Units 04/05/24 00:24 Lactate 0.4 - 2.0 mmol/L 4.7 (HH) * Care Plan - Yanci Mayfield RN - 04/04/2024 10:55 PM EST Clinical Goal(s): pt will report any sympts of fever (04/04/24 0715) Possible barriers to meeting goal(s)/advancing plan of care: Pt condition. Stability of the patient: Moderately stable - low risk of patient condition declining or worsening Summary regarding today's goal(s): Met: Pt able to report symptoms appropriately. Recommendations: Continue plan of care. * Care Plan - Olivia Baum RN - 04/03/2024 11:53 PM EST Clinical Goal(s): Patient will remain free from falls or injury. (04/03/24 0800) Possible barriers to meeting goal(s)/advancing plan of care: impaired mobility. Stability of the patient: Moderately stable - low risk of patient condition declining or worsening Summary regarding today's goal(s): Met: Patient remained free from fall and injury. Recommendations: Continue implementing fall precautions. Assist patient with episodes of ambulation. Ensure bed alarms are on and call elise within reach. * Diagnostic Clarification - Jesse Stinson MD - 04/03/2024 4:14 PM EST The patient has been diagnosed with anemia of chronic disease. Sepsis IS associated with the biliary stent. * Diagnostic Clarification - Jesse Stinson MD - 04/03/2024 4:13 PM EST The patient has been diagnosed with demand Ischemia without an acute DC. * Communication - Scott Street DO - 04/03/2024 2:54 PM EST Images from the original note were not included. I attempted to see the patient but the patient was not available. Scott Street DO Infectious Diseases OSH micro: [place] [id number] / Director: Fabby Hwang M.D. Clinical Laboratory Report Name: JORGE ADesireeMITCHEL Acct: [id number] Status: DIS IN : 1945 [facility] [place] Date: 04/01/24 Age: 78 Sex: M Dis Date: 04/02/24 Loc: ICU Surgical [address] [place] [address]/Bed: [facility] Spec: [id number] Collected: 04/01/24-1222 Received: 04/01/24-[address]: Matt Lim DO Source: Blood OV Order: Ordered: Blood Culture Procedure Result Verified Site Blood Culture Aerobic Preliminary 04/03/24-1214 Organism 1 Gram negative bacilli Sens Sensitivities Dependent on Further Identification Blood Culture PCR Panel If viewing in EMR, results available under LAB Serology tab. Gram stain results sent via [employer] to [facility] [place] On 04/03/24 at 0644 by Sabi Ellis. Confirmed message was read by recipient. Blood Culture Anaerobic Preliminary 04/02/24-0229 <No reportable results for this procedure> Name: MITCHEL HARMON : 1945 PAGE 1 Printed: 04/03/24 8998 END OF REPORT [address] [address] / Director: Fabby Hwang M.D. Clinical Laboratory Report Name: MITCHEL HARMON Acct: [id number] Status: DIS IN : 1945 [facility] [place] Date: 04/01/24 Age: 78 Sex: M Dis Date: 04/02/24 Loc: ICU Surgical [address] [place] [address]/Bed: E107-1 Spec: [id number] Collected: 04/01/24 Received: 04/01/[address]: Matt Lim DO Source: Blood OV Order: Ordered: Blood Culture Comments: Blood culture drawn venously from Right Arm. Procedure Result Verified Site Blood Culture Aerobic Preliminary 04/03/24-1400 No growth in Aerobic bottle after 48 hours. Blood Culture Anaerobic Preliminary 04/03/24-1320 Organism 1 Streptococcus constellatus Sens No Sensitivities to Follow Blood Culture PCR Panel If viewing in EMR, results available under LAB Serology tab. Critical positive blood culture results sent via [employer] to [facility] on 04/02/24 at 1312 by Jodee Shin. Confirmed message was read by recipient. Name: MITCHEL HARMON : 1945 PAGE 1 Printed: 04/03/24 8931 END OF REPORT * Ancillary Progress Note - Kenia Fischer LSW - 04/03/2024 11:44 AM EST CARE MANAGEMENT - ADULT INITIAL SCREENING [facility] [place] [address] Name: Mitchel Harmon Location: [facility] [place] B843/A Date: 04/03/2024 Time: 11:44 AM Discussed patient with the interdisciplinary care team. This Brass Reclaimer performed a chart review and met with Pt and family at bedside to complete admission screen and assessed needs for transitionplanning. The personal care attendant role and services were explained and emotional support was provided. Chief Complaint: No chief complaint on file. Prior Living Arrangements What was your living situation prior to admission/observation?: With Friend (04/02/24 0252) Living Quarters: House (04/03/24 1143) Number of steps to enter living quarters:: 1 (04/03/24 1143) Do you have serious difficulty walking or climbing stairs? (5 years old or older): No (04/02/24129) History of falling: No (04/03/24799) Prior Level of Functioning Describe the patient's ability prior to admission/observation to perform ADLs: Performs independently (04/02/24129) Requires assistance with: Dressing (04/02/24251) Describe the patient's mobility status prior to admission: Patient ambulates independently (04/02/24251) Patient uses assistive device: No (04/02/24251) Caregiver Information Emergency Contacts Name Relation Home Work Mobile Johann Downing Other - (no specific identity) [phone] Other Contacts Name Relation Home Work EBONY Liu Adult Child [phone] Iker Yeager Adult Child [phone] Risk Stratification/Psychosocial/Care Gaps Risk Stratification Psycho Social / Medical Concerns Identified: None Identified (04/03/241142) Readmission Risk Score: 18.72 (04/03/24 08) AM-PAC Score With Stairs : 18 (04/03/24 08) Prior to Admission Services Services Prior to Admission NURSING PROGRAM MANAGER Services (Services received within the last 30 days with exception, Psych within last two years): Home Health;Durable Medical Equipment (04/03/241142) NURSING PROGRAM MANAGER Durable Medical Equipment (DME) in home: Walker Rolling (04/03/241142) NURSING PROGRAM MANAGER Transportation (Services received within the last 30 days): Family/Friends Personal Vehicle (04/03/241142) Outpatient Brass Reclaimer: Patient Care Team: Precious Hay RN as Cold Reduction Roller (Registered Nurse) Patient/Family Expectations: home with family support and [facility] through [facility] For further screening information, please refer to the Care Management flow document. * Ancillary Progress Note - Cem Lopes RN - 04/03/2024 11:40 AM EST HOME CARE REFERRAL FORM CARE MANAGEMENT [facility] [address] Referred By: SERGEI Arias Admission Date: 04/02/2024 Discharge Date: 04/17/24 Discharge Time: Morning Start Date: Same day of discharge 04/17/24 Agency Referred To: [facility] [phone] PATIENT INFORMATION: Name: Mitchel Harmon [address]: [address] [place] [address] : 1945 Phone: There is no home phone number on file. SSN: [id number] County: [place] Emergency Contacts: Extended Emergency Contact Information Primary Emergency Contact: Johann Salina Mobile Relation: Other - (no specific identity) Preferred language: [place]ese Coverstitch Binder needed? No Secondary Emergency Contact: EBONY DOWNING Address: [address] [place] [address] Mobile Relation: Adult Child MEDICAL INFORMATION: Principal Diagnosis: No Principal Problem: There is no principal problem currently on the Problem List. Please update the Problem List and refresh. Diet: As per discharge instructions. Allergies: Iodinated contrast media, Levofloxacin, and Lisinopril Isolation Type: Activity Restrictions: As ordered Isolation For: none HOME CARE ORDERS: (Discipline and Frequency): SN: Overall health assessment and vital signs Medication management and teaching Disease management and teaching Home safety evaluation PT/OT evaluation and treatment Medications Dose, Frequency, & Route: As ordered Ordering Physician and Contact Information: Dr. Ritu Gongora Comments: NA PCP: PCP: PEDRO [place] [address] [phone] D/C Physician: Jesse Stinson MD Insurance: See attached facesheet. * Communication - Vijay Mckinley MD - 04/02/2024 5:12 PM EST Brief GI communication: S/p ERCP: Prior biliary sphincterotomy appeared open. -One visible Jannie octreotide stent from biliary tree was seen in the major papilla. -a single localized biliary stricture was found in the lower 3rd of the main bile duct. -One stent was removed from the biliary tree. -the biliary tree was swept and pus and sludge were found. -One covered metal stent was placed into the common bile duct. Recommendation: Reviewed and cholangitis with obstructive plastic biliary stent. - clear liquid diet today. Can advance further as tolerated tomorrow. - Antibiotics per primary. - Monitor LFTs. - Repeat ERCP for stent exchange pending [facility] discussion. Stent can remain for 6 months before exchanges needed. Vijay Mckinley MD PGY5 Gastroenterology * Respiratory Progress Note - Lauri King, PRACTICAL NURSING TEACHER - 04/02/2024 2:46 AM EST PATIENT DRIVEN PROTOCOL - Respiratory Care Services [facility] [address] Name: Mitchel Harmon Location: [facility] A538/A Date: 04/02/2024 Time: 2:46 AM Patient Driven Protocol Summary: Initial evaluation performed. This Treatment Plan and medications will be reviewed by the Primary Care Team for any contraindications. Respiratory Care Treatment Plan Aerosol Therapy Treatment:: Hand Held Nebulizer Tx PRN with Albuterol Sulfate: Unit dose 0.083%. to reduce work of breathing and improve pulmonary gas exchange. . Secretion Management Treatment: Flutter TherapyPRN to prevent or treat alveolar consolidation and atelectasis. Deep breath Cough - PRN . The patient will be re-evaluated: No re-evaluation needed. Indications for treatment met. The Triage Level is: (Assessment Score = 0 - 5) Level 5. Triage Level Definitions: Level 1 Severe Respiratory/Airway Compromise Level 2 Moderate Respiratory/Airway Compromise or high risk for pulmonary complications Level 3 Mild Respiratory/Airway Compromise or moderate risk for pulmonary complications Level 4 Episodic Respiratory/Airway Compromise or low risk for pulmonary complications Level 5 No Respiratory/Airway Compromise Triage 1 Triage 2 Triage 3 Triage 4 Triage 5 greater than 20 16 - 20 11 - 15 6 - 10 0 - 5 Medical Record Assessment Clinical Findings Pulmonary Status: 0 - No Smoking or quit greater than 10 years ago Surgical Status: 0 - No Surgical History Chest X-Ray: 2 - Infiltrates and/or Atelectasis Assessment Score: 2 Patient Assessment Clinical Findings Respiratory Pattern: 0 - RR 12 - 20; Patient only gets breathless with strenuous exercise. Breath Sounds: 0 - Clear to auscultation Cough Effectiveness: 0 - Strong non-productive Sputum Production: 0 - No sputum production Level of Activity: 1 - Ambulatory with assist O2 needed to keep SpO2 greater than or equal to 92%: 1 - Oxygen 1-3 LPM or FiO2 less than 35% Assessment Score: 2 Total Assessment Score: 4 Breath Sounds: Inspiratory and expiratory clear and diminished bilaterally.. Cough and Sputum: No cough was present.. CXR: .EXAM XR CHEST 2 VIEWS - 04/01/2024 10:19 am HISTORY "sob" TECHNIQUE Frontal and lateral views of the chest were obtained. COMPARISON 03/03/2019 FINDINGS There is a right central venous port extending into the SVC. There is an infiltrate in the right upper lobe, consistent with pneumonia. No pleural effusion or pneumothorax. Normal heart size. Median sternotomy wires and mediastinal clips. IMPRESSION IMPRESSION Right upper lobe pneumonia. Vital Signs: Resp: 23 (04/02/24199) Pulse: 90 (04/02/24199) Temp: 36.6 C (97.9 F) (04/02/24 0130) BP: 114/70 (04/02/24199) SpO2: 99 % (04/02/24199) Primary Service: Critical Care Red. Admitting Diagnosis: Acute cholecystitis [K81.0] Septic shock (HCC) [A41.9, R65.21] Pulmonary Diagnosis: former smoker. Prescriptions/Home Medications/Durable Medical Equipment: albuterol PRN per pt. documented in this encounter Plan of Treatment Upcoming Encounters Date Type Department Care Team (Late st Contact Info) Description 04/21/2024 10:40 AM EST Office Visit [facility] [address] [place] [address] Pedro Luis Matute, DO [address] [place] [address] 04/28/2024 9:30 AM EST Office Visit Hematology/Oncology [facility] [address] [place] [address] Marimar Del Castillo MD [address] [place] [address] 07/08/2024 2:00 PM EDT Office Visit Infectious Disease [facility] [address] [facility] [place] [address], DO [address] [place] [address] Scheduled Orders Name Type Priority Associated Diagnoses Orde r Schedule CULTURE, RESPIRATORY, LOWER, AEROBIC Lab Routine One Time for 1 Occurrences starting 04/02/2024 until 04/02/2024 GLUCOSE METER, POINT OF CARE (COMMUNICATION ORDER) Point of Care Testing Routine As Needed until discontinued starting 04/02/2024 CULTURE, RESPIRATORY, LOWER, AEROBIC Lab Routine One Time for 1 Occurrences starting 04/08/2024 until 04/08/2024 BASIC METABOLIC PANEL Lab Routine Sepsis due to Streptococcus species without acute organ dysfunction (HCC) Acute hypoxic respiratory failure (HCC) Expected: 04/20/2024 (Approximate), Expires: 04/17/2025 MAGNESIUM Lab Routine Sepsis due to Streptococcus species without acute organ dysfunction (HCC) Acute hypoxic respiratory failure (HCC) Expected: 04/20/2024 (Approximate), Expires: 04/17/2025 Scheduled Procedures Name Priority Associated Diagnoses Date/Ti me ENDOSCOPIC RETROGRADE CHOLANGIOPANCREATOGRAPHY (ERCP) DIAGNOSTIC Recall Cholangitis Scheduled Referrals Name Type Priority Associated Diagnoses Orde r Schedule CARDIOLOGY REFERRAL OP Referral Within 10 days (routine) Edema, unspecified Acute on chronic congestive heart failure, unspecified heart failure type (HCC) Ordered: 04/14/2024 Health Maintenance Due Date Last Done Comments [...] this encounter Medical Devices Implanted Type Area Ballet Soloist Device Identifier Shelf Expiration Date Model / Serial / Lot Stent Bili Duodenal [id number] - [id number] Implanted:Qty : 1 on 01/16/2024 by Jose E Bai MD at ENDOSCOPY [facility] N/A: Stomach [employer] 12/02/2025 [id number] / / [id number] Stent Viabil Biliary [id number] - [id number] Implanted:Qty : 1 on 04/02/2024 by Mars Anna DO at ENDOSCOPY [facility] Outright [id number] 01/15/2027 [id number] / [id number] / [id number] documented as of this encounter Procedures Procedure Name Priority Date/Time Associated Diagnosis Comments BASIC METABOLIC PANEL Routine 04/17/2024 8:30 AM EST CBC Routine 04/17/2024 8:30 AM EST NOCTURNAL OXIMETRY (INPATIENT) Routine 04/17/2024 7:26 AM EST GLUCOSE METER, POINT OF CARE [facility] 04/17/2024 6:20 AM EST GLUCOSE METER, POINT OF CARE [facility] 04/16/2024 10:13 PM EST GLUCOSE METER, POINT OF CARE [facility] 04/16/2024 4:08 PM EST GLUCOSE METER, POINT OF CARE [facility] 04/16/2024 11:03 AM EST BASIC METABOLIC PANEL Routine 04/16/2024 6:55 AM EST CBC Routine 04/16/2024 6:55 AM EST GLUCOSE METER, POINT OF CARE [facility] 04/16/2024 6:17 AM EST GLUCOSE METER, POINT OF CARE [facility] 04/15/2024 9:01 PM EST GLUCOSE METER, POINT OF CARE [facility] 04/15/2024 4:05 PM EST GLUCOSE METER, POINT OF CARE [facility] 04/15/2024 11:03 AM EST GLUCOSE METER, POINT OF CARE [facility] 04/15/2024 6:13 AM EST GLUCOSE METER, POINT OF CARE [facility] 04/14/2024 9:01 PM EST GLUCOSE METER, POINT OF CARE [facility] 04/14/2024 4:11 PM EST GLUCOSE METER, POINT OF CARE [facility] 04/14/2024 11:37 AM EST GLUCOSE METER, POINT OF CARE [facility] 04/14/2024 8:39 AM EST GLUCOSE METER, POINT OF CARE [facility] 04/14/2024 7:32 AM EST BASIC METABOLIC PANEL STAT 04/14/2024 5:50 AM EST GLUCOSE METER, POINT OF CARE [facility] 04/13/2024 9:02 PM EST GLUCOSE METER, POINT OF CARE [facility] 04/13/2024 4:13 PM EST GLUCOSE METER, POINT OF CARE [facility] 04/13/2024 11:20 AM EST NOCTURNAL OXIMETRY (INPATIENT) Routine 04/13/2024 7:42 AM EST GLUCOSE METER, POINT OF CARE [facility] 04/13/2024 6:19 AM EST HEPATIC FUNCTION PANEL Routine 04/13/2024 3:45 AM EST BASIC METABOLIC PANEL Routine 04/13/2024 3:45 AM EST CBC Routine 04/13/2024 3:45 AM EST MAGNESIUM Routine 04/13/2024 3:45 AM EST GLUCOSE METER, POINT OF CARE [facility] 04/12/2024 9:27 PM EST BASIC METABOLIC PANEL Routine 04/12/2024 7:43 PM EST GLUCOSE METER, POINT OF CARE [facility] 04/12/2024 4:40 PM EST GLUCOSE METER, POINT OF CARE [facility] 04/12/2024 11:20 AM EST GLUCOSE METER, POINT OF CARE [facility] 04/12/2024 6:19 AM EST HEPATIC FUNCTION PANEL Routine 04/12/2024 5:24 AM EST BASIC METABOLIC PANEL Routine 04/12/2024 5:24 AM EST CBC Routine 04/12/2024 5:24 AM EST MAGNESIUM Routine 04/12/2024 5:24 AM EST HC ECG TRACING ONLY Routine 04/12/2024 1 2:39 AM EST First degree atrioventricular block GLUCOSE METER, POINT OF CARE [facility] 04/11/2024 9:15 PM EST BASIC METABOLIC PANEL Routine 04/11/2024 8:55 PM EST MAGNESIUM Add-on 04/11/2024 8:55 PM EST GLUCOSE METER, POINT OF CARE [facility] 04/11/2024 4:11 PM EST GLUCOSE METER, POINT OF CARE [facility] 04/11/2024 11:26 AM EST GLUCOSE METER, POINT OF CARE [facility] 04/11/2024 6:36 AM EST HEPATIC FUNCTION PANEL Routine 04/11/2024 3:35 AM EST BASIC METABOLIC PANEL Routine 04/11/2024 3:35 AM EST CBC Routine 04/11/2024 3:35 AM EST MAGNESIUM Routine 04/11/2024 3:35 AM EST GLUCOSE METER, POINT OF CARE [facility] 04/10/2024 9:07 PM EST BASIC METABOLIC PANEL Routine 04/10/2024 8:29 PM EST MAGNESIUM Routine 04/10/2024 8:29 PM EST GLUCOSE METER, POINT OF CARE [facility] 04/10/2024 4:14 PM EST GLUCOSE METER, POINT OF CARE [facility] 04/10/2024 11:16 AM EST GLUCOSE METER, POINT OF CARE [facility] 04/10/2024 6:24 AM EST HEPATIC FUNCTION PANEL Routine 04/10/2024 5:20 AM EST BASIC METABOLIC PANEL Routine 04/10/2024 5:20 AM EST CBC Routine 04/10/2024 5:20 AM EST GLUCOSE METER, POINT OF CARE [facility] 04/09/2024 9:41 PM EST HC ECG TRACING ONLY STAT 04/09/2024 5 :19 PM EST SOB (shortness of breath) GLUCOSE METER, POINT OF CARE [facility] 04/09/2024 4:21 PM EST XR CHEST 1 VIEW STAT 04/09/2024 1:57 PM EST Other nonspecific abnormal finding of lung field Dyspnea, unspecified BLOOD GAS, VENOUS STAT 04/09/2024 12: 55 PM EST GLUCOSE METER, POINT OF CARE [facility] 04/09/2024 10:56 AM EST GLUCOSE METER, POINT OF CARE [facility] 04/09/2024 6:41 AM EST HEPATIC FUNCTION PANEL Routine 04/09/2024 4:29 AM EST BASIC METABOLIC PANEL Routine 04/09/2024 4:29 AM EST CBC Routine 04/09/2024 4:29 AM EST GLUCOSE METER, POINT OF CARE [facility] 04/08/2024 8:56 PM EST GLUCOSE METER, POINT OF CARE [facility] 04/08/2024 3:34 PM EST XR CHEST 1 VIEW STAT 04/08/2024 2:06 PM EST Other nonspecific abnormal finding of lung field Hypoxemia GLUCOSE METER, POINT OF CARE [facility] 04/08/2024 10:34 AM EST GLUCOSE METER, POINT OF CARE [facility] 04/08/2024 6:22 AM EST HEPATIC FUNCTION PANEL Routine 04/08/2024 3:17 AM EST BASIC METABOLIC PANEL Routine 04/08/2024 3:17 AM EST CBC Routine 04/08/2024 3:17 AM EST GLUCOSE METER, POINT OF CARE [facility] 04/07/2024 8:55 PM EST GLUCOSE METER, POINT OF CARE [facility] 04/07/2024 3:42 PM EST GLUCOSE METER, POINT OF CARE [facility] 04/07/2024 11:17 AM EST ANE GHS CENTRAL LINE Routine 04/07/2024 10:13 AM EST GLUCOSE METER, POINT OF CARE [facility] 04/07/2024 6:54 AM EST GLUCOSE METER, POINT OF CARE [facility] 04/07/2024 6:01 AM EST HC ECG TRACING ONLY Routine 04/07/2024 5 :45 AM EST Tachycardia HEPATIC FUNCTION PANEL Routine 04/07/2024 5:10 AM EST BASIC METABOLIC PANEL Routine 04/07/2024 5:10 AM EST CBC Routine 04/07/2024 5:10 AM EST GLUCOSE METER, POINT OF CARE [facility] 04/06/2024 9:59 PM EST GLUCOSE METER, POINT OF CARE [facility] 04/06/2024 4:07 PM EST VASC DUPLEX VENOUS LE BILAT Routine 04/06/2024 2:16 PM EST Edema, unspecified GLUCOSE METER, POINT OF CARE [facility] 04/06/2024 10:56 AM EST HEPATIC FUNCTION PANEL Routine 04/06/2024 7:00 AM EST BASIC METABOLIC PANEL Routine 04/06/2024 7:00 AM EST CBC Routine 04/06/2024 7:00 AM EST GLUCOSE METER, POINT OF CARE [facility] 04/06/2024 6:55 AM EST GLUCOSE METER, POINT OF CARE [facility] 04/06/2024 1:27 AM EST GLUCOSE METER, POINT OF CARE [facility] 04/05/2024 10:48 PM EST GLUCOSE METER, POINT OF CARE [facility] 04/05/2024 9:26 PM EST GLUCOSE METER, POINT OF CARE [facility] 04/05/2024 4:12 PM EST LACTATE Routine 04/05/2024 1:41 PM EST GLUCOSE METER, POINT OF CARE [facility] 04/05/2024 11:[address] PULMONARY EMBOLUS W CONTRAST Routine 04/05/2024 8:23 AM EST GLUCOSE METER, POINT OF CARE [facility] 04/05/2024 6:06 AM EST HEPATIC FUNCTION PANEL Routine 04/05/2024 3:16 AM EST BASIC METABOLIC PANEL Routine 04/05/2024 3:16 AM EST LACTATE STAT 04/05/2024 3:15 AM EST CBC Routine 04/05/2024 3:15 AM EST XR CHEST 1 VIEW STAT 04/05/2024 12:38 AM EST Other nonspecific abnormal finding of lung field Other specified symptoms and signs involving the circulatory and respiratory systems Dyspnea, unspecified BLOOD GAS, VENOUS STAT 04/05/2024 12: 24 AM EST HEPATIC FUNCTION PANEL Add-on 04/05/2024 12:24 AM EST BASIC METABOLIC PANEL STAT 04/05/2024 12:24 AM EST LACTATE STAT 04/05/2024 12:24 AM EST CBC STAT 04/05/2024 12:24 AM EST EKG Routine 04/05/2024 12:09 AM EST Tachycardia GLUCOSE METER, POINT OF CARE [facility] 04/04/2024 9:56 PM EST GLUCOSE METER, POINT OF CARE [facility] 04/04/2024 4:45 PM EST ELECTROLYTES, RANDOM URINE Routine 04/04/2024 1:47 PM EST GLUCOSE METER, POINT OF CARE [facility] 04/04/2024 11:03 AM EST MYCODE SST1 Routine 04/04/2024 7:30 AM EST MYCODE INITIAL ADULT-PINK Routine 04/04/2024 7:30 AM EST MYCODE INITIAL ADULT-2SST Routine 04/04/2024 7:30 AM EST MYCODE INITIAL ADULT Routine 04/04/2024 7:30 AM EST HEPATIC FUNCTION PANEL Routine 04/04/2024 7:30 AM EST BASIC METABOLIC PANEL Routine 04/04/2024 7:30 AM EST CBC Routine 04/04/2024 7:30 AM EST GLUCOSE METER, POINT OF CARE [facility] 04/04/2024 7:23 AM EST GLUCOSE METER, POINT OF CARE [facility] 04/03/2024 9:[address] CHEST/ABDOMEN/PELVIS WITH IV CONTRAST WITHOUT ORAL CONTRAST Routine 04/03/2024 5:52 PM EST GLUCOSE METER, POINT OF CARE [facility] 04/03/2024 4:27 PM EST ECHO, COMPLETE (2D), TRANS-THORACIC Routine 04/03/2024 3:02 PM EST Bacteremia GLUCOSE METER, POINT OF CARE [facility] 04/03/2024 11:16 AM EST HEPATIC FUNCTION PANEL Routine 04/03/2024 7:34 AM EST BASIC METABOLIC PANEL Routine 04/03/2024 7:34 AM EST CBC Routine 04/03/2024 7:34 AM EST GLUCOSE METER, POINT OF CARE [facility] 04/03/2024 6:38 AM EST GLUCOSE METER, POINT OF CARE [facility] 04/03/2024 12:32 AM EST LACTATE Routine 04/02/2024 6:24 PM EST CLOSTRIDIUM DIFFICILE, PCR Routine 04/02/2024 5:12 PM EST XR BILIARY DUCT CATH, ENDOSCOPIC Routine 04/02/2024 4:00 PM EST ERCP 04/02/2024 3:18 PM EST ERCP, Diagnostic, Specimen collection 04/02/2024 3:18 PM EST Cholangitis GLUCOSE METER, POINT OF CARE [facility] 04/02/2024 11:59 AM EST LACTATE Routine 04/02/2024 11:15 AM EST RESPIRATORY PATHOGEN PANEL, PCR STAT 04/02/2024 10:59 AM EST GLUCOSE METER, POINT OF CARE [facility] 04/02/2024 5:19 AM EST TROPONIN T, HIGH SENSITIVITY Routine 04/02/2024 4:58 AM EST HEPATIC FUNCTION PANEL Routine 04/02/2024 4:58 AM EST BASIC METABOLIC PANEL Routine 04/02/2024 4:58 AM EST LACTATE Routine 04/02/2024 4:58 AM EST CBC Routine 04/02/2024 4:58 AM EST HC ECG TRACING ONLY STAT 04/02/2024 4 :41 AM EST SOB (shortness of breath) URINALYSIS, REFLEX TO CULTURE Routine 04/02/2024 2:51 AM EST URINALYSIS, REFLEX TO CULTURE (CUP ONLY) Routine 04/02/2024 2:51 AM EST URINALYSIS, REFLEX TO CULTURE (NOT FOR NEUTROPENIC PATIENTS) Routine 04/02/2024 2:51 AM EST GLUCOSE METER, POINT OF CARE [facility] 04/02/2024 2:04 AM EST MRSA SCREEN, PCR Routine 04/02/2024 2:01 AM EST DIFFERENTIAL, AUTOMATED STAT 04/02/2024 1:58 AM EST TROPONIN T, HIGH SENSITIVITY Add-on 04/02/2024 1:58 AM EST HEPATIC FUNCTION PANEL STAT 04/02/2024 1:58 AM EST BASIC METABOLIC PANEL STAT 04/02/2024 1:58 AM EST ABO/RH STAT 04/02/2024 1:58 AM EST TYPE AND SCREEN STAT 04/02/2024 1:58 AM EST CBC STAT 04/02/2024 1:58 AM EST PT INR STAT 04/02/2024 1:58 AM EST PHOSPHORUS STAT 04/02/2024 1:58 AM EST LIPASE STAT 04/02/2024 1:58 AM EST LACTATE STAT 04/02/2024 1:58 AM EST CALCIUM, IONIZED, WHOLE BLOOD STAT 04/02/2024 1:58 AM EST CULTURE, BLOOD Routine 04/02/2024 1:58 AM EST CULTURE, BLOOD Routine 04/02/2024 1:58 AM EST CBC STAT 04/02/2024 1:58 AM EST DIFFERENTIAL, TECHNOLOGIST REVIEW Routine 04/02/2024 1:58 AM EST MAGNESIUM STAT 04/02/2024 1:58 AM EST documented in this encounter Results * (ABNORMAL) BASIC METABOLIC PANEL (04/17/2024 8:30 AM EST) BUN 16 6 - 20 mg/dL 04/17/2024 9:36 AM EST [facility] CREATININE 0.7 0.6 - 1.2 mg/dL 04/17/2024 9:36 AM EST [facility] EGFR >90 >=60 mL/min 04/17/2024 9:36 AM EST [facility] Comment:eGFR is calculated b ased on the CKD-EPI 2020 equation. SODIUM 130(L) 135 - 146 mmol/L 04/17/2024 9:36 AM EST [facility] POTASSIUM 4.0 3.5 - 5.1 mmol/L 04/17/2024 9:36 AM EST [facility] CHLORIDE 97(L) 98 - 107 mmol/L 04/17/2024 9:36 AM EST [facility] CO2 22 22 - 32 mmol/L 04/17/2024 9:36 AM EST [facility] ANION GAP 11 7 - 15 mmol/L 04/17/2024 9:36 AM EST [facility] GLUCOSE 173(H) 70 - 120 mg/dL 04/17/2024 9:36 AM EST [facility] CALCIUM 8.7 8.4 - 10.2 mg/dL 04/17/2024 9:36 AM EST [facility] Blood Venous blood specimen / Unknown Venipuncture / Unknown 04/17/2024 8:30 AM EST 04/17/2024 8:40 AM EST us Ritu Gongora DO LAB BLOOD ORDERABLES Final R esult [facility] [address] [place] [address] * (ABNORMAL) CBC (04/17/2024 8:30 AM EST) WBC 7.91 4.00 - 10.80 K/uL 04/17/2024 9:02 AM EST [facility] RBC 3.08 4.50 - 5.25 M/uL 04/17/2024 9:02 AM EST [facility] HGB 9.2(L) 14.0 - 16.8 g/dL 04/17/2024 9:02 AM EST [facility] HCT 28.3(L) 40.0 - 48.4 % 04/17/2024 9:02 AM EST [facility] MCV 91.9 82.0 - 99.5 fL 04/17/2024 9:02 AM EST [facility] MCH 29.9 27.0 - 34.0 pg 04/17/2024 9:02 AM EST LABORATORY [facility] MCHC 32.5 32.0 - 36.0 g/dL 04/17/2024 9:02 AM EST LABORATORY [facility] RDW 20.5 11.5 - 15.5 % 04/17/2024 9:02 AM EST LABORATORY [facility] PLT 222 140 - 400 K/uL 04/17/2024 9:02 AM EST LABORATORY [facility] MPV 10.2 6.6 - 11.1 fL 04/17/2024 9:02 AM EST [facility]ORATORY [facility] nRBCs 0 <=0 /100 WBCs 04/17/2024 9:02 AM EST [facility]ATORY [facility] Blood Venous blood specimen / Unknown Venipuncture / Unknown 04/17/2024 8:30 AM EST 04/17/2024 8:39 AM EST Ritu Gongora DO LAB BLOOD ORDERABLES Final R esult [facility] [address] [place] [address] * NOCTURNAL OXIMETRY (INPATIENT) (04/17/2024 7:26 AM EST) 04/17/2024 7:26 AM EST us Ritu Labmilind DO RESPIRATORY Final Result * (ABNORMAL) GLUCOSE METER, POINT OF CARE (04/17/2024 6:20 AM EST) [facility] Glucose - POCT 122(H) 70 - 120 mg/dL 04/17/2024 6:23 AM EST [facility] Blood Whole blood specimen / Unknown 04/17/2024 6:20 AM EST 04/17/2024 6:23 AM EST us Ritu Labmilind DO LAB POINT OF CARE TE ST DOCKED DEVICE UNSOLICITED RESULTS Final Result [facility] [address] [place] [address] * (ABNORMAL) GLUCOSE METER, POINT OF CARE (04/16/2024 10:13 PM EST) Glucose - POCT 178(H) 70 - 120 mg/dL 04/16/2024 10:18 PM EST [facility] Blood Whole blood specimen / Unknown 04/16/2024 10:13 PM EST 04/16/2024 10:18 PM EST us Ritu Labashosky DO LAB POINT OF CARE TE ST DOCKED DEVICE UNSOLICITED RESULTS Final Result [facility] [address] [place] [address] * GLUCOSE METER, POINT OF CARE (04/16/2024 4:08 PM EST) Glucose - POCT 109 70 - 120 mg/dL 04/16/2024 4:10 PM EST [facility] Blood Whole blood specimen / Unknown 04/16/2024 4:08 PM EST 04/16/2024 4:10 PM EST us Ritu Salcedoosky DO LAB POINT OF CARE TE ST DOCKED DEVICE UNSOLICITED RESULTS Final Result [facility] [address] [place] [address] * (ABNORMAL) GLUCOSE METER, POINT OF CARE (04/16/2024 11:03 AM EST) Glucose - POCT 236(H) 70 - 120 mg/dL 04/16/2024 11:08 AM EST [facility] Blood Whole blood specimen / Unknown 04/16/2024 11:03 AM EST 04/16/2024 11:08 AM EST us Reneeli Labashosky DO LAB POINT OF CARE TE ST DOCKED DEVICE UNSOLICITED RESULTS Final Result [facility] [employer] [facility] [address] [place] [address] * (ABNORMAL) BASIC METABOLIC PANEL (04/16/2024 6:55 AM EST) BUN 15 6 - 20 mg/dL 04/16/2024 7:38 AM EST [facility] CREATININE 0.7 0.6 - 1.2 mg/dL 04/16/2024 7:38 AM EST [facility] EGFR >90 >=60 mL/min 04/16/2024 7:38 AM EST [facility] Comment:eGFR is calculated b ased on the CKD-EPI 2020 equation. SODIUM 130(L) 135 - 146 mmol/L 04/16/2024 7:38 AM EST [facility] POTASSIUM 4.3 3.5 - 5.1 mmol/L 04/16/2024 7:38 AM EST [facility] CHLORIDE 99 98 - 107 mmol/L 04/16/2024 7:38 AM EST [facility] CO2 22 22 - 32 mmol/L 04/16/2024 7:38 AM EST [facility] ANION GAP 9 7 - 15 mmol/L 04/16/2024 7:38 AM EST [facility] GLUCOSE 122(H) 70 - 120 mg/dL 04/16/2024 7:38 AM EST [facility] CALCIUM 8.8 8.4 - 10.2 mg/dL 04/16/2024 7:38 AM EST [facility] Blood Venous blood specimen / Unknown Venipuncture / Unknown 04/16/2024 6:55 AM EST 04/16/2024 7:11 AM EST Ritu Gongora DO LAB BLOOD ORDERABLES Final R esult [facility] [address], [place] [id number] * (ABNORMAL) CBC (04/16/2024 6:55 AM EST) WBC 8.66 4.00 - 10.80 K/uL 04/16/2024 7:21 AM EST [facility] RBC 3.13 4.50 - 5.25 M/uL 04/16/2024 7:21 AM EST [facility] HGB 9.3(L) 14.0 - 16.8 g/dL 04/16/2024 7:21 AM EST [facility] HCT 28.8(L) 40.0 - 48.4 % 04/16/2024 7:21 AM EST [facility] MCV 92.0 82.0 - 99.5 fL 04/16/2024 7:21 AM EST [facility] MCH 29.7 27.0 - 34.0 pg 04/16/2024 7:21 AM EST [facility] MCHC 32.3 32.0 - 36.0 g/dL 04/16/2024 7:21 AM EST [facility] RDW 20.5 11.5 - 15.5 % 04/16/2024 7:21 AM EST [facility] PLT 197 140 - 400 K/uL 04/16/2024 7:21 AM EST [facility] MPV 10.1 6.6 - 11.1 fL 04/16/2024 7:21 AM EST [facility] nRBCs 0 <=0 /100 WBCs 04/16/2024 7:21 AM EST LABORATORY [facility] Blood Venous blood specimen / Unknown Venipuncture / Unknown 04/16/2024 6:55 AM EST 04/16/2024 7:10 AM EST us Ritu Gongora DO LAB BLOOD ORDERABLES Final R esult Performing Organization Address City/State/[facility] Co de Phone Number LABORATORY [facility] [address] [place] [address] * (ABNORMAL) GLUCOSE METER, POINT OF CARE (04/16/2024 6:17 AM EST) [facility] Glucose - POCT 125(H) 70 - 120 mg/dL 04/16/2024 6:25 AM EST [facility] Blood Whole blood specimen / Unknown 04/16/2024 6:17 AM EST 04/16/2024 6:25 AM EST us Ritu Gongora DO LAB POINT OF CARE TE ST DOCKED DEVICE UNSOLICITED RESULTS Final Result [facility] [address] [place] [address] * (ABNORMAL) GLUCOSE METER, POINT OF CARE (04/15/2024 9:01 PM EST) Glucose - POCT 232(H) 70 - 120 mg/dL 04/15/2024 9:04 PM EST [facility] Blood Whole blood specimen / Unknown 04/15/2024 9:01 PM EST 04/15/2024 9:04 PM EST us Ritu Labashosky DO LAB POINT OF CARE TE ST DOCKED DEVICE UNSOLICITED RESULTS Final Result Performing Organization Address [facility]/ZIP Co de Phone Number [facility] [address] [place] [address] * (ABNORMAL) GLUCOSE METER, POINT OF CARE (04/15/2024 4:05 PM EST) Glucose - POCT 130(H) 70 - 120 mg/dL 04/15/2024 4:09 PM EST [facility] Blood Whole blood specimen / Unknown 04/15/2024 4:05 PM EST 04/15/2024 4:09 PM EST us Chaney Labcatrachoosky DO LAB POINT OF CARE TE ST DOCKED DEVICE UNSOLICITED RESULTS Final Result Performing Organization Address City/[facility]/ZIP Co de Phone Number [facility] [address] [place] [address] * (ABNORMAL) GLUCOSE METER, POINT OF CARE (04/15/2024 11:03 AM EST) Glucose - POCT 227(H) 70 - 120 mg/dL 04/15/2024 11:14 AM EST [facility] Blood Whole blood specimen / Unknown 04/15/2024 11:03 AM EST 04/15/2024 11:14 AM EST us Ritu Labashosky DO LAB POINT OF CARE TE ST DOCKED DEVICE UNSOLICITED RESULTS Final Result [facility] [address] [place] [address] * (ABNORMAL) GLUCOSE METER, POINT OF CARE (04/15/2024 6:13 AM EST) Glucose - POCT 121(H) 70 - 120 mg/dL 04/15/2024 6:18 AM EST [facility] Blood Whole blood specimen / Unknown 04/15/2024 6:13 AM EST 04/15/2024 6:18 AM EST Ritu Gongora DO LAB POINT OF CARE TE ST DOCKED DEVICE UNSOLICITED RESULTS Final Result Performing Organization Address City/[facility]/ZIP Co de Phone Number [facility] [address] [place] [address] * (ABNORMAL) GLUCOSE METER, POINT OF CARE (04/14/2024 9:01 PM EST) Glucose - POCT 190(H) 70 - 120 mg/dL 04/14/2024 9:06 PM EST [facility] [employer] Blood Whole blood specimen / Unknown 04/14/2024 9:01 PM EST 04/14/2024 9:06 PM EST us John Villarreal MD LAB POINT OF CARE TE ST DOCKED DEVICE UNSOLICITED RESULTS Final Result [facility] [address] [place] [address] * (ABNORMAL) GLUCOSE METER, POINT OF CARE (04/14/2024 4:11 PM EST) Glucose - POCT 141(H) 70 - 120 mg/dL 04/14/2024 5:21 PM EST [facility] [employer] [employer] [facility] Blood Whole blood specimen / Unknown 04/14/2024 4:11 PM EST 04/14/2024 5:21 PM EST us John Villarreal MD LAB POINT OF CARE TE ST DOCKED DEVICE UNSOLICITED RESULTS Final Result [facility] [address] [place] [address] * (ABNORMAL) GLUCOSE METER, POINT OF CARE (04/14/2024 11:37 AM EST) Glucose - POCT 134(H) 70 - 120 mg/dL 04/14/2024 11:43 AM EST [facility] Blood Whole blood specimen / Unknown 04/14/2024 11:37 AM EST 04/14/2024 11:43 AM EST us John Villarreal MD LAB POINT OF CARE TE ST DOCKED DEVICE UNSOLICITED RESULTS Final Result Performing Organization Address City/[facility]/ZIP Co de Phone Number [facility] [address] [place] [address] * GLUCOSE METER, POINT OF CARE (04/14/2024 8:39 AM EST) Glucose - POCT 107 70 - 120 mg/dL 04/14/2024 8:44 AM EST [facility] Blood Whole blood specimen / Unknown 04/14/2024 8:39 AM EST 04/14/2024 8:44 AM EST us John Villarreal MD LAB POINT OF CARE TE ST DOCKED DEVICE UNSOLICITED RESULTS Final Result [facility] [address] [place] [address] * (ABNORMAL) GLUCOSE METER, POINT OF CARE (04/14/2024 7:32 AM EST) Glucose - POCT 58(L) 70 - 120 mg/dL 04/14/2024 7:35 AM EST [facility] Blood Whole blood specimen / Unknown 04/14/2024 7:32 AM EST 04/14/2024 7:35 AM EST us John Villarreal MD LAB POINT OF CARE TE ST DOCKED DEVICE UNSOLICITED RESULTS Final Result [facility] [address] [place] [address] * (ABNORMAL) BASIC METABOLIC PANEL (04/14/2024 5:50 AM EST) BUN 15 6 - 20 mg/dL 04/14/2024 6:44 AM EST [facility] CREATININE 0.6 0.6 - 1.2 mg/dL 04/14/2024 6:44 AM EST [facility] EGFR >90 >=60 mL/min 04/14/2024 6:44 AM EST [facility] Comment:eGFR is calculated b ased on the CKD-EPI 2020 equation. SODIUM 133(L) 135 - 146 mmol/L 04/14/2024 6:44 AM EST [facility] POTASSIUM 4.0 3.5 - 5.1 mmol/L 04/14/2024 6:44 AM EST [facility] CHLORIDE 99 98 - 107 mmol/L 04/14/2024 6:44 AM EST [facility] CO2 23 22 - 32 mmol/L 04/14/2024 6:44 AM EST [facility] ANION GAP 11 7 - 15 mmol/L 04/14/2024 6:44 AM EST [facility] GLUCOSE 61(L) 70 - 120 mg/dL 04/14/2024 6:44 AM EST [facility] CALCIUM 8.7 8.4 - 10.2 mg/dL 04/14/2024 6:44 AM EST [facility] Blood Blood sample taken from central line / Unknown Venipuncture / Unknown 04/14/2024 5:50 AM EST 04/14/2024 5:59 AM EST us Lili RITCHIE LAB BLOOD ORDERABLES Consuelo l Result [facility] [address] [place] [address] * GLUCOSE METER, POINT OF CARE (04/13/2024 9:02 PM EST) Glucose - POCT 104 70 - 120 mg/dL 04/13/2024 9:05 PM EST [facility] Blood Whole blood specimen / Unknown 04/13/2024 9:02 PM EST 04/13/2024 9:05 PM EST us John Villarreal MD LAB POINT OF CARE TE ST DOCKED DEVICE UNSOLICITED RESULTS Final Result [facility] [address] [place] [address] * GLUCOSE METER, POINT OF CARE (04/13/2024 4:13 PM EST) Glucose - POCT 100 70 - 120 mg/dL 04/13/2024 4:15 PM EST [facility] Blood Whole blood specimen / Unknown 04/13/2024 4:13 PM EST 04/13/2024 4:15 PM EST us John Villarreal MD LAB POINT OF CARE TE ST DOCKED DEVICE UNSOLICITED RESULTS Final Result Performing Organization Address City/[facility]/ZIP Co de Phone Number [facility] [address] [place] [address] * (ABNORMAL) GLUCOSE METER, POINT OF CARE (04/13/2024 11:20 AM EST) Glucose - POCT 172(H) 70 - 120 mg/dL 04/13/2024 11:24 AM EST [facility] Blood Whole blood specimen / Unknown 04/13/2024 11:20 AM EST 04/13/2024 11:24 AM EST us John Villarreal MD LAB POINT OF CARE TE ST DOCKED DEVICE UNSOLICITED RESULTS Final Result Performing Organization Address City/[facility]/ZIP Co de Phone Number [facility] [address] [place] [address] * NOCTURNAL OXIMETRY (INPATIENT) (04/13/2024 7:42 AM EST) 04/13/2024 7:42 AM EST us John Villarreal MD RESPIRATORY Final Result * GLUCOSE METER, POINT OF CARE (04/13/2024 6:19 AM EST) Pathologist [facility] [place] Glucose - POCT 99 70 - 120 mg/dL 04/13/2024 6:21 AM EST [facility] Blood Whole blood specimen / Unknown 04/13/2024 6:19 AM EST 04/13/2024 6:21 AM EST us John Villarreal MD LAB POINT OF CARE TE ST DOCKED DEVICE UNSOLICITED RESULTS Final Result Performing Organization Address City/[facility]/ZIP Co de Phone Number [facility] [address] [place] [address] * MAGNESIUM (04/13/2024 3:45 AM EST) Pathologist [facility] [place] Magnesium 1.9 1.5 - 2.6 mg/dL 04/13/2024 4:25 AM EST LABORATORY [facility] Blood Blood sample taken from central line / Unknown Venipuncture / Unknown 04/13/2024 3:45 AM EST 04/13/2024 3:53 AM EST us John Villarreal MD LAB BLOOD ORDERABLES Final Re sult LABORATORY [facility] [address] [place] [address] * (ABNORMAL) BASIC METABOLIC PANEL (04/13/2024 3:45 AM EST) BUN 16 6 - 20 mg/dL 04/13/2024 4:25 AM EST LABORATORY [facility] CREATININE 0.7 0.6 - 1.2 mg/dL 04/13/2024 4:25 AM EST LABORATORY [facility] EGFR >90 >=60 mL/min 04/13/2024 4:25 AM EST [facility] Comment:eGFR is calculated b ased on the CKD-EPI 2020 equation. SODIUM 135 135 - 146 mmol/L 04/13/2024 4:25 AM EST [facility] POTASSIUM 4.0 3.5 - 5.1 mmol/L 04/13/2024 4:25 AM EST [facility] CHLORIDE 101 98 - 107 mmol/L 04/13/2024 4:25 AM EST [facility] CO2 25 22 - 32 mmol/L 04/13/2024 4:25 AM EST [facility] ANION GAP 9 7 - 15 mmol/L 04/13/2024 4:25 AM EST [facility] GLUCOSE 75 70 - 120 mg/dL 04/13/2024 4:25 AM EST [facility] CALCIUM 8.3(L) 8.4 - 10.2 mg/dL 04/13/2024 4:25 AM EST [facility] Blood Blood sample taken from central line / Unknown Venipuncture / Unknown 04/13/2024 3:45 AM EST 04/13/2024 3:53 AM EST us John Villarreal MD LAB BLOOD ORDERABLES Final Re sult LABORATORY [facility] [address] [place] [address] * (ABNORMAL) HEPATIC FUNCTION PANEL (04/13/2024 3:45 AM EST) Albumin 2.6(L) 3.8 - 5.0 g/dL 04/13/2024 4:25 AM EST [facility] AST 41 10 - 50 U/L 04/13/2024 4:25 AM EST [facility] Alkaline Phosphatase 486(H) 35 - 130 U/L 04/13/2024 4:25 AM EST [facility] ALT 32 10 - 50 U/L 04/13/2024 4:25 AM EST [facility] Bilirubin, Total 0.9 <=1.2 mg/dL 04/13/2024 4:25 AM EST [facility] Bilirubin, Direct 0.6(H) 0.0 - 0.3 mg/dL 04/13/2024 4:25 AM EST [facility] Protein 5.5(L) 6.0 - 8.3 g/dL 04/13/2024 4:25 AM EST [facility] Blood Blood sample taken from central line / Unknown Venipuncture / Unknown 04/13/2024 3:45 AM EST 04/13/2024 3:53 AM EST us Ann Jay PA-C LAB BLOOD ORDERABLES Final R esult LAB[facility]ATORY [facility] [address] [place] [address] * (ABNORMAL) CBC (04/13/2024 3:45 AM EST) WBC 8.36 4.00 - 10.80 K/uL 04/13/2024 4:05 AM EST [facility] RBC 2.78 4.50 - 5.25 M/uL 04/13/2024 4:05 AM EST [facility] HGB 8.0(L) 14.0 - 16.8 g/dL 04/13/2024 4:05 AM EST [facility] HCT 25.0(L) 40.0 - 48.4 % 04/13/2024 4:05 AM EST [facility] MCV 89.9 82.0 - 99.5 fL 04/13/2024 4:05 AM EST [facility] MCH 28.8 27.0 - 34.0 pg 04/13/2024 4:05 AM EST [facility] MCHC 32.0 32.0 - 36.0 g/dL 04/13/2024 4:05 AM EST [facility] RDW 19.5 11.5 - 15.5 % 04/13/2024 4:05 AM EST [facility] PLT 168 140 - 400 K/uL 04/13/2024 4:05 AM EST [facility] MPV 10.7 6.6 - 11.1 fL 04/13/2024 4:05 AM EST [facility] nRBCs 0 <=0 /100 WBCs 04/13/2024 4:05 AM EST [facility] Blood Blood sample taken from central line / Unknown Venipuncture / Unknown 04/13/2024 3:45 AM EST 04/13/2024 3:53 AM EST us Ann Jay PA-C LAB BLOOD ORDERABLES Final R esult LABORATORY [facility] [address], [place] [id number] * (ABNORMAL) GLUCOSE METER, POINT OF CARE (04/12/2024 9:27 PM EST) Pathologist [facility] [place] Glucose - POCT 155(H) 70 - 120 mg/dL 04/12/2024 9:32 PM EST [facility] Blood Whole blood specimen / Unknown 04/12/2024 9:27 PM EST 04/12/2024 9:32 PM EST John Villarreal MD LAB POINT OF CARE TE ST DOCKED DEVICE UNSOLICITED RESULTS Final Result Performing Organization Address City/[facility]/ZIP Co de Phone Number [facility] [address] [place] [address] * (ABNORMAL) BASIC METABOLIC PANEL (04/12/2024 7:43 PM EST) Pathologist [facility] [place] BUN 16 6 - 20 mg/dL 04/12/2024 8:28 PM EST [facility] CREATININE 0.7 0.6 - 1.2 mg/dL 04/12/2024 8:28 PM EST [facility] EGFR >90 >=60 mL/min 04/12/2024 8:28 PM EST [facility] Comment:eGFR is calculated b ased on the CKD-EPI 2020 equation. SODIUM 135 135 - 146 mmol/L 04/12/2024 8:28 PM EST [facility] POTASSIUM 4.8 3.5 - 5.1 mmol/L 04/12/2024 8:28 PM EST [facility] CHLORIDE 100 98 - 107 mmol/L 04/12/2024 8:28 PM EST [facility] CO2 25 22 - 32 mmol/L 04/12/2024 8:28 PM EST [facility] ANION GAP 10 7 - 15 mmol/L 04/12/2024 8:28 PM EST [facility] GLUCOSE 131(H) 70 - 120 mg/dL 04/12/2024 8:28 PM EST [facility] CALCIUM 8.1(L) 8.4 - 10.2 mg/dL 04/12/2024 8:28 PM EST LABORATORY [facility] Blood Venous blood specimen / Unknown Venipuncture / Unknown 04/12/2024 7:43 PM EST 04/12/2024 8:00 PM EST us John Villarreal MD LAB BLOOD ORDERABLES Final Re sult [facility]ATORY [facility] [address] [place] [address] * GLUCOSE METER, POINT OF CARE (04/12/2024 4:40 PM EST) Glucose - POCT 85 70 - 120 mg/dL 04/12/2024 4:43 PM EST [facility] Blood Whole blood specimen / Unknown 04/12/2024 4:40 PM EST 04/12/2024 4:43 PM EST us John Villarreal MD LAB POINT OF CARE TE ST DOCKED DEVICE UNSOLICITED RESULTS Final Result Performing Organization Address City/[facility]/ZIP Co de Phone Number [facility] [address] [place] [address] * (ABNORMAL) GLUCOSE METER, POINT OF CARE (04/12/2024 11:20 AM EST) Glucose - POCT 252(H) 70 - 120 mg/dL 04/12/2024 11:22 AM EST [facility] Blood Whole blood specimen / Unknown 04/12/2024 11:20 AM EST 04/12/2024 11:22 AM EST us John Villarreal MD LAB POINT OF CARE TE ST DOCKED DEVICE UNSOLICITED RESULTS Final Result [facility] [address] [place] [address] * GLUCOSE METER, POINT OF CARE (04/12/2024 6:19 AM EST) Glucose - POCT 108 70 - 120 mg/dL 04/12/2024 6:49 AM EST [facility] Blood Whole blood specimen / Unknown 04/12/2024 6:19 AM EST 04/12/2024 6:49 AM EST us John Villarreal MD LAB POINT OF CARE TE ST DOCKED DEVICE UNSOLICITED RESULTS Final Result [facility] [address] [place] [address] * MAGNESIUM (04/12/2024 5:24 AM EST) [facility] Magnesium 2.1 1.5 - 2.6 mg/dL 04/12/2024 6:06 AM EST LABORATORY [facility] Blood Blood sample taken from central line / Unknown Venipuncture / Unknown 04/12/2024 5:24 AM EST 04/12/2024 5:36 AM EST us John Villarreal MD LAB BLOOD ORDERABLES Final Re sult LABORATORY [facility] [address], [place] [id number] * (ABNORMAL) BASIC METABOLIC PANEL (04/12/2024 5:24 AM EST) [facility] BUN 16 6 - 20 mg/dL 04/12/2024 6:06 AM EST LABORATORY [facility] CREATININE 0.7 0.6 - 1.2 mg/dL 04/12/2024 6:06 AM EST LABORATORY [facility] EGFR >90 >=60 mL/min 04/12/2024 6:06 AM EST LABORATORY [facility] Comment:eGFR is calculated b ased on the CKD-EPI 2020 equation. SODIUM 136 135 - 146 mmol/L 04/12/2024 6:06 AM EST [facility] POTASSIUM 3.8 3.5 - 5.1 mmol/L 04/12/2024 6:06 AM EST [facility] CHLORIDE 101 98 - 107 mmol/L 04/12/2024 6:06 AM EST [facility] CO2 26 22 - 32 mmol/L 04/12/2024 6:06 AM EST [facility] ANION GAP 9 7 - 15 mmol/L 04/12/2024 6:06 AM EST LAB[facility] GLUCOSE 124(H) 70 - 120 mg/dL 04/12/2024 6:06 AM EST [facility] CALCIUM 8.1(L) 8.4 - 10.2 mg/dL 04/12/2024 6:06 AM EST [facility] Blood Blood sample taken from central line / Unknown Venipuncture / Unknown 04/12/2024 5:24 AM EST 04/12/2024 5:36 AM EST John Villarreal MD LAB BLOOD ORDERABLES Final Re sult LABORATORY [facility] [address] [place] [address] * (ABNORMAL) HEPATIC FUNCTION PANEL (04/12/2024 5:24 AM EST) Pathologist [facility] [place] Albumin 2.3(L) 3.8 - 5.0 g/dL 04/12/2024 6:06 AM EST LAB[facility]ATORY [facility] AST 38 10 - 50 U/L 04/12/2024 6:06 AM EST LABORATORY [facility] Alkaline Phosphatase 522(H) 35 - 130 U/L 04/12/2024 6:06 AM EST LABORATORY [facility] ALT 31 10 - 50 U/L 04/12/2024 6:06 AM EST LABORATORY [facility] Bilirubin, Total 0.9 <=1.2 mg/dL 04/12/2024 6:06 AM EST LAB[facility]ATORY [facility] Bilirubin, Direct 0.6(H) 0.0 - 0.3 mg/dL 04/12/2024 6:06 AM EST LAB[facility] Protein 5.3(L) 6.0 - 8.3 g/dL 04/12/2024 6:06 AM EST LABORATORY [facility] Blood Blood sample taken from central line / Unknown Venipuncture / Unknown 04/12/2024 5:24 AM EST 04/12/2024 5:36 AM EST Ann Jay PA-C LAB BLOOD ORDERABLES Final R esult Performing Organization Address City/[facility]/ZIP Co de Phone Number LABORATORY [facility] [address] [place] [address] * (ABNORMAL) CBC (04/12/2024 5:24 AM EST) WBC 8.93 4.00 - 10.80 K/uL 04/12/2024 5:45 AM EST LAB[facility]ORY [facility] RBC 2.92 4.50 - 5.25 M/uL 04/12/2024 5:45 AM EST LAB[facility]ORY [facility] HGB 8.2(L) 14.0 - 16.8 g/dL 04/12/2024 5:45 AM EST LAB[facility] HCT 26.1(L) 40.0 - 48.4 % 04/12/2024 5:45 AM EST LAB[facility] MCV 89.4 82.0 - 99.5 fL 04/12/2024 5:45 AM EST LAB[facility]ORY [facility] MCH 28.1 27.0 - 34.0 pg 04/12/2024 5:45 AM EST LAB[facility] MCHC 31.4 32.0 - 36.0 g/dL 04/12/2024 5:45 AM EST LAB[facility]ORY [facility] RDW 19.6 11.5 - 15.5 % 04/12/2024 5:45 AM EST LAB[facility] PLT 151 140 - 400 K/uL 04/12/2024 5:45 AM EST [facility] MPV 10.4 6.6 - 11.1 fL 04/12/2024 5:45 AM EST LAB[facility]ORY [facility] nRBCs 0 <=0 /100 WBCs 04/12/2024 5:45 AM EST [facility] Blood Blood sample taken from central line / Unknown Venipuncture / Unknown 04/12/2024 5:24 AM EST 04/12/2024 5:36 AM EST us Ann Jay PA-C LAB BLOOD ORDERABLES Final R esult LAB[facility]ATORY [facility] [address] [place] [address] * EKG (04/12/2024 12:39 AM EST) 04/12/2024 12:3 9 AM EST Narrative Procedure Note Jose L Ortega MD - 04/12/2024 12:39 AM EST REASON FOR STUDY: First degree atrioventricular block CONCLUSIONS: Normal sinus rhythm Nonspecific ST abnormality When compared with ECG of 12-Apr-2024 00:38, No significant change was found Ventricular Rate: 70 Atrial Rate: 70 IA Interval: 184 QRS Duration: 94 QT/QTc: 472/509 ms P-R-T [place]: 52 : 12 : 19 degrees us Lili RITCHIE EKG Final Res ult Performing Organization Address City/[facility]/ZIP Co de Phone Number [facility] CARDIOLOGY * GLUCOSE METER, POINT OF CARE (04/11/2024 9:15 PM EST) Glucose - POCT 119 70 - 120 mg/dL 04/11/2024 9:53 PM EST [facility] [employer] Blood Whole blood specimen / Unknown 04/11/2024 9:15 PM EST 04/11/2024 9:53 PM EST us John Villarreal MD LAB POINT OF CARE TE ST DOCKED DEVICE UNSOLICITED RESULTS Final Result Performing Organization Address [facility] Co de Phone Number [facility] [address] [place] [address] * MAGNESIUM (04/11/2024 8:55 PM EST) Magnesium 1.8 1.5 - 2.6 mg/dL 04/12/2024 1:30 AM EST LABORATORY [facility] Blood Blood sample taken from central line / Unknown Venipuncture / Unknown 04/11/2024 8:55 PM EST 04/11/2024 9:03 PM EST Lili RITCHIE LAB BLOOD ORDERABLES Consuelo l Result Performing Organization Address City/[facility]/ZIP Co de Phone Number LABORATORY [facility] [address] [place] [address] * (ABNORMAL) BASIC METABOLIC PANEL (04/11/2024 8:55 PM EST) Pathologist [facility] [place] BUN 18 6 - 20 mg/dL 04/11/2024 9:31 PM EST LABORATORY [facility] CREATININE 0.8 0.6 - 1.2 mg/dL 04/11/2024 9:31 PM EST LAB[facility]ATORY [facility] EGFR 90 >=60 mL/min 04/11/2024 9:31 PM EST LAB[facility]ORY [facility] Comment:eGFR is calculated b ased on the CKD-EPI 2020 equation. SODIUM 134(L) 135 - 146 mmol/L 04/11/2024 9:31 PM EST LAB[facility]ATORY [facility] POTASSIUM 4.0 3.5 - 5.1 mmol/L 04/11/2024 9:31 PM EST LAB[facility]ATORY [facility] CHLORIDE 100 98 - 107 mmol/L 04/11/2024 9:31 PM EST LAB[facility] CO2 25 22 - 32 mmol/L 04/11/2024 9:31 PM EST LAB[facility]AT[facility] ANION GAP 9 7 - 15 mmol/L 04/11/2024 9:31 PM EST LAB[facility] GLUCOSE 117 70 - 120 mg/dL 04/11/2024 9:31 PM EST LAB[facility] CALCIUM 8.1(L) 8.4 - 10.2 mg/dL 04/11/2024 9:31 PM EST LABORATORY [facility] Blood Blood sample taken from central line / Unknown Venipuncture / Unknown 04/11/2024 8:55 PM EST 04/11/2024 9:03 PM EST us John Villarreal MD LAB BLOOD ORDERABLES Final Re sult LABORATORY [facility] [address] [place] [address] * GLUCOSE METER, POINT OF CARE (04/11/2024 4:11 PM EST) [facility] Glucose - POCT 85 70 - 120 mg/dL 04/11/2024 4:33 PM EST [facility] Blood Whole blood specimen / Unknown 04/11/2024 4:11 PM EST 04/11/2024 4:33 PM EST us John Villarreal MD LAB POINT OF CARE TE ST DOCKED DEVICE UNSOLICITED RESULTS Final Result [facility] [address] [place] [address] * (ABNORMAL) GLUCOSE METER, POINT OF CARE (04/11/2024 11:26 AM EST) Glucose - POCT 129(H) 70 - 120 mg/dL 04/11/2024 4:33 PM EST [facility] [employer] Blood Whole blood specimen / Unknown 04/11/2024 11:26 AM EST 04/11/2024 4:33 PM EST us John Villarreal MD LAB POINT OF CARE TE ST DOCKED DEVICE UNSOLICITED RESULTS Final Result Performing Organization Address City/[facility]/ZIP Co de Phone Number [facility] [address] [place] [address] * GLUCOSE METER, POINT OF CARE (04/11/2024 6:36 AM EST) Glucose - POCT 103 70 - 120 mg/dL 04/11/2024 6:45 AM EST [facility] Blood Whole blood specimen / Unknown 04/11/2024 6:36 AM EST 04/11/2024 6:45 AM EST us John Villarreal MD LAB POINT OF CARE TE ST DOCKED DEVICE UNSOLICITED RESULTS Final Result [facility] [address] [place] [address] * MAGNESIUM (04/11/2024 3:35 AM EST) Magnesium 2.0 1.5 - 2.6 mg/dL 04/11/2024 4:11 AM EST LABORATORY [facility] Blood Blood sample taken from central line / Unknown Venipuncture / Unknown 04/11/2024 3:35 AM EST 04/11/2024 3:43 AM EST us John Villarreal MD LAB BLOOD ORDERABLES Final Re sult Performing Organization Address City/[facility]/ZIP Co de Phone Number LABORATORY [facility] [address] [place] [address] * (ABNORMAL) BASIC METABOLIC PANEL (04/11/2024 3:35 AM EST) BUN 15 6 - 20 mg/dL 04/11/2024 4:11 AM EST LABORATORY [facility] CREATININE 0.6 0.6 - 1.2 mg/dL 04/11/2024 4:11 AM EST LABORATORY [facility] EGFR >90 >=60 mL/min 04/11/2024 4:11 AM EST LABORATORY [facility] Comment:eGFR is calculated b ased on the CKD-EPI 2020 equation. SODIUM 133(L) 135 - 146 mmol/L 04/11/2024 4:11 AM EST LABORATORY [facility] POTASSIUM 3.8 3.5 - 5.1 mmol/L 04/11/2024 4:11 AM EST LABORATORY [facility] CHLORIDE 99 98 - 107 mmol/L 04/11/2024 4:11 AM EST LABORATORY [facility] CO2 23 22 - 32 mmol/L 04/11/2024 4:11 AM EST [facility] ANION GAP 11 7 - 15 mmol/L 04/11/2024 4:11 AM EST [facility] GLUCOSE 139(H) 70 - 120 mg/dL 04/11/2024 4:11 AM EST [facility] CALCIUM 8.3(L) 8.4 - 10.2 mg/dL 04/11/2024 4:11 AM EST [facility] Blood Blood sample taken from central line / Unknown Venipuncture / Unknown 04/11/2024 3:35 AM EST 04/11/2024 3:43 AM EST John Villarreal MD LAB BLOOD ORDERABLES Final Re sult Performing Organization Address [facility]/ZIP Co de Phone Number LABORATORY [facility] [address] [place] [address] * (ABNORMAL) HEPATIC FUNCTION PANEL (04/11/2024 3:35 AM EST) Albumin 2.4(L) 3.8 - 5.0 g/dL 04/11/2024 4:11 AM EST [facility] AST 37 10 - 50 U/L 04/11/2024 4:11 AM EST [facility] Alkaline Phosphatase 498(H) 35 - 130 U/L 04/11/2024 4:11 AM EST [facility] ALT 31 10 - 50 U/L 04/11/2024 4:11 AM EST [facility] Bilirubin, Total 1.1 <=1.2 mg/dL 04/11/2024 4:11 AM EST LAB[facility] Bilirubin, Direct 0.7(H) 0.0 - 0.3 mg/dL 04/11/2024 4:11 AM EST [facility] Protein 5.3(L) 6.0 - 8.3 g/dL 04/11/2024 4:11 AM EST [facility] Blood Blood sample taken from central line / Unknown Venipuncture / Unknown 04/11/2024 3:35 AM EST 04/11/2024 3:43 AM EST us Ann Jay PA-C LAB BLOOD ORDERABLES Final R esult Performing Organization Address City/State/[facility] Co de Phone Number LABORATORY [facility] [address] [place] [address] * (ABNORMAL) CBC (04/11/2024 3:35 AM EST) WBC 12.83(H) 4.00 - 10.80 K/uL 04/11/2024 4:37 AM EST LAB[facility]ATORY [facility] RBC 3.11 4.50 - 5.25 M/uL 04/11/2024 4:37 AM EST LAB[facility] HGB 8.7(L) 14.0 - 16.8 g/dL 04/11/2024 4:37 AM EST LAB[facility] HCT 27.6(L) 40.0 - 48.4 % 04/11/2024 4:37 AM EST LAB[facility] MCV 88.7 82.0 - 99.5 fL 04/11/2024 4:37 AM EST LAB[facility]ATORY [facility] MCH 28.0 27.0 - 34.0 pg 04/11/2024 4:37 AM EST LABORATORY [facility] MCHC 31.5 32.0 - 36.0 g/dL 04/11/2024 4:37 AM EST LABORATORY C RDW 19.1 11.5 - 15.5 % 04/11/2024 4:37 AM EST LABORATORY C PLT 151 140 - 400 K/uL 04/11/2024 4:37 AM EST LABORATORY [facility] MPV 10.3 6.6 - 11.1 fL 04/11/2024 4:37 AM EST LABORATORY C nRBCs 0 <=0 /100 WBCs 04/11/2024 4:37 AM EST LABORATORY [facility] Blood Blood sample taken from central line / Unknown Venipuncture / Unknown 04/11/2024 3:35 AM EST 04/11/2024 3:43 AM EST us Ann Jay PA-C LAB BLOOD ORDERABLES Final R esult LABORATORY [facility] [address] [place] [address] * (ABNORMAL) GLUCOSE METER, POINT OF CARE (04/10/2024 9:07 PM EST) [facility] Glucose - POCT 143(H) 70 - 120 mg/dL 04/10/2024 9:11 PM EST [facility] Blood Whole blood specimen / Unknown 04/10/2024 9:07 PM EST 04/10/2024 9:11 PM EST us John Villarreal MD LAB POINT OF CARE TE ST DOCKED DEVICE UNSOLICITED RESULTS Final Result [facility] [address] [place] [address] * MAGNESIUM (04/10/2024 8:29 PM EST) Pathologist [facility] [place] Magnesium 1.6 1.5 - 2.6 mg/dL 04/10/2024 9:03 PM EST LABORATORY [facility] Blood Blood sample taken from central line / Unknown Venipuncture / Unknown 04/10/2024 8:29 PM EST 04/10/2024 8:36 PM EST John Villarreal MD LAB BLOOD ORDERABLES Final Re sult Performing Organization Address City/[facility]/ZIP Co de Phone Number LABORATORY [facility] [address], [place] [id number] * (ABNORMAL) BASIC METABOLIC PANEL (04/10/2024 8:29 PM EST) [facility] BUN 17 6 - 20 mg/dL 04/10/2024 9:03 PM EST LABORATORY [facility] CREATININE 0.6 0.6 - 1.2 mg/dL 04/10/2024 9:03 PM EST LAB[facility]ATORY [facility] EGFR >90 >=60 mL/min 04/10/2024 9:03 PM EST LAB[facility]ATORY [facility] Comment:eGFR is calculated b ased on the CKD-EPI 2020 equation. SODIUM 130(L) 135 - 146 mmol/L 04/10/2024 9:03 PM EST LAB[facility]ATORY [facility] POTASSIUM 4.0 3.5 - 5.1 mmol/L 04/10/2024 9:03 PM EST LAB[facility] CHLORIDE 97(L) 98 - 107 mmol/L 04/10/2024 9:03 PM EST [facility] CO2 23 22 - 32 mmol/L 04/10/2024 9:03 PM EST LAB[facility]ATORY [facility] ANION GAP 10 7 - 15 mmol/L 04/10/2024 9:03 PM EST LAB[facility] GLUCOSE 184(H) 70 - 120 mg/dL 04/10/2024 9:03 PM EST LAB[facility] CALCIUM 8.4 8.4 - 10.2 mg/dL 04/10/2024 9:03 PM EST LABORATORY [facility] Blood Blood sample taken from central line / Unknown Venipuncture / Unknown 04/10/2024 8:29 PM EST 04/10/2024 8:36 PM EST John Villarreal MD LAB BLOOD ORDERABLES Final Re sult Performing Organization Address [facility]/ZIP Co de Phone Number LABORATORY [facility] [address] [place] [address] * GLUCOSE METER, POINT OF CARE (04/10/2024 4:14 PM EST) Glucose - POCT 103 70 - 120 mg/dL 04/10/2024 4:17 PM EST [employer] [facility] Blood Whole blood specimen / Unknown 04/10/2024 4:14 PM EST 04/10/2024 4:17 PM EST us John Villarreal MD LAB POINT OF CARE TE ST DOCKED DEVICE UNSOLICITED RESULTS Final Result [facility] [address] [place] [address] * (ABNORMAL) GLUCOSE METER, POINT OF CARE (04/10/2024 11:16 AM EST) Glucose - POCT 153(H) 70 - 120 mg/dL 04/10/2024 4:17 PM EST [employer] Blood Whole blood specimen / Unknown 04/10/2024 11:16 AM EST 04/10/2024 4:17 PM EST us John Villarreal MD LAB POINT OF CARE TE ST DOCKED DEVICE UNSOLICITED RESULTS Final Result [facility] [address] [place] [address] * GLUCOSE METER, POINT OF CARE (04/10/2024 6:24 AM EST) Glucose - POCT 93 70 - 120 mg/dL 04/10/2024 6:57 AM EST [facility] Blood Whole blood specimen / Unknown 04/10/2024 6:24 AM EST 04/10/2024 6:57 AM EST us John Villarreal MD LAB POINT OF CARE TE ST DOCKED DEVICE UNSOLICITED RESULTS Final Result [facility] [address] [place] [address] * (ABNORMAL) HEPATIC FUNCTION PANEL (04/10/2024 5:20 AM EST) Albumin 2.3(L) 3.8 - 5.0 g/dL 04/10/2024 5:57 AM EST [facility] AST 43 10 - 50 U/L 04/10/2024 5:57 AM EST LAB[facility] Alkaline Phosphatase 483(H) 35 - 130 U/L 04/10/2024 5:57 AM EST LAB[facility]ATORY [facility] ALT 36 10 - 50 U/L 04/10/2024 5:57 AM EST LAB[facility] Bilirubin, Total 1.1 <=1.2 mg/dL 04/10/2024 5:57 AM EST LAB[facility]ATORY [facility] Bilirubin, Direct 0.8(H) 0.0 - 0.3 mg/dL 04/10/2024 5:57 AM EST LAB[facility] Protein 5.1(L) 6.0 - 8.3 g/dL 04/10/2024 5:57 AM EST LABORATORY [facility] Blood Blood sample taken from central line / Unknown Venipuncture / Unknown 04/10/2024 5:20 AM EST 04/10/2024 5:26 AM EST Ann Jay PA-C LAB BLOOD ORDERABLES Final R esult LABORATORY [facility] [address] [place] [address] * (ABNORMAL) BASIC METABOLIC PANEL (04/10/2024 5:20 AM EST) BUN 13 6 - 20 mg/dL 04/10/2024 5:57 AM EST [facility] CREATININE 0.6 0.6 - 1.2 mg/dL 04/10/2024 5:57 AM EST LAB[facility]ATORY [facility] EGFR >90 >=60 mL/min 04/10/2024 5:57 AM EST LABORATORY [facility] Comment:eGFR is calculated b ased on the CKD-EPI 2020 equation. SODIUM 135 135 - 146 mmol/L 04/10/2024 5:57 AM EST LAB[facility]ATORY [facility] POTASSIUM 3.7 3.5 - 5.1 mmol/L 04/10/2024 5:57 AM EST LAB[facility]ATORY [facility] CHLORIDE 103 98 - 107 mmol/L 04/10/2024 5:57 AM EST LAB[facility]ATORY [facility] CO2 24 22 - 32 mmol/L 04/10/2024 5:57 AM EST LAB[facility]ATORY [facility] ANION GAP 8 7 - 15 mmol/L 04/10/2024 5:57 AM EST LAB[facility]ATORY [facility] GLUCOSE 127(H) 70 - 120 mg/dL 04/10/2024 5:57 AM EST LAB[facility]ATORY [facility] CALCIUM 8.3(L) 8.4 - 10.2 mg/dL 04/10/2024 5:57 AM EST LAB[facility]ORY [facility] Blood Blood sample taken from central line / Unknown Venipuncture / Unknown 04/10/2024 5:20 AM EST 04/10/2024 5:26 AM EST us Ann Jay PA-C LAB BLOOD ORDERABLES Final R esult Performing Organization Address City/State/[facility] Co de Phone Number LABORATORY [facility] [address] [place] [address] * (ABNORMAL) CBC (04/10/2024 5:20 AM EST) WBC 15.83(H) 4.00 - 10.80 K/uL 04/10/2024 5:38 AM EST LAB[facility]ATORY [facility] RBC 3.04 4.50 - 5.25 M/uL 04/10/2024 5:38 AM EST LAB[facility]ATORY [facility] HGB 8.6(L) 14.0 - 16.8 g/dL 04/10/2024 5:38 AM EST LAB[facility]ATORY [facility] HCT 27.2(L) 40.0 - 48.4 % 04/10/2024 5:38 AM EST LAB[facility]ATORY [facility] MCV 89.5 82.0 - 99.5 fL 04/10/2024 5:38 AM EST LAB[facility]ATORY [facility] MCH 28.3 27.0 - 34.0 pg 04/10/2024 5:38 AM EST LAB[facility]ATORY [facility] MCHC 31.6 32.0 - 36.0 g/dL 04/10/2024 5:38 AM EST LAB[facility]ATORY [facility] RDW 19.0 11.5 - 15.5 % 04/10/2024 5:38 AM EST LABORATORY [facility] PLT 124(L) 140 - 400 K/uL 04/10/2024 5:38 AM EST LABORATORY [facility] MPV 10.3 6.6 - 11.1 fL 04/10/2024 5:38 AM EST LABORATORY [facility] nRBCs 0 <=0 /100 WBCs 04/10/2024 5:38 AM EST LABORATORY [facility] Blood Blood sample taken from central line / Unknown Venipuncture / Unknown 04/10/2024 5:20 AM EST 04/10/2024 5:26 AM EST Ann Jay PA-C LAB BLOOD ORDERABLES Final R esult LABORATORY [facility] [address] [place] [address] * GLUCOSE METER, POINT OF CARE (04/09/2024 9:41 PM EST) [facility] Glucose - POCT 105 70 - 120 mg/dL 04/09/2024 10:25 PM EST 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 rate has decreased Ventricular Rate: 81 Atrial Rate: 81 IA Interval: 162 QRS Duration: 92 QT/QTc: 400/464 ms P-R-T [place]: 37 : -7 : -4 degrees us John Villarreal MD EKG Final Result [facility] CARDIOLOGY * (ABNORMAL) GLUCOSE METER, POINT OF CARE (04/09/2024 4:21 PM EST) [facility] Signature Glucose - POCT 128(H) 70 - 120 mg/dL 04/09/2024 4:34 PM EST [facility] [employer] [facility] Blood Whole blood specimen / Unknown 04/09/2024 4:21 PM EST 04/09/2024 4:34 PM EST us John Villarreal MD LAB POINT OF CARE TE ST DOCKED DEVICE UNSOLICITED RESULTS Final Result Performing Organization Address City/[facility]/ZIP Co de Phone Number [facility] [address] [place] [address] * XR CHEST 1 VIEW (04/09/2024 1:57 PM EST) Anatomical Region Laterality Modality Chest Computed Radiogr aphy 04/09/2024 2:31 PM EST Impressions 04/09/2024 2:28 PM EST IMPRESSION Similar lateral right upper lobe opacity, which may reflect pneumonia superimposed on emphysema. No new opacity. Narrative 04/09/2024 2:28 PM EST EXAM XR CHEST 1 VIEW-04/09/2024 1:57 pm HISTORY dyspnea COMPARISON XR CHEST 1 VIEW, ACC: [id number], dated 2024-04-08 13:53:43 TECHNIQUE Single portable frontal view of the chest. FINDINGS Lines/Tubes: Similar right port catheter. Lungs/Pleura: Similar lateral right upper lobe opacity. No new opacity. No sizable pleural effusion or pneumothorax. Heart/Mediastinum: Unchanged contours. CABG. Bones/Soft Tissues: Median sternotomy. Upper Abdomen: Visualized portions are unremarkable. Procedure Note Omar Alvarado MD - 04/09/2024 EXAM XR CHEST 1 VIEW-04/09/2024 1:57 pm HISTORY dyspnea COMPARISON XR CHEST 1 VIEW, ACC: [id number], dated 2024-04-08 13:53:43 TECHNIQUE Single portable frontal view of the chest. FINDINGS Lines/Tubes: Similar right port catheter. Lungs/Pleura: Similar lateral right upper lobe opacity. No new opacity.No sizable pleural effusion or pneumothorax. Heart/Mediastinum: Unchanged contours. CABG. Bones/Soft Tissues: Median sternotomy. Upper Abdomen: Visualized portions are unremarkable. IMPRESSION IMPRESSION Similar lateral right upper lobe opacity, which may reflect pneumoniasuperimposed on emphysema. No new opacity. us John Villarreal MD RADIOLOGY ([facility]) Final Result * (ABNORMAL) BLOOD GAS, VENOUS (04/09/2024 12:55 PM EST) Temperature 37.0 C 04/09/2024 1:05 PM EST LABORATORY [facility] pH, Venous 7.319(L) 7.320 - 7.430 units 04/09/2024 1:05 PM EST LABORATORY [facility] pCO2, Venous 47.5 40.0 - 60.0 mmHg 04/09/2024 1:05 PM EST LAB[facility]ATORY [facility] pO2, Venous 23.1(L) 25.0 - 50.0 mmHg 04/09/2024 1:05 PM EST LAB[facility]ATORY [facility] Base Excess, Venous -1.9 -2.0 - 2.0 mmol/L 04/09/2024 1:05 PM EST LAB[facility]ATORY [facility] HGB 10.2(L) 14.0 - 16.8 g/dL 04/09/2024 1:05 PM EST LAB[facility]ATORY [facility] Oxyhemoglobin, Venous 28.9(L) 40.0 - 85.0 % total Hgb 04/09/2024 1:05 PM EST LABORATORY [facility] Carboxyhemoglobi n, Whole Blood 0.7 <=1.5 % total Hgb 04/09/2024 1:05 PM EST LABORATORY [facility] Comment:Smokers: 0-9.0 % Methemoglobin, Whole Blood 0.9 <=1.5 % total Hgb 04/09/2024 1:05 PM EST LAB[facility]ATORY [facility] Reduced Hemoglobin, Venous 69.5 % total Hgb 04/09/2024 1:05 PM EST LAB[facility]ATORY [facility] O2 Content, Venous 4.2(L) 7.0 - 18.0 %vol 04/09/2024 1:05 PM EST LABORATORY [facility] Bicarbonate, Whole Blood 23.7 23.0 - 31.0 mmol/L 04/09/2024 1:05 PM EST LABORATORY [facility] Blood Venous blood specimen / Unknown Venipuncture / Unknown 04/09/2024 12:55 PM EST 04/09/2024 1:01 PM EST us John Villarreal MD LAB BLOOD ORDERABLES Final Re sult LAB[facility]ATORY [facility] [address] [place] [address] * (ABNORMAL) GLUCOSE METER, POINT OF CARE (04/09/2024 10:56 AM EST) Glucose - POCT 155(H) 70 - 120 mg/dL 04/09/2024 11:38 AM EST [facility] Blood Whole blood specimen / Unknown 04/09/2024 10:56 AM EST 04/09/2024 11:38 AM EST us John Villarreal MD LAB POINT OF CARE TE ST DOCKED DEVICE UNSOLICITED RESULTS Final Result Performing Organization Address City/[facility]/ZIP Co de Phone Number [facility] [address] [place] [address] * GLUCOSE METER, POINT OF CARE (04/09/2024 6:41 AM EST) Glucose - POCT 119 70 - 120 mg/dL 04/09/2024 6:49 AM EST [facility] Blood Whole blood specimen / Unknown 04/09/2024 6:41 AM EST 04/09/2024 6:49 AM EST us John Villarreal MD LAB POINT OF CARE TE ST DOCKED DEVICE UNSOLICITED RESULTS Final Result [facility] [address] [place] [address] * (ABNORMAL) HEPATIC FUNCTION PANEL (04/09/2024 4:29 AM EST) Albumin 2.3(L) 3.8 - 5.0 g/dL 04/09/2024 5:03 AM EST LAB[facility]ATORY [facility] AST 36 10 - 50 U/L 04/09/2024 5:03 AM EST LAB[facility]ATORY [facility] Alkaline Phosphatase 479(H) 35 - 130 U/L 04/09/2024 5:03 AM EST LAB[facility]ATORY [facility] ALT 32 10 - 50 U/L 04/09/2024 5:03 AM EST LAB[facility]ORY [facility] Bilirubin, Total 1.0 <=1.2 mg/dL 04/09/2024 5:03 AM EST LABORATORY [facility] Bilirubin, Direct 0.7(H) 0.0 - 0.3 mg/dL 04/09/2024 5:03 AM EST LAB[facility]ATORY [facility] Protein 4.9(L) 6.0 - 8.3 g/dL 04/09/2024 5:03 AM EST LAB[facility]ATORY [facility] Blood Venous blood specimen / Unknown Venipuncture / Unknown 04/09/2024 4:29 AM EST 04/09/2024 4:36 AM EST us Ann Jay PA-C LAB BLOOD ORDERABLES Final R esult LABORATORY [facility] [address] [place] [address] * (ABNORMAL) BASIC METABOLIC PANEL (04/09/2024 4:29 AM EST) BUN 13 6 - 20 mg/dL 04/09/2024 5:03 AM EST LAB[facility]ATORY [facility] CREATININE 0.6 0.6 - 1.2 mg/dL 04/09/2024 5:03 AM EST LAB[facility]ATORY [facility] EGFR >90 >=60 mL/min 04/09/2024 5:03 AM EST LABORATORY [facility] Comment:eGFR is calculated b ased on the CKD-EPI 2020 equation. SODIUM 133(L) 135 - 146 mmol/L 04/09/2024 5:03 AM EST LAB[facility]ATORY [facility] POTASSIUM 3.7 3.5 - 5.1 mmol/L 04/09/2024 5:03 AM EST LAB[facility]ATORY [facility] CHLORIDE 102 98 - 107 mmol/L 04/09/2024 5:03 AM EST LAB[facility]ATORY [facility] CO2 22 22 - 32 mmol/L 04/09/2024 5:03 AM EST LAB[facility]ATORY [facility] ANION GAP 9 7 - 15 mmol/L 04/09/2024 5:03 AM EST LAB[facility]ATORY [facility] GLUCOSE 150(H) 70 - 120 mg/dL 04/09/2024 5:03 AM EST LAB[facility]ATORY [facility] CALCIUM 8.6 8.4 - 10.2 mg/dL 04/09/2024 5:03 AM EST LAB[facility]ATORY [facility] Blood Venous blood specimen / Unknown Venipuncture / Unknown 04/09/2024 4:29 AM EST 04/09/2024 4:36 AM EST Ann Jay PA-C LAB BLOOD ORDERABLES Final R esult LABORATORY [facility] [address] [place] [address] * (ABNORMAL) CBC (04/09/2024 4:29 AM EST) WBC 13.11(H) 4.00 - 10.80 K/uL 04/09/2024 4:45 AM EST LABORATORY [facility] RBC 3.18 4.50 - 5.25 M/uL 04/09/2024 4:45 AM EST LAB[facility]ATORY [facility] HGB 8.9(L) 14.0 - 16.8 g/dL 04/09/2024 4:45 AM EST LAB[facility]ATORY [facility] HCT 28.2(L) 40.0 - 48.4 % 04/09/2024 4:45 AM EST LAB[facility]ATORY [facility] MCV 88.7 82.0 - 99.5 fL 04/09/2024 4:45 AM EST LAB[facility]ATORY [facility] MCH 28.0 27.0 - 34.0 pg 04/09/2024 4:45 AM EST LAB[facility]ATORY [facility] MCHC 31.6 32.0 - 36.0 g/dL 04/09/2024 4:45 AM EST LABORATORY [facility] RDW 18.8 11.5 - 15.5 % 04/09/2024 4:45 AM EST LAB[facility]ATORY [facility] PLT 126(L) 140 - 400 K/uL 04/09/2024 4:45 AM EST LABORATORY [facility] MPV 9.9 6.6 - 11.1 fL 04/09/2024 4:45 AM EST LABORATORY [facility] nRBCs 0 <=0 /100 WBCs 04/09/2024 4:45 AM EST LABORATORY [facility] Blood Venous blood specimen / Unknown Venipuncture / Unknown 04/09/2024 4:29 AM EST 04/09/2024 4:36 AM EST Ann Jay PA-C LAB BLOOD ORDERABLES Final R esult LABORATORY [facility] [address] [place] [address] * (ABNORMAL) GLUCOSE METER, POINT OF CARE (04/08/2024 8:56 PM EST) Glucose - POCT 202(H) 70 - 120 mg/dL 04/08/2024 9:44 PM EST [facility] Blood Whole blood specimen / Unknown 04/08/2024 8:56 PM EST 04/08/2024 9:44 PM EST John Villarreal MD LAB POINT OF CARE TE ST DOCKED DEVICE UNSOLICITED RESULTS Final Result Performing Organization Address City/[facility]/ZIP Co de Phone Number [facility] [address] [place] [address] * (ABNORMAL) GLUCOSE METER, POINT OF CARE (04/08/2024 3:34 PM EST) Glucose - POCT 187(H) 70 - 120 mg/dL 04/08/2024 4:05 PM EST [facility] Blood Whole blood specimen / Unknown 04/08/2024 3:34 PM EST 04/08/2024 4:05 PM EST John Villarreal MD LAB POINT OF CARE TE ST DOCKED DEVICE UNSOLICITED RESULTS Final Result [facility] [address] [place] [address] * XR CHEST 1 VIEW (04/08/2024 2:06 PM EST) Anatomical Region Laterality Modality Chest Computed Radiogr aphy 04/08/2024 2:54 PM EST Impressions 04/08/2024 2:52 PM EST IMPRESSION Similar lateral right upper lobe opacity which may reflect pneumonia superimposed on emphysema. No new pulmonary opacity. Narrative 04/08/2024 2:52 PM EST EXAM XR CHEST 1 VIEW-04/08/2024 2:06 pm HISTORY hypoxia COMPARISON XR CHEST 1 VIEW, ACC: [id number], dated 2024-04-05 00:27:11; CT PULMONARY EMBOLUS W CONTRAST, ACC: [id number], date2024-04-05 08:11:50; RADIOLOGY EXAM - CT (IMAGES ONLY, NO REPORT), ACC: [id number], 2024-04-01 14:34:06 TECHNIQUE Single portable frontal view of the chest. FINDINGS Lines/Tubes: Similar right port catheter. Lungs/Pleura: Hypoventilatory exam. Similar indistinct opacity at the lateral right upper lobe. No new opacity. No discernible pleural effusion or pneumothorax. Heart/Mediastinum: Size and contours are within normal limits. CABG. Bones/Soft Tissues: Median sternotomy. Upper Abdomen: Visualized portions are unremarkable. Procedure Note Omar Alvarado MD - 04/08/2024 EXAM XR CHEST 1 VIEW-04/08/2024 2:06 pm HISTORY hypoxia COMPARISON XR CHEST 1 VIEW, ACC: [id number], date2024-04-05 00:27:11; CT PULMONARY EMBOLUS W CONTRAST, ACC: [id number], 8:11:50; RADIOLOGY EXAM - CT (IMAGES ONLY, NO REPORT), ACC: [id number], [id number] 14:34:06 TECHNIQUE Single portable frontal view of the chest. FINDINGS Lines/Tubes: Similar right port catheter. Lungs/Pleura: Hypoventilatory exam. Similar indistinct opacity at thelateral right upper lobe. No new opacity. No discernible pleuraleffusion or pneumothorax. Heart/Mediastinum: Size and contours are within normal limits. CABG. Bones/Soft Tissues: Median sternotomy. Upper Abdomen: Visualized portions are unremarkable. IMPRESSION IMPRESSION Similar lateral right upper lobe opacity which may reflect pneumoniasuperimposed on emphysema. No new pulmonary opacity. us John Villarreal MD RADIOLOGY ([facility]) Final Result * (ABNORMAL) GLUCOSE METER, POINT OF CARE (04/08/2024 10:34 AM EST) Glucose - POCT 156(H) 70 - 120 mg/dL 04/08/2024 10:59 AM EST [employer] Blood Whole blood specimen / Unknown 04/08/2024 10:34 AM EST 04/08/2024 10:59 AM EST us John Villarreal MD LAB POINT OF CARE TE ST DOCKED DEVICE UNSOLICITED RESULTS Final Result Performing Organization Address City/[facility]/ZIP Co de Phone Number [facility] [address] [place] [address] * (ABNORMAL) GLUCOSE METER, POINT OF CARE (04/08/2024 6:22 AM EST) Glucose - POCT 125(H) 70 - 120 mg/dL 04/08/2024 6:44 AM EST [employer] Blood Whole blood specimen / Unknown 04/08/2024 6:22 AM EST 04/08/2024 6:43 AM EST us John Villarreal MD LAB POINT OF CARE TE ST DOCKED DEVICE UNSOLICITED RESULTS Final Result [facility] [address] [place] [address] * (ABNORMAL) HEPATIC FUNCTION PANEL (04/08/2024 3:17 AM EST) Albumin 2.3(L) 3.8 - 5.0 g/dL 04/08/2024 3:53 AM EST LABORATORY [facility] AST 40 10 - 50 U/L 04/08/2024 3:53 AM EST LAB[facility]ATORY [facility] Alkaline Phosphatase 499(H) 35 - 130 U/L 04/08/2024 3:53 AM EST LAB[facility]ATORY [facility] ALT 41 10 - 50 U/L 04/08/2024 3:53 AM EST LAB[facility]ATORY [facility] Bilirubin, Total 1.3(H) <=1.2 mg/dL 04/08/2024 3:53 AM EST LABORATORY [facility] Bilirubin, Direct 0.9(H) 0.0 - 0.3 mg/dL 04/08/2024 3:53 AM EST LAB[facility]ATORY [facility] Protein 5.0(L) 6.0 - 8.3 g/dL 04/08/2024 3:53 AM EST LAB[facility]ATORY [facility] Blood Blood sample taken from central line / Unknown Venipuncture / Unknown 04/08/2024 3:17 AM EST 04/08/2024 3:24 AM EST us Ann Jay PA-C LAB BLOOD ORDERABLES Final R esult Performing Organization Address City/State/[facility] Co de Phone Number LABORATORY [facility] [address] [place] [address] * (ABNORMAL) BASIC METABOLIC PANEL (04/08/2024 3:17 AM EST) BUN 15 6 - 20 mg/dL 04/08/2024 3:53 AM EST [facility] CREATININE 0.7 0.6 - 1.2 mg/dL 04/08/2024 3:53 AM EST [facility] EGFR >90 >=60 mL/min 04/08/2024 3:53 AM EST [facility] Comment:eGFR is calculated b ased on the CKD-EPI 2020 equation. SODIUM 131(L) 135 - 146 mmol/L 04/08/2024 3:53 AM EST [facility] POTASSIUM 3.6 3.5 - 5.1 mmol/L 04/08/2024 3:53 AM EST [facility] CHLORIDE 100 98 - 107 mmol/L 04/08/2024 3:53 AM EST [facility] CO2 23 22 - 32 mmol/L 04/08/2024 3:53 AM EST [facility] ANION GAP 8 7 - 15 mmol/L 04/08/2024 3:53 AM EST [facility] GLUCOSE 131(H) 70 - 120 mg/dL 04/08/2024 3:53 AM EST [facility] CALCIUM 8.9 8.4 - 10.2 mg/dL 04/08/2024 3:53 AM EST [facility] Blood Blood sample taken from central line / Unknown Venipuncture / Unknown 04/08/2024 3:17 AM EST 04/08/2024 3:24 AM EST Ann Jay PA-C LAB BLOOD ORDERABLES Final R esult [facility] [address] [place] [address] * (ABNORMAL) CBC (04/08/2024 3:17 AM EST) WBC 17.93(H) 4.00 - 10.80 K/uL 04/08/2024 3:33 AM EST [facility] RBC 3.21 4.50 - 5.25 M/uL 04/08/2024 3:33 AM EST [facility] HGB 8.9(L) 14.0 - 16.8 g/dL 04/08/2024 3:33 AM EST [facility] HCT 28.1(L) 40.0 - 48.4 % 04/08/2024 3:33 AM EST [facility] MCV 87.5 82.0 - 99.5 fL 04/08/2024 3:33 AM EST [facility] MCH 27.7 27.0 - 34.0 pg 04/08/2024 3:33 AM EST [facility] MCHC 31.7 32.0 - 36.0 g/dL 04/08/2024 3:33 AM EST [facility] RDW 18.2 11.5 - 15.5 % 04/08/2024 3:33 AM EST [facility] PLT 122(L) 140 - 400 K/uL 04/08/2024 3:33 AM EST [facility] MPV 9.6 6.6 - 11.1 fL 04/08/2024 3:33 AM EST [facility] nRBCs 0 <=0 /100 WBCs 04/08/2024 3:33 AM EST [facility] Blood Blood sample taken from central line / Unknown Venipuncture / Unknown 04/08/2024 3:17 AM EST 04/08/2024 3:24 AM EST us Ann Jay PA-C LAB BLOOD ORDERABLES Final R esult LAB[facility]ATORY [facility] [address] [place] [address] * (ABNORMAL) GLUCOSE METER, POINT OF CARE (04/07/2024 8:55 PM EST) Glucose - POCT 156(H) 70 - 120 mg/dL 04/07/2024 9:03 PM EST [facility] Blood Whole blood specimen / Unknown 04/07/2024 8:55 PM EST 04/07/2024 9:03 PM EST Jesse Stinson MD LAB POINT OF CARE TE ST DOCKED DEVICE UNSOLICITED RESULTS Final Result Performing Organization Address City/[facility]/ZIP Co de Phone Number [facility] [address] [place] [address] * (ABNORMAL) GLUCOSE METER, POINT OF CARE (04/07/2024 3:42 PM EST) Glucose - POCT 233(H) 70 - 120 mg/dL 04/07/2024 3:49 PM EST [place] Blood Whole blood specimen / Unknown 04/07/2024 3:42 PM EST 04/07/2024 3:49 PM EST us Jesse Stinson MD LAB POINT OF CARE TE ST DOCKED DEVICE UNSOLICITED RESULTS Final Result Performing Organization Address City/[facility]/ZIP Co de Phone Number [facility] [address] [place] [address] * (ABNORMAL) GLUCOSE METER, POINT OF CARE (04/07/2024 11:17 AM EST) Glucose - POCT 155(H) 70 - 120 mg/dL 04/07/2024 11:36 AM EST [facility] Blood Whole blood specimen / Unknown 04/07/2024 11:17 AM EST 04/07/2024 11:36 AM EST Jesse Stinson MD LAB POINT OF CARE TE ST DOCKED DEVICE UNSOLICITED RESULTS Final Result [facility] [address] [place] [address] * Central Line (04/07/2024 10:13 AM EST) Narrative Ash Gomez RN - 04/07/2024 10:13 AM EST Ash Gomez RN 04/07/2024 10:14 AM Central Line General Information and Staff: Performed by: Ash Gomez RN Assisted by: Manuel Samano RN Procedure Date/Time: 04/07/2024 10:13 AM Patient Location: Med/Surg 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 Other: Abx Patient identity confirmed: Verbally with patient and arm band Verbal confirmation: MRN, name and date of Verbal consent obtained: Yes Written consent obtained: Yes Consent given by: Patient Understanding of procedure being performed: Yes Understanding of procedure matches verbalized consent: Yes Procedure consent matches procedure scheduled: Yes Allergies reviewed: Yes Site marked: yes Verify correct position: Yes Radiology Studies available/reviewed: yes Relevant Lab Results available/reviewed: yes Required items available: yes Other healthcare professional(s) verbalize(s) agreement with time out: Yes Name(s): Juliano Samano RN Time out: Immediately prior to the procedure a time out was completed Anticoagulation/Anti-platelet therapy: No Procedure Detail: Sterility Preparation: mask worn, sterile gloves worn, cap worn, sterile sheet used, sterile gown worn and full body drape Provider Hand Hygiene: alcohol-based hand rub Medical Reason for Not Performing Maximal Sterile Barrier Technique: No Placement conditions: Elective Patient Position: Supine Prep: Chlorhexidine Local Anesthetic Used: Yes Catheter Type: Power PICC PICC Laterality: Left and Upper PICC Site: Arm PICC Vessel: Basilic Catheter size: 3fr Catheter Total Length (cm): 48 Catheter Internal Length (cm): 48 Catheter External Length (cm): 0 Lot Number: [id number] Number of Lumens: Single lumen Oximetric Catheter?: No Number of Needle Passes: 1 Placement: target vein identified, needle advanced into vein and blood aspirated and guidewire advanced into vein Radiologic Support with Sterile Technique: ultrasound guidance used Sterile gel and probe cover used for ultrasound?: Yes Intravenous Verification: verified by ultrasound and venous blood return Outcomes/Complications: patient tolerated procedure well with no complications PA Catheter Placed?: No Post Insertion: Post Insertion Details: all ports aspirated, all ports flushed easily, guidewire was removed, examined and appears intact and dressing was applied Site cleansed: Chlorhexidine Line secured with: Adhesive Securement Device and Tissue Adhesive Dressing applied: Gel Chlorhexidine Gluconate and Occlusive Tip Confirmation: Tip Confirmation System Tip Location: SVC and Line Ok to use Attestation: Attestation: I personally performed the procedure myself Additional Comments: Prior to insertion both guide wire and PICC Line wire inspected and found to be intact. Upon completion of procedure again both wires inspected and found to be intact (Guide wire measuring 50.25cm in total and completely intact). All witnessed by myself and my PICC Assist. us Jesse Stinson MD ANESTHESIA Final Result * (ABNORMAL) GLUCOSE METER, POINT OF CARE (04/07/2024 6:54 AM EST) [facility] Glucose - POCT 163(H) 70 - 120 mg/dL 04/07/2024 6:56 AM EST [facility] Blood Whole blood specimen / Unknown 04/07/2024 6:54 AM EST 04/07/2024 6:56 AM EST us Jesse Stinson MD LAB POINT OF CARE TE ST DOCKED DEVICE UNSOLICITED RESULTS Final Result [facility] [employer] [facility] [address] [place] [address] * (ABNORMAL) GLUCOSE METER, POINT OF CARE (04/07/2024 6:01 AM EST) [facility] Glucose - POCT 141(H) 70 - 120 mg/dL 04/07/2024 6:46 AM EST [facility] Blood Whole blood specimen / Unknown 04/07/2024 6:01 AM EST 04/07/2024 6:46 AM EST Jesse Stinson MD LAB POINT OF CARE TE ST DOCKED DEVICE UNSOLICITED RESULTS Final Result Performing Organization Address City/[facility] Co de Phone Number [facility] [address] [place] [address] * EKG (04/07/2024 5:45 AM EST) 04/07/2024 5:45 AM EST Narrative Procedure Note Spencer Pierce, DO - 04/07/2024 5:45 AM EST REASON FOR STUDY: CONCLUSIONS: Warning: interpretation of this ECG, although attempted, may be adverselyaffected by data quality Sinus tachycardia with Premature supraventricular complexes ST & T wave abnormality, consider anterolateral ischemia When compared with ECG of 05-Apr-2024 00:09, Premature supraventricular complexes are now Present T wave inversion less evident in Lateral leads Ventricular Rate: 146 Atrial Rate: 146 IA Interval: 144 QRS Duration: 86 QT/QTc: 362/564 ms P-R-T [place]: 90 : 61 : 17 degrees us Ann Jay PA-C EKG Final Result Performing Organization Address City/[facility] Co de Phone Number [facility] CARDIOLOGY * (ABNORMAL) HEPATIC FUNCTION PANEL (04/07/2024 5:10 AM EST) Albumin 2.4(L) 3.8 - 5.0 g/dL 04/07/2024 5:48 AM EST [facility] AST 53(H) 10 - 50 U/L 04/07/2024 5:48 AM EST [facility] Alkaline Phosphatase 555(H) 35 - 130 U/L 04/07/2024 5:48 AM EST [facility] ALT 46 10 - 50 U/L 04/07/2024 5:48 AM EST [facility] Bilirubin, Total 1.0 <=1.2 mg/dL 04/07/2024 5:48 AM EST [facility] Bilirubin, Direct 0.8(H) 0.0 - 0.3 mg/dL 04/07/2024 5:48 AM EST [facility] Protein 5.1(L) 6.0 - 8.3 g/dL 04/07/2024 5:48 AM EST [facility] Blood Venous blood specimen / Unknown Venipuncture / Unknown 04/07/2024 5:10 AM EST 04/07/2024 5:18 AM EST Ann Jay PA-C LAB BLOOD ORDERABLES Final R esult [facility] [address] [place] [address] * (ABNORMAL) BASIC METABOLIC PANEL (04/07/2024 5:10 AM EST) BUN 17 6 - 20 mg/dL 04/07/2024 5:48 AM EST [facility] CREATININE 0.7 0.6 - 1.2 mg/dL 04/07/2024 5:48 AM EST [facility] EGFR >90 >=60 mL/min 04/07/2024 5:48 AM EST [facility] Comment:eGFR is calculated b ased on the CKD-EPI 2020 equation. SODIUM 134(L) 135 - 146 mmol/L 04/07/2024 5:48 AM EST [facility] POTASSIUM 3.6 3.5 - 5.1 mmol/L 04/07/2024 5:48 AM EST [facility] CHLORIDE 103 98 - 107 mmol/L 04/07/2024 5:48 AM EST [facility] CO2 22 22 - 32 mmol/L 04/07/2024 5:48 AM EST [facility] ANION GAP 9 7 - 15 mmol/L 04/07/2024 5:48 AM EST [facility] GLUCOSE 150(H) 70 - 120 mg/dL 04/07/2024 5:48 AM EST [facility] CALCIUM 9.1 8.4 - 10.2 mg/dL 04/07/2024 5:48 AM EST [facility] Blood Venous blood specimen / Unknown Venipuncture / Unknown 04/07/2024 5:10 AM EST 04/07/2024 5:18 AM EST us Ann Jay PA-C LAB BLOOD ORDERABLES Final R esult Performing Organization Address City/[facility]/ZIP Co de Phone Number [facility] [address] [place] [address] * (ABNORMAL) CBC (04/07/2024 5:10 AM EST) WBC 4.87 4.00 - 10.80 K/uL 04/07/2024 5:28 AM EST [facility] RBC 3.63 4.50 - 5.25 M/uL 04/07/2024 5:28 AM EST [facility] HGB 10.4(L) 14.0 - 16.8 g/dL 04/07/2024 5:28 AM EST [facility] HCT 31.9(L) 40.0 - 48.4 % 04/07/2024 5:28 AM EST [facility] MCV 87.9 82.0 - 99.5 fL 04/07/2024 5:28 AM EST [facility] MCH 28.7 27.0 - 34.0 pg 04/07/2024 5:28 AM EST [facility] MCHC 32.6 32.0 - 36.0 g/dL 04/07/2024 5:28 AM EST [facility] RDW 18.0 11.5 - 15.5 % 04/07/2024 5:28 AM EST [facility] PLT 148 140 - 400 K/uL 04/07/2024 5:28 AM EST [facility] MPV 9.9 6.6 - 11.1 fL 04/07/2024 5:28 AM EST [facility] nRBCs 0 <=0 /100 WBCs 04/07/2024 5:28 AM EST [facility] Blood Venous blood specimen / Unknown Venipuncture / Unknown 04/07/2024 5:10 AM EST 04/07/2024 5:18 AM EST Ann Jay PA-C LAB BLOOD ORDERABLES Final R esult Performing Organization Address City/[facility]/ZIP Co de Phone Number [facility] [address] [place] [address] * (ABNORMAL) GLUCOSE METER, POINT OF CARE (04/06/2024 9:59 PM EST) Glucose - POCT 177(H) 70 - 120 mg/dL 04/06/2024 10:52 PM EST [facility] Blood Whole blood specimen / Unknown 04/06/2024 9:59 PM EST 04/06/2024 10:52 PM EST Jesse Stinson MD LAB POINT OF CARE TE ST DOCKED DEVICE UNSOLICITED RESULTS Final Result [facility] [address] [place] [address] * (ABNORMAL) GLUCOSE METER, POINT OF CARE (04/06/2024 4:07 PM EST) Glucose - POCT 229(H) 70 - 120 mg/dL 04/06/2024 4:22 PM EST [facility] Blood Whole blood specimen / Unknown 04/06/2024 4:07 PM EST 04/06/2024 4:22 PM EST Jesse Stinson MD LAB POINT OF CARE TE ST DOCKED DEVICE UNSOLICITED RESULTS Final Result Performing Organization Address City/[facility]/ZIP Co de Phone Number [facility] [address] [place] [address] * VASC DUPLEX VENOUS LE BILAT (04/06/2024 2:16 PM EST) Anatomical Region Laterality Modality Lower Extremity, Vascular Ultras ound Impressions 04/06/2024 2:40 PM EST : Right lower extremity with no evidence of acute deep venous thrombosis. Left lower extremity with no evidence of acute deep venous thrombosis. Narrative 04/06/2024 2:40 PM EST VASCULAR LAB RESULTS DATE OF EXAM: 04/06/24 PRESENTING CONDITIONS: Edema, Unspecified Immediately before proceeding with the vascular lab procedure reported below, the identity of the patient, the correct exam and the correct procedural site were verified. PHYSICIAN REPORT: Lower Extremity Venous Duplex Examination Color flow Doppler, spectral analysis, and transducer compression techniques were applied during this ultrasound image examination. RIGHT LOWER EXTREMITY On duplex examination, the right common femoral vein, the sapheno-femoral junction, the femoral vein in the thigh and popliteal vein are all free of internal echoes and demonstrate normal transducer compressibility during payton scale imaging and normal respiratory and augmentation response during Doppler interrogation. The posterior tibial veins and peroneal veins demonstrate no evidence of thrombosis. LEFT LOWER EXTREMITY On duplex examination, the left common femoral vein, the sapheno-femoral junction, the femoral vein in the thigh, and popliteal vein are all free of internal echoes and demonstrate normal transducer compressibility during payton scale imaging and normal respiratory and augmentation response during Doppler interrogation. The posterior tibial veins and peroneal veins demonstrate no evidence of thrombosis. Jesse Stinson MD RAD VASCULAR Final Result * (ABNORMAL) GLUCOSE METER, POINT OF CARE (04/06/2024 10:56 AM EST) [facility] Glucose - POCT 237(H) 70 - 120 mg/dL 04/06/2024 11:12 AM EST [facility] Blood Whole blood specimen / Unknown 04/06/2024 10:56 AM EST 04/06/2024 11:12 AM EST Jesse Stinson MD LAB POINT OF CARE TE ST DOCKED DEVICE UNSOLICITED RESULTS Final Result [facility] [address] [place] [address] * (ABNORMAL) HEPATIC FUNCTION PANEL (04/06/2024 7:00 AM EST) [facility] Albumin 2.4(L) 3.8 - 5.0 g/dL 04/06/2024 7:37 AM EST [facility] AST 45 10 - 50 U/L 04/06/2024 7:37 AM EST [facility] Alkaline Phosphatase 499(H) 35 - 130 U/L 04/06/2024 7:37 AM EST [facility] ALT 43 10 - 50 U/L 04/06/2024 7:37 AM EST [facility] Bilirubin, Total 0.9 <=1.2 mg/dL 04/06/2024 7:37 AM EST [facility] Bilirubin, Direct 0.7(H) 0.0 - 0.3 mg/dL 04/06/2024 7:37 AM EST [facility] Protein 5.1(L) 6.0 - 8.3 g/dL 04/06/2024 7:37 AM EST [facility] Blood Venous blood specimen / Unknown Venipuncture / Unknown 04/06/2024 7:00 AM EST 04/06/2024 7:11 AM EST us Ann Jay PA-C LAB BLOOD ORDERABLES Final R esult [facility] [address] [place] [address] * (ABNORMAL) BASIC METABOLIC PANEL (04/06/2024 7:00 AM EST) BUN 27(H) 6 - 20 mg/dL 04/06/2024 7:37 AM EST [facility] CREATININE 1.0 0.6 - 1.2 mg/dL 04/06/2024 7:37 AM EST [facility] EGFR 76 >=60 mL/min 04/06/2024 7:37 AM EST [facility] Comment:eGFR is calculated b ased on the CKD-EPI 2020 equation. SODIUM 130(L) 135 - 146 mmol/L 04/06/2024 7:37 AM EST [facility] POTASSIUM 3.5 3.5 - 5.1 mmol/L 04/06/2024 7:37 AM EST [facility] CHLORIDE 99 98 - 107 mmol/L 04/06/2024 7:37 AM EST [facility] CO2 22 22 - 32 mmol/L 04/06/2024 7:37 AM EST [facility] ANION GAP 9 7 - 15 mmol/L 04/06/2024 7:37 AM EST [facility] GLUCOSE 247(H) 70 - 120 mg/dL 04/06/2024 7:37 AM EST [facility] CALCIUM 9.0 8.4 - 10.2 mg/dL 04/06/2024 7:37 AM EST [facility] Blood Venous blood specimen / Unknown Venipuncture / Unknown 04/06/2024 7:00 AM EST 04/06/2024 7:11 AM EST Ann Jay PA-C LAB BLOOD ORDERABLES Final R esult [facility] [address] [place] [address] * (ABNORMAL) CBC (04/06/2024 7:00 AM EST) WBC 19.52(H) 4.00 - 10.80 K/uL 04/06/2024 7:21 AM EST [facility] RBC 3.44 4.50 - 5.25 M/uL 04/06/2024 7:21 AM EST [facility] HGB 9.7(L) 14.0 - 16.8 g/dL 04/06/2024 7:21 AM EST [facility] HCT 30.1(L) 40.0 - 48.4 % 04/06/2024 7:21 AM EST [facility] MCV 87.5 82.0 - 99.5 fL 04/06/2024 7:21 AM EST [facility] MCH 28.2 27.0 - 34.0 pg 04/06/2024 7:21 AM EST [facility] MCHC 32.2 32.0 - 36.0 g/dL 04/06/2024 7:21 AM EST [facility] RDW 18.1 11.5 - 15.5 % 04/06/2024 7:21 AM EST [facility] PLT 184 140 - 400 K/uL 04/06/2024 7:21 AM EST [facility] MPV 10.1 6.6 - 11.1 fL 04/06/2024 7:21 AM EST [facility] nRBCs 0 <=0 /100 WBCs 04/06/2024 7:21 AM EST [facility] Blood Venous blood specimen / Unknown Venipuncture / Unknown 04/06/2024 7:00 AM EST 04/06/2024 7:11 AM EST Ann Jay PA-C LAB BLOOD ORDERABLES Final R esult LABORATORY [facility] [address] [place] [address] * (ABNORMAL) GLUCOSE METER, POINT OF CARE (04/06/2024 6:55 AM EST) Glucose - POCT 209(H) 70 - 120 mg/dL 04/06/2024 7:11 AM EST [employer] Blood Whole blood specimen / Unknown 04/06/2024 6:55 AM EST 04/06/2024 7:11 AM EST Jesse Stinson MD LAB POINT OF CARE TE ST DOCKED DEVICE UNSOLICITED RESULTS Final Result Performing Organization Address [facility]/ZIP Co de Phone Number [facility] [address] [place] [address] * (ABNORMAL) GLUCOSE METER, POINT OF CARE (04/06/2024 1:27 AM EST) Glucose - POCT 311(H) 70 - 120 mg/dL 04/06/2024 1:34 AM EST [employer] Blood Whole blood specimen / Unknown 04/06/2024 1:27 AM EST 04/06/2024 1:33 AM EST Jesse Stinson MD LAB POINT OF CARE TE ST DOCKED DEVICE UNSOLICITED RESULTS Final Result Performing Organization Address City/[facility]/ZIP Co de Phone Number [facility] [address] [place] [address] * (ABNORMAL) GLUCOSE METER, POINT OF CARE (04/05/2024 10:48 PM EST) Glucose - POCT 413(H) 70 - 120 mg/dL 04/05/2024 10:51 PM EST [facility] Blood Whole blood specimen / Unknown 04/05/2024 10:48 PM EST 04/05/2024 10:51 PM EST Jesse Stinson MD LAB POINT OF CARE TE ST DOCKED DEVICE UNSOLICITED RESULTS Final Result Performing Organization Address City/[facility]/ZIP Co de Phone Number [facility] [address] [place] [address] * (ABNORMAL) GLUCOSE METER, POINT OF CARE (04/05/2024 9:26 PM EST) Glucose - POCT 393(H) 70 - 120 mg/dL 04/05/2024 10:02 PM EST [facility] Blood Whole blood specimen / Unknown 04/05/2024 9:26 PM EST 04/05/2024 10:02 PM EST Jesse Stinson MD LAB POINT OF CARE TE ST DOCKED DEVICE UNSOLICITED RESULTS Final Result Performing Organization Address [facility] Co de Phone Number [facility] [address] [place] [address] * (ABNORMAL) GLUCOSE METER, POINT OF CARE (04/05/2024 4:12 PM EST) Glucose - POCT 305(H) 70 - 120 mg/dL 04/05/2024 4:36 PM EST [facility] Blood Whole blood specimen / Unknown 04/05/2024 4:12 PM EST 04/05/2024 4:36 PM EST Jesse Stinson MD LAB POINT OF CARE TE ST DOCKED DEVICE UNSOLICITED RESULTS Final Result [facility] [address] [place] [address] * LACTATE (04/05/2024 1:41 PM EST) Lactate 1.9 0.4 - 2.0 mmol/L 04/05/2024 2:11 PM EST [facility] Blood Venous blood specimen / Unknown Venipuncture / Unknown 04/05/2024 1:41 PM EST 04/05/2024 1:47 PM EST us Jesse Stinson MD LAB BLOOD ORDERABLES Final Resu lt LABORATORY [facility] [address] [place] [address] * (ABNORMAL) GLUCOSE METER, POINT OF CARE (04/05/2024 11:20 AM EST) Glucose - POCT 262(H) 70 - 120 mg/dL 04/05/2024 4:35 PM EST [facility] [employer] [facility] Blood Whole blood specimen / Unknown 04/05/2024 11:20 AM EST 04/05/2024 4:35 PM EST us Jesse Stinson MD LAB POINT OF CARE TE ST DOCKED DEVICE UNSOLICITED RESULTS Final Result Performing Organization Address City/[facility]/ZIP Co de Phone Number [facility] [address] [place] [address] * CT PULMONARY EMBOLUS W CONTRAST (04/05/2024 8:23 AM EST) Anatomical Region Laterality Modality Chest, Cardio, Body Computed Miguel ography 04/05/2024 9:10 AM EST Impressions 04/05/2024 9:13 AM EST IMPRESSION 1. Acute pulmonary emboli involving the left posterior segmental and right posterior subsegmental pulmonary arteries. No evidence of right heart strain. 2. Patchy right upper lobe ground glass opacities likely pneumonia, unchanged. 3. 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 4. Redemonstrated dilated gallbladder with pericholecystic fluid wall thickening which could be reactive, however cannot exclude acute cholecystitis. If there is clinical concern, consider a HIDA scan. #1 findings were communicated via secure HIPAA compliant text by Dr. Lonny Petty at 9:08 am on 04/05/2024 to Jesse Ballesteros , who expressed understanding. I have personally reviewed this examination and agree with the resident/fellow physician's interpretation. Narrative 04/05/2024 9:13 AM EST EXAM EXAM: CT PULMONARY EMBOLUS W CONTRAST DATE and TIME: 04/05/2024 8:23 am HISTORY CLINICAL INFORMATION: dyspnea, hypercoaguable, tachycardic TECHNIQUE Axial images of the chest were obtained per CT PE protocol. There is satisfactory opacification of pulmonary arteries. Sagittal and coronal multiplanar in addition to MIP reconstructions are provided. COMPARISON None FINDINGS Pulmonary arteries: Filling defects in the left posterior segmental (image 141 series 4) and right posterior subsegmental (image 148 series 4) pulmonary arteries. Lines and devices: Right chest wall left MediPort terminating at the cavoatrial junction. Lungs and pleura: Moderate emphysema. Patchy peripheral predominant ground- glass consolidations in the right upper lobe, unchanged compared prior exam 04/03/2024. Similar small bilateral pleural effusions. Numerous tiny pulmonary nodules. Trachea and bronchi: Thickening of the bronchi wall suggestive of chronic bronchitis. Distal small airway mucous plugging. Mediastinum, kulwant and lymph nodes: No lymphadenopathy. Heart and pericardium: Normal in size. No pericardial effusion. No evidence of right heart strain. Vessels: Severe atherosclerosis status post CABG. Soft tissues: Unremarkable. Upper abdomen: Numerous hepatic metastases. Similar appearance of pancreatic head mass. Distended gallbladder with pericholecystic fluid and thickened wall. Biliary stent, stable in position. Pneumobilia, unchanged. Bones: Sternotomy wires. Degenerative changes. Procedure Note Chris Thorpe, DO - 04/05/2024 EXAM EXAM: CT PULMONARY EMBOLUS W CONTRAST DATE and TIME: 04/05/2024 8:23 am HISTORY CLINICAL INFORMATION: dyspnea, hypercoaguable, tachycardic TECHNIQUE Axial images of the chest were obtained per CT PE protocol. There issatisfactory opacification of pulmonary arteries. Sagittal and coronal multiplanar in addition to MIP reconstructions areprovided. COMPARISON None FINDINGS Pulmonary arteries: Filling defects in the left posterior segmental ( series 4) and right posterior subsegmental (image 148 series 4)pulmonary arteries. Lines and devices: Right chest wall left MediPort terminating at thecavoatrial junction. Lungs and pleura: Moderate emphysema. Patchy peripheral predominantground-glass consolidations in the right upper lobe, unchanged comparedprior exam 04/03/2024. Similar small bilateral pleural effusions.Numerous tiny pulmonary nodules. Trachea and bronchi: Thickening of the bronchi wall suggestive of chronicbronchitis. Distal small airway mucous plugging. Mediastinum, kulwant and lymph nodes: No lymphadenopathy. Heart and pericardium: Normal in size. No pericardial effusion. Noevidence of right heart strain. Vessels: Severe atherosclerosis status post CABG. Soft tissues: Unremarkable. Upper abdomen: Numerous hepatic metastases. Similar appearance ofpancreatic head mass. Distended gallbladder with pericholecystic fluidand thickened wall. Biliary stent, stable in position. Pneumobilia,unchanged. Bones: Sternotomy wires. Degenerative changes. IMPRESSION IMPRESSION 1. Acute pulmonary emboli involving the left posterior segmental and rightposterior subsegmental pulmonary arteries. No evidence of right heartstrain. 2. Patchy right upper lobe ground glass opacities likely pneumonia,unchanged. 3. 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 4. Redemonstrated dilated gallbladder with pericholecystic fluid wallthickening which could be reactive, however cannot exclude acutecholecystitis. If there is clinical concern, consider a HIDA scan. #1 findings were communicated via secure HIPAA compliant text by Dr.Johnathan Petty at 9:08 am on 04/05/2024 to Jesse Ballesteros , whoexpressed understanding. I have personally reviewed this examination and agree with the resident/fellow physician's interpretation. Ann Jay PA-C RAD CT Final Result * (ABNORMAL) GLUCOSE METER, POINT OF CARE (04/05/2024 6:06 AM EST) Pathologist [facility] [place] Glucose - POCT 147(H) 70 - 120 mg/dL 04/05/2024 6:38 AM EST [facility] [employer] [facility] Blood Whole blood specimen / Unknown 04/05/2024 6:06 AM EST 04/05/2024 6:38 AM EST Jesse Stinson MD LAB POINT OF CARE TE ST DOCKED DEVICE UNSOLICITED RESULTS Final Result [facility] [employer] [facility] [address] [place] [address] * (ABNORMAL) HEPATIC FUNCTION PANEL (04/05/2024 3:16 AM EST) [facility] Albumin 2.5(L) 3.8 - 5.0 g/dL 04/05/2024 4:15 AM EST [facility] AST 59(H) 10 - 50 U/L 04/05/2024 4:15 AM EST [facility] Alkaline Phosphatase 592(H) 35 - 130 U/L 04/05/2024 4:15 AM EST [facility] ALT 48 10 - 50 U/L 04/05/2024 4:15 AM EST [facility] Bilirubin, Total 1.2 <=1.2 mg/dL 04/05/2024 4:15 AM EST [facility] Bilirubin, Direct 0.9(H) 0.0 - 0.3 mg/dL 04/05/2024 4:15 AM EST [facility] Protein 4.8(L) 6.0 - 8.3 g/dL 04/05/2024 4:15 AM EST [facility] Blood Venous blood specimen / Unknown Venipuncture / Unknown 04/05/2024 3:16 AM EST 04/05/2024 3:41 AM EST Ann aJy PA-C LAB BLOOD ORDERABLES Final R esult LAB[facility]ATORY [facility] [address] [place] [address] * (ABNORMAL) BASIC METABOLIC PANEL (04/05/2024 3:16 AM EST) BUN 28(H) 6 - 20 mg/dL 04/05/2024 4:15 AM EST [facility] CREATININE 1.1 0.6 - 1.2 mg/dL 04/05/2024 4:15 AM EST [facility] EGFR 67 >=60 mL/min 04/05/2024 4:15 AM EST [facility] Comment:eGFR is calculated b ased on the CKD-EPI 2020 equation. SODIUM 130(L) 135 - 146 mmol/L 04/05/2024 4:15 AM EST [facility] POTASSIUM 3.1(L) 3.5 - 5.1 mmol/L 04/05/2024 4:15 AM EST [facility] CHLORIDE 99 98 - 107 mmol/L 04/05/2024 4:15 AM EST [facility] CO2 18(L) 22 - 32 mmol/L 04/05/2024 4:15 AM EST [facility] ANION GAP 13 7 - 15 mmol/L 04/05/2024 4:15 AM EST [facility] GLUCOSE 114 70 - 120 mg/dL 04/05/2024 4:15 AM EST [facility] CALCIUM 8.6 8.4 - 10.2 mg/dL 04/05/2024 4:15 AM EST LAB[facility]ATORY [facility] Blood Venous blood specimen / Unknown Venipuncture / Unknown 04/05/2024 3:16 AM EST 04/05/2024 3:41 AM EST Ann Jay PA-C LAB BLOOD ORDERABLES Final R esult Performing Organization Address City/[facility]/ZIP Co de Phone Number LABORATORY [facility] [address] [place] [address] * (ABNORMAL) LACTATE (04/05/2024 3:15 AM EST) Lactate 2.5(H) 0.4 - 2.0 mmol/L 04/05/2024 4:10 AM EST LAB[facility]ORY [facility] Blood Venous blood specimen / Unknown Venipuncture / Unknown 04/05/2024 3:15 AM EST 04/05/2024 3:41 AM EST Ann Jay PA-C LAB BLOOD ORDERABLES Final R esult Performing Organization Address [facility]/ZIP Co de Phone Number LABORATORY [facility] [address] [place] [address] * (ABNORMAL) CBC (04/05/2024 3:15 AM EST) WBC 13.38(H) 4.00 - 10.80 K/uL 04/05/2024 3:59 AM EST [facility]ORY [facility] RBC 3.12 4.50 - 5.25 M/uL 04/05/2024 3:59 AM EST [facility] HGB 8.9(L) 14.0 - 16.8 g/dL 04/05/2024 3:59 AM EST [facility] HCT 27.4(L) 40.0 - 48.4 % 04/05/2024 3:59 AM EST [facility] MCV 87.8 82.0 - 99.5 fL 04/05/2024 3:59 AM EST LAB[facility] MCH 28.5 27.0 - 34.0 pg 04/05/2024 3:59 AM EST LAB[facility] MCHC 32.5 32.0 - 36.0 g/dL 04/05/2024 3:59 AM EST [facility] RDW 17.4 11.5 - 15.5 % 04/05/2024 3:59 AM EST [facility] PLT 174 140 - 400 K/uL 04/05/2024 3:59 AM EST LAB[facility] MPV 9.7 6.6 - 11.1 fL 04/05/2024 3:59 AM EST [facility]ORY [facility] nRBCs 0 <=0 /100 WBCs 04/05/2024 3:59 AM EST [facility] Blood Venous blood specimen / Unknown Venipuncture / Unknown 04/05/2024 3:15 AM EST 04/05/2024 3:41 AM EST us Ann Jay PA-C LAB BLOOD ORDERABLES Final R esult LABORATORY [facility] [address] [place] [address] * XR CHEST 1 VIEW (04/05/2024 12:38 AM EST) Anatomical Region Laterality Modality Chest Computed Radiogr aphy 04/05/2024 4:25 AM EST Impressions 04/05/2024 4:23 AM EST IMPRESSION Redemonstration of interstitial and possible nodular scarring in the right upper lobe with superimposed pneumonia difficult to entirely exclude. However, aeration in this region appears slightly improved compared to prior. Narrative 04/05/2024 4:23 AM EST EXAM XR CHEST 1 VIEW-04/05/2024 12:38 am HISTORY dyspnea COMPARISON CT CHEST_ABDOMEN_PELVIS WITH IV CONTRAST WITHOUT ORAL CONTRAST, ACC: [id number], dated 2024-04-03 17:16:05; XR CHEST 2 VIEWS, ACC: [id number], dated 2024-04-01 10:20:39; XR CHEST 2 VIEWS, ACC: [id number], dated 2019-03-03 11:15:04 TECHNIQUE Chest, AP view. 1 image(s). FINDINGS Support Devices: Right IJ infusion port catheter in stable position. Lungs/pleura: There is redemonstration of interstitial and possible nodular scarring in the right upper lobe with superimposed pneumonia difficult to entirely exclude. However, aeration in this region appears slightly improved compared to prior. Background COPD changes are present, better appreciated on the previous CT. No new confluent infiltrate/consolidation. No sizable pleural effusion or pneumothorax. Cardiomediastinal: Median sternotomy changes and post-surgical changes of/about the heart, suggesting previous CABG. Otherwise, stable cardiac and mediastinal contours. Bones/soft tissues: No acute abnormality. Other findings: None. Procedure Note David Solares MD - 04/05/2024 EXAM XR CHEST 1 VIEW-04/05/2024 12:38 am HISTORY dyspnea COMPARISON CT CHEST_ABDOMEN_PELVIS WITH IV CONTRAST WITHOUT ORAL CONTRAST, [id number], dated 2024-04-03 17:16:05; XR CHEST 2 VIEWS, ACC: [id number], dated 2024-04-01 10:20:39; XR CHEST 2 VIEWS, ACC: [id number], dated 2019-03-03 11:15:04 TECHNIQUE Chest, AP view. 1 image(s). FINDINGS Support Devices: Right IJ infusion port catheter in stable position. Lungs/pleura: There is redemonstration of interstitial and possiblenodular scarring in the right upper lobe with superimposed pneumoniadifficult to entirely exclude. However, aeration in this region appearsslightly improved compared to prior. Background COPD changes are present,better appreciated on the previous CT. No new confluentinfiltrate/consolidation. No sizable pleural effusion or pneumothorax. Cardiomediastinal: Median sternotomy changes and post-surgical changesof/about the heart, suggesting previous CABG. Otherwise, stable cardiacand mediastinal contours. Bones/soft tissues: No acute abnormality. Other findings: None. IMPRESSION IMPRESSION Redemonstration of interstitial and possible nodular scarring in the rightupper lobe with superimposed pneumonia difficult to entirely exclude.However, aeration in this region appears slightly improved compared toprior. us Ann Jay PA-C RADIOLOGY (RAD GENERAL) Consuelo l Result * (ABNORMAL) HEPATIC FUNCTION PANEL (04/05/2024 12:24 AM EST) Albumin 2.5(L) 3.8 - 5.0 g/dL 04/05/2024 12:57 AM EST [facility] AST 79(H) 10 - 50 U/L 04/05/2024 12:57 AM EST [facility] Alkaline Phosphatase 854(H) 35 - 130 U/L 04/05/2024 12:57 AM EST [facility] ALT 66(H) 10 - 50 U/L 04/05/2024 12:57 AM EST [facility] Bilirubin, Total 1.3(H) <=1.2 mg/dL 04/05/2024 12:57 AM EST [facility] Bilirubin, Direct 1.0(H) 0.0 - 0.3 mg/dL 04/05/2024 12:57 AM EST [facility] Protein 5.8(L) 6.0 - 8.3 g/dL 04/05/2024 12:57 AM EST [facility] Blood Venous blood specimen / Unknown Venipuncture / Unknown 04/05/2024 12:24 AM EST 04/05/2024 12:28 AM EST Ann Jay PA-C LAB BLOOD ORDERABLES Final R esult LABORATORY [facility] [address] [place] [address] * (ABNORMAL) BASIC METABOLIC PANEL (04/05/2024 12:24 AM EST) BUN 28(H) 6 - 20 mg/dL 04/05/2024 12:57 AM EST [facility] CREATININE 1.2 0.6 - 1.2 mg/dL 04/05/2024 12:57 AM EST [facility] EGFR 63 >=60 mL/min 04/05/2024 12:57 AM EST LAB[facility]ORY [facility] Comment:eGFR is calculated b ased on the CKD-EPI 2020 equation. SODIUM 129(L) 135 - 146 mmol/L 04/05/2024 12:57 AM EST [facility] POTASSIUM 3.5 3.5 - 5.1 mmol/L 04/05/2024 12:57 AM EST [facility] CHLORIDE 97(L) 98 - 107 mmol/L 04/05/2024 12:57 AM EST [facility] CO2 18(L) 22 - 32 mmol/L 04/05/2024 12:57 AM EST [facility] ANION GAP 14 7 - 15 mmol/L 04/05/2024 12:57 AM EST [facility] GLUCOSE 115 70 - 120 mg/dL 04/05/2024 12:57 AM EST [facility] CALCIUM 9.1 8.4 - 10.2 mg/dL 04/05/2024 12:57 AM EST [facility] Blood Venous blood specimen / Unknown Venipuncture / Unknown 04/05/2024 12:24 AM EST 04/05/2024 12:28 AM EST Ann Jay PA-C LAB BLOOD ORDERABLES Final R esult Performing Organization Address City/[facility] Co de Phone Number LABORATORY [facility] [address] [place] [address] * (ABNORMAL) LACTATE (04/05/2024 12:24 AM EST) Lactate 4.7(HH) 0.4 - 2.0 mmol/L 04/05/2024 12:57 AM EST [facility] Blood Venous blood specimen / Unknown Venipuncture / Unknown 04/05/2024 12:24 AM EST 04/05/2024 12:28 AM EST Ann Jay PA-C LAB BLOOD ORDERABLES Final R esult Performing Organization Address City/[facility]/ZIP Co de Phone Number LAB[facility]ATORY [facility] [address] [place] [address] * (ABNORMAL) CBC (04/05/2024 12:24 AM EST) WBC 12.01(H) 4.00 - 10.80 K/uL 04/05/2024 12:36 AM EST LAB[facility] RBC 3.85 4.50 - 5.25 M/uL 04/05/2024 12:36 AM EST [facility] HGB 11.0(L) 14.0 - 16.8 g/dL 04/05/2024 12:36 AM EST [facility] HCT 34.2(L) 40.0 - 48.4 % 04/05/2024 12:36 AM EST [facility] MCV 88.8 82.0 - 99.5 fL 04/05/2024 12:36 AM EST [facility] MCH 28.6 27.0 - 34.0 pg 04/05/2024 12:36 AM EST LAB[facility] MCHC 32.2 32.0 - 36.0 g/dL 04/05/2024 12:36 AM EST LAB[facility] RDW 17.5 11.5 - 15.5 % 04/05/2024 12:36 AM EST LAB[facility] PLT 218 140 - 400 K/uL 04/05/2024 12:36 AM EST LAB[facility] MPV 9.3 6.6 - 11.1 fL 04/05/2024 12:36 AM EST [facility] nRBCs 0 <=0 /100 WBCs 04/05/2024 12:36 AM EST [facility] Blood Venous blood specimen / Unknown Venipuncture / Unknown 04/05/2024 12:24 AM EST 04/05/2024 12:28 AM EST us Ann Jay PA-C LAB BLOOD ORDERABLES Final R esult Performing Organization Address City/State/[facility] Co de Phone Number LABORATORY [facility] [address] [place] [address] * (ABNORMAL) BLOOD GAS, VENOUS (04/05/2024 12:24 AM EST) Temperature 37.0 C 04/05/2024 12:33 AM EST LAB[facility]ORY [facility] pH, Venous 7.301(L) 7.320 - 7.430 units 04/05/2024 12:33 AM EST LAB[facility] pCO2, Venous 44.4 40.0 - 60.0 mmHg 04/05/2024 12:33 AM EST LAB[facility] pO2, Venous 18.7(L) 25.0 - 50.0 mmHg 04/05/2024 12:33 AM EST LAB[facility]ATORY [facility] Base Excess, Venous -4.6(L) -2.0 - 2.0 mmol/L 04/05/2024 12:33 AM EST [facility] HGB 11.7(L) 14.0 - 16.8 g/dL 04/05/2024 12:33 AM EST [facility] Oxyhemoglobin, Venous 18.5(L) 40.0 - 85.0 % total Hgb 04/05/2024 12:33 AM EST LAB[facility] Carboxyhemoglobi n, Whole Blood 0.5 <=1.5 % total Hgb 04/05/2024 12:33 AM EST LAB[facility] Comment:Smokers: 0-9.0 % Methemoglobin, Whole Blood 0.7 <=1.5 % total Hgb 04/05/2024 12:33 AM EST LAB[facility] Reduced Hemoglobin, Venous 80.3 % total Hgb 04/05/2024 12:33 AM EST [facility] O2 Content, Venous 3.1(L) 7.0 - 18.0 %vol 04/05/2024 12:33 AM EST [facility] Bicarbonate, Whole Blood 21.2(L) 23.0 - 31.0 mmol/L 04/05/2024 12:33 AM EST LAB[facility] Blood Venous blood specimen / Unknown Venipuncture / Unknown 04/05/2024 12:24 AM EST 04/05/2024 12:28 AM EST Ann Jay PA-C LAB BLOOD ORDERABLES Final R esult LAB[facility]ATORY [facility] [address] [place] [address] * EKG (04/05/2024 12:09 AM EST) 04/05/2024 12:0 9 AM EST Narrative Procedure Note Juliano John MD - 04/05/2024 12:09 AM EST REASON FOR STUDY: Tachycardia CONCLUSIONS: Sinus tachycardia Cannot rule out Inferior infarct (cited on or before 25-Apr-2023) Marked ST abnormality, possible anterolateral subendocardial injury Abnormal ECG When compared with ECG of 03-Apr-2024 11:08, Vent. rate has increased by 62 bpm Questionable change in The axis ST now depressed in Anterior-lateral leads Ventricular Rate: 151 Atrial Rate: 151 IA Interval: 146 QRS Duration: 88 QT/QTc: 336/532 ms P-R-T [place]: 58 : 67 : 76 degrees Jesse Stinson MD EKG Final Result Performing Organization Address City/[facility]/ZIP Co de Phone Number [facility] CARDIOLOGY * (ABNORMAL) GLUCOSE METER, POINT OF CARE (04/04/2024 9:56 PM EST) Glucose - POCT 156(H) 70 - 120 mg/dL 04/04/2024 9:59 PM EST [facility] Blood Whole blood specimen / Unknown 04/04/2024 9:56 PM EST 04/04/2024 9:59 PM EST Jesse Stinson MD LAB POINT OF CARE TE ST DOCKED DEVICE UNSOLICITED RESULTS Final Result Performing Organization Address [facility] Co de Phone Number [facility] [address] [place] [address] * (ABNORMAL) GLUCOSE METER, POINT OF CARE (04/04/2024 4:45 PM EST) Glucose - POCT 229(H) 70 - 120 mg/dL 04/04/2024 7:00 PM EST [facility] Blood Whole blood specimen / Unknown 04/04/2024 4:45 PM EST 04/04/2024 7:00 PM EST Jesse Stinson MD LAB POINT OF CARE TE ST DOCKED DEVICE UNSOLICITED RESULTS Final Result Performing Organization Address City/[facility] Co de Phone Number [facility] [address] [place] [address] * ELECTROLYTES, RANDOM URINE (04/04/2024 1:47 PM EST) Sodium, Random Urine <20 mmol/L 04/04/2024 3:09 PM EST LABORATORY [facility] Potassium, Random Urine 41.6 mmol/L 04/04/2024 3:09 PM EST LABORATORY [facility] Chloride, Random Urine <20 mmol/L 04/04/2024 3:09 PM EST LABORATORY [facility] Urine Urine specimen / Unknown Non-blood Collection / Unknown 04/04/2024 1:47 PM EST 04/04/2024 1:57 PM EST Jesse Stinson MD LAB URINE ORDERABLES Final Resu lt LABORATORY [facility] [address] [place] [address] * (ABNORMAL) GLUCOSE METER, POINT OF CARE (04/04/2024 11:03 AM EST) Pathologist [facility] [place] Glucose - POCT 307(H) 70 - 120 mg/dL 04/04/2024 1:08 PM EST [facility] Blood Whole blood specimen / Unknown 04/04/2024 11:03 AM EST 04/04/2024 1:08 PM EST us Jesse Stinson MD LAB POINT OF CARE TE ST DOCKED DEVICE UNSOLICITED RESULTS Final Result [facility] [address] [place] [address] * (ABNORMAL) HEPATIC FUNCTION PANEL (04/04/2024 7:30 AM EST) Pathologist [facility] [place] Albumin 2.3(L) 3.8 - 5.0 g/dL 04/04/2024 8:30 AM EST LABORATORY [facility] AST 60(H) 10 - 50 U/L 04/04/2024 8:30 AM EST LABORATORY [facility] Alkaline Phosphatase 577(H) 35 - 130 U/L 04/04/2024 8:30 AM EST LABORATORY [facility] ALT 53(H) 10 - 50 U/L 04/04/2024 8:30 AM EST LABORATORY [facility] Bilirubin, Total 1.1 <=1.2 mg/dL 04/04/2024 8:30 AM EST LAB[facility] Bilirubin, Direct 0.9(H) 0.0 - 0.3 mg/dL 04/04/2024 8:30 AM EST [facility] Protein 5.3(L) 6.0 - 8.3 g/dL 04/04/2024 8:30 AM EST [facility] Blood Venous blood specimen / Unknown Venipuncture / Unknown 04/04/2024 7:30 AM EST 04/04/2024 7:59 AM EST Ann Jay PA-C LAB BLOOD ORDERABLES Final R esult LAB[facility]ATORY [facility] [address] [place] [address] * (ABNORMAL) BASIC METABOLIC PANEL (04/04/2024 7:30 AM EST) BUN 25(H) 6 - 20 mg/dL 04/04/2024 8:30 AM EST [facility] CREATININE 0.9 0.6 - 1.2 mg/dL 04/04/2024 8:30 AM EST [facility] EGFR 82 >=60 mL/min 04/04/2024 8:30 AM EST LAB[facility]ORY [facility] Comment:eGFR is calculated b ased on the CKD-EPI 2020 equation. SODIUM 129(L) 135 - 146 mmol/L 04/04/2024 8:30 AM EST LAB[facility] POTASSIUM 3.8 3.5 - 5.1 mmol/L 04/04/2024 8:30 AM EST LAB[facility] CHLORIDE 99 98 - 107 mmol/L 04/04/2024 8:30 AM EST [facility] CO2 22 22 - 32 mmol/L 04/04/2024 8:30 AM EST [facility] ANION GAP 8 7 - 15 mmol/L 04/04/2024 8:30 AM EST [facility] GLUCOSE 225(H) 70 - 120 mg/dL 04/04/2024 8:30 AM EST [facility] CALCIUM 8.8 8.4 - 10.2 mg/dL 04/04/2024 8:30 AM EST [facility] Blood Venous blood specimen / Unknown Venipuncture / Unknown 04/04/2024 7:30 AM EST 04/04/2024 7:59 AM EST Ann Jay PA-C LAB BLOOD ORDERABLES Final R esult LABORATORY [facility] [address] [place] [address] * (ABNORMAL) CBC (04/04/2024 7:30 AM EST) WBC 16.84(H) 4.00 - 10.80 K/uL 04/04/2024 8:11 AM EST LAB[facility] RBC 3.64 4.50 - 5.25 M/uL 04/04/2024 8:11 AM EST LAB[facility] HGB 10.4(L) 14.0 - 16.8 g/dL 04/04/2024 8:11 AM EST [facility] HCT 31.9(L) 40.0 - 48.4 % 04/04/2024 8:11 AM EST LAB[facility] MCV 87.6 82.0 - 99.5 fL 04/04/2024 8:11 AM EST LAB[facility] MCH 28.6 27.0 - 34.0 pg 04/04/2024 8:11 AM EST LAB[facility] MCHC 32.6 32.0 - 36.0 g/dL 04/04/2024 8:11 AM EST LAB[facility] RDW 17.8 11.5 - 15.5 % 04/04/2024 8:11 AM EST LAB[facility] PLT 289 140 - 400 K/uL 04/04/2024 8:11 AM EST LAB[facility] MPV 9.6 6.6 - 11.1 fL 04/04/2024 8:11 AM EST LAB[facility] nRBCs 0 <=0 /100 WBCs 04/04/2024 8:11 AM EST [facility] Blood Venous blood specimen / Unknown Venipuncture / Unknown 04/04/2024 7:30 AM EST 04/04/2024 7:59 AM EST Ann Jay PA-C LAB BLOOD ORDERABLES Final R esult LABORATORY [facility] [address] [place] [address] * MYCODE SST2 (04/04/2024 7:30 AM EST) MyCode Specimen Freezing of extracted DNA, whole blood and/or serum. 04/06/2024 10:02 AM EST LABORATORY C Blood Venous blood specimen / Unknown Venipuncture / Unknown 04/04/2024 7:30 AM EST 04/04/2024 7:59 AM EST us Amparo Staller CHRA LAB BLOOD ORDERABLES Final Result Performing Organization Address [facility]/ZIP Co de Phone Number LABORATORY [place] [address] [place] [address] * MYCODE SST1 (04/04/2024 7:30 AM EST) MyCode Specimen Freezing of extracted DNA, whole blood and/or serum. 04/06/2024 10:02 AM EST LABORATORY [facility] Blood Venous blood specimen / Unknown Venipuncture / Unknown 04/04/2024 7:30 AM EST 04/04/2024 7:59 AM EST us Amparo Staller CHRA LAB BLOOD ORDERABLES Final Result Performing Organization Address City/[facility]/ZIP Co de Phone Number LABORATORY [place] [address] [place] [address] * MYCODE INITIAL ADULT-PINK (04/04/2024 7:30 AM EST) MyCode Specimen Freezing of extracted DNA, whole blood and/or serum. 04/06/2024 10:02 AM EST LABORATORY C Blood Venous blood specimen / Unknown Venipuncture / Unknown 04/04/2024 7:30 AM EST 04/04/2024 7:58 AM EST us Amparo Staller CHRA LAB BLOOD ORDERABLES Final Result LABORATORY [facility] [address] [place] [address] * (ABNORMAL) GLUCOSE METER, POINT OF CARE (04/04/2024 7:23 AM EST) Glucose - POCT 228(H) 70 - 120 mg/dL 04/04/2024 7:59 AM EST [facility] Blood Whole blood specimen / Unknown 04/04/2024 7:23 AM EST 04/04/2024 7:59 AM EST Jesse Stinson MD LAB POINT OF CARE TE ST DOCKED DEVICE UNSOLICITED RESULTS Final Result [facility] [address] [place] [address] * (ABNORMAL) GLUCOSE METER, POINT OF CARE (04/03/2024 9:55 PM EST) Glucose - POCT 254(H) 70 - 120 mg/dL 04/03/2024 9:58 PM EST [facility] Blood Whole blood specimen / Unknown 04/03/2024 9:55 PM EST 04/03/2024 9:58 PM EST Jesse Stinson MD LAB POINT OF CARE TE ST DOCKED DEVICE UNSOLICITED RESULTS Final Result Performing Organization Address City/[facility]/ZIP Co de Phone Number [facility] [address] [place] [address] * CT CHEST/ABDOMEN/PELVIS WITH IV CONTRAST WITHOUT ORAL CONTRAST (04/03/2024 5:52 PM EST) Anatomical Region Laterality Modality Body, Chest, Abdomen, Pelvis, Cardio Computed Tomography 04/04/2024 3:28 AM EST Impressions 04/04/2024 3:26 AM EST IMPRESSION 1. Findings concerning for cholecystitis. 2. 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 3. Right upper lobe airspace opacity favoring pneumonia. Multiple small pulmonary nodules in both lungs are nonspecific and may be related to infection/inflammation or metastatic disease. Attention on follow-up imaging. 4. Small bilateral pleural effusions with ascites and anasarca. 5. Chronic findings, as above. Added to [facility] result communication system on 04/04/2024 at 3:26 am. Narrative 04/04/2024 3:26 AM EST EXAM EXAM: CT CHEST/ABDOMEN/PELVIS WITH IV CONTRAST WITHOUT ORAL CONTRAST DATE and TIME: 04/03/2024 5:52 pm HISTORY CLINICAL INFORMATION: Pancreatic cancer, to evaluate for mets TECHNIQUE CT chest, abdomen and pelvis was obtained with intravenous and without oral contrast. COMPARISON CT ABD_PELVIS WO IV_ORAL CONTRAST, ACC: [id number], dated 2023-12-31 11:04:40; CT THORAX WITH CONTRAST, ACC: [id number], dated 2014-08-06 08:42:02; XR CHEST 2 VIEWS, ACC: [id number], dated 2024-04-01 10:20:39 FINDINGS LINES AND DEVICES: Right chest wall MediPort terminating near the cavoatrial junction. LUNGS: Centrilobular and paraseptal emphysema. There are mild bilateral atelectatic changes. Nonspecific ground-glass opacity in the right upper lobe. Numerous small sub 7 millimeter pulmonary nodules are noted in both lungs, some of which appear slightly subsolid. Several juxtapleural/juxta fissural subcentimeter lymph nodes are also seen. LARGE AIRWAYS: Unremarkable PLEURA: Small bilateral pleural effusions. VESSELS: Pulmonary trunk is dilated indicative of the sequela of pulmonary arterial hypertension. Prior CABG. Atherosclerotic changes in the aorta and coronary arteries. HEART: Left atrial enlargement. MEDIASTINUM AND KULWANT: No enlarged lymph node. CHEST WALL/SOFT TISSUES: Unremarkable ABDOMEN/PELVIS: LIVER: Numerous hypodense lesions are seen in the liver, grossly similar to the prior examination given absence of IV contrast. BILE DUCTS: Common bile duct stent in place with pneumobilia. GALLBLADDER: Markedly distended gallbladder with gallbladder wall thickening and pericholecystic fluid. PANCREAS: Grossly stable appearance of pancreatic head mass measuring approximally 2.6 x 2.2 cm. There is upstream pancreatic atrophy, similar to prior examination. SPLEEN: Unremarkable ADRENALS: Stable thickening of both adrenal glands. KIDNEYS/URETERS: Punctate nonobstructive left renal calculus. No ureteral calculi or hydronephrosis. BLADDER: Decompressed with Hale catheter in place. BOWEL: Colonic diverticulosis. The presence of ascites limits evaluation for subtle inflammatory changes of the bowel. No obstruction. LYMPH NODES: Small periportal lymph nodes appear unchanged. VESSELS: Prominent atherosclerosis. Patent portal venous system. REPRODUCTIVE ORGANS: Unremarkable PERITONEUM/RETROPERITONEUM: Mild ascites. ABDOMINAL WALL/SOFT TISSUES: Fat and ascites containing bilateral inguinal hernias. Anasarca. Presumed injection sites in the bilateral anterior abdominal wall. BONES: Degenerative changes of the spine and hips. Median sternotomy. No suspicious osseous lesion. Procedure Note Dandy Pitt MD - 04/04/2024 EXAM EXAM: CT CHEST/ABDOMEN/PELVIS WITH IV CONTRAST WITHOUT ORAL CONTRAST DATE and TIME: 04/03/2024 5:52 pm HISTORY CLINICAL INFORMATION: Pancreatic cancer, to evaluate for mets TECHNIQUE CT chest, abdomen and pelvis was obtained with intravenous and withoutoral contrast. COMPARISON CT ABD_PELVIS WO IV_ORAL CONTRAST, ACC: [id number], dated [id number]; CT THORAX WITH CONTRAST, ACC: [id number], dated 2014-08-06 08:42:02; XR CHEST 2 VIEWS, ACC: [id number], dated 2024-04-01 10:20:39 FINDINGS LINES AND DEVICES: Right chest wall MediPort terminating near thecavoatrial junction. LUNGS: Centrilobular and paraseptal emphysema. There are mild bilateralatelectatic changes. Nonspecific ground-glass opacity in the right upperlobe. Numerous small sub 7 millimeter pulmonary nodules are noted in bothlungs, some of which appear slightly subsolid. Several juxtapleural/juxtafissural subcentimeter lymph nodes are also seen. LARGE AIRWAYS: Unremarkable PLEURA: Small bilateral pleural effusions. VESSELS: Pulmonary trunk is dilated indicative of the sequela of pulmonaryarterial hypertension. Prior CABG. Atherosclerotic changes in the aortaand coronary arteries. HEART: Left atrial enlargement. MEDIASTINUM AND KULWANT: No enlarged lymph node. CHEST WALL/SOFT TISSUES: Unremarkable ABDOMEN/PELVIS: LIVER: Numerous hypodense lesions are seen in the liver, grossly similarto the prior examination given absence of IV contrast. BILE DUCTS: Common bile duct stent in place with pneumobilia. GALLBLADDER: Markedly distended gallbladder with gallbladder wallthickening and pericholecystic fluid. PANCREAS: Grossly stable appearance of pancreatic head mass measuringapproximally 2.6 x 2.2 cm. There is upstream pancreatic atrophy, similarto prior examination. SPLEEN: Unremarkable ADRENALS: Stable thickening of both adrenal glands. KIDNEYS/URETERS: Punctate nonobstructive left renal calculus. No ureteralcalculi or hydronephrosis. BLADDER: Decompressed with Hale catheter in place. BOWEL: Colonic diverticulosis. The presence of ascites limits evaluationfor subtle inflammatory changes of the bowel. No obstruction. LYMPH NODES: Small periportal lymph nodes appear unchanged. VESSELS: Prominent atherosclerosis. Patent portal venous system. REPRODUCTIVE ORGANS: Unremarkable PERITONEUM/RETROPERITONEUM: Mild ascites. ABDOMINAL WALL/SOFT TISSUES: Fat and ascites containing bilateral inguinalhernias. Anasarca. Presumed injection sites in the bilateral anteriorabdominal wall. BONES: Degenerative changes of the spine and hips. Median sternotomy. Nosuspicious osseous lesion. IMPRESSION IMPRESSION 1. Findings concerning for cholecystitis. 2. Stable appearance of known pancreatic head mass with numerous hepaticmetastasis. 3. Right upper lobe airspace opacity favoring pneumonia. Multiple smallpulmonary nodules in both lungs are nonspecific and may be related toinfection/inflammation or metastatic disease. Attention on follow-upimaging. 4. Small bilateral pleural effusions with ascites and anasarca. 5. Chronic findings, as above. Added to [facility] result communication system on 04/04/2024 at 3:26 am. Jesse Stinson MD RAD CT Final Result * (ABNORMAL) GLUCOSE METER, POINT OF CARE (04/03/2024 4:27 PM EST) Glucose - POCT 198(H) 70 - 120 mg/dL 04/03/2024 4:35 PM EST [facility] CAMPUSTad[facility] Blood Whole blood specimen / Unknown 04/03/2024 4:27 PM EST 04/03/2024 4:35 PM EST Jesse Stinson MD LAB POINT OF CARE TE ST DOCKED DEVICE UNSOLICITED RESULTS Final Result [facility] [employer] [facility] [facility] [address] [place] [address] * ECHO, COMPLETE (2D), TRANS-THORACIC (04/03/2024 3:02 PM EST) Pathologist [facility], [place] LEFT VENTRICULAR EJECTION FRACTION 40 % [facility] CARDIOLOGY 04/03/2024 2:30 PM EST us Ann Jay PA-C ECHOCARDIOLOGY Final Result [facility] CARDIOLOGY * (ABNORMAL) GLUCOSE METER, POINT OF CARE (04/03/2024 11:16 AM EST) Pathologist [facility] [place] Glucose - POCT 169(H) 70 - 120 mg/dL 04/03/2024 11:25 AM EST [facility] Blood Whole blood specimen / Unknown 04/03/2024 11:16 AM EST 04/03/2024 11:25 AM EST Jesse Stinson MD LAB POINT OF CARE TE ST DOCKED DEVICE UNSOLICITED RESULTS Final Result [facility] [address] [facility] [place] [id number] * (ABNORMAL) HEPATIC FUNCTION PANEL (04/03/2024 7:34 AM EST) Pathologist [facility] [place] Albumin 2.4(L) 3.8 - 5.0 g/dL 04/03/2024 8:26 AM EST [facility] AST 109(H) 10 - 50 U/L 04/03/2024 8:26 AM EST [facility] Alkaline Phosphatase 641(H) 35 - 130 U/L 04/03/2024 8:26 AM EST [facility] ALT 62(H) 10 - 50 U/L 04/03/2024 8:26 AM EST [facility] Bilirubin, Total 1.3(H) <=1.2 mg/dL 04/03/2024 8:26 AM EST [facility] Bilirubin, Direct 1.0(H) 0.0 - 0.3 mg/dL 04/03/2024 8:26 AM EST [facility] Protein 5.5(L) 6.0 - 8.3 g/dL 04/03/2024 8:26 AM EST [facility] Blood Venous blood specimen / Unknown Venipuncture / Unknown 04/03/2024 7:34 AM EST 04/03/2024 7:56 AM EST Ann Jay PA-C LAB BLOOD ORDERABLES Final R esult LABORATORY [facility] [address] [place] [address] * (ABNORMAL) BASIC METABOLIC PANEL (04/03/2024 7:34 AM EST) BUN 25(H) 6 - 20 mg/dL 04/03/2024 8:26 AM EST [facility] CREATININE 0.9 0.6 - 1.2 mg/dL 04/03/2024 8:26 AM EST [facility] EGFR 84 >=60 mL/min 04/03/2024 8:26 AM EST [facility] Comment:eGFR is calculated b ased on the CKD-EPI 2020 equation. SODIUM 131(L) 135 - 146 mmol/L 04/03/2024 8:26 AM EST [facility] POTASSIUM 3.6 3.5 - 5.1 mmol/L 04/03/2024 8:26 AM EST [facility] CHLORIDE 98 98 - 107 mmol/L 04/03/2024 8:26 AM EST [facility] CO2 21(L) 22 - 32 mmol/L 04/03/2024 8:26 AM EST [facility] ANION GAP 12 7 - 15 mmol/L 04/03/2024 8:26 AM EST [facility] GLUCOSE 157(H) 70 - 120 mg/dL 04/03/2024 8:26 AM EST [facility] CALCIUM 8.6 8.4 - 10.2 mg/dL 04/03/2024 8:26 AM EST LABORATORY [facility] Blood Venous blood specimen / Unknown Venipuncture / Unknown 04/03/2024 7:34 AM EST 04/03/2024 7:56 AM EST Ann Jay PA-C LAB BLOOD ORDERABLES Final R esult LABORATORY [facility] [address] [place] [address] * (ABNORMAL) CBC (04/03/2024 7:34 AM EST) [facility] WBC 23.71(H) 4.00 - 10.80 K/uL 04/03/2024 8:08 AM EST LAB[facility]ORY [facility] RBC 3.53 4.50 - 5.25 M/uL 04/03/2024 8:08 AM EST LAB[facility] HGB 10.1(L) 14.0 - 16.8 g/dL 04/03/2024 8:08 AM EST [facility] HCT 31.5(L) 40.0 - 48.4 % 04/03/2024 8:08 AM EST [facility] MCV 89.2 82.0 - 99.5 fL 04/03/2024 8:08 AM EST [facility] MCH 28.6 27.0 - 34.0 pg 04/03/2024 8:08 AM EST LABORATORY [facility] MCHC 32.1 32.0 - 36.0 g/dL 04/03/2024 8:08 AM EST LABORATORY [facility] RDW 17.6 11.5 - 15.5 % 04/03/2024 8:08 AM EST LABORATORY [facility] PLT 357 140 - 400 K/uL 04/03/2024 8:08 AM EST LABORATORY [facility] MPV 9.2 6.6 - 11.1 fL 04/03/2024 8:08 AM EST LABORATORY [facility] nRBCs 0 <=0 /100 WBCs 04/03/2024 8:08 AM EST LABORATORY [facility] Blood Venous blood specimen / Unknown Venipuncture / Unknown 04/03/2024 7:34 AM EST 04/03/2024 7:56 AM EST Ann Jay PA-C LAB BLOOD ORDERABLES Final R esult LABORATORY [facility] [address] [place] [address] * (ABNORMAL) GLUCOSE METER, POINT OF CARE (04/03/2024 6:38 AM EST) [facility] Glucose - POCT 164(H) 70 - 120 mg/dL 04/03/2024 6:46 AM EST [facility] Blood Whole blood specimen / Unknown 04/03/2024 6:38 AM EST 04/03/2024 6:46 AM EST us Jesse Stinson MD LAB POINT OF CARE TE ST DOCKED DEVICE UNSOLICITED RESULTS Final Result [facility] [address] [place] [address] * (ABNORMAL) GLUCOSE METER, POINT OF CARE (04/03/2024 12:32 AM EST) [facility] Glucose - POCT 140(H) 70 - 120 mg/dL 04/03/2024 12:35 AM EST [facility] Blood Whole blood specimen / Unknown 04/03/2024 12:32 AM EST 04/03/2024 12:35 AM EST us Jesse Stinson MD LAB POINT OF CARE TE ST DOCKED DEVICE UNSOLICITED RESULTS Final Result Performing Organization Address [facility]/ZIP Co de Phone Number [facility] [address] [place] [address] * LACTATE (04/02/2024 6:24 PM EST) [facility] Lactate 1.6 0.4 - 2.0 mmol/L 04/02/2024 7:18 PM EST LABORATORY [facility] Blood Venous blood specimen / Unknown Venipuncture / Unknown 04/02/2024 6:24 PM EST 04/02/2024 6:49 PM EST us Marixa Clarke DO LAB BLOOD ORDERABLES Final Resu lt LABORATORY [facility] [address] [place] [address] * CLOSTRIDIUM DIFFICILE, PCR (04/02/2024 5:12 PM EST) [facility] Stool Consistency Semi-formed 04/02/2024 7:23 PM EST LABORATORY [facility] Clostridium difficile Result Negative. No C. difficile toxin B gene DNA detected by PCR (Amplified Probe). Negative 04/02/2024 7:23 PM EST LABORATORY [facility] Stool Stool specimen / Unknown Non-blood Collection / Unknown 04/02/2024 5:12 PM EST 04/02/2024 5:55 PM EST Joanne Armstrong MD LAB MICRO - GENERAL ORDERABLES F inal Result LABORATORY [facility] [address] [place] [address] * XR BILIARY DUCT CATH, ENDOSCOPIC (04/02/2024 4:00 PM EST) Narrative Scheduling, Silent - 04/02/2024 4:01 PM EST This is an imaging study not interpreted or resulted by a [facility] or [facility] contracted radiologist. Mars Anna DO RADIOLOGY (RAD GENERAL) Final Result * ERCP (04/02/2024 3:18 PM EST) 04/02/2024 3:18 PM EST Narrative Procedure Note Uriel Mosqueda DO - 04/02/2024 3:18 PM EST [facility] Patient Name: Mitchel Harmon Procedure Date: 04/02/2024 3:18 PM Date of : 1945 Admit Type: Inpatient Note Status:Finalized Date of : 1945 Admit Type: Inpatient Age: 78 Room: Endo - Room 8 Gender: Male Note Status: Finalized Procedure: ERCP Indications: Stent change Providers: Mars Anna DO (Doctor), Magdiel Mendoza MD(Fellow), Nella Zurita, Equine Manager Referring MD: Uriel Mosqueda MD, Renetta Oh DO Medicines: Monitored Anesthesia Care Complications: No immediate complications. Procedure: Pre-Anesthesia Assessment: - Prior to the procedure, a History and Physicalwas performed, and patient medications and allergies were reviewed. Thepatient's tolerance of previous anesthesia was also reviewed. The risks andbenefits of the procedure and the sedation options and risks were discussed with thepatient. All questions were answered, and informed consent was obtained. PriorAnticoagulants: The patient has taken no anticoagulant or antiplatelet agents. ASAGrade Assessment: III - A patient with severe systemic disease. After reviewing therisks and benefits, the patient was deemed in satisfactory condition to undergo theprocedure. After obtaining informed consent, the scope waspassed under direct vision. All instruments were visually inspected immediatelybefore and after removal from the patient to ensure they are fully intact. Throughoutthe procedure, the patient's blood pressure, pulse, and oxygen saturations weremonitored continuously. The [id number]-[id number] Endoscope ([id number]) was introducedthrough the mouth, and advanced to the duodenum and used to inject contrast into the bileduct. Findings & Specimens: A biliary stent was visible on the milieu manager film. The esophagus wassuccessfully intubated under direct vision. The scope was advanced from the mouth to the duodenum. Thepharynx, larynx and associated structures, as well as the upper GI tract, were normal. A biliarysphincterotomy had been performed. The sphincterotomy appeared open. One plastic stent originating inthe biliary tree was emerging from the major papilla. The stent was visibly occluded. One stent wasremoved from the biliary tree using a snare. A 0.025 inch x 270 cm angled Visiglide wire was passed intothe biliary tree. The 12 mm balloon was passed over the guidewire and the bile duct was then deeplycannulated. Contrast was injected. I personally interpreted the bile duct images. There was brisk flow ofcontrast through the ducts. Image quality was excellent. Contrast extended to the entire biliary tree.Opacification of the entire biliary tree except for the gallbladder was successful. The lowerthird of the main bile duct contained a single localized stenosis 10 mm in length. The biliary tree wasswept with a 9 mm balloon starting at the bifurcation. Pus was swept from the duct. Sludge was swept fromthe duct. One 10 mm by 6 cm covered metal stent with a single external flap and a single internal flapwas placed 5 cm into the common bile duct. Bile and pus flowed through the stent. The stent was in goodposition. Impression: - Prior biliary sphincterotomy appeared open. - One visibly occluded stent from the biliary treewas seen in the major papilla. - A single localized biliary stricture was found inthe lower third of the main bile duct. - One stent was removed from the biliary tree. - The biliary tree was swept and pus and sludgewere found. - One covered metal stent was placed into thecommon bile duct. Recommendation: - [facility] for [facility]. - Repeat ERCP for stent exchange is based on goalsof care discussion. The stent can remain for 6 months before exchange is needed - Rest of recommendations per inpatient consultteam Mars Anna DO 04/02/2024 4:17:07 PM This report has been signed electronically. Magdiel Mendoza MD 04/02/2024 3:59:22 PM Uriel Mosqueda DO GASTRO UPPER Final Res ult * GLUCOSE METER, POINT OF CARE (04/02/2024 11:59 AM EST) Glucose - POCT 101 70 - 120 mg/dL 04/02/2024 12:14 PM EST [facility] Blood Whole blood specimen / Unknown 04/02/2024 11:59 AM EST 04/02/2024 12:14 PM EST Uriel Mosqueda LAB POINT OF CARE TEST DOCKED DEVICE UNSOLICITED RESULTS Final Result [facility] [address] [place] [address] * LACTATE (04/02/2024 11:15 AM EST) Lactate 1.8 0.4 - 2.0 mmol/L 04/02/2024 1:01 PM EST LABORATORY [facility] Blood Venous blood specimen / Unknown Venipuncture / Unknown 04/02/2024 11:15 AM EST 04/02/2024 12:32 PM EST us Marixa Clarke DO LAB BLOOD ORDERABLES Final Resu lt LABORATORY [facility] [address] [place] [address] * RESPIRATORY PATHOGEN PANEL, PCR (04/02/2024 10:59 AM EST) Adenovirus by PCR Negative Negative 025 12:20 PM EST LABORATORY [facility] Coronavirus 229E by PCR Negative Negative 04/02/2024 12:20 PM EST LABORATORY [facility] Coronavirus HKU1 by PCR Negative Negative 04/02/2024 12:20 PM EST LABORATORY [facility] Coronavirus NL63 by PCR Negative Negative 04/02/2024 12:20 PM EST LABORATORY [facility] Coronavirus OC43 by PCR Negative Negative 04/02/2024 12:20 PM EST LABORATORY [facility] Coronavirus SARS-CoV-2 by PCR Negative Negative 04/02/2024 12:20 PM EST LABORATORY [facility] Human Metapneumovirus by PCR Negative Negative 04/02/2024 12:20 PM EST LABORATORY [facility] Rhinovirus/Enterovi renea by PCR Negative Negative 04/02/2024 12:20 PM EST [facility]ORY [facility] Influenza A Virus by PCR Negative Negative 04/02/2024 12:20 PM EST [facility] Influenza B Virus by PCR Negative Negative 04/02/2024 12:20 PM EST [facility] Parainfluenza Virus 1 by PCR Negative Negative 04/02/2024 12:20 PM EST LAB[facility] Parainfluenza Virus 2 by PCR Negative Negative 04/02/2024 12:20 PM EST [facility] Parainfluenza Virus 3 by PCR Negative Negative 04/02/2024 12:20 PM EST LAB[facility] Parainfluenza Virus 4 by PCR Negative Negative 04/02/2024 12:20 PM EST [facility] Respiratory Syncytial Virus by PCR Negative Negative 04/02/2024 12:20 PM EST LAB[facility] Bordetella pertussis by PCR Negative Negative 04/02/2024 12:20 PM EST [facility] Chlamydia pneumoniae by PCR Negative Negative 04/02/2024 12:20 PM EST [facility] Mycoplasma pneumoniae by PCR Negative Negative 04/02/2024 12:20 PM EST LAB[facility] Bordetella parapertussis by PCR Negative Negative 04/02/2024 12:20 PM EST LABORATORY [facility] Comment: The primers that detect Rhinovirus may cross react with some Enterorviruses. The validation of bronchial specimens, tracheal aspirates, and throats for this assay was developed and performance characteristics determined by [employer]. The validation of alternate specimen types has not been cleared or approved by the U.S. Food and Drug Administration (FDA). It has been determined that such clearance or approval is not necessary. Upper Respiratory Mid-turbinate nasal swab / Unknown Non-blood Collection / Unknown 04/02/2024 10:59 AM EST 04/02/2024 11:12 AM EST Joanne Armstrong MD LAB MICRO - GENERAL ORDERABLES F inal Result LABORATORY [facility] [address] [place] [address] * GLUCOSE METER, POINT OF CARE (04/02/2024 5:19 AM EST) [facility] Glucose - POCT 113 70 - 120 mg/dL 04/02/2024 7:03 PM EST [facility] Blood Whole blood specimen / Unknown 04/02/2024 5:19 AM EST 04/02/2024 7:03 PM EST Uriel Mosqueda DO LAB POINT OF CARE TEST DOCKED DEVICE UNSOLICITED RESULTS Final Result [facility] [address] [place] [address] * (ABNORMAL) TROPONIN T, HIGH SENSITIVITY (04/02/2024 4:58 AM EST) [facility] Troponin T, High Sensitivity 533(HH) <=22 ng/L 04/02/2024 5:59 AM EST LABORATORY [facility] Blood Venous blood specimen / Unknown Venipuncture / Unknown 04/02/2024 4:58 AM EST 04/02/2024 5:11 AM EST [facility] LAB BLOOD ORDERABLES Final Resu lt Performing Organization Address City/[facility]/ZIP Co de Phone Number LABORATORY [facility] [address] [place] [address] * (ABNORMAL) LACTATE (04/02/2024 4:58 AM EST) Lactate 2.1(H) 0.4 - 2.0 mmol/L 04/02/2024 5:39 AM EST [facility]ATORY [facility] Blood Venous blood specimen / Unknown Venipuncture / Unknown 04/02/2024 4:58 AM EST 04/02/2024 5:[address] [facility] DO LAB BLOOD ORDERABLES Final Resu lt Performing Organization Address [facility]/ZIP Co de Phone Number LABORATORY [facility] [address] [place] [address] * (ABNORMAL) HEPATIC FUNCTION PANEL (04/02/2024 4:58 AM EST) Albumin 2.6(L) 3.8 - 5.0 g/dL 04/02/2024 5:45 AM EST LAB[facility]ORY [facility] AST 138(H) 10 - 50 U/L 04/02/2024 5:45 AM EST LAB[facility] Alkaline Phosphatase 685(H) 35 - 130 U/L 04/02/2024 5:45 AM EST [facility] ALT 50 10 - 50 U/L 04/02/2024 5:45 AM EST [facility] Bilirubin, Total 2.0(H) <=1.2 mg/dL 04/02/2024 5:45 AM EST LAB[facility] Bilirubin, Direct 1.6(H) 0.0 - 0.3 mg/dL 04/02/2024 5:45 AM EST [facility] Protein 5.3(L) 6.0 - 8.3 g/dL 04/02/2024 5:45 AM EST [facility] Blood Venous blood specimen / Unknown Venipuncture / Unknown 04/02/2024 4:58 AM EST 04/02/2024 5:11 AM EST us nAn Jay PA-C LAB BLOOD ORDERABLES Final R esult LABORATORY [facility] [address] [place] [address] * (ABNORMAL) BASIC METABOLIC PANEL (04/02/2024 4:58 AM EST) BUN 21(H) 6 - 20 mg/dL 04/02/2024 5:45 AM EST [facility] CREATININE 1.2 0.6 - 1.2 mg/dL 04/02/2024 5:45 AM EST LAB[facility]ORY [facility] EGFR 62 >=60 mL/min 04/02/2024 5:45 AM EST LAB[facility]ORY [facility] Comment:eGFR is calculated b ased on the CKD-EPI 2020 equation. SODIUM 131(L) 135 - 146 mmol/L 04/02/2024 5:45 AM EST LAB[facility] POTASSIUM 4.3 3.5 - 5.1 mmol/L 04/02/2024 5:45 AM EST [facility] CHLORIDE 99 98 - 107 mmol/L 04/02/2024 5:45 AM EST [facility] CO2 20(L) 22 - 32 mmol/L 04/02/2024 5:45 AM EST [facility] ANION GAP 12 7 - 15 mmol/L 04/02/2024 5:45 AM EST [facility] GLUCOSE 105 70 - 120 mg/dL 04/02/2024 5:45 AM EST [facility] CALCIUM 8.5 8.4 - 10.2 mg/dL 04/02/2024 5:45 AM EST [facility] Blood Venous blood specimen / Unknown Venipuncture / Unknown 04/02/2024 4:58 AM EST 04/02/2024 5:11 AM EST Ann Jay PA-C LAB BLOOD ORDERABLES Final R esult LABORATORY [facility] [address], [place] [id number] * (ABNORMAL) CBC (04/02/2024 4:58 AM EST) WBC 29.75(H) 4.00 - 10.80 K/uL 04/02/2024 5:23 AM EST LAB[facility]ORY [facility] RBC 2.73 4.50 - 5.25 M/uL 04/02/2024 5:23 AM EST LAB[facility] HGB 7.8(L) 14.0 - 16.8 g/dL 04/02/2024 5:23 AM EST LAB[facility] HCT 24.5(L) 40.0 - 48.4 % 04/02/2024 5:23 AM EST LAB[facility]ORY [facility] MCV 89.7 82.0 - 99.5 fL 04/02/2024 5:23 AM EST LAB[facility]ORY [facility] MCH 28.6 27.0 - 34.0 pg 04/02/2024 5:23 AM EST LAB[facility] MCHC 31.8 32.0 - 36.0 g/dL 04/02/2024 5:23 AM EST LAB[facility] RDW 17.2 11.5 - 15.5 % 04/02/2024 5:23 AM EST LAB[facility]ORY [facility] PLT 274 140 - 400 K/uL 04/02/2024 5:23 AM EST LAB[facility] MPV 8.8 6.6 - 11.1 fL 04/02/2024 5:23 AM EST LAB[facility]ORY [facility] nRBCs 0 <=0 /100 WBCs 04/02/2024 5:23 AM EST [facility] Blood Venous blood specimen / Unknown Venipuncture / Unknown 04/02/2024 4:58 AM EST 04/02/2024 5:11 AM EST us Ann Jay PA-C LAB BLOOD ORDERABLES Final R esult LABORATORY [facility] [address] [place] [address] * EKG (04/02/2024 4:41 AM EST) 04/02/2024 4:41 AM EST Narrative Procedure Note Elgin Mcclain DO - 04/02/2024 4:41 AM EST REASON FOR STUDY: Shortness of breath;Shortness of breath;SOB CONCLUSIONS: Normal sinus rhythm Possible Inferior infarct (cited on or before 17-Jul-2022) Nonspecific ST abnormality When compared with ECG of 30-Jan-2024 12:11, QT has lengthened Ventricular Rate: 82 Atrial Rate: 82 IA Interval: 190 QRS Duration: 102 QT/QTc: 422/493 ms P-R-T [place]: 66 : 45 : -20 degrees Marixa Clarke DO EKG Final Result [facility] CARDIOLOGY * (ABNORMAL) URINALYSIS, REFLEX TO CULTURE (04/02/2024 2:51 AM EST) Color, Urine Light Yellow Colorless, Light Yellow, Yellow, Dark Yellow 04/02/2024 3:23 AM EST LAB[facility]ATORY [facility] Clarity, Urine Clear Clear 04/02/2024 3:23 AM EST LABORATORY [facility] Glucose, Urine Negative Negative mg/dL 04/02/2024 3:23 AM EST LAB[facility]ATORY [facility] Bilirubin, Urine Negative Negative 04/02/2024 3:23 AM EST LAB[facility]ATORY [facility] Ketone, Urine Negative Negative mg/dL 04/02/2024 3:23 AM EST LABORATORY [facility] Specific [place], Urine 1.009 1.003 - 1.030 04/02/2024 3:23 AM EST LABORATORY [facility] Blood, Urine Small(A) Negative 04/02/2024 3:23 AM EST LABORATORY [facility] pH, Urine 6.0 5.0 - 7.5 Units 04/02/2024 3:23 AM EST LAB[facility]ORY [facility] Protein, Urine Trace(A) Negative mg/dL 04/02/2024 3:23 AM EST LABORATORY [facility] Urobilinogen, Urine Normal Normal mg/dL 04/02/2024 3:23 AM EST LAB[facility]ORY [facility] Nitrite, Urine Negative Negative 04/02/2024 3:23 AM EST LAB[facility] Esterase, Urine Negative Negative 04/02/2024 3:23 AM EST LAB[facility] RBC, Urine 0-2 0 - 2 /HPF 04/02/2024 3:23 AM EST LAB[facility]ORY [facility] WBC, Urine 0-2 0 - 2 /HPF 04/02/2024 3:23 AM EST LAB[facility]ORY [facility] Bacteria, Urine 0-25 0 - 25 /HPF 04/02/2024 3:23 AM EST LAB[facility]ORY [facility] Calcium Oxalate Crystal, Urine 1-4(A) None /HPF 04/02/2024 3:23 AM EST LABORATORY [facility] Culture, Urine 04/02/2024 3:23 AM EST LABORATORY [facility] Comment:Culture not indicate d by urinalysis results Urine Urine specimen obtained by clean catch procedure / Unknown Non-blood Collection / Unknown 04/02/2024 2:51 AM EST 04/02/2024 2:56 AM EST us Marixa Clarke DO LAB URINE ORDERABLES Final Resu lt LABORATORY [facility] [address] [place] [address] * URINALYSIS, REFLEX TO CULTURE (CUP ONLY) (04/02/2024 2:51 AM EST) Urinalysis, Reflex to Culture Specimen Specimen collected and received 04/02/2024 4:01 AM EST LABORATORY [facility] Urine Urine specimen obtained by clean catch procedure / Unknown Non-blood Collection / Unknown 04/02/2024 2:51 AM EST 04/02/2024 2:56 AM EST us Marixa Clarke DO LAB URINE ORDERABLES Final Resu lt Performing Organization Address City/[facility]/ZIP Co de Phone Number LABORATORY [facility] [address] [place] [address] * GLUCOSE METER, POINT OF CARE (04/02/2024 2:04 AM EST) Glucose - POCT 82 70 - 120 mg/dL 04/02/2024 7:03 PM EST [facility] Blood Whole blood specimen / Unknown 04/02/2024 2:04 AM EST 04/02/2024 7:03 PM EST Uriel Mosqueda DO LAB POINT OF CARE TEST DOCKED DEVICE UNSOLICITED RESULTS Final Result Performing Organization Address City/[facility]/ZIP Co de Phone Number [facility] [employer] [facility] [address] [place] [address] * MRSA SCREEN, PCR (04/02/2024 2:01 AM EST) Pathologist [facility] [place] MRSA PCR Result Negative Negative 5:59 AM EST LABORATORY [facility] Comment:No Methicillin resis tant Staphylococcus aureus detected by PCR (amplified probe). Upper Respiratory Swab of internal nose / Unknown Non-blood Collection / Unknown 04/02/2024 2:01 AM EST 04/02/2024 3:[address] [facility] DO LAB MICRO - GENERAL ORDERABLES Final Result LABORATORY [facility] [address] [place] [address] * ABO/RH (04/02/2024 1:58 AM EST) [facility] ABO A 04/02/2024 3:27 AM EST LABORATORY [facility] BLOOD BANK Rh Positive 04/02/2024 3:27 AM EST LABORATORY [facility] BLOOD BANK Blood Venous blood specimen / Unknown Venipuncture / Unknown 04/02/2024 1:58 AM EST 04/02/2024 2:05 AM EST [facility] TEST ORDERABLES Final Result Performing Organization Address City/[facility]/ZIP Co de Phone Number LABORATORY [facility] BLOOD BANK [address] [place] [address] * (ABNORMAL) TROPONIN T, HIGH SENSITIVITY (04/02/2024 1:58 AM EST) [facility] Troponin T, High Sensitivity 580(HH) <=22 ng/L 04/02/2024 3:29 AM EST LABORATORY [facility] Blood Venous blood specimen / Unknown Venipuncture / Unknown 04/02/2024 1:58 AM EST 04/02/2024 2:06 AM EST [employer] DO LAB BLOOD ORDERABLES Final Resu lt LABORATORY [place] [address] [place] [address] * DIFFERENTIAL, TECHNOLOGIST REVIEW (04/02/2024 1:58 AM EST) Blood Venous blood specimen / Unknown Venipuncture / Unknown 04/02/2024 1:58 AM EST 04/02/2024 2:06 AM EST Marixa Clarke DO LAB BLOOD ORDERABLES Final Resu lt LABORATORY [facility] [address] [place] [address] * CULTURE, BLOOD (04/02/2024 1:58 AM EST) Pathologist [facility] [place] Blood Culture Growth No growth 04/07/2024 4:01 AM EST LABORATORY [facility] Blood Venous blood specimen / Unknown Venipuncture / Unknown 04/02/2024 1:58 AM EST 04/02/2024 3:11 AM EST Marixa Clarke DO LAB MICRO - GENERAL ORDERABLES Final Result Performing Organization Address City/[facility]/ZIP Co de Phone Number LABORATORY [facility] [address] [place] [address] * CULTURE, BLOOD (04/02/2024 1:58 AM EST) Blood Culture Growth No growth 04/07/2024 4:01 AM EST LABORATORY [facility] Blood Venous blood specimen / Unknown Venipuncture / Unknown 04/02/2024 1:58 AM EST 04/02/2024 3:11 AM EST [facility] MICRO - GENERAL ORDERABLES Final Result Performing Organization Address City/[facility]/ZIP Co de Phone Number LABORATORY [facility] [address] [place] [address] * (ABNORMAL) DIFFERENTIAL, AUTOMATED (04/02/2024 1:58 AM EST) WBC 38.04(H) 4.00 - 10.80 K/uL 04/02/2024 2:34 AM EST [facility] Neutrophils % 89.8(H) 40.0 - 75.0 % 04/02/2024 2:34 AM EST [facility] Lymphocytes % 2.2(L) 18.0 - 42.0 % 04/02/2024 2:34 AM EST [facility] Monocytes % 3.2 1.0 - 11.0 % 04/02/2024 2:34 AM EST [facility] Eosinophils % 0.6 0.0 - 6.0 % 04/02/2024 2:34 AM EST [facility] Basophils % 0.2 0.0 - 2.0 % 04/02/2024 2:34 AM EST [facility] Immature Granulocytes % 4.0(H) 0.0 - 2.0 % 04/02/2024 2:34 AM EST [facility] Absolute Neutrophils 34.20(H) 1.80 - 7.70 K/uL 04/02/2024 2:34 AM EST [facility] Absolute Lymphocytes 0.83(L) 1.00 - 4.80 K/ul 04/02/2024 2:34 AM EST [facility] Absolute Monocytes 1.21(H) 0.00 - 1.10 K/uL 04/02/2024 2:34 AM EST [facility] Absolute Eosinophils 0.21 0.00 - 0.70 K/uL 04/02/2024 2:34 AM EST [facility] Absolute Basophils 0.07 0.00 - 0.20 K/uL 04/02/2024 2:34 AM EST [facility] Absolute Immature Granulocytes 1.52(H) 0.00 - 0.20 K/uL 04/02/2024 2:34 AM EST [facility] Blood Venous blood specimen / Unknown Venipuncture / Unknown 04/02/2024 1:58 AM EST 04/02/2024 2:06 AM EST us Marixa Clarke DO LAB BLOOD ORDERABLES Final Resu lt LAB[facility]ATORY [facility] [address] [place] [address] * (ABNORMAL) CBC (04/02/2024 1:58 AM EST) WBC 38.04(H) 4.00 - 10.80 K/uL 04/02/2024 2:21 AM EST [facility] RBC 3.10 4.50 - 5.25 M/uL 04/02/2024 2:21 AM EST [facility] HGB 8.8(L) 14.0 - 16.8 g/dL 04/02/2024 2:21 AM EST [facility] HCT 27.5(L) 40.0 - 48.4 % 04/02/2024 2:21 AM EST [facility] MCV 88.7 82.0 - 99.5 fL 04/02/2024 2:21 AM EST [facility] MCH 28.4 27.0 - 34.0 pg 04/02/2024 2:21 AM EST [facility] MCHC 32.0 32.0 - 36.0 g/dL 04/02/2024 2:21 AM EST [facility] RDW 17.2 11.5 - 15.5 % 04/02/2024 2:21 AM EST [facility] PLT 354 140 - 400 K/uL 04/02/2024 2:21 AM EST [facility] MPV 9.0 6.6 - 11.1 fL 04/02/2024 2:21 AM EST [facility] nRBCs 0 <=0 /100 WBCs 04/02/2024 2:21 AM EST LAB[facility]ATORY [facility] Blood Venous blood specimen / Unknown Venipuncture / Unknown 04/02/2024 1:58 AM EST 04/02/2024 2:06 AM EST us Marixa Clarke DO LAB BLOOD ORDERABLES Final Resu lt LABORATORY [facility] [address] [place] [address] * TYPE AND SCREEN (04/02/2024 1:58 AM EST) Pathologist [facility] [place] ABO A 04/02/2024 2:42 AM EST LABORATORY [facility] BLOOD BANK Rh Positive 04/02/2024 2:42 AM EST LABORATORY [facility] BLOOD BANK Red Blood Cell Antibody Screen Negative 04/02/2024 2:42 AM EST LABORATORY [facility] BLOOD BANK Specimen Expiration Date 04/05/2024 23:59 04/02/2024 2:42 AM EST LABORATORY [facility] BLOOD BANK Blood Venous blood specimen / Unknown Venipuncture / Unknown 04/02/2024 1:58 AM EST 04/02/2024 2:05 AM EST [facility] TEST ORDERABLES Final Result Performing Organization Address [facility] de Phone Number LABORATORY [facility] BLOOD BANK [address] [place] [address] * (ABNORMAL) PT INR (04/02/2024 1:58 AM EST) Prothrombin Time 16.8(H) 11.6 - 15.2 seconds 04/02/2024 2:18 AM EST LABORATORY [facility] INR 1.3(H) 0.8 - 1.2 04/02/2024 2:18 AM EST LAB[facility]ATORY [facility] Blood Venous blood specimen / Unknown Venipuncture / Unknown 04/02/2024 1:58 AM EST 04/02/2024 2:06 AM EST Narrative LABORATORY [facility] - 04/02/2024 2:18 AM EST Warfarin Therapy INR: 2.0-3.0 conventional anticoagulation INR: 2.5-3.5 high intensity anticoagulation Kaiamai DO LAB BLOOD ORDERABLES Final Resu lt Performing Organization Address [facility] Co de Phone Number LABORATORY [facility] [address] [place] [address] * (ABNORMAL) LIPASE (04/02/2024 1:58 AM EST) Lipase 7(L) 13 - 60 U/L 04/02/2024 2:33 AM EST LAB[facility]ATORY [facility] Blood Venous blood specimen / Unknown Venipuncture / Unknown 04/02/2024 1:58 AM EST 04/02/2024 2:06 AM EST Marixa Clarke DO LAB BLOOD ORDERABLES Final Resu lt Performing Organization Address [facility] Co de Phone Number LABORATORY [facility] [address] [place] [address] * (ABNORMAL) HEPATIC FUNCTION PANEL (04/02/2024 1:58 AM EST) Albumin 2.4(L) 3.8 - 5.0 g/dL 04/02/2024 2:33 AM EST [facility] AST 142(H) 10 - 50 U/L 04/02/2024 2:33 AM EST [facility] Alkaline Phosphatase 821(H) 35 - 130 U/L 04/02/2024 2:33 AM EST [facility] ALT 60(H) 10 - 50 U/L 04/02/2024 2:33 AM EST [facility] Bilirubin, Total 2.3(H) <=1.2 mg/dL 04/02/2024 2:33 AM EST [facility] Bilirubin, Direct 1.9(H) 0.0 - 0.3 mg/dL 04/02/2024 2:33 AM EST [facility] Protein 5.5(L) 6.0 - 8.3 g/dL 04/02/2024 2:33 AM EST [facility] Blood Venous blood specimen / Unknown Venipuncture / Unknown 04/02/2024 1:58 AM EST 04/02/2024 2:06 AM EST Kaiamai DO LAB BLOOD ORDERABLES Final Resu lt Performing Organization Address [facility] Co de Phone Number LABORATORY [facility] [address] [place] [address] * CALCIUM, IONIZED, WHOLE BLOOD (04/02/2024 1:58 AM EST) Calcium, Ionized 1.24 1.13 - 1.32 mmol/L 04/02/2024 2:11 AM EST [facility] Blood Venous blood specimen / Unknown Venipuncture / Unknown 04/02/2024 1:58 AM EST 04/02/2024 2:06 AM EST Marixa Clarke DO LAB BLOOD ORDERABLES Final Resu lt Performing Organization Address City/[facility]/ZIP Co de Phone Number LABORATORY [facility] [address] [place] [address] * PHOSPHORUS (04/02/2024 1:58 AM EST) Phosphorus 3.6 2.5 - 4.8 mg/dL 04/02/2024 2:33 AM EST LABORATORY C Blood Venous blood specimen / Unknown Venipuncture / Unknown 04/02/2024 1:58 AM EST 04/02/2024 2:06 AM EST us Marixa Clarke DO LAB BLOOD ORDERABLES Final Resu lt Performing Organization Address [facility]/ZIP Co de Phone Number LABORATORY [facility] [address] [place] [address] * MAGNESIUM (04/02/2024 1:58 AM EST) Magnesium 1.9 1.5 - 2.6 mg/dL 04/02/2024 2:33 AM EST LABORATORY [facility] Blood Venous blood specimen / Unknown Venipuncture / Unknown 04/02/2024 1:58 AM EST 04/02/2024 2:06 AM EST Marixa Clarke DO LAB BLOOD ORDERABLES Final Resu lt Performing Organization Address [facility]/ZIP Co de Phone Number LABORATORY [facility] [address] [place] [address] * (ABNORMAL) BASIC METABOLIC PANEL (04/02/2024 1:58 AM EST) BUN 20 6 - 20 mg/dL 04/02/2024 2:33 AM EST LABORATORY [facility] CREATININE 1.2 0.6 - 1.2 mg/dL 04/02/2024 2:33 AM EST LABORATORY [facility] EGFR 65 >=60 mL/min 04/02/2024 2:33 AM EST LABORATORY C Comment:eGFR is calculated b ased on the CKD-EPI 2020 equation. SODIUM 130(L) 135 - 146 mmol/L 04/02/2024 2:33 AM EST [facility] POTASSIUM 4.5 3.5 - 5.1 mmol/L 04/02/2024 2:33 AM EST [facility] CHLORIDE 98 98 - 107 mmol/L 04/02/2024 2:33 AM EST [facility] CO2 19(L) 22 - 32 mmol/L 04/02/2024 2:33 AM EST [facility] ANION GAP 13 7 - 15 mmol/L 04/02/2024 2:33 AM EST [facility] GLUCOSE 78 70 - 120 mg/dL 04/02/2024 2:33 AM EST [facility] CALCIUM 9.0 8.4 - 10.2 mg/dL 04/02/2024 2:33 AM EST [facility] Blood Venous blood specimen / Unknown Venipuncture / Unknown 04/02/2024 1:58 AM EST 04/02/2024 2:06 AM EST Marixa Clarke DO LAB BLOOD ORDERABLES Final Resu lt Performing Organization Address City/[facility]/ZIP Co de Phone Number LABORATORY [facility] [address] [place] [address] * (ABNORMAL) LACTATE (04/02/2024 1:58 AM EST) [facility] Lactate 2.4(H) 0.4 - 2.0 mmol/L 04/02/2024 2:30 AM EST LAB[facility]ORY [facility] Blood Venous blood specimen / Unknown Venipuncture / Unknown 04/02/2024 1:58 AM EST 04/02/2024 2:06 AM EST Marixa Clarke DO LAB BLOOD ORDERABLES Final Resu lt LABORATORY [facility] [address] [place] [address] documented in this encounter Visit Diagnoses Diagnosis Encounter for fitting and adjustment of other gastrointestinal appliance and device [Z46.59]- Primary Septic shock (HCC) Unspecified septicemia Chest pain Chest pain, unspecified SOB (shortness of breath) Shortness of breath Bacteremia Other specified diseases of biliary tract [K83.8] Other specified postprocedural states [Z98.890] Tachycardia Tachycardia, unspecified Other nonspecific abnormal finding of lung field Other specified symptoms and signs involving the circulatory and respiratory systems Dyspnea, unspecified Edema, unspecified Hypoxemia First degree atrioventricular block Old myocardial infarction Acute on chronic congestive heart failure, unspecified heart failure type (HCC) 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 head of pancreas Oral pain Other and unspecified diseases of the oral soft tissues Vitamin B 12 deficiency Other B-complex deficiencies Type 2 diabetes mellitus with hemoglobin A1c goal of less than 7.0% (HCC) 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) Type II or unspecified type diabetes mellitus with peripheral circulatory disorders, not stated as uncontrolled 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, without long-term current use of insulin, unspecified laterality, unspecified retinopathy severity (HCC) Bilateral leg edema Edema Chronic maxillary sinusitis Gastroesophageal reflux disease without esophagitis Esophageal reflux Sepsis due to Streptococcus species without acute organ dysfunction (HCC) Acute hypoxic respiratory failure (HCC) 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) Type II or unspecified type diabetes mellitus with peripheral circulatory disorders, not stated as uncontrolled 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) BPH (benign prostatic hyperplasia) Unspecified hyperplasia of prostate without urinary obstruction and other lower urinary tract symptoms (LUTS) HTN, goal below 140/90 Unspecified essential hypertension Coronary artery disease of [place] artery of [place] heart with stable angina pectoris (HCC) Gastroesophageal reflux disease without esophagitis Esophageal reflux Acute cholecystitis Sepsis without acute organ dysfunction (HCC) Goals of care, counseling/discussion Other specified counseling Palliative care encounter Encounter for palliative care Pneumonia of right upper lobe due to infectious organism Hyponatremia Hyposmolality and/or hyponatremia Acute hypoxic respiratory failure (HCC) Sepsis due to Streptococcus species without acute organ dysfunction (HCC) documented in this encounter Administered Medications Inactive Administered Medications - up to 3 most recent administrations Medication Order MAR Action Action Date Dose Rate Site albumin (human) (Plasbumin-5) 5 % infusion 25 g Intravenous, Please scan professional development instructor "square" 2D barcode to record Lot/ Expiration, ONCE, 1 dose, On Silvia 04/02/24 at 0330 Rate Verify 04/02/2024 4:00 AM EST 500 mL/hr New Bag 04/02/2024 3:30 AM EST 25 g 500 mL/hr albumin (human) (Plasbumin-5) 5 % infusion 25 g Intravenous, at 100 mL/hr, Please scan professional development instructor "square" 2D barcode to record Lot/ Expiration, ONCE, 1 dose, On Sat04/12/24 at 1645 Rate Verify 04/12/2024 7:22 PM EST 100 mL/hr New Bag 04/12/2024 6:25 PM EST 25 g 100 mL/hr albumin, human 25 % inj 12.5 g Intravenous, at 50 mL/hr, Please scan professional development instructor "square" 2D barcode to record Lot/ Expiration, ONCE, 1 dose, On Sat04/09/24 at 2000 Rate Verify 04/10/2024 12:18 AM EST 50 mL/hr Rate Verify 04/09/2024 8:43 PM EST 50 mL/hr New Bag 04/09/2024 8:36 PM EST 12.5 g 50 mL/hr albumin, human 25 % inj 12.5 g Intravenous, at 50 mL/hr, Please scan professional development instructor "square" 2D barcode to record Lot/ Expiration, ONCE, 1 dose, On Sat04/10/24 at 1330 New Bag 04/10/2024 2:42 PM EST 12.5 g 50 mL/hr albumin, human 25 % inj 25 g Intravenous, Please scan professional development instructor "square" 2D barcode to record Lot/ Expiration, ONCE, 1 dose, On Sat04/05/24 at 0130 New Bag 04/05/2024 1:41 AM EST 25 g 10 0 mL/hr Albuterol Sulfate (Proventil) (2.5 MG/3ML) 0.083% inhalation solution 2.5 mg 2.5 mg, Nebulizer, Q4H PRN Dyspnea, Starting on Sat04/09/24 at 1234, Until Sat04/17/24 at 1643 Given 04/09/2024 12:45 PM EST 2.5 mg ampicillin-sulbactam in NSS (Unasyn) ivpb 3 g 3 g, IV Piggyback, Q6H, 40 doses, First dose on Sat04/06/24 at 1800, Last dose on Sat04/16/24 at 1200, MIX BEFORE ADMINISTERING! New Bag 04/16/2024 11:28 AM EST 3 g 210 mL/hr New Bag 04/16/2024 6:02 AM EST 3 g 210 mL/hr New Bag 04/16/2024 12:01 AM EST 3 g 210 mL/hr Apixaban (Eliquis) tab 5 mg 5 mg, Oral, BID (.AM/PM), First dose (after last modification) on Sat04/12/24 at 2100, Until Discontinued Given 04/17/2024 8:33 AM EST 5 mg Given 04/16/2024 8:42 PM EST 5 mg Given 04/16/2024 7:51 AM EST 5 mg aspirin chew tab 81 mg 81 mg, Oral, HS, First dose on Sat04/02/24 at 2315, Until Discontinued Given 04/16/2024 8:42 PM EST 81 mg Given 04/15/2024 8:57 PM EST 81 mg Given 04/14/2024 9:58 PM EST 81 mg Atenolol (Tenormin) tab 50 mg 50 mg, Oral, Daily(AM), First dose on Silvia 04/09/24 at 0900, Until Discontinued, Hold for HR less than 60 or SBP below 100 and notify service if dose is held Given 04/10/2024 7:54 AM EST 50 mg Given 04/09/2024 7:50 AM EST 50 mg Bumetanide (Bumex) inj 2 mg 2 mg, IV Push, BID (0900, 1600), First dose on Sat04/10/24 at 1715, Until Discontinued, May administer as dispensed over 1 to 5 minutes DO NOT REFRIGERATE Given 04/12/2024 8:40 AM EST 2 mg Given 04/11/2024 4:29 PM EST 2 mg Given 04/11/2024 8:24 AM EST 2 mg Bumetanide (Bumex) inj 2 mg 2 mg, IV Push, ONCE, On 04/11/24 at 1745, For 1 dose, May administer as dispensed over 1 to 5 minutes DO NOT REFRIGERATE Given 04/11/2024 5:54 PM EST 2 mg Bumetanide (Bumex) tab 0.5 mg 0.5 mg, Oral, Daily(AM), First dose (after last modification) on Sat04/17/24 at 0700, Until Discontinued Given 04/17/2024 7:00 AM EST 0.5 mg Bumetanide (Bumex) tab 1 mg 1 mg, Oral, Daily(AM), First dose on Sat04/14/24 at 1045, Until Discontinued Given 04/16/2024 7:50 AM EST 1 mg Given 04/15/2024 8:16 AM EST 1 mg Given 04/14/2024 11:13 AM EST 1 mg chlorHEXIDINE (Periogard) 0.12 % oral rinse 15 mL 15 mL, Oral mucosal membrane, BID (799,1999), First dose on Sat04/02/24 at 0800, Until Discontinued, Include oral/gum/tooth brushing with medication. Use prepackaged oral kit suction tooth brush if available. Given 04/02/2024 8:10 PM EST 15 mL Given 04/02/2024 8:00 AM EST 15 mL dextrose 50% inj 25 mL 25 mL, IV Push, PRN Hypoglycemia, Other, For blood glucose 54 - 69 mg/dL or 70 - 100 mg/dL with symptoms AND patient is unresponsive, NPO, OR unable to swallow, Starting on Sat04/14/24 at 0719, Until Sat04/17/24 at 1643, Administer IV. Recheck blood glucose after 15 minutes. Notify provider. dextrose 50% inj 50 mL 50 mL, IV Push, PRN Hypoglycemia, Other, For blood glucose below 54 mg/dL AND patient unresponsive, NPO, OR unable to swallow, Starting on Sat04/14/24 at 0719, Until Sat04/17/24 at 1643, Administer IV. Recheck blood glucose in 15 minutes. Notify provider. diphenhydrAMINE (Benadryl) inj 50 mg 50 mg, Intravenous, ONCE, On Sat04/03/24 at 1545, For 1 dose, Give one hour prior to imaging study. Nursing to adjust administration time based on scheduled imaging study. Given 04/03/2024 4:03 PM EST 50 mg diphenhydrAMINE (Benadryl) inj 50 mg 50 mg, Intravenous, ONCE, On Sat04/05/24 at 0530, For 1 dose, Give one hour prior to imaging study. Nursing to adjust administration time based on scheduled imaging study. Given 04/05/2024 7:00 AM EST 50 mg Enoxaparin (Lovenox) inj 70 mg 70 mg (rounded from 73.5 mg = 1 mg/kg 73.5 kg), Subcutaneous, Q12H, First dose on Sat04/05/24 at 0945, Until Discontinued, If patient is on warfarin, inform provider if daily INR value is 2 or greater! Given 04/12/2024 8:40 AM EST 70 mg Abdomen Right Lower Given 04/11/2024 9:36 PM EST 70 mg Ab domen Left Lower Given 04/11/2024 8:23 AM EST 70 mg Ab domen Right Lower Furosemide (Lasix) inj 20 mg 20 mg, IV Push, ONCE, On Sat04/05/24 at 0100, For 1 dose Given 04/05/2024 12:27 AM EST 20 mg Furosemide (Lasix) inj 40 mg 40 mg, IV Push, ONCE, On Sat04/08/24 at 1500, For 1 dose Given 04/08/2024 3:02 PM EST 40 mg Furosemide (Lasix) inj 40 mg 40 mg, IV Push, ONCE, On Sat04/10/24 at 1400, For 1 dose Given 04/10/2024 4:09 PM EST 40 mg Furosemide (Lasix) inj 80 mg 80 mg, IV Push, ONCE, On Silvia 04/09/24 at 1315, For 1 dose Given 04/09/2024 12:41 PM EST 80 mg Furosemide (Lasix) tab 40 mg 40 mg, Oral, Daily(AM), First dose on Sat04/03/24 at 0900, Until Discontinued, Hold if SBP < 90 or HR < 60 Given 04/04/2024 7:39 AM EST 40 mg Given 04/03/2024 7:37 AM EST 40 mg glucagon (Glucagen) inj 1 mg 1 mg, Intramuscular, PRN Hypoglycemia, Other, If patient is unresponsive, or NPO and has no IV access, Starting on Sat04/14/24 at 0719, Until Sat04/17/24 at 1643, NPO and no IV access with either 1) blood glucose less than 100 mg/dL and symptomatic OR 2) blood glucose less than 70 mg/dL and asymptomatic Glucose (Glutose 15) 40 % gel 15 g of glucose 15 g of glucose, Oral, PRN Hypoglycemia (low sugar), Other, For blood glucose 54 - 69 mg/dL or 70 - 100 mg/dL with symptoms AND patient alert WITH difficulty chewing/swallowing, Starting on Sat04/14/24 at 0719, Until Sat04/17/24 at 1643, Administer gel. Recheck blood glucose after 15 minutes. Notify provider. 37.5 gram tube = 15 grams glucose = 1 each Glucose (Glutose 15) 40 % gel 30 g of glucose 30 g of glucose, Oral, PRN Hypoglycemia (low sugar), Other, For blood glucose below 54 mg/dL AND patient alert WITH difficulty chewing/swallowing, Starting on Sat04/14/24 at 0719, Until Sat04/17/24 at 1643, Administer gel. Recheck blood glucose after 15 minutes. Notify provider. 37.5 gram tube = 15 grams glucose = 1 each glucose chew tab 16 g 16 g, Oral, PRN Hypoglycemia, Other, For blood glucose 54 - 69 mg/dL or 70 - 100 mg/dL with symptoms and patient alert without difficulty chewing/swallowing., Starting on Sat04/14/24 at 0719, Until Sat04/17/24 at 1643 hEParin 100 UNIT/ML Lock Flush inj 500 Units 500 Units (5 mL), IV Lock, ONCE PRN Other, to remove needle from mediport, Starting on Sat04/08/24 at 1450, Until Sat04/08/24 at 1627, For 1 dose, Do not flush if lock, PICC, or central line not in place; IV infusing or unable to flush. Given 04/08/2024 4:27 PM EST 500 Units hEParin inj 5,000 Units 5,000 Units, Subcutaneous, Q8H, First dose on Silvia 04/02/24 at 0600, Until Discontinued Given 04/05/2024 5:38 AM EST 5,000 Units Abdomen Right Lower Given 04/04/2024 9:47 PM EST 5,000 Units A bdomen Left Upper Given 04/04/2024 2:07 PM EST 5,000 Units A bdomen Right Upper Ibuprofen (Motrin) tab 400 mg 400 mg, Oral, Q4H PRN Fever >38C(100.5F), Starting on Sat04/03/24 at 1009, Until 04/04/24 at 1801 Given 04/04/2024 10:02 AM EST 400 mg Given 04/03/2024 10:24 AM EST 400 mg Ibuprofen (Motrin) tab 400 mg 400 mg, Oral, Q4H PRN Pain, Mild, Fever >38C(100.5F), Starting on 04/04/24 at 1801, Until 04/11/24 at 1702 Given 04/09/2024 1:40 PM EST 400 mg Given 04/07/2024 10:57 PM EST 400 mg Given 04/07/2024 7:29 AM EST 400 mg insulin aspart (NovoLOG) inj 8 Units 8 Units, Subcutaneous, ONCE, 1 dose, On 04/05/24 at 2330 Given 04/05/2024 11:14 PM EST 8 Units Arm Left Upper insulin aspart (NovoLOG) inj Subcutaneous, W/MEALS AND HS, First dose (after last modification) on Sat04/03/24 at 0800, Until Discontinued, MEDIUM DOSE (Usual starting dose): Sliding Scale Correctional insulin may be given if the patient is NPO. Dose based on standard build from Insulin Calculator. Do not modify insulin doses in administration instructions!, Glucose less than 70 instructions: Obtain STAT lab blood glucose and call covering provider., Glucose 80-150 (units): 0, Glucose 151-200 (units): 2, Glucose 201-250 (units): 4, Glucose 251-300 (units): 6, Glucose greater than 300 (units): 8, Glucose greater than 300 instructions: Give suggested insulin dose and call covering provider. Given 04/13/2024 12:11 PM EST 2 Units Arm Right Upper Given 04/12/2024 10:26 PM EST 2 Units A rm Left Upper Given 04/12/2024 11:46 AM EST 6 Units A rm Right Upper insulin aspart (NovoLOG) inj Subcutaneous, WITH MEALS, First dose on Sat04/06/24 at 1200, Until Discontinued, Dose equals 1 unit of insulin per 15 grams of carbohydrate consumed. Hold dose if patient does not eat Given 04/13/2024 5:10 PM EST 6 Units Arm Right Upper Given 04/13/2024 12:12 PM EST 5 Units A rm Right Upper Given 04/13/2024 8:22 AM EST 7 Units Ar m Right Upper insulin aspart (NovoLOG) inj Subcutaneous, WITH MEALS, First dose on Sat04/14/24 at 1215, Until Discontinued, LOW DOSE (Elderly insulin sensitive patient): Sliding Scale Correctional insulin may be given if the patient is NPO. Dose based on standard build from Insulin Calculator. Do not modify insulin doses in administration instructions!, Glucose less than 70 instructions: Obtain STAT lab blood glucose and call covering provider., Glucose 80-150 (units): 0, Glucose 151-200 (units): 1, Glucose 201-250 (units): 2, Glucose 251-300 (units): 3, Glucose greater than 300 (units): 4, Glucose greater than 300 instructions: Give suggested insulin dose and call covering provider. Given 04/16/2024 11:26 AM EST 2 Units Arm Right Upper Given 04/15/2024 11:27 AM EST 2 Units A rm Right Upper Insulin Glargine (Lantus) inj 10 Units 10 Units, Subcutaneous, HSINSULIN, First dose on 04/06/24 at 2200, Until Discontinued, "IF DOSE IS HELD- NOTIFY COVERING PROVIDER!" Given 04/13/2024 10:38 PM EST 10 Units Arm Right Upper Given 04/12/2024 10:26 PM EST 10 Units A rm Left Upper Given 04/11/2024 9:36 PM EST 10 Units Ar m Right Upper Iopamidol (Isovue 370) inj 75 mL 75 mL, Intravenous, ONCE, On Sat04/05/24 at 0900, For 1 dose, Radiology Medication Routing (Non-IR) Given 04/05/2024 9:00 AM EST 39 mL Iopamidol (Isovue 370) inj 80 mL 80 mL, Intravenous, ONCE, On Sat04/03/24 at 1830, For 1 dose, Radiology Medication Routing (Non-IR) Given 04/03/2024 6:30 PM EST 80 mL isosorbide mononitrate SA (Imdur) tab 120 mg 120 mg, Oral, Daily(AM), First dose on Silvia 04/09/24 at 0900, Until Discontinued, Hold for 24 hours prior to Stress Test and notify service if dose is held This med should NOT be Crushed or Chewed Given 04/09/2024 7:50 AM EST 120 mg isosorbide mononitrate SA (Imdur) tab 120 mg 120 mg, Oral, Daily(AM), First dose (after last reorder) on 04/11/24 at 0900, Until Discontinued, Hold for 24 hours prior to Stress Test and notify service if dose is held This med should NOT be Crushed or Chewed Given 04/12/2024 8:4 0 AM EST 120 mg Given 04/11/2024 8:11 AM EST 120 mg isosorbide mononitrate SA (Imdur) tab 120 mg 120 mg, Oral, Daily(AM), First dose (after last reorder) on Sat04/14/24 at 0900, Until Discontinued, Hold for 24 hours prior to Stress Test and notify service if dose is held This med should NOT be Crushed or Chewed Given 04/17/2024 8:3 3 AM EST 120 mg Given 04/16/2024 7:50 AM EST 120 mg Given 04/15/2024 8:16 AM EST 120 mg Magnesium L-Lactate SR (Mag-Tab SR) tab 84 mg 84 mg, Oral, Daily(AM), First dose on Sat04/14/24 at 1115, Until Discontinued, DO NOT CRUSH! Each tablet contains 84 mg elemental magnesium Given 04/17/2024 8:33 AM EST 84 mg Given 04/16/2024 7:51 AM EST 84 mg Given 04/15/2024 8:16 AM EST 84 mg magnesium sulfate 1 g in d5w 100mL LOCKED DOSE 1 g, IV Piggyback, Q1H, 2 doses, First dose on 04/11/24 at 0000, Last dose on Sat04/11/24 at 0100, Administer over 60 Minutes, Total dose is 2g New Bag 04/11/2024 12:27 AM EST 1 g 100 mL/hr Rate Verify 04/10/2024 11:32 PM EST 1 g/hr 100 mL/hr Restarted 04/10/2024 11:24 PM EST 1 g/hr 100 mL/hr magnesium sulfate 1 g in d5w 100mL LOCKED DOSE 1 g, IV Piggyback, ONCE, 1 dose, On 04/12/24 at 0315, Administer over 60 Minutes Rate Verify 04/12/2024 3:13 AM EST 1 g/hr 100 mL/hr New Bag 04/12/2024 3:09 AM EST 1 g 100 mL/hr methylPREDNISolone sodium succ (SOLU-Medrol) inj 40 mg 40 mg, Intravenous, ONCE, On Sat04/03/24 at 1215, For 1 dose, Give 5 hours prior to imaging study. Nursing to adjust administration time based on scheduled imaging study. Given 04/03/2024 12:05 PM EST 40 mg methylPREDNISolone sodium succ (SOLU-Medrol) inj 40 mg 40 mg, Intravenous, ONCE, On 04/03/24 at 1545, For 1 dose, Give one hour prior to imaging study. Nursing to adjust administration time based on scheduled imaging study. Given 04/03/2024 4:03 PM EST 40 mg methylPREDNISolone sodium succ (SOLU-Medrol) inj 40 mg 40 mg, Intravenous, ONCE, On 04/05/24 at 0200, For 1 dose, Give 5 hours prior to imaging study. Nursing to adjust administration time based on scheduled imaging study. Given 04/05/2024 3:00 AM EST 40 mg methylPREDNISolone sodium succ (SOLU-Medrol) inj 40 mg 40 mg, Intravenous, ONCE, On 04/05/24 at 0530, For 1 dose, Give one hour prior to imaging study. Nursing to adjust administration time based on scheduled imaging study. Given 04/05/2024 7:00 AM EST 40 mg Metoprolol Tartrate (Lopressor) tab 12.5 mg 12.5 mg, Oral, Q12H, First dose on 04/13/24 at 2100, Until Discontinued, Hold for HR less than 60 or SBP below 100 and notify service if dose is held Given 04/17/2024 8:32 AM EST 12.5 mg Given 04/16/2024 8:42 PM EST 12.5 mg Given 04/16/2024 7:50 AM EST 12.5 mg Metoprolol Tartrate (Lopressor) tab 25 mg 25 mg, Oral, BID (.AM/PM), First dose on 04/11/24 at 0900, Until Discontinued, Hold for HR less than 60 or SBP below 100 and notify service if dose is held Given 04/12/2024 8:36 AM EST 25 mg Given 04/11/2024 9:36 PM EST 25 mg Given 04/11/2024 8:11 AM EST 25 mg NORepinephrine (Levophed) 4 mg in 250 ml [id number] STANDARD CONCENTRATION 16 mcg/ml Order Mode: Standard Titration, Starting Rate (mcg/min): 2, Clinical Target: MAP 65-70, Infusion Titration Adjustments: Increase or Decrease by up to 5 mcg/min no more frequently than every 2 minutes to achieve specified goal, Maximum Dose: 30 mcg/min for nurse titration. Dose titrations 31-90 mcg/min require provider order. If administering vasopressor peripherally, please refer to the Peripheral Vasopressor Guidelines., Patient Transfer: Patient should be transferred to a higher level of care if rate exceeds nursing unit specific guidelines., 0-30 mcg/min (0-112.5 mL/hr), TITRATE, Starting on [place] 04/02/24 at 0215, Until [place] 04/02/24 at 0916, Central IV Rate Verify 04/02/2024 5:00 AM EST 1 mcg/min 3.75 mL/hr Rate Change 04/02/2024 4:53 AM EST 1 mcg/min 3.75 mL/hr Rate Verify 04/02/2024 4:00 AM EST 2 mcg/min 7.5 mL/hr NSS 0.9% 250 mL bolus infusion Intravenous, at 250 mL/hr Administer over 60 Minutes, Administer entire volume within 60 minutes or less., ONCE, 1 dose, On 04/12/24 at 1645 New Bag 04/12/2024 4:09 PM EST 250 mL 25 0 mL/hr NSS 0.9% 250 mL bolus infusion Intravenous, at 250 mL/hr Administer over 60 Minutes, Administer entire volume within 60 minutes or less., ONCE, 1 dose, On [place] 04/12/24 at 2000 New Bag 04/12/2024 8:19 PM EST 250 mL 25 0 mL/hr Nutrisource (soluble fiber packet) 1 Packet, Oral, Daily(AM), First dose on [facility] 04/11/24 at 0900, Until Discontinued, Stir one packet into at least 4 oz of any hot or cold beverage or prepared soft food, including purees. Stir until dissolved. Tube Feedin. Flush feeding tube with 30 mL water. 2. Pour packet into a 4-6 fl oz container. 3. Add 120 mL water and mix well with a disposable spoon or tongue blade. 4. Administer Nutrisource via syringe. 5. Flush with 30 mL of water. Given 04/16/2024 7:50 AM EST 1 Packet Given 04/15/2024 8:16 AM EST 1 Packet Given 04/14/2024 10:02 AM EST 1 Packet Nystatin (Nystop) powder Topical, BID (.AM/PM), First dose on [facility] 04/11/24 at 0900, Until Discontinued, Apply to groin Given 04/17/2024 8:35 AM EST Given 04/16/2024 8:42 PM EST Given 04/16/2024 7:51 AM EST omeprazole (PriLOSEC) cap 20 mg 20 mg, Oral, Daily(AM), First dose on Sat04/03/24 at 0900, Until Discontinued Given 04/17/2024 8:33 AM EST 20 mg Given 04/16/2024 7:51 AM EST 20 mg Given 04/15/2024 8:16 AM EST 20 mg Oral Hygiene: Mouth Swab with dentifrice Oral, Q4H LIMITED (00;04;12;16), First dose on Sat04/02/24 at 0400, Until Discontinued, To be used with 1.5% hydrogen peroxide solution or 0.05% cetylpyridium chloride oral rinse Given 04/02/2024 4:00 PM EST Given 04/02/2024 12:00 PM EST Given 04/02/2024 4:00 AM EST oxygen GAS Inhalation, OXYGEN, First dose on Sat04/02/24 at 1600, Until Discontinued, Device/Managed by: Low [...] saturation is greater than or equal to 93% Oxygen On 04/12/2024 12:21 AM EST Oxygen On 04/11/2024 4:00 PM EST Oxygen On 04/11/2024 8:00 AM EST oxygen GAS Inhalation, OXYGEN, First dose on Sat04/13/24 at 1115, Until Discontinued, Device/Managed by: Low Flow Device, Goal SPO2 (%): 91-95, Starting Device: Nasal Cannula, Initial Flow Rate (LPM): 2, Lowest Support: Nasal Cannula: Flow 0-6 LPM. Titrate up/down by 1 LPM., Titration Interval: Q2 minutes and as needed., Notify Provider: For sudden DECREASE in resting SPO2 to less than 85% and when escalating delivery device., 2L oxygen via NC continuous at night and with naps Piperacillin-Tazobactam (Zosyn) 4.5 g in 100 mL NSS ivpb (FOUR hour infusion) IV Piggyback, 4.5 g, Q8H, 15 doses, First dose (after last modification) on Sat04/02/24 at 1100, Last dose on Sat04/07/24 at 0600, Administer over 4 Hours, at 26.25 mL/hr New Bag 04/06/2024 2:23 PM EST 4.5 g 26.25 mL/hr New Bag 04/06/2024 5:33 AM EST 4.5 g 26.25 mL/hr Rate Verify 04/05/2024 10:27 PM EST 1.125 g/hr 26.25 mL/hr Piperacillin-Tazobactam (Zosyn) 4.5 g in 100 mL NSS ivpb (HALF hour infusion) IV Piggyback, 4.5 g, ONCE, 1 dose, On Sat04/02/24 at 0345, Administer over 30 Minutes Rate Verify 04/02/2024 4:00 AM EST 9 g/hr 210 mL/hr New Bag 04/02/2024 3:40 AM EST 4.5 g 210 mL/hr polyvinyl alcohol-povidone PF (Refresh) ophthalmic solution 1 Drop 1 Drop, Both eyes, BID PRN Dry eyes, Starting on Sat04/03/24 at 1847, Until Sat04/17/24 at 1643 potassium chloride ER tab 20 mEq 20 mEq, Oral, ONCE, On 04/11/24 at 0800, For 1 dose, This med should NOT be Crushed or Chewed Given 04/11/2024 8:11 AM EST 20 mEq potassium chloride ER tab 20 mEq 20 mEq, Oral, ONCE, On 04/12/24 at 0815, For 1 dose, This med should NOT be Crushed or Chewed Given 04/12/2024 8:37 AM EST 20 mEq potassium chloride ER tab 30 mEq 30 mEq, Oral, ONCE, On [place] 04/09/24 at 0830, For 1 dose, This med should NOT be Crushed or Chewed Given 04/09/2024 9:31 AM EST 30 mEq potassium chloride ER tab 40 mEq 40 mEq, Oral, ONCE, On Sat04/05/24 at 0500, For 1 dose, This med should NOT be Crushed or Chewed Given 04/05/2024 5:39 AM EST 40 mEq potassium chloride ER tab 40 mEq 40 mEq, Oral, ONCE, On Sat04/08/24 at 1400, For 1 dose, This med should NOT be Crushed or Chewed Given 04/08/2024 2:31 PM EST 40 mEq ranolazine ER (Ranexa) tab ER 1,000 mg 1,000 mg, Oral, BID (.AM/PM), First dose on Sat04/10/24 at 2100, Until Discontinued Given 04/17/2024 8:33 AM EST 1,00 0 mg Given 04/16/2024 8:42 PM EST 1,000 mg Given 04/16/2024 7:50 AM EST 1,000 mg Saline ([place]) nasal spray 1 [place], Nasal, PRN Other, nasal dryness, Starting on 04/11/24 at 0403, Until Sat04/17/24 at 1643 sodium chloride 0.9 % flush central line 10 mL 10 mL, IV Push, Q8H, First dose on Sat04/07/24 at 1400, Until Discontinued, TO UNUSED PORTS Do not flush if lock, PICC, or central line not in place; IV infusing or unable to flush. Given 04/17/2024 6:0 0 AM EST 10 mL Given 04/15/2024 2:00 PM EST 10 mL Given 04/14/2024 6:00 AM EST 10 mL sodium chloride 0.9 % flush peripheral radha 3 mL 3 mL, IV Push, Q8H, First dose on Sat04/02/24 at 0600, Until Discontinued, Do not flush if lock, PICC, or central line not in place; IV infusing or unable to flush. Given 04/15/2024 2:00 PM EST 3 mL Given 04/14/2024 6:00 AM EST 3 mL Given 04/09/2024 10:00 PM EST 3 mL tamsulosin (Flomax) cap 0.4 mg 0.4 mg, Oral, BID (.AM/PM), First dose on Sat04/03/24 at 0900, Until Discontinued, Administer 30 min after meal. This med should NOT be Crushed or Chewed or opened! ORAL administration only!! Given 04/17/2024 8:33 AM EST 0.4 mg Given 04/16/2024 8:42 PM EST 0.4 mg Given 04/16/2024 7:51 AM EST 0.4 mg documented in this encounter Active and Recently Administered Medications Times are shown in EST. Scheduled Medication Order 04/15/2024 04/16/2024 04/17/2024 ampicillin-sulbactam in NSS (Unasyn) ivpb 3 g (COMPLETED) 3 g, IV Piggyback, Q6H, 40 doses, First dose on Sat04/06/24 at 1800, Last dose on Sat04/16/24 at 1200, MIX BEFORE ADMINISTERING! 0002 (New Bag - Provider: Lele Baeza RN)0032 (Stopped - Provider: Lele Baeza RN)0601 (New Bag - Provider: Lele Baeza RN)0631 (Stopped - Provider: Norma Mazariegos LPN)1128 (New Bag - Provider: Norma Mazariegos LPN)1158 (Stopped - Provider: Norma Mazariegos LPN)1745 (New Bag - Provider: Norma Mazariegos LPN)1815 (Stopped - Provider: Lele Baeza RN) 0001 (New Bag - Provider: Lele Baeza RN)0032 (Stopped - Provider: Lele Baeza RN)0602 (New Bag - Provider: Lele Baeza RN)0632 (Stopped - Provider: Lele Baeza RN)1128 (New Bag - Provider: Margaret Nieto RN) Apixaban (Eliquis) tab 5 mg 5 mg, Oral, BID (.AM/PM), First dose (after last modification) on Sat04/12/24 at 2100, Until Discontinued 08 (Given - Provider: Norma Mazariegos LPN)2056 (Given - Provider: Lele Baeza RN) 075 (Given - Provider: Margaret Nieto RN)2041 (Given - Provider: Maggie Frausto RN) 0833 (Given - Provider: Jacinta M Dionicio, RN) aspirin chew tab 81 mg 81 mg, Oral, HS, First dose on Sat04/02/24 at 2315, Until Discontinued 2056 (Given - Provider: Lele Baeza RN) 2041 (Given - Provider: Maggie Frausto RN) Bumetanide (Bumex) tab 0.5 mg 0.5 mg, Oral, Daily(AM), First dose (after last modification) on Sat04/17/24 at 0700, Until Discontinued 07 (Given - Provider: Maggie Frausto RN) Bumetanide (Bumex) tab 1 mg (CANCELED) 1 mg, Oral, Daily(AM), First dose on Sat04/14/24 at 1045, Until Discontinued 08 (Given - Provider: Norma Mazariegos LPN) 0750 (Given - Provider: Margaret Nieto RN) insulin aspart (NovoLOG) inj Subcutaneous, WITH MEALS, First dose on Sat04/14/24 at 1215, Until Discontinued, LOW DOSE (Elderly insulin sensitive patient): Sliding Scale Correctional insulin may be given if the patient is NPO. Dose based on standard build from Insulin Calculator. Do not modify insulin doses in administration instructions!, Glucose less than 70 instructions: Obtain STAT lab blood glucose and call covering provider., Glucose 80-150 (units): 0, Glucose 151-200 (units): 1, Glucose 201-250 (units): 2, Glucose 251-300 (units): 3, Glucose greater than 300 (units): 4, Glucose greater than 300 instructions: Give suggested insulin dose and call covering provider. 0800 (No Insulin - Provider: Norma Mazariegos LPN - Reason: Parameter(s) Not Met)1127 (Given - Provider: Norma Mazariegos LPN)1700 (No Insulin - Provider: Norma Mazariegos LPN - Reason: Parameter(s) Not Met) 0800 (No Insulin - Provider: Margaret Nieto RN - Reason: Parameter(s) Not Met)1126 (Given - Provider: Margaret Nieto RN)1700 (No Insulin - Provider: Margaret Nieto RN - Reason: Parameter(s) Not Met) 0800 (No Insulin - Provider: Jacinta Greenberg RN - Reason: Parameter(s) Not Met)1200 (No Insulin - Provider: Jacinta Greenberg RN - Reason: Parameter(s) Not Met) isosorbide mononitrate SA (Imdur) tab 120 mg 120 mg, Oral, Daily(AM), First dose (after last reorder) on Sat04/14/24 at 0900, Until Discontinued, Hold for 24 hours prior to Stress Test and notify service if dose is held This med should NOT be Crushed or Chewed 0816 (Given - Provider: Norma Mazariegos LPN) 0750 (Given - Provider: Margaret Nieto RN) 0833 (Given - Provider: Jacinta Greenberg RN) Magnesium L-Lactate SR (Mag-Tab SR) tab 84 mg 84 mg, Oral, Daily(AM), First dose on Sat04/14/24 at 1115, Until Discontinued, DO NOT CRUSH! Each tablet contains 84 mg elemental magnesium 0816 (Given - Provider: Norma Mazariegos LPN) 0751 (Given - Provider: Margaret Nieto RN) 0833 (Given - Provider: Jacinta Greenberg RN) Metoprolol Tartrate (Lopressor) tab 12.5 mg 12.5 mg, Oral, Q12H, First dose on Sat04/13/24 at 2100, Until Discontinued, Hold for HR less than 60 or SBP below 100 and notify service if dose is held 0816 (Given - Provider: Norma Mazariegos LPN)2056 (Given - Provider: Lele Baeza RN) 0750 (Given - Provider: Margaret Nieto RN)2041 (Given - Provider: Maggie Frausto RN) 0832 (Given - Provider: Jacinta Greenberg RN) Nutrisource (soluble fiber packet) 1 Packet, Oral, Daily(AM), First dose on Sat04/11/24 at 0900, Until Discontinued, Stir one packet into at least 4 oz of any hot or cold beverage or prepared soft food, including purees. Stir until dissolved. Tube Feedin. Flush feeding tube with 30 mL water. 2. Pour packet into a 4-6 fl oz container. 3. Add 120 mL water and mix well with a disposable spoon or tongue blade. 4. Administer Nutrisource via syringe. 5. Flush with 30 mL of water. 0816 (Given - Provider: Norma Mazariegos LPN) 0750 (Given - Provider: Margaret Nieto RN) 0900 (Not Given - Provider: Jacinta Greenberg RN - Reason: Refused-Notify Provider - Comment: Dr Gongora made aware of no BMs in 2 days) Nystatin (Nystop) powder Topical, BID (.AM/PM), First dose on Sat04/11/24 at 0900, Until Discontinued, Apply to groin 0817 (Given - Provider: Norma Mazariegos LPN)2056 (Given - Provider: Lele Baeza RN) 075 (Given - Provider: Margaret Nieto RN)2041 (Given - Provider: Maggie Frausto RN) 0835 (Given - Provider: Jacinta Greenberg RN) omeprazole (PriLOSEC) cap 20 mg 20 mg, Oral, Daily(AM), First dose on Sat04/03/24 at 0900, Until Discontinued 0816 (Given - Provider: Norma Mazariegos LPN) 075 (Given - Provider: Margaret Nieto RN) 0833 (Given - Provider: Jacinta Greenberg RN) oxygen GAS Inhalation, OXYGEN, First dose on Sat04/13/24 at 1115, Until Discontinued, Device/Managed by: Low Flow Device, Goal SPO2 (%): 91-95, Starting Device: Nasal Cannula, Initial Flow Rate (LPM): 2, Lowest Support: Nasal Cannula: Flow 0-6 LPM. Titrate up/down by 1 LPM., Titration Interval: Q2 minutes and as needed., Notify Provider: For sudden DECREASE in resting SPO2 to less than 85% and when escalating delivery device., 2L oxygen via NC continuous at night and with naps 0001 (Oxygen Off - Provider: Lele Baeza RN)0800 (Oxygen Off - Provider: Norma Mazariegos LPN)1600 (Oxygen Off - Provider: Norma Mazariegos LPN)2317 (Oxygen Off - Provider: Lele Baeza RN) 075 (Oxygen Off - Provider: Margaret Nieto RN)1600 (Oxygen Off - Provider: Margaret Nieto RN) 0000 (Oxygen Off - Provider: Maggie Frausto RN)0800 (Oxygen Off - Provider: Jacinta Greenberg RN) ranolazine ER (Ranexa) tab ER 1,000 mg 1,000 mg, Oral, BID (.AM/PM), First dose on Sat04/10/24 at 2100, Until Discontinued 0816 (Given - Provider: Norma Mazariegos LPN)2056 (Given - Provider: Lele Baeza RN) 0750 (Given - Provider: Margaret Nieto RN)204 (Given - Provider: Maggie Frausto RN) 0833 (Given - Provider: Jacinta Greenberg RN) sodium chloride 0.9 % flush central line 10 mL 10 mL, IV Push, Q8H, First dose on Sat04/07/24 at 1400, Until Discontinued, TO UNUSED PORTS Do not flush if lock, PICC, or central line not in place; IV infusing or unable to flush. 0500 (Not Given - Provider: Lele Baeza RN - Reason: Parameter(s) Not Met)1400 (Given - Provider: Norma Mazariegos LPN)2058 (Not Given - Provider: Lele Baeza RN - Reason: Parameter(s) Not Met) 0500 (Not Given - Provider: Lele Baeza RN - Reason: Parameter(s) Not Met)1400 (Not Given - Provider: Margaret Nieto RN - Reason: Parameter(s) Not Met)2200 (Not Given - Provider: Maggie Frausto RN - Reason: Parameter(s) Not Met) 0600 (Given - Provider: Maggie Frausto RN) sodium chloride 0.9 % flush peripheral radha 3 mL 3 mL, IV Push, Q8H, First dose on Sat04/02/24 at 0600, Until Discontinued, Do not flush if lock, PICC, or central line not in place; IV infusing or unable to flush. 0500 (Not Given - Provider: Lele Baeza RN - Reason: Parameter(s) Not Met)1400 (Given - Provider: Norma Mazariegos LPN)2058 (Not Given - Provider: Lele Baeza RN - Reason: Parameter(s) Not Met) 0500 (Not Given - Provider: Lele Baeza RN - Reason: Parameter(s) Not Met)1400 (Not Given - Provider: Margaret Nieto RN - Reason: Parameter(s) Not Met)2200 (Not Given - Provider: Maggie Frausto RN - Reason: Parameter(s) Not Met) 0600 (Not Given - Provider: Maggie Frausto RN - Reason: Parameter(s) Not Met) tamsulosin (Flomax) cap 0.4 mg 0.4 mg, Oral, BID (.AM/PM), First dose on Sat04/03/24 at 0900, Until Discontinued, Administer 30 min after meal. This med should NOT be Crushed or Chewed or opened! ORAL administration only!! 0817 (Given - Provider: Norma Mazariegos LPN)2056 (Given - Provider: Lele Baeza RN) 075 (Given - Provider: Margaret Nieto RN)2041 (Given - Provider: Maggie Frausto RN) 0833 (Given - Provider: Jacinta Greenberg RN) Vitamin B-12 (Cyanocobalamin) inj 1,000 mcg 1,000 mcg, Intramuscular, [id number], First dose (after last modification) on Sat06/15/24 at 1000, Last dose on Sat10/03/26 at 1000, For 11 doses PRN Medication Order 04/15/2024 04/16/2024 04/17/2024 Albuterol Sulfate (Proventil) (2.5 MG/3ML) 0.083% inhalation solution 2.5 mg 2.5 mg, Nebulizer, Q4H PRN Dyspnea, Starting on [place] 04/09/24 at 1234, Until Sat04/17/24 at 1643 dextrose 50% inj 25 mL 25 mL, IV Push, PRN Hypoglycemia, Other, For blood glucose 54 - 69 mg/dL or 70 - 100 mg/dL with symptoms AND patient is unresponsive, NPO, OR unable to swallow, Starting on Tu04/14/24 at 0719, Until Sat04/17/24 at 1643, Administer IV. Recheck blood glucose after 15 minutes. Notify provider. dextrose 50% inj 50 mL 50 mL, IV Push, PRN Hypoglycemia, Other, For blood glucose below 54 mg/dL AND patient unresponsive, NPO, OR unable to swallow, Starting on Sat04/14/24 at 07, Until Sat04/17/24 at 1643, Administer IV. Recheck blood glucose in 15 minutes. Notify provider. glucagon (Glucagen) inj 1 mg 1 mg, Intramuscular, PRN Hypoglycemia, Other, If patient is unresponsive, or NPO and has no IV access, Starting on Sat04/14/24 at 07, Until Sat04/17/24 at 1643, NPO and no IV access with either 1) blood glucose less than 100 mg/dL and symptomatic OR 2) blood glucose less than 70 mg/dL and asymptomatic Glucose (Glutose 15) 40 % gel 15 g of glucose 15 g of glucose, Oral, PRN Hypoglycemia (low sugar), Other, For blood glucose 54 - 69 mg/dL or 70 - 100 mg/dL with symptoms AND patient alert WITH difficulty chewing/swallowing, Starting on Sat04/14/24 at 07, Until Sat04/17/24 at 164, Administer gel. Recheck blood glucose after 15 minutes. Notify provider. 37.5 gram tube = 15 grams glucose = 1 each Glucose (Glutose 15) 40 % gel 30 g of glucose 30 g of glucose, Oral, PRN Hypoglycemia (low sugar), Other, For blood glucose below 54 mg/dL AND patient alert WITH difficulty chewing/swallowing, Starting on Sat04/14/24 at 07, Until Sat04/17/24 at 1643, Administer gel. Recheck blood glucose after 15 minutes. Notify provider. 37.5 gram tube = 15 grams glucose = 1 each glucose chew tab 16 g 16 g, Oral, PRN Hypoglycemia, Other, For blood glucose 54 - 69 mg/dL or 70 - 100 mg/dL with symptoms and patient alert without difficulty chewing/swallowing., Starting on Sat04/14/24 at 0719, Until Sat04/17/24 at 1643 polyvinyl alcohol-povidone PF (Refresh) ophthalmic solution 1 Drop 1 Drop, Both eyes, BID PRN Dry eyes, Starting on Sat04/03/24 at 1847, Until Sat04/17/24 at 1643 Saline ([place]) nasal spray 1 [place], Nasal, PRN Other, nasal dryness, Starting on Sat04/11/24 at 0403, Until 04/17/24 at 1643 documented in this encounter Additional Health Concerns Infection Onset Date Last Indicated Resolved Time Respiratory Rule-Out 04/02/2024 04/02/2024 025 12:20 PM EST COVID-19 Rule-Out 04/02/2024 04/02/2024 04/02/2024 12:20 PM EST C. difficile Rule-Out 04/02/2024 04/02/20242024 7:23 PM EST documented as of this encounter Advance Directives [...] of Attor ila? No Care Teams Mortgage Loan Reviewer Relationship Specialty Start Date End Date Pedro Luis Matute DO [address] [place] [address] PCP - General Internal Medicine 09/09/23 documented as of this encounter
--- OUTSIDE RECORDS SUMMARY | 2024-04-25 17:56 | External Medical Summary | Summary of Care ---
Author Name Unknown Organization [facility] Address [address] [place] [address] Phone [phone] Care Team Providers Care Sawmill Manager Name Role Phone Pedro Luis Bowens DO Primary Care Provider [phone] Reason for Visit * Reason Onset Date Comments [facility]: Screening 04/17/2024 Encounter Details Date Type Department Care Team (Late st Contact Info) Description 04/17/2024 Telephone [facility] [address] [place] [address] Darlene Munoz LPN [address] [place] [address] [facility]: Screening Allergies Active Allergy [...] tablets)). 30 Tablet 04/17/2024 12:21 PM EST Active Aspirin 81 MG Oral Tablet Chewable [...] morning 60 Tablet 04/17/2024 12:21 PM EST Active Nitroglycerin 0.4 MG Sublingual Tablet Sublingual (Nitrostat) Place 1 tablet under tongue as needed for chest pain. May repeat for 3 total tablets within 15 minutes. If chest pain continues, call 911 25 Tablet 3 04/17/2024 12:21 PM EST 5 Active Ranolazine ER 1000 MG Oral Tablet Extended Release 12 HourIndications :Coronary artery disease of [place] artery of [place] heart with stable angina pectoris (HCC) Take 1 Tablet by mouth two times per day (morning & before bedtime). 200 Tablet 3 04/17/2024 12:21 PM EST 5 Active Apixaban 5 MG Oral Tablet (Eliquis) Take 1 Tablet by mouth in the morning and 1 Tablet before bedtime. 60 Tablet 04/17/2024 12:21 PM EST Active metFORMIN HCl ER 500 MG Oral Tablet Extended Release 24 Hour (Glucophage XR) Take 2 Tablets by mouth 2 times a day (with morning and evening meals). 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 DX: E11.9 1 Kit 04/17/2024 12:21 PM EST Active Potassium Chloride ER 10 MEQ Oral Tablet Extended ReleaseIndicati ons:Bilateral leg edema Take 1 Tablet by mouth every morning. 30 Tablet 5 04/17/2024 12:21 PM EST 5 Active Tab-A-Lilo Oral Tablet Take 1 Tablet by mouth every evening. 30 Tablet 04/17/2024 12:21 PM EST 5 Active Fluticasone Propionate 50 MCG/ACT Nasal Suspension (Flonase)Indica tions:Chronic maxillary sinusitis Administer 1 [place] into nostril in the morning. 48 g 3 04/17/2024 12:21 PM EST 5 Active Pantoprazole Sodium 20 MG Oral Tablet Delayed Release (Protonix)Indic ations:Gastroes ophageal reflux disease without esophagitis Take 1 Tablet by mouth every morning. 100 Tablet 3 04/17/2024 12:21 PM EST 5 Active Vitamin D3 25 MCG (1000 UT) Oral Tablet (Vitamin D3) Take 1 tablet by mouth every evening. 30 Tablet 04/17/2024 12:21 PM EST Active documented as of this encounter (statuses as of 04/17/2024) Active Problems Problem Noted Date Diagnosed Date Hyponatremia 04/04/2024 Goals of care, counseling/discussion 04/02/2024 Palliative care encounter 04/02/2024 Pancytopenia 04/01/2024 Secondary malignant neoplasm of liver and intrahepatic bile duct 02/17/2024 Malignant neoplasm of head of pancreas Metastasis from pancreatic cancer 01/28/2024 Encounter for antineoplastic chemotherapy 2023 Atherosclerosis of [place] ar teries of extremities with rest pain, bilateral legs 11/08/2023 Pulmonary hypertension, unspecified 07/17/2022 B12 deficiency 03/22/2022 Moderate aortic stenosis 11/28/2021 Occupational exposure to noise 09/27/2020 Coronary artery disease of n ative artery of [place] heart with stable angina pectoris 09/17/2019 [...] organism 04/04/2024 04/15/2024 Acute cholecystitis 04/02/2024 04/15/19 25 Sepsis without acute organ dysfunction 04/02/2024 04/15/2024 [...] Per HTN Protocol #27. [employer] Other*[id number] 09/23/2009 05/01/2016 Overview (09/23/2009): Study Titile: Genomic Markers for Patients with Cardiovascular Disease Project #[id number] PI: Estela Sandoval MD Please call [phone] with study related questions Dyslipidemia, goal LDL [...] CG/0.3 mL, 12 YRS AND ABOVE, IM [facility] 12/26/2023 COVID-19, MRNA-LNP, PF, 49 M CG/0.5 [...] encounter Miscellaneous Notes * Telephone Encounter - Precious Hay RN - 04/17/2024 1:33 PM EST Spoke to Tonny on his way home from [place]. Unfortunately, Michi does not go to [place] where he lives, even though his address listed in [facility] is [place]. I do not know why he has two addresses? [facility] appt made for 04/21 at 1040. call center coordinator case manager specialist will be calling and speaking with Tonny tomorrow and Saturday. This CM will be calling Tonny on Saturday AM. When asked, Tonny does state he feels safe and fine to go home. CM called [facility]. They are planned to see him tomorrow, no set time. Will be determined later this evening. * Telephone Encounter - Pedro Luis Bowens DO - 04/17/2024 12:31 PM EST I am concerned about the patient at home. He has metastatic pancreatic cancer and [facility]. He is debilitated should probably go toSNF prior to returning home. [facility] cannot provide 24 hour care * Telephone Encounter - Precious Hay RN - 04/17/2024 11:53 AM EST Excellent, thank you. I know he will have HH on discharge, but PCP continues to have concerns regarding being able to care for himself at home, as sig other is also not well. (I believe she also has cancer). Please keep me updated. Thank you very much. Dr. Bowens-- additional concerns you want addressed with [facility]? * Telephone Encounter - Darlene Munoz LPN - 04/17/2024 11:28 AM EST Michael Gutierrez was referred as a potential candidate for enrollment for [facility]. A review of this chart was completed and: Michael meets criteria for [facility]. Jump to Initiation Pt currently admitted. Added to hosp list will follow for d/c. Darlene Munoz LPN [facility] 04/17/2024,11:28 AM documented in this encounter Plan of Treatment Upcoming Encounters Date Type Department Care Team (Late st Contact Info) Description 04/21/2024 10:40 AM EST Office Visit Family Practice [address], [place] [address] [place] [address] Pedro Luis Bowens, DO [address] [facility] [place] [address] 04/28/2024 9:30 AM EST Office Visit Hematology/Oncology [facility] [address] [facility] [place] [place] [address] Marimar Del Castillo MD [address] [facility] [place] [address] 07/08/2024 2:00 PM EDT Office Visit Infectious Disease [facility] [address] [facility] [place] [address], DO [address] [place] [address] Scheduled Procedures Name Priority Associated Diagnoses Date/Ti me ENDOSCOPIC RETROGRADE CHOLANGIOPANCREATOGRAPHY (ERCP) DIAGNOSTIC Recall Cholangitis Health Maintenance Due Date Last Done Comments Adult Wellness Visit 12/15/2021 12/15/2020 Depression Screening 03/02/2025 03/02/2024 Zoster Vaccines Completed 09/17/2019, 03/19/2019, 0 12/20/2011 Albumin/Creatinine Ratio Discontinued 2 024, 07/17/2022, 07/05/2021, Additional history exists Diabetic Foot Exam Discontinued 07/12/2023, 0 07/17/2022, 07/11/2021, Additional history exists Diabetic Eye Exam Discontinued 07/22/2023, , 07/12/2022, Additional history exists COVID-19 Vaccine Discontinued 12/26/2023, 03/2022, 03/01/2022, Additional history exists Influenza Vaccine (FLU shot) Completed 05/2023, 11/29/2022, 11/28/2021, Additional history exists documented as of this encounter Medical Devices Implanted Type Area Apparel Stock Checker Device Identifier Shelf Expiration Date Model / Serial / Lot Stent Bili Duodenal [id number] - [id number] Implanted:Qty : 1 on 01/16/2024 by Jose E Bai MD at ENDOSCOPY [facility] N/A: Stomach [employer] 12/02/2025 PBD-1031- 1007 / / [id number] Stent Viabil Biliary [id number] - [id number] Implanted:Qty : 1 on 04/02/2024 by Mars Anna DO at ENDOSCOPY [facility] [employer] [id number] 01/15/2027 [id number] / [id number] / [id number] documented as of this encounter Advance Directives [...] Care Agent (per Health Care Power of Paper Making Machine Operator document) Care Teams Sawmill Manager Relationship Specialty Start Date End Date Pedro Luis Bowens DO [address] [place] [address] PCP - General Internal Medicine 09/09/23 documented as of this encounter
--- OUTSIDE RECORDS SUMMARY | 2024-04-25 17:57 | External Medical Summary ---
Author Name Unknown Address Unknown Organization : Laboratory Report Ordering Provider Test Date Status SHAMEKA RIDDLE 04/15/2024 11:03:23 Final Observation Date Value Abnormality Reference (Units ) Status Glucose Point of Care 04/15/2024 11:03:23 227 Above high normal 70-120 (mg/dL) Final Performing Location
--- OUTSIDE RECORDS SUMMARY | 2024-04-25 17:57 | External Medical Summary ---
Author Name Unknown Address Unknown Organization : Laboratory Report Ordering Provider Test Date Status HAYDEN HOLLY 04/14/2024 16:11:38 Final Observation Date Value Abnormality Reference (Units ) Status Glucose Point of Care 04/14/2024 16:11:38 141 Above high normal 70-120 (mg/dL) Final Performing Location
--- OUTSIDE RECORDS SUMMARY | 2024-04-25 17:57 | External Medical Summary | Summary of Care ---
Author Name Unknown Organization [facility] Address [address] [place] [address] Phone [phone] Care Team Providers Care Director Plans Name Role Phone Pedro Luis Bowens DO Primary Care Provider [phone] Reason for Visit * Reason Onset Date Comments [facility]: Screening 04/17/2024 Encounter Details Date Type Department Care Team (Late st Contact Info) Description 04/17/2024 Telephone [facility] [address] [place] [address] Darlene Munoz LPN [address] [place] [address] [facility]: Screening Allergies Active Allergy [...] 3000 mg daily (6 tablets)). 30 Tablet 5 Active Aspirin 81 MG Oral Tablet Chewable Chew & swallow 1 tablet by mouth every night at bedtime. 100 Tablet 3 5 Active Magnesium Oxide 400 MG Oral Tablet Take 1 Tablet by mouth two times per day (morning & before bedtime). 30 Tablet 5 Active Isosorbide Mononitrate ER 60 MG Oral Tablet Extended Release 24 Hour (Imdur)Indicati ons:Old myocardial infarction Taking 2 tablets by mouth every morning 60 Tablet 5 Active Nitroglycerin 0.4 MG Sublingual Tablet Sublingual (Nitrostat) Place 1 tablet under tongue as needed for chest pain. May repeat for 3 total tablets within 15 minutes. If chest pain continues, call 911 25 Tablet 3 5 Active Ranolazine ER 1000 MG Oral Tablet Extended Release 12 HourIndications :Coronary artery disease of [place] artery of [place] heart with stable angina pectoris (HCC) Take 1 Tablet by mouth two times per day (morning & before bedtime). 200 Tablet 3 5 Active Apixaban 5 MG Oral Tablet (Eliquis) Take 1 Tablet by mouth in the morning and 1 Tablet before bedtime. 60 Tablet 5 Active metFORMIN HCl ER 500 MG Oral Tablet Extended Release 24 Hour (Glucophage XR) Take 2 Tablets by mouth 2 times a day (with morning and evening meals). 360 Tablet 3 5 Active Bacid Oral Capsule Take 1 Capsule by mouth daily before breakfast. 30 Capsule 5 Active Ondansetron HCl 8 MG Oral Tablet (Zofran)Indicat ions: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) Take 1 Tablet by mouth every 8 hours as needed for Nausea. 30 Tablet 3 5 Active diphenhydrAMINE HCl 25 MG Oral Capsule (Benadryl)Indic ations:Metastas is from pancreatic cancer (HCC),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) Take 2 capsules by mouth [address] appt 2 Capsule 5 Active Prochlorperazin e Maleate 10 MG Oral Tablet (Compazine)Emily cations:Metasta sis from pancreatic cancer (HCC) Take 1 Tablet by mouth every 6 hours as needed for Nausea. 30 Tablet 3 5 Active Metoprolol Tartrate 25 MG Oral Tablet (Lopressor) Take one-half tablet by mouth two times per day (morning & before bedtime). 30 Tablet 5 Active predniSONE 50 MG Oral Tablet (Deltasone)Emily cations:Metasta sis from pancreatic cancer (HCC),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) Take 1 tablet by mouth at 13 hours, 7 hours, and [address] appt 3 Tablet 5 Active Lidocaine-Prilo chester 2.5-2.5 % External Cream (Emla)Indicatio ns: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) APPLY TO SKIN OVER MEDIPORT & COVER 1HR PRIOR TO ACCESSING. 30 g 1 5 Active Nystatin 912143 UNIT/GM External Powder (Nystop) Apply topically to affected area 2 times a day as needed (fungal rash). Apply to groin area 15 g 5 Active Bumetanide 0.5 MG Oral Tablet (Bumex) Take 1 Tablet by mouth every morning. 30 Tablet 5 Active Magic Swizzle (Lidocaine-Kimberlee dryl-Maalox) oral solutionIndicat ions:Oral pain Swish and spit 15 mL by mouth three times per day (morning, noon, & before bedtime). 300 mL 5 Active Tamsulosin HCl 0.4 MG Oral Capsule (Flomax) Take 1 Capsule by mouth two times per day (morning & before bedtime). 200 Capsule 2 5 Active Iron-Vitamin C 65-125 MG Oral Tablet (Vitron C) Take 1 Tablet by mouth every other day. 15 Tablet 5 Active OneTouch Ultra 2 w/Device KitIndications: [...] 4 times daily. DX: E11.9 1 Kit 5 Active Potassium Chloride ER 10 MEQ Oral Tablet Extended ReleaseIndicati ons:Bilateral leg edema Take 1 Tablet by mouth every morning. 30 Tablet 5 5 Active Tab-A-Lilo Oral Tablet Take 1 Tablet by mouth every evening. 30 Tablet 5 Active Fluticasone Propionate 50 MCG/ACT Nasal Suspension (Flonase)Indica tions:Chronic maxillary sinusitis Administer 1 [place] into nostril in the morning. 48 g 3 5 Active Pantoprazole Sodium 20 MG Oral Tablet Delayed Release (Protonix)Indic ations:Gastroes ophageal reflux disease without esophagitis Take 1 Tablet by mouth every morning. 100 Tablet 3 5 Active Vitamin D3 25 MCG (1000 UT) Oral Tablet (Vitamin D3) Take 1 tablet by mouth every evening. 30 Tablet 5 Active documented as of this encounter (statuses as of 04/17/2024) Active Problems Problem Noted Date Diagnosed Date Hyponatremia 04/04/2024 Goals of care, counseling/discussion 04/02/2024 Palliative care encounter 04/02/2024 Pancytopenia 04/01/2024 Secondary malignant neoplasm of liver and intrahepatic bile duct 02/17/2024 Malignant neoplasm of head of pancreas Metastasis from pancreatic cancer 01/28/2024 Encounter for antineoplastic chemotherapy 2023 Atherosclerosis of [place] ar teries of extremities with rest pain, bilateral legs 11/08/2023 Pulmonary hypertension, unspecified 07/17/2022 B12 deficiency 03/22/2022 Moderate aortic stenosis 11/28/2021 Occupational exposure to noise 09/27/2020 Coronary artery disease of n ative artery of [place] heart with stable angina pectoris 09/17/2019 Gastroesophageal [...] Per HTN Protocol #27. [employer] Other*[id number] 09/23/2009 05/01/2016 Overview (09/23/2009): Study Titile: Genomic Markers for Patients with Cardiovascular Disease Project #[id number] PI: Estela Sandoval MD Please call [phone] with study related questions Dyslipidemia, goal LDL [...] No 03/02/2024 Does the household have a [facility] hospital[facility] source of income? (Household - for [...] Entry Date Author No 04/02/2024 1:30 AM EST Zuri Mckinley RN documented in this encounter Miscellaneous Notes * Telephone Encounter - Darlene Munoz LPN [...] 04/28/2024 9:30 AM EST Office Visit Hematology/Oncology [facility] [address] [facility] [address] Marimar Del Castillo MD [address] [facility] [address] 07/08/2024 2:00 PM EDT Office Visit Infectious Disease [facility] [address] [facility] [address], DO [address] [place] [address] Scheduled Procedures Name Priority Associated Diagnoses Date/Ti [...] this encounter Medical Devices Implanted Type Area Hand Box Folder Device Identifier Shelf Expiration Date Model / Serial / Lot Stent Bili Duodenal [id number] - [id number] Implanted:Qty : 1 on 01/16/2024 by Jose E Bai MD at ENDOSCOPY [facility] N/A: Stomach [employer] 12/02/2025 PBD-1031- 1007 / / [id number] Stent Viabil Biliary [id number] - [id number] Implanted:Qty : 1 on 04/02/2024 by Mars Anna DO at ENDOSCOPY [facility] [employer] [id number] 01/15/2027 [id number] / [id number] / [id number] documented as of this encounter Advance Directives [...] Care Agent (per Health Care Power of Market Development Director document) Care Teams Director Plans Relationship Specialty Start Date End Date Pedro Luis Bowens DO [address] [place] [address] PCP - General Internal Medicine 09/09/23 documented as of this encounter
--- OUTSIDE RECORDS SUMMARY | 2024-04-25 17:57 | External Medical Summary | Summary of Care ---
Author Name Unknown Organization [facility] Address [address] [place] [address] Phone [phone] Care Team Providers Care Pheresis Specialist Name Role Phone Pedro Luis Bowens DO Primary Care Provider [phone] Reason for Visit * Reason Onset Date Comments [facility]: Screening 04/17/2024 Encounter Details Date Type Department Care Team (Late st Contact Info) Description 04/17/2024 Telephone [facility] [address] [place] [address] Darlene Munoz LPN [address] [place] [address] [facility]: Screening Allergies Active Allergy [...] Release 12 HourIndications :Coronary artery disease of [place] artery of [place] heart with stable angina pectoris (HCC) Take [...] ACCESSING. 30 g 1 5 Active Nystatin 373745 UNIT/GM External Powder (Nystop) Apply topically to [...] hemoglobin A1c goal of less than 7.0% ([facility]),DM type 2 causing vascular disease ([facility]),Diabetes mellitus due to underlying condition with [...] Suspension (Flonase)Indica tions:Chronic maxillary sinusitis Administer 1 [place] into nostril in the morning. 48 g [...] Encounter for antineoplastic chemotherapy 2023 Atherosclerosis of [place] ar teries of extremities with rest pain, bilateral legs 11/08/2023 Pulmonary hypertension, unspecified 07/17/2022 B12 deficiency 03/22/2022 Moderate aortic stenosis 11/28/2021 Occupational exposure to noise 09/27/2020 Coronary artery disease of n ative artery of [place] heart with stable angina pectoris 09/17/2019 Gastroesophageal [...] Per HTN Protocol #27. [employer] Other*[id number] 09/23/2009 05/01/2016 Overview (09/23/2009): Study Titile: Genomic Markers for Patients with Cardiovascular Disease Project #[id number] PI: Estela Sandoval MD Please call [phone] with study related questions Dyslipidemia, goal LDL [...] No 03/02/2024 Does the household have a [facility] source of income? (Household - for ages [...] Bowens-- additional concerns you want addressed with [facility]? * Telephone Encounter - Darlene Munoz [...] 04/28/2024 9:30 AM EST Office Visit Hematology/Oncology [facility] [address] [phone] Marimar Del Castillo MD [address] [address] 07/08/2024 2:00 PM EDT Office Visit Infectious Disease [facility] [place] [address] [place] [address] DO [address] [place] [address] Scheduled Procedures Name Priority Associated Diagnoses Date/Ti [...] this encounter Medical Devices Implanted Type Area Calculus Tutor Device Identifier Shelf Expiration Date Model / Serial / Lot Stent Bili Duodenal [id number] - [id number] Implanted:Qty : 1 on 01/16/2024 by Jose E Bai MD at [facility]OSCOPY [facility] N/A: Stomach [employer] 12/02/2025 PBD-1031- 1007 / / [id number] Stent Viabil Biliary [id number] - [id number] Implanted:Qty : 1 on 04/02/2024 by Mars Anna DO at ENDOSCOPY [facility] [employer] [id number] 01/15/2027 [id number] / [id number] / [id number] documented as of this encounter Advance Directives [...] Care Agent (per Health Care Power of Automotive Upholsterer document) Care Teams Pheresis Specialist Relationship Specialty Start Date End Date Pedro Luis Bowens DO [address] [place] [address] PCP - General Internal Medicine 09/09/23 documented as of this encounter
--- OUTSIDE RECORDS SUMMARY | 2024-04-25 17:57 | External Medical Summary ---
Author Name Unknown Address Unknown Organization : Laboratory Report Ordering Provider Test Date Status SHAMEKA RIDDLE 04/17/2024 06:20:44 Final Observation Date Value Abnormality Reference (Units ) Status Glucose Point of Care 04/17/2024 06:20:44 122 Above high normal 70-120 (mg/dL) Final Performing Location
--- OUTSIDE RECORDS SUMMARY | 2024-04-25 17:57 | External Medical Summary ---
Author Name Unknown Address Unknown Organization K01:[facility] [address] [facility] [address] Laboratory Report Ordering Provider Test Date Status SHAMEKA RIDDLE 04/17/2024 08:30:00 Final Observation Date Value Abnormality Reference (Units ) Status BUN 04/17/2024 08:30:00 16 6-20 (mg/dL) Final Creatinine 04/17/2024 08:30:00 0.7 0.6-1.2 (mg/dL) Final Glomerular filtration rate/1.73 sq M.predicted [Volume Rate/Area] in Serum, Plasma or Blood by Creatinine-based formula (CKD-EPI) 04/17/2024 08:30:00 >90 >=60 (mL/min) Final eGFR is calculated based on the CKD-EPI 2020 equation. Sodium 04/17/2024 08:30:00 130 Below low normal 135 -146 (mmol/L) Final Potassium 04/17/2024 08:30:00 4.0 3.5-5.1 (m mol/L) Final Cl 04/17/2024 08:30:00 97 Below low normal 98- 107 (mmol/L) Final CO2 04/17/2024 08:30:00 22 22-32 (mmo l/L) Final Anion gap 04/17/2024 08:30:00 11 7-15 (mmol /L) Final Glucose 04/17/2024 08:30:00 173 Above high normal 70 -120 (mg/dL) Final Calcium 04/17/2024 08:30:00 8.7 8.4-10.2 ( mg/dL) Final Performing Location [facility] [facility] [address] [facility] [address] [facility] [address]
--- OUTSIDE RECORDS SUMMARY | 2024-04-25 17:57 | External Medical Summary ---
Author Name Unknown Address Unknown Organization : Laboratory Report Ordering Provider Test Date Status SHAMEKA RIDDLE 04/15/2024 16:05:18 Final Observation Date Value Abnormality Reference (Units ) Status Glucose Point of Care 04/15/2024 16:05:18 130 Above high normal 70-120 (mg/dL) Final Performing Location
--- OUTSIDE RECORDS SUMMARY | 2024-04-25 17:57 | External Medical Summary ---
Author Name Unknown Address Unknown Organization K01:LABORATORY [facility] [place] - [address] [facility] [address] Laboratory Report Ordering Provider Test Date Status SHAMEKA RIDDLE 04/17/2024 08:30:00 Final Observation Date Value Abnormality Reference (Units ) Status WBC, Total 04/17/2024 08:30:00 7.91 4.00-10.80 (K/uL) Final RBC 04/17/2024 08:30:00 3.08 4.50-5.25 (M/uL) Final Hemoglobin 04/17/2024 08:30:00 9.2 Below low normal 14.0-16.8 (g/dL) Final HCT 04/17/2024 08:30:00 28.3 Below low normal 40.0-48.4 (%) Final MCV 04/17/2024 08:30:00 91.9 82.0-99.5 (fL) Final MCH 04/17/2024 08:30:00 29.9 27.0-34.0 (pg) Final MCHC 04/17/2024 08:30:00 32.5 32.0-36.0 (g/dL) Final RDW 04/17/2024 08:30:00 20.5 11.5-15.5 (%) Final Platelets 04/17/2024 08:30:00 222 140-400 (K/uL) Final MPV 04/17/2024 08:30:00 10.2 6.6-11.1 (fL) Final Nucleated erythrocytes/100 leukocytes [Ratio] in Blood by Automated count 04/17/2024 08:30:00 0 <=0 (/100 WBCs) Final Performing Location [facility]ATORY [facility] - [address] [facility] [address]
--- OUTSIDE RECORDS SUMMARY | 2024-04-25 17:57 | External Medical Summary | Summary of Care ---
Author Name Unknown Organization [facility] Address [address] [place] [address] Phone [phone] Care Team Providers Care Assurance Officer Name Role Phone Pedro Luis Bowens DO Primary Care Provider [phone] Reason for Visit * Reason Onset Date Comments [facility]: Screening 04/17/2024 Encounter Details Date Type Department Care Team (Late st Contact Info) Description 04/17/2024 Telephone [facility] [place] [address] [place] [address] Darlene Munoz LPN [address] [place] [address] [facility]: Screening Allergies Active Allergy [...] Release 12 HourIndications :Coronary artery disease of [place] artery of [place] heart with stable angina pectoris (HCC) Take [...] 04/17/2024 12:21 PM EST 5 Active Nystatin 165913 UNIT/GM External Powder (Nystop) Apply topically to [...] A1c goal of less than 7.0% ([facility]),DM type 2 causing vascular disease ([facility]),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 48 g [...] Encounter for antineoplastic chemotherapy 2023 Atherosclerosis of [place] ar teries of extremities with rest pain, bilateral legs 11/08/2023 Pulmonary hypertension, unspecified 07/17/2022 B12 deficiency 03/22/2022 Moderate aortic stenosis 11/28/2021 Occupational exposure to noise 09/27/2020 Coronary artery disease of n ative artery of [place] heart with stable angina pectoris 09/17/2019 Gastroesophageal [...] Per HTN Protocol #27. [employer] Other*[id number] 09/23/2009 05/01/2016 Overview (09/23/2009): Study Titile: Genomic Markers for Patients with Cardiovascular Disease Project #[id number] PI: Estela Sandoval MD Please call [phone] with study related questions Dyslipidemia, goal LDL [...] CG/0.3 mL, 12 YRS AND ABOVE, IM [facility] 12/26/2023 COVID-19, MRNA-LNP, PF, 49 M CG/0.5 [...] Miscellaneous Notes * Telephone Encounter - Pedro Lusi Bowens DO - 04/17/2024 12:31 PM EST I am concerned about the patient at home. He has metastatic pancreatic cancer [facility]. He [...] Bowens-- additional concerns you want addressed with [facility]? * Telephone Encounter - Darlene Munoz LPN [...] 04/28/2024 9:30 AM EST Office Visit Hematology/Oncology [facility] [place] [address] [facility] [place] [phone] Marimar Del Castillo MD [address] [facility] [place] [address] 07/08/2024 2:00 PM EDT Office Visit Infectious Disease [facility] [place] [address] [facility] [place] [address], DO [address] [facility] [address] Scheduled Procedures Name Priority Associated Diagnoses Date/Ti [...] this encounter Medical Devices Implanted Type Area Bag Presser Device Identifier Shelf Expiration Date Model / Serial / Lot Stent Bili Duodenal [id number] - [id number] Implanted:Qty : 1 on 01/16/2024 by Jose E Bai MD at ENDOSCOPY [facility] N/A: Stomach [employer] 12/02/2025 PBD-1031- [id number] / / [id number] Stent Viabil Biliary [id number] - [id number] Implanted:Qty : 1 on 04/02/2024 by Mars Anna DO [place] [facility] [employer] [id number] 01/15/2027 [id number] / [id number] / [id number] documented as of this encounter Advance Directives [...] Care Agent (per Health Care Power of Bridal Sales Consultant document) Care Teams Assurance Officer Relationship Specialty Start Date End Date Pedro Luis Bowens DO [address] [place] [address] PCP - General Internal Medicine 09/09/23 documented as of this encounter
--- OUTSIDE RECORDS SUMMARY | 2024-04-25 17:57 | External Medical Summary ---
Author Name Unknown Address Unknown Organization : Laboratory Report Ordering Provider Test Date Status SHAMEKA RIDDLE 04/15/2024 21:01:21 Final Observation Date Value Abnormality Reference (Units ) Status Glucose Point of Care 04/15/2024 21:01:21 232 Above high normal 70-120 (mg/dL) Final Performing Location
--- OUTSIDE RECORDS SUMMARY | 2024-04-25 17:57 | External Medical Summary ---
Author Name Unknown Address Unknown Organization K01:[facility] [place] [address] [facility] [address] Laboratory Report Ordering Provider Test Date Status SHAMEKA RIDDLE 04/16/2024 06:55:00 Final Observation Date Value Abnormality Reference (Units ) Status BUN 04/16/2024 06:55:00 15 6-20 (mg/dL) Final Creatinine 04/16/2024 06:55:00 0.7 0.6-1.2 (mg/dL) Final Glomerular filtration rate/1.73 sq M.predicted [Volume Rate/Area] in Serum, Plasma or Blood by Creatinine-based formula (CKD-EPI) 04/16/2024 06:55:00 >90 >=60 (mL/min) Final eGFR is calculated based on the CKD-EPI 2020 equation. Sodium 04/16/2024 06:55:00 130 Below low normal 135 -146 (mmol/L) Final Potassium 04/16/2024 06:55:00 4.3 3.5-5.1 (m mol/L) Final Cl 04/16/2024 06:55:00 99 98-107 (mm ol/L) Final CO2 04/16/2024 06:55:00 22 22-32 (mmo l/L) Final Anion gap 04/16/2024 06:55:00 9 7-15 (mmol /L) Final Glucose 04/16/2024 06:55:00 122 Above high normal 70 -120 (mg/dL) Final Calcium 04/16/2024 06:55:00 8.8 8.4-10.2 ( mg/dL) Final Performing Location [facility] [place] [address] [place] [address]
--- OUTSIDE RECORDS SUMMARY | 2024-04-25 17:57 | External Medical Summary | Summary of Care ---
Author Name Unknown Organization [facility] Address [address] [place] [address] Phone [phone] Care Team Providers Care Film Reader Name Role Phone Saroj Bowens DO Primary Care Provider [phone] Reason for Visit * Reason Onset Date Comments Appointment 04/14/2024 Encounter Details Date Type Department Care Team (Late st Contact Info) Description 04/14/2024 Telephone Infectious Disease, [place] [address] [place], [place] [id number] DO [address] [place], [place] [id number] Appointment Allergies Active Allergy Reactions Criticality Noted Date Comments Iodinated Contrast Media Rash 08/29/2009 Pt got a rash after his cath on 08/23/09 Levofloxacin 11/03/2009 Nausea jittery Lisinopril 10/01/2013 Cough Rash documented as of this encounter (statuses as of 04/14/2024) Medications Isosorbide Mononitrate ER 60 MG Oral Tablet Extended Release 24 Hour (Imdur)Indicati ons:Old myocardial infarction Taking 2 tablets in the morning 04/14/19 Active Metoprolol Tartrate 25 MG Oral Tablet (Lopressor) Take 0.5 Tablets by mouth in the morning and 0.5 Tablets before bedtime. 30 Tablet 04/14/19 25 025 Active Bumetanide 1 MG Oral Tablet (Bumex) Take 1 Tablet by mouth in the morning. 30 Tablet 04/15/19 25 025 Active oxygen IN GASIndications: SOB (shortness of breath) Administer 2 L/min(Oxygen) into nostril at bedtime. And with naps or if needed for shortness of breath 1 Each 04/14/19 25 Active ampicillin-sulb actam IV IJ (AMBULATORY) Administer 3 g intravenously every 6 hours for 2 days. 24 g 04/14/19 25 025 Active Nystatin 528750 UNIT/GM External Powder (Nystop) Apply topically to affected area 2 times a day as needed for Other (fungal rash) for up to 7 days. Apply to groin area 15 g 04/14/19 25 025 Active Apixaban 5 MG Oral Tablet (Eliquis) Take 1 Tablet by mouth in the morning and 1 Tablet before bedtime. 60 Tablet 04/14/19 25 025 Active ASPIRIN 81 MG PO CHEW Take 1 Tablet by mouth at bedtime. 100 Tab 3 08/25/19 10 Suspended Iron-Vitamin C 65-125 MG Tablet Take 1 Tablet by mouth every other day. Suspended Multiple Vitamin (MULTI-DAY) Tablet Take 1 Tablet by mouth every evening. Suspended Probiotic Product (PROBIOTIC ACIDOPHILUS BIOBEADS) Capsule Take 1 Cap by mouth daily before breakfast. 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 DX: E11.9 1 Kit 12/29/19 Suspended Vitamin D3 25 MCG (1000 UT) Oral Capsule Take 1 Capsule by mouth every evening. Suspended Ranolazine ER 1000 MG Oral Tablet Extended Release 12 HourIndications :Coronary artery disease of [place] artery of [place] heart with stable angina pectoris (HCC) TAKE ONE TABLET BY MOUTH TWICE A DAY 200 Tablet 3 4 4:58 PM EST 05/02/19 24 025 Suspended Tamsulosin HCl 0.4 MG Oral Capsule (Flomax) TAKE ONE CAPSULE BY MOUTH TWICE A DAY 200 Capsule 2 4 7:22 AM EST 08/07/19 24 025 Suspended Pantoprazole Sodium 20 MG Oral Tablet Delayed Release (Protonix)Indic ations:Gastroes ophageal reflux disease without esophagitis Take 1 Tablet by mouth in the morning. 100 Tablet 3 4 10:27 AM EST 11/08/19 24 Suspended Fluticasone Propionate 50 MCG/ACT Nasal Suspension (Flonase)Indica tions:Chronic maxillary sinusitis ADMINISTER ONE SPRAY INTO EACH NOSTRIL DAILY 48 g 3 4 2:12 PM EDT 01/20/20 24 Suspended Nitroglycerin 0.4 MG Sublingual Tablet Sublingual (Nitrostat) One tablet under tongue if needed for chest pain. May repeat 3 times. If chest pain continues, call 911 25 Tablet 3 01/27/20 24 Suspended Ondansetron HCl 8 MG Oral Tablet (Zofran)Indicat ions: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) Take 1 Tablet by mouth every 8 hours as needed for Nausea. 30 Tablet 3 02/04/20 24 Suspended Prochlorperazin e Maleate 10 MG Oral Tablet (Compazine)Emily cations:Metasta sis from pancreatic cancer (HCC) Take 1 Tablet by mouth every 6 hours as needed for Nausea. 30 Tablet 3 02/04/20 24 Suspended Lidocaine-Prilo chester 2.5-2.5 % External Cream (Emla)Indicatio ns: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) APPLY TO SKIN OVER MEDIPORT & COVER 1HR PRIOR TO ACCESSING. 30 g 1 02/04/20 24 Suspended Acetaminophen 500 MG Oral Tablet (Tylenol) Take 2 Tablets by mouth every 6 hours as needed for Pain, Breakthrough (up to 3000 mg daily (6 tablets)). Suspended Magnesium Oxide 400 MG Oral Tablet Take 1 Tablet by mouth in the morning and 1 Tablet before bedtime. 02/13/20 24 Suspended Magic Swizzle (Lidocaine-[place] dryl-Maalox) oral solutionIndicat ions:Oral pain Swish and spit 15 mL in the morning and 15 mL at noon and 15 mL before bedtime. 300 mL 02/18/20 24 Suspended metFORMIN HCl ER 500 MG Oral Tablet Extended Release 24 Hour (Glucophage XR) Take 2 Tablets by mouth 2 times a day with morning and evening meals. 360 Tablet 3 03/06/20 24 Suspended predniSONE 50 MG Oral Tablet (Deltasone)Emily cations:Metasta sis from pancreatic cancer (HCC),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) Take 1 tablet 13 hours, 7 hours, and [address] appt 3 Tablet 03/10/20 24 Suspended diphenhydrAMINE HCl 50 MG Oral Capsule (Benadryl)Indic ations:Metastas is from pancreatic cancer (HCC),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) Take 1 capsule [address] appt 1 Capsule 03/10/20 24 Suspended Potassium Chloride ER 10 MEQ Oral Capsule Extended ReleaseIndicati ons:Bilateral leg edema Take 1 Capsule by mouth in the morning. 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 Malignant neoplasm of head of pancreas 4 Metastasis from pancreatic cancer 01/28/2024 Encounter for antineoplastic chemotherapy 2023 Atherosclerosis of [place] ar teries of extremities with rest pain, bilateral legs 11/08/2023 Pulmonary hypertension, unspecified 07/17/2022 B12 deficiency 03/22/2022 Moderate aortic stenosis 11/28/2021 Occupational exposure to noise 09/27/2020 Coronary artery disease of n ative artery of [place] heart with stable angina pectoris 09/17/2019 Gastroesophageal [...] as of this encounter (statuses as of 04/14/2024) Resolved Problems Problem Noted Date Diagnosed Date [...] Per HTN Protocol #27. [employer] Other*[id number] 09/23/2009 05/01/2016 Overview (09/23/2009): Study Titile: Genomic Markers for Patients with Cardiovascular Disease Project #[id number] PI: Estela Sandoval MD Please call [phone] with study related questions Dyslipidemia, goal LDL below 70 08/30/2009 02/26/2013 HTN, goal below 130/80 08/30/200911/14 Overview: Per HTN Protocol #27. History of drug allergy 08/29/200906/23 Dyslipidemia, goal LDL below 70 08/23/2009 02/26/2013 ACEI/ARB contraindicated 09/2013 documented as of this encounter (statuses as of 04/14/2024) Immunizations Name Administration Dates Next Due COVID-19 [...] encounter Miscellaneous Notes * Telephone Encounter - Alyssa Han OSA - 04/14/2024 12:56 PM EST Please advise date and time for HD? Patient Name: MITCHEL HARMON([id number]) Sex: Male : 1945 PCP: SAROJ BOWENS Center: [facility] [address] Types of orders made on 04/14/2024: Communication, Diet, IP Post Discharge , Lab, Medications, Point of Care Testing, Point of Care Testing - Unsolicited Results, Referral Order Date:04/14/2024 Ordering User:JOHN BLAKE [[id number]] Attending Provider:Valdez Starr DO [[id number]] Authorizing Provider: John Blake MD [[id number]] Department:[address][[id number]] Order Specific Information Order: RETURN APPT [CUSTOM: [id number]] Order #: [id number]: 1 Priority: Routine Class: Nursing Unit Department (Single Entry) -> Infectious Disease Appt Needed Within: (Specify # of Days, Weeks, Months) -> 1 Mo Released on: 04/14/2024 11:55 AM Priority: Routine Class: Nursing Unit Department (Single Entry) -> Infectious Disease Appt Needed Within: (Specify # of Days, Weeks, Months) -> 1 Mo Released on: 04/14/2024 11:55 AM documented in this encounter Plan of Treatment Upcoming Encounters Date Type Department Care Team (Late st Contact Info) Description 04/28/2024 9:30 AM EST Office Visit Hematology/Oncology [place] [address] [place] [address] Marimar Del Castillo MD [address] [place] [address] [address] Scheduled Procedures Name Priority Associated Diagnoses Date/Ti [...] this encounter Medical Devices Implanted Type Area Sanding Line Operator Device Identifier Shelf Expiration Date Model / Serial / Lot Stent Bili Duodenal [id number] - [id number] Implanted:Qty : 1 on 01/16/2024 by Jose E Bai MD at ENDOSCOPY [facility] N/A: Stomach [employer] 12/02/2025 PBD-1031- 1007 / / [id number] Stent Viabil Biliary [id number] - [id number] Implanted:Qty : 1 on 04/02/2024 by Mars Anna DO [place] [facility] [place] [employer] [id number] 01/15/2027 [id number] / [id number] / [id number] documented as of this encounter Advance Directives [...] Care Agent (per Health Care Power of Certified Emergency Vehicle Technician document) Care Teams Film Reader Relationship Specialty Start Date End Date Saroj Bowens DO [address] [place] [address] PCP - General Internal Medicine 09/09/23 documented as of this encounter
--- OUTSIDE RECORDS SUMMARY | 2024-04-25 17:57 | External Medical Summary ---
Author Name Unknown Address Unknown Organization K01:[facility] [place] [facility] [address] [facility] [address] Laboratory Report Ordering Provider Test Date Status BLAISE COPELAND 04/14/2024 05:50:16 Final Observation Date Value Abnormality Reference (Units ) Status BUN 04/14/2024 05:50:16 15 6-20 (mg/dL) Final Creatinine 04/14/2024 05:50:16 0.6 0.6-1.2 (mg/dL) Final Glomerular filtration rate/1.73 sq M.predicted [Volume Rate/Area] in Serum, Plasma or Blood by Creatinine-based formula (CKD-EPI) 04/14/2024 05:50:16 >90 >=60 (mL/min) Final eGFR is calculated based on the CKD-EPI 2020 equation. Sodium 04/14/2024 05:50:16 133 Below low normal 135 -146 (mmol/L) Final Potassium 04/14/2024 05:50:16 4.0 3.5-5.1 (m mol/L) Final Cl 04/14/2024 05:50:16 99 98-107 (mm ol/L) Final CO2 04/14/2024 05:50:16 23 22-32 (mmo l/L) Final Anion gap 04/14/2024 05:50:16 11 7-15 (mmol /L) Final Glucose 04/14/2024 05:50:16 61 Below low normal 70- 120 (mg/dL) Final Calcium 04/14/2024 05:50:16 8.7 8.4-10.2 ( mg/dL) Final Performing Location [facility] [place] [address] [place] [address]
--- OUTSIDE RECORDS SUMMARY | 2024-04-25 17:57 | External Medical Summary ---
Author Name Unknown Address Unknown Organization : Laboratory Report Ordering Provider Test Date Status SHAMEKA RIDDLE 04/16/2024 11:03:58 Final Observation Date Value Abnormality Reference (Units ) Status Glucose Point of Care 04/16/2024 11:03:58 236 Above high normal 70-120 (mg/dL) Final Performing Location
--- OUTSIDE RECORDS SUMMARY | 2024-04-25 17:57 | External Medical Summary ---
Author Name Unknown Address Unknown Organization : Laboratory Report Ordering Provider Test Date Status SHAMEKA RIDDLE 04/16/2024 06:17:54 Final Observation Date Value Abnormality Reference (Units ) Status Glucose Point of Care 04/16/2024 06:17:54 125 Above high normal 70-120 (mg/dL) Final Performing Location
--- OUTSIDE RECORDS SUMMARY | 2024-04-25 17:57 | External Medical Summary | Summary of Care ---
Author Name Unknown Organization [facility] Address [address] [place] [address] Phone [phone] Care Team Providers Care Ui Programmer Name Role Phone Saroj Bowens DO Primary Care Provider [phone] Reason for Visit * Reason Onset Date Comments Appointment 04/14/2024 Encounter Details Date Type Department Care Team (Late st Contact Info) Description 04/14/2024 Telephone Infectious Disease, [place] [address] [place], [place] [phone] DO [address] [place], [place] [phone] Appointment Allergies Active Allergy Reactions Criticality Noted Date Comments Iodinated Contrast Media Rash 08/29/2009 Pt got a rash after his cath on 08/23/09 Levofloxacin 11/03/2009 Nausea jittery Lisinopril 10/01/2013 Cough Rash documented as of this encounter (statuses as of 04/15/2024) Medications Isosorbide Mononitrate ER 60 MG Oral [...] 24 g 04/14/19 25 025 Active Nystatin 173557 UNIT/GM External Powder (Nystop) Apply topically to [...] by mouth daily before breakfast. Suspend ed Upward Mobility Ultra 2 w/Device KitIndications: Type 2 diabetes [...] Release 12 HourIndications :Coronary artery disease of [place] artery of [place] heart with stable angina pectoris (HCC) TAKE [...] before bedtime. 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 Malignant neoplasm of head of pancreas Metastasis from pancreatic cancer 01/28/2024 Encounter for antineoplastic chemotherapy 2023 Atherosclerosis of [place] ar teries of extremities with rest pain, bilateral legs 11/08/2023 Pulmonary hypertension, unspecified 07/17/2022 B12 deficiency 03/22/2022 Moderate aortic stenosis 11/28/2021 Occupational exposure to noise 09/27/2020 Coronary artery disease of n ative artery of [place] heart with stable angina pectoris 09/17/2019 Gastroesophageal [...] as of this encounter (statuses as of 04/15/2024) Resolved Problems Problem Noted Date Diagnosed Date Resolved Date Acute hypoxic respiratory failure 04/07/2024 04/15/2024 Pneumonia of right upper lob e due to infectious organism 04/04/2024 04/15/2024 Acute cholecystitis 04/02/2024 04/15/19 Sepsis without acute organ dysfunction 04/02/2024 04/15/2024 Dehydration 02/24/2024 03/23/2024 Current mild episode of sania r depressive disorder without prior episode 03/22/2022 2 Current mild episode of sanai r depressive disorder without prior episode 09/27/2020 2 Dependent relative needing care at home 09/27/2020 11/28/2021 Diabetes mellitus due to und erlying condition with retinopathy and macular edema 09/17/201907/11 Inflamed seborrheic keratosis 07/28/2013 09/19/2018 HTN, GOAL BELOW 140/80 11/12/201106/29 Overview: Per HTN Protocol #27. [employer] Other*[id number] 09/23/2009 05/01/2016 Overview (09/23/2009): Study Titile: Genomic Markers for Patients with Cardiovascular Disease Project #[id number] PI: Estela Sandoval MD Please call [phone] with study related questions Dyslipidemia, goal LDL below 70 08/30/2009 02/26/2013 HTN, goal below 130/80 08/30/200911/14 Overview: Per HTN Protocol #27. History of drug allergy 08/29/200906/23 Dyslipidemia, goal LDL below 70 08/23/2009 02/26/2013 ACEI/ARB contraindicated 09/2013 documented as of this encounter (statuses as of 04/15/2024) Immunizations Name Administration Dates Next Due COVID-19 [...] Telephone Encounter - Alyssa Han OSA - 04/15/2024 1:56 PM EST Offer first available in [place] with anyone * Telephone Encounter - Alyssa Han OSA - 04/14/2024 12:56 PM EST Please advise date and time for HD? Patient Name: MITCHEL HARMON([id number]) Sex: Male : 1945 PCP: SAROJ BOWENS Center: [address] Types of orders made on 04/14/2024: Communication, Diet, IP Post Discharge , Lab, Medications, Point of Care Testing, Point of Care Testing - Unsolicited Results, Referral Order Date:04/14/2024 Ordering User:JOHN BLAKE [[id number]] Attending Provider:Valdez Starr DO [[id number]] Authorizing Provider: John Blake MD [[id number]] Department:[address][[id number]] Order Specific Information Order: RETURN APPT [CUSTOM: [id number]] Order #: [id number]: [id number] Priority: Routine Class: Nursing Unit Department [...] Office Visit Hematology/Oncology [place] [address] [facility] [place] [address] Marimar Del Castillo MD [address] [facility] [place] [address] Scheduled Procedures Name Priority Associated Diagnoses Date/Ti [...] this encounter Medical Devices Implanted Type Area Highway Design Engineer Device Identifier Shelf Expiration Date Model / Serial / Lot Stent Bili Duodenal [id number] - [id number] Implanted:Qty : 1 on 01/16/2024 by Jose E Bai MD at [facility]COPY [facility] N/A: Stomach [employer] 12/02/2025 PBD-1031- 1007 / / [id number] Stent Viabil Biliary [id number] - [id number] Implanted:Qty : 1 on 04/02/2024 by Mars Anna DO at [place] [facility] [place] [employer] JULIO CESAR [id number] 01/15/2027 [id number] / [id number] / [id number] documented as of this encounter Advance Directives [...] Care Agent (per Health Care Power of Smoking Pipe Liner document) Care Teams Ui Programmer Relationship Specialty Start Date End Date Saroj Bowens DO [address] [place] [address] PCP - General Internal Medicine 09/09/23 documented as of this encounter
--- OUTSIDE RECORDS SUMMARY | 2024-04-25 17:57 | External Medical Summary | Summary of Care ---
Author Name Unknown Organization [facility] Address [address] [place] [address] Phone [phone] Care Team Providers Care Automation Driver Name Role Phone Saroj Bowens DO Primary Care Provider [phone] Reason for Visit * Reason Onset Date Comments Appointment 04/14/2024 Encounter Details Date Type Department Care Team (Late st Contact Info) Description 04/14/2024 Telephone Infectious Disease, [place] [address], [place] [id number] DO [address], [place] [id number] Appointment Allergies Active Allergy Reactions Criticality Noted [...] 24 g 04/14/19 25 025 Active Nystatin [id number] UNIT/GM External Powder (Nystop) Apply topically to [...] by mouth daily before breakfast. Suspend ed Workstreamer Ultra 2 w/Device KitIndications: Type 2 diabetes [...] Release 12 HourIndications :Coronary artery disease of [place] artery of [place] heart with stable angina pectoris (HCC) TAKE [...] before bedtime. 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 [employer] Other*[id number] 09/23/2009 05/01/2016 Overview (09/23/2009): Study Titile: Genomic Markers for Patients with Cardiovascular Disease Project #[id number] PI: Estela Sandoval MD Please call [phone] with study related questions Dyslipidemia, goal LDL [...] Encounter - Alyssa Han OSA - 04/15/2024 1:58 PM EST Appt scheduled * Telephone Encounter - Alyssa Han OSA - 04/15/2024 1:56 PM EST Offer first available in [place] or [place] with anyone * Telephone Encounter - Alyssa Han OSA - 04/14/2024 12:56 PM EST Please advise date and time for HD? Patient Name: MITCHEL HARMON([id number]) Sex: Male : 1945 PCP: SAROJ BOWENS Center: [address] Types of orders made on 04/14/2024: Communication, Diet, IP Post Discharge , Lab, Medications, Point of Care Testing, Point of Care Testing - Unsolicited Results, Referral Order Date:04/14/2024 Ordering User:JOHN BLAKE [[id number]] Attending Provider:Valdez Starr DO [[id number]] Authorizing Provider: John Blake MD [[id number]] Department:BP8 IP [facility][[id number]] Order Specific Information Order: RETURN APPT [CUSTOM: [id number]] Order #: [id number]: [id number] Priority: Routine Class: Nursing Unit Department [...] AM EST Office Visit Hematology/Oncology [facility] [address] [facility] [place] [address] Marimar Del Castillo MD [address] [facility] [place] [address] 07/08/2024 2:00 PM EDT Office Visit Infectious Disease [facility] [address] [facility] [place] [address], DO [address] [place] [address] Scheduled Procedures Name Priority Associated Diagnoses Date/Ti [...] this encounter Medical Devices Implanted Type Area Grinder Operator External Tool Device Identifier Shelf Expiration Date Model / Serial / Lot Stent Bili Duodenal [id number] - [id number] Implanted:Qty : 1 on 01/16/2024 by Jose E Bai MD at ENDOSCOPY [facility] N/A: Stomach [employer] 12/02/2025 PBD-1031- [id number] / / [id number] Stent Viabil Biliary [id number] - [id number] Implanted:Qty : 1 on 04/02/2024 by Mars Anna DO at [facility]OSCOPY [facility] MARCEL HARRELL [id number] 01/15/2027 [id number] / [id number] / [id number] documented as of this encounter Advance Directives [...] Care Agent (per Health Care Power of Clerical And Administrative Workers document) Care Teams Automation Driver Relationship Specialty Start Date End Date Saroj Bowens DO [address] [place] [address] PCP - General Internal Medicine 09/09/23 documented as of this encounter
--- OUTSIDE RECORDS SUMMARY | 2024-04-25 17:57 | External Medical Summary ---
Author Name Unknown Address Unknown Organization : Laboratory Report Ordering Provider Test Date Status SHAMEKA RIDDLE 04/16/2024 16:08:07 Final Observation Date Value Abnormality Reference (Units ) Status Glucose Point of Care 04/16/2024 16:08:07 109 70-120 (mg/dL) Final Performing Location
--- OUTSIDE RECORDS SUMMARY | 2024-04-25 17:57 | External Medical Summary ---
Author Name Unknown Address Unknown Organization : Laboratory Report Ordering Provider Test Date Status SHAMEKA RIDDLE 04/16/2024 22:13:03 Final Observation Date Value Abnormality Reference (Units ) Status Glucose Point of Care 04/16/2024 22:13:03 178 Above high normal 70-120 (mg/dL) Final Performing Location
--- OUTSIDE RECORDS SUMMARY | 2024-04-25 17:57 | External Medical Summary ---
Author Name Unknown Address Unknown Organization : Laboratory Report Ordering Provider Test Date Status SHAMEKA RIDDLE 04/15/2024 06:13:29 Final Observation Date Value Abnormality Reference (Units ) Status Glucose Point of Care 04/15/2024 06:13:29 121 Above high normal 70-120 (mg/dL) Final Performing Location
--- OUTSIDE RECORDS SUMMARY | 2024-04-25 17:57 | External Medical Summary ---
Author Name Unknown Address Unknown Organization : Laboratory Report Ordering Provider Test Date Status HAYDEN HOLLY 04/14/2024 07:32:35 Final Observation Date Value Abnormality Reference (Units ) Status Glucose Point of Care 04/14/2024 07:32:35 58 Below low normal 70-120 (mg/dL) Final Performing Location
--- OUTSIDE RECORDS SUMMARY | 2024-04-25 17:57 | External Medical Summary ---
Author Name Unknown Address Unknown Organization : Laboratory Report Ordering Provider Test Date Status HAYDEN HOLLY 04/14/2024 11:37:41 Final Observation Date Value Abnormality Reference (Units ) Status Glucose Point of Care 04/14/2024 11:37:41 134 Above high normal 70-120 (mg/dL) Final Performing Location
--- OUTSIDE RECORDS SUMMARY | 2024-04-25 17:57 | External Medical Summary ---
Author Name Unknown Address Unknown Organization : Laboratory Report Ordering Provider Test Date Status HAYDEN HOLLY 04/14/2024 21:01:43 Final Observation Date Value Abnormality Reference (Units ) Status Glucose Point of Care 04/14/2024 21:01:43 190 Above high normal 70-120 (mg/dL) Final Performing Location
--- OUTSIDE RECORDS SUMMARY | 2024-04-25 17:57 | External Medical Summary ---
Author Name Unknown Address Unknown Organization K01:LABORATORY [facility] - [address] [facility] [address] Laboratory Report Ordering Provider Test Date Status SHAMEKA RIDDLE 04/16/2024 06:55:00 Final Observation Date Value Abnormality Reference (Units ) Status WBC, Total 04/16/2024 06:55:00 8.66 4.00-10.80 (K/uL) Final RBC 04/16/2024 06:55:00 3.13 4.50-5.25 (M/uL) Final Hemoglobin 04/16/2024 06:55:00 9.3 Below low normal 14.0-16.8 (g/dL) Final HCT 04/16/2024 06:55:00 28.8 Below low normal 40.0-48.4 (%) Final MCV 04/16/2024 06:55:00 92.0 82.0-99.5 (fL) Final MCH 04/16/2024 06:55:00 29.7 27.0-34.0 (pg) Final MCHC 04/16/2024 06:55:00 32.3 32.0-36.0 (g/dL) Final RDW 04/16/2024 06:55:00 20.5 11.5-15.5 (%) Final Platelets 04/16/2024 06:55:00 197 140-400 (K/uL) Final MPV 04/16/2024 06:55:00 10.1 6.6-11.1 (fL) Final Nucleated erythrocytes/100 leukocytes [Ratio] in Blood by Automated count 04/16/2024 06:55:00 0 <=0 (/100 WBCs) Final Performing Location [facility]ORY [facility] - [address] [facility] [address]
--- OUTSIDE RECORDS SUMMARY | 2024-04-25 17:57 | External Medical Summary ---
Author Name Unknown Address Unknown Organization : Laboratory Report Ordering Provider Test Date Status HAYDEN HOLLY 04/14/2024 08:39:34 Final Observation Date Value Abnormality Reference (Units ) Status Glucose Point of Care 04/14/2024 08:39:34 107 70-120 (mg/dL) Final Performing Location
--- OUTSIDE RECORDS SUMMARY | 2024-04-25 17:58 | External Medical Summary ---
Author Name Unknown Address Unknown Organization : Laboratory Report Ordering Provider Test Date Status HAYDEN HOLLY 04/12/2024 16:40:13 Final Observation Date Value Abnormality Reference (Units ) Status Glucose Point of Care 04/12/2024 16:40:13 85 70-120 (mg/dL) Final Performing Location
--- OUTSIDE RECORDS SUMMARY | 2024-04-25 17:58 | External Medical Summary | Summary of Care ---
Author Name Unknown Organization [facility] Address [address] [place] [address] Phone [phone] Care Team Providers Care Farmer Cash Grain Name Role Phone Pedro Luis Bowens DO Primary Care Provider [phone] Encounter Details Date Type Department Care Team (Late st Contact Info) Description 04/13/2024 Population Health External Data Unspecified Department Allergies Active Allergy Reactions Criticality Noted Date Comments Iodinated Contrast Media Rash 08/29/2009 Pt got a rash after his cath on 08/23/09 Levofloxacin 11/03/2009 Nausea jittery Lisinopril 10/01/2013 Cough Rash documented as of this encounter (statuses as of 04/13/2024) Medications ASPIRIN 81 MG PO CHEW Take 1 Tablet by mouth at bedtime. 100 Tab 3 010 Suspended Iron-Vitamin C 65-125 MG Tablet Take 1 Tablet by mouth every other day. Suspended Multiple Vitamin (MULTI-DAY) Tablet Take 1 Tablet by mouth every evening. Suspended Probiotic Product (PROBIOTIC ACIDOPHILUS BIOBEADS) Capsule Take 1 Cap by mouth daily before breakfast. 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 DX: E11.9 1 Kit Suspended Vitamin D3 25 MCG (1000 UT) Oral Capsule Take 1 Capsule by mouth every evening. Suspended Ranolazine ER 1000 MG Oral Tablet Extended Release 12 HourIndications: Coronary artery disease of [place] artery of [place] heart with stable angina pectoris ([facility]) TAKE ONE TABLET BY MOUTH TWICE A DAY 200 Tablet 3 4 4:58 PM EST 024 2024 Suspended Isosorbide Mononitrate ER 60 MG Oral Tablet Extended Release 24 Hour (Imdur)Indicatio ns:Old myocardial infarction TAKE ONE TABLET BY MOUTH TWICE A DAY 200 Tablet 2 4 7:22 AM EST 024 2024 Suspended Additional Information Patient taking differently: Taking 2 tablets in the morning, Reported on 03/23/2024 Tamsulosin HCl 0.4 MG Oral Capsule (Flomax) TAKE ONE CAPSULE BY MOUTH TWICE A DAY 200 Capsule 2 4 7:22 AM EST 024 2024 Suspended Pantoprazole Sodium 20 MG Oral Tablet Delayed Release (Protonix)Indica tions:Gastroesop hageal reflux disease without esophagitis Take 1 Tablet by mouth in the morning. 100 Tablet 3 4 10:27 AM EST Suspended Clopidogrel Bisulfate 75 MG Oral Tablet (pLAVix)Indicati ons:Old myocardial infarction TAKE ONE TABLET BY MOUTH EVERY DAY 100 Tablet 3 4 7:22 AM EST 024 2024 Suspended Cyanocobalamin 1000 MCG/ML Injection Solution (Cyanocobalamin) Indications:Buffy min B12 deficiency INJECT 1ML INTRAMUSCULARLY EVERY 30 DAYS 3 mL 1 024 Suspended Additional Information Patient taking differently: INJECT 1ML INTRAMUSCULARLY EVERY other 30 DAYS, Reported on 03/05/2024 Fluticasone Propionate 50 MCG/ACT Nasal Suspension (Flonase)Indicat ions:Chronic maxillary sinusitis ADMINISTER ONE SPRAY INTO EACH NOSTRIL DAILY 48 g 3 4 2:12 PM EDT 024 Suspended Nitroglycerin 0.4 MG Sublingual Tablet Sublingual (Nitrostat) One tablet under tongue if needed for chest pain. May repeat 3 times. If chest pain continues, call [phone] 25 Tablet 3 024 Suspended Ondansetron HCl 8 MG Oral Tablet (Zofran)Indicati ons: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) Take 1 Tablet by mouth every 8 hours as needed for Nausea. 30 Tablet 3 024 Suspended Prochlorperazine Maleate 10 MG Oral Tablet (Compazine)Indic ations:Metastasi s from pancreatic cancer (HCC) Take 1 Tablet by mouth every 6 hours as needed for Nausea. 30 Tablet 3 024 Suspended Lidocaine-Priloc fartun 2.5-2.5 % External Cream (Emla)Indication s: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) APPLY TO SKIN OVER MEDIPORT & COVER 1HR PRIOR TO ACCESSING. 30 g 1 024 Suspended Acetaminophen 500 MG Oral Tablet (Tylenol) Take 2 Tablets by mouth every 6 hours as needed for Pain, Breakthrough (up to 3000 mg daily (6 tablets)). Suspended Magnesium Oxide 400 MG Oral Tablet Take 1 Tablet by mouth in the morning and 1 Tablet before bedtime. 024 Suspended Magic Swizzle (Lidocaine-Benad ryl-Maalox) oral solutionIndicati ons:Oral pain Swish and spit 15 mL in the morning and 15 mL at noon and 15 mL before bedtime. 300 mL 024 Suspended glipiZIDE ER 2.5 MG Oral Tablet Extended Release 24 Hour (glipiZIDE XL)Indications:T ype 2 diabetes mellitus with hemoglobin A1c goal of less than 7.0% ([facility]) Take 1 Tablet by mouth in the morning. Before breakfast. 90 Tablet 2 024 Suspended Atenolol 50 MG Oral Tablet (Tenormin)Indica tions:Old myocardial infarction Take 1 Tablet by mouth in the morning. 100 Tablet 3 4 5:18 PM EST 024 Suspended Loperamide HCl 2 MG Oral Tablet (Imodium A-D) Take 1 Tablet by mouth 3 times a day as needed for Diarrhea. Then one tablet after each loose BM, no more than 3 tablets per day 024 Suspended metFORMIN HCl ER 500 MG Oral Tablet Extended Release 24 Hour (Glucophage XR) Take 2 Tablets by mouth 2 times a day with morning and evening meals. 360 Tablet 3 024 Suspended Ranolazine ER 500 MG Oral Tablet Extended Release 12 Hour Take 1 Tablet by mouth in the morning and 1 Tablet before bedtime. 14 Tablet 024 Suspended Fluconazole 40 MG/ML Oral Suspension Reconstituted (Diflucan) Take 5 mL by mouth in the morning. 024 Suspended predniSONE 50 MG Oral Tablet (Deltasone)Indic ations:Metastasi s from pancreatic cancer (HCC),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) Take 1 tablet 13 hours, 7 hours, and [address] appt 3 Tablet 024 Suspended diphenhydrAMINE HCl 50 MG Oral Capsule (Benadryl)Indica tions: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),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) Take 1 capsule [address] appt 1 Capsule 024 Suspended Furosemide 40 MG Oral Tablet (Lasix)Indicatio ns:Anasarca,Bila teral leg edema One tablet daily 30 Tablet 6 024 Suspended Potassium Chloride ER 10 MEQ Oral Capsule Extended ReleaseIndicatio ns:Bilateral leg edema Take 1 Capsule by mouth in the morning. 30 Capsule 5 024 Suspended oxygen IN GASIndications:S OB (shortness of breath) Administer 2 L/min(Oxygen) into nostril continuous. 1 Each 025 Suspended documented as of this encounter (statuses as of 04/13/2024) Active Problems Problem Noted Date Diagnosed Date Acute hypoxic respiratory failure 04/07/2024 Pneumonia of right upper lobe due to infectious organism 04/04/2024 Hyponatremia 04/04/2024 Acute cholecystitis 04/02/2024 Sepsis without acute organ dysfunction 5 Goals of care, counseling/discussion 04/02/2024 Palliative care encounter 04/02/2024 Pancytopenia 04/01/2024 Secondary malignant neoplasm of liver and intrahepatic bile duct 02/17/2024 Malignant neoplasm of head of pancreas 11/25/202 4 Metastasis from pancreatic cancer 01/28/2024 Encounter for antineoplastic chemotherapy 2023 Atherosclerosis of [place] ar teries of extremities with rest pain, bilateral legs 11/08/2023 Pulmonary hypertension, unspecified 07/17/2022 B12 deficiency 03/22/2022 Moderate aortic stenosis 11/28/2021 Occupational exposure to noise 09/27/2020 Coronary artery disease of [place] artery of [place] heart with stable angina pectoris 09/17/2019 Gastroesophageal [...] as of this encounter (statuses as of 04/13/2024) Resolved Problems Problem Noted Date Diagnosed Date [...] Per HTN Protocol #27. [employer] Other*[id number] 09/23/2009 05/01/2016 Overview (09/23/2009): Study Titile: Genomic Markers for Patients with Cardiovascular Disease Project #[id number] PI: Estela Sandoval MD Please call [phone] with study related questions Dyslipidemia, goal LDL below 70 08/30/2009 02/26/2013 HTN, goal below 130/80 08/30/200911/14 Overview: Per HTN Protocol #27. History of drug allergy 08/29/200906/23 Dyslipidemia, goal LDL below 70 08/23/2009 02/26/2013 ACEI/ARB contraindicated 09/2013 documented as of this encounter (statuses as of 04/13/2024) Immunizations Name Administration Dates Next Due COVID-19 [...] Assessment Author Yes 04/02/2024 1:30 AM Zuri Walters, SHILPA * Are you blind or do you [...] Assessment Author No 04/02/2024 1:30 AM Zuri Walters, SHILPA * Because of a physical, mental, or emotional condition, do you have difficulty doing errands alone such as visiting a doctors office or shopping? (15 years old or older) Answer Date of Assessment Author No 04/02/2024 1:30 AM Zuri Walters, RN documented as of this encounter Mental Status * Because of a physical, mental, or emotional condition, do you have serious difficulty concentrating, remembering, or making decisions? (5 years old or older) Answer Entry Date Author No 04/02/2024 1:30 AM Zuri Walters, SHILPA documented in this encounter Plan of Treatment Upcoming Encounters Date Type Department Care Team (Late st Contact Info) Description 04/17/2024 9:30 AM EST Laboratory Laboratory, [facility] [address] [facility] [place] [address] [facility] [address] [facility] [place] [address] 04/17/2024 10:00 AM EST Imaging Radiology [facility] [address] [facility] [address] [facility] [place] [address] 04/28/2024 9:30 AM EST Office Visit Hematology/Oncology [facility] [address] [facility] [place] [id number] Marimar Del Castillo MD [address] [facility] [place] [address] Scheduled Procedures Name Priority Associated Diagnoses Date/Ti [...] this encounter Medical Devices Implanted Type Area Returned Item Clerk Device Identifier Shelf Expiration Date Model / Serial / Lot Stent Bili Duodenal [id number] - [id number] Implanted:Qty : 1 on 01/16/2024 by Jose E Bai MD at [facility]OSCOPY [facility] N/A: Stomach [employer] 12/02/2025 PBD-1031- 1007 / / [id number] Stent Viabil Biliary [id number] - [id number] Implanted:Qty : 1 on 04/02/2024 by Mars Anna DO at [facility] [employer] [id number] 01/15/2027 [id number] / [id number] / [id number] documented as of this encounter Advance Directives [...] Care Agent (per Health Care Power of Ebd Special Education Teacher document) Care Teams Farmer Cash Grain Relationship Specialty Start Date End Date Pedro Luis Bowens DO [address] [place] [address] PCP - General Internal Medicine 09/09/23 documented as of this encounter
--- OUTSIDE RECORDS SUMMARY | 2024-04-25 17:58 | External Medical Summary | Summary of Care ---
Author Name Unknown Organization [facility] Address [address] [place] [address] Phone [phone] Care Team Providers Care Hotel Superintendent Name Role Phone Pedro Luis Bowens DO Primary Care Provider Reason for Visit * Reason Onset Date Comments Appointment 04/10/2024 Encounter Details Date Type Department Care Team (Late st Contact Info) Description 04/10/2024 Telephone [facility], [facility] [place] [address] Angel Jeffries, DARIA [address] [place], [place] [phone] Appointment (//) Allergies Active Allergy Reactions Criticality Noted Date Comments Iodinated Contrast Media Rash 08/29/2009 Pt got a rash after his cath on 08/23/09 Levofloxacin 11/03/2009 Nausea jittery Lisinopril 10/01/2013 Cough Rash documented as of this encounter (statuses as of 04/10/2024) Medications ASPIRIN 81 MG PO CHEW Take 1 Tablet by mouth at bedtime. 100 Tab 3 06/02/2 010 Suspended Iron-Vitamin C 65-125 MG Tablet Take 1 Tablet by mouth every other day. Suspended Multiple Vitamin (MULTI-DAY) Tablet Take 1 Tablet by mouth every evening. Suspended Probiotic Product (PROBIOTIC ACIDOPHILUS BIOBEADS) Capsule Take 1 Cap by mouth daily before breakfast. 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 DX: E11.9 1 Kit 021 Suspended Vitamin D3 25 MCG (1000 UT) Oral Capsule Take 1 Capsule by mouth every evening. Suspended Ranolazine ER 1000 MG Oral Tablet Extended Release 12 HourIndications: Coronary artery disease of [place] artery of [place] heart with stable angina pectoris ([facility]) TAKE ONE TABLET BY MOUTH TWICE [...] 100 Tablet 3 4 10:27 AM EST 024 Suspended Clopidogrel Bisulfate 75 MG Oral Tablet (pLAVix)Indicati ons:Old myocardial infarction TAKE ONE TABLET BY MOUTH EVERY DAY 100 Tablet 3 4 7:22 AM EST 024 08/20/ 2025 Suspended Cyanocobalamin 1000 MCG/ML Injection Solution (Cyanocobalamin) [...] hemoglobin A1c goal of less than 7.0% ([facility]) Take 1 Tablet by mouth in the morning. Before breakfast. 90 Tablet 2 024 Suspended Atenolol 50 MG Oral Tablet (Tenormin)Indica tions:Old myocardial infarction Take 1 Tablet by mouth in the morning. 100 Tablet 3 4 5:18 PM EST Suspended Loperamide HCl 2 MG Oral Tablet (Imodium A-D) Take 1 Tablet by mouth 3 times a day as needed for Diarrhea. Then one tablet after each loose BM, no more than 3 tablets per day Suspended metFORMIN HCl ER 500 MG Oral Tablet Extended Release 24 Hour (Glucophage XR) Take 2 Tablets by mouth 2 times a day with morning and evening meals. 360 Tablet 3 Suspended Ranolazine ER 500 MG Oral Tablet Extended Release 12 Hour Take 1 Tablet by mouth in the morning and 1 Tablet before bedtime. 14 Tablet 024 Suspended Fluconazole 40 MG/ML Oral Suspension Reconstituted (Diflucan) Take 5 mL by mouth in the morning. Suspended predniSONE 50 MG Oral Tablet (Deltasone)Indic [...] as of this encounter (statuses as of 04/10/2024) Active Problems Problem Noted Date Diagnosed Date [...] Encounter for antineoplastic chemotherapy 2023 Atherosclerosis of [place] ar teries of extremities with rest pain, bilateral legs 11/08/2023 Pulmonary hypertension, unspecified 07/17/2022 B12 deficiency 03/22/2022 Moderate aortic stenosis 11/28/2021 Occupational exposure to noise 09/27/2020 Coronary artery disease of n ative artery of [place] heart with stable angina pectoris 09/17/2019 Gastroesophageal [...] as of this encounter (statuses as of 04/10/2024) Resolved Problems Problem Noted Date Diagnosed Date [...] Per HTN Protocol #27. [employer] Other*[id number] 09/23/2009 05/01/2016 Overview (09/23/2009): Study Titile: Genomic Markers for Patients with Cardiovascular Disease Project #[id number] PI: Estela Sandoval MD Please call [phone] with study related questions Dyslipidemia, goal LDL below 70 08/30/2009 02/26/2013 HTN, goal below 130/80 08/30/200911/14 Overview: Per HTN Protocol #27. History of drug allergy 08/29/200906/23 Dyslipidemia, goal LDL below 70 08/23/2009 02/26/2013 ACEI/ARB contraindicated 09/2013 documented as of this encounter (statuses as of 04/10/2024) Immunizations Name Administration Dates Next Due COVID-19 [...] of Assessment Author Yes 04/02/2024 1:30 AM EST Zuri Mckinley RN * Are you blind or do [...] Telephone Encounter - Angel Jeffries OSA - 04/10/2024 2:08 PM EST 04/15-pt said he will be d/c 04/14 or 04/15 and asked for a CB at that time documented in this encounter Plan of Treatment Upcoming Encounters Date Type Department Care Team (Late st Contact Info) Description 04/17/2024 9:30 AM EST Laboratory Laboratory, [facility] [address] [place] [phone] [facility] [address] [place] [address] 04/17/2024 10:00 AM EST Imaging Radiology [facility] [address] [place] [address] 04/28/2024 9:30 AM EST Office Visit Hematology/Oncology [facility] [address] [facility] [place] [phone] Marimar Del Castillo MD [address] [place] [address] Scheduled Procedures Name Priority Associated Diagnoses Date/Ti [...] this encounter Medical Devices Implanted Type Area Geological Technician Device Identifier Shelf Expiration Date Model / Serial / Lot Stent Bili Duodenal [id number] - [id number] Implanted:Qty : 1 on 01/16/2024 by Jose E Bai MD at ENDOSCOPY [facility] N/A: Stomach [employer] 12/02/2025 PBD-1031- 1007 / / [id number] Stent Viabil Biliary [id number] - [id number] Implanted:Qty : 1 on 04/02/2024 by Mars Anna DO at ENDOSCOPY [facility] [employer] JULIO CESAR [id number] 01/15/2027 [id number] / [id number] / [id number] documented as of this encounter Advance Directives [...] Care Agent (per Health Care Power of Joint Finisher document) Care Teams Hotel Superintendent Relationship Specialty Start Date End Date Pedro Luis Bowens DO [address] [place] [address] PCP - General Internal Medicine 09/09/23 documented as of this encounter
--- OUTSIDE RECORDS SUMMARY | 2024-04-25 17:58 | External Medical Summary ---
Author Name Unknown Address Unknown Organization K01:[facility] [address] [place] [address] Laboratory Report Ordering Provider Test Date Status HAYDEN HOLLY 04/13/2024 03:45:46 Final Observation Date Value Abnormality Reference (Units ) Status Magnesium 04/13/2024 03:45:46 1.9 1.5-2.6 (m g/dL) Final Performing Location [facility] - [address] [place] [address]
--- OUTSIDE RECORDS SUMMARY | 2024-04-25 17:58 | External Medical Summary ---
Author Name Unknown Address Unknown Organization K01:[facility]ORY [facility] [address] [facility] [address] Laboratory Report Ordering Provider Test Date Status HAYDEN HOLLY 04/13/2024 03:45:46 Final Observation Date Value Abnormality Reference (Units ) Status BUN 04/13/2024 03:45:46 16 6-20 (mg/dL) Final Creatinine 04/13/2024 03:45:46 0.7 0.6-1.2 (mg/dL) Final Glomerular filtration rate/1.73 sq M.predicted [Volume Rate/Area] in Serum, Plasma or Blood by Creatinine-based formula (CKD-EPI) 04/13/2024 03:45:46 >90 >=60 (mL/min) Final eGFR is calculated based on the CKD-EPI 2020 equation. Sodium 04/13/2024 03:45:46 135 135-146 (m mol/L) Final Potassium 04/13/2024 03:45:46 4.0 3.5-5.1 (m mol/L) Final Cl 04/13/2024 03:45:46 101 98-107 (mm ol/L) Final CO2 04/13/2024 03:45:46 25 22-32 (mmo l/L) Final Anion gap 04/13/2024 03:45:46 9 7-15 (mmol /L) Final Glucose 04/13/2024 03:45:46 75 70-120 (mg /dL) Final Calcium 04/13/2024 03:45:46 8.3 Below low normal 8.4 -10.2 (mg/dL) Final Performing Location [facility]ORY [facility] [address] [facility] [address]
--- OUTSIDE RECORDS SUMMARY | 2024-04-25 17:58 | External Medical Summary ---
Author Name Unknown Address Unknown Organization : Laboratory Report Ordering Provider Test Date Status HAYDEN HOLLY 04/12/2024 06:19:42 Final Observation Date Value Abnormality Reference (Units ) Status Glucose Point of Care 04/12/2024 06:19:42 108 70-120 (mg/dL) Final Performing Location
--- OUTSIDE RECORDS SUMMARY | 2024-04-25 17:58 | External Medical Summary ---
Author Name Unknown Address Unknown Organization : Laboratory Report Ordering Provider Test Date Status HAYDEN HOLLY 04/11/2024 21:15:58 Final Observation Date Value Abnormality Reference (Units ) Status Glucose Point of Care 04/11/2024 21:15:58 119 70-120 (mg/dL) Final Performing Location
--- OUTSIDE RECORDS SUMMARY | 2024-04-25 17:58 | External Medical Summary ---
Author Name Unknown Address Unknown Organization : Laboratory Report Ordering Provider Test Date Status HAYDEN HOLLY 04/11/2024 11:26:55 Final Observation Date Value Abnormality Reference (Units ) Status Glucose Point of Care 04/11/2024 11:26:55 129 Above high normal 70-120 (mg/dL) Final Performing Location
--- OUTSIDE RECORDS SUMMARY | 2024-04-25 17:58 | External Medical Summary ---
Author Name Unknown Address Unknown Organization K01:[facility] [address] [facility] [address] Laboratory Report Ordering Provider Test Date Status SAIRA VELAZQUEZ 04/12/2024 05:24:53 Final Observation Date Value Abnormality Reference (Units ) Status WBC, Total 04/12/2024 05:24:53 8.93 4.00-10.80 (K/uL) Final RBC 04/12/2024 05:24:53 2.92 4.50-5.25 (M/uL) Final Hemoglobin 04/12/2024 05:24:53 8.2 Below low normal 14.0-16.8 (g/dL) Final HCT 04/12/2024 05:24:53 26.1 Below low normal 40.0-48.4 (%) Final MCV 04/12/2024 05:24:53 89.4 82.0-99.5 (fL) Final MCH 04/12/2024 05:24:53 28.1 27.0-34.0 (pg) Final MCHC 04/12/2024 05:24:53 31.4 32.0-36.0 (g/dL) Final RDW 04/12/2024 05:24:53 19.6 11.5-15.5 (%) Final Platelets 04/12/2024 05:24:53 151 140-400 (K/uL) Final MPV 04/12/2024 05:24:53 10.4 6.6-11.1 (fL) Final Nucleated erythrocytes/100 leukocytes [Ratio] in Blood by Automated count 04/12/2024 05:24:53 0 <=0 (/100 WBCs) Final Performing Location [facility] [address] [facility] [address]
--- OUTSIDE RECORDS SUMMARY | 2024-04-25 17:58 | External Medical Summary ---
Author Name Unknown Address Unknown Organization K01:[facility] - [address] [place] [address] Laboratory Report Ordering Provider Test Date Status BLAISE COPELAND 04/11/2024 20:55:16 Final Observation Date Value Abnormality Reference (Units ) Status Magnesium 04/11/2024 20:55:16 1.8 1.5-2.6 (m g/dL) Final Performing Location [facility] - [address] [place] [address]
--- OUTSIDE RECORDS SUMMARY | 2024-04-25 17:58 | External Medical Summary ---
Author Name Unknown Address Unknown Organization K01:[facility] - [address] [place] [address] Laboratory Report Ordering Provider Test Date Status HAYDEN HOLLY 04/11/2024 03:35:55 Final Observation Date Value Abnormality Reference (Units ) Status Magnesium 04/11/2024 03:35:55 2.0 1.5-2.6 (m g/dL) Final Performing Location [facility] - [address] [place] [address]
--- OUTSIDE RECORDS SUMMARY | 2024-04-25 17:58 | External Medical Summary ---
Author Name Unknown Address Unknown Organization K01:[facility]ATORY [facility] [place] [facility] - [address] [facility] [address] Laboratory Report Ordering Provider Test Date Status HAYDEN HOLLY 04/12/2024 05:24:53 Final Observation Date Value Abnormality Reference (Units ) Status BUN 04/12/2024 05:24:53 16 6-20 (mg/dL) Final Creatinine 04/12/2024 05:24:53 0.7 0.6-1.2 (mg/dL) Final Glomerular filtration rate/1.73 sq M.predicted [Volume Rate/Area] in Serum, Plasma or Blood by Creatinine-based formula (CKD-EPI) 04/12/2024 05:24:53 >90 >=60 (mL/min) Final eGFR is calculated based on the CKD-EPI 2020 equation. Sodium 04/12/2024 05:24:53 136 135-146 (m mol/L) Final Potassium 04/12/2024 05:24:53 3.8 3.5-5.1 (m mol/L) Final Cl 04/12/2024 05:24:53 101 98-107 (mm ol/L) Final CO2 04/12/2024 05:24:53 26 22-32 (mmo l/L) Final Anion gap 04/12/2024 05:24:53 9 7-15 (mmol /L) Final Glucose 04/12/2024 05:24:53 124 Above high normal 70 -120 (mg/dL) Final Calcium 04/12/2024 05:24:53 8.1 Below low normal 8.4 -10.2 (mg/dL) Final Performing Location [facility] - [address] [place] [address]
--- OUTSIDE RECORDS SUMMARY | 2024-04-25 17:58 | External Medical Summary ---
Author Name Unknown Address Unknown Organization K01:[facility] - [address] [place] [address] Laboratory Report Ordering Provider Test Date Status HAYDEN HOLLY 04/10/2024 20:29:59 Final Observation Date Value Abnormality Reference (Units ) Status Magnesium 04/10/2024 20:29:59 1.6 1.5-2.6 (m g/dL) Final Performing Location [facility] - [address] [place] [address]
--- OUTSIDE RECORDS SUMMARY | 2024-04-25 17:58 | External Medical Summary ---
Author Name Unknown Address Unknown Organization K01:LABORATORY [facility] - [address] [facility] [address] [place] [address] Laboratory Report Ordering Provider Test Date Status HAYDEN HOLLY 04/11/2024 03:35:55 Final Observation Date Value Abnormality Reference (Units ) Status BUN 04/11/2024 03:35:55 15 6-20 (mg/dL) Final Creatinine 04/11/2024 03:35:55 0.6 0.6-1.2 (mg/dL) Final Glomerular filtration rate/1.73 sq M.predicted [Volume Rate/Area] in Serum, Plasma or Blood by Creatinine-based formula (CKD-EPI) 04/11/2024 03:35:55 >90 >=60 (mL/min) Final eGFR is calculated based on the CKD-EPI 2020 equation. Sodium 04/11/2024 03:35:55 133 Below low normal 135 -146 (mmol/L) Final Potassium 04/11/2024 03:35:55 3.8 3.5-5.1 (m mol/L) Final Cl 04/11/2024 03:35:55 99 98-107 (mm ol/L) Final CO2 04/11/2024 03:35:55 23 22-32 (mmo l/L) Final Anion gap 04/11/2024 03:35:55 11 7-15 (mmol /L) Final Glucose 04/11/2024 03:35:55 139 Above high normal 70 -120 (mg/dL) Final Calcium 04/11/2024 03:35:55 8.3 Below low normal 8.4 -10.2 (mg/dL) Final Performing Location [facility] - [address] [place] [address]
--- OUTSIDE RECORDS SUMMARY | 2024-04-25 17:58 | External Medical Summary | Summary of Care ---
Author Name Unknown Organization [facility] Address [address] [place] [address] Phone [phone] Care Team Providers Care Mini Bar Attendant Name Role Phone Pedro Luis Bowens DO Primary Care Provider Reason for Visit * Reason Onset Date Comments [facility]: Screening 04/10/2024 Encounter Details Date Type Department Care Team (Late st Contact Info) Description 04/10/2024 Telephone [facility], [place] [address] [place] [address] Gilda Gallegos, WOOD TURNER [address] [place] [address] [facility]: Screening Allergies Active Allergy [...] A1c goal of less than 7.0% ([facility]),DM type 2 causing vascular disease ([facility]),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 DX: E11.9 1 Kit 021 Suspended Vitamin D3 25 MCG (1000 UT) Oral Capsule Take 1 Capsule by mouth every evening. Suspended Ranolazine ER 1000 MG Oral Tablet Extended Release 12 HourIndications: Coronary artery disease of koi artery of koi heart with stable angina pectoris ([facility]) TAKE ONE TABLET BY [...] A1c goal of less than 7.0% ([facility]) Take 1 Tablet by [...] and 1 Tablet before bedtime. 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 [employer] Other*[id number] 09/23/2009 05/01/2016 Overview (09/23/2009): Study Titile: Genomic Markers for Patients with Cardiovascular Disease Project #[id number] PI: Estela Sandoval MD Please call [phone] with study related questions Dyslipidemia, goal LDL [...] Assessment Author Yes 04/02/2024 1:30 AM EST Mckinley, Br burke, RN * Are you blind or do [...] encounter Miscellaneous Notes * Telephone Encounter - Gilda Gallegos LPN - 04/10/2024 2:04 PM EST Added to hospital list to follow Michael Gutierrez was referred as a potential candidate for enrollment for [facility]. A review of this chart was completed and: Michael meets criteria for [facility]. Jump to Initiation Referring care team was notified via : Epic communication documented in this encounter Plan of Treatment Upcoming Encounters Date Type Department Care Team (Late st Contact Info) Description 04/17/2024 9:30 AM EST Laboratory Laboratory, [facility] [address] [facility] [place] [phone] [facility] [address] [facility] [place] [address] 04/17/2024 10:00 AM EST Imaging Radiology [address] [place] [phone] 04/28/2024 9:30 AM EST Office Visit Hematology/Oncology [facility] [place] [address] [place] [phone] Marimar Del Castillo MD [address] [place] [address] Scheduled Procedures Name Priority Associated Diagnoses Date/Ti [...] this encounter Medical Devices Implanted Type Area Molder Shoulder Pad Device Identifier Shelf Expiration Date Model / Serial / Lot Stent Bili Duodenal [id number] - [id number] Implanted:Qty : 1 on 01/16/2024 by Jose E Bai MD at ENDOSCOPY [facility] N/A: Stomach [employer] 12/02/2025 PBD-1031- 1007 / / [id number] Stent Viabil Biliary [id number] - [id number] Implanted:Qty : 1 on 04/02/2024 by Mars Anna DO at ENDOSCOPY [facility] [employer] JULIO CESAR [id number] 01/15/2027 [id number] / [id number] / [id number] documented as of this encounter Advance Directives [...] Care Agent (per Health Care Power of Second Miller document) Care Teams Mini Bar Attendant Relationship Specialty Start Date End Date Pedro Luis Bowens DO [address] [place] [address] PCP - General Internal Medicine 09/09/23 documented as of this encounter
--- OUTSIDE RECORDS SUMMARY | 2024-04-25 17:58 | External Medical Summary | Summary of Care ---
Author Name Unknown Organization [facility] Address [address] [place] [address] Phone [phone] Care Team Providers Care Corporate Traffic Manager Name Role Phone Pedro Luis Bowens DO Primary Care Provider Encounter Details Date Type Department Care Team (Late st Contact Info) Description 04/13/2024 Documentation [facility], [place] [address] [place] [address] Merced Wright RN [address] [place] [address] Allergies Active Allergy Reactions Criticality Noted Date [...] Release 12 HourIndications: Coronary artery disease of [place] artery of [place] heart with stable angina pectoris ([facility] [...] Encounter for antineoplastic chemotherapy 2023 Atherosclerosis of [place] ar teries of extremities with rest pain, bilateral legs 11/08/2023 Pulmonary hypertension, unspecified 07/17/2022 B12 deficiency 03/22/2022 Moderate aortic stenosis 11/28/2021 Occupational exposure to noise 09/27/2020 Coronary artery disease of n ative artery of [place] heart with stable angina pectoris 09/17/2019 Gastroesophageal [...] Per HTN Protocol #27. [employer] Other*[id number] 09/23/2009 05/01/2016 Overview (09/23/2009): Study Titile: Genomic Markers for Patients with Cardiovascular Disease Project #[id number] PI: Estela Sandoval MD Please call [phone] with study related questions Dyslipidemia, goal LDL [...] the money to buy more. Never true 12/09/20 24 Within the past 12 months, t [...] Author Yes 04/02/2024 1:30 AM Zuri Walters, RN * Are you blind or do [...] documented in this encounter Progress Notes * Merced Wright RN - 04/13/2024 3:43 PM EST Michael Gutierrez was referred as a potential candidate for enrollment for [facility]. A review of this chart was completed and: Michael does not meet criteria for enrollment into [facility]. Criteria for Ineligibility: Not Located in Service Area Mailing address is his daughter's home. Tonny lives in [place]. Referring care team was notified via : Epic communication documented in this encounter Plan of Treatment Upcoming Encounters Date Type Department Care Team (Late st Contact Info) Description 04/17/2024 9:30 AM EST Laboratory Laboratory, [facility] [address] [place] [phone] [facility] [address] [place] [address] 04/17/2024 10:00 AM EST Imaging Radiology [facility] [place] [address] [place] [phone] 04/28/2024 9:30 AM EST Office Visit Hematology/Oncology [facility] [address] [place] [address] Marimar Del Castillo MD [address] [place] [address] Scheduled Procedures Name Priority Associated Diagnoses Date/Ti [...] this encounter Medical Devices Implanted Type Area Brazer Controlled Atmospheric Furnace Device Identifier Shelf Expiration Date Model / Serial / Lot Stent Bili Duodenal [id number] - [id number] Implanted:Qty : 1 on 01/16/2024 by Jose E Bai MD at ENDOSCOPY [facility] N/A: Stomach [employer] 12/02/2025 PBD-1031- 1007 / / [id number] Stent Viabil Biliary [id number] - [id number] Implanted:Qty : 1 on 04/02/2024 by Mars Anna DO at [facility] [employer] JULIO CESAR [id number] 01/15/2027 [id number] / [id number] / [id number] documented as of this encounter Advance Directives [...] 4:06 PM 09/24/2009 6:06 PM This order re flects the patients [...] Relationship Healthcare Agent Relationship Communication Johann (ABHINAV) Princeiswenger Other - (no specific identity) First Alternate Health Care Agent (per Health Care Power of Databases Software Consultant document) Care Teams Corporate Traffic Manager Relationship Specialty Start Date End Date Pedro Luis Bowens DO [address] [place] [address] PCP - General Internal Medicine 09/09/23 documented as of this encounter
--- OUTSIDE RECORDS SUMMARY | 2024-04-25 17:58 | External Medical Summary ---
Author Name Unknown Address Unknown Organization : Laboratory Report Ordering Provider Test Date Status HAYDEN HOLLY 04/12/2024 21:27:42 Final Observation Date Value Abnormality Reference (Units ) Status Glucose Point of Care 04/12/2024 21:27:42 155 Above high normal 70-120 (mg/dL) Final Performing Location
--- OUTSIDE RECORDS SUMMARY | 2024-04-25 17:58 | External Medical Summary ---
Author Name Unknown Address Unknown Organization K01:LABORATORY [facility] [place] - [address] [facility] [place] [address] Laboratory Report Ordering Provider Test Date Status SAIRA VELAZQUEZ 04/11/2024 03:35:55 Final Observation Date Value Abnormality Reference (Units ) Status Albumin 04/11/2024 03:35:55 2.4 Below low normal 3.8-5.0 (g/dL) Final AST (Aspartate aminotransferase) 04/11/2024 03:35:55 37 10-50 (U/L) Final Alk Phos 04/11/2024 03:35:55 498 Above high normal 35-130 (U/L) Final ALT (Alanine aminotransferase) 04/11/2024 03:35:55 31 10-50 (U/L) Final Bilirubin, Total 04/11/2024 03:35:55 1.1 <=1.2 (mg/dL) Final Bilirubin, Direct 04/11/2024 03:35:55 0.7 Above high normal 0.0-0.3 (mg/dL) Final Protein 04/11/2024 03:35:55 5.3 Below low normal 6.0-8.3 (g/dL) Final Performing Location LABORATORY [facility] [place] - [address] [place] [address]
--- OUTSIDE RECORDS SUMMARY | 2024-04-25 17:58 | External Medical Summary | Summary of Care ---
Author Name Unknown Organization [facility] Address [address] [place] [address] Phone [phone] Care Team Providers Care Charter And Tour Bus Driver Name Role Phone Pedro Luis Bowens DO Primary Care Provider [phone] Reason for Visit * Reason Onset Date Comments Advice 04/10/2024 Encounter Details Date Type Department Care Team (Late st Contact Info) Description 04/10/2024 Telephone Family Practice [address] [facility] [place] [address] [place] [address] Pedro Luis Bowens DO [address] [place], [place] [phone] Advice Allergies Active Allergy Reactions Criticality Noted [...] A1c goal of less than 7.0% ([facility]),DM type 2 causing vascular disease ([facility]),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 DX: E11.9 1 Kit 021 Suspended Vitamin D3 25 MCG (1000 UT) Oral Capsule Take 1 Capsule by mouth every evening. Suspended Ranolazine ER 1000 MG Oral Tablet Extended Release 12 HourIndications: Coronary artery disease of [place] artery of [place] heart with stable angina pectoris ([facility]) TAKE ONE TABLET BY MOUTH [...] A1c goal of less than 7.0% ([facility]) Take 1 Tablet by mouth [...] Encounter for antineoplastic chemotherapy 2023 Atherosclerosis of [place] ar teries of extremities with rest pain, bilateral legs 11/08/2023 Pulmonary hypertension, unspecified 07/17/2022 B12 deficiency 03/22/2022 Moderate aortic stenosis 11/28/2021 Occupational exposure to noise 09/27/2020 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 [employer] Other*[id number] 09/23/2009 05/01/2016 Overview (09/23/2009): Study Titile: Genomic Markers for Patients with Cardiovascular Disease Project #[id number] PI: Estela Sandoval MD Please call [phone] with study related questions Dyslipidemia, goal LDL [...] encounter Miscellaneous Notes * Addendum Note - Precious Hay RN - 04/10/2024 1:00 PM ESTAddended by: PRECIOUS HAY on: 04/10/2024 01:00 PM Modules accepted: Orders * Telephone Encounter - Precious Hay RN - 04/10/2024 12:59 PM EST Please see Dr. Bowens's addition below; [facility] referral pended. * Telephone Encounter - Pedro Luis Bowens DO - 04/10/2024 12:04 PM EST He is high risk for readmission due to infection, poor oral intake and terminal Pancreatic Cancer. [facility] will be helpful to follow for acute changes in condition and he may have difficulty getting to the office. * Telephone Encounter - Precious Hay RN - 04/10/2024 10:54 AM EST Hi, Do you think [facility] would be an option for this patient for discharge? I have placed the referral, buthoping IP CM could help coordinate prior to discharge, especially with a weekend discharge potential. I am the CM in PCP office. Also, any DME needs at home? Please discuss and update me. Dr. Bowens- do you have any additional background to add that you would increase the likelihood of [facility] involvement or what benefits would be gained by their invovlement? Thank you. Precious Hay, PACON, sieve repairer [address] [phone] documented in this encounter Plan of Treatment Upcoming Encounters Date Type Department Care Team (Late st Contact Info) Description 04/17/2024 9:30 AM EST Laboratory Laboratory, [facility] [address] [facility] [place] [phone] [facility] [address] [facility] [place] [address] 04/17/2024 10:00 AM EST Imaging Radiology [facility] [address] [facility] [place] [phone] 04/28/2024 9:30 AM EST Office Visit Hematology/Oncology [facility] [place] [address] [place] [phone] Marimar Del Castillo MD [address] [place] [address] Scheduled Procedures Name Priority Associated Diagnoses Date/Ti [...] this encounter Medical Devices Implanted Type Area Audit Partner Device Identifier Shelf Expiration Date Model / Serial / Lot Stent Bili Duodenal [id number] - [id number] Implanted:Qty : 1 on 01/16/2024 by Jose E Bai MD at ENDOSCOPY [facility] N/A: Stomach [employer] 12/02/2025 [id number] / / [id number] Stent Viabil Biliary [id number] - [id number] Implanted:Qty : 1 on 04/02/2024 by Mars Anna DO at ENDOSCOPY [facility] [employer] JULIO CESAR [id number] 01/15/2027 [id number] / [id number] / [id number] documented as of this encounter Visit Diagnoses Diagnosis Pneumonia of right upper lobe due to infectious organism- Primary SOB (shortness of breath) Shortness of breath 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) Type II or unspecified type diabetes mellitus with peripheral circulatory disorders, not stated as uncontrolled 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
--- OUTSIDE RECORDS SUMMARY | 2024-04-25 17:58 | External Medical Summary ---
Author Name Unknown Address Unknown Organization : Laboratory Report Ordering Provider Test Date Status HAYDEN HOLLY 04/11/2024 16:11:28 Final Observation Date Value Abnormality Reference (Units ) Status Glucose Point of Care 04/11/2024 16:11:28 85 70-120 (mg/dL) Final Performing Location
--- OUTSIDE RECORDS SUMMARY | 2024-04-25 17:58 | External Medical Summary ---
Author Name Unknown Address Unknown Organization K01:LABORATORY [facility] [place] - [address] [facility] [address] [address] Laboratory Report Ordering Provider Test Date Status SAIRA VELAZQUEZ 04/12/2024 05:24:53 Final Observation Date Value Abnormality Reference (Units ) Status Albumin 04/12/2024 05:24:53 2.3 Below low normal 3.8-5.0 (g/dL) Final AST (Aspartate aminotransferase) 04/12/2024 05:24:53 38 10-50 (U/L) Final Alk Phos 04/12/2024 05:24:53 522 Above high normal 35-130 (U/L) Final ALT (Alanine aminotransferase) 04/12/2024 05:24:53 31 10-50 (U/L) Final Bilirubin, Total 04/12/2024 05:24:53 0.9 <=1.2 (mg/dL) Final Bilirubin, Direct 04/12/2024 05:24:53 0.6 Above high normal 0.0-0.3 (mg/dL) Final Protein 04/12/2024 05:24:53 5.3 Below low normal 6.0-8.3 (g/dL) Final Performing Location LABORATORY [facility] [place] - [address] [place] [address]
--- OUTSIDE RECORDS SUMMARY | 2024-04-25 17:58 | External Medical Summary ---
Author Name Unknown Address Unknown Organization : Laboratory Report Ordering Provider Test Date Status HAYDEN HOLLY 04/13/2024 06:19:37 Final Observation Date Value Abnormality Reference (Units ) Status Glucose Point of Care 04/13/2024 06:19:37 99 70-120 (mg/dL) Final Performing Location
--- OUTSIDE RECORDS SUMMARY | 2024-04-25 17:58 | External Medical Summary ---
Author Name Unknown Address Unknown Organization K01:LABORATORY [facility] - [address] [place] [address] Laboratory Report Ordering Provider Test Date Status HAYDEN HOLLY 04/12/2024 05:24:53 Final Observation Date Value Abnormality Reference (Units ) Status Magnesium 04/12/2024 05:24:53 2.1 1.5-2.6 (m g/dL) Final Performing Location LABORATORY [facility] - [address] [place] [address]
--- OUTSIDE RECORDS SUMMARY | 2024-04-25 17:58 | External Medical Summary ---
Author Name Unknown Address Unknown Organization : Laboratory Report Ordering Provider Test Date Status HAYDEN HOLLY 04/13/2024 16:13:16 Final Observation Date Value Abnormality Reference (Units ) Status Glucose Point of Care 04/13/2024 16:13:16 100 70-120 (mg/dL) Final Performing Location
--- OUTSIDE RECORDS SUMMARY | 2024-04-25 17:58 | External Medical Summary ---
Author Name Unknown Address Unknown Organization K01:[facility]ATORY [facility] [place] - [address] [facility] [address] Laboratory Report Ordering Provider Test Date Status HAYDEN HOLLY 04/11/2024 20:55:16 Final Observation Date Value Abnormality Reference (Units ) Status BUN 04/11/2024 20:55:16 18 6-20 (mg/dL) Final Creatinine 04/11/2024 20:55:16 0.8 0.6-1.2 (mg/dL) Final Glomerular filtration rate/1.73 sq M.predicted [Volume Rate/Area] in Serum, Plasma or Blood by Creatinine-based formula (CKD-EPI) 04/11/2024 20:55:16 90 >=60 (mL/min) Final eGFR is calculated based on the CKD-EPI 2020 equation. Sodium 04/11/2024 20:55:16 134 Below low normal 135 -146 (mmol/L) Final Potassium 04/11/2024 20:55:16 4.0 3.5-5.1 (m mol/L) Final Cl 04/11/2024 20:55:16 100 98-107 (mm ol/L) Final CO2 04/11/2024 20:55:16 25 22-32 (mmo l/L) Final Anion gap 04/11/2024 20:55:16 9 7-15 (mmol /L) Final Glucose 04/11/2024 20:55:16 117 70-120 (mg /dL) Final Calcium 04/11/2024 20:55:16 8.1 Below low normal 8.4 -10.2 (mg/dL) Final Performing Location LABORATORY [facility] [place] - [address] [facility] [address]
--- OUTSIDE RECORDS SUMMARY | 2024-04-25 17:58 | External Medical Summary ---
Author Name Unknown Address Unknown Organization : Laboratory Report Ordering Provider Test Date Status HAYDEN HOLLY 04/13/2024 21:02:33 Final Observation Date Value Abnormality Reference (Units ) Status Glucose Point of Care 04/13/2024 21:02:33 104 70-120 (mg/dL) Final Performing Location
--- OUTSIDE RECORDS SUMMARY | 2024-04-25 17:58 | External Medical Summary ---
Author Name Unknown Address Unknown Organization K01:[facility] [place] [address] [facility] [address] Laboratory Report Ordering Provider Test Date Status SAIRA VELAZQUEZ 04/13/2024 03:45:46 Final Observation Date Value Abnormality Reference (Units ) Status WBC, Total 04/13/2024 03:45:46 8.36 4.00-10.80 (K/uL) Final RBC 04/13/2024 03:45:46 2.78 4.50-5.25 (M/uL) Final Hemoglobin 04/13/2024 03:45:46 8.0 Below low normal 14.0-16.8 (g/dL) Final HCT 04/13/2024 03:45:46 25.0 Below low normal 40.0-48.4 (%) Final MCV 04/13/2024 03:45:46 89.9 82.0-99.5 (fL) Final MCH 04/13/2024 03:45:46 28.8 27.0-34.0 (pg) Final MCHC 04/13/2024 03:45:46 32.0 32.0-36.0 (g/dL) Final RDW 04/13/2024 03:45:46 19.5 11.5-15.5 (%) Final Platelets 04/13/2024 03:45:46 168 140-400 (K/uL) Final MPV 04/13/2024 03:45:46 10.7 6.6-11.1 (fL) Final Nucleated erythrocytes/100 leukocytes [Ratio] in Blood by Automated count 04/13/2024 03:45:46 0 <=0 (/100 WBCs) Final Performing Location [facility]ORY [facility] [address] [facility] [place] [address]
--- OUTSIDE RECORDS SUMMARY | 2024-04-25 17:58 | External Medical Summary ---
Author Name Unknown Address Unknown Organization K01:LABORATORY [facility] [place] - [address] [facility] [address] Laboratory Report Ordering Provider Test Date Status HAYDEN HOLLY 04/10/2024 20:29:59 Final Observation Date Value Abnormality Reference (Units ) Status BUN 04/10/2024 20:29:59 17 6-20 (mg/dL) Final Creatinine 04/10/2024 20:29:59 0.6 0.6-1.2 (mg/dL) Final Glomerular filtration rate/1.73 sq M.predicted [Volume Rate/Area] in Serum, Plasma or Blood by Creatinine-based formula (CKD-EPI) 04/10/2024 20:29:59 >90 >=60 (mL/min) Final eGFR is calculated based on the CKD-EPI 2020 equation. Sodium 04/10/2024 20:29:59 130 Below low normal 135 -146 (mmol/L) Final Potassium 04/10/2024 20:29:59 4.0 3.5-5.1 (m mol/L) Final Cl 04/10/2024 20:29:59 97 Below low normal 98- 107 (mmol/L) Final CO2 04/10/2024 20:29:59 23 22-32 (mmo l/L) Final Anion gap 04/10/2024 20:29:59 10 7-15 (mmol /L) Final Glucose 04/10/2024 20:29:59 184 Above high normal 70 -120 (mg/dL) Final Calcium 04/10/2024 20:29:59 8.4 8.4-10.2 ( mg/dL) Final Performing Location LAB[facility] - [address] [place] [address]
--- OUTSIDE RECORDS SUMMARY | 2024-04-25 17:58 | External Medical Summary ---
Author Name Unknown Address Unknown Organization : Laboratory Report Ordering Provider Test Date Status HAYDEN HOLLY 04/10/2024 21:07:18 Final Observation Date Value Abnormality Reference (Units ) Status Glucose Point of Care 04/10/2024 21:07:18 143 Above high normal 70-120 (mg/dL) Final Performing Location
--- OUTSIDE RECORDS SUMMARY | 2024-04-25 17:58 | External Medical Summary ---
Author Name Unknown Address Unknown Organization : Laboratory Report Ordering Provider Test Date Status HAYDEN HOLLY 04/12/2024 11:20:30 Final Observation Date Value Abnormality Reference (Units ) Status Glucose Point of Care 04/12/2024 11:20:30 252 Above high normal 70-120 (mg/dL) Final Performing Location
--- OUTSIDE RECORDS SUMMARY | 2024-04-25 17:58 | External Medical Summary ---
Author Name Unknown Address Unknown Organization K01:[facility]ATORY [facility] [place] [address] [facility] [address] Laboratory Report Ordering Provider Test Date Status HAYDEN HOLLY 04/12/2024 19:43:00 Final Observation Date Value Abnormality Reference (Units ) Status BUN 04/12/2024 19:43:00 16 6-20 (mg/dL) Final Creatinine 04/12/2024 19:43:00 0.7 0.6-1.2 (mg/dL) Final Glomerular filtration rate/1.73 sq M.predicted [Volume Rate/Area] in Serum, Plasma or Blood by Creatinine-based formula (CKD-EPI) 04/12/2024 19:43:00 >90 >=60 (mL/min) Final eGFR is calculated based on the CKD-EPI 2020 equation. Sodium 04/12/2024 19:43:00 135 135-146 (m mol/L) Final Potassium 04/12/2024 19:43:00 4.8 3.5-5.1 (m mol/L) Final Cl 04/12/2024 19:43:00 100 98-107 (mm ol/L) Final CO2 04/12/2024 19:43:00 25 22-32 (mmo l/L) Final Anion gap 04/12/2024 19:43:00 10 7-15 (mmol /L) Final Glucose 04/12/2024 19:43:00 131 Above high normal 70 -120 (mg/dL) Final Calcium 04/12/2024 19:43:00 8.1 Below low normal 8.4 -10.2 (mg/dL) Final Performing Location LAB[facility] - [address] [place] [address]
--- OUTSIDE RECORDS SUMMARY | 2024-04-25 17:58 | External Medical Summary ---
Author Name Unknown Address Unknown Organization K01:LABORATORY [facility] [place] - [address] [place] [address] Laboratory Report Ordering Provider Test Date Status SAIRA VELAZQUEZ 04/11/2024 03:35:55 Final Observation Date Value Abnormality Reference (Units ) Status WBC, Total 04/11/2024 03:35:55 12.83 Above high normal 4.00-10.80 (K/uL) Final RBC 04/11/2024 03:35:55 3.11 4.50-5.25 (M/uL) Final Hemoglobin 04/11/2024 03:35:55 8.7 Below low normal 14.0-16.8 (g/dL) Final HCT 04/11/2024 03:35:55 27.6 Below low normal 40.0-48.4 (%) Final MCV 04/11/2024 03:35:55 88.7 82.0-99.5 (fL) Final MCH 04/11/2024 03:35:55 28.0 27.0-34.0 (pg) Final MCHC 04/11/2024 03:35:55 31.5 32.0-36.0 (g/dL) Final RDW 04/11/2024 03:35:55 19.1 11.5-15.5 (%) Final Platelets 04/11/2024 03:35:55 151 140-400 (K/uL) Final MPV 04/11/2024 03:35:55 10.3 6.6-11.1 (fL) Final Nucleated erythrocytes/100 leukocytes [Ratio] in Blood by Automated count 04/11/2024 03:35:55 0 <=0 (/100 WBCs) Final Performing Location LABORATORY [facility] [place] - [address] [facility] [address] [facility] [address] [facility] [address]
--- OUTSIDE RECORDS SUMMARY | 2024-04-25 17:59 | External Medical Summary ---
Author Name Unknown Address Unknown Organization K01:LABORATORY [facility] [place] - [address] [place] [address] Laboratory Report Ordering Provider Test Date Status SAIRA VELAZQUEZ 04/09/2024 04:29:18 Final Observation Date Value Abnormality Reference (Units ) Status WBC, Total 04/09/2024 04:29:18 13.11 Above high normal 4.00-10.80 (K/uL) Final RBC 04/09/2024 04:29:18 3.18 4.50-5.25 (M/uL) Final Hemoglobin 04/09/2024 04:29:18 8.9 Below low normal 14.0-16.8 (g/dL) Final HCT 04/09/2024 04:29:18 28.2 Below low normal 40.0-48.4 (%) Final MCV 04/09/2024 04:29:18 88.7 82.0-99.5 (fL) Final MCH 04/09/2024 04:29:18 28.0 27.0-34.0 (pg) Final MCHC 04/09/2024 04:29:18 31.6 32.0-36.0 (g/dL) Final RDW 04/09/2024 04:29:18 18.8 11.5-15.5 (%) Final Platelets 04/09/2024 04:29:18 126 Below low normal 140-400 (K/uL) Final MPV 04/09/2024 04:29:18 9.9 6.6-11.1 (fL) Final Nucleated erythrocytes/100 leukocytes [Ratio] in Blood by Automated count 04/09/2024 04:29:18 0 <=0 (/100 WBCs) Final Performing Location LAB[facility]ATORY [facility] - [address] [facility] [place] [address]
--- OUTSIDE RECORDS SUMMARY | 2024-04-25 17:59 | External Medical Summary ---
Author Name Unknown Address Unknown Organization : Laboratory Report Ordering Provider Test Date Status HENRY VILLASENOR 04/07/2024 20:55:44 Final Observation Date Value Abnormality Reference (Units ) Status Glucose Point of Care 04/07/2024 20:55:44 156 Above high normal 70-120 (mg/dL) Final Performing Location
--- OUTSIDE RECORDS SUMMARY | 2024-04-25 17:59 | External Medical Summary ---
Author Name Unknown Address Unknown Organization K01:LABORATORY [facility] [place] - [address] [place] [address] Laboratory Report Ordering Provider Test Date Status SAIRA VELAZQUEZ 04/08/2024 03:17:13 Final Observation Date Value Abnormality Reference (Units ) Status Albumin 04/08/2024 03:17:13 2.3 Below low normal 3.8-5.0 (g/dL) Final AST (Aspartate aminotransferase) 04/08/2024 03:17:13 40 10-50 (U/L) Final Alk Phos 04/08/2024 03:17:13 499 Above high normal 35-130 (U/L) Final ALT (Alanine aminotransferase) 04/08/2024 03:17:13 41 10-50 (U/L) Final Bilirubin, Total 04/08/2024 03:17:13 1.3 Above high normal <=1.2 (mg/dL) Final Bilirubin, Direct 04/08/2024 03:17:13 0.9 Above high normal 0.0-0.3 (mg/dL) Final Protein 04/08/2024 03:17:13 5.0 Below low normal 6.0-8.3 (g/dL) Final Performing Location LABORATORY [facility] - [address] [place] [address]
--- OUTSIDE RECORDS SUMMARY | 2024-04-25 17:59 | External Medical Summary ---
Author Name Unknown Address Unknown Organization : Laboratory Report Ordering Provider Test Date Status HAYDEN HOLLY 04/09/2024 10:56:43 Final Observation Date Value Abnormality Reference (Units ) Status Glucose Point of Care 04/09/2024 10:56:43 155 Above high normal 70-120 (mg/dL) Final Performing Location
--- OUTSIDE RECORDS SUMMARY | 2024-04-25 17:59 | External Medical Summary | Summary of Care ---
Author Name Unknown Organization [facility] Address [address] [place] [address] Phone [phone] Care Team Providers Care Order Entry Technician Name Role Phone Pedro Luis Bowens DO Primary Care Provider [phone] Reason for Visit * Reason Onset Date Comments Advice 04/10/2024 Encounter Details Date Type Department Care Team (Late st Contact Info) Description 04/10/2024 Telephone Family Practice [address] [facility] [place] [address] [place] [address] Pedro Luis Bowens DO [address] [place], [place] [id number] Advice Allergies Active Allergy Reactions Criticality Noted [...] Release 12 HourIndications: Coronary artery disease of [place] artery of [place] heart with stable angina pectoris ([place] [...] Encounter for antineoplastic chemotherapy 2023 Atherosclerosis of [place] ar teries of extremities with rest pain, bilateral legs 11/08/2023 Pulmonary hypertension, unspecified 07/17/2022 B12 deficiency 03/22/2022 Moderate aortic stenosis 11/28/2021 Occupational exposure to noise 09/27/2020 Coronary artery disease of n [place]ive artery of [place] heart with stable angina pectoris 09/17/2019 Gastroesophageal [...] Per HTN Protocol #27. [employer] Other*[id number] 09/23/2009 05/01/2016 Overview (09/23/2009): Study Titile: Genomic Markers for Patients with Cardiovascular Disease Project #[id number] PI: Estela Sandoval MD Please call [phone] with study related questions Dyslipidemia, goal LDL [...] be gained by their invovlement? Thank you. KASSI Britt, fire control assistant [address] [phone] documented in this encounter Plan of Treatment Upcoming Encounters Date Type Department Care Team (Late st Contact Info) Description 04/17/2024 9:30 AM EST Laboratory Laboratory, [facility] [address] [facility] [place] [phone] [facility] [address] [facility] [place] [address] 04/17/2024 10:00 AM EST Imaging [facility] [address] [place] [phone] 04/28/2024 9:30 AM EST Office Visit [facility]ology[facility] [address] [place] [phone] Marimar Del Castillo MD [address] [place] [address] Scheduled Procedures Name Priority Associated Diagnoses Date/Ti [...] this encounter Medical Devices Implanted Type Area Mechanical Engineering Lecturer Device Identifier Shelf Expiration Date Model / Serial / Lot Stent Bili Duodenal [id number] - [id number] Implanted:Qty : 1 on 01/16/2024 by Jose E Bai MD at ENDOSCOPY [facility] N/A: Stomach [employer] 12/02/2025 PBD-1031- 1007 / / [id number] Stent Viabil Biliary [id number] - [id number] Implanted:Qty : 1 on 04/02/2024 by Mars Anna DO at ENDOSCOPY [facility] [employer] [id number] 01/15/2027 [id number] / [id number] / [id number] documented as of this encounter Advance Directives [...] Care Agent (per Health Care Power of Retail Marketing Manager document) Care Teams Order Entry Technician Relationship Specialty Start Date End Date Pedro Luis Bowens DO [address] [place] [address] PCP - General Internal Medicine 09/09/23 documented as of this encounter
--- OUTSIDE RECORDS SUMMARY | 2024-04-25 17:59 | External Medical Summary ---
Author Name Unknown Address Unknown Organization : Laboratory Report Ordering Provider Test Date Status HAYDEN HOLLY 04/08/2024 15:34:51 Final Observation Date Value Abnormality Reference (Units ) Status Glucose Point of Care 04/08/2024 15:34:51 187 Above high normal 70-120 (mg/dL) Final Performing Location
--- OUTSIDE RECORDS SUMMARY | 2024-04-25 17:59 | External Medical Summary ---
Author Name Unknown Address Unknown Organization K01:[facility] [place] - [address] [facility] [address] [address] Laboratory Report Ordering Provider Test Date Status SAIRA VELAZQUEZ 04/09/2024 04:29:18 Final Observation Date Value Abnormality Reference (Units ) Status Albumin 04/09/2024 04:29:18 2.3 Below low normal 3.8-5.0 (g/dL) Final AST (Aspartate aminotransferase) 04/09/2024 04:29:18 36 10-50 (U/L) Final Alk Phos 04/09/2024 04:29:18 479 Above high normal 35-130 (U/L) Final ALT (Alanine aminotransferase) 04/09/2024 04:29:18 32 10-50 (U/L) Final Bilirubin, Total 04/09/2024 04:29:18 1.0 <=1.2 (mg/dL) Final Bilirubin, Direct 04/09/2024 04:29:18 0.7 Above high normal 0.0-0.3 (mg/dL) Final Protein 04/09/2024 04:29:18 4.9 Below low normal 6.0-8.3 (g/dL) Final Performing Location [facility] [place] - [address] [place] [address]
--- OUTSIDE RECORDS SUMMARY | 2024-04-25 17:59 | External Medical Summary ---
Author Name Unknown Address Unknown Organization K01:[facility] [place] - [address] [facility] [address] Laboratory Report Ordering Provider Test Date Status SAIRA VELAZQUEZ 04/09/2024 04:29:18 Final Observation Date Value Abnormality Reference (Units ) Status BUN 04/09/2024 04:29:18 13 6-20 (mg/dL) Final Creatinine 04/09/2024 04:29:18 0.6 0.6-1.2 (mg/dL) Final Glomerular filtration rate/1.73 sq M.predicted [Volume Rate/Area] in Serum, Plasma or Blood by Creatinine-based formula (CKD-EPI) 04/09/2024 04:29:18 >90 >=60 (mL/min) Final eGFR is calculated based on the CKD-EPI 2020 equation. Sodium 04/09/2024 04:29:18 133 Below low normal 135 -146 (mmol/L) Final Potassium 04/09/2024 04:29:18 3.7 3.5-5.1 (m mol/L) Final Cl 04/09/2024 04:29:18 102 98-107 (mm ol/L) Final CO2 04/09/2024 04:29:18 22 22-32 (mmo l/L) Final Anion gap 04/09/2024 04:29:18 9 7-15 (mmol /L) Final Glucose 04/09/2024 04:29:18 150 Above high normal 70 -120 (mg/dL) Final Calcium 04/09/2024 04:29:18 8.6 8.4-10.2 ( mg/dL) Final Performing Location [facility] [address] [facility] [address]
--- OUTSIDE RECORDS SUMMARY | 2024-04-25 17:59 | External Medical Summary ---
Author Name Unknown Address Unknown Organization : Laboratory Report Ordering Provider Test Date Status HAYDEN HOLLY 04/08/2024 06:22:59 Final Observation Date Value Abnormality Reference (Units ) Status Glucose Point of Care 04/08/2024 06:22:59 125 Above high normal 70-120 (mg/dL) Final Performing Location
--- OUTSIDE RECORDS SUMMARY | 2024-04-25 17:59 | External Medical Summary | Summary of Care ---
Author Name Unknown Organization [facility] Address [address] [place] [address] Phone [phone] Care Team Providers Care Business Intelligence Engineer Name Role Phone Pedro Luis Bowens DO Primary Care Provider [phone] Encounter Details Date Type Department Care Team (Latest Contact Info) Description 04/01/2024 12:00 PM EST - 04/01/2024 2:34 PM EST Hospital Encounter Radiology Film File [address] [place] [address] Discharge Disposition: Home - Self Care Allergies Active Allergy Reactions Criticality Noted Date Comments Iodinated Contrast Media Rash 08/29/2009 Pt got a rash after his cath on 08/23/09 Levofloxacin 11/03/2009 Nausea jittery Lisinopril 10/01/2013 Cough Rash documented as of this encounter (statuses as of 04/07/2024) Medications ASPIRIN 81 MG PO CHEW Take 1 Tablet by mouth at bedtime. 100 Tab 3 010 Suspended Iron-Vitamin C 65-125 MG Tablet Take 1 Tablet by mouth every other day. Suspended Multiple Vitamin (MULTI-DAY) Tablet Take 1 Tablet by mouth every evening. Suspended Probiotic Product (PROBIOTIC ACIDOPHILUS BIOBEADS) Capsule Take 1 Cap by mouth daily before breakfast. 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 DX: E11.9 1 Kit 021 Suspended Vitamin D3 25 MCG (1000 UT) Oral Capsule Take 1 Capsule by mouth every evening. Suspended Ranolazine ER 1000 MG Oral Tablet Extended Release 12 HourIndications: Coronary artery disease of [place] artery of [place] heart with stable angina pectoris ([facility]) TAKE ONE TABLET BY MOUTH TWICE A [...] goal of less than 7.0% ([facility]) Take 1 Tablet by mouth in the [...] as of this encounter (statuses as of 04/07/2024) Active Problems Problem Noted Date Diagnosed Date [...] as of this encounter (statuses as of 04/07/2024) Resolved Problems Problem Noted Date Diagnosed Date [...] Per HTN Protocol #27. [employer] Other*[id number] 09/23/2009 05/01/2016 Overview (09/23/2009): Study Titile: Genomic Markers for Patients with Cardiovascular Disease Project #[id number] PI: Estela Sandoval MD Please call [phone] with study related questions Dyslipidemia, goal LDL below 70 08/30/2009 02/26/2013 HTN, goal below 130/80 08/30/200911/14 Overview: Per HTN Protocol #27. History of drug allergy 08/29/200906/23 Dyslipidemia, goal LDL below 70 08/23/2009 02/26/2013 ACEI/ARB contraindicated 09/2013 documented as of this encounter (statuses as of 04/07/2024) Immunizations Name Administration Dates Next Due COVID-19 [...] Description 04/17/2024 9:30 AM EST Laboratory Laboratory, [facility] [address] [facility] [place] [phone] Manuela Chin [address] [facility] [place] [address] 04/17/2024 10:00 AM EST Imaging Radiology [address] [place] [address] 04/28/2024 9:30 AM EST Office Visit Hematology/Oncology [facility] [address] [place] [address] Marimar Del Castillo MD [address] [place] [address] Scheduled Procedures Name Priority Associated Diagnoses Date/Ti [...] this encounter Medical Devices Implanted Type Area Mobile Nurse Device Identifier Shelf Expiration Date Model / Serial / Lot Stent Bili Duodenal [id number] - [id number] Implanted:Qty : 1 on 01/16/2024 by Jose E Bai MD at ENDOSCOPY [facility] N/A: Stomach [employer] 12/02/2025 PBD-1031- 1007 / / [id number] Stent Viabil Biliary [id number] - [id number] Implanted:Qty : 1 on 04/02/2024 by Mars Anna DO at ENDOSCOPY [facility] [place] [id number] 01/15/2027 [id number] / [id number] / [id number] documented as of this encounter Procedures Procedure Name Priority Date/Time Associated Diagnosis Comments RADIOLOGY EXAM - GENERAL RAD (IMAGES ONLY,NO REPORT) Routine 04/01/2024 12:00 PM EST documented in this encounter Results * RADIOLOGY EXAM - GENERAL RAD (IMAGES ONLY,NO REPORT) (04/01/2024 12:00 PM EST) 04/01/2024 12:0 0 PM EST Narrative Scheduling, Silent - 04/06/2024 2:51 PM EST This is an imaging study not interpreted or resulted by a [employer] or [employer] contracted radiologist. Valdez Starr DO RADIOLOGY (RAD GENERAL) Fi nal Result documented in this encounter Advance Directives * [...] Care Agent (per Health Care Power of Offline Editor document) Care Teams Business Intelligence Engineer Relationship Specialty Start Date End Date Pedro Luis Bowens DO [address] [facility] [place] [address] PCP - General Internal Medicine 09/09/23 documented as of this encounter
--- OUTSIDE RECORDS SUMMARY | 2024-04-25 17:59 | External Medical Summary ---
Author Name Unknown Address Unknown Organization : Laboratory Report Ordering Provider Test Date Status HAYDEN HOLLY 04/10/2024 11:16:09 Final Observation Date Value Abnormality Reference (Units ) Status Glucose Point of Care 04/10/2024 11:16:09 153 Above high normal 70-120 (mg/dL) Final Performing Location
--- OUTSIDE RECORDS SUMMARY | 2024-04-25 17:59 | External Medical Summary ---
Author Name Unknown Address Unknown Organization : Laboratory Report Ordering Provider Test Date Status HAYDEN HOLLY 04/09/2024 16:21:31 Final Observation Date Value Abnormality Reference (Units ) Status Glucose Point of Care 04/09/2024 16:21:31 128 Above high normal 70-120 (mg/dL) Final Performing Location
--- OUTSIDE RECORDS SUMMARY | 2024-04-25 17:59 | External Medical Summary ---
Author Name Unknown Address Unknown Organization : Laboratory Report Ordering Provider Test Date Status HAYDEN HOLLY 04/09/2024 06:41:51 Final Observation Date Value Abnormality Reference (Units ) Status Glucose Point of Care 04/09/2024 06:41:51 119 70-120 (mg/dL) Final Performing Location
--- OUTSIDE RECORDS SUMMARY | 2024-04-25 17:59 | External Medical Summary ---
Author Name Unknown Address Unknown Organization K01:[facility] - [address] [facility] [address] Laboratory Report Ordering Provider Test Date Status SAIRA VELAZQUEZ 04/08/2024 03:17:13 Final Observation Date Value Abnormality Reference (Units ) Status WBC, Total 04/08/2024 03:17:13 17.93 Above high normal 4.00-10.80 (K/uL) Final RBC 04/08/2024 03:17:13 3.21 4.50-5.25 (M/uL) Final Hemoglobin 04/08/2024 03:17:13 8.9 Below low normal 14.0-16.8 (g/dL) Final HCT 04/08/2024 03:17:13 28.1 Below low normal 40.0-48.4 (%) Final MCV 04/08/2024 03:17:13 87.5 82.0-99.5 (fL) Final MCH 04/08/2024 03:17:13 27.7 27.0-34.0 (pg) Final MCHC 04/08/2024 03:17:13 31.7 32.0-36.0 (g/dL) Final RDW 04/08/2024 03:17:13 18.2 11.5-15.5 (%) Final Platelets 04/08/2024 03:17:13 122 Below low normal 140-400 (K/uL) Final MPV 04/08/2024 03:17:13 9.6 6.6-11.1 (fL) Final Nucleated erythrocytes/100 leukocytes [Ratio] in Blood by Automated count 04/08/2024 03:17:13 0 <=0 (/100 WBCs) Final Performing Location [facility] - [address] [place] [address]
--- OUTSIDE RECORDS SUMMARY | 2024-04-25 17:59 | External Medical Summary | Summary of Care ---
Author Name Unknown Organization [facility] Address [address] [place] [address] Phone [phone] Care Team Providers Care Sausage Cutter Name Role Phone Pedro Luis Bowens DO Primary Care Provider [phone] Encounter Details Date Type Department Care Team (Latest Contact Info) Description 04/01/2024 3:55 PM EST - 04/01/2024 11:59 PM EST Hospital Encounter Radiology Film File [address] [place] [address] Discharge Disposition: Home - Self [...] Cap by mouth daily before breakfast. 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 [employer] Other*[id number] 09/23/2009 05/01/2016 Overview (09/23/2009): Study Titile: Genomic Markers for Patients with Cardiovascular Disease Project #[id number] PI: Estela Sandoval MD Please call [phone] with study related questions Dyslipidemia, goal LDL [...] Description 04/17/2024 9:30 AM EST Laboratory Laboratory, [facility] [address] [facility] [place] [phone] Manuela Chin [address] [facility] [place] [address] 04/17/2024 10:00 AM EST Imaging Radiology [address] [place] [address] 04/28/2024 9:30 AM EST Office Visit Hematology/Oncology [facility] [address] [place] [address] Marimar Del Castillo MD [address] [place] [address] Scheduled Procedures Name Priority Associated Diagnoses Date/Ti [...] this encounter Medical Devices Implanted Type Area Network Operations Specialist Device Identifier Shelf Expiration Date Model / Serial / Lot Stent Bili Duodenal [id number] - [id number] Implanted:Qty : 1 on 01/16/2024 by Jose E Bai MD at ENDOSCOPY [facility] N/A: Stomach [employer] 12/02/2025 PBD-1031- 1007 / / [id number] Stent Viabil Biliary [id number] - [id number] Implanted:Qty : 1 on 04/02/2024 by Mars Anna DO at [facility]OSCOPY [facility] [employer] [id number] 01/15/2027 [id number] / [id number] / [id number] documented as of this encounter Procedures Procedure Name Priority Date/Time Associated Diagnosis Comments RADIOLOGY EXAM - GENERAL RAD (IMAGES ONLY,NO REPORT) Routine 04/01/2024 3:55 PM EST documented in this encounter Results * RADIOLOGY EXAM - GENERAL RAD (IMAGES ONLY,NO REPORT) (04/01/2024 3:55 PM EST) 04/01/2024 3:53 PM EST Narrative Scheduling, Silent - 04/06/2024 2:59 PM EST This is an imaging study not interpreted or resulted by a [employer] or [employer] contracted radiologist. Valdez Starr DO RADIOLOGY (RAD [...] Care Agent (per Health Care Power of Organic Preparation Technician document) Care Teams Sausage Cutter Relationship Specialty Start Date End Date Pedro Luis Bowens DO [address] [place] [address] PCP - General Internal Medicine 09/09/23 documented as of this encounter
--- OUTSIDE RECORDS SUMMARY | 2024-04-25 17:59 | External Medical Summary ---
Author Name Unknown Address Unknown Organization K01:LAB[facility]ATORY [facility] - [address] [facility] [address] Laboratory Report Ordering Provider Test Date Status SAIRA VELAZQUEZ 04/08/2024 03:17:13 Final Observation Date Value Abnormality Reference (Units ) Status BUN 04/08/2024 03:17:13 15 6-20 (mg/dL) Final Creatinine 04/08/2024 03:17:13 0.7 0.6-1.2 (mg/dL) Final Glomerular filtration rate/1.73 sq M.predicted [Volume Rate/Area] in Serum, Plasma or Blood by Creatinine-based formula (CKD-EPI) 04/08/2024 03:17:13 >90 >=60 (mL/min) Final eGFR is calculated based on the CKD-EPI 2020 equation. Sodium 04/08/2024 03:17:13 131 Below low normal 135 -146 (mmol/L) Final Potassium 04/08/2024 03:17:13 3.6 3.5-5.1 (m mol/L) Final Cl 04/08/2024 03:17:13 100 98-107 (mm ol/L) Final CO2 04/08/2024 03:17:13 23 22-32 (mmo l/L) Final Anion gap 04/08/2024 03:17:13 8 7-15 (mmol /L) Final Glucose 04/08/2024 03:17:13 131 Above high normal 70 -120 (mg/dL) Final Calcium 04/08/2024 03:17:13 8.9 8.4-10.2 ( mg/dL) Final Performing Location [facility] [address] [facility] [place] [address]
--- OUTSIDE RECORDS SUMMARY | 2024-04-25 17:59 | External Medical Summary ---
Author Name Unknown Address Unknown Organization K01:LAB[facility]ATORY [facility] [place] - [address] [facility] [address] [address] Laboratory Report Ordering Provider Test Date Status SAIRA VELAZQUEZ 04/10/2024 05:20:28 Final Observation Date Value Abnormality Reference (Units ) Status Albumin 04/10/2024 05:20:28 2.3 Below low normal 3.8-5.0 (g/dL) Final AST (Aspartate aminotransferase) 04/10/2024 05:20:28 43 10-50 (U/L) Final Alk Phos 04/10/2024 05:20:28 483 Above high normal 35-130 (U/L) Final ALT (Alanine aminotransferase) 04/10/2024 05:20:28 36 10-50 (U/L) Final Bilirubin, Total 04/10/2024 05:20:28 1.1 <=1.2 (mg/dL) Final Bilirubin, Direct 04/10/2024 05:20:28 0.8 Above high normal 0.0-0.3 (mg/dL) Final Protein 04/10/2024 05:20:28 5.1 Below low normal 6.0-8.3 (g/dL) Final Performing Location LABORATORY [facility] - [address] [place] [address]
--- OUTSIDE RECORDS SUMMARY | 2024-04-25 17:59 | External Medical Summary ---
Author Name Unknown Address Unknown Organization : Laboratory Report Ordering Provider Test Date Status HAYDEN HOLLY 04/09/2024 21:41:21 Final Observation Date Value Abnormality Reference (Units ) Status Glucose Point of Care 04/09/2024 21:41:21 105 70-120 (mg/dL) Final Performing Location
--- OUTSIDE RECORDS SUMMARY | 2024-04-25 17:59 | External Medical Summary ---
Author Name Unknown Address Unknown Organization : Laboratory Report Ordering Provider Test Date Status HAYDEN HOLLY 04/08/2024 20:56:43 Final Observation Date Value Abnormality Reference (Units ) Status Glucose Point of Care 04/08/2024 20:56:43 202 Above high normal 70-120 (mg/dL) Final Performing Location
--- OUTSIDE RECORDS SUMMARY | 2024-04-25 17:59 | External Medical Summary ---
Author Name Unknown Address Unknown Organization K01:[facility] [place] [address] [facility] [address] Laboratory Report Ordering Provider Test Date Status HAYDEN HOLLY 04/09/2024 12:55:00 Final Observation Date Value Abnormality Reference (Units ) Status Body temperature 04/09/2024 12:55:00 37.0 (C) Final pH of Venous blood 04/09/2024 12:55:00 7.319 Below low normal 7.320-7.430 (units) Final Carbon dioxide [Partial pressure] in Venous blood 04/09/2024 12:55:00 47.5 40.0-60.0 (mmHg) Final Oxygen [Partial pressure] in Venous blood 04/09/2024 12:55:00 23.1 Below low normal 25.0-50.0 (mmHg) Final Base excess, Capillary 04/09/2024 12:55:00 -1.9 -2.0-2.0 (mmol/L) Final Hemoglobin [Mass/volume] in Blood by Oximetry 04/09/2024 12:55:00 10.2 Below low normal 14.0-16.8 (g/dL) Final Oxyhemoglobin, Venous (FO2HB) 04/09/2024 12:55:00 28.9 Below low normal 40.0-85.0 (% total Hgb) Final Carboxyhemoglobin 04/09/2024 12:55:00 0.7 <=1.5 (% total Hgb) Final Smokers: 0-9.0 % Methemoglobin 04/09/2024 12:55:00 0.9 <= 1.5 (% total Hgb) Final Deoxyhemoglobin/Hemoglo bin.total in Venous blood 04/09/2024 12:55:00 69.5 (% total Hgb) Final Oxygen content in Venous blood 04/09/2024 12:55:00 4.2 Below low normal 7.0-18.0 (%vol) F inal Bicarbonate, Venous, POC (i-STAT) 04/09/2024 12:55:00 23.7 23.0-31.0 (mmol/L) Final Performing Location [facility] [place] [address]
--- OUTSIDE RECORDS SUMMARY | 2024-04-25 17:59 | External Medical Summary ---
Author Name Unknown Address Unknown Organization : Laboratory Report Ordering Provider Test Date Status HAYDEN HOLLY 04/10/2024 16:14:06 Final Observation Date Value Abnormality Reference (Units ) Status Glucose Point of Care 04/10/2024 16:14:06 103 70-120 (mg/dL) Final Performing Location
--- OUTSIDE RECORDS SUMMARY | 2024-04-25 17:59 | External Medical Summary | Summary of Care ---
Author Name Unknown Organization [facility] Address [address] [place] [address] Phone [phone] Care Team Providers Care Ophthalmic Technician Apprentice Name Role Phone Pedro Luis Bowens DO Primary Care Provider [phone] Reason for Visit * Reason Onset Date Comments Advice 04/10/2024 Encounter Details Date Type Department Care Team (Late st Contact Info) Description 04/10/2024 Telephone Family Practice [address] [facility] [address] [place] [address] Pedro Luis Bowens DO [address] [place], [place] [id number] Advice Allergies Active Allergy Reactions Criticality Noted [...] goal of less than 7.0% ([facility]),DM type 2 causing vascular disease ([facility]),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 DX: E11.9 1 Kit 021 Suspended Vitamin D3 25 MCG (1000 UT) Oral Capsule Take 1 Capsule by mouth every evening. Suspended Ranolazine ER 1000 MG Oral Tablet Extended Release 12 HourIndications: Coronary artery disease of [place] artery of [place] heart with stable angina pectoris ([facility]) TAKE ONE TABLET BY MOUTH [...] goal of less than 7.0% ([facility]) Take 1 Tablet by mouth [...] Encounter for antineoplastic chemotherapy 2023 Atherosclerosis of [place] ar teries of extremities with rest pain, bilateral legs 11/08/2023 Pulmonary hypertension, unspecified 07/17/2022 B12 deficiency 03/22/2022 Moderate aortic stenosis 11/28/2021 Occupational exposure to noise 09/27/2020 Coronary artery disease of n ative artery of [place] heart with stable angina pectoris 09/17/2019 Gastroesophageal [...] Per HTN Protocol #27. [employer] Other*[id number] 09/23/2009 05/01/2016 Overview (09/23/2009): Study Titile: Genomic Markers for Patients with Cardiovascular Disease Project #[id number] PI: Estela Sandoval MD Please call [phone] with study related questions Dyslipidemia, goal LDL [...] of Assessment Author No 04/02/2024 1:30 AM Zrui Walters RN * Do you have difficulty [...] Miscellaneous Notes * Telephone Encounter - Precious Hay, SHILPA - 04/10/2024 10:54 AM EST Hi, Do [...] by their invovlement? Thank you. KASSI Britt, county home demonstrator [address] & [place] [phone] documented in this encounter Plan of Treatment Upcoming Encounters Date Type Department Care Team (Late st Contact Info) Description 04/17/2024 9:30 AM EST Laboratory Laboratory, [address] [place] [address] [facility] [address] [place] [address] 04/17/2024 10:00 AM EST Imaging Radiology [facility] [facility] [address] [place] [address] 04/28/2024 9:30 AM EST Office Visit Hematology/Oncology [facility] [address] [place] [phone] Marimar Del Castillo MD [address] [place] [address] Scheduled Procedures Name Priority Associated Diagnoses Date/Ti [...] this encounter Medical Devices Implanted Type Area Cda Teacher Device Identifier Shelf Expiration Date Model / Serial / Lot Stent Bili Duodenal [id number] - [id number] Implanted:Qty : 1 on 01/16/2024 by Jose E Bai MD at ENDOSCOPY [facility] N/A: Stomach [employer] 12/02/2025 PBD-1031- 1007 / / [id number] Stent Viabil Biliary [id number] - [id number] Implanted:Qty : 1 on 04/02/2024 by Mars Anna DO at [facility] [employer] JULIO CESAR [id number] 01/15/2027 [id number] / [id number] / [id number] documented as of this encounter Advance Directives [...] Care Agent (per Health Care Power of Rubber Moulding Machine Operator document) Care Teams Ophthalmic Technician Apprentice Relationship Specialty Start Date End Date Pedro Luis Bowens DO [address] [facility] [place] [address] PCP - General Internal Medicine 09/09/23 documented as of this encounter
--- OUTSIDE RECORDS SUMMARY | 2024-04-25 17:59 | External Medical Summary ---
Author Name Unknown Address Unknown Organization : Laboratory Report Ordering Provider Test Date Status HAYDEN HOLLY 04/08/2024 10:34:00 Final Observation Date Value Abnormality Reference (Units ) Status Glucose Point of Care 04/08/2024 10:34:00 156 Above high normal 70-120 (mg/dL) Final Performing Location
--- OUTSIDE RECORDS SUMMARY | 2024-04-25 17:59 | External Medical Summary ---
Author Name Unknown Address Unknown Organization : Laboratory Report Ordering Provider Test Date Status HAYDEN HOLLY 04/10/2024 06:24:45 Final Observation Date Value Abnormality Reference (Units ) Status Glucose Point of Care 04/10/2024 06:24:45 93 70-120 (mg/dL) Final Performing Location
--- OUTSIDE RECORDS SUMMARY | 2024-04-25 17:59 | External Medical Summary | Summary of Care ---
Author Name Unknown Organization [facility] Address [address] [place] [address] Phone [phone] Care Team Providers Care Certified Health Education Specialist Name Role Phone Pedro Luis Bowens DO Primary Care Provider [phone] Reason for Visit * Reason Onset Date Comments Advice 04/10/2024 Encounter Details Date Type Department Care Team (Late st Contact Info) Description 04/10/2024 Telephone Family Practice [address] [facility], [place] [address] [place] [address] Pedro Luis Bowens DO [address] [place], [place] [id number] Advice Allergies Active Allergy Reactions Criticality Noted [...] Release 12 HourIndications: Coronary artery disease of [place] artery of [place] heart with stable angina pectoris ([facility]) TAKE ONE TABLET BY MOUTH [...] goal of less than 7.0% ([facility]) Take 1 Tablet by mouth [...] Encounter for antineoplastic chemotherapy 2023 Atherosclerosis of [place] ar teries of extremities with rest pain, bilateral legs 11/08/2023 Pulmonary hypertension, unspecified 07/17/2022 B12 deficiency 03/22/2022 Moderate aortic stenosis 11/28/2021 Occupational exposure to noise 09/27/2020 Coronary artery disease of [place]ive artery of [place] heart with stable angina pectoris 09/17/2019 Gastroesophageal [...] Per HTN Protocol #27. [employer] Other*[id number] 09/23/2009 05/01/2016 Overview (09/23/2009): Study Titile: Genomic Markers for Patients with Cardiovascular Disease Project #[id number] PI: Estela Sandoval MD Please call [phone] with study related questions Dyslipidemia, goal LDL [...] EST Please see Dr. Bowens's addition below; [facility] refer pended. * Telephone Encounter - Pedro Luis [...] gained by their invovlement? Thank you. Precious Hay BSN, solid tire tuber machine operator [address] [phone] documented in this encounter Plan of Treatment Upcoming Encounters Date Type Department Care Team (Late st Contact Info) Description 04/17/2024 9:30 AM EST Laboratory Laboratory, [facility] [address] [facility] [place] [address] [facility] [place] [address] 04/17/2024 10:00 AM EST Imaging Radiology [address] 132 [facility] [place] [address] 04/28/2024 9:30 AM EST Office Visit Hematology/Oncology [facility] [place] [address] [place] [address] Marimar Del Castillo MD [address] [place] [address] Scheduled Procedures Name Priority Associated Diagnoses Date/Ti [...] this encounter Medical Devices Implanted Type Area Yard Cleaner Device Identifier Shelf Expiration Date Model / Serial / Lot Stent Bili Duodenal [id number] - [id number] Implanted:Qty : 1 on 01/16/2024 by Jose E Bai MD at ENDOSCOPY [facility] N/A: Stomach [employer] 12/02/2025 PBD-1031- 1007 / / [id number] Stent Viabil Biliary [id number] - [id number] Implanted:Qty : 1 on 04/02/2024 by Mars Anna DO [place] [facility] [employer] [id number] 01/15/2027 [id number] / [id number] / [id number] documented as of this encounter Visit Diagnoses [...] Care Agent (per Health Care Power of Producer Assistant document) Care Teams Certified Health Education Specialist Relationship Specialty Start Date End Date Pedro Luis Bowens DO [address] [place] [address] PCP - General Internal Medicine 09/09/23 documented as of this encounter
--- OUTSIDE RECORDS SUMMARY | 2024-04-25 17:59 | External Medical Summary ---
Author Name Unknown Address Unknown Organization K01:[facility] [place] [address] [facility] [address] Laboratory Report Ordering Provider Test Date Status SAIRA VELAZQUEZ 04/10/2024 05:20:28 Final Observation Date Value Abnormality Reference (Units ) Status BUN 04/10/2024 05:20:28 13 6-20 (mg/dL) Final Creatinine 04/10/2024 05:20:28 0.6 0.6-1.2 (mg/dL) Final Glomerular filtration rate/1.73 sq M.predicted [Volume Rate/Area] in Serum, Plasma or Blood by Creatinine-based formula (CKD-EPI) 04/10/2024 05:20:28 >90 >=60 (mL/min) Final eGFR is calculated based on the CKD-EPI 2020 equation. Sodium 04/10/2024 05:20:28 135 135-146 (m mol/L) Final Potassium 04/10/2024 05:20:28 3.7 3.5-5.1 (m mol/L) Final Cl 04/10/2024 05:20:28 103 98-107 (mm ol/L) Final CO2 04/10/2024 05:20:28 24 22-32 (mmo l/L) Final Anion gap 04/10/2024 05:20:28 8 7-15 (mmol /L) Final Glucose 04/10/2024 05:20:28 127 Above high normal 70 -120 (mg/dL) Final Calcium 04/10/2024 05:20:28 8.3 Below low normal 8.4 -10.2 (mg/dL) Final Performing Location [facility] [place] - [address] [place] [address]
--- OUTSIDE RECORDS SUMMARY | 2024-04-25 18:00 | External Medical Summary ---
Author Name Unknown Address Unknown Organization K01:[facility]ATORY [facility] [place] - [address] [facility] [address] Laboratory Report Ordering Provider Test Date Status SAIRA VELAZQUEZ 04/07/2024 05:10:19 Final Observation Date Value Abnormality Reference (Units ) Status BUN 04/07/2024 05:10:19 17 6-20 (mg/dL) Final Creatinine 04/07/2024 05:10:19 0.7 0.6-1.2 (mg/dL) Final Glomerular filtration rate/1.73 sq M.predicted [Volume Rate/Area] in Serum, Plasma or Blood by Creatinine-based formula (CKD-EPI) 04/07/2024 05:10:19 >90 >=60 (mL/min) Final eGFR is calculated based on the CKD-EPI 2020 equation. Sodium 04/07/2024 05:10:19 134 Below low normal 135 -146 (mmol/L) Final Potassium 04/07/2024 05:10:19 3.6 3.5-5.1 (m mol/L) Final Cl 04/07/2024 05:10:19 103 98-107 (mm ol/L) Final CO2 04/07/2024 05:10:19 22 22-32 (mmo l/L) Final Anion gap 04/07/2024 05:10:19 9 7-15 (mmol /L) Final Glucose 04/07/2024 05:10:19 150 Above high normal 70 -120 (mg/dL) Final Calcium 04/07/2024 05:10:19 9.1 8.4-10.2 ( mg/dL) Final Performing Location [facility] [place] - [address] [facility] [address]
--- OUTSIDE RECORDS SUMMARY | 2024-04-25 18:00 | External Medical Summary ---
Author Name Unknown Address Unknown Organization : Laboratory Report Ordering Provider Test Date Status HENRY VILLASENOR 04/06/2024 21:59:22 Final Observation Date Value Abnormality Reference (Units ) Status Glucose Point of Care 04/06/2024 21:59:22 177 Above high normal 70-120 (mg/dL) Final Performing Location
--- OUTSIDE RECORDS SUMMARY | 2024-04-25 18:00 | External Medical Summary | Summary of Care ---
Author Name Unknown Organization [facility] Address [address] [place] [address] Phone [phone] Care Team Providers Care Hydraulic Auto Jack Mechanic Name Role Phone Pedro Luis Bowens DO Primary Care Provider [phone] Encounter Details Date Type Department Care Team (Late st Contact Info) Description 04/01/2024 Orders Only Unspecified Department Valdez Starr, DO [address] [place], [place] [id number] Allergies Active Allergy Reactions Criticality Noted Date Comments Iodinated Contrast Media Rash 08/29/2009 Pt got a rash after his cath on 08/23/09 Levofloxacin 11/03/2009 Nausea jittery Lisinopril 10/01/2013 Cough Rash documented as of this encounter (statuses as of 04/06/2024) Medications ASPIRIN 81 MG PO CHEW Take 1 Tablet by mouth at bedtime. 100 Tab 3 010 Suspended Iron-Vitamin C 65-125 MG Tablet Take 1 Tablet by mouth every other day. Suspended Multiple Vitamin (MULTI-DAY) Tablet Take 1 Tablet by mouth every evening. Suspended Probiotic Product (PROBIOTIC ACIDOPHILUS BIOBEADS) Capsule Take 1 Cap by mouth daily before breakfast. 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 DX: E11.9 1 Kit 021 Suspended Vitamin D3 25 MCG (1000 UT) Oral Capsule Take 1 Capsule by mouth every evening. Suspended Ranolazine ER 1000 MG Oral Tablet Extended Release 12 HourIndications: Coronary artery disease of [place] artery of [place] heart with stable angina pectoris ([facility]) TAKE ONE TABLET BY MOUTH TWICE A [...] goal of less than 7.0% ([facility]) Take 1 Tablet by mouth in the [...] as of this encounter (statuses as of 04/06/2024) Active Problems Problem Noted Date Diagnosed Date Pneumonia of right upper lobe due to infectious organism 04/04/2024 Hyponatremia 04/04/2024 Acute cholecystitis 04/02/2024 Sepsis without acute organ dysfunction Goals of care, counseling/discussion 04/02/2024 Palliative care encounter 04/02/2024 Pancytopenia 04/01/2024 Secondary malignant neoplasm of liver and intrahepatic bile duct 02/17/2024 Malignant neoplasm of head of pancreas Metastasis from pancreatic cancer 01/28/2024 Encounter for antineoplastic chemotherapy 2023 Atherosclerosis of [place] ar teries of extremities with rest pain, bilateral legs 11/08/2023 Pulmonary hypertension, unspecified 07/17/2022 B12 deficiency 03/22/2022 Moderate aortic stenosis 11/28/2021 Occupational exposure to noise 09/27/2020 Coronary artery disease of n ative artery of [place] heart with stable angina pectoris 09/17/2019 Gastroesophageal [...] as of this encounter (statuses as of 04/06/2024) Resolved Problems Problem Noted Date Diagnosed Date [...] Per HTN Protocol #27. [employer] Card[employer] Research Other*[id number] 09/23/2009 05/01/2016 Overview (09/23/2009): Study Titile: Genomic Markers for Patients with Cardiovascular Disease Project #[id number] PI: Estela Sandoval MD Please call [phone] with study related questions Dyslipidemia, goal LDL below 70 08/30/2009 02/26/2013 HTN, goal below 130/80 08/30/200911/14 Overview: Per HTN Protocol #27. History of drug allergy 08/29/200906/23 Dyslipidemia, goal LDL below 70 08/23/2009 02/26/2013 ACEI/ARB contraindicated 09/2013 documented as of this encounter (statuses as of 04/06/2024) Immunizations Name Administration Dates Next Due COVID-19 [...] Smoking Tobacco: Former Cigarettes 1 25 1 96 - 1985 Passive Smoke Exposure: Past [...] No 03/02/2024 Does the household have a [facility] hospital[facility] source of income? (Household - for [...] Description 04/17/2024 9:30 AM EST Laboratory Laboratory, [facility] 132 [facility] [place] [phone] Manuela Chin [address] [facility] [place] [address] 04/17/2024 10:00 AM EST Imaging Radiology [address] [place] [address] 04/28/2024 9:30 AM EST Office Visit Hematology/Oncology [facility] [place] [address] [place] [phone] Marimar Del Castillo MD [address] [place] [address] Scheduled Procedures Name Priority Associated Diagnoses Date/Ti [...] this encounter Medical Devices Implanted Type Area Transmission Mechanic Device Identifier Shelf Expiration Date Model / Serial / Lot Stent Bili Duodenal [id number] - [id number] Implanted:Qty : 1 on 01/16/2024 by Jose E Bai MD at ENDOSCOPY [facility] N/A: Stomach [employer] 12/02/2025 PBD-1031- 1007 / / [id number] Stent Viabil Biliary [id number] - [id number] Implanted:Qty : 1 on 04/02/2024 by Mars Anna DO at [facility] [place] [employer] JULIO CES[employer] [id number] 01/15/2027 [id number] / [id number] / [id number] documented as of this encounter Procedures Procedure Name Priority Date/Time Associated Diagnosis Comments RADIOLOGY EXAM - CT (IMAGES ONLY, NO REPORT) Routine 04/01/2024 2:40 PM EST documented in this encounter Results * RADIOLOGY EXAM - CT (IMAGES ONLY, NO REPORT) (04/01/2024 2:40 PM EST) 04/01/2024 2:34 PM EST Narrative Scheduling, Silent - 04/06/2024 2:55 PM EST This is an imaging study not interpreted or resulted by a [employer] or [employer] contracted radiologist. us Valdez Starr DO RAD CT Final Resu lt documented in this encounter Additional Health Concerns [...] Care Agent (per Health Care Power of Tufting Machine Operator Single Needle document) Care Teams Hydraulic Auto Jack Mechanic Relationship Specialty Start Date End Date Pedro Luis Bowens DO [address] [place] [address] PCP - General Internal Medicine 09/09/23 documented as of this encounter
--- OUTSIDE RECORDS SUMMARY | 2024-04-25 18:00 | External Medical Summary | Summary of Care ---
Author Name Unknown Organization [facility] Address [address] [place] [address] Phone [phone] Care Team Providers Care African Studies Professor Name Role Phone Pedro Luis Bowens DO Primary Care Provider [phone] Encounter Details Date Type Department Care Team (Latest Contact Info) Description 04/01/2024 2:40 PM EST - 04/01/2024 3:54 PM EST Hospital Encounter Radiology Film File [address] [place] [address] Discharge Disposition: Home - Self [...] Cap by mouth daily before breakfast. 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 DX: E11.9 1 Kit 021 Suspended Vitamin D3 25 MCG (1000 UT) Oral Capsule Take 1 Capsule by mouth every evening. Suspended Ranolazine ER 1000 MG Oral Tablet Extended Release 12 HourIndications: Coronary artery disease of [place] artery of [place] heart with stable angina pectoris ([facility]) TAKE ONE TABLET BY MOUTH [...] hemoglobin A1c goal of less than 7.0% ([facility]) Take 1 Tablet by mouth [...] Encounter for antineoplastic chemotherapy 2023 Atherosclerosis of [place] ar teries of extremities with rest pain, bilateral legs 11/08/2023 Pulmonary hypertension, unspecified 07/17/2022 B12 deficiency 03/22/2022 Moderate aortic stenosis 11/28/2021 Occupational exposure to noise 09/27/2020 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 [employer] Card[employer] Research Other*[id number] 09/23/2009 05/01/2016 Overview (09/23/2009): Study Titile: Genomic Markers for Patients with Cardiovascular Disease Project #[id number] PI: Estela Sandoval MD Please call [phone] with study related questions Dyslipidemia, goal LDL [...] Description 04/17/2024 9:30 AM EST Laboratory Laboratory, [facility] 132 [facility] [place] [phone] Manuela Chin 132 [facility] [place] [address] 04/17/2024 10:00 AM EST Imaging Radiology [address] [place] [address] 04/28/2024 9:30 AM EST Office Visit Hematology/Oncology [facility] [address] [place] [address] Marimar Del Castillo MD [address] [place] [address] Scheduled Procedures Name Priority Associated Diagnoses Date/Ti [...] this encounter Medical Devices Implanted Type Area Boilermaker Lo[place]man Device Identifier Shelf Expiration Date Model / Serial / Lot Stent Bili Duodenal [id number] - [id number] Implanted:Qty : 1 on 01/16/2024 by Jose E Bai MD at ENDOSCOPY [facility] N/A: Stomach [employer] 12/02/2025 PBD-1031- 1007 / / [id number] Stent Viabil Biliary [id number] - [id number] Implanted:Qty : 1 on 04/02/2024 by Mars Anna DO at [facility] [employer] [id number] 01/15/2027 [id number] / [id number] / [id number] documented as of this encounter Procedures Procedure [...] study not interpreted or resulted by a [employer] or [employer] contracted radiologist. us Valdez Starr DO RAD CT Final Resu lt documented in this encounter Advance Directives * [...] Care Agent (per Health Care Power of Horizontal Boring Mill Set Up Operator document) Care Teams African Studies Professor Relationship Specialty Start Date End Date Pedro Luis Bowens DO [address] [facility] [place] [facility] [address] PCP - General Internal Medicine 09/09/23 documented as of this encounter
--- OUTSIDE RECORDS SUMMARY | 2024-04-25 18:00 | External Medical Summary ---
Author Name Unknown Address Unknown Organization : Laboratory Report Ordering Provider Test Date Status HENRY VILLSAENOR 04/07/2024 06:01:01 Final Observation Date Value Abnormality Reference (Units ) Status Glucose Point of Care 04/07/2024 06:01:01 141 Above high normal 70-120 (mg/dL) Final Performing Location
--- OUTSIDE RECORDS SUMMARY | 2024-04-25 18:00 | External Medical Summary ---
Author Name Unknown Address Unknown Organization : Laboratory Report Ordering Provider Test Date Status HENRY VILLASENOR 04/06/2024 06:55:06 Final Observation Date Value Abnormality Reference (Units ) Status Glucose Point of Care 04/06/2024 06:55:06 209 Above high normal 70-120 (mg/dL) Final Performing Location
--- OUTSIDE RECORDS SUMMARY | 2024-04-25 18:00 | External Medical Summary | Summary of Care ---
Author Name Unknown Organization [facility] Address [address] [place] [address] Phone [phone] Care Team Providers Care Video Control Operator Name Role Phone Pedro Luis Bowens DO Primary Care Provider [phone] Reason for Visit * Reason Onset Date Comments Mycode Lab Reorder 04/06/2024 Encounter Details Date Type Department Care Team (Late st Contact Info) Description 04/06/2024 Orders Only Outcomes Research Department [address] [place], [place] [phone] Kesha Dwyer CHRA MyCode Research Other*[id number]* Allergies Active Allergy Reactions Criticality Noted Date [...] Release 12 HourIndications: Coronary artery disease of [place] artery of [place] heart with stable angina pectoris (FORMER[facility] SELF [...] Encounter for antineoplastic chemotherapy 2023 Atherosclerosis of [place] ar teries of extremities with rest pain, bilateral legs 11/08/2023 Pulmonary hypertension, unspecified 07/17/2022 B12 deficiency 03/22/2022 Moderate aortic stenosis 11/28/2021 Occupational exposure to noise 09/27/2020 Coronary artery disease of n ative artery of [place] heart with stable angina pectoris 09/17/2019 Gastroesophageal [...] Per HTN Protocol #27. [employer] Other*[id number] 09/23/2009 05/01/2016 Overview (09/23/2009): Study Titile: Genomic Markers for Patients with Cardiovascular Disease Project #[id number] PI: Estela Sandoval MD Please call [phone] with study related questions Dyslipidemia, goal LDL [...] documented in this encounter Progress Notes * Kesha Dwyer CHRA - 04/06/2024 5:30 PM EST MyCode lab reordered. documented in this encounter Plan of Treatment Upcoming Encounters Date Type Department Care Team (Late st Contact Info) Description 04/17/2024 9:30 AM EST Laboratory Laboratory, [facility] [address] [place] [address] [facility] 132 [facility] [place] [address] 04/17/2024 10:00 AM EST Imaging [facility] 132 [facility] [place] [phone] 04/28/2024 9:30 AM EST Office Visit Hematology/Oncology [facility] [place] [address] [place] [phone] Marimar Del Castillo MD [address] [place] [address] Scheduled Orders Name Type Priority Associated Diagnoses Orde r Schedule MYCODE SUBSEQUENT ADULT Lab Routine MyCode Research Other*[id number] Every 6 Months for 2 Occurrences starting 04/06/2024 until 04/26/2025 Scheduled Procedures Name Priority Associated Diagnoses Date/Ti [...] this encounter Medical Devices Implanted Type Area Torch Straightener And Heater Device Identifier Shelf Expiration Date Model / Serial / Lot Stent Bili Duodenal [id number] - [id number] Implanted:Qty : 1 on 01/16/2024 by Jose E Bai MD at [facility] N/A: Stomach [employer] 12/02/2025 PBD-1031- 1007 / / [id number] Stent Viabil Biliary [id number] - [id number] Implanted:Qty : 1 on 04/02/2024 by Mars Anna DO at ENDOSCOPY [facility] [employer] [id number] 01/15/2027 [id number] / [id number] / [id number] documented as of this encounter Visit Diagnoses Diagnosis MyCode Research Other*[id number] Primary documented in this encounter Advance Directives * [...] Care Agent (per Health Care Power of Supervisor Paper Products document) Care Teams Video Control Operator Relationship Specialty Start Date End Date Pedro Luis Bowens DO [address] [place] [address] PCP - General Internal Medicine 09/09/23 documented as of this encounter
--- OUTSIDE RECORDS SUMMARY | 2024-04-25 18:00 | External Medical Summary ---
Author Name Unknown Address Unknown Organization K01:LABORATORY [facility] [place] - [address] [place] [id number] Laboratory Report Ordering Provider Test Date Status SAIRA VELAZQUEZ 04/06/2024 07:00:00 Final Observation Date Value Abnormality Reference (Units ) Status WBC, Total 04/06/2024 07:00:00 19.52 Above high normal 4.00-10.80 (K/uL) Final RBC 04/06/2024 07:00:00 3.44 4.50-5.25 (M/uL) Final Hemoglobin 04/06/2024 07:00:00 9.7 Below low normal 14.0-16.8 (g/dL) Final HCT 04/06/2024 07:00:00 30.1 Below low normal 40.0-48.4 (%) Final MCV 04/06/2024 07:00:00 87.5 82.0-99.5 (fL) Final MCH 04/06/2024 07:00:00 28.2 27.0-34.0 (pg) Final MCHC 04/06/2024 07:00:00 32.2 32.0-36.0 (g/dL) Final RDW 04/06/2024 07:00:00 18.1 11.5-15.5 (%) Final Platelets 04/06/2024 07:00:00 184 140-400 (K/uL) Final MPV 04/06/2024 07:00:00 10.1 6.6-11.1 (fL) Final Nucleated erythrocytes/100 leukocytes [Ratio] in Blood by Automated count 04/06/2024 07:00:00 0 <=0 (/100 WBCs) Final Performing Location [facility] [place] - [address] [place] [address]
--- OUTSIDE RECORDS SUMMARY | 2024-04-25 18:00 | External Medical Summary ---
Author Name Unknown Address Unknown Organization K01:[facility] [place] [address] [facility] [address] Laboratory Report Ordering Provider Test Date Status SAIRA VELAZQUEZ 04/06/2024 07:00:00 Final Observation Date Value Abnormality Reference (Units ) Status BUN 04/06/2024 07:00:00 27 Above high normal 6-20 (mg/dL) Final Creatinine 04/06/2024 07:00:00 1.0 0.6-1.2 (mg/dL) Final Glomerular filtration rate/1.73 sq M.predicted [Volume Rate/Area] in Serum, Plasma or Blood by Creatinine-based formula (CKD-EPI) 04/06/2024 07:00:00 76 >=60 (mL/min) Final eGFR is calculated based on the CKD-EPI 2020 equation. Sodium 04/06/2024 07:00:00 130 Below low normal 135 -146 (mmol/L) Final Potassium 04/06/2024 07:00:00 3.5 3.5-5.1 (m mol/L) Final Cl 04/06/2024 07:00:00 99 98-107 (mm ol/L) Final CO2 04/06/2024 07:00:00 22 22-32 (mmo l/L) Final Anion gap 04/06/2024 07:00:00 9 7-15 (mmol /L) Final Glucose 04/06/2024 07:00:00 247 Above high normal 70 -120 (mg/dL) Final Calcium 04/06/2024 07:00:00 9.0 8.4-10.2 ( mg/dL) Final Performing Location [facility] [place] [address] [facility] [address] [place] [address]
--- OUTSIDE RECORDS SUMMARY | 2024-04-25 18:00 | External Medical Summary ---
Author Name Unknown Address Unknown Organization K01:[place] [place] [address] [facility] [place] [address] Laboratory Report Ordering Provider Test Date Status SAIRA VELAZQUEZ 04/06/2024 07:00:00 Final Observation Date Value Abnormality Reference (Units ) Status Albumin 04/06/2024 07:00:00 2.4 Below low normal 3.8-5.0 (g/dL) Final AST (Aspartate aminotransferase) 04/06/2024 07:00:00 45 10-50 (U/L) Final Alk Phos 04/06/2024 07:00:00 499 Above high normal 35-130 (U/L) Final ALT (Alanine aminotransferase) 04/06/2024 07:00:00 43 10-50 (U/L) Final Bilirubin, Total 04/06/2024 07:00:00 0.9 <=1.2 (mg/dL) Final Bilirubin, Direct 04/06/2024 07:00:00 0.7 Above high normal 0.0-0.3 (mg/dL) Final Protein 04/06/2024 07:00:00 5.1 Below low normal 6.0-8.3 (g/dL) Final Performing Location [facility] [place] [address] [place] [address]
--- OUTSIDE RECORDS SUMMARY | 2024-04-25 18:00 | External Medical Summary ---
Author Name Unknown Address Unknown Organization : Laboratory Report Ordering Provider Test Date Status HENRY VILLASENOR 04/07/2024 15:42:15 Final Observation Date Value Abnormality Reference (Units ) Status Glucose Point of Care 04/07/2024 15:42:15 233 Above high normal 70-120 (mg/dL) Final Performing Location
--- OUTSIDE RECORDS SUMMARY | 2024-04-25 18:00 | External Medical Summary | Summary of Care ---
Author Name Unknown Organization [facility] Address [address] [place] [address] Phone [phone] Care Team Providers Care Flag Car Driver Name Role Phone Pedro Luis Bowens DO Primary Care Provider [phone] Encounter Details Date Type Department Care Team (Late st Contact Info) Description 04/01/2024 Orders Only Unspecified Department Valdez Starr, DO [address] [place], [place] [id number] Allergies Active Allergy Reactions Criticality Noted Date [...] Cap by mouth daily before breakfast. 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 DX: E11.9 1 Kit 021 Suspended Vitamin D3 25 MCG (1000 UT) Oral Capsule Take 1 Capsule by mouth every evening. Suspended Ranolazine ER 1000 MG Oral Tablet Extended Release 12 HourIndications: Coronary artery disease of [place] artery of [place] heart with stable angina pectoris ([facility]) TAKE ONE TABLET BY MOUTH TWICE [...] hemoglobin A1c goal of less than 7.0% ([facility]) Take 1 Tablet by mouth in [...] Encounter for antineoplastic chemotherapy 2023 Atherosclerosis of [place] ar teries of extremities with rest pain, bilateral legs 11/08/2023 Pulmonary hypertension, unspecified 07/17/2022 B12 deficiency 03/22/2022 Moderate aortic stenosis 11/28/2021 Occupational exposure to noise 09/27/2020 Coronary artery disease of [place] artery of [place] heart with stable angina pectoris 09/17/2019 Gastroesophageal [...] Per HTN Protocol #27. [employer] Other*[id number] 09/23/2009 05/01/2016 Overview (09/23/2009): Study Titile: Genomic Markers for Patients with Cardiovascular Disease Project #[id number] PI: Estela Sandoval MD Please call [phone] with study related questions Dyslipidemia, goal LDL [...] No 03/02/2024 Does the household have a [facility] source of income? (Household - for ages [...] Description 04/17/2024 9:30 AM EST Laboratory Laboratory, [facility] [address] [facility] [place] [id number] Manuela Chin [address] [facility] [place] [address] 04/17/2024 10:00 AM EST Imaging Radiology [address] [place] [address] 04/28/2024 9:30 AM EST Office Visit Hematology/Oncology Otoniel Marycarmen [place] [address] [place] [phone] Marimar Del Castillo MD [address] [place] [address] Scheduled Procedures Name Priority Associated Diagnoses Date/Ti [...] encounter Medical Devices Implanted Type Area Admission Specialist Device Identifier Shelf Expiration Date Model / Serial / Lot Stent Bili Duodenal [id number] - [id number] Implanted:Qty : 1 on 01/16/2024 by Jose E Bai MD at ENDOSCOPY [facility] N/A: Stomach [employer] 12/02/2025 PBD-1031- 1007 / / [id number] Stent Viabil Biliary [id number] - [id number] Implanted:Qty : 1 on 04/02/2024 by Mars Anna DO [place] [facility] [place] [employer] JULIO CESAR [id number] 01/15/2027 [id number] / [id number] / [id number] documented as of this encounter Procedures Procedure [...] study not interpreted or resulted by a [employer] or [employer] contracted radiologist. us Valdez Starr DO RADIOLOGY (RAD GENERAL) Fi nal Result documented in this encounter Additional Health Concerns [...] Care Agent (per Health Care Power of Nuclear Power Reactor Operator document) Care Teams Flag Car Driver Relationship Specialty Start Date End Date Pedro Luis Bowens DO [address] [place] [address] PCP - General Internal Medicine 09/09/23 documented as of this encounter
--- OUTSIDE RECORDS SUMMARY | 2024-04-25 18:00 | External Medical Summary ---
Author Name Unknown Address Unknown Organization : Laboratory Report Ordering Provider Test Date Status HENRY VILLASENOR 04/07/2024 11:17:19 Final Observation Date Value Abnormality Reference (Units ) Status Glucose Point of Care 04/07/2024 11:17:19 155 Above high normal 70-120 (mg/dL) Final Performing Location
--- OUTSIDE RECORDS SUMMARY | 2024-04-25 18:00 | External Medical Summary ---
Author Name Unknown Address Unknown Organization : Laboratory Report Ordering Provider Test Date Status HENRY VILLASENOR 04/07/2024 06:54:22 Final Observation Date Value Abnormality Reference (Units ) Status Glucose Point of Care 04/07/2024 06:54:22 163 Above high normal 70-120 (mg/dL) Final Performing Location
--- OUTSIDE RECORDS SUMMARY | 2024-04-25 18:00 | External Medical Summary ---
Author Name Unknown Address Unknown Organization : Laboratory Report Ordering Provider Test Date Status HENRY VILLASENOR 04/06/2024 16:07:13 Final Observation Date Value Abnormality Reference (Units ) Status Glucose Point of Care 04/06/2024 16:07:13 229 Above high normal 70-120 (mg/dL) Final Performing Location
--- OUTSIDE RECORDS SUMMARY | 2024-04-25 18:00 | External Medical Summary | Summary of Care ---
Author Name Unknown Organization [facility] Address [address] [place] [address] Phone [phone] Care Team Providers Care Regional Safety Manager Name Role Phone Pedro Luis Bowens DO Primary Care Provider [phone] Encounter Details Date Type Department Care Team (Late st Contact Info) Description 04/01/2024 Orders Only Unspecified Department Valdez Starr, DO [address] [place], [place] [phone] Allergies Active Allergy Reactions Criticality Noted Date [...] Cap by mouth daily before breakfast. 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 DX: E11.9 1 Kit 021 Suspended Vitamin D3 25 MCG (1000 UT) Oral Capsule Take 1 Capsule by mouth every evening. Suspended Ranolazine ER 1000 MG Oral Tablet Extended Release 12 HourIndications: Coronary artery disease of [place] artery of [place] heart with stable angina pectoris ([facility]) TAKE ONE TABLET BY [...] hemoglobin A1c goal of less than 7.0% ([facility]) Take 1 Tablet by [...] Encounter for antineoplastic chemotherapy 2023 Atherosclerosis of [place] ar teries of extremities with rest pain, bilateral legs 11/08/2023 Pulmonary hypertension, unspecified 07/17/2022 B12 deficiency 03/22/2022 Moderate aortic stenosis 11/28/2021 Occupational exposure to noise 09/27/2020 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 [employer] Other*[id number] 09/23/2009 05/01/2016 Overview (09/23/2009): Study Titile: Genomic Markers for Patients with Cardiovascular Disease Project #[id number] PI: Estela Sandoval MD Please call [phone] with study related questions Dyslipidemia, goal LDL [...] No 03/02/2024 Does the household have a [facility] source of income? (Household - for [...] Description 04/17/2024 9:30 AM EST Laboratory Laboratory, [facility] [address] [facility] [place] [phone] Manuela Chin [address] [facility] [place] [address] 04/17/2024 10:00 AM EST Imaging Radiology [address] [place] [address] 04/28/2024 9:30 AM EST Office Visit Hematology/Oncology Otoniel Marycarmen [place] [address] [place] [phone] Marimar Del Castillo MD [address] [place] [address] Scheduled Procedures Name Priority Associated Diagnoses Date/Ti [...] this encounter Medical Devices Implanted Type Area Property Master Device Identifier Shelf Expiration Date Model / Serial / Lot Stent Bili Duodenal [id number] - [id number] Implanted:Qty : 1 on 01/16/2024 by Jose E Bai MD at ENDOSCOPY [facility] N/A: Stomach [employer] 12/02/2025 PBD-1031- 1007 / / [id number] Stent Viabil Biliary [id number] - [id number] Implanted:Qty : 1 on 04/02/2024 [place] Anna [place] [facility] [place] [employer] JULIO CESAR [id number] 01/15/2027 [id number] / [id number] / [id number] documented as of this encounter Procedures Procedure [...] study not interpreted or resulted by a [employer] or [employer] contracted radiologist. us Valdez Starr DO RADIOLOGY [...] Care Agent (per Health Care Power of Envelope Sealer Operator document) Care Teams Regional Safety Manager Relationship Specialty Start Date End Date Pedro Luis Bowens DO [address] [place] [address] PCP - General Internal Medicine 09/09/23 documented as of this encounter
--- OUTSIDE RECORDS SUMMARY | 2024-04-25 18:00 | External Medical Summary ---
Author Name Unknown Address Unknown Organization K01:LABORATORY [facility] - [address] [place] [address] Laboratory Report Ordering Provider Test Date Status SAIRA VELAZQUEZ 04/07/2024 05:10:19 Final Observation Date Value Abnormality Reference (Units ) Status Albumin 04/07/2024 05:10:19 2.4 Below low normal 3.8-5.0 (g/dL) Final AST (Aspartate aminotransferase) 04/07/2024 05:10:19 53 Above high normal 10-50 (U/L) Final Alk Phos 04/07/2024 05:10:19 555 Above high normal 35-130 (U/L) Final ALT (Alanine aminotransferase) 04/07/2024 05:10:19 46 10-50 (U/L) Final Bilirubin, Total 04/07/2024 05:10:19 1.0 <=1.2 (mg/dL) Final Bilirubin, Direct 04/07/2024 05:10:19 0.8 Above high normal 0.0-0.3 (mg/dL) Final Protein 04/07/2024 05:10:19 5.1 Below low normal 6.0-8.3 (g/dL) Final Performing Location LABORATORY [facility] - [address] [place] [address]
--- OUTSIDE RECORDS SUMMARY | 2024-04-25 18:00 | External Medical Summary ---
Author Name Unknown Address Unknown Organization K01:[facility] [place] [address] [facility] [address] Laboratory Report Ordering Provider Test Date Status SAIRA VELAZQUEZ 04/07/2024 05:10:19 Final Observation Date Value Abnormality Reference (Units ) Status WBC, Total 04/07/2024 05:10:19 4.87 4.00-10.80 (K/uL) Final RBC 04/07/2024 05:10:19 3.63 4.50-5.25 (M/uL) Final Hemoglobin 04/07/2024 05:10:19 10.4 Below low normal 14.0-16.8 (g/dL) Final HCT 04/07/2024 05:10:19 31.9 Below low normal 40.0-48.4 (%) Final MCV 04/07/2024 05:10:19 87.9 82.0-99.5 (fL) Final MCH 04/07/2024 05:10:19 28.7 27.0-34.0 (pg) Final MCHC 04/07/2024 05:10:19 32.6 32.0-36.0 (g/dL) Final RDW 04/07/2024 05:10:19 18.0 11.5-15.5 (%) Final Platelets 04/07/2024 05:10:19 148 140-400 (K/uL) Final MPV 04/07/2024 05:10:19 9.9 6.6-11.1 (fL) Final Nucleated erythrocytes/100 leukocytes [Ratio] in Blood by Automated count 04/07/2024 05:10:19 0 <=0 (/100 WBCs) Final Performing Location [facility] - [address] [facility] [address]
--- OUTSIDE RECORDS SUMMARY | 2024-04-25 18:00 | External Medical Summary ---
Author Name Unknown Address Unknown Organization : Laboratory Report Ordering Provider Test Date Status HENRY VILLASENOR 04/06/2024 10:56:20 Final Observation Date Value Abnormality Reference (Units ) Status Glucose Point of Care 04/06/2024 10:56:20 237 Above high normal 70-120 (mg/dL) Final Performing Location
--- OUTSIDE RECORDS SUMMARY | 2024-04-25 18:01 | External Medical Summary ---
Author Name Unknown Address Unknown Organization : Laboratory Report Ordering Provider Test Date Status HENRY VILLASENOR 04/04/2024 11:03:04 Final Observation Date Value Abnormality Reference (Units ) Status Glucose Point of Care 04/04/2024 11:03:04 307 Above high normal 70-120 (mg/dL) Final Performing Location
--- OUTSIDE RECORDS SUMMARY | 2024-04-25 18:01 | External Medical Summary ---
Author Name Unknown Address Unknown Organization K01:[facility] [place] - [address] [place] [address] Laboratory Report Ordering Provider Test Date Status SAIRA VELAZQUEZ 04/05/2024 00:24:00 Final Observation Date Value Abnormality Reference (Units ) Status WBC, Total 04/05/2024 00:24:00 12.01 Above high normal 4.00-10.80 (K/uL) Final RBC 04/05/2024 00:24:00 3.85 4.50-5.25 (M/uL) Final Hemoglobin 04/05/2024 00:24:00 11.0 Below low normal 14.0-16.8 (g/dL) Final HCT 04/05/2024 00:24:00 34.2 Below low normal 40.0-48.4 (%) Final MCV 04/05/2024 00:24:00 88.8 82.0-99.5 (fL) Final MCH 04/05/2024 00:24:00 28.6 27.0-34.0 (pg) Final MCHC 04/05/2024 00:24:00 32.2 32.0-36.0 (g/dL) Final RDW 04/05/2024 00:24:00 17.5 11.5-15.5 (%) Final Platelets 04/05/2024 00:24:00 218 140-400 (K/uL) Final MPV 04/05/2024 00:24:00 9.3 6.6-11.1 (fL) Final Nucleated erythrocytes/100 leukocytes [Ratio] in Blood by Automated count 04/05/2024 00:24:00 0 <=0 (/100 WBCs) Final Performing Location [facility] [place] [address] [place] [address]
--- OUTSIDE RECORDS SUMMARY | 2024-04-25 18:01 | External Medical Summary ---
Author Name Unknown Address Unknown Organization : Laboratory Report Ordering Provider Test Date Status HENRY VILLASENOR 04/05/2024 21:26:02 Final Observation Date Value Abnormality Reference (Units ) Status Glucose Point of Care 04/05/2024 21:26:02 393 Above high normal 70-120 (mg/dL) Final Performing Location
--- OUTSIDE RECORDS SUMMARY | 2024-04-25 18:01 | External Medical Summary ---
Author Name Unknown Address Unknown Organization K01:[place] [place] [facility] [address] Laboratory Report Ordering Provider Test Date Status HENRY VILLASENOR 04/04/2024 13:47:51 Final Observation Date Value Abnormality Reference (Units ) Status Sodium, Urine 04/04/2024 13:47:51 <20 (mmol/ L) Final Potassium, Urine 04/04/2024 13:47:51 41.6 (mm ol/L) Final Chloride, Urine 04/04/2024 13:47:51 <20 (mmo l/L) Final Performing Location [facility] [place] [address] [place] [place] [address]
--- OUTSIDE RECORDS SUMMARY | 2024-04-25 18:01 | External Medical Summary | Summary of Care ---
Author Name Unknown Organization [facility] Address [address] [place] [address] Phone [phone] Care Team Providers Care Die Repairer Trimmer Dies Name Role Phone Pedro Luis Bowens DO Primary Care Provider [phone] Reason for Visit * Reason Comments Acute Encounter Details Date Type Department Care Team (Latest Contact Info) Description 04/01/2024 3:00 PM EST Office Visit Family Practice [address] [facility] [address] [place] [id number] Pedro Luis Bowens DO [address] [place] [address] Pneumonia of right upper lobe due to infectious organism*; SOB (shortness of breath); 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); 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); 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); Pancytopenia (HCC); 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, bilateral legs (HCC); Pulmonary hypertension, unspecified (HCC); 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); HTN, goal below 140/90; 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 100 Tab 3 010 Suspended Iron-Vitamin C 65-125 MG Tablet Take 1 Tablet by mouth every other day. Suspended Multiple Vitamin (MULTI-DAY) Tablet Take 1 Tablet by mouth every evening. Suspended Probiotic Product (PROBIOTIC ACIDOPHILUS BIOBEADS) Capsule Take 1 Cap by mouth daily before breakfast. 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 DX: E11.9 1 Kit 021 Suspended Vitamin D3 25 MCG (1000 UT) Oral Capsule Take 1 Capsule by mouth every evening. 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) TAKE ONE TABLET BY MOUTH TWICE A DAY 200 Tablet 3 02/24/20 24 4:58 PM EST 024 2024 Suspended Isosorbide Mononitrate ER 60 MG Oral Tablet Extended Release 24 Hour (Imdur)Indicatio ns:Old myocardial infarction TAKE ONE TABLET BY MOUTH TWICE A DAY 200 Tablet 2 02/21/20 24 7:22 AM EST 024 2024 Suspended Additional Information Patient taking differently: Taking 2 tablets in the morning, Reported on 03/23/2024 Tamsulosin HCl 0.4 MG Oral Capsule (Flomax) TAKE ONE CAPSULE BY MOUTH TWICE A DAY 200 Capsule 2 02/21/20 24 7:22 AM EST 024 2024 Suspended Pantoprazole Sodium 20 MG Oral Tablet Delayed Release (Protonix)Indica tions:Gastroesop hageal reflux disease without esophagitis Take 1 Tablet by mouth in the morning. 100 Tablet 3 02/10/20 24 10:27 AM EST 024 Suspended Clopidogrel Bisulfate 75 MG Oral Tablet (pLAVix)Indicati ons:Old myocardial infarction TAKE ONE TABLET BY MOUTH EVERY DAY 100 Tablet 3 02/21/20 24 7:22 AM EST 024 2024 Suspended Cyanocobalamin [...] 3 01/21/20 24 2:12 PM EDT 024 Suspended Nitroglycerin 0.4 [...] the morning and 1 Tablet before bedtime. Suspended Magic Swizzle (Lidocaine-Benad ryl-Maalox) oral solutionIndicati ons:Oral pain Swish and spit 15 mL in the morning and 15 mL at noon and 15 mL before bedtime. 300 mL Suspended glipiZIDE ER 2.5 MG Oral Tablet Extended Release 24 Hour (glipiZIDE XL)Indications:T ype 2 diabetes mellitus with hemoglobin A1c goal of less than 7.0% (HCC) Take 1 Tablet by mouth in the morning. Before breakfast. 90 Tablet 2 Suspended Lidocaine Viscous HCl 2 % Mouth/Throat Solution Swish and spit 15 mL as needed for Pain, Mild (mouth discomfort). 200 mL 3 024 2024 Discontinue d(Medicatio n List Clean Up) Atenolol 50 MG Oral Tablet (Tenormin)Indica tions:Old myocardial infarction Take 1 Tablet by mouth in the morning. 100 Tablet 3 03/02/20 24 5:18 PM EST Suspended Loperamide HCl 2 [...] hour prior to CT appt 3 Tablet Suspended diphenhydrAMINE HCl 50 MG Oral Capsule [...] into nostril continuous. 1 Each 025 Suspended Hospital, Clinic, or Other Facility Administered Medication Ordered Dose Route Frequency Start Date End Date Status Vitamin B-12 (Cyanocobalamin) inj 1,000 mcgIndications:Vitamin B 12 deficiency 1000 mcg IM [id number] 03/23/2024 12/26/2026 Active documented as of this encounter (statuses as of 04/05/2024) Active Problems Problem Noted Date Diagnosed Date [...] Encounter for antineoplastic chemotherapy 2023 Atherosclerosis of nulato ar teries of extremities with rest pain, bilateral legs 11/08/2023 Pulmonary hypertension, unspecified 07/17/2022 B12 deficiency 03/22/2022 Moderate aortic stenosis 11/28/2021 Occupational exposure to noise 09/27/2020 Coronary artery disease of n ative artery of nulato heart with stable angina pectoris 09/17/2019 Gastroesophageal [...] as of this encounter (statuses as of 04/05/2024) Resolved Problems Problem Noted Date Diagnosed Date [...] Per HTN Protocol #27. [employer] Other*[id number] 09/23/2009 05/01/2016 Overview (09/23/2009): Study Titile: [employer] Mark[employer] for Patients with Cardiovascular Disease Project #[id number] PI: Yovani Marie MD Please call [phone] with study related questions Dyslipidemia, goal LDL below 70 08/30/2009 02/26/2013 HTN, goal below 130/80 08/30/200911/14 Overview: Per HTN Protocol #27. History of drug allergy 08/29/2009 0411/2023 Dyslipidemia, goal LDL below 70 08/23/2009 02/26/2013 ACEI/ARB contraindicated 09/2013 documented as of this encounter (statuses as of 04/05/2024) Immunizations Name Administration Dates Next Due COVID-19 [...] Sign Reading Time Taken Comments Blood Pressure 107/64 04/01/2024 10:42 AM EST Pulse 76 04/01/2024 10:42 AM EST Temperature 37.2 C (98.9 F) 04/01/2024 10:[address] Respiratory Rate 20 04/01/2024 10:42 AM EST Oxygen Saturation 85% 04/01/2024 10:42 AM EST Inhaled Oxygen Concentration - - Weight 67.4 kg (148 lb 8 oz) 04/01/2024 10:42 AM EST Height 167.6 cm (5' 6") 04/01/2024 10:42 AM EST Body Mass Index 23.97 04/01/2024 10:42 AM EST documented in this encounter Progress Notes * Pedro Luis Bowens DO - 04/05/2024 10:10 PM EST SUBJECTIVE: Michael Gutierrez is a 78 year old male. Chief Complaint Patient presents with Acute HPI: Patient is a 78 year old of male with a history of Pancreatic Cancer, Liver Metastasis, CAD, CABG, multiple coronary artery stents, DM type II, HTN, BPH, Hyperlipidemia, B-12 Deficiency, and GERD that is seen for illness. The patient has low BP, fatigue, shortness of breath and dizziness for 2-3 days. Chemotherapy is on hold for [address] chest / abdomen / pelvis is scheduled on 04/17/2024 to assess Pancreatic Cancer. Biliary duct stent change scheduled 04/21/2024. 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) Gastroesophageal reflux disease without esophagitis Occupational exposure to noise Moderate aortic stenosis B12 deficiency Pulmonary hypertension, unspecified (HCC) 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 No current outpatient medications on file. Facility-Administered Medications Ordered in Other Visits Medication Dose Route Frequency Provider Last Rate Last Admin sodium chloride 0.9 % flush peripheral radha 3 mL 3 mL IV Push Q8H Ann Jay PA-C 3 mL at 04/05/24 1400 glucose chew tab 16 g 16 g Oral PRN Ann Jay PA-C Glucose (Glutose 15) 40 % gel 15 g of glucose 15 g of glucose Oral PRN Ann Jay PA-C Glucose (Glutose 15) 40 % gel 30 g of glucose 30 g of glucose Oral PRN Ann Jay PA-C dextrose 50% inj 25 mL 25 mL IV Push PRN Ann Jay PA-C dextrose 50% inj 50 mL 50 mL IV Push PRN Ann Jay PA-C glucagon (Glucagen) inj 1 mg 1 mg Intramuscular PRN Ann Jay PA-C Piperacillin-Tazobactam (Zosyn) 4.5 g in 100 mL NSS ivpb (FOUR hour infusion) 4.5 g IV Piggyback Q8H Ann Jay PA-C 26.25 mL/hr at 04/05/24 2140 4.5 g at 04/05/24 2140 oxygen GAS Inhalation Oxygen Ann Jay PA-C Oxygen On at 04/05/24 1600 insulin aspart (NovoLOG) inj Subcutaneous With Meals and HS Ann Jay PA- C 8 Units at 04/05/24 214 aspirin chew tab 81 mg 81 mg Oral HS Ann Jay PA-C 81 mg at 04/05/24 214 tamsulosin (Flomax) cap 0.4 mg 0.4 mg Oral BID(AM/PM) Ann Jay PA-C 0.4 mg at 04/05/24 214 omeprazole (PriLOSEC) cap 20 mg 20 mg Oral Daily(AM) Ann Jay PA-C 20 mg at 04/05/24 1000 polyvinyl alcohol-povidone PF (Refresh) ophthalmic solution 1 Drop 1 Drop Both eyes BID PRN Jesse Stinson MD Ibuprofen (Motrin) tab 400 mg 400 mg Oral Q4H PRN Jesse Stinson MD 400 mg at 04/04/24 1820 Enoxaparin (Lovenox) inj 70 mg 1 mg/kg Subcutaneous Q12H Jesse Stinson MD 70 mg at 04/05/242144 The patient's medication list was reviewed and [...] performed by Michael Armenta MD at [facility]COPY [facility] CORONARY ARTERY DILATION, BALLOON 08/29/2009 PTCA, SINGLE VESSEL performed by YOVANI MARIE at [facility] [place]GD, FLEXIBLE, DIAGNOSTIC 10/12/2019 normal / ESOPHAGOGASTRODUODENOSCOPY (EGD), FLEXIBLE, TRANSORAL, DIAGNOSTIC performed by Michael Armenta MD at [facility] EGD, W/ENDOSCOPIC US N/A 01/16/2024 mass pancreatic head/multiple metastatic lesion liver/biopsies show adenocarcinoma pancreas mets marco/ESOPHAGOGASTRODUODENOSCOPY (EGD), FLEXIBLE, TRANSORAL, ENDOSCOPIC ULTRASOUND performed by Jose E Bai MD at [facility]COPY [facility] ERCP, DIAGNOSTIC, SPECIMEN COLLECTION N/A 01/16/2024 single severe malignant appearing biliary stricture/one plastic biliary stent placed CBD/repeat 3 months/ENDOSCOPIC RETROGRADE CHOLANGIOPANCREATOGRAPHY (ERCP) DIAGNOSTIC performed by Jose E Bai MD at [facility]OSCOPY [facility] REMOVE CATARACT, INSERT LENS PROSTH Bilateral Review of patient's allergies indicates: Allergen Reactions Iodinated Contrast Media Rash Pt got a rash after his cath on 08/23/09 Levofloxacin Nausea jittery Lisinopril Cough Rash Review of Systems Constitutional: Positive for appetite change, chills and fatigue. Negative for fever. HENT: Negative for congestion, sore throat and trouble swallowing. Respiratory: Positive for shortness of breath. Negative for cough and wheezing. Gastrointestinal: Negative for abdominal pain, blood in stool, constipation, diarrhea, nausea and vomiting. Genitourinary: Negative for dysuria, frequency and hematuria. Musculoskeletal: Positive for gait problem. Negative for back pain. Neurological: Positive for dizziness, weakness and light-headedness. Negative for syncope and headaches. Psychiatric/Behavioral: Negative for confusion and decreased concentration. OBJECTIVE: BP 107/64 | Pulse 76 | Temp 98.9 F (37.2 C) | Resp 20 | Ht 5' 6" (1.676 m) | Wt 148 lb 8 oz (67.4 kg) | SpO2 85% | BMI 23.97 kg/m | BSA 1.77 m Physical Exam Vitals and nursing note reviewed. Constitutional: General: He is not in acute distress. Appearance: He is ill-appearing. He is not toxic-appearing. Comments: Frail HENT: Head: Normocephalic and atraumatic. Cardiovascular: Rate [...] soft. Tenderness: There is no abdominal tenderness. Neurological: Mental Status: He is alert. Mental status is at baseline. Motor: Weakness present. Gait: Gait abnormal. Psychiatric: Mood and Affect: Mood normal. Behavior: Behavior normal. Thought Content: Thought content normal. CXR: RUL infiltrate PLAN AND ASSESSMENT: Pneumonia of right upper lobe due to infectious organism (Primary) Patient hypoxic, with decreased BP. Repeat called to [facility] ED Patient sent emergently from office to ED SOB (shortness of breath) - PULSE OX W/ REST/EXERCISE, MULTIPLE (OP) - oxygen IN GAS; Administer 2 L/min(Oxygen) into nostril continuous. 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 Pedro Luis Bowens DO 10:10 PM 04/05/2024 documented in this encounter Nursing Notes * Consuelo Ornelas LPN - 04/01/2024 10:42 AM EST Sob, edema documented in this encounter Plan of Treatment Upcoming Encounters Date Type Department Care Team (Late st Contact Info) Description 04/17/2024 9:30 AM EST Laboratory Laboratory, [facility] [address] [place] [phone] [facility] [address] [facility] [place] [address] 04/17/2024 10:00 AM EST Imaging Radiology [facility] [address] [place] [phone] 04/28/2024 9:30 AM EST Office Visit Hematology/Oncology [facility] [address] [place] [phone] Marimar Del Castillo MD [address] [place] [address] Scheduled Orders Name Type Priority Associated Diagnoses Orde r Schedule PULSE OX W/ REST/EXERCISE, MULTIPLE (OP) Procedures Routine SOB (shortness of breath) Ordered: 04/01/2024 Scheduled Procedures Name Priority Associated Diagnoses Date/Ti [...] this encounter Medical Devices Implanted Type Area Associate Art Director Device Identifier Shelf Expiration Date Model / Serial / Lot Stent Bili Duodenal [id number] - [id number] Implanted:Qty : 1 on 01/16/2024 by Jose E Bai MD at ENDOSCOPY [facility] N/A: Stomach [employer] 12/02/2025 [id number] / / [id number] Stent Viabil Biliary [id number] - [id number] Implanted:Qty : 1 on 04/02/2024 by Mars Anna DO at [facility] [place] [employer] [id number] 01/15/2027 [id number] / [id number] / [id number] documented as of this encounter Visit Diagnoses Diagnosis Pneumonia of right upper lobe due to infectious organism- Primary SOB (shortness of breath) Shortness of breath 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) Malignant neoplasm of 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) Pancytopenia (HCC) Other pancytopenia 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, bilateral legs (HCC) Pulmonary hypertension, unspecified (HCC) 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) Type II or unspecified type diabetes mellitus with peripheral circulatory disorders, not stated as uncontrolled HTN, goal below 140/90 Unspecified essential hypertension 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 Postsurgical aortocoronary bypass status B12 deficiency Other B-complex deficiencies Benign prostatic hyperplasia without lower urinary tract symptoms Gastroesophageal reflux disease without esophagitis Esophageal reflux Moderate aortic stenosis Aortic valve disorders Pure hypercholesterolemia documented in this encounter Advance Directives * [...] Care Agent (per Health Care Power of Frame Coverer document) Care Teams Die Repairer Trimmer Dies Relationship Specialty Start Date End Date Pedro Luis Bowens DO [address] [place] [address] PCP - General Internal Medicine 09/09/23 documented as of this encounter
--- OUTSIDE RECORDS SUMMARY | 2024-04-25 18:01 | External Medical Summary ---
Author Name Unknown Address Unknown Organization [id number]:[facility] [place] [address] [place] [address] Laboratory Report Ordering Provider Test Date Status RICHARD SCHMITZ 04/04/2024 07:30:00 Final Observation Date Value Abnormality Reference (Units ) Status MYCODE SPECIMEN-SST 04/04/2024 07:30:00 Freezing of extracted DNA, whole blood and/or serum. Final Performing Location LABORATORY C - [address] [place] [address]
--- OUTSIDE RECORDS SUMMARY | 2024-04-25 18:01 | External Medical Summary ---
Author Name Unknown Address Unknown Organization [id number]:[facility] [place] [address] [facility] [address] Laboratory Report Ordering Provider Test Date Status SAIRA VELAZQUEZ 04/05/2024 00:24:00 Final Observation Date Value Abnormality Reference (Units ) Status BUN 04/05/2024 00:24:00 28 Above high normal 6-20 (mg/dL) Final Creatinine 04/05/2024 00:24:00 1.2 0.6-1.2 (mg/dL) Final Glomerular filtration rate/1.73 sq M.predicted [Volume Rate/Area] in Serum, Plasma or Blood by Creatinine-based formula (CKD-EPI) 04/05/2024 00:24:00 63 >=60 (mL/min) Final eGFR is calculated based on the CKD-EPI 2020 equation. Sodium 04/05/2024 00:24:00 129 Below low normal 135 -146 (mmol/L) Final Potassium 04/05/2024 00:24:00 3.5 3.5-5.1 (m mol/L) Final Cl 04/05/2024 00:24:00 97 Below low normal 98- 107 (mmol/L) Final CO2 04/05/2024 00:24:00 18 Below low normal 22- 32 (mmol/L) Final Anion gap 04/05/2024 00:24:00 14 7-15 (mmol /L) Final Glucose 04/05/2024 00:24:00 115 70-120 (mg /dL) Final Calcium 04/05/2024 00:24:00 9.1 8.4-10.2 ( mg/dL) Final Performing Location [facility] [place] [address] [place] [address]
--- OUTSIDE RECORDS SUMMARY | 2024-04-25 18:01 | External Medical Summary ---
Author Name Unknown Address Unknown Organization K01:[facility] [place] [facility] [address] [facility] [address] Laboratory Report Ordering Provider Test Date Status SAIRA VELAZQUEZ 04/04/2024 07:30:00 Final Observation Date Value Abnormality Reference (Units ) Status WBC, Total 04/04/2024 07:30:00 16.84 Above high normal 4.00-10.80 (K/uL) Final RBC 04/04/2024 07:30:00 3.64 4.50-5.25 (M/uL) Final Hemoglobin 04/04/2024 07:30:00 10.4 Below low normal 14.0-16.8 (g/dL) Final HCT 04/04/2024 07:30:00 31.9 Below low normal 40.0-48.4 (%) Final MCV 04/04/2024 07:30:00 87.6 82.0-99.5 (fL) Final MCH 04/04/2024 07:30:00 28.6 27.0-34.0 (pg) Final MCHC 04/04/2024 07:30:00 32.6 32.0-36.0 (g/dL) Final RDW 04/04/2024 07:30:00 17.8 11.5-15.5 (%) Final Platelets 04/04/2024 07:30:00 289 140-400 (K/uL) Final MPV 04/04/2024 07:30:00 9.6 6.6-11.1 (fL) Final Nucleated erythrocytes/100 leukocytes [Ratio] in Blood by Automated count 04/04/2024 07:30:00 0 <=0 (/100 WBCs) Final Performing Location [facility] [place] [address] [place] [address]
--- OUTSIDE RECORDS SUMMARY | 2024-04-25 18:01 | External Medical Summary ---
Author Name Unknown Address Unknown Organization : Laboratory Report Ordering Provider Test Date Status HENRY VILLASENOR 04/04/2024 07:23:57 Final Observation Date Value Abnormality Reference (Units ) Status Glucose Point of Care 04/04/2024 07:23:57 228 Above high normal 70-120 (mg/dL) Final Performing Location
--- OUTSIDE RECORDS SUMMARY | 2024-04-25 18:01 | External Medical Summary ---
Author Name Unknown Address Unknown Organization : Laboratory Report Ordering Provider Test Date Status HENRY VILLASENOR 04/06/2024 01:27:58 Final Observation Date Value Abnormality Reference (Units ) Status Glucose Point of Care 04/06/2024 01:27:58 311 Above high normal 70-120 (mg/dL) Final Performing Location
--- OUTSIDE RECORDS SUMMARY | 2024-04-25 18:01 | External Medical Summary ---
Author Name Unknown Address Unknown Organization K01:LAB[facility]ORY [facility] - [address] [place] [address] Laboratory Report Ordering Provider Test Date Status SAIRA VELAZQUEZ 04/04/2024 07:30:00 Final Observation Date Value Abnormality Reference (Units ) Status Albumin 04/04/2024 07:30:00 2.3 Below low normal 3.8-5.0 (g/dL) Final AST (Aspartate aminotransferase) 04/04/2024 07:30:00 60 Above high normal 10-50 (U/L) Final Alk Phos 04/04/2024 07:30:00 577 Above high normal 35-130 (U/L) Final ALT (Alanine aminotransferase) 04/04/2024 07:30:00 53 Above high normal 10-50 (U/L) Final Bilirubin, Total 04/04/2024 07:30:00 1.1 <=1.2 (mg/dL) Final Bilirubin, Direct 04/04/2024 07:30:00 0.9 Above high normal 0.0-0.3 (mg/dL) Final Protein 04/04/2024 07:30:00 5.3 Below low normal 6.0-8.3 (g/dL) Final Performing Location LABORATORY [facility] - [address] [place] [address]
--- OUTSIDE RECORDS SUMMARY | 2024-04-25 18:01 | External Medical Summary | Summary of Care ---
Author Name Unknown Organization [facility] Address [address] [place] [address] Phone [phone] Care Team Providers Care Kiln Packer Name Role Phone Pedro Luis Bowens DO Primary Care Provider [phone] Reason for Visit * Auth/Cert Specialty Diagnoses / Procedures Referred By Heather sood Referred To Contact Diagnoses Acute Cholecystitis Valdez Starr DO [address] [place] [address] Phone: tel: fax: [facility] [place] [address] [place] [address] Referral ID Status Reason Start Date Expiration Date Visits Re quested Visits Authorized [id number] Encounter Details Date Type Department Care Team (Latest Contact Info) Description 04/03/2024 12:10 PM EST - 04/03/2024 11:59 PM EST Hospital Encounter Cardiac Studies [facility] for [place] [address] [place] [address] Discharge Disposition: Home - Self Care Allergies Active Allergy Reactions Criticality Noted Date Comments Iodinated Contrast Media Rash 08/29/2009 Pt got a rash after his cath on 08/23/09 Levofloxacin 11/03/2009 Nausea jittery Lisinopril 10/01/2013 Cough Rash documented as of this encounter (statuses as of 04/04/2024) Medications ASPIRIN 81 MG PO CHEW Take [...] Release 12 HourIndications: Coronary artery disease of [place] artery of [place] heart with stable angina pectoris (HCC) TAKE [...] morning. Before breakfast. 90 Tablet 2 Suspended Atenolol 50 MG Oral Tablet (Tenormin)Indica [...] hour prior to CT appt 1 Capsule Suspended Furosemide 40 MG Oral Tablet (Lasix)Indicatio ns:Anasarca,Bila teral leg edema One tablet daily 30 Tablet 6 024 Suspended Potassium Chloride ER 10 MEQ Oral Capsule Extended ReleaseIndicatio ns:Bilateral leg edema Take 1 Capsule by mouth in the morning. 30 Capsule 5 Suspended oxygen IN GASIndications:S OB (shortness of breath) Administer 2 L/min(Oxygen) into nostril continuous. 1 Each 025 Suspended documented as of this encounter (statuses as of 04/04/2024) Active Problems Problem Noted Date Diagnosed Date Acute cholecystitis 04/02/2024 Sepsis without acute organ dysfunction 5 Goals of care, counseling/discussion 04/02/2024 Palliative care encounter 04/02/2024 Pancytopenia 04/01/2024 Secondary malignant neoplasm of liver and intrahepatic bile duct 02/17/2024 Malignant neoplasm of head of pancreas Metastasis from pancreatic cancer 01/28/2024 Encounter for antineoplastic chemotherapy 2023 Atherosclerosis of [place] ar teries of extremities with rest pain, bilateral legs 11/08/2023 Pulmonary hypertension, unspecified 07/17/2022 B12 deficiency 03/22/2022 Moderate aortic stenosis 11/28/2021 Occupational exposure to noise 09/27/2020 Coronary artery disease of [place] artery of [place] heart with stable angina pectoris 09/17/2019 Gastroesophageal [...] as of this encounter (statuses as of 04/04/2024) Resolved Problems Problem Noted Date Diagnosed Date [...] Per HTN Protocol #27. [employer] Other*[id number] 09/23/2009 05/01/2016 Overview (09/23/2009): Study Titile: Genomic Markers for Patients with Cardiovascular Disease Project #[id number] PI: Estela Sandoval MD Please call [phone] with study related questions Dyslipidemia, goal LDL below 70 08/30/2009 02/26/2013 HTN, goal below 130/80 08/30/200911/14 Overview: Per HTN Protocol #27. History of drug allergy 08/29/200906/23 Dyslipidemia, goal LDL below 70 08/23/2009 02/26/2013 ACEI/ARB contraindicated 09/2013 documented as of this encounter (statuses as of 04/04/2024) Immunizations Name Administration Dates Next Due COVID-19 [...] Team (Late st Contact Info) Description 04/06/2024 9:20 AM EST Office Visit Family Practice [address], [place] [address] [place] [address] Pedro Luis Bowens, DO [address] [place] [address] 04/17/2024 9:30 AM EST Laboratory Laboratory, [facility] [address] [facility] [place] [id number] [facility] [address] [facility] [place] [address] 04/17/2024 10:00 AM EST Imaging Radiology [address] [facility] [place] [id number] 04/28/2024 9:30 AM EST Office Visit Hematology/Oncology [facility] [address] [facility] [place], [place] [address] Marimar Del Castillo MD [address] [facility] [place] [address] Scheduled Procedures Name Priority Associated Diagnoses Date/Ti [...] this encounter Medical Devices Implanted Type Area Quilt Stuffer Device Identifier Shelf Expiration Date Model / Serial / Lot Stent Bili Duodenal [id number] - [id number] Implanted:Qty : 1 on 01/16/2024 by Jose E Bai MD at ENDOSCOPY [facility] N/A: [employer] 12/02/2025 [id number] / / [id number] Stent Viabil Biliary [id number] - [id number] Implanted:Qty : 1 on 04/02/2024 by Mars Anna DO at [facility] [employer] JULIO CESAR [id number] 01/15/2027 [id number] / [id number] / [id number] documented as of this encounter Procedures Procedure Name Priority Date/Time Associated Diagnosis Comments ECHO, COMPLETE (2D), TRANS-THORACIC Routine 04/03/2024 3:02 PM EST Bacteremia documented in this encounter Results * ECHO, COMPLETE (2D), TRANS-THORACIC (04/03/2024 3:02 PM EST) LEFT VENTRICULAR EJECTION FRACTION 40 % [facility] 04/03/2024 2:30 PM EST Ann Jay PA-C ECHOCARDIOLOGY Final Result [facility] documented in this encounter Advance Directives * [...] Care Agent (per Health Care Power of Lathe Setup Operator document) Care Teams Kiln Packer Relationship Specialty Start Date End Date Pedro Luis Bowens DO [address] [place] [address], [place] [address] PCP - General Internal Medicine 09/09/23 documented as of this encounter
--- OUTSIDE RECORDS SUMMARY | 2024-04-25 18:01 | External Medical Summary ---
Author Name Unknown Address Unknown Organization K01:[place] [facility] [place] [address] [facility] [address] Laboratory Report Ordering Provider Test Date Status SAIRA VELAZQUEZ 04/05/2024 00:24:00 Final Observation Date Value Abnormality Reference (Units ) Status Body temperature 04/05/2024 00:24:00 37.0 (C) Final pH of Venous blood 04/05/2024 00:24:00 7.301 Below low normal 7.320-7.430 (units) Final Carbon dioxide [Partial pressure] in Venous blood 04/05/2024 00:24:00 44.4 40.0-60.0 (mmHg) Final Oxygen [Partial pressure] in Venous blood 04/05/2024 00:24:00 18.7 Below low normal 25.0-50.0 (mmHg) Final Base excess, Capillary 04/05/2024 00:24:00 -4.6 Below low normal -2.0-2.0 (mmol/L) Final Hemoglobin [Mass/volume] in Blood by Oximetry 04/05/2024 00:24:00 11.7 Below low normal 14.0-16.8 (g/dL) Final Oxyhemoglobin, Venous (FO2HB) 04/05/2024 00:24:00 18.5 Below low normal 40.0-85.0 (% total Hgb) Final Carboxyhemoglobin 04/05/2024 00:24:00 0.5 <=1.5 (% total Hgb) Final Smokers: 0-9.0 % Methemoglobin 04/05/2024 00:24:00 0.7 <= 1.5 (% total Hgb) Final Deoxyhemoglobin/Hemoglo bin.total in Venous blood 04/05/2024 00:24:00 80.3 (% total Hgb) Final Oxygen content in Venous blood 04/05/2024 00:24:00 3.1 Below low normal 7.0-18.0 (%vol) F inal Bicarbonate, Venous, POC (i-STAT) 04/05/2024 00:24:00 21.2 Below low normal 23.0-31.0 (mmol/L) Final Performing Location [facility] [facility] [place] [facility] [address] [facility] [address]
--- OUTSIDE RECORDS SUMMARY | 2024-04-25 18:01 | External Medical Summary ---
Author Name Unknown Address Unknown Organization K01[place] [facility] [place] [address] [facility] [place] [address] Laboratory Report Ordering Provider Test Date Status SAIRA VELAZQUEZ 04/05/2024 00:24:00 Final Observation Date Value Abnormality Reference (Units ) Status Lactic Acid 04/05/2024 00:24:00 4.7 Above upper panic limits 0.4-2.0 (mmol/L) Final Performing Location [facility] - [address] [place] [address]
--- OUTSIDE RECORDS SUMMARY | 2024-04-25 18:01 | External Medical Summary ---
Author Name Unknown Address Unknown Organization K01:[facility] [place] [address] [place] [address] Laboratory Report Ordering Provider Test Date Status SAIRA VELAZQUEZ 04/04/2024 07:30:00 Final Observation Date Value Abnormality Reference (Units ) Status BUN 04/04/2024 07:30:00 25 Above high normal 6-20 (mg/dL) Final Creatinine 04/04/2024 07:30:00 0.9 0.6-1.2 (mg/dL) Final Glomerular filtration rate/1.73 sq M.predicted [Volume Rate/Area] in Serum, Plasma or Blood by Creatinine-based formula (CKD-EPI) 04/04/2024 07:30:00 82 >=60 (mL/min) Final eGFR is calculated based on the CKD-EPI 2020 equation. Sodium 04/04/2024 07:30:00 129 Below low normal 135 -146 (mmol/L) Final Potassium 04/04/2024 07:30:00 3.8 3.5-5.1 (m mol/L) Final Cl 04/04/2024 07:30:00 99 98-107 (mm ol/L) Final CO2 04/04/2024 07:30:00 22 22-32 (mmo l/L) Final Anion gap 04/04/2024 07:30:00 8 7-15 (mmol /L) Final Glucose 04/04/2024 07:30:00 225 Above high normal 70 -120 (mg/dL) Final Calcium 04/04/2024 07:30:00 8.8 8.4-10.2 ( mg/dL) Final Performing Location [facility] [place] - [address] [place] [address]
--- OUTSIDE RECORDS SUMMARY | 2024-04-25 18:01 | External Medical Summary ---
Author Name Unknown Address Unknown Organization K01:[facility] [place] - [address] [facility] [place] [address] Laboratory Report Ordering Provider Test Date Status SAIRA VELAZQUEZ 04/05/2024 03:16:00 Final Observation Date Value Abnormality Reference (Units ) Status BUN 04/05/2024 03:16:00 28 Above high normal 6-20 (mg/dL) Final Creatinine 04/05/2024 03:16:00 1.1 0.6-1.2 (mg/dL) Final Glomerular filtration rate/1.73 sq M.predicted [Volume Rate/Area] in Serum, Plasma or Blood by Creatinine-based formula (CKD-EPI) 04/05/2024 03:16:00 67 >=60 (mL/min) Final eGFR is calculated based on the CKD-EPI 2020 equation. Sodium 04/05/2024 03:16:00 130 Below low normal 135 -146 (mmol/L) Final Potassium 04/05/2024 03:16:00 3.1 Below low normal 3.5 -5.1 (mmol/L) Final Cl 04/05/2024 03:16:00 99 98-107 (mm ol/L) Final CO2 04/05/2024 03:16:00 18 Below low normal 22- 32 (mmol/L) Final Anion gap 04/05/2024 03:16:00 13 7-15 (mmol /L) Final Glucose 04/05/2024 03:16:00 114 70-120 (mg /dL) Final Calcium 04/05/2024 03:16:00 8.6 8.4-10.2 ( mg/dL) Final Performing Location [facility]ORY [facility] [place] - [address] [place] [address]
--- OUTSIDE RECORDS SUMMARY | 2024-04-25 18:01 | External Medical Summary ---
Author Name Unknown Address Unknown Organization : Laboratory Report Ordering Provider Test Date Status HENRY VILLASENOR 04/05/2024 22:48:56 Final Observation Date Value Abnormality Reference (Units ) Status Glucose Point of Care 04/05/2024 22:48:56 413 Above high normal 70-120 (mg/dL) Final Performing Location
--- OUTSIDE RECORDS SUMMARY | 2024-04-25 18:01 | External Medical Summary ---
Author Name Unknown Address Unknown Organization K01:[facility]ORY [facility] [place] [address] [facility] [place] [address] Laboratory Report Ordering Provider Test Date Status SAIRA VELAZQUEZ 04/05/2024 03:15:00 Final Observation Date Value Abnormality Reference (Units ) Status Lactic Acid 04/05/2024 03:15:00 2.5 Above high normal 0.4-2.0 (mmol/L) Final Performing Location LAB[facility]ORY [facility] [place] [address] [place] [address]
--- OUTSIDE RECORDS SUMMARY | 2024-04-25 18:01 | External Medical Summary ---
Author Name Unknown Address Unknown Organization K01:[place] [facility] [place] [address] [place] [address] Laboratory Report Ordering Provider Test Date Status SAIRA VELAZQUEZ 04/05/2024 00:24:00 Final Observation Date Value Abnormality Reference (Units ) Status Albumin 04/05/2024 00:24:00 2.5 Below low normal 3.8-5.0 (g/dL) Final AST (Aspartate aminotransferase) 04/05/2024 00:24:00 79 Above high normal 10-50 (U/L) Final Alk Phos 04/05/2024 00:24:00 854 Above high normal 35-130 (U/L) Final ALT (Alanine aminotransferase) 04/05/2024 00:24:00 66 Above high normal 10-50 (U/L) Final Bilirubin, Total 04/05/2024 00:24:00 1.3 Above high normal <=1.2 (mg/dL) Final Bilirubin, Direct 04/05/2024 00:24:00 1.0 Above high normal 0.0-0.3 (mg/dL) Final Protein 04/05/2024 00:24:00 5.8 Below low normal 6.0-8.3 (g/dL) Final Performing Location [facility] [place] [address] [place] [address]
--- OUTSIDE RECORDS SUMMARY | 2024-04-25 18:01 | External Medical Summary ---
Author Name Unknown Address Unknown Organization K01:[facility]ORY [facility] [place] [address] [place] [address] Laboratory Report Ordering Provider Test Date Status HENRY VILLASENOR 04/05/2024 13:41:00 Final Observation Date Value Abnormality Reference (Units ) Status Lactic Acid 04/05/2024 13:41:00 1.9 0.4-2.0 (mmol/L) Final Performing Location [facility] - [address] [place] [address]
--- OUTSIDE RECORDS SUMMARY | 2024-04-25 18:01 | External Medical Summary ---
Author Name Unknown Address Unknown Organization : Laboratory Report Ordering Provider Test Date Status HENRY VILLASENOR 04/04/2024 21:56:51 Final Observation Date Value Abnormality Reference (Units ) Status Glucose Point of Care 04/04/2024 21:56:51 156 Above high normal 70-120 (mg/dL) Final Performing Location
--- OUTSIDE RECORDS SUMMARY | 2024-04-25 18:01 | External Medical Summary ---
Author Name Unknown Address Unknown Organization K01:[facility]ATORY [facility] [place] - [address] [place] [address] Laboratory Report Ordering Provider Test Date Status RICHARD SCHMITZ 04/04/2024 07:30:00 Final Observation Date Value Abnormality Reference (Units ) Status MYCODE SPECIMEN-SST 04/04/2024 07:30:00 Freezing of extracted DNA, whole blood and/or serum. Final Performing Location LABORATORY [facility] - [address] [place] [address]
--- OUTSIDE RECORDS SUMMARY | 2024-04-25 18:01 | External Medical Summary ---
Author Name Unknown Address Unknown Organization K01:[place] [facility] [place] [address] [place] [address] Laboratory Report Ordering Provider Test Date Status SAIRA VELAZQUEZ 04/05/2024 03:15:00 Final Observation Date Value Abnormality Reference (Units ) Status WBC, Total 04/05/2024 03:15:00 13.38 Above high normal 4.00-10.80 (K/uL) Final RBC 04/05/2024 03:15:00 3.12 4.50-5.25 (M/uL) Final Hemoglobin 04/05/2024 03:15:00 8.9 Below low normal 14.0-16.8 (g/dL) Final HCT 04/05/2024 03:15:00 27.4 Below low normal 40.0-48.4 (%) Final MCV 04/05/2024 03:15:00 87.8 82.0-99.5 (fL) Final MCH 04/05/2024 03:15:00 28.5 27.0-34.0 (pg) Final MCHC 04/05/2024 03:15:00 32.5 32.0-36.0 (g/dL) Final RDW 04/05/2024 03:15:00 17.4 11.5-15.5 (%) Final Platelets 04/05/2024 03:15:00 174 140-400 (K/uL) Final MPV 04/05/2024 03:15:00 9.7 6.6-11.1 (fL) Final Nucleated erythrocytes/100 leukocytes [Ratio] in Blood by Automated count 04/05/2024 03:15:00 0 <=0 (/100 WBCs) Final Performing Location [place] [facility] [place] [address] [place] [address]
--- OUTSIDE RECORDS SUMMARY | 2024-04-25 18:01 | External Medical Summary ---
Author Name Unknown Address Unknown Organization : Laboratory Report Ordering Provider Test Date Status HENRY VILLASENOR 04/05/2024 16:12:54 Final Observation Date Value Abnormality Reference (Units ) Status Glucose Point of Care 04/05/2024 16:12:54 305 Above high normal 70-120 (mg/dL) Final Performing Location
--- OUTSIDE RECORDS SUMMARY | 2024-04-25 18:01 | External Medical Summary ---
Author Name Unknown Address Unknown Organization : Laboratory Report Ordering Provider Test Date Status HENRY VILLASENOR 04/03/2024 21:55:59 Final Observation Date Value Abnormality Reference (Units ) Status Glucose Point of Care 04/03/2024 21:55:59 254 Above high normal 70-120 (mg/dL) Final Performing Location
--- OUTSIDE RECORDS SUMMARY | 2024-04-25 18:01 | External Medical Summary ---
Author Name Unknown Address Unknown Organization K01:[place]ORY [facility] [place] [address] [facility] [address] Laboratory Report Ordering Provider Test Date Status RICHARD SCHMITZ 04/04/2024 07:30:00 Final Observation Date Value Abnormality Reference (Units ) Status Proton TherapyODE SPECIMEN-LAV 04/04/2024 07:30:00 Freezing of extracted DNA, whole blood and/or serum. Final Performing Location LAB[facility]ATORY [facility] - [address] [facility] [address]
--- OUTSIDE RECORDS SUMMARY | 2024-04-25 18:01 | External Medical Summary ---
Author Name Unknown Address Unknown Organization : Laboratory Report Ordering Provider Test Date Status HENRY VILLASENOR 04/05/2024 11:20:55 Final Observation Date Value Abnormality Reference (Units ) Status Glucose Point of Care 04/05/2024 11:20:55 262 Above high normal 70-120 (mg/dL) Final Performing Location
--- OUTSIDE RECORDS SUMMARY | 2024-04-25 18:01 | External Medical Summary ---
Author Name Unknown Address Unknown Organization : Laboratory Report Ordering Provider Test Date Status HENRY VILLASENOR 04/05/2024 06:06:29 Final Observation Date Value Abnormality Reference (Units ) Status Glucose Point of Care 04/05/2024 06:06:29 147 Above high normal 70-120 (mg/dL) Final Performing Location
--- OUTSIDE RECORDS SUMMARY | 2024-04-25 18:01 | External Medical Summary ---
Author Name Unknown Address Unknown Organization : Laboratory Report Ordering Provider Test Date Status HENRY VILLASENOR 04/04/2024 16:45:42 Final Observation Date Value Abnormality Reference (Units ) Status Glucose Point of Care 04/04/2024 16:45:42 229 Above high normal 70-120 (mg/dL) Final Performing Location
--- OUTSIDE RECORDS SUMMARY | 2024-04-25 18:01 | External Medical Summary ---
Author Name Unknown Address Unknown Organization K01:[place] [facility] [place] [address] [place] [address] Laboratory Report Ordering Provider Test Date Status SAIRA VELAZQUEZ 04/05/2024 03:16:00 Final Observation Date Value Abnormality Reference (Units ) Status Albumin 04/05/2024 03:16:00 2.5 Below low normal 3.8-5.0 (g/dL) Final AST (Aspartate aminotransferase) 04/05/2024 03:16:00 59 Above high normal 10-50 (U/L) Final Alk Phos 04/05/2024 03:16:00 592 Above high normal 35-130 (U/L) Final ALT (Alanine aminotransferase) 04/05/2024 03:16:00 48 10-50 (U/L) Final Bilirubin, Total 04/05/2024 03:16:00 1.2 <=1.2 (mg/dL) Final Bilirubin, Direct 04/05/2024 03:16:00 0.9 Above high normal 0.0-0.3 (mg/dL) Final Protein 04/05/2024 03:16:00 4.8 Below low normal 6.0-8.3 (g/dL) Final Performing Location [place] [facility] [place] [address] [place] [address]
--- OUTSIDE RECORDS SUMMARY | 2024-04-25 18:02 | External Medical Summary ---
Author Name Unknown Address Unknown Organization : Laboratory Report Ordering Provider Test Date Status HENRY VILLASENOR 04/03/2024 16:27:14 Final Observation Date Value Abnormality Reference (Units ) Status Glucose Point of Care 04/03/2024 16:27:14 198 Above high normal 70-120 (mg/dL) Final Performing Location
--- OUTSIDE RECORDS SUMMARY | 2024-04-25 18:02 | External Medical Summary | Summary of Care ---
Author Name Unknown Organization [facility] Address [address] [place] [address] Phone [phone] Care Team Providers Care Salt Cutter Name Role Phone Pedro Luis Bowens DO Primary Care Provider [phone] Reason for Visit * Reason Comments Retrieval * Auth/Cert Specialty Diagnoses / Procedures Referred By Contac t [facility] [address] [place] [address] Referral ID Status Reason Start Date Expiration Date Visits Re quested Visits Authorized [id number] Encounter Details Date Type Department Care Team (Late st Contact Info) Description 04/01/2024 10:35 PM EST Documentation [facility] [address] [place] [address] 2, [facility] [address] [place], [place] [id number] Pneumonia of right upper lobe due to infectious organism*; Cholecystitis; Primary pancreatic cancer with metastasis to other site (HCC) Allergies Active Allergy Reactions Criticality Noted Date Comments Iodinated Contrast Media Rash 08/29/2009 Pt got a rash after his cath on 08/23/09 Levofloxacin 11/03/2009 Nausea jittery Lisinopril 10/01/2013 Cough Rash documented as of this encounter (statuses as of 04/03/2024) Medications ASPIRIN 81 MG PO CHEW Take 1 Tablet by mouth at bedtime. 100 Tab 3 010 Suspended Iron-Vitamin C 65-125 MG Tablet Take 1 Tablet by mouth every other day. Suspended Multiple Vitamin (MULTI-DAY) Tablet Take 1 Tablet by mouth every evening. Suspended Probiotic Product (PROBIOTIC ACIDOPHILUS BIOBEADS) Capsule Take 1 Cap by mouth daily before breakfast. 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 DX: E11.9 1 Kit 021 Suspended Vitamin D3 25 MCG (1000 UT) Oral Capsule Take 1 Capsule by mouth every evening. Suspended Ranolazine ER 1000 MG Oral Tablet Extended Release 12 HourIndications: Coronary artery disease of [place] artery of [place] heart with stable angina pectoris (HCC) TAKE [...] as of this encounter (statuses as of 04/03/2024) Active Problems Problem Noted Date Diagnosed Date Acute cholecystitis 04/02/2024 Sepsis without acute organ dysfunction 5 Goals of care, counseling/discussion 04/02/2024 Palliative care encounter 04/02/2024 Pancytopenia 04/01/2024 Secondary malignant neoplasm of liver and intrahepatic bile duct 02/17/2024 Malignant neoplasm of head of pancreas Metastasis from pancreatic cancer 01/28/2024 Encounter for antineoplastic chemotherapy 2023 Atherosclerosis of [place] ar teries of extremities with rest pain, bilateral legs 11/08/2023 Pulmonary hypertension, unspecified 07/17/2022 B12 deficiency 03/22/2022 Moderate aortic stenosis 11/28/2021 Occupational exposure to noise 09/27/2020 Coronary artery disease of n ative artery of [place] heart with stable angina pectoris 09/17/2019 Gastroesophageal [...] as of this encounter (statuses as of 04/03/2024) Resolved Problems Problem Noted Date Diagnosed Date [...] Per HTN Protocol #27. [employer] Other*[id number] 09/23/2009 05/01/2016 Overview (09/23/2009): Study Titile: Genomic Markers for Patients with Cardiovascular Disease Project #[id number] PI: Estela Sandoval MD Please call [phone] with study related questions Dyslipidemia, goal LDL below 70 08/30/2009 02/26/2013 HTN, goal below 130/80 08/30/200911/14 Overview: Per HTN Protocol #27. History of drug allergy 08/29/200906/23 Dyslipidemia, goal LDL below 70 08/23/2009 02/26/2013 ACEI/ARB contraindicated 09/2013 documented as of this encounter (statuses as of 04/03/2024) Immunizations Name Administration Dates Next Due COVID-19 [...] as of this encounter Progress Notes * Armando Kelley, SHILPA - 04/02/2024 3:19 AM EST MEDICARE AMBULANCE INFORMATION SHEET Patient Admitted as an Inpatient: yes Certifying Physician/Ordering Service:[facility] ED Physician - Rajinder Cook M.D. [facility] [address] [place] [address] [place] (zip code required): Hospital - [facility] - [address]; [place] [address] Destination (Specify Name/Address): [facility] - [address]; [place] [address] Patient transported to nearest facility (capable of mgmt for Pt's condition): YES Total number of Loaded Miles: 79 miles Mode of Transport: Ground ALS1 ALS Assessment (Candy Supervisor) IV ALS Medication Completed by: Armando Kelley RN documented in this encounter Plan of Treatment Upcoming Encounters Date Type Department Care Team (Latest Contact Info) Description 04/06/2024 9:20 AM EST Office Visit Family Practice [address], [place] [address] [place] [address] Pedro Luis Bowens, [address] [place] [address] 04/17/2024 9:30 AM EST Laboratory Laboratory, [facility] [address] [facility] [place] [phone] [facility], Lab [facility] [address] [facility] [place] [address] 04/17/2024 10:00 AM EST Imaging Radiology [facility] 1st [facility] [address] [facility] [place] [address] 04/21/2024 8:00 AM EST Hospital Encounter ENDO [facility], Endoscopy Room [facility] [address] [facility] [place] [phone] Jose E Bai MD [address] [place] [address] 04/21/2024 8:00 AM EST - 04/21/2024 8:45 AM EST Surgery ENDO [facility], Endoscopy Room [facility] [address] [place] [phone] Jose E Bia MD [address] [place] [address] ENDOSCOPIC RETROGRADE CHOLANGIOPANCREATOGRAPHY (ERCP) DIAGNOSTIC 04/28/2024 9:30 AM EST Office Visit Hematology/Oncol roman [place] [address] [place] [phone] Marimar Del Castillo MD [address] [place] [address] Scheduled Procedures Name Priority Associated Diagnoses Date/Ti va ENDOSCOPIC RETROGRADE CHOLANGIOPANCREATOGRAPHY (ERCP) DIAGNOSTIC Pancreatic mass Liver mass 04/21/2024 8:00 AM EST ENDOSCOPIC RETROGRADE CHOLANGIOPANCREATOGRAPHY (ERCP) W/STENT REMOVAL AND EXCHANGE; INC DILATION, GUIDE WIRE AND SPHINCTEROTOMY Pancreatic mass Liver mass 04/21/2024 8:00 AM EST ENDOSCOPIC RETROGRADE CHOLANGIOPANCREATOGRAPHY (ERCP) DIAGNOSTIC Recall Cholangitis [...] this encounter Medical Devices Implanted Type Area Action Installer Device Identifier Shelf Expiration Date Model / Serial / Lot Stent Bili Duodenal [id number] - [id number] Implanted:Qty : 1 on 01/16/2024 by Jose E Bai MD at ENDOSCOPY [facility] N/A: Stomach [employer] 12/02/2025 PBD-1031- 1007 / / [id number] Stent Viabil Biliary [id number] - [id number] Implanted:Qty : 1 on 04/02/2024 by Mars Anna DO at ENDOSCOPY [facility] [employer] [id number] 01/15/2027 [id number] / [id number] / [id number] documented as of this encounter Visit Diagnoses Diagnosis Pneumonia of right upper lobe due to infectious organism- Primary Cholecystitis Cholecystitis, unspecified Primary pancreatic cancer with metastasis to other site (HCC) Pancreatic mass Unspecified disease of pancreas [...] Name Relationship Healthcare Agent Relationship Communication Johann Downing Other - (no specific identity) First Alternate Health Care Agent (per Health Care Power of Valver document) Care Teams Salt Cutter Relationship Specialty Start Date End Date Pedro Luis Bowens DO [address] [place] [address] PCP - General Internal Medicine 09/09/23 documented as of this encounter
--- OUTSIDE RECORDS SUMMARY | 2024-04-25 18:02 | External Medical Summary ---
Author Name Unknown Address Unknown Organization K01:LABORATORY [facility] - [facility] [address] [place] [address] Laboratory Report Ordering Provider Test Date Status SAIRA VELAZQUEZ 04/03/2024 07:34:00 Final Observation Date Value Abnormality Reference (Units ) Status BUN 04/03/2024 07:34:00 25 Above high normal 6-20 (mg/dL) Final Creatinine 04/03/2024 07:34:00 0.9 0.6-1.2 (mg/dL) Final Glomerular filtration rate/1.73 sq M.predicted [Volume Rate/Area] in Serum, Plasma or Blood by Creatinine-based formula (CKD-EPI) 04/03/2024 07:34:00 84 >=60 (mL/min) Final eGFR is calculated based on the CKD-EPI 2020 equation. Sodium 04/03/2024 07:34:00 131 Below low normal 135 -146 (mmol/L) Final Potassium 04/03/2024 07:34:00 3.6 3.5-5.1 (m mol/L) Final Cl 04/03/2024 07:34:00 98 98-107 (mm ol/L) Final CO2 04/03/2024 07:34:00 21 Below low normal 22- 32 (mmol/L) Final Anion gap 04/03/2024 07:34:00 12 7-15 (mmol /L) Final Glucose 04/03/2024 07:34:00 157 Above high normal 70 -120 (mg/dL) Final Calcium 04/03/2024 07:34:00 8.6 8.4-10.2 ( mg/dL) Final Performing Location LABORATORY [facility] - [address] [place] [address]
--- OUTSIDE RECORDS SUMMARY | 2024-04-25 18:02 | External Medical Summary | Summary of Care ---
Author Name Unknown Organization [facility] Address [address] [place] [address] Phone [phone] Care Team Providers Care Nuclear Power Reactor Operator Name Role Phone Pedro Luis Bowens DO Primary Care Provider [phone] Reason for Visit * Reason Onset Date Comments Order Request 03/26/2024 Encounter Details Date Type Department Care Team (Late st Contact Info) Description 03/26/2024 Telephone Gastroenterology, 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 DX: E11.9 1 Kit 021 Suspended Vitamin D3 25 MCG (1000 UT) Oral Capsule Take 1 Capsule by mouth every evening. Suspended Ranolazine ER 1000 MG Oral Tablet Extended Release 12 HourIndications: Coronary artery disease of [place] artery of [place] heart with stable angina pectoris ([facility]) TAKE ONE TABLET BY MOUTH TWICE [...] Tablet 3 02/10/20 24 10:27 AM EST Suspended Clopidogrel Bisulfate 75 [...] goal of less than 7.0% ([facility]) Take 1 Tablet by mouth in the morning. Before breakfast. 90 Tablet 2 024 Suspended Lidocaine Viscous HCl 2 % Mouth/Throat [...] edema One tablet daily 30 Tablet 6 Suspended Potassium Chloride ER 10 MEQ Oral Capsule Extended ReleaseIndicatio ns:Bilateral leg edema Take 1 Capsule by mouth in the morning. 30 Capsule 5 024 Suspended Hospital, Clinic, or Other Facility Administered Medication Ordered Dose Route Frequency Start Date End Date Status Vitamin B-12 (Cyanocobalamin) inj 1,000 mcgIndications:Vitamin B 12 deficiency 1000 mcg IM [id number] 03/23/2024 12/26/2026 Active documented as of this [...] Encounter for antineoplastic chemotherapy 2023 Atherosclerosis of [place] ar teries of extremities with rest pain, bilateral legs 11/08/2023 Pulmonary hypertension, unspecified 07/17/2022 B12 deficiency 03/22/2022 Moderate aortic stenosis 11/28/2021 Occupational exposure to noise 09/27/2020 Coronary artery disease of n ative artery of [place] heart with stable angina pectoris 09/17/2019 Gastroesophageal [...] Per HTN Protocol #27. [employer] Other*[id number] 09/23/2009 05/01/2016 Overview (09/23/2009): Study Titile: Genomic Markers for Patients with Cardiovascular Disease Project #[id number] PI: Estela Sandoval MD Please call [phone] with study related questions Dyslipidemia, goal LDL [...] encounter Miscellaneous Notes * Telephone Encounter - Eli Loredo, DARIA - 04/03/2024 10:38 AM EST ERCP cx'd 04/21 * Telephone Encounter - Jose E Bai MD - 04/02/2024 4:50 PM EST You can cancel his upcoming ERCP with me on 04/21 as he got his stent exchanged already at [facility]. [place]- [place], no need to order the stent. * Telephone Encounter - Marion Pena OSA - 04/02/2024 2:[address] Bai, Please see note form Dr. Bowens about pt having ERCP. Do you wish for him to continue to have the EUS on 04/21/24? Please advise DARIA Simms 04/02/2024 2:56 PM * Telephone Encounter - Pedro Luis Bowens DO - 04/02/2024 1:47 PM EST Patient admitted to [facility]. ERCP is scheduled for today * Telephone Encounter - Marion Pena OSA - 03/26/2024 3:13 PM EST Pt is scheduled for repeat EUS on 04/21/[address] orders for Pancreatic mass [K86.89] Liver mass [R16.0] Thank you DARIA Simms 03/26/2024 3:14 PM documented in this encounter Plan of Treatment Upcoming Encounters Date Type Department Care Team (Late st Contact Info) Description 04/06/2024 9:20 AM EST Office Visit [facility], [address] [place] [address] Pedro Luis Bowens DO [address] [place] [address] 04/17/2024 9:30 AM EST Laboratory Laboratory, [facility] [phone] [facility] [address] 04/17/2024 10:00 AM EST Imaging Radiology [facility]st [facility] [address] [facility] [address] 04/28/2024 9:30 AM EST Office Visit Hematology/Oncology [facility] [address] [place] [phone] Marimar Del Castillo MD [address] [place] [address] Scheduled Procedures Name Priority Associated Diagnoses Date/Ti [...] encounter Medical Devices Implanted Type Area Manager Supply Chain Planning Device Identifier Shelf Expiration Date Model / Serial / Lot Stent Bili Duodenal [id number] - [id number] Implanted:Qty : 1 on 01/16/2024 by Jose E Bai MD at ENDOSCOPY [facility] N/A: Stomach [employer] 12/02/2025 PBD-1031- 1007 / / [id number] Stent Viabil Biliary [id number] - [id number] Implanted:Qty : 1 on 04/02/2024 by Mars Anna DO at ENDOSCOPY [facility] [employer] [id number] 01/15/2027 [id number] / [id number] / [id number] documented as of this encounter Additional Health Concerns Infection Onset [...] Care Agent (per Health Care Power of Endless Track Vehicle Mechanic document) Care Teams Nuclear Power Reactor Operator Relationship Specialty Start Date End Date Pedro Luis Bowens DO [address] [place] [address] PCP - General Internal Medicine 09/09/23 documented as of this encounter
--- OUTSIDE RECORDS SUMMARY | 2024-04-25 18:02 | External Medical Summary | Summary of Care ---
Author Name Unknown Organization [facility] Address [address] [place] [address] Phone [phone] Care Team Providers Care Netsuite Developer Name Role Phone Pedro Luis Bowens DO Primary Care Provider [phone] Encounter Details Date Type Department Care Team (Late st Contact Info) Description 04/03/2024 Population Health External Data Unspecified Department Allergies [...] Release 12 HourIndications: Coronary artery disease of [place] artery of [place] heart with stable angina pectoris (HCC) TAKE [...] goal of less than 7.0% ([facility]) Take 1 Tablet by mouth [...] Encounter for antineoplastic chemotherapy 2023 Atherosclerosis of [place] ar teries of extremities with rest pain, bilateral legs 11/08/2023 Pulmonary hypertension, unspecified 07/17/2022 B12 deficiency 03/22/2022 Moderate aortic stenosis 11/28/2021 Occupational exposure to noise 09/27/2020 Coronary artery disease of n ative artery of [place] heart with stable angina pectoris 09/17/2019 Gastroesophageal [...] bypass status 08/23/2009 Overview (08/23/2009): CABG X DM type 2 causing vascular disease 08/23/2009 [...] Per HTN Protocol #27. [employer] Other*[id number] 09/23/2009 05/01/2016 Overview (09/23/2009): Study Titile: Genomic Markers for Patients with Cardiovascular Disease Project #[id number] PI: Estela Sandoval MD Please call [phone] with study related questions Dyslipidemia, goal LDL [...] Smoking Tobacco: Former Cigarettes 1 25 1 1985 Passive Smoke Exposure: Past Smokeless Tobacco: [...] of Assessment Author No 04/02/2024 1:30 AM EST Zuri Mckinley RN documented as of this encounter Mental Status * Because of a physical, mental, or emotional condition, do you have serious difficulty concentrating, remembering, or making decisions? (5 years old or older) Answer Entry Date Author No 04/02/2024 1:30 AM EST Zuri Mckinley RN documented in this encounter Plan of Treatment Upcoming Encounters Date Type Department Care Team (Latest Contact Info) Description 04/06/2024 9:20 AM EST Office Visit Family Practice [address], [place] 293 [place] [address] Pedro Luis Bowens, 293 [place] [address] 04/17/2024 9:30 AM EST Laboratory Laboratory, [facility] 132 [facility] [place] [phone] [facility] [address] [facility] [place] [address] 04/17/2024 10:00 AM EST Imaging Radiology [address] 132 [facility] [place] [address] 04/21/2024 8:00 AM EST Hospital Encounter ENDO [facility], Endoscopy Room [facility] [address] [place] [phone] Jose E Bai MD [address] [place] [address] 04/21/2024 8:00 AM EST - 04/21/2024 8:45 AM EST Surgery ENDO [facility], Endoscopy Room [facility] [address] [place] [phone] Jose E Bai MD [address] [place] [address] ENDOSCOPIC RETROGRADE CHOLANGIOPANCREATOGRAPHY (ERCP) DIAGNOSTIC 04/28/2024 9:30 AM EST Office Visit Hematology/Oncol ogy [place] [place] [address] [place] [address] Marimar Del Castillo MD [address] [place] [address] Scheduled Procedures Name Priority Associated Diagnoses Date/Ti [...] this encounter Medical Devices Implanted Type Area Crew Leader Device Identifier Shelf Expiration Date Model / Serial / Lot Stent Bili Duodenal [id number] - [id number] Implanted:Qty : 1 on 01/16/2024 by Jose E Bai MD at ENDOSCOPY [facility] N/A: Stomach [employer] 12/02/2025 PBD-1031- 1007 / / [id number] Stent Viabil Biliary [id number] - [id number] Implanted:Qty : 1 on 04/02/2024 by Mars Anna DO at ENDOSCOPY [facility] [employer] [facility] [id number] 01/15/2027 [id number] / [id number] / [id number] documented as of this encounter Advance Directives [...] Care Agent (per Health Care Power of Wood Preparation Supervisor document) Care Teams Netsuite Developer Relationship Specialty Start Date End Date Pedro Luis Bowens DO [address] [place] [address] PCP - General Internal Medicine 09/09/23 documented as of this encounter
--- OUTSIDE RECORDS SUMMARY | 2024-04-25 18:02 | External Medical Summary | Summary of Care ---
Author Name Unknown Organization [facility] Address [address] [place] [address] Phone [phone] Care Team Providers Care Scanning Coordinator Name Role Phone Pedro Luis Bowens DO Primary Care Provider [phone] Encounter Details Date Type Department Care Team (Latest Contact Info) Description 04/01/2024 2:35 PM EST - 04/01/2024 11:59 PM EST Hospital Encounter Radiology Film File [address] [place] [address] Arrived Discharge Disposition: Home - Self Care Allergies [...] goal of less than 7.0% ([facility]),DM type 2 causing vascular disease ([facility]),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 DX: E11.9 1 Kit 021 Suspended Vitamin D3 25 MCG (1000 UT) Oral Capsule Take 1 Capsule by mouth every evening. Suspended Ranolazine ER 1000 MG Oral Tablet Extended Release 12 HourIndications: Coronary artery disease of [place] artery of [place] heart with stable angina pectoris ([facility]) TAKE ONE TABLET BY MOUTH TWICE [...] INTRAMUSCULARLY EVERY 30 DAYS 3 mL 1 Suspended Additional Information Patient taking differently: INJECT [...] goal of less than 7.0% ([facility]) Take 1 Tablet by mouth in [...] Active Problems Problem Noted Date Diagnosed Date Pancytopenia 04/01/2024 Secondary malignant neoplasm of liver and intrahepatic bile duct 02/17/2024 Malignant neoplasm of head of pancreas Metastasis from pancreatic cancer 01/28/2024 Encounter for antineoplastic chemotherapy 2023 Atherosclerosis of [place] ar teries of extremities with rest pain, bilateral legs 11/08/2023 Pulmonary hypertension, unspecified 07/17/2022 B12 deficiency 03/22/2022 Moderate aortic stenosis 11/28/2021 Occupational exposure to noise 09/27/2020 Coronary artery disease of n ative artery of [place] heart with stable angina pectoris 09/17/2019 Gastroesophageal [...] Per HTN Protocol #27. [employer] Other*[id number] 09/23/2009 05/01/2016 Overview (09/23/2009): Study Titile: Genomic Markers for Patients with Cardiovascular Disease Project #[id number] PI: Estela Sandoval MD Please call [phone] with study related questions Dyslipidemia, goal LDL [...] Years Used Date Smoking Tobacco: Former Cigarettes 1985 Passive Smoke Exposure: Past Smokeless Tobacco: [...] EST Office Visit Family Practice [address], [place] [address] [place] [address] Pedro Luis Bowens, DO 293 [place] [address] 04/17/2024 9:30 AM EST Laboratory Laboratory, [facility] 132 [facility] [place] [phone] [place] zac[place] [address] [place] [address] 04/17/2024 10:00 AM EST Imaging Radiology [facility] 1st Floor, [place] 132 [facility] [place] [address] 04/28/2024 9:30 AM EST Office Visit Hematology/Oncology i[facility] [place] 200 [facility] [place] [address] Marimar Del Castillo MD [address] [facility] [place] [address] Scheduled Procedures Name Priority Associated Diagnoses Date/Ti [...] this encounter Medical Devices Implanted Type Area Project Financial Analyst Device Identifier Shelf Expiration Date Model / Serial / Lot Stent Bili Duodenal [id number] - [id number] Implanted:Qty: 1 on 01/16/2024 by Jose E Bai MD at ENDOSCOPY [facility] N/A: Stomach [employer] 12/02/2025 PBD-1031-1 007 / / [id number] documented as of this encounter Procedures Procedure Name Priority Date/Time Associated Diagnosis Comments RADIOLOGY EXAM - CT (IMAGES ONLY, NO REPORT) Routine 04/01/2024 2:35 PM EST documented in this encounter Results * RADIOLOGY EXAM - CT (IMAGES ONLY, NO REPORT) (04/01/2024 2:35 PM EST) 04/01/2024 2:34 PM EST Narrative Scheduling, Silent - 04/02/2024 8:11 AM EST This is an imaging study not interpreted or resulted by a [facility] or [facility] contracted radiologist. Chase Ozuna MD RAD CT Final Result documented in this encounter Advance Directives [...] Care Agent (per Health Care Power of Forensic Manager document) Care Teams Scanning Coordinator Relationship Specialty Start Date End Date Pedro Luis Bowens DO [address] [place] [address] PCP - General Internal Medicine 09/09/23 documented as of this encounter
--- OUTSIDE RECORDS SUMMARY | 2024-04-25 18:02 | External Medical Summary | Summary of Care ---
Author Name Unknown Organization [facility] Address [address] [place] [address] Phone [phone] Care Team Providers Care Signal Helper Name Role Phone Pedro Luis Bowens DO Primary Care Provider [phone] Reason for Visit * Reason Onset Date Comments Order Request 03/26/2024 Encounter Details Date Type Department Care Team (Late st Contact Info) Description 03/26/2024 Telephone Gastroenterology, [facility] [address] [place] [address] Jose E Bai MD [address] [place] [address] Order Request Allergies Active Allergy Reactions Criticality [...] Release 12 HourIndications: Coronary artery disease of [place] artery of [place] heart with stable angina pectoris ([facility] [...] less than 7.0% ([facility]) Take 1 Tablet by mouth [...] mcgIndications:Vitamin B 12 deficiency 1000 mcg IM [id number] 03/23/2024 12/26/2026 Active documented as of this [...] Encounter for antineoplastic chemotherapy 2023 Atherosclerosis of [place] ar teries of extremities with rest pain, bilateral legs 11/08/2023 Pulmonary hypertension, unspecified 07/17/2022 B12 deficiency 03/22/2022 Moderate aortic stenosis 11/28/2021 Occupational exposure to noise 09/27/2020 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 [employer] Other*[id number] 09/23/2009 05/01/2016 Overview (09/23/2009): Study Titile: Genomic Markers for Patients with Cardiovascular Disease Project #[id number] PI: Estela Sandoval MD Please call [phone] with study related questions Dyslipidemia, goal LDL [...] encounter Miscellaneous Notes * Telephone Encounter - Jose E Bai MD - 04/02/2024 4:50 PM EST You can cancel his upcoming ERCP with me on 04/21 as he got his stent exchanged already at [facility]. Sury- GERARD, no need to order the stent. * [...] 04/02/2024 1:47 PM EST Patient admitted to [facility]. ERCP is scheduled for today * Telephone [...] 04/06/2024 9:20 AM EST Office Visit Family [address] [place] [place] [id number] Pedro Luis Bowens DO [address] [facility] [address] 04/17/2024 9:30 AM EST Laboratory Laboratory, [facility] 132 [facility] [place] [address] [facility] [address] [place], [place] [address] 04/17/2024 10:00 AM EST Imaging Radiology [facility] 1st [facility] [place] [address] [place], [place] [address] 04/21/2024 8:00 AM EST Hospital Encounter ENDO [facility], Endoscopy Room [facility] [address] [place], [place] [address] Jose E Bai MD [address] [place] [address] 04/21/2024 8:00 AM EST - 04/21/2024 8:45 AM EST Surgery ENDO [facility], Endoscopy Room [facility] [address] [place] [phone] Jose E Bai MD [address] [place], [place] [address] ENDOSCOPIC RETROGRADE CHOLANGIOPANCREATOGRAPHY (ERCP) DIAGNOSTIC 04/28/2024 9:30 AM EST Office Visit Hematology/Oncol ogalexia Conroy [place] [address] [place], [place] [address] Marimar Del Castillo MD [address] [place] [address] Scheduled Procedures Name Priority Associated Diagnoses Date/Ti [...] this encounter Medical Devices Implanted Type Area Rn Women Services Device Identifier Shelf Expiration Date Model / Serial / Lot Stent Bili Duodenal [id number] - [id number] Implanted:Qty : 1 on 01/16/2024 by Jose E Bai MD at ENDOSCOPY [facility] N/A: Stomach [employer] 12/02/2025 PBD-1031- 1007 / / [id number] Stent Viabil Biliary [id number] - [id number] Implanted:Qty : 1 on 04/02/2024 by Mars Anna DO at ENDOSCOPY [facility] [employer] [id number] 01/15/2027 [id number] / [id number] / [id number] documented as of this encounter Additional Health [...] Care Agent (per Health Care Power of Cooky Machine Operator document) Care Teams Signal Helper Relationship Specialty Start Date End Date Pedro Luis Bowens DO [address] [place] [address] PCP - General Internal Medicine 09/09/23 documented as of this encounter
--- OUTSIDE RECORDS SUMMARY | 2024-04-25 18:02 | External Medical Summary ---
Author Name Unknown Address Unknown Organization : Laboratory Report Ordering Provider Test Date Status HENRY VILLASENOR 04/03/2024 11:16:39 Final Observation Date Value Abnormality Reference (Units ) Status Glucose Point of Care 04/03/2024 11:16:39 169 Above high normal 70-120 (mg/dL) Final Performing Location
--- OUTSIDE RECORDS SUMMARY | 2024-04-25 18:02 | External Medical Summary ---
Author Name Unknown Address Unknown Organization K01:LABORATORY [facility] - [facility] [address] [facility] [address] [facility] [address] Laboratory Report Ordering Provider Test Date Status SAIRA VELAZQUEZ 04/03/2024 07:34:00 Final Observation Date Value Abnormality Reference (Units ) Status WBC, Total 04/03/2024 07:34:00 23.71 Above high normal 4.00-10.80 (K/uL) Final RBC 04/03/2024 07:34:00 3.53 4.50-5.25 (M/uL) Final Hemoglobin 04/03/2024 07:34:00 10.1 Below low normal 14.0-16.8 (g/dL) Final HCT 04/03/2024 07:34:00 31.5 Below low normal 40.0-48.4 (%) Final MCV 04/03/2024 07:34:00 89.2 82.0-99.5 (fL) Final MCH 04/03/2024 07:34:00 28.6 27.0-34.0 (pg) Final MCHC 04/03/2024 07:34:00 32.1 32.0-36.0 (g/dL) Final RDW 04/03/2024 07:34:00 17.6 11.5-15.5 (%) Final Platelets 04/03/2024 07:34:00 357 140-400 (K/uL) Final MPV 04/03/2024 07:34:00 9.2 6.6-11.1 (fL) Final Nucleated erythrocytes/100 leukocytes [Ratio] in Blood by Automated count 04/03/2024 07:34:00 0 <=0 (/100 WBCs) Final Performing Location LABORATORY [facility] - [address] [place] [address]
--- OUTSIDE RECORDS SUMMARY | 2024-04-25 18:02 | External Medical Summary | Summary of Care ---
Author Name Unknown Organization [facility] Address [address] [place] [address] Phone [phone] Care Team Providers Care Ordnance Artificer Name Role Phone Pedro Luis Bowens DO Primary Care Provider [phone] Reason for Visit * Reason Onset Date Comments Mycode Lab Reorder 04/03/2024 Encounter Details Date Type Department Care Team (Late st Contact Info) Description 04/03/2024 Orders Only Outcomes Research Department [address] [place] [address] Amparo Mahajan CHRA MyCode Research Other*[id number]* Allergies Active Allergy Reactions Criticality Noted Date [...] Cap by mouth daily before breakfast. Suspended INNOBITouch Ultra 2 w/Device KitIndications:T ype 2 diabetes [...] Release 12 HourIndications: Coronary artery disease of [place] artery of [place] heart with stable angina pectoris ([facility] [...] Encounter for antineoplastic chemotherapy 2023 Atherosclerosis of [place] ar teries of extremities with rest pain, bilateral legs 11/08/2023 Pulmonary hypertension, unspecified 07/17/2022 B12 deficiency 03/22/2022 Moderate aortic stenosis 11/28/2021 Occupational exposure to noise 09/27/2020 Coronary artery disease of n ative artery of [place] mountain heart with stable angina pectoris 09/17/2019 Gastroesophageal [...] Per HTN Protocol #27. [employer] Other*[id number] 09/23/2009 05/01/2016 Overview (09/23/2009): Study Titile: Genomic Markers for Patients with Cardiovascular Disease Project #[id number] PI: Estela Sandoval MD Please call [phone] with study related questions Dyslipidemia, goal LDL [...] No 03/02/2024 Does the household have a [facility] source of income? (Household - for ages [...] 04/02/2024 1:30 AM Zuri Walters, RN documented in this encounter Progress Notes * Amparo Mahajan CHRA - 04/03/2024 10:46 AM EST MyCode lab reordered. documented in this encounter Plan of Treatment Upcoming Encounters Date Type Department Care Team (Late st Contact Info) Description 04/06/2024 9:20 AM EST Office Visit Family Practice [address], [place] [address] [place] [address] Pedro Luis Bowens, [address] [place] [address] 04/17/2024 9:30 AM EST Laboratory Laboratory, [facility] [phone] Manuela Chin [facility] [address] 04/17/2024 10:00 AM EST Imaging Radiology [facility] 1st [facility] 132 [facility] [place] [address] 04/28/2024 9:30 AM EST Office [facility] [place] [address] [place] [phone] Marimar Del Castillo MD [address] [place] [address] Scheduled Orders Name Type Priority Associated Diagnoses Orde r Schedule MYCODE INITIAL ADULT Lab Routine MyCode Research Other*[id number] Expected: 04/03/2024 (Approximate), Expires: 04/23/2025 Scheduled Procedures Name Priority Associated Diagnoses Date/Ti [...] this encounter Medical Devices Implanted Type Area Assembler [place] Device Identifier Shelf Expiration Date Model / Serial / Lot Stent Bili Duodenal [id number] - [id number] Implanted:Qty : 1 on 01/16/2024 by Jose E Bai MD at ENDOSCOPY [facility] N/A: Stomach [employer] 12/02/2025 PBD-1031- 1007 / / [id number] Stent Viabil Biliary [id number] - [id number] Implanted:Qty : 1 on 04/02/2024 by Mars Anna DO at ENDOSCOPY [facility] [employer] JULIO CESAR [id number] 01/15/2027 [id number] / [id number] / [id number] documented as of this encounter Visit Diagnoses Diagnosis MyCode Research Other*[id number]- Primary documented in this encounter Advance Directives [...] Care Agent (per Health Care Power of Director Channel document) Care Teams Ordnance Artificer Relationship Specialty Start Date End Date Pedro Luis Bowens DO [address] [place] [address] PCP - General Internal Medicine 09/09/23 documented as of this encounter
--- OUTSIDE RECORDS SUMMARY | 2024-04-25 18:03 | External Medical Summary ---
Author Name Unknown Address Unknown Organization : Laboratory Report Ordering Provider Test Date Status HENRY VILLASENOR 04/03/2024 00:32:03 Final Observation Date Value Abnormality Reference (Units ) Status Glucose Point of Care 04/03/2024 00:32:03 140 Above high normal 70-120 (mg/dL) Final Performing Location
--- OUTSIDE RECORDS SUMMARY | 2024-04-25 18:03 | External Medical Summary ---
Author Name Unknown Address Unknown Organization K01:LABORATORY [facility] [place] [facility] - [address] [place] [address] Laboratory Report Ordering Provider Test Date Status EVARISTO MARMOLEJO 04/02/2024 11:15:00 Final Observation Date Value Abnormality Reference (Units ) Status Lactic Acid 04/02/2024 11:15:00 1.8 0.4-2.0 (mmol/L) Final Performing Location LABORATORY C - [address] [place] [address]
--- OUTSIDE RECORDS SUMMARY | 2024-04-25 18:03 | External Medical Summary | Summary of Care ---
Author Name Unknown Organization [facility] Address [address] [place] [address] Phone [phone] Care Team Providers Care Casket Liner Name Role Phone Pedro Luis Bowens DO Primary Care Provider [phone] Encounter Details Date Type Department Care Team (Late st Contact Info) Description 04/01/2024 Orders Only General Internal Medicine, [facility] [address], [place] [phone] Chase Ozuna MD [address] [place], [place] [phone] Allergies Active Allergy Reactions Criticality Noted Date Comments Iodinated Contrast Media Rash 08/29/2009 Pt got a rash after his cath on 08/23/09 Levofloxacin 11/03/2009 Nausea jittery Lisinopril 10/01/2013 Cough Rash documented as of this encounter (statuses as of 04/02/2024) Medications ASPIRIN 81 MG PO CHEW Take [...] hemoglobin A1c goal of less than 7.0% ([facility]),DM type 2 causing vascular disease (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) Use to test blood glucose 4 times daily. DX: E11.9 1 Kit Suspended Vitamin D3 25 MCG (1000 UT) Oral Capsule Take 1 Capsule by mouth every evening. Suspended Ranolazine ER 1000 MG Oral Tablet Extended Release 12 HourIndications: Coronary artery disease of [place] artery of [place] heart with stable angina pectoris ([facility]) TAKE ONE TABLET BY MOUTH TWICE A [...] hemoglobin A1c goal of less than 7.0% ([facility]) Take 1 Tablet by mouth in the [...] as of this encounter (statuses as of 04/02/2024) Active Problems Problem Noted Date Diagnosed Date Acute cholecystitis 04/02/2024 Sepsis without acute organ dysfunction 5 Pancytopenia 04/01/2024 Secondary malignant neoplasm of liver and intrahepatic bile duct 02/17/2024 Malignant neoplasm of head of pancreas 4 Metastasis from pancreatic cancer 01/28/2024 Encounter for antineoplastic chemotherapy 2023 Atherosclerosis of [place] ar teries of extremities with rest pain, bilateral legs 11/08/2023 Pulmonary hypertension, unspecified 07/17/2022 B12 deficiency 03/22/2022 Moderate aortic stenosis 11/28/2021 Occupational exposure to noise 09/27/2020 Coronary artery disease of n ative artery of [place] heart with stable angina pectoris 09/17/2019 Gastroesophageal [...] as of this encounter (statuses as of 04/02/2024) Resolved Problems Problem Noted Date Diagnosed Date [...] Per HTN Protocol #27. [employer] Card[employer] Research Other*[id number] 09/23/2009 05/01/2016 Overview (09/23/2009): Study Titile: Genomic Markers for Patients with Cardiovascular Disease Project #[id number] PI: Estela Sandoval MD Please call [phone] with study related questions Dyslipidemia, goal LDL below 70 08/30/2009 02/26/2013 HTN, goal below 130/80 08/30/200911/14 Overview: Per HTN Protocol #27. History of drug allergy 08/29/200906/23 Dyslipidemia, goal LDL below 70 08/23/2009 02/26/2013 ACEI/ARB contraindicated 09/2013 documented as of this encounter (statuses as of 04/02/2024) Immunizations Name Administration Dates Next Due COVID-19 [...] EST Office Visit Family Practice [address], [place] [address] [place] [address] Pedro Luis Bowens, DO 293 [place] [address] 04/17/2024 9:30 AM EST Laboratory Laboratory, [facility] 132 [facility] [place] [phone] ChinManuela zacarias [address] [place] [address] 04/17/2024 10:00 AM EST Imaging Radiology [facility] 1st Floor, [place] [address] [place] [address] 04/21/2024 8:00 AM EST Hospital Encounter ENDO [facility], Endoscopy Room [facility] [address] [place] [address] Jose E Bai MD [address] [place] [address] 04/21/2024 8:00 AM EST - 04/21/2024 8:45 AM EST Surgery [facility], Endoscopy Room [facility] [address] [place] [address] Jose E Bai MD [address] [place] [address] ENDOSCOPIC RETROGRADE CHOLANGIOPANCREATOGRAPHY (ERCP) DIAGNOSTIC 04/28/2024 9:30 AM EST Office Visit Hematology/Oncol roman Conroy [place] [address] [place] [address] Marimar Del Castillo MD [address] [place] [address] Scheduled Procedures Name Priority Associated Diagnoses Date/Ti nv ENDOSCOPIC RETROGRADE CHOLANGIOPANCREATOGRAPHY (ERCP) DIAGNOSTIC Pancreatic mass [...] history exists Depression Screening 03/02/2025 03/02/2024 GFR 04/02/2025 04/02/2024, 11/2024, 04/01/2024, Additional history exists DTap/Tdap Vaccines (3 - [...] this encounter Medical Devices Implanted Type Area Bowling Alley Manager Device Identifier Shelf Expiration Date Model / Serial / Lot Stent Bili Duodenal [id number] - [id number] Implanted:Qty: 1 on 01/16/2024 by Jose E Bai MD at ENDOSCOPY [facility] N/A: Stomach [employer] 12/02/2025 PBD-1031-1 007 / / [id number] documented as of this encounter Procedures Procedure [...] interpreted or resulted by a [facility] or [facility] contracted radiologist. Chase Ozuna MD RAD CT [...] Power of Attor ila? No Care Teams Casket Liner Relationship Specialty Start Date End Date Pedro Luis Bowens DO [address] [place] [address] PCP - General Internal Medicine 09/09/23 documented as of this encounter
--- OUTSIDE RECORDS SUMMARY | 2024-04-25 18:03 | External Medical Summary ---
Author Name Unknown Address Unknown Organization : Laboratory Report Ordering Provider Test Date Status HENRY VILLASENOR 04/03/2024 06:38:00 Final Observation Date Value Abnormality Reference (Units ) Status Glucose Point of Care 04/03/2024 06:38:00 164 Above high normal 70-120 (mg/dL) Final Performing Location
--- OUTSIDE RECORDS SUMMARY | 2024-04-25 18:03 | External Medical Summary ---
Author Name Unknown Address Unknown Organization K01:LABORATORY [facility] - [address] [facility] [address] Laboratory Report Ordering Provider Test Date Status ZAKIA PALMA 04/02/2024 10:59:56 Final ADMITTED patient Observation Date Value Abnormality Reference (Units ) Status Adenovirus DNA [Presence] in Nasopharynx by LAXMI with non-probe detection 04/02/2024 10:59:56 Negative Negative Final Human coronavirus 229E RNA [Presence] in Nasopharynx by LAXMI with non-probe detection 04/02/2024 10:59:56 Negative Negative Final Human coronavirus HKU1 RNA [Presence] in Nasopharynx by LAXMI with non-probe detection 04/02/2024 10:59:56 Negative Negative Final Human coronavirus NL63 RNA [Presence] in Nasopharynx by LAXMI with non-probe detection 04/02/2024 10:59:56 Negative Negative Final Human coronavirus OC43 RNA [Presence] in Nasopharynx by LAXMI with non-probe detection 04/02/2024 10:59:56 Negative Negative Final SARS-CoV-2 (COVID-19) RNA [Presence] in Nasopharynx by LAXMI with non-probe detection 04/02/2024 10:59:56 Negative Negative Final Human metapneumovirus RNA [Presence] in Nasopharynx by LAXMI with non-probe detection 04/02/2024 10:59:56 Negative Negative Final Rhinovirus+Enterovirus RNA [Presence] in Nasopharynx by LAXMI with non-probe detection 04/02/2024 10:59:56 Negative Negative Final Influenza virus A RNA [Presence] in Nasopharynx by LAXMI with non-probe detection 04/02/2024 10:59:56 Negative Negative Final Influenza virus B RNA [Presence] in Nasopharynx by LAXMI with non-probe detection 04/02/2024 10:59:56 Negative Negative Final Parainfluenza virus 1 RNA [Presence] in Nasopharynx by LAXMI with non-probe detection 04/02/2024 10:59:56 Negative Negative Final Parainfluenza virus 2 RNA [Presence] in Nasopharynx by LAXMI with non-probe detection 04/02/2024 10:59:56 Negative Negative Final Parainfluenza virus 3 RNA [Presence] in Nasopharynx by LAXMI with non-probe detection 04/02/2024 10:59:56 Negative Negative Final Parainfluenza virus 4 RNA [Presence] in Nasopharynx by LAXMI with non-probe detection 04/02/2024 10:59:56 Negative Negative Final Respiratory syncytial virus RNA [Presence] in Nasopharynx by LAXMI with non-probe detection 04/02/2024 10:59:56 Negative Negative Final Bordetella pertussis.pertussis toxin promoter region [Presence] in Nasopharynx by LAXMI with non-probe detection 04/02/2024 10:59:56 Negative Negative Final Chlamydophila pneumoniae DNA [Presence] in Nasopharynx by LAXMI with non-probe detection 04/02/2024 10:59:56 Negative Negative Final Mycoplasma pneumoniae DNA [Presence] in Nasopharynx by LAXMI with non-probe detection 04/02/2024 10:59:56 Negative Negative Final Bordetella parapertussis [id number] DNA [Presence] in Nasopharynx by LAXMI with non-probe detection 04/02/2024 10:59:56 Negative Negative Final The primers that detect Rhin ovirus may cross react with some Enterorviruses. The validation of bronchial specimens, tracheal aspirates, and throats for this assay was developed and performance characteristics determined by [employer]. The validation of alternate specimen types has not been cleared or approved by the U.S. Food and Drug Administration (FDA). It has been determined that such clearance or approval is not necessary. Performing Location LABORATORY [facility] - [address] [facility] [address]. [facility] [address]
--- OUTSIDE RECORDS SUMMARY | 2024-04-25 18:03 | External Medical Summary | Summary of Care ---
Author Name Unknown Organization [facility] Address [address] [place] [address] Phone [phone] Care Team Providers Care Water Resource Engineering Specialist Name Role Phone Pedro Luis Bowens DO Primary Care Provider [phone] Reason for Visit * Reason Onset Date Comments Order Request 03/26/2024 Encounter Details Date Type Department Care Team (Late st Contact Info) Description 03/26/2024 Telephone Gastroenterology, [facility] [address] [place] [address] Jose E Bai MD [address] [place] [address] Order Request Allergies Active Allergy Reactions Criticality [...] Cap by mouth daily before breakfast. 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 DX: E11.9 1 Kit 021 Suspended Vitamin D3 25 MCG (1000 UT) Oral Capsule Take 1 Capsule by mouth every evening. Suspended Ranolazine ER 1000 MG Oral Tablet Extended Release 12 HourIndications: Coronary artery disease of [place] artery of [place] heart with stable angina pectoris ([facility]) TAKE ONE TABLET BY MOUTH TWICE [...] g 3 01/21/20 24 2:12 PM EDT Suspended Nitroglycerin 0.4 MG Sublingual Tablet Sublingual (Nitrostat) One tablet under tongue if needed for chest pain. May repeat 3 times. If chest pain continues, call 911 25 Tablet 3 Suspended Ondansetron HCl 8 MG Oral Tablet [...] 1HR PRIOR TO ACCESSING. 30 g 1 Suspended Acetaminophen 500 MG Oral Tablet (Tylenol) [...] hemoglobin A1c goal of less than 7.0% ([facility]) Take 1 Tablet by mouth in [...] in the morning. 30 Capsule 5 Suspended Hospital, Clinic, or Other Facility Administered Medication Ordered Dose Route Frequency Start Date End Date Status Vitamin B-12 (Cyanocobalamin) inj 1,000 mcgIndications:Vitamin B 12 deficiency 1000 mcg IM [id number] 03/23/2024 12/26/2026 Active documented as of this encounter (statuses as of 04/02/2024) Active Problems Problem Noted Date Diagnosed Date Acute cholecystitis 04/02/2024 Sepsis without acute organ dysfunction 01/09/202 5 Goals of care, counseling/discussion 04/02/2024 Palliative care encounter 04/02/2024 Pancytopenia 04/01/2024 Secondary malignant neoplasm of liver and intrahepatic bile duct 02/17/2024 Malignant neoplasm of head of pancreas 4 Metastasis from pancreatic cancer 01/28/2024 Encounter for antineoplastic chemotherapy 2023 Atherosclerosis of [place] ar teries of extremities with rest pain, bilateral legs 11/08/2023 Pulmonary hypertension, unspecified 07/17/2022 B12 deficiency 03/22/2022 Moderate aortic stenosis 11/28/2021 Occupational exposure to noise 09/27/2020 Coronary artery disease of n ative artery of [place] heart with stable angina pectoris 09/17/2019 Gastroesophageal [...] Per HTN Protocol #27. [employer] Other*[id number] 09/23/2009 05/01/2016 Overview (09/23/2009): Study Titile: Genomic Markers for Patients with Cardiovascular Disease Project #[id number] PI: Estela Sandoval MD Please call [phone] with study related questions Dyslipidemia, goal LDL [...] he got his stent exchanged already at [facility]. Nakul GEE, no need to order the stent. * [...] 04/02/2024 1:47 PM EST Patient admitted to [facility]. ERCP is scheduled [...] 04/06/2024 9:20 AM EST Office Visit Family [address] 293 [place] [address] Pedro Luis Bowens DO 293 [facility], [place] [address] 04/17/2024 9:30 AM EST [facility] [address] [facility] 132 [facility] [place] [address] 04/17/2024 10:00 AM EST Imaging Radiology [facility] 1st [facility] [address] [place] [address] 04/21/2024 8:00 AM EST [facility] [address] [facility] [place] [address] Jose E Bai MD [address] [place] [address] 04/21/2024 8:00 AM EST - 04/21/2024 8:45 AM EST Surgery [facility] [address] [place], [place] [address] Jose E Bai MD [address] [place] [address] ENDOSCOPIC RETROGRADE CHOLANGIOPANCREATOGRAPHY (ERCP) DIAGNOSTIC 04/28/2024 9:30 AM EST Office Visit Hematology/Oncol ogy [facility] [address] [place], [place] [phone] Marimar Del Castillo MD [address] [place] [address] Scheduled Procedures Name Priority Associated Diagnoses Date/Ti ok ESOPHAGOGASTRODUODENOSCOPY ( EGD), FLEXIBLE, TRANSORAL, DIAGNOSTIC Cholangitis 04/02/2024 3:18 PM EST ENDOSCOPIC RETROGRADE CHOLANGIOPANCREATOGRAPHY (ERCP) DIAGNOSTIC Cholangitis 04/02/2024 3:18 PM EST ENDOSCOPIC RETROGRADE CHOLANGIOPANCREATOGRAPHY (ERCP) DIAGNOSTIC Pancreatic mass [...] this encounter Medical Devices Implanted Type Area Blow Up Operator Device Identifier Shelf Expiration Date Model / Serial / Lot Stent Bili Duodenal [id number] - [id number] Implanted:Qty : 1 on 01/16/2024 by Jose E Bai MD at [facility] N/A: Stomach [employer] 12/02/2025 PBD-1031- [id number] / / [id number] Stent Viabil Biliary [id number] - [id number] Implanted:Qty : 1 on 04/02/2024 by Mars Anna DO at ENDOSCOPY [facility] [employer] JULIO CESAR [id number] 01/15/2027 [id number] / [id number] / [id number] documented as of this encounter Additional Health Concerns Infection Onset Date Last Indicated Resolved Time Respiratory Rule-Out 04/02/2024 04/02/2024 025 12:20 PM EST COVID-19 Rule-Out 04/02/2024 04/02/2024 04/02/2024 12:20 PM EST C. difficile Rule-Out 04/02/2024 04/02/2024 documented as of this encounter Advance Directives [...] Power of Attor ila? No Care Teams Water Resource Engineering Specialist Relationship Specialty Start Date End Date Pedro Luis Bowens DO [address] [place] [address] PCP - General Internal Medicine 09/09/23 documented as of this encounter
--- OUTSIDE RECORDS SUMMARY | 2024-04-25 18:03 | External Medical Summary ---
Author Name Unknown Address Unknown Organization : Laboratory Report Ordering Provider Test Date Status DELFINO VELÁSQUEZ 04/02/2024 05:19:36 Final Observation Date Value Abnormality Reference (Units ) Status Glucose Point of Care 04/02/2024 05:19:36 113 70-120 (mg/dL) Final Performing Location
--- OUTSIDE RECORDS SUMMARY | 2024-04-25 18:03 | External Medical Summary ---
Author Name Unknown Address Unknown Organization K01:LABORATORY [facility] - [address] [place] [address] Laboratory Report Ordering Provider Test Date Status FRANCIELOERA 04/02/2024 04:58:00 Final Observation Date Value Abnormality Reference (Units ) Status Albumin 04/02/2024 04:58:00 2.6 Below low normal 3.8-5.0 (g/dL) Final AST (Aspartate aminotransferase) 04/02/2024 04:58:00 138 Above high normal 10-50 (U/L) Final Alk Phos 04/02/2024 04:58:00 685 Above high normal 35-130 (U/L) Final ALT (Alanine aminotransferase) 04/02/2024 04:58:00 50 10-50 (U/L) Final Bilirubin, Total 04/02/2024 04:58:00 2.0 Above high normal <=1.2 (mg/dL) Final Bilirubin, Direct 04/02/2024 04:58:00 1.6 Above high normal 0.0-0.3 (mg/dL) Final Protein 04/02/2024 04:58:00 5.3 Below low normal 6.0-8.3 (g/dL) Final Performing Location LABORATORY [facility] - [address] [place] [address]
--- OUTSIDE RECORDS SUMMARY | 2024-04-25 18:03 | External Medical Summary | Summary of Care ---
Author Name Unknown Organization [facility] Address [address] [place] [address] Phone [phone] Care Team Providers Care Certified Court/Medical Interpreter Name Role Phone Pedro Luis Bowens DO Primary Care Provider [phone] Reason for Visit * Reason Onset Date Comments Order Request 03/26/2024 Encounter Details Date Type Department Care Team (Late st Contact Info) Description 03/26/2024 Telephone Gastroenterology, [facility] [address] [place] [address] Jose E Bai MD [address] [place] [address] Order Request Allergies Active Allergy Reactions Criticality [...] Cap by mouth daily before breakfast. Suspended [employer] Ultra 2 w/Device KitIndications:T ype 2 diabetes [...] Release 12 HourIndications: Coronary artery disease of [place] artery of [place] heart with stable angina pectoris ([facility] [...] mcgIndications:Vitamin B 12 deficiency 1000 mcg IM [id number] 03/23/2024 12/26/2026 Active documented as of this encounter (statuses as of 04/02/2024) Active Problems Problem Noted Date Diagnosed Date Acute cholecystitis 04/02/2024 Sepsis without acute organ dysfunction 01/09/202 5 Pancytopenia 04/01/2024 Secondary malignant neoplasm of [...] Per HTN Protocol #27. [employer] Other*[id number] 09/23/2009 05/01/2016 Overview (09/23/2009): Study Titile: Genomic Markers for Patients with Cardiovascular Disease Project #[id number] PI: Estela Sandoval MD Please call [phone] with study related questions Dyslipidemia, goal LDL [...] 04/02/2024 1:47 PM EST Patient admitted to [facility]. ERCP is scheduled for today * Telephone [...] 04/06/2024 9:20 AM EST Office Visit Family [address], [place] 293 [place] [address] Pedro Luis Bowens, 293 [place] [address] 04/17/2024 9:30 AM EST Laboratory Laboratory, [facility] 132 [facility] [place] [address] [facility] 132 [facility] [place] [address] 04/17/2024 10:00 AM EST Imaging Radiology [facility] 132 [facility] [place] [address] 04/21/2024 8:00 AM EST Hospital Encounter [facility]O [facility], Endoscopy Room [facility] [address] [place] [address] Jose E Bai MD [address] [place] [address] 04/21/2024 8:00 AM EST - 04/21/2024 8:45 AM EST Surgery [facility], Endoscopy Room [facility] [address] [place] [phone] Jose E Bai MD [address] [place] [address] ENDOSCOPIC RETROGRADE CHOLANGIOPANCREATOGRAPHY (ERCP) DIAGNOSTIC 04/28/2024 9:30 AM EST Office Visit Hematology/Oncol ogy [facility] [place] [address] [place] [address] Marimar Del Castillo MD [address] [place] [address] Scheduled Procedures Name Priority Associated Diagnoses Date/Ti ct ESOPHAGOGASTRODUODENOSCOPY ( EGD), FLEXIBLE, TRANSORAL, DIAGNOSTIC Cholangitis 04/02/2024 3:30 PM EST ENDOSCOPIC RETROGRADE CHOLANGIOPANCREATOGRAPHY (ERCP) DIAGNOSTIC Cholangitis 04/02/2024 3:30 PM EST ENDOSCOPIC RETROGRADE CHOLANGIOPANCREATOGRAPHY (ERCP) DIAGNOSTIC [...] Depression Screening 03/02/2025 03/02/2024 GFR 04/02/2025 04/02/2024, 01/0 11/2024, 04/01/2024, Additional history exists DTap/Tdap Vaccines [...] this encounter Medical Devices Implanted Type Area Ems Instructor Device Identifier Shelf Expiration Date Model / Serial / Lot Stent Bili Duodenal [id number] - [id number] Implanted:Qty: 1 on 01/16/2024 by Jose E Bai MD at [facility]OSCOPY [facility] N/A: Stomach [employer] 12/02/2025 PBD-1031-1 007 / / [id number] documented as of this encounter Additional Health [...] Power of Attor ila? No Care Teams Certified Court/Medical Interpreter Relationship Specialty Start Date End Date Pedro Luis Bowens DO [address] [place] [address] PCP - General Internal Medicine 09/09/23 documented as of this encounter
--- OUTSIDE RECORDS SUMMARY | 2024-04-25 18:03 | External Medical Summary ---
Author Name Unknown Address Unknown Organization K01:[facility] - [address] [place] [address] Laboratory Report Ordering Provider Test Date Status ZAKIA PALMA 04/02/2024 17:12:12 Final Observation Date Value Abnormality Reference (Units) Status Source 04/02/2024 17:12:12 Semi-formed Final Clostridioides difficile toxin and BI-[id number] strain DNA panel - Stool by [facility] with probe detection 04/02/2024 17:12:12 Negative. No C. difficile toxin B gene DNA detected by PCR (Amplified Probe). Negative Final Performing Location LAB[facility]ATORY [facility] - [address] [place] [address]
--- OUTSIDE RECORDS SUMMARY | 2024-04-25 18:03 | External Medical Summary ---
Author Name Unknown Address Unknown Organization K01:[facility] [place] [address] [place] [address] Laboratory Report Ordering Provider Test Date Status SAIRA VELAZQUEZ 04/03/2024 07:34:00 Final Observation Date Value Abnormality Reference (Units ) Status Albumin 04/03/2024 07:34:00 2.4 Below low normal 3.8-5.0 (g/dL) Final AST (Aspartate aminotransferase) 04/03/2024 07:34:00 109 Above high normal 10-50 (U/L) Final Alk Phos 04/03/2024 07:34:00 641 Above high normal 35-130 (U/L) Final ALT (Alanine aminotransferase) 04/03/2024 07:34:00 62 Above high normal 10-50 (U/L) Final Bilirubin, Total 04/03/2024 07:34:00 1.3 Above high normal <=1.2 (mg/dL) Final Bilirubin, Direct 04/03/2024 07:34:00 1.0 Above high normal 0.0-0.3 (mg/dL) Final Protein 04/03/2024 07:34:00 5.5 Below low normal 6.0-8.3 (g/dL) Final Performing Location [facility] - [address] [place] [address]
--- OUTSIDE RECORDS SUMMARY | 2024-04-25 18:03 | External Medical Summary ---
Author Name Unknown Address Unknown Organization : Laboratory Report Ordering Provider Test Date Status DELFINO VELÁSQUEZ 04/02/2024 11:59:59 Final Observation Date Value Abnormality Reference (Units ) Status Glucose Point of Care 04/02/2024 11:59:59 101 70-120 (mg/dL) Final Performing Location
--- OUTSIDE RECORDS SUMMARY | 2024-04-25 18:03 | External Medical Summary | Summary of Care ---
Author Name Unknown Organization [facility] Address [address] [place] [address] Phone [phone] Care Team Providers Care Clinical Social Worker Name Role Phone Pedro Luis Bowens DO Primary Care Provider [phone] Reason for Visit * Reason Onset Date Comments Order Request 03/26/2024 Encounter Details Date Type Department Care Team (Late st Contact Info) Description 03/26/2024 Telephone Gastroenterology, [facility] [address] [place] [address] Jose E Bai MD [address] [place] [address] Order Request Allergies Active Allergy Reactions Criticality [...] Cap by mouth daily before breakfast. Suspended [employer] Ultra 2 w/Device KitIndications:T ype 2 diabetes [...] Release 12 HourIndications: Coronary artery disease of [place] artery of [place] heart with stable angina pectoris ([facility]) TAKE ONE TABLET BY MOUTH [...] less than 7.0% ([facility]) Take 1 Tablet by mouth [...] mcgIndications:Vitamin B 12 deficiency 1000 mcg IM [id number] 03/23/2024 12/26/2026 Active documented as of this encounter (statuses as of 04/02/2024) Active Problems Problem Noted Date Diagnosed Date Acute cholecystitis 04/02/2024 Sepsis without acute organ dysfunction 01/09/202 5 Pancytopenia 04/01/2024 Secondary malignant neoplasm of liver and intrahepatic bile duct 02/17/2024 Malignant neoplasm of head of pancreas 4 Metastasis from pancreatic cancer 01/28/2024 Encounter for antineoplastic chemotherapy 2023 Atherosclerosis of [place] ar teries of extremities with rest pain, bilateral legs 11/08/2023 Pulmonary hypertension, unspecified 07/17/2022 B12 deficiency 03/22/2022 Moderate aortic stenosis 11/28/2021 Occupational exposure to noise 09/27/2020 Coronary artery disease of n ative artery of [place] heart with stable angina pectoris 09/17/2019 Gastroesophageal [...] Per HTN Protocol #27. [employer] Other*[id number] 09/23/2009 05/01/2016 Overview (09/23/2009): Study Titile: Genomic Markers for Patients with Cardiovascular Disease Project #[id number] PI: Estela Sandoval MD Please call [phone] with study related questions Dyslipidemia, goal LDL [...] 04/02/2024 1:47 PM EST Patient admitted to [facility]. ERCP is scheduled for today * Telephone [...] 04/06/2024 9:20 AM EST Office Visit Family [address], [place] 293 [place] [address] Pedro Luis Bowens DO 293 [facility] [place] [address] 04/17/2024 9:30 AM EST Laboratory Laboratory, [facility] [address] [place] [phone] [facility] 132 [facility] [place] [address] 04/17/2024 10:00 AM EST Imaging Radiology [facility] 1st [facility] [address] [place] [address] 04/21/2024 8:00 AM EST [facility] Room [facility] [address] [place] [phone] Jose E Bai MD [address] [place] [address] 04/21/2024 8:00 AM EST - 04/21/2024 8:45 AM EST Surgery ENDO [facility], Endoscopy Room [facility] [address] [place] [address] Jose E Bai MD [address] [place] [address] ENDOSCOPIC RETROGRADE CHOLANGIOPANCREATOGRAPHY (ERCP) DIAGNOSTIC 04/28/2024 9:30 AM EST Office [facility] [place] [address] [place] [phone] Marimar Del Castillo MD [address] [place] [address] Scheduled Procedures Name Priority Associated Diagnoses Date/Ti ne ESOPHAGOGASTRODUODENOSCOPY ( EGD), FLEXIBLE, TRANSORAL, DIAGNOSTIC Cholangitis [...] this encounter Medical Devices Implanted Type Area Interactive Multimedia Designer Device Identifier Shelf Expiration Date Model / Serial / Lot Stent Bili Duodenal [id number] - [id number] Implanted:Qty: 1 on 01/16/2024 by Jose E Bai MD at ENDOSCOPY [facility] N/A: Stomach [employer] 12/02/2025 D-1031-1 007 / / [id number] documented as of this encounter Additional Health [...] Power of Attor ila? No Care Teams Clinical Social Worker Relationship Specialty Start Date End Date Pedro Luis Bowens DO [address] [facility] [address] PCP - General Internal Medicine 09/09/23 documented as of this encounter
--- OUTSIDE RECORDS SUMMARY | 2024-04-25 18:03 | External Medical Summary ---
Author Name Unknown Address Unknown Organization K01:LABORATORY [facility] - [address] [place] [address] Laboratory Report Ordering Provider Test Date Status EVARISTO MARMOLEJO 04/02/2024 04:58:00 Final Observation Date Value Abnormality Reference (Units ) Status Lactic Acid 04/02/2024 04:58:00 2.1 Above high normal 0.4-2.0 (mmol/L) Final Performing Location LAB[facility]ORY [facility] - [address] [place] [address]
--- OUTSIDE RECORDS SUMMARY | 2024-04-25 18:03 | External Medical Summary ---
Author Name Unknown Address Unknown Organization K01:[facility] - [facility] [address] [facility] [address] Laboratory Report Ordering Provider Test Date Status EVARISTO MARMOLEJO 04/02/2024 04:58:00 Final Observation Date Value Abnormality Reference (Units ) Status WBC, Total 04/02/2024 04:58:00 29.75 Above high normal 4.00-10.80 (K/uL) Final RBC 04/02/2024 04:58:00 2.73 4.50-5.25 (M/uL) Final Hemoglobin 04/02/2024 04:58:00 7.8 Below low normal 14.0-16.8 (g/dL) Final HCT 04/02/2024 04:58:00 24.5 Below low normal 40.0-48.4 (%) Final MCV 04/02/2024 04:58:00 89.7 82.0-99.5 (fL) Final MCH 04/02/2024 04:58:00 28.6 27.0-34.0 (pg) Final MCHC 04/02/2024 04:58:00 31.8 32.0-36.0 (g/dL) Final RDW 04/02/2024 04:58:00 17.2 11.5-15.5 (%) Final Platelets 04/02/2024 04:58:00 274 140-400 (K/uL) Final MPV 04/02/2024 04:58:00 8.8 6.6-11.1 (fL) Final Nucleated erythrocytes/100 leukocytes [Ratio] in Blood by Automated count 04/02/2024 04:58:00 0 <=0 (/100 WBCs) Final Performing Location [facility] [place] [address] [place] [address]
--- OUTSIDE RECORDS SUMMARY | 2024-04-25 18:03 | External Medical Summary ---
Author Name Unknown Address Unknown Organization K01:LABORATORY [facility] - [address] [place] [address] Laboratory Report Ordering Provider Test Date Status EVARISTO MARMOLEJO 04/02/2024 18:24:00 Final Observation Date Value Abnormality Reference (Units ) Status Lactic Acid 04/02/2024 18:24:00 1.6 0.4-2.0 (mmol/L) Final Performing Location LABORATORY C - [address] [place] [address]
--- OUTSIDE RECORDS SUMMARY | 2024-04-25 18:03 | External Medical Summary | Summary of Care ---
Author Name Unknown Organization [facility] Address [address] [place] [address] Phone [phone] Care Team Providers Care Refrigerator Car Icer Name Role Phone Pedro Luis Bowens DO Primary Care Provider [phone] Reason for Visit * Reason Comments Retrieval Encounter Details Date Type Department Care Team (Late st Contact Info) Description 04/01/2024 10:35 PM EST Documentation [facility] [place] [address] [place] [address] 2, [facility] [address] [place] [address] Pneumonia of right upper lobe due to [...] Release 12 HourIndications: Coronary artery disease of hamilton artery of hamilton heart with stable angina pectoris ([facility]) TAKE ONE TABLET BY MOUTH TWICE [...] less than 7.0% ([facility]) Take 1 Tablet by mouth in the morning. Before breakfast. 90 Tablet 2 024 Suspended Lidocaine Viscous HCl 2 % Mouth/Throat Solution Swish and spit 15 mL as needed for Pain, Mild (mouth discomfort). 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 [employer] Other*[id number] 09/23/2009 05/01/2016 Overview (09/23/2009): Study Titile: Genomic Markers for Patients with Cardiovascular Disease Project #[id number] PI: Estela Sandoval MD Please call [phone] with study related questions Dyslipidemia, goal LDL [...] of this encounter Progress Notes * Armando Kelley RN - 04/02/2024 3:19 AM EST MEDICARE AMBULANCE INFORMATION SHEET Patient Admitted as an Inpatient: yes Certifying Physician/Ordering Service:[facility] ED Physician - Rajinder Cook M.D. [facility] [address] [place] [address] Point of Lamp Tester And Inspector (zip code required): Hospital - [facility] - [address] [place] [address] [address]; [place] [address] Destination (Specify Name/Address): [facility] - [address] [facility] [address]; [place] [address] Patient transported to nearest facility (capable of mgmt for Pt's condition): YES Total number of Loaded Miles: 79 miles Mode of Transport: Ground ALS1 ALS Assessment (Grain I Farmworker) IV ALS Medication Completed by: Armando Kelley, RN documented in this encounter Plan of Treatment Upcoming Encounters Date Type Department Care Team (Latest Contact Info) Description 04/06/2024 9:20 AM EST Office Visit Family Practice [address], [place] [address] [facility] [place] [address] Pedro Luis Bowens, [address] [facility] [place] [address] 04/17/2024 9:30 AM EST Laboratory Laboratory, [facility] [address] [facility] [place] [id number] [facility] [address] [facility] [place] [address] 04/17/2024 10:00 AM EST Imaging Radiology [facility] [address] [facility] [place] [address] 04/21/2024 8:00 AM EST Hospital Encounter ENDO OSSC, Endoscopy Room [facility] [address] [place] [id number] Jose E Bai MD [address] [place] [address] 04/21/2024 8:00 AM EST - 04/21/2024 8:45 AM EST Surgery ENDO OSSC, Endoscopy Room [facility] [address] [place] [id number] Jose E Bai MD [address] [place] [address] ENDOSCOPIC RETROGRADE CHOLANGIOPANCREATOGRAPHY (ERCP) DIAGNOSTIC 04/28/2024 9:30 AM EST Office Visit Hematology/Oncol ogy Misty [place] [address] [facility] [place], [place] [address] Marimar Del Castillo MD [address] [facility] [place] [address] Scheduled Procedures Name Priority Associated Diagnoses Date/Ti [...] Screening 03/02/2025 03/02/2024 GFR 04/02/2025 04/02/2024, 01/0 10/2024, 03/20/2024, Additional history exists DTap/Tdap Vaccines (3 - [...] this encounter Medical Devices Implanted Type Area Renal Dietitian Device Identifier Shelf Expiration Date Model / Serial / Lot Stent Bili Duodenal [id number] - [id number] Implanted:Qty: 1 on 01/16/2024 by Jose E Bai MD at ENDOSCOPY [facility] N/A: Stomach Trenergi 12/02/2025 D-[id number] [id number] / / [id number] documented as of this encounter Visit Diagnoses [...] Power of Attor ila? No Care Teams Refrigerator Car Icer Relationship Specialty Start Date End Date Pedro Luis Bowens DO [address] [facility] [place] [address] PCP - General Internal Medicine 09/09/23 documented as of this encounter
--- OUTSIDE RECORDS SUMMARY | 2024-04-25 18:04 | External Medical Summary ---
Author Name Unknown Address Unknown Organization K01:LABORATORY [facility] [place] - [address] [place] [address] Laboratory Report Ordering Provider Test Date Status EVARISTO MARMOLEJO 04/02/2024 01:58:00 Final Warfarin Therapy
INR: 2 .0-3.0 conventional anticoagulation
INR: 2.5- 3.5 high intensity anticoagulation Observation Date Value Abnormality Reference (Units ) Status PT 04/02/2024 01:58:00 16.8 Above high normal 11 .6-15.2 (seconds) Final INR 04/02/2024 01:58:00 1.3 Above high normal 0. 8-1.2 Final Performing Location LABORATORY [facility] [place] - [address] [place] [address]
--- OUTSIDE RECORDS SUMMARY | 2024-04-25 18:04 | External Medical Summary ---
Author Name Unknown Address Unknown Organization K01:[facility] [place] [address] [facility] [address] Laboratory Report Ordering Provider Test Date Status EVARISTO MARMOLEJO 04/02/2024 01:58:00 Final Observation Date Value Abnormality Reference (Units ) Status Calcium.ionized [Moles/volume] in Blood by Ion-selective membrane electrode (ISE) 04/02/2024 01:58:00 1.24 1.13-1.32 (mmol/L) Final Performing Location [facility] [place] [place] [address] [place] [address]
--- OUTSIDE RECORDS SUMMARY | 2024-04-25 18:04 | External Medical Summary ---
Author Name Unknown Address Unknown Organization : Laboratory Report Ordering Provider Test Date Status EVARISTO MARMOLEJO 04/02/2024 01:58:00 Final Observation Date Value Abnormality Reference (Units ) Status Performing Location
--- OUTSIDE RECORDS SUMMARY | 2024-04-25 18:04 | External Medical Summary ---
Author Name Unknown Address Unknown Organization K01:LABORATORY [facility] [place] - [address] [place] [address] Laboratory Report Ordering Provider Test Date Status EVARISTO MARMOLEJO 04/02/2024 01:58:00 Final Observation Date Value Abnormality Reference (Units ) Status Albumin 04/02/2024 01:58:00 2.4 Below low normal 3.8-5.0 (g/dL) Final AST (Aspartate aminotransferase) 04/02/2024 01:58:00 142 Above high normal 10-50 (U/L) Final Alk Phos 04/02/2024 01:58:00 821 Above high normal 35-130 (U/L) Final ALT (Alanine aminotransferase) 04/02/2024 01:58:00 60 Above high normal 10-50 (U/L) Final Bilirubin, Total 04/02/2024 01:58:00 2.3 Above high normal <=1.2 (mg/dL) Final Bilirubin, Direct 04/02/2024 01:58:00 1.9 Above high normal 0.0-0.3 (mg/dL) Final Protein 04/02/2024 01:58:00 5.5 Below low normal 6.0-8.3 (g/dL) Final Performing Location LABORATORY [facility] - [address] [place] [address]
--- OUTSIDE RECORDS SUMMARY | 2024-04-25 18:04 | External Medical Summary ---
Author Name Unknown Address Unknown Organization K01:LABORATORY [facility] [place] - [address] [place] [address] Laboratory Report Ordering Provider Test Date Status EVARISTO MARMOLEJO 04/02/2024 02:01:50 Final Observation Date Value Abnormality Reference (Units ) Status Methicillin resistant Staphylococcus aureus (MRSA) DNA [Presence] in Nose by LAXMI with probe detection 04/02/2024 02:01:50 Negative Negative Final No Methicillin resistant Sta phylococcus aureus detected by PCR (amplified probe). Performing Location LABORATORY [facility] [place] - [address] [place] [address]
--- OUTSIDE RECORDS SUMMARY | 2024-04-25 18:04 | External Medical Summary ---
Author Name Unknown Address Unknown Organization K01:[facility] [place] [address] [place] [address] Laboratory Report Ordering Provider Test Date Status EVARISTO MARMOLEJO 04/02/2024 01:58:00 Final Observation Date Value Abnormality Reference (Units ) Status Lactic Acid 04/02/2024 01:58:00 2.4 Above high normal 0.4-2.0 (mmol/L) Final Performing Location [facility] [place] [address] [place] [address]
--- OUTSIDE RECORDS SUMMARY | 2024-04-25 18:04 | External Medical Summary ---
Author Name Unknown Address Unknown Organization K01:LABORATORY [facility] [place] - [facility] [address] [facility] [address] Laboratory Report Ordering Provider Test Date Status JUJU KYLE 04/01/2024 09:50:17 Final Observation Date Value Abnormality Reference (Units ) Status WBC, Total 04/01/2024 09:50:17 15.04 Above high normal 4.00-10.80 (K/uL) Final RBC 04/01/2024 09:50:17 3.01 4.50-5.25 (M/uL) Final Hemoglobin 04/01/2024 09:50:17 8.7 Below low normal 14.0-16.8 (g/dL) Final HCT 04/01/2024 09:50:17 27.4 Below low normal 40.0-48.4 (%) Final MCV 04/01/2024 09:50:17 91.0 82.0-99.5 (fL) Final MCH 04/01/2024 09:50:17 28.9 27.0-34.0 (pg) Final MCHC 04/01/2024 09:50:17 31.8 32.0-36.0 (g/dL) Final RDW 04/01/2024 09:50:17 17.7 11.5-15.5 (%) Final Platelets 04/01/2024 09:50:17 382 140-400 (K/uL) Final MPV 04/01/2024 09:50:17 9.4 6.6-11.1 (fL) Final Nucleated erythrocytes/100 leukocytes [Ratio] in Blood by Automated count 04/01/2024 09:50:17 0 <=0 (/100 WBCs) Final Performing Location LABORATORY [facility] - [address] [place] [address]
--- OUTSIDE RECORDS SUMMARY | 2024-04-25 18:04 | External Medical Summary ---
Author Name Unknown Address Unknown Organization : Laboratory Report Ordering Provider Test Date Status DELFINO VELÁSQUEZ 04/02/2024 02:04:31 Final Observation Date Value Abnormality Reference (Units ) Status Glucose Point of Care 04/02/2024 02:04:31 82 70-120 (mg/dL) Final Performing Location
--- OUTSIDE RECORDS SUMMARY | 2024-04-25 18:04 | External Medical Summary ---
Author Name Unknown Address Unknown Organization K01:LABORATORY [facility] [place] - [facility] [address] [place] [place] [address] Laboratory Report Ordering Provider Test Date Status EVARISTO MARMOLEJO 04/02/2024 04:58:00 Final Observation Date Value Abnormality Reference (Units ) Status BUN 04/02/2024 04:58:00 21 Above high normal 6-20 (mg/dL) Final Creatinine 04/02/2024 04:58:00 1.2 0.6-1.2 (mg/dL) Final Glomerular filtration rate/1.73 sq M.predicted [Volume Rate/Area] in Serum, Plasma or Blood by Creatinine-based formula (CKD-EPI) 04/02/2024 04:58:00 62 >=60 (mL/min) Final eGFR is calculated based on the CKD-EPI 2020 equation. Sodium 04/02/2024 04:58:00 131 Below low normal 135 -146 (mmol/L) Final Potassium 04/02/2024 04:58:00 4.3 3.5-5.1 (m mol/L) Final Cl 04/02/2024 04:58:00 99 98-107 (mm ol/L) Final CO2 04/02/2024 04:58:00 20 Below low normal 22- 32 (mmol/L) Final Anion gap 04/02/2024 04:58:00 12 7-15 (mmol /L) Final Glucose 04/02/2024 04:58:00 105 70-120 (mg /dL) Final Calcium 04/02/2024 04:58:00 8.5 8.4-10.2 ( mg/dL) Final Performing Location LABORATORY [facility] [place] - [address] [place] [address]
--- OUTSIDE RECORDS SUMMARY | 2024-04-25 18:04 | External Medical Summary ---
Author Name Unknown Address Unknown Organization K01:[facility]ATORY [facility] - [address] [place] [address] Laboratory Report Ordering Provider Test Date Status EVARISTO MARMOLEJO 04/02/2024 01:58:00 Final Observation Date Value Abnormality Reference (Units ) Status ABO 04/02/2024 01:58:00 A Final RH 04/02/2024 01:58:00 Positive Final Performing Location [facility]ORY [facility] - [address] [place] [address]
--- OUTSIDE RECORDS SUMMARY | 2024-04-25 18:04 | External Medical Summary ---
Author Name Unknown Address Unknown Organization K01:[facility] [place] [address] [place] [address] Laboratory Report Ordering Provider Test Date Status FRANCIEEVARISTO MEHTA 04/02/2024 01:58:00 Final Observation Date Value Abnormality Reference (Units ) Status Bacteria identified in Specimen by Culture 04/02/2024 01:58:00 No growth Final Test: Culture, Blood (Site 2 )
Specimen Source: Blood, Venous
Specimen Type: Blood
Specimen Date: 04/02/2024157
Result Date: 04/07/2024 040
Result Status: Final result
Resulting Lab: [facility]
[address]
[place] [address]

CULTURE

No growth

null Performing Location [facility] [place] [address] [place] [address]
--- OUTSIDE RECORDS SUMMARY | 2024-04-25 18:04 | External Medical Summary ---
Author Name Unknown Address Unknown Organization K01:[facility] [address] [facility] [address] Laboratory Report Ordering Provider Test Date Status FRANCIEARCADIOLOERA 04/02/2024 02:51:54 Final Observation Date Value Abnormality Reference (Units ) Status Color of Urine by Auto 04/02/2024 02:51:54 Light Yellow Colorless, Light Yellow, Yellow, Dark Yellow Final Clarity, Urine 04/02/2024 02:51:54 Clear Clear Final Glucose [Mass/volume] in Urine by Automated test strip 04/02/2024 02:51:54 Negative Negative (mg/dL) Final Bilirubin.total [Presence] in Urine by Automated test strip 04/02/2024 02:51:54 Negative Negative Final Ketones [Mass/volume] in Urine by Automated test strip 04/02/2024 02:51:54 Negative Negative (mg/dL) Final Specific gravity, Urine 04/02/2024 02:51:54 1.009 1.003-1.030 Final Hemoglobin [Presence] in Urine by Automated test strip 04/02/2024 02:51:54 Small Abnormal Negative Final pH, Urine 04/02/2024 02:51:54 6.0 5.0-7.5 (Units) Final Protein [Mass/volume] in Urine by Automated test strip 04/02/2024 02:51:54 Trace Abnormal Negative (mg/dL) Final Urobilinogen [Mass/volume] in Urine by Automated test strip 04/02/2024 02:51:54 Normal Normal (mg/dL) Final Nitrite [Presence] in Urine by Automated test strip 04/02/2024 02:51:54 Negative Negative Final Leukocyte esterase [Presence] in Urine by Automated test strip 04/02/2024 02:51:54 Negative Negative Final RBC, Urine 04/02/2024 02:51:54 0-2 0-2 (/HPF) Final WBC, Urine 04/02/2024 02:51:54 0-2 0-2 (/HPF) Final Bacteria [#/area] in Urine sediment by Microscopy high power field 04/02/2024 02:51:54 0-25 0-25 (/HPF) Final Calcium oxalate crystals [#/area] in Urine sediment by Microscopy high power field 04/02/2024 02:51:54 1-4 Abnormal None (/HPF) Final CULTURE, URINE - [facility] 04/02/2024 02:51:54 Final Culture not indicated by uri nalysis results\X09\ Performing Location [facility] [address] [facility] [address]
--- OUTSIDE RECORDS SUMMARY | 2024-04-25 18:04 | External Medical Summary ---
Author Name Unknown Address Unknown Organization K01:[facility] [place] [address] [place] [address] Laboratory Report Ordering Provider Test Date Status EVARISTO MARMOLEJO 04/02/2024 04:58:00 Final Observation Date Value Abnormality Reference (Units ) Status Troponin T 04/02/2024 04:58:00 533 Above upper panic limits <=22 (ng/L) Final Performing Location LABORATORY C - [address] [place] [address]
--- OUTSIDE RECORDS SUMMARY | 2024-04-25 18:04 | External Medical Summary ---
Author Name Unknown Address Unknown Organization K01:[facility] [place] [address] [place] [address] Laboratory Report Ordering Provider Test Date Status JUJU KYLE 04/01/2024 09:50:17 Final Observation Date Value Abnormality Reference (Units ) Status BUN 04/01/2024 09:50:17 16 6-20 (mg/dL) Final Creatinine 04/01/2024 09:50:17 0.8 0.6-1.2 (mg/dL) Final Glomerular filtration rate/1.73 sq M.predicted [Volume Rate/Area] in Serum, Plasma or Blood by Creatinine-based formula (CKD-EPI) 04/01/2024 09:50:17 89 >=60 (mL/min) Final eGFR is calculated based on the CKD-EPI 2020 equation. Sodium 04/01/2024 09:50:17 127 Below low normal 135 -146 (mmol/L) Final Potassium 04/01/2024 09:50:17 4.6 3.5-5.1 (m mol/L) Final Cl 04/01/2024 09:50:17 94 Below low normal 98- 107 (mmol/L) Final CO2 04/01/2024 09:50:17 22 22-32 (mmo l/L) Final Anion gap 04/01/2024 09:50:17 11 7-15 (mmol /L) Final Glucose 04/01/2024 09:50:17 156 Above high normal 70 -120 (mg/dL) Final Albumin 04/01/2024 09:50:17 2.6 Below low normal 3.8 -5.0 (g/dL) Final AST (Aspartate aminotransferase) 04/01/2024 09:50:17 63 Above high normal 10-50 (U/L) Final Alk Phos 04/01/2024 09:50:17 969 Above high normal 35 -130 (U/L) Final Bilirubin, Total 04/01/2024 09:50:17 1.9 Above high no rmal <=1.2 (mg/dL) Final Calcium 04/01/2024 09:50:17 8.6 8.4-10.2 ( mg/dL) Final Protein 04/01/2024 09:50:17 5.2 Below low normal 6.0 -8.3 (g/dL) Final ALT (Alanine aminotransferase) 04/01/2024 09:50:17 44 10-50 (U/L) Alexys amador Performing Location [facility] [place] [address] [facility] [address]
--- OUTSIDE RECORDS SUMMARY | 2024-04-25 18:04 | External Medical Summary ---
Author Name Unknown Address Unknown Organization K01:LABORATORY [facility] [place] - [address] [place] [address] Laboratory Report Ordering Provider Test Date Status EVARISTO MARMOLEJO 04/02/2024 01:58:00 Final Observation Date Value Abnormality Reference (Units ) Status Troponin T 04/02/2024 01:58:00 580 Above upper panic limits <=22 (ng/L) Final Performing Location LABORATORY [facility] - [address] [place] [id number]
--- OUTSIDE RECORDS SUMMARY | 2024-04-25 18:04 | External Medical Summary | Summary of Care ---
Author Name Unknown Organization [facility] Address [address] [place] [address] Phone [phone] Care Team Providers Care Ladies Underwear Operator Name Role Phone Pedro Luis Bowens DO Primary Care Provider [phone] Encounter Details Date Type Department Care Team (Late st Contact Info) Description 04/01/2024 10:15 AM EST Nurse Only Family Practice [address] [facility] [address] [place] [address] College, Nurse [facility] Prac 65 [facility] [address] [place] [address] Allergies Active Allergy Reactions Criticality Noted Date Comments Iodinated Contrast Media Rash 08/29/2009 Pt got a rash after his cath on 08/23/09 Levofloxacin 11/03/2009 Nausea jittery Lisinopril 10/01/2013 Cough Rash documented as of this encounter (statuses as of 04/01/2024) Medications ASPIRIN 81 MG PO CHEW Take [...] Release 12 HourIndications:C oronary artery disease of atka artery of atka heart with stable angina pectoris (FORMERLY SELF [...] mcgIndications:Vitamin B 12 deficiency 1000 mcg IM [id number] 03/23/2024 12/26/2026 Active documented as of this encounter (statuses as of 04/01/2024) Active Problems Problem Noted Date Diagnosed Date Pancytopenia 04/01/2024 Secondary malignant neoplasm of liver and intrahepatic bile duct 02/17/2024 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 [employer] Other*[id number] 09/23/2009 05/01/2016 Overview (09/23/2009): Study Titile: Gen[employer] Markers for Patients with Cardiovascular Disease Project #[id number] PI: Estela Sandoval MD Please call [phone] with study related questions Dyslipidemia, goal LDL below 70 08/30/2009 02/26/2013 HTN, goal below 130/80 08/30/200911/14 Overview: Per HTN Protocol #27. History of drug allergy 08/29/200906/23 Dyslipidemia, goal LDL below 70 08/23/2009 02/26/2013 ACEI/ARB contraindicated 09/2013 documented as of this encounter (statuses as of 04/01/2024) Immunizations Name Administration Dates Next Due COVID-19 [...] No 03/02/2024 Does the household have a [facility] source of income? 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); HTN, goal below 140/90; 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); Aortocoronary bypass status; B12 deficiency; Benign prostatic hyperplasia without lower urinary tract symptoms; Gastroesophageal reflux disease without esophagitis; Moderate aortic stenosis; Pure hypercholesterolemia 04/06/2024 9:20 AM EST Office Visit Family [facility] [address] [place] [address] [facility] [place] [address] Pedro Luis Bowens, 293 [facility] [place] [address] 04/17/2024 9:30 AM EST Laboratory Laboratory, [facility] [address] [facility] [place] [phone] [facility] [address] [facility] [place] [address] 04/17/2024 10:00 AM EST Imaging Radiology [address] [place] [address] 04/21/2024 8:00 AM EST Hospital Encounter ENDO [facility], Endoscopy Room [facility] [address] [place] [address] Jose E Bai MD [address] [place] [address] 04/21/2024 8:00 AM EST - 04/21/2024 8:45 AM EST Surgery ENDO [facility], Endoscopy Room [facility] [address] [place] [address] Jose E Bai MD [address] [place] [address] ENDOSCOPIC [facility]ROGRADE CHOLANGIOPANCREATOGRAPHY (ERCP) DIAGNOSTIC 04/28/2024 9:30 AM EST Office Visit Hematology/Oncol ogy Misty Conroy [place] [address] [facility] [place], [place] [address] Marimar Del Castillo MD [address] [facility] [place] [address] Scheduled Procedures Name Priority Associated Diagnoses Date/Ti [...] this encounter Medical Devices Implanted Type Area Embossing Press Operator Molded Goods Device Identifier Shelf Expiration Date Model / Serial / Lot Stent Bili Duodenal [id number] - [id number] Implanted:Qty: 1 on 01/16/2024 by Jose E Bai MD at ENDOSCOPY [facility] N/A: [employer] 12/02/2025 [id number] / / [id number] documented as of this encounter Procedures Procedure Name Priority Date/Time Associated Diagnosis Comments XR CHEST 2 VIEWS Routine 04/01/2024 10:1 9 AM EST SOB (shortness of breath) documented in this encounter Results * XR CHEST 2 VIEWS (04/01/2024 10:19 AM EST) Anatomical Region Laterality Modality Chest Digital Radiogra phy 04/01/2024 10:3 0 AM EST Impressions 04/01/2024 10:27 AM EST IMPRESSION Right upper lobe pneumonia. Narrative 04/01/2024 10:27 AM EST EXAM XR CHEST 2 VIEWS - 04/01/2024 10:19 am HISTORY "sob" TECHNIQUE Frontal and lateral views of the chest were obtained. COMPARISON 03/03/2019 FINDINGS There is a right central venous port extending into the SVC. There is an infiltrate in the right upper lobe, consistent with pneumonia. No pleural effusion or pneumothorax. Normal heart size. Median sternotomy wires and mediastinal clips. Procedure Note Dane Mckinley MD - 04/01/2024 EXAM XR CHEST 2 VIEWS - 04/01/2024 10:19 am HISTORY "sob" TECHNIQUE Frontal and lateral views of the chest were obtained. COMPARISON 03/03/2019 FINDINGS There is a right central venous port extending into the SVC. There is an infiltrate in the right upper lobe, consistent with pneumonia.No pleural effusion or pneumothorax. Normal heart size. Mediansternotomy wires and mediastinal clips. IMPRESSION IMPRESSION Right upper lobe pneumonia. 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) Pancytopenia (HCC) Other pancytopenia Atherosclerosis of atka arteries of extremities with rest pain, bilateral legs (HCC) Pulmonary hypertension, unspecified (HCC) 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) Type II or unspecified type diabetes mellitus with peripheral circulatory disorders, not stated as uncontrolled HTN, goal below 140/90 Unspecified essential hypertension 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 No Care Teams Ladies Underwear Operator Relationship Specialty Start Date End Date Pedro Luis Bowens DO [address] [place] [address] PCP - General Internal Medicine 09/09/23 documented as of this encounter
--- OUTSIDE RECORDS SUMMARY | 2024-04-25 18:04 | External Medical Summary ---
Author Name Unknown Address Unknown Organization [id number]:[facility] [place] [address] [address] Laboratory Report Ordering Provider Test Date Status EVARISTO MARMOLEJO 04/02/2024 01:58:00 Final Observation Date Value Abnormality Reference (Units ) Status SYNC LEUKOCYTES IN BLOOD BY AUTOMATED COUNT 04/02/2024 01:58:00 38.04 Above high normal 4.00-10.80 (K/uL) Final Segs 04/02/2024 01:58:00 89.8 Above high normal 40.0-75.0 (%) Final Lymphs % 04/02/2024 01:58:00 2.2 Below low normal 18.0-42.0 (%) Final Monos 04/02/2024 01:58:00 3.2 1.0-11.0 (%) Final Eosinophils 04/02/2024 01:58:00 0.6 0.0-6.0 (%) Final Basos 04/02/2024 01:58:00 0.2 0.0-2.0 (%) Final Immature Granulocyte, Percent 04/02/2024 01:58:00 4.0 Above high normal 0.0-2.0 (%) Final Absolute Segs 04/02/2024 01:58:00 34.20 Above high normal 1.80-7.70 (K/uL) Final Lymphs, absolute 04/02/2024 01:58:00 0.83 Below low normal 1.00-4.80 (K/ul) Final Monos, Abs 04/02/2024 01:58:00 1.21 Above high normal 0.00-1.10 (K/uL) Final Eos, Abs 04/02/2024 01:58:00 0.21 0.00-0.70 (K/uL) Final Basos, Abs 04/02/2024 01:58:00 0.07 0.00-0.20 (K/uL) Final Immature Granulocytes, Number 04/02/2024 01:58:00 1.52 Above high normal 0.00-0.20 (K/uL) Final Performing Location [facility] [place] [address] [facility] [address]
--- OUTSIDE RECORDS SUMMARY | 2024-04-25 18:04 | External Medical Summary ---
Author Name Unknown Address Unknown Organization [id number]:[facility]ATORY [facility] [place] [facility] - [address] [place] [address] Laboratory Report Ordering Provider Test Date Status EVARISTO MARMOLEJO 04/02/2024 01:58:00 Final Observation Date Value Abnormality Reference (Units ) Status ABO 04/02/2024 01:58:00 A Final RH 04/02/2024 01:58:00 Positive Final RED BLOOD CELL ANTIBODY SCREEN 04/02/2024 01:58:00 Negative Final SPECIMEN EXPIRATION DATE 04/02/2024 01:58:00 04/05/2024 23:59 Final Performing Location LABORATORY [facility] [place] [facility] - [address] [place] [address]
--- OUTSIDE RECORDS SUMMARY | 2024-04-25 18:04 | External Medical Summary ---
Author Name Unknown Address Unknown Organization K01:[facility]ATORY [facility] - [address] [place] [address] Laboratory Report Ordering Provider Test Date Status EVARISTO MARMOLEJO 04/02/2024 01:58:00 Final Observation Date Value Abnormality Reference (Units ) Status Phosphate 04/02/2024 01:58:00 3.6 2.5-4.8 (m g/dL) Final Performing Location LABORATORY [facility] - [address] [place] [address]
--- OUTSIDE RECORDS SUMMARY | 2024-04-25 18:04 | External Medical Summary ---
Author Name Unknown Address Unknown Organization [id number]:[facility]ORY [facility] [place] - [facility] [address] [facility] [address] Laboratory Report Ordering Provider Test Date Status EVARISTO MARMOLEJO 04/02/2024 01:58:00 Final Observation Date Value Abnormality Reference (Units ) Status WBC, Total 04/02/2024 01:58:00 38.04 Above high normal 4.00-10.80 (K/uL) Final RBC 04/02/2024 01:58:00 3.10 4.50-5.25 (M/uL) Final Hemoglobin 04/02/2024 01:58:00 8.8 Below low normal 14.0-16.8 (g/dL) Final HCT 04/02/2024 01:58:00 27.5 Below low normal 40.0-48.4 (%) Final MCV 04/02/2024 01:58:00 88.7 82.0-99.5 (fL) Final MCH 04/02/2024 01:58:00 28.4 27.0-34.0 (pg) Final MCHC 04/02/2024 01:58:00 32.0 32.0-36.0 (g/dL) Final RDW 04/02/2024 01:58:00 17.2 11.5-15.5 (%) Final Platelets 04/02/2024 01:58:00 354 140-400 (K/uL) Final MPV 04/02/2024 01:58:00 9.0 6.6-11.1 (fL) Final Nucleated erythrocytes/100 leukocytes [Ratio] in Blood by Automated count 04/02/2024 01:58:00 0 <=0 (/100 WBCs) Final Performing Location LABORATORY [facility] [place] - [address] [place] [address]
--- OUTSIDE RECORDS SUMMARY | 2024-04-25 18:04 | External Medical Summary ---
Author Name Unknown Address Unknown Organization K01:[facility] - [address] [place] [address] Laboratory Report Ordering Provider Test Date Status EVARISTO MARMOLEJO 04/02/2024 01:58:00 Final Observation Date Value Abnormality Reference (Units ) Status Magnesium 04/02/2024 01:58:00 1.9 1.5-2.6 (m g/dL) Final Performing Location LAB[facility]ATORY [facility] - [address] [place] [address]
--- OUTSIDE RECORDS SUMMARY | 2024-04-25 18:04 | External Medical Summary ---
Author Name Unknown Address Unknown Organization [id number][place] [place] [facility] [address] [place] [address] Laboratory Report Ordering Provider Test Date Status EVARISTO MARMOLEJO 04/02/2024 01:58:00 Final Observation Date Value Abnormality Reference (Units ) Status BUN 04/02/2024 01:58:00 20 6-20 (mg/dL) Final Creatinine 04/02/2024 01:58:00 1.2 0.6-1.2 (mg/dL) Final Glomerular filtration rate/1.73 sq M.predicted [Volume Rate/Area] in Serum, Plasma or Blood by Creatinine-based formula (CKD-EPI) 04/02/2024 01:58:00 65 >=60 (mL/min) Final eGFR is calculated based on the CKD-EPI 2020 equation. Sodium 04/02/2024 01:58:00 130 Below low normal 135 -146 (mmol/L) Final Potassium 04/02/2024 01:58:00 4.5 3.5-5.1 (m mol/L) Final Cl 04/02/2024 01:58:00 98 98-107 (mm ol/L) Final CO2 04/02/2024 01:58:00 19 Below low normal 22- 32 (mmol/L) Final Anion gap 04/02/2024 01:58:00 13 7-15 (mmol /L) Final Glucose 04/02/2024 01:58:00 78 70-120 (mg /dL) Final Calcium 04/02/2024 01:58:00 9.0 8.4-10.2 ( mg/dL) Final Performing Location [facility] [place] [address] [place] [address]
--- OUTSIDE RECORDS SUMMARY | 2024-04-25 18:04 | External Medical Summary ---
Author Name Unknown Address Unknown Organization K01:LAB[facility]ATORY [facility] [place] - [address] [place] [address] Laboratory Report Ordering Provider Test Date Status EVARISTO MARMOLEJO 04/02/2024 01:58:00 Final Observation Date Value Abnormality Reference (Units ) Status Lipase 04/02/2024 01:58:00 7 Below low normal 13- 60 (U/L) Final Performing Location [facility]ORY [facility] [place] - [address] [place] [address]
--- OUTSIDE RECORDS SUMMARY | 2024-04-25 18:04 | External Medical Summary ---
Author Name Unknown Address Unknown Organization K01:[facility] - [address] [place] [address] Laboratory Report Ordering Provider Test Date Status FRANCIELOERA 04/02/2024 01:58:00 Final Observation Date Value Abnormality Reference (Units ) Status Bacteria identified in Specimen by Culture 04/02/2024 01:58:00 No growth Final Test: Culture, Blood
Spe cimen Source: Blood, Venous
Specimen Type: Blood
Specimen Date: 04/02/2024 015
Result Date: 04/07/2024 0401
Result Status: Final result
Resulting Lab: [facility] [place]
[address]
[place] [address]

CULTURE

No growth

null Performing Location LAB[facility]ATORY [facility] - [address] [place] [address]
--- OUTSIDE RECORDS SUMMARY | 2024-04-25 18:04 | External Medical Summary | Summary of Care ---
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 [facility] Does patient have multiple co-morbid conditions? Yes Does patient have P insurance? Yes Comments Is referral coming from Care Coordination and Integration? Yes Best source of contact for the patient:Patient Patient has remote monitoring device(s): No Connectivity in the home: Yes Reason for Visit * Reason Onset Date Comments Medication Question 03/31/2024 Advice 03/31/202403/31 Encounter Details Date Type Department Care Team (Late st Contact Info) Description 03/31/2024 Telephone Family Practice [address], [place] [address] [facility] [place] [address] Pedro Luis Bowens DO [address] [facility] [place] [address] Medication Question; Advice (03/31) Allergies Active Allergy Reactions Criticality Noted Date [...] Release 12 HourIndications:C oronary artery disease of suqu[place] artery of [place] heart with stable angina pectoris (HCC) TAKE ONE TABLET BY MOUTH TWICE A DAY 200 Tablet 3 4 4:58 PM EST 05/02/19 24 06/09/2 025 Active Isosorbide Mononitrate ER 60 MG [...] mcgIndications:Vitamin B 12 deficiency 1000 mcg IM [id number] 03/23/2024 12/26/2026 Active documented as of this encounter (statuses as of 04/01/2024) Active Problems Problem Noted Date Diagnosed Date Pancytopenia 04/01/2024 Secondary malignant neoplasm of liver and intrahepatic bile duct 02/17/2024 Malignant neoplasm of head of pancreas Metastasis from pancreatic cancer 01/28/2024 Encounter for antineoplastic chemotherapy 2023 Atherosclerosis of [place] ar teries of extremities with rest pain, bilateral legs 11/08/2023 Pulmonary hypertension, unspecified 07/17/2022 B12 deficiency 03/22/2022 Moderate aortic stenosis 11/28/2021 Occupational exposure to noise 09/27/2020 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 [employer] Other*[id number] 09/23/2009 05/01/2016 Overview (09/23/2009): Study Titile: Gen[employer] Markers for Patients with Cardiovascular Disease Project #[id number] PI: Estela Sandoval MD Please call [phone] with study related questions Dyslipidemia, goal LDL [...] encounter Miscellaneous Notes * Telephone Encounter - Linda Burkett LPN - 04/01/2024 12:21 PM EST Pt in for NV and had OV with Dr. Bowens this date. * Telephone Encounter - Linda Burkett LPN - 03/31/2024 5:01 PM EST Call placed to patient and relayed information from Dr. Bowens. Pt will hold Furosemide. Pt agreeable to NV tomorrow for ortho BP's. Pt under impression [facility] will be coming tomorrow. No confirmation that [facility] coming tomorrow - per Dr. Bowens, pt advised to come here. States he will be [place] 0930 tomorrow. 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 * Telephone Encounter - Pedro Luis Bowens DO - 03/31/2024 4:15 PM EST Hold Furosemide tonight Schedule visit on Nurse clinic * Telephone Encounter - Consuelo Ornelas LPN - 03/31/2024 3:32 PM EST Patient is aware and will comply. 143.0 lb Saturday Today is 146 lb (dressed and Saturday's was nude) Forgot to weigh himself any more Will forward to [facility] to do labs and visit along with positional bp's. Do you want patient to continue with current dose of lasix? * Telephone Encounter - Pedro Luis Bowens DO - 03/31/2024 2:01 PM EST Patient should have CBC and CMP done. Need orthostatic BP and weight See if he is weighting himself daily. See if [facility] can evaluate the patient. * Telephone Encounter - Consuelo Ornelas LPN - 03/31/2024 12:56 PM EST States has some chills, bp 97/50 pulse is 80 Dry mouth, swelling is down,dizzy when stands. States sob with exertion only, denies chest pain. Patient is concerned too much lasix. Thank you * Telephone Encounter - Venice Barr OSA - 03/31/2024 8:35 AM EST Michael is calling in because he is wondering how he knows if he is taking too much Furosemide. He can be reached at [phone]. 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); Pancytopenia (HCC); Atherosclerosis of suquamish arteries of extremities with rest pain, bilateral legs (HCC); Pulmonary hypertension, unspecified (HCC); 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); HTN, goal below 140/90; 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); Aortocoronary bypass status; B12 deficiency; Benign prostatic hyperplasia without lower urinary tract symptoms; Gastroesophageal reflux disease without esophagitis; Moderate aortic stenosis; Pure hypercholesterolemia 04/06/2024 9:20 AM EST Office Visit [facility] [address] [facility], [place] [address] [facility] [place] [address] Pedro Luis Bowens DO [address] [place] [address] 04/17/2024 9:30 AM EST Laboratory Laboratory, [facility] [address] [facility] [place] [phone] [facility] [address] [facility] [place] [address] 04/17/2024 10:00 AM EST Imaging Radiology [address] [place] [address] 04/21/2024 8:00 AM EST Hospital Encounter ENDO [facility], Endoscopy Room [facility] [address] [place] [phone] Jose E Bai MD [address] [place] [address] 04/21/2024 8:00 AM EST - 04/21/2024 8:45 AM EST Surgery ENDO [facility], Endoscopy Room [facility] [address] [place] [id number] Jose E Bai MD [address] [place] [address] ENDOSCOPIC RETROGRADE CHOLANGIOPANCREATOGRAPHY (ERCP) DIAGNOSTIC 04/28/2024 9:30 AM EST [facility] [address] [place] [id number] Marimar Del Castillo MD [address] [place] [address] Pending Results Name Type Priority Associated Diagnoses Date /Time COMPREHENSIVE METABOLIC PANEL Lab Routine Bilateral leg edema 04/01/2024 9:50 AM EST CBC Lab Routine Bilateral leg edema 04/01/2024 9:50 AM EST Scheduled Orders Name Type Priority Associated Diagnoses Orde r Schedule COMPREHENSIVE METABOLIC PANEL Lab Routine Bilateral leg edema Expected: 04/07/2024 (Approximate), Expires: 03/31/2025 CBC Lab Routine Bilateral leg edema Expected: 04/07/2024 (Approximate), Expires: 03/31/2025 Scheduled Procedures Name Priority Associated Diagnoses Date/Ti ri ENDOSCOPIC RETROGRADE CHOLANGIOPANCREATOGRAPHY (ERCP) DIAGNOSTIC Pancreatic mass Liver mass 04/21/2024 8:00 AM EST ENDOSCOPIC RETROGRADE CHOLANGIOPANCREATOGRAPHY (ERCP) W/STENT REMOVAL AND EXCHANGE; INC DILATION, GUIDE WIRE AND SPHINCTEROTOMY Pancreatic mass Liver mass 04/21/2024 8:00 AM EST Scheduled Referrals Name Type Priority Associated Diagnoses Orde r Schedule [facility] REFERRAL OP Referral Within 3 days (urgent) 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) Type 2 diabetes mellitus with hemoglobin A1c goal of less than 8.0% (HCC) Malaise and fatigue Other malaise and fatigue Bilateral leg edema Edema Loss of weight 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) Type II or unspecified type diabetes mellitus with peripheral circulatory disorders, not stated as uncontrolled Pneumonia of right upper lobe due to infectious organism- Primary SOB (shortness of breath) Shortness of breath 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) Malignant neoplasm of 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 No Care Teams Hose Seamer Relationship Specialty Start Date End Date Pedro Luis Bowens DO [address] [place] [address] PCP - General Internal Medicine 09/09/23 documented as of this encounter
[2024-04-25] MEDS: ONDANSETRON INJ 2 MG/ML 2 ML VIAL IV STA (18:10)
[2024-04-25] MEDS: SODIUM CHLORIDE 0.9% 1,000 ML IV SCH (18:10)
[2024-04-25 18:18] LABS: Base Excess VBG -2.9 mEq/L; HCO3 VBG 22 mmol/L; Oxygen Saturation VBG < 60.0 %; PCO2 VBG 38 mmHg (38-50); PO2 VBG 36 mmHg; pH VBG 7.37 (7.36-7.41)
[2024-04-25 18:21] LABS: iSTAT Creatinine 0.9 mg/dl (0.6-1.3); iSTAT Hemoglobin 9.2 g/dl (14.0-18.0); iSTAT Ionized Calcium 1.19 mmol/l (1.12-1.32); iSTAT Potassium 4.3 mmol/L (3.3-5.0)
[2024-04-25 18:42] LABS: Albumin Level 2.3 gm/dl (3.4-5.0); BUN Creatinine Ratio 25.3 (10-20); Bilirubin Direct 0.6 mg/dl (0-0.2); Bilirubin,Total 1.4 mg/dl (0.2-1.0); Calcium 8.3 mg/dl (8.6-10.3); Creatinine Clr Calc Pharmacy 62.1 ml/min; Magnesium 1.6 mg/dl (1.7-2.4); Potassium 4.3 mmol/L (3.5-5.1); Total Protein 5.7 gm/dl (6.0-8.3)
[2024-04-25 18:45] LABS: INR 1.6 (0.9-1.1); Prothrombin Time 16.6 Seconds (9.0-12.0)
[2024-04-25 18:48] LABS: Troponin I High Sensitivity 20.7 pg/ml (0-20)
[2024-04-25] MEDS: diphenhydrAMINE 50 MG/ML VIAL IV STA (19:04)
[2024-04-25] MEDS: methylPREDNISolone 125 MG/2 ML VIAL IV STA (19:06)
[2024-04-25 19:09] LABS: Hematocrit (blood only) 27.1 % (42.0-52.0); Hemoglobin 8.9 g/dl (14.0-18.0); Mean Corpuscular Hemoglobin 29.4 pg (25.0-34.0); Mean Corpuscular Hgb Conc 32.8 g/dL (32.0-36.0); Mean Corpuscular Volume 89.4 fL (80.0-100.0); Mean Platelet Volume 9.5 fL (9.4-12.4); Platelet Count 256 K/uL (130-400); RDW Coefficient of Variation 17.6 % (11.5-14.5); RDW Standard Deviation 57.6 fL (36.4-46.3); Red Blood Count 3.03 M/uL (4.70-6.10); White Blood Count 1.83 K/ul (4.8-10.8)
[2024-04-25 19:17] LABS: Adenovirus PCR Not Detected (NotDetected); Bordetella parapertussis PCR Not Detected (NotDetected); Bordetella pertussis PCR Not Detected (NotDetected); Chlamydia pneumoniae PCR Not Detected (NotDetected); Coronavirus 229E PCR Not Detected (NotDetected); Coronavirus CoV-2 (COVID19)PCR Not Detected (NotDetected); Coronavirus HKU1 PCR Not Detected (NotDetected); Coronavirus NL63 PCR Not Detected (NotDetected); Coronavirus OC43PCR Not Detected (NotDetected); Human Metapneumovirus PCR Not Detected (NotDetected); Influenza A PCR Not Detected (NotDetected); Influenza B PCR Not Detected (NotDetected); Mycoplasma pneumoniae PCR Not Detected (NotDetected); Parainfluenza Virus 1 PCR Not Detected (NotDetected); Parainfluenza Virus 2 PCR Not Detected (NotDetected); Parainfluenza Virus 3 PCR Not Detected (NotDetected); Parainfluenza Virus 4 PCR Not Detected (NotDetected); Respiratory Syncytial VirusPCR Not Detected (NotDetected); Rhinovirus/Enterovirus PCR Not Detected (NotDetected)
[2024-04-25 19:31] LABS: Basophils # (auto) 0.01 K/uL (0.00-0.20); Basophils % (auto) 0.5 %; Eosinophils # (auto) 0.06 K/uL (0.00-0.50); Eosinophils % (auto) 3.3 %; Lymphocytes # (auto) 0.55 K/uL (1.20-3.40); Lymphocytes % (auto) 30.1 %; Monocytes # (auto) 0.08 K/uL (0.11-0.59); Monocytes % (auto) 4.4 %; Neutrophils # (auto) 1.13 K/uL (1.40-6.50); Neutrophils % (auto) 61.7 %; Toxic Vacuolation 2+
--- NOTE | 2024-04-25 19:31 | XRay Report ---
EXAM: Portable AP chest radiograph TECHNIQUE: AP portable radiograph of the chest was obtained. INDICATION: Shortness of breath. Sepsis Comparison: Chest radiograph April 01, 2024. FINDINGS: LINES and TUBES: Right-sided Port-A-Cath with tip again projecting over the superior cavoatrial junction. CARDIOVASCULAR: Cardiac silhouette is stably enlarged in size. Mediastinal clips. LUNGS/PLEURA: Partial interval improvement of the streaky right upper lobe airspace densities. Slight interval increase in the left greater than right bibasilar densities. No significant pleural fluid. No discernible pneumothorax. OSSEOUS/OTHER: No displaced acute osseous process identified. Median sternotomy wires, several which are fractured. IMPRESSION: Compared to previous radiograph from April 01, 2024, there has been a mild interval improvement in the right upper lobe streaky opacities. Residual airspace disease suggested in this area. Slight interval increase in the left greater than right bibasilar densities could represent atelectasis or mild airspace disease. Electronically signed by Art Daniels 04-25-2024 7:30 PM
[2024-04-25] MEDS: OPTIRAY 320 100ml IV ONE (19:33)
--- NOTE | 2024-04-25 20:42 | CT Scan Report ---
Exam(s): CT HEAD Without Contrast EXAM: CT Head Without Intravenous Contrast CLINICAL HISTORY: Reason for exam: fall. TECHNIQUE: Axial computed tomography images of the head/brain without intravenous contrast. CTDI is 37.69 mGy and DLP is 624.41 mGy-cm. Automated exposure control was utilized for the study. A dose lowering technique was utilized adhering to the principles of ALARA. COMPARISON: 02/25/24 FINDINGS: Brain: Age-related parenchymal volume loss. Mild chronic small vessel ischemic change. Pretty-white matter differentiation maintained. No hemorrhage, mass effect, parenchymal edema, or midline shift. Ventricles: Unremarkable. No hydrocephalus. Bones/joints: Unremarkable. No acute fracture. Soft tissues: Unremarkable. Vasculature: Intracranial atherosclerosis. Sinuses: Unremarkable as visualized. Mastoid air cells: Unremarkable as visualized. No mastoid effusion. Orbits: Lens replacement. IMPRESSION: No acute intracranial process. Electronically signed by: Mk Phillip M.D. 04/25/24 20:42 PM
--- NOTE | 2024-04-25 20:49 | CT Scan Report ---
Exam(s): CT ABDOMEN + PELVIS With Contrast IV Amt: 90ml optiray 320 EXAM: CT Abdomen and Pelvis With Intravenous Contrast CLINICAL HISTORY: Reason for exam: N/V. TECHNIQUE: Axial computed tomography images of the abdomen and pelvis with intravenous contrast. CTDI is 23.96 mGy and DLP is 1324.7 mGy-cm. Automated exposure control was utilized for the study. A dose lowering technique was utilized adhering to the principles of ALARA. CONTRAST: Patient received 90ml optiray 320 of IV contrast COMPARISON: 04/01/24 FINDINGS: Lung bases: Numerous subpleural pulmonary micronodules at the lung bases. Some increased airspace opacity at the right lung base. Pleural space: Trace bilateral pleural effusions. Heart: Previous sternotomy and likely CABG. Coronary artery atherosclerosis. No cardiomegaly. Partially imaged central venous catheter extending to the cavoatrial junction. Mediastinum: Fluid-filled distal esophagus, new from prior. ABDOMEN: Liver: Extensive hepatic metastatic disease, similar to prior. Gallbladder and bile ducts: Metallic common bile duct stent in place. Associated pneumobilia. Similar gallbladder distention with layering sludge. No calcified stones. Pancreas: Suggestion of ill-defined pancreatic head mass measuring 2.7 cm. No ductal dilation. Spleen: Unremarkable. No splenomegaly. Adrenals: Unremarkable. No mass. Kidneys and ureters: Unremarkable. No solid mass. No hydronephrosis. Stomach and bowel: No mechanical bowel obstruction. Diverticulosis without diverticulitis. Wall thickening involving the duodenum and multiple segments of small bowel appears increased from prior. PELVIS: Appendix: Normal appendix. Bladder: Unremarkable. No mass. Reproductive: Unremarkable as visualized. ABDOMEN and PELVIS: Intraperitoneal space: Mild-moderate ascites, increased from prior. No free air. Bones/joints: Mild spinal megaly. No acute fracture or dislocation. Soft tissues: Bilateral inguinal hernias containing fat and ascites, similar to prior. Mesenteric edema. Vasculature: Atherosclerosis. 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 Lymph nodes: Unremarkable. No enlarged lymph nodes. IMPRESSION: 1. Fluid-filled esophagus related to vomiting. Some increased airspace opacity at the right lung base. A small amount of aspiration is not excluded. 2. Wall thickening involving the duodenum and multiple segments of small bowel appears increased from prior. Correlate for enteritis. 3. Extensive hepatic metastatic disease, similar to prior. Suggestion of ill-defined pancreatic head mass measuring 2.7 cm. 4. Mild-moderate ascites, increased from prior. 5. 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 Electronically signed by: Mk Phillpi M.D. 04/25/24 20:48 PM
[2024-04-25] MEDS: SODIUM CHLORIDE 0.9% 1,000 ML IV ONE (21:15)
[2024-04-25] MEDS: METOCLOPRAMIDE HCL INJ 5 MG/ML 2 ML VIAL IV STA (21:23)
[2024-04-25] MEDS: METOCLOPRAMIDE HCL INJ 5 MG/ML 2 ML VIAL ONE (21:23)
[2024-04-25] MEDS: AMPICILLIN/SULBACTAM SOD 3,000 MG/100 ML BAG IV STA (21:28)
[2024-04-25] MEDS: PIPERACILLIN IV ONE (22:31)
[2024-04-25] MEDS: TAZO IV ONE (22:31)
--- NOTE | 2024-04-25 22:37 | History & Physical Report ---
Date of Service April 25, 2024 Assessment & Plan (1) Severe sepsis: Plan: 78-year-old male with past medical history significant for diabetes, metastatic pancreatic cancer currently chemo on hold, history of hypertension, history of CAD status post stent and CABG, moderate aortic stenosis, pulmonary hypertension, atherosclerosis bilateral legs, GERD, B12 deficiency, BPH, hyponatremia currently living at personal-shelter and ambulates with a walker was brought in because of fall. Patient was admitted to [facility] on 04/01/2024 for weakness, right lobe pneumonia and sepsis and was transferred to [place] same-day for severe sepsis and septic shock. At [place] septic shock was thought to be due to ascending cholangitis in the setting of plastic stent occlusion. He had a metastatic pancreatic cancer status post ERCP with stent placement in 12/2023. In [place] GI was consulted and underwent ERCP with metal stent replacement on 04/02/2024 and after that LFTs improved and remained stable. Plan was to repeat stent exchange 6 months by GI. Blood culture drawn at [facility] grew Streptococcus constellatus and Eikenella corrodens. Patient was treated with Unasyn until 04/16/2024. At [place] oncology was consulted for metastatic pancreatic cancer and recommended no chemotherapy for now with current infection and poor performance status and to follow as outpatient for treatment discussion. GI and general surgery consulted for imaging findings with cholecystitis and no active intervention was decided because of poor surgical candidate status. As patient was having increased work of breathing and tachycardia CT PE was done on 04/05/2024 and showed acute pulmonary emboli involving left posterior segmental and right posterior subsegmental pulmonary arteries. Patient was started on Lovenox and and was discharged on Eliquis. Patient at [place] also developed acute hypoxic respiratory failures requiring high flow oxygen in setting of PE and CHF exacerbation and deconditioning. Improved with diuresis. Echo showed EF of 40% grade 1 diastolic function reduced from than before. Cardio recommended follow up outpatient in 1 month. With aggressive diuresis patient was weaned to room air. Patient was discharged on Bumex. Family is in the room. Until today patient was doing okay as per family. Appetite is down not eating much.. Patient denies any headache. Denies any cough. Somewhat hard of hearing. Alert and oriented. Able to answer questions appropriately. Denies any chest pain. Has some back pain. Has abdominal pain 5/10 in severity. Micturating okay. Had 2 loose bowel movements today. He started to vomit after falling down. Patient says he developed some abdominal pain and he thought he will feel better walking when he walked a few steps he felt lightheaded and fell down. No loss of consciousness. After that he started have some vomiting. Patient was hypotensive, tachycardic and hypoxic in ER. Requiring oxy mask. Received aggressive fluid so far. Patient is DNR/DNI. Per the family is okay for short course of pressors if needed. Severe sepsis Came with abdominal pain and fall Was tachycardic, hypotensive and hypoxic Had nausea vomiting CT abdomen pelvis showing possible aspiration pneumonitis and also enteritis Initial lactic acid is 4.3 and repeat is 2.9 Received Aggressive fluids about 3 liters Will give 50 g of IV albumin Continue maintenance with normal saline 100 mL/h Received Unasyn in the ER Will continue with Zosyn and vancomycin Doxy Will get CT chest If not improving will transfer to ICU for pressors Will monitor hemodynamics and follow repeat lactic acid levels. Elevated LFTs Recent ascending cholangitis from plastic biliary stent occlusion status post metal stent in [place]. CT scan shows stent in place Possible ongoing cholecystitis Antibiotics as above GI consult in a.m. Respiratory distress Possible from aspiration Patient has history of systolic and diastolic CHF Will follow CT chest Pulmonary consult in a.m. Continue oxygenation Metastatic pancreatic cancer Last chemo around Thanksgiving time Currently chemo on hold Follow-up with heme-onc History of chronic systolic and diastolic CHF EF 40%. Moderate aortic stenosis Holding Bumex for sepsis Getting fluids Monitor for volume overload History of CAD s/p stents and CABG Continue aspirin. Hold Imdur and ranolazine as patient is sepsis Hold metoprolol for now and monitor Recent PE On Eliquis A-fib on EKG today Seems new onset Patient is already on Eliquis Holding metoprolol for sepsis Follow repeat EKG and echo GERD On Protonix BPH On Flomax. Restart when able to Diabetes Hold metformin Sliding scale DVT prophylaxis On Eliquis Disposition Telemetry CODE STATUS DNR/DNI as per my discussion with the family Addendum Am troponin elevated to 700/s. Patinet says feeling better than yesterday. Tacycardic all night. Mostly demand ischemia.On eliquis.Ekg ok. Will follow serial ce and echo.Cardio consulted. History of Present Illness Primary Care Provider: Pedro Luis Bowens DO 78-year-old male with past medical history significant for diabetes, metastatic pancreatic cancer currently chemo on hold, history of hypertension, history of CAD status post stent and CABG, moderate aortic stenosis, pulmonary hypertension, atherosclerosis bilateral legs, GERD, B12 deficiency, BPH, hyponatremia currently living at personal-shelter and ambulates with a walker was brought in because of fall. Patient was admitted to [facility] on 04/01/2024 for weakness, right lobe pneumonia and sepsis and was transferred to [place] same-day for severe sepsis and septic shock. At [place] septic shock was thought to be due to ascending cholangitis in the setting of plastic stent occlusion. He had a metastatic pancreatic cancer status post ERCP with stent placement in 12/2023. In [place] GI was consulted and underwent ERCP with metal stent replacement on 04/02/2024 and after that LFTs improved and remained stable. Plan was to repeat stent exchange 6 months by GI. Blood culture drawn at [facility] grew Streptococcus constellatus and Eikenella corrodens. Patient was treated with Unasyn until 04/16/2024. At [place] oncology was consulted for metastatic pancreatic cancer and recommended no chemotherapy for now with current infection and poor performance status and to follow as outpatient for treatment discussion. GI and general surgery consulted for imaging findings with cholecystitis and no active intervention was decided because of poor surgical candidate status. As patient was having increased work of breathing and tachycardia CT PE was done on 04/05/2024 and showed acute pulmonary emboli involving left posterior segmental and right posterior subsegmental pulmonary arteries. Patient was started on Lovenox and and was discharged on Eliquis. Patient at [place] also developed acute hypoxic respiratory failures requiring high flow oxygen in setting of PE and CHF exacerbation and deconditioning. Improved with diuresis. Echo showed EF of 40% grade 1 diastolic function reduced from than before. Cardio recommended follow up outpatient in 1 month. With aggressive diuresis patient was weaned to room air. Patient was discharged on Bumex. Family is in the room. Until today patient was doing okay as per family. Appetite is down not eating much.. Patient denies any headache. Denies any cough. Somewhat hard of hearing. Alert and oriented. Able to answer questions appropriately. Denies any chest pain. Has some back pain. Has abdominal pain 5/10 in severity. Micturating okay. Had 2 loose bowel movements today. He started to vomit after falling down. Patient says he developed some abdominal pain and he thought he will feel better walking when he walked a few steps he felt lightheaded and fell down. No loss of consciousness. After that he started have some vomiting. Patient was hypotensive, tachycardic and hypoxic in ER. Requiring oxy mask. Received aggressive fluid so far. Patient is DNR/DNI. Per the family is okay for short course of pressors if needed. Past medical history. As mentioned above Past surgical history. CABG. Left heart catheterization. Colonoscopy. Coronary artery dilatation. EGD. EGD with endoscopic ultrasound. ERCP. Bilateral cataracts. Social history. . Quit smoking in 1985. Smoked 1 pack a day for 25 years. Alcohol occasional. No drug use. Family history. Daughter has asthma, diabetes. Brother has diabetes. Heart disorder. Father has heart disorder. Mother has hypertension. Allergies Allergy/AdvReac Type Severity Reaction Status Date / Time Iodinated Contrast Media Allergy Intermediate Rash Verified 03/20/24 13:05 levofloxacin Allergy Intermediate RASH Verified 03/20/24 13:05 lisinopril AdvReac Mild Cough Verified 03/20/24 13:05 Home Medications Medication Instructions Recorded Confirmed Type multivitamin (Multiple Vitamins 1 tab PO QPM 12/02/18 04/25/24 History tablet) nitroglycerin 0.4 mg sublingual 0.4 mg sublingual Q5M PRN Chest 01/06/19 04/25/24 History tablet Pain #1 tab fluticasone propionate 50 1 spray intranasal QAM 03/16/20 04/25/24 History mcg/actuation nasal spray,suspension pantoprazole 20 mg tablet,delayed 20 mg PO QAM 01/30/24 04/25/24 History release iron,carbonyl 65 mg-vitamin C 125 1 tab PO Q OTHER DAY 02/07/24 04/25/24 History mg tablet,delayed release (Vitron-C) isosorbide mononitrate 60 mg 120 mg PO QAM 02/07/24 04/25/24 History tablet,extended release 24 hr lidocaine-prilocaine 2.5 %-2.5 % 1 applic topical UD 02/07/24 04/25/24 History topical cream ondansetron HCl 8 mg tablet 8 mg PO Q8 PRN Nausea 02/07/24 04/25/24 History prochlorperazine maleate 10 mg 10 mg PO Q6 PRN Nausea 02/07/24 04/25/24 History tablet metformin 500 mg tablet,extended 1,000 mg PO AMPM 03/20/24 04/25/24 History release 24 hr L.acidophilus-L.plantarum-B.animalis-B.longum 1 cap PO DAILYBB 04/01/24 04/25/24 History 2 billion cell capsule (Probiotic Acidophilus Beads) potassium chloride 10 mEq 10 meq PO QAM 04/01/24 04/25/24 History capsule,extended release ranolazine 500 mg tablet,extended 500 mg PO AMHS 04/01/24 04/25/24 History release,12 hr acetaminophen 500 mg tablet 1,000 mg PO Q6H PRN Pain 04/25/24 04/25/24 History apixaban 5 mg tablet 5 mg PO AMHS 04/25/24 04/25/24 History aspirin 81 mg chewable tablet 81 mg PO HS 04/25/24 04/25/24 History (Children's Aspirin) bumetanide 0.5 mg tablet 0.5 mg PO QAM 04/25/24 04/25/24 History cholecalciferol (vitamin D3) 25 25 mcg PO QPM 04/25/24 04/25/24 History mcg (1,000 unit) capsule (Vitamin D3) diphenhydramine HCl 50 mg capsule 50 mg PO UD 04/25/24 04/25/24 History (Banophen) magnesium oxide 400 mg (241.3 mg 400 mg PO AMHS 04/25/24 04/25/24 History magnesium) tablet metoprolol tartrate 25 mg tablet 12.5 mg PO AMHS 04/25/24 04/25/24 History nystatin 100,000 unit/gram topical 1 applic topical BID PRN FUNGAL 04/25/24 04/25/24 History powder (Nystop) RASH prednisone 50 mg tablet 50 mg PO UD 04/25/24 04/25/24 History tamsulosin 0.4 mg capsule 0.4 mg PO AMHS 04/25/24 04/25/24 History Past Med/Surg History Problem List (Updated 04/25/24 @ 22:45 by Walter Mosley MD) Severe sepsis Hypoxia (Acute) History of biliary stent insertion Acute cholecystitis Dyspnea Primary pancreatic cancer with metastasis to other site Melena Acute hyponatremia (Acute) Elevated troponin I level (Acute) Anemia (Acute) Pneumonia (Acute) Oropharyngeal candidiasis COVID-19 virus infection Rapidly progressive weakness Elevated troponin Pancytopenia COVID-19 (Acute) Neutropenia (Acute) Acute hyponatremia (Acute) Pancreatic cancer (Acute) Anemia (Acute) Non-ST elevation [place] (NSTEMI) (Acute) Weakness (Acute) S/P coronary artery stent placement Non-ST elevation (NSTEMI) myocardial infarction Abdominal pain Fever (Acute) Pancreatic cancer metastasized to liver (Acute) Acute non-ST elevation myocardial infarction (NSTEMI) (Acute) Abnormal LFTs Severe sepsis Encounter for pre-operative examination Hx of CABG 1999 > 4 vessels > [facility] > follows with Dr. Lunsford Angina pectoris chronic stable class I per cardio Aortic stenosis (Acute) CAD (coronary artery disease) (Acute) Dry skin (Acute) Enlarged prostate with lower urinary tract symptoms (LUTS) (Acute) Former smoker (Acute) GERD (gastroesophageal reflux disease) (Acute) Hypercholesterolemia (Acute) Hypertension (Acute) Nephrolithiasis (Acute) Non Q wave myocardial infarction (Acute) 2002 Shortness of breath (Acute) per pt, uses inhaler in AM and resolved Type 2 diabetes mellitus (Acute) Medical History Pancreatic cancer stage 4; now with mets Hx of renal calculi Dyspnea reason for inhaler, uses every morning Angina pectoris chronic stable class I per cardio; follows closely with [facility] Cardio Non Q wave myocardial infarction 2002; 'questionable per pt' CAD (coronary artery disease) CABG August 1999, LM and LAD stents August 2009, RCA and LAD stents September 2009 Aortic stenosis follows with Dr. Lunsford; mild-mod per 08/27/23 ECHO BPH (benign prostatic hyperplasia) GERD (gastroesophageal reflux disease) Hyperlipidemia Hypertension Type 2 diabetes mellitus Surgical History Hx of CABG 1999 > 4 vessels > [facility] > follows with Dr. Lunsford History of insertion of pancreatic stent (01/16/24) [facility] Hx of biopsy (12/2023) pancreas and liver History of left cataract surgery History of esophagogastroduodenoscopy (EGD) History of colonoscopy History of tooth extraction History of tonsillectomy H/O lithotripsy Hx of cardiac cath 2010 > 5 stents - [facility] (LM and LAD stents August 2009, RCA and LAD stents September 2009) Family History Father Myocardial infarction Other Diabetes Heart disease Social History Smoking Status: Former smoker Tobacco Type: Cigarettes Second Hand Exposure: No; Do You Dip or Chew Tobacco: No; Hx Alcohol Use: Yes Alcohol type: hard liquor Hx Substance Use: No Preferred Language: Belarusian Communication Ability: Effective Clinical Audiologist Required: No Beliefs That Will Affect Care: None marital status: Current Living Situation: Significant Other Current Living Situation Comment: house- no stairs Other Information That Helps Us Care for You: Yes Feels Safe at Home: Yes Safety Concerns: Feels Safe At This Time Assistive Devices: Glasses, Hearing Aid - Bilateral and Walker Review of Systems Review of Systems: All systems reviewed & are unremarkable except as noted in HPI & below Physical Exam Physical Exam: General- Weak and frail. Hard of hearing Head- atraumatic Eyes- PERRL, ENT- dry Neck- supple, no JVD. Lungs- clear to auscultation , tachypnea,no wheezing or crackles Heart- regular rhythm; tachycardia, esm in aortic area no gallop. Abdomen- normal bowel sounds, distended, tense, tenderness in periumbilical region Extremities- b/l lower extremity edema present, no erythema seen Neuro- alert, oriented PERRL, No facial palsy, No dysarthria.Moves extremities Results & Data Results & Data Vital Signs (Past 12 Hours) Vital Signs Temp Pulse Pulse Resp BP BP Pulse Ox 04/25/24 21:45 126 H 32 H 105/63 100 04/25/24 21:30 124 H 39 H 86/69 L 100 04/25/24 21:25 124 H 107/70 100 04/25/24 21:00 04/25/24 20:51 124 H 33 H 84/66 L 100 04/25/24 20:30 125 H 31 H 92/62 L 100 04/25/24 19:54 125 H 35 H 89/54 L 100 04/25/24 19:53 123 H 100 04/25/24 19:39 127 H 35 H 91/60 L 100 04/25/24 19:00 119 H 35 H 90/61 L 100 04/25/24 18:30 118 H 34 H 87/54 L 96 04/25/24 18:28 85 L 04/25/24 18:13 36.0 C L 114 H 28 H 92/56 L 60 L 04/25/24 18:00 117 H O2 Del Method O2 Flow Rate 04/25/24 21:45 Oxymask 3 04/25/24 21:30 Oxymask 3 04/25/24 21:25 Oxymask 3 04/25/24 21:00 Oxymask 04/25/24 20:51 Oxymask 3 04/25/24 20:30 Oxymask 3 04/25/24 19:54 Oxymask 5 04/25/24 19:53 Oxymask 5 04/25/24 19:39 Oxymask 10 04/25/24 19:00 Oxymask 04/25/24 18:30 BiPAP 04/25/24 18:28 Non-rebreather 15 04/25/24 18:13 Room Air 04/25/24 18:00 Diagnostic Findings Laboratory Results WBC 1.83 K/ul (4.8-10.8) L 04/25/24 18:06 RBC 3.03 M/uL (4.70-6.10) L 04/25/24 18:06 Hgb 8.9 g/dl (14.0-18.0) L 04/25/24 18:06 POC Hgb 9.2 g/dl (14.0-18.0) L 04/25/24 18:09 Hct 27.1 % (42.0-52.0) L 04/25/24 18:06 POC Hct 27 % (42-52) L 04/25/24 18:09 MCV 89.4 fL (80.0-100.0) 04/25/24 18:06 MCH 29.4 pg (25.0-34.0) 04/25/24 18:06 MCHC 32.8 g/dL (32.0-36.0) 04/25/24 18:06 RDW Std Deviation 57.6 fL (36.4-46.3) H 04/25/24 18:06 RDW Coeff of Loli 17.6 % (11.5-14.5) H 04/25/24 18:06 Plt Count 256 K/uL (130-400) 04/25/24 18:06 MPV 9.5 fL (9.4-12.4) 04/25/24 18:06 Immature Gran % (Auto) 0.0 % 04/25/24 18:06 Neut % (Auto) 61.7 % 04/25/24 18:06 Lymph % (Auto) 30.1 % 04/25/24 18:06 [place] % (Auto) 4.4 % 04/25/24 18:06 Eos % (Auto) 3.3 % 04/25/24 18:06 Baso % (Auto) 0.5 % 04/25/24 18:06 Neut # (Auto) 1.13 K/uL (1.40-6.50) L 04/25/24 18:06 Lymph # (Auto) 0.55 K/uL (1.20-3.40) L 04/25/24 18:06 [place] # (Auto) 0.08 K/uL (0.11-0.59) L 04/25/24 18:06 Eos # (Auto) 0.06 K/uL (0.00-0.50) 04/25/24 18:06 Baso # (Auto) 0.01 K/uL (0.00-0.20) 04/25/24 18:06 Immature Gran # (Auto) 0.00 K/uL (0.01-0.20) L 04/25/24 18:06 Toxic Vacuolation 2+ 04/25/24 18:06 PT 16.6 Seconds (9.0-12.0) H 04/25/24 18:16 INR 1.6 (0.9-1.1) H 04/25/24 18:16 VBG pH 7.37 (7.36-7.41) 04/25/24 18:06 VBG pCO2 38 mmHg (38-50) 04/25/24 18:06 VBG pO2 36 mmHg 04/25/24 18:06 VBG HCO3 22 mmol/L 04/25/24 18:06 VBG O2 Saturation < 60.0 % 04/25/24 18:06 VBG Base Excess -2.9 mEq/L 04/25/24 18:06 POC Sodium 131 mmol/L (135-144) L 04/25/24 18:09 Sodium 130 mmol/L (136-145) L 04/25/24 18:06 POC Potassium 4.3 mmol/L (3.3-5.0) 04/25/24 18:09 Potassium 4.3 mmol/L (3.5-5.1) 04/25/24 18:06 POC Chloride 101 mmol/L (101-112) 04/25/24 18:09 Chloride 100 mmol/L (98-107) 04/25/24 18:06 Carbon Dioxide 21 mmol/L (21-32) 04/25/24 18:06 POC Total CO2 19 mmol/L (24-31) L 04/25/24 18:09 Anion Gap 9 (3-11) 04/25/24 18:06 POC Anion Gap 16.0 mmol/L (16-25) 04/25/24 18:09 POC BUN 21 mg/dl (7-18) H 04/25/24 18:09 BUN 23 mg/dl (6-23) 04/25/24 18:06 Creatinine 0.91 mg/dl (0.6-1.4) 04/25/24 18:06 POC Creatinine 0.9 mg/dl (0.6-1.3) 04/25/24 18:09 Est Cr Clr Drug Dosing 62.1 ml/min 04/25/24 18:06 eGFR 85.73 04/25/24 18:06 BUN/Creatinine Ratio 25.3 (10-20) H 04/25/24 18:06 Glucose 118 mg/dl (70-99(Fasting)) H 04/25/24 18:06 POC Glucose (other) 117 mg/dl (70-99) H 04/25/24 18:09 Lactate 2.9 mmol/L (0.4-2.0) H* 04/25/24 20:38 Calcium 8.3 mg/dl (8.6-10.3) L 04/25/24 18:06 POC Ioniz Calcium Christie 1.19 mmol/l (1.12-1.32) 04/25/24 18:09 Magnesium 1.6 mg/dl (1.7-2.4) L 04/25/24 18:06 Total Bilirubin 1.4 mg/dl (0.2-1.0) H 04/25/24 18:06 Direct Bilirubin 0.6 mg/dl (0-0.2) H 04/25/24 18:06 AST 48 U/L (13-39) H 04/25/24 18:06 ALT 36 U/L (7-52) 04/25/24 18:06 Alkaline Phosphatase 345 U/L (34-104) H 04/25/24 18:06 Troponin I High Sens 20.0 pg/ml (0-20) 04/25/24 20:38 Total Protein 5.7 gm/dl (6.0-8.3) L 04/25/24 18:06 Albumin 2.3 gm/dl (3.4-5.0) L 04/25/24 18:06 Procalcitonin 0.66 ng/ml (0-0.5) H 04/25/24 18:06 Adenovirus (PCR) Not Detected (NotDetected) 04/25/24 18:11 B. pertussis DNA (PCR) Not Detected (NotDetected) 04/25/24 18:11 B.parapertussis DNA PCR Not Detected (NotDetected) 04/25/24 18:11 C. pneumoniae DNA (PCR) Not Detected (NotDetected) 04/25/24 18:11 Coronavirus OC43 (PCR) Not Detected (NotDetected) 04/25/24 18:11 Coronavirus HKU1 (PCR) Not Detected (NotDetected) 04/25/24 18:11 Coronavirus 229E (PCR) Not Detected (NotDetected) 04/25/24 18:11 SARS-CoV-2 (PCR) Not Detected (NotDetected) 04/25/24 18:11 Coronavirus NL63 (PCR) Not Detected (NotDetected) 04/25/24 18:11 Human Metapneumovir PCR Not Detected (NotDetected) 04/25/24 18:11 Influenza Type A (PCR) Not Detected (NotDetected) 04/25/24 18:11 Influenza Type B (PCR) Not Detected (NotDetected) 04/25/24 18:11 M. pneumoniae (PCR) Not Detected (NotDetected) 04/25/24 18:11 Parainfluenza 1 (PCR) Not Detected (NotDetected) 04/25/24 18:11 Parainfluenza 2 (PCR) Not Detected (NotDetected) 04/25/24 18:11 Parainfluenza 3 (PCR) Not Detected (NotDetected) 04/25/24 18:11 Parainfluenza 4 (PCR) Not Detected (NotDetected) 04/25/24 18:11 RSV (PCR) Not Detected (NotDetected) 04/25/24 18:11 Entero/Rhino (PCR) Not Detected (NotDetected) 04/25/24 18:11 Impressions Chest X-Ray 04/25/24 17:48 EXAM: Portable AP chest radiograph TECHNIQUE: AP portable radiograph of the chest was obtained. INDICATION: Shortness of breath. Sepsis Comparison: Chest radiograph April 01, 2024. FINDINGS: LINES and TUBES: Right-sided Port-A-Cath with tip again projecting over the superior cavoatrial junction. CARDIOVASCULAR: Cardiac silhouette is stably enlarged in size. Mediastinal clips. LUNGS/PLEURA: Partial interval improvement of the streaky right upper lobe airspace densities. Slight interval increase in the left greater than right bibasilar densities. No significant pleural fluid. No discernible pneumothorax. OSSEOUS/OTHER: No displaced acute osseous process identified. Median sternotomy wires, several which are fractured. IMPRESSION: Compared to previous radiograph from April 01, 2024, there has been a mild interval improvement in the right upper lobe streaky opacities. Residual airspace disease suggested in this area. Slight interval increase in the left greater than right bibasilar densities could represent atelectasis or mild airspace disease. Electronically signed by Art Daniels 04-25-2024 7:[address] 04/25/24 17:50 Exam(s): CT HEAD Without Contrast EXAM: CT Head Without Intravenous Contrast CLINICAL HISTORY: Reason for exam: fall. TECHNIQUE: Axial computed tomography images of the head/brain without intravenous contrast. CTDI is 37.69 mGy and DLP is 624.41 mGy-cm. Automated exposure control was utilized for the study. A dose lowering technique was utilized adhering to the principles of ALARA. COMPARISON: 12/3/24 FINDINGS: Brain: Age-related parenchymal volume loss. Mild chronic small vessel ischemic change. Pretty-white matter differentiation maintained. No hemorrhage, mass effect, parenchymal edema, or midline shift. Ventricles: Unremarkable. No hydrocephalus. Bones/joints: Unremarkable. No acute fracture. Soft tissues: Unremarkable. Vasculature: Intracranial atherosclerosis. Sinuses: Unremarkable as visualized. Mastoid air cells: Unremarkable as visualized. No mastoid effusion. Orbits: Lens replacement. IMPRESSION: No acute intracranial process. Electronically signed by: Mk Phillip M.D. 04/25/24 20:42 PM Abdomen/Pelvis CT 04/25/24 19:00 Exam(s): CT ABDOMEN + PELVIS With Contrast IV Amt: 90ml optiray 320 EXAM: CT Abdomen and Pelvis With Intravenous Contrast CLINICAL HISTORY: Reason for exam: N/V. TECHNIQUE: Axial computed tomography images of the abdomen and pelvis with intravenous contrast. CTDI is 23.96 mGy and DLP is 1324.7 mGy-cm. Automated exposure control was utilized for the study. A dose lowering technique was utilized adhering to the principles of ALARA. CONTRAST: Patient received 90ml optiray 320 of IV contrast COMPARISON: 04/01/24 FINDINGS: Lung bases: Numerous subpleural pulmonary micronodules at the lung bases. Some increased airspace opacity at the right lung base. Pleural space: Trace bilateral pleural effusions. Heart: Previous sternotomy and likely CABG. Coronary artery atherosclerosis. No cardiomegaly. Partially imaged central venous catheter extending to the cavoatrial junction. Mediastinum: Fluid-filled distal esophagus, new from prior. ABDOMEN: Liver: Extensive hepatic metastatic disease, similar to prior. Gallbladder and bile ducts: Metallic common bile duct stent in place. Associated pneumobilia. Similar gallbladder distention with layering sludge. No calcified stones. Pancreas: Suggestion of ill-defined pancreatic head mass measuring 2.7 cm. No ductal dilation. Spleen: Unremarkable. No splenomegaly. Adrenals: Unremarkable. No mass. Kidneys and ureters: Unremarkable. No solid mass. No hydronephrosis. Stomach and bowel: No mechanical bowel obstruction. Diverticulosis without diverticulitis. Wall thickening involving the duodenum and multiple segments of small bowel appears increased from prior. PELVIS: Appendix: Normal appendix. Bladder: Unremarkable. No mass. Reproductive: Unremarkable as visualized. ABDOMEN and PELVIS: Intraperitoneal space: Mild-moderate ascites, increased from prior. No free air. Bones/joints: Mild spinal megaly. No acute fracture or dislocation. Soft tissues: Bilateral inguinal hernias containing fat and ascites, similar to prior. Mesenteric edema. Vasculature: Atherosclerosis. 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 Lymph nodes: Unremarkable. No enlarged lymph nodes. IMPRESSION: 1. Fluid-filled esophagus related to vomiting. Some increased airspace opacity at the right lung base. A small amount of aspiration is not excluded. 2. Wall thickening involving the duodenum and multiple segments of small bowel appears increased from prior. Correlate for enteritis. 3. Extensive hepatic metastatic disease, similar to prior. Suggestion of ill-defined pancreatic head mass measuring 2.7 cm. 4. Mild-moderate ascites, increased from prior. 5. 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 Electronically signed by: Mk Phillip M.D. 04/25/24 20:48 PM ECG Additional Comments: ECG. A-fib with rapid ventricular sponsor rate of 118.. Nonspecific ST abnormalities in lateral leads. QTc 470
[2024-04-25] MEDS: ALBUMIN 25% 25 GM/100 ML VIAL IV SCH (23:43)
[2024-04-25] MEDS: DOXYCYCLINE HYCLATE 100 MG in DEXTROSE 5% MINI-B 100 ML IV STA (23:44)
[2024-04-26] MEDS ORDERED: GLUCOSE 40% GEL 15 GM TUBE PO PRN (00:29)
[2024-04-26] MEDS ORDERED: ONDANSETRON INJ 2 MG/ML 2 ML VIAL IV PRN (00:29)
[2024-04-26] MEDS ORDERED: CARBOHYDRATES FOR HYPOGLYCEMIA PO PRN (00:29)
[2024-04-26] MEDS ORDERED: NITROGLYCERIN SL 0.4 MG/TAB TAB SL PRN (00:29)
[2024-04-26] MEDS ORDERED: LIDOCAINE/PRILOCAINE 2.5% EA CRM EXT SCH (00:29)
[2024-04-26] MEDS ORDERED: DEXTROSE 50% 50 ML SYRINGE IV PRN (00:29)
[2024-04-26] MEDS ORDERED: DIPHENHYDRAMINE HCL 50 MG PO SCH (00:29)
[2024-04-26] MEDS ORDERED: NYSTATIN POWDER 15GM BTL EXT PRN (00:29)
[2024-04-26] MEDS ORDERED: GLUCOSE 10 TAB/TUBE PO PRN (00:29)
[2024-04-26] MEDS ORDERED: GLUCAGON FOR INJ 1 MG VIAL SQ PRN (00:29)
[2024-04-26] MEDS ORDERED: VANCOMYCIN CONSULT ACTIVE PRN (00:29)
--- NOTE | 2024-04-26 00:48 | CT Scan Report ---
Exam(s): CT CHEST Without Contrast EXAM: CT Chest Without Intravenous Contrast CLINICAL HISTORY: Reason for exam: hypoxia. TECHNIQUE: Axial computed tomography images of the chest without intravenous contrast. CTDI is in 10.37 mGy and DLP is 293.36 mGy-cm. Automated exposure control was utilized for the study. A dose lowering technique was utilized adhering to the principles of ALARA. COMPARISON: 04/01/24 FINDINGS: Lungs: Numerous bilateral pulmonary micronodules, largest 5 mm in the right lower lobe (series 4, image 125). Emphysema. Right upper lobe ground-glass opacity, similar to prior. Mild dependent right basilar airspace opacity. Pleural space: Trace pleural effusions. No pneumothorax. Heart: Sternotomy and CABG. Coronary artery atherosclerosis. No cardiomegaly. No significant pericardial effusion. Mediastinum: Small hiatal hernia with fluid-filled esophagus. Bones/joints: Unremarkable. No acute fracture. No dislocation. Soft tissues: Unremarkable. Vasculature: Thoracic aortic atherosclerosis without aneurysm. Lymph nodes: Unremarkable. No enlarged lymph nodes. Upper abdomen: Reported separately. Tubes, lines and devices: Right chest wall internal jugular vein approach port catheter with tip in the upper right atrium. IMPRESSION: 1. Right upper lobe ground-glass opacity, similar to prior. This could reflect chronic interstitial change versus viral/atypical infection. 2. Mild dependent right basilar airspace opacity, potentially a small amount of aspiration. 3. Numerous bilateral pulmonary micronodules, largest 5 mm in the right lower lobe (series 4, image 125). Per Fleischner Society guidelines, no follow-up is indicated. However, given history of metastatic pancreatic cancer, the possibility of pulmonary metastases cannot be excluded, and follow-up may be performed as clinically indicated. 4. Small hiatal hernia with fluid-filled esophagus, likely due to vomiting. 5. Trace pleural effusions. Electronically signed by: Mk Phillip M.D. 04/26/24 00:47 AM
[2024-04-26] MEDS: INSULIN ASPART PER UNIT CHARGE SC SCH (01:25)
[2024-04-26] MEDS: VANCOMYCIN HCL 1,500 MG in SODIUM CHLORIDE 0.9% 500 ML IV STA (01:26)
[2024-04-26] MEDS: SODIUM CHLORIDE 0.9% 1,000 ML IV SCH (01:29)
[2024-04-26 03:16] LABS: Appearance Urine Clear (Clear); Bacteria Urine Automated None Seen (None Seen); Bilirubin Urine 1+ (Negative); Blood Urine Negative (Negative); Calcium Oxalate Crystals Urine Present (None Prsent); Color Urine Dark Yellow; Epithelial Cell Urine Auto 0-2 /hpf (0-2); Glucose Urine UA Negative (Negative); Ketones Urine Negative (Negative); Leukocyte Esterase Urine Trace (Negative); Nitrite Urine Negative (Negative); Protein Urine Trace (Negative); Specific Gravity Urine 1.027 (1.000-1.030); Urobilinogen Urine Negative (Negative); WBC Urine Automated 0-5 /hpf (0-5); pH Urine 5.5 (4.5-7.5)
[2024-04-26] MEDS: PIPERACILLIN/TAZOBACTAM 4.5 GM/100 ML BAG IV SCH (03:44)
[2024-04-26] MEDS: ACETAMINOPHEN 1,000 MG/100 ML VIAL IV STA (03:44)
[2024-04-26] MEDS: MAGNESIUM SULFATE / D5W 1 GM/100 ML BAG IV SCH (04:45)
[2024-04-26 06:09] LABS: Hematocrit (blood only) 23.5 % (42.0-52.0); Hemoglobin 7.8 g/dl (14.0-18.0); Mean Corpuscular Hemoglobin 29.8 pg (25.0-34.0); Mean Corpuscular Hgb Conc 33.2 g/dL (32.0-36.0); Mean Corpuscular Volume 89.7 fL (80.0-100.0); Mean Platelet Volume 9.8 fL (9.4-12.4); Platelet Count 206 K/uL (130-400); RDW Coefficient of Variation 17.4 % (11.5-14.5); RDW Standard Deviation 57.7 fL (36.4-46.3); Red Blood Count 2.62 M/uL (4.70-6.10); White Blood Count 2.21 K/ul (4.8-10.8)
[2024-04-26 06:13] LABS: Albumin Level 2.6 gm/dl (3.4-5.0); BUN Creatinine Ratio 25.7 (10-20); Bilirubin Direct 1.3 mg/dl (0-0.2); Calcium 8.5 mg/dl (8.6-10.3); Creatinine Clr Calc Pharmacy 54.3 ml/min; Magnesium 1.7 mg/dl (1.7-2.4); Phosphorus 3.3 mg/dl (2.5-4.9); Potassium 4.1 mmol/L (3.5-5.1); Total Protein 5.1 gm/dl (6.0-8.3)
[2024-04-26 06:32] LABS: Troponin I High Sensitivity 748.3 pg/ml (0-20)
[2024-04-26] MEDS: APIXABAN 5 MG TABLET PO SCH ×2 (07:02→20:45)
[2024-04-26] MEDS: ADVANCED PROBIOTIC 625 MG CAPSULE PO SCH (07:03)
[2024-04-26 07:50] LABS: ALC (manual) 0.35 K/uL (1.2-3.4); ANC (manual) 1.35 K/uL (1.4-6.5); Lymphocytes # (manual) 0.35 K/uL (1.2-3.4); Lymphocytes % (manual) 16 %; Metamyelocytes # (manual) 0.38 K/uL (0-0); Metamyelocytes % (manual) 17 %; Monocytes # (manual) 0.13 K/uL (0.11-0.59); Monocytes % (manual) 6 %; Neutrophils # (manual) 1.35 K/uL (1.40-6.50); Neutrophils % (manual) 61 %
[2024-04-26] MEDS ORDERED: Heparin IV Adult Wt-Based Low-Dose w/ INITIAL Bolus Protocol IV SCH (08:00)
[2024-04-26] MEDS ORDERED: HEPARIN SOD (PORCINE) 1000 UNIT/ML IV ONE (08:08)
[2024-04-26 08:19] LABS: Toxic Vacuolation 1+
--- NOTE | 2024-04-26 08:51 | Electrocardiogram Report ---
Test Reason : Blood Pressure : */* mmHG Vent. 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
--- NOTE | 2024-04-26 08:55 | Electrocardiogram Report ---
Test Reason : Blood Pressure : */* mmHG Vent. 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
--- NOTE | 2024-04-26 09:17 | Gastrointestinal Consultation ---
Date of Consultation April 26, 2024 Assessment & Plan (1) Abdominal pain: Unfortunate man with metastatic pancreatic carcinoma admitted with abdominal pain and sepsis. I don't think he has cholangitis as his labs are not impressive and he has pneumobilia which suggests patent stent. He does have "thickened bowel" on CT so he could have a gastroenteritis as a cause of some of his problems. His metastatic load to his liver could also cause pain but that would be more chronic and not as acute as he suggests. If he does have cholecystitis then that can be the cause of his pain as well. He has ascites and it is relatively tense so that could certainly be the cause for his pain. If his anticoagulation can be held paracentesis might help. Suspect ascites related to metastatic disease. He also has SMA disease. He could have mesenteric angina/ischemia as well but he could not tolerate the fix for this. I think the only thing therapeutically that we can do now is consider paracentesis. His other problems either can't be fixed or require surgical intervention. History of Present Illness Reason for Consultation: abdominal pain Attending Physician: Logan Hogan MD History of Present Illness 78 year old man with metastatic pancreatic carcinoma with recent placement of metal biliary stent due to failed plastic stent. He had a somewhat complicated hospital course in [place] with resultant PE and need for anticoagulation. It was also considered that he may have cholecystitis but surgery isn't really an option with his overall condition. He was doing well at home until he ate yesterday and developed pain in his upper abdomen across the entire abdomen. He vomited as well. He has no fever or chills. LFT's are up just a little on admit labs. 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 Allergies Allergy/AdvReac Type Severity Reaction Status Date / Time Iodinated Contrast Media Allergy Intermediate Rash Verified 03/20/24 13:05 levofloxacin Allergy Intermediate RASH Verified 03/20/24 13:05 lisinopril AdvReac Mild Cough Verified 03/20/24 13:05 Home Medications Medication Instructions Recorded Confirmed Type multivitamin (Multiple Vitamins 1 tab PO QPM 12/02/18 04/25/24 History tablet) nitroglycerin 0.4 mg sublingual 0.4 mg sublingual Q5M PRN Chest 01/06/19 04/25/24 History tablet Pain #1 tab fluticasone propionate 50 1 spray intranasal QAM 03/16/20 04/25/24 History mcg/actuation nasal spray,suspension pantoprazole 20 mg tablet,delayed 20 mg PO QAM 01/30/24 04/25/24 History release iron,carbonyl 65 mg-vitamin C 125 1 tab PO Q OTHER DAY 02/07/24 04/25/24 History mg tablet,delayed release (Vitron-C) isosorbide mononitrate 60 mg 120 mg PO QAM 02/07/24 04/25/24 History tablet,extended release 24 hr lidocaine-prilocaine 2.5 %-2.5 % 1 applic topical UD 02/07/24 04/25/24 History topical cream ondansetron HCl 8 mg tablet 8 mg PO Q8 PRN Nausea 02/07/24 04/25/24 History prochlorperazine maleate 10 mg 10 mg PO Q6 PRN Nausea 02/07/24 04/25/24 History tablet metformin 500 mg tablet,extended 1,000 mg PO AMPM 03/20/24 04/25/24 History release 24 hr L.acidophilus-L.plantarum-B.animalis-B.longum 1 cap PO DAILYBB 04/01/24 04/25/24 History 2 billion cell capsule (Probiotic Acidophilus Beads) potassium chloride 10 mEq 10 meq PO QAM 04/01/24 04/25/24 History capsule,extended release ranolazine 500 mg tablet,extended 500 mg PO AMHS 04/01/24 04/25/24 History release,12 hr acetaminophen 500 mg tablet 1,000 mg PO Q6H PRN Pain 04/25/24 04/25/24 History apixaban 5 mg tablet 5 mg PO AMHS 04/25/24 04/25/24 History aspirin 81 mg chewable tablet 81 mg PO HS 04/25/24 04/25/24 History (Children's Aspirin) bumetanide 0.5 mg tablet 0.5 mg PO QAM 04/25/24 04/25/24 History cholecalciferol (vitamin D3) 25 25 mcg PO QPM 04/25/24 04/25/24 History mcg (1,000 unit) capsule (Vitamin D3) diphenhydramine HCl 50 mg capsule 50 mg PO UD 04/25/24 04/25/24 History (Banophen) magnesium oxide 400 mg (241.3 mg 400 mg PO AMHS 04/25/24 04/25/24 History magnesium) tablet metoprolol tartrate 25 mg tablet 12.5 mg PO AMHS 04/25/24 04/25/24 History nystatin 100,000 unit/gram topical 1 applic topical BID PRN FUNGAL 04/25/24 04/25/24 History powder (Nystop) RASH prednisone 50 mg tablet 50 mg PO UD 04/25/24 04/25/24 History tamsulosin 0.4 mg capsule 0.4 mg PO AMHS 04/25/24 04/25/24 History Patient History Medical History Pancreatic cancer stage 4; now with mets Hx of renal calculi Dyspnea reason for inhaler, uses every morning Angina pectoris chronic stable class I per cardio; follows closely with [facility] Cardio Non Q wave myocardial infarction 2002; 'questionable per pt' CAD (coronary artery disease) CABG August 1999, LM and LAD stents August 2009, RCA and LAD stents September 2009 Aortic stenosis follows with Dr. Lunsford; mild-mod per 08/27/23 ECHO BPH (benign prostatic hyperplasia) GERD (gastroesophageal reflux disease) Hyperlipidemia Hypertension Type 2 diabetes mellitus Surgical History Hx of CABG 1999 > 4 vessels > [facility] > follows with Dr. Lunsford History of insertion of pancreatic stent (01/16/24) [facility] Hx of biopsy (12/2023) pancreas and liver History of left cataract surgery History of esophagogastroduodenoscopy (EGD) History of colonoscopy History of tooth extraction History of tonsillectomy H/O lithotripsy Hx of cardiac cath 2009 > 5 stents - [facility] (LM and LAD stents August 2009, RCA and LAD stents September 2009) Family History Father Myocardial infarction Other Diabetes Heart disease Social History Smoking Status: Former smoker Tobacco Type: Cigarettes Second Hand Exposure: No; Do You Dip or Chew Tobacco: No; Hx Alcohol Use: Yes Alcohol type: hard liquor Hx Substance Use: No Preferred Language: Greek Communication Ability: Effective Senior Electronics Technician Required: No Beliefs That Will Affect Care: None marital status: Current Living Situation: Significant Other Current Living Situation Comment: house- no stairs Other Information That Helps Us Care for You: Yes Feels Safe at Home: Yes Safety Concerns: Feels Safe At This Time Assistive Devices: Glasses, Hearing Aid - Bilateral and Walker Review of Systems Review of Systems: All systems reviewed & are unremarkable except as noted in HPI & below Physical Exam Physical Exam: Ill appearing, short of breath Constitutional: WD/WN, vitals as above Neck: trachea midline, no thyromegaly Respiratory: + uses accessory muscles and + tachypnei c Cardiovascular: RRR, no murmur, no edema Gastrointestinal (Abdomen): Inspection/Auscultation: abdomen normal to inspection and + abdomen distended Percussion/Palpation: + abdomen tender Results & Data Vital Signs (Past 12 Hours) Vital Signs Temp Pulse Pulse Pulse Resp BP BP 04/26/24 06:00 36.6 C 102 H 22 112/66 04/26/24 05:00 36.7 C 105 H 22 103/66 04/26/24 04:00 37 C 107 H 30 H 99/65 L 04/26/24 03:00 36.9 C 114 H 25 H 96/66 L 04/26/24 02:00 116 H 25 H 100/58 L 04/26/24 01:30 116 H 31 H 04/26/24 01:07 36.4 C L 116 H 30 H 101/61 04/26/24 00:58 123 H 04/26/24 00:58 04/26/24 00:58 36.4 C L 04/26/24 00:00 123 H 30 H 96/58 L 04/25/24 23:36 124 H 34 H 91/69 L 04/25/24 23:19 124 H 04/25/24 22:57 124 H 34 H 92/60 L 04/25/24 22:30 123 H 30 H 103/66 04/25/24 22:00 126 H 29 H 103/81 04/25/24 21:45 126 H 32 H 105/63 04/25/24 21:30 124 H 39 H 86/69 L 04/25/24 21:25 124 H 107/70 Pulse Ox O2 Del Method O2 Flow Rate 04/26/24 06:00 100 Oxymask 2 04/26/24 05:00 100 Oxymask 2 04/26/24 04:00 100 Oxymask 2 04/26/24 03:00 100 Oxymask 2 04/26/24 02:00 100 Oxymask 2 04/26/24 01:30 100 Oxymask 2 04/26/24 01:07 100 Oxymask 2 04/26/24 00:58 04/26/24 00:58 Oxymask 2 04/26/24 00:58 04/26/24 00:00 100 Oxymask 3 04/25/24 23:36 100 Oxymask 3 04/25/24 23:19 04/25/24 22:57 100 Oxymask 3 04/25/24 22:30 100 Oxymask 3 04/25/24 22:00 100 Oxymask 3 04/25/24 21:45 100 Oxymask 3 04/25/24 21:30 100 Oxymask 3 04/25/24 21:25 100 Oxymask 3 Laboratory Results 04/26/24 04/26/24 04/26/24 Range/Units 05:25 02:47 01:04 WBC 2.21 L (4.8-10.8) K/ul RBC 2.62 L (4.70-6.10) M/uL Hgb 7.8 L (14.0-18.0) g/dl POC Hgb (14.0-18.0) g/dl Hct 23.5 L (42.0-52.0) % POC Hct (42-52) % MCV 89.7 (80.0-100.0) fL MCH 29.8 (25.0-34.0) pg MCHC 33.2 (32.0-36.0) g/dL RDW Std Deviation 57.7 H (36.4-46.3) fL RDW Coeff of Loli 17.4 H (11.5-14.5) % Plt Count 206 (130-400) K/uL MPV 9.8 (9.4-12.4) fL Immature Gran % (Auto) % Neut % (Auto) % Lymph % (Auto) % [place] % (Auto) % Eos % (Auto) % Baso % (Auto) % Neut # (Auto) (1.40-6.50) K/uL Lymph # (Auto) (1.20-3.40) K/uL [place] # (Auto) (0.11-0.59) K/uL Eos # (Auto) (0.00-0.50) K/uL Baso # (Auto) (0.00-0.20) K/uL Immature Gran # (Auto) (0.01-0.20) K/uL Neutrophils % (Manual) 61 % Lymphocytes % (Manual) 16 % Monocytes % (Manual) 6 % Metamyelocytes % (Man) 17 % Neutrophils # (Manual) 1.35 L (1.40-6.50) K/uL Total Absolute Neuts 1.35 L (1.4-6.5) K/uL Lymphocytes # (Manual) 0.35 L (1.2-3.4) K/uL Total Abs Lymphocytes 0.35 L (1.2-3.4) K/uL Monocytes # (Manual) 0.13 (0.11-0.59) K/uL Metamyelocytes # (Man) 0.38 H (0-0) K/uL Toxic Vacuolation 1+ PT (9.0-12.0) Seconds INR (0.9-1.1) VBG pH (7.36-7.41) VBG pCO2 (38-50) mmHg VBG pO2 mmHg VBG HCO3 mmol/L VBG O2 Saturation % VBG Base Excess mEq/L POC Sodium (135-144) mmol/L Sodium 133 L (136-145) mmol/L POC Potassium (3.3-5.0) mmol/L Potassium 4.1 (3.5-5.1) mmol/L POC Chloride (101-112) mmol/L Chloride 104 (98-107) mmol/L Carbon Dioxide 18 L (21-32) mmol/L POC Total CO2 (24-31) mmol/L Anion Gap 11 (3-11) POC Anion Gap (16-25) mmol/L POC BUN (7-18) mg/dl BUN 27 H (6-23) mg/dl Creatinine 1.05 (0.6-1.4) mg/dl POC Creatinine (0.6-1.3) mg/dl Est Cr Clr Drug Dosing 54.3 ml/min eGFR 72.21 BUN/Creatinine Ratio 25.7 H (10-20) Glucose 151 H (70-99(Fasting)) mg/dl POC Glucose 137 H (70-99) mg/dl POC Glucose (other) (70-99) mg/dl Lactate 3.1 H* (0.4-2.0) mmol/L Calcium 8.5 L (8.6-10.3) mg/dl POC Ioniz Calcium Christie (1.12-1.32) mmol/l Phosphorus 3.3 (2.5-4.9) mg/dl Magnesium 1.7 (1.7-2.4) mg/dl Total Bilirubin 2.0 H (0.2-1.0) mg/dl Direct Bilirubin 1.3 H (0-0.2) mg/dl AST 73 H (13-39) U/L ALT 35 (7-52) U/L Alkaline Phosphatase 205 H (34-104) U/L Troponin I High Sens 748.3 H* D (0-20) pg/ml Total Protein 5.1 L (6.0-8.3) gm/dl Albumin 2.6 L (3.4-5.0) gm/dl Procalcitonin (0-0.5) ng/ml Random Cortisol mcg/dl Urine Color Dark Yellow Urine Appearance Clear (Clear) Urine pH 5.5 (4.5-7.5) Ur Specific [place] 1.027 (1.000-1.030) Urine Protein Trace H (Negative) Urine Glucose (UA) Negative (Negative) Urine Ketones Negative (Negative) Urine Blood Negative (Negative) Urine Nitrite Negative (Negative) Urine Bilirubin 1+ H (Negative) Urine Urobilinogen Negative (Negative) Ur Leukocyte Esterase Trace H (Negative) Urine WBC (Auto) 0-5 (0-5) /hpf Urine RBC (Auto) 6-10 H (0-2) /hpf U Hyaline Cast (Auto) 3-5 H (0-2) /lpf U Epithel Cells (Auto) 0-2 (0-2) /hpf Urine Bacteria (Auto) None Seen (None Seen) Calcium Oxalate Crystal Present A (None Prsent) Nasal Screen MRSA (PCR) (Negative) Adenovirus (PCR) (NotDetected) B. pertussis DNA (PCR) (NotDetected) B.parapertussis DNA PCR (NotDetected) C. pneumoniae DNA (PCR) (NotDetected) Coronavirus OC43 (PCR) (NotDetected) Coronavirus HKU1 (PCR) (NotDetected) Coronavirus 229E (PCR) (NotDetected) SARS-CoV-2 (PCR) (NotDetected) Coronavirus NL63 (PCR) (NotDetected) Human Metapneumovir PCR (NotDetected) Influenza Type A (PCR) (NotDetected) Influenza Type B (PCR) (NotDetected) M. pneumoniae (PCR) (NotDetected) Parainfluenza 1 (PCR) (NotDetected) Parainfluenza 2 (PCR) (NotDetected) Parainfluenza 3 (PCR) (NotDetected) Parainfluenza 4 (PCR) (NotDetected) RSV (PCR) (NotDetected) Entero/Rhino (PCR) (NotDetected) 04/26/24 04/25/24 04/25/24 Range/Units 00:57 20:38 18:16 WBC (4.8-10.8) K/ul RBC (4.70-6.10) M/uL Hgb (14.0-18.0) g/dl POC Hgb (14.0-18.0) g/dl Hct (42.0-52.0) % POC Hct (42-52) % MCV (80.0-100.0) fL MCH (25.0-34.0) pg MCHC (32.0-36.0) g/dL RDW Std Deviation (36.4-46.3) fL RDW Coeff of Loli (11.5-14.5) % Plt Count (130-400) K/uL MPV (9.4-12.4) fL Immature Gran % (Auto) % Neut % (Auto) % Lymph % (Auto) % [place] % (Auto) % Eos % (Auto) % Baso % (Auto) % Neut # (Auto) (1.40-6.50) K/uL Lymph # (Auto) (1.20-3.40) K/uL [place] # (Auto) (0.11-0.59) K/uL Eos # (Auto) (0.00-0.50) K/uL Baso # (Auto) (0.00-0.20) K/uL Immature Gran # (Auto) (0.01-0.20) K/uL Neutrophils % (Manual) % Lymphocytes % (Manual) % Monocytes % (Manual) % Metamyelocytes % (Man) % Neutrophils # (Manual) (1.40-6.50) K/uL Total Absolute Neuts (1.4-6.5) K/uL Lymphocytes # (Manual) (1.2-3.4) K/uL Total Abs Lymphocytes (1.2-3.4) K/uL Monocytes # (Manual) (0.11-0.59) K/uL Metamyelocytes # (Man) (0-0) K/uL Toxic Vacuolation PT 16.6 H (9.0-12.0) Seconds INR 1.6 H (0.9-1.1) VBG pH (7.36-7.41) VBG pCO2 (38-50) mmHg VBG pO2 mmHg VBG HCO3 mmol/L VBG O2 Saturation % VBG Base Excess mEq/L POC Sodium (135-144) mmol/L Sodium (136-145) mmol/L POC Potassium (3.3-5.0) mmol/L Potassium (3.5-5.1) mmol/L POC Chloride (101-112) mmol/L Chloride (98-107) mmol/L Carbon Dioxide (21-32) mmol/L POC Total CO2 (24-31) mmol/L Anion Gap (3-11) POC Anion Gap (16-25) mmol/L POC BUN (7-18) mg/dl BUN (6-23) mg/dl Creatinine (0.6-1.4) mg/dl POC Creatinine (0.6-1.3) mg/dl Est Cr Clr Drug Dosing ml/min eGFR BUN/Creatinine Ratio (10-20) Glucose (70-99(Fasting)) mg/dl POC Glucose (70-99) mg/dl POC Glucose (other) (70-99) mg/dl Lactate 2.9 H* (0.4-2.0) mmol/L Calcium (8.6-10.3) mg/dl POC Ioniz Calcium Christie (1.12-1.32) mmol/l Phosphorus (2.5-4.9) mg/dl Magnesium (1.7-2.4) mg/dl Total Bilirubin (0.2-1.0) mg/dl Direct Bilirubin (0-0.2) mg/dl AST (13-39) U/L ALT (7-52) U/L Alkaline Phosphatase (34-104) U/L Troponin I High Sens 20.0 (0-20) pg/ml Total Protein (6.0-8.3) gm/dl Albumin (3.4-5.0) gm/dl Procalcitonin (0-0.5) ng/ml Random Cortisol 47.33 mcg/dl Urine Color Urine Appearance (Clear) Urine pH (4.5-7.5) Ur Specific [place] (1.000-1.030) Urine Protein (Negative) Urine Glucose (UA) (Negative) Urine Ketones (Negative) Urine Blood (Negative) Urine Nitrite (Negative) Urine Bilirubin (Negative) Urine Urobilinogen (Negative) Ur Leukocyte Esterase (Negative) Urine WBC (Auto) (0-5) /hpf Urine RBC (Auto) (0-2) /hpf U Hyaline Cast (Auto) (0-2) /lpf U Epithel Cells (Auto) (0-2) /hpf Urine Bacteria (Auto) (None Seen) Calcium Oxalate Crystal (None Prsent) Nasal Screen MRSA (PCR) Negative (Negative) Adenovirus (PCR) (NotDetected) B. pertussis DNA (PCR) (NotDetected) B.parapertussis DNA PCR (NotDetected) C. pneumoniae DNA (PCR) (NotDetected) Coronavirus OC43 (PCR) (NotDetected) Coronavirus HKU1 (PCR) (NotDetected) Coronavirus 229E (PCR) (NotDetected) SARS-CoV-2 (PCR) (NotDetected) Coronavirus NL63 (PCR) (NotDetected) Human Metapneumovir PCR (NotDetected) Influenza Type A (PCR) (NotDetected) Influenza Type B (PCR) (NotDetected) M. pneumoniae (PCR) (NotDetected) Parainfluenza 1 (PCR) (NotDetected) Parainfluenza 2 (PCR) (NotDetected) Parainfluenza 3 (PCR) (NotDetected) Parainfluenza 4 (PCR) (NotDetected) RSV (PCR) (NotDetected) Entero/Rhino (PCR) (NotDetected) 04/25/24 04/25/24 04/25/24 Range/Units 18:11 18:09 18:06 WBC 1.83 L (4.8-10.8) K/ul RBC 3.03 L (4.70-6.10) M/uL Hgb 8.9 L (14.0-18.0) g/dl POC Hgb 9.2 L (14.0-18.0) g/dl Hct 27.1 L (42.0-52.0) % POC Hct 27 L (42-52) % MCV 89.4 (80.0-100.0) fL MCH 29.4 (25.0-34.0) pg MCHC 32.8 (32.0-36.0) g/dL RDW Std Deviation 57.6 H (36.4-46.3) fL RDW Coeff of Loli 17.6 H (11.5-14.5) % Plt Count 256 (130-400) K/uL MPV 9.5 (9.4-12.4) fL Immature Gran % (Auto) 0.0 % Neut % (Auto) 61.7 % Lymph % (Auto) 30.1 % [place] % (Auto) 4.4 % Eos % (Auto) 3.3 % Baso % (Auto) 0.5 % Neut # (Auto) 1.13 L (1.40-6.50) K/uL Lymph # (Auto) 0.55 L (1.20-3.40) K/uL [place] # (Auto) 0.08 L (0.11-0.59) K/uL Eos # (Auto) 0.06 (0.00-0.50) K/uL Baso # (Auto) 0.01 (0.00-0.20) K/uL Immature Gran # (Auto) 0.00 L (0.01-0.20) K/uL Neutrophils % (Manual) % Lymphocytes % (Manual) % Monocytes % (Manual) % Metamyelocytes % (Man) % Neutrophils # (Manual) (1.40-6.50) K/uL Total Absolute Neuts (1.4-6.5) K/uL Lymphocytes # (Manual) (1.2-3.4) K/uL Total Abs Lymphocytes (1.2-3.4) K/uL Monocytes # (Manual) (0.11-0.59) K/uL Metamyelocytes # (Man) (0-0) K/uL Toxic Vacuolation 2+ PT (9.0-12.0) Seconds INR (0.9-1.1) VBG pH 7.37 (7.36-7.41) VBG pCO2 38 (38-50) mmHg VBG pO2 36 mmHg VBG HCO3 22 mmol/L VBG O2 Saturation < 60.0 % VBG Base Excess -2.9 mEq/L POC Sodium 131 L (135-144) mmol/L Sodium 130 L (136-145) mmol/L POC Potassium 4.3 (3.3-5.0) mmol/L Potassium 4.3 (3.5-5.1) mmol/L POC Chloride 101 (101-112) mmol/L Chloride 100 (98-107) mmol/L Carbon Dioxide 21 (21-32) mmol/L POC Total CO2 19 L (24-31) mmol/L Anion Gap 9 (3-11) POC Anion Gap 16.0 (16-25) mmol/L POC BUN 21 H (7-18) mg/dl BUN 23 (6-23) mg/dl Creatinine 0.91 (0.6-1.4) mg/dl POC Creatinine 0.9 (0.6-1.3) mg/dl Est Cr Clr Drug Dosing 62.1 ml/min eGFR 85.73 BUN/Creatinine Ratio 25.3 H (10-20) Glucose 118 H (70-99(Fasting)) mg/dl POC Glucose (70-99) mg/dl POC Glucose (other) 117 H (70-99) mg/dl Lactate 4.3 H* (0.4-2.0) mmol/L Calcium 8.3 L (8.6-10.3) mg/dl POC Ioniz Calcium Christie 1.19 (1.12-1.32) mmol/l Phosphorus (2.5-4.9) mg/dl Magnesium 1.6 L (1.7-2.4) mg/dl Total Bilirubin 1.4 H (0.2-1.0) mg/dl Direct Bilirubin 0.6 H (0-0.2) mg/dl AST 48 H (13-39) U/L ALT 36 (7-52) U/L Alkaline Phosphatase 345 H (34-104) U/L Troponin I High Sens 20.7 H (0-20) pg/ml Total Protein 5.7 L (6.0-8.3) gm/dl Albumin 2.3 L (3.4-5.0) gm/dl Procalcitonin 0.66 H (0-0.5) ng/ml Random Cortisol mcg/dl Urine Color Urine Appearance (Clear) Urine pH (4.5-7.5) Ur Specific [place] (1.000-1.030) Urine Protein (Negative) Urine Glucose (UA) (Negative) Urine Ketones (Negative) Urine Blood (Negative) Urine Nitrite (Negative) Urine Bilirubin (Negative) Urine Urobilinogen (Negative) Ur Leukocyte Esterase (Negative) Urine WBC (Auto) (0-5) /hpf Urine RBC (Auto) (0-2) /hpf U Hyaline Cast (Auto) (0-2) /lpf U Epithel Cells (Auto) (0-2) /hpf Urine Bacteria (Auto) (None Seen) Calcium Oxalate Crystal (None Prsent) Nasal Screen MRSA (PCR) (Negative) Adenovirus (PCR) Not Detected (NotDetected) B. pertussis DNA (PCR) Not Detected (NotDetected) B.parapertussis DNA PCR Not Detected (NotDetected) C. pneumoniae DNA (PCR) Not Detected (NotDetected) Coronavirus OC43 (PCR) Not Detected (NotDetected) Coronavirus HKU1 (PCR) Not Detected (NotDetected) Coronavirus 229E (PCR) Not Detected (NotDetected) SARS-CoV-2 (PCR) Not Detected (NotDetected) Coronavirus NL63 (PCR) Not Detected (NotDetected) Human Metapneumovir PCR Not Detected (NotDetected) Influenza Type A (PCR) Not Detected (NotDetected) Influenza Type B (PCR) Not Detected (NotDetected) M. pneumoniae (PCR) Not Detected (NotDetected) Parainfluenza 1 (PCR) Not Detected (NotDetected) Parainfluenza 2 (PCR) Not Detected (NotDetected) Parainfluenza 3 (PCR) Not Detected (NotDetected) Parainfluenza 4 (PCR) Not Detected (NotDetected) RSV (PCR) Not Detected (NotDetected) Entero/Rhino (PCR) Not Detected (NotDetected) Diagnostic Findings Chest X-Ray 04/25/24 17:48 EXAM: Portable AP chest radiograph TECHNIQUE: AP portable radiograph of the chest was obtained. INDICATION: Shortness of breath. Sepsis Comparison: Chest radiograph April 01, 2024. FINDINGS: LINES and TUBES: Right-sided Port-A-Cath with tip again projecting over the superior cavoatrial junction. CARDIOVASCULAR: Cardiac silhouette is stably enlarged in size. Mediastinal clips. LUNGS/PLEURA: Partial interval improvement of the streaky right upper lobe airspace densities. Slight interval increase in the left greater than right bibasilar densities. No significant pleural fluid. No discernible pneumothorax. OSSEOUS/OTHER: No displaced acute osseous process identified. Median sternotomy wires, several which are fractured. IMPRESSION: Compared to previous radiograph from April 01, 2024, there has been a mild interval improvement in the right upper lobe streaky opacities. Residual airspace disease suggested in this area. Slight interval increase in the left greater than right bibasilar densities could represent atelectasis or mild airspace disease. Electronically signed by Art Daniels 04-25-2024 7:[address] 04/25/24 17:50 Exam(s): CT HEAD Without Contrast EXAM: CT Head Without Intravenous Contrast CLINICAL HISTORY: Reason for exam: fall. TECHNIQUE: Axial computed tomography images of the head/brain without intravenous contrast. CTDI is 37.69 mGy and DLP is 624.41 mGy-cm. Automated exposure control was utilized for the study. A dose lowering technique was utilized adhering to the principles of ALARA. COMPARISON: 02/25/24 FINDINGS: Brain: Age-related parenchymal volume loss. Mild chronic small vessel ischemic change. Pretty-white matter differentiation maintained. No hemorrhage, mass effect, parenchymal edema, or midline shift. Ventricles: Unremarkable. No hydrocephalus. Bones/joints: Unremarkable. No acute fracture. Soft tissues: Unremarkable. Vasculature: Intracranial atherosclerosis. Sinuses: Unremarkable as visualized. Mastoid air cells: Unremarkable as visualized. No mastoid effusion. Orbits: Lens replacement. IMPRESSION: No acute intracranial process. Electronically signed by: Mk Phillip M.D. 04/25/24 20:42 PM Abdomen/Pelvis CT 04/25/24 19:00 Exam(s): CT ABDOMEN + PELVIS With Contrast IV Amt: 90ml optiray 320 EXAM: CT Abdomen and Pelvis With Intravenous Contrast CLINICAL HISTORY: Reason for exam: N/V. TECHNIQUE: Axial computed tomography images of the abdomen and pelvis with intravenous contrast. CTDI is 23.96 mGy and DLP is 1324.7 mGy-cm. Automated exposure control was utilized for the study. A dose lowering technique was utilized adhering to the principles of ALARA. CONTRAST: Patient received 90ml optiray 320 of IV contrast COMPARISON: 04/01/24 FINDINGS: Lung bases: Numerous subpleural pulmonary micronodules at the lung bases. Some increased airspace opacity at the right lung base. Pleural space: Trace bilateral pleural effusions. Heart: Previous sternotomy and likely CABG. Coronary artery atherosclerosis. No cardiomegaly. Partially imaged central venous catheter extending to the cavoatrial junction. Mediastinum: Fluid-filled distal esophagus, new from prior. ABDOMEN: Liver: Extensive hepatic metastatic disease, similar to prior. Gallbladder and bile ducts: Metallic common bile duct stent in place. Associated pneumobilia. Similar gallbladder distention with layering sludge. No calcified stones. Pancreas: Suggestion of ill-defined pancreatic head mass measuring 2.7 cm. No ductal dilation. Spleen: Unremarkable. No splenomegaly. Adrenals: Unremarkable. No mass. Kidneys and ureters: Unremarkable. No solid mass. No hydronephrosis. Stomach and bowel: No mechanical bowel obstruction. Diverticulosis without diverticulitis. Wall thickening involving the duodenum and multiple segments of small bowel appears increased from prior. PELVIS: Appendix: Normal appendix. Bladder: Unremarkable. No mass. Reproductive: Unremarkable as visualized. ABDOMEN and PELVIS: Intraperitoneal space: Mild-moderate ascites, increased from prior. No free air. Bones/joints: Mild spinal megaly. No acute fracture or dislocation. Soft tissues: Bilateral inguinal hernias containing fat and ascites, similar to prior. Mesenteric edema. Vasculature: Atherosclerosis. 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 Lymph nodes: Unremarkable. No enlarged lymph nodes. IMPRESSION: 1. Fluid-filled esophagus related to vomiting. Some increased airspace opacity at the right lung base. A small amount of aspiration is not excluded. 2. Wall thickening involving the duodenum and multiple segments of small bowel appears increased from prior. Correlate for enteritis. 3. Extensive hepatic metastatic disease, similar to prior. Suggestion of ill-defined pancreatic head mass measuring 2.7 cm. 4. Mild-moderate ascites, increased from prior. 5. 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 Electronically signed by: Mk Phillip M.D. 04/25/24 20:[address] 04/25/24 22:57 Exam(s): CT CHEST Without Contrast EXAM: CT Chest Without Intravenous Contrast CLINICAL HISTORY: Reason for exam: hypoxia. TECHNIQUE: Axial computed tomography images of the chest without intravenous contrast. CTDI is in 10.37 mGy and DLP is 293.36 mGy-cm. Automated exposure control was utilized for the study. A dose lowering technique was utilized adhering to the principles of ALARA. COMPARISON: 04/01/24 FINDINGS: Lungs: Numerous bilateral pulmonary micronodules, largest 5 mm in the right lower lobe (series 4, image 125). Emphysema. Right upper lobe ground-glass opacity, similar to prior. Mild dependent right basilar airspace opacity. Pleural space: Trace pleural effusions. No pneumothorax. Heart: Sternotomy and CABG. Coronary artery atherosclerosis. No cardiomegaly. No significant pericardial effusion. Mediastinum: Small hiatal hernia with fluid-filled esophagus. Bones/joints: Unremarkable. No acute fracture. No dislocation. Soft tissues: Unremarkable. Vasculature: Thoracic aortic atherosclerosis without aneurysm. Lymph nodes: Unremarkable. No enlarged lymph nodes. Upper abdomen: Reported separately. Tubes, lines and devices: Right chest wall internal jugular vein approach port catheter with tip in the upper right atrium. IMPRESSION: 1. Right upper lobe ground-glass opacity, similar to prior. This could reflect chronic interstitial change versus viral/atypical infection. 2. Mild dependent right basilar airspace opacity, potentially a small amount of aspiration. 3. Numerous bilateral pulmonary micronodules, largest 5 mm in the right lower lobe (series 4, image 125). Per Fleischner Society guidelines, no follow-up is indicated. However, given history of metastatic pancreatic cancer, the possibility of pulmonary metastases cannot be excluded, and follow-up may be performed as clinically indicated. 4. Small hiatal hernia with fluid-filled esophagus, likely due to vomiting. 5. Trace pleural effusions. Electronically signed by: Mk Phillip M.D. 04/26/24 00:47 AM
[2024-04-26] MEDS: FLUTICASONE PROPIONATE NA SPR 16 GM BTL SCH (09:29)
[2024-04-26] MEDS: HEPARIN 25000 UNIT/500 ML D5W 25,000 UNITS/500 ML BAG IV SCH (09:29)
[2024-04-26] MEDS: MAGNESIUM OXIDE 400 MG TAB PO SCH (09:30)
[2024-04-26] MEDS: PANTOprazole 40 MG TAB PO SCH (09:30)
--- NOTE | 2024-04-26 09:46 | Pulmonary Consultation ---
Date of Consultation April 26, 2024 Assessment & Plan (1) Pneumonia: Laterality: right Lung location: upper lobe of lung Pneumonia type: due to unspecified organism Qualified Code(s): J18.9 - Pneumonia, unspecified organism (2) COPD with emphysema: (3) Elevated hemidiaphragm: (4) Abdominal ascites: (5) Pancreatic cancer: Pancreatic malignancy location: other parts of pancreas Qualified Code(s): C25.7 - Malignant neoplasm of other parts of pancreas Plan CT chest 04/25/2024 personally reviewed: Centrilobular and paraseptal emphysema appreciated bilaterally Patient also has some interstitial thickening in the right upper lobe Peripheral opacity/nodularity in the right lower lobe posteriorly Significant subcarinal lymphadenopathy 2D echo 04/26/2024: EF 50-55%, moderate to severe inferior wall hypokinesis, RVSP 30-40 mmHg, RV normal in size and function, mild to moderate aortic stenosis --Right lower lobe pneumonia Nasal MRSA negative Procalcitonin 0.66 Respiratory BioFire negative for everything on 04/25/2024 -- COPD with emphysema Not on any inhalers at home Nebulized inhalers while in the hospital --Elevated right hemidiaphragm Likely chronic especially with recent mets and hepatomegaly Incentive spirometer will be beneficial --History of DVT On Eliquis -- Metastatic pancreatic cancer with moderate to large ascites With pneumobilia on the latest CT abdomen pelvis Care as per primary team Plan: Continue with antibiotics for total of 5 days Nasal MRSA is negative, if vancomycin is given for possible MRSA pneumonia then okay to discontinue Nebulized Perforomist and budesonide while in the hospital On discharge would recommend either Stiolto or Anoro Follow-up BNP and if it is elevated would recommend diuresis to keep the patient negative balance Incentive spirometry Patient will benefit from paracentesis Case was discussed with primary team Please note the above document was generated using voice recognition software. It may contain grammatical, syntax or spelling errors.Any formal questions or concerns about the content, text or information contained within the body of this dictation should be directly addressed to the provider for clarification. History of Present Illness Attending Physician: Logan Hogan MD History of Present Illness 78-year-old male present to the hospital for generalized lethargy Past medical history: Metastatic prostate cancer, coronary artery disease s/p CABG in 1999, moderate aortic stenosis, pulmonary hypertension, GERD, BPH, diabetes, systolic CHF Pulmonary consulted for abnormal chest CT At the time of examination patient was on oxygen mask. He was in mild respiratory distress probably because of the abdominal distention which she has Denied any difficulty swallowing. He stated that he did have chemo in the past but it is on hold currently because he always needed admission when he got chemo No fever or chills Denied any dysuria or diarrhea When he coughs he brings up clear phlegm. Denies any chest congestion. Is not on any inhalers at home. Social history: Only [id number] smoking history, quit when he was in his 40s. Was exposed to secondhand smoke from Allergies Allergy/AdvReac Type Severity Reaction Status Date / Time Iodinated Contrast Media Allergy Intermediate Rash Verified 03/20/24 13:05 levofloxacin Allergy Intermediate RASH Verified 03/20/24 13:05 lisinopril AdvReac Mild Cough Verified 03/20/24 13:05 Home Medications Medication Instructions Recorded Confirmed Type multivitamin (Multiple Vitamins 1 tab PO QPM 12/02/18 04/25/24 History tablet) nitroglycerin 0.4 mg sublingual 0.4 mg sublingual Q5M PRN Chest 01/06/19 04/25/24 History tablet Pain #1 tab fluticasone propionate 50 1 spray intranasal QAM 03/16/20 04/25/24 History mcg/actuation nasal spray,suspension pantoprazole 20 mg tablet,delayed 20 mg PO QAM 01/30/24 04/25/24 History release iron,carbonyl 65 mg-vitamin C 125 1 tab PO Q OTHER DAY 02/07/24 04/25/24 History mg tablet,delayed release (Vitron-C) isosorbide mononitrate 60 mg 120 mg PO QAM 02/07/24 04/25/24 History tablet,extended release 24 hr lidocaine-prilocaine 2.5 %-2.5 % 1 applic topical UD 02/07/24 04/25/24 History topical cream ondansetron HCl 8 mg tablet 8 mg PO Q8 PRN Nausea 02/07/24 04/25/24 History prochlorperazine maleate 10 mg 10 mg PO Q6 PRN Nausea 02/07/24 04/25/24 History tablet metformin 500 mg tablet,extended 1,000 mg PO AMPM 03/20/24 04/25/24 History release 24 hr L.acidophilus-L.plantarum-B.animalis-B.longum 1 cap PO DAILYBB 04/01/24 04/25/24 History 2 billion cell capsule (Probiotic Acidophilus Beads) potassium chloride 10 mEq 10 meq PO QAM 04/01/24 04/25/24 History capsule,extended release ranolazine 500 mg tablet,extended 500 mg PO AMHS 04/01/24 04/25/24 History release,12 hr acetaminophen 500 mg tablet 1,000 mg PO Q6H PRN Pain 04/25/24 04/25/24 History apixaban 5 mg tablet 5 mg PO AMHS 04/25/24 04/25/24 History aspirin 81 mg chewable tablet 81 mg PO HS 04/25/24 04/25/24 History (Children's Aspirin) bumetanide 0.5 mg tablet 0.5 mg PO QAM 04/25/24 04/25/24 History cholecalciferol (vitamin D3) 25 25 mcg PO QPM 04/25/24 04/25/24 History mcg (1,000 unit) capsule (Vitamin D3) diphenhydramine HCl 50 mg capsule 50 mg PO UD 04/25/24 04/25/24 History (Banophen) magnesium oxide 400 mg (241.3 mg 400 mg PO AMHS 04/25/24 04/25/24 History magnesium) tablet metoprolol tartrate 25 mg tablet 12.5 mg PO AMHS 04/25/24 04/25/24 History nystatin 100,000 unit/gram topical 1 applic topical BID PRN FUNGAL 04/25/24 04/25/24 History powder (Nystop) RASH prednisone 50 mg tablet 50 mg PO UD 04/25/24 04/25/24 History tamsulosin 0.4 mg capsule 0.4 mg PO AMHS 04/25/24 04/25/24 History Patient History Medical History Pancreatic cancer stage 4; now with mets Hx of renal calculi Dyspnea reason for inhaler, uses every morning Angina pectoris chronic stable class I per cardio; follows closely with [facility] [place] [facility] Non Q wave myocardial infarction 2002; 'questionable per pt' CAD (coronary artery disease) CABG August 1999, LM and LAD stents August 2009, RCA and LAD stents September 2009 Aortic stenosis follows with Dr. Lunsford; mild-mod per 08/27/23 ECHO BPH (benign prostatic hyperplasia) GERD (gastroesophageal reflux disease) Hyperlipidemia Hypertension Type 2 diabetes mellitus Surgical History Hx of CABG 1999 > 4 vessels > [facility] > follows with Dr. Lunsford History of insertion of pancreatic stent (01/16/24) [facility] Hx of biopsy (12/2023) pancreas and liver History of left cataract surgery History of esophagogastroduodenoscopy (EGD) History of colonoscopy History of tooth extraction History of tonsillectomy H/O lithotripsy Hx of cardiac cath 2009 > 5 stents - [facility] (LM and LAD stents August 2009, RCA and LAD stents September 2009) Family History Father Myocardial infarction Other Diabetes Heart disease Social History Smoking Status: Former smoker Tobacco Type: Cigarettes Second Hand Exposure: No; Do You Dip or Chew Tobacco: No; Hx Alcohol Use: Yes Alcohol type: hard liquor Hx Substance Use: No Preferred Language: Iranian Communication Ability: Effective Rfp Writer Required: No Beliefs That Will Affect Care: None marital status: Current Living Situation: Significant Other Current Living Situation Comment: house- no stairs Other Information That Helps Us Care for You: Yes Feels Safe at Home: Yes Safety Concerns: Feels Safe At This Time Assistive Devices: Glasses, Hearing Aid - Bilateral and Walker Review of Systems 2 Review of Systems: All systems reviewed & are unremarkable except as noted in HPI & below Physical Exam 2 Physical Exam: Constitutional: In respiratory distress HEENT: EOMI, PERRLA Respiratory system: Decreased air entry bilaterally, more decreased on the right lower side, no wheeze, rhonchi, mild crackles bilateral lower lobes CVS: S1-S2 positive, positive 2 out of 6 systolic murmur appreciated best at aorta Abdomen: Soft, positive bowel sounds x4, distended, diffuse mild abdominal tenderness, no rebound Extremities: +2 pulses bilaterally radialis/ dorsalis pedis, no cyanosis, +2 pitting edema bilateral lower extremity Neuro: Awake alert oriented x3 Psych: Normal mood and affect G/U: Positive [place] Skin: no rashes, warm and dry Lymphatic: no cervical or axillary lymphadenopathy Results & Data Results & Data Vital Signs (Past 12 Hours) Vital Signs Temp Pulse Pulse Pulse Resp BP BP 04/26/24 06:00 36.6 C 102 H 22 112/66 04/26/24 05:00 36.7 C 105 H 22 103/66 04/26/24 04:00 37 C 107 H 30 H 99/65 L 04/26/24 03:00 36.9 C 114 H 25 H 96/66 L 04/26/24 02:00 116 H 25 H 100/58 L 04/26/24 01:30 116 H 31 H 04/26/24 01:07 36.4 C L 116 H 30 H 101/61 04/26/24 00:58 123 H 04/26/24 00:58 04/26/24 00:58 36.4 C L 04/26/24 00:00 123 H 30 H 96/58 L 04/25/24 23:36 124 H 34 H 91/69 L 04/25/24 23:19 124 H 04/25/24 22:57 124 H 34 H 92/60 L 04/25/24 22:30 123 H 30 H 103/66 04/25/24 22:00 126 H 29 H 103/81 04/25/24 21:45 126 H 32 H 105/63 04/25/24 21:30 124 H 39 H 86/69 L 04/25/24 21:25 124 H 107/70 Pulse Ox O2 Del Method O2 Flow Rate 04/26/24 06:00 100 Oxymask 2 04/26/24 05:00 100 Oxymask 2 04/26/24 04:00 100 Oxymask 2 04/26/24 03:00 100 Oxymask 2 04/26/24 02:00 100 Oxymask 2 04/26/24 01:30 100 Oxymask 2 04/26/24 01:07 100 Oxymask 2 04/26/24 00:58 04/26/24 00:58 Oxymask 2 04/26/24 00:58 04/26/24 00:00 100 Oxymask 3 04/25/24 23:36 100 Oxymask 3 04/25/24 23:19 04/25/24 22:57 100 Oxymask 3 04/25/24 22:30 100 Oxymask 3 04/25/24 22:00 100 Oxymask 3 04/25/24 21:45 100 Oxymask 3 04/25/24 21:30 100 Oxymask 3 04/25/24 21:25 100 Oxymask 3 Laboratory Results 04/26/24 05:25 04/26/24 05:25 PG Care Time/CCT Total # of Minutes Spent Total Time Spent with Patient: Total time spent is greater than 50% in coordination of care (as documented) at patient's floor/unit and/or counseling patient: Coding Level of Care Code 71458 INT INP/OBS CARE MIN Diagnoses Pneumonia J18.9 Laterality: right Lung location: upper lobe of lung Pneumonia type: due to unspecified organism COPD with emphysema J43.9 Elevated hemidiaphragm J98.6 Abdominal ascites R18.8 Malignant neoplasm of other parts of pancreas C25.7 Pancreatic malignancy location: other parts of pancreas
[2024-04-26] MEDS: ACETAMINOPHEN 500 MG TAB ONE (09:54)
--- NOTE | 2024-04-26 10:11 | XCELERA ---
[id number]
--- NOTE | 2024-04-26 10:16 | Pharmacy Report ---
Pharmacy PK ABX Note - Date of Service April 26, 2024 - Assessment and Plan Assessment 78 year old M receiving vancomycin, zosyn, and doxycycline for pulmonary infection. Blood cultures pending. MRSA nasal (-). Renal function stable. Day # 1 of antimicrobial therapy. Plan Vancomycin * Loading dose: 1500 mg IV x 1 * Maintenance dose: 750 mg IV every 12 hours * Regimen is predicted to achieve target AUC/ELIZABETH of 400-600 mg/L.hr * Will obtain a level after ~ 48h of therapy if vancomycin continued, or sooner if clinically indicated. Pharmacy will continue to follow and will adjust dose/frequency as necessary. Thank you. Pharmacy has transitioned to AUC monitoring for vancomycin. AUC/ELIZABETH is the preferred PK/PD target and is associated with decreased risk of nephrotoxicity compared to traditional trough targets.
--- NOTE | 2024-04-26 11:44 | Procedure Note ---
Procedure Note Date of Service April 26, 2024 Bedside Ultrasound: Lung: Right:-Elevated right hemidiaphragm, no pleural effusion, a lines anteriorly Left:-No pleural effusion, a lines anteriorly Heart: Good EF, RVOT normal in size Abdomen: Moderate amount of ascites, hepatic lesions appreciated of different size Please note the above document was generated using voice recognition software. It may contain grammatical, syntax or spelling errors.Any formal questions or concerns about the content, text or information contained within the body of this dictation should be directly addressed to the provider for clarification. [facility] [place] Procedure Codes (Charges) Pulmonary/Thoracic Procedure 1: Pulmonary and Thoracic: 21599 US, Chest, real time with imaging documentation Coding CPT Codes Pulmonary/Thoracic - Pulmonary and Thoracic: 85706 US, Chest, real time with imaging documentation ([id number]) Additional Codes Date of Service (PG.[email or web address])
[2024-04-26] MEDS: DOXYCYCLINE HYCLATE 100 MG in DEXTROSE 5% MINI-B 100 ML IV SCH (12:55)
[2024-04-26] MEDS: VANCOMYCIN 750 MG in SODIUM CHLORIDE 0.9% 250 ML IV SCH (13:03)
[2024-04-26] MEDS ORDERED: VANCOMYCIN HCL 1,000 MG/270 ML BAG IV SCH (14:00)
--- NOTE | 2024-04-26 14:13 | Hospitalist Progress Note ---
Date of Service April 26, 2024 Assessment & Plan (1) Severe sepsis: Plan: 78-year-old male with past medical history significant for diabetes, metastatic pancreatic cancer currently chemo on hold, history of hypertension, history of CAD status post stent and CABG, moderate aortic stenosis, pulmonary hypertension, atherosclerosis bilateral legs, GERD, B12 deficiency, BPH, hyponatremia currently living at [facility] and ambulates with a walker was brought in because of fall. Patient was admitted to [facility] on 04/01/2024 for weakness, right lobe pneumonia and sepsis and was transferred to [place] same-day for severe sepsis and septic shock. At [place] septic shock was thought to be due to ascending cholangitis in the setting of plastic stent occlusion. He had a metastatic pancreatic cancer status post ERCP with stent placement in 12/2023. In [place] GI was consulted and underwent ERCP with metal stent replacement on 04/02/2024 and after that LFTs improved and remained stable. Plan was to repeat stent exchange 6 months by GI. Blood culture drawn at [facility] grew Streptococcus constellatus and Eikenella corrodens. Patient was treated with Unasyn until 04/16/2024. At [place] oncology was consulted for metastatic pancreatic cancer and recommended no chemotherapy for now with current infection and poor performance status and to follow as outpatient for treatment discussion. GI and general surgery consulted for imaging findings with cholecystitis and no active intervention was decided because of poor surgical candidate status. As patient was having increased work of breathing and tachycardia CT PE was done on 04/05/2024 and showed acute pulmonary emboli involving left posterior segmental and right posterior subsegmental pulmonary arteries. Patient was started on Lovenox and and was discharged on Eliquis. Patient at [place] also developed acute hypoxic respiratory failures requiring high flow oxygen in setting of PE and CHF exacerbation and deconditioning. Improved with diuresis. Echo showed EF of 40% grade 1 diastolic function reduced from than before. Cardio recommended follow up outpatient in 1 month. With aggressive diuresis patient was weaned to room air. Patient was discharged on Bumex. Family is in the room. Until today patient was doing okay as per family. Appetite is down not eating much.. Patient denies any headache. Denies any cough. Somewhat hard of hearing. Alert and oriented. Able to answer questions appropriately. Denies any chest pain. Has some back pain. Has abdominal pain 5/10 in severity. Micturating okay. Had 2 loose bowel movements today. He started to vomit after falling down. Patient says he developed some abdominal pain and he thought he will feel better walking when he walked a few steps he felt lightheaded and fell down. No loss of consciousness. After that he started have some vomiting. Patient was hypotensive, tachycardic and hypoxic in ER. Requiring oxy mask. Received aggressive fluid so far. Patient is DNR/DNI. Per the family is okay for short course of pressors if needed. -tachycardic, tachypnic, immunocompromised -elevated lactic acid suggestive of severe sepsis, improved with fluids -sources include enteritis vs. CAP, vs. SBP vs. less likely malignancy related vs. ongoing cholecystitis vs. urinary tract infection -negative MRSA swab Plan: -continue zosyn, stop vancomycin (given negative MRSA swab) -finish fluid resuscitation -f/u culture results -IS ordered (2) Demand ischemia: Plan: -hx of CABG and significant cardiac hx -likely demand in setting of sepsis Plan: -trend troponins -heparin started in AM, per cardiology can stop at this time (3) Abdominal ascites: Plan: -malignant ascites in setting of advanced pancreatic malignancy Plan: -appreciate paracentesis by ICU team -f/u paracentesis labs (4) History of biliary stent insertion: Plan: -appears to be in place and functioning -LFTS downtrending (5) Acute hypoxic respiratory failure: Plan: -noted on imaging, likely cause of CAP -elevated procalcitonin Plan: -treat with zosyn, stop vanc -IS -check respiratory culture -goal oxygen saturation 90% (6) Primary pancreatic cancer with metastasis to other site: Plan: -advanced disease widely metastatic throughout liver, possibly with spread to lungs -had 2 doses of chemotherapy that was difficult to tolerate (7) Pneumonia: Plan: -noted on imaging, likely cause of respiratory failure -elevated procalcitonin Plan: -treat with zosyn, stop vanc -IS -check respiratory culture (8) Hx of CABG: Plan: -noted, see above (9) Elevated LFTs: Plan: -noted, see above (10) Hx of pulmonary embolus: Plan: -continue eliquis (11) Atrial ectopy: Plan: -appears to be new onset -appreciate cardiology recommendations (12) Pancytopenia: Plan: -in setting of chemotherapy, numerous comorbidities, active malignancy Plan: -trend daily Plan Feeding/fluids: regular Analgesia: morphine Sedation: none Thromboprophylaxis: eliquis Head up position: 30 degrees Ulcer prophylaxis: protonix Glycemic control: insulin Spontaneous breathing trial: 2L NC Bowel care: miralax prn Indwelling catheter removal: placed Deescalation of antibiotics: stop vanc, continue zosyn I spent a total of 65 minutes in direct patient care, including [id number] time with the patient and/or family, reviewing medical records, ordering and reviewing diagnostic tests, and coordinating care with other healthcare providers. This time includes: history taking, physical examination, medical decision making, counseling, ECG interpretation, imaging interpretation, lab interpretation, orders, and education, excluding time spent in the performance of separately billed services. I spent a total of 60 minutes providing advanced care planning to the patient and/or family, including [id number] time discussing the patient's health status, prognosis, and treatment options. This time includes specific activities such as: discussing advance directives, goals of care, prognostication, and end-of-life planning. Admission and Anticipated Discharge Date Admission Date: April 25, 2024 Subjective 78-year-old male with past medical history significant for diabetes, metastatic pancreatic cancer currently chemo on hold, history of hypertension, history of CAD status post stent and CABG, moderate aortic stenosis, pulmonary hypertension, atherosclerosis bilateral legs, GERD, B12 deficiency, BPH, hyponatremia Who presented for a fall. In the ED noted to be tachycardic tachypneic and hypotensive. Placed on oxime mask, admitted to medicine for further workup. Patient seen and examined at bedside. Patient states he is feeling better today. He is very frustrated about having to come back and forth to the hospital. Discussed goals and values with the patient see note below for details. [facility] hour spent with patient and family (5 family members, , 2 daughters, brother, son in law (POA)). Meeting began by introducing myself my role in the care team. Each family member introduced themselves. Earlier discussion with patient in regards to his critical condition. Patient is a very good understanding of his current illness, including likely sepsis and significant pancreatic malignancy. He has been in and out of the hospital quite a bit over the past couple months. He states his goals are to stop coming to the hospital and focus on quality of life. He is very frustrated with having to come back and forth to the hospital. He also does not want to suffer. The concept of hospice was resent introduced to the patient. Questions were answered to the best my ability. To care past for discussed with the patient. Wound care path was to continue current level of care during this hospitalization then discharge with hospice services. Other care path was to focus on quality life and comfort right now. Patient would like to continue current care path with no escalation of care, does not want heroic measures, and would like to be comfortable as well. He would like to discharge with hospice services. I then discussed this conversation above with the family. Family had questions regarding prognosis and next steps. This provider discussed that, given his frequent recent admissions, declining functional status, metastatic pancreatic cancer, significant comorbidities his prognosis is likely on the scale of weeks to months likely more on the scale of weeks. The concept of hospice and comfort care was explained to the family at length. Questions were answered to the best my ability. Locations of hospice were discussed, including options for home hospice, hospice in a nursing facility, and hospice in the hospital. The family states that they are unlikely to be able to take care of him at home. They would like to pursue a senior living placement with hospice. The conversation above was then relayed to the patient in the room. He agrees t hat it would be a lot for the family to take care of him and is agreeable to doing senior living placement with hospice. Review of Systems Review of Systems: CONSTITUTIONAL: fatigue, weakness EYES: Patient denies any visual symptoms. EARS, NOSE, AND THROAT: No difficulties with hearing. No symptoms of rhinitis or sore throat. CARDIOVASCULAR: Patient denies chest pains, palpitations, orthopnea and paroxysmal nocturnal dyspnea. RESPIRATORY: shortness of breath GI: abdominal distension/pain, some nausea : No urinary hesitancy or dribbling. No nocturia or urinary frequency. No abnormal urethral discharge. MUSCULOSKELETAL: diffuse weakness, abdominal pain, neck pain NEUROLOGIC: No chronic headaches, no seizures. Patient denies numbness, tingling or weakness. PSYCHIATRIC: Patient denies problems with mood disturbance. No problems with anxiety. ENDOCRINE: No excessive urination or excessive thirst. DERMATOLOGIC: Patient denies any rashes or skin changes. Physical Exam Physical Exam: Gen: A&O 3 NAD, severe cachexia noted HEENT: NCAT, EOMI, not icteric. External ears normal. No rhinorrhea. Dry mucus membranes Neck: Supple, full range of motion, no observable masses, No meningeal sign. Lungs: No Respiratory distress. CV: tachycardic, irregular rhythm Abdomen: distended, fluid wave noted MSK: diffuse weakness noted Skin: No rashes, petechiae, lesions. Normal color per patient. Neuro: Normal Gait, Grossly intact. Psych: Appropriate for situation. Results & Data Results & Data Vital Signs (Past 12 Hours) Vital Signs Temp Pulse Pulse Resp BP BP Pulse Ox 04/26/24 13:00 36.1 C L 108 H 33 H 100 04/26/24 13:00 114/70 04/26/24 12:30 36.1 C L 107 H 24 04/26/24 12:21 36.1 C L 106 H 29 H 99 04/26/24 12:00 105/77 04/26/24 12:00 105/77 04/26/24 11:57 36.2 C L 105 H 18 04/26/24 11:36 36.1 C L 105 H 33 H 100 04/26/24 11:00 107/68 04/26/24 11:00 107/68 04/26/24 11:00 36.1 C L 105 H 22 04/26/24 10:33 36.0 C L 106 H 19 04/26/24 10:27 04/26/24 10:15 36.0 C L 107 H 21 04/26/24 09:36 36.1 C L 104 H 30 H 99 04/26/24 09:09 36.1 C L 104 H 26 H 99 04/26/24 08:30 36.1 C L 102 H 19 04/26/24 08:17 36.0 C L 102 H 25 H 100 04/26/24 08:00 101/69 04/26/24 07:59 36.1 C L 101 H 25 H 04/26/24 07:41 36.2 C L 102 H 33 H 100 04/26/24 07:02 36.3 C L 103 H 24 04/26/24 07:00 107/04/26/24 07:00 10704/26/24 06:50 36.3 C L 103 H 22 100 04/26/24 06:35 36.4 C L 102 H 18 100 04/26/24 06:32 111/67 04/26/24 06:32 111/67 04/26/24 06:23 36.3 C L 102 H 21 100 04/26/24 06:08 36.4 C L 102 H 14 100 04/26/24 06:00 36.6 C 102 H 22 112/66 100 04/26/24 05:59 36.5 C 104 H 29 H 100 04/26/24 05:09 36.7 C 105 H 18 100 04/26/24 05:00 36.7 C 105 H 22 103/66 100 04/26/24 04:30 36.9 C 106 H 28 H 100 04/26/24 04:00 37 C 107 H 30 H 99/65 L 100 04/26/24 03:00 36.9 C 114 H 25 H 96/66 L 100 O2 Del Method O2 Flow Rate 04/26/24 13:00 04/26/24 13:00 04/26/24 12:30 04/26/24 12:21 04/26/24 12:00 04/26/24 12:00 04/26/24 11:57 04/26/24 11:36 04/26/24 11:00 04/26/24 11:00 04/26/24 11:00 04/26/24 10:33 04/26/24 10:27 Oxymask 2 04/26/24 10:15 04/26/24 09:36 04/26/24 09:09 04/26/24 08:30 04/26/24 08:17 04/26/24 08:00 04/26/24 07:59 04/26/24 07:41 04/26/24 07:02 04/26/24 07:00 04/26/24 07:00 04/26/24 06:50 04/26/24 06:35 04/26/24 06:32 04/26/24 06:32 04/26/24 06:23 04/26/24 06:08 04/26/24 06:00 Oxymask 2 04/26/24 05:59 04/26/24 05:09 04/26/24 05:00 Oxymask 2 04/26/24 04:30 04/26/24 04:00 Oxymask 2 04/26/24 03:00 Oxymask 2 Laboratory Results - Personally interpreted, significantly elevated troponin compared to prior likely in setting of sepsis less likely acute coronary syndrome, elevated lactic acid at 3.1 suggested of ongoing ischemia Diagnostic Findings - personally interpreted, CT chest suggestive of possible pneumonia versus effusions plus possible metastatic disease, CT abdomen pelvis suggestive of enteritis and extensive pancreatic metastatic disease Medications Administered Fluticasone Propionate (Fluticasone Propionate Na Spr 16 Gm Btl) 1 sprays NA QAM [facility] Stop: 05/26/24 08:59 Last Admin: 04/26/24 09:29 Dose: 1 sprays Documented By: POOJA Piperacillin Sod/Tazobactam Sod (Zosyn) 4.5 gm in 100 mls @ 25 mls/hr IV Q8H [facility]; Protocol Stop: 05/06/24 03:59 Last Admin: 04/26/24 13:02 Dose: 25 mls/hr Documented By: Infusion: 04/26/24 07:44 Dose: Infused Documented By: Admin: 04/26/24 03:44 Dose: 25 mls/hr Documented By: AMBER Doxycycline Hyclate 100 mg/ (Dextrose) 100 mls @ 50 mls/hr IV Q12H [facility] Stop: 05/01/24 10:59 Last Admin: 04/26/24 12:55 Dose: 50 mls/hr Documented By: POOJA Sodium Chloride (Nss) 1,000 mls @ 100 mls/hr IV .Q10H [facility] Stop: 04/27/24 00:29 Last Admin: 04/26/24 12:55 Dose: 100 mls/hr Documented By: Infusion: 04/26/24 11:45 Dose: Infused Documented By: Infusion: 04/26/24 04:00 Dose: 100 mls/hr Documented By: Infusion: 04/26/24 03:44 Dose: 0 mls/hr Documented By: Admin: 04/26/24 01:29 Dose: 100 mls/hr Documented By: AMBER Albumin Human (Albumin 25%) 12.5 gm in 50 mls @ 50 mls/hr IV Q1H [facility]; Protocol Stop: 04/26/24 18:14 Last Admin: 04/26/24 16:37 Dose: 50 mls/hr Documented By: POOJA Insulin Aspart (Insulin Aspart Per Unit Charge) 0 units SC Q6 AL[facility]AN[facility]O Stop: 05/26/24 00:59 Last Admin: 04/26/24 12:52 Dose: Not Given Documented By: Admin: 04/26/24 06:58 Dose: Not Given Documented By: Admin: 04/26/24 01:25 Dose: Not Given Documented By: AMBER Lactobacillus Acidophilus (Advanced Probiotic 625 Mg Capsule) 625 mg PO DAILYBB ALESSANDRO Stop: 05/26/24 06:29 Last Admin: 04/26/24 07:03 Dose: 625 mg Documented By: AMBER Magnesium Oxide (Magnesium Oxide 400 Mg Tab) 400 mg PO BID [facility] Stop: 05/26/24 08:59 Last Admin: 04/26/24 09:30 Dose: 400 mg Documented By: POOJA Pantoprazole Sodium (Pantoprazole 40 Mg Tab) 40 mg PO QAM ALESSANDRO Stop: 05/26/24 08:59 Last Admin: 04/26/24 09:30 Dose: 40 mg Documented By: POOJA (3) Abdominal ascites Ascites type: malignant Qualified Code(s): R18.0 - Malignant ascites (7) Pneumonia Laterality: right Lung location: upper lobe of lung Pneumonia type: due to unspecified organism Qualified Code(s): J18.9 - Pneumonia, unspecified organism
--- NOTE | 2024-04-26 14:58 | Cardiology Consultation ---
Date of Consultation April 26, 2024 Assessment & Plan (1) Severe sepsis: (2) Pancreatic cancer metastasized to liver: (3) Demand ischemia: (4) CAD (coronary artery disease): (5) S/P coronary artery stent placement: (6) Atrial ectopy: 78-year-old man with metastatic pancreatic carcinoma admitted with sepsis who demonstrated a significant troponin elevation and potential atrial dysrhythmia. No anginal type chest pain and his ECG changes were fairly quickly reversible, given his known underlying coronary artery disease and the fact that he had a similar troponin elevation during hemodynamic stresses February 2024, suspect demand ischemia secondary to severe sepsis is again the etiology for his troponin elevation. Could discontinue IV heparin as he was already on apixaban and it does not appear to be an acute thrombotic event but rather demand ischemia. There was some consideration that he had atrial fibrillation on admission ECG (as well as an ECG from 04/01/2024), but given the very modest heart rate elevation initially and subsequent minimal decline in heart rate (persistent mild sinus tachycardia) despite later ECGs clearly showing sinus, suspect that he has NOT been in atrial fibrillation but rather has sinus tachycardia with frequent ectopy. Even if he were to have transient atrial fibrillation, he is already anticoagulated and his current rhythm is sinus, so no specific int erventions necessary. Case discussed with Dr. Hartley, the focus going forward is likely to shift to comfort oriented care. History of Present Illness Reason for Consultation: myocardial injury Requesting Physician: Logan Hogan MD Attending Physician: Logan Hogan MD History of Present Illness 78-year-old man with complex cardiac history, metastatic pancreatic carcinoma, hospitalized February 2024 with acute cholangitis complicated by NSTEMI and pulmonary embolism, admitted yesterday with severe sepsis, incidentally noted to have possible atrial fibrillation and demonstrating significant troponin rise. Past medical and surgical history (from Dr. Lunsford's consultation February 2024) 1. Coronary artery disease 2. CABG x 4June 1999 3. Left main DESJune 2009 4. LAD ARCADIO x and September 2009 5. RCA DESJuly 2009 6. Chronic stable angina pectoralis 7. Mild to moderate aortic stenosis 8. Hypertension 9. Mild LVH 10. Hypercholesterolemia 11. Diabetes mellitus 12. GERD 13. Nephrolithiasis 14. BPH 15. Metastatic pancreatic carcinomaNov2023 16. Left intraocular lens implant 17. Tonsillectomy At the time of my evaluation, he had moderate abdominal discomfort and distention but no chest pain or dyspnea. Initial ECG suggested atrial fibrillation with ventricular rate 118 bpm, but in retrospect was likely sinus tachycardia with PACs. There was significant anteroseptal ST depression, minor chronic ST elevation in inferior lead, and old inferior infarct. Subsequent ECG was more clearly sinus tachycardia at 103 bpm, ST depression was nearly resolved. Echocardiogram today showed mild pulmonary hypertension but was otherwise similar to January 2024 study with an EF of 50 to 55%, stable inferior wall motion abnormality, mild to moderate with mild MR. Troponin increased from 20 to 949 overnight (similar to his rise during February 2024 hospitalization). Allergies Allergy/AdvReac Type Severity Reaction Status Date / Time Iodinated Contrast Media Allergy Intermediate Rash Verified 03/20/24 13:05 levofloxacin Allergy Intermediate RASH Verified 03/20/24 13:05 lisinopril AdvReac Mild Cough Verified 03/20/24 13:05 Home Medications Medication Instructions Recorded Confirmed Type multivitamin (Multiple Vitamins 1 tab PO QPM 12/02/18 04/25/24 History tablet) nitroglycerin 0.4 mg sublingual 0.4 mg sublingual Q5M PRN Chest 01/06/19 04/25/24 History tablet Pain #1 tab fluticasone propionate 50 1 spray intranasal QAM 03/16/20 04/25/24 History mcg/actuation nasal spray,suspension pantoprazole 20 mg tablet,delayed 20 mg PO QAM 01/30/24 04/25/24 History release iron,carbonyl 65 mg-vitamin C 125 1 tab PO Q OTHER DAY 02/07/24 04/25/24 History mg tablet,delayed release (Vitron-C) isosorbide mononitrate 60 mg 120 mg PO QAM 02/07/24 04/25/24 History tablet,extended release 24 hr lidocaine-prilocaine 2.5 %-2.5 % 1 applic topical UD 02/07/24 04/25/24 History topical cream ondansetron HCl 8 mg tablet 8 mg PO Q8 PRN Nausea 02/07/24 04/25/24 History prochlorperazine maleate 10 mg 10 mg PO Q6 PRN Nausea 02/07/24 04/25/24 History tablet metformin 500 mg tablet,extended 1,000 mg PO AMPM 03/20/24 04/25/24 History release 24 hr L.acidophilus-L.plantarum-B.animalis-B.longum 1 cap PO DAILYBB 04/01/24 04/25/24 History 2 billion cell capsule (Probiotic Acidophilus Beads) potassium chloride 10 mEq 10 meq PO QAM 04/01/24 04/25/24 History capsule,extended release ranolazine 500 mg tablet,extended 500 mg PO AMHS 04/01/24 04/25/24 History release,12 hr acetaminophen 500 mg tablet 1,000 mg PO Q6H PRN Pain 04/25/24 04/25/24 History apixaban 5 mg tablet 5 mg PO AMHS 04/25/24 04/25/24 History aspirin 81 mg chewable tablet 81 mg PO HS 04/25/24 04/25/24 History (Children's Aspirin) bumetanide 0.5 mg tablet 0.5 mg PO QAM 04/25/24 04/25/24 History cholecalciferol (vitamin D3) 25 25 mcg PO QPM 04/25/24 04/25/24 History mcg (1,000 unit) capsule (Vitamin D3) diphenhydramine HCl 50 mg capsule 50 mg PO UD 04/25/24 04/25/24 History (Banophen) magnesium oxide 400 mg (241.3 mg 400 mg PO AMHS 04/25/24 04/25/24 History magnesium) tablet metoprolol tartrate 25 mg tablet 12.5 mg PO AMHS 04/25/24 04/25/24 History nystatin 100,000 unit/gram topical 1 applic topical BID PRN FUNGAL 04/25/24 04/25/24 History powder (Nystop) RASH prednisone 50 mg tablet 50 mg PO UD 04/25/24 04/25/24 History tamsulosin 0.4 mg capsule 0.4 mg PO AMHS 04/25/24 04/25/24 History Patient History Medical History Pancreatic cancer stage 4; now with mets Hx of renal calculi Dyspnea reason for inhaler, uses every morning Angina pectoris chronic stable class I per cardio; follows closely with [facility] [place] Non Q wave myocardial infarction 2002; 'questionable per pt' CAD (coronary artery disease) CABG August 1999, LM and LAD stents August 2009, RCA and LAD stents September 2009 Aortic stenosis follows with Dr. Lunsford; mild-mod per 08/27/23 ECHO BPH (benign prostatic hyperplasia) GERD (gastroesophageal reflux disease) Hyperlipidemia Hypertension Type 2 diabetes mellitus Surgical History Hx of CABG 1999 > 4 vessels > [facility] > follows with Dr. Lunsford History of insertion of pancreatic stent (01/16/24) [facility] Hx of biopsy (12/2023) pancreas and liver History of left cataract surgery History of esophagogastroduodenoscopy (EGD) History of colonoscopy History of tooth extraction History of tonsillectomy H/O lithotripsy Hx of cardiac cath 2009 > 5 stents - [facility] (LM and LAD stents August 2009, RCA and LAD stents September 2009) Family History Father Myocardial infarction Other Diabetes Heart disease Social History Smoking Status: Former smoker Tobacco Type: Cigarettes Second Hand Exposure: No; Do You Dip or Chew Tobacco: No; Hx Alcohol Use: Yes Alcohol type: hard liquor Hx Substance Use: No Preferred Language: Czech Communication Ability: Effective International Account Executive Required: No Beliefs That Will Affect Care: None marital status: Current Living Situation: Significant Other Current Living Situation Comment: house- no stairs Other Information That Helps Us Care for You: Yes Feels Safe at Home: Yes Safety Concerns: Feels Safe At This Time Assistive Devices: Walker Physical Exam Physical Exam: Early white male appears uncomfortable but not acutely distressed. BP normotensive. Pulse 108 bpm and regular. Respirations 33. Skin: no ecchymoses or generalized lesions. HEENT: unremarkable. Neck: JVP with markedly increased respiratory variation but only minimally elevated meniscus, no carotid bruits. Lungs: clear. Cardiac: regular/tachycardic rhythm, intact aortic closure sound with 3/6 crescendo/decrescendo systolic ejection murmur heard best at the left upper sternal border, no diastolic murmur. Abdomen: Protuberant. Extremities: no edema, pulses intact. Neurologic: normal affect and conversation, grossly nonfocal. Results & Data Laboratory Results WBC 2.2, hemoglobin 7.8, normal platelet count. WBC 16.6, INR 1.6. Sodium 133, otherwise normal electrolytes, BUN 27, creatinine 1.05. Troponin as per HPI. Diagnostic Findings Chest x-ray with right upper lobe densities and left greater than right basilar densities. Chest and abdominal CT with multiple abnormalities largely related to metastatic cancer. [facility] Care Time/CCT Total # of Minutes Spent Total Time Spent with Patient: Total time spent is greater than 50% in coordination of care (as documented) at patient's floor/unit and/or counseling patient: Coding Level of Care Code 59392 IN/OBS CONSULT LVL 4,60M Diagnoses Severe sepsis A41.9; R65.20 Pancreatic cancer metastasized to liver C25.9; C78.7 Demand ischemia I24.89 CAD (coronary artery disease) I25.10 S/P coronary artery stent placement Z95.5 Atrial ectopy I49.1
--- NOTE | 2024-04-26 15:13 | Procedure Note ---
Procedure Note Date of Service April 26, 2024 Procedure: Diagnostic therapeutic ultrasound-guided catheter paracentesis Director Of Recruitment And Admissions: Dr. Christopher Foster Indication: Large ascites with shortness of breath Consent: Signed by patient and verified with timeout prior to procedure Anesthesia: 1% lidocaine without epinephrine local. Procedure: Consent was verified and timeout performed. Appropriate imaging studies were reviewed prior to the procedure. Patient was placed in a supine position and limited abdominal ultrasound was performed. See separate imaging. Appropriate site for paracentesis was selected. The skin was prepped and draped in normal sterile fashion. Lidocaine was used for local analgesia. Fluid was aspirated via the finder needle. A small skin kala was made with the scalpel and the catheter over the needle apparatus was advanced via Z technique. Using the syringe one-way valve system, a total of 5450 mL's of dark yellow fluid was removed. The catheter was removed and observed to be intact. A sterile dressing was applied. Fluid was sent for labs, culture and cytology. The patient tolerated the procedure without obvious complication Blood loss: None [facility] Procedure Codes (Charges) Abdomen Abdominal: 69153 Abdominal Paracentesis (diagnostic or therapeutic); W/O imaging Tubes, Drains, and Vasc Access Procedure 1: Tubes, Drains, and Vasc Access: [id number] Ultrasound Guidance For Vascular Coding CPT Codes Abdomen - Abdominal: 42463 Abdominal Paracentesis (diagnostic or therapeutic); W/O imaging ([id number]) Tubes, Drains, and Vasc Access - Tubes, Drains, and Vasc Access: [id number] Ultrasound Guidance For Vascular ([id number]) Additional Codes Date of Service ([facility].SURGERY)
[2024-04-26] MEDS: ALBUMIN 25% 12.5 GM/50 ML VIAL IV SCH (16:37)
[2024-04-26] MEDS ORDERED: POLYETHYLENE (MIRALAX) 17 GM PACK PO PRN (17:03)
[2024-04-26 17:20] LABS: ANTI-Xa, UFH(UnfractionatedHep > 1.50 IU/ml (0.3-0.7)
[2024-04-26] MEDS: MoRPHine SULFATE 4 MG/ML 1 ML CARP\\VIAL IV PRN (17:45)
[2024-04-26 17:46] LABS: Albumin Peritoneal Fluid < 1.5 gm/dl; Total Protein Peritoneal Fluid < 3.0 gm/dl
[2024-04-26 18:02] LABS: Appearance Peritoneal Fluid Slightly Hazy; Color Peritoneal Fluid Yellow; Eosinophils, Fluid 1 %; Mono,Macrophage,Mesothelial 6 %; Neutrophils, Fluid 93 %; RBC Peritoneal Fluid Auto 3000 /uL; WBC Peritoneal Fluid Auto 4978 /ul (0-300)
[2024-04-26] MEDS: BUDESONIDE 0.25 MG/2 ML VIAL (PULMICORT) NEB SCH (20:15)
[2024-04-26] MEDS: FORMOTEROL 20 MCG/2 ML VIAL NEB SCH (20:15)
[2024-04-26] MEDS: ASPIRIN 81 MG ECTAB PO SCH (20:45)
[2024-04-26] MEDS: MULTIVITAMIN TAB PO SCH (20:46)
[2024-04-26] MEDS: CHOLECALCIFEROL 25 MCG (1000 UNITS) TAB PO SCH (20:46)
[2024-04-26] MEDS ORDERED: Nursing to Pharmacy Communication SCH (22:00)
[2024-04-27] MEDS ORDERED: HEPARIN 100 UNIT/ML 5ML FLUSH FLUSH PRN (03:11)
[2024-04-27] MEDS: MoRPHine SULFATE 10 MG/0.5 ML UDP PO PRN (04:06)
[2024-04-27 06:09] LABS: Hematocrit (blood only) 24.2 % (42.0-52.0); Mean Corpuscular Hemoglobin 29.3 pg (25.0-34.0); Mean Corpuscular Hgb Conc 33.1 g/dL (32.0-36.0); Mean Corpuscular Volume 88.6 fL (80.0-100.0); Mean Platelet Volume 9.4 fL (9.4-12.4); Platelet Count 190 K/uL (130-400); RDW Coefficient of Variation 17.4 % (11.5-14.5); RDW Standard Deviation 56.2 fL (36.4-46.3); Red Blood Count 2.73 M/uL (4.70-6.10); White Blood Count 10.55 K/ul (4.8-10.8)
[2024-04-27 06:24] LABS: Albumin Globulin Ratio 1.1 (0.9-2); Albumin Level 2.6 gm/dl (3.4-5.0); Bilirubin,Total 1.6 mg/dl (0.2-1.0); Calcium 8.3 mg/dl (8.6-10.3); Globulin 2.3 gm/dl (2.5-4.0); Magnesium 1.9 mg/dl (1.7-2.4); Potassium 4.4 mmol/L (3.5-5.1); Total Protein 4.9 gm/dl (6.0-8.3)
--- NOTE | 2024-04-27 08:12 | XRay Report ---
XR chest 1V portable CLINICAL HISTORY: significant hypoxia COMPARISON STUDY: Chest radiograph and chest CT April 25, 2024. FINDINGS: Right internal [id number] is in place. There are median sternotomy wires and mediastinal surgical clips. There is no pneumothorax. There are trace bilateral pleural effusions. Cardiomediast inal silhouette is stable. Mild right upper lobe airspace opacity persists. There is pulmonary vascul ar congestion. IMPRESSION: 1. Cardiomegaly with pulmonary vascular congestion. Trace bilateral pleural effusions. 2. Persistent mild right upper lobe airspace opacity. This may be infectious in etiology. Radiographi c follow-up to ensure resolution is recommended. ACT 112: Negative or not required by law. Electronically signed by: Owen Valle M.D. 04/27/2024 8:11 AM
--- NOTE | 2024-04-27 08:36 | Electrocardiogram Report ---
Test Reason : Blood Pressure : */* mmHG Vent. Rate : 106 BPM Atrial Rate : 106 BPM P-R Int : 174 ms QRS Dur : 98 ms QT Int : 356 ms P-R-T Axes : 72 9 -3 degrees QTcB Int : 472 ms Sinus tachycardia with Premature supraventricular complexes Diffuse Nonspecific T wave abnormality Abnormal ECG When compared with ECG of 26-Apr-2024 06:35, No significant change was found Confirmed by Corwin Jasso ([id number]) on 04/27/2024 8:36:19 AM Referred By: REFERRED SELF Confirmed By: Corwin Jasso
[2024-04-27] MEDS: INSULIN ASPART PER UNIT CHARGE SC SCH (08:38)
[2024-04-27] MEDS ORDERED: FERROUS SULFATE 325 MG TAB PO SCH (09:00)
[2024-04-27] MEDS ORDERED: ASCORBIC ACID 500 MG TAB PO SCH (09:00)
[2024-04-27] MEDS: FUROSEMIDE INJ 20 MG/2 ML VIAL IV ONE (13:16)
--- NOTE | 2024-04-27 14:40 | Hospitalist Progress Note ---
Date of Service April 27, 2024 Assessment & Plan (1) Severe sepsis: Plan: 78-year-old male with past medical history significant for diabetes, metastatic pancreatic cancer currently chemo on hold, history of hypertension, history of CAD status post stent and CABG, moderate aortic stenosis, pulmonary hypertension, atherosclerosis bilateral legs, GERD, B12 deficiency, BPH, hyponatremia currently living at personal-long-term and ambulates with a walker was brought in because of fall. Patient was admitted to [facility] on 04/01/2024 for weakness, right lobe pneumonia and sepsis and was transferred to [facility] same-day for severe sepsis and septic shock. At [facility] septic shock was thought to be due to ascending cholangitis in the setting of plastic stent occlusion. He had a metastatic pancreatic cancer status post ERCP with stent placement in 12/2023. In [facility] GI was consulted and underwent ERCP with metal stent replacement on 04/02/2024 and after that LFTs improved and remained stable. Plan was to repeat stent exchange 6 months by GI. Blood culture drawn at [facility] grew Streptococcus constellatus and Eikenella corrodens. Patient was treated with Unasyn until 04/16/2024. At [facility] oncology was consulted for metastatic pancreatic cancer and recommended no chemotherapy for now with current infection and poor performance status and to follow as outpatient for treatment discussion. GI and general surgery consulted for imaging findings with cholecystitis and no active intervention was decided because of poor surgical candidate status. As patient was having increased work of breathing and tachycardia CT PE was done on 04/05/2024 and showed acute pulmonary emboli involving left posterior segmental and right posterior subsegmental pulmonary arteries. Patient was started on Lovenox and and was discharged on Eliquis. Patient at [facility] also developed acute hypoxic respiratory failures requiring high flow oxygen in setting of PE and CHF exacerbation and deconditioning. Improved with diuresis. Echo showed EF of 40% grade 1 diastolic function reduced from than before. Cardio recommended follow up outpatient in 1 month. With aggressive diuresis patient was weaned to room air. Patient was discharged on Bumex. Family is in the room. Until today patient was doing okay as per family. Appetite is down not eating much.. Patient denies any headache. Denies any cough. Somewhat hard of hearing. Alert and oriented. Able to answer questions appropriately. Denies any chest pain. Has some back pain. Has abdominal pain 5/10 in severity. Micturating okay. Had 2 loose bowel movements today. He started to vomit after falling down. Patient says he developed some abdominal pain and he thought he will feel better walking when he walked a few steps he felt lightheaded and fell down. No loss of consciousness. After that he started have some vomiting. Patient was hypotensive, tachycardic and hypoxic in ER. Requiring oxy mask. Received aggressive fluid so far. Patient is DNR/DNI. Per the family is okay for short course of pressors if needed. -tachycardic, tachypnic, immunocompromised -elevated lactic acid suggestive of severe sepsis, improved with fluids -sources include enteritis vs. CAP, vs. SBP vs. less likely malignancy related vs. ongoing cholecystitis vs. urinary tract infection -negative MRSA swab Plan: -continue zosyn/doxy, stop vancomycin (given negative MRSA swab) -finish fluid resuscitation -f/u culture results -IS ordered (2) SBP (spontaneous bacterial peritonitis): Plan: -as noted by significantly elevated neutrophils on tap -source of sepsis above Plan: -pursue 14 day treatment with abx, deescalate abx tomorrow (3) Demand ischemia: Plan: -hx of CABG and significant cardiac hx -likely demand in setting of sepsis (4) Abdominal ascites: Plan: -malignant ascites in setting of advanced pancreatic malignancy Plan: -appreciate paracentesis by ICU team -f/u paracentesis labs (5) History of biliary stent insertion: Plan: -appears to be in place and functioning -LFTS downtrending (6) Acute hypoxic respiratory failure: Plan: -noted on imaging, likely cause of CAP -elevated procalcitonin -also with pulmonary congestin Plan: -treat with zosyn/doxy -give one dose of 20 IV lasix, 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 -IS -check respiratory culture -goal oxygen saturation 90% (7) Primary pancreatic cancer with metastasis to other site: Plan: -advanced disease widely metastatic throughout liver, possibly with spread to lungs -had 2 doses of chemotherapy that was difficult to tolerate (8) Pneumonia: Plan: -noted on imaging, likely cause of respiratory failure -elevated procalcitonin Plan: -treat with zosyn, stop vanc -IS -check respiratory culture (9) Hx of CABG: Plan: -noted, see above (10) Elevated LFTs: Plan: -noted, see above (11) Hx of pulmonary embolus: Plan: -continue eliquis (12) Atrial ectopy: Plan: -appears to be new onset -appreciate cardiology recommendations (13) Pancytopenia: Plan: -in setting of chemotherapy, numerous comorbidities, active malignancy Plan: -trend daily Plan Feeding/fluids: regular Analgesia: morphine Sedation: none Thromboprophylaxis: eliquis Head up position: 30 degrees Ulcer prophylaxis: protonix Glycemic control: insulin Spontaneous breathing trial: NC Bowel care: miralax prn Indwelling catheter removal: placed Deescalation of antibiotics: zosyn/doxy I spent a total of 50 minutes in direct patient care, including [id number] time with the patient and/or family, reviewing medical records, ordering and reviewing diagnostic tests, and coordinating care with other healthcare providers. This time includes: history taking, physical examination, medical decision making, counseling, ECG interpretation, imaging interpretation, lab interpretation, orders, and education, excluding time spent in the performance of separately billed services. Admission and Anticipated Discharge Date Admission Date: April 25, 2024 Subjective patient seen and examined at bedside. Patient is doing much better today. He states his pain is well-controlled with the current pain medications. Gave update to next of kin Johann at phone #[phone], he was appreciative of the update. Review of Systems Review of Systems: CONSTITUTIONAL: fatigue, weakness EYES: Patient denies any visual symptoms. EARS, NOSE, AND THROAT: No difficulties with hearing. No symptoms of rhinitis or sore throat. CARDIOVASCULAR: Patient denies chest pains, palpitations, orthopnea and paroxysmal nocturnal dyspnea. RESPIRATORY: shortness of breath, improved today GI: some abdominal pain, improved from yesterday : No urinary hesitancy or dribbling. No nocturia or urinary frequency. No abnormal urethral discharge. MUSCULOSKELETAL: diffuse weakness, abdominal pain NEUROLOGIC: No chronic headaches, no seizures. Patient denies numbness, tingling or weakness. PSYCHIATRIC: Patient denies problems with mood disturbance. No problems with anxiety. ENDOCRINE: No excessive urination or excessive thirst. DERMATOLOGIC: Patient denies any rashes or skin changes. Physical Exam Physical Exam: Gen: A&O 3 NAD, severe cachexia noted HEENT: NCAT, EOMI, not icteric. External ears normal. No rhinorrhea. Wet mucus membranes Neck: Supple, full range of motion, no observable masses, No meningeal sign. Lungs: No Respiratory distress. CV: tachycardic, irregular rhythm Abdomen: distended, fluid wave noted MSK: diffuse weakness noted Skin: No rashes, petechiae, lesions. Normal color per patient. Neuro: Normal Gait, Grossly intact. Psych: Appropriate for situation. Results & Data Results & Data Vital Signs (Past 12 Hours) Vital Signs Temp Pulse Pulse Resp BP Pulse Ox O2 Del Method 04/27/24 14:10 115 H 04/27/24 13:48 Nasal Cannula 04/27/24 11:13 36.3 C L 114 H 18 108/61 100 Oxymask 04/27/24 08:08 36.3 C L 107 H 23 105/68 92 Nasal Cannula 04/27/24 07:33 108 H 17 99 Nasal Cannula 04/27/24 07:00 104 H 04/27/24 03:39 36.5 C 104 H 18 101/76 98 Nasal Cannula O2 Flow Rate 04/27/24 14:10 04/27/24 13:48 3 04/27/24 11:13 04/27/24 08:08 3 04/27/24 07:33 5 04/27/24 07:00 04/27/24 03:39 4 Laboratory Results - Personally interpreted, patient is elevated leukocytosis and neutrophils and peritoneal fluid consistent with SBP Medications Administered Apixaban (Apixaban 5 Mg Tablet) 5 mg PO BID [facility] Stop: 05/26/24 20:59 Last Admin: 04/27/24 08:48 Dose: 5 mg Documented By: Admin: 04/26/24 20:45 Dose: 5 mg Documented By: [facility] Aspirin (Aspirin 81 Mg Ectab) 81 mg PO HS [facility] Stop: 05/26/24 20:59 Last Admin: 04/26/24 20:45 Dose: 81 mg Documented By: [facility] Budesonide (Budesonide 0.25 Mg/2 Ml Vial (Pulmicort)) 0.25 mg NEB BIDR [facility] Stop: 05/26/24 18:59 Last Admin: 04/27/24 07:31 Dose: 0.25 mg Documented By: [id number] Admin: 04/26/24 20:15 Dose: 0.25 mg Documented By: [facility] Fluticasone Propionate (Fluticasone Propionate Na Spr 16 Gm Btl) 1 sprays NA QAM [facility] Stop: 05/26/24 08:59 Last Admin: 04/27/24 08:49 Dose: 1 sprays Documented By: Admin: 04/26/24 09:29 Dose: 1 sprays Documented By: POOJA Formoterol Fumarate (Formoterol 20 Mcg/2 Ml Vial) 20 mcg NEB BIDR [facility] Stop: 05/26/24 18:59 Last Admin: 04/27/24 07:31 Dose: 20 mcg Documented By: [id number] Admin: 04/26/24 20:15 Dose: 20 mcg Documented By: TMP Piperacillin Sod/Tazobactam Sod (Zosyn) 4.5 gm in 100 mls @ 25 mls/hr IV Q8H [facility]; Protocol Stop: 05/06/24 03:59 Last Admin: 04/27/24 13:16 Dose: 25 mls/hr Documented By: Infusion: 04/27/24 08:30 Dose: Infused Documented By: Admin: 04/27/24 04:08 Dose: 25 mls/hr Documented By: Infusion: 04/27/24 01:02 Dose: Infused Documented By: Admin: 04/26/24 20:41 Dose: 25 mls/hr Documented By: Infusion: 04/26/24 18:13 Dose: Infused Documented By: Admin: 04/26/24 13:02 Dose: 25 mls/hr Documented By: Infusion: 04/26/24 07:44 Dose: Infused Documented By: Admin: 04/26/24 03:44 Dose: 25 mls/hr Documented By: ESG Doxycycline Hyclate 100 mg/ (Dextrose) 100 mls @ 50 mls/hr IV Q12H [facility] Stop: 05/01/24 10:59 Last Admin: 04/27/24 13:16 Dose: 50 mls/hr Documented By: Infusion: 04/27/24 01:02 Dose: Infused Documented By: [facility] Admin: 04/26/24 22:45 Dose: 50 mls/hr Documented By: Infusion: 04/26/24 18:13 Dose: Infused Documented By: Admin: 04/26/24 12:55 Dose: 50 mls/hr Documented By: POOJA Insulin Aspart (Insulin Aspart Per Unit Charge) 0 units SC ACHS [facility] Stop: 05/27/24 07:29 Last Admin: 04/27/24 12:32 Dose: Not Given Documented By: Admin: 04/27/24 08:38 Dose: Not Given Documented By: JOSUE Lactobacillus Acidophilus (Advanced Probiotic 625 Mg Capsule) 625 mg PO DAILYBB [facility] Stop: 05/26/24 06:29 Last Admin: 04/27/24 05:51 Dose: 625 mg Documented By: Admin: 04/26/24 07:03 Dose: 625 mg Documented By: AMBER Magnesium Oxide (Magnesium Oxide 400 Mg Tab) 400 mg PO BID [facility] Stop: 05/26/24 08:59 Last Admin: 04/27/24 08:48 Dose: 400 mg Documented By: Admin: 04/26/24 22:44 Dose: 400 mg Documented By: Admin: 04/26/24 09:30 Dose: 400 mg Documented By: POOJA Morphine Sulfate (Morphine Sulfate 10 Mg/0.5 Ml Udp) 5 mg PO Q4 PRN PRN Reason: Pain Stop: 05/10/24 16:31 Last Admin: 04/27/24 04:06 Dose: 5 mg Documented By: RAISSA Morphine Sulfate (Morphine Sulfate 4 Mg/Ml 1 Ml Carp\Vial) 3 mg IV Q4 PRN PRN Reason: Pain Stop: 05/10/24 16:31 Last Admin: 04/26/24 20:52 Dose: 3 mg Documented By: Admin: 04/26/24 17:45 Dose: 3 mg Documented By: POOJA Multivitamins (Multivitamin Tab) 1 tab PO QPM [facility] Stop: 05/26/24 20:59 Last Admin: 04/26/24 20:46 Dose: 1 tab Documented By: RAISSA Pantoprazole Sodium (Pantoprazole 40 Mg Tab) 40 mg PO QAM [facility] Stop: 05/26/24 08:59 Last Admin: 04/27/24 08:48 Dose: 40 mg Documented By: Admin: 04/26/24 09:30 Dose: 40 mg Documented By: POOJA Vitamin D (Cholecalciferol 25 Mcg (1000 Units) Tab) 25 mcg PO QPM [facility] Stop: 05/26/24 20:59 Last Admin: 02/02/25 20:46 Dose: 25 mcg Documented By: [facility] (4) Abdominal ascites Ascites type: malignant Qualified Code(s): R18.0 - Malignant ascites (8) Pneumonia Laterality: right Lung location: upper lobe of lung Pneumonia type: due to unspecified organism Qualified Code(s): J18.9 - Pneumonia, unspecified organism
[2024-04-27] MEDS: PREGABALIN 25 MG CAP PO SCH (17:13)
[2024-04-28 08:44] LABS: Hematocrit (blood only) 28.3 % (42.0-52.0); Hemoglobin 9.4 g/dl (14.0-18.0); Mean Corpuscular Hgb Conc 33.2 g/dL (32.0-36.0); Mean Corpuscular Volume 87.3 fL (80.0-100.0); Mean Platelet Volume 9.8 fL (9.4-12.4); Nucleated RBC # (auto) 0.02 K/uL (0.00-0.12); Nucleated RBC % (auto) 0.1 %; Platelet Count 261 K/uL (130-400); RDW Standard Deviation 54.7 fL (36.4-46.3); Red Blood Count 3.24 M/uL (4.70-6.10); White Blood Count 13.48 K/ul (4.8-10.8)
[2024-04-28] MEDS: SODIUM CHLORIDE 0.9% 500 ML IV ONE ×2 (09:00→13:17)
[2024-04-28 09:05] LABS: Albumin Globulin Ratio 0.8 (0.9-2); Albumin Level 2.2 gm/dl (3.4-5.0); BUN Creatinine Ratio 29.6 (10-20); Bilirubin,Total 1.2 mg/dl (0.2-1.0); Calcium 8.8 mg/dl (8.6-10.3); Creatinine Clr Calc Pharmacy 52.8 ml/min; Globulin 2.6 gm/dl (2.5-4.0); Phosphorus 3.3 mg/dl (2.5-4.9); Potassium 4.1 mmol/L (3.5-5.1); Total Protein 4.8 gm/dl (6.0-8.3)
[2024-04-28] MEDS ORDERED: VANCOMYCIN CONSULT ACTIVE PRN (11:39)
[2024-04-28 12:01] VITALS: RESP 18; TEMP 98.6; O2SAT 95
--- NOTE | 2024-04-28 13:04 | Electrocardiogram Report ---
Test Reason : Blood Pressure : */* mmHG Vent. Rate : 135 BPM Atrial Rate : * BPM P-R Int : * ms QRS Dur : 102 ms QT Int : 304 ms P-R-T Axes : * 35 133 degrees QTcB Int : 456 ms Probable Sinus tachycardia with frequent Premature atrial complexes Low voltage QRS Diffuse Nonspecific ST and T wave abnormality Abnormal ECG When compared with ECG of 27-Apr-2024 06:08, HR has increased by 29 bpm Confirmed by Corwin Jasso ([id number]) on 04/28/2024 1:03:51 PM Referred By: REFERRED SELF Confirmed By: Corwin Jasso
[2024-04-28] MEDS: D5W AND LACTATED RINGERS 1,000 ML IV SCH (13:17)
[2024-04-28] MEDS: VANCOMYCIN HCL 1,500 MG in SODIUM CHLORIDE 0.9% 500 ML IV ONE (13:18)
--- NOTE | 2024-04-28 13:22 | Pharmacy Report ---
Pharmacy PK ABX Note - Date of Service April 28, 2024 - Assessment and Plan Assessment 78 year old M restarting vancomycin (received 2 doses on 04/26) empirically at this time, also receiving Zosyn + doxycycline for pulmonary infection. WBC trending up over last 3 days, afebrile. Blood & peritoneal cultures negative. MRSA nasal negative. Renal function stable. Plan Vancomycin * Loading dose: 1500 mg IV x 1 * Maintenance dose: 750 mg IV every 12 hours * Regimen is predicted to achieve target AUC/ELIZABETH of 400-600 mg/L.hr * Will obtain a level after ~ 48h of therapy if vancomycin continued, or sooner if clinically indicated. Pharmacy will continue to follow and will adjust dose/frequency as necessary. Thank you. Pharmacy has transitioned to AUC monitoring for vancomycin. AUC/ELIZABETH is the preferred PK/PD target and is associated with decreased risk of nephrotoxicity compared to traditional trough targets.
--- NOTE | 2024-04-28 13:27 | Communication Note ---
Long conversation at bedside with family, KIMBERLEY Wills, patient as well as he was able to participate. At this time it appears patient is declining. Breathing changes, nasolabial fold flattening, weak radial pulse suggestive of terminal decline. Patient states that at this time he would like to focus on his comfort. Pastoral care called, nurse notified in room cleaned up. Patient randi ears comfortable at this time, morphine available and has been received and appears effective. Date of Service: April 28, 2024
[2024-04-28] MEDS ORDERED: GLYCOPYRROLATE 0.2 MG/ML VIAL IV PRN (16:32)
--- NOTE | 2024-04-28 16:37 | Hospitalist Progress Note ---
Date of Service April 28, 2024 Assessment & Plan (1) Severe sepsis: Plan: -tachycardic, tachypnic, immunocompromised -elevated lactic acid suggestive of severe sepsis, improved with fluids -sources include enteritis vs. CAP, vs. SBP vs. less likely malignancy related vs. ongoing cholecystitis vs. urinary tract infection -negative MRSA swab Plan: -comfort care focus -morphine q1hr prn for pain/sob -ativan for agitation/anxiety -robinol for secretions -mouth care ordered -pastoral care ordered -discussed that if patient is still alive in the morning, would be reasonable to get hospice on board for GIP status hospice (2) SBP (spontaneous bacterial peritonitis): Plan: -as noted by significantly elevated neutrophils on tap -source of sepsis above -comfort care (3) Demand ischemia: Plan: -hx of CABG and significant cardiac hx -likely demand in setting of sepsis -comfort care (4) Abdominal ascites: Plan: -malignant ascites in setting of advanced pancreatic malignancy -comfort care (5) History of biliary stent insertion: Plan: -appears to be in place and functioning -LFTS downtrending -comfort care (6) Acute hypoxic respiratory failure: Plan: -noted on imaging, likely cause of CAP -elevated procalcitonin -comfort care (7) Primary pancreatic cancer with metastasis to other site: Plan: -advanced disease widely metastatic throughout liver, possibly with spread to lungs -had 2 doses of chemotherapy that was difficult to tolerate -comfort care (8) Pneumonia: Plan: -noted on imaging, likely cause of respiratory failure -elevated procalcitonin -comfort care (9) Hx of CABG: Plan: -noted, see above (10) Elevated LFTs: Plan: -noted, see above (11) Hx of pulmonary embolus: Plan: -continue eliquis (12) Atrial ectopy: Plan: -appears to be new onset -appreciate cardiology recommendations -comfort care (13) Pancytopenia: Plan: -in setting of chemotherapy, numerous comorbidities, active malignancy Plan I spent a total of 55 minutes in direct patient care, including [id number] time with the patient and/or family, reviewing medical records, ordering and reviewing diagnostic tests, and coordinating care with other healthcare providers. This time includes: history taking, physical examination, medical decision making, counseling, ECG interpretation, imaging interpretation, lab interpretation, orders, and education, excluding time spent in the performance of separately billed services. Admission and Anticipated Discharge Date Admission Date: April 25, 2024 Subjective Patient seen and examined at bedside. Patient is not doing well today. In the morning, he said he was feeling uncomfortable and not well overall. At that time he said he was open to giving it 1 more day of medical management before transitioning to a more comfort care focused approach. In the afternoon however his mental status changed and he began showing signs of terminal decline (weak radial pulse, flattened nasolabial folds, mottling, breathing changes) and at that time family opted to have a more comfort care focused approach. Decided by KIMBERLEY Wills and rest of family. Review of Systems Review of Systems: CONSTITUTIONAL: fatigue, weakness EYES: Patient denies any visual symptoms. EARS, NOSE, AND THROAT: No difficulties with hearing. No symptoms of rhinitis or sore throat. CARDIOVASCULAR: Patient denies chest pains, palpitations, orthopnea and paroxysm al nocturnal dyspnea. RESPIRATORY: shortness of breath, improved today GI: some abdominal pain, improved from yesterday : No urinary hesitancy or dribbling. No nocturia or urinary frequency. No abno rmal urethral discharge. MUSCULOSKELETAL: diffuse weakness, abdominal pain NEUROLOGIC: No chronic headaches, no seizures. Patient denies numbness, tingling or weakness. PSYCHIATRIC: Patient denies problems with mood disturbance. No problems with anxiety. ENDOCRINE: No excessive urination or excessive thirst. DERMATOLOGIC: Patient denies any rashes or skin changes. Physical Exam Physical Exam: Gen: A&O 3 (then afternoon 0) NAD, severe cachexia noted HEENT: NCAT, EOMI, not icteric. External ears normal. No rhinorrhea. Wet mucus membranes Neck: Supple, full range of motion, no observable masses, No meningeal sign. Lungs: No Respiratory distress. CV: tachycardic, irregular rhythm Abdomen: distended, fluid wave noted MSK: diffuse weakness noted Skin: No rashes, petechiae, lesions. Normal color per patient. Neuro: Normal Gait, Grossly intact. Psych: Appropriate for situation. Results & Data Results & Data Vital Signs (Past 12 Hours) Vital Signs Temp Pulse Pulse Resp BP BP Pulse Ox 04/28/24 11:59 37.0 C 133 H 18 85/55 L 95 04/28/24 09:56 132 H 25 H 102/66 92 04/28/24 08:24 89/60 L 04/28/24 07:51 36.5 C 136 H 18 85/51 L 91 04/28/24 07:38 78 20 91 O2 Del Method O2 Flow Rate 04/28/24 11:59 Room Air 04/28/24 09:56 Nasal Cannula 3 04/28/24 08:24 04/28/24 07:51 Nasal Cannula 3 04/28/24 07:38 Nasal Cannula 3 (4) Abdominal ascites Ascites type: malignant Qualified Code(s): R18.0 - Malignant ascites (8) Pneumonia Laterality: right Lung location: upper lobe of lung Pneumonia type: due to unspecified organism Qualified Code(s): J18.9 - Pneumonia, unspecified organism
[2024-04-28] MEDS: MoRPHine SULFATE 4 MG/ML 1 ML CARP\\VIAL IV PRN (19:47)
[2024-04-28] MEDS ORDERED: FORMOTEROL 20 MCG/2 ML VIAL NEB PRN (20:54)
[2024-04-28] MEDS ORDERED: BUDESONIDE 0.25 MG/2 ML VIAL (PULMICORT) NEB PRN (20:54)
[2024-04-28 22:31] LABS: A calco-baum cmplx NotReported Not Detected (NotDetected); Bact fragilis Not Reported Not Detected (NotDetected); Blood Culture Id Panel PCR Panel Negative (NotDetected); C auris Not Reported Not Detected (NotDetected); Calbicans Not Reported Not Detected (NotDetected); Candida glabrata Not Reported Not Detected (NotDetected); Candida krusei Not Reported Not Detected (NotDetected); Cneoformans/gatti Not Reported Not Detected (NotDetected); Cparapsilosis Not Reported Not Detected (NotDetected); E cloacae compx Not Reported Not Detected (NotDetected); Efaecalis Not Reported Not Detected (NotDetected); Efaecium Not Reported Not Detected (NotDetected); Enterobacterales Not Reported Not Detected (NotDetected); Escherichia coli Not Reported Not Detected (NotDetected); H influenzae Not Reported Not Detected (NotDetected); K aerogenes Not Reported Not Detected (NotDetected); Koxytoca Not Reported Not Detected (NotDetected); Kpneumoniae grp Not Reported Not Detected (NotDetected); Lmonocyt Not Reported Not Detected (NotDetected); N meningitidis Not Reported Not Detected (NotDetected); P aeruginosa Not Reported Not Detected (NotDetected); Proteus spp Not Reported Not Detected (NotDetected); Salmonella spp Not Reported Not Detected (NotDetected); Staph lugdunensis Not Reported Not Detected (NotDetected); Staph spp. Not Reported Not Detected (NotDetected); Staphaureus Not Reported Not Detected (NotDetected); Staphepi Not Reported Not Detected (NotDetected); Stenmaltophilia Not Reported Not Detected (NotDetected); Strep agal(GrpB) Not Reported Not Detected (NotDetected); Strep pneum Not Reported Not Detected (NotDetected); Strep pyog (GrpA) Not Reported Not Detected (NotDetected); Strep spp Not Reported Not Detected (NotDetected)
[2024-04-29] MEDS ORDERED: VANCOMYCIN 750 MG in SODIUM CHLORIDE 0.9% 250 ML IV SCH (02:00)
[2024-04-29] MEDS: LORazepam 2 MG/1 ML VIAL IV PRN (02:08)
[2024-04-29 12:55] VITALS: BP 102/66; PULSE 124
== END 2024-04-29 12:45 | disposition expired | DRG 871 ==
LOC: ED 17:42 → SUATTDRO 23:05 → 1E 23:05 → 4W 04-26 18:39